=== PATIENT | male | born 1980 | race Caucasian/White ===

== ENCOUNTER 2023-09-03 16:26 | Emergency (ER) | payer OTHER, SELFPAY ==
[2023-09-03] VITALS (12 sets, daily range): BP systolic 154–188; BP diastolic 94–100; PULSE 63–80; RESP 16–24; TEMP 36.7; O2SAT 95–99; BMI 35.7
--- NOTE | 2023-09-03 16:39 | ECG_ITS ---
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
--- NOTE | 2023-09-03 16:40 | ED_ITS ---
HPI - General Adult General Chief complaint: Headache Stated complaint: hypertension Time Seen by Provider: 09/03/23 16:36 Source: patient Mode of arrival: walk-in History of Present Illness HPI narrative: Patient is a 43-year-old male who presents to the emergency department for the evaluation of high blood pressure and headaches. He states he and his significant other recently moved from [place]. He does not have a local PCP to manage his blood pressure medications. He takes metoprolol and losartan but has not been able to get his third blood pressure medication locally in the area. He does not know what this medication is supposed to be. He has no chest pain, shortness of breath, visual loss, peripheral paresthesias. He states approximately every 6 months he has been having issues where he has uncontrolled breakthrough hypertension and headaches and this feels similar. No medications taken prior to arrival. Related Data Home Medications Medication Instructions Recorded Confirmed metoprolol tartrate 50 mg tablet 50 mg PO BID 09/03/23 09/03/23 Previous Rx's Medication Instructions Recorded nifedipine 90 mg tablet,extended 90 mg PO DAILY #14 tabs 09/03/23 release Allergies Allergy/AdvReac Type Severity Reaction Status Date / Time No Known Drug Allergies Allergy Verified 09/03/23 16:34 Review of Systems ROS Constitutional Denies: fever or chills Ears, nose, mouth, and throat Denies: throat pain Cardiovascular Denies: chest pain Respiratory Denies: shortness of breath Gastrointestinal Denies: nausea, vomiting or diarrhea Musculoskeletal Denies: back pain or neck pain Integumentary/Breast Denies: rash Neurological Reports: headache and dizziness; Denies: numbness in extremities, weakness in extremities or lack of coordination Endocrine Denies: excessive urination [facility] Social History Smoking status: Current every day smoker Exam Narrative Exam Narrative: Gen.: Awake, alert, in no distress Head: Normocephalic, atraumatic ENT: Moist mucous membranes Respiratory: No respiratory distress, lungs clear bilaterally Cardio: Regular rate and rhythm Extremities: Moves extremities equally Psych: Normal mood and affect Neuro: No focal neuro deficit Skin: Warm, dry, intact Constitutional Vital Signs, click to edit/add: Last Vital Signs Temp 98.1 F 09/03/23 16:30 Pulse 70 09/03/23 17:20 Resp 19 09/03/23 17:20 BP 154/94 H 09/03/23 17:31 Pulse Ox 96 09/03/23 17:20 O2 Del Method Room Air 09/03/23 17:15 Course Vital Signs Vital signs: Vital Signs Temperature 98.1 F 09/03/23 16:30 Pulse Rate 80 09/03/23 16:30 Respiratory Rate 20 09/03/23 16:30 Blood Pressure 188/100 H 09/03/23 16:30 Pulse Oximetry 99 09/03/23 16:30 Oxygen Delivery Method Room Air 09/03/23 16:30 Temperature 98.1 F 09/03/23 16:30 Pulse Rate 70 09/03/23 17:20 Respiratory Rate 19 09/03/23 17:20 Blood Pressure 154/94 H 09/03/23 17:31 Pulse Oximetry 96 09/03/23 17:20 Oxygen Delivery Method Room Air 09/03/23 17:15 Medical Decision Making MDM Narrative Medical decision making narrative: EKG, basic lab studies are unremarkable and patient was medicated with IV Vasotec with repeat blood pressure 154/94. He has no focal neurodeficits in the ER. He was treated with Reglan and Benadryl for headache. He is able to find on his phone that he was previously prescribed nifedipine 90 mg extended release tablets. He was given a 2-week prescription of this until he can see his new PCP in the area, he was given a referral for a local primary care providers that are taking new patients. Follow-up with primary care and return to the ER if symptoms change or worsen. Medical Records Medical records reviewed: Yes I reviewed the patient's medical records Lab Data Labs: Lab Results 09/03/23 Range/Units 16:53 WBC 10.5 (4.0-11.0) 10^3/uL RBC 4.73 (4.70-6.10) 10^6/uL Hgb 13.9 L (14.0-18.0) g/dL Hct 40.4 L (42.0-54.0) % MCV 85.4 (80.0-94.0) fL MCH 29.4 (25.9-34.0) pg MCHC 34.4 (29.9-35.2) g/dL RDW 13.0 (11.0-15.0) % Plt Count 264 (150-450) 10^3/uL MPV 10.7 (9.5-13.5) fL Neut % (Auto) 65.8 (43.0-75.0) % Lymph % (Auto) 24.2 (20.5-60.0) % [place] % (Auto) 6.9 (1.7-12.0) % Eos % (Auto) 2.1 (0.9-7.0) % Baso % (Auto) 0.7 (0.2-2.0) % Neut # (Auto) 6.9 H (1.4-6.5) 10^3/uL Lymph # (Auto) 2.6 (1.2-3.8) 10^3/uL [place] # (Auto) 0.7 (0.3-0.8) 10^3/uL Eos # (Auto) 0.2 (0.0-0.7) 10^3/uL Baso # (Auto) 0.1 (0.0-0.1) 10^3/uL Abs Immat Gran (auto) 0.03 (0.00-0.03) 10^3/uL Imm/Tot Granulo (auto) 0.3 (0.0-0.5) % Sodium 136 (136-145) mmol/L Potassium 4.0 (3.5-5.1) mmol/L Chloride 104 (98-107) mmol/L Carbon Dioxide 23.8 (21.0-32.0) mmol/L Anion Gap 12.2 BUN 12.0 (7.0-18.0) mg/dL Creatinine 0.71 (0.70-1.30) mg/dL Est GFR ( Amer) >60 (>=60) Est GFR (Non-Af Amer) >60 (>=60) BUN/Creatinine Ratio 16.9 Glucose 178 H (74-106) mg/dL Calcium 8.5 (8.5-10.1) mg/dL Total Bilirubin 0.3 (0.2-1.0) mg/dL AST 16 (15-37) U/L ALT 24 (16-63) U/L Alkaline Phosphatase 72 (46-116) U/L Total Protein 7.3 (6.4-8.2) g/dL Albumin 3.5 (3.4-5.0) g/dL Globulin 3.8 g/dL Albumin/Globulin Ratio 0.9 ECG Data Attestation: I personally reviewed and interpreted this ECG as follows: (Normal sinus rhythm at a rate of 69, no acute ST elevation or ectopy. EKG reviewed by attending physician) Discharge Plan Discharge Chief Complaint: Headache Clinical Impression: Hypertension Patient Disposition: Home, Self-Care Time of Disposition Decision: 17:40 Condition: Good Prescriptions / Home Meds: New nifedipine 90 mg tablet extended release 90 mg PO DAILY Qty: 14 0RF No Action metoprolol tartrate 50 mg tablet 50 mg PO BID Instructions: Hypertension (ED) Stand Alone Forms: Portal Instructions Referrals: Physician,Non-Staff, MD [Primary Care Provider] - 1 week
[2023-09-03] MEDS: DIPHENHYDRAMINE HCL 50 MG/ML (1ML) VIAL 25 MG IV (17:00)
[2023-09-03] MEDS: METOCLOPRAMIDE HCL 10 MG/2 ML VIAL IVP (17:00)
[2023-09-03 17:01] LABS: Basophils Absolute Auto 0.1 10^3/uL (0.0-0.1); Basophils Percent Auto 0.7 % (0.2-2.0); Eosinophils Absolute Auto 0.2 10^3/uL (0.0-0.7); Eosinophils Percent Auto 2.1 % (0.9-7.0); Hematocrit 40.4 % (42.0-54.0); Hemoglobin 13.9 g/dL (14.0-18.0); Immature Granulocytes Abs Auto 0.03 10^3/uL (0.00-0.03); Immature Granulocytes Pct Auto 0.3 % (0.0-0.5); Lymphocytes Absolute Auto 2.6 10^3/uL (1.2-3.8); Lymphocytes Percent Auto 24.2 % (20.5-60.0); Mean Corpuscular HGB Conc 34.4 g/dL (29.9-35.2); Mean Corpuscular Hemoglobin 29.4 pg (25.9-34.0); Mean Corpuscular Volume 85.4 fL (80.0-94.0); Mean Platelet Volume 10.7 fL (9.5-13.5); Monocytes Absolute Auto 0.7 10^3/uL (0.3-0.8); Monocytes Percent Auto 6.9 % (1.7-12.0); Neutrophils Absolute Auto 6.9 10^3/uL (1.4-6.5); Neutrophils Percent Auto 65.8 % (43.0-75.0); Platelet Count 264 10^3/uL (150-450); Red Blood Count 4.73 10^6/uL (4.70-6.10); White Blood Count 10.5 10^3/uL (4.0-11.0)
[2023-09-03] MEDS: ENALAPRILAT DIHYDRATE 1.25 MG/ML VIAL IV (17:01)
[2023-09-03 17:15] LABS: Alanine Aminotransferase 24 U/L (16-63); Albumin Globulin Ratio 0.9; Albumin Level 3.5 g/dL (3.4-5.0); Alkaline Phosphatase 72 U/L (46-116); Anion Gap 12.2; Aspartate Amino Transferase 16 U/L (15-37); BUN Creatinine Ratio 16.9; Bilirubin Total 0.3 mg/dL (0.2-1.0); Calcium 8.5 mg/dL (8.5-10.1); Carbon Dioxide 23.8 mmol/L (21.0-32.0); Chloride 104 mmol/L (98-107); Estimated GFR (African America >60 (>=60); Estimated GFR (Non-African Ame >60 (>=60); Globulin 3.8 g/dL; Glucose 178 mg/dL (74-106); Sodium 136 mmol/L (136-145); Total Protein 7.3 g/dL (6.4-8.2)
== END 2023-09-03 17:51 | disposition home or self-care (01) ==
PROVIDERS: Physician Assistant; Emergency Provider Emergency Medicine
DX: I10 Essential (primary) hypertension (principal); R51.9 Headache, unspecified; Z79.899 Other long term (current) drug therapy; F17.210 Nicotine dependence, cigarettes, uncomplicated
CPT/HCPCS: 36415; 80053; 85025; 93005; 96374; 96375; 99285; J1200; J2765

== ENCOUNTER 2023-09-25 15:11 | Emergency (ER) | payer OTHER, SELFPAY ==
[2023-09-25 15:21] VITALS: BP 217/100; PULSE 85; RESP 20; TEMP 36.5; O2SAT 96; BMI 38.0
--- OUTSIDE RECORDS SUMMARY | 2023-09-25 15:32 | XMS_ITS | CCD ---
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 Comment on above: Performed By: #### B MPX, TROPI, DIME, CDP #### [address] [place], [place] [id number] Back Tufter: Soraya Simpson MD MCV (RBC) [Entitic vol] 87.3 fL Normal 82.6-102.9 [facility] Comment on above: Performed By: #### B MPX, TROPI DIME, CDP #### [address] [place], [place] [id number] Back Tufter: Soraya Simpson MD NRBC Automated 0.0 per 100 WBC Normal 0.0 [facility] Comment on above: Performed By: #### B MPX, TROPI, DIME, CDP #### [address] [place], [facility]83 Back Tufter: Soraya Simpson MD Platelet mean volume (Bld) [Entitic vol] 10.2 fL Normal 8.1-13.5 [facility] Comment on above: Performed By: #### B MPX, TROPI DIME, CDP #### [address] [place], [facility]83 Back Tufter: Soraya Simpson MD Platelets (Bld) [#/Vol] 290 10*3/uL Normal 138-453 [facility] Comment on above: Performed By: #### B MPX, TROPI, DIME, CDP #### [address] [place], [place] [id number] Back Tufter: Soraya Simpson MD RBC (Bld) [#/Vol] 5.28 10*6/uL Normal 4.21-5.77 [facility] Comment on above: Performed By: #### B MPX, TROPI, DIME, CDP #### [address] [place], [place] [id number] Back Tufter: Soraya Simpson MD WBC (Bld) [#/Vol] 14.7 10*3/uL High 3.5-11.3 [facility] Comment on above: Performed By: #### B MPX, TROPI, DIME, CDP #### [facility] [address] [place] [address] Back Tufter: Soraya Simpson MD Auto Diff Performed NOT REPORTED Normal [facility] Comment on above: Performed By: #### B MPX, TROPI, DIME, CDP #### [facility] [address] [place] [address] Back Tufter: Soraya Simpson MD Platelet Comment NOT REPORTED Normal [facility] Comment on above: Performed By: #### B MPX, TROPI, DIME, CDP #### [address] [place] [address] Back Tufter: Soraya Simpson MD RBC morphology finding Nom (Bld) NOT REPORTED Normal [facility] Comment on above: Performed By: #### B MPX, TROPI, DIME, CDP #### [facility] [address] [place] [address] [place] [address] Back Tufter: Soraya Simpson MD WBC Morphology NOT REPORTED Normal [facility] Comment on above: Performed By: #### B MPX, TROPI, DIME, CDP #### [facility] [address] [place] [address] [place] [address] Back Tufter: Soraya Simpson MD COVID-19, RapidOrdered By: Trinidad Kwok on 06-09-2021 SARS-CoV-2 (COVID-19) RNA FERMIN+probe Ql (Unsp spec) Not detected Not Detected [facility] Work Phone: Comment on above: Rapid NAAT: The specimen is NEGATIVE for SARS-CoV-2, the novel coronavirus associated with COVID-19. The ID NOW COVID-19 assay is designed to detect the virus that causes COVID-19 in patients with signs and symptoms of infection who are suspected of COVID-19. An individual without symptoms of COVID-19 and who is not shedding SARS-CoV-2 virus would expect to have a negative (not detected) result in this assay. Negative results should be treated as presumptive and, if inconsistent with clinical signs and symptoms or necessary for patient management, should be tested with an alternative molecular assay. Negative results do not preclude SARS-CoV-2 infection and should not be used as the sole basis for patient management decisions. Fact sheet for Healthcare Providers: https://www.fda.gov/media/039115/download Fact sheet for Patients: https://www.fda.gov/media/130678/download Methodology: Isothermal Nucleic Acid Amplification Specimen Description .NASOPHARYNGEAL SWAB [facility] [employer] Phone: [facility] [employer] Phone: D-Dimer Teston 06-09-2021 D-Dimer Test <0.27 Normal 0.00-0.59 [facility] Comment on above: Result Comment: When combined with a low clinical probability, a D dimer value of <0.50 mg/L FEU is considered negative for DVT and PE (negative predictive value of 98%, sensitivity of 97%). If this test is not being used to help rule out DVT and PE, then the following reference range should be utilized: 0.00 - 0.59 mg/L FEU. The D-Dimer assay is intended for use as an aid in the diagnosis of venous thromboembolism (DVT and PE) and the results should be interpreted in conjunction with the patient's medical history, clinical presentation, and other findings. Elevated levels of D-dimer activity can be seen in any state of coagulation activation and is not recommended in patients with therapeutic dose anticoagulant therapy for >24 hours, fibrinolytic therapy within the previous 7 days, trauma or surgery within the previous 4 weeks, disseminated malignancies, aortic aneurysm, sepsis, severe infections, pneumonia, severe skin infections, liver cirrhosis, advanced age, coronary disease, diabetes, and . A very low percentage of patients with DVT may yield D-dimer results below the cutoff of 0.5 mg/L FEU. This is known to be more prevalent in patients with distal DVT. Performed By: #### B MPRozEMELY DIME, CDP #### [facility] [address] [place] [address] Back Tufter: Soraya Simpson MD D-Dimer, QuantitativeOrdered By: Micheal Kwok on 06-09-2021 D-Dimer, Quant <0.27 [employer] Phone: Comment on above: When combined with a low clinical probability, a D dimer value of <0.50 mg/L FEU is considered negative for DVT and PE (negative predictive value of 98%, sensitivity of 97%). If this test is not being used to help rule out DVT and PE, then the following reference range should be utilized: 0.00 - 0.59 mg/L FEU. The D-Dimer assay is intended for use as an aid in the diagnosis of venous thromboembolism (DVT and PE) and the results should be interpreted in conjunction with the patient's medical history, clinical presentation, and other findings. Elevated levels of D-dimer activity can be seen in any state of coagulation activation and is not recommended in patients with therapeutic dose anticoagulant therapy for >24 hours, fibrinolytic therapy within the previous 7 days, trauma or surgery within the previous 4 weeks, disseminated malignancies, aortic aneurysm, sepsis, severe infections, pneumonia, severe skin infections, liver cirrhosis, advanced age, coronary disease, diabetes, and . A very low percentage of patients with DVT may yield D-dimer results below the cutoff of 0.5 mg/L FEU. This is known to be more prevalent in patients with distal DVT. [employer] Phone: Laboratory - Chemistry and C hemistry - challengeOrdered By: Micheal Kwok on 06-09-2021 GFR/1.73 sq M.predicted MDRD (S/P/Bld) [Vol rate/Area] [employer] Phone: Comment on above: Average GFR for 40-4 9 years old: 99 mL/min/1.73sq m Chronic Kidney Disease: <60 mL/min/1.73sq m Kidney failure: <15 mL/min/1.73sq m eGFR calculated using average adult body mass. Additional eGFR calculator available at: http://www.globalrph.UltiZen/multiple_crcl_2012.htm Stage 1: Some kidney damage normal GFR Stage 2: Mild kidney damage GFR 60-89 Stage 3: Moderate kidney damage GFR 30-59 Stage 4: Severe kidney damage GFR 15-29 Stage 5: Severe kidney damage GFR <15 ESRD - chronic treatment by dialysis or transplant [id number] 06-09-2021 SARS-CoV-2 (COVID-19) RNA FERMIN+probe Ql (Unsp spec) Not detected Normal NOTDET [facility] Comment on above: Result Comment: Rapid NAAT: The specimen is NEGATIVE for SARS-CoV-2, the novel coronavirus associated with COVID-19. The ID NOW COVID-19 assay is designed to detect the virus that causes COVID-19 in patients with signs and symptoms of infection who are suspected of COVID-19. An individual without symptoms of COVID-19 and who is not shedding SARS-CoV-2 virus would expect to have a negative (not detected) result in this assay. Negative results should be treated as presumptive and, if inconsistent with clinical signs and symptoms or necessary for patient management, should be tested with an alternative molecular assay. Negative results do not preclude SARS-CoV-2 infection and should not be used as the sole basis for patient management decisions. Fact sheet for Healthcare Providers: https://www.fda.gov/media/669481/download Fact sheet for Patients: https://www.fda.gov/media/652661/download Methodology: Isothermal Nucleic Acid Amplification Performed By: #### C OVRB #### [facility] [address] [place] [address] Back Tufter: Soraya Simpson MD Troponinon 06-09-2021 Troponin, High Sens 8 ng/L Normal 0-22 [facility] Comment on above: Result Comment: High Sensitivity Troponin values cannot be compared with other Troponin methodologies. Patients with high levels of Biotin oral intake (i.e >5mg/day) may have falsely decreased Troponin levels. Samples collected within 8 hours of biotin intake may require additional information for diagnosis. Performed By: #### B MPX, TROPI, DIME, CDP #### [facility] [address] [place] [id number] Back Tufter: Soraya Simpson MD Troponin Interp. NOT REPORTED Normal [facility] Comment on above: Performed By: #### B MPX, TROPI, DIME, CDP #### [facility] [address] [place], [place] [phone] Back Tufter: Soraya Simpson MD Troponin T NOT REPORTED Normal <0.03 [facility] Comment on above: Performed By: #### B MPX, TROPI, DIME, CDP #### [facility] [address] [place], [place] [phone] Back Tufter: Soraya Simpson MD TroponinOrdered By: Micheal Kwok on 06-09-2021 Troponin Interp NOT REPORTED [employer] Phone: Troponin T NOT REPORTED <0.03 ng/mL [facility] Phone: Troponin, High Sensitivity 8 ng/L 0 - 22 ng/L [facility] [employer] Phone: Comment on above: High Sensitivity Troponin values cannot be compared with other Troponin methodologies. Patients with high levels of Biotin oral intake (i.e >5mg/day) may have falsely decreased Troponin levels. Samples collected within 8 hours of biotin intake may require additional information for diagnosis. [employer] Phone: XR CHEST PORTABLEon 06-09-20 XR CHEST PORTABLE EXAMINATION: ONE XRAY VIEW OF THE CHEST 06/09/2021 5:11 am COMPARISON: Chest portable June 07, 2021. HISTORY: ORDERING SYSTEM PROVIDED HISTORY: Cough TECHNOLOGIST PROVIDED HISTORY: Cough FINDINGS: The heart is normal in size and configuration. The mediastinal contours are within normal limits. The lungs are well aerated. The pleural surfaces are normal and no evidence of a pleural effusion is seen. Bones and soft tissues are unremarkable. IMPRESSION: Unremarkable single portable AP chest. Interpreted by: Sadi Olmedo MD Signed by: Sadi Olmedo MD 06/09/21 Final result Normal [facility] XR CHEST PORTABLEOrdered By: Micheal Kwok on 06-09-2021 Unremarkable single portable AP chest. [employer] Phone: EXAMINATION: ONE XRA Y VIEW OF THE CHEST 06/09/2021 5:11 am COMPARISON: Chest portable June 07, 2021. HISTORY: ORDERING SYSTEM PROVIDED HISTORY: Cough TECHNOLOGIST PROVIDED HISTORY: Cough FINDINGS: The heart is normal in size and configuration. The mediastinal contours are within normal limits. The lungs are well aerated. The pleural surfaces are normal and no evidence of a pleural effusion is seen. Bones and soft tissues are unremarkable. [employer] Phone: Jasen, pn Incoming Radiant Results From [employer] - 06/09/2021 6:01 AM EDT EXAMINATION: ONE XRAY VIEW OF THE CHEST 06/09/2021 5:11 am COMPARISON: Chest portable June 07, 2021. HISTORY: ORDERING SYSTEM PROVIDED HISTORY: Cough TECHNOLOGIST PROVIDED HISTORY: Cough FINDINGS: The heart is normal in size and configuration. The mediastinal contours are within normal limits. The lungs are well aerated. The pleural surfaces are normal and no evidence of a pleural effusion is seen. Bones and soft tissues are unremarkable. IMPRESSION: Unremarkable single portable AP chest. [employer] Phone: [employer] Phone: COVID-19, RapidOrdered By: Geovani Tapia on 06-07-2021 SARS-CoV-2 (COVID-19) RNA FERMIN+probe Ql (Unsp spec) Not detected Not Detected [employer] Phone: Comment on above: Rapid NAAT: The specimen is NEGATIVE for SARS-CoV-2, the novel coronavirus associated with COVID-19. The ID NOW COVID-19 assay is designed to detect the virus that causes COVID-19 in patients with signs and symptoms of infection who are suspected of COVID-19. An individual without symptoms of COVID-19 and who is not shedding SARS-CoV-2 virus would expect to have a negative (not detected) result in this assay. Negative results should be treated as presumptive and, if inconsistent with clinical signs and symptoms or necessary for patient management, should be tested with an alternative molecular assay. Negative results do not preclude SARS-CoV-2 infection and should not be used as the sole basis for patient management decisions. Fact sheet for Healthcare Providers: https://www.fda.gov/media/314865/download Fact sheet for Patients: https://www.fda.gov/media/604296/download Methodology: Isothermal Nucleic Acid Amplification Specimen Description .NASOPHARYNGEAL SWAB [facility] [employer] Phone: [facility] [employer] Phone: [id number] 06-07-2021 SARS-CoV-2 (COVID-19) RNA FERMIN+probe Ql (Unsp spec) Not detected Normal [facility] Comment on above: Result Comment: Rapid NAAT: The specimen is NEGATIVE for SARS-CoV-2, the novel coronavirus associated with COVID-19. The ID NOW COVID-19 assay is designed to detect the virus that causes COVID-19 in patients with signs and symptoms of infection who are suspected of COVID-19. An individual without symptoms of COVID-19 and who is not shedding SARS-CoV-2 virus would expect to have a negative (not detected) result in this assay. Negative results should be treated as presumptive and, if inconsistent with clinical signs and symptoms or necessary for patient management, should be tested with an alternative molecular assay. Negative results do not preclude SARS-CoV-2 infection and should not be used as the sole basis for patient management decisions. Fact sheet for Healthcare Providers: https://www.fda.gov/media/830141/download Fact sheet for Patients: https://www.fda.gov/media/523111/download Methodology: Isothermal Nucleic Acid Amplification Performed By: #### C OVRB #### [facility] [address] [place] [address] Back Tufter: Soraya Simpson MD XR CHEST PORTABLEon 06-07-20 21 XR CHEST PORTABLE EXAMINATION: ONE XRAY VIEW OF THE CHEST 06/07/2021 2:53 pm COMPARISON: 02/17/2018 HISTORY: ORDERING SYSTEM PROVIDED HISTORY: cough, chest pain TECHNOLOGIST PROVIDED HISTORY: cough, chest pain FINDINGS: The lungs are without acute focal process. There is no effusion or pneumothorax. The cardiomediastinal silhouette is without acute process. The osseous structures are without acute process. IMPRESSION: No acute process. Interpreted by: Ger Morin MD Signed by: Ger Morin MD 06/07/21 Final result Normal [facility] XR CHEST PORTABLEOrdered By: Linette Tapia on 06-07-2021 No acute process. [employer] Phone: EXAMINATION: ONE XRA Y VIEW OF THE CHEST 06/07/2021 2:53 pm COMPARISON: 02/17/2018 HISTORY: ORDERING SYSTEM PROVIDED HISTORY: cough, chest pain TECHNOLOGIST PROVIDED HISTORY: cough, chest pain FINDINGS: The lungs are without acute focal process. There is no effusion or pneumothorax. The cardiomediastinal silhouette is without acute process. The osseous structures are without acute process. [employer] Phone: Jasen, [facility] Incoming Radiant Results From [employer] - 06/07/2021 6:16 PM EDT EXAMINATION: ONE XRAY VIEW OF THE CHEST 06/07/2021 2:53 pm COMPARISON: 02/17/2018 HISTORY: ORDERING SYSTEM PROVIDED HISTORY: cough, chest pain TECHNOLOGIST PROVIDED HISTORY: cough, chest pain FINDINGS: The lungs are without acute focal process. There is no effusion or pneumothorax. The cardiomediastinal silhouette is without acute process. The osseous structures are without acute process. IMPRESSION: No acute process. [employer] Phone: [facility] Phone: CBC AUTO DIFFon 02-11-2021 BASO # 0.1 103/ul Normal 0.0-0.1 [facility] Comment on above: Performed By: #### C BC #### [facility] [address] [place], [place] [address] Lora Waleska Basophils/100 WBC (Bld) 0.5 % Normal 0.2-2.0 [facility] Comment on above: Performed By: #### C BC #### [facility] [address] [place], [place] [address] Lora Waleska EO # 0.1 103/ul Normal 0.0-0.7 [facility] Comment on above: Performed By: #### C BC #### [facility] [address] [place] [address] Lora Waleska Eosinophils/100 WBC (Bld) 1.0 % Normal 0.9-7.0 [facility] Comment on above: Performed By: #### C BC #### [facility] [address] [place] [address] Lora Waleska Erythrocyte distribution width (RBC) [Ratio] 13.3 % Normal 11.0-15.0 [facility] Comment on above: Performed By: #### C BC #### [facility] [address] [place] [address] Lora Waleska Hematocrit (Bld) [Volume fraction] 42.5 % Normal 42.0-54.0 [facility] Comment on above: Performed By: #### C BC #### [facility] [address] [place] [address] Lora Waleska Hemoglobin (Bld) [Mass/Vol] 14.5 g/dL Normal 14.0-18.0 [facility] Comment on above: Performed By: #### C BC #### [facility] [address] [place] [address] Lora Waleska IG # 0.05 10e3/ul Critically high 0.00-0.03 [facility] Comment on above: Performed By: #### C BC #### [facility] [address] [place] [address] Lora Waleska IG % 0.3 % Normal 0.0-0.5 [facility] Comment on above: Performed By: #### C BC #### [facility] [address] [place], [place] [address] Lora Waleska LYMPH # 3.4 103/ul Normal 1.2-3.8 [facility] Comment on above: Performed By: #### C BC #### [facility] [address] [place] [address] Lora Waleska Lymphocytes/100 WBC (Bld) 23.1 % Normal 20.5-60.0 [facility] Comment on above: Performed By: #### C BC #### [facility] [address] [place] [address] Lora Waleska MANUAL DIFF REQ NO Normal [facility] Comment on above: Performed By: #### C BC #### [facility] [address] [place] [address] Loralyn Galeano MCH (RBC) [Entitic mass] 29.1 pg Normal 25.9-34.0 [facility] Comment on above: Performed By: #### C BC #### [facility] [address] [place], [place] [address] Loralyn Galeano MCHC (RBC) [Mass/Vol] 34.1 g/dL Normal 29.9-35.2 [facility] Comment on above: Performed By: #### C BC #### [facility] [address] [place], [place] [address] Loralyn Spenceen MCV (RBC) [Entitic vol] 85.3 fL Normal 80.0-94.0 [facility] Comment on above: Performed By: #### C BC #### [facility] [address] [place], [place] [address] Lora Waleska MONO # 0.9 103/ul Critically high 0.3-0.8 [facility] Comment on above: Performed By: #### C BC #### [facility] [address] [place], [place] [address] Lora Waleska Monocytes/100 WBC (Bld) 6.5 % Normal 1.7-12.0 [facility] Comment on above: Performed By: #### C BC #### [facility] [address] [place], [place] [address] Lora Waleska NEUT # 10.0 103/ul Critically high 1.4-6.5 [facility] Comment on above: Performed By: #### C BC #### [facility] [address] [place], [place] [address] Lora Waleska Neutrophils/100 WBC (Bld) 68.6 % Normal 43.0-75.0 [facility] Comment on above: Performed By: #### C BC #### [facility] [address] [place], [place] [address] Lora Galeano Platelet mean volume (Bld) [Entitic vol] 11.2 fL Normal 9.5-13.5 [facility] Comment on above: Performed By: #### C BC #### [facility] [address] [place] [address] Lora Galeano PLT 261 103/ul Normal 150-450 [facility] Comment on above: Performed By: #### C BC #### [facility] [address] [place] [address] Lora Spenceen RBC 4.98 106/ul Normal 4.70-6.10 [facility] Comment on above: Performed By: #### C BC #### [facility] [address] [place] [address] Lora Spenceen WBC 14.5 103/ul Critically high 4.0-11.0 [facility] Comment on above: Performed By: #### C BC #### [facility] [address] [place] [address] LSPINE WO CONon CT LSPINE WO CON EXAMINATION: CT LSPINE WO CON HISTORY: DORSALGIA, UNSPECIFIED COMPARISON: No relevant comparison available. TECHNIQUE: Axial, Coronal, and Sagittal images were created without IV contrast. Dose reduction techniques were achieved by using automated exposure control and/or adjustment of mA and/or kV according to patient size and/or use of iterative reconstruction technique. FINDINGS: VERTEBRAL BODIES: Normal alignment with no acute fracture or spondylolisthesis. Posterior decompression and bilateral transpedicular fusion L4-L5. Mild diffuse degenerative spondylosis and facet osteoarthropathy FACET JOINTS: No disruption or abnormal widening. DISCS: Multilevel disc space narrowing most significant at L3-L4 and L5-S1. Intervertebral spacer L5-S1 CENTRAL CANAL: No spinal stenosis or evidence of hemorrhage. PARASPINAL AREA: No definite visible mass. Nonobstructing left nephrolithiasis. IMPRESSION: No acute abnormality Electronically authenticated by: SORAYA STEWART Date: 2021-02-11 16:04 Normal [facility] PROF CHEM 8 (BAS METB)on Anion gap [Moles/Vol] 14.3 mmol/L Normal [facility] Comment on above: Performed By: #### B MP #### [facility] [address] [place] [address] Lora Waleska Calcium [Mass/Vol] 8.8 mg/dL Normal 8.4-10.2 [facility] Comment on above: Performed By: #### B MP #### [facility] [address] [place] [address] Lora Waleska Chloride [Moles/Vol] 104 mmol/L Normal 98-107 [facility] Comment on above: Performed By: #### B MP #### [facility] [address] [place] [address] Lora Waleska CO2 [Moles/Vol] 24.3 mmol/L Normal 22.0-30.0 [facility] Comment on above: Performed By: #### B MP #### [facility] [address] [place] [address] Lora Waleska Creatinine [Mass/Vol] 0.79 mg/dL Normal 0.66-1.25 [facility] Comment on above: Performed By: #### B MP #### [facility] [address] [place] [address] Lora Waleska EGFR-AF TURKISH >60 Normal >=60 [facility] Comment on above: Performed By: #### B MP #### [facility] [address] [place] [address] Lora Waleska EGFR-NON AF TURKISH >60 Normal >=60 [facility] Comment on above: Performed By: #### B MP #### [facility] [address] [place] [address] Lora Waleska Glucose [Mass/Vol] 107 mg/dL Critically high 74-106 T [facility] Comment on above: Performed By: #### B MP #### [facility] [address] [place] [address] Lora Waleska Potassium [Moles/Vol] 3.6 mmol/L Normal 3.4-5.0 [facility] Comment on above: Performed By: #### B MP #### [facility] [address] [place], [place] [address] Lora Waleska Sodium [Moles/Vol] 139 mmol/L Normal 137-145 [facility] Comment on above: Performed By: #### B MP #### [facility] [address] [place], [place] [address] Lora Waleska Urea nitrogen [Mass/Vol] 9.0 mg/dL Normal 9.0-20.0 [facility] Comment on above: Performed By: #### B MP #### [facility] [address] [place], [place] [address] Lora Waleska Urea nitrogen/Creatinine [Mass ratio] 11.4 mg/mg Normal [facility] Comment on above: Performed By: #### B MP #### [facility] [address] [place], [place] [address] Lora Galeano Amylaseon 06-13-2019 Amylase [Catalytic activity/Vol] 58 U/L Normal 28-100 [facility] Comment on above: Performed By: #### C BC, PT, CMPX, ALEJANDRO, LIP, MG, KAM, TRIG #### [facility] [address] [place], [place] [id number] Back Tufter: Sadi Gambino MD #### IOCAL #### [facility] [address] [place], [place] [id number] Back Tufter: hSa Nicholson MD Amylase [Catalytic activity/Vol] 58 U/L 28 - 100 U/L [place], [place] CBC Auto Differentialon Basophils (Bld) [#/Vol] 0.04 10*3/uL [place] Basophils/100 WBC (Bld) 0 % 0 - 2 % [place] Differential Type NOT REPORTED [place] Eosinophils (Bld) [#/Vol] 10*3/uL [place] Eosinophils/100 WBC (Bld) 0 % Low 1 - 4 % [place] Erythrocyte distribution width (RBC) [Ratio] 12.2 % 11.8 - 14.4 % [place] Hematocrit (Bld) [Volume fraction] 40.6 % Low 40.7 - 50.3 % [place] Hemoglobin (Bld) [Mass/Vol] 14.7 g/dL 13 - 17 g/dL [place] Immature granulocytes (Bld) [#/Vol] 0.10 10*3/uL [place] Immature granulocytes (Bld) [#/Vol] 1 % High 0 [place] Interpretation and review of laboratory results Abnormal [place] Lymphocytes (Bld) [#/Vol] 2.50 10*3/uL [place] Lymphocytes/100 WBC (Bld) 16 % Low 24 - 43 % [place] MCH (RBC) [Entitic mass] 30.9 pg 25.2 - 33.5 pg [place] MCHC (RBC) [Mass/Vol] 36.2 g/dL High 28.4 - 34.8 g/dL [place] MCV (RBC) [Entitic vol] 85.5 fL 82.6 - 102.9 fL [place] Monocytes (Bld) [#/Vol] 1.08 10*3/uL [place] Monocytes/100 WBC (Bld) 7 % 3 - 12 % [place] Platelet mean volume (Bld) [Entitic vol] 10.7 fL 8.1 - 13.5 fL [place] Platelets (Bld) [#/Vol] 299 10*3/uL [place] Platelets (Bld) [#/Vol] NOT REPORTED [place] RBC (Bld) [#/Vol] 4.75 10*6/uL 4.21 - 5.7 7 m/uL [place] RBC morphology finding Nom (Bld) NOT REPORTED [place] Segmented neutrophils/100 WBC (Bld) 77 % High 36 - 65 % [place] Segs Absolute 12.16 High [place] WBC (Bld) [#/Vol] 15.9 10*3/uL High [facility] [place] WBC (Bld) [#/Vol] 0.0 10*3/uL 0.0 per 10 0 WBC [place] WBC Morphology NOT REPORTED [place] CBC with Diffon 06-13-2019 Abs. Basophil 0.04 k/uL Normal 0.00-0.20 [facility] Comment on above: Performed By: #### C BC, PT, CMPX, ALEJANDRO, LIP, MG, KAM, TRIG #### [facility] [place] [address] Back Tufter: Sadi Gambino MD #### IOCAL #### [address] [address] Back Tufter: Sha Nicholson MD Abs.Imm.Granulocyte 0.10 k/uL Normal 0.00-0.30 [facility] Comment on above: Performed By: #### C BC, PT, CMPX, ALEJANDRO, LIP, MG, KAM, TRIG #### [facility] [address] [place] [address] Back Tufter: Sadi Gambino MD #### IOCAL #### [address] [address] Back Tufter: Sha Nicholson MD Abs.Neutrophil (Seg) 12.16 k/uL High 1.50-8.10 [facility] Comment on above: Performed By: #### C BC, PT, CMPX, ALEJANDRO, LIP, MG, KAM, TRIG #### [facility] [address] [place] [address] Back Tufter: Sadi Gambino MD #### IOCAL #### [address] [address] Back Tufter: Sha Nicholson MD Basophils/100 WBC (Bld) 0 % Normal 0-2 M [facility] Comment on above: Performed By: #### C BC, PT, CMPX, ALEJANDRO, LIP, MG, KAM, TRIG #### [facility] [address] [place] [address] Back Tufter: Sadi Gambino MD #### IOCAL #### [address] [address] Back Tufter: Sha Nicholson MD Eosinophils (Bld) [#/Vol] 10*3/uL Normal 0.00-0.44 [facility] Comment on above: Performed By: #### C BC, PT, CMPX, ALEJANDRO, LIP, MG, KAM, TRIG #### [facility] [address] [place] [address] Back Tufter: Sadi Gambino MD #### IOCAL #### [address] [address] Back Tufter: Sha Nicholson MD Eosinophils/100 WBC (Bld) 0 % Low 1-4 [facility] Comment on above: Performed By: #### C BC, PT, CMPX, ALEJANDRO, LIP, MG, KAM, TRIG #### [facility] [address] [place] [address] Back Tufter: Sadi Gambino MD #### IOCAL #### [address] [address] Back Tufter: Sha Nicholson MD Erythrocyte distribution width (RBC) [Ratio] 12.2 % Normal 11.8-14.4 [facility] Comment on above: Performed By: #### C BC, PT, CMPX, ALEJANDRO, LIP, MG, KAM, TRIG #### [facility] [address] [place] [address] Back Tufter: Sadi Gambino MD #### IOCAL #### [address] [address] Back Tufter: Sha Nicholson MD Hematocrit (Bld) [Volume fraction] 40.6 % Low 40.7-50.3 [facility] Comment on above: Performed By: #### C BC, PT, CMPX, ALEJANDRO, LIP, MG, KAM, TRIG #### [facility] [address] [place] [address] Back Tufter: Sadi Gambino MD #### IOCAL #### [place] [address] Back Tufter: Sha Nicholson MD Hemoglobin (Bld) [Mass/Vol] 14.7 g/dL Normal 13.0-17.0 [facility] Comment on above: Performed By: #### C BC, PT, CMPX, ALEJANDRO, LIP, MG, KAM, TRIG #### [facility] [address] [place] [address] Back Tufter: Sadi Gambino MD #### IOCAL #### [place] [address] Back Tufter: Sha Nicholson MD Immature granulocytes (Bld) [#/Vol] 1 % High 0 [facility] Comment on above: Performed By: #### C BC, PT, CMPX, ALEJANDRO, LIP, MG, KAM, TRIG #### [facility] [address] [place] [address] Back Tufter: Sadi Gambino MD #### IOCAL #### [place] [address] Back Tufter: Sha Nicholson MD Lymphocytes (Bld) [#/Vol] 2.50 10*3/uL Normal 1.10-3.70 [facility] Comment on above: Performed By: #### C BC, PT, CMPX, ALEJANDRO, LIP, MG, KAM, TRIG #### [facility] [address] [place] [address] Back Tufter: Sadi Gambino MD #### IOCAL #### [address] [address] Back Tufter: Sha Nicholson MD Lymphocytes/100 WBC (Bld) 16 % Low 24-43 [facility] Comment on above: Performed By: #### C BC, PT, CMPX, ALEJANDRO, LIP, MG, KAM, TRIG #### [facility] [address] [place] [address] Back Tufter: Sadi Gambino MD #### IOCAL #### [address] [address] Back Tufter: Sha Nicholson MD MCH (RBC) [Entitic mass] 30.9 pg Normal 25.2-33.5 [facility] Comment on above: Performed By: #### C BC, PT, CMPX, ALEJANDRO, LIP, MG, KAM, TRIG #### [facility] [address] [place] [address] Back Tufter: Sadi Gambino MD #### IOCAL #### [address] [address] Back Tufter: Sha Nicholson MD MCHC (RBC) [Mass/Vol] 36.2 g/dL High 28.4-34.8 [facility] Comment on above: Performed By: #### C BC, PT, CMPX, ALEJANDRO, LIP, MG, KAM, TRIG #### [facility] [address] [place] [address] Back Tufter: Sadi Gambino MD #### IOCAL #### [address] [address] Back Tufter: Sha Nicholson MD MCV (RBC) [Entitic vol] 85.5 fL Normal 82.6-102.9 M [facility] Comment on above: Performed By: #### C BC, PT, CMPX, ALEJANDRO, LIP, MG, KAM, TRIG #### [facility] [address] [place] [address] Back Tufter: Sadi Gambino MD #### IOCAL #### [address] [address] Back Tufter: Sha Nicholson MD Monocytes (Bld) [#/Vol] 1.08 10*3/uL Normal 0.10-1.20 [facility] Comment on above: Performed By: #### C BC, PT, CMPX, ALEJANDRO, LIP, MG, KAM, TRIG #### [facility] [address] [place] [address] Back Tufter: Sadi Gambino MD #### IOCAL #### [address] [address] Back Tufter: Sha Nicholson MD Monocytes/100 WBC (Bld) 7 % Normal 3-12 M [facility] Comment on above: Performed By: #### C BC, PT, CMPX, ALEJANDRO, LIP, MG, KAM, TRIG #### [facility] [address] [place] [address] Back Tufter: Sadi Gambino MD #### IOCAL #### [address] [address] Back Tufter: Sha Nicholson MD Neutrophil (Seg) 77 % High 36-65 [facility] [place] Comment on above: Performed By: #### C BC, PT, CMPX, ALEJANDRO, LIP, MG, KAM, TRIG #### [facility] [address] [place] [address] Back Tufter: Sadi Gambino MD #### IOCAL #### [address] [address] Back Tufter: Sha Nicholson MD NRBC Automated 0.0 per 100 WBC Normal 0.0 [facility] Comment on above: Performed By: #### C BC, PT, CMPX, ALEJANDRO, LIP, MG, KAM, TRIG #### [facility] [address] [place] [address] Back Tufter: Sadi Gambino MD #### IOCAL #### [address] [address] Back Tufter: Sha Nicholson MD Platelet mean volume (Bld) [Entitic vol] 10.7 fL Normal 8.1-13.5 [facility] Comment on above: Performed By: #### C BC, PT, CMPX, ALEJANDRO, LIP, MG, KAM, TRIG #### [facility] [place] [address] Back Tufter: Sadi Gambino MD #### IOCAL #### [address] [address] Back Tufter: Sha Nicholson MD Platelets (Bld) [#/Vol] 299 10*3/uL Normal 138-453 [facility] Comment on above: Performed By: #### C BC, PT, CMPX, ALEJANDRO, LIP, MG, KAM, TRIG #### [facility] [place] [address] Back Tufter: Sadi Gambino MD #### IOCAL #### [address] [address] Back Tufter: Sha Nicholson MD RBC (Bld) [#/Vol] 4.75 10*6/uL Normal 4.21-5.77 [facility] Comment on above: Performed By: #### C BC, PT, CMPX, ALEJANDRO, LIP, MG, KAM, TRIG #### [facility] [address] [place] [address] Back Tufter: Sadi Gambino MD #### IOCAL #### [address] [address] Back Tufter: Sha Nicholson MD WBC (Bld) [#/Vol] 15.9 10*3/uL High 3.5-11.3 [facility] Comment on above: Performed By: #### C BC, PT, CMPX, ALEJANDRO, LIP, MG, KAM, TRIG #### [facility] [address] [place] [address] Back Tufter: Sadi Gambino MD #### IOCAL #### [address] [address] Back Tufter: Sha Nicholson MD Auto Diff Performed NOT REPORTED Normal [facility] Comment on above: Performed By: #### C BC, PT, CMPX, ALEJANDRO, LIP, MG, KAM, TRIG #### [facility] [address] [place] [address] Back Tufter: Sadi Gambino MD #### IOCAL #### [address] [address] Back Tufter: Sha Nicholson MD Platelets (Bld) [#/Vol] NOT REPORTED Normal [facility] Comment on above: Performed By: #### C BC, PT, CMPX, ALEJANDRO, LIP, MG, KAM, TRIG #### [facility] [address] [place] [address] Back Tufter: Sadi Gambino MD #### IOCAL #### [address] [address] Back Tufter: Sha Nicholson MD RBC morphology finding Nom (Bld) NOT REPORTED Normal [facility] Comment on above: Performed By: #### C BC, PT, CMPX, ALEJANDRO, LIP, MG, KAM, TRIG #### [facility] [address] [place] [address] Back Tufter: Sadi Gambino MD #### IOCAL #### [address] [place] [place] [address] Back Tufter: Sha Nicholson MD WBC Morphology NOT REPORTED Normal [facility] Comment on above: Performed By: #### C BC, PT, CMPX, ALEJANDRO, LIP, MG, KAM, TRIG #### [facility] [address] [place], [place] [phone] Back Tufter: Sadi Gambino MD #### IOCAL #### [address] [address] Back Tufter: Sha Nicholson MD Comp Metab w/Bili Pron 06-13 (cont.) Normal [facility] Comment on above: Result Comment: Aver age GFR for 30-39 years old: 107 mL/min/1.73sq m Chronic Kidney Disease: <60 mL/min/1.73sq m Kidney failure: <15 mL/min/1.73sq m eGFR calculated using average adult body mass. Additional eGFR calculator available at: http://www.[employer].com/multiple_crcl_2012.htm Performed By: #### C BC, PT, CMPX, ALEJANDRO, LIP, MG, KAM, TRIG #### [facility] [address] [place] [address] Back Tufter: Sadi Gambino MD #### IOCAL #### [facility] [address] [place] [address] Back Tufter: Sha Nicholson MD Albumin [Mass/Vol] 4.3 g/dL Normal 3.5-5.2 [facility] Comment on above: Performed By: #### C BC, PT, CMPX, ALEJANDRO, LIP, MG, KAM, TRIG #### [facility] [address] [place] [address] Back Tufter: Sadi Gambino MD #### IOCAL #### [address] [address] Back Tufter: Sha Nicholson MD Alkaline Phos 91 U/L Normal 40-129 [facility] Comment on above: Performed By: #### C BC, PT, CMPX, ALEJANDRO, LIP, MG, KAM, TRIG #### [facility] [address] [place] [address] Back Tufter: Sadi Gambino MD #### IOCAL #### [address] [address] Back Tufter: Sha Nicholson MD ALT [Catalytic activity/Vol] 187 U/L High 5-41 [facility] Comment on above: Performed By: #### C BC, PT, CMPX, ALEJANDRO, LIP, MG, KAM, TRIG #### [facility] [address] [place] [address] Back Tufter: Sadi Gambino MD #### IOCAL #### [address] [address] Back Tufter: Sha Nicholosn MD Anion gap [Moles/Vol] 12 mmol/L Normal 9-17 [facility] Comment on above: Performed By: #### C BC, PT, CMPX, ALEJANDRO, LIP, MG, KAM, TRIG #### [facility] [address] [place] [address] Back Tufter: Sadi Gambino MD #### IOCAL #### [address] [address] Back Tufter: Sha Nicholson MD AST [Catalytic activity/Vol] 91 U/L High <40 [facility] Comment on above: Performed By: #### C BC, PT, CMPX, ALEJANDRO, LIP, MG, KAM, TRIG #### [facility] [address] [place] [address] Back Tufter: Sadi Gambino MD #### IOCAL #### [address] [address] Back Tufter: Sha Nicholson MD Bilirubin Ql (U) 0.74 mg/dL Normal 0.3-1.2 [facility] Comment on above: Performed By: #### C BC, PT, CMPX, ALEJANDRO, LIP, MG, KAM, TRIG #### [facility] [address] [place] [address] Back Tufter: Sadi Gambino MD #### IOCAL #### [address] [address] Back Tufter: Sha Nicholson MD Bilirubin, Indirect 0.46 mg/dL Normal 0.00-1.00 [facility] Comment on above: Performed By: #### C BC, PT, CMPX, ALEJANDRO, LIP, MG, KAM, TRIG #### [facility] [place] [address] Back Tufter: Sadi Gambino MD #### IOCAL #### [address] [address] Back Tufter: Sha Nicholson MD Bilirubin.direct [Mass/Vol] 0.28 mg/dL Normal <0.31 [facility] Comment on above: Performed By: #### C BC, PT, CMPX, ALEJANDRO, LIP, MG, KAM, TRIG #### [facility] [address] [place] [address] Back Tufter: Sadi Gambino MD #### IOCAL #### [address] [address] Back Tufter: Sha Nicholson MD Calcium [Mass/Vol] 9.3 mg/dL Normal 8.6-10.4 [facility] Comment on above: Performed By: #### C BC, PT, CMPX, ALEJANDRO, LIP, MG, KAM, TRIG #### [facility] [address] [place] [address] Back Tufter: Sadi Gambino MD #### IOCAL #### [address] [address] Back Tufter: Sha Nicholson MD Chloride [Moles/Vol] 100 mmol/L Normal 98-107 [facility] Comment on above: Performed By: #### C BC, PT, CMPX, ALEJANDRO, LIP, MG, KAM, TRIG #### [facility] [address] [place] [address] Back Tufter: Sadi Gambino MD #### IOCAL #### [address] [address] Back Tufter: Sha Nicholson MD CO2 [Moles/Vol] 26 mmol/L Normal 20-31 [facility] Comment on above: Performed By: #### C BC, PT, CMPX, ALEJANDRO, LIP, MG, KAM, TRIG #### [facility] [address] [place] [address] Back Tufter: Sadi Gambino MD #### IOCAL #### [address] [address] Back Tufter: Sha Nicholson MD Creatinine [Mass/Vol] 0.56 mg/dL Low 0.70-1.20 [facility] Comment on above: Performed By: #### C BC, PT, CMPX, ALEJANDRO, LIP, MG, KAM, TRIG #### [facility] [address] [place] [address] Back Tufter: Sadi Gambino MD #### IOCAL #### [address] [address] Back Tufter: Sha Nicholson MD GFR, Amer >60 Normal >60 [facility] Comment on above: Performed By: #### C BC, PT, CMPX, ALEJANDRO, LIP, MG, KAM, TRIG #### [facility] [address] [place] [address] Back Tufter: Sadi Gambino MD #### IOCAL #### [address] [address] Back Tufter: Sha Nicholson MD GFR,non Amer >60 Normal >60 [facility] Comment on above: Performed By: #### C BC, PT, CMPX, ALEJANDRO, LIP, MG, KAM, TRIG #### [facility] [address] [place] [address] Back Tufter: Sadi Gambino MD #### IOCAL #### [address] [address] Back Tufter: Sha Nicholson MD Glucose [Mass/Vol] 119 mg/dL High 70-99 [facility] Comment on above: Performed By: #### C BC, PT, CMPX, ALEJANDRO, LIP, MG, KAM, TRIG #### [facility] [address] [place] [address] Back Tufter: Sadi Gambino MD #### IOCAL #### [address] [address] Back Tufter: Sha Nicholson MD Potassium [Moles/Vol] 3.9 mmol/L Normal 3.7-5.3 [facility] Comment on above: Performed By: #### C BC, PT, CMPX, ALEJANDRO, LIP, MG, KAM, TRIG #### [facility] [place] [address] Back Tufter: Sadi Gambino MD #### IOCAL #### [address] [address] Back Tufter: Sha Nicholson MD Protein [Mass/Vol] 7.1 g/dL Normal 6.4-8.3 [facility] Comment on above: Performed By: #### C BC, PT, CMPX, ALEJANDRO, LIP, MG, KAM, TRIG #### [facility] [address] [place] [address] Back Tufter: Sadi Gambino MD #### IOCAL #### [address] [address] Back Tufter: Sha Nicholson MD Sodium [Moles/Vol] 138 mmol/L Normal 135-144 [facility] Comment on above: Performed By: #### C BC, PT, CMPX, ALEJANDRO, LIP, MG, KAM, TRIG #### [facility] [place] [address] Back Tufter: Sadi Gambino MD #### IOCAL #### [address] [address] Back Tufter: Sha Nicholson MD Urea nitrogen [Mass/Vol] 8 mg/dL Normal 6-20 [facility] Comment on above: Performed By: #### C BC, PT, CMPX, ALEJANDRO, LIP, MG, KAM, TRIG #### [facility] [address] [place] [address] Back Tufter: Sadi Gambino MD #### IOCAL #### [address] [address] Back Tufter: Sha Nicholson MD Albumin/Globulin [Mass ratio] NOT REPORTED Normal 1.0-2.5 [facility] Comment on above: Performed By: #### C BC, PT, CMPX, ALEJANDRO, LIP, MG, KAM, TRIG #### [facility] [address] [place] [address] Back Tufter: Sadi Gambino MD #### IOCAL #### [address] [address] Back Tufter: Sha Nicholson MD Staging: NOT REPORTED Normal [facility] Comment on above: Performed By: #### C BC, PT, CMPX, ALEJANDRO, LIP, MG, KAM, TRIG #### [facility] [address] [place] [address] Back Tufter: Sadi Gambino MD #### IOCAL #### [address] [address] Back Tufter: Sha Nicholson MD Comp Metabolic w Bili Profil med 06-13-2019 Albumin [Mass/Vol] 4.3 g/dL 3.5 - 5.2 g/dL [place], [place] Albumin/Globulin [Mass ratio] NOT REPORTED [place] ALP [Catalytic activity/Vol] 91 U/L 40 - 129 U/L [place] ALT [Catalytic activity/Vol] 187 U/L High 5 - 41 U/L [place] Anion gap [Moles/Vol] 12 mmol/L 9 - 17 mmol/L [place] AST [Catalytic activity/Vol] 91 U/L High <40 [place] Bilirubin Ql (U) 0.74 mg/dL 0.3 - 1.2 mg/dL [place] Bilirubin, Indirect 0.46 mg/dL 0 - 1 mg/dL [place] Bilirubin.direct [Mass/Vol] 0.28 mg/dL <0.31 [place] Calcium [Mass/Vol] 9.3 mg/dL 8.6 - 10. 4 mg/dL [place] Chloride [Moles/Vol] 100 mmol/L 98 - 10 7 mmol/L [place] CO2 [Moles/Vol] 26 mmol/L 20 - 31 mmol/L [place] Creatinine [Mass/Vol] 0.56 mg/dL Low 0.7 - 1.2 mg/dL [place] GFR >60 >60 mL/min [place] GFR Non- >60 >60 mL/min [place] GFR/1.73 sq M predicted among non-blacks MDRD (S/P/Bld) [Vol rate/Area] NOT REPORTED [place] GFR/1.73 sq M predicted among non-blacks MDRD (S/P/Bld) [Vol rate/Area] [place] Comment on above: Average GFR for 30-3 9 years old: 107 mL/min/1.73sq m Chronic Kidney Disease: <60 mL/min/1.73sq m Kidney failure: <15 mL/min/1.73sq m eGFR calculated using average adult body mass. Additional eGFR calculator available at: http://www.[employer]/multiple_crcl_2012.htm Glucose [Mass/Vol] 119 mg/dL High 70 - 99 mg/dL [place] Interpretation and review of laboratory results Abnormal [place] Potassium [Moles/Vol] 3.9 mmol/L 3.7 - 5.3 mmol/L [place] Protein [Mass/Vol] 7.1 g/dL 6.4 - 8.3 g/dL [place] Sodium [Moles/Vol] 138 mmol/L 135 - 144 mmol/L [place] Urea nitrogen [Mass/Vol] 8 mg/dL 6 - 20 mg/dL [place] Lipaseon 06-13-2019 Lipase [Catalytic activity/Vol] 59 U/L Normal 13-60 [facility] Comment on above: Performed By: #### C BC, PT, CMPX, ALEJANDRO, LIP, MG, KAM, TRIG #### [facility] [address] [place], [place] [id number] Back Tufter: Sadi Gambino MD #### IOCAL #### [address] [place], [place] [id number] Back Tufter: Sha Nicholson MD Lipase [Catalytic activity/Vol] 59 U/L 13 - 60 U/L [place] Magnesiumon 06-13-2019 Magnesium [Mass/Vol] 1.9 mg/dL Normal 1.6-2.6 [facility] Comment on above: Performed By: #### C BC, PT, CMPX, ALEJANDRO, LIP, MG, KAM, TRIG #### [facility] [address] [place], [place] [phone] Back Tufter: Sadi Gambino MD #### IOCAL #### [address] [phone] Back Tufter: Sha Nicholson MD Magnesium [Mass/Vol] 1.9 mg/dL 1.6 - 2 .6 mg/dL [place], [place] Basic Metabolic Panelon -0 Anion gap [Moles/Vol] 11 mmol/L 9 - 17 mmol/L [place] Bun/Cre Ratio 20 [place] Calcium [Mass/Vol] 9.0 mg/dL 8.6 - 10. 4 mg/dL [place] Chloride [Moles/Vol] 101 mmol/L 98 - 10 7 mmol/L [place] CO2 [Moles/Vol] 24 mmol/L 20 - 31 mmol/L [place] Creatinine [Mass/Vol] 0.44 mg/dL Low 0.7 - 1.2 mg/dL [place] GFR >60 >60 mL/min [place], [place] GFR Non- >60 >60 mL/min [place] GFR/1.73 sq M predicted among non-blacks MDRD (S/P/Bld) [Vol rate/Area] NOT REPORTED [place] GFR/1.73 sq M predicted among non-blacks MDRD (S/P/Bld) [Vol rate/Area] [place], [place] Comment on above: Average GFR for 30-3 9 years old: 107 mL/min/1.73sq m Chronic Kidney Disease: <60 mL/min/1.73sq m Kidney failure: <15 mL/min/1.73sq m eGFR calculated using average adult body mass. Additional eGFR calculator available at: http://www.[employer]/multiple_crcl_2011.htm Glucose [Mass/Vol] 164 mg/dL High 70 - 99 mg/dL [place], [place] Interpretation and review of laboratory results Abnormal [place] Potassium [Moles/Vol] 4.1 mmol/L 3.7 - 5.3 mmol/L [place] Sodium [Moles/Vol] 136 mmol/L 135 - 144 mmol/L [place] Urea nitrogen [Mass/Vol] 9 mg/dL 6 - 20 mg/dL [place] Basic Metabolic Profon 06-12 (cont.) Normal [facility] Comment on above: Result Comment: Aver age GFR for 30-39 years old: 107 mL/min/1.73sq m Chronic Kidney Disease: <60 mL/min/1.73sq m Kidney failure: <15 mL/min/1.73sq m eGFR calculated using average adult body mass. Additional eGFR calculator available at: http://www.[employer]/multiple_crcl_2012.htm Performed By: #### C BC, PT, CMPX, ALEJANDRO, LIP, MG, KAM, TRIG #### [facility] [address] [place] [address] Back Tufter: Sadi Gambino MD #### IOCAL #### [address] [address] Back Tufter: Sha Nicholson MD Anion gap [Moles/Vol] 11 mmol/L Normal 9-17 [facility] Comment on above: Performed By: #### C BC, PT, CMPX, ALEJANDRO, LIP, MG, KAM, TRIG #### [facility] [address] [place] [address] Back Tufter: Sadi Gambino MD #### IOCAL #### [address] [address] Back Tufter: Sha Nicholson MD BUN/CRE Ratio 20 Normal 9-20 [facility] Comment on above: Performed By: #### C BC, PT, CMPX, ALEJANDRO, LIP, MG, KAM, TRIG #### [facility] [place] [address] Back Tufter: Sadi Gambino MD #### IOCAL #### [address] [address] Back Tufter: Sha Nicholson MD Calcium [Mass/Vol] 9.0 mg/dL Normal 8.6-10.4 [facility] Comment on above: Performed By: #### C BC, PT, CMPX, ALEJANDRO, LIP, MG, KAM, TRIG #### [facility] [place] [address] Back Tufter: Sadi Gambino MD #### IOCAL #### [address] [address] Back Tufter: Sha Nicholson MD Chloride [Moles/Vol] 101 mmol/L Normal 98-107 [facility] Comment on above: Performed By: #### C BC, PT, CMPX, ALEJANDRO, LIP, MG, KAM, TRIG #### [facility] [address] [place] [address] Back Tufter: Sadi Gambino MD #### IOCAL #### [address] [address] Back Tufter: Sha Nicholson MD CO2 [Moles/Vol] 24 mmol/L Normal 20-31 [facility] Comment on above: Performed By: #### C BC, PT, CMPX, ALEJANDRO, LIP, MG, KAM, TRIG #### [facility] [address] [place] [address] Back Tufter: Sadi Gambino MD #### IOCAL #### [address] [address] Back Tufter: Sha Nicholson MD Creatinine [Mass/Vol] 0.44 mg/dL Low 0.70-1.20 [facility] Comment on above: Performed By: #### C BC, PT, CMPX, ALEJANDRO, LIP, MG, KAM, TRIG #### [facility] [address] [place] [address] Back Tufter: Sadi Gambino MD #### IOCAL #### [address] [address] Back Tufter: Sha Nicholson MD GFR, Amer >60 Normal >60 [facility] Comment on above: Performed By: #### C BC, PT, CMPX, ALEJANDRO, LIP, MG, KAM, TRIG #### [facility] [address] [place] [address] Back Tufter: Sadi Gambino MD #### IOCAL #### [address] [address] Back Tufter: Sha Nicholson MD GFR,non Amer >60 Normal >60 [facility] Comment on above: Performed By: #### C BC, PT, CMPX, ALEJANDRO, LIP, MG, KAM, TRIG #### [facility] [address] [place] [address] Back Tufter: Sadi Gambino MD #### IOCAL #### [address] [address] Back Tufter: Sha Nicholson MD Glucose [Mass/Vol] 164 mg/dL High 70-99 [facility] Comment on above: Performed By: #### C BC, PT, CMPX, ALEJANDRO, LIP, MG, KAM, TRIG #### [facility] [address] [place] [address] Back Tufter: Sadi Gambino MD #### IOCAL #### [address] [address] Back Tufter: Sha Nicholson MD Potassium [Moles/Vol] 4.1 mmol/L Normal 3.7-5.3 [facility] Comment on above: Performed By: #### C BC, PT, CMPX, ALEJANDRO, LIP, MG, KAM, TRIG #### [facility] [place] [address] Back Tufter: Sadi Gambino MD #### IOCAL #### [address] [address] Back Tufter: Sha Nicholson MD Sodium [Moles/Vol] 136 mmol/L Normal 135-144 [facility] Comment on above: Performed By: #### C BC, PT, CMPX, ALEJANDRO, LIP, MG, KAM, TRIG #### [facility] [address] [place] [address] [phone] Back Tufter: Sadi Gambino MD #### IOCAL #### [address] [phone] Back Tufter: Sha Nicholson MD Urea nitrogen [Mass/Vol] 9 mg/dL Normal 6-20 [facility] Comment on above: Performed By: #### C BC, PT, CMPX, ALEJANDRO, LIP, MG, KAM, TRIG #### [facility] [address] [place], [place] [phone] Back Tufter: Sadi Gambino MD #### IOCAL #### [address] [phone] Back Tufter: Sha Nicholson MD Staging: NOT REPORTED Normal [facility] Comment on above: Performed By: #### C BC, PT, CMPX, ALEJANDRO, LIP, MG, KAM, TRIG #### [facility] [address] [place], [place] [phone] Back Tufter: Sadi Gambino MD #### IOCAL #### [address] [phone] Back Tufter: Sha Nicholson MD CBC Auto Differentialon 11- Basophils (Bld) [#/Vol] 10*3/uL [place] Basophils/100 WBC (Bld) 0 % 0 - 2 % [place] Differential Type NOT REPORTED [place] Eosinophils (Bld) [#/Vol] 10*3/uL [place] Eosinophils/100 WBC (Bld) 0 % Low 1 - 4 % [place] Erythrocyte distribution width (RBC) [Ratio] 11.9 % 11.8 - 14.4 % [place] Hematocrit (Bld) [Volume fraction] 36.8 % Low 40.7 - 50.3 % [place] Hemoglobin (Bld) [Mass/Vol] 13.2 g/dL 13 - 17 g/dL [place] Immature granulocytes (Bld) [#/Vol] 0 % 0 [place] Immature granulocytes (Bld) [#/Vol] 0.04 10*3/uL [place] Interpretation and review of laboratory results Abnormal [place] Lymphocytes (Bld) [#/Vol] 1.44 10*3/uL [place] Lymphocytes/100 WBC (Bld) 14 % Low 24 - 43 % [place] MCH (RBC) [Entitic mass] 30.2 pg 25.2 - 33.5 pg [place] MCHC (RBC) [Mass/Vol] 35.9 g/dL High 28.4 - 34.8 g/dL [place] MCV (RBC) [Entitic vol] 84.2 fL 82.6 - 102.9 fL [place] Monocytes (Bld) [#/Vol] 0.52 10*3/uL [place] Monocytes/100 WBC (Bld) 5 % 3 - 12 % [place] Platelet mean volume (Bld) [Entitic vol] 10.9 fL 8.1 - 13.5 fL [place] Platelets (Bld) [#/Vol] NOT REPORTED [place] Platelets (Bld) [#/Vol] 256 10*3/uL [place] RBC (Bld) [#/Vol] 4.37 10*6/uL 4.21 - 5.7 7 m/uL [place] RBC morphology finding Nom (Bld) NOT REPORTED [place] Segmented neutrophils/100 WBC (Bld) 81 % High 36 - 65 % [place] Segs Absolute 8.50 High [place] WBC (Bld) [#/Vol] 10.5 10*3/uL [place] WBC (Bld) [#/Vol] 0.0 10*3/uL 0.0 per 10 0 WBC [place] WBC Morphology NOT REPORTED [place] CBC with Diffon 06-12-2019 Abs. Basophil <0.03 Normal 0.00-0.20 [facility] Comment on above: Performed By: #### C BC, PT, CMPX, ALEJANDRO, LIP, MG, KAM, TRIG #### [facility] [address] [place] [address] Back Tufter: Sadi Gambino MD #### IOCAL #### [address] [address] Back Tufter: Sha Nicholson MD Abs.Imm.Granulocyte 0.04 k/uL Normal 0.00-0.30 [facility] Comment on above: Performed By: #### C BC, PT, CMPX, ALEJANDRO, LIP, MG, KAM, TRIG #### [facility] [address] [place] [address] Back Tufter: Sadi Gambino MD #### IOCAL #### [address] [address] Back Tufter: Sha Nicholson MD Abs.Neutrophil (Seg) 8.50 k/uL High 1.50-8.10 [facility] Comment on above: Performed By: #### C BC, PT, CMPX, ALEJANDRO, LIP, MG, KAM, TRIG #### [facility] [address] [place] [address] Back Tufter: Sadi Gambino MD #### IOCAL #### [address] [address] Back Tufter: Sha Nicholson MD Basophils/100 WBC (Bld) 0 % Normal 0-2 M [facility] Comment on above: Performed By: #### C BC, PT, CMPX, ALEJANDRO, LIP, MG, KAM, TRIG #### [facility] [address] [place] [address] Back Tufter: Sadi Gambino MD #### IOCAL #### [address] [address] Back Tufter: Sha Nicholson MD Eosinophils (Bld) [#/Vol] 10*3/uL Normal 0.00-0.44 [facility] Comment on above: Performed By: #### C BC, PT, CMPX, ALEJANDRO, LIP, MG, KAM, TRIG #### [facility] [address] [place] [address] Back Tufter: Sadi Gambino MD #### IOCAL #### [address] [address] Back Tufter: Sha Nicholson MD Eosinophils/100 WBC (Bld) 0 % Low 1-4 [facility] Comment on above: Performed By: #### C BC, PT, CMPX, ALEJANDRO, LIP, MG, KAM, TRIG #### [facility] [address] [place] [address] Back Tufter: Sadi Gambino MD #### IOCAL #### [address] [address] Back Tufter: Sha Nicholson MD Erythrocyte distribution width (RBC) [Ratio] 11.9 % Normal 11.8-14.4 [facility] Comment on above: Performed By: #### C BC, PT, CMPX, ALEJANDRO, LIP, MG, KAM, TRIG #### [facility] [address] [place] [address] Back Tufter: Sadi Gambino MD #### IOCAL #### [address] [address] Back Tufter: Sha Nicholson MD Hematocrit (Bld) [Volume fraction] 36.8 % Low 40.7-50.3 [facility] Comment on above: Performed By: #### C BC, PT, CMPX, ALEJANDRO, LIP, MG, KAM, TRIG #### [facility] [address] [place] [address] Back Tufter: Sadi Gambino MD #### IOCAL #### [address] [address] Back Tufter: Sha Nicholson MD Hemoglobin (Bld) [Mass/Vol] 13.2 g/dL Normal 13.0-17.0 [facility] Comment on above: Performed By: #### C BC, PT, CMPX, ALEJANDRO, LIP, MG, KAM, TRIG #### [facility] [address] [place] [address] Back Tufter: Sadi Gambino MD #### IOCAL #### [address] [address] Back Tufter: Sha Nicholson MD Immature granulocytes (Bld) [#/Vol] 0 % Normal 0 [facility] Comment on above: Performed By: #### C BC, PT, CMPX, ALEJANDRO, LIP, MG, KAM, TRIG #### [facility] [address] [place] [address] Back Tufter: Sadi Gambino MD #### IOCAL #### [address] [address] Back Tufter: Sha Nicholson MD Lymphocytes (Bld) [#/Vol] 1.44 10*3/uL Normal 1.10-3.70 [facility] Comment on above: Performed By: #### C BC, PT, CMPX, ALEJANDRO, LIP, MG, KAM, TRIG #### [facility] [address] [place] [address] Back Tufter: Sadi Gambino MD #### IOCAL #### [address] [address] Back Tufter: Sha Nicholson MD Lymphocytes/100 WBC (Bld) 14 % Low 24-43 [facility] Comment on above: Performed By: #### C BC, PT, CMPX, ALEJANDRO, LIP, MG, KAM, TRIG #### [facility] [address] [place] [address] Back Tufter: Sadi Gambino MD #### IOCAL #### [address] [address] Back Tufter: Sha Nicholson MD MCH (RBC) [Entitic mass] 30.2 pg Normal 25.2-33.5 [facility] Comment on above: Performed By: #### C BC, PT, CMPX, ALEJANDRO, LIP, MG, KAM, TRIG #### [facility] [address] [place] [address] Back Tufter: Sadi Gambino MD #### IOCAL #### [address] [address] Back Tufter: Sha Nicholson MD MCHC (RBC) [Mass/Vol] 35.9 g/dL High 28.4-34.8 [facility] Comment on above: Performed By: #### C BC, PT, CMPX, ALEJANDRO, LIP, MG, KAM, TRIG #### [facility] [address] [place] [address] Back Tufter: Sadi Gambino MD #### IOCAL #### [address] [address] Back Tufter: Sha Nicholson MD MCV (RBC) [Entitic vol] 84.2 fL Normal 82.6-102.9 M [facility] Comment on above: Performed By: #### C BC, PT, CMPX, ALEJANDRO, LIP, MG, KAM, TRIG #### [facility] [address] [place] [address] Back Tufter: Sadi Gambino MD #### IOCAL #### [address] [address] Back Tufter: Sha Nicholson MD Monocytes (Bld) [#/Vol] 0.52 10*3/uL Normal 0.10-1.20 [facility] Comment on above: Performed By: #### C BC, PT, CMPX, ALEJANDRO, LIP, MG, KAM, TRIG #### [facility] [address] [place] [address] Back Tufter: Sdai Gambino MD #### IOCAL #### [address] [address] Back Tufter: Sha Nicholson MD Monocytes/100 WBC (Bld) 5 % Normal 3-12 M [facility] Comment on above: Performed By: #### C BC, PT, CMPX, ALEJANDRO, LIP, MG, KAM, TRIG #### [facility] [address] [place] [address] Back Tufter: Sadi Gambino MD #### IOCAL #### [address] [address] Back Tufter: Sha Nicholson MD Neutrophil (Seg) 81 % High 36-65 [facility] Comment on above: Performed By: #### C BC, PT, CMPX, ALEJANDRO, LIP, MG, KAM, TRIG #### [facility] [address] [place] [address] Back Tufter: Sadi Gambino MD #### IOCAL #### [address] [address] Back Tufter: Sha Nicholson MD NRBC Automated 0.0 per 100 WBC Normal 0.0 [facility] Comment on above: Performed By: #### C BC, PT, CMPX, ALEJANDRO, LIP, MG, KAM, TRIG #### [facility] [address] [place] [address] Back Tufter: Sadi Gambino MD #### IOCAL #### [address] [address] Back Tufter: Sha Nicholson MD Platelet mean volume (Bld) [Entitic vol] 10.9 fL Normal 8.1-13.5 [facility] Comment on above: Performed By: #### C BC, PT, CMPX, ALEJANDRO, LIP, MG, KAM, TRIG #### [facility] [address] [place] [address] Back Tufter: Sadi Gambino MD #### IOCAL #### [address] [address] Back Tufter: Sha Nicholson MD Platelets (Bld) [#/Vol] 256 10*3/uL Normal 138-453 [facility] Comment on above: Performed By: #### C BC, PT, CMPX, ALEJANDRO, LIP, MG, KAM, TRIG #### [facility] [address] [place] [address] Back Tufter: Sadi Gambino MD #### IOCAL #### [address] [address] Back Tufter: Sha Nicholson MD RBC (Bld) [#/Vol] 4.37 10*6/uL Normal 4.21-5.77 [facility] Comment on above: Performed By: #### C BC, PT, CMPX, ALEJANDRO, LIP, MG, KAM, TRIG #### [facility] [address] [place] [address] Back Tufter: Sadi Gambino MD #### IOCAL #### [address] [address] Back Tufter: Sha Nicholson MD WBC (Bld) [#/Vol] 10.5 10*3/uL Normal 3.5-11.3 [facility] Comment on above: Performed By: #### C BC, PT, CMPX, ALEJANDRO, LIP, MG, KAM, TRIG #### [facility] [address] [place] [address] Back Tufter: Sadi Gambino MD #### IOCAL #### [address] [address] Back Tufter: Sha Nicholson MD Auto Diff Performed NOT REPORTED Normal [facility] Comment on above: Performed By: #### C BC, PT, CMPX, ALEJANDRO, LIP, MG, KAM, TRIG #### [facility] [address] [place] [address] Back Tufter: Sadi Gambino MD #### IOCAL #### [address] [address] Back Tufter: Sha Nicholson MD Platelets (Bld) [#/Vol] NOT REPORTED Normal [facility] Comment on above: Performed By: #### C BC, PT, CMPX, ALEJANDRO, LIP, MG, KAM, TRIG #### [facility] [address] [place] [address] Back Tufter: Sadi Gambino MD #### IOCAL #### [address] [address] Back Tufter: Sha Nicholson MD RBC morphology finding Nom (Bld) NOT REPORTED Normal [facility] Comment on above: Performed By: #### C BC, PT, CMPX, ALEJANDRO, LIP, MG, KAM, TRIG #### [facility] [address] [place] [address] Back Tufter: Sadi Gambino MD #### IOCAL #### [address] [phone] Back Tufter: Sha Nicholson MD WBC Morphology NOT REPORTED Normal [facility] Comment on above: Performed By: #### C BC, PT, CMPX, ALEJANDRO, LIP, MG, KAM, TRIG #### [facility] [address] [place] [address] Back Tufter: Sadi Gambino MD #### IOCAL #### [address] [phone] Back Tufter: Sha Nicholson MD Magnesiumon 06-12-2019 Magnesium [Mass/Vol] 1.9 mg/dL Normal 1.6-2.6 [facility] Comment on above: Performed By: #### C BC, PT, CMPX, ALEJANDRO, LIP, MG, KAM, TRIG #### [facility] [address] [place] [address] Back Tufter: Sadi Gambino MD #### IOCAL #### [address] [phone] Back Tufter: Sha Nicholson MD Magnesium [Mass/Vol] 1.9 mg/dL 1.6 - 2 .6 mg/dL [place], [place] Surgical Pathologyon 019 Surgical Pathology (NOTE) [id number] [facility] CONSULTING PATHOLOGISTS [facility] [address] [place] [id number] SURGICAL PATHOLOGY CONSULTATION Patient Name: JOAQUIN MATHEWTyrone Emery [facility] Rec: [id number] Path Number: [id number] Collected: 06/12/2019 Received: 06/13/2019 Reported: 06/14/2019 09:23 -- Diagnosis -- GALLBLADDER, CHOLECYSTECTOMY: MILD ACUTE AND CHRONIC CHOLECYSTITIS WITH CHOLELITHAISIS. Soraya Simpson M.D Electronically Signed Out sandy/06/14/2019 Clinical Information Pre-op Diagnosis: GALLSTONES Operative Findings: GALLBLADDER Operation Performed: LAPAROSCOPIC CHOLECYSTECTOMY Source of Specimen 1: GALLBLADDER Gross Description DEVON MATHEW, GALLBLADDER 11.8 x 5.2 x 4.2 cm intact gallbladder with a 1.3 cm long x 0.5 cm in diameter cystic duct. The serosa is purple-rosas, and the liver bed is coarse medeiros-brown. The wall is 0.1 cm in thickness, and the lumen contains approximately 30 cc of tenacious green bile with faceted yellow calculi, 4.0 x 3.0 x 3.0 cm in aggregate. The mucosa is dark green-brown and slightly velvety. Cystic duct margin and sections of gallbladder mucosa 1cs. tm Microscopic Description Microscopic examination performed. Normal [facility] Comment on above: Performed By: #### C BC, PT, CMPX, ALEJANDRO, LIP, MG, KAM, TRIG #### [facility] [address] [place] [address] Back Tufter: Sadi Gambino MD #### IOCAL #### [address] [address] Back Tufter: Sha Nicholson MD Amylaseon 06-11-2019 Amylase [Catalytic activity/Vol] 88 U/L Normal 28-100 [facility] Comment on above: Performed By: #### C BC, PT, CMPX, ALEJANDRO, LIP, MG, KAM, TRIG #### [facility] [address] [place] [address] Back Tufter: Sadi Gambino MD #### IOCAL #### [address] [phone] Back Tufter: Sha Nicholson MD Amylase [Catalytic activity/Vol] 88 U/L 28 - 100 U/L [place] Basic Metabolic Panelon - Anion gap [Moles/Vol] 12 mmol/L 9 - 17 mmol/L [place] Bun/Cre Ratio 11 [place] Calcium [Mass/Vol] 8.8 mg/dL 8.6 - 10. 4 mg/dL [place] Chloride [Moles/Vol] 104 mmol/L 98 - 10 7 mmol/L [place] CO2 [Moles/Vol] 24 mmol/L 20 - 31 mmol/L [place] Creatinine [Mass/Vol] 0.46 mg/dL Low 0.7 - 1.2 mg/dL [place] GFR >60 >60 mL/min [place] GFR Non- >60 >60 mL/min [place] GFR/1.73 sq M predicted among non-blacks MDRD (S/P/Bld) [Vol rate/Area] NOT REPORTED [place] GFR/1.73 sq M predicted among non-blacks MDRD (S/P/Bld) [Vol rate/Area] [place] Comment on above: Average GFR for 30-3 9 years old: 107 mL/min/1.73sq m Chronic Kidney Disease: <60 mL/min/1.73sq m Kidney failure: <15 mL/min/1.73sq m eGFR calculated using average adult body mass. Additional eGFR calculator available at: http://www.[employer]/multiple_crcl_2012.htm Glucose [Mass/Vol] 92 mg/dL 70 - 99 mg/dL [place] Potassium [Moles/Vol] 3.8 mmol/L 3.7 - 5.3 mmol/L [place] Sodium [Moles/Vol] 140 mmol/L 135 - 144 mmol/L [place] Urea nitrogen [Mass/Vol] 5 mg/dL Low 6 - 20 mg/dL [place] Basic Metabolic Profon 06-11 (cont.) Normal [facility] Comment on above: Result Comment: Aver age GFR for 30-39 years old: 107 mL/min/1.73sq m Chronic Kidney Disease: <60 mL/min/1.73sq m Kidney failure: <15 mL/min/1.73sq m eGFR calculated using average adult body mass. Additional eGFR calculator available at: http://www.[employer]/multiple_crcl_2012.htm Performed By: #### C BC, PT, CMPX, ALEJANDRO, LIP, MG, KAM, TRIG #### [facility] [address] [place] [address] Back Tufter: Sadi Gambino MD #### IOCAL #### [address] [address] Back Tufter: Sha Nicholson MD Anion gap [Moles/Vol] 12 mmol/L Normal 9-17 [facility] Comment on above: Performed By: #### C BC, PT, CMPX, ALEJANDRO, LIP, MG, KAM, TRIG #### [facility] [address] [place] [address] Back Tufter: Sadi Gambino MD #### IOCAL #### [address] [address] Back Tufter: Sha Nicholson MD BUN/CRE Ratio 11 Normal 9-20 [facility] Comment on above: Performed By: #### C BC, PT, CMPX, ALEJANDRO, LIP, MG, KAM, TRIG #### [facility] [address] [place] [address] Back Tufter: Sadi Gambino MD #### IOCAL #### [address] [address] Back Tufter: Sha Nicholson MD Calcium [Mass/Vol] 8.8 mg/dL Normal 8.6-10.4 [facility] Comment on above: Performed By: #### C BC, PT, CMPX, ALEJANDRO, LIP, MG, KAM, TRIG #### [facility] [place] [address] Back Tufter: Sadi Gambino MD #### IOCAL #### [address] [address] Back Tufter: Sha Nicholson MD Chloride [Moles/Vol] 104 mmol/L Normal 98-107 [facility] Comment on above: Performed By: #### C BC, PT, CMPX, ALEJANDRO, LIP, MG, KAM, TRIG #### [facility] [address] [place] [address] Back Tufter: Sadi Gambino MD #### IOCAL #### [address] [address] Back Tufter: Sha Nicholson MD CO2 [Moles/Vol] 24 mmol/L Normal 20-31 [facility] Comment on above: Performed By: #### C BC, PT, CMPX, ALEJANDRO, LIP, MG, KAM, TRIG #### [facility] [address] [place] [address] Back Tufter: Sadi Gambino MD #### IOCAL #### [address] [address] Back Tufter: Sha Nicholson MD Creatinine [Mass/Vol] 0.46 mg/dL Low 0.70-1.20 [facility] Comment on above: Performed By: #### C BC, PT, CMPX, ALEJANDRO, LIP, MG, KAM, TRIG #### [facility] [address] [place] [address] Back Tufter: Sadi Gambino MD #### IOCAL #### [address] [address] Back Tufter: Sha Nicholson MD GFR, Amer >60 Normal >60 [facility] Comment on above: Performed By: #### C BC, PT, CMPX, ALEJANDRO, LIP, MG, KAM, TRIG #### [facility] [address] [place] [address] Back Tufter: Sadi Gambino MD #### IOCAL #### [address] [address] Back Tufter: Sha Nicholson MD GFR,non Amer >60 Normal >60 [facility] Comment on above: Performed By: #### C BC, PT, CMPX, ALEJANDRO, LIP, MG, KAM, TRIG #### [facility] [address] [place] [address] Back Tufter: Sadi Gabmino MD #### IOCAL #### [address] [address] Back Tufter: Sha Nicholson MD Glucose [Mass/Vol] 92 mg/dL Normal 70-99 [facility] Comment on above: Performed By: #### C BC, PT, CMPX, ALEJANDRO, LIP, MG, KAM, TRIG #### [facility] [address] [place] [address] Back Tufter: Sadi Gambino MD #### IOCAL #### [address] [address] Back Tufter: Sha Nicholson MD Potassium [Moles/Vol] 3.8 mmol/L Normal 3.7-5.3 [facility] Comment on above: Performed By: #### C BC, PT, CMPX, ALEJANDRO, LIP, MG, KAM, TRIG #### [facility] [address] [place] [address] Back Tufter: Sadi Gambino MD #### IOCAL #### [address] [address] Back Tufter: Sha Nicholson MD Sodium [Moles/Vol] 140 mmol/L Normal 135-144 [facility] Comment on above: Performed By: #### C BC, PT, CMPX, ALEJANDRO, LIP, MG, KAM, TRIG #### [facility] [place] [address] Back Tufter: Sadi Gambino MD #### IOCAL #### [address] [address] Back Tufter: Sha Nicholson MD Urea nitrogen [Mass/Vol] 5 mg/dL Low 6-20 [facility] Comment on above: Performed By: #### C BC, PT, CMPX, ALEJANDRO, LIP, MG, KAM, TRIG #### [facility] [address] [place] [address] Back Tufter: Sadi Gambino MD #### IOCAL #### [address] [address] Back Tufter: Sha Nicholson MD Staging: NOT REPORTED Normal [facility] Comment on above: Performed By: #### C BC, PT, CMPX, ALEJANDRO, LIP, MG, KAM, TRIG #### [facility] [address] [place] [address] Back Tufter: Sadi Gambino MD #### IOCAL #### [address] [address] Back Tufter: Sha Nicholson MD CBC Auto Differentialon Basophils (Bld) [#/Vol] 0.06 10*3/uL [place] Basophils/100 WBC (Bld) 1 % 0 - 2 % [place] Differential Type NOT REPORTED [place] Eosinophils (Bld) [#/Vol] 0.42 10*3/uL [place] Eosinophils/100 WBC (Bld) 4 % 1 - 4 % [place] Erythrocyte distribution width (RBC) [Ratio] 12.1 % 11.8 - 14.4 % [place] Hematocrit (Bld) [Volume fraction] 36.3 % Low 40.7 - 50.3 % [place] Hemoglobin (Bld) [Mass/Vol] 12.8 g/dL Low 13 - 17 g/dL [place] Immature granulocytes (Bld) [#/Vol] 0 % 0 [place] Immature granulocytes (Bld) [#/Vol] 0.03 10*3/uL [place] Interpretation and review of laboratory results Abnormal [place] Lymphocytes (Bld) [#/Vol] 2.30 10*3/uL [place] Lymphocytes/100 WBC (Bld) 24 % 24 - 43 % [place] MCH (RBC) [Entitic mass] 30.5 pg 25.2 - 33.5 pg [place] MCHC (RBC) [Mass/Vol] 35.3 g/dL High 28.4 - 34.8 g/dL [place] MCV (RBC) [Entitic vol] 86.4 fL 82.6 - 102.9 fL [place] Monocytes (Bld) [#/Vol] 0.81 10*3/uL [place] Monocytes/100 WBC (Bld) 8 % 3 - 12 % [place] Platelet mean volume (Bld) [Entitic vol] 10.6 fL 8.1 - 13.5 fL [place] Platelets (Bld) [#/Vol] NOT REPORTED [place] Platelets (Bld) [#/Vol] 215 10*3/uL [place] RBC (Bld) [#/Vol] 4.20 10*6/uL Low 4.21 - 5.7 7 m/uL [place] RBC morphology finding Nom (Bld) NOT REPORTED [place] Segmented neutrophils/100 WBC (Bld) 62 % 36 - 65 % [place] Segs Absolute 5.98 [place] WBC (Bld) [#/Vol] 0.0 10*3/uL 0.0 per 10 0 WBC [place] WBC (Bld) [#/Vol] 9.6 10*3/uL [place] WBC Morphology NOT REPORTED [place] CBC with Diffon 06-11-2019 Abs. Basophil 0.06 k/uL Normal 0.00-0.20 [facility] Comment on above: Performed By: #### C BC, PT, CMPX, ALEJANDRO, LIP, MG, KAM, TRIG #### [facility] [address] [place] [address] Back Tufter: Sadi Gambino MD #### IOCAL #### [address] [address] Back Tufter: Sha Nicholson MD Abs.Imm.Granulocyte 0.03 k/uL Normal 0.00-0.30 [facility] Comment on above: Performed By: #### C BC, PT, CMPX, ALEJANDRO, LIP, MG, KAM, TRIG #### [facility] [address] [place] [address] Back Tufter: Sadi Gambino MD #### IOCAL #### [address] [address] Back Tufter: Sha Nicholson MD Abs.Neutrophil (Seg) 5.98 k/uL Normal 1.50-8.10 [facility] Comment on above: Performed By: #### C BC, PT, CMPX, ALEJANDRO, LIP, MG, KAM, TRIG #### [facility] [address] [place] [address] Back Tufter: Sadi Gambino MD #### IOCAL #### [address] [address] Back Tufter: Sha Nicholson MD Basophils/100 WBC (Bld) 1 % Normal 0-2 M [facility] Comment on above: Performed By: #### C BC, PT, CMPX, ALEJANDRO, LIP, MG, KAM, TRIG #### [facility] [address] [place] [address] Back Tufter: Sadi Gambino MD #### IOCAL #### [address] [id number] Back Tufter: Sha Nicholson MD Eosinophils (Bld) [#/Vol] 0.42 10*3/uL Normal 0.00-0.44 [facility] Comment on above: Performed By: #### C BC, PT, CMPX, ALEJANDRO, LIP, MG, KAM, TRIG #### [facility] [address] [place] [address] Back Tufter: Sadi Gambino MD #### IOCAL #### [address] [address] Back Tufter: Sha Nicholson MD Eosinophils/100 WBC (Bld) 4 % Normal 1-4 [facility] Comment on above: Performed By: #### C BC, PT, CMPX, ALEJANDRO, LIP, MG, KAM, TRIG #### [facility] [address] [place] [address] Back Tufter: Sadi Gambino MD #### IOCAL #### [address] [address] Back Tufter: Sha Nicholson MD Erythrocyte distribution width (RBC) [Ratio] 12.1 % Normal 11.8-14.4 [facility] Comment on above: Performed By: #### C BC, PT, CMPX, ALEJANDRO, LIP, MG, KAM, TRIG #### [facility] [address] [place] [address] Back Tufter: Sadi Gambino MD #### IOCAL #### [address] [address] Back Tufter: Sha Nicholson MD Hematocrit (Bld) [Volume fraction] 36.3 % Low 40.7-50.3 [facility] Comment on above: Performed By: #### C BC, PT, CMPX, ALEJANDRO, LIP, MG, KAM, TRIG #### [facility] [address] [place] [address] Back Tufter: Sadi Gambino MD #### IOCAL #### [address] [id number] Back Tufter: Sha Nicholson MD Hemoglobin (Bld) [Mass/Vol] 12.8 g/dL Low 13.0-17.0 [facility] Comment on above: Performed By: #### C BC, PT, CMPX, ALEJANDRO, LIP, MG, KAM, TRIG #### [facility] [address] [place] [address] Back Tufter: Sadi Gambino MD #### IOCAL #### [address] [address] Back Tufter: Sha Nicholson MD Immature granulocytes (Bld) [#/Vol] 0 % Normal 0 [facility] Comment on above: Performed By: #### C BC, PT, CMPX, ALEJANDRO, LIP, MG, KAM, TRIG #### [facility] [address] [place] [address] Back Tufter: Sadi Gambino MD #### IOCAL #### [address] [address] Back Tufter: Sha Nicholson MD Lymphocytes (Bld) [#/Vol] 2.30 10*3/uL Normal 1.10-3.70 [facility] Comment on above: Performed By: #### C BC, PT, CMPX, ALEJANDRO, LIP, MG, KAM, TRIG #### [facility] [place] [address] Back Tufter: Sadi Gambino MD #### IOCAL #### [address] [address] Back Tufter: Sha Nicholson MD Lymphocytes/100 WBC (Bld) 24 % Normal 24-43 [facility] Comment on above: Performed By: #### C BC, PT, CMPX, ALEJANDRO, LIP, MG, KAM, TRIG #### [facility] [address] [place] [address] Back Tufter: Sadi Gambino MD #### IOCAL #### [place] [address] Back Tufter: Sha Nicholson MD MCH (RBC) [Entitic mass] 30.5 pg Normal 25.2-33.5 [facility] Comment on above: Performed By: #### C BC, PT, CMPX, ALEJANDRO, LIP, MG, KAM, TRIG #### [facility] [address] [place] [address] Back Tufter: Sadi Gambino MD #### IOCAL #### [address] [address] Back Tufter: Sha Nicholson MD MCHC (RBC) [Mass/Vol] 35.3 g/dL High 28.4-34.8 [facility] Comment on above: Performed By: #### C BC, PT, CMPX, ALEJANDRO, LIP, MG, KAM, TRIG #### [facility] [address] [place] [address] Back Tufter: Sadi Gambino MD #### IOCAL #### [address] [address] Back Tufter: Sha Nicholson MD MCV (RBC) [Entitic vol] 86.4 fL Normal 82.6-102.9 M [facility] Comment on above: Performed By: #### C BC, PT, CMPX, ALEJANDRO, LIP, MG, KAM, TRIG #### [facility] [address] [place] [address] Back Tufter: Sadi Gambino MD #### IOCAL #### [address] [address] Back Tufter: Sha Nicholson MD Monocytes (Bld) [#/Vol] 0.81 10*3/uL Normal 0.10-1.20 [facility] Comment on above: Performed By: #### C BC, PT, CMPX, ALEJANDRO, LIP, MG, KAM, TRIG #### [facility] [address] [place] [address] Back Tufter: Sadi Gambino MD #### IOCAL #### [address] [address] Back Tufter: Sha Nicholson MD Monocytes/100 WBC (Bld) 8 % Normal 3-12 M [facility] Comment on above: Performed By: #### C BC, PT, CMPX, ALEJANDRO, LIP, MG, KAM, TRIG #### [facility] [address] [place] [address] Back Tufter: Sadi Gambino MD #### IOCAL #### [address] [address] Back Tufter: Sha Nicholson MD Neutrophil (Seg) 62 % Normal 36-65 [facility] Comment on above: Performed By: #### C BC, PT, CMPX, ALEJANDRO, LIP, MG, KAM, TRIG #### [facility] [place] [address] Back Tufter: Sadi Gambino MD #### IOCAL #### [address] [address] Back Tufter: Sha Nicholson MD NRBC Automated 0.0 per 100 WBC Normal 0.0 [facility] Comment on above: Performed By: #### C BC, PT, CMPX, ALEJANDRO, LIP, MG, KAM, TRIG #### [facility] [address] [place] [address] Back Tufter: Sadi Gambino MD #### IOCAL #### [address] [address] Back Tufter: Sha Nicholson MD Platelet mean volume (Bld) [Entitic vol] 10.6 fL Normal 8.1-13.5 [facility] Comment on above: Performed By: #### C BC, PT, CMPX, ALEJANDRO, LIP, MG, KAM, TRIG #### [facility] [address] [place] [address] Back Tufter: Sadi Gambino MD #### IOCAL #### [address] [address] Back Tufter: Sha Nicholson MD Platelets (Bld) [#/Vol] 215 10*3/uL Normal 138-453 [facility] Comment on above: Performed By: #### C BC, PT, CMPX, ALEJANDRO, LIP, MG, KAM, TRIG #### [facility] [address] [place] [address] Back Tufter: Sadi Gambino MD #### IOCAL #### [address] [address] Back Tufter: Sha Nicholson MD RBC (Bld) [#/Vol] 4.20 10*6/uL Low 4.21-5.77 [facility] Comment on above: Performed By: #### C BC, PT, CMPX, ALEJANDRO, LIP, MG, KAM, TRIG #### [facility] [address] [place] [address] Back Tufter: Sadi Gambino MD #### IOCAL #### [address] [address] Back Tufter: Sha Nicholson MD WBC (Bld) [#/Vol] 9.6 10*3/uL Normal 3.5-11.3 [facility] Comment on above: Performed By: #### C BC, PT, CMPX, ALEJANDRO, LIP, MG, KAM, TRIG #### [facility] [address] [place] [address] Back Tufter: Sadi Gambino MD #### IOCAL #### [address] [address] Back Tufter: Sha Nicholson MD Auto Diff Performed NOT REPORTED Normal [facility] Comment on above: Performed By: #### C BC, PT, CMPX, ALEJANDRO, LIP, MG, KAM, TRIG #### [facility] [address] [place] [address] Back Tufter: Sadi Gambino MD #### IOCAL #### [address] [address] Back Tufter: Sha Nicholson MD Platelets (Bld) [#/Vol] NOT REPORTED Normal [facility] Comment on above: Performed By: #### C BC, PT, CMPX, ALEJANDRO, LIP, MG, KAM, TRIG #### [facility] [address] [place] [address] Back Tufter: Sadi Gambino MD #### IOCAL #### [address] [address] Back Tufter: Sha Nicholson MD RBC morphology finding Nom (Bld) NOT REPORTED Normal [facility] Comment on above: Performed By: #### C BC, PT, CMPX, ALEJANDRO, LIP, MG, KAM, TRIG #### [facility] [address] [place] [address] Back Tufter: Sadi Gambino MD #### IOCAL #### [address] [address] Back Tufter: Sha Nicholson MD WBC Morphology NOT REPORTED Normal [facility] Comment on above: Performed By: #### C BC, PT, CMPX, ALEJANDRO, LIP, MG, KAM, TRIG #### [facility] [address] [place] [address] Back Tufter: Sadi Gambino MD #### IOCAL #### [address] [address] Back Tufter: Sha Nicholson MD [place] ERCP BILIARY AND PANCREAT IC S AND Ion 06-11-2019 [place] ERCP BILIARY AND PANCREATIC S AND I EXAMINATION: 10 SPOT IMAGES FROM AN ERCP COMPARISON: CT 06/06/2019 FLUOROSCOPY DOSE OR TIME/IMAGES: 8.2 seconds; D AP 1096.7 mGy cm2 HISTORY: ORDERING SYSTEM PROVIDED HISTORY: ERCP TECHNOLOGIST PROVIDED HISTORY: ERCP Acuity: Acute Type of Exam: Unknown FINDINGS: Endoscopy and cannulation of the major papilla was performed by the gastroenterology service under the supervision of MACIEL PRAJAPATI. Spot views are presented for interpretation. Contrast is identified in the intrahepatic and extrahepatic bile ducts which are not significantly dilated. On some images there are small rounded filling defects in the extrahepatic biliary tree which may represent air bubbles or stones. Visualized ducts are not significantly dilated. No contrast extravasation is identified. There filling of the cystic duct with multiple small stones visualized in the gallbladder. By report sphincterotomy and balloon sweeps were performed with extraction of sludge. Please correlate with procedure report for additional details. IMPRESSION: Intraoperative fluoroscopy for ERCP Interpreted by: Stan Samson MD Signed by: Stan Samson MD 06/11/[address] [facility] ERCP BILIARY AND PANCREAT IC S&Ion 06-11-2019 Jasen, [facility] Incoming Radiant Results From [facility] - 06/11/2019 5:18 PM EST EXAMINATION: 10 SPOT IMAGES FROM AN ERCP COMPARISON: CT 06/06/2019 FLUOROSCOPY DOSE OR TIME/IMAGES: 8.2 seconds; D AP 1096.7 mGy cm2 HISTORY: ORDERING SYSTEM PROVIDED HISTORY: ERCP TECHNOLOGIST PROVIDED HISTORY: ERCP Acuity: Acute Type of Exam: Unknown FINDINGS: Endoscopy and cannulation of the major papilla was performed by the gastroenterology service under the supervision of MACIEL PRAJAPATI. Spot views are presented for interpretation. Contrast is identified in the intrahepatic and extrahepatic bile ducts which are not significantly dilated. On some images there are small rounded filling defects in the extrahepatic biliary tree which may represent air bubbles or stones. Visualized ducts are not significantly dilated. No contrast extravasation is identified. There filling of the cystic duct with multiple small stones visualized in the gallbladder. By report sphincterotomy and balloon sweeps were performed with extraction of sludge. Please correlate with procedure report for additional details. IMPRESSION: Intraoperative fluoroscopy for ERCP [place] EXAMINATION: 10 SPOT IMAGES FROM AN ERCP COMPARISON: CT 06/06/2019 FLUOROSCOPY DOSE OR TIME/IMAGES: 8.2 seconds; D AP 1096.7 mGy cm2 HISTORY: ORDERING SYSTEM PROVIDED HISTORY: ERCP TECHNOLOGIST PROVIDED HISTORY: ERCP Acuity: Acute Type of Exam: Unknown FINDINGS: Endoscopy and cannulation of the major papilla was performed by the gastroenterology service under the supervision of MACIEL PRAJAPATI. Spot views are presented for interpretation. Contrast is identified in the intrahepatic and extrahepatic bile ducts which are not significantly dilated. On some images there are small rounded filling defects in the extrahepatic biliary tree which may represent air bubbles or stones. Visualized ducts are not significantly dilated. No contrast extravasation is identified. There filling of the cystic duct with multiple small stones visualized in the gallbladder. By report sphincterotomy and balloon sweeps were performed with extraction of sludge. Please correlate with procedure report for additional details. [place] Intraoperative fluoroscopy for ERCP [place] FLUORO FOR SURGICAL PROCEDUR ESon 06-11-2019 FLUORO FOR SURGICAL PROCEDURES Radiology exam is complete. No Radiologist dictation. Please follow up with ordering provider. Final result Normal [facility] Radiology exam is complete. No Radiologist dictation. Please follow up with ordering provider. [place] Lipaseon 06-11-2019 Lipase [Catalytic activity/Vol] 108 U/L High 13-60 [facility] Comment on above: Performed By: #### C BC, PT, CMPX, ALEJANDRO, LIP, MG, KAM, TRIG #### [facility] [address] [place] [address] Back Tufter: Sadi Gambino MD #### IOCAL #### [facility] [address] [place] [address] Back Tufter: Sha Nicholson MD Lipase [Catalytic activity/Vol] 108 U/L High 13 - 60 U/L [place] Lipid Panelon 06-11-2019 Cholesterol [Mass/Vol] 125 mg/dL <200 [place] Comment on above: Cholesterol Guidelines: <200 Desirable 200-240 Borderline >240 Undesirable Cholesterol in HDL [Mass/Vol] 20 mg/dL Low >40 [place] Comment on above: HDL Guidelines: <40 Undesirable 40-59 Borderline >59 Desirable Cholesterol in LDL [Mass/Vol] 82 mg/dL 0 - 130 mg/dL [place] Comment on above: LDL Guidelines: <100 Desirable 100-129 Near to/above Desirable 130-159 Borderline >159 Undesirable Direct (measured) LDL and calculated LDL are not interchangeable tests. Cholesterol in VLDL [Mass/Vol] NOT REPORTED 1 - 30 mg/dL [place] Cholesterol.total/Bailey sterol in HDL [Mass ratio] 6.3 {ratio} High <5 [place] Triglyceride [Mass/Vol] 117 mg/dL <150 [place] Comment on above: Triglyceride Guidelines: <150 Desirable 150-199 Borderline 200-499 High >499 Very high Based on AHA Guidelines for fasting triglyceride, May 2012. Lipid Profileon 06-11-2019 Cholesterol [Mass/Vol] 125 mg/dL Normal <200 [facility] Comment on above: Result Comment: Cholesterol Guidelines: <200 Desirable 200-240 Borderline >240 Undesirable Performed By: #### C BC, PT, CMPX, ALEJANDRO, LIP, MG, KAM, TRIG #### [facility] [address] [place] [address] Back Tufter: Sadi Gambino MD #### IOCAL #### [address] [address] Back Tufter: Sha Nicholson MD Cholesterol in HDL [Mass/Vol] 20 mg/dL Low >40 [facility] Comment on above: Result Comment: HDL Guidelines: <40 Undesirable 40-59 Borderline >59 Desirable Performed By: #### C BC, PT, CMPX, ALEJANDRO, LIP, MG, KAM, TRIG #### [facility] [address] [place] [address] Back Tufter: Sadi Gambino MD #### IOCAL #### [address] [address] Back Tufter: Sha Nicholson MD Cholesterol in LDL [Mass/Vol] 82 mg/dL Normal 0-130 [facility] Comment on above: Result Comment: LDL Guidelines: <100 Desirable 100-129 Near to/above Desirable 130-159 Borderline >159 Undesirable Direct (measured) LDL and calculated LDL are not interchangeable tests. Performed By: #### C BC, PT, CMPX, ALEJANDRO, LIP, MG, KAM, TRIG #### [facility] [place] [address] Back Tufter: Sadi Gambino MD #### IOCAL #### [address] [address] Back Tufter: Sha Nicholson MD Cholesterol.total/Bailey sterol in HDL [Mass ratio] 6.3 {ratio} High <5 [facility] Comment on above: Performed By: #### C BC, PT, CMPX, ALEJANDRO, LIP, MG, KAM, TRIG #### [facility] [address] [place] [address] Back Tufter: Sadi Gambino MD #### IOCAL #### [address] [address] Back Tufter: Sha Nicholson MD Triglyceride [Mass/Vol] 117 mg/dL Normal <150 [facility] Comment on above: Result Comment: Triglyceride Guidelines: <150 Desirable 150-199 Borderline 200-499 High >499 Very high Based on AHA Guidelines for fasting triglyceride, May 2012. Performed By: #### C BC, PT, CMPX, ALEJANDRO, LIP, MG, KAM, TRIG #### [facility] [address] [place] [address] Back Tufter: Sadi Gambino MD #### IOCAL #### [address] [address] Back Tufter: Sha Nicholson MD Cholesterol in VLDL [Mass/Vol] NOT REPORTED Normal 1-30 [facility] Comment on above: Performed By: #### C BC, PT, CMPX, ALEJANDRO, LIP, MG, KAM, TRIG #### [facility] [address] [place] [address] Back Tufter: Sadi Gambino MD #### IOCAL #### [address] [address] Back Tufter: Sha Nicholson MD Magnesiumon 06-11-2019 Magnesium [Mass/Vol] 1.9 mg/dL Normal 1.6-2.6 [facility] Comment on above: Performed By: #### C BC, PT, CMPX, ALEJANDRO, LIP, MG, KAM, TRIG #### [facility] [address] [place], [place] [phone] Back Tufter: Sadi Gambino MD #### IOCAL #### [place] [address] [place], [place] [phone] Back Tufter: Sha Nicholson MD Magnesium [Mass/Vol] 1.9 mg/dL 1.6 - 2 .6 mg/dL [place] Otheron 06-11-2019 Interpretation and review of laboratory results Abnormal [place] Amylaseon 06-10-2019 Amylase [Catalytic activity/Vol] 188 U/L High 28-100 [facility] Comment on above: Performed By: #### C BC, PT, CMPX, ALEJANDRO, LIP, MG, KAM, TRIG #### [facility] [address] [place] [id number] Back Tufter: Sadi Gambino MD #### IOCAL #### [address] [phone] Back Tufter: Sha Nicholson MD Amylase [Catalytic activity/Vol] 188 U/L High 28 - 100 U/L [place] CBC Auto Differentialon Basophils (Bld) [#/Vol] 0.06 10*3/uL [place] Basophils/100 WBC (Bld) 1 % 0 - 2 % [place] Differential Type NOT REPORTED [place] Eosinophils (Bld) [#/Vol] 0.29 10*3/uL [place] Eosinophils/100 WBC (Bld) 3 % 1 - 4 % [place] Erythrocyte distribution width (RBC) [Ratio] 12.1 % 11.8 - 14.4 % [place] Hematocrit (Bld) [Volume fraction] 37.1 % Low 40.7 - 50.3 % [place] Hemoglobin (Bld) [Mass/Vol] 13.0 g/dL 13 - 17 g/dL [place] Immature granulocytes (Bld) [#/Vol] 0.03 10*3/uL [place] Immature granulocytes (Bld) [#/Vol] 0 % 0 [place] Interpretation and review of laboratory results Abnormal [place] Lymphocytes (Bld) [#/Vol] 2.29 10*3/uL [place] Lymphocytes/100 WBC (Bld) 25 % 24 - 43 % [place] MCH (RBC) [Entitic mass] 30.8 pg 25.2 - 33.5 pg [place] MCHC (RBC) [Mass/Vol] 35.0 g/dL High 28.4 - 34.8 g/dL [place] MCV (RBC) [Entitic vol] 87.9 fL 82.6 - 102.9 fL [place] Monocytes (Bld) [#/Vol] 0.76 10*3/uL [place] Monocytes/100 WBC (Bld) 8 % 3 - 12 % [place] Platelet mean volume (Bld) [Entitic vol] 10.8 fL 8.1 - 13.5 fL [place] Platelets (Bld) [#/Vol] NOT REPORTED [place] Platelets (Bld) [#/Vol] 208 10*3/uL [place] RBC (Bld) [#/Vol] 4.22 10*6/uL 4.21 - 5.7 7 m/uL [place] RBC morphology finding Nom (Bld) NOT REPORTED [place] Segmented neutrophils/100 WBC (Bld) 62 % 36 - 65 % [place] Segs Absolute 5.62 [place] WBC (Bld) [#/Vol] 0.0 10*3/uL 0.0 per 10 0 WBC [place] WBC (Bld) [#/Vol] 9.1 10*3/uL [place] WBC Morphology NOT REPORTED [place] CBC with Diffon 06-10-2019 Abs. Basophil 0.06 k/uL Normal 0.00-0.20 [facility] Comment on above: Performed By: #### C BC, PT, CMPX, ALEJANDRO, LIP, MG, KAM, TRIG #### [facility] [address] [place] [address] Back Tufter: Sadi Gambino MD #### IOCAL #### [address] [address] Back Tufter: Sha Nicholson MD Abs.Imm.Granulocyte 0.03 k/uL Normal 0.00-0.30 [facility] Comment on above: Performed By: #### C BC, PT, CMPX, ALEJANDRO, LIP, MG, KAM, TRIG #### [facility] [address] [place] [address] Back Tufter: Sadi Gambino MD #### IOCAL #### [address] [address] Back Tufter: Sha Nicholson MD Abs.Neutrophil (Seg) 5.62 k/uL Normal 1.50-8.10 [facility] Comment on above: Performed By: #### C BC, PT, CMPX, ALEJANDRO, LIP, MG, KAM, TRIG #### [facility] [address] [place] [address] Back Tufter: Sadi Gambino MD #### IOCAL #### [address] [address] Back Tufter: Sha Nicholson MD Basophils/100 WBC (Bld) 1 % Normal 0-2 M [facility] Comment on above: Performed By: #### C BC, PT, CMPX, ALEJANDRO, LIP, MG, KAM, TRIG #### [facility] [address] [place] [address] Back Tufter: Sadi Gambino MD #### IOCAL #### [address] [address] Back Tufter: Sha Nicholson MD Eosinophils (Bld) [#/Vol] 0.29 10*3/uL Normal 0.00-0.44 [facility] Comment on above: Performed By: #### C BC, PT, CMPX, ALEJANDRO, LIP, MG, KAM, TRIG #### [facility] [address] [place] [address] Back Tufter: Sadi Gambino MD #### IOCAL #### [address] [address] Back Tufter: Sha Nicholson MD Eosinophils/100 WBC (Bld) 3 % Normal 1-4 [facility] Comment on above: Performed By: #### C BC, PT, CMPX, ALEJANDRO, LIP, MG, KAM, TRIG #### [facility] [address] [place] [address] Back Tufter: Sadi Gambino MD #### IOCAL #### [address] [address] Back Tufter: Sha Nicholson MD Immature granulocytes (Bld) [#/Vol] 0 % Normal 0 [facility] Comment on above: Performed By: #### C BC, PT, CMPX, ALEJANDRO, LIP, MG, KAM, TRIG #### [facility] [address] [place] [address] Back Tufter: Sadi Gambino MD #### IOCAL #### [address] [address] Back Tufter: Sha Nicholson MD Lymphocytes (Bld) [#/Vol] 2.29 10*3/uL Normal 1.10-3.70 [facility] Comment on above: Performed By: #### C BC, PT, CMPX, ALEJANDRO, LIP, MG, KAM, TRIG #### [facility] [address] [place] [address] Back Tufter: Sadi Gambino MD #### IOCAL #### [address] [address] Back Tufter: Sha Nicholson MD Lymphocytes/100 WBC (Bld) 25 % Normal 24-43 [facility] Comment on above: Performed By: #### C BC, PT, CMPX, ALEJANDRO, LIP, MG, KAM, TRIG #### [facility] [address] [place] [address] Back Tufter: Sadi Gambino MD #### IOCAL #### [address] [address] Back Tufter: Sha Nicholson MD Monocytes (Bld) [#/Vol] 0.76 10*3/uL Normal 0.10-1.20 [facility] Comment on above: Performed By: #### C BC, PT, CMPX, ALEJANDRO, LIP, MG, KAM, TRIG #### [facility] [address] [place] [address] Back Tufter: Sadi Gambino MD #### IOCAL #### [address] [address] Back Tufter: Sha Nicholson MD Monocytes/100 WBC (Bld) 8 % Normal 3-12 M [facility] Comment on above: Performed By: #### C BC, PT, CMPX, ALEJANDRO, LIP, MG, KAM, TRIG #### [facility] [address] [place] [address] Back Tufter: Sadi Gambino MD #### IOCAL #### [address] [address] Back Tufter: Sha Nicholson MD Neutrophil (Seg) 62 % Normal 36-65 [facility] Comment on above: Performed By: #### C BC, PT, CMPX, ALEJANDRO, LIP, MG, KAM, TRIG #### [facility] [place] [address] Back Tufter: Sadi Gambino MD #### IOCAL #### [address] [address] Back Tufter: Sha Nicholson MD Erythrocyte distribution width (RBC) [Ratio] 12.1 % Normal 11.8-14.4 [facility] Comment on above: Performed By: #### C BC, PT, CMPX, ALEJANDRO, LIP, MG, KAM, TRIG #### [facility] [address] [place] [address] Back Tufter: Sadi Gambino MD #### IOCAL #### [address] [address] Back Tufter: Sha Nicholson MD Hematocrit (Bld) [Volume fraction] 37.1 % Low 40.7-50.3 [facility] Comment on above: Performed By: #### C BC, PT, CMPX, ALEJANDRO, LIP, MG, KAM, TRIG #### [facility] [address] [place] [address] Back Tufter: Sadi Gambino MD #### IOCAL #### [address] [address] Back Tufter: Sha Nicholson MD Hemoglobin (Bld) [Mass/Vol] 13.0 g/dL Normal 13.0-17.0 [facility] Comment on above: Performed By: #### C BC, PT, CMPX, ALEJANDRO, LIP, MG, KAM, TRIG #### [facility] [place] [address] Back Tufter: Sadi Gambino MD #### IOCAL #### [address] [address] Back Tufter: Sha Nicholson MD MCH (RBC) [Entitic mass] 30.8 pg Normal 25.2-33.5 [facility] Comment on above: Performed By: #### C BC, PT, CMPX, ALEJANDRO, LIP, MG, KAM, TRIG #### [facility] [address] [place] [address] Back Tufter: Sadi Gambino MD #### IOCAL #### [address] [address] Back Tufter: Sha Nicholson MD MCHC (RBC) [Mass/Vol] 35.0 g/dL High 28.4-34.8 [facility] Comment on above: Performed By: #### C BC, PT, CMPX, ALEJANDRO, LIP, MG, KAM, TRIG #### [facility] [address] [place] [address] Back Tufter: Sadi Gambino MD #### IOCAL #### [address] [address] Back Tufter: Sha Nicholson MD MCV (RBC) [Entitic vol] 87.9 fL Normal 82.6-102.9 M [facility] Comment on above: Performed By: #### C BC, PT, CMPX, ALEJANDRO, LIP, MG, KAM, TRIG #### [facility] [address] [place] [address] Back Tufter: Sadi Gambino MD #### IOCAL #### [address] [address] Back Tufter: Sha Nicholson MD NRBC Automated 0.0 per 100 WBC Normal 0.0 [facility] Comment on above: Performed By: #### C BC, PT, CMPX, ALEJANDRO, LIP, MG, KAM, TRIG #### [facility] [address] [place] [address] Back Tufter: Sadi Gambino MD #### IOCAL #### [address] [address] Back Tufter: Sha Nicholson MD Platelet mean volume (Bld) [Entitic vol] 10.8 fL Normal 8.1-13.5 [facility] Comment on above: Performed By: #### C BC, PT, CMPX, ALEJANDRO, LIP, MG, KAM, TRIG #### [facility] [address] [place] [address] Back Tufter: Sadi Gambino MD #### IOCAL #### [address] [address] Back Tufter: Sha Nicholson MD Platelets (Bld) [#/Vol] 208 10*3/uL Normal 138-453 [facility] Comment on above: Performed By: #### C BC, PT, CMPX, ALEJANDRO, LIP, MG, KAM, TRIG #### [facility] [address] [place] [address] Back Tufter: Sadi Gambino MD #### IOCAL #### [address] [address] Back Tufter: Sha Nicholson MD RBC (Bld) [#/Vol] 4.22 10*6/uL Normal 4.21-5.77 [facility] Comment on above: Performed By: #### C BC, PT, CMPX, ALEJANDRO, LIP, MG, KAM, TRIG #### [facility] [address] [place] [address] Back Tufter: Sadi Gambino MD #### IOCAL #### [address] [address] Back Tufter: Sha Nicholson MD WBC (Bld) [#/Vol] 9.1 10*3/uL Normal 3.5-11.3 [facility] Comment on above: Performed By: #### C BC, PT, CMPX, ALEJANDRO, LIP, MG, KAM, TRIG #### [facility] [address] [place] [address] Back Tufter: Sadi Gambino MD #### IOCAL #### [address] [address] Back Tufter: Sha Nicholson MD Auto Diff Performed NOT REPORTED Normal [facility] Comment on above: Performed By: #### C BC, PT, CMPX, ALEJANDRO, LIP, MG, KAM, TRIG #### [facility] [address] [place] [address] Back Tufter: Sadi Gambino MD #### IOCAL #### [address] [address] Back Tufter: Sha Nicholson MD Platelets (Bld) [#/Vol] NOT REPORTED Normal [facility] Comment on above: Performed By: #### C BC, PT, CMPX, ALEJANDRO, LIP, MG, KAM, TRIG #### [facility] [address] [place] [address] Back Tufter: Sadi Gambino MD #### IOCAL #### [address] [address] Back Tufter: Sha Nicholson MD RBC morphology finding Nom (Bld) NOT REPORTED Normal [facility] Comment on above: Performed By: #### C BC, PT, CMPX, ALEJANDRO, LIP, MG, KAM, TRIG #### [facility] [address] [place], [place] [phone] Back Tufter: Sadi Gambino MD #### IOCAL #### [address] [phone] Back Tufter: Sha Nicholson MD WBC Morphology NOT REPORTED Normal [facility] Comment on above: Performed By: #### C BC, PT, CMPX, ALEJANDRO, LIP, MG, KAM, TRIG #### [facility] [address] [place], [place] [phone] Back Tufter: Sadi Gambino MD #### IOCAL #### [address] [phone] Back Tufter: Sha Nicholson MD Comp Metab w/Bili Pron 06-10 (cont.) Normal [facility] Comment on above: Result Comment: Aver age GFR for 30-39 years old: 107 mL/min/1.73sq m Chronic Kidney Disease: <60 mL/min/1.73sq m Kidney failure: <15 mL/min/1.73sq m eGFR calculated using average adult body mass. Additional eGFR calculator available at: http://www.[employer].com/multiple_crcl_2012.htm Performed By: #### C BC, PT, CMPX, ALEJANDRO, LIP, MG, KAM, TRIG #### [facility] [address] [place], [place] [phone] Back Tufter: Sadi Gambino MD #### IOCAL #### [address] [phone] Back Tufter: Sha Nicholson MD Albumin [Mass/Vol] 3.5 g/dL Normal 3.5-5.2 [facility] Comment on above: Performed By: #### C BC, PT, CMPX, ALEJANDRO, LIP, MG, KAM, TRIG #### [facility] [place] [address] Back Tufter: Sadi Gambino MD #### IOCAL #### [address] [address] Back Tufter: Sha Nicholson MD Alkaline Phos 89 U/L Normal 40-129 [facility] Comment on above: Performed By: #### C BC, PT, CMPX, ALEJANDRO, LIP, MG, KAM, TRIG #### [facility] [address] [place] [address] Back Tufter: Sadi Gambino MD #### IOCAL #### [address] [address] Back Tufter: Sha Nicholson MD ALT [Catalytic activity/Vol] 100 U/L High 5-41 [facility] Comment on above: Performed By: #### C BC, PT, CMPX, ALEJANDRO, LIP, MG, KAM, TRIG #### [facility] [address] [place] [address] Back Tufter: Sadi Gambino MD #### IOCAL #### [address] [address] Back Tufter: Sha Nicholson MD Anion gap [Moles/Vol] 12 mmol/L Normal 9-17 [facility] Comment on above: Performed By: #### C BC, PT, CMPX, ALEJANDRO, LIP, MG, KAM, TRIG #### [facility] [address] [place] [address] Back Tufter: Sadi Gambino MD #### IOCAL #### [address] [address] Back Tufter: Sha Nicholson MD AST [Catalytic activity/Vol] 30 U/L Normal <40 [facility] Comment on above: Performed By: #### C BC, PT, CMPX, ALEJANDRO, LIP, MG, KAM, TRIG #### [facility] [place] [address] Back Tufter: Sadi Gambino MD #### IOCAL #### [address] [address] Back Tufter: Sha Nicholson MD Bilirubin Ql (U) 0.87 mg/dL Normal 0.3-1.2 [facility] Comment on above: Performed By: #### C BC, PT, CMPX, ALEJANDRO, LIP, MG, KAM, TRIG #### [facility] [address] [place] [address] Back Tufter: Sadi Gambino MD #### IOCAL #### [address] [address] Back Tufter: Sha Nicholson MD Bilirubin, Indirect 0.55 mg/dL Normal 0.00-1.00 [facility] Comment on above: Performed By: #### C BC, PT, CMPX, ALEJANDRO, LIP, MG, KAM, TRIG #### [facility] [address] [place] [address] Back Tufter: Sadi Gambino MD #### IOCAL #### [address] [address] Back Tufter: Sha Nicholson MD Bilirubin.direct [Mass/Vol] 0.32 mg/dL High <0.31 [facility] Comment on above: Performed By: #### C BC, PT, CMPX, ALEJANDRO, LIP, MG, KAM, TRIG #### [facility] [address] [place] [address] Back Tufter: Sadi Gambino MD #### IOCAL #### [address] [address] Back Tufter: Sha Nicholson MD Calcium [Mass/Vol] 8.5 mg/dL Low 8.6-10.4 [facility] Comment on above: Performed By: #### C BC, PT, CMPX, ALEJANDRO, LIP, MG, KAM, TRIG #### [facility] [address] [place] [address] Back Tufter: Sadi Gambino MD #### IOCAL #### [address] [address] Back Tufter: Sha Nicholson MD Chloride [Moles/Vol] 104 mmol/L Normal 98-107 [facility] Comment on above: Performed By: #### C BC, PT, CMPX, ALEJANDRO, LIP, MG, KAM, TRIG #### [facility] [address] [place] [address] Back Tufter: Sadi Gambino MD #### IOCAL #### [address] [address] Back Tufter: Sha Nicholson MD CO2 [Moles/Vol] 24 mmol/L Normal 20-31 [facility] Comment on above: Performed By: #### C BC, PT, CMPX, ALEJANDRO, LIP, MG, KAM, TRIG #### [facility] [address] [place] [address] Back Tufter: Sadi Gambino MD #### IOCAL #### [address] [address] Back Tufter: Sha Nicholson MD Creatinine [Mass/Vol] 0.46 mg/dL Low 0.70-1.20 [facility] Comment on above: Performed By: #### C BC, PT, CMPX, ALEJANDRO, LIP, MG, KAM, TRIG #### [facility] [address] [place] [address] Back Tufter: Sadi Gambino MD #### IOCAL #### [address] [address] Back Tufter: Sha Nicholson MD GFR, Amer >60 Normal >60 [facility] Comment on above: Performed By: #### C BC, PT, CMPX, ALEJANDRO, LIP, MG, KAM, TRIG #### [facility] [address] [place] [address] Back Tufter: Sadi Gambino MD #### IOCAL #### [address] [address] Back Tufter: Sha Nicholson MD GFR,non Amer >60 Normal >60 [facility] Comment on above: Performed By: #### C BC, PT, CMPX, ALEJANDRO, LIP, MG, KAM, TRIG #### [facility] [address] [place] [address] Back Tufter: Sadi Gambino MD #### IOCAL #### [address] [address] Back Tufter: Sha Nicholson MD Glucose [Mass/Vol] 88 mg/dL Normal 70-99 [facility] Comment on above: Performed By: #### C BC, PT, CMPX, ALEJANDRO, LIP, MG, KAM, TRIG #### [facility] [address] [place] [address] Back Tufter: Sadi Gambino MD #### IOCAL #### [address] [address] Back Tufter: Sha Nihcolson MD Potassium [Moles/Vol] 3.8 mmol/L Normal 3.7-5.3 [facility] Comment on above: Performed By: #### C BC, PT, CMPX, ALEJANDRO, LIP, MG, KAM, TRIG #### [facility] [address] [place] [address] Back Tufter: Sadi Gambino MD #### IOCAL #### [address] [address] Back Tufter: Sha Nicholson MD Protein [Mass/Vol] 6.0 g/dL Low 6.4-8.3 [facility] Comment on above: Performed By: #### C BC, PT, CMPX, ALEJANDRO, LIP, MG, KAM, TRIG #### [facility] [address] [place] [address] Back Tufter: Sadi Gambino MD #### IOCAL #### [address] [address] Back Tufter: Sha Nicholson MD Sodium [Moles/Vol] 140 mmol/L Normal 135-144 [facility] Comment on above: Performed By: #### C BC, PT, CMPX, ALEJANDRO, LIP, MG, KAM, TRIG #### [facility] [place] [address] Back Tufter: Sadi Gambino MD #### IOCAL #### [address] [address] Back Tufter: Sha Nicholson MD Urea nitrogen [Mass/Vol] 5 mg/dL Low 6-20 [facility] Comment on above: Performed By: #### C BC, PT, CMPX, ALEJANDRO, LIP, MG, KAM, TRIG #### [facility] [place] [address] Back Tufter: Sadi Gambino MD #### IOCAL #### [place] [place], [place] [id number] Back Tufter: Sha Nicholson MD Albumin/Globulin [Mass ratio] NOT REPORTED Normal 1.0-2.5 [facility] Comment on above: Performed By: #### C BC, PT, CMPX, ALEJANDRO, LIP, MG, KAM, TRIG #### [facility] [address] [place], [place] [phone] Back Tufter: Sadi Gambino MD #### IOCAL #### [address] [phone] Back Tufter: Sha Nicholson MD Staging: NOT REPORTED Normal [facility] Comment on above: Performed By: #### C BC, PT, CMPX, ALEJANDRO, LIP, MG, KAM, TRIG #### [facility] [address] [place], [place] 1927223 Back Tufter: Sadi Gambino MD #### IOCAL #### [address] [address] Back Tufter: Sha Nicholson MD Comp Metabolic w Bili Profil med 06-10-2019 Albumin [Mass/Vol] 3.5 g/dL 3.5 - 5.2 g/dL [place], [place] Albumin/Globulin [Mass ratio] NOT REPORTED [place], [place] ALP [Catalytic activity/Vol] 89 U/L 40 - 129 U/L [place] ALT [Catalytic activity/Vol] 100 U/L High 5 - 41 U/L [place] Anion gap [Moles/Vol] 12 mmol/L 9 - 17 mmol/L [place] AST [Catalytic activity/Vol] 30 U/L <40 [place] Bilirubin Ql (U) 0.87 mg/dL 0.3 - 1.2 mg/dL [place] Bilirubin, Indirect 0.55 mg/dL 0 - 1 mg/dL [place], [place] Bilirubin.direct [Mass/Vol] 0.32 mg/dL High <0.31 [place] Calcium [Mass/Vol] 8.5 mg/dL Low 8.6 - 10. 4 mg/dL [place] Chloride [Moles/Vol] 104 mmol/L 98 - 10 7 mmol/L [place] CO2 [Moles/Vol] 24 mmol/L 20 - 31 mmol/L [place] Creatinine [Mass/Vol] 0.46 mg/dL Low 0.7 - 1.2 mg/dL [place] GFR >60 >60 mL/min [place], [place] GFR Non- >60 >60 mL/min [place] GFR/1.73 sq M predicted among non-blacks MDRD (S/P/Bld) [Vol rate/Area] NOT REPORTED [place] GFR/1.73 sq M predicted among non-blacks MDRD (S/P/Bld) [Vol rate/Area] [place], [place] Comment on above: Average GFR for 30-3 9 years old: 107 mL/min/1.73sq m Chronic Kidney Disease: <60 mL/min/1.73sq m Kidney failure: <15 mL/min/1.73sq m eGFR calculated using average adult body mass. Additional eGFR calculator available at: http://www.[employer]/multiple_crcl_2011.htm Glucose [Mass/Vol] 88 mg/dL 70 - 99 mg/dL [place], [place] Potassium [Moles/Vol] 3.8 mmol/L 3.7 - 5.3 mmol/L [place] Protein [Mass/Vol] 6.0 g/dL Low 6.4 - 8.3 g/dL [place] Sodium [Moles/Vol] 140 mmol/L 135 - 144 mmol/L [place] Urea nitrogen [Mass/Vol] 5 mg/dL Low 6 - 20 mg/dL [place] Lipaseon 06-10-2019 Lipase [Catalytic activity/Vol] 198 U/L High 13-60 [facility] Comment on above: Performed By: #### C BC, PT, CMPX, ALEJANDRO, LIP, MG, KAM, TRIG #### [facility] [address] [place] [address] Back Tufter: Sadi Gambino MD #### IOCAL #### [address] [address] Back Tufter: Sha Nicholson MD Lipase [Catalytic activity/Vol] 198 U/L High 13 - 60 U/L [place] Otheron 06-10-2019 Interpretation and review of laboratory results Abnormal [place] Amylaseon 06-09-2019 Amylase [Catalytic activity/Vol] 645 U/L Critically high 28-100 [facility] Comment on above: Performed By: #### C BC, PT, CMPX, ALEJANDRO, LIP, MG, KAM, TRIG #### [facility] [address] [place] [address] Back Tufter: Sadi Gambino MD #### IOCAL #### [address] [address] Back Tufter: Sha Nicholson MD Amylase [Catalytic activity/Vol] 645 U/L Critically high 28 - 100 U/L [place] CBCon 06-09-2019 Erythrocyte distribution width (RBC) [Ratio] 12.2 % Normal 11.8-14.4 [facility] Comment on above: Performed By: #### C BC, PT, CMPX, ALEJANDRO, LIP, MG, KAM, TRIG #### [facility] [address] [place] [address] Back Tufter: Sadi Gambino MD #### IOCAL #### [address] [address] Back Tufter: Sha Nicholson MD Hematocrit (Bld) [Volume fraction] 39.0 % Low 40.7-50.3 [facility] Comment on above: Performed By: #### C BC, PT, CMPX, ALEJANDRO, LIP, MG, KAM, TRIG #### [facility] [address] [place] [address] Back Tufter: Sadi Gambino MD #### IOCAL #### [address] [address] Back Tufter: Sha Nicholson MD Hemoglobin (Bld) [Mass/Vol] 13.8 g/dL Normal 13.0-17.0 [facility] Comment on above: Performed By: #### C BC, PT, CMPX, ALEJANDRO, LIP, MG, KAM, TRIG #### [facility] [address] [place] [address] Back Tufter: Sadi Gambino MD #### IOCAL #### [address] [address] Back Tufter: Sha Nicholson MD MCH (RBC) [Entitic mass] 30.9 pg Normal 25.2-33.5 [facility] Comment on above: Performed By: #### C BC, PT, CMPX, ALEJANDRO, LIP, MG, KAM, TRIG #### [facility] [address] [place] [address] Back Tufter: Sadi Gambino MD #### IOCAL #### [address] [address] Back Tufter: Sha Nicholson MD MCHC (RBC) [Mass/Vol] 35.4 g/dL High 28.4-34.8 [facility] Comment on above: Performed By: #### C BC, PT, CMPX, ALEJANDRO, LIP, MG, KAM, TRIG #### [facility] [address] [place] [address] Back Tufter: Sadi Gambino MD #### IOCAL #### [address] [address] Back Tufter: Sha Nicholson MD MCV (RBC) [Entitic vol] 87.4 fL Normal 82.6-102.9 M [facility] Comment on above: Performed By: #### C BC, PT, CMPX, ALEJANDRO, LIP, MG, KAM, TRIG #### [facility] [address] [place] [address] Back Tufter: Sadi Gambino MD #### IOCAL #### [address] [address] Back Tufter: Sha Nicholson MD NRBC Automated 0.0 per 100 WBC Normal 0.0 [facility] Comment on above: Performed By: #### C BC, PT, CMPX, ALEJANDRO, LIP, MG, KAM, TRIG #### [facility] [place] [address] Back Tufter: Sadi Gambino MD #### IOCAL #### [address] [address] Back Tufter: Sha Nicholson MD Platelet mean volume (Bld) [Entitic vol] 10.7 fL Normal 8.1-13.5 [facility] Comment on above: Performed By: #### C BC, PT, CMPX, ALEJANDRO, LIP, MG, KAM, TRIG #### [facility] [place] [address] Back Tufter: Sadi Gambino MD #### IOCAL #### [address] [address] Back Tufter: Sha Nicholson MD Platelets (Bld) [#/Vol] 186 10*3/uL Normal 138-453 [facility] Comment on above: Performed By: #### C BC, PT, CMPX, ALEJANDRO, LIP, MG, KAM, TRIG #### [facility] [address] [place] [address] Back Tufter: Sadi Gambino MD #### IOCAL #### [address] [address] Back Tufter: Sha Nicholson MD RBC (Bld) [#/Vol] 4.46 10*6/uL Normal 4.21-5.77 [facility] Comment on above: Performed By: #### C BC, PT, CMPX, ALEJANDRO, LIP, MG, KAM, TRIG #### [facility] [address] [place] [address] Back Tufter: Sadi Gambino MD #### IOCAL #### [address] [address] Back Tufter: Sha Nicholson MD WBC (Bld) [#/Vol] 11.5 10*3/uL High 3.5-11.3 [facility] Comment on above: Performed By: #### C BC, PT, CMPX, ALEJANDRO, LIP, MG, KAM, TRIG #### [facility] [address] [place] [address] Back Tufter: Sadi Gambino MD #### IOCAL #### [address] [address] Back Tufter: Sha Nicholson MD Erythrocyte distribution width (RBC) [Ratio] 12.2 % 11.8 - 14.4 % [place] Hematocrit (Bld) [Volume fraction] 39.0 % Low 40.7 - 50.3 % [place] Hemoglobin (Bld) [Mass/Vol] 13.8 g/dL 13 - 17 g/dL [place] Interpretation and review of laboratory results Abnormal [place] MCH (RBC) [Entitic mass] 30.9 pg 25.2 - 33.5 pg [place] MCHC (RBC) [Mass/Vol] 35.4 g/dL High 28.4 - 34.8 g/dL [place] MCV (RBC) [Entitic vol] 87.4 fL 82.6 - 102.9 fL [place] Platelet mean volume (Bld) [Entitic vol] 10.7 fL 8.1 - 13.5 fL [place], [place] Platelets (Bld) [#/Vol] 186 10*3/uL [place] RBC (Bld) [#/Vol] 4.46 10*6/uL 4.21 - 5.7 7 m/uL [place] WBC (Bld) [#/Vol] 0.0 10*3/uL 0.0 per 10 0 WBC [place] WBC (Bld) [#/Vol] 11.5 10*3/uL [place] Calcium, Ionicon 06-09-2019 Calcium [Mass/Vol] 1.23 mmol/L Normal 1.13-1.33 [facility] Comment on above: Performed By: #### C BC, PT, CMPX, ALEJANDRO, LIP, MG, KAM, TRIG #### [facility] [address] [place], [place] [phone] Back Tufter: Sadi Gambino MD #### IOCAL #### [facility] [address] [place], [place] [phone] Back Tufter: Sha Nicholson MD Calcium, Ionizedon 9 Calcium [Mass/Vol] 1.23 mmol/L 1.13 - 1. 33 mmol/L [place], [place] Comp Metabolic Pr/rfx MGon 1 08-09-2018 (cont.) Normal [facility] Comment on above: Result Comment: Aver age GFR for 30-39 years old: 107 mL/min/1.73sq m Chronic Kidney Disease: <60 mL/min/1.73sq m Kidney failure: <15 mL/min/1.73sq m eGFR calculated using average adult body mass. Additional eGFR calculator available at: http://www.[employer].Ulti[employer]en/multiple_crcl_2012.htm Performed By: #### C BC, PT, CMPX, ALEJANDRO, LIP, MG, KAM, TRIG #### [facility] [address] [place] [address] Back Tufter: Sadi Gambino MD #### IOCAL #### [address] [address] Back Tufter: Sha Nicholson MD Albumin [Mass/Vol] 3.6 g/dL Normal 3.5-5.2 [facility] Comment on above: Performed By: #### C BC, PT, CMPX, ALEJANDRO, LIP, MG, KAM, TRIG #### [facility] [address] [place] [address] Back Tufter: Sadi Gambino MD #### IOCAL #### [address] [address] Back Tufter: Sha Nicholson MD Alkaline Phos 109 U/L Normal 40-129 [facility] Comment on above: Performed By: #### C BC, PT, CMPX, ALEJANDRO, LIP, MG, KAM, TRIG #### [facility] [address] [place] [address] Back Tufter: Sadi Gambino MD #### IOCAL #### [address] [address] Back Tufter: Sha Nicholson MD ALT [Catalytic activity/Vol] 119 U/L High 5-41 [facility] Comment on above: Performed By: #### C BC, PT, CMPX, ALEJANDRO, LIP, MG, KAM, TRIG #### [facility] [address] [place] [address] Back Tufter: Sadi Gambino MD #### IOCAL #### [address] [address] Back Tufter: Sha Nicholson MD Anion gap [Moles/Vol] 10 mmol/L Normal 9-17 [facility] Comment on above: Performed By: #### C BC, PT, CMPX, ALEJANDRO, LIP, MG, KAM, TRIG #### [facility] [address] [place] [address] Back Tufter: Sadi Gambino MD #### IOCAL #### [address] [address] Back Tufter: Sha Nicholson MD AST [Catalytic activity/Vol] 31 U/L Normal <40 [facility] Comment on above: Performed By: #### C BC, PT, CMPX, ALEJANDRO, LIP, MG, KAM, TRIG #### [facility] [address] [place] [address] Back Tufter: Sadi Gambino MD #### IOCAL #### [address] [address] Back Tufter: Sha Nicholson MD Bilirubin Ql (U) 1.04 mg/dL Normal 0.3-1.2 [facility] Comment on above: Performed By: #### C BC, PT, CMPX, ALEJANDRO, LIP, MG, KAM, TRIG #### [facility] [place] [address] Back Tufter: Sadi Gambino MD #### IOCAL #### [address] [address] Back Tufter: Sha Nicholson MD BUN/CRE Ratio 15 Normal 9-20 [facility] Comment on above: Performed By: #### C BC, PT, CMPX, ALEJANDRO, LIP, MG, KAM, TRIG #### [facility] [address] [place] [address] Back Tufter: Sadi Gambino MD #### IOCAL #### [address] [address] Back Tufter: Sha Nicholson MD Calcium [Mass/Vol] 8.5 mg/dL Low 8.6-10.4 [facility] Comment on above: Performed By: #### C BC, PT, CMPX, ALEJANDRO, LIP, MG, KAM, TRIG #### [facility] [address] [place] [address] Back Tufter: Sadi Gambino MD #### IOCAL #### [address] [address] Back Tufter: Sha Nicholson MD Chloride [Moles/Vol] 101 mmol/L Normal 98-107 [facility] Comment on above: Performed By: #### C BC, PT, CMPX, ALEJANDRO, LIP, MG, KAM, TRIG #### [facility] [address] [place] [address] Back Tufter: Sadi Gambino MD #### IOCAL #### [address] [address] Back Tufter: Sha Nicholson MD CO2 [Moles/Vol] 25 mmol/L Normal 20-31 [facility] Comment on above: Performed By: #### C BC, PT, CMPX, ALEJANDRO, LIP, MG, KAM, TRIG #### [facility] [address] [place] [address] Back Tufter: Sadi Gambino MD #### IOCAL #### [address] [address] Back Tufter: Sha Nicholson MD Creatinine [Mass/Vol] 0.47 mg/dL Low 0.70-1.20 [facility] Comment on above: Performed By: #### C BC, PT, CMPX, ALEJANDRO, LIP, MG, KAM, TRIG #### [facility] [address] [place] [address] Back Tufter: Sadi Gambino MD #### IOCAL #### [address] [address] Back Tufter: Sha Nicholson MD GFR, Amer >60 Normal >60 [facility] Comment on above: Performed By: #### C BC, PT, CMPX, ALEJANDRO, LIP, MG, KAM, TRIG #### [facility] [address] [place] [address] Back Tufter: Sadi Gambino MD #### IOCAL #### [address] [address] Back Tufter: Sha Nicholson MD GFR,non Amer >60 Normal >60 [facility] Comment on above: Performed By: #### C BC, PT, CMPX, ALEJANDRO, LIP, MG, KAM, TRIG #### [facility] [address] [place] [address] Back Tufter: Sadi Gambino MD #### IOCAL #### [address] [address] Back Tufter: Sha Nicholson MD Glucose [Mass/Vol] 78 mg/dL Normal 70-99 [facility] Comment on above: Performed By: #### C BC, PT, CMPX, ALEJANDRO, LIP, MG, KAM, TRIG #### [facility] [address] [place] [address] Back Tufter: Sadi Gambino MD #### IOCAL #### [address] [address] Back Tufter: Sha Nicholson MD Potassium [Moles/Vol] 3.6 mmol/L Low 3.7-5.3 [facility] Comment on above: Performed By: #### C BC, PT, CMPX, ALEJANDRO, LIP, MG, KAM, TRIG #### [facility] [address] [place] [address] Back Tufter: Sadi Gambino MD #### IOCAL #### [address] [address] Back Tufter: Sha Nicholson MD Protein [Mass/Vol] 6.0 g/dL Low 6.4-8.3 [facility] Comment on above: Performed By: #### C BC, PT, CMPX, ALEJANDRO, LIP, MG, KAM, TRIG #### [facility] [address] [place] [address] Back Tufter: Sadi Gambino MD #### IOCAL #### [address] [address] Back Tufter: Sha Nicholson MD Sodium [Moles/Vol] 136 mmol/L Normal 135-144 [facility] Comment on above: Performed By: #### C BC, PT, CMPX, ALEJANDRO, LIP, MG, KAM, TRIG #### [facility] [address] [place] [address] Back Tufter: Sadi Gambino MD #### IOCAL #### [address] [address] Back Tufter: Sha Nicholson MD Urea nitrogen [Mass/Vol] 7 mg/dL Normal 6-20 [facility] Comment on above: Performed By: #### C BC, PT, CMPX, ALEJANDRO, LIP, MG, KAM, TRIG #### [facility] [address] [place] [address] Back Tufter: Sadi Gambino MD #### IOCAL #### [address] [phone] Back Tufter: Sha Nicholson MD Albumin/Globulin [Mass ratio] NOT REPORTED Normal 1.0-2.5 [facility] Comment on above: Performed By: #### C BC, PT, CMPX, ALEJANDRO, LIP, MG, KAM, TRIG #### [facility] [address] [place] [phone] Back Tufter: Sadi Gambino MD #### IOCAL #### [address] [phone] Back Tufter: Sha Nicholson MD Staging: NOT REPORTED Normal [facility] Comment on above: Performed By: #### C BC, PT, CMPX, ALEJANDRO, LIP, MG, KAM, TRIG #### [facility] [address] [place] [address] [phone] Back Tufter: Sadi Gambino MD #### IOCAL #### [address] [address] Back Tufter: Sha Nicholson MD Comprehensive Metabolic Pane l w/ Reflex to MGon 06-09-2019 Albumin [Mass/Vol] 3.6 g/dL 3.5 - 5.2 g/dL [place], [place] Albumin/Globulin [Mass ratio] NOT REPORTED [place] ALP [Catalytic activity/Vol] 109 U/L 40 - 129 U/L [place] ALT [Catalytic activity/Vol] 119 U/L High 5 - 41 U/L [place] Anion gap [Moles/Vol] 10 mmol/L 9 - 17 mmol/L [place] AST [Catalytic activity/Vol] 31 U/L <40 [place] Bilirubin Ql (U) 1.04 mg/dL 0.3 - 1.2 mg/dL [place] Bun/Cre Ratio 15 [place] Calcium [Mass/Vol] 8.5 mg/dL Low 8.6 - 10. 4 mg/dL [place] Chloride [Moles/Vol] 101 mmol/L 98 - 10 7 mmol/L [place] CO2 [Moles/Vol] 25 mmol/L 20 - 31 mmol/L [place] Creatinine [Mass/Vol] 0.47 mg/dL Low 0.7 - 1.2 mg/dL [place] GFR >60 >60 mL/min [place] GFR Non- >60 >60 mL/min [place] GFR/1.73 sq M predicted among non-blacks MDRD (S/P/Bld) [Vol rate/Area] [place], [place] Comment on above: Average GFR for 30-3 9 years old: 107 mL/min/1.73sq m Chronic Kidney Disease: <60 mL/min/1.73sq m Kidney failure: <15 mL/min/1.73sq m eGFR calculated using average adult body mass. Additional eGFR calculator available at: http://www.[employer]/multiple_crcl_2012.htm GFR/1.73 sq M predicted among non-blacks MDRD (S/P/Bld) [Vol rate/Area] NOT REPORTED [place], [place] Glucose [Mass/Vol] 78 mg/dL 70 - 99 mg/dL [place] Potassium [Moles/Vol] 3.6 mmol/L Low 3.7 - 5.3 mmol/L [place] Protein [Mass/Vol] 6.0 g/dL Low 6.4 - 8.3 g/dL [place] Sodium [Moles/Vol] 136 mmol/L 135 - 144 mmol/L [place], [place] Urea nitrogen [Mass/Vol] 7 mg/dL 6 - 20 mg/dL [place] Lipaseon 06-09-2019 Lipase [Catalytic activity/Vol] 688 U/L High 13-60 [facility] Comment on above: Performed By: #### C BC, PT, CMPX, ALEJANDRO, LIP, MG, KAM, TRIG #### [facility] [address] [place], [place] [phone] Back Tufter: Sadi Gambino MD #### IOCAL #### [facility] [employer] [facility] [place], [place] [phone] Back Tufter: Sha Nicholson MD Lipase [Catalytic activity/Vol] 688 U/L High 13 - 60 U/L [place] Magnesiumon 06-09-2019 Magnesium [Mass/Vol] 1.8 mg/dL Normal 1.6-2.6 [facility] Comment on above: Performed By: #### C BC, PT, CMPX, ALEJANDRO, LIP, MG, KAM, TRIG #### [facility] [address] [place], [place] [phone] Back Tufter: Sadi Gambino MD #### IOCAL #### [address] [phone] Back Tufter: Sha Nicholson MD Magnesium [Mass/Vol] 1.8 mg/dL 1.6 - 2 .6 mg/dL [place] Otheron 06-09-2019 Interpretation and review of laboratory results Abnormal [place] PTon 06-09-2019 INR Coag (PPP) [Relative time] 1.0 {INR} Normal [facility] Comment on above: Result Comment: Therapeutic Range: Moderate Anticoagulant Intensity: INR = 2.0-3.0 High Anticoagulant Intensity: INR = 2.5-3.5 High anticoagulant intensity for patients with a mechanical prosthetic heart valve, thrombosis and antiphospholipid syndrome, or myocardial infarction. Performed By: #### C BC, PT, CMPX, ALEJANDRO, LIP, MG, KAM, TRIG #### [facility] [address] [place] [address] Back Tufter: Sadi Gambino MD #### IOCAL #### [address] [phone] Back Tufter: Sha Nicholson MD PT Coag (PPP) [Time] 10.6 s Normal 9.7-11.6 [facility] Comment on above: Performed By: #### C BC, PT, CMPX, ALEJANDRO, LIP, MG, KAM, TRIG #### [facility] [address] [place] [address] Back Tufter: Sadi Gambino MD #### IOCAL #### [address] [phone] Back Tufter: Sha Nicholson MD Phosphoruson 06-09-2019 Phosphate [Mass/Vol] 2.7 mg/dL 2.5 - 4 .5 mg/dL [place], [place] Phosphorus, Inorg.on 019 Phosphorus, Inorg. 2.7 mg/dL Normal 2.5-4.5 [facility] Comment on above: Performed By: #### C BC, PT, CMPX, ALEJANDRO, LIP, MG, KMA, TRIG #### [facility] [place] [address] Back Tufter: Sadi Gambino MD #### IOCAL #### [address] [address] Back Tufter: Sha Nicholson MD Protime-INRon 06-09-2019 INR Coag (PPP) [Relative time] 1.0 {INR} [place], [place] Comment on above: Therapeutic Range: Moderate Anticoagulant Intensity: INR = 2.0-3.0 High Anticoagulant Intensity: INR = 2.5-3.5 High anticoagulant intensity for patients with a mechanical prosthetic heart valve, thrombosis and antiphospholipid syndrome, or myocardial infarction. PT Coag (PPP) [Time] 10.6 s [place] Triglycerideon 06-09-2019 Triglyceride [Mass/Vol] 122 mg/dL <150 M [place], [place] Comment on above: Triglyceride Guidelines: <150 Desirable 150-199 Borderline 200-499 High >499 Very high Based on AHA Guidelines for fasting triglyceride, May 2012. Triglycerideson 06-09-2019 Triglyceride [Mass/Vol] 122 mg/dL Normal <150 M [facility] Comment on above: Result Comment: Triglyceride Guidelines: <150 Desirable 150-199 Borderline 200-499 High >499 Very high Based on AHA Guidelines for fasting triglyceride, May 2012. Performed By: #### C BC, PT, CMPX, ALEJANDRO, LIP, MG, KAM, TRIG #### [facility] [address] [place], [place] [phone] Back Tufter: Sadi Gambino MD #### IOCAL #### [address] [address] Back Tufter: Sha Nicholson MD Hepatitis Acute [facility] 06-08 Hep A Ab,IgM NONREACTIVE Normal NR [facility] Comment on above: Performed By: #### P HEP #### [address] [address] Back Tufter: Sha Nicholson MD Hep B Core Ab,IgM NONREACTIVE Normal [facility] Comment on above: Performed By: #### P HEP #### [address] [address] Back Tufter: Sha Nicholson MD Hep B Surf Ag NONREACTIVE Normal NR [facility] Comment on above: Performed By: #### P HEP #### [address] [address] Back Tufter: Sha Nicholson MD Hep C Ab NONREACTIVE Normal NR [facility] Comment on above: Result Comment: The hepatitis C procedure used in our laboratory is a Chemiluminescent test specific for three recombinant HCV antigens. A negative anti-HCV result indicates that the antibodies to hepatitis C virus are not present at this time. Individuals with reactive anti-HCV should be considered infected and infectious until proven otherwise. Confirmation of all equivocal or reactive results is recommended by ordering HCV RNA by PCR. Performed By: #### P HEP #### [address] [place] [address] Back Tufter: Sha Nicholson MD HAV IgM IA Qn (S) NONREACTIVE NONREACTIVE [place] Hep B Core Ab, IgM NONREACTIVE NONREACTIVE [place] Hepatitis B Surface Ag NONREACTIVE NONREACTIVE [place] Hepatitis C Ab NONREACTIVE NONREACTIVE [place] Comment on above: The hepatitis C procedure used in our laboratory is a Chemiluminescent test specific for three recombinant HCV antigens. A negative anti-HCV result indicates that the antibodies to hepatitis C virus are not present at this time. Individuals with reactive anti-HCV should be considered infected and infectious until proven otherwise. Confirmation of all equivocal or reactive results is recommended by ordering HCV RNA by PCR. CBCon 06-07-2019 Erythrocyte distribution width (RBC) [Ratio] 12.4 % 11.8 - 14.4 % [place] Hematocrit (Bld) [Volume fraction] 47.2 % 40.7 - 50.3 % [place] Hemoglobin (Bld) [Mass/Vol] 16.0 g/dL 13 - 17 g/dL [place] Interpretation and review of laboratory results Abnormal [place] MCH (RBC) [Entitic mass] 30.4 pg 25.2 - 33.5 pg [place] MCHC (RBC) [Mass/Vol] 33.9 g/dL 28.4 - 34.8 g/dL [place] MCV (RBC) [Entitic vol] 89.7 fL 82.6 - 102.9 fL [place] Platelet mean volume (Bld) [Entitic vol] 10.6 fL 8.1 - 13.5 fL [place] Platelets (Bld) [#/Vol] 258 10*3/uL [place] RBC (Bld) [#/Vol] 5.26 10*6/uL 4.21 - 5.7 7 m/uL [place] WBC (Bld) [#/Vol] 15.4 10*3/uL [place] WBC (Bld) [#/Vol] 0.0 10*3/uL 0.0 per 10 0 WBC [place] Erythrocyte distribution width (RBC) [Ratio] 12.4 % 11.8 - 14.4 % [place] Hematocrit (Bld) [Volume fraction] 44.2 % 40.7 - 50.3 % [place] Hemoglobin (Bld) [Mass/Vol] 15.0 g/dL 13 - 17 g/dL [place] MCH (RBC) [Entitic mass] 30.7 pg 25.2 - 33.5 pg [place] MCHC (RBC) [Mass/Vol] 33.9 g/dL 28.4 - 34.8 g/dL [place] MCV (RBC) [Entitic vol] 90.4 fL 82.6 - 102.9 fL [place] Platelet mean volume (Bld) [Entitic vol] 10.4 fL 8.1 - 13.5 fL [place] Platelets (Bld) [#/Vol] 227 10*3/uL [place] RBC (Bld) [#/Vol] 4.89 10*6/uL 4.21 - 5.7 7 m/uL [place] WBC (Bld) [#/Vol] 10.1 10*3/uL [place] WBC (Bld) [#/Vol] 0.0 10*3/uL 0.0 per 10 0 WBC [place] Comprehensive Metabolic Pane karla 06-07-2019 Albumin [Mass/Vol] 4.4 g/dL 3.5 - 5.2 g/dL [place] Albumin/Globulin [Mass ratio] 1.5 {ratio} [place] ALP [Catalytic activity/Vol] 120 U/L 40 - 129 U/L [place] ALT [Catalytic activity/Vol] 261 U/L High 5 - 41 U/L [place] Anion gap [Moles/Vol] 12 mmol/L 9 - 17 mmol/L [place] AST [Catalytic activity/Vol] 123 U/L High <40 [place] Bilirubin Ql (U) 5.24 mg/dL High 0.3 - 1.2 mg/dL [place] Bun/Cre Ratio 19 [place] Calcium [Mass/Vol] 9.3 mg/dL 8.6 - 10. 4 mg/dL [place] Chloride [Moles/Vol] 98 mmol/L 98 - 10 7 mmol/L [place] CO2 [Moles/Vol] 26 mmol/L 20 - 31 mmol/L [place] Creatinine [Mass/Vol] 0.57 mg/dL Low 0.7 - 1.2 mg/dL [place] GFR >60 >60 mL/min [place] GFR Non- >60 >60 mL/min [place] Glucose [Mass/Vol] 89 mg/dL 70 - 99 mg/dL [place] Interpretation and review of laboratory results Abnormal [place] Potassium [Moles/Vol] 3.5 mmol/L Low 3.7 - 5.3 mmol/L [place] Protein [Mass/Vol] 7.4 g/dL 6.4 - 8.3 g/dL [place] Sodium [Moles/Vol] 136 mmol/L 135 - 144 mmol/L [place], [place] Urea nitrogen [Mass/Vol] 11 mg/dL 6 - 20 mg/dL [place] Comprehensive Metabolic Pane l w/ Reflex to MGon 06-07-2019 Albumin [Mass/Vol] 3.9 g/dL 3.5 - 5.2 g/dL [place] Albumin/Globulin [Mass ratio] 1.4 {ratio} [place] ALP [Catalytic activity/Vol] 90 U/L 40 - 129 U/L [place] ALT [Catalytic activity/Vol] 289 U/L High 5 - 41 U/L [place] Anion gap [Moles/Vol] 13 mmol/L 9 - 17 mmol/L [place] AST [Catalytic activity/Vol] 201 U/L High <40 [place] Bilirubin Ql (U) 3.38 mg/dL High 0.3 - 1.2 mg/dL [place] Bun/Cre Ratio 15 [place] Calcium [Mass/Vol] 9.3 mg/dL 8.6 - 10. 4 mg/dL [place] Chloride [Moles/Vol] 99 mmol/L 98 - 10 7 mmol/L [place] CO2 [Moles/Vol] 22 mmol/L 20 - 31 mmol/L [place] Creatinine [Mass/Vol] 0.61 mg/dL Low 0.7 - 1.2 mg/dL [place] GFR >60 >60 mL/min [place] GFR Non- >60 >60 mL/min [place] Glucose [Mass/Vol] 88 mg/dL 70 - 99 mg/dL [place] Interpretation and review of laboratory results Abnormal [place] Potassium [Moles/Vol] 4.3 mmol/L 3.7 - 5.3 mmol/L [place] Protein [Mass/Vol] 6.7 g/dL 6.4 - 8.3 g/dL [place] Sodium [Moles/Vol] 134 mmol/L Low 135 - 144 mmol/L [place], [place] Urea nitrogen [Mass/Vol] 9 mg/dL 6 - 20 mg/dL [place] EKG 12 Leadon 06-07-2019 Atrial Rate 80 BPM [place], [place] P [place] -6 degrees [place] P-R Interval 146 ms [place] Q-T Interval 380 ms [place] QRS Duration 104 ms [place] QTc Calculation (Bazett) 438 ms [place] R [place] -6 degrees [place], [place] T [place] 25 degrees [place] Ventricular Rate 80 BPM [place] Jasen, Mhpn Incoming Ekg Results From [facility] - 06/07/2019 5:43 AM EDT Normal sinus rhythm Normal ECG When compared with ECG of 17-FEB-2018 18:55, No significant change was found Confirmed by Abran RITCHIE MD ([id number]) on 06/07/2019 5:43:09 AM [place] Normal sinus rhythm Normal ECG When compared with ECG of 17-FEB-2018 18:55, No significant change was found Confirmed by Abran RITCHIE MD ([id number]) on 06/07/2019 5:43:09 AM [place] Lactic Acid, Plasmaon 2018 Lactate [Moles/Vol] 1.1 mmol/L 0.5 - 2. 2 mmol/L [place] Lactic Acid, Whole Blood NOT REPORTED 0.7 - 2.1 mmol/L [place] Lipaseon 06-07-2019 Interpretation and review of laboratory results Abnormal [place] Lipase [Catalytic activity/Vol] U/L Critically high 13 - 60 U/L [place] Metabolic Panelon 06-07-2019 GFR/1.73 sq M predicted among non-blacks MDRD (S/P/Bld) [Vol rate/Area] [place], [place] Comment on above: Average GFR for 30-3 9 years old: 107 mL/min/1.73sq m Chronic Kidney Disease: <60 mL/min/1.73sq m Kidney failure: <15 mL/min/1.73sq m eGFR calculated using average adult body mass. Additional eGFR calculator available at: http://www.[employer]/multiple_crcl_2012.htm Stage 1: Some kidney damage normal GFR Stage 2: Mild kidney damage GFR 60-89 Stage 3: Moderate kidney damage GFR 30-59 Stage 4: Severe kidney damage GFR 15-29 Stage 5: Severe kidney damage GFR <15 ESRD - chronic treatment by dialysis or transplant GFR/1.73 sq M predicted among non-blacks MDRD (S/P/Bld) [Vol rate/Area] [place], [place] Comment on above: Average GFR for 30-3 9 years old: 107 mL/min/1.73sq m Chronic Kidney Disease: <60 mL/min/1.73sq m Kidney failure: <15 mL/min/1.73sq m eGFR calculated using average adult body mass. Additional eGFR calculator available at: http://www.[employer]/multiple_crcl_2012.htm Stage 1: Some kidney damage normal GFR Stage 2: Mild kidney damage GFR 60-89 Stage 3: Moderate kidney damage GFR 30-59 Stage 4: Severe kidney damage GFR 15-29 Stage 5: Severe kidney damage GFR <15 ESRD - chronic treatment by dialysis or transplant US GALLBLADDER RUQon 019 Cholesterol [Mass/Vol] Cholelithiasis. Abnormal findings of the gallbladder, suspicious for acute cholecystitis. [place] Jasen, Mhpn Incoming Radiant Results From [facility] - 06/07/2019 7:57 AM EDT EXAMINATION: RIGHT UPPER QUADRANT ULTRASOUND 06/07/2019 7:01 am COMPARISON: CT abdomen pelvis June 06, 2019 HISTORY: ORDERING SYSTEM PROVIDED HISTORY: concern for cholecystitis TECHNOLOGIST PROVIDED HISTORY: concern for cholecystitis FINDINGS: LIVER: The liver demonstrates normal echogenicity without evidence of intrahepatic biliary ductal dilatation. BILIARY SYSTEM: There are multiple gallstones. There is thickened gallbladder wall with question of pericholecystic fluid. There is positive sonographic Cho's sign. Common bile duct is at the upper limits of normal in size measuring 6 mm. RIGHT KIDNEY: The right kidney is grossly unremarkable without evidence of hydronephrosis. PANCREAS: The pancreas sub-visualized. OTHER: No evidence of right upper quadrant ascites. IMPRESSION: Cholelithiasis. Abnormal findings of the gallbladder, suspicious for acute cholecystitis. [facility] [place] EXAMINATION: RIGHT UPPER QUADRANT ULTRASOUND 06/07/2019 7:01 am COMPARISON: CT abdomen pelvis June 06, 2019 HISTORY: ORDERING SYSTEM PROVIDED HISTORY: concern for cholecystitis TECHNOLOGIST PROVIDED HISTORY: concern for cholecystitis FINDINGS: LIVER: The liver demonstrates normal echogenicity without evidence of intrahepatic biliary ductal dilatation. BILIARY SYSTEM: There are multiple gallstones. There is thickened gallbladder wall with question of pericholecystic fluid. There is positive sonographic Cho's sign. Common bile duct is at the upper limits of normal in size measuring 6 mm. RIGHT KIDNEY: The right kidney is grossly unremarkable without evidence of hydronephrosis. PANCREAS: The pancreas sub-visualized. OTHER: No evidence of right upper quadrant ascites. [facility] [place] [facility] 06-06-2019 aPTT Coag (Bld) [Time] 26.9 s [place] CBC auto differentialon 05-09 Basophils (Bld) [#/Vol] 0.05 10*3/uL [place] Basophils/100 WBC (Bld) 0 % 0 - 2 % [place] Differential Type NOT REPORTED [place] Eosinophils (Bld) [#/Vol] 0.09 10*3/uL [place] Eosinophils/100 WBC (Bld) 1 % 1 - 4 % [place] Erythrocyte distribution width (RBC) [Ratio] 12.0 % 11.8 - 14.4 % [place] Hematocrit (Bld) [Volume fraction] 48.2 % 40.7 - 50.3 % [place] Hemoglobin (Bld) [Mass/Vol] 17.0 g/dL 13 - 17 g/dL [place] Immature granulocytes (Bld) [#/Vol] 0.06 10*3/uL [place] Immature granulocytes (Bld) [#/Vol] 0 % 0 [place] Interpretation and review of laboratory results Abnormal [place] Lymphocytes (Bld) [#/Vol] 1.45 10*3/uL [place] Lymphocytes/100 WBC (Bld) 10 % Low 24 - 43 % [place] MCH (RBC) [Entitic mass] 31.1 pg 25.2 - 33.5 pg [place] MCHC (RBC) [Mass/Vol] 35.3 g/dL High 28.4 - 34.8 g/dL [place] MCV (RBC) [Entitic vol] 88.1 fL 82.6 - 102.9 fL [place] Monocytes (Bld) [#/Vol] 0.82 10*3/uL [place] Monocytes/100 WBC (Bld) 6 % 3 - 12 % [place] Platelet mean volume (Bld) [Entitic vol] 10.5 fL 8.1 - 13.5 fL [place] Platelets (Bld) [#/Vol] 268 10*3/uL [place] Platelets (Bld) [#/Vol] NOT REPORTED [place] RBC (Bld) [#/Vol] 5.47 10*6/uL 4.21 - 5.7 7 m/uL [place] RBC morphology finding Nom (Bld) NOT REPORTED [place] Segmented neutrophils/100 WBC (Bld) 83 % High 36 - 65 % [place] Segs Absolute 11.83 High [place] WBC (Bld) [#/Vol] 0.0 10*3/uL 0.0 per 10 0 WBC [place] WBC (Bld) [#/Vol] 14.3 10*3/uL [place] WBC Morphology NOT REPORTED [place] ABDOMEN PELVIS W IV CONTR Lynn 06-06-2019 INR Coag (Bld) [Relative time] Addendum by Hitesh Becker MD on 06/06/2019 8:35 PM ADDENDUM: Possible mild pericholecystic fluid and punctate gallstone. Possible mild inflammatory changes. Recommend gallbladder ultrasound to exclude cholelithiasis or cholecystitis. [place], [place] EXAMINATION: CT OF THE ABDOMEN AND PELVIS WITH CONTRAST 06/06/2019 7:44 pm TECHNIQUE: CT of the abdomen and pelvis was performed with the administration of intravenous contrast. Multiplanar reformatted images are provided for review. Dose modulation, iterative reconstruction, and/or weight based adjustment of the mA/kV was utilized to reduce the radiation dose to as low as reasonably achievable. COMPARISON: April 25, 2013 CT abdomen and pelvis HISTORY: ORDERING SYSTEM PROVIDED HISTORY: abdominal pain TECHNOLOGIST PROVIDED HISTORY: Give IV and PO contrast abdominal pain Possible pancreatitis FINDINGS: Lower Chest: Clear Organs: Fat containing umbilical hernia. The liver, spleen, pancreas, and adrenals appear normal. Gallbladder normal. Punctate nonobstructing nephrolith on the left. Right kidney normal. The bladder appears normal. GI/Bowel: The stomach,small bowel, and colon appear normal. Appendix is surgically absent. Oral contrast is noted in the proximal small bowel. Pelvis: Normal Peritoneum/Retroperit oneum: The abdominal aorta and iliac arteries are normal in caliber. There is no pathologic adenopathy. Bones/Soft Tissues: Posterior interbody fusion rods and a disc spacer L4-5. [place] Nonobstructing nephrolith on the left otherwise no acute disease [place], [place] Jasen, M[facility]pn Incoming Radiant Results From [facility] - 06/06/2019 8:01 PM EDT EXAMINATION: CT OF THE ABDOMEN AND PELVIS WITH CONTRAST 06/06/2019 7:44 pm TECHNIQUE: CT of the abdomen and pelvis was performed with the administration of intravenous contrast. Multiplanar reformatted images are provided for review. Dose modulation, iterative reconstruction, and/or weight based adjustment of the mA/kV was utilized to reduce the radiation dose to as low as reasonably achievable. COMPARISON: April 25, 2013 CT abdomen and pelvis HISTORY: ORDERING SYSTEM PROVIDED HISTORY: abdominal pain TECHNOLOGIST PROVIDED HISTORY: Give IV and PO contrast abdominal pain Possible pancreatitis FINDINGS: Lower Chest: Clear Organs: Fat containing umbilical hernia. The liver, spleen, pancreas, and adrenals appear normal. Gallbladder normal. Punctate nonobstructing nephrolith on the left. Right kidney normal. The bladder appears normal. GI/Bowel: The stomach,small bowel, and colon appear normal. Appendix is surgically absent. Oral contrast is noted in the proximal small bowel. Pelvis: Normal Peritoneum/Retroperit oneum: The abdominal aorta and iliac arteries are normal in caliber. There is no pathologic adenopathy. Bones/Soft Tissues: Posterior interbody fusion rods and a disc spacer L4-5. IMPRESSION: Nonobstructing nephrolith on the left otherwise no acute disease [place] Comprehensive metabolic pane karla 06-06-2019 Albumin [Mass/Vol] 4.9 g/dL 3.5 - 5.2 g/dL [place] Albumin/Globulin [Mass ratio] 1.4 {ratio} [place] ALP [Catalytic activity/Vol] 88 U/L 40 - 129 U/L [place] ALT [Catalytic activity/Vol] 268 U/L High 5 - 41 U/L [place] Anion gap [Moles/Vol] 11 mmol/L 9 - 17 mmol/L [place] AST [Catalytic activity/Vol] 241 U/L High <40 [place] Bilirubin Ql (U) 2.32 mg/dL High 0.3 - 1.2 mg/dL [place] Bun/Cre Ratio 15 [place] Calcium [Mass/Vol] 10.4 mg/dL 8.6 - 10. 4 mg/dL [place] Chloride [Moles/Vol] 96 mmol/L Low 98 - 10 7 mmol/L [place] CO2 [Moles/Vol] 29 mmol/L 20 - 31 mmol/L [place] Creatinine [Mass/Vol] 0.62 mg/dL Low 0.7 - 1.2 mg/dL [place] GFR >60 >60 mL/min [place] GFR Non- >60 >60 mL/min [place] Glucose [Mass/Vol] 165 mg/dL High 70 - 99 mg/dL [place], [place] Interpretation and review of laboratory results Abnormal [place] Potassium [Moles/Vol] 4.0 mmol/L 3.7 - 5.3 mmol/L [place] Protein [Mass/Vol] 8.3 g/dL 6.4 - 8.3 g/dL [place] Sodium [Moles/Vol] 136 mmol/L 135 - 144 mmol/L [place] Urea nitrogen [Mass/Vol] 9 mg/dL 6 - 20 mg/dL [place] Lactic acid, plasmaon 2018 Lactate [Moles/Vol] 0.6 mmol/L 0.5 - 2. 2 mmol/L [place] Lactic Acid, Whole Blood NOT REPORTED 0.7 - 2.1 mmol/L [place] Lipaseon 06-06-2019 Lipase [Catalytic activity/Vol] 14 U/L 13 - 60 U/L [place] Metabolic Panelon 06-06-2019 GFR/1.73 sq M predicted among non-blacks MDRD (S/P/Bld) [Vol rate/Area] [place], [place] Comment on above: Stage 1: Some kidney damage normal GFR Stage 2: Mild kidney damage GFR 60-89 Stage 3: Moderate kidney damage GFR 30-59 Stage 4: Severe kidney damage GFR 15-29 Stage 5: Severe kidney damage GFR <15 ESRD - chronic treatment by dialysis or transplant Average GFR for 30-3 9 years old: 107 mL/min/1.73sq m Chronic Kidney Disease: <60 mL/min/1.73sq m Kidney failure: <15 mL/min/1.73sq m eGFR calculated using average adult body mass. Additional eGFR calculator available at: http://www.License [employer]quisitions/multiple_crcl_2012.htm Protime-INRon 06-06-2019 INR Coag (PPP) [Relative time] 1.0 {INR} [facility], [place] PT Coag (PPP) [Time] 10.1 [place] Urinalysis with microscopico n 06-06-2019 Amorphous, UA 3+ Abnormal None [place] Bacteria, UA NOT REPORTED None [place] Bilirubin Urine SMALL Abnormal NEGATIVE [place] Casts UA NOT REPORTED /LPF [place] Color, UA YELLOW YELLOW [place] Crystals UA NOT REPORTED None /HPF [place] Epithelial Cells UA 0 TO 2 [place] Glucose, Ur Negative NEGATIVE [place] Interpretation and review of laboratory results Abnormal [place] Ketones Ql (U) Negative NEGATIVE [place] Leukocyte esterase Test strip Ql (U) Negative NEGATIVE [place] Mucus, UA NOT REPORTED None [place] Nitrite, Urine Negative NEGATIVE [place] Other Observations UA NOT REPORTED NOT REQ. [place] pH, UA 8.5 [place] Protein (U) [Mass/Vol] Negative NEGATIVE [place] RBC (U) [#/Vol] None [place] Renal Epithelial, Urine NOT REPORTED 0 /HPF [place] Specific [place], UA 1.015 [place] Trichomonas, UA NOT REPORTED None [facility] Turbidity UA CLEAR CLEAR [place] Urinalysis Comments NOT REPORTED [facility] [place] Urine Hgb Negative NEGATIVE [facility] [place] Urobilinogen, Urine Normal Normal [facility] WBC, UA None [facility] [place] Yeast, UA NOT REPORTED None [facility] - [facility] Vital Signs Date Time Vital Sign Value Performing Clinician Faci lity 06-09-2021 06:18-0400 SaO2% (BldA) [Mass fraction] 97 % Micheal Kwok MD Work Phone: [employer] Work Phone: 06-09-2021 05:45-0400 Diastolic blood pressure 94 mm[Hg] Micheal Kwok MD Work Phone: [employer] Work Phone: 06-09-2021 05:45-0400 Systolic blood pressure 179 mm[Hg] Micheal Kwok MD Work Phone: [employer] Work Phone: 06-09-2021 05:24-0400 Respiratory rate 20 /min Micheal Kwok MD Work Phone: [employer] Work Phone: 06-09-2021 04:52-0400 Body mass index (BMI) [Ratio] 37.31 kg/m2 Micheal Kwok MD Work Phone: [employer] Work Phone: 06-09-2021 04:52-0400 Body temperature 97 [degF] Micheal Kwok MD Work Phone: [employer] Work Phone: 06-09-2021 04:52-0400 Body weight 117.94 kg Micheal Kwok MD Work Phone: [employer] Work Phone: 06-09-2021 04:52-0400 Heart rate 97 /min Micheal Kwok MD Work Phone: [employer] Work Phone: 06-07-2021 17:08-0400 Diastolic blood pressure 116 mm[Hg] Linette Tapia DO Work Phone: [employer] Work Phone: 06-07-2021 17:08-0400 Systolic blood pressure 181 mm[Hg] Linette Tapia DO Work Phone: [employer] Work Phone: 06-07-2021 17:03-0400 Body temperature 98.2 [degF] Linette Tapia DO Work Phone: [employer] Work Phone: 06-07-2021 17:03-0400 Heart rate 118 /min Linette Tapia DO Work Phone: [employer] Work Phone: 06-07-2021 17:03-0400 Respiratory rate 22 /min Linette Tapia [employer] Work Phone: [employer] Work Phone: 06-07-2021 17:03-0400 SaO2% (BldA) [Mass fraction] 97 % Linette Tapia [employer] Work Phone: [employer] Phone: 06-13-2019 12:56-0500 Body Temperature 98.1 [degF] [place] 06-13-2019 12:56-0500 BP Diastolic 82 mm[Hg] Humberto [employer] [place] , [place] 06-13-2019 12:56-0500 BP Systolic 151 mm[Hg] Humberto [employer] [place] , [place] 06-13-2019 12:56-0500 Pulse (Heart Rate) 62 /min Humberto [employer] [place], [place] 06-13-2019 12:56-0500 Pulse Oximetry 97 % Humberto [employer] [place] , [place] 06-13-2019 12:56-0500 Respiratory Rate 16 /min Humberto [employer] [place], [place] 06-13-2019 05:21-0500 BMI (Body Mass Index) 28.15 kg/m2 Humberto [facility], [place] 06-13-2019 05:21-0500 Body weight 89 kg [facility] [place] 06-13-2019 01:30-0500 Height 177.8 cm Humberto Downs [facility] , [place] 06-07-2019 22:16-0400 BP Diastolic 99 mm[Hg] Rodrick [facility] , [place] 06-07-2019 22:16-0400 BP Systolic 172 mm[Hg] Rodrick [facility] , [place] 06-07-2019 22:16-0400 Pulse Oximetry 96 % Rodrick [facility] , [place] 06-07-2019 20:11-0400 Pulse (Heart Rate) 78 /min Rodrick [facility], [place] 06-07-2019 20:05-0400 Respiratory Rate 18 /min Rodrick [facility], [place] 06-07-2019 18:00-0400 Body Temperature 97.59 [degF] Rodrick [facility], [place] 06-07-2019 12:46-0400 Body Temperature 98.8 [degF] Kailash Rogers [facility], [place] 06-07-2019 12:46-0400 BP Diastolic 84 mm[Hg] [facility] [place] 06-07-2019 12:46-0400 BP Systolic 137 mm[Hg] [facility] [place] 06-07-2019 12:46-0400 Pulse (Heart Rate) 64 /min Kailash Montanez [facility], [place] 06-07-2019 12:46-0400 Pulse Oximetry 94 % Kailash Rogers [facility], [place] 06-07-2019 12:46-0400 Respiratory Rate 18 /min [facility] [place] 06-07-2019 08:33-0400 Height 177.8 cm Kailash Rogers [facility], [place] 06-07-2019 02:59-0400 BMI (Body Mass Index) 29.27 kg/m2 [facility] 06-07-2019 02:59-0400 Body weight 92.53 [facility] En[facility] Encounter Date Encounter Type Care Provider Facility Start: 06-09-2021 End: 06-09-2021 Emergency department patient visit MICHEAL REINALDODebbie [facility] Start: 06-09-2021 End: 06-09-2021 Emergency department patient visit Micheal Kwok MD Work Phone: [facility] ED Comment on above: Cough (Primary Dx); Shortness of breath; Essential hypertension Start: 06-07-2021 End: 06-07-2021 Emergency department patient visit LINETTE Abdi TAPIA [facility] Start: 06-07-2021 End: 06-07-2021 [facility] Comment on above: Acute upper respirat ory infection (Primary Dx) Start: 02-11-2021 End: 02-11-[address] TAMIKO CHRISTIANSEN Facility: Start: 06-08-2019 End: 06-13-2019 Evaluation and management of inpatient [facility] Start: 06-07-2019 End: 06-13-2019 [facility] Work Phone[facility] Comment on above: Surgery, elective (P rimary Dx) Start: 06-07-2019 End: 06-07-2019 Emergency department patient visit Rodrick [facility] ED Comment on above: Choledocholithiasis (Primary Dx) Start: 06-06-2019 End: 06-07-2019 Evaluation and management of inpatient [facility]ail[facility] Comment on above: Cholecystitis (Prima ry Dx); Elevated LFTs Procedures Date Procedure Procedure Detail Performing Clinician Start: 06-09-2021 COVID-19, RAPID Micheal Kwok MD Work Phone: Start: 06-09-2021 Radiologic exam ches t single view Micheal Kwok MD Work Phone: Start: 06-09-2021 BASIC METABOLIC PANE L W/ REFLEX TO MG FOR LOW K Micheal Kwok MD Work Phone: Start: 06-09-2021 Fibrin dgradj produc ts d-dimer quantitative Micheal Kwok MD Work Phone: Start: 06-09-2021 Ecg routine ecg w/le ast 12 lds w/i&r Micheal Kwok MD Work Phone: Start: 06-07-2021 Radiologic exam ches t single view Linette Tapia DO Work Phone: Start: 06-07-2021 COVID-19, RAPID Urszuladebbie Tapia DO Work Phone: Start: 06-13-2019 DISCHARGE PATIENT ARMAAN LEVI Start: 06-13-2019 INCENTIVE SPIROMETRY RT ARMAAN LEVI Start: 06-13-2019 INCENTIVE SPIROMETRY RT ARMAAN LEVI Start: 06-13-2019 PULSE OXIMETRY, CONTINUOUS ARMAAN AMITA Start: 06-13-2019 INCENTIVE SPIROMETRY RT ARMAAN AMITA Start: 06-13-2019 INCENTIVE SPIROMETRY RT ARMAAN AMITA Start: 06-13-2019 INITIATE OXYGEN THER APY PROTOCOL ARMAAN AMITA Start: 06-13-2019 PULSE OXIMETRY, CONTINUOUS ARMAAN AMITA Start: 06-13-2019 [facility] Start: 06-13-2019 Assay of amylase ARMAAN AMITA Start: 06-13-2019 Assay of lip[facility] Start: 06-13-2019 Assay of magnesium KATI AMITA Start: 06-13-2019 Blood count complete auto&auto difrntl wbc ARMAAN AMITA Start: 06-13-2019 Comprehensive metabo lic panel ARMAAN AMITA Start: 06-13-2019 INCENTIVE SPIROMETRY RT ARMAAN AMITA Start: 06-13-2019 Assay of amylase Abhishek Vanessa Work Phone: Start: 06-13-2019 Assay of lipase [facility] Work Phone: Start: 06-13-2019 Assay of magnesium Robe [facility] Work Phone: Start: 06-13-2019 Blood count complete auto&auto difrntl wbc Abhishek Vanessa Work Phone: Start: 06-13-2019 Comprehensive metabo lic panel Abhishek Vanessa Work Phone: Start: 06-13-2019 PULSE OXIMETRY, CONTINUOUS ARMAAN AMITA Start: 06-13-2019 DAILY WEIGHTS ARMAAN MARTIN Start: 06-13-2019 INTAKE AND OUTPUT ARMAAN AMITA Start: 06-13-2019 PULSE OXIMETRY, CONTINUOUS ARMAAN AMITA Start: 06-13-2019 INCENTIVE SPIROMETRY RT ARMAAN AMITA Start: 06-12-2019 PULSE OXIMETRY, CONTINUOUS ARMAAN AMITA Start: 06-12-2019 ENCOURAGE DEEP BREAT VERONICA AND COUGHING ARMAAN MULLINSON Start: 06-12-2019 INCENTIVE SPIROMETRY RT ARMAAN AMITA Start: 06-12-2019 INITIATE OXYGEN THER APY PROTOCOL ARMAAN AMITA Start: 06-12-2019 PULSE OXIMETRY SPOT CHECK ARMAAN LEVI Start: 06-12-2019 WOUND CARE ARMAAN LANDAVERDEON Start: 06-12-2019 AMBULATE PATIENT ARMAAN MULLINSON Start: 06-12-2019 INTAKE AND OUTPUT ARMAAN AMITA Start: 06-12-2019 NOTIFY PHYSICIAN (SPECIFY) ARMAAN LEVI Start: 06-12-2019 VITAL SIGNS ARMAAN THOMPSON HESON Start: 06-12-2019 TRANSFER PATIENT ARMAAN LEVI Start: 06-12-2019 Level iv surg pathol ogy gross&microscopic exam ARMAAN MULLINSON Start: 06-12-2019 PULSE OXIMETRY, CONTINUOUS ARMAAN AMITA Start: 06-12-2019 End: 06-12-2019 Laparoscopy surg cholecystectomy Abhishek Vanessa Work Phone: Start: 06-12-2019 PULSE OXIMETRY, CONTINUOUS ARMAAN AMITA Start: 06-12-2019 Level iv surg pathol ogy gross&microscopic exam ARMAAN LEVI Start: 06-12-2019 INITIATE OXYGEN THER APY PROTOCOL ARMAAN MULLINSON Start: 06-12-2019 PULSE OXIMETRY, CONTINUOUS ARMAAN AMITA Start: 06-12-2019 Assay of magnesium KATI LEVI Start: 06-12-2019 Basic metabolic pane l calcium total ARMAAN LEVI Start: 06-12-2019 Blood count complete auto&auto difrntl wbc ARMAAN MULLINSON Start: 06-12-2019 PULSE OXIMETRY, CONTINUOUS ARMAAN AMITA Start: 06-12-2019 Assay of magnesium Kala Pettitibel Work Phone: Start: 06-12-2019 Basic metabolic pane l calcium total Maciel Bleibel Work Phone: Start: 06-12-2019 Blood count complete auto&auto difrntl wbc Maciel Pettitibel Work Phone: Start: 06-12-2019 INTAKE AND OUTPUT ARMAAN MULLINSON Start: 06-12-2019 PULSE OXIMETRY, CONTINUOUS ARMAAN AMITA Start: 06-11-2019 PULSE OXIMETRY, CONTINUOUS ARMAAN MULLINSON Start: 06-11-2019 Cmbn ndsc cathj biliary&pncrtc ductal sys rs&i ARMAAN MULLINSON Start: 06-11-2019 FLUORO FOR SURGICAL PROCEDURES ARMAAN LEVI Start: 06-11-2019 TRANSFER PATIENT ARMAAN LEVI Start: 06-11-2019 PULSE OXIMETRY, CONTINUOUS ARMAAN AMITA Start: 06-11-2019 Cmbn ndsc cathj biliary&pncrtc ductal sys rs&i Richardsapamela Bleibel Work Phone: Start: 06-11-2019 FLUORO FOR SURGICAL PROCEDURES Maciel Bleibel Work Phone: Start: 06-11-2019 End: 06-11-2019 Ercp dx collection specimen brushing/washing Maciel Pettitibel Work Phone: Start: 06-11-2019 PULSE OXIMETRY, CONTINUOUS ARMAAN AMITA Start: 06-11-2019 INITIATE OXYGEN THER APY PROTOCOL ARMAAN LEVI Start: 06-11-2019 PULSE OXIMETRY, CONTINUOUS ARMAAN AMITA Start: 06-11-2019 Assay of amylase ARMAAN LEVI Start: 06-11-2019 Assay of lipase ARMAAN LANGEON Start: 06-11-2019 Assay of magnesium KATI MULLINSON Start: 06-11-2019 Basic metabolic pane l calcium total ARMAAN MULLINSON Start: 06-11-2019 Blood count complete auto&auto difrntl wbc ARMAAN LEVI Start: 06-11-2019 Lipid panel ARMAAN HUTC HESON Start: 06-11-2019 PULSE OXIMETRY, CONTINUOUS ARMAAN AMITA Start: 06-11-2019 Assay of amylase Kameron Ennis Work Phone: Start: 06-11-2019 Assay of lipase Kameron S Retholtz Work Phone: Start: 06-11-2019 Assay of magnesium Kameron S Retholedilma Work Phone: Start: 06-11-2019 Basic metabolic pane l calcium total Kameron S Retholedilma Work Phone: Start: 06-11-2019 Blood count complete auto&auto difrntl wbc Kameron Ennis Work Phone: Start: 06-11-2019 Lipid panel Kameron Mosqueda Ret julienne Work Phone: Start: 06-11-2019 ENDO PROCEDURE ARMAAN TCHESON Start: 06-11-2019 INTAKE AND OUTPUT ARMAAN AMITA Start: 06-11-2019 PULSE OXIMETRY, CONTINUOUS ARMAAN AMITA Start: 06-10-2019 PULSE OXIMETRY, CONTINUOUS ARMAAN AMITA Start: 06-10-2019 PULSE OXIMETRY, CONTINUOUS ARMAAN AMITA Start: 06-10-2019 IP CONSULT TO GENERA L SURGERY ARMAAN AMITA Start: 06-10-2019 PULSE OXIMETRY, CONTINUOUS ARMAAN AMITA Start: 06-10-2019 INITIATE OXYGEN THER APY PROTOCOL ARMAAN AMITA Start: 06-10-2019 PULSE OXIMETRY, CONTINUOUS ARMAAN AMITA Start: 06-10-2019 Assay of amylase ARMAAN AMITA Start: 06-10-2019 Assay of lipase ARMAAN H UTCHESON Start: 06-10-2019 Blood count complete auto&auto difrntl wbc ARMAAN AMITA Start: 06-10-2019 Comprehensive metabo lic panel ARMAAN AMITA Start: 06-10-2019 PULSE OXIMETRY, CONTINUOUS ARMAAN AMITA Start: 06-10-2019 Assay of amylase Heather Hernández Work Phone: Start: 06-10-2019 Assay of lipase Heather gonzales Work Phone: Start: 06-10-2019 Blood count complete auto&auto difrntl wbc Heather Hernández Work Phone: Start: 06-10-2019 Comprehensive metabo lic panel Heather Hernández Work Phone: Start: 06-10-2019 INTAKE AND OUTPUT ARMAAN AMITA Start: 06-10-2019 PULSE OXIMETRY, CONTINUOUS ARMAAN AMITA Start: 06-09-2019 PULSE OXIMETRY, CONTINUOUS ARMAAN AMITA Start: 06-09-2019 PULSE OXIMETRY, CONTINUOUS ARMAAN AMITA Start: 06-09-2019 PULSE OXIMETRY, CONTINUOUS ARMAAN AMITA Start: 06-09-2019 INITIATE OXYGEN THER APY PROTOCOL ARMAAN AMITA Start: 06-09-2019 PULSE OXIMETRY, CONTINUOUS ARMAAN AMITA Start: 06-09-2019 Assay of amylase ARMAAN AMITA Start: 06-09-2019 Assay of lipase ARMAAN H UTCHESON Start: 06-09-2019 Assay of magnesium KATI Y AMITA Start: 06-09-2019 Assay of phosphorus inorganic ARMAAN AMITA Start: 06-09-2019 Assay of triglycerides ARMAAN AMITA Start: 06-09-2019 Blood count complete auto&auto difrntl wbc ARMAAN AMITA Start: 06-09-2019 Blood count complete automated ARMAAN AMITA Start: 06-09-2019 Calcium ionized ARMAAN H UTCHESON Start: 06-09-2019 Prothrombin time ARMAAN AMITA Start: 06-09-2019 PULSE OXIMETRY, CONTINUOUS ARMAAN AMITA Start: 06-09-2019 Assay of amylase Joyce Rubi Work Phone: Start: 06-09-2019 Assay of lipase Joyce Ramosee Work Phone: Start: 06-09-2019 Assay of magnesium Angelo fernando Ramosee Work Phone: Start: 06-09-2019 Assay of phosphorus inorganic Joyce Ramosee Work Phone: Start: 06-09-2019 Assay of triglycerides Joyce Ramosee Work Phone: Start: 06-09-2019 Blood count complete auto&auto difrntl wbc Joyce Rubi Work Phone: Start: 06-09-2019 Blood count complete automated Joyce Rubi Work Phone: Start: 06-09-2019 Calcium ionized Joyce Rubi Work Phone: Start: 06-09-2019 Prothrombin time Joyce Rubi Work Phone: Start: 06-09-2019 INTAKE AND OUTPUT ARMAAN AMITA Start: 06-09-2019 PULSE OXIMETRY, CONTINUOUS ARMAAN AMITA Start: 06-08-2019 PULSE OXIMETRY, CONTINUOUS ARMAAN AMITA Start: 06-08-2019 PULSE OXIMETRY, CONTINUOUS ARMAAN AMITA Start: 06-08-2019 Acute hepatitis panel H WOJCIECH AMITA Start: 06-08-2019 PULSE OXIMETRY, CONTINUOUS ARMAAN AMITA Start: 06-08-2019 Acute hepatitis panel V rayray Potts Work Phone: Start: 06-08-2019 INITIATE OXYGEN THER APY PROTOCOL ARMAAN AMITA Start: 06-08-2019 PULSE OXIMETRY, CONTINUOUS ARMAAN AMITA Start: 06-08-2019 PULSE OXIMETRY, CONTINUOUS ARMAAN AMITA Start: 06-08-2019 CONTACT ISOLATION ARMAAN LEVI Start: 06-08-2019 PLACE INTERMITTENT P NEUMATIC COMPRESSION DEVICE ARMAAN LEVI Start: 06-08-2019 PT EVAL AND TREAT ARMAAN LEVI Start: 06-08-2019 PULSE OXIMETRY SPOT CHECK ARMAAN LEVI Start: 06-08-2019 PULSE OXIMETRY, CONTINUOUS ARMAAN AMITA Start: 06-08-2019 TOBACCO CESSATION EDUCATION ARMAAN LEVI Start: 06-08-2019 VITAL SIGNS ARMAAN LANDAVERDEON Start: 06-08-2019 DAILY WEIGHTS ARMAAN MATRIN Start: 06-08-2019 FULL CODE ARMAAN THOMPSON HESON Start: 06-08-2019 INITIATE OXYGEN THER APY PROTOCOL ARMAAN AMITA Start: 06-08-2019 INTAKE AND OUTPUT ARMAAN AMITA Start: 06-08-2019 IP CONSULT TO GI ARMAAN LEVI Start: 06-08-2019 NOTIFY PHYSICIAN (SPECIFY) ARMAAN LEVI Start: 06-08-2019 OT EVAL AND TREAT ARMAAN LEVI Start: 06-08-2019 PULSE OXIMETRY SPOT CHECK Joyce Rubi Work Phone: Start: 06-07-2019 PATIENT STATUS (DIRECT) ARMAAN LEVI Start: 06-07-2019 Assay of lactate Armaan Levi Work Phone: Start: 06-07-2019 Assay of lipase Armaan dwyer Work Phone: Start: 06-07-2019 Blood count complete automated Armaan Levi Work Phone: Start: 06-07-2019 Comprehensive metabo lic panel Armaan Levi Work Phone: Start: 06-07-2019 Us abdominal real ti me w/image limited Margarito P John Work Phone: Start: 06-07-2019 Blood count complete auto&auto difrntl wbc Margarito P Lionelivinen Work Phone: Start: 06-07-2019 Blood count complete automated Margarito P Lionelivinen Work Phone: Start: 06-06-2019 PULSE OXIMETRY SPOT CHECK Margarito P Lionelivinen Work Phone: Start: 06-06-2019 Assay of lactate Robi Lopez Work Phone: Start: 06-06-2019 End: 06-06-2019 Culture bacterial blood aerobic w/id isolates Robi A John Work Phone: Start: 06-06-2019 Ecg routine ecg w/le ast 12 lds w/i&r Robi A John Work Phone: Start: 06-06-2019 EKG REPORT Hpf Scanni ng Start: 06-06-2019 Ct abdomen & pelvis w/contrast material Kailash Rogers Start: 06-06-2019 Assay of lipase Kailash Rogers Start: 06-06-2019 Blood count complete auto&auto difrntl wbc Kailash Rogers Start: 06-06-2019 Comprehensive metabo lic panel Kailash Rogers Start: 06-06-2019 Prothrombin time Robi A John Work Phone: Start: 06-06-2019 Thromboplastin time partial plasma/whole blood Robi Lopez Work Phone: Start: 06-06-2019 Urnls dip stick/tabl et reagent auto microscopy Kaliash Rogers Plan of Treatment Date Care Activity Detail Author Start: 09-06-2026 DTaP/Tdap/Td vaccine (2 - Td or Tdap) DTaP/Tdap/Td vaccine (2 - Td or Tdap) [facility] [employer] Phone: Start: 09-06-2026 DTaP/Tdap/Td vaccine (2 - Td) DTaP/Tdap/Td vaccine (2 - Td) [place], [place] Start: 06-11-2024 Lipid panel Lipid screen [facility] [employer] Phone: Start: 06-09-2022 Creatinine measurement Creatinine mo [facility] [employer] Phone: Start: 06-09-2022 Potassium monitoring Potassium monit [facility] [employer] Phone: Start: 04-07-2021 Influenza vaccination Flu vaccine (# 1) [facility] [employer] Phone: Start: 06-13-2020 Potassium monitoring Potassium monit [facility] [employer] Phone: Start: 06-12-2020 Creatinine measurement Creatinine mo [facility] [employer] Phone: Start: 06-11-2020 Creatinine monitoring Creatinine [place], [place] Start: 06-11-2020 Potassium monitoring Potassium monit [place], [place] Start: 06-07-2020 Creatinine monitoring Creatinine mon [place], [place] Start: 06-07-2020 Potassium monitoring Potassium monit [place] Start: 06-06-2020 Creatinine monitoring Creatinine [place], [place] Start: 06-06-2020 Potassium monitoring Potassium monit [place] Start: 04-07-2019 Influenza vaccination Flu vaccine (# 1) [place], [place] Start: 1996 [facility] [place] [place] Start: 1996 HIV screening HIV screen Lisseth Montalvo [facility] Work Phone: Start: 1994 Varicella Vaccine (1 of 2 - 13+ 2-dose series) Varicella Vaccine (1 of 2 - 13+ 2-dose series) [place], [place] Start: 1993 COVID-19 Vaccine (1) COVID-19 Vaccin e (1) [facility] Work Phone: Start: 1987 Pneumococcal 0-64 ye ars Vaccine (1 of 1 - PPSV23) Pneumococcal 0-64 years Vaccine (1 of 1 - PPSV23) [place], [place] Start: 1987 Pneumococcal 0-64 ye ars Vaccine (1 of 2 - PPSV23) Pneumococcal 0-64 years Vaccine (1 of 2 - PPSV23) [facility] [employer] Phone: Start: 1982 Varicella vaccine (1 of 2 - 2-dose childhood series) Varicella vaccine (1 of 2 - 2-dose childhood series) [facility] [employer] Phone: Culture Blood #1 [place], [place] EKG 12 Lead EKG 12 Lead ECG STAT 06/09/2021 5:11 AM EDT [facility] [employer] Phone: End: 06-06-2019 Hepatitis Panel, Acute Hepatitis Panel, Acute Lab Add-On One Time for 1 Occurrences starting 06/06/2019 until 06/06/2019 [place], [place] Comment on above: One Time for 1 Occur rences starting 06/06/2019 until 06/06/2019 Hepatitis Panel, Acute Hepatitis Panel, Acute Lab Add-On 06/06/2019 6:50 PM EDT [place] Incentive spirometry Incentive s pirometry Respiratory Care Routine Every 2hr while awake until discontinued starting 06/12/2019 [place] Comment on above: Every 2hr while awak e until discontinued starting 06/12/2019 Initiate Oxygen Ther apy Protocol [place], [place] Comment on above: Daily until disconti nued starting 06/06/2019 Daily until disconti nued starting 06/08/2019 Daily until disconti nued starting 06/12/2019 End: 06-12-2019 Pulse Oximetry Spot Check Pulse Oximetry Spot Check Respiratory Care Routine One Time for 1 Occurrences starting 06/12/2019 until 06/12/2019 [place] Comment on above: One Time for 1 Occur rences starting 06/12/2019 until 06/12/2019 Pulse oximetry, continuous Pulse oximetry, continuous Respiratory Care Routine Every 4hr until discontinued starting 06/08/2019 [place] Comment on above: Every 4hr until disc ontinued starting 06/08/2019 Surgical Pathology Surgical Path ology Lab Routine ONE TIME for 1 Occurrences starting 06/12/2019 [place] Comment on above: ONE TIME for 1 Occur rences starting 06/12/2019 End: 06-13-2019 Surgical Pathology Surgical Pathology Lab Routine Once for 1 Occurrences starting 06/13/2019 until 06/13/2019 [place] Comment on above: Once for 1 Occurrenc es starting 06/13/2019 until 06/13/2019 Immunizations Immunization Date Immunization Notes Care Provider Fa boris 09-06-2016 tetanus toxoid, redu sera diphtheria toxoid, and acellular pertussis vaccine, adsorbed Kailash Rogers [place], [place] Payers Date Payer Category Payer Private Health Insurance [id number] 2018 Unknown [employer] [address] xxxxxxxxxxxx 2018-Present [phone] [address] [place] [address] xxxxxxxxxxxx [id number] 2018 Unknown [id number] 1980 Unknown [id number] 1980 Unknown [id number] 1980 Unknown [id number] 1980 Unknown [id number] Self-pay Social History Date Type Detail Facility Start: 06-06-2019 End: 06-09-2021 Tobacco smoking status NHIS Current every day smoker [place], [place] History of tobacco use Cigarette Smoker [place] Start: 06-06-2019 End: 06-09-2021 Cigarettes smoked current (pack per day) - Reported [place], [place] Start: 06-06-2019 End: 06-13-2019 Alcohol intake Yes [place] Start: 04-25-2013 Alcohol Comment very rarely [place], [place] Start: 1980 Sex Assigned At Not on file [place], [place] Start: 07-01-2019 End: 06-09-2021 Tobacco use and exposure Never used [facility] [employer] Start: 07-01-2019 End: 06-09-2021 Alcohol intake Current drinker of alcohol (finding) [employer] Phone: Exposure to SARS-CoV -2 (event) Not sure [facility] [employer] Medical Equipment Procedure Code Equipment Code Equipment Origin al Text Equipment Identifier Dates Clip Lg 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 But take cough medicine as prescribed return to ER for any worsening shortness of breath or difficulty breathing. Follow-up with your primary care doctor in 2 to 3 days. The following attachments cannot be sent through Care Everywhere.URI (Upper Respiratory Infection) (Swazi)documented in this encounter [employer] Phone: Evaluation note Note Date & Type Note Facility Evaluation note Diagnosis Acute upper respiratory infection- Primary Acute upper respiratory infections of unspecified site documented in this encounter [employer] Phone: Evaluation note Note Date & Type Note Facility Evaluation note Diagnosis Cough- Primary Shortness of breath Essential hypertension Unspecified essential hypertension documented in this encounter [employer] Phone: Hospital Discharge instructions InstructionsAttachments Note Date & Type Note Facility Hospital Discharge instructions Micheal Kwok MD - 06/09/2021 Please continue with your inhalers as advised and prescribed May continue with the Tessalon Perles also as previously prescribed Please have your blood pressure rechecked by your physician at your next office visit The following attachments cannot be sent through Care Everywhere.SOB (Shortness of Breath) (Swazi)Cough (Swazi)Hypertension: General Info (Swazi)documented in this encounter [employer] Phone: Discharge Instructions * Discharge Instr - Activity* Maria Antonia Galvez RN - 06/07/2019 2:37 PM EDT As tolerated * Discharge Instr - Diet* Maria Antonia Galvez RN - 06/07/2019 2:35 PM EDT ? Good nutrition is important when healing from an illness, injury, or surgery. Follow any nutrition recommendations given to you during your hospital stay. ? If you were given an oral nutrition supplement while in the hospital, continue to take this supplement at home. You can take it with meals, in-between meals, and/or before bedtime. These supplements can be purchased at most local grocery stores, pharmacies, and [employer]stores. ? If you have any questions about your diet or nutrition, call the hospital and ask for the dietitian. No Fat, Increase fluid intake * Additional Instructions* Maria Antonia Galvez RN - 06/06/2019 Please take all medications as prescribed. Please follow up with your primary care physician by calling today, or as soon as possible, for thefirst available appointment. If you do not have a primary care physician, please contact a physician or clinic listed below today to establish care. Please return to the emergency department IMMEDIATELY if you develop uncontrolled fevers, uncontrolled vomiting, change in symptoms, worsening of symptoms, or ANY other concerns. Take Motrin for pain as needed * Attachments The following attachments cannot be sent through Care Everywhere. * Dyspepsia (Swazi) * ERCP (Endoscopic Retrograde Cholangiopancreatogram ): Pre-op (Swazi) documented in this encounter* Attachments The following attachments cannot be sent through Care Everywhere. * Cholecystectomy: Post-op (Swazi) * Hypertension (Swazi) * Post-op Infection (Swazi) documented in this encounter History of Present Illness * Maria Antonia Galvez RN - 06/07/2019 3:00 PM EDT [employer] Program Coordinator reviewed discharge instructions with patient and girlfriend. Both verbalized understanding. Denies questions. Copy of discharge instructions given to patient. * Miah Ordoñez MSW, LSW - 06/07/2019 10:44 AM EDT Social Work intial Assessment/Discharge Plan Diagnosis: Cholecystitis, acute with cholelithiasis Met with: Patient, Mother and other family & friends. PCP: Rodrick Galdamez DO Payment Source: Medical [employer] Advance Directives: None Code Status: Full Mental Status: Alert and oriented Living Arrangement: Home with domestic partner Support Systems: Excellent Patient able to perform ADL's: Independant Current Services: None Current DME Equipment: N/A Able to get medication fill & pharmacy: Is able to obtain and pay for his medications locally. Transportation provider: [employer] List of SNF/HH were provided: N/A Any concerns or Barriers to discharge: None Anticipated Needs/Discharge Plan: No needs. Will return home in [place]. * Amina Borjas RD, LD - 06/07/2019 10:23 AM EDT Nutrition Assessment Type and Reason for Visit: Initial(Nutrition Screen) Nutrition Recommendations: 1. NPO as ordered 2. Suggest initiate oral diet as pt is appropriate - fat restricted intake. 3. Diet instruction to be given regarding high triglycerides, and more appropriate fats. Pt should be low fat at this time. 4. Diet instruction for well balanced meals will be given before discharge. Nutrition Assessment: Altered GI function related to acute injury/trauma as evidenced by abdominal pain, poor dietary choices, elevated blood sugars, gallstones. Pt reports feeling nauseous and vomiting yesterday. His states a normal diet for pt is fried foods, pashto fries, cheeseburgers, hotdogs. Pt states he eats a lot of fatty foods, and everything that is not good. Pt eats a few eggs, and states depending on what she adds (canola oil, milk) pt reports a stomach ache. This has been ongoing for a few months. Pt states has prefers lactose-free milk. Pt states he has been trying to decrease fat intake. Pt also reports a weight loss over past two years, not confirmed by EHR. A more recent weight gain of 17# (9%) wt gain noted. Blood sugar was elevated at admission, and has improved. Total cholesterol and triglycerides are both elevated, with low HDL. This correlates to increased carbohydrate intake/ likely excessive saturated fats. Note elevated hepatic enzymes, and pt states he does not drink alcohol. Pt states is currently hungry, however, does not know if he would be able to tolerate po food intake. Pt states he believes is stress related. He states his last bowel movement was yesterday, small/hard. Regularity for pt is once weekly. Pt is currently at moderate nutrition risk and does not meet the criteria for malnutrition per ASPEN/ AND guidelines. Malnutrition Assessment: Malnutrition Status: No malnutrition Context: Acute illness or injury Findings of the 6 clinical characteristics of malnutrition (Minimum of 2 out of 6 clinical characteristics is required to make the diagnosis of moderate or severe Protein Calorie Malnutrition based on AND/ASPEN Guidelines): 1. Energy Intake-Greater than 75% of estimated energy requirement, Unable to assess 2. Weight Loss-No significant weight loss, unable to assess 3. Fat Loss-No significant subcutaneous fat loss, 4. Muscle Loss-No significant muscle mass loss, 5. Fluid Accumulation-No significant fluid accumulation, Extremities 6. Service Or Work Dispatcher Chief Strength-Not measured Recent Labs 06/06/19 1850 06/07/19 0545 NA 136 134* K 4.0 4.3 CL 96* 99 CO2 29 22 BUN 9 9 CREATININE 0.62* 0.61* GLUCOSE 165* 88 ALT 268* 289* ALKPHOS 88 90 GFR Lab Results Component Value Date LABALBU 3.9 06/07/2019 Nutrition Risk Level: Moderate Nutrient Needs: Estimated Daily Total Kcal: 9021-1715 Estimated Daily Protein (g): 90-105 Estimated Daily Total Fluid (ml/day): 3074-1363(25-30) Nutrition Diagnosis: Problem: Altered GI function Etiology: related to Acute injury/trauma ? Signs and symptoms: as evidenced by (abdominal pain, poor dietary choices per pt, blood sugars ) Objective Information: Nutrition-Focused Physical Findings: Active bowel sounds Wound Type: None Current Nutrition Therapies: Oral Diet Orders: NPO Oral Diet intake: Unable to assess Oral Nutrition Supplement (ONS) Orders: None ONS intake: 0% Anthropometric Measures: Ht: 5' 10 (177.8 cm) Current Body Wt: 203 lb 14.8 oz (92.5 kg) Admission Body Wt: 180 lb (81.6 kg) Usual Body Wt: 187 lb 2.7 oz (84.9 kg)(09/21/18) % Weight Change: , 7.8% weight gain x 9 months [place] Body Wt: 166 lb (75.3 kg), % [place] Body 122% BMI Classification: BMI 25.0 - 29.9 Overweight Nutrition Interventions: Continue NPO, Start oral diet Continued Inpatient Monitoring, Education Needed, Education not appropriate at this time, Coordination of Care Nutrition Evaluation: Evaluation: Goals set Goals: PO > 75% with good GI tolerance Monitoring: Nutrition Progression, Meal Intake, Diet Tolerance, Pertinent Labs, Constipation Contact Number: [phone] documented in this encounter* Tosha Venegas RN - 06/13/2019 3:34 PM EST Patient discharged ambulatory to private vehicle with documented belongings. Discharge paperwork given and discussed, questions answered to the best of writers knowledge. * Kameron Ennis DO - 06/13/2019 2:14 PM EST [facility] - Progress Note 06/13/2019 2:14 PM Name: Devon Mathew : 1980 Age: 39 y.o. male Acct: [id number] Room: [address] [place] [address] Day: 6 Hospital: [facility] Admit Date: 06/07/2019 11:54 PM PCP: Rodrick Galdamez DO Subjective: C/C: Upper right quadrant abdominal pain Interval History: Status: Improved. POD #1 laparoscopic cholecystectomy. Status post ERCP 2 days ago. The results are reported below. Sphincterotomy and balloon sweep of sludge was performed. Patient's amylase and lipase are improved. Patient was released from [facility] 06/06/2019 after hospitalization for upper right abdominal discomfort. He was diagnosed with acute cholecystitis/cholelithiasis. Initial plan was for MRCP followed by laparoscopic cholecystectomy however secondary to hardware in his back from previous surgery (2011) he was discharged to have outpatient ERCP performed. Hepresented to the ED with recurrent symptomatology of upper right quadrant pain and was transferred here for GI consultation and ERCP. Laboratory reveals gallstone pancreatitis which appears to be improving. Patient has been cleared by surgery for discharge. He will follow-up in 1 week with surgery.Released to work will be by Dr. Vanessa. History: From my partners note Devon Mathew is a39 y.o. male who presents to the emergency department with complaints of upperabdominal discomfort which is been ongoing but worsening this afternoon when he got home. Patient reports he was discharged from the hospital 2 hours ago and went home and ate toast as he was instructed he could eat. States that it made the pain much worse so he called 911 and came back to the ER. He denies any chest pain or shortness of breath denies any fever or chills. Reports he is scheduled to have an outpatient procedure on Monday if he did not develop any worsening pain over the weekend. He has no other complaints this time denies chest pain or shortness breath. Due to worsening of pain he was admitted in ER over there, was treated with Zosyn and pain control,his work-up showed WBC is 15.4, ALT 261, AST 123, total bilirubin 5.24 and lipase greater than 3000 He was supposed to get MRCP but that could not be done due to metal in the body after back surgery and because of that he has been transferred here to be seen by GI and get ERCP He is a smoker and is requesting for nicotine patch ROS: Constitutional: Negative for chills, diaphoresis, fever, malaise/fatigue and weight loss. HENT: Negative for ear pain, hearing loss, nosebleeds, sore throat and tinnitus. Eyes: Negative for blurred vision, double vision, photophobia and pain. Respiratory: Negative for cough, hemoptysis, sputum production, shortness of breath and wheezing. Cardiovascular: Negative for palpitations, orthopnea, claudication, leg swelling and PND. Gastrointestinal: Negative for blood in stool, constipation, diarrhea, heartburn, melena, nausea and vomiting. Positive for abdominal pain. Genitourinary: Negative for dysuria, flank pain, frequency, hematuria and urgency. Musculoskeletal: Negative for back pain, falls, joint pain, myalgias and neck pain. Skin: Negative for itching and rash. Neurological: Negative for dizziness, tingling, tremors, sensory change, focal weakness, seizures, weakness and headaches. Endo/Heme/Allergies: Does not bruise/bleed easily. Psychiatric/Behavioral: Negative for depression. The patient is not nervous/anxious. Medications: Allergies: No Known Allergies Current Meds: sodium chloride flush 10 mL Intravenous 2 times per day enoxaparin 40 mg Subcutaneous Daily indomethacin 100 mg Rectal Once metoprolol tartrate 50 mg Oral BID amLODIPine 10 mg Oral Daily metoprolol 5 mg Intravenous Q6H famotidine (PEPCID) injection 20 mg Intravenous BID piperacillin-tazobactam 3.375 g Intravenous Q8H influenza virus vaccine 0.5 mL Intramuscular Once nicotine 1 patch Transdermal Daily PRN Meds: sodium chloride flush 10 mL Intravenous PRN morphine 2 mg Intravenous Q2H PRN Or morphine 4 mg Intravenous Q2H PRN oxyCODONE 5 mg Oral Q4H PRN Or oxyCODONE 10 mg Oral Q4H PRN ALPRAZolam 0.25 mg Oral Nightly PRN acetaminophen 650 mg Oral Q4H PRN magnesium sulfate 1 g Intravenous PRN potassium chloride 10 mEq Intravenous PRN ondansetron 4 mg Oral Q6H PRN Or ondansetron 4 mg Intravenous Q6H PRN Data: Code Status: Full Code ERCP 06/11/2019 PROCEDURES PERFORMED: 1. Transoral Endoscopic retrograde cholangiopancreatography (ERCP). 2. Cholangiogram 3. Biliary sphincterotomy 4. Balloon sweeps with extraction of sludge 5. Fluoroscopy POSTPROCEDURE DIAGNOSIS: CBD sludge Gallbladder stones Fl Ercp Biliary And Pancreatic S&i Result Date: 06/11/2019 Intraoperative fluoroscopy for ERCP Us Gallbladder Ruq Result Date: 06/07/2019 Cholelithiasis. Abnormal findings of the gallbladder, suspicious for acute cholecystitis. Ct Abdomen Pelvis W Iv Contrast Addendum Date: 06/06/2019 ADDENDUM: Possible mild pericholecystic fluid and punctate gallstone. Possible mild inflammatory changes. Recommend gallbladder ultrasound to exclude cholelithiasis or cholecystitis. Result Date: 06/06/2019 Nonobstructing nephrolith on the left otherwise no acute disease Labs: Hematology: Recent Labs 06/11/1944006/12/1944606/13/19630 WBC 9.6 10.5 15.9* RBC 4.20* 4.37 4.75 HGB 12.8* 13.2 14.7 HCT 36.3* 36.8* 40.6* MCV 86.4 84.2 85.5 MCH 30.5 30.2 30.9 MCHC 35.3* 35.9* 36.2* RDW 12.1 11.9 12.2 PLT 215 256 299 MPV 10.6 10.9 10.7 SEGS 62 81* 77* LYMPHOPCT 24 14* 16* MONOPCT 8 5 7 EOSRELPCT 4 0* 0* BASOPCT 1 0 0 Chemistry: Recent Labs 06/11/1944006/12/1944606/13/19630 NA 140 136 138 K 3.8 4.1 3.9 CL 104 101 100 CO2 24 24 26 GLUCOSE 92 164* 119* BUN 5* 9 8 CREATININE 0.46* 0.44* 0.56* MG 1.9 1.9 1.9 ANIONGAP 12 11 12 LABGLOM >60 >60 >60 GFRAA >60 >60 >60 CALCIUM 8.8 9.0 9.3 Recent Labs 06/11/1944006/13/19 06 PROT -- 7.1 LABALBU -- 4.3 AST -- 91* ALT -- 187* ALKPHOS -- 91 BILITOT -- 0.74 BILIDIR -- 0.28 AMYLASE 88 58 LIPASE 108* 59 CHOL 125 -- HDL 20* -- LDLCHOLESTEROL 82 -- CHOLHDLRATIO 6.3* -- TRIG 117 -- VLDL NOT REPORTED -- Glucose:No results for input(s): LABA1C, POCGLU, LABINSU in the last 72 hours. Physical Examination: BP (!) 151/82 Pulse 62 Temp 98.1 F (36.7 C) (Oral) Resp 16 Ht 5' 10 (1.778 m) Wt 196 lb 3.2 oz (89 kg) SpO2 97% BMI 28.15 kg/m Intake/Output Summary (Last 24 hours) at 06/13/2019 1414 Last data filed at 06/13/2019 0613 Gross per 24 hour Intake 2179 ml Output 1785 ml Net 394 ml General Appearance: Alert, cooperative, no distress, appears stated age Head: Normocephalic, without obvious abnormality, atraumatic Eyes: PERRL, conjunctiva/corneas clear, EOM's intact Ears: Normal external ear canals, both ears Nose: Nares normal, septum midline, mucosa normal, no drainage or sinus tenderness Throat: Lips, mucosa, and tongue normal; teeth and gums normal Neck: Supple, symmetrical, trachea midline, no adenopathy; thyroid: No enlargement/tenderness/nodules; no carotid bruit or JVD Back: Symmetric, no curvature, ROM normal, no CVA tenderness Lungs: Clear to auscultation bilaterally, respirations unlabored Chest wall: No tenderness or deformity Heart: Regular rate and rhythm, S1 and S2 normal, no murmur, rub or gallop Abdomen: Soft, bowel sounds active all four quadrants, no masses, no organomegaly mild upper right quadrant tenderness Extremities: Extremities normal, atraumatic, no cyanosis or edema Pulses: 2+ and symmetric all extremities Skin: Skin color, texture, turgor normal, no rashes or lesions multiple skin tattoos Lymph nodes: Cervical, supraclavicular, and axillary nodes normal Neurologic: CNII-XII intact. Normal strength, sensation and reflexes throughout Assessment: Hospital Problems Last Modified POA * (Principal) Gallstone pancreatitis 06/11/2019 Yes Smoking 06/08/2019 Yes Essential hypertension 06/08/2019 Yes Choledocholithiasis 06/08/2019 Yes Abdominal pain 06/11/2019 Yes Extensive tattoos 06/08/2019 Yes Past Medical History: Diagnosis Date Cyst same area, recurring Essential hypertension 05/25/2015 H/O cardiovascular stress test 12/22/2017 Largerly normal myocardial perfusion imaging with soft tissue artifact, but without evidence of signifcant myocardial ischemia or infarction. The pt Wright tradmill score is 9 H/O echocardiogram 12/22/2017 No previous studies were available for comparsion. Normal 2D echo with doppler imaging. Hypertension Nicotine abuse Obesity 02/09/2015 Obesity, Class II, BMI 35-39.9, with comorbidity BLANCA (obstructive sleep apnea) 02/09/2015 Pain management Smoking 02/09/2015 Consultations: IP CONSULT TO GI IP CONSULT TO GENERAL SURGERY Plan: 1. POD #1 laparoscopic cholecystectomy 2. Discharged home today 3. Follow-up in 1 week with surgery 4. Resume home medications 5. Return to work per surgery 6. Time spent with patient evaluation, discharge planning and filling out FMLA papers greater than 40 minutes. * Abhishek Vanessa MD - 06/13/2019 4:07 AM EST General Surgery Progress Note PATIENT NAME: Devon Mathew TODAY'S DATE: 06/13/2019, No chief complaint on file. SUBJECTIVE: Pt seen and examined. Tolerating CLD. Mild RUQ pain but tolerable with PO meds. Denies any f/c, n/v, sob or chest pain. +flatus. Pt eager to leave. R.O.S. No fevers or chills No vision or hearing changes No acute neck or back pain No substernal chest pain or palpitations No acute shortness of breath or productive cough + abdominal pain appropriate for s/p surgery, no nausea or vomiting No dysuria or hematuria No calf tenderness or swelling OBJECTIVE: Vitals: BP (!) 158/74 Pulse 62 Temp 97.3 F (36.3 C) (Oral) Resp 18 Ht 5' 10 (1.778 m) Wt196 lb 3.2 oz (89 kg) SpO2 98% BMI 28.15 kg/m INTAKE/OUTPUT: Intake/Output Summary (Last 24 hours) at 06/13/2019 0408 Last data filed at 06/13/2019 0135 Gross per 24 hour Intake 1100 ml Output 1785 ml Net -685 ml General: AOx3, NAD Pupils equally round, no scleral icterus Mucous membranes intact Neck supple, no JVD, no adenopathy Chest nontender, no masses, no deformities or Lungs: Symmetrical chest rise bilaterally, no audible wheezes or rhonchi Heart: S1S2 Abdomen: Soft, ND, TTP appropriate in RUQ given surgery, non peritoneal, no rebound, incisions c/d/i Extremity: moves all extremities x4, No edema Data Review: CBC: Recent Labs 06/10/1943 06/11/1944006/12/19446 WBC 9.1 9.6 10.5 HGB 13.0 12.8* 13.2 PLT 208 215 256 BMP: Recent Labs 06/10/19 0543 06/11/191 06/12/19446 NA 140 140 136 K 3.8 3.8 4.1 CL 104 104 101 CO2 24 24 24 BUN 5* 5* 9 CREATININE 0.46* 0.46* 0.44* GLUCOSE 88 92 164* Hepatic: Recent Labs 06/10/19 0543 AST 30 ALT 100* ALKPHOS 89 BILITOT 0.87 BILIDIR 0.32* Coagulation: Recent Labs 06/10/19 0543 PROT 6.0* ASSESSMENT Patient Active Problem List Diagnosis Acute appendicitis Obesity Smoking Essential hypertension Anxiety state Other chest pain Abdominal pain, epigastric Cholecystitis, acute with cholelithiasis Acute cholecystitis Choledocholithiasis Abdominal pain Extensive tattoos Gallstone pancreatitis 39 y/o male with choledocholithiasis and gallstone pancreatitis - lipase and bilirubin improved S/p ERCP 06/11/19 S/p Lap bailey 06/12/19 PLAN 1. Ok for adv as diet tolerated and transition to PO pain control only, shar for toleration of diet 2. Cont recs and management per consultants, am labs pending 3. Discharge pain scripts in chart, plan to follow up with Dr. Vanessa in one week in clinic Thank you, Attending Physician Statement I have discussed the case, including pertinent history and exam findings with the resident. I agreewith the assessment, plan and orders as documented by the resident. Patient seen and examined. Agree with above. Advance to low fat diet. Home today from surgery standpoint. F/U in 1 week * Anton Hernandez RN - 06/12/2019 7:00 PM EST Pt feels better lying on left side , continues to have pain in the right upper surgical wound * Anton Hernandez RN - 06/12/2019 6:30 PM EST Progressive floor called ., to inform the pts girl friend that he will be in pacu longer for pain control * Sheila Meredith RN - 06/12/2019 4:51 PM EST DERMABOND TO INCISION * Anton Hernandez RN - 06/12/2019 4:30 PM EST C/o sever pain , right upper surgical site, only that site * Kameron Ennis DO - 06/12/2019 11:05 AM EST [facility] - Progress Note 06/12/2019 11:05 AM Name: Devon Mathew : 1980 Age: 39 y.o. male Acct: [id number] Room: [address] [place] [address] Day: 5 Hospital: [facility] Admit Date: 06/07/2019 11:54 PM PCP: Rodrick Galdamez DO Subjective: C/C: Upper right quadrant abdominal pain Interval History: Status: About the same. Surgical note has been reviewed. Status post ERCP yesterday. The results are reported below. Sphincterotomy and balloon sweep of sludge was performed. Patient's amylase and lipase are improved today. He is scheduled for laparoscopic cholecystectomy at 4 PM today. Patient was released from [facility] 06/06/2019 after hospitalization for upper right abdominal discomfort. He was diagnosed with acute cholecystitis/cholelithiasis. Initial plan was for MRCP followed by laparoscopic cholecystectomy however [facility] he was discharged to have outpatient ERCP performed. He presented to the ED with recurrent symptomatology of upper right quadrant pain and was transferred here for GI consultation and ERCP. Laboratory reveals gallstone pancreatitis which appears to be improving. History: From my partners note Devon Mathew is a39 y.o. male who presents to the emergency department with complaints of upperabdominal discomfort which is been ongoing but worsening this afternoon when he got home. Patient reports he was discharged from the hospital 2 hours ago and went home and ate toast as he was instructed he could eat. States that it made the pain much worse so he called 911 and came back to the ER. He denies any chest pain or shortness of breath denies any fever or chills. Reports he is scheduled to have an outpatient procedure on Monday if he did not develop any worsening pain over the weekend. He has no other complaints this time denies chest pain or shortness breath. Due to worsening of pain he was admitted in ER over there, was treated with Zosyn and pain control,his work-up showed WBC is 15.4, ALT 261, AST 123, total bilirubin 5.24 and lipase greater than 3000 He was supposed to get MRCP but that could not be done due to metal in the body after back surgery and because of that he has been transferred here to be seen by GI and get ERCP He is a smoker and is requesting for nicotine patch ROS: Constitutional: Negative for chills, diaphoresis, fever, malaise/fatigue and weight loss. HENT: Negative for ear pain, hearing loss, nosebleeds, sore throat and tinnitus. Eyes: Negative for blurred vision, double vision, photophobia and pain. Respiratory: Negative for cough, hemoptysis, sputum production, shortness of breath and wheezing. Cardiovascular: Negative for palpitations, orthopnea, claudication, leg swelling and PND. Gastrointestinal: Negative for blood in stool, constipation, diarrhea, heartburn, melena, nausea and vomiting. Positive for abdominal pain. Genitourinary: Negative for dysuria, flank pain, frequency, hematuria and urgency. Musculoskeletal: Negative for back pain, falls, joint pain, myalgias and neck pain. Skin: Negative for itching and rash. Neurological: Negative for dizziness, tingling, tremors, sensory change, focal weakness, seizures, weakness and headaches. Endo/Heme/Allergies: Does not bruise/bleed easily. Psychiatric/Behavioral: Negative for depression. The patient is not nervous/anxious. Medications: Allergies: No Known Allergies Current Meds: indomethacin 100 mg Rectal Once metoprolol tartrate 50 mg Oral BID amLODIPine 10 mg Oral Daily metoprolol 5 mg Intravenous Q6H [Held by provider] enoxaparin 40 mg Subcutaneous Daily famotidine (PEPCID) injection 20 mg Intravenous BID sodium chloride flush 10 mL Intravenous 2 times per day piperacillin-tazobactam 3.375 g Intravenous Q8H influenza virus vaccine 0.5 mL Intramuscular Once nicotine 1 patch Transdermal Daily PRN Meds: ALPRAZolam 0.25 mg Oral Nightly PRN acetaminophen 650 mg Oral Q4H PRN HYDROcodone 5 mg - acetaminophen 1 tablet Oral Q4H PRN Or HYDROcodone 5 mg - acetaminophen 2 tablet Oral Q4H PRN HYDROmorphone 0.25 mg Intravenous Q3H PRN Or HYDROmorphone 0.5 mg Intravenous Q3H PRN magnesium sulfate 1 g Intravenous PRN potassium chloride 10 mEq Intravenous PRN sodium chloride flush 10 mL Intravenous PRN ondansetron 4 mg Oral Q6H PRN Or ondansetron 4 mg Intravenous Q6H PRN Data: Code Status: Full Code ERCP 06/11/2019 PROCEDURES PERFORMED: 1. Transoral Endoscopic retrograde cholangiopancreatography (ERCP). 2. Cholangiogram 3. Biliary sphincterotomy 4. Balloon sweeps with extraction of sludge 5. Fluoroscopy POSTPROCEDURE DIAGNOSIS: CBD sludge Gallbladder stones Fl Ercp Biliary And Pancreatic S&i Result Date: 06/11/2019 Intraoperative fluoroscopy for ERCP Us Gallbladder Ruq Result Date: 06/07/2019 Cholelithiasis. Abnormal findings of the gallbladder, suspicious for acute cholecystitis. Ct Abdomen Pelvis W Iv Contrast Addendum Date: 06/06/2019 ADDENDUM: Possible mild pericholecystic fluid and punctate gallstone. Possible mild inflammatory changes. Recommend gallbladder ultrasound to exclude cholelithiasis or cholecystitis. Result Date: 06/06/2019 Nonobstructing nephrolith on the left otherwise no acute disease Labs: Hematology: Recent Labs 06/10/19 0543 06/11/19 0441 11/06/19 0447 WBC 9.1 9.6 10.5 RBC 4.22 4.20* 4.37 HGB 13.0 12.8* 13.2 HCT 37.1* 36.3* 36.8* MCV 87.9 86.4 84.2 MCH 30.8 30.5 30.2 MCHC 35.0* 35.3* 35.9* RDW 12.1 12.1 11.9 PLT 208 215 256 MPV 10.8 10.6 10.9 SEGS 62 62 81* LYMPHOPCT 25 24 14* MONOPCT 8 8 5 EOSRELPCT 3 4 0* BASOPCT 1 1 0 Chemistry: Recent Labs 06/10/19 0543 06/11/1944006/12/19446 NA 140 140 136 K 3.8 3.8 4.1 CL 104 104 101 CO2 24 24 24 GLUCOSE 88 92 164* BUN 5* 5* 9 CREATININE 0.46* 0.46* 0.44* MG -- 1.9 1.9 ANIONGAP 12 12 11 LABGLOM >60 >60 >60 GFRAA >60 >60 >60 CALCIUM 8.5* 8.8 9.0 Recent Labs 06/10/19 0543 06/11/19440 PROT 6.0* -- LABALBU 3.5 -- AST 30 -- ALT 100* -- ALKPHOS 89 -- BILITOT 0.87 -- BILIDIR 0.32* -- AMYLASE 188* 88 LIPASE 198* 108* CHOL -- 125 HDL -- 20* LDLCHOLESTEROL -- 82 CHOLHDLRATIO -- 6.3* TRIG -- 117 VLDL -- NOT REPORTED Glucose:No results for input(s): LABA1C, POCGLU, LABINSU in the last 72 hours. Physical Examination: BP (!) 151/91 Pulse 68 Temp 97.4 F (36.3 C) (Oral) Resp 18 Ht 5' 10 (1.778 m) Comment: 5'10 Wt 198 lb (89.8 kg) SpO2 98% BMI 28.41 kg/m Intake/Output Summary (Last 24 hours) at 06/12/2019 1105 Last data filed at 06/11/2019 1943 Gross per 24 hour Intake 1400 ml Output Net 1400 ml General Appearance: Alert, cooperative, no distress, appears stated age Head: Normocephalic, without obvious abnormality, atraumatic Eyes: PERRL, conjunctiva/corneas clear, EOM's intact Ears: Normal external ear canals, both ears Nose: Nares normal, septum midline, mucosa normal, no drainage or sinus tenderness Throat: Lips, mucosa, and tongue normal; teeth and gums normal Neck: Supple, symmetrical, trachea midline, no adenopathy; thyroid: No enlargement/tenderness/nodules; no carotid bruit or JVD Back: Symmetric, no curvature, ROM normal, no CVA tenderness Lungs: Clear to auscultation bilaterally, respirations unlabored Chest wall: No tenderness or deformity Heart: Regular rate and rhythm, S1 and S2 normal, no murmur, rub or gallop Abdomen: Soft, bowel sounds active all four quadrants, no masses, no organomegaly mild upper right quadrant tenderness Extremities: Extremities normal, atraumatic, no cyanosis or edema Pulses: 2+ and symmetric all extremities Skin: Skin color, texture, turgor normal, no rashes or lesions multiple skin tattoos Lymph nodes: Cervical, supraclavicular, and axillary nodes normal Neurologic: CNII-XII intact. Normal strength, sensation and reflexes throughout Assessment: Hospital Problems Last Modified POA * (Principal) Gallstone pancreatitis 06/11/2019 Yes Smoking 06/08/2019 Yes Essential hypertension 06/08/2019 Yes Choledocholithiasis 06/08/2019 Yes Abdominal pain 06/11/2019 Yes Extensive tattoos 06/08/2019 Yes Past Medical History: Diagnosis Date Cyst same area, recurring Essential hypertension 05/25/2015 H/O cardiovascular stress test 12/22/2017 Largerly normal myocardial perfusion imaging with soft tissue artifact, but without evidence of signifcant myocardial ischemia or infarction. The pt Wright tradmill score is 9 H/O echocardiogram 12/22/2017 No previous studies were available for comparsion. Normal 2D echo with doppler imaging. Hypertension Nicotine abuse Obesity 02/09/2015 Obesity, Class II, BMI 35-39.9, with comorbidity BLANCA (obstructive sleep apnea) 02/09/2015 Pain management Smoking 02/09/2015 Consultations: IP CONSULT TO GI IP CONSULT TO GENERAL SURGERY Plan: 1. ERCP completed yesterday 2. Laparoscopic cholecystectomy 4 PM today 3. Pain control 4. Blood pressure control 5. Resume his prior antihypertensives 6. DVT prophylaxis 7. GI prophylaxis 8. Recheck laboratories in the morning * Abhishek Vanessa MD - 06/12/2019 4:18 AM EST General Surgery Progress Note PATIENT NAME: Devon Mathew TODAY'S DATE: 06/12/2019, No chief complaint on file. SUBJECTIVE: Pt seen and examined. No issues overnight. Denies any f/c, n/v, sob or chest pain. +flatus. S/p ERCP yesterday. No issues this am. Ready for lap bailey. R.O.S. No fevers or chills No vision or hearing changes No acute neck or back pain No substernal chest pain or palpitations No acute shortness of breath or productive cough Decreased abdominal pain, no nausea or vomiting No dysuria or hematuria No calf tenderness or swelling OBJECTIVE: Vitals: BP 125/76 Pulse 63 Temp 97.3 F (36.3 C) (Oral) Resp 12 Ht 5' 10 (1.778 m) Comment:5'10 Wt 204 lb 8.6 oz (92.8 kg) SpO2 98% BMI 29.35 kg/m INTAKE/OUTPUT: Intake/Output Summary (Last 24 hours) at 06/12/2019 0428 Last data filed at 06/11/2019 1943 Gross per 24 hour Intake 2386 ml Output Net 2386 ml General: AOx3, NAD Pupils equally round, no scleral icterus Mucous membranes intact Neck supple, no JVD, no adenopathy Chest nontender, no masses, no deformities or Lungs: Symmetrical chest rise bilaterally, no audible wheezes or rhonchi Heart: S1S2 Abdomen: Soft, ND, minimal epigastric tenderness, non peritoneal, no rebound Extremity: moves all extremities x4, No edema Data Review: CBC: Recent Labs 06/09/1939 06/10/19 0543 06/11/19 0441 WBC 11.5* 9.1 9.6 HGB 13.8 13.0 12.8* PLT 186 208 215 BMP: Recent Labs 06/09/19 0539 06/10/19 0543 06/11/19 0441 NA 136 140 140 K 3.6* 3.8 3.8 CL 101 104 104 CO2 25 24 24 BUN 7 5* 5* CREATININE 0.47* 0.46* 0.46* GLUCOSE 78 88 92 Hepatic: Recent Labs 06/09/19 0539 06/10/19 05 AST 31 30 ALT 119* 100* ALKPHOS 109 89 BILITOT 1.04 0.87 BILIDIR -- 0.32* Coagulation: Recent Labs 06/09/1953806/10/19542 PROT 6.0* 6.0* INR 1.0 -- ASSESSMENT Patient Active Problem List Diagnosis Acute appendicitis Obesity Smoking Essential hypertension Anxiety state Other chest pain Abdominal pain, epigastric Cholecystitis, acute with cholelithiasis Acute cholecystitis Choledocholithiasis Abdominal pain Extensive tattoos Gallstone pancreatitis 39 y/o male with choledocholithiasis and gallstone pancreatitis - lipase and bilirubin improved S/p ERCP 06/11/19 PLAN 1. Plan for lap cholecystectomy, keep NPO, consent obtained and in chart, timing TBD 2. Cont recs and management per consultants 3. Post op orders to follow Thank you, Attending Physician Statement I have discussed the case, including pertinent history and exam findings with the resident. I agreewith the assessment, plan and orders as documented by the resident. Patient seen and examined. Agree with above. N.p.o. for now while we are sorting out the timing of his laparoscopic cholecystectomy. Bree Villagran RN - 06/11/2019 6:25 PM EST Pt returned from surgery, vss, update given to fiance and mother, pt will be NPO after midnight, ptcan have clears around 1999, will continue to monitor Bree Villagran RN - 06/11/2019 3:15 PM EST Pt to surgery per bed for ERCP, mother at side Bree Villagran RN - 06/11/2019 2:[address] Ennis messaged about IV and po md azalia wants us to use IV for when pt is NPO * Kameron Ennis, DO - 06/11/2019 10:13 AM EST [facility] - Progress Note 06/11/2019 10:14 AM Name: Devon Mathew : 1980 Age: 39 y.o. male Acct: [id number] Room: [address] [place] [address] Day: 4 Hospital: [facility] Admit Date: 06/07/2019 11:54 PM PCP: Rodrick Galdamez DO Subjective: C/C: Upper right quadrant abdominal pain Interval History: Status: About the same. Surgical note has been reviewed. The patient will need laparoscopic cholecystectomy. Surgery is discussing with GI timing or need for ERCP. Tentatively is scheduled for 3:30 PM today. Patient was released from [facility] 06/06/2019 after hospitalization for upper right abdominal discomfort. He was diagnosed with acute cholecystitis/cholelithiasis. Initial plan was for MRCP followed by laparoscopic cholecystectomy however secondary to hardware in his back from previous surgery (2011) he was discharged to have outpatient ERCP performed. He presented to the ED with recurrent symptomatology of upper right quadrant pain and was transferred here for GI consultation and ERCP. Laboratory reveals gallstone pancreatitis which appears to be improving. The patient has expressed that he wishes to have his surgery performed here and not back at [facility]. History: From my partners note Devon Mathew is a39 y.o. male who presents to the emergency department with complaints of upperabdominal discomfort which is been ongoing but worsening this afternoon when he got home. Patient reports he was discharged from the hospital 2 hours ago and went home and ate toast as he was instructed he could eat. States that it made the pain much worse so he called 911 and came back to the ER. He denies any chest pain or shortness of breath denies any fever or chills. Reports he is scheduled to have an outpatient procedure on Monday if he did not develop any worsening pain over the weekend. He has no other complaints this time denies chest pain or shortness breath. Due to worsening of pain he was admitted in ER over there, was treated with Zosyn and pain control,his work-up showed WBC is 15.4, ALT 261, AST 123, total bilirubin 5.24 and lipase greater than 3000 He was supposed to get MRCP but that could not be done due to metal in the body after back surgery and because of that he has been transferred here to be seen by GI and get ERCP He is a smoker and is requesting for nicotine patch ROS: Constitutional: Negative for chills, diaphoresis, fever, malaise/fatigue and weight loss. HENT: Negative for ear pain, hearing loss, nosebleeds, sore throat and tinnitus. Eyes: Negative for blurred vision, double vision, photophobia and pain. Respiratory: Negative for cough, hemoptysis, sputum production, shortness of breath and wheezing. Cardiovascular: Negative for palpitations, orthopnea, claudication, leg swelling and PND. Gastrointestinal: Negative for blood in stool, constipation, diarrhea, heartburn, melena, nausea and vomiting. Positive for abdominal pain. Genitourinary: Negative for dysuria, flank pain, frequency, hematuria and urgency. Musculoskeletal: Negative for back pain, falls, joint pain, myalgias and neck pain. Skin: Negative for itching and rash. Neurological: Negative for dizziness, tingling, tremors, sensory change, focal weakness, seizures, weakness and headaches. Endo/Heme/Allergies: Does not bruise/bleed easily. Psychiatric/Behavioral: Negative for depression. The patient is not nervous/anxious. Medications: Allergies: No Known Allergies Current Meds: metoprolol tartrate 50 mg Oral BID amLODIPine 10 mg Oral Daily metoprolol 5 mg Intravenous Q6H [Held by provider] enoxaparin 40 mg Subcutaneous Daily famotidine (PEPCID) injection 20 mg Intravenous BID sodium chloride flush 10 mL Intravenous 2 times per day piperacillin-tazobactam 3.375 g Intravenous Q8H influenza virus vaccine 0.5 mL Intramuscular Once nicotine 1 patch Transdermal Daily PRN Meds: ALPRAZolam 0.25 mg Oral Nightly PRN acetaminophen 650 mg Oral Q4H PRN HYDROcodone 5 mg - acetaminophen 1 tablet Oral Q4H PRN Or HYDROcodone 5 mg - acetaminophen 2 tablet Oral Q4H PRN HYDROmorphone 0.25 mg Intravenous Q3H PRN Or HYDROmorphone 0.5 mg Intravenous Q3H PRN magnesium sulfate 1 g Intravenous PRN potassium chloride 10 mEq Intravenous PRN sodium chloride flush 10 mL Intravenous PRN ondansetron 4 mg Oral Q6H PRN Or ondansetron 4 mg Intravenous Q6H PRN Data: Code Status: Full Code Labs: Hematology: Recent Labs 06/09/1953806/10/1954206/11/19440 WBC 11.5* 9.1 9.6 RBC 4.46 4.22 4.20* HGB 13.8 13.0 12.8* HCT 39.0* 37.1* 36.3* MCV 87.4 87.9 86.4 MCH 30.9 30.8 30.5 MCHC 35.4* 35.0* 35.3* RDW 12.2 12.1 12.1 PLT 186 208 215 MPV 10.7 10.8 10.6 SEGS -- 62 62 LYMPHOPCT -- 25 24 MONOPCT -- 8 8 EOSRELPCT -- 3 4 BASOPCT -- 1 1 PROTIME 10.6 -- -- INR 1.0 -- -- Chemistry: Recent Labs 06/09/1953806/10/1954206/11/19440 NA 136 140 140 K 3.6* 3.8 3.8 CL 101 104 104 CO2 25 24 24 GLUCOSE 78 88 92 BUN 7 5* 5* CREATININE 0.47* 0.46* 0.46* MG 1.8 -- 1.9 ANIONGAP 10 12 12 LABGLOM >60 >60 >60 GFRAA >60 >60 >60 CALCIUM 8.5* 8.5* 8.8 CAION 1.23 -- -- PHOS 2.7 -- -- Recent Labs 06/09/1953806/10/1954206/11/19440 PROT 6.0* 6.0* -- LABALBU 3.6 3.5 -- AST 31 30 -- ALT 119* 100* -- ALKPHOS 109 89 -- BILITOT 1.04 0.87 -- BILIDIR -- 0.32* -- AMYLASE 645* 188* 88 LIPASE 688* 198* 108* CHOL -- -- 125 HDL -- -- 20* LDLCHOLESTEROL -- -- 82 CHOLHDLRATIO -- -- 6.3* TRIG 122 -- 117 VLDL -- -- NOT REPORTED Glucose:No results for input(s): LABA1C, POCGLU, LABINSU in the last 72 hours. Physical Examination: BP (!) 158/92 Pulse 71 Temp 97.9 F (36.6 C) (Oral) Resp 18 Ht 5' 10 (1.778 m) Comment: 5'10 Wt 204 lb 8.6 oz (92.8 kg) SpO2 96% BMI 29.35 kg/m Intake/Output Summary (Last 24 hours) at 06/11/2019 1014 Last data filed at 06/11/2019 0437 Gross per 24 hour Intake 2655 ml Output Net 2655 ml General Appearance: Alert, cooperative, no distress, appears stated age Head: Normocephalic, without obvious abnormality, atraumatic Eyes: PERRL, conjunctiva/corneas clear, EOM's intact Ears: Normal external ear canals, both ears Nose: Nares normal, septum midline, mucosa normal, no drainage or sinus tenderness Throat: Lips, mucosa, and tongue normal; teeth and gums normal Neck: Supple, symmetrical, trachea midline, no adenopathy; thyroid: No enlargement/tenderness/nodules; no carotid bruit or JVD Back: Symmetric, no curvature, ROM normal, no CVA tenderness Lungs: Clear to auscultation bilaterally, respirations unlabored Chest wall: No tenderness or deformity Heart: Regular rate and rhythm, S1 and S2 normal, no murmur, rub or gallop Abdomen: Soft, bowel sounds active all four quadrants, no masses, no organomegaly mild upper right quadrant tenderness Extremities: Extremities normal, atraumatic, no cyanosis or edema Pulses: 2+ and symmetric all extremities Skin: Skin color, texture, turgor normal, no rashes or lesions multiple skin tattoos Lymph nodes: Cervical, supraclavicular, and axillary nodes normal Neurologic: CNII-XII intact. Normal strength, sensation and reflexes throughout Assessment: Hospital Problems Last Modified POA * (Principal) Gallstone pancreatitis 06/11/2019 Yes Smoking 06/08/2019 Yes Essential hypertension 06/08/2019 Yes Choledocholithiasis 06/08/2019 Yes Abdominal pain 06/11/2019 Yes Extensive tattoos 06/08/2019 Yes Past Medical History: Diagnosis Date Cyst same area, recurring Essential hypertension 05/25/2015 H/O cardiovascular stress test 12/22/2017 Largerly normal myocardial perfusion imaging with soft tissue artifact, but without evidence of signifcant myocardial ischemia or infarction. The pt Wright tradmill score is 9 H/O echocardiogram 12/22/2017 No previous studies were available for comparsion. Normal 2D echo with doppler imaging. Hypertension Nicotine abuse Obesity 02/09/2015 Obesity, Class II, BMI 35-39.9, with comorbidity BLANCA (obstructive sleep apnea) 02/09/2015 Pain management Smoking 02/09/2015 Consultations: IP CONSULT TO GI IP CONSULT TO GENERAL SURGERY Plan: 1. ERCP/laparoscopic cholecystectomy 3:30 PM today 2. Pain control 3. Blood pressure control 4. Resume his prior antihypertensives 5. DVT prophylaxis 6. GI prophylaxis 7. Recheck laboratories in the morning * Abhishek Vanessa MD - 06/11/2019 5:03 AM EST General Surgery Progress Note PATIENT NAME: Devon Mathew TODAY'S DATE: 06/11/2019, No chief complaint on file. SUBJECTIVE: Pt seen and examined. No issues overnight. Denies any f/c, n/v, sob or chest pain. +flatus. Finallygot a good night sleep last night per pt. Ready for ERCP today. R.O.S. No fevers or chills No vision or hearing changes No acute neck or back pain No substernal chest pain or palpitations No acute shortness of breath or productive cough Decreased abdominal pain, no nausea or vomiting No dysuria or hematuria No calf tenderness or swelling OBJECTIVE: Vitals: BP 137/83 Pulse 79 Temp 97.5 F (36.4 C) (Oral) Resp 18 Ht 5' 10 (1.778 m) Comment:5'10 Wt 204 lb 8 oz (92.8 kg) SpO2 96% BMI 29.34 kg/m INTAKE/OUTPUT: Intake/Output Summary (Last 24 hours) at 06/11/2019 0535 Last data filed at 06/11/2019 0437 Gross per 24 hour Intake 5630 ml Output Net 5630 ml General: AOx3, NAD Pupils equally round, no scleral icterus Mucous membranes intact Neck supple, no JVD, no adenopathy Chest nontender, no masses, no deformities or Lungs: Symmetrical chest rise bilaterally, no audible wheezes or rhonchi Heart: S1S2 Abdomen: Soft, ND, minimal epigastric tenderness, non peritoneal, no rebound Extremity: moves all extremities x4, No edema Data Review: CBC: Recent Labs 06/09/1953806/10/1954206/11/19440 WBC 11.5* 9.1 9.6 HGB 13.8 13.0 12.8* PLT 186 208 215 BMP: Recent Labs 06/09/1953806/10/1954206/11/19440 NA 136 140 140 K 3.6* 3.8 3.8 CL 101 104 104 CO2 25 24 24 BUN 7 5* 5* CREATININE 0.47* 0.46* 0.46* GLUCOSE 78 88 92 Hepatic: Recent Labs 06/09/1953806/10/19542 AST 31 30 ALT 119* 100* ALKPHOS 109 89 BILITOT 1.04 0.87 BILIDIR -- 0.32* Coagulation: Recent Labs 06/09/1953806/10/19542 PROT 6.0* 6.0* INR 1.0 -- ASSESSMENT Patient Active Problem List Diagnosis Acute appendicitis Obesity Smoking Essential hypertension Anxiety state Other chest pain Abdominal pain, epigastric Cholecystitis, acute with cholelithiasis Acute cholecystitis Choledocholithiasis Abdominal pain Extensive tattoos Gallstone pancreatitis 39 y/o male with choledocholithiasis and gallstone pancreatitis - lipase and bilirubin improving PLAN 1. F/U ERCP results, trend labs 2. Barring results of above will plan for lap cholecystectomy 3. Cont recs and management per consultants Thank you, Attending Physician Statement I have discussed the case, including pertinent history and exam findings with the resident. I agreewith the assessment, plan and orders as documented by the resident. Patient seen and examined. Agree with above. Making plans for laparoscopic cholecystectomy * Jewel Asif RPH - 06/10/2019 3:18 PM EST Transitions of Care Pharmacy Service Medication Review The patient's list of current home medications has been reviewed. Source(s) of information: [employer], patient Based on information provided by the above source(s), I have updated the patient's home med list asdescribed below. Please review the ACTION REQUESTED section of this note below for any discrepancies on current hospital orders. I changed or updated the following medications on the patient's home medication list: Discontinued Ciprofloxacin Famotidine Ondansetron Added Ibuprofen Adjusted Amlodipine 5mg -> 10mg Other Notes PROVIDER ACTION REQUESTED Discrepancies on current hospital orders that need to be addressed by a physician/nurse practitioner: Medication Action Requested Amlodipine Adjust to 10mg daily as appropriate Please feel free to call me with any questions about this encounter. Thank you. Jewel Asif RPH Transitions of Care Pharmacy Service Medications Prior to Admission: ibuprofen (ADVIL;MOTRIN) 200 MG tablet, Take 400 mg by mouth every 6 hours as needed for Pain amLODIPine (NORVASC) 10 MG tablet, Take 10 mg by mouth daily ALPRAZolam (XANAX) 0.25 MG tablet, Take 0.25 mg by mouth nightly as needed for Sleep. metoprolol tartrate (LOPRESSOR) 50 MG tablet, Take 50 mg by mouth 2 times daily * Kameron Ennis DO - 06/10/2019 12:02 PM EST [facility] - Progress Note 06/10/2019 12:02 PM Name: Devon Sanchesulkner : 1980 Age: 39 y.o. male Acct: [id number] Room: [address] [place] [address] Day: 3 Hospital: [facility] Admit Date: 06/07/2019 11:54 PM PCP: Rodrick Galdamez DO Subjective: C/C: Upper right quadrant abdominal pain Interval History: Status: not changed. Patient was released from [facility] 06/06/2019 after hospitalization for upper right abdominal discomfort. He was diagnosed with acute cholecystitis/cholelithiasis. Initial plan was for MRCP followed by laparoscopic cholecystectomy however secondary to hardware in his back from previous surgery (2011) he was discharged to have outpatient ERCP performed. He presented to the ED with recurrent symptomatology of upper right quadrant pain and was transferred here for GI consultation and ERCP which currently is scheduled for tomorrow. Laboratory reveals gallstone pancreatitis which appears to be improving. The patient has expressed that he wishes to have his surgery performed here and not back at [facility]. Surgical consultation has been obtained. Current plan is for ERCP with stone removals followed by laparoscopic cholecystectomy. History: From my partners note Devon Mathew is a39 y.o. male who presents to the emergency department with complaints of upperabdominal discomfort which is been ongoing but worsening this afternoon when he got home. Patient reports he was discharged from the hospital 2 hours ago and went home and ate toast as he was instructed he could eat. States that it made the pain much worse so he called 911 and came back to the ER. He denies any chest pain or shortness of breath denies any fever or chills. Reports he is scheduled to have an outpatient procedure on Monday if he did not develop any worsening pain over the weekend. He has no other complaints this time denies chest pain or shortness breath. Due to worsening of pain he was admitted in ER over there, was treated with Zosyn and pain control,his work-up showed WBC is 15.4, ALT 261, AST 123, total bilirubin 5.24 and lipase greater than 3000 He was supposed to get MRCP but that could not be done due to metal in the body after back surgery and because of that he has been transferred here to be seen by GI and get ERCP He is a smoker and is requesting for nicotine patch ROS: Constitutional: Negative for chills, diaphoresis, fever, malaise/fatigue and weight loss. HENT: Negative for ear pain, hearing loss, nosebleeds, sore throat and tinnitus. Eyes: Negative for blurred vision, double vision, photophobia and pain. Respiratory: Negative for cough, hemoptysis, sputum production, shortness of breath and wheezing. Cardiovascular: Negative for palpitations, orthopnea, claudication, leg swelling and PND. Gastrointestinal: Negative for blood in stool, constipation, diarrhea, heartburn, melena, nausea and vomiting. Positive for abdominal pain. Genitourinary: Negative for dysuria, flank pain, frequency, hematuria and urgency. Musculoskeletal: Negative for back pain, falls, joint pain, myalgias and neck pain. Skin: Negative for itching and rash. Neurological: Negative for dizziness, tingling, tremors, sensory change, focal weakness, seizures, weakness and headaches. Endo/Heme/Allergies: Does not bruise/bleed easily. Psychiatric/Behavioral: Negative for depression. The patient is not nervous/anxious. Medications: Allergies: No Known Allergies Current Meds: metoprolol 5 mg Intravenous Q6H [Held by provider] enoxaparin 40 mg Subcutaneous Daily famotidine (PEPCID) injection 20 mg Intravenous BID sodium chloride flush 10 mL Intravenous 2 times per day piperacillin-tazobactam 3.375 g Intravenous Q8H influenza virus vaccine 0.5 mL Intramuscular Once nicotine 1 patch Transdermal Daily PRN Meds: acetaminophen 650 mg Oral Q4H PRN HYDROcodone 5 mg - acetaminophen 1 tablet Oral Q4H PRN Or HYDROcodone 5 mg - acetaminophen 2 tablet Oral Q4H PRN HYDROmorphone 0.25 mg Intravenous Q3H PRN Or HYDROmorphone 0.5 mg Intravenous Q3H PRN magnesium sulfate 1 g Intravenous PRN potassium chloride 10 mEq Intravenous PRN sodium chloride flush 10 mL Intravenous PRN ondansetron 4 mg Oral Q6H PRN Or ondansetron 4 mg Intravenous Q6H PRN Data: Code Status: Full Code Labs: Hematology: Recent Labs 06/07/19 1750 06/09/19 0539 06/10/19 0543 WBC 15.4* 11.5* 9.1 RBC 5.26 4.46 4.22 HGB 16.0 13.8 13.0 HCT 47.2 39.0* 37.1* MCV 89.7 87.4 87.9 MCH 30.4 30.9 30.8 MCHC 33.9 35.4* 35.0* RDW 12.4 12.2 12.1 PLT 258 186 208 MPV 10.6 10.7 10.8 SEGS -- -- 62 LYMPHOPCT -- -- 25 MONOPCT -- -- 8 EOSRELPCT -- -- 3 BASOPCT -- -- 1 PROTIME -- 10.6 -- INR -- 1.0 -- Chemistry: Recent Labs 06/07/19 1750 06/07/19 1805 06/09/19 0539 06/10/19 0543 NA 136 -- 136 140 K 3.5* -- 3.6* 3.8 CL 98 -- 101 104 CO2 26 -- 25 24 GLUCOSE 89 -- 78 88 BUN 11 -- 7 5* CREATININE 0.57* -- 0.47* 0.46* MG -- -- 1.8 -- ANIONGAP 12 -- 10 12 LABGLOM >60 -- >60 >60 GFRAA >60 -- >60 >60 CALCIUM 9.3 -- 8.5* 8.5* CAION -- -- 1.23 -- PHOS -- -- 2.7 -- LACTA -- 1.1 -- -- Recent Labs 06/07/19 1750 06/09/19 0539 06/10/19 0543 PROT 7.4 6.0* 6.0* LABALBU 4.4 3.6 3.5 AST 123* 31 30 ALT 261* 119* 100* ALKPHOS 120 109 89 BILITOT 5.24* 1.04 0.87 BILIDIR -- -- 0.32* AMYLASE -- 645* 188* LIPASE >3,000* 688* 198* TRIG -- 122 -- Glucose:No results for input(s): LABA1C, POCGLU, LABINSU in the last 72 hours. Physical Examination: BP (!) 158/96 Pulse 94 Temp 97.8 F (36.6 C) Resp 16 Ht 5' 10 (1.778 m) Comment: 5'10 Wt 204 lb 8 oz (92.8 kg) SpO2 94% BMI 29.34 kg/m Intake/Output Summary (Last 24 hours) at 06/10/2019 1202 Last data filed at 06/10/2019 0616 Gross per 24 hour Intake 4673 ml Output 3050 ml Net 1623 ml General Appearance: Alert, cooperative, no distress, appears stated age Head: Normocephalic, without obvious abnormality, atraumatic Eyes: PERRL, conjunctiva/corneas clear, EOM's intact Ears: Normal external ear canals, both ears Nose: Nares normal, septum midline, mucosa normal, no drainage or sinus tenderness Throat: Lips, mucosa, and tongue normal; teeth and gums normal Neck: Supple, symmetrical, trachea midline, no adenopathy; thyroid: No enlargement/tenderness/nodules; no carotid bruit or JVD Back: Symmetric, no curvature, ROM normal, no CVA tenderness Lungs: Clear to auscultation bilaterally, respirations unlabored Chest wall: No tenderness or deformity Heart: Regular rate and rhythm, S1 and S2 normal, no murmur, rub or gallop Abdomen: Soft, bowel sounds active all four quadrants, no masses, no organomegaly mild upper right quadrant tenderness Extremities: Extremities normal, atraumatic, no cyanosis or edema Pulses: 2+ and symmetric all extremities Skin: Skin color, texture, turgor normal, no rashes or lesions multiple skin tattoos Lymph nodes: Cervical, supraclavicular, and axillary nodes normal Neurologic: CNII-XII intact. Normal strength, sensation and reflexes throughout Assessment: Hospital Problems Last Modified POA * (Principal) Abdominal pain 06/08/2019 Yes Smoking 06/08/2019 Yes Essential hypertension 06/08/2019 Yes Choledocholithiasis 06/08/2019 Yes Extensive tattoos 06/08/2019 Yes Gallstone pancreatitis 06/09/2019 Yes Past Medical History: Diagnosis Date Cyst same area, recurring Essential hypertension 05/25/2015 H/O cardiovascular stress test 12/22/2017 Largerly normal myocardial perfusion imaging with soft tissue artifact, but without evidence of signifcant myocardial ischemia or infarction. The pt Wright tradmill score is 9 H/O echocardiogram 12/22/2017 No previous studies were available for comparsion. Normal 2D echo with doppler imaging. Hypertension Nicotine abuse Obesity 02/09/2015 Obesity, Class II, BMI 35-39.9, with comorbidity BLANCA (obstructive sleep apnea) 02/09/2015 Pain management Smoking 02/09/2015 Consultations: IP CONSULT TO GI Plan: 1. ERCP tomorrow 2. Surgical consultation for laparoscopic cholecystectomy 3. Pain control 4. Blood pressure control 5. Resume his prior antihypertensives 6. DVT prophylaxis 7. GI prophylaxis 8. Recheck laboratories in the morning * Paula Potts MD - 06/09/2019 7:36 AM EST [facility] IN-PATIENT SERVICE [facility] Progress Note 06/09/2019 7:37 AM Name: Devon Mathew Acct: [id number] Room: [address] [place] [address] Day: 2 Admit Date: 06/07/2019 11:54 PM PCP: Rodrick Galdamez DO Code Status: Full Code Subjective: C/C: Abdominal pain Interval History Status: Pain is improved with pain medicines and conservative treatment He remains n.p.o. Amylase 645, lipase has improved from greater than 3000 to 688 GI plans to do ERCP possibly tomorrow if pancreatic enzymes improve further Acute hepatitis panel negative Brief History: Devon Mathew is a39 y.o. male who presents to the emergency department with complaints of upper abdominal discomfort which is been ongoing but worsening this afternoon when he got home. Patient reports he was discharged from the hospital 2 hours ago and went home and ate toast as he was instructed he could eat. States that it made the pain much worse so he called 911 and came back to the ER. He denies any chest pain or shortness of breath denies any fever or chills. Reports he is scheduled to have an outpatient procedure on Monday if he did not develop any worsening pain over the weekend.He has no other complaints this time denies chest pain or shortness breath. Due to worsening of pain he was admitted in ER over there, was treated with Zosyn and pain control,his work-up showed WBC is 15.4, ALT 261, AST 123, total bilirubin 5.24 and lipase greater than 3000 He was supposed to get MRCP but that could not be done due to metal in the body after back surgery and because of that he has been transferred here to be seen by GI and get ERCP He is a smoker and is requesting for nicotine patch Review of Systems: Constitutional: negative for chills, fevers, sweats Respiratory: negative for cough, dyspnea on exertion, shortness of breath, wheezing Cardiovascular: negative for chest pain, chest pressure/discomfort, lower extremity edema, palpitations Gastrointestinal: + for upper abdominal pain, denies constipation, diarrhea, nausea, vomiting Neurological: negative for dizziness, headache Medications: Allergies: No Known Allergies Current Meds: Scheduled Meds: enoxaparin 40 mg Subcutaneous Daily famotidine (PEPCID) injection 20 mg Intravenous BID sodium chloride flush 10 mL Intravenous 2 times per day piperacillin-tazobactam 3.375 g Intravenous Q8H influenza virus vaccine 0.5 mL Intramuscular Once nicotine 1 patch Transdermal Daily Continuous Infusions: sodium chloride 250 mL/hr at 06/08/19 2334 PRN Meds: acetaminophen, HYDROcodone 5 mg - acetaminophen OR HYDROcodone 5 mg - acetaminophen, HYDROmorphone OR HYDROmorphone, magnesium sulfate, potassium chloride, sodium chloride flush, ondansetron OR ondansetron Data: Past Medical History: has a past medical history of Cyst, Essential hypertension, H/O cardiovascular stress test, H/O echocardiogram, Hypertension, Nicotine abuse, Obesity, Obesity, Class II, BMI 35-39.9, with comorbidity, BLANCA (obstructive sleep apnea), Pain management, and Smoking. Social History: reports that he has been smoking cigarettes. He has a 17.00 pack-year smoking history. He has never used smokeless tobacco. He reports that he drinks alcohol. He reports that he does not use drugs. Family History: No family history on file. Vitals: BP (!) 158/86 Pulse 107 Temp 97.8 F (36.6 C) (Oral) Resp 17 Ht 5' 10 (1.778 m) Comment: 5'10 Wt 206 lb (93.4 kg) SpO2 97% BMI 29.56 kg/m Temp (24hrs), Av.9 F (36.6 C), Min:97.8 F (36.6 C), Max:98.1 F (36.7 C) No results for input(s): POCGLU in the last 72 hours. I/O (24Hr): Intake/Output Summary (Last 24 hours) at 06/09/2019 0717 Last data filed at 06/09/2019 0251 Gross per 24 hour Intake 2359 ml Output 900 ml Net 1459 ml Labs: Hematology: Recent Labs 06/06/19184906/07/1954406/07/19174906/09/19 0539 WBC 14.3* 10.1 15.4* 11.5* RBC 5.47 4.89 5.26 4.46 HGB 17.0 15.0 16.0 13.8 HCT 48.2 44.2 47.2 39.0* MCV 88.1 90.4 89.7 87.4 MCH 31.1 30.7 30.4 30.9 MCHC 35.3* 33.9 33.9 35.4* RDW 12.0 12.4 12.4 12.2 PLT 268 227 258 186 MPV 10.5 10.4 10.6 10.7 INR 1.0 -- -- 1.0 Chemistry: Recent Labs 06/06/19212406/07/1954406/07/19174906/07/19180406/09/19 0539 NA -- 134* 136 -- 136 K -- 4.3 3.5* -- 3.6* CL -- 99 98 -- 101 CO2 -- 22 26 -- 25 GLUCOSE -- 88 89 -- 78 BUN -- 9 11 -- 7 CREATININE -- 0.61* 0.57* -- 0.47* MG -- -- -- -- 1.8 ANIONGAP -- 13 12 -- 10 LABGLOM -- >60 >60 -- >60 GFRAA -- >60 >60 -- >60 CALCIUM -- 9.3 9.3 -- 8.5* PHOS -- -- -- -- 2.7 LACTACIDWB NOT REPORTED -- -- NOT REPORTED -- Recent Labs 06/06/19184906/07/1945 06/07/19174906/09/19 0539 PROT 8.3 6.7 7.4 6.0* LABALBU 4.9 3.9 4.4 3.6 AST 241* 201* 123* 31 ALT 268* 289* 261* 119* ALKPHOS 88 90 120 109 BILITOT 2.32* 3.38* 5.24* 1.04 AMYLASE -- -- -- 645* LIPASE 14 -- >3,000* 688* TRIG -- -- -- 122 ABG:No results found for: POCPH, PHART, PH, POCPCO2, [id number], PCO2, POCPO2, PO2ART, PO2, POCHCO3, VDR8QZZ, HCO3, NBEA, PBEA, BEART, BE, THGBART, THB, LHN1KWC, XOIL5CGM, R2KWSAXY, O2SAT, FIO2 Lab Results Component Value Date/Time SPECIAL 20ML, R HAND 06/06/2019 09:35 PM Lab Results Component Value Date/Time CULTURE NO GROWTH 2 DAYS 06/06/2019 09:35 PM Radiology: Ct Abdomen Pelvis W Iv Contrast Addendum Date: 06/06/2019 ADDENDUM: Possible mild pericholecystic fluid and punctate gallstone. Possible mild inflammatory changes. Recommend gallbladder ultrasound to exclude cholelithiasis or cholecystitis. Result Date: 06/06/2019 Nonobstructing nephrolith on the left otherwise no acute disease Us Gallbladder Ruq Result Date: 06/07/2019 Cholelithiasis. Abnormal findings of the gallbladder, suspicious for acute cholecystitis. Physical Examination: General appearance: alert, cooperative and no distress Mental Status: oriented to person, place and time and normal affect Lungs: clear to auscultation bilaterally, normal effort Heart: regular rate and rhythm, no murmur Abdomen: soft, mild discomfort in right upper quadrant and epigastrium, nondistended, normal bowel sounds, no masses, hepatomegaly, splenomegaly Extremities: no edema, redness, tenderness in the calves Skin: no gross lesions, rashes, induration, multiple tattoos Assessment: Hospital Problems Last Modified POA * (Principal) Abdominal pain 06/08/2019 Yes Acute biliary pancreatitis without infection or necrosis 06/09/2019 Yes Smoking 06/08/2019 Yes Essential hypertension 06/08/2019 Yes Choledocholithiasis 06/08/2019 Yes Extensive tattoos 06/08/2019 Yes Plan: 1. Keep n.p.o. 2. Continue IV fluids 3. Pain control 4. DVT prophylaxis 5. ERCP possibly tomorrow Paula Potts MD 06/09/2019 7:37 AM * Radha Loaiza OT - 06/08/2019 12:06 PM EDT Occupational Therapy [facility] Occupational Therapy Not Seen Note Patient not available for Occupational Therapy due to: [] Testing: [] Hemodialysis [] Cancelled by RN: []Refusal by Patient: [] Surgery: [] Intubation: [] Pain Medication: [] Sedation: [] Spine Precautions : [] Medical Instability: [x] Other: Pt is independent; D/C OT Radha Loaiza OTR/L documented in this encounter Assessments Diagnosis Choledocholithiasis- Primary Calculus of bile duct without mention of cholecystitis or obstruction Cholecystitis Cholecystitis, unspecified Elevated LFTs Other abnormal blood chemistry Abdominal pain, epigastric Cholecystitis, acute with cholelithiasis Calculus of bile duct with acute cholecystitis without mention of obstruction Acute cholecystitis Diagnosis Choledocholithiasis- Primary Calculus of bile duct without mention of cholecystitis or obstruction Diagnosis Gallstone pancreatitis- Primary Acute pancreatitis Surgery, elective Unspecified elective surgery for purposes other than remedying health states Abdominal pain Abdominal pain, unspecified site Choledocholithiasis Calculus of bile duct without mention of cholecystitis or obstruction Essential hypertension Unspecified essential hypertension Smoking Tobacco use disorder Extensive tattoos Other dyschromia Advance Directives No Advanced Directives Records FoundDocuments on File Type Date Recorded Patient Primary School Principal Expl anation Advance Directives and Living Will Power of Corporate Accounting Manager Latest Code Status on File Code Status Date Activated Date Inactivated Comments Full Code 06/06/2019 11:02 PM Full Code 04/25/2013 9:50 PM 04/26/2013 2:03 PM Full Code 04/25/2013 5:52 PM 04/25/2013 9:50 PM Latest Code Status on File Code Status Date Activated Date Inactivated Comments Full Code 06/06/2019 11:02 PM 06/07/2019 5:24 PM Documents on File Type Date Recorded Patient Primary School Principal Expl anation Advance Directives and Living Will Power of Corporate Accounting Manager Latest Code Status on File Code Status Date Activated Date Inactivated Comments Full Code 06/08/2019 12:09 AM Full Code 06/06/2019 11:02 PM 06/07/2019 5:24 PM Full Code 04/25/2013 9:50 PM 04/26/2013 2:03 PM Full Code 04/25/2013 5:52 PM 04/25/2013 9:50 PM Documents on File Type Date Recorded Patient Primary School Principal Expl anation ACP-Advance Directive ACP-Power of Corporate Accounting Manager Latest Code Status on File Code Status Date Activated Date Inactivated Comments Full Code 06/08/2019 12:09 AM 06/13/2019 5:36 PM Full Code 06/06/2019 11:02 PM 06/07/2019 5:24 PM Summary Purpose Family History No Family History Records FoundNo Family History Records FoundNo Family History Records FoundNo Family History Records Found Hospital Course * Kameron Ennis DO - 06/13/2019 2:41 PM EST [facility] IN-PATIENT SERVICE [facility] Discharge Summary Patient ID: Devon Mathew : 1980 ACCOUNT: [id number] Patient's PCP: Rodrick Galdamez DO Admit Date: 06/07/2019 Discharge Date: 06/13/2019 Length of Stay: 6 Code Status: Full Code Admitting Physician: Kameron Ennis DO Discharge Physician: Kameron Ennis DO Active Discharge Diagnoses: Hospital Problem Lists: Hospital Problems Last Modified POA * (Principal) Gallstone pancreatitis 06/11/2019 Yes Smoking 06/08/2019 Yes Essential hypertension 06/08/2019 Yes Choledocholithiasis 06/08/2019 Yes Abdominal pain 06/11/2019 Yes Extensive tattoos 06/08/2019 Yes Admission Condition: fair Discharged Condition: good Hospital Stay: Hospital Course: C/C: Upper right quadrant abdominal pain Interval History: Status: Improved. POD #1 laparoscopic cholecystectomy. Status post ERCP 2 days ago. The results are reported below. Sphincterotomy and balloon sweep of sludge was performed. Patient's amylase and lipase are improved. Patient was released from [facility] 06/06/2019 after hospitalization for upper right abdominal discomfort. He was diagnosed with acute cholecystitis/cholelithiasis. Initial plan was for MRCP followed by laparoscopic cholecystectomy however secondary to hardware in his back from previous surgery (2011) he was discharged to have outpatient ERCP performed. Hepresented to the ED with recurrent symptomatology of upper right quadrant pain and was transferred here for GI consultation and ERCP. Laboratory reveals gallstone pancreatitis which appears to be improving. Patient has been cleared by surgery for discharge. He will follow-up in 1 week with surgery.Released to work will be by Dr. Vanessa. History: From my partners note Devon Mathew is a39 y.o. male who presents to the emergency department with complaints of upperabdominal discomfort which is been ongoing but worsening this afternoon when he got home. Patient reports he was discharged from the hospital 2 hours ago and went home and ate toast as he was instructed he could eat. States that it made the pain much worse so he called 911 and came back to the ER. He denies any chest pain or shortness of breath denies any fever or chills. Reports he is scheduled to have an outpatient procedure on Monday if he did not develop any worsening pain over the weekend. He has no other complaints this time denies chest pain or shortness breath. Due to worsening of pain he was admitted in ER over there, was treated with Zosyn and pain control,his work-up showed WBC is 15.4, ALT 261, AST 123, total bilirubin 5.24 and lipase greater than 3000 He was supposed to get MRCP but that could not be done due to metal in the body after back surgery and because of that he has been transferred here to be seen by GI and get ERCP He is a smoker and is requesting for nicotine patch Significant therapeutic interventions: ERCP (06/11/2019) Laparoscopic cholecystectomy (06/12/2019) Significant Diagnostic Studies: ERCP 06/11/2019 PROCEDURES PERFORMED: 1. Transoral Endoscopic retrograde cholangiopancreatography (ERCP). 2. Cholangiogram 3. Biliary sphincterotomy 4. Balloon sweeps with extraction of sludge 5. Fluoroscopy POSTPROCEDURE DIAGNOSIS: CBD sludge Gallbladder stones Fl Ercp Biliary And Pancreatic S&i Result Date: 06/11/2019 Intraoperative fluoroscopy for ERCP Us Gallbladder Ruq Result Date: 06/07/2019 Cholelithiasis. Abnormal findings of the gallbladder, suspicious for acute cholecystitis. Ct Abdomen Pelvis W Iv Contrast Addendum Date: 06/06/2019 ADDENDUM: Possible mild pericholecystic fluid and punctate gallstone. Possible mild inflammatory changes. Recommend gallbladder ultrasound to exclude cholelithiasis or cholecystitis. Result Date: 06/06/2019 Nonobstructing nephrolith on the left otherwise no acute disease Labs: Hematology: Recent Labs 06/11/1944006/12/1944606/13/19 0631 WBC 9.6 10.5 15.9* RBC 4.20* 4.37 4.75 HGB 12.8* 13.2 14.7 HCT 36.3* 36.8* 40.6* MCV 86.4 84.2 85.5 MCH 30.5 30.2 30.9 MCHC 35.3* 35.9* 36.2* RDW 12.1 11.9 12.2 PLT 215 256 299 MPV 10.6 10.9 10.7 SEGS 62 81* 77* LYMPHOPCT 24 14* 16* MONOPCT 8 5 7 EOSRELPCT 4 0* 0* BASOPCT 1 0 0 Chemistry: Recent Labs 06/11/1944006/12/1944606/13/19 0631 NA 140 136 138 K 3.8 4.1 3.9 CL 104 101 100 CO2 24 24 26 GLUCOSE 92 164* 119* BUN 5* 9 8 CREATININE 0.46* 0.44* 0.56* MG 1.9 1.9 1.9 ANIONGAP 12 11 12 LABGLOM >60 >60 >60 GFRAA >60 >60 >60 CALCIUM 8.8 9.0 9.3 Recent Labs 06/11/1944006/13/19 0631 PROT -- 7.1 LABALBU -- 4.3 AST -- 91* ALT -- 187* ALKPHOS -- 91 BILITOT -- 0.74 BILIDIR -- 0.28 AMYLASE 88 58 LIPASE 108* 59 CHOL 125 -- HDL 20* -- LDLCHOLESTEROL 82 -- CHOLHDLRATIO 6.3* -- TRIG 117 -- VLDL NOT REPORTED -- Consultations: Consults: Final Specialist Recommendations/Findings: IP CONSULT TO GI IP CONSULT TO GENERAL SURGERY The patient was seen and examined on day of discharge and this discharge summary is in conjunction with any daily progress note from day of discharge. Discharge plan: Disposition: Home Physician Follow Up: Make appointment in 1 to 2 weeks Rodrick Galdamez DO [address] [facility] [id number] Abhishek Vanessa MD [address] [place] [address] In 1 week Requiring Further Evaluation/Follow Up POST HOSPITALIZATION/Incidental Findings: Follow-up with surgery in 1 week Diet: regular diet Activity: As tolerated Instructions to Patient: Take discharge medications as ordered Follow-up with surgery in 1 week Discharge Medications: Medication List START taking these medications cephALEXin 500 MG capsule Commonly known as: KEFLEX Take 1 capsule by mouth 3 times daily for 7 days HYDROcodone-acetaminophen 5-325 MG per tablet Commonly known as: NORCO Take 1 tablet by mouth every 4 hours as needed for Pain for up to 7 days. ondansetron 4 MG tablet Commonly known as: ZOFRAN Take 1 tablet by mouth every 12 hours as needed for Nausea or Vomiting CONTINUE taking these medications ALPRAZolam 0.25 MG tablet Commonly known as: XANAX amLODIPine 10 MG tablet Commonly known as: NORVASC ibuprofen 200 MG tablet Commonly known as: ADVIL;MOTRIN metoprolol tartrate 50 MG tablet Commonly known as: LOPRESSOR STOP taking these medications ciprofloxacin 500 MG tablet Commonly known as: CIPRO famotidine 20 MG tablet Commonly known as: PEPCID ondansetron 4 MG disintegrating tablet Commonly known as: ZOFRAN-ODT Where to Get Your Medications These medications were sent to [facility]/pharmacy #[id number] - [place], [place] - [address] [place] [address] - [phone] - F [phone] [place] [address] cephALEXin 500 MG capsule You can get these medications from any pharmacy Bring a paper prescription for each of these medications HYDROcodone-acetaminophen 5-325 MG per tablet ondansetron 4 MG tablet Time Spent on discharge is 43 mins in patient examination, evaluation, counseling as well as medication reconciliation, prescriptions for required medications, discharge plan and follow up. Electronically signed by Kameron Ennis DO 06/13/2019 2:[address] Rodrick Galdamez DO for the opportunity to be involved in this patient's care. documented in this encounter Additional Source Comments Reason for Visit (unrecogniz ed section and content) Reason Comments Abdominal Pain Epigastric, onset la st PM. Pt describes as pressure Status Reason Specialty Diagnoses / Procedures Referre d By Contact Referred To Contact Diagnoses Acute cholecystitis Margarito Lopez MD [address] [place] [address] [address] [place] [address] [facility] Reason Comments Abdominal Pain upper abd pain. chalrie ent was discharged from hospital around 1500 today. he is scheduled for gallbladder surgery on Monday in [place]. he is having increased pain at this time. Status Reason Specialty Diagnoses / Procedures Referre d By Contact Referred To Contact Diagnoses Abdominal pain abdominal pain Paula Potts MD [address] [place] [address] [facility] Reason Comments Cough cough ongoing for tw o weeks, started to feel sick 06/04 Shortness of Breath Chest Pain Reason Comments Cough x8 days, seen in ER for the same complaint, states it is not getting any better Shortness of Breath states ongoing (unrecognized sect ion and content) No Status Records FoundNo Status Records FoundNo Status Records FoundNo Status Records Found INFORMATION SOURCE (unrecogn ized section and content) DATE CREATED AUTHOR 06/14/2019 [facility] DATE CREATED AUTHOR AUTHOR'S ORGANIZ ATION 02/25/2021 [facility] DATE CREATED AUTHOR AUTHOR'S ORGANIZ ATION 06/10/2021 [facility] DATE CREATED AUTHOR AUTHOR'S ORGANIZ ATION 06/26/2021 Mckenna coats Ordered Prescriptions (unrec ognized section and content) Prescription Sig Dispensed Refills Start Date End Da te benzonatate (TESSALON PERLES) 100 MG capsule Take 1 capsule by mouth 3 times daily as needed for Cough 30 capsule 0 06/07/2021 06/14/2021 Prescription Sig Dispensed Refills Start Date End Da te methylPREDNISolone (MEDROL, ADAIR,) 4 MG tablet Take by mouth. 1 kit 0 06/09/2021 06/15/2021 Scheduled Active and Recently Administ ered Medications (unrecognized section and content) Medication Order 06/05/2021 06/06/2021 06/07/2021 acetaminophen (TYLENOL) tablet 1,000 mg (COMPLETED) 1,000 mg, Oral, ONCE, On Mon06/07/21 at 1800, For 1 dose 1803 (Given - Provid er: Tori Reid RN) benzonatate (TESSALON) capsule 100 mg (COMPLETED) 100 mg, Oral, ONCE, On Mon06/07/21 at 1800, For 1 dose 1803 (Given - Provid er: Tori Reid RN) Scheduled Medication Order 06/07/2021 06/08/2021 06/09/2021 ipratropium-albuterol (DUONEB) nebulizer solution 1 ampule (COMPLETED) 1 ampule, Inhalation, ONCE, On Mon06/09/21 at 0515, For 1 dose 0522 (Given - Provid er: Rosy Cordero RCP) methylPREDNISolone sodium (SOLU-MEDROL) injection 125 mg (COMPLETED) 125 mg, IntraVENous, ONCE, On Mon06/09/21 at 0515, For 1 dose 0518 (Given - Provid er: Stephanie Cordoba RN) FOR RECORDS PERTAINING TO PATIENTS WHO ARE OR HAVE BEEN ENROLLED IN A CHEMICAL DEPENDENCY/SUBSTANCEABUSE PROGRAM, SOME INFORMATION MAY BE OMITTED. This clinical summary was aggregated from multiple sources. Caution should be exercised in using it in the provision of clinical care. This summary normalizes information from multiple sources, and as a consequence, information in this document may materially change the coding, format and clinical context of patient data. In addition, data may be omitted in some cases. CLINICAL DECISIONS SHOULD BE BASED ON THE PRIMARY CLINICAL RECORDS. [facility] [employer] [facility]. provides no warranty or guarantee of the accuracy or completeness of information in this document.
--- NOTE | 2023-09-25 15:40 | XR_ITS ---
The [address] [address] Patient Name: SHIRLEY MATHEW MRN: [id number] date: 1980 Sex: M Assigned Patient Location: ER Current Patient Location: ER Accession/Order Number: [id number] Exam Date: 09/25/2023 16:10 Report Date: 09/25/2023 16:49 At the request of: BRADLEY LUEVANO Procedure: XR lumbar spine 2-3V EXAM: XR lumbar spine 2-3V HISTORY: fall COMPARISON: 02/11/2021. TECHNIQUE: Routine views of the XR lumbar spine 2-3V FINDINGS: 5 [id number] lumbar segments with partial sacralization of L5. L4-L5 posterior spinal fixation and laminectomy. No evidence for hardware complication No acute fracture or dislocation. No suspicious lytic or sclerotic lesion. Mild L3-L4 disc and endplate degeneration. Probable left lower pole nephrolith measuring 4 mm. Right lower quadrant surgical clips. XR/XR lumbar spine 2-3V IMPRESSION: Postoperative and degenerative findings without acute abnormality. Electronically authenticated by: MATT FERMIN Date: 09/25/2023 16:49
--- NOTE | 2023-09-25 15:40 | ED.BACK1 ---
HPI - Back Pain/Injury General Chief Complaint: Back Pain/Injury Stated Complaint: back pain d/t fall 1 week, hx surgery Time Seen by Provider: 09/25/23 15:33 Source: patient Mode of arrival: walk-in Limitations: no limitations History of Present Illness HPI Narrative: 43-year-old male presents for midline lower back pain. He fell a week ago on ice. He went to an urgent care center and they gave him some pain medication. He has not had imaging. No other injury, he did not hit his head. The pain is moderate and worse in certain positions. He had back surgery about 15 years ago and has hardware for disc replacement. Related Data Home Medications Medication Instructions Recorded Confirmed metoprolol tartrate 50 mg tablet 50 mg PO BID 09/03/23 09/25/23 Previous Rx's Medication Instructions Recorded nifedipine 90 mg tablet,extended 90 mg PO DAILY #14 tabs 09/03/23 release cyclobenzaprine 10 mg tablet 10 mg PO TID PRN muscle spasm #20 09/25/23 tabs hydrocodone 5 mg-acetaminophen 325 1 tab PO Q6H PRN pain #20 tabs 09/25/23 mg tablet Allergies Allergy/AdvReac Type Severity Reaction Status Date / Time No Known Drug Allergies Allergy Verified 09/03/23 16:34 Review of Systems ROS Narrative A ten point review of systems is negative except as noted above. PFSH PFS Social History Smoking status: Heavy tobacco smoker Exam Narrative Exam Narrative: Nurses note and vital signs reviewed and patient is not hypoxic. General: The patient appears well and in no apparent distress. Patient is resting comfortably on cart. Skin: Warm, dry, no pallor noted. There is no rash noted. Head: Normocephalic, atraumatic Eye: Normal conjunctiva, no drainage Ears, Nose, Mouth, and Throat: oral mucosa is moist. Nares patent. Cardiovascular: Regular Rate and Rhythm Respiratory: Patient is in no distress, no accessory muscle use, lungs are clear to auscultation, no wheezing, rales or rhonchi Back: Remote midline scar present in the lower back. He has some minimal tenderness in this area. No abrasions. GI: Normal bowel sounds, no tenderness to palpation, no masses appreciated. No rebound, guarding, or rigidity noted. Musculoskeletal: The patient has no evidence of calf tenderness, no pitting edema, symmetrical pulses noted bilaterally Neurological: A&O, normal speech Psychiatric: Cooperative Constitutional Vital Signs, click to edit/add: Last Vital Signs Temp 97.7 F 09/25/23 15:21 Pulse 85 09/25/23 15:21 Resp 20 09/25/23 15:21 BP 217/100 H 09/25/23 15:21 Pulse Ox 96 09/25/23 15:21 O2 Del Method Room Air 09/25/23 15:21 Course Vital Signs Vital signs: Vital Signs Temperature 97.7 F 09/25/23 15:21 Pulse Rate 85 09/25/23 15:21 Respiratory Rate 20 09/25/23 15:21 Blood Pressure 217/100 H 09/25/23 15:21 Pulse Oximetry 96 09/25/23 15:21 Oxygen Delivery Method Room Air 09/25/23 15:21 Temperature 97.7 F 09/25/23 15:21 Pulse Rate 85 09/25/23 15:21 Respiratory Rate 20 09/25/23 15:21 Blood Pressure 217/100 H 09/25/23 15:21 Pulse Oximetry 96 09/25/23 15:21 Oxygen Delivery Method Room Air 09/25/23 15:21 MDM - Back Pain/Injury MDM Narrative Medical decision making narrative: X-ray showed no acute findings and he will be treated symptomatically. Treatment diagnosis and follow-up were discussed with the patient Differential Diagnosis Differential diagnosis: Likely other (Back contusion, fracture, hardware malfunction) Imaging Data Lumbar x-rays: Radiologist's impression: ITS Impressions Lumbar Spine X-Ray 09/25/23 15:40 IMPRESSION: Postoperative and degenerative findings without acute abnormality. Electronically authenticated by: MATT FERMIN Date: 09/25/2023 16:49 Discharge Plan Discharge Chief Complaint: Back Pain/Injury Clinical Impression: Back contusion Patient Disposition: Home, Self-Care Time of Disposition Decision: 17:00 Condition: Good Mode of Transportation: Private Vehicle Prescriptions / Home Meds: New cyclobenzaprine 10 mg tablet 10 mg PO TID PRN (Reason: muscle spasm) Qty: 20 0RF hydrocodone-acetaminophen 5-325 mg tablet 1 tab PO Q6H PRN (Reason: pain) Qty: 20 0RF No Action metoprolol tartrate 50 mg tablet 50 mg PO BID nifedipine 90 mg tablet extended release 90 mg PO DAILY Qty: 14 0RF Instructions: Contusion in Adults (ED) Stand Alone Forms: Portal Instructions Referrals: Physician,Non-Staff, MD [Primary Care Provider] - 1 week
[2023-09-25] MEDS: KETOROLAC TROMETHAMINE 60 MG/2 ML VIAL IM (15:56)
== END 2023-09-25 17:17 | disposition home or self-care (01) ==
PROVIDERS: Emergency Provider Emergency Medicine
DX: S30.0XXA Contusion of lower back and pelvis, initial encounter (principal); W19.XXXA Unspecified fall, initial encounter; Z79.899 Other long term (current) drug therapy; F17.210 Nicotine dependence, cigarettes, uncomplicated
CPT/HCPCS: 72100; 96372; 99284; J1885

== ENCOUNTER 2023-10-09 15:15 | Emergency (ER) | payer OTHER, SELFPAY ==
[2023-10-09] VITALS (19 sets, daily range): BP systolic 169–192; BP diastolic 98–124; PULSE 76–86; RESP 6–22; TEMP 36.7; O2SAT 95–99; BMI 38.6
--- OUTSIDE RECORDS SUMMARY | 2023-10-09 15:35 | XMS_ITS | CCD ---
Author Name Unknown Address [id number] [place] [address] Organization [facility] Care Team Providers Care Fruit Pitter Name Role Phone Rodrick Galdamez Primary Care Provider [phone] ARMAAN LEVI Referring Unavailable RODRICK GALDAMEZ Primary [...] Unavailable Rodrick Galdamez DO Primary Care Provider [phone] LINETTE TAPIA Attending Unavailable RODRICK GALDAMEZ Primary Care Unavailable MICHEAL KWOK Attending Unavailable RODRICK GALDAMEZ Primary Care Unavailable Medications Current Medications Medication Drug Class(es) Dates Sig (Normalized) Sig (Original) acetaminophen 500 mg oral tablet (4 sources) Start: 06-07-2021 acetaminophen (TYLENOL) tablet 1,000 mg Start: 07-01-2019 take 2 tablets by mo [facility] three times daily acetaminophen (TYLENOL) 500 [...] 06-06-2019 take 50 mg by mouth twice cindy y 50 mg, Oral, 2 TIMES DAILY, [...] 05-25-2015 Chronic Other aftercare (1 source) Other alf (current) drug therapy; Translations: [OTH AIX ARCHITECT CURRENT DRUG THERAPY] Onset: 02-15-2021 Episodic Other [...] with dedicated CT if clinically warranted. Normal [facility] XR TIBIA AND FIBULA RIGHTon 06-15-2021 [...] fracture or dislocation. Follow-up as needed. Normal [facility] Basic Metab w/rfx MGon 06-09 (cont.) Normal [facility] Comment on above: Result Comment: Aver age GFR for 40-49 years old: 99 mL/min/1.73sq m Chronic Kidney Disease: <60 mL/min/1.73sq m Kidney failure: <15 mL/min/1.73sq m eGFR calculated using average adult body mass. Additional eGFR calculator available at: http://www.LectureTools.ImThera Medical/multiple_crcl_2012.htm Performed By: #### B EMELY GARDNER DIME, MINDY #### [facility] [address] [place] [address] Service Support Representative: Soraya Simpson MD Anion gap [Moles/Vol] 10 mmol/L Normal 9-17 [facility] Comment on above: Performed By: #### B MPX, TROPI, DIME, CDP #### [facility] [address] [place], [place] [id number] Service Support Representative: Soraya Simpson MD BUN/CRE Ratio 31 High 9-20 [facility] Comment on above: Performed By: #### B MPX, TROPI, DIME, CDP #### [facility] [address] [place], [place] [phone] Service Support Representative: Soraya Simpson MD Calcium [Mass/Vol] 8.8 mg/dL Normal 8.6-10.4 [facility] Comment on above: Performed By: #### B MPX, TROPI, DIME, CDP #### [address] [place], [place] [id number] Service Support Representative: Soraya Simpson MD Chloride [Moles/Vol] 102 mmol/L Normal 98-107 [facility] Comment on above: Performed By: #### B MPX, TROPI, DIME, CDP #### [facility] [address] [place] [address] [place] [place], [place] [phone] Service Support Representative: Soraya Simpson MD CO2 [Moles/Vol] 24 mmol/L Normal 20-31 [facility] Comment on above: Performed By: #### B MPX, TROPI, DIME, CDP #### [facility] [address] [place] [address] [place], [place] [phone] Service Support Representative: Soraya Simpson MD Creatinine [Mass/Vol] 0.52 mg/dL Low 0.70-1.20 [facility] Comment on above: Performed By: #### B MPX, TROPI, DIME, CDP #### [facility] [address] [place] [address] [place], [place] [phone] Service Support Representative: Soraya Simpson MD GFR, Amer >60 Normal >60 [facility] Comment on above: Performed By: #### B MPX, TROPI, DIME, CDP #### [facility] [address] [place], [place] [phone] Service Support Representative: Soraya Simpson MD GFR,non Amer >60 Normal >60 [facility] Comment on above: Performed By: #### B MPX, TROPI, DIME, CDP #### [facility] [address] [place], [place] [phone] Service Support Representative: Soraya Simpson MD Glucose [Mass/Vol] 139 mg/dL High 70-99 [facility] Comment on above: Performed By: #### B MPX, TROPI, DIME, CDP #### [facility] [address] [place], [place] [id number] Service Support Representative: Soraya Simpson MD Potassium [Moles/Vol] 3.9 mmol/L Normal 3.7-5.3 [facility] Comment on above: Performed By: #### B MPX, TROPI, DIME, CDP #### [facility] [address] [place], [place] [phone] Service Support Representative: Soraya Simpson MD Sodium [Moles/Vol] 136 mmol/L Normal 135-144 [facility] Comment on above: Performed By: #### B MPX, TROPI, DIME, CDP #### [facility] [address] [place], [place] [id number] Service Support Representative: Soraya Simpson MD Staging: Normal [facility] Comment on above: Result Comment: Stag e 1: Some kidney damage normal GFR Stage 2: Mild kidney damage GFR 60-89 Stage 3: Moderate kidney damage GFR 30-59 Stage 4: Severe kidney damage GFR 15-29 Stage 5: Severe kidney damage GFR <15 ESRD - chronic treatment by dialysis or transplant Performed By: #### B MPX, TROPI, DIME, CDP #### [facility] [address] [place], [place] [phone] Service Support Representative: Soraya Simpson MD Urea nitrogen [Mass/Vol] 16 mg/dL Normal 6-20 [facility] Comment on above: Performed By: #### B MPRoz, LJ HAN, CDP #### [facility] [address] [place] [address] Service Support Representative: Soraya Simpson MD Basic Metabolic Panel w/ Ref estefania to MGOrdered By: Micheal Kwok on 06-09-2021 Anion gap [Moles/Vol] 10 mmol/L 9 - 17 mmol/L [facility] [employer] Phone: Calcium [Mass/Vol] 8.8 mg/dL 8.6 - 10. 4 mg/dL [facility] Phone: Chloride [Moles/Vol] 102 mmol/L 98 - 10 7 mmol/L [facility] Phone: CO2 [Moles/Vol] 24 mmol/L 20 - 31 mmol/L [facility] Phone: Creatinine [Mass/Vol] 0.52 mg/dL Low 0.70 - 1.20 mg/dL [facility] Phone: GFR >60 >60 mL/min [facility] Phone: GFR Non- >60 >60 mL/min [facility] [employer] Phone: Glucose [Mass/Vol] 139 mg/dL High 70 - 99 mg/dL [facility] [employer] Phone: Interpretation and review of laboratory results Abnormal [facility] [employer] Phone: Potassium [Moles/Vol] 3.9 mmol/L 3.7 - 5.3 mmol/L [facility] Phone: Sodium [Moles/Vol] 136 mmol/L 135 - 144 mmol/L [facility] Phone: Urea nitrogen (BldV) [Mass/Vol] 16 mg/dL 6 - 20 mg/dL [employer] Phone: Urea nitrogen/Creatinine (Bld) [Mass ratio] 31 High [employer] Phone: [employer] Phone: CBC Auto DifferentialOrdered By: Micheal Kwok on 06-09-2021 Absolute Eos # 0.15 [employer] Phone: Absolute Immature Granulocyte 0.00 [employer] Phone: Absolute Lymph # 3.82 High [employer] Phone: Absolute Starr # 0.59 [employer] Phone: Basophils (Bld) [#/Vol] 0.00 10*3/uL [employer] Phone: Basophils/100 WBC (Bld) 0 % 0 - 2 % [facility] Phone: Differential Type NOT REPORTED [employer] Phone: Eosinophils/100 WBC (Bld) 1 % 1 - 4 % [employer] Phone: Hematocrit (Bld) [Volume fraction] 46.1 % 40.7 - 50.3 % [employer] Phone: Hemoglobin.gastrointest inal spec 1 Ql (Stl) 15.5 g/dL 13.0 - 17.0 g/dL [employer] Phone: Immature granulocytes/100 WBC (Bld) 0 % 0 [employer] Phone: Interpretation and review of laboratory results Abnormal [employer] Phone: Lymphocytes/100 WBC (Bld) 26 % 24 - 43 % [employer] Phone: MCH (RBC) [Entitic mass] 29.4 pg 25.2 - 33.5 pg [employer] Phone: MCHC (RBC) [Mass/Vol] 33.6 g/dL 28.4 - 34.8 g/dL [employer] Phone: MCV (RBC) [Entitic vol] 87.3 fL 82.6 - 102.9 fL [employer] Phone: Monocytes/100 WBC (Bld) 4 % 3 - 12 % M [employer] Phone: Morphology Mando (Bld) [Interp] Normal [employer] Phone: NRBC Automated 0.0 0.0 per 100 WBC [employer] Phone: Platelet distribution width (Bld) [Ratio] 12.9 % 11.8 - 14.4 % [employer] Phone: Platelet Estimate NOT REPORTED [employer] Phone: Platelet mean volume (Bld) [Entitic vol] 10.2 fL 8.1 - 13.5 fL [employer] Phone: Platelets (Bld) [#/Vol] 290 10*3/uL [employer] Phone: RBC (Bld) [#/Vol] 5.28 10*6/uL 4.21 - 5.7 7 m/uL [employer] Phone: RBC (Bld) [#/Vol] NOT REPORTED [employer] Phone: Segmented neutrophils/100 WBC (Bld) 69 % High 36 - 65 % [employer] Phone: Segs Absolute 10.14 High [employer] Phone: WBC (Bld) [#/Vol] 14.7 10*3/uL High [employer] Phone: WBC (Bld) [#/Vol] NOT REPORTED [employer] Phone: [facility] Work Phone: CBC with Diffon 06-09-2021 Abs. Basophil 0.00 k/uL Normal 0.0-0.2 [facility] Comment on above: Performed By: #### B MPX, TROPI DIME, CDP #### [facility] [address] [place] [address] [place] [address] Service Support Representative: Soraya Simpson MD Abs.Imm.Granulocyte 0.00 k/uL Normal 0.00-0.30 [facility] Comment on above: Performed By: #### B MPX, KELLY HANE, CDP #### [address] [place] [address] Service Support Representative: Soraya Simpson MD Abs.Neutrophil (Seg) 10.14 k/uL High 1.50-8.10 [facility] Comment on above: Performed By: #### B MPX, TROPI DIME, CDP #### [address] [place] [address] Service Support Representative: Soraya Simpson MD Basophils/100 WBC (Bld) 0 % Normal 0-2 [facility] Comment on above: Performed By: #### B MPEMELY Courtney DIME, CDP #### [address] [place] [address] Service Support Representative: Sroaya Simpson MD Eosinophils (Bld) [#/Vol] 0.15 10*3/uL Normal 0.00-0.44 [facility] Comment on above: Performed By: #### B MPX, TROPIKELLYE, CDP #### [address] [place], [place] [phone] Service Support Representative: Soraya Simpson MD Eosinophils/100 WBC (Bld) 1 % Normal 1-4 [facility] Comment on above: Performed By: #### B MPX TROPI, DIME, CDP #### [facility] [address] [place], [place] [phone] Service Support Representative: Soraya Simpson MD Immature granulocytes/100 WBC (Bld) 0 % Normal 0 [facility] Comment on above: Performed By: #### B MPX, TROPI, DIME, CDP #### [facility] [address] [place], [place] [address] Service Support Representative: Soraya Simpson MD Lymphocytes (Bld) [#/Vol] 3.82 10*3/uL High 1.10-3.70 [facility] Comment on above: Performed By: #### B MPX, TROPI, DIME, CDP #### [facility] [address] [place], [facility] Service Support Representative: Soraya Simpson MD Lymphocytes/100 WBC (Bld) 26 % Normal 24-43 [facility] Comment on above: Performed By: #### B MPX, TROPI, DIME, CDP #### [facility] [address] [place], [place] [address] Service Support Representative: Soraya Simpson MD Monocytes (Bld) [#/Vol] 0.59 10*3/uL Normal 0.10-1.20 [facility] Comment on above: Performed By: #### B MPX, TROPI, DIME, CDP #### [facility] [address] [place], [facility] Service Support Representative: Soraya Simpson MD Monocytes/100 WBC (Bld) 4 % Normal 3-12 M [facility] Comment on above: Performed By: #### B MPX, TROPI, DIME, CDP #### [facility] [address] [place], [place] [phone] Service Support Representative: Soraya Simposn MD Morphology Mando (Bld) [Interp] Normal Normal [facility] Comment on above: Performed By: #### B MPX, TROPI, DIME, CDP #### [facility] [address] [place], [place] [phone] Service Support Representative: Soraya Simpson MD Neutrophil (Seg) 69 % High 36-65 [facility] Comment on above: Performed By: #### B MPX, TROPI, DIME, CDP #### [facility] [address] [place], [place] [phone] Service Support Representative: Sroaya Simpson MD Erythrocyte distribution width (RBC) [Ratio] 12.9 % Normal 11.8-14.4 [facility] Comment on above: Performed By: #### B MPX, TROPI DIME, CDP #### [facility] [address] [place], [place] [phone] Service Support Representative: Soraya Simpson MD Hematocrit (Bld) [Volume fraction] 46.1 % Normal 40.7-50.3 [facility] Comment on above: Performed By: #### B MPX, TROPI DIME, CDP #### [address] [place], [place] [address]83 Service Support Representative: Soraya Simpson MD Hemoglobin (Bld) [Mass/Vol] 15.5 g/dL Normal 13.0-17.0 [facility] Comment on above: Performed By: #### B MPX, TROPI DIME, CDP #### [facility] [address] [place] [address] Service Support Representative: Soraya Simpson MD MCH (RBC) [Entitic mass] 29.4 pg Normal 25.2-33.5 [facility] Comment on above: Performed By: #### B MPX, TROPI, DIME, CDP #### [facility] [address] [place], [place] [phone] Service Support Representative: Soraya Simpson MD MCHC (RBC) [Mass/Vol] 33.6 g/dL Normal 28.4-34.8 [facility] Comment on above: Performed By: #### B MPX, TROPI, DIME, CDP #### [address] [place], [place] [phone] Service Support Representative: Soraya Simpson MD MCV (RBC) [Entitic vol] 87.3 fL Normal 82.6-102.9 M [facility] Comment on above: Performed By: #### B MPX, TROPI DIME, CDP #### [address] [place], [place] [phone] Service Support Representative: Soraya Simpson MD NRBC Automated 0.0 per 100 WBC Normal 0.0 [facility] Comment on above: Performed By: #### B MPX, TROPI, DIME, CDP #### [address] [place], [facility] Service Support Representative: Soraya Simpson MD Platelet mean volume (Bld) [Entitic vol] 10.2 fL Normal 8.1-13.5 [facility] Comment on above: Performed By: #### B MPX, TROPI DIME, CDP #### [address] [place], [facility] Service Support Representative: Soraya Simpson MD Platelets (Bld) [#/Vol] 290 10*3/uL Normal 138-453 [facility] Comment on above: Performed By: #### B MPX, TROPI, DIME, CDP #### [address] [place], [place] [address]83 Service Support Representative: Soraya Simpson MD RBC (Bld) [#/Vol] 5.28 10*6/uL Normal 4.21-5.77 [facility] Comment on above: Performed By: #### B MPX, TROPI, DIME, CDP #### [address] [place], [place] [address]83 Service Support Representative: Soraya Simpson MD WBC (Bld) [#/Vol] 14.7 10*3/uL High 3.5-11.3 [facility] Comment on above: Performed By: #### B MPX, TROPI, DIME, CDP #### [facility] [address] [place] [address] Service Support Representative: Soraya Simpson MD Auto Diff Performed NOT REPORTED Normal [facility] Comment on above: Performed By: #### B MPX, TROPI, DIME, CDP #### [facility] [address] [place] [address] Service Support Representative: Soraya Simpson MD Platelet Comment NOT REPORTED Normal [facility] Comment on above: Performed By: #### B MPX, TROPI, DIME, CDP #### [address] [place] [address] Service Support Representative: Soraya Simpson MD RBC morphology finding Nom (Bld) NOT REPORTED Normal [facility] Comment on above: Performed By: #### B MPX, TROPI, DIME, CDP #### [facility] [address] [place] [address] [place] [address] Service Support Representative: Soraya Simpson MD WBC Morphology NOT REPORTED Normal [facility] Comment on above: Performed By: #### B MPX, TROPI, DIME, CDP #### [facility] [address] [place] [address] [place] [address] Service Support Representative: Soraya Simpson MD COVID-19, RapidOrdered By: Trinidad Kwok on 06-09-2021 SARS-CoV-2 (COVID-19) RNA FERMIN+probe Ql (Unsp spec) Not detected Not Detected [facility] Work Phone: Comment on above: Rapid NAAT: [...] management decisions. Fact sheet for Healthcare Providers: https://www.fda.gov/media/713550/download Fact sheet for Patients: https://www.fda.gov/media/359875/download Methodology: Isothermal Nucleic Acid Amplification Specimen Description .NASOPHARYNGEAL SWAB [facility] [employer] Phone: [facility] [employer] Phone: D-Dimer Teston 06-09-2021 D-Dimer Test <0.27 Normal 0.00-0.59 [facility] Comment on above: Result Comment: When combined [...] By: #### B MPRozEMELY DIME, CDP #### [facility] [address] [place] [address] Service Support Representative: Soraya Simpson MD D-Dimer, QuantitativeOrdered By: Micheal Kwok on 06-09-2021 D-Dimer, Quant <0.27 [employer] Phone: Comment on above: When combined with [...] more prevalent in patients with distal DVT. [employer] Phone: Laboratory - Chemistry and C hemistry - challengeOrdered By: Micheal Kwok on 06-09-2021 GFR/1.73 sq M.predicted MDRD (S/P/Bld) [Vol rate/Area] [employer] Phone: Comment on above: Average GFR for 40-4 9 years old: 99 mL/min/1.73sq m Chronic Kidney Disease: <60 mL/min/1.73sq m Kidney failure: <15 mL/min/1.73sq m eGFR calculated using average adult body mass. Additional eGFR calculator available at: http://www.globalrph.ImThera Medical/multiple_crcl_2012.htm Stage 1: Some kidney damage normal GFR Stage 2: Mild kidney damage GFR 60-89 Stage 3: Moderate kidney damage GFR 30-59 Stage 4: Severe kidney damage GFR 15-29 Stage 5: Severe kidney damage GFR <15 ESRD - chronic treatment by dialysis or transplant [id number] 06-09-2021 SARS-CoV-2 (COVID-19) RNA FERMIN+probe Ql (Unsp spec) Not detected Normal NOTDET [facility] Comment on above: Result Comment: Rapid NAAT: [...] management decisions. Fact sheet for Healthcare Providers: https://www.fda.gov/media/213113/download Fact sheet for Patients: https://www.fda.gov/media/117529/download Methodology: Isothermal Nucleic Acid Amplification Performed By: #### C OVRB #### [facility] [address] [place] [address] Service Support Representative: Soraya Simpson MD Troponinon 06-09-2021 Troponin, High Sens 8 ng/L Normal 0-22 [facility] Comment on above: Result Comment: High Sensitivity Troponin values cannot be compared with other Troponin methodologies. Patients with high levels of Biotin oral intake (i.e >5mg/day) may have falsely decreased Troponin levels. Samples collected within 8 hours of biotin intake may require additional information for diagnosis. Performed By: #### B MPX, TROPI, DIME, CDP #### [facility] [address] [place] [phone] Service Support Representative: Soraya Simpson MD Troponin Interp. NOT REPORTED Normal [facility] Comment on above: Performed By: #### B MPX, TROPI, DIME, CDP #### [facility] [address] [place], [place] [address]83 Service Support Representative: Soraya Simpson MD Troponin T NOT REPORTED Normal <0.03 [facility] Comment on above: Performed By: #### B MPX, TROPI, DIME, CDP #### [facility] [address] [place], [place] [address]83 Service Support Representative: Soraya Simpson MD TroponinOrdered By: Micheal Kwok on 06-09-2021 Troponin Interp NOT REPORTED [employer] Phone: Troponin T NOT REPORTED <0.03 ng/mL [facility] Phone: Troponin, High Sensitivity 8 ng/L 0 - 22 ng/L [facility] [employer] Phone: Comment on above: High Sensitivity Troponin values cannot be compared with other Troponin methodologies. Patients with high levels of Biotin oral intake (i.e >5mg/day) may have falsely decreased Troponin levels. Samples collected within 8 hours of biotin intake may require additional information for diagnosis. [employer] Phone: XR CHEST PORTABLEon 06-09-20 XR CHEST [...] Sadi Olmedo MD 06/09/21 Final result Normal [facility] XR CHEST PORTABLEOrdered By: Micheal Kwok on 06-09-2021 Unremarkable single portable AP chest. [employer] Phone: EXAMINATION: ONE XRA Y VIEW OF [...] seen. Bones and soft tissues are unremarkable. [employer] Phone: Jasen, pn Incoming Radiant Results From [employer] - 06/09/2021 6:01 AM EDT EXAMINATION: ONE [...] unremarkable. IMPRESSION: Unremarkable single portable AP chest. [employer] Phone: [employer] Phone: COVID-19, RapidOrdered By: Geovani Tapia on 06-07-2021 SARS-CoV-2 (COVID-19) RNA FERMIN+probe Ql (Unsp spec) Not detected Not Detected [employer] Phone: Comment on above: Rapid NAAT: The [...] management decisions. Fact sheet for Healthcare Providers: https://www.fda.gov/media/784910/download Fact sheet for Patients: https://www.fda.gov/media/439914/download Methodology: Isothermal Nucleic Acid Amplification Specimen Description .NASOPHARYNGEAL SWAB [facility] [employer] Phone: [facility] [employer] Phone: [id number] 06-07-2021 SARS-CoV-2 (COVID-19) RNA FERMIN+probe Ql (Unsp spec) Not detected Normal [facility] Comment on above: Result Comment: Rapid NAAT: [...] management decisions. Fact sheet for Healthcare Providers: https://www.fda.gov/media/386476/download Fact sheet for Patients: https://www.fda.gov/media/369687/download Methodology: Isothermal Nucleic Acid Amplification Performed By: #### C OVRB #### [facility] [address] [place] [address] Service Support Representative: Soraya Simpson MD XR CHEST PORTABLEon 06-07-20 [...] Ger Morin MD 06/07/21 Final result Normal [facility] XR CHEST PORTABLEOrdered By: Linette Tapia on 06-07-2021 No acute process. [employer] Phone: EXAMINATION: ONE XRA Y VIEW OF THE CHEST 06/07/2021 2:53 pm COMPARISON: 02/17/2018 HISTORY: ORDERING SYSTEM PROVIDED HISTORY: cough, chest pain TECHNOLOGIST PROVIDED HISTORY: cough, chest pain FINDINGS: The lungs are without acute focal process. There is no effusion or pneumothorax. The cardiomediastinal silhouette is without acute process. The osseous structures are without acute process. [employer] Phone: Jasen, [facility] Incoming Radiant Results From [employer] - 06/07/2021 6:16 PM EDT EXAMINATION: ONE XRAY VIEW OF THE CHEST 06/07/2021 2:53 pm COMPARISON: 02/17/2018 HISTORY: ORDERING SYSTEM PROVIDED HISTORY: cough, chest pain TECHNOLOGIST PROVIDED HISTORY: cough, chest pain FINDINGS: The lungs are without acute focal process. There is no effusion or pneumothorax. The cardiomediastinal silhouette is without acute process. The osseous structures are without acute process. IMPRESSION: No acute process. [employer] Phone: [facility] Phone: CBC AUTO DIFFon 02-11-2021 BASO # 0.1 103/ul Normal 0.0-0.1 [facility] Comment on above: Performed By: #### C BC #### [facility] [address] [place], [place] [address] Lora Waleska Basophils/100 WBC (Bld) 0.5 % Normal 0.2-2.0 [facility] Comment on above: Performed By: #### C BC #### [facility] [address] [place], [place] [address] Lora Waleska EO # 0.1 103/ul Normal 0.0-0.7 [facility] Comment on above: Performed By: #### C BC #### [facility] [address] [place] [address] Lora Waleska Eosinophils/100 WBC (Bld) 1.0 % Normal 0.9-7.0 [facility] Comment on above: Performed By: #### C BC #### [facility] [address] [place] [address] Lora Waleska Erythrocyte distribution width (RBC) [Ratio] 13.3 % Normal 11.0-15.0 [facility] Comment on above: Performed By: #### C BC #### [facility] [address] [place] [address] Lora Waleska Hematocrit (Bld) [Volume fraction] 42.5 % Normal 42.0-54.0 [facility] Comment on above: Performed By: #### C BC #### [facility] [address] [place] [address] Lora Waleksa Hemoglobin (Bld) [Mass/Vol] 14.5 g/dL Normal 14.0-18.0 [facility] Comment on above: Performed By: #### C BC #### [facility] [address] [place] [address] Lora Waleska IG # 0.05 10e3/ul Critically high 0.00-0.03 [facility] Comment on above: Performed By: #### C BC #### [facility] [address] [place] [address] Lora Waleska IG % 0.3 % Normal 0.0-0.5 [facility] Comment on above: Performed By: #### C BC #### [facility] [address] [place], [place] [id number] Lora Waleska LYMPH # 3.4 103/ul Normal 1.2-3.8 [facility] Comment on above: Performed By: #### C BC #### [facility] [address] [place] [address] Lora Waleska Lymphocytes/100 WBC (Bld) 23.1 % Normal 20.5-60.0 [facility] Comment on above: Performed By: #### C BC #### [facility] [address] [place] [address] Lora Waleska MANUAL DIFF REQ NO Normal [facility] Comment on above: Performed By: #### C BC #### [facility] [address] [place] [address] Loralyn Galeano MCH (RBC) [Entitic mass] 29.1 pg Normal 25.9-34.0 [facility] Comment on above: Performed By: #### C BC #### [facility] [address] [place], [place] [id number] Loralyn Galeano MCHC (RBC) [Mass/Vol] 34.1 g/dL Normal 29.9-35.2 [facility] Comment on above: Performed By: #### C BC #### [facility] [address] [place], [place] [id number] Loralyn Spenceen MCV (RBC) [Entitic vol] 85.3 fL Normal 80.0-94.0 [facility] Comment on above: Performed By: #### C BC #### [facility] [address] [place], [place] [id number] Lora Waleska MONO # 0.9 103/ul Critically high 0.3-0.8 [facility] Comment on above: Performed By: #### C BC #### [facility] [address] [place], [place] [id number] Lora Waleska Monocytes/100 WBC (Bld) 6.5 % Normal 1.7-12.0 [facility] Comment on above: Performed By: #### C BC #### [facility] [address] [place], [place] [id number] Lora Waleska NEUT # 10.0 103/ul Critically high 1.4-6.5 [facility] Comment on above: Performed By: #### C BC #### [facility] [address] [place], [place] [id number] Lora Waleska Neutrophils/100 WBC (Bld) 68.6 % Normal 43.0-75.0 [facility] Comment on above: Performed By: #### C BC #### [facility] [address] [place], [place] [address] Lora Galeano Platelet mean volume (Bld) [Entitic vol] 11.2 fL Normal 9.5-13.5 [facility] Comment on above: Performed By: #### C BC #### [facility] [address] [place] [address] Lora Galeano PLT 261 103/ul Normal 150-450 [facility] Comment on above: Performed By: #### C BC #### [facility] [address] [place] [address] Lora Spenceen RBC 4.98 106/ul Normal 4.70-6.10 [facility] Comment on above: Performed By: #### C BC #### [facility] [address] [place] [address] Lora Spenceen WBC 14.5 103/ul Critically high 4.0-11.0 [facility] Comment on above: Performed By: #### C BC #### [facility] [address] [place] [address] LSPINE WO CONon CT [...] SORAYA STEWART Date: 2021-02-11 16:04 Normal [facility] PROF CHEM 8 (BAS METB)on Anion gap [Moles/Vol] 14.3 mmol/L Normal Th [facility] Comment on above: Performed By: #### B MP #### [facility] [address] [place] [address] Lora Waleska Calcium [Mass/Vol] 8.8 mg/dL Normal 8.4-10.2 [facility] Comment on above: Performed By: #### B MP #### [facility] [address] [place] [address] Lora Waleska Chloride [Moles/Vol] 104 mmol/L Normal 98-107 [facility] Comment on above: Performed By: #### B MP #### [facility] [address] [place] [address] Lora Waleska CO2 [Moles/Vol] 24.3 mmol/L Normal 22.0-30.0 [facility] Comment on above: Performed By: #### B MP #### [facility] [address] [place] [address] Lora Waleska Creatinine [Mass/Vol] 0.79 mg/dL Normal 0.66-1.25 [facility] Comment on above: Performed By: #### B MP #### [facility] [address] [place] [address] Lora Waleska EGFR-AF COSTA RICAN >60 Normal >=60 [facility] Comment on above: Performed By: #### B MP #### [facility] [address] [place] [address] Lora Waleska EGFR-NON AF [place] R[place] >60 Normal >=60 [facility] Comment on above: Performed By: #### B MP #### [facility] [address] [place] [address] Lora Waleska Glucose [Mass/Vol] 107 mg/dL Critically high 74-106 [facility] Comment on above: Performed By: #### B MP #### [facility] [address] [place] [address] Lora Waleska Potassium [Moles/Vol] 3.6 mmol/L Normal 3.4-5.0 [facility] Comment on above: Performed By: #### B MP #### [facility] [address] [place], [place] [address] Lora Waleska Sodium [Moles/Vol] 139 mmol/L Normal 137-145 [facility] Comment on above: Performed By: #### B MP #### [facility] [address] [place], [place] [address] Lora Waleska Urea nitrogen [Mass/Vol] 9.0 mg/dL Normal 9.0-20.0 [facility] Comment on above: Performed By: #### B MP #### [facility] [address] [place], [place] [address] Lora Waleska Urea nitrogen/Creatinine [Mass ratio] 11.4 mg/mg Normal [facility] Comment on above: Performed By: #### B MP #### [facility] [address] [place], [place] [address] Lora Galeano Amylaseon 06-13-2019 Amylase [Catalytic activity/Vol] 58 U/L Normal 28-100 [facility] Comment on above: Performed By: #### C BC, PT, CMPX, ALEJANDRO, LIP, MG, KAM, TRIG #### [facility] [address] [place], [place] [phone] Service Support Representative: Sadi Gambino MD #### IOCAL #### [facility] [address] [place], [place] [id number] Service Support Representative: Sha Nicholson MD Amylase [Catalytic activity/Vol] 58 U/L 28 - 100 U/L [place], [place] CBC Auto Differentialon Basophils (Bld) [#/Vol] 0.04 10*3/uL [place] Basophils/100 WBC (Bld) 0 % 0 - 2 % [place], [place] Differential Type NOT REPORTED [place] Eosinophils (Bld) [#/Vol] 10*3/uL [place] Eosinophils/100 WBC (Bld) 0 % Low 1 - 4 % [place] Erythrocyte distribution width (RBC) [Ratio] 12.2 % 11.8 - 14.4 % [place] Hematocrit (Bld) [Volume fraction] 40.6 % Low 40.7 - 50.3 % [place] Hemoglobin (Bld) [Mass/Vol] 14.7 g/dL 13 - 17 g/dL [place] Immature granulocytes (Bld) [#/Vol] 0.10 10*3/uL [place] Immature granulocytes (Bld) [#/Vol] 1 % High 0 [place] Interpretation and review of laboratory results Abnormal [place] Lymphocytes (Bld) [#/Vol] 2.50 10*3/uL [place] Lymphocytes/100 WBC (Bld) 16 % Low 24 - 43 % [place] MCH (RBC) [Entitic mass] 30.9 pg 25.2 - 33.5 pg [place] MCHC (RBC) [Mass/Vol] 36.2 g/dL High 28.4 - 34.8 g/dL [place] MCV (RBC) [Entitic vol] 85.5 fL 82.6 - 102.9 fL [place] Monocytes (Bld) [#/Vol] 1.08 10*3/uL [place] Monocytes/100 WBC (Bld) 7 % 3 - 12 % [place], [place] Platelet mean volume (Bld) [Entitic vol] 10.7 fL 8.1 - 13.5 fL [place] Platelets (Bld) [#/Vol] 299 10*3/uL [place] Platelets (Bld) [#/Vol] NOT REPORTED [place] RBC (Bld) [#/Vol] 4.75 10*6/uL 4.21 - 5.7 7 m/uL [place] RBC morphology finding Nom (Bld) NOT REPORTED [place] Segmented neutrophils/100 WBC (Bld) 77 % High 36 - 65 % [place] Segs Absolute 12.16 High [place] WBC (Bld) [#/Vol] 15.9 10*3/uL High [facility] [place] WBC (Bld) [#/Vol] 0.0 10*3/uL 0.0 per 10 0 WBC [place] WBC Morphology NOT REPORTED [place] CBC with Diffon 06-13-2019 Abs. Basophil 0.04 k/uL Normal 0.00-0.20 [facility] Comment on above: Performed By: #### C BC, PT, CMPX, ALEJANDRO, LIP, MG, KAM, TRIG #### [facility] [place] [address] Service Support Representative: Sadi Gambino MD #### IOCAL #### [address] [address] Service Support Representative: Sha Nicholson MD Abs.Imm.Granulocyte 0.10 k/uL Normal 0.00-0.30 [facility] Comment on above: Performed By: #### C BC, PT, CMPX, ALEJANDRO, LIP, MG, KAM, TRIG #### [facility] [address] [place] [address] Service Support Representative: Sadi Gambino MD #### IOCAL #### [address] [address] Service Support Representative: Sha Nicholson MD Abs.Neutrophil (Seg) 12.16 k/uL High 1.50-8.10 [facility] Comment on above: Performed By: #### C BC, PT, CMPX, ALEJANDRO, LIP, MG, KAM, TRIG #### [facility] [address] [place] [address] Service Support Representative: Sadi Gambino MD #### IOCAL #### [address] [address] Service Support Representative: Sha Nicholson MD Basophils/100 WBC (Bld) 0 % Normal 0-2 [facility] Comment on above: Performed By: #### C BC, PT, CMPX, ALEJANDRO, LIP, MG, KAM, TRIG #### [facility] [address] [place] [address] Service Support Representative: Sadi Gambino MD #### IOCAL #### [address] [address] Service Support Representative: Sha Nicholson MD Eosinophils (Bld) [#/Vol] 10*3/uL Normal 0.00-0.44 [facility] Comment on above: Performed By: #### C BC, PT, CMPX, ALEJANDRO, LIP, MG, KAM, TRIG #### [facility] [address] [place] [address] Service Support Representative: Sadi Gambino MD #### IOCAL #### [address] [address] Service Support Representative: Sha Nicholson MD Eosinophils/100 WBC (Bld) 0 % Low 1-4 [facility] Comment on above: Performed By: #### C BC, PT, CMPX, ALEJANDRO, LIP, MG, KAM, TRIG #### [facility] [address] [place] [address] Service Support Representative: Sadi Gambino MD #### IOCAL #### [address] [address] Service Support Representative: Sha Nicholson MD Erythrocyte distribution width (RBC) [Ratio] 12.2 % Normal 11.8-14.4 [facility] Comment on above: Performed By: #### C BC, PT, CMPX, ALEJANDRO, LIP, MG, KAM, TRIG #### [facility] [address] [place] [address] Service Support Representative: Sadi Gambino MD #### IOCAL #### [address] [address] Service Support Representative: Sha Nicholson MD Hematocrit (Bld) [Volume fraction] 40.6 % Low 40.7-50.3 [facility] Comment on above: Performed By: #### C BC, PT, CMPX, ALEJANDRO, LIP, MG, KAM, TRIG #### [facility] [address] [place] [address] Service Support Representative: Sadi Gambino MD #### IOCAL #### [place] [address] Service Support Representative: Sha Nicholson MD Hemoglobin (Bld) [Mass/Vol] 14.7 g/dL Normal 13.0-17.0 [facility] Comment on above: Performed By: #### C BC, PT, CMPX, ALEJANDRO, LIP, MG, KAM, TRIG #### [facility] [address] [place] [address] Service Support Representative: Sadi Gambino MD #### IOCAL #### [place] [address] Service Support Representative: Sha Nicholson MD Immature granulocytes (Bld) [#/Vol] 1 % High 0 [facility] Comment on above: Performed By: #### C BC, PT, CMPX, ALEJANDRO, LIP, MG, KAM, TRIG #### [facility] [address] [place] [address] Service Support Representative: Sadi Gambino MD #### IOCAL #### [place] [address] Service Support Representative: Sha Nicholson MD Lymphocytes (Bld) [#/Vol] 2.50 10*3/uL Normal 1.10-3.70 [facility] Comment on above: Performed By: #### C BC, PT, CMPX, ALEJANDRO, LIP, MG, KAM, TRIG #### [facility] [address] [place] [address] Service Support Representative: Sadi Gambino MD #### IOCAL #### [address] [address] Service Support Representative: Sha Nicholson MD Lymphocytes/100 WBC (Bld) 16 % Low 24-43 [facility] Comment on above: Performed By: #### C BC, PT, CMPX, ALEJANDRO, LIP, MG, KAM, TRIG #### [facility] [address] [place] [address] Service Support Representative: Sadi Gambino MD #### IOCAL #### [address] [address] Service Support Representative: Sha Nicholson MD MCH (RBC) [Entitic mass] 30.9 pg Normal 25.2-33.5 [facility] Comment on above: Performed By: #### C BC, PT, CMPX, ALEJANDRO, LIP, MG, KAM, TRIG #### [facility] [address] [place] [address] Service Support Representative: Sadi Gambino MD #### IOCAL #### [address] [address] Service Support Representative: Sha Nicholson MD MCHC (RBC) [Mass/Vol] 36.2 g/dL High 28.4-34.8 [facility] Comment on above: Performed By: #### C BC, PT, CMPX, ALEJANDRO, LIP, MG, KAM, TRIG #### [facility] [address] [place] [address] Service Support Representative: Sadi Gambino MD #### IOCAL #### [address] [address] Service Support Representative: Sha Nicholson MD MCV (RBC) [Entitic vol] 85.5 fL Normal 82.6-102.9 [facility] Comment on above: Performed By: #### C BC, PT, CMPX, ALEJANDRO, LIP, MG, KAM, TRIG #### [facility] [address] [place] [phone] Service Support Representative: Sadi Gambino MD #### IOCAL #### [address] [address] Service Support Representative: Sha Nicholson MD Monocytes (Bld) [#/Vol] 1.08 10*3/uL Normal 0.10-1.20 [facility] Comment on above: Performed By: #### C BC, PT, CMPX, ALEJANDRO, LIP, MG, KAM, TRIG #### [facility] [address] [place] [address] Service Support Representative: Sadi Gambino MD #### IOCAL #### [address] [address] Service Support Representative: Sha Nicholson MD Monocytes/100 WBC (Bld) 7 % Normal 3-12 [facility] Comment on above: Performed By: #### C BC, PT, CMPX, ALEJANDRO, LIP, MG, KAM, TRIG #### [facility] [address] [place] [address] Service Support Representative: Sadi Gambino MD #### IOCAL #### [address] [address] Service Support Representative: Sha Nicholson MD Neutrophil (Seg) 77 % High 36-65 [facility] Comment on above: Performed By: #### C BC, PT, CMPX, ALEJANDRO, LIP, MG, KAM, TRIG #### [facility] [address] [place] [address] Service Support Representative: Sadi Gambino MD #### IOCAL #### [address] [address] Service Support Representative: Sha Nicholson MD NRBC Automated 0.0 per [address] [facility] Comment on above: Performed By: #### C BC, PT, CMPX, ALEJANDRO, LIP, MG, KAM, TRIG #### [facility] [address] [place] [address] Service Support Representative: Sadi Gambino MD #### IOCAL #### [address] [address] Service Support Representative: Sha Nicholson MD Platelet mean volume (Bld) [Entitic vol] 10.7 fL Normal 8.1-13.5 [facility] Comment on above: Performed By: #### C BC, PT, CMPX, ALEJANDRO, LIP, MG, KAM, TRIG #### [facility] [place] [address] Service Support Representative: Sadi Gambino MD #### IOCAL #### [address] [address] Service Support Representative: Sha Nicholson MD Platelets (Bld) [#/Vol] 299 10*3/uL Normal 138-453 [facility] Comment on above: Performed By: #### C BC, PT, CMPX, ALEJANDRO, LIP, MG, KAM, TRIG #### [facility] [place] [address] Service Support Representative: Sadi Gambino MD #### IOCAL #### [address] [address] Service Support Representative: Sha Nicholson MD RBC (Bld) [#/Vol] 4.75 10*6/uL Normal 4.21-5.77 [facility] Comment on above: Performed By: #### C BC, PT, CMPX, ALEJANDRO, LIP, MG, KAM, TRIG #### [facility] [address] [place] [address] Service Support Representative: Sadi Gambino MD #### IOCAL #### [address] [address] Service Support Representative: Sha Nicholson MD WBC (Bld) [#/Vol] 15.9 10*3/uL High 3.5-11.3 [facility] Comment on above: Performed By: #### C BC, PT, CMPX, ALEJANDRO, LIP, MG, KAM, TRIG #### [facility] [address] [place] [address] Service Support Representative: Sadi Gambino MD #### IOCAL #### [address] [address] Service Support Representative: Sha Nicholson MD Auto Diff Performed NOT REPORTED Normal [facility] Comment on above: Performed By: #### C BC, PT, CMPX, ALEJANDRO, LIP, MG, KAM, TRIG #### [facility] [address] [place] [address] Service Support Representative: Sadi Gambino MD #### IOCAL #### [address] [address] Service Support Representative: Sha Nicholson MD Platelets (Bld) [#/Vol] NOT REPORTED Normal [facility] Comment on above: Performed By: #### C BC, PT, CMPX, ALEJANDRO, LIP, MG, KAM, TRIG #### [facility] [address] [place] [address] Service Support Representative: Sadi Gambino MD #### IOCAL #### [address] [address] Service Support Representative: Sha Nicholson MD RBC morphology finding Nom (Bld) NOT REPORTED Normal [facility] Comment on above: Performed By: #### C BC, PT, CMPX, ALEJANDRO, LIP, MG, KAM, TRIG #### [facility] [address] [place] [address] Service Support Representative: Sadi Gambino MD #### IOCAL #### [id number] [place] [address] Service Support Representative: Sha Nicholson MD WBC Morphology NOT REPORTED Normal [facility] Comment on above: Performed By: #### C BC, PT, CMPX, ALEJANDRO, LIP, MG, KAM, TRIG #### [facility] [address] [place], [place] [phone] Service Support Representative: Sadi Gambino MD #### IOCAL #### [address] [address] Service Support Representative: Sha Nicholson MD Comp Metab w/Bili Pron 06-13 (cont.) Normal [facility] Comment on above: Result Comment: Aver age GFR for 30-39 years old: 107 mL/min/1.73sq m Chronic Kidney Disease: <60 mL/min/1.73sq m Kidney failure: <15 mL/min/1.73sq m eGFR calculated using average adult body mass. Additional eGFR calculator available at: http://www.[employer].com/multiple_crcl_2012.htm Performed By: #### C BC, PT, CMPX, ALEJANDRO, LIP, MG, KAM, TRIG #### [facility] [address] [place] [address] Service Support Representative: Sadi Gambino MD #### IOCAL #### [facility] [address] [place] [address] Service Support Representative: Sha Nicholson MD Albumin [Mass/Vol] 4.3 g/dL Normal 3.5-5.2 [facility] Comment on above: Performed By: #### C BC, PT, CMPX, ALEJANDRO, LIP, MG, KAM, TRIG #### [facility] [address] [place] [address] Service Support Representative: Sadi Gambino MD #### IOCAL #### [address] [address] Service Support Representative: Sha Nicohlson MD Alkaline Phos 91 U/L Normal 40-129 [facility] Comment on above: Performed By: #### C BC, PT, CMPX, ALEJANDRO, LIP, MG, KAM, TRIG #### [facility] [address] [place] [address] Service Support Representative: Sadi Gambino MD #### IOCAL #### [address] [address] Service Support Representative: Sha Nicholson MD ALT [Catalytic activity/Vol] 187 U/L High 5-41 [facility] Comment on above: Performed By: #### C BC, PT, CMPX, ALEJANDRO, LIP, MG, KAM, TRIG #### [facility] [address] [place] [address] Service Support Representative: Sadi Gambino MD #### IOCAL #### [address] [address] Service Support Representative: Sha Nicholson MD Anion gap [Moles/Vol] 12 mmol/L Normal 9-17 [facility] Comment on above: Performed By: #### C BC, PT, CMPX, ALEJANDRO, LIP, MG, KAM, TRIG #### [facility] [address] [place] [address] Service Support Representative: Sadi Gambino MD #### IOCAL #### [address] [address] Service Support Representative: Sha Nicholson MD AST [Catalytic activity/Vol] 91 U/L High <40 [facility] Comment on above: Performed By: #### C BC, PT, CMPX, ALEJANDRO, LIP, MG, KAM, TRIG #### [facility] [address] [place] [address] Service Support Representative: Sadi Gambino MD #### IOCAL #### [address] [address] Service Support Representative: Sha Nicholson MD Bilirubin Ql (U) 0.74 mg/dL Normal 0.3-1.2 [facility] Comment on above: Performed By: #### C BC, PT, CMPX, ALEJANDRO, LIP, MG, KAM, TRIG #### [facility] [address] [place] [address] Service Support Representative: Sadi Gambino MD #### IOCAL #### [address] [address] Service Support Representative: Sha Nicholson MD Bilirubin, Indirect 0.46 mg/dL Normal 0.00-1.00 [facility] Comment on above: Performed By: #### C BC, PT, CMPX, ALEJANDRO, LIP, MG, KAM, TRIG #### [facility] [place] [address] Service Support Representative: Sadi Gambino MD #### IOCAL #### [address] [address] Service Support Representative: Sha Nicholson MD Bilirubin.direct [Mass/Vol] 0.28 mg/dL Normal <0.31 [facility] Comment on above: Performed By: #### C BC, PT, CMPX, ALEJANDRO, LIP, MG, KAM, TRIG #### [facility] [address] [place] [address] Service Support Representative: Sadi Gambino MD #### IOCAL #### [address] [address] Service Support Representative: Sha Nicholson MD Calcium [Mass/Vol] 9.3 mg/dL Normal 8.6-10.4 [facility] Comment on above: Performed By: #### C BC, PT, CMPX, ALEJANDRO, LIP, MG, KAM, TRIG #### [facility] [address] [place] [address] Service Support Representative: Sadi Gambino MD #### IOCAL #### [address] [address] Service Support Representative: Sha Nicholson MD Chloride [Moles/Vol] 100 mmol/L Normal 98-107 [facility] Comment on above: Performed By: #### C BC, PT, CMPX, ALEJANDRO, LIP, MG, KAM, TRIG #### [facility] [address] [place] [address] Service Support Representative: Sadi Gambino MD #### IOCAL #### [address] [address] Service Support Representative: Sha Nicholson MD CO2 [Moles/Vol] 26 mmol/L Normal 20-31 [facility] Comment on above: Performed By: #### C BC, PT, CMPX, ALEJANDRO, LIP, MG, KAM, TRIG #### [facility] [address] [place] [address] Service Support Representative: Sadi Gambino MD #### IOCAL #### [address] [address] Service Support Representative: Sha Nicholson MD Creatinine [Mass/Vol] 0.56 mg/dL Low 0.70-1.20 [facility] Comment on above: Performed By: #### C BC, PT, CMPX, ALEJANDRO, LIP, MG, KAM, TRIG #### [facility] [address] [place] [address] Service Support Representative: Sadi Gambino MD #### IOCAL #### [address] [address] Service Support Representative: Sha Nicholson MD GFR, Amer >60 Normal >60 [facility] Comment on above: Performed By: #### C BC, PT, CMPX, ALEJANDRO, LIP, MG, KAM, TRIG #### [facility] [address] [place] [address] Service Support Representative: Sadi Gambino MD #### IOCAL #### [address] [address] Service Support Representative: Sha Nicholson MD GFR,non Amer >60 Normal >60 [facility] Comment on above: Performed By: #### C BC, PT, CMPX, ALEJANDRO, LIP, MG, KAM, TRIG #### [facility] [address] [place] [address] Service Support Representative: Sadi Gambino MD #### IOCAL #### [address] [address] Service Support Representative: Sha Nicholson MD Glucose [Mass/Vol] 119 mg/dL High 70-99 [facility] Comment on above: Performed By: #### C BC, PT, CMPX, ALEJANDRO, LIP, MG, KAM, TRIG #### [facility] [address] [place] [address] Service Support Representative: Sadi Gambino MD #### IOCAL #### [address] [address] Service Support Representative: Sha Nicholson MD Potassium [Moles/Vol] 3.9 mmol/L Normal 3.7-5.3 [facility] Comment on above: Performed By: #### C BC, PT, CMPX, ALEJANDRO, LIP, MG, KAM, TRIG #### [facility] [place] [address] Service Support Representative: Sadi Gambino MD #### IOCAL #### [address] [address] Service Support Representative: Sha Nicholson MD Protein [Mass/Vol] 7.1 g/dL Normal 6.4-8.3 [facility] Comment on above: Performed By: #### C BC, PT, CMPX, ALEJANDRO, LIP, MG, KAM, TRIG #### [facility] [address] [place] [phone] Service Support Representative: Sadi Gambino MD #### IOCAL #### [address] [address] Service Support Representative: Sha Nicholson MD Sodium [Moles/Vol] 138 mmol/L Normal 135-144 [facility] Comment on above: Performed By: #### C BC, PT, CMPX, ALEJANDRO, LIP, MG, KAM, TRIG #### [facility] [place] [address] Service Support Representative: Sadi Gambino MD #### IOCAL #### [address] [address] Service Support Representative: Sha Nicholson MD Urea nitrogen [Mass/Vol] 8 mg/dL Normal 6-20 [facility] Comment on above: Performed By: #### C BC, PT, CMPX, ALEJANDRO, LIP, MG, KAM, TRIG #### [facility] [address] [place] [address] Service Support Representative: Sadi Gambino MD #### IOCAL #### [address] [address] Service Support Representative: Sha Nicholson MD Albumin/Globulin [Mass ratio] NOT REPORTED Normal 1.0-2.5 [facility] Comment on above: Performed By: #### C BC, PT, CMPX, ALEJANDRO, LIP, MG, KAM, TRIG #### [facility] [address] [place] [address] Service Support Representative: Sadi Gambino MD #### IOCAL #### [address] [address] Service Support Representative: Sha Nicholson MD Staging: NOT REPORTED Normal [facility] Comment on above: Performed By: #### C BC, PT, CMPX, ALEJANDRO, LIP, MG, KAM, TRIG #### [facility] [address] [place] [address] Service Support Representative: Sadi Gambino MD #### IOCAL #### [address] [address] Service Support Representative: Sha Nicholson MD Comp Metabolic w Bili Profil med 06-13-2019 Albumin [Mass/Vol] 4.3 g/dL 3.5 - 5.2 g/dL [place], [place] Albumin/Globulin [Mass ratio] NOT REPORTED [place] ALP [Catalytic activity/Vol] 91 U/L 40 - 129 U/L [place] ALT [Catalytic activity/Vol] 187 U/L High 5 - 41 U/L [place] Anion gap [Moles/Vol] 12 mmol/L 9 - 17 mmol/L [place] AST [Catalytic activity/Vol] 91 U/L High <40 [place] Bilirubin Ql (U) 0.74 mg/dL 0.3 - 1.2 mg/dL [place] Bilirubin, Indirect 0.46 mg/dL 0 - 1 mg/dL [place] Bilirubin.direct [Mass/Vol] 0.28 mg/dL <0.31 [place] Calcium [Mass/Vol] 9.3 mg/dL 8.6 - 10. 4 mg/dL [place] Chloride [Moles/Vol] 100 mmol/L 98 - 10 7 mmol/L [place] CO2 [Moles/Vol] 26 mmol/L 20 - 31 mmol/L [place] Creatinine [Mass/Vol] 0.56 mg/dL Low 0.7 - 1.2 mg/dL [place] GFR >60 >60 mL/min [place] GFR Non- >60 >60 mL/min [place] GFR/1.73 sq M predicted among non-blacks MDRD (S/P/Bld) [Vol rate/Area] NOT REPORTED [place] GFR/1.73 sq M predicted among non-blacks MDRD (S/P/Bld) [Vol rate/Area] [place] Comment on above: Average GFR for 30-3 9 years old: 107 mL/min/1.73sq m Chronic Kidney Disease: <60 mL/min/1.73sq m Kidney failure: <15 mL/min/1.73sq m eGFR calculated using average adult body mass. Additional eGFR calculator available at: http://www.[employer]/multiple_crcl_2012.htm Glucose [Mass/Vol] 119 mg/dL High 70 - 99 mg/dL [place], [place] Interpretation and review of laboratory results Abnormal [place] Potassium [Moles/Vol] 3.9 mmol/L 3.7 - 5.3 mmol/L [place] Protein [Mass/Vol] 7.1 g/dL 6.4 - 8.3 g/dL [place] Sodium [Moles/Vol] 138 mmol/L 135 - 144 mmol/L [place] Urea nitrogen [Mass/Vol] 8 mg/dL 6 - 20 mg/dL [place] Lipaseon 06-13-2019 Lipase [Catalytic activity/Vol] 59 U/L Normal 13-60 [facility] Comment on above: Performed By: #### C BC, PT, CMPX, ALEJANDRO, LIP, MG, KAM, TRIG #### [facility] [address] [place], [place] [phone] Service Support Representative: Sadi Gambino MD #### IOCAL #### [id number] [place], [place] [phone] Service Support Representative: Sha Nicholson MD Lipase [Catalytic activity/Vol] 59 U/L 13 - 60 U/L [place] Magnesiumon 06-13-2019 Magnesium [Mass/Vol] 1.9 mg/dL Normal 1.6-2.6 [facility] Comment on above: Performed By: #### C BC, PT, CMPX, ALEJANDRO, LIP, MG, KAM, TRIG #### [facility] [address] [place], [place] [phone] Service Support Representative: Sadi Gambino MD #### IOCAL #### [address] [phone] Service Support Representative: Sha Nicholson MD Magnesium [Mass/Vol] 1.9 mg/dL 1.6 - 2 .6 mg/dL [place] Basic Metabolic Panelon -0 Anion gap [Moles/Vol] 11 mmol/L 9 - 17 mmol/L [place] Bun/Cre Ratio 20 [place] Calcium [Mass/Vol] 9.0 mg/dL 8.6 - 10. 4 mg/dL [place] Chloride [Moles/Vol] 101 mmol/L 98 - 10 7 mmol/L [place] CO2 [Moles/Vol] 24 mmol/L 20 - 31 mmol/L [place] Creatinine [Mass/Vol] 0.44 mg/dL Low 0.7 - 1.2 mg/dL [place] GFR >60 >60 mL/min [place] GFR Non- >60 >60 mL/min [place] GFR/1.73 sq M predicted among non-blacks MDRD (S/P/Bld) [Vol rate/Area] NOT REPORTED [place] GFR/1.73 sq M predicted among non-blacks MDRD (S/P/Bld) [Vol rate/Area] [place] Comment on above: Average GFR for 30-3 9 years old: 107 mL/min/1.73sq m Chronic Kidney Disease: <60 mL/min/1.73sq m Kidney failure: <15 mL/min/1.73sq m eGFR calculated using average adult body mass. Additional eGFR calculator available at: http://www.[employer]/multiple_crcl_2011.htm Glucose [Mass/Vol] 164 mg/dL High 70 - 99 mg/dL [place] Interpretation and review of laboratory results Abnormal [place] Potassium [Moles/Vol] 4.1 mmol/L 3.7 - 5.3 mmol/L [place] Sodium [Moles/Vol] 136 mmol/L 135 - 144 mmol/L [place] Urea nitrogen [Mass/Vol] 9 mg/dL 6 - 20 mg/dL [place] Basic Metabolic Profon 06-12 (cont.) Normal [facility] Comment on above: Result Comment: Aver age GFR for 30-39 years old: 107 mL/min/1.73sq m Chronic Kidney Disease: <60 mL/min/1.73sq m Kidney failure: <15 mL/min/1.73sq m eGFR calculated using average adult body mass. Additional eGFR calculator available at: http://www.[employer]/multiple_crcl_2012.htm Performed By: #### C BC, PT, CMPX, ALEJANDRO, LIP, MG, KAM, TRIG #### [facility] [address] [place] [address] Service Support Representative: Sadi Gambino MD #### IOCAL #### [address] [address] Service Support Representative: Sha Nicholson MD Anion gap [Moles/Vol] 11 mmol/L Normal 9-17 [facility] Comment on above: Performed By: #### C BC, PT, CMPX, ALEJANDRO, LIP, MG, KAM, TRIG #### [facility] [address] [place] [address] Service Support Representative: Sadi Gambino MD #### IOCAL #### [address] [address] Service Support Representative: Sha Nicholson MD BUN/CRE Ratio 20 Normal 9-20 [facility] Comment on above: Performed By: #### C BC, PT, CMPX, ALEJANDRO, LIP, MG, KAM, TRIG #### [facility] [place] [address] Service Support Representative: Sadi Gambino MD #### IOCAL #### [address] [address] Service Support Representative: Sha Nicholson MD Calcium [Mass/Vol] 9.0 mg/dL Normal 8.6-10.4 [facility] Comment on above: Performed By: #### C BC, PT, CMPX, ALEJANDRO, LIP, MG, KAM, TRIG #### [facility] [place] [address] Service Support Representative: Sadi Gambino MD #### IOCAL #### [address] [address] Service Support Representative: Sha Nicholson MD Chloride [Moles/Vol] 101 mmol/L Normal 98-107 [facility] Comment on above: Performed By: #### C BC, PT, CMPX, ALEJANDRO, LIP, MG, KAM, TRIG #### [facility] [address] [place] [address] Service Support Representative: Sadi Gambino MD #### IOCAL #### [address] [address] Service Support Representative: Sha Nicholson MD CO2 [Moles/Vol] 24 mmol/L Normal 20-31 [facility] Comment on above: Performed By: #### C BC, PT, CMPX, ALEJANDRO, LIP, MG, KAM, TRIG #### [facility] [address] [place] [address] Service Support Representative: Sadi Gambino MD #### IOCAL #### [address] [address] Service Support Representative: Sha Nicholson MD Creatinine [Mass/Vol] 0.44 mg/dL Low 0.70-1.20 [facility] Comment on above: Performed By: #### C BC, PT, CMPX, ALEJANDRO, LIP, MG, KAM, TRIG #### [facility] [address] [place] [address] Service Support Representative: Sadi Gambino MD #### IOCAL #### [address] [address] Service Support Representative: Sha Nicholson MD GFR, Amer >60 Normal >60 [facility] Comment on above: Performed By: #### C BC, PT, CMPX, ALEJANDRO, LIP, MG, KAM, TRIG #### [facility] [address] [place] [address] Service Support Representative: Sadi Gambino MD #### IOCAL #### [address] [address] Service Support Representative: Sha Nicholson MD GFR,non Amer >60 Normal >60 [facility] Comment on above: Performed By: #### C BC, PT, CMPX, ALEJANDRO, LIP, MG, KAM, TRIG #### [facility] [address] [place] [address] Service Support Representative: Sadi Gambino MD #### IOCAL #### [address] [address] Service Support Representative: Sha Nicholson MD Glucose [Mass/Vol] 164 mg/dL High 70-99 [facility] Comment on above: Performed By: #### C BC, PT, CMPX, ALEJANDRO, LIP, MG, KAM, TRIG #### [facility] [address] [place] [address] Service Support Representative: Sadi Gambino MD #### IOCAL #### [address] [address] Service Support Representative: Sha Nicholson MD Potassium [Moles/Vol] 4.1 mmol/L Normal 3.7-5.3 [facility] Comment on above: Performed By: #### C BC, PT, CMPX, ALEJANDRO, LIP, MG, KAM, TRIG #### [facility] [place] [address] Service Support Representative: Sadi Gambino MD #### IOCAL #### [address] [address] Service Support Representative: Sha Nicholson MD Sodium [Moles/Vol] 136 mmol/L Normal 135-144 [facility] Comment on above: Performed By: #### C BC, PT, CMPX, ALEJANDRO, LIP, MG, KAM, TRIG #### [facility] [address] [place] [address] [phone] Service Support Representative: Sadi Gambino MD #### IOCAL #### [address] [phone] Service Support Representative: Sha Nicholson MD Urea nitrogen [Mass/Vol] 9 mg/dL Normal 6-20 [facility] Comment on above: Performed By: #### C BC, PT, CMPX, ALEJANDRO, LIP, MG, KAM, TRIG #### [facility] [address] [place], [place] [phone] Service Support Representative: Sadi Gambino MD #### IOCAL #### [address] [phone] Service Support Representative: Sha Nicholson MD Staging: NOT REPORTED Normal [facility] Comment on above: Performed By: #### C BC, PT, CMPX, ALEJANDRO, LIP, MG, KAM, TRIG #### [facility] [address] [place], [place] [phone] Service Support Representative: Sadi Gambino MD #### IOCAL #### [address] [phone] Service Support Representative: Sha Nicholson MD CBC Auto Differentialon 11- Basophils (Bld) [#/Vol] 10*3/uL [place] Basophils/100 WBC (Bld) 0 % 0 - 2 % [place] Differential Type NOT REPORTED [place] Eosinophils (Bld) [#/Vol] 10*3/uL [place] Eosinophils/100 WBC (Bld) 0 % Low 1 - 4 % [place] Erythrocyte distribution width (RBC) [Ratio] 11.9 % 11.8 - 14.4 % [place] Hematocrit (Bld) [Volume fraction] 36.8 % Low 40.7 - 50.3 % [place] Hemoglobin (Bld) [Mass/Vol] 13.2 g/dL 13 - 17 g/dL [place] Immature granulocytes (Bld) [#/Vol] 0 % 0 [place] Immature granulocytes (Bld) [#/Vol] 0.04 10*3/uL [place] Interpretation and review of laboratory results Abnormal [place] Lymphocytes (Bld) [#/Vol] 1.44 10*3/uL [place] Lymphocytes/100 WBC (Bld) 14 % Low 24 - 43 % [place] MCH (RBC) [Entitic mass] 30.2 pg 25.2 - 33.5 pg [place] MCHC (RBC) [Mass/Vol] 35.9 g/dL High 28.4 - 34.8 g/dL [place] MCV (RBC) [Entitic vol] 84.2 fL 82.6 - 102.9 fL [place] Monocytes (Bld) [#/Vol] 0.52 10*3/uL [place] Monocytes/100 WBC (Bld) 5 % 3 - 12 % M [place], [place] Platelet mean volume (Bld) [Entitic vol] 10.9 fL 8.1 - 13.5 fL [place] Platelets (Bld) [#/Vol] NOT REPORTED [place] Platelets (Bld) [#/Vol] 256 10*3/uL [place] RBC (Bld) [#/Vol] 4.37 10*6/uL 4.21 - 5.7 7 m/uL [place] RBC morphology finding Nom (Bld) NOT REPORTED [place] Segmented neutrophils/100 WBC (Bld) 81 % High 36 - 65 % [place] Segs Absolute 8.50 High [place] WBC (Bld) [#/Vol] 10.5 10*3/uL [place] WBC (Bld) [#/Vol] 0.0 10*3/uL 0.0 per 10 0 WBC [place] WBC Morphology NOT REPORTED [place] CBC with Diffon 06-12-2019 Abs. Basophil <0.03 Normal 0.00-0.20 [facility] Comment on above: Performed By: #### C BC, PT, CMPX, ALEJANDRO, LIP, MG, KAM, TRIG #### [facility] [address] [place] [address] Service Support Representative: Sadi Gambino MD #### IOCAL #### [address] [address] Service Support Representative: Sha Nicholson MD Abs.Imm.Granulocyte 0.04 k/uL Normal 0.00-0.30 [facility] Comment on above: Performed By: #### C BC, PT, CMPX, ALEJANDRO, LIP, MG, KAM, TRIG #### [facility] [address] [place] [address] Service Support Representative: Sadi Gambino MD #### IOCAL #### [address] [address] Service Support Representative: Sha Nicholson MD Abs.Neutrophil (Seg) 8.50 k/uL High 1.50-8.10 [facility] Comment on above: Performed By: #### C BC, PT, CMPX, ALEJANDRO, LIP, MG, KAM, TRIG #### [facility] [address] [place] [address] Service Support Representative: Sadi Gambino MD #### IOCAL #### [address] [address] Service Support Representative: Sha Nicholson MD Basophils/100 WBC (Bld) 0 % Normal 0-2 [facility] Comment on above: Performed By: #### C BC, PT, CMPX, ALEJANDRO, LIP, MG, KAM, TRIG #### [facility] [address] [place] [address] Service Support Representative: Sadi Gambino MD #### IOCAL #### [address] [address] Service Support Representative: Sha Nicholson MD Eosinophils (Bld) [#/Vol] 10*3/uL Normal 0.00-0.44 [facility] Comment on above: Performed By: #### C BC, PT, CMPX, ALEJANDRO, LIP, MG, KAM, TRIG #### [facility] [address] [place] [address] Service Support Representative: Sadi Gambino MD #### IOCAL #### [address] [address] Service Support Representative: Sha Nicholson MD Eosinophils/100 WBC (Bld) 0 % Low 1-4 [facility] Comment on above: Performed By: #### C BC, PT, CMPX, ALEJANDRO, LIP, MG, KAM, TRIG #### [facility] [address] [place] [address] Service Support Representative: Sadi Gambino MD #### IOCAL #### [address] [address] Service Support Representative: Sha Nicholson MD Erythrocyte distribution width (RBC) [Ratio] 11.9 % Normal 11.8-14.4 [facility] Comment on above: Performed By: #### C BC, PT, CMPX, ALEJANDRO, LIP, MG, KAM, TRIG #### [facility] [address] [place] [address] Service Support Representative: Sadi Gambino MD #### IOCAL #### [address] [address] Service Support Representative: Sha Nicholson MD Hematocrit (Bld) [Volume fraction] 36.8 % Low 40.7-50.3 [facility] Comment on above: Performed By: #### C BC, PT, CMPX, ALEJANDRO, LIP, MG, KAM, TRIG #### [facility] [address] [place] [address] Service Support Representative: Sadi Gambino MD #### IOCAL #### [address] [address] Service Support Representative: Sha Nicholson MD Hemoglobin (Bld) [Mass/Vol] 13.2 g/dL Normal 13.0-17.0 [facility] Comment on above: Performed By: #### C BC, PT, CMPX, ALEJANDRO, LIP, MG, KAM, TRIG #### [facility] [address] [place] [address] Service Support Representative: Sadi Gambino MD #### IOCAL #### [address] [address] Service Support Representative: Sha Nicholson MD Immature granulocytes (Bld) [#/Vol] 0 % Normal 0 [facility] Comment on above: Performed By: #### C BC, PT, CMPX, ALEJANDRO, LIP, MG, KAM, TRIG #### [facility] [address] [place] [address] Service Support Representative: Sadi Gambino MD #### IOCAL #### [address] [address] Service Support Representative: Sha Nicholson MD Lymphocytes (Bld) [#/Vol] 1.44 10*3/uL Normal 1.10-3.70 [facility] Comment on above: Performed By: #### C BC, PT, CMPX, ALEJANDRO, LIP, MG, KAM, TRIG #### [facility] [address] [place] [address] Service Support Representative: Sadi Gambino MD #### IOCAL #### [address] [address] Service Support Representative: Sha Nicholson MD Lymphocytes/100 WBC (Bld) 14 % Low 24-43 [facility] Comment on above: Performed By: #### C BC, PT, CMPX, ALEJANDRO, LIP, MG, KAM, TRIG #### [facility] [address] [place] [address] Service Support Representative: Sadi Gambino MD #### IOCAL #### [address] [address] Service Support Representative: Sha Nicholson MD MCH (RBC) [Entitic mass] 30.2 pg Normal 25.2-33.5 [facility] Comment on above: Performed By: #### C BC, PT, CMPX, ALEJANDRO, LIP, MG, KAM, TRIG #### [facility] [address] [place] [address] Service Support Representative: Sadi Gambino MD #### IOCAL #### [address] [address] Service Support Representative: Sha Nicholson MD MCHC (RBC) [Mass/Vol] 35.9 g/dL High 28.4-34.8 [facility] Comment on above: Performed By: #### C BC, PT, CMPX, ALEJANDRO, LIP, MG, KAM, TRIG #### [facility] [address] [place] [address] Service Support Representative: Sadi Gambino MD #### IOCAL #### [address] [address] Service Support Representative: Sha Nicholson MD MCV (RBC) [Entitic vol] 84.2 fL Normal 82.6-102.9 [facility] Comment on above: Performed By: #### C BC, PT, CMPX, ALEJANDRO, LIP, MG, KAM, TRIG #### [facility] [address] [place] [address] Service Support Representative: Sadi Gambino MD #### IOCAL #### [address] [address] Service Support Representative: Sha Nicholson MD Monocytes (Bld) [#/Vol] 0.52 10*3/uL Normal 0.10-1.20 [facility] Comment on above: Performed By: #### C BC, PT, CMPX, ALEJANDRO, LIP, MG, KAM, TRIG #### [facility] [address] [place] [address] Service Support Representative: Sadi Gambino MD #### IOCAL #### [address] [address] Service Support Representative: Sha Nicholson MD Monocytes/100 WBC (Bld) 5 % Normal 3-12 [facility] Comment on above: Performed By: #### C BC, PT, CMPX, ALEJANDRO, LIP, MG, KAM, TRIG #### [facility] [address] [place] [address] Service Support Representative: Sadi Gambino MD #### IOCAL #### [address] [address] Service Support Representative: Sha Nicholson MD Neutrophil (Seg) 81 % High 36-65 [facility] Comment on above: Performed By: #### C BC, PT, CMPX, ALEJANDRO, LIP, MG, KAM, TRIG #### [facility] [address] [place] [address] Service Support Representative: Sadi Gambino MD #### IOCAL #### [address] [address] Service Support Representative: Sha Nicholson MD NRBC Automated 0.0 per [address] [facility] Comment on above: Performed By: #### C BC, PT, CMPX, ALEJANDRO, LIP, MG, KAM, TRIG #### [facility] [address] [place] [address] Service Support Representative: Sadi Gambino MD #### IOCAL #### [address] [address] Service Support Representative: Sha Nicholson MD Platelet mean volume (Bld) [Entitic vol] 10.9 fL Normal 8.1-13.5 [facility] Comment on above: Performed By: #### C BC, PT, CMPX, ALEJANDRO, LIP, MG, KAM, TRIG #### [facility] [address] [place] [address] Service Support Representative: Sadi Gambino MD #### IOCAL #### [address] [address] Service Support Representative: Sha Nicholson MD Platelets (Bld) [#/Vol] 256 10*3/uL Normal 138-453 [facility] Comment on above: Performed By: #### C BC, PT, CMPX, ALEJANDRO, LIP, MG, KAM, TRIG #### [facility] [address] [place] [address] Service Support Representative: Sadi Gambino MD #### IOCAL #### [address] [address] Service Support Representative: Sha Nicholson MD RBC (Bld) [#/Vol] 4.37 10*6/uL Normal 4.21-5.77 [facility] Comment on above: Performed By: #### C BC, PT, CMPX, ALEJANDRO, LIP, MG, KAM, TRIG #### [facility] [address] [place] [address] Service Support Representative: Sadi Gambino MD #### IOCAL #### [address] [address] Service Support Representative: Sha Nicholson MD WBC (Bld) [#/Vol] 10.5 10*3/uL Normal 3.5-11.3 [facility] Comment on above: Performed By: #### C BC, PT, CMPX, ALEJANDRO, LIP, MG, KAM, TRIG #### [facility] [address] [place] [address] Service Support Representative: Sadi Gambino MD #### IOCAL #### [address] [address] Service Support Representative: Sha Nicholson MD Auto Diff Performed NOT REPORTED Normal [facility] Comment on above: Performed By: #### C BC, PT, CMPX, ALEJANDRO, LIP, MG, KAM, TRIG #### [facility] [address] [place] [address] Service Support Representative: Sadi Gambino MD #### IOCAL #### [address] [address] Service Support Representative: Sha Nicholson MD Platelets (Bld) [#/Vol] NOT REPORTED Normal [facility] Comment on above: Performed By: #### C BC, PT, CMPX, ALEJANDRO, LIP, MG, KAM, TRIG #### [facility] [address] [place] [address] Service Support Representative: Sadi Gambino MD #### IOCAL #### [address] [address] Service Support Representative: Sha Nicholson MD RBC morphology finding Nom (Bld) NOT REPORTED Normal [facility] Comment on above: Performed By: #### C BC, PT, CMPX, ALEJANDRO, LIP, MG, KAM, TRIG #### [facility] [address] [place] [address] Service Support Representative: Sadi Gambino MD #### IOCAL #### [address] [phone] Service Support Representative: Sha Nicholson MD WBC Morphology NOT REPORTED Normal [facility] Comment on above: Performed By: #### C BC, PT, CMPX, ALEJANDRO, LIP, MG, KAM, TRIG #### [facility] [address] [place] [address] Service Support Representative: Sadi Gambino MD #### IOCAL #### [address] [phone] Service Support Representative: Sha Nicholson MD Magnesiumon 06-12-2019 Magnesium [Mass/Vol] 1.9 mg/dL Normal 1.6-2.6 [facility] Comment on above: Performed By: #### C BC, PT, CMPX, ALEJANDRO, LIP, MG, KAM, TRIG #### [facility] [address] [place] [address] Service Support Representative: Sadi Gambino MD #### IOCAL #### [address] [phone] Service Support Representative: Sha Nicholson MD Magnesium [Mass/Vol] 1.9 mg/dL 1.6 - 2 .6 mg/dL [place], [place] Surgical Pathologyon 019 Surgical Pathology (NOTE) [id number] [facility] CONSULTING PATHOLOGISTS [facility] ANATOMIC PATHOLOGY [address] [place] [phone] SURGICAL PATHOLOGY CONSULTATION Patient Name: JOAQUIN MATHEWTyrone Emery [facility] Rec: [id number] Path Number: [id number] Collected: 06/12/2019 Received: 06/13/2019 Reported: 06/14/2019 09:23 [...] tm Microscopic Description Microscopic examination performed. Normal [facility] Comment on above: Performed By: #### C BC, PT, CMPX, ALEJANDRO, LIP, MG, KAM, TRIG #### [facility] [address] [place] [address] Service Support Representative: Sadi Gambino MD #### IOCAL #### [address] [address] Service Support Representative: Sha Nicholson MD Amylaseon 06-11-2019 Amylase [Catalytic activity/Vol] 88 U/L Normal 28-100 [facility] Comment on above: Performed By: #### C BC, PT, CMPX, ALEJANDRO, LIP, MG, KAM, TRIG #### [facility] [address] [place] [address] Service Support Representative: Sadi Gambino MD #### IOCAL #### [address] [id number] Service Support Representative: Sha Nicholson MD Amylase [Catalytic activity/Vol] 88 U/L 28 - 100 U/L [place], [place] Basic Metabolic Panelon - Anion gap [Moles/Vol] 12 mmol/L 9 - 17 mmol/L [place] Bun/Cre Ratio 11 [place] Calcium [Mass/Vol] 8.8 mg/dL 8.6 - 10. 4 mg/dL [place] Chloride [Moles/Vol] 104 mmol/L 98 - 10 7 mmol/L [place] CO2 [Moles/Vol] 24 mmol/L 20 - 31 mmol/L [place] Creatinine [Mass/Vol] 0.46 mg/dL Low 0.7 - 1.2 mg/dL [place] GFR >60 >60 mL/min [place], [place] GFR Non- >60 >60 mL/min [place] GFR/1.73 sq M predicted among non-blacks MDRD (S/P/Bld) [Vol rate/Area] NOT REPORTED [place] GFR/1.73 sq M predicted among non-blacks MDRD (S/P/Bld) [Vol rate/Area] [place] Comment on above: Average GFR for 30-3 9 years old: 107 mL/min/1.73sq m Chronic Kidney Disease: <60 mL/min/1.73sq m Kidney failure: <15 mL/min/1.73sq m eGFR calculated using average adult body mass. Additional eGFR calculator available at: http://www.[employer]/multiple_crcl_2012.htm Glucose [Mass/Vol] 92 mg/dL 70 - 99 mg/dL [place], [place] Potassium [Moles/Vol] 3.8 mmol/L 3.7 - 5.3 mmol/L [place] Sodium [Moles/Vol] 140 mmol/L 135 - 144 mmol/L [place] Urea nitrogen [Mass/Vol] 5 mg/dL Low 6 - 20 mg/dL [place] Basic Metabolic Profon 06-11 (cont.) Normal [facility] Comment on above: Result Comment: Aver age GFR for 30-39 years old: 107 mL/min/1.73sq m Chronic Kidney Disease: <60 mL/min/1.73sq m Kidney failure: <15 mL/min/1.73sq m eGFR calculated using average adult body mass. Additional eGFR calculator available at: http://www.[employer]/multiple_crcl_2012.htm Performed By: #### C BC, PT, CMPX, ALEJANDRO, LIP, MG, KAM, TRIG #### [facility] [address] [place] [address] Service Support Representative: Sadi Gambino MD #### IOCAL #### [address] [address] Service Support Representative: Sha Nicholson MD Anion gap [Moles/Vol] 12 mmol/L Normal 9-17 [facility] Comment on above: Performed By: #### C BC, PT, CMPX, ALEJANDRO, LIP, MG, KAM, TRIG #### [facility] [address] [place] [address] Service Support Representative: Sadi Gambino MD #### IOCAL #### [address] [address] Service Support Representative: Sha Nicholson MD BUN/CRE Ratio 11 Normal 9-20 [facility] Comment on above: Performed By: #### C BC, PT, CMPX, ALEJANDRO, LIP, MG, KAM, TRIG #### [facility] [address] [place] [address] Service Support Representative: Sadi Gambino MD #### IOCAL #### [address] [address] Service Support Representative: Sha Nicholson MD Calcium [Mass/Vol] 8.8 mg/dL Normal 8.6-10.4 [facility] Comment on above: Performed By: #### C BC, PT, CMPX, ALEJANDRO, LIP, MG, KAM, TRIG #### [facility] [place] [address] Service Support Representative: Sadi Gambino MD #### IOCAL #### [address] [address] Service Support Representative: Sha Nicholson MD Chloride [Moles/Vol] 104 mmol/L Normal 98-107 [facility] Comment on above: Performed By: #### C BC, PT, CMPX, ALEJANDRO, LIP, MG, KAM, TRIG #### [facility] [address] [place] [address] Service Support Representative: Sadi Gambino MD #### IOCAL #### [address] [address] Service Support Representative: Sha Nicholson MD CO2 [Moles/Vol] 24 mmol/L Normal 20-31 [facility] Comment on above: Performed By: #### C BC, PT, CMPX, ALEJANDRO, LIP, MG, KAM, TRIG #### [facility] [address] [place] [address] Service Support Representative: Sadi Gambino MD #### IOCAL #### [address] [address] Service Support Representative: Sha Nicholson MD Creatinine [Mass/Vol] 0.46 mg/dL Low 0.70-1.20 [facility] Comment on above: Performed By: #### C BC, PT, CMPX, ALEJANDRO, LIP, MG, KAM, TRIG #### [facility] [address] [place] [address] Service Support Representative: Sadi Gambino MD #### IOCAL #### [address] [address] Service Support Representative: Sha Nicholson MD GFR, Amer >60 Normal >60 [facility] Comment on above: Performed By: #### C BC, PT, CMPX, ALEJANDRO, LIP, MG, KAM, TRIG #### [facility] [address] [place] [address] Service Support Representative: Sadi Gambino MD #### IOCAL #### [address] [address] Service Support Representative: Sha Nicholson MD GFR,non Amer >60 Normal >60 [facility] Comment on above: Performed By: #### C BC, PT, CMPX, ALEJANDRO, LIP, MG, KAM, TRIG #### [facility] [address] [place] [address] Service Support Representative: Sadi Gambino MD #### IOCAL #### [address] [address] Service Support Representative: Sha Nicholson MD Glucose [Mass/Vol] 92 mg/dL Normal 70-99 [facility] Comment on above: Performed By: #### C BC, PT, CMPX, ALEJANDRO, LIP, MG, KAM, TRIG #### [facility] [address] [place] [address] Service Support Representative: Sadi Gambino MD #### IOCAL #### [address] [address] Service Support Representative: Sha Nicholson MD Potassium [Moles/Vol] 3.8 mmol/L Normal 3.7-5.3 [facility] Comment on above: Performed By: #### C BC, PT, CMPX, ALEJANDRO, LIP, MG, KAM, TRIG #### [facility] [address] [place] [address] Service Support Representative: Sadi Gambino MD #### IOCAL #### [address] [address] Service Support Representative: Sha Nicholson MD Sodium [Moles/Vol] 140 mmol/L Normal 135-144 [facility] Comment on above: Performed By: #### C BC, PT, CMPX, ALEJANDRO, LIP, MG, KAM, TRIG #### [facility] [place] [address] Service Support Representative: Sadi Gambino MD #### IOCAL #### [address] [address] Service Support Representative: Sha Nicholson MD Urea nitrogen [Mass/Vol] 5 mg/dL Low 6-20 [facility] Comment on above: Performed By: #### C BC, PT, CMPX, ALEJANDRO, LIP, MG, KAM, TRIG #### [facility] [address] [place] [address] Service Support Representative: Sadi Gambino MD #### IOCAL #### [address] [address] Service Support Representative: Sha Nicholson MD Staging: NOT REPORTED Normal [facility] Comment on above: Performed By: #### C BC, PT, CMPX, ALEJANDRO, LIP, MG, KAM, TRIG #### [facility] [address] [place] [address] Service Support Representative: Sadi Gambino MD #### IOCAL #### [address] [address] Service Support Representative: Sha Nicholson MD CBC Auto Differentialon Basophils (Bld) [#/Vol] 0.06 10*3/uL [place] Basophils/100 WBC (Bld) 1 % 0 - 2 % [place] Differential Type NOT REPORTED [place] Eosinophils (Bld) [#/Vol] 0.42 10*3/uL [place] Eosinophils/100 WBC (Bld) 4 % 1 - 4 % [place] Erythrocyte distribution width (RBC) [Ratio] 12.1 % 11.8 - 14.4 % [place] Hematocrit (Bld) [Volume fraction] 36.3 % Low 40.7 - 50.3 % [place] Hemoglobin (Bld) [Mass/Vol] 12.8 g/dL Low 13 - 17 g/dL [place] Immature granulocytes (Bld) [#/Vol] 0 % 0 [place] Immature granulocytes (Bld) [#/Vol] 0.03 10*3/uL [place] Interpretation and review of laboratory results Abnormal [place] Lymphocytes (Bld) [#/Vol] 2.30 10*3/uL [place] Lymphocytes/100 WBC (Bld) 24 % 24 - 43 % [place] MCH (RBC) [Entitic mass] 30.5 pg 25.2 - 33.5 pg [place] MCHC (RBC) [Mass/Vol] 35.3 g/dL High 28.4 - 34.8 g/dL [place] MCV (RBC) [Entitic vol] 86.4 fL 82.6 - 102.9 fL [place] Monocytes (Bld) [#/Vol] 0.81 10*3/uL [place] Monocytes/100 WBC (Bld) 8 % 3 - 12 % [place] Platelet mean volume (Bld) [Entitic vol] 10.6 fL 8.1 - 13.5 fL [place] Platelets (Bld) [#/Vol] NOT REPORTED [place] Platelets (Bld) [#/Vol] 215 10*3/uL [place] RBC (Bld) [#/Vol] 4.20 10*6/uL Low 4.21 - 5.7 7 m/uL [place] RBC morphology finding Nom (Bld) NOT REPORTED [place] Segmented neutrophils/100 WBC (Bld) 62 % 36 - 65 % [place] Segs Absolute 5.98 [place] WBC (Bld) [#/Vol] 0.0 10*3/uL 0.0 per 10 0 WBC [place] WBC (Bld) [#/Vol] 9.6 10*3/uL [place] WBC Morphology NOT REPORTED [place] CBC with Diffon 06-11-2019 Abs. Basophil 0.06 k/uL Normal 0.00-0.20 [facility] Comment on above: Performed By: #### C BC, PT, CMPX, ALEJANDRO, LIP, MG, KAM, TRIG #### [facility] [address] [place] [address] Service Support Representative: Sadi Gambino MD #### IOCAL #### [address] [address] Service Support Representative: Sha Nicholson MD Abs.Imm.Granulocyte 0.03 k/uL Normal 0.00-0.30 [facility] Comment on above: Performed By: #### C BC, PT, CMPX, ALEJANDRO, LIP, MG, KAM, TRIG #### [facility] [address] [place] [address] Service Support Representative: Sadi Gambino MD #### IOCAL #### [address] [address] Service Support Representative: Sha Nicholson MD Abs.Neutrophil (Seg) 5.98 k/uL Normal 1.50-8.10 [facility] Comment on above: Performed By: #### C BC, PT, CMPX, ALEJANDRO, LIP, MG, KAM, TRIG #### [facility] [address] [place] [address] Service Support Representative: Sadi Gambino MD #### IOCAL #### [address] [address] Service Support Representative: Sha Nicholson MD Basophils/100 WBC (Bld) 1 % Normal 0-2 [facility] Comment on above: Performed By: #### C BC, PT, CMPX, ALEJANDRO, LIP, MG, KAM, TRIG #### [facility] [address] [place] [address] Service Support Representative: Sadi Gambino MD #### IOCAL #### [address] [phone] Service Support Representative: Sha Nicholson MD Eosinophils (Bld) [#/Vol] 0.42 10*3/uL Normal 0.00-0.44 [facility] Comment on above: Performed By: #### C BC, PT, CMPX, ALEJANDRO, LIP, MG, KAM, TRIG #### [facility] [address] [place] [address] Service Support Representative: Sadi Gambino MD #### IOCAL #### [address] [address] Service Support Representative: Sha Nicholson MD Eosinophils/100 WBC (Bld) 4 % Normal 1-4 [facility] Comment on above: Performed By: #### C BC, PT, CMPX, ALEJANDRO, LIP, MG, KAM, TRIG #### [facility] [address] [place] [address] Service Support Representative: Sadi Gambino MD #### IOCAL #### [address] [address] Service Support Representative: Sha Nicholson MD Erythrocyte distribution width (RBC) [Ratio] 12.1 % Normal 11.8-14.4 [facility] Comment on above: Performed By: #### C BC, PT, CMPX, ALEJANDRO, LIP, MG, KAM, TRIG #### [facility] [address] [place] [address] Service Support Representative: Sadi Gambino MD #### IOCAL #### [address] [address] Service Support Representative: Sha Nicholson MD Hematocrit (Bld) [Volume fraction] 36.3 % Low 40.7-50.3 [facility] Comment on above: Performed By: #### C BC, PT, CMPX, ALEJANDRO, LIP, MG, KAM, TRIG #### [facility] [address] [place] [address] Service Support Representative: Sadi Gambino MD #### IOCAL #### [address] [phone] Service Support Representative: Sha Nicholson MD Hemoglobin (Bld) [Mass/Vol] 12.8 g/dL Low 13.0-17.0 [facility] Comment on above: Performed By: #### C BC, PT, CMPX, ALEJANDRO, LIP, MG, KAM, TRIG #### [facility] [address] [place] [address] Service Support Representative: Sadi Gambino MD #### IOCAL #### [address] [address] Service Support Representative: Sha Nicholson MD Immature granulocytes (Bld) [#/Vol] 0 % Normal 0 [facility] Comment on above: Performed By: #### C BC, PT, CMPX, ALEJANDRO, LIP, MG, KAM, TRIG #### [facility] [address] [place] [address] Service Support Representative: Sadi Gambino MD #### IOCAL #### [address] [address] Service Support Representative: Sha Nicholson MD Lymphocytes (Bld) [#/Vol] 2.30 10*3/uL Normal 1.10-3.70 [facility] Comment on above: Performed By: #### C BC, PT, CMPX, ALEJANDRO, LIP, MG, KAM, TRIG #### [facility] [place] [address] Service Support Representative: Sadi Gambino MD #### IOCAL #### [address] [address] Service Support Representative: Sha Nicholson MD Lymphocytes/100 WBC (Bld) 24 % Normal 24-43 [facility] Comment on above: Performed By: #### C BC, PT, CMPX, ALEJANDRO, LIP, MG, KAM, TRIG #### [facility] [address] [place] [address] Service Support Representative: Sadi Gambino MD #### IOCAL #### [place] [address] Service Support Representative: Sha Nicholson MD MCH (RBC) [Entitic mass] 30.5 pg Normal 25.2-33.5 [facility] Comment on above: Performed By: #### C BC, PT, CMPX, ALEJANDRO, LIP, MG, KAM, TRIG #### [facility] [address] [place] [address] Service Support Representative: Sadi Gambino MD #### IOCAL #### [address] [address] Service Support Representative: Sha Nicholson MD MCHC (RBC) [Mass/Vol] 35.3 g/dL High 28.4-34.8 [facility] Comment on above: Performed By: #### C BC, PT, CMPX, ALEJANDRO, LIP, MG, KAM, TRIG #### [facility] [address] [place] [address] Service Support Representative: Sadi Gambino MD #### IOCAL #### [address] [address] Service Support Representative: Sha Nicholson MD MCV (RBC) [Entitic vol] 86.4 fL Normal 82.6-102.9 [facility] Comment on above: Performed By: #### C BC, PT, CMPX, ALEJANDRO, LIP, MG, KAM, TRIG #### [facility] [address] [place] [address] Service Support Representative: Sadi Gambino MD #### IOCAL #### [address] [address] Service Support Representative: Sha Nicholson MD Monocytes (Bld) [#/Vol] 0.81 10*3/uL Normal 0.10-1.20 [facility] Comment on above: Performed By: #### C BC, PT, CMPX, ALEJANDRO, LIP, MG, KAM, TRIG #### [facility] [address] [place] [address] Service Support Representative: Sadi Gambino MD #### IOCAL #### [address] [address] Service Support Representative: Sha Nicholson MD Monocytes/100 WBC (Bld) 8 % Normal 3-12 [facility] Comment on above: Performed By: #### C BC, PT, CMPX, ALEJANDRO, LIP, MG, KAM, TRIG #### [facility] [address] [place] [address] Service Support Representative: Sadi Gambino MD #### IOCAL #### [address] [address] Service Support Representative: Sha Nicholson MD Neutrophil (Seg) 62 % Normal 36-65 [facility] Comment on above: Performed By: #### C BC, PT, CMPX, ALEJANDRO, LIP, MG, KAM, TRIG #### [facility] [place] [address] Service Support Representative: Sadi Gambino MD #### IOCAL #### [address] [address] Service Support Representative: Sha Nicholson MD NRBC Automated 0.0 per [address] [facility] Comment on above: Performed By: #### C BC, PT, CMPX, ALEJANDRO, LIP, MG, KAM, TRIG #### [facility] [address] [place] [address] Service Support Representative: Sadi Gambino MD #### IOCAL #### [address] [address] Service Support Representative: Sha Nicholson MD Platelet mean volume (Bld) [Entitic vol] 10.6 fL Normal 8.1-13.5 [facility] Comment on above: Performed By: #### C BC, PT, CMPX, ALEJANDRO, LIP, MG, KAM, TRIG #### [facility] [address] [place] [address] Service Support Representative: Sadi Gambino MD #### IOCAL #### [address] [address] Service Support Representative: Sha Nicholson MD Platelets (Bld) [#/Vol] 215 10*3/uL Normal 138-453 [facility] Comment on above: Performed By: #### C BC, PT, CMPX, ALEJANDRO, LIP, MG, KAM, TRIG #### [facility] [address] [place] [address] Service Support Representative: Sadi Gambino MD #### IOCAL #### [address] [address] Service Support Representative: Sha Nicholson MD RBC (Bld) [#/Vol] 4.20 10*6/uL Low 4.21-5.77 [facility] Comment on above: Performed By: #### C BC, PT, CMPX, ALEJANDRO, LIP, MG, KAM, TRIG #### [facility] [address] [place] [address] Service Support Representative: Sadi Gambino MD #### IOCAL #### [address] [address] Service Support Representative: Sha Nicholson MD WBC (Bld) [#/Vol] 9.6 10*3/uL Normal 3.5-11.3 [facility] Comment on above: Performed By: #### C BC, PT, CMPX, ALEJANDRO, LIP, MG, KAM, TRIG #### [facility] [address] [place] [address] Service Support Representative: Sadi Gambino MD #### IOCAL #### [address] [address] Service Support Representative: Sha Nicholson MD Auto Diff Performed NOT REPORTED Normal [facility] Comment on above: Performed By: #### C BC, PT, CMPX, ALEJANDRO, LIP, MG, KAM, TRIG #### [facility] [address] [place] [address] Service Support Representative: Sadi Gambino MD #### IOCAL #### [address] [address] Service Support Representative: Sha Nicholson MD Platelets (Bld) [#/Vol] NOT REPORTED Normal [facility] Comment on above: Performed By: #### C BC, PT, CMPX, ALEJANDRO, LIP, MG, KAM, TRIG #### [facility] [address] [place] [address] Service Support Representative: Sadi Gambino MD #### IOCAL #### [address] [address] Service Support Representative: Sha Nicholson MD RBC morphology finding Nom (Bld) NOT REPORTED Normal [facility] Comment on above: Performed By: #### C BC, PT, CMPX, ALEJANDRO, LIP, MG, KAM, TRIG #### [facility] [address] [place] [address] Service Support Representative: Sadi Gambino MD #### IOCAL #### [address] [address] Service Support Representative: Sha Nicholson MD WBC Morphology NOT REPORTED Normal [facility] Comment on above: Performed By: #### C BC, PT, CMPX, ALEJANDRO, LIP, MG, KAM, TRIG #### [facility] [address] [place] [address] Service Support Representative: Sadi Gambino MD #### IOCAL #### [address] [address] Service Support Representative: Sha Nicholson MD [place] ERCP BILIARY AND PANCREAT IC S AND [...] Stan Samson MD 06/11/19 Final result Normal [facility] ERCP BILIARY AND PANCREAT IC S&Ion 06-11-2019 Jasen, M[facility]pn Incoming Radiant Results From [facility] - 06/11/2019 5:18 PM EST EXAMINATION: 10 [...] additional details. IMPRESSION: Intraoperative fluoroscopy for ERCP [place] EXAMINATION: 10 SPOT IMAGES FROM AN [...] correlate with procedure report for additional details. [place] Intraoperative fluoroscopy for ERCP [place] FLUORO FOR SURGICAL PROCEDUR ESon 06-11-2019 FLUORO FOR SURGICAL PROCEDURES Radiology exam is complete. No Radiologist dictation. Please follow up with ordering provider. Final result Normal [facility] Radiology exam is complete. No Radiologist dictation. Please follow up with ordering provider. [place] Lipaseon 06-11-2019 Lipase [Catalytic activity/Vol] 108 U/L High 13-60 [facility] Comment on above: Performed By: #### C BC, PT, CMPX, ALEJANDRO, LIP, MG, KAM, TRIG #### [facility] [address] [place] [address] Service Support Representative: Sadi Gambino MD #### IOCAL #### [facility] [address] [place] [address] Service Support Representative: Sha Nicholson MD Lipase [Catalytic activity/Vol] 108 U/L High 13 - 60 U/L [place] Lipid Panelon 06-11-2019 Cholesterol [Mass/Vol] 125 mg/dL <200 [place] Comment on above: Cholesterol Guidelines: <200 Desirable 200-240 Borderline >240 Undesirable Cholesterol in HDL [Mass/Vol] 20 mg/dL Low >40 [place] Comment on above: HDL Guidelines: <40 Undesirable 40-59 Borderline >59 Desirable Cholesterol in LDL [Mass/Vol] 82 mg/dL 0 - 130 mg/dL [place] Comment on above: LDL Guidelines: <100 Desirable 100-129 Near to/above Desirable 130-159 Borderline >159 Undesirable Direct (measured) LDL and calculated LDL are not interchangeable tests. Cholesterol in VLDL [Mass/Vol] NOT REPORTED 1 - 30 mg/dL [place] Cholesterol.total/Bailey sterol in HDL [Mass ratio] 6.3 {ratio} High <5 [place] Triglyceride [Mass/Vol] 117 mg/dL <150 [place], [place] Comment on above: Triglyceride Guidelines: <150 Desirable 150-199 Borderline 200-499 High >499 Very high Based on AHA Guidelines for fasting triglyceride, May 2012. Lipid Profileon 06-11-2019 Cholesterol [Mass/Vol] 125 mg/dL Normal <200 [facility] Comment on above: Result Comment: Cholesterol Guidelines: <200 Desirable 200-240 Borderline >240 Undesirable Performed By: #### C BC, PT, CMPX, ALEJANDRO, LIP, MG, KAM, TRIG #### [facility] [address] [place] [address] Service Support Representative: Sadi Gambino MD #### IOCAL #### [address] [address] Service Support Representative: Sha Nicholson MD Cholesterol in HDL [Mass/Vol] 20 mg/dL Low >40 [facility] Comment on above: Result Comment: HDL Guidelines: <40 Undesirable 40-59 Borderline >59 Desirable Performed By: #### C BC, PT, CMPX, ALEJANDRO, LIP, MG, KAM, TRIG #### [facility] [address] [place] [address] Service Support Representative: Sadi Gambino MD #### IOCAL #### [address] [address] Service Support Representative: Sha Nicholson MD Cholesterol in LDL [Mass/Vol] 82 mg/dL Normal 0-130 [facility] Comment on above: Result Comment: LDL Guidelines: <100 Desirable 100-129 Near to/above Desirable 130-159 Borderline >159 Undesirable Direct (measured) LDL and calculated LDL are not interchangeable tests. Performed By: #### C BC, PT, CMPX, ALEJANDRO, LIP, MG, KAM, TRIG #### [facility] [place] [address] Service Support Representative: Sadi Gambino MD #### IOCAL #### [address] [address] Service Support Representative: Sha Nicholson MD Cholesterol.total/Bailey sterol in HDL [Mass ratio] 6.3 {ratio} High <5 [facility] Comment on above: Performed By: #### C BC, PT, CMPX, ALEJANDRO, LIP, MG, KAM, TRIG #### [facility] [address] [place] [address] Service Support Representative: Sadi Gambino MD #### IOCAL #### [address] [address] Service Support Representative: Sha Nicholson MD Triglyceride [Mass/Vol] 117 mg/dL Normal <150 [facility] Comment on above: Result Comment: Triglyceride Guidelines: <150 Desirable 150-199 Borderline 200-499 High >499 Very high Based on AHA Guidelines for fasting triglyceride, May 2012. Performed By: #### C BC, PT, CMPX, ALEJANDRO, LIP, MG, KAM, TRIG #### [facility] [address] [place] [address] Service Support Representative: Sadi Gambino MD #### IOCAL #### [address] [address] Service Support Representative: Sha Nicholson MD Cholesterol in VLDL [Mass/Vol] NOT REPORTED Normal 1-30 [facility] Comment on above: Performed By: #### C BC, PT, CMPX, ALEJANDRO, LIP, MG, KAM, TRIG #### [facility] [address] [place] [address] Service Support Representative: Sadi Gambino MD #### IOCAL #### [address] [address] Service Support Representative: Sha Nicholson MD Magnesiumon 06-11-2019 Magnesium [Mass/Vol] 1.9 mg/dL Normal 1.6-2.6 [facility] [facility] Comment on above: Performed By: #### C BC, PT, CMPX, ALEJANDRO, LIP, MG, KAM, TRIG #### [facility] [address] [place], [place] [phone] Service Support Representative: Sadi Gambino MD #### IOCAL #### [id number] [place], [place] [phone] Service Support Representative: Sha Nicholson MD Magnesium [Mass/Vol] 1.9 mg/dL 1.6 - 2 .6 mg/dL [place], [place] Otheron 06-11-2019 Interpretation and review of laboratory results Abnormal [place], [place] Amylaseon 06-10-2019 Amylase [Catalytic activity/Vol] 188 U/L High 28-100 [facility] Comment on above: Performed By: #### C BC, PT, CMPX, ALEJANDRO, LIP, MG, KAM, TRIG #### [facility] [address] [place] [address] [phone] Service Support Representative: Sadi Gambino MD #### IOCAL #### [address] [phone] Service Support Representative: Sha Nicholson MD Amylase [Catalytic activity/Vol] 188 U/L High 28 - 100 U/L [place] CBC Auto Differentialon Basophils (Bld) [#/Vol] 0.06 10*3/uL [place] Basophils/100 WBC (Bld) 1 % 0 - 2 % M [place], [place] Differential Type NOT REPORTED [place] Eosinophils (Bld) [#/Vol] 0.29 10*3/uL [place] Eosinophils/100 WBC (Bld) 3 % 1 - 4 % [place] Erythrocyte distribution width (RBC) [Ratio] 12.1 % 11.8 - 14.4 % [place] Hematocrit (Bld) [Volume fraction] 37.1 % Low 40.7 - 50.3 % [place] Hemoglobin (Bld) [Mass/Vol] 13.0 g/dL 13 - 17 g/dL [place] Immature granulocytes (Bld) [#/Vol] 0.03 10*3/uL [place] Immature granulocytes (Bld) [#/Vol] 0 % 0 [place] Interpretation and review of laboratory results Abnormal [place] Lymphocytes (Bld) [#/Vol] 2.29 10*3/uL [place] Lymphocytes/100 WBC (Bld) 25 % 24 - 43 % [place] MCH (RBC) [Entitic mass] 30.8 pg 25.2 - 33.5 pg [place] MCHC (RBC) [Mass/Vol] 35.0 g/dL High 28.4 - 34.8 g/dL [place] MCV (RBC) [Entitic vol] 87.9 fL 82.6 - 102.9 fL [place] Monocytes (Bld) [#/Vol] 0.76 10*3/uL [place] Monocytes/100 WBC (Bld) 8 % 3 - 12 % [place] Platelet mean volume (Bld) [Entitic vol] 10.8 fL 8.1 - 13.5 fL [place] Platelets (Bld) [#/Vol] NOT REPORTED [place] Platelets (Bld) [#/Vol] 208 10*3/uL [place] RBC (Bld) [#/Vol] 4.22 10*6/uL 4.21 - 5.7 7 m/uL [place] RBC morphology finding Nom (Bld) NOT REPORTED [place] Segmented neutrophils/100 WBC (Bld) 62 % 36 - 65 % [place] Segs Absolute 5.62 [place] WBC (Bld) [#/Vol] 0.0 10*3/uL 0.0 per 10 0 WBC [place] WBC (Bld) [#/Vol] 9.1 10*3/uL [place] WBC Morphology NOT REPORTED [place] CBC with Diffon 06-10-2019 Abs. Basophil 0.06 k/uL Normal 0.00-0.20 [facility] Comment on above: Performed By: #### C BC, PT, CMPX, ALEJANDRO, LIP, MG, KAM, TRIG #### [facility] [address] [place] [address] Service Support Representative: Sadi Gambino MD #### IOCAL #### [address] [address] Service Support Representative: Sha Nicholson MD Abs.Imm.Granulocyte 0.03 k/uL Normal 0.00-0.30 [facility] Comment on above: Performed By: #### C BC, PT, CMPX, ALEJANDRO, LIP, MG, KAM, TRIG #### [facility] [address] [place] [address] Service Support Representative: Sadi Gambino MD #### IOCAL #### [address] [address] Service Support Representative: Sha Nicholson MD Abs.Neutrophil (Seg) 5.62 k/uL Normal 1.50-8.10 [facility] Comment on above: Performed By: #### C BC, PT, CMPX, ALEJANDRO, LIP, MG, KAM, TRIG #### [facility] [address] [place] [address] Service Support Representative: Sadi Gambino MD #### IOCAL #### [address] [address] Service Support Representative: Sha Nicholson MD Basophils/100 WBC (Bld) 1 % Normal 0-2 [facility] Comment on above: Performed By: #### C BC, PT, CMPX, ALEJANDRO, LIP, MG, KAM, TRIG #### [facility] [address] [place] [address] Service Support Representative: Sadi Gambino MD #### IOCAL #### [address] [address] Service Support Representative: Sha Nicholson MD Eosinophils (Bld) [#/Vol] 0.29 10*3/uL Normal 0.00-0.44 [facility] Comment on above: Performed By: #### C BC, PT, CMPX, ALEJANDRO, LIP, MG, KAM, TRIG #### [facility] [address] [place] [address] Service Support Representative: Sadi Gambino MD #### IOCAL #### [address] [address] Service Support Representative: Sha Nicholson MD Eosinophils/100 WBC (Bld) 3 % Normal 1-4 [facility] Comment on above: Performed By: #### C BC, PT, CMPX, ALEJANDRO, LIP, MG, KAM, TRIG #### [facility] [address] [place] [address] Service Support Representative: Sadi Gambino MD #### IOCAL #### [address] [address] Service Support Representative: Sha Nicholson MD Immature granulocytes (Bld) [#/Vol] 0 % Normal 0 [facility] Comment on above: Performed By: #### C BC, PT, CMPX, ALEJANDRO, LIP, MG, KAM, TRIG #### [facility] [address] [place] [address] Service Support Representative: Sadi Gambino MD #### IOCAL #### [address] [address] Service Support Representative: Sha Nicholson MD Lymphocytes (Bld) [#/Vol] 2.29 10*3/uL Normal 1.10-3.70 [facility] Comment on above: Performed By: #### C BC, PT, CMPX, ALEJANDRO, LIP, MG, KAM, TRIG #### [facility] [address] [place] [address] Service Support Representative: Sadi Gambino MD #### IOCAL #### [address] [address] Service Support Representative: Sha Nicholson MD Lymphocytes/100 WBC (Bld) 25 % Normal 24-43 [facility] Comment on above: Performed By: #### C BC, PT, CMPX, ALEJANDRO, LIP, MG, KAM, TRIG #### [facility] [address] [place] [address] Service Support Representative: Sadi Gambino MD #### IOCAL #### [address] [address] Service Support Representative: Sha Nicholson MD Monocytes (Bld) [#/Vol] 0.76 10*3/uL Normal 0.10-1.20 [facility] Comment on above: Performed By: #### C BC, PT, CMPX, ALEJANDRO, LIP, MG, KAM, TRIG #### [facility] [address] [place] [address] Service Support Representative: Sadi Gambino MD #### IOCAL #### [address] [address] Service Support Representative: Sha Nicholson MD Monocytes/100 WBC (Bld) 8 % Normal 3-12 [facility] Comment on above: Performed By: #### C BC, PT, CMPX, ALEJANDRO, LIP, MG, KAM, TRIG #### [facility] [address] [place] [address] Service Support Representative: Sadi Gambino MD #### IOCAL #### [address] [address] Service Support Representative: Sha Nicholson MD Neutrophil (Seg) 62 % Normal 36-65 [facility] Comment on above: Performed By: #### C BC, PT, CMPX, ALEJANDRO, LIP, MG, KAM, TRIG #### [facility] [place] [address] Service Support Representative: Sadi Gambino MD #### IOCAL #### [address] [address] Service Support Representative: hSa Nicholson MD Erythrocyte distribution width (RBC) [Ratio] 12.1 % Normal 11.8-14.4 [facility] Comment on above: Performed By: #### C BC, PT, CMPX, ALEJANDRO, LIP, MG, KAM, TRIG #### [facility] [address] [place] [address] Service Support Representative: Sadi Gambino MD #### IOCAL #### [address] [address] Service Support Representative: Sha Nicholson MD Hematocrit (Bld) [Volume fraction] 37.1 % Low 40.7-50.3 [facility] Comment on above: Performed By: #### C BC, PT, CMPX, ALEJANDRO, LIP, MG, KAM, TRIG #### [facility] [address] [place] [address] Service Support Representative: Sadi Gambino MD #### IOCAL #### [address] [address] Service Support Representative: Sha Nicholson MD Hemoglobin (Bld) [Mass/Vol] 13.0 g/dL Normal 13.0-17.0 [facility] Comment on above: Performed By: #### C BC, PT, CMPX, ALEJANDRO, LIP, MG, KAM, TRIG #### [facility] [place] [address] Service Support Representative: Sadi Gambino MD #### IOCAL #### [address] [address] Service Support Representative: Sha Nicholson MD MCH (RBC) [Entitic mass] 30.8 pg Normal 25.2-33.5 [facility] Comment on above: Performed By: #### C BC, PT, CMPX, ALEJANDRO, LIP, MG, KAM, TRIG #### [facility] [address] [place] [address] Service Support Representative: Sadi Gambino MD #### IOCAL #### [address] [address] Service Support Representative: Sha Nicholson MD MCHC (RBC) [Mass/Vol] 35.0 g/dL High 28.4-34.8 [facility] Comment on above: Performed By: #### C BC, PT, CMPX, ALEJANDRO, LIP, MG, KAM, TRIG #### [facility] [address] [place] [address] Service Support Representative: Sadi Gambino MD #### IOCAL #### [address] [address] Service Support Representative: Sha Nicholson MD MCV (RBC) [Entitic vol] 87.9 fL Normal 82.6-102.9 [facility] Comment on above: Performed By: #### C BC, PT, CMPX, ALEJANDRO, LIP, MG, KAM, TRIG #### [facility] [address] [place] [address] Service Support Representative: Sadi Gambino MD #### IOCAL #### [address] [address] Service Support Representative: Sha Nicholson MD NRBC Automated 0.0 per [address] [facility] Comment on above: Performed By: #### C BC, PT, CMPX, ALEJANDRO, LIP, MG, KAM, TRIG #### [facility] [address] [place] [address] Service Support Representative: Sadi Gambino MD #### IOCAL #### [address] [address] Service Support Representative: Sha Nicholson MD Platelet mean volume (Bld) [Entitic vol] 10.8 fL Normal 8.1-13.5 [facility] Comment on above: Performed By: #### C BC, PT, CMPX, ALEJANDRO, LIP, MG, KAM, TRIG #### [facility] [address] [place] [address] Service Support Representative: Sadi Gambino MD #### IOCAL #### [address] [address] Service Support Representative: Sha Nicholson MD Platelets (Bld) [#/Vol] 208 10*3/uL Normal 138-453 [facility] Comment on above: Performed By: #### C BC, PT, CMPX, ALEJANDRO, LIP, MG, KAM, TRIG #### [facility] [address] [place] [address] Service Support Representative: Sadi Gambino MD #### IOCAL #### [address] [address] Service Support Representative: Sha Nicholson MD RBC (Bld) [#/Vol] 4.22 10*6/uL Normal 4.21-5.77 [facility] Comment on above: Performed By: #### C BC, PT, CMPX, ALEJANDRO, LIP, MG, KAM, TRIG #### [facility] [address] [place] [address] Service Support Representative: Sadi Gambino MD #### IOCAL #### [address] [address] Service Support Representative: Sha Nicholson MD WBC (Bld) [#/Vol] 9.1 10*3/uL Normal 3.5-11.3 [facility] Comment on above: Performed By: #### C BC, PT, CMPX, ALEJANDRO, LIP, MG, KAM, TRIG #### [facility] [address] [place] [address] Service Support Representative: Sadi Gambino MD #### IOCAL #### [address] [address] Service Support Representative: Sha Nicholson MD Auto Diff Performed NOT REPORTED Normal [facility] Comment on above: Performed By: #### C BC, PT, CMPX, ALEJANDRO, LIP, MG, KAM, TRIG #### [facility] [address] [place] [address] Service Support Representative: Sadi Gambino MD #### IOCAL #### [address] [address] Service Support Representative: Sha Nicholson MD Platelets (Bld) [#/Vol] NOT REPORTED Normal [facility] Comment on above: Performed By: #### C BC, PT, CMPX, ALEJANDRO, LIP, MG, KAM, TRIG #### [facility] [address] [place] [address] Service Support Representative: Sadi Gambino MD #### IOCAL #### [address] [address] Service Support Representative: Sha Nicholson MD RBC morphology finding Nom (Bld) NOT REPORTED Normal [facility] Comment on above: Performed By: #### C BC, PT, CMPX, ALEJANDRO, LIP, MG, KAM, TRIG #### [facility] [address] [place], [place] [phone] Service Support Representative: Sadi Gambino MD #### IOCAL #### [address] [phone] Service Support Representative: Sha Nicholson MD WBC Morphology NOT REPORTED Normal [facility] Comment on above: Performed By: #### C BC, PT, CMPX, ALEJANDRO, LIP, MG, KAM, TRIG #### [facility] [address] [place], [place] [phone] Service Support Representative: Sadi Gambino MD #### IOCAL #### [address] [phone] Service Support Representative: Sha Nicholson MD Comp Metab w/Bili Pron 06-10 (cont.) Normal [facility] Comment on above: Result Comment: Aver age GFR for 30-39 years old: 107 mL/min/1.73sq m Chronic Kidney Disease: <60 mL/min/1.73sq m Kidney failure: <15 mL/min/1.73sq m eGFR calculated using average adult body mass. Additional eGFR calculator available at: http://www.[employer].com/multiple_crcl_2012.htm Performed By: #### C BC, PT, CMPX, ALEJANDRO, LIP, MG, KAM, TRIG #### [facility] [address] [place], [place] [phone] Service Support Representative: Sadi Gambino MD #### IOCAL #### [address] [phone] Service Support Representative: Sha Nicholson MD Albumin [Mass/Vol] 3.5 g/dL Normal 3.5-5.2 [facility] Comment on above: Performed By: #### C BC, PT, CMPX, ALEJANDRO, LIP, MG, KAM, TRIG #### [facility] [place] [address] Service Support Representative: Sadi Gambino MD #### IOCAL #### [address] [address] Service Support Representative: Sha Nicholson MD Alkaline Phos 89 U/L Normal 40-129 [facility] Comment on above: Performed By: #### C BC, PT, CMPX, ALEJANDRO, LIP, MG, KAM, TRIG #### [facility] [address] [place] [address] Service Support Representative: Sadi Gambino MD #### IOCAL #### [address] [address] Service Support Representative: Sha Nicholson MD ALT [Catalytic activity/Vol] 100 U/L High 5-41 [facility] Comment on above: Performed By: #### C BC, PT, CMPX, ALEJANDRO, LIP, MG, KAM, TRIG #### [facility] [address] [place] [address] Service Support Representative: Sadi Gambino MD #### IOCAL #### [address] [address] Service Support Representative: Sha Nicholson MD Anion gap [Moles/Vol] 12 mmol/L Normal 9-17 [facility] Comment on above: Performed By: #### C BC, PT, CMPX, ALEJANDRO, LIP, MG, KAM, TRIG #### [facility] [address] [place] [address] Service Support Representative: Sadi Gambino MD #### IOCAL #### [address] [address] Service Support Representative: Sha Nicholson MD AST [Catalytic activity/Vol] 30 U/L Normal <40 [facility] Comment on above: Performed By: #### C BC, PT, CMPX, ALEJANDRO, LIP, MG, KAM, TRIG #### [facility] [place] [address] Service Support Representative: Sadi Gambino MD #### IOCAL #### [address] [address] Service Support Representative: Sha Nicholson MD Bilirubin Ql (U) 0.87 mg/dL Normal 0.3-1.2 [facility] Comment on above: Performed By: #### C BC, PT, CMPX, ALEJANDRO, LIP, MG, KAM, TRIG #### [facility] [address] [place] [address] Service Support Representative: Sadi Gambino MD #### IOCAL #### [address] [address] Service Support Representative: Sha Nicholson MD Bilirubin, Indirect 0.55 mg/dL Normal 0.00-1.00 [facility] Comment on above: Performed By: #### C BC, PT, CMPX, ALEJANDRO, LIP, MG, KAM, TRIG #### [facility] [address] [place] [address] Service Support Representative: Sadi Gambino MD #### IOCAL #### [address] [address] Service Support Representative: Sha Nicholson MD Bilirubin.direct [Mass/Vol] 0.32 mg/dL High <0.31 [facility] Comment on above: Performed By: #### C BC, PT, CMPX, ALEJANDRO, LIP, MG, KAM, TRIG #### [facility] [address] [place] [address] Service Support Representative: Sadi Gambino MD #### IOCAL #### [address] [address] Service Support Representative: Sha Nicholson MD Calcium [Mass/Vol] 8.5 mg/dL Low 8.6-10.4 [facility] Comment on above: Performed By: #### C BC, PT, CMPX, ALEJANDRO, LIP, MG, KAM, TRIG #### [facility] [address] [place] [address] Service Support Representative: Sadi Gambino MD #### IOCAL #### [address] [address] Service Support Representative: Sha Nicholson MD Chloride [Moles/Vol] 104 mmol/L Normal 98-107 [facility] Comment on above: Performed By: #### C BC, PT, CMPX, ALEJANDRO, LIP, MG, KAM, TRIG #### [facility] [address] [place] [address] Service Support Representative: Sadi Gambino MD #### IOCAL #### [address] [address] Service Support Representative: Sha Nicholson MD CO2 [Moles/Vol] 24 mmol/L Normal 20-31 [facility] Comment on above: Performed By: #### C BC, PT, CMPX, ALEJANDRO, LIP, MG, KAM, TRIG #### [facility] [address] [place] [address] Service Support Representative: Sadi Gambino MD #### IOCAL #### [address] [address] Service Support Representative: Sha Nicholson MD Creatinine [Mass/Vol] 0.46 mg/dL Low 0.70-1.20 [facility] Comment on above: Performed By: #### C BC, PT, CMPX, ALEJANDRO, LIP, MG, KAM, TRIG #### [facility] [address] [place] [address] Service Support Representative: Sadi Gambino MD #### IOCAL #### [address] [address] Service Support Representative: Sha Nicholson MD GFR, Amer >60 Normal >60 [facility] Comment on above: Performed By: #### C BC, PT, CMPX, ALEJANDRO, LIP, MG, KAM, TRIG #### [facility] [address] [place] [address] Service Support Representative: Sadi Gambino MD #### IOCAL #### [address] [address] Service Support Representative: Sha Nicholson MD GFR,non Amer >60 Normal >60 [facility] Comment on above: Performed By: #### C BC, PT, CMPX, ALEJANDRO, LIP, MG, KAM, TRIG #### [facility] [address] [place] [address] Service Support Representative: Sadi Gambino MD #### IOCAL #### [address] [address] Service Support Representative: Sha Nicholson MD Glucose [Mass/Vol] 88 mg/dL Normal 70-99 [facility] Comment on above: Performed By: #### C BC, PT, CMPX, ALEJANDRO, LIP, MG, KAM, TRIG #### [facility] [address] [place] [address] Service Support Representative: Sadi Gambino MD #### IOCAL #### [address] [address] Service Support Representative: Sha Nicholson MD Potassium [Moles/Vol] 3.8 mmol/L Normal 3.7-5.3 [facility] Comment on above: Performed By: #### C BC, PT, CMPX, ALEJANDRO, LIP, MG, KAM, TRIG #### [facility] [address] [place] [address] Service Support Representative: Sadi Gambino MD #### IOCAL #### [address] [address] Service Support Representative: Sha Nicholson MD Protein [Mass/Vol] 6.0 g/dL Low 6.4-8.3 [facility] Comment on above: Performed By: #### C BC, PT, CMPX, ALEJANDRO, LIP, MG, KAM, TRIG #### [facility] [address] [place] [address] Service Support Representative: Sadi Gambino MD #### IOCAL #### [address] [address] Service Support Representative: Sha Nicholson MD Sodium [Moles/Vol] 140 mmol/L Normal 135-144 [facility] Comment on above: Performed By: #### C BC, PT, CMPX, ALEJANDRO, LIP, MG, KAM, TRIG #### [facility] [place] [address] Service Support Representative: Sadi Gambino MD #### IOCAL #### [address] [address] Service Support Representative: Sha Nicholson MD Urea nitrogen [Mass/Vol] 5 mg/dL Low 6-20 [facility] Comment on above: Performed By: #### C BC, PT, CMPX, ALEJANDRO, LIP, MG, KAM, TRIG #### [facility] [place] [address] Service Support Representative: Sadi Gambino MD #### IOCAL #### [phone] [place], [place] [phone] Service Support Representative: Sha Nicholson MD Albumin/Globulin [Mass ratio] NOT REPORTED Normal 1.0-2.5 [facility] Comment on above: Performed By: #### C BC, PT, CMPX, ALEJANDRO, LIP, MG, KAM, TRIG #### [facility] [address] [place], [place] [phone] Service Support Representative: Sadi Gambino MD #### IOCAL #### [address] [phone] Service Support Representative: Sha Nicholson MD Staging: NOT REPORTED Normal [facility] Comment on above: Performed By: #### C BC, PT, CMPX, ALEJANDRO, LIP, MG, KAM, TRIG #### [facility] [address] [place], [place] [phone] Service Support Representative: Sadi Gambino MD #### IOCAL #### [address] [address] Service Support Representative: Sha Nicholson MD Comp Metabolic w Bili Profil med 06-10-2019 Albumin [Mass/Vol] 3.5 g/dL 3.5 - 5.2 g/dL [place], [place] Albumin/Globulin [Mass ratio] NOT REPORTED [place] ALP [Catalytic activity/Vol] 89 U/L 40 - 129 U/L [place] ALT [Catalytic activity/Vol] 100 U/L High 5 - 41 U/L [place] Anion gap [Moles/Vol] 12 mmol/L 9 - 17 mmol/L [place] AST [Catalytic activity/Vol] 30 U/L <40 [place] Bilirubin Ql (U) 0.87 mg/dL 0.3 - 1.2 mg/dL [place] Bilirubin, Indirect 0.55 mg/dL 0 - 1 mg/dL [place] Bilirubin.direct [Mass/Vol] 0.32 mg/dL High <0.31 [place] Calcium [Mass/Vol] 8.5 mg/dL Low 8.6 - 10. 4 mg/dL [place] Chloride [Moles/Vol] 104 mmol/L 98 - 10 7 mmol/L [place] CO2 [Moles/Vol] 24 mmol/L 20 - 31 mmol/L [place] Creatinine [Mass/Vol] 0.46 mg/dL Low 0.7 - 1.2 mg/dL [place] GFR >60 >60 mL/min [place] GFR Non- >60 >60 mL/min [place] GFR/1.73 sq M predicted among non-blacks MDRD (S/P/Bld) [Vol rate/Area] NOT REPORTED [place] GFR/1.73 sq M predicted among non-blacks MDRD (S/P/Bld) [Vol rate/Area] [place] Comment on above: Average GFR for 30-3 9 years old: 107 mL/min/1.73sq m Chronic Kidney Disease: <60 mL/min/1.73sq m Kidney failure: <15 mL/min/1.73sq m eGFR calculated using average adult body mass. Additional eGFR calculator available at: http://www.[employer]/multiple_crcl_2011.htm Glucose [Mass/Vol] 88 mg/dL 70 - 99 mg/dL [place], [place] Potassium [Moles/Vol] 3.8 mmol/L 3.7 - 5.3 mmol/L [place] Protein [Mass/Vol] 6.0 g/dL Low 6.4 - 8.3 g/dL [place] Sodium [Moles/Vol] 140 mmol/L 135 - 144 mmol/L [place] Urea nitrogen [Mass/Vol] 5 mg/dL Low 6 - 20 mg/dL [place] Lipaseon 06-10-2019 Lipase [Catalytic activity/Vol] 198 U/L High 13-60 [facility] Comment on above: Performed By: #### C BC, PT, CMPX, ALEJANDRO, LIP, MG, KAM, TRIG #### [facility] [address] [place] [address] Service Support Representative: Sadi Gambino MD #### IOCAL #### [address] [address] Service Support Representative: Sha Nicholson MD Lipase [Catalytic activity/Vol] 198 U/L High 13 - 60 U/L [place] Otheron 06-10-2019 Interpretation and review of laboratory results Abnormal [place] Amylaseon 06-09-2019 Amylase [Catalytic activity/Vol] 645 U/L Critically high 28-100 [facility] Comment on above: Performed By: #### C BC, PT, CMPX, ALEJANDRO, LIP, MG, KAM, TRIG #### [facility] [address] [place] [address] Service Support Representative: Sadi Gambino MD #### IOCAL #### [address] [address] Service Support Representative: Sha Nicholson MD Amylase [Catalytic activity/Vol] 645 U/L Critically high 28 - 100 U/L [place] CBCon 06-09-2019 Erythrocyte distribution width (RBC) [Ratio] 12.2 % Normal 11.8-14.4 [facility] Comment on above: Performed By: #### C BC, PT, CMPX, ALEJANDRO, LIP, MG, KAM, TRIG #### [facility] [address] [place] [address] Service Support Representative: Sadi Gambino MD #### IOCAL #### [address] [address] Service Support Representative: Sha Nicholson MD Hematocrit (Bld) [Volume fraction] 39.0 % Low 40.7-50.3 [facility] Comment on above: Performed By: #### C BC, PT, CMPX, ALEJANDRO, LIP, MG, KAM, TRIG #### [facility] [address] [place] [phone] Service Support Representative: Sadi Gambino MD #### IOCAL #### [address] [address] Service Support Representative: Sha Nicholson MD Hemoglobin (Bld) [Mass/Vol] 13.8 g/dL Normal 13.0-17.0 [facility] Comment on above: Performed By: #### C BC, PT, CMPX, ALEJANDRO, LIP, MG, KAM, TRIG #### [facility] [address] [place] [address] 23569 Service Support Representative: Sadi Gambino MD #### IOCAL #### [address] [address] Service Support Representative: Sha Nicholson MD MCH (RBC) [Entitic mass] 30.9 pg Normal 25.2-33.5 [facility] Comment on above: Performed By: #### C BC, PT, CMPX, ALEJANDRO, LIP, MG, KAM, TRIG #### [facility] [address] [place] [address] Service Support Representative: Sadi Gambino MD #### IOCAL #### [address] [address] Service Support Representative: Sha Nicholson MD MCHC (RBC) [Mass/Vol] 35.4 g/dL High 28.4-34.8 [facility] Comment on above: Performed By: #### C BC, PT, CMPX, ALEJANDRO, LIP, MG, KAM, TRIG #### [facility] [address] [place] [address] Service Support Representative: Sadi Gambnio MD #### IOCAL #### [address] [address] Service Support Representative: Sha Nicholson MD MCV (RBC) [Entitic vol] 87.4 fL Normal 82.6-102.9 [facility] Comment on above: Performed By: #### C BC, PT, CMPX, ALEJANDRO, LIP, MG, KAM, TRIG #### [facility] [address] [place] [address] Service Support Representative: Sadi Gambino MD #### IOCAL #### [address] [address] Service Support Representative: Sha Nicholson MD NRBC Automated 0.0 per [address] [facility] Comment on above: Performed By: #### C BC, PT, CMPX, ALEJANDRO, LIP, MG, KAM, TRIG #### [facility] [place] [address] Service Support Representative: Sadi Gambino MD #### IOCAL #### [address] [address] Service Support Representative: Sha Nicholson MD Platelet mean volume (Bld) [Entitic vol] 10.7 fL Normal 8.1-13.5 [facility] Comment on above: Performed By: #### C BC, PT, CMPX, ALEJANDRO, LIP, MG, KAM, TRIG #### [facility] [place] [address] Service Support Representative: Sadi Gambino MD #### IOCAL #### [address] [address] Service Support Representative: Sha Nicholson MD Platelets (Bld) [#/Vol] 186 10*3/uL Normal 138-453 [facility] Comment on above: Performed By: #### C BC, PT, CMPX, ALEJANDRO, LIP, MG, KAM, TRIG #### [facility] [address] [place] [address] 30158 Service Support Representative: Sadi Gambino MD #### IOCAL #### [address] [address] Service Support Representative: Sha Nicholson MD RBC (Bld) [#/Vol] 4.46 10*6/uL Normal 4.21-5.77 [facility] Comment on above: Performed By: #### C BC, PT, CMPX, ALEJANDRO, LIP, MG, KAM, TRIG #### [facility] [address] [place] [address] Service Support Representative: Sadi Gambino MD #### IOCAL #### [address] [address] Service Support Representative: Sha Nicholson MD WBC (Bld) [#/Vol] 11.5 10*3/uL High 3.5-11.3 [facility] Comment on above: Performed By: #### C BC, PT, CMPX, ALEJANDRO, LIP, MG, KAM, TRIG #### [facility] [address] [place] [address] Service Support Representative: Sadi Gambino MD #### IOCAL #### [address] [address] Service Support Representative: Sha Nicholson MD Erythrocyte distribution width (RBC) [Ratio] 12.2 % 11.8 - 14.4 % [place] Hematocrit (Bld) [Volume fraction] 39.0 % Low 40.7 - 50.3 % [place] Hemoglobin (Bld) [Mass/Vol] 13.8 g/dL 13 - 17 g/dL [place] Interpretation and review of laboratory results Abnormal [place] MCH (RBC) [Entitic mass] 30.9 pg 25.2 - 33.5 pg [place] MCHC (RBC) [Mass/Vol] 35.4 g/dL High 28.4 - 34.8 g/dL [place] MCV (RBC) [Entitic vol] 87.4 fL 82.6 - 102.9 fL [place] Platelet mean volume (Bld) [Entitic vol] 10.7 fL 8.1 - 13.5 fL [place] Platelets (Bld) [#/Vol] 186 10*3/uL [place] RBC (Bld) [#/Vol] 4.46 10*6/uL 4.21 - 5.7 7 m/uL [place] WBC (Bld) [#/Vol] 0.0 10*3/uL 0.0 per 10 0 WBC [place] WBC (Bld) [#/Vol] 11.5 10*3/uL High [place] Calcium, Ionicon 06-09-2019 Calcium [Mass/Vol] 1.23 mmol/L Normal 1.13-1.33 [facility] Comment on above: Performed By: #### C BC, PT, CMPX, ALEJANDRO, LIP, MG, KAM, TRIG #### [facility] [address] [place], [place] [phone] Service Support Representative: Sadi Gambino MD #### IOCAL #### [facility] [address] [place], [place] [phone] Service Support Representative: Sha Nicholson MD Calcium, Ionizedon 9 Calcium [Mass/Vol] 1.23 mmol/L 1.13 - 1. 33 mmol/L [place] Comp Metabolic Pr/rfx MGon 1 08-09-2018 (cont.) Normal [facility] Comment on above: Result Comment: Aver age GFR for 30-39 years old: 107 mL/min/1.73sq m Chronic Kidney Disease: <60 mL/min/1.73sq m Kidney failure: <15 mL/min/1.73sq m eGFR calculated using average adult body mass. Additional eGFR calculator available at: http://www.[employer]/multiple_crcl_2012.htm Performed By: #### C BC, PT, CMPX, ALEJANDRO, LIP, MG, KAM, TRIG #### [facility] [address] [place] [address] Service Support Representative: Sadi Gambino MD #### IOCAL #### [address] [address] Service Support Representative: Sha Nicholson MD Albumin [Mass/Vol] 3.6 g/dL Normal 3.5-5.2 [facility] Comment on above: Performed By: #### C BC, PT, CMPX, ALEJANDRO, LIP, MG, KAM, TRIG #### [facility] [address] [place] [address] Service Support Representative: Sadi Gambino MD #### IOCAL #### [address] [address] Service Support Representative: Sha Nicholson MD Alkaline Phos 109 U/L Normal 40-129 [facility] Comment on above: Performed By: #### C BC, PT, CMPX, ALEJANDRO, LIP, MG, KAM, TRIG #### [facility] [address] [place] [phone] Service Support Representative: Sadi Gambino MD #### IOCAL #### [address] [address] Service Support Representative: Sha Nicholson MD ALT [Catalytic activity/Vol] 119 U/L High 5-41 [facility] Comment on above: Performed By: #### C BC, PT, CMPX, ALEJANDRO, LIP, MG, KAM, TRIG #### [facility] [address] [place] [address] Service Support Representative: Sadi Gambino MD #### IOCAL #### [address] [address] Service Support Representative: Sha Nicholson MD Anion gap [Moles/Vol] 10 mmol/L Normal 9-17 [facility] Comment on above: Performed By: #### C BC, PT, CMPX, ALEJANDRO, LIP, MG, KAM, TRIG #### [facility] [address] [place] [address] Service Support Representative: Sadi Gambino MD #### IOCAL #### [address] [address] Service Support Representative: Sha Nicholson MD AST [Catalytic activity/Vol] 31 U/L Normal <40 [facility] Comment on above: Performed By: #### C BC, PT, CMPX, ALEJANDRO, LIP, MG, KAM, TRIG #### [facility] [address] [place] [address] Service Support Representative: Sadi Gambino MD #### IOCAL #### [address] [address] Service Support Representative: Sha Nicholson MD Bilirubin Ql (U) 1.04 mg/dL Normal 0.3-1.2 [facility] Comment on above: Performed By: #### C BC, PT, CMPX, ALEJANDRO, LIP, MG, KAM, TRIG #### [facility] [place] [address] Service Support Representative: Sadi Gambino MD #### IOCAL #### [address] [address] Service Support Representative: Sha Nicholson MD BUN/CRE Ratio 15 Normal 9-20 [facility] Comment on above: Performed By: #### C BC, PT, CMPX, ALEJANDRO, LIP, MG, KAM, TRIG #### [facility] [address] [place] [address] Service Support Representative: Sadi Gambino MD #### IOCAL #### [address] [address] Service Support Representative: Sha Nicholson MD Calcium [Mass/Vol] 8.5 mg/dL Low 8.6-10.4 [facility] Comment on above: Performed By: #### C BC, PT, CMPX, ALEJANDRO, LIP, MG, KAM, TRIG #### [facility] [address] [place] [address] Service Support Representative: Sadi Gambino MD #### IOCAL #### [address] [address] Service Support Representative: Sha Nicholson MD Chloride [Moles/Vol] 101 mmol/L Normal 98-107 [facility] Comment on above: Performed By: #### C BC, PT, CMPX, ALEJANDRO, LIP, MG, KAM, TRIG #### [facility] [address] [place] [address] Service Support Representative: Sadi Gambino MD #### IOCAL #### [address] [address] Service Support Representative: Sha Nicholson MD CO2 [Moles/Vol] 25 mmol/L Normal 20-31 [facility] Comment on above: Performed By: #### C BC, PT, CMPX, ALEJANDRO, LIP, MG, KAM, TRIG #### [facility] [address] [place] [address] Service Support Representative: Sadi Gambino MD #### IOCAL #### [address] [address] Service Support Representative: Sha Nicholson MD Creatinine [Mass/Vol] 0.47 mg/dL Low 0.70-1.20 [facility] Comment on above: Performed By: #### C BC, PT, CMPX, ALEJANDRO, LIP, MG, KAM, TRIG #### [facility] [address] [place] [address] 47981 Service Support Representative: Sadi Gambino MD #### IOCAL #### [address] [address] Service Support Representative: Sha Nicholson MD GFR, Amer >60 Normal >60 [facility] Comment on above: Performed By: #### C BC, PT, CMPX, ALEJANDRO, LIP, MG, KAM, TRIG #### [facility] [address] [place] [address] Service Support Representative: Sadi Gambino MD #### IOCAL #### [address] [address] Service Support Representative: Sha Nicholson MD GFR,non Amer >60 Normal >60 [facility] Comment on above: Performed By: #### C BC, PT, CMPX, ALEJANDRO, LIP, MG, KAM, TRIG #### [facility] [address] [place] [address] Service Support Representative: Sadi Gambino MD #### IOCAL #### [address] [address] Service Support Representative: Sha Nicholson MD Glucose [Mass/Vol] 78 mg/dL Normal 70-99 [facility] Comment on above: Performed By: #### C BC, PT, CMPX, ALEJANDRO, LIP, MG, KAM, TRIG #### [facility] [address] [place] [address] Service Support Representative: Sadi Gambino MD #### IOCAL #### [address] [address] Service Support Representative: Sha Nicholson MD Potassium [Moles/Vol] 3.6 mmol/L Low 3.7-5.3 [facility] Comment on above: Performed By: #### C BC, PT, CMPX, ALEJANDRO, LIP, MG, KAM, TRIG #### [facility] [address] [place] [address] Service Support Representative: Sadi Gambino MD #### IOCAL #### [address] [phone] Service Support Representative: Sha Nicholson MD Protein [Mass/Vol] 6.0 g/dL Low 6.4-8.3 [facility] Comment on above: Performed By: #### C BC, PT, CMPX, ALEJANDRO, LIP, MG, KAM, TRIG #### [facility] [address] [place] [address] Service Support Representative: Sadi Gambino MD #### IOCAL #### [address] [address] Service Support Representative: Sha Nicholson MD Sodium [Moles/Vol] 136 mmol/L Normal 135-144 [facility] Comment on above: Performed By: #### C BC, PT, CMPX, ALEJANDRO, LIP, MG, KAM, TRIG #### [facility] [address] [place] [address] Service Support Representative: Sadi Gambino MD #### IOCAL #### [address] [address] Service Support Representative: Sha Nicholson MD Urea nitrogen [Mass/Vol] 7 mg/dL Normal 6-20 [facility] Comment on above: Performed By: #### C BC, PT, CMPX, ALEJANDRO, LIP, MG, KAM, TRIG #### [facility] [address] [place] [address] Service Support Representative: Sadi Gambino MD #### IOCAL #### [address] [phone] Service Support Representative: Sah Nicholson MD Albumin/Globulin [Mass ratio] NOT REPORTED Normal 1.0-2.5 [facility] Comment on above: Performed By: #### C BC, PT, CMPX, ALEJANDRO, LIP, MG, KAM, TRIG #### [facility] [address] [place] [address] [phone] Service Support Representative: Sadi Gambino MD #### IOCAL #### [address] [phone] Service Support Representative: Sha Nicholson MD Staging: NOT REPORTED Normal [facility] Comment on above: Performed By: #### C BC, PT, CMPX, ALEJANDRO, LIP, MG, KAM, TRIG #### [facility] [address] [place] [address] [phone] Service Support Representative: Sadi Gambino MD #### IOCAL #### [address] [address] Service Support Representative: Sha Nicholson MD Comprehensive Metabolic Pane l w/ Reflex to MGon 06-09-2019 Albumin [Mass/Vol] 3.6 g/dL 3.5 - 5.2 g/dL [place] Albumin/Globulin [Mass ratio] NOT REPORTED [place] ALP [Catalytic activity/Vol] 109 U/L 40 - 129 U/L [place] ALT [Catalytic activity/Vol] 119 U/L High 5 - 41 U/L [place] Anion gap [Moles/Vol] 10 mmol/L 9 - 17 mmol/L [place] AST [Catalytic activity/Vol] 31 U/L <40 [place] Bilirubin Ql (U) 1.04 mg/dL 0.3 - 1.2 mg/dL [place] Bun/Cre Ratio 15 [place] Calcium [Mass/Vol] 8.5 mg/dL Low 8.6 - 10. 4 mg/dL [place] Chloride [Moles/Vol] 101 mmol/L 98 - 10 7 mmol/L [place] CO2 [Moles/Vol] 25 mmol/L 20 - 31 mmol/L [place] Creatinine [Mass/Vol] 0.47 mg/dL Low 0.7 - 1.2 mg/dL [place] GFR >60 >60 mL/min [place] GFR Non- >60 >60 mL/min [place] GFR/1.73 sq M predicted among non-blacks MDRD (S/P/Bld) [Vol rate/Area] [place] Comment on above: Average GFR for 30-3 9 years old: 107 mL/min/1.73sq m Chronic Kidney Disease: <60 mL/min/1.73sq m Kidney failure: <15 mL/min/1.73sq m eGFR calculated using average adult body mass. Additional eGFR calculator available at: http://www.[employer]/multiple_crcl_2012.htm GFR/1.73 sq M predicted among non-blacks MDRD (S/P/Bld) [Vol rate/Area] NOT REPORTED [place] Glucose [Mass/Vol] 78 mg/dL 70 - 99 mg/dL [place], [place] Potassium [Moles/Vol] 3.6 mmol/L Low 3.7 - 5.3 mmol/L [place] Protein [Mass/Vol] 6.0 g/dL Low 6.4 - 8.3 g/dL [place] Sodium [Moles/Vol] 136 mmol/L 135 - 144 mmol/L [place] Urea nitrogen [Mass/Vol] 7 mg/dL 6 - 20 mg/dL [place] Lipaseon 06-09-2019 Lipase [Catalytic activity/Vol] 688 U/L High 13-60 [facility] Comment on above: Performed By: #### C BC, PT, CMPX, ALEJANDRO, LIP, MG, KAM, TRIG #### [facility] [address] [place], [place] [phone] Service Support Representative: Sadi Gambino MD #### IOCAL #### [facility] [place], [place] [phone] Service Support Representative: Sha Nicholson MD Lipase [Catalytic activity/Vol] 688 U/L High 13 - 60 U/L [place] Magnesiumon 06-09-2019 Magnesium [Mass/Vol] 1.8 mg/dL Normal 1.6-2.6 [facility] Comment on above: Performed By: #### C BC, PT, CMPX, ALEJANDRO, LIP, MG, KAM, TRIG #### [facility] [address] [place], [place] [phone] Service Support Representative: Sadi Gambino MD #### IOCAL #### [address] [phone] Service Support Representative: Sha Nicholson MD Magnesium [Mass/Vol] 1.8 mg/dL 1.6 - 2 .6 mg/dL [place] Otheron 06-09-2019 Interpretation and review of laboratory results Abnormal [place] PTon 06-09-2019 INR Coag (PPP) [Relative time] 1.0 {INR} Normal [facility] Comment on above: Result Comment: Therapeutic Range: Moderate Anticoagulant Intensity: INR = 2.0-3.0 High Anticoagulant Intensity: INR = 2.5-3.5 High anticoagulant intensity for patients with a mechanical prosthetic heart valve, thrombosis and antiphospholipid syndrome, or myocardial infarction. Performed By: #### C BC, PT, CMPX, ALEJANDRO, LIP, MG, KAM, TRIG #### [facility] [address] [place] [address] Service Support Representative: Sadi Gambino MD #### IOCAL #### [address] [phone] Service Support Representative: Sha Nicholson MD PT Coag (PPP) [Time] 10.6 s Normal 9.7-11.6 [facility] Comment on above: Performed By: #### C BC, PT, CMPX, ALEJANDRO, LIP, MG, KAM, TRIG #### [facility] [address] [place] [address] Service Support Representative: Sadi Gambino MD #### IOCAL #### [address] [phone] Service Support Representative: Sha Nicholson MD Phosphoruson 06-09-2019 Phosphate [Mass/Vol] 2.7 mg/dL 2.5 - 4 .5 mg/dL [place] Phosphorus, Inorg.on 019 Phosphorus, Inorg. 2.7 mg/dL Normal 2.5-4.5 [facility] Comment on above: Performed By: #### C BC, PT, CMPX, ALEJANDRO, LIP, MG, KAM, TRIG #### [facility] [place] [address] Service Support Representative: Sadi Gambino MD #### IOCAL #### [address] [address] Service Support Representative: Sha Nicholson MD Protime-INRon 06-09-2019 INR Coag (PPP) [Relative time] 1.0 {INR} [place] Comment on above: Therapeutic Range: Moderate Anticoagulant Intensity: INR = 2.0-3.0 High Anticoagulant Intensity: INR = 2.5-3.5 High anticoagulant intensity for patients with a mechanical prosthetic heart valve, thrombosis and antiphospholipid syndrome, or myocardial infarction. PT Coag (PPP) [Time] 10.6 s [place] Triglycerideon 06-09-2019 Triglyceride [Mass/Vol] 122 mg/dL <150 [place] Comment on above: Triglyceride Guidelines: <150 Desirable 150-199 Borderline 200-499 High >499 Very high Based on AHA Guidelines for fasting triglyceride, May 2012. Triglycerideson 06-09-2019 Triglyceride [Mass/Vol] 122 mg/dL Normal <150 [facility] Comment on above: Result Comment: Triglyceride Guidelines: <150 Desirable 150-199 Borderline 200-499 High >499 Very high Based on AHA Guidelines for fasting triglyceride, May 2012. Performed By: #### C BC, PT, CMPX, ALEJANDRO, LIP, MG, KAM, TRIG #### [facility] [address] [place], [place] [phone] Service Support Representative: Sadi Gambino MD #### IOCAL #### [address] [address] Service Support Representative: Sha Nicholson MD Hepatitis Acute [facility] 06-08 Hep A Ab,IgM NONREACTIVE Normal NR [facility] Comment on above: Performed By: #### P HEP #### [address] [address] Service Support Representative: Sha Nicholson MD Hep B Core Ab,IgM NONREACTIVE Normal [facility] Comment on above: Performed By: #### P HEP #### [address] [address] Service Support Representative: Sha Nicholson MD Hep B Surf Ag NONREACTIVE Normal NR [facility] Comment on above: Performed By: #### P HEP #### [address] [address] Service Support Representative: Sha Nicholson MD Hep C Ab NONREACTIVE Normal NR [facility] Comment on above: Result Comment: The [...] PCR. Performed By: #### P HEP #### [id number] [place] [address] Service Support Representative: Sha Nicholson MD HAV IgM IA Qn (S) NONREACTIVE NONREACTIVE [place] Hep B Core Ab, IgM NONREACTIVE NONREACTIVE [place] Hepatitis B Surface Ag NONREACTIVE NONREACTIVE [place] Hepatitis C Ab NONREACTIVE NONREACTIVE [place] Comment on above: The hepatitis C [...] [Ratio] 12.4 % 11.8 - 14.4 % [place] Hematocrit (Bld) [Volume fraction] 47.2 % 40.7 - 50.3 % [place] Hemoglobin (Bld) [Mass/Vol] 16.0 g/dL 13 - 17 g/dL [place] Interpretation and review of laboratory results Abnormal [place] MCH (RBC) [Entitic mass] 30.4 pg 25.2 - 33.5 pg [place] MCHC (RBC) [Mass/Vol] 33.9 g/dL 28.4 - 34.8 g/dL [place] MCV (RBC) [Entitic vol] 89.7 fL 82.6 - 102.9 fL [place] Platelet mean volume (Bld) [Entitic vol] 10.6 fL 8.1 - 13.5 fL [place] Platelets (Bld) [#/Vol] 258 10*3/uL [place] RBC (Bld) [#/Vol] 5.26 10*6/uL 4.21 - 5.7 7 m/uL [place] WBC (Bld) [#/Vol] 15.4 10*3/uL High [place] WBC (Bld) [#/Vol] 0.0 10*3/uL 0.0 per 10 0 WBC [place] Erythrocyte distribution width (RBC) [Ratio] 12.4 % 11.8 - 14.4 % [place] Hematocrit (Bld) [Volume fraction] 44.2 % 40.7 - 50.3 % [place] Hemoglobin (Bld) [Mass/Vol] 15.0 g/dL 13 - 17 g/dL [place] MCH (RBC) [Entitic mass] 30.7 pg 25.2 - 33.5 pg [place] MCHC (RBC) [Mass/Vol] 33.9 g/dL 28.4 - 34.8 g/dL [place] MCV (RBC) [Entitic vol] 90.4 fL 82.6 - 102.9 fL [place] Platelet mean volume (Bld) [Entitic vol] 10.4 fL 8.1 - 13.5 fL [place] Platelets (Bld) [#/Vol] 227 10*3/uL [place] RBC (Bld) [#/Vol] 4.89 10*6/uL 4.21 - 5.7 7 m/uL [place] WBC (Bld) [#/Vol] 10.1 10*3/uL [place] WBC (Bld) [#/Vol] 0.0 10*3/uL 0.0 per 10 0 WBC [place] Comprehensive Metabolic Pane akrla 06-07-2019 Albumin [Mass/Vol] 4.4 g/dL 3.5 - 5.2 g/dL [place] Albumin/Globulin [Mass ratio] 1.5 {ratio} [place] ALP [Catalytic activity/Vol] 120 U/L 40 - 129 U/L [place] ALT [Catalytic activity/Vol] 261 U/L High 5 - 41 U/L [place] Anion gap [Moles/Vol] 12 mmol/L 9 - 17 mmol/L [place] AST [Catalytic activity/Vol] 123 U/L High <40 [place] Bilirubin Ql (U) 5.24 mg/dL High 0.3 - 1.2 mg/dL [place] Bun/Cre Ratio 19 [place] Calcium [Mass/Vol] 9.3 mg/dL 8.6 - 10. 4 mg/dL [place] Chloride [Moles/Vol] 98 mmol/L 98 - 10 7 mmol/L [place] CO2 [Moles/Vol] 26 mmol/L 20 - 31 mmol/L [place] Creatinine [Mass/Vol] 0.57 mg/dL Low 0.7 - 1.2 mg/dL [place] GFR >60 >60 mL/min [place] GFR Non- >60 >60 mL/min [place] Glucose [Mass/Vol] 89 mg/dL 70 - 99 mg/dL [place] Interpretation and review of laboratory results Abnormal [place] Potassium [Moles/Vol] 3.5 mmol/L Low 3.7 - 5.3 mmol/L [place] Protein [Mass/Vol] 7.4 g/dL 6.4 - 8.3 g/dL [place] Sodium [Moles/Vol] 136 mmol/L 135 - 144 mmol/L [place] Urea nitrogen [Mass/Vol] 11 mg/dL 6 - 20 mg/dL [place] Comprehensive Metabolic Pane l w/ Reflex to MGon 06-07-2019 Albumin [Mass/Vol] 3.9 g/dL 3.5 - 5.2 g/dL [place] Albumin/Globulin [Mass ratio] 1.4 {ratio} [place] ALP [Catalytic activity/Vol] 90 U/L 40 - 129 U/L [place] ALT [Catalytic activity/Vol] 289 U/L High 5 - 41 U/L [place] Anion gap [Moles/Vol] 13 mmol/L 9 - 17 mmol/L [place] AST [Catalytic activity/Vol] 201 U/L High <40 [place] Bilirubin Ql (U) 3.38 mg/dL High 0.3 - 1.2 mg/dL [place] Bun/Cre Ratio 15 [place] Calcium [Mass/Vol] 9.3 mg/dL 8.6 - 10. 4 mg/dL [place] Chloride [Moles/Vol] 99 mmol/L 98 - 10 7 mmol/L [place] CO2 [Moles/Vol] 22 mmol/L 20 - 31 mmol/L [place] Creatinine [Mass/Vol] 0.61 mg/dL Low 0.7 - 1.2 mg/dL [place] GFR >60 >60 mL/min [place] GFR Non- >60 >60 mL/min [place] Glucose [Mass/Vol] 88 mg/dL 70 - 99 mg/dL [place] Interpretation and review of laboratory results Abnormal [place] Potassium [Moles/Vol] 4.3 mmol/L 3.7 - 5.3 mmol/L [place] Protein [Mass/Vol] 6.7 g/dL 6.4 - 8.3 g/dL [place] Sodium [Moles/Vol] 134 mmol/L Low 135 - 144 mmol/L [place] Urea nitrogen [Mass/Vol] 9 mg/dL 6 - 20 mg/dL [place] EKG 12 [place] 06-07-2019 Atrial Rate 80 BPM [place] P [place] -6 degrees [place] P-R Interval 146 ms [place] Q-T Interval 380 ms [place] QRS Duration 104 ms [place] QTc Calculation (Bazett) 438 ms [place] R [place] -6 degrees [place] T [place] 25 degrees [place] Ventricular Rate 80 BPM [place] Jasen, Mhpn Incoming Ekg Results From [facility] [place] - 06/07/2019 5:43 AM EDT Normal sinus rhythm Normal ECG When compared with ECG of 17-FEB-2018 18:55, No significant change was found Confirmed by Abran RITCHIE MD ([id number]) on 06/07/2019 5:43:09 AM [place] Normal sinus rhythm Normal ECG When compared with ECG of 17-FEB-2018 18:55, No significant change was found Confirmed by Abran RITCHIE MD ([id number]) on 06/07/2019 5:43:09 AM [place] Lactic Acid, Plasmaon 2018 Lactate [Moles/Vol] 1.1 mmol/L 0.5 - 2. 2 mmol/L [place] Lactic Acid, Whole Blood NOT REPORTED 0.7 - 2.1 mmol/L [place] Lipaseon 06-07-2019 Interpretation and review of laboratory results Abnormal [place] Lipase [Catalytic activity/Vol] U/L Critically high 13 - 60 U/L [place] Metabolic Panelon 06-07-2019 GFR/1.73 sq M predicted among non-blacks MDRD (S/P/Bld) [Vol rate/Area] [place] Comment on above: Average GFR for 30-3 9 years old: 107 mL/min/1.73sq m Chronic Kidney Disease: <60 mL/min/1.73sq m Kidney failure: <15 mL/min/1.73sq m eGFR calculated using average adult body mass. Additional eGFR calculator available at: http://www.[employer]/multiple_crcl_2012.htm Stage 1: Some kidney damage normal GFR Stage 2: Mild kidney damage GFR 60-89 Stage 3: Moderate kidney damage GFR 30-59 Stage 4: Severe kidney damage GFR 15-29 Stage 5: Severe kidney damage GFR <15 ESRD - chronic treatment by dialysis or transplant GFR/1.73 sq M predicted among non-blacks MDRD (S/P/Bld) [Vol rate/Area] [place] Comment on above: Average GFR for 30-3 9 years old: 107 mL/min/1.73sq m Chronic Kidney Disease: <60 mL/min/1.73sq m Kidney failure: <15 mL/min/1.73sq m eGFR calculated using average adult body mass. Additional eGFR calculator available at: http://www.[employer]/multiple_crcl_2012.htm Stage 1: Some kidney damage normal GFR Stage 2: Mild kidney damage GFR 60-89 Stage 3: Moderate kidney damage GFR 30-59 Stage 4: Severe kidney damage GFR 15-29 Stage 5: Severe kidney damage GFR <15 ESRD - chronic treatment by dialysis or transplant US GALLBLADDER RUQon 019 Cholesterol [Mass/Vol] Cholelithiasis. Abnormal findings of the gallbladder, suspicious for acute cholecystitis. [place], [place] Jasen, Mhpn Incoming Radiant Results From [employer] - 06/07/2019 7:57 AM EDT EXAMINATION: RIGHT [...] of the gallbladder, suspicious for acute cholecystitis. [facility] [place] EXAMINATION: RIGHT UPPER QUADRANT ULTRASOUND 06/07/2019 7:01 [...] No evidence of right upper quadrant ascites. [facility] [place] APTTon 06-06-2019 aPTT Coag (Bld) [Time] 26.9 s [place], [place] CBC auto differentialon 05-09 Basophils (Bld) [#/Vol] 0.05 10*3/uL [place] Basophils/100 WBC (Bld) 0 % 0 - 2 % [place] Differential Type NOT REPORTED [place] Eosinophils (Bld) [#/Vol] 0.09 10*3/uL [place] Eosinophils/100 WBC (Bld) 1 % 1 - 4 % [place] Erythrocyte distribution width (RBC) [Ratio] 12.0 % 11.8 - 14.4 % [place] Hematocrit (Bld) [Volume fraction] 48.2 % 40.7 - 50.3 % [place] Hemoglobin (Bld) [Mass/Vol] 17.0 g/dL 13 - 17 g/dL [place] Immature granulocytes (Bld) [#/Vol] 0.06 10*3/uL [place] Immature granulocytes (Bld) [#/Vol] 0 % 0 [place] Interpretation and review of laboratory results Abnormal [place] Lymphocytes (Bld) [#/Vol] 1.45 10*3/uL [place] Lymphocytes/100 WBC (Bld) 10 % Low 24 - 43 % [place] MCH (RBC) [Entitic mass] 31.1 pg 25.2 - 33.5 pg [place] MCHC (RBC) [Mass/Vol] 35.3 g/dL High 28.4 - 34.8 g/dL [place] MCV (RBC) [Entitic vol] 88.1 fL 82.6 - 102.9 fL [place] Monocytes (Bld) [#/Vol] 0.82 10*3/uL [place] Monocytes/100 WBC (Bld) 6 % 3 - 12 % [place] Platelet mean volume (Bld) [Entitic vol] 10.5 fL 8.1 - 13.5 fL [place] Platelets (Bld) [#/Vol] 268 10*3/uL [place] Platelets (Bld) [#/Vol] NOT REPORTED [place] RBC (Bld) [#/Vol] 5.47 10*6/uL 4.21 - 5.7 7 m/uL [place] RBC morphology finding Nom (Bld) NOT REPORTED [place] Segmented neutrophils/100 WBC (Bld) 83 % High 36 - 65 % [place] Segs Absolute 11.83 High [place] WBC (Bld) [#/Vol] 0.0 10*3/uL 0.0 per 10 0 WBC [place] WBC (Bld) [#/Vol] 14.3 10*3/uL [place] WBC Morphology NOT REPORTED [place] ABDOMEN PELVIS W IV CONTR Lynn 06-06-2019 INR Coag (Bld) [Relative time] Addendum by Hitesh Becker MD on 06/06/2019 8:35 PM ADDENDUM: Possible mild pericholecystic fluid and punctate gallstone. Possible mild inflammatory changes. Recommend gallbladder ultrasound to exclude cholelithiasis or cholecystitis. [place] EXAMINATION: CT OF THE ABDOMEN AND [...] fusion rods and a disc spacer L4-5. [place] Nonobstructing nephrolith on the left otherwise no acute disease [place] Jasen, Mhpn Incoming Radiant Results From [employer] - 06/06/2019 8:01 PM EDT EXAMINATION: CT [...] on the left otherwise no acute disease [place] Comprehensive metabolic pane karla 06-06-2019 Albumin [Mass/Vol] 4.9 g/dL 3.5 - 5.2 g/dL [place] Albumin/Globulin [Mass ratio] 1.4 {ratio} [place] ALP [Catalytic activity/Vol] 88 U/L 40 - 129 U/L [place] ALT [Catalytic activity/Vol] 268 U/L High 5 - 41 U/L [place] Anion gap [Moles/Vol] 11 mmol/L 9 - 17 mmol/L [place] AST [Catalytic activity/Vol] 241 U/L High <40 [place] Bilirubin Ql (U) 2.32 mg/dL High 0.3 - 1.2 mg/dL [place] Bun/Cre Ratio 15 [place] Calcium [Mass/Vol] 10.4 mg/dL 8.6 - 10. 4 mg/dL [place] Chloride [Moles/Vol] 96 mmol/L Low 98 - 10 7 mmol/L [place] CO2 [Moles/Vol] 29 mmol/L 20 - 31 mmol/L [place] Creatinine [Mass/Vol] 0.62 mg/dL Low 0.7 - 1.2 mg/dL [place] GFR >60 >60 mL/min [place] GFR Non- >60 >60 mL/min [place] Glucose [Mass/Vol] 165 mg/dL High 70 - 99 mg/dL [place], [place] Interpretation and review of laboratory results Abnormal [place] Potassium [Moles/Vol] 4.0 mmol/L 3.7 - 5.3 mmol/L [place] Protein [Mass/Vol] 8.3 g/dL 6.4 - 8.3 g/dL [place] Sodium [Moles/Vol] 136 mmol/L 135 - 144 mmol/L [place] Urea nitrogen [Mass/Vol] 9 mg/dL 6 - 20 mg/dL [place] Lactic acid, plasmaon 2018 Lactate [Moles/Vol] 0.6 mmol/L 0.5 - 2. 2 mmol/L [place] Lactic Acid, Whole Blood NOT REPORTED 0.7 - 2.1 mmol/L [place] Lipaseon 06-06-2019 Lipase [Catalytic activity/Vol] 14 U/L 13 - 60 U/L [place] Metabolic Panelon 06-06-2019 GFR/1.73 sq M predicted among non-blacks MDRD (S/P/Bld) [Vol rate/Area] [place], [place] Comment on above: Stage 1: Some [...] body mass. Additional eGFR calculator available at: http://www.[employer]ogeto/multiple_crcl_2012.htm [employer]INRon 06-06-2019 INR Coag (PPP) [Relative time] 1.0 {INR} [facility], [place] PT Coag (PPP) [Time] 10.1 s [place] Urinalysis with microscopico n 06-06-2019 Amorphous, UA 3+ Abnormal None [place] Bacteria, UA NOT REPORTED None [place] Bilirubin Urine SMALL Abnormal NEGATIVE [place] Casts UA NOT REPORTED /LPF [place] Color, UA YELLOW YELLOW [place] Crystals UA NOT REPORTED None /HPF [place] Epithelial Cells UA 0 TO 2 [place] Glucose, Ur Negative NEGATIVE [place] Interpretation and review of laboratory results Abnormal [place] Ketones Ql (U) Negative NEGATIVE [place] Leukocyte esterase Test strip Ql (U) Negative NEGATIVE [place] Mucus, UA NOT REPORTED None [place] Nitrite, Urine Negative NEGATIVE [place] Other Observations UA NOT REPORTED NOT REQ. M [place] pH, UA 8.5 [place] Protein (U) [Mass/Vol] Negative NEGATIVE [place] RBC (U) [#/Vol] None [place] Renal Epithelial, Urine NOT REPORTED 0 /HPF [place] Specific [place], UA 1.015 [place], [place] Trichomonas, UA NOT REPORTED None [facility], [place] Turbidity UA CLEAR CLEAR [place] Urinalysis Comments NOT REPORTED [facility] [place] Urine Hgb Negative NEGATIVE [facility] [place] Urobilinogen, Urine Normal Normal [facility] WBC, UA None [facility] [place] Yeast, UA NOT REPORTED None [facility] - [facility] Vital Signs Date Time Vital Sign Value Performing Clinician Faci lity 06-09-2021 06:18-0400 SaO2% (BldA) [Mass fraction] 97 % Micheal Kwok MD Work Phone: [employer] Work Phone: 06-09-2021 05:45-0400 Diastolic blood pressure 94 mm[Hg] Micheal Kwok MD Work Phone: [employer] Work Phone: 06-09-2021 05:45-0400 Systolic blood pressure 179 mm[Hg] Micheal Kwok MD Work Phone: [employer] Work Phone: 06-09-2021 05:24-0400 Respiratory rate 20 /min Micheal Kwok MD Work Phone: [employer] Work Phone: 06-09-2021 04:52-0400 Body mass index (BMI) [Ratio] 37.31 kg/m2 Micheal Kwok MD Work Phone: [employer] Work Phone: 06-09-2021 04:52-0400 Body temperature 97 [degF] Micheal Kwok MD Work Phone: [employer] Work Phone: 06-09-2021 04:52-0400 Body weight 117.94 kg Micheal Kwok MD Work Phone: [employer] Work Phone: 06-09-2021 04:52-0400 Heart rate 97 /min Micheal Kwok MD Work Phone: [employer] Work Phone: 06-07-2021 17:08-0400 Diastolic blood pressure 116 mm[Hg] Linette Tapia DO Work Phone: [employer] Work Phone: 06-07-2021 17:08-0400 Systolic blood pressure 181 mm[Hg] Linette Tapia DO Work Phone: [employer] Work Phone: 06-07-2021 17:03-0400 Body temperature 98.2 [degF] Linette Tapia DO Work Phone: [employer] Work Phone: 06-07-2021 17:03-0400 Heart rate 118 /min Linette Tapia DO Work Phone: [employer] Work Phone: 06-07-2021 17:03-0400 Respiratory rate 22 /min Linette Tapia [employer] Work Phone: [employer] Work Phone: 06-07-2021 17:03-0400 SaO2% (BldA) [Mass fraction] 97 % Linette Tapia [employer] Work Phone: [email or web address] Phone: 06-13-2019 12:56-0500 Body Temperature 98.1 [degF] [place] 06-13-2019 12:56-0500 BP Diastolic 82 mm[Hg] Humberto [employer] , [place] 06-13-2019 12:56-0500 BP Systolic 151 mm[Hg] Humberto [employer] [place] 06-13-2019 12:56-0500 Pulse (Heart Rate) 62 /min [place]to [employer] [place] 06-13-2019 12:56-0500 Pulse Oximetry 97 % [place] [employer] [place] 06-13-2019 12:56-0500 Respiratory Rate 16 /min Humberto [employer] 06-13-2019 05:21-0500 BMI (Body Mass Index) 28.15 kg/m2 Humberto Downs [facility] 06-13-2019 05:21-0500 Body weight 89 kg [facility] [place] 06-13-2019 01:30-0500 Height 177.8 cm Humberto Donws [facility] , [place] 06-07-2019 22:16-0400 BP Diastolic 99 mm[Hg] [facility] , [place] 06-07-2019 22:16-0400 BP Systolic 172 mm[Hg] Rodrick [facility] , [place] 06-07-2019 22:16-0400 Pulse Oximetry 96 % Rodrick [facility] , [place] 06-07-2019 20:11-0400 Pulse (Heart Rate) 78 /min [facility]rick [facility], [place] 06-07-2019 20:05-0400 Respiratory Rate 18 /min Rodrick [facility] 06-07-2019 18:00-0400 Body Temperature 97.59 [degF] Rodrick [facility], [place] 06-07-2019 12:46-0400 Body Temperature 98.8 [degF] Kailash Rogers [facility], [place] 06-07-2019 12:46-0400 BP Diastolic 84 mm[Hg] [facility] [place] 06-07-2019 12:46-0400 BP Systolic 137 mm[Hg] [facility] [place] 06-07-2019 12:46-0400 Pulse (Heart Rate) 64 /min Kailash Montanez [facility], [place] 06-07-2019 12:46-0400 Pulse Oximetry 94 % Kailash Rogers [facility], [place] 06-07-2019 12:46-0400 Respiratory Rate 18 /min [facility] [place] 06-07-2019 08:33-0400 Height 177.8 cm Kailash Rogers [facility], [place] 06-07-2019 02:59-0400 BMI (Body Mass Index) 29.27 kg/m2 [facility] 06-07-2019 02:59-0400 Body weight 92.53 kg [facility] Encounters Encounter Date Encounter Type Care Provider Facility Start: 06-09-2021 End: 06-09-2021 Emergency department patient visit MICHEAL REINALDODebbie [facility] Start: 06-09-2021 End: 06-09-2021 Emergency department patient visit Micheal Kwok MD Work Phone: [facility] ED Comment on above: Cough (Primary Dx); Shortness of breath; Essential hypertension Start: 06-07-2021 End: 06-07-2021 Emergency department patient visit LINETTE Abdi TAPIA [facility] Start: 06-07-2021 End: 06-07-2021 [facility] Comment on above: Acute upper respirat ory infection (Primary Dx) Start: 02-11-2021 End: 02-11-[address] TAMIKO CHRISTIANSEN Facility: Start: 06-08-2019 End: 06-13-2019 Evaluation and management of inpatient [facility] Start: 06-07-2019 End: 06-13-2019 [facility] Comment on above: Surgery, elective (P rimary Dx) Start: 06-07-2019 End: 06-07-2019 Emergency department patient visit Rodrick [facility] ED Comment on above: Choledocholithiasis (Primary Dx) Start: 06-06-2019 End: 06-07-2019 Evaluation and management of inpatient [facility] Comment on above: Cholecystitis [...] ARMAAN AMITA Start: 06-13-2019 DIET [facility] Start: 06-13-2019 Assay of amylase ARMAAN AMITA Start: 06-13-2019 [facility] Start: 06-13-2019 Assay of magnesium KATI AMITA Start: 06-13-2019 Blood count complete auto&auto difrntl wbc ARMAAN AMITA Start: 06-13-2019 Comprehensive metabo lic panel ARMAAN AMITA Start: 06-13-2019 INCENTIVE SPIROMETRY RT ARMAAN AMITA Start: 06-13-2019 Assay of amylase Abhishek Vanessa Work Phone: Start: 06-13-2019 Assay of lipase [facility] Work Phone: Start: 06-13-2019 Assay of magnesium Robe [facility] Work Phone: Start: 06-13-2019 Blood count [...] ARMAAN LANDAVERDEON Start: 06-08-2019 DAILY WEIGHTS ARMAAN MARTIN Start: 06-08-2019 FULL CODE ARMAAN THOMPSON HESON Start: 06-08-2019 INITIATE OXYGEN THER APY PROTOCOL ARMAAN AMITA Start: 06-08-2019 INTAKE AND OUTPUT ARMAAN AMITA Start: 06-08-2019 IP CONSULT TO GI ARMAAN LEVI Start: 06-08-2019 NOTIFY PHYSICIAN (SPECIFY) ARMAAN LEVI Start: 06-08-2019 OT EVAL AND TREAT ARMAAN LEVI Start: 06-08-2019 PULSE OXIMETRY SPOT CHECK Jyoce Rubi Work Phone: Start: 06-07-2019 PATIENT STATUS [...] Urnls dip stick/tabl et reagent auto microscopy Kailash Rogers Plan of Treatment Date Care Activity Detail Author Start: 09-06-2026 DTaP/Tdap/Td vaccine (2 - Td or Tdap) DTaP/Tdap/Td vaccine (2 - Td or Tdap) [facility] [employer] Phone: Start: 09-06-2026 DTaP/Tdap/Td vaccine (2 - Td) DTaP/Tdap/Td vaccine (2 - Td) [place] Start: 06-11-2024 Lipid panel Lipid screen [facility] [employer] Phone: Start: 06-09-2022 Creatinine measurement Creatinine mo [facility] [employer] Phone: Start: 06-09-2022 Potassium monitoring Potassium monit [facility] [employer] Phone: Start: 04-07-2021 Influenza vaccination Flu vaccine (# 1) [facility] [employer] Phone: Start: 06-13-2020 Potassium monitoring Potassium monit [facility] [employer] Phone: Start: 06-12-2020 Creatinine measurement Creatinine mo [facility] [employer] Phone: Start: 06-11-2020 Creatinine monitoring Creatinine [place] Start: 06-11-2020 Potassium monitoring Potassium monit [place] Start: 06-07-2020 Creatinine monitoring Creatinine mon [place] Start: 06-07-2020 Potassium monitoring Potassium monit [place] Start: 06-06-2020 Creatinine monitoring Creatinine [place] Start: 06-06-2020 Potassium monitoring Potassium monit [place] Start: 04-07-2019 Influenza vaccination Flu vaccine (# 1) [place], [place] Start: 1996 HIV screen [facility] screen [facility] [place] Start: 1996 HIV screening HIV screen Lisseth Montalvo [facility] Work Phone: Start: 1994 Varicella Vaccine (1 of 2 - 13+ 2-dose series) Varicella Vaccine (1 of 2 - 13+ 2-dose series) [place], [place] Start: 1993 COVID-19 Vaccine (1) COVID-19 Vaccin e (1) [facility] Work Phone: Start: 1987 Pneumococcal 0-64 ye ars Vaccine (1 of 1 - PPSV23) Pneumococcal 0-64 years Vaccine (1 of 1 - PPSV23) [place] Start: 1987 Pneumococcal 0-64 ye ars Vaccine (1 of 2 - PPSV23) Pneumococcal 0-64 years Vaccine (1 of 2 - PPSV23) [facility] [employer] Phone: Start: 1982 Varicella vaccine (1 of 2 - 2-dose childhood series) Varicella vaccine (1 of 2 - 2-dose childhood series) [facility] [employer] Phone: Culture Blood #1 [place] EKG 12 Lead EKG 12 Lead ECG STAT 06/09/2021 5:11 AM EDT [facility] [employer] Phone: End: 06-06-2019 Hepatitis Panel, Acute Hepatitis Panel, Acute Lab Add-On One Time for 1 Occurrences starting 06/06/2019 until 06/06/2019 [place] Comment on above: One Time for 1 Occur rences starting 06/06/2019 until 06/06/2019 Hepatitis Panel, Acute Hepatitis Panel, Acute Lab Add-On 06/06/2019 6:50 PM EDT [place] Incentive spirometry Incentive s pirometry Respiratory Care Routine Every 2hr while awake until discontinued starting 06/12/2019 [place] Comment on above: Every 2hr while awak e until discontinued starting 06/12/2019 Initiate Oxygen Ther apy Protocol [place] Comment on above: Daily until disconti nued starting 06/06/2019 Daily until disconti nued starting 06/08/2019 Daily until disconti nued starting 06/12/2019 End: 06-12-2019 Pulse Oximetry Spot Check Pulse Oximetry Spot Check Respiratory Care Routine One Time for 1 Occurrences starting 06/12/2019 until 06/12/2019 [place] Comment on above: One Time for 1 Occur rences starting 06/12/2019 until 06/12/2019 Pulse oximetry, continuous Pulse oximetry, continuous Respiratory Care Routine Every 4hr until discontinued starting 06/08/2019 [place] Comment on above: Every 4hr until disc ontinued starting 06/08/2019 Surgical Pathology Surgical Path ology Lab Routine ONE TIME for 1 Occurrences starting 06/12/2019 [place] Comment on above: ONE TIME for 1 Occur rences starting 06/12/2019 End: 06-13-2019 Surgical Pathology Surgical Pathology Lab Routine Once for 1 Occurrences starting 06/13/2019 until 06/13/2019 [place] Comment on above: Once for 1 Occurrenc es starting 06/13/2019 until 06/13/2019 Immunizations Immunization Date Immunization Notes Care Provider Fa boris 09-06-2016 tetanus toxoid, redu sera diphtheria toxoid, and acellular pertussis vaccine, adsorbed Kailash Rogers [place] Payers Date Payer Category Payer Private Health Insurance [id number] 2018 Unknown [employer] [address] xxxxxxxxxxxx 2018-Present [phone] [address] [place] [address] xxxxxxxxxxxx [id number] 2018 Unknown [id number] 1980 Unknown [id number] 1980 Unknown [id number] 1980 Unknown [id number] 1980 Unknown [id number] Self-pay Social History Date Type Detail Facility Start: 06-06-2019 End: 06-09-2021 Tobacco smoking status NHIS Current every day sm[place] History of tobacco use Cigarette Smoker Pamela [place] Start: 06-06-2019 End: 06-09-2021 Cigarettes smoked current (pack per day) - Reported [place] Start: 06-06-2019 End: 06-13-2019 Alcohol intake Yes [place] Start: 04-25-2013 Alcohol Comment very [place] Start: 1980 Sex Assigned At Not on file [place], [place] Start: 07-01-2019 End: 06-09-2021 Tobacco use and exposure Never used [facility] [employer] Start: 07-01-2019 End: 06-09-2021 Alcohol intake Current drinker of alcohol (finding) [email or web address] Phone: Exposure to SARS-CoV -2 (event) Not sure [facility] [employer] Medical Equipment Procedure Code Equipment Code Equipment Origin al Text Equipment Identifier Dates Clip Lg [employer] 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 [employer] End[employer] Ster Pk/6 [id number] Start: [...] sent through Care Everywhere.URI (Upper Respiratory Infection) (Malagasy)documented in this encounter [email or web address] Phone: Evaluation note Note Date & Type Note Facility Evaluation note Diagnosis Acute upper respiratory infection- Primary Acute upper respiratory infections of unspecified site documented in this encounter [email or web address] Phone: Evaluation note Note Date & Type Note Facility Evaluation note Diagnosis Cough- Primary Shortness of breath Essential hypertension Unspecified essential hypertension documented in this encounter [email or web address] Phone: Hospital Discharge instructions InstructionsAttachments Note Date [...] sent through Care Everywhere.SOB (Shortness of Breath) (Malagasy)Cough (Malagasy)Hypertension: General Info (Malagasy)documented in this encounter [email or web address] Phone: Discharge Instructions * Discharge Instr - [...] at most local grocery stores, pharmacies, and [employer]-stores. ? If you have any questions about [...] be sent through Care Everywhere. * Dyspepsia (Malagasy) * ERCP (Endoscopic Retrograde Cholangiopancreatogram ): Pre-op (Malagasy) documented in this encounter* Attachments The following attachments cannot be sent through Care Everywhere. * Cholecystectomy: Post-op (Malagasy) * Hypertension (Malagasy) * Post-op Infection (Malagasy) documented in this encounter History of Present Illness * Maria Antonia Galvez RN - 06/07/2019 3:00 PM EDT Occup Ther reviewed discharge instructions with patient and girlfriend. Both verbalized understanding. Denies questions. Copy of discharge instructions given to patient. * Miah Ordoñez MSW, LSW - 06/07/2019 10:44 AM EDT Social Work intial Assessment/Discharge Plan Diagnosis: Cholecystitis, acute with cholelithiasis Met with: Patient, Mother and other family & friends. PCP: Rodrick Galdamez DO Payment Source: [employer] Advance Directives: None Code Status: Full Mental [...] Plan: No needs. Will return home in [place]. * Amina Borjas RD, LD - 06/07/2019 [...] normal diet for pt is fried foods, panamanian fries, cheeseburgers, hotdogs. Pt states he eats [...] Fluid Accumulation-No significant fluid accumulation, Extremities 6. [place] Splitter Strength-Not measured Recent Labs 06/06/19 1850 06/07/19 0545 NA 136 134* K 4.0 4.3 CL 96* 99 CO2 29 22 BUN 9 9 CREATININE 0.62* 0.61* GLUCOSE 165* 88 ALT 268* 289* ALKPHOS 88 90 GFR Lab Results Component Value Date LABALBU 3.9 06/07/2019 Nutrition Risk Level: Moderate Nutrient Needs: Estimated Daily Total Kcal: 7533-5113 Estimated Daily Protein (g): 90-105 Estimated Daily Total Fluid (ml/day): 5413-1357(25-30) Nutrition Diagnosis: Problem: Altered GI function Etiology: [...] , 7.8% weight gain x 9 months [place] [facility] Wt: 166 lb (75.3 kg), % [place] [facility] 122% BMI Classification: BMI 25.0 - [...] : 1980 Age: 39 y.o. male Acct: [id number] Room: [address] [place] [address] Day: 6 Hospital: [facility] Admit Date: 06/07/2019 11:54 PM PCP: Rodrick Galdamez DO Subjective: C/C: Upper right quadrant abdominal pain Interval History: Status: Improved. POD #1 laparoscopic cholecystectomy. Status post ERCP 2 days ago. The results are reported below. Sphincterotomy and balloon sweep of sludge was performed. Patient's amylase and lipase are improved. Patient was released from [facility] 06/06/2019 after hospitalization for upper right [...] Ennis DO - 06/12/2019 11:05 AM EST [facility] - Progress Note 06/12/2019 11:05 AM Name: Devon Mathew : 1980 Age: 39 y.o. male Acct: [id number] Room: [address] [place] [address]-[facility] Day: 5 Hospital: [facility] Admit Date: 06/07/2019 11:54 PM PCP: [...] 4 PM today. Patient was released from [facility] 06/06/2019 after hospitalization for upper right abdominal discomfort. He was diagnosed with acute cholecystitis/cholelithiasis. Initial plan was for MRCP followed by laparoscopic cholecystectomy however [facility] he was discharged to have outpatient [...] for when pt is NPO * Kameron nEnis, DO - 06/11/2019 10:13 AM EST [facility] - Progress Note 06/11/2019 10:14 AM Name: Devon Mathew : 1980 Age: 39 y.o. male Acct: [id number] Room: [address] [place] [address] Day: 4 Hospital: [facility] Admit Date: 06/07/2019 11:54 PM PCP: Rodrick Galdamez DO Subjective: C/C: Upper right quadrant abdominal pain Interval History: Status: About the same. Surgical note has been reviewed. The patient will need laparoscopic cholecystectomy. Surgery is discussing with GI timing or need for ERCP. Tentatively is scheduled for 3:30 PM today. Patient was released from [facility] 06/06/2019 after hospitalization for upper right [...] surgery performed here and not back at [facility]. History: From my partners note Devon [...] : 1980 Age: 39 y.o. male Acct: [id number] Room: [address] [place] [address] Day: 3 Hospital: [facility] Admit Date: 06/07/2019 11:54 PM PCP: Rodrick Galdamez DO Subjective: C/C: Upper right quadrant abdominal pain Interval History: Status: not changed. Patient was released from [facility] 06/06/2019 after hospitalization for upper right [...] surgery performed here and not back at [facility]. Surgical consultation has been obtained. Current [...] Potts MD - 06/09/2019 7:36 AM EST [facility] IN-PATIENT SERVICE [facility] Progress Note 06/09/2019 7:37 AM Name: Devon Mathew Acct: [id number] Room: [address] [place] [address] Day: 2 Admit Date: 06/07/2019 11:54 PM [...] Intake/Output Summary (Last 24 hours) at 06/09/2019 0713 Last data filed at 06/09/2019 0251 Gross [...] results found for: POCPH, PHART, PH, POCPCO2, YBW7AMQ, PCO2, POCPO2, PO2ART, PO2, POCHCO3, RNZ5IVV, HCO3, NBEA, PBEA, BEART, BE, THGBART, THB, ONS5RVX, FXSI7AOG, O5KWRAVW, O2SAT, FIO2 Lab Results Component Value Date/Time [...] - 06/08/2019 12:06 PM EDT Occupational Therapy [facility] Occupational Therapy Not Seen Note Patient not [...] FoundDocuments on File Type Date Recorded Patient Pricing Analyst Expl anation Advance Directives and Living Will Power of Quartz Mounter Latest Code Status on File Code Status Date Activated Date Inactivated Comments Full Code 06/06/2019 11:02 PM Full Code 04/25/2013 9:50 PM 04/26/2013 2:03 PM Full Code 04/25/2013 5:52 PM 04/25/2013 9:50 PM Latest Code Status on File Code Status Date Activated Date Inactivated Comments Full Code 06/06/2019 11:02 PM 06/07/2019 5:24 PM Documents on File Type Date Recorded Patient Pricing Analyst Expl anation Advance Directives and Living Will Power of Quartz Mounter Latest Code Status on File Code Status Date Activated Date Inactivated Comments Full Code 06/08/2019 12:09 AM Full Code 06/06/2019 11:02 PM 06/07/2019 5:24 PM Full Code 04/25/2013 9:50 PM 04/26/2013 2:03 PM Full Code 04/25/2013 5:52 PM 04/25/2013 9:50 PM Documents on File Type Date Recorded Patient Pricing Analyst Expl anation ACP-Advance Directive ACP-Power of Quartz Mounter Latest Code Status on File Code Status Date Activated Date Inactivated Comments Full Code 06/08/2019 12:09 AM 06/13/2019 5:36 PM Full Code 06/06/2019 11:02 PM 06/07/2019 5:24 PM Summary Purpose Family History No Family History Records FoundNo Family History Records FoundNo Family History Records FoundNo Family History Records Found Hospital Course * Kameron Ennis DO - 06/13/2019 2:41 PM EST [facility] IN-PATIENT SERVICE [facility] Discharge Summary Patient ID: Devon Mathew : 1980 ACCOUNT: [id number] Patient's PCP: Rodrick Galdamez DO Admit Date: [...] lipase are improved. Patient was released from [facility] 06/06/2019 after hospitalization for upper right [...] to 2 weeks Rodrick Galdamez DO [address] [facility] [address] Abhishek Vanessa MD [address] [place] [address] In 1 week Requiring Further Evaluation/Follow [...] Your Medications These medications were sent to [facility]/pharmacy #[id number] - [place], [place] - [address] [place] [address] - [phone] - F [phone] [place] [address] cephALEXin 500 MG capsule You can get [...] Contact Diagnoses Acute cholecystitis Margarito Lopez MD [address] [place] [address] [address] [place] [address] [facility] Reason Comments Abdominal Pain upper abd pain. charlie ent was discharged from hospital around 1500 today. he is scheduled for gallbladder surgery on Monday in [place]. he is having increased pain at this time. Status Reason Specialty Diagnoses / Procedures Referre d By Contact Referred To Contact Diagnoses Abdominal pain abdominal pain Paula Potts MD [address] [place] [address] [facility] Reason Comments Cough cough ongoing for tw [...] section and content) DATE CREATED AUTHOR 06/14/2019 [facility] DATE CREATED AUTHOR AUTHOR'S ORGANIZ ATION 02/25/2021 [facility] DATE CREATED AUTHOR AUTHOR'S ORGANIZ ATION 06/10/2021 [facility] DATE CREATED AUTHOR AUTHOR'S [...] BE BASED ON THE PRIMARY CLINICAL RECORDS. [facility] [facility]. provides no warranty or guarantee of the accuracy or completeness of information in this document.
--- NOTE | 2023-10-09 15:47 | ECG_ITS ---
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
--- NOTE | 2023-10-09 15:48 | ED.URI1 ---
HPI - URI/Sore Throat General Chief Complaint: Upper Respiratory Infection Stated Complaint: Upper Respiratory Infection Time Seen by Provider: 10/09/23 15:31 Source: patient History of Present Illness HPI Narrative: Patient is a 43-year-old male who presents to the emergency department for increasing shortness of breath, feeling clammy and having cold chills. Patient states he has had a cough intermittently for years, he is a 1 pack/day cigarette smoker. He recently moved to the area with his from [place] and does not have a local PCP. They had leftover nebulizers at home from years ago when they had COVID, patient used a nebulizer breathing treatment last night without improvement. He does not know if they were . He states for the last 2 days he has had cold chills, increased work of breathing, wheezing, sputum production. He states the sputum is blood-tinged but he has not had any elizabeth mopped assist or passage of blood clots. He has had no objective fevers, vomiting. Related Data Home Medications Medication Instructions Recorded Confirmed metoprolol tartrate 50 mg tablet 50 mg PO BID 09/03/23 09/25/23 Previous Rx's Medication Instructions Recorded nifedipine 90 mg tablet,extended 90 mg PO DAILY #14 tabs 09/03/23 release cyclobenzaprine 10 mg tablet 10 mg PO TID PRN muscle spasm #20 09/25/23 tabs hydrocodone 5 mg-acetaminophen 325 1 tab PO Q6H PRN pain #20 tabs 09/25/23 mg tablet albuterol sulfate 2.5 mg/3 mL 2.5 mg (3 mL) inhalation Q6H PRN 10/09/23 (0.083 %) solution for nebulization shortness of breath or wheezing #90 mL azithromycin 250 mg tablet See Rx Instructions PO .COMPLEX #6 10/09/23 (Zithromax Z-Glen) tabs furosemide 20 mg tablet (Lasix) 20 mg PO BID 3 days #6 tabs 10/09/23 prednisone 20 mg tablet 60 mg (3 x 20 mg) PO DAILY 3 days 10/09/23 #9 tabs Allergies Allergy/AdvReac Type Severity Reaction Status Date / Time No Known Drug Allergies Allergy Verified 09/03/23 16:34 Review of Systems ROS Constitutional Reports: chills; Denies: fever Ears, nose, mouth, and throat Reports: nasal congestion; Denies: throat pain Cardiovascular Reports: chest pain Respiratory Reports: shortness of breath, cough, wheezing, change in phlegm color, coughing up blood and chest congestion Gastrointestinal Denies: nausea or vomiting Musculoskeletal Denies: back pain or neck pain Integumentary/Breast Denies: rash Neurological Denies: headache Hematologic/Lymphatic Denies: easy bruising or easy bleeding [facility] Social History Smoking status: Heavy tobacco smoker Exam Narrative Exam Narrative: Gen.: Awake, alert, in no distress Head: Normocephalic, atraumatic ENT: Moist mucous membranes Respiratory: No respiratory distress, Inspiratory and expiratory wheezing Cardio: Regular rate and rhythm Extremities: Moves extremities equally Psych: Normal mood and affect Neuro: No focal neuro deficit Skin: Warm, dry, intact Constitutional Vital Signs, click to edit/add: Last Vital Signs Temp 98.1 F 10/09/23 15:28 Pulse 79 10/09/23 16:05 Resp 22 10/09/23 15:28 BP 177/101 H 10/09/23 17:08 Pulse Ox 98 10/09/23 15:37 O2 Del Method Room Air 10/09/23 15:37 Course Vital Signs Vital signs: Vital Signs Temperature 98.1 F 10/09/23 15:28 Pulse Rate 84 10/09/23 15:28 Respiratory Rate 22 10/09/23 15:28 Blood Pressure 178/98 H 10/09/23 15:28 Pulse Oximetry 98 10/09/23 15:28 Oxygen Delivery Method Room Air 10/09/23 15:28 Temperature 98.1 F 10/09/23 15:28 Pulse Rate 79 10/09/23 16:05 Respiratory Rate 22 10/09/23 15:28 Blood Pressure 177/101 H 10/09/23 17:08 Pulse Oximetry 98 10/09/23 15:37 Oxygen Delivery Method Room Air 10/09/23 15:37 MDM - URI/Sore Throat MDM Narrative Medical decision making narrative: Patient was noted to have elevated blood pressure, he states this is an issue he has been having, he is on multiple blood pressure medications at home. He was given labetalol and Vasotec in addition to IV fluids, Solu-Medrol and breathing treatments in the ER. Lab studies including D-dimer are within normal limits although the patient did have elevated BNP. His chest x-ray shows borderline cardiomegaly with no pulmonary edema, I made him aware of these results and we will treat with Lasix for 3 days for potential fluid overload which may improve his blood pressure. He was strongly encouraged to follow-up with PCP for echocardiography as needed in addition to pulmonary referral for evaluation of probable COPD. He was given albuterol nebulizers, prednisone, Zithromax, Lasix for home. Follow-up with PCP, pulmonology, return to the ER if symptoms change or worsen Medical Records Attestation: I reviewed the patient's medical records. Lab Data Attestation: I reviewed the patient's lab results. Labs: Lab Results 10/09/23 10/09/23 10/09/23 Range/Units 15:59 16:20 16:24 WBC 7.7 (4.0-11.0) 10^3/uL RBC 4.93 (4.70-6.10) 10^6/uL Hgb 14.5 (14.0-18.0) g/dL Hct 42.0 (42.0-54.0) % MCV 85.2 (80.0-94.0) fL MCH 29.4 (25.9-34.0) pg MCHC 34.5 (29.9-35.2) g/dL RDW 13.2 (11.0-15.0) % Plt Count 210 (150-450) 10^3/uL MPV 12.7 (9.5-13.5) fL Neut % (Auto) 68.8 (43.0-75.0) % Lymph % (Auto) 16.6 L (20.5-60.0) % [place] % (Auto) 11.8 (1.7-12.0) % Eos % (Auto) 1.6 (0.9-7.0) % Baso % (Auto) 0.9 (0.2-2.0) % Neut # (Auto) 5.3 (1.4-6.5) 10^3/uL Lymph # (Auto) 1.3 (1.2-3.8) 10^3/uL [place] # (Auto) 0.9 H (0.3-0.8) 10^3/uL Eos # (Auto) 0.1 (0.0-0.7) 10^3/uL Baso # (Auto) 0.1 (0.0-0.1) 10^3/uL Abs Immat Gran (auto) 0.02 (0.00-0.03) 10^3/uL Imm/Tot Granulo (auto) 0.3 (0.0-0.5) % PT 10.4 (9.0-11.6) sec INR 0.98 D-Dimer 0.39 (<=0.59) mg/L FEU Sodium 137 (136-145) mmol/L Potassium 4.3 (3.5-5.1) mmol/L Chloride 101 (98-107) mmol/L Carbon Dioxide 28.5 (21.0-32.0) mmol/L Anion Gap 11.8 BUN 7.0 (7.0-18.0) mg/dL Creatinine 0.72 (0.70-1.30) mg/dL Est GFR ( Amer) >60 (>=60) Est GFR (Non-Af Amer) >60 (>=60) BUN/Creatinine Ratio 9.7 Glucose 227 H (74-106) mg/dL Calcium 8.3 L (8.5-10.1) mg/dL Total Bilirubin 0.4 (0.2-1.0) mg/dL AST 14 L (15-37) U/L ALT 25 (16-63) U/L Alkaline Phosphatase 72 (46-116) U/L Troponin I High Sens 23.6 (4.0-76.1) pg/mL NT-Pro-B Natriuret Pep 850.0 H* (<=450.0) pg/mL Total Protein 6.8 (6.4-8.2) g/dL Albumin 3.2 L (3.4-5.0) g/dL Globulin 3.6 g/dL Albumin/Globulin Ratio 0.9 Influenza Type A Ag Negative Influenza Type B Ag Negative RSV Antigen Not detected (NOT DETECTE) SARS-CoV-2 Ag (CV2AG) Negative (NEGATIVE) Imaging Data Chest x-ray: Attestation: I have reviewed the pertinent imaging results. Radiologist's impression: ITS Impressions Chest X-Ray 10/09/23 16:47 IMPRESSION: The heart appears borderline enlarged without overt cardiac decompensation. A discrete infiltrate is not identified. Direct comparison with a previous study may be helpful in determining the chronicity of these findings. Electronically authenticated by: LINDA BANKS Date: 10/09/2023 17:09 ECG Data Attestation: I personally reviewed and interpreted this ECG as follows: (Normal sinus rhythm at a rate of 77, no acute ST elevation or ectopy. EKG reviewed by attending physician) Discharge Plan Discharge Chief Complaint: Upper Respiratory Infection Clinical Impression: Upper respiratory infection, Shortness of breath Patient Disposition: Home, Self-Care Time of Disposition Decision: 17:43 Condition: Good Prescriptions / Home Meds: New albuterol sulfate 2.5 mg /3 mL (0.083 %) solution for nebulization 2.5 mg inhalation Q6H PRN (Reason: shortness of breath or wheezing) Qty: 90 0RF azithromycin [Zithromax Z-Glen] 250 mg tablet See Rx Instructions .ROUTE .COMPLEX Qty: 6 0RF Rx Instructions: For 250 mg dose pack: take 500 mg today (day 1), then 250 mg for 4 days (days 2-5) prednisone 20 mg tablet 60 mg PO DAILY 3 Days Qty: 9 0RF furosemide [Lasix] 20 mg tablet 20 mg PO BID 3 Days Qty: 6 0RF No Action metoprolol tartrate 50 mg tablet 50 mg PO BID nifedipine 90 mg tablet extended release 90 mg PO DAILY Qty: 14 0RF cyclobenzaprine 10 mg tablet 10 mg PO TID PRN (Reason: muscle spasm) Qty: 20 0RF hydrocodone-acetaminophen 5-325 mg tablet 1 tab PO Q6H PRN (Reason: pain) Qty: 20 0RF Instructions: Upper Respiratory Infection (ED), Shortness of Breath (ED) Additional Instructions: Please use breathing treatments every 4-6 hours for wheezing/shortness of breath; call [facility] to establish a primary care appointment Referrals: HATTIE SHANE APRN [Physician] - 1 week Saud Raygoza DO [Physician] - 1 week Physician,Non-Staff, MD [Primary Care Provider] - 1 week Stand Alone Forms: Portal Instructions
[2023-10-09] MEDS: IPRATROPIUM/ALBUTEROL SULFATE 3 ML AMPUL.NEB IH (16:04)
[2023-10-09 16:12] LABS: Basophils Absolute Auto 0.1 10^3/uL (0.0-0.1); Basophils Percent Auto 0.9 % (0.2-2.0); Eosinophils Absolute Auto 0.1 10^3/uL (0.0-0.7); Eosinophils Percent Auto 1.6 % (0.9-7.0); Hemoglobin 14.5 g/dL (14.0-18.0); Immature Granulocytes Abs Auto 0.02 10^3/uL (0.00-0.03); Immature Granulocytes Pct Auto 0.3 % (0.0-0.5); Lymphocytes Absolute Auto 1.3 10^3/uL (1.2-3.8); Lymphocytes Percent Auto 16.6 % (20.5-60.0); Mean Corpuscular HGB Conc 34.5 g/dL (29.9-35.2); Mean Corpuscular Hemoglobin 29.4 pg (25.9-34.0); Mean Corpuscular Volume 85.2 fL (80.0-94.0); Mean Platelet Volume 12.7 fL (9.5-13.5); Monocytes Absolute Auto 0.9 10^3/uL (0.3-0.8); Monocytes Percent Auto 11.8 % (1.7-12.0); Neutrophils Absolute Auto 5.3 10^3/uL (1.4-6.5); Neutrophils Percent Auto 68.8 % (43.0-75.0); Platelet Count 210 10^3/uL (150-450); Red Blood Count 4.93 10^6/uL (4.70-6.10); Red Cell Distribution Width 13.2 % (11.0-15.0); White Blood Count 7.7 10^3/uL (4.0-11.0)
[2023-10-09] MEDS: HYDROCODONE BIT/HOMATROP 5 MG/1.5 MG TABLET 1 TAB PO (16:20)
[2023-10-09] MEDS: 0.9 % SODIUM CHLORIDE 1,000 ML 999 ML IV (16:20)
[2023-10-09] MEDS: METHYLPREDNISOLONE SOD SUCC PF 125 MG/2 ML VIAL IVP (16:20)
[2023-10-09 16:23] LABS: D Dimer 0.39 mg/L FEU (<=0.59); INR 0.98; Prothrombin Time 10.4 sec (9.0-11.6)
--- NOTE | 2023-10-09 16:47 | XR_ITS ---
The [address] [address] Patient Name: SHIRLEY MATHEW MRN: [id number] date: 1980 Sex: M Assigned Patient Location: ER Current Patient Location: ER Accession/Order Number: [id number] Exam Date: 10/09/2023 16:54 Report Date: 10/09/2023 17:09 At the request of: ART MOROCHO Procedure: XR chest 1V EXAM: XR chest 1V at 1649 hours HISTORY: Cough and shortness of breath for one day. COMPARISON: None. TECHNIQUE: AP upright portable chest x-ray FINDINGS: The heart appears borderline enlarged, which may be related to projection. The vasculature is not distended. No acute infiltrate, effusion or pneumothorax is identified. The osseous structures are grossly intact. XR/XR chest 1V IMPRESSION: The heart appears borderline enlarged without overt cardiac decompensation. A discrete infiltrate is not identified. Direct comparison with a previous study may be helpful in determining the chronicity of these findings. Electronically authenticated by: LINAD BANKS Date: 10/09/2023 17:09
[2023-10-09 17:00] LABS: Influenza Virus A Antigen Negative; Influenza Virus B Antigen Negative; Internal Control Within Normal Limits; Respiratory Syncytial Virus Not Detected (NOT DETECTE)
[2023-10-09 17:01] LABS: SARS-CoV-2 Ag NEGATIVE (NEGATIVE)
[2023-10-09 17:01] LABS: Alanine Aminotransferase 25 U/L (16-63); Albumin Globulin Ratio 0.9; Albumin Level 3.2 g/dL (3.4-5.0); Alkaline Phosphatase 72 U/L (46-116); Anion Gap 11.8; Aspartate Amino Transferase 14 U/L (15-37); BUN Creatinine Ratio 9.7; Bilirubin Total 0.4 mg/dL (0.2-1.0); Calcium 8.3 mg/dL (8.5-10.1); Carbon Dioxide 28.5 mmol/L (21.0-32.0); Chloride 101 mmol/L (98-107); Estimated GFR (African America >60 (>=60); Estimated GFR (Non-African Ame >60 (>=60); Globulin 3.6 g/dL; Glucose 227 mg/dL (74-106); Potassium 4.3 mmol/L (3.5-5.1); Sodium 137 mmol/L (136-145); Total Protein 6.8 g/dL (6.4-8.2); Troponin I High Sensitivity 23.6 pg/mL (4.0-76.1)
[2023-10-09] MEDS: ENALAPRILAT DIHYDRATE 1.25 MG/ML VIAL IV (17:08)
[2023-10-09] MEDS: LABETALOL HCL 20 MG/4 ML SYRINGE 10 MG IVP (17:09)
[2023-10-09 18:37] LABS: Lactate/Lactic Acid 1.7 mmol/L (0.4-2.0)
== END 2023-10-09 18:00 | disposition home or self-care (01) ==
PROVIDERS: Physician Assistant; Emergency Provider Emergency Medicine Emergency Medical Services
DX: J06.9 Acute upper respiratory infection, unspecified (principal); R06.02 Shortness of breath; Z20.822 Contact with and (suspected) exposure to COVID-19; F17.210 Nicotine dependence, cigarettes, uncomplicated; Z86.16 Personal history of COVID-19; Z79.899 Other long term (current) drug therapy
CPT/HCPCS: 36415; 71045; 80053; 83605; 83735; 83880; 84484; 85025; 85378; 85610; 87420; 87804; 87811; 93005; 94640; 96374; 96375; 99285; 99406; J2930

== ENCOUNTER 2024-04-17 19:39 | Emergency (ER) | payer SELFPAY ==
[2024-04-17 19:43] VITALS: BP 140/88; PULSE 97; TEMP 36.7; O2SAT 97; BMI 38.7
--- OUTSIDE RECORDS SUMMARY | 2024-04-17 19:50 | XMS_ITS | CCD ---
Author Organization [facility] Care Team Providers Care Business Services Tech Name Role Phone Rodrick Galdamez Primary Care Provider [phone] ARMAAN LEVI Referring Unavailable RODRICK GALDAMEZ Primary Care Unavailable MACIEL PRAJAPATI Consulting Unavailable KAMERON ENNIS Attending Unavailable KAMERON ENNIS Admitting Unavailable BOB YEUNG Consulting Unavailable ABHISHEK VANESSA Consulting Unavailable KULDIP, DR MORRISON Attending Unavailable BENJAMIN, DR STEVE LISTED Primary Care Unavaila peng STEWART, DR SORAYA Benz Consulting Unavailable KULDIP, DR MORRISON Admitting Unavailable EVI MOROCHO Consulting Unavailable Rodrick Galdamez DO Primary Care Provider [phone] LINETTE TAPIA Attending Unavailable RODRICK GLADAMEZ Primary Care Unavailable MICHEAL KWOK Attending Unavailable RODRICK GALDAMEZ Primary Care Unavailable HATTIE SHANE Primary Care Physician TAIWO MATHEWS Attending Unavailable TAIWO MATHEWS Referring Unavailable DAVID, ANNA Primary Care Unavailable TAIWO MATHEWS Attending Unavailable TAIWO MATHEWS Referring [facility]available [facility] Unavailable TAIWO MATHEWS Attending Unavailable DAVID, AMOL Referring Unavailable DAVID, ANNA Primary Care Unavailable [facility], ANNA Primary Care Physician NONE, XXXX Primary Care Physician Unavailab Vickie Carrasco Admitting Unavailable GHAZALMO HATTIE Primary Care Unavailable [place] PAN Consulting Unavailable Daron SIFUENTES Attending Unavailable [place] PAN Consulting Unavailable [place] PAN Consulting Unavailable Tan Dempsey Attending Unavailable [facility], ANNA Primary Care Unavailable John Saldana Attending Unavailable DAVIDAMOL Primary Care Unavailable Tan Dempsey Attending Unavailable Allergies Allergy Classification Reported Allergen(s) Allergy Type Date of Onset Reaction(s) Facility (2 sources) traMADol; Translations: [TRAMADOL] Drug Allergy [facility] Repository (1 source) No Known Medication Allergies; Translations: [No Known Medication Allergies] Propensity to adverse reactions (disorder) [facility] Repository Medications Current Medications Medication Drug Class(es) Dates Sig (Normalized) Sig (Original) acetaminophen 500 mg oral tablet (4 sources) Start: 06-07-2021 acetaminophen (TYLENOL) tablet 1,000 mg Start: 07-01-2019 take 2 tablets by mo uth three times daily acetaminophen (TYLENOL) 500 MG [...] days. 28 tablet 0 06/13/2019 06/20/2019 Active acetaminophen 325 mg / oxyCODONE hydrochloride 5 mg oral tablet (1 source) Opioid Agonist Start: 04-09-2024 End: 04-11-2024 Percocet 5 mg-325 mg oral tablet 1 tab(s), Oral, q6hr Pain 8-10 for 2 day(s), 8 tab(s), Refill(s) 0, [facility]/pharmacy #[id number], 177.1, cm, 04/09/24 12:59:00 EDT, Height/Length Dosing, 124.7, kg, 04/09/24 12:59:00 EDT, Weight Dosing Start Date: 04/09/24 Stop Date: 04/11/24 Status: Ordered ALPRAZolam 0.25 mg oral tablet (7 sources) [...] 0 Active amLODIPine 10 mg oral tablet (11 sources) Dihydropyridine Calcium Channel Navarro Start: 10-21-2023 take 1 tablet by mouth once daily amLODIPine 10 mg Tab 10 mg = 1 tab(s), Oral, Daily, Refills(s) 0 Start Date: 10/21/23 Status: Ordered Start: 06-11-2019 amLODIPine (NO RVASC) tablet 10 mg Start: 06-10-2019 End: 06-10-2019 take 5 mg by mouth once daily 5 mg, Oral, DAILY, First dose on Mon06/10/19 at 1300 Start: 06-07-2019 take 5 mg by mouth once daily 5 mg, Oral, DAILY, First dose on Mon06/07/19 at 0900 aspirin 81 mg delayed release oral tablet (3 sources) Platelet Aggregation Inhibitor, Nonsteroidal Anti-inflammatory Drug Start: 10-23-2023 take 1 tablet by mouth once daily aspirin 81 mg Oral EC Tab 81 mg = 1 tab(s), Oral, Daily, Refills(s) 0 Start Date: 10/23/23 Status: Ordered atorvastatin 40 mg oral tablet (3 sources) HMG-CoA Reductase Inhibitor Start: 10-23-2023 take 1 tablet by mouth at bedtime Lipitor 40 mg Tab 40 mg = 1 tab(s), Oral, Bedtime, # 30 tab(s), Refills(s) 1, Pharmacy: [facility]/pharmacy #[id number], 178, cm, 10/21/23 18:51:00 EDT, Height/Length Dosing, 120, kg, 10/21/23 18:51:00 EDT, Weight Dosing Start Date: 10/23/23 Status: Ordered benzonatate 100 mg oral capsule (3 sources) [...] days 21 capsule 0 06/13/2019 06/20/2019 Active doxycycline hyclate 100 mg oral capsule (3 sources) Tetracycline-class Drug Start: 10-23-2023 take 1 capsule by mouth twice daily doxycycline hyclate 100 mg Cap 100 mg = 1 cap(s), Oral, BID, # 14 cap(s), Refills(s) 0, Pharmacy: [facility]/pharmacy #[id number], 178, cm, 10/21/23 18:51:00 EDT, Height/Length Dosing, 120, kg, 10/21/23 18:51:00 EDT, Weight Dosing Start Date: 10/23/23 Status: Ordered 0.4 ml enoxaparin sodium 100 mg/ml prefilled [...] daily 60 tablet 0 06/06/2019 06/10/2019 Discontinued hydroCHLOROthiazide 12.5 mg / losartan potassium 100 mg oral tablet (3 sources) Thiazide Diuretic, Angiotensin 2 Receptor Navarro Start: 10-23-2023 hydrochlorothiazide-losartan 12.5 mg-100 mg oral tablet 1 tab(s), Oral, Daily, 90 tab(s), Refill(s) 0, [facility]/pharmacy #[id number], 178, cm, 10/21/23 18:51:00 EDT, Height/Length Dosing, 120, kg, 10/21/23 18:51:00 EDT, Weight Dosing Start Date: 10/23/23 Status: Ordered HYDROmorphone (DILAUDID) injection 0.25 mg (1 source) Start: 06-06-2019 HYDROmorphone (DILAUDID) injection 0.25 mg ibuprofen 200 mg oral tablet (3 sources) Nonsteroidal Anti-inflammator y Drug take 2 tablets by mouth every six hours as needed for pain ibuprofen (ADVIL;MOTRIN) 200 MG tablet Take 400 mg by mouth every 6 hours as needed for Pain 0 Active 100 ml magnesium sulfate 10 mg/ml injection (2 sources) Start: 06-06-2019 magnesium sulfate 1 g in dextrose 5% 100 mL IVPB metFORMIN hydrochloride 500 mg oral tablet (3 sources) Biguanide Start: 10-23-2023 take 1 tablet by mouth twice daily metformin 500 mg Tab 500 mg = 1 tab(s), Oral, BID, # 60 tab(s), Refills(s) 0, Pharmacy: [facility]/pharmacy #[id number], 178, cm, 10/21/23 18:51:00 EDT, Height/Length Dosing, 120, kg, 10/21/23 18:51:00 EDT, Weight Dosing Start Date: 10/23/23 Status: Ordered methocarbamol 750 mg oral tablet (1 source) Muscle Relaxant Start: 04-04-2024 End: 04-07-2024 take 1 tablet by mouth three times daily Robaxin-750 oral tablet 1,500 mg = 2 tab(s), Oral, TID, X 3 day(s), # 18 tab(s), Refills(s) 0, Pharmacy: [facility]/pharmacy #[id number], 177.1, cm, 04/04/24 12:32:00 EDT, Height/Length Dosing, 124.7, kg, 04/04/24 12:32:00 EDT, Weight Dosing Start Date: 04/04/24 Stop Date: 04/07/24 Status: Ordered methylPREDNISolone 4 mg oral tablet (2 sources) Corticosteroid Start: 06-09-2021 End: 06-15-2021 methylPREDNISolone (MEDROL, ADAIR,) 4 MG tablet Take by mouth. 1 kit 0 06/09/2021 06/15/2021 Active Start: 06-09-2021 End: 06-09-2021 methylPREDNISolone sodium (S AZAM-MEDROL) injection 125 mg metoprolol tartrate 50 mg oral tablet (13 sources) beta-Adrenergic Navarro Start: 10-21-2023 End: 10-23-2023 take 1 tablet by mouth twice daily Metoprolol tartrate 50 mg Tab 50 mg = 1 tab(s), Oral, BID, Refills(s) 0 Start Date: 10/21/23 Status: Ordered Start: 06-09-2019 metoprolol (LO PRESSOR) injection 5 mg Start: 06-06-2019 take 50 mg by mouth twice cindy y 50 mg, Oral, 2 TIMES DAILY, First dose on Mon06/10/19 at 1300 morphine (PF) injection 2 mg (1 source) Start: 06-12-2019 morphine (PF) injection 2 mg naproxen 500 mg oral tablet (4 sources) Nonsteroidal Anti-inflammatory Drug Start: 04-04-2024 take 1 tablet by mouth twice daily as needed for pain Naprosyn 500 mg Tab 500 mg = 1 tab(s), Oral, BID, PRN for pain, # 20 tab(s), Refills(s) 0, Pharmacy: [facility]/pharmacy #[id number], 177.1, cm, 04/04/24 12:32:00 EDT, Height/Length Dosing, 124.7, kg, 04/04/24 12:32:00 EDT, Weight Dosing Start Date: 04/04/24 Status: Ordered Start: 07-01-2019 take 1 tablet by [place] th twice daily at mealtime naproxen (NAPROSYN) 500 MG tablet Take 1 tablet by mouth 2 times daily (with meals) 60 tablet 0 07/01/2019 Active 24 hr nicotine 0.875 mg/hr transdermal system (1 source) Cholinergic Nicotinic Agonist Start: 06-08-2019 nicotine (NICODERM CQ) 21 MG/24HR 1 patch 24 hr NIFEdipine 90 mg extended release oral tablet (3 sources) Dihydropyridine Calcium Channel Navarro Start: 10-21-2023 take 1 tablet by mouth once daily NIFEdipine 90 mg ER Tab 90 mg = 1 tab(s), Oral, Daily, Refills(s) 0 Start Date: 10/21/23 Status: Ordered ondansetron 4 mg oral tablet (9 sources) [...] ride 10 mEq/100 mL IVPB (Peripheral Line) predniSONE 10 mg oral tablet (1 source) Start: 04-09-2024 predniSONE 10 mg Tab 0 = 1 -, Oral, As Directed, Take 5 tabs by mouth daily x3 days, 4 daily x3 days, 3 daily x3 days, 2 daily x3 days, then 1 tab daily x3 days., # 45 tab(s), Refills(s) 0, Pharmacy: [facility]/pharmacy #[id number], 177.1, cm, 04/09/24 12:59:00 EDT, Height/Length Dosing, 124.7, kg, 04/09/24 12:59:00 EDT, Weight Dosing Start Date: 04/09/24 Status: Ordered 3 ml sodium chloride 9 mg/ml injection (10 sources) Start: 06-12-2019 10 mL, Intrave nous, EVERY 12 HOURS SCHEDULED (2 times per day), First dose on Mon06/12/19 at 2100, Post-op Start: 06-12-2019 take 10 mL intravenous route o nce 10 mL, Intravenous, PRN, Line Care, Starting Mon06/12/19 at 1940 After every IV line use Post-op Start: 06-08-2019 End: 06-12-2019 sodium chloride flush 0.9 % injection 10 mL Start: 06-07-2019 End: 06-08-2019 0.9 % sodium chloride bolus Start: 06-06-2019 0.9 % sodium c hloride infusion Start: 06-06-2019 10 mL, Intrave nous, EVERY 12 HOURS SCHEDULED (2 times per day), First dose on Mon06/06/19 at 2330 Start: 06-06-2019 take 10 mL intraveno us route once as needed 10 mL, Intravenous, PRN, Line Care, After every IV line use, Starting Mon06/06/19 at 2302 Completed/Discontinued Medications Medication Drug Class(es) [...] Active Problems Problem Classification Problem Date Documented Date Episodic/Chronic Anxiety disorders (5 sources) Anxiety state; Translations: [Generalized anxiety disorder] Onset: 12-22-2017 12-22-2017 Chronic Chronic obstructive pulmonary disease and bronchiectasis (3 sources) Centrilobular emphysema; Translations: [Chronic obstructive lung disease] Onset: 12-21-2023 04-04-2024 Chronic Diabetes mellitus without complication (3 sources) Type 2 diabetes mellitus without complication; Translations: [Type 2 diabetes mellitus without complications] Onset: 10-22-2023 Chronic Diabetes mellitus without complication (1 source) Hyperglycemia; Translations: [Hyperglycemia, unspecified] Onset: 10-21-2023 Episodic Diseases of white blood cells (1 source) Leukocytosis; Translations: [Elevated white blood cell count, unspecified] Onset: 10-22-2023 Chronic Essential hypertension (14 sources) Essential hypertension; Translations: [Essential (primary) hypertension] Onset: 05-25-2015 05-25-2015 Chronic Fluid and electrolyte disorders (1 source) Hypo-osmolality and or hyponatremia; Translations: [Hypo-osmolality and hyponatremia] Onset: 10-22-2023 Episodic Other aftercare (1 source) Other penitentiary (current) drug therapy; Translations: [OTH ROUTE RELIEF DRIVER CURRENT DRUG THERAPY] Onset: 02-15-2021 Episodic Other aftercare (1 source) Long-term current use of drug therapy; Translations: [Other termite helper (current) drug therapy] Onset: 10-21-2023 Episodic Other circulatory disease (1 source) Elevated blood-pressure reading without diagnosis of hypertension; Translations: [Elevated blood-pressure reading, without diagnosis of hypertension] Onset: 10-21-2023 Episodic Other connective tissue disease (1 source) Ganglion of wrist; Translations: [Ganglion, unspecified wrist] Onset: 04-04-2024 Episodic Other lower respiratory disease (2 sources) Cough; Translations: [Cough] Onset: 10-21-2023 Episodic Other lower respiratory disease (2 sources) Dyspnea; Translations: [Shortness of breath] Onset: 12-21-2023 Episodic Other lower respiratory disease (2 sources) Shortness of breath; Translations: [Shortness of breath] Onset: 10-30-2023 Episodic Other lower respiratory disease (1 source) Chronic cough; Translations: [Chronic cough] Onset: 12-21-2023 Episodic Other lower respiratory disease (1 source) Solitary pulmonary nodule; Translations: [Solitary pulmonary nodule] Onset: 12-21-2023 Episodic Other nutritional; endocrine; and metabolic disorders (6 sources) Obesity; Translations: [Obesity, unspecified] Onset: 02-09-2015 02-09-2015 Chronic Other upper respiratory infections (1 source) Acute upper respiratory infection; Translations: [Acute upper respiratory infection, unspecified] Episodic Pancreatic disorders (not diabetes) (4 sources) Gallstone pancreatitis; Translations: [Biliary acute pancreatitis without necrosis or infection] 06-11-2019 Episodic Pneumonia (except that caused by tuberculosis or sexually transmitted disease) (1 source) Pneumonia; Translations: [Pneumonia, unspecified organism] Onset: 10-21-2023 Episodic Residual codes; unclassified (1 source) Obstructive sleep apnea (adult) (pediatric); Translations: [Obstructive sleep apnea (adult) (pediatric)] Onset: 12-21-2023 Chronic Residual codes; unclassified (1 source) Tobacco user; Translations: [Tobacco use] Onset: 10-21-2023 Episodic Screening and history of mental health and substance abuse codes (3 sources) Tobacco use and exposure - finding 10-21-2023 Chronic Septicemia (except in labor) (1 source) Sepsis; Translations: [Sepsis, unspecified organism] Onset: 10-21-2023 Episodic Skin and subcutaneous tissue infections (1 source) Abscess of skin and/or subcutaneous tissue; Translations: [Cutaneous abscess, unspecified] Onset: 10-21-2023 Episodic Spondylosis; intervertebral disc disorders; other back problems (5 sources) Low back pain; Translations: [Cervical radiculopathy] Onset: 02-11-2021 Episodic Substance-related disorders (10 sources) Smoker; Translations: [Nicotine dependence, cigarettes, uncomplicated] Onset: 02-09-2015 02-09-2015 Chronic Comment on above: Added secondary to d ocumentation in Social History. Unclassified (1 source) Patient encounter status; Translations: [Surgery, elective] Unclassified (1 source) Cough, unspecified; Translations: [Cough, unspecified] Onset: 10-30-2023 Unclassified (1 source) New Patient Onset: 12-21-2023 Past or Other Problems Problem Classification Problem [...] chest pain] Onset: 12-22-2017 12-22-2017 Episodic Other screening for suspected conditions (not mental disorders or infectious disease) (3 sources) Liver function tests abnormal; Translations: [Blood chemistry abnormal] Onset: 10-21-2023 Episodic Other skin disorders (4 sources) Decorative tattoo; Translations: [Other specified disorders of pigmentation] Onset: 06-08-2019 06-08-2019 Episodic Results Test Name Value Interpretation Reference Range Facility ED Note-Physicianon 04-12-20 ED Note-Physician ED Note-Physician Basic Information Time Seen: Jamey RUSHING, Nadine Howard 04/09/2024 12:56 Chief Complaint Pt having L arm pain for awhile now. Was here about 4 days ago and states pain is getting worse. States now radiating into chest. History of Present Illness Patient is a 43-year-old male with a history of hypertension, smoking, COPD, and diabetes who presents to the ED with worsening left arm pain and paresthesia that began 1 week ago. Patient states he was seen in the ED 4 days ago in which he was told it was suspected his symptoms were associated with his ganglion cyst. Patient notes his ganglion cyst has been present for 10 years and has not grown in size, stating he does not believe this is the source of the symptoms. Patient states the pain and paresthesia began in his left second and third fingers but have since radiated up his arm into his shoulder and chest. Patient denies worsening shortness of breath. He states it feels like he has a broken bone but denies any recent trauma or injury. Patient notes the pain is worst with active range of motion and improved with immobilization. He states he has been taking naproxen and Robaxin with no relief in symptoms. Patient denies a personal history of cardiovascular disease. Review of Systems A 10 point review of systems is negative except as noted above. Medical and Surgical History: Reviewed and noted Social history: Lives at home Family History: Reviewed. Tobacco: Use Physical Exam Vitals & Measurements T: 36.7 ?C(Oral) HR: 78(Peripheral) RR: 16 BP: 200/130 SpO2: 99% HT: 177.1 cm WT: 124.7 kg BMI: 39.76 General: The patient appears well and in no apparent distress. Patient is resting comfortably on cart. Skin: Warm, dry, no pallor noted. 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 No rebound or rigidity. No guarding. No tenderness. Neurological: A&O moves all extremities equal strength and symmetry Psychiatric: Cooperative and appropriate Procedure Heart Score for Major Cardiac Event History: Example factors for history - pattern of chest pain, onset, duration, relation with exercise, stress or cold, localization, concomitant symptoms. reaction to sublingual nitrates, [] Highly suspicious +2 [] Moderately suspicious +1 [x] Slightly suspicious 0 EKG: [] Significant ST-Depression +2 [x] Non specific repolarization disturbance +1 [] Normal 0 Age: [] >= 65 +2 [] 45-65 + 1 [x] <45 0 Risk Factors: (HLD, HTN, DM, Cigarette Smoking, Pos Family Hx, Obesity) [x] >3 risk factors or hx of atherosclerotic disease + 2 [] 1-2 risk factors + 1 [] No risk factors known 0 Troponin: [] >= 3X normal + 2 [] 1-3X normal + 1 [x] <= Normal 0 [x] 0-3 Points 0.9 - 1.7% risk of major adverse cardiac event in 6 weeks [] 4-6 Points 12-16.6% risk of major adverse cardiac event in 6 weeks [] 7-10 Points 50-65% risk of major adverse cardiac event in 6 weeks [x] 0-3 Points with 2 sets of negative cardiac markers <1% risk of major adverse cardiac event in 30 days. Medical Decision Making Patient is a 43-year-old male with a history of hypertension, smoking, COPD, and diabetes who presents to the ED with worsening left arm pain and paresthesia that began 1 week ago. Patient is afebrile. He is given fluids, Zofran, and morphine while in the ED. Heart score is 3. EKG shows sinus rhythm with a rate of 78 bpm. Lab work is reviewed and noted. Patient had 2 negative troponins. Chest x-ray shows no acute cardiopulmonary abnormalities. CT cervical spine shows straightening of the normal cervical lordosis is likely related to patient positioning and/or muscle spasm, but is otherwise negative. Patient was updated on the results. He is being given a prescription for prednisone for the radiculopathy. He notes he has used naproxen and Tylenol with no relief in symptoms, thus he is being given prescribed 7 tablets of Percocet. Patient was given information to become established with a primary care provider for further management of care. He was advised to return to the ED with any worsening symptoms. Patient and are agreeable with the plan and all questions were answered. Assessment/Plan Radiculopathy of cervical region (M54.12: Radiculopathy, cervical region) (more content not included)... Normal [facility] Comment on above: Result Comment: Elec tronically Signed By: Jamey RUSHING, Nadine Howard\.br\Date and Time Signed: 04/09/24 15:57 EDT\.br\Electronically Co-Signed By: Tan Dempsey DO\.br\Date and Time Co-Signed: 04/12/24 07:32 EDT BMPon 04-09-2024 Anion gap [Moles/Vol] 11 mmol/L Normal 6-16 [facility] Comment on above: Performed By: #### 2 [id number] #### [facility] [address] [place] [address] Calcium [Mass/Vol] 9.2 mg/dL Normal 8.9-11.1 [facility] Comment on above: Performed By: #### 2 [id number] #### [facility] [address] [place] [address] Chloride [Moles/Vol] 100 mmol/L Low 101-111 [facility] Comment on above: Performed By: #### 2 [id number] #### [facility] [address] [place] [address] CO2 [Moles/Vol] 26 mmol/L Normal 21-31 [facility] Comment on above: Performed By: #### 2 [id number] #### [facility] [address] [place] [address] Creatinine [Mass/Vol] 0.7 mg/dL Normal 0.5-1.3 [facility] Comment on above: Performed By: #### 2 [id number] #### [facility] [address] [place] [address] Glucose [Mass/Vol] 147 mg/dL Normal 55-199 [facility] Comment on above: Performed By: #### 2 [id number] #### [facility] [address] [place] [address] Potassium [Moles/Vol] 3.9 mmol/L Normal 3.5-5.3 [facility] Comment on above: Performed By: #### 2 [id number] #### [facility] [address] [place] [address] Sodium [Moles/Vol] 133 mmol/L Low 135-145 [facility] Comment on above: Performed By: #### 2 [id number] #### [facility] [address] [place] [address] Urea nitrogen [Mass/Vol] 10 mg/dL Normal 5-21 [facility] Comment on above: Performed By: #### 2 [id number] #### [facility] [address] [place] [address] Urea nitrogen/Creatinine [Mass ratio] 14 No Units Normal 10-20 [facility] Comment on above: Performed By: #### 2 [id number] #### [facility] [address] [place] [id number] CBC w/ Auto Diffon 4 Basophils/100 WBC (Bld) 1.1 % Normal 0.0-2.0 [facility] Comment on above: Performed By: #### 2 [id number] #### [facility] [address] [place] [address] Basophils/Leukocytes Auto (Bld) [Pure # fraction] 0.1 E9/L Normal 0.0-0.2 [facility] Comment on above: Performed By: #### 2 [id number] #### [facility] [address] [place] [address] Eosinophils (Bld) [#/Vol] 0.2 E9/L Normal 0.0-0.5 [facility] Comment on above: Performed By: #### 2 [id number] #### [facility] [address] [place] [address] Eosinophils/100 WBC (Bld) 1.8 % Normal 0.0-8.0 [facility] Comment on above: Performed By: #### 2 [id number] #### [facility] [address] [place] [address] Erythrocyte distribution width (RBC) [Ratio] 14.1 % Normal 10.9-14.2 [facility] Comment on above: Performed By: #### 2 [id number] #### [facility] [address] [place] [address] Hematocrit (Bld) [Volume fraction] 43.9 % Normal 37.7-49.0 [facility] Comment on above: Performed By: #### 2 [id number] #### [facility] [address] [place] [address] Hemoglobin (Bld) [Mass/Vol] 15.2 g/dL Normal 13.5-17.5 [facility] Comment on above: Performed By: #### 2 [id number] #### [facility] [address] [place] [address] Lymphocytes (Bld) [#/Vol] 2.9 E9/L Normal 1.0-4.0 [facility] Comment on above: Performed By: #### 2 [id number] #### [facility] [address] [place] [address] Lymphocytes/100 WBC (Bld) 23.3 % Normal 14.0-50.0 [facility] Comment on above: Performed By: #### 2 [id number] #### [facility] [address] [place] [address] MCH (RBC) [Entitic mass] 29.0 pg Normal 27.0-34.0 [facility] Comment on above: Performed By: #### 2 [id number] #### [facility] [address] [place] [address] MCHC (RBC) [Mass/Vol] 34.6 g/dL Normal 31.4-36.0 [facility] Comment on above: Performed By: #### 2 [id number] #### [facility] [address] [place] [address] MCV (RBC) [Entitic vol] 83.8 fL Normal 80.0-100.[address] [facility] Comment on above: Performed By: #### 2 [id number] #### [facility] [address] [place] [address] Monocytes (Bld) [#/Vol] 0.7 E9/L Normal 0.2-1.0 [facility] Comment on above: Performed By: #### 2 [id number] #### [facility] [address] [place] [address] Neutrophils (Bld) [#/Vol] 8.4 E9/L High 2.0-7.5 [facility] Comment on above: Performed By: #### 2 [id number] #### [facility] [address] [place] [address] Neutrophils/100 WBC (Bld) 68.2 % Normal 36.0-75.0 [facility] Comment on above: Performed By: #### 2 [id number] #### [facility] [address] [place] [address] Platelet 283.0 E9/L Normal 150.0-500.0 [facility] Comment on above: Performed By: #### 2 [id number] #### [facility] [address] [place] [address] Platelet mean volume (Bld) [Entitic vol] 9.4 fL Normal 6.4-10.8 [facility] Comment on above: Performed By: #### 2 [id number] #### [facility] [address] [place] [address] RBC (Bld) [#/Vol] 5.2 E12/L Normal 4.3-5.9 [facility] Comment on above: Performed By: #### 2 [id number] #### [facility] [address] [place] [address] WBC corrected for nucl RBC Auto (Bld) [#/Vol] 12.3 E9/L High 4.0-11.0 [facility] Comment on above: Performed By: #### 2 [id number] #### [facility] [address] [place] [address] CHEMISTRYOrdered By: SYSTEM SYSTEM on 04-09-2024 Troponin HS 7.00 pg/mL Low 15.90 - 38.40 pg/mL [facility] Comment on above: Interpretive Data: T he 95% CI (Confidence Interval) PPV (Positive Predictive Value) for myocardial infarction in females is 38 pg/mL, in males 51 pg/mL. The results should be used in conjunction with clinical conditions of myocardial infarction. (Access High Sensitivity Troponin I Instructions For Use, [employer], March 2018) Anion gap [Moles/Vol] 11 mmol/L Normal 6 - 16 mEq/L R emisol Chem Calcium [Mass/Vol] 9.2 mg/dL Normal 8.9 - 11. 1 mg/dL Remisol Chem Chloride [Moles/Vol] 100 mmol/L Low 101 - 1 11 mmol/L Remisol Chem CO2 [Moles/Vol] 26 mmol/L Normal 21 - 31 mmol/L Remisol Chem Creatinine [Mass/Vol] 0.7 mg/dL Normal 0.5 - 1.3 mg/dL Remisol Chem CRP [Mass/Vol] 0.8 mg/dL Normal <=1.9mg/dL Remisol Ch em eGFR 118 mL/min/1.73 m2 Normal >=59mL/mi n/1. 73 m2 Remisol Chem Glucose [Mass/Vol] 147 mg/dL Normal 55 - 199 mg/dL Remisol Chem Magnesium [Mass/Vol] 1.8 mg/dL Normal 1.3 - 2 .4 mg/dL Remisol Chem Potassium [Moles/Vol] 3.9 mmol/L Normal 3.5 - 5.3 mmol/L Remisol Chem Sodium [Moles/Vol] 133 mmol/L Low 135 - 145 mmol/L Remisol Chem Troponin HS 7.00 pg/mL Low 15.90 - 38.40 pg/mL [facility] Comment on above: Interpretive Data: T he 95% CI (Confidence Interval) PPV (Positive Predictive Value) for myocardial infarction in females is 38 pg/mL, in males 51 pg/mL. The results should be used in conjunction with clinical conditions of myocardial infarction. (Access High Sensitivity Troponin I Instructions For Use, [employer], March 2018) Urea nitrogen [Mass/Vol] 10 mg/dL Normal 5 - 21 mg/dL Remisol Chem Urea nitrogen/Creatinine [Mass ratio] 14 mg/mg Normal 10 - 20 Remisol Chem COAGULATIONOrdered By: Yash Jarrett on 04-09-2024 aPTT Coag (PPP) [Time] 33.9 s Normal 25.1 - 36.5 second(s) [facility] Comment on above: Interpretive Data: P arameter 15 days - 4 weeks 1 - 5 months 6 - 11 months 1 - 5 years 6 - 10 years 11 - 17 years PTT Mean: 35.4 (27.6-45.6) Mean: 33.5 (24.8-40.7) Mean: 32.4 (25.1-40.7) Mean: 31.6 (24.0-39.2) Mean: 31.6 (26.9-38.7) Mean: 31.0 (24.6-38.4) Pediatric Reference ranges were obtained from a study by Gustavo Rey et al. prepared from 1437 samples obtained at 7 different centers using the same coagulation reagent and instrumentation as [facility]. Currently there are no coagulation studies available worldwide for children to 14 days, and no normal ranges. Heparin therapeutic range (represented by Anti-Factor Xa activity of 0.2 - 0.4 U/mL) corresponds to PTT of 56.6 - 109.0 sec. INR Coag (PPP) [Relative time] 1.02 {INR} Invalid Interpretation Code [facility] Comment on above: Interpretive Data: I NR results are specifically intended to assess patients stabilized on long-term Anticoagulation therapy suggested INR s Less Intensive Anticoagulation 2.0 3.0 Conventional Range 3.0 4.5 PT Coag (PPP) [Time] 11.4 s Normal 9.4 - 1 2.5 second(s) [facility] Comment on above: Interpretive Data: 1 5 days - 4 weeks 1 - 5 months 6 -11 months 1 5 years 6 10 years 11 -17 years Mean: 11.2 (9.5 12.6) Mean: 11.0 (9.7 12.8) Mean: 11.0 (9.8 13.0) Mean: 11.3 (9.9 13.4) Mean: 11.7 (10.0 14.6) Mean: 11.8 (10.0 - 14.1) Pediatric Reference ranges were obtained from a study by marina Cabello alFabiola prepared from 1437 samples obtained at 7 different centers using the same coagulation reagent and instrumentation as [facility]. Currently there are no coagulation studies available worldwide for children to 14 days, and no normal ranges. CRPon 04-09-2024 CRP [Mass/Vol] 0.8 mg/dL Normal <=1.9 [facility] Comment on above: Performed By: #### 2 [id number] #### [facility] [address] [place] [address] Spine Cervical w/o Contra stosantana 04-09-2024 CT Spine Cervical w/o Contrast Exam Date/Time: 04/09/2024 13:38 EDT Reason for Exam: Radiculopathy Report IMPRESSION: ESSENTIALLY NEGATIVE CERVICAL SPINE CT. EXAM: CT Spine Cervical w/o Contrast DATE: 04/09/2024 1:21 PM CLINICAL HISTORY: Radiculopathy. COMPARISON: None available. TECHNIQUE: Spiral unenhanced images were obtained of the cervical spine, with routine reconstructions performed. All CT scans at this facility use dose modulation, iterative reconstruction, and/or weight based dosing when appropriate to reduce radiation dose to as low as reasonably achievable. FINDINGS: The spine is visualized from the craniovertebral junction through the T1-T2 level. There is no fracture, dislocation, significant degenerative changes, central spinal stenosis, neural foraminal narrowing, sizable disc herniation, acute or significant paraspinal soft tissue abnormalities identified. Straightening of the normal cervical lordosis is likely related to patient positioning and/or muscle spasm Ordering Provider: Nadine Concepcion FINAL REPORT Dictated: 04/09/2024 1:52 pm Nathen Louie MD Signed (Electronic Signature): 04/09/2024 1:52 pm Signed by: Nathen Louie MD Transcribed by: ALEJANDRA Technologist: ANA [facility] ED Clinical Summaryon 2023 ED Clinical Summary ED Clinical Summary [address] [address] ED Clinical Summary Person Information Name: DEVON MATHEW/[place] Age: 43 Years : 1980 Sex: Male Language: Sri Lankan PCP: NONE, XXXX Marital Status: Single Visit Id: Visit Reason: Chest pain; Arm pain-swelling; LEFT ARM PAIN Speciality: Acuity: 3 Enc Type: Emergency Med Service: Emergency Arrival: 04/09/2024 12:49:26 Discharge: 04/09/2024 16:16:58 LOS: 000 03:27 Checkin: 04/09/2024 12:49:26 Checkout: 04/09/2024 16:16:58 Dispo Type: Home (Routine DC) EVENTS: Event Name Event Status Request Date/Time Start Date/Time Complete Date/Time Arrive Complete 04/09/2024 12:49:26 04/09/2024 12:49:26 04/09/2024 12:49:26 Document Home Meds Request 04/09/2024 12:49:26 Triage Complete 04/09/2024 12:49:26 04/09/2024 12:59:21 04/09/2024 12:59:21 Bed Assign Complete 04/09/2024 12:52:23 04/09/2024 12:52:23 04/09/2024 12:52:23 Dr Exam Complete 04/09/2024 12:52:23 04/09/2024 12:56:46 04/09/2024 12:56:46 RN Exam Complete 04/09/2024 12:52:23 04/09/2024 15:08:09 04/09/2024 15:08:09 Registration Complete 04/09/2024 12:56:46 04/09/2024 12:59:49 04/09/2024 13:29:11 EKG Complete 04/09/2024 12:56:56 04/09/2024 13:03:10 Dr Exam Complete 04/09/2024 12:58:23 04/09/2024 12:58:23 04/09/2024 12:58:23 Isolation Screening Request 04/09/2024 12:59:22 Meds Admin Complete 04/09/2024 13:12:39 04/09/2024 13:30:56 Pending Labs Complete 04/09/2024 13:12:39 04/09/2024 15:49:05 Lab Complete 04/09/2024 13:12:39 04/09/2024 14:13:06 Patient Care Request 04/09/2024 13:12:39 X-Ray Complete 04/09/2024 13:12:39 04/09/2024 13:29:33 04/09/2024 13:45:24 CT Complete 04/09/2024 13:12:39 04/09/2024 13:21:28 04/09/2024 13:38:41 Reg Complete Request 04/09/2024 13:29:11 Reg Bed Request Complete 04/09/2024 13:29:11 04/09/2024 13:29:11 04/09/2024 13:29:11 Pending Labs Complete 04/09/2024 13:31:09 04/09/2024 13:31:09 04/09/2024 14:13:06 Lab Complete 04/09/2024 13:31:09 04/09/2024 13:31:09 04/09/2024 14:13:06 Wet Read Complete 04/09/2024 13:45:24 04/09/2024 13:49:03 04/09/2024 13:49:03 Meds Admin Complete 04/09/2024 14:24:10 04/09/2024 15:04:21 Discharge Complete 04/09/2024 15:53:29 04/09/2024 16:17:04 04/09/2024 16:17:04 Transfer Complete 04/09/2024 16:17:04 04/09/2024 16:17:04 04/09/2024 16:17:04 ADDRESS: [address] [place] [id number] PHYS DOC NOTES: MEDICAL INFORMATION: Prescriptions Given: New Medications [id number], [address] [place], [place] [id number], [phone] acetaminophen-oxycodo ne (Percocet 5 mg-325 mg oral tablet) 1 Tablets By Mouth every 6 hours as needed Pain 8-10 for 2 Days. Refills: 0. predniSONE (predniSONE 10 mg Tab) 1 Dose Separtor By Mouth As Directed. Take 5 tabs by mouth daily x3 days, 4 daily x3 days, 3 daily x3 days, 2 daily x3 days, then 1 tab daily x3 days.. Refills: 0. Medications to Continue with No Changes Other Medications amlodipine (amLODIPine 10 mg Tab) 1 Tablets By Mouth every day. aspirin (aspirin 81 mg Oral EC Tab) 1 Tablets By Mouth every day. atorvastatin (Lipitor 40 mg Tab) 1 Tablets By Mouth at bedtime. Refills: 1. doxycycline (doxycycline hyclate 100 mg Cap) 1 Capsules By Mouth 2 times a day. Refills: 0. hydrochlorothiazide-l osartan (hydrochlorothiazide- losartan 12.5 mg-100 mg oral tablet) 1 Tablets By Mouth every day. Refills: 0. metformin (metformin 500 mg Tab) 1 Tablets By Mouth 2 times a day. Refills: 0. metoprolol (Metoprolol tartrate 50 mg Tab) 1 Tablets By Mouth 2 times a day. naproxen (Naprosyn 500 mg Tab) 1 Tablets By Mouth 2 times a day as needed for pain. Refills: 0. NIFEdipine (NIFEdipine 90 mg ER Tab) 1 Tablets By Mouth every day. PATIENT EDUCATION INFORMATION: Instructions: Cervical Radiculopathy, Btfp-of-Uopw Follow up: With: Address: When: Anuradha Yolette [address] [place] [address], [address] [address] Business () In 3 days 04/12/2024 Comments: Call to schedule a follow-up appointment with the family physician for further management of care. Use the Percocet as needed for pain management. Take the prednisone as prescribed. Return to the ED with any worsening symptoms. DIAGNOSIS: Radiculopathy of cervical region Normal [facility] ED Patient Summaryon 024 ED Patient Summary ED Patient Summary [address] [address] Patient Discharge Instructions Person Information Name: DEVON MATHEW Age: 43 Years Arrival Date: 04/09/2024 12:49:26 Discharge Diagnosis: Radiculopathy of cervical region Primary Care Physician: NONE, XXXX Provider Information Primary Provider: Tan Dempsey DO Advanced Manager Of Compliance:Nadine Concepcion PA-C The exam and treatment you received in the Emergency Department were for an urgent problem and are not intended as complete care. It is important that you follow up with a doctor, nurse practitioner, or physician?s recruiting assistant for ongoing care. If your symptoms become worse or you do not improve as expected and you are unable to reach your usual health care provider, you should return to the Emergency Department. We are available 24 hours a day. DEVON MATHEW has been given the following list of patient education materials, prescriptions and follow-up instructions: Follow-up Instructions: With: Address: When: [address] [place] [address] Business (1) In 3 days 04/12/2024 Comments: Call to schedule a follow-up appointment with the family physician for further management of care. Use the Percocet as needed for pain management. Take the prednisone as prescribed. Return to the ED with any worsening symptoms. In the event that this physician does not participate in your insurance network, please consult with your insurance company to find a nearby participating provider. Patient Education Materials: Cervical Radiculopathy, Jyez-iw-Oums A MESSAGE TO ALL PATIENTS REGARDING OPIOIDS PRESCRIPTION OPIOIDS: WHAT YOU NEED TO KNOW Prescription opioids can be used to help relieve ghqplimq-yj-scwwri pain and are often prescribed following a surgery or injury, or for certain health conditions. These medications can be an important part of the treatment but also come with serious risks. It is important to work with your healthcare provider to make sure you are getting the safest, most effective care. WHAT ARE THE RISKS AND SIDE EFFECTS OF OPIOID USE? Prescription opioids carry serious risks of addiction and overdose, especially with prolonged use. An opioid overdose, often marked by slowed breathing, can cause sudden . The use of prescription opioids can have a number of side effects as well, even when taken as directed: ? Tolerance?meaning you might need to take more of the medication for the same pain relief ? Physical dependence?meaning you have symptoms of withdrawal when a medication is stopped ? Increased sensitivity to pain ? Constipation ? Nausea, vomiting, and dry mouth ? Sleepiness and dizziness ? Confusion ? Depression ? Low levels of testosterone that can result in lower sex drive, energy, and strength ? Itching and sweating RISKS ARE GREATER WITH: ? History of drug misuse, substance use disorder, or overdose ? Mental health conditions (such as depression or anxiety) ? Sleep apnea ? Older age (65 years and older) ? Avoid alcohol while taking prescription opioids. Also, unless specifically advised by your health care provider, medications to avoid include: ? Benzodiazepines (such as Xanax or Valium) ? Muscle relaxants (such as Soma or Flexeril) ? Hypnotics (such as Ambien or Lunesta) ? Other prescription opioids KNOW YOUR OPTIONS Talk to your health care provider about ways to manage your pain that don?t involve prescription opioids. Some of these options may actually work better and have fewer risks and side effects. Options may include: ? Pain relievers such as acetaminophen, ibuprofen, and naproxen ? Some medication that are also used for depression or seizures ? Physical therapy and exercise ? Cognitive behavioral therapy, a psychological, goal-directed approach, in which patients learn how to modify physical, behavioral, and emotional triggers of pain and stress. IF YOU ARE PRESCRIBED OPIOIDS FOR PAIN: ? Never take opioids in greater amounts or more often than prescribed. ? Follow up with your primary health care provider. o Work together to create a plan on how to manage your pain. o Talk about ways to help manage your pain that don?t involve prescription opioids. o Talk about any and all concerns and side effects. ? Help prevent misuse and abuse o Never sell or share prescription opioids. o Never use another person?s prescription opioids. ? Store prescription opioids in a secure place and out of reach of others (this may include visitors, children, friends, and family). ? Safely dispose of unused prescription opioids: Find your community drug take-back program or your pharmacy mail-back program, or flush them down the toilet, following guidance from the Food and Drug Administration (www.fda.gov/Drugs/Re sourcesFor (more content not included)... Normal [facility] HEMATOLOGYOrdered By: SYSTEM SYSTEM on 04-09-2024 Basophils/100 WBC (Bld) 1.1 % Normal 0.0 - 2.0 % Remisol Heme Basophils/Leukocytes Auto (Bld) [Pure # fraction] 0.1 E9/L Normal 0.0 - 0.2 E9/L Remisol Heme Eosinophils (Bld) [#/Vol] 0.2 E9/L Normal 0.0 - 0.5 E9/L Remisol Heme Eosinophils/100 WBC (Bld) 1.8 % Normal 0.0 - 8.0 % Remisol Heme Erythrocyte distribution width (RBC) [Ratio] 14.1 % Normal 10.9 - 14.2 % Remisol Heme Hematocrit (Bld) [Volume fraction] 43.9 % Normal 37.7 - 49.0 % Remisol Heme Hemoglobin (Bld) [Mass/Vol] 15.2 g/dL Normal 13.5 - 17.5 gm/dL Remisol Heme Lymphocytes (Bld) [#/Vol] 2.9 E9/L Normal 1.0 - 4.0 E9/L Remisol Heme Lymphocytes/100 WBC (Bld) 23.3 % Normal 14.0 - 50.0 % Remisol Heme MCH (RBC) [Entitic mass] 29.0 pg Normal 27.0 - 34.0 pg Remisol Heme MCHC (RBC) [Mass/Vol] 34.6 g/dL Normal 31.4 - 36.0 gm/dL Remisol Heme MCV (RBC) [Entitic vol] 83.8 fL Normal 80.0 - 100.0 fL Remisol Heme Monocytes (Bld) [#/Vol] 0.7 E9/L Normal 0.2 - 1.0 E9/L Remisol Heme Monocytes/100 WBC (Bld) 5.6 % Normal 4.0 - 14.0 % Remisol Heme Neutrophils (Bld) [#/Vol] 8.4 E9/L High 2.0 - 7.5 E9/L Remisol Heme Neutrophils/100 WBC (Bld) 68.2 % Normal 36.0 - 75.0 % Remisol Heme Platelet 283.0 E9/L Normal 150.0 - 500.0 E9/L Remisol Heme Platelet mean volume (Bld) [Entitic vol] 9.4 fL Normal 6.4 - 10.8 fL Remisol Heme RBC (Bld) [#/Vol] 5.2 E12/L Normal 4.3 - 5.9 E12/L Remisol Heme WBC corrected for nucl RBC Auto (Bld) [#/Vol] 12.3 E9/L High 4.0 - 11.0 E9/L Remisol Heme HEMATOLOGYOrdered By: Moe Jarrett on 04-09-2024 ESR (Bld) [Velocity] 9 mm/h Normal 0 - 19 mm/hr FT HemeAutoSS Magnesiumon 04-09-2024 Magnesium [Mass/Vol] 1.8 mg/dL Normal 1.3-2.4 [facility] Comment on above: Performed By: #### 2 [id number] #### [facility] [address] [place] [address] PT & PTTon 04-09-2024 aPTT Coag (PPP) [Time] 33.9 second(s) Normal 25.1-36.5 [facility] Comment on above: Result Comment: Para meter 15 days - 4 weeks 1 - 5 months 6 - 11 months 1 - 5 years 6 - 10 years 11 - 17 years PTT Mean: 35.4 (27.6-45.6) Mean: 33.5 (24.8-40.7) Mean: 32.4 (25.1-40.7) Mean: 31.6 (24.0-39.2) Mean: 31.6 (26.9-38.7) Mean: 31.0 (24.6-38.4) Pediatric Reference ranges were obtained from a study by Gustavo Rey et al. prepared from 1437 samples obtained at 7 different centers using the same coagulation reagent and instrumentation as [facility]. Currently there are no coagulation studies available worldwide for children to 14 days, and no normal ranges. Heparin therapeutic range (represented by Anti-Factor Xa activity of 0.2 - 0.4 U/mL) corresponds to PTT of 56.6 - 109.0 sec. Performed By: #### 1 [id number] #### [facility] [address] [place] [address] INR Coag (PPP) [Relative time] 1.02 {INR} Invalid Interpretation Code [facility] Comment on above: Result Comment: INR results are specifically intended to assess patients stabilized on long-term Anticoagulation therapy suggested INR?s ?Less Intensive Anticoagulation? 2.0 ? 3.0 Conventional Range 3.0 ? 4.5 Performed By: #### 1 [id number] #### [facility] [address] [place] [address] PT Coag (PPP) [Time] 11.4 second(s) Normal 9.4-12.5 [facility] Comment on above: Result Comment: 15 d ays - 4 weeks 1 - 5 months 6 -11 months 1 ? 5 years 6 ? 10 years 11 -17 years Mean: 11.2 (9.5 ? 12.6) Mean: 11.0 (9.7 ? 12.8) Mean: 11.0 (9.8 ? 13.0) Mean: 11.3 (9.9 ? 13.4) Mean: 11.7 (10.0 ? 14.6) Mean: 11.8 (10.0 - 14.1) Pediatric Reference ranges were obtained from a study by Gustavo Rey et al. prepared from 1437 samples obtained at 7 different centers using the same coagulation reagent and instrumentation as [facility]. Currently there are no coagulation studies available worldwide for children to 14 days, and no normal ranges. Performed By: #### 1 [id number] #### [facility] [address] [place] [address] Sed Rate Automatedon 024 ESR (Bld) [Velocity] 9 mm/h Normal 0-[address] [facility] Comment on above: Performed By: #### 1 [id number] #### [facility] [address] [place] [address] Troponin 0 Hr.on 04-09-2024 Troponin HS 7.00 pg/mL Low 15.90-38.40 [facility] Comment on above: Result Comment: The 95% CI (Confidence Interval) PPV (Positive Predictive Value) for myocardial infarction in females is 38 pg/mL, in males 51 pg/mL. The results should be used in conjunction with clinical conditions of myocardial infarction. (Access High Sensitivity Troponin I Instructions For Use, [employer], March 2018) Performed By: #### 1 [id number] #### [facility] [address] [place] [address] Troponin 1 Hr.on 04-09-2024 Troponin HS 7.00 pg/mL Low 15.90-38.40 [facility] Comment on above: Order Comment: Due a t 1431 Result Comment: The 95% CI (Confidence Interval) PPV (Positive Predictive Value) for myocardial infarction in females is 38 pg/mL, in males 51 pg/mL. The results should be used in conjunction with clinical conditions of myocardial infarction. (Access High Sensitivity Troponin I Instructions For Use, [employer], March 2018) Performed By: #### 1 [id number] #### [facility] [address] [place] [address] XR Chest Single Viewon 04-09 XR Chest Single View Exam Date/Time: 04/09/2024 13:45 EDT Reason for Exam: Chest pain Report IMPRESSION: No acute findings by portable radiography. EXAMINATION: XR Chest Single View Clinical History: Chest pain Comparison: 10/21/2023. RESULT: No consolidation. No pleural effusion. No pneumothorax. Normal cardiomediastinal silhouette. No acute osseous findings. Ordering Provider: Nadine Concepcion FINAL REPORT Dictated: 04/09/2024 3:04 pm Houston Sequeira MD Signed (Electronic Signature): 04/09/2024 3:04 pm Signed by: Houston Sequeira MD Transcribed by: ALEJANDRA Technologist: DIANE Technical Comments Radiation Dose: Ka,r in mGy = na DAP = na Normal [facility] eGFRon 04-09-2024 eGFR 118 mL/min/1.73 m2 Normal >=59 [facility] Comment on above: Order Comment: Order added by Discern Expert. Performed By: #### 1 [id number] #### [facility] [address] [place] [address] ED Clinical Summaryon 2023 ED Clinical Summary ED Clinical Summary [address] [address] ED Clinical Summary Person Information Name: DEVON MATHEW/[facility] Age: 43 Years : 1980 Sex: Male Language: Sri [place]ankan PCP: AMOL HERNANDEZ Marital Status: Single Visit Id: Visit Reason: Arm pain-swelling; Finger pain-swelling; LEFT ARM PAIN Speciality: Acuity: 4 Enc Type: Emergency Med Service: Emergency Arrival: 04/04/2024 12:18:09 Discharge: 04/04/2024 14:42:55 LOS: 000 02:24 Checkin: 04/04/2024 12:18:09 Checkout: 04/04/2024 14:42:55 Dispo Type: Home (Routine DC) EVENTS: Event Name Event Status Request Date/Time Start Date/Time Complete Date/Time Arrive Complete 04/04/2024 12:18:09 04/04/2024 12:18:09 04/04/2024 12:18:09 Document Home Meds Request 04/04/2024 12:18:09 Triage Complete 04/04/2024 12:18:09 04/04/2024 12:32:07 04/04/2024 12:32:07 Bed Assign Complete 04/04/2024 12:26:12 04/04/2024 12:26:12 04/04/2024 12:26:12 Dr Exam Complete 04/04/2024 12:26:12 04/04/2024 12:28:57 04/04/2024 12:28:57 RN Exam Complete 04/04/2024 12:26:12 04/04/2024 13:09:16 04/04/2024 13:09:16 Registration Complete 04/04/2024 12:28:57 04/04/2024 12:46:28 04/04/2024 12:46:28 Isolation Screening Request 04/04/2024 12:32:07 Dr Exam Complete 04/04/2024 12:33:58 04/04/2024 12:33:58 04/04/2024 12:33:58 Reg Complete Request 04/04/2024 12:46:28 Reg Bed Request Complete 04/04/2024 12:46:28 04/04/2024 12:46:28 04/04/2024 12:46:28 Discharge Complete 04/04/2024 14:29:01 04/04/2024 14:43:00 04/04/2024 14:43:00 Transfer Complete 04/04/2024 14:43:00 04/04/2024 14:43:00 04/04/2024 14:43:00 ADDRESS: [address] [place] [phone] PHYS DOC NOTES: MEDICAL INFORMATION: Prescriptions Given: New Medications [id number], [address] [place], [place] [id number], [phone] methocarbamol (Robaxin-750 oral tablet) 2 Tablets By Mouth 3 times a day for 3 Days. Refills: 0. naproxen (Naprosyn 500 mg Tab) 1 Tablets By Mouth 2 times a day as needed for pain. Refills: 0. Medications to Continue with No Changes Other Medications amlodipine (amLODIPine 10 mg Tab) 1 Tablets By Mouth every day. aspirin (aspirin 81 mg Oral EC Tab) 1 Tablets By Mouth every day. atorvastatin (Lipitor 40 mg Tab) 1 Tablets By Mouth at bedtime. Refills: 1. doxycycline (doxycycline hyclate 100 mg Cap) 1 Capsules By Mouth 2 times a day. Refills: 0. hydrochlorothiazide-l osartan (hydrochlorothiazide- losartan 12.5 mg-100 mg oral tablet) 1 Tablets By Mouth every day. Refills: 0. metformin (metformin 500 mg Tab) 1 Tablets By Mouth 2 times a day. Refills: 0. metoprolol (Metoprolol tartrate 50 mg Tab) 1 Tablets By Mouth 2 times a day. NIFEdipine (NIFEdipine 90 mg ER Tab) 1 Tablets By Mouth every day. PATIENT EDUCATION INFORMATION: Instructions: Radial Nerve Palsy; Ganglion Cyst Follow up: With: Address: When: Peter Gastelum [address] [place] [address] [employer] ([employer] In 3 days 04/07/2024 DIAGNOSIS: Ganglion cyst of wrist Normal [facility] ED Note-Physicianon 04-04-20 ED Note-Physician ED Note-Physician Basic Information Time Seen: Reza Arrington PA-C 04/04/2024 12:28 Chief Complaint Pt has had pain in fingertips on L hand (pointer and middle finger) that started 3 days ago. Pt. states the pain has been spreading up his arm and getting worse. History of Present Illness 43-year-old male comes to the ED for evaluation of paresthesias. He states over the last few days he has noted paresthesias to his right hand. He does have swelling over the dorsal aspect of the hand but states that were ongoing for months. He has had no trauma to the area. No fever, chills, nausea or vomiting. No prior treatments. Review of Systems A 10 point review of systems is negative except as noted above. Medical and Surgical History: Reviewed and noted Social history: Lives at home Tobacco: Denies Physical Exam Vitals & Measurements T: 36.5 ?C(Oral) HR: 92(Peripheral) RR: 16 BP: 177/98 SpO2: 96% HT: 177.1 cm WT: 124.7 kg BMI: 39.76 Nurses notes and vital signs reviewed and patient is not hypoxic. General: The patient appears well, resting comfortably. Skin: Warm, dry. Head: Atraumatic. Neck: No JVD. Eye: Normal conjunctiva. Ears, Nose, Mouth, and Throat: Moist mucous membranes. Cardiovascular: Strong distal pulses. Chest wall: Respiratory: Respirations are nonlabored. Back: Normal range of motion. Musculoskeletal: Approximate 2 cm raised area of tenderness over the dorsal aspect of the left wrist. Paresthesia appreciated to the distal aspect of the left second and third digits extending along the palmar aspect in a radial nerve distribution. No soft tissue swelling ecchymosis or erythema. Gastrointestinal: Urological: Neurological: Awake and alert. No focal deficits. Follows commands. Psychiatric: Cooperative. Medical Decision Making Patient has ganglion cyst on examination and with radial nerve paresthesias. No trauma for imaging. He has no overlying ecchymosis erythema or infectious process. He is treated with Naprosyn, Robaxin and wrist splint. He is given orthopedic follow-up. Patient was encouraged to return to the ED if symptoms worsen or change. Assessment/Plan Ganglion cyst of wrist (M67.439: Ganglion, unspecified wrist) Orders: methocarbamol, 1,500 mg = 2 tab(s), Oral, TID, X 3 day(s), # 18 tab(s), Refills(s) 0, Pharmacy: [facility] #[id number], 177.1, cm, 04/04/24 12:32:00 EDT, Height/Length Dosing, 124.7, kg, 04/04/24 12:32:00 EDT, Weight Dosing naproxen, 500 mg = 1 tab(s), Oral, BID, PRN for pain, # 20 tab(s), Refills(s) 0, Pharmacy: [facility]/pharmacy #[id number], 177.1, cm, 04/04/24 12:32:00 EDT, Height/Length Dosing, 124.7, kg, 04/04/24 12:32:00 EDT, Weight Dosing Splint Application Wrist Disposition Plan Patient Discharge Condition Disposition: Discharged home Condition: Improved and stable Counseled: Patient and/or family were counseled to workup, results, treatment plan and follow-up recommendations Discharge Prescription List Prescriptions Naprosyn 500 mg Tab, 500 mg= 1 tab(s), Oral, BID, PRN Robaxin-750 oral tablet, 1500 mg= 2 tab(s), Oral, TID Follow-up With When Contact Information Peter Gastelum In 3 days 04/07/2024 EDT [address] [place] [address]- Business (1) Additional Instructions: Patient Education Radial Nerve Palsy Ganglion Cyst Attestation I performed a substantive part of the MDM during the patient?s E/M visit. I personally made or approved the documented management plan and acknowledge its risk of complications. (Independent Interpretation) My (EKG/X-Ray/US/CT) interpretation as above. (Discussion) Management/test interpretation discussed with APC. This report was transcribed using voice recognition software. Every effort was made to ensure accuracy, however, inadvertently computerized ed special education teacher mistakes may be present. Appropriate healthcare PPE was used in evaluating this patient. Problem List/Past Medical History Ongoing HTN (hypertension) Smoker Tobacco use Historical COPD - Chronic obstructive pulmonary disease Diabetes mellitus type 1 Hypertension Procedure/Surgical History Appendectomy with drainage, Spinal fusion. Medications Inpatient No active inpatient medications Home amLODIPine 10 mg Tab, 10 mg= 1 tab(s), Oral, Daily aspirin 81 mg Oral EC Tab, 81 mg= 1 tab(s), Oral, Daily doxycycline hyclate 100 mg Cap, 100 mg= 1 cap(s), Oral, BID hydrochlorothiazide-l osartan 12.5 mg-100 mg oral tablet, 1 tab(s), Oral, Daily Lipitor 40 mg Tab, 40 mg= 1 tab(s), Oral, Bedtime, 1 refills metformin 500 mg Tab, 500 mg= 1 tab(s), Oral, BID Metoprolol tartrate 50 mg Tab, 50 mg= 1 tab(s), Oral, BID NIFEdipine 90 mg ER Tab, 90 mg= 1 tab(s), Oral, Daily Allergies No Known Medication Allergies Social History Alcohol - Denies Alcohol Use, 04/04/2024 Substance Abuse - Denies Substance Abuse, 10/21/2023 Tobacco - High Risk, 10/21/2023 10 or more cigarettes (1/2 pack or more)/day in last 30 days Tobacco Use:. (more content not included)... Normal [facility] Comment on above: Result Comment: Elec tronically Signed By: Reza Arrington PA-C\.br\Date and Time Signed: 04/04/24 14:38 EDT\.br\Electronically Co-Signed By: John Saldana M.D.\.br\Date and Time Co-Signed: 04/04/24 15:04 EDT ED Patient Summaryon 024 ED Patient Summary ED Patient Summary [address] [address] Patient Discharge Instructions Person Information Name: DEVON MATHEW Age: 43 Years Arrival Date: 04/04/2024 12:18:09 Discharge Diagnosis: Ganglion cyst of wrist Primary Care Physician: AMOL HERNANDEZ Provider Information Primary Provider: John Saldana M.D. Advanced Manager Of Compliance:Reza Arrington PA-C The exam and treatment you received in the Emergency Department were for an urgent problem and are not intended as complete care. It is important that you follow up with a doctor, nurse practitioner, or physician?s recruiting assistant for ongoing care. If your symptoms become worse or you do not improve as expected and you are unable to reach your usual health care provider, you should return to the Emergency Department. We are available 24 hours a day. DEVON MATHEW has been given the following list of patient education materials, prescriptions and follow-up instructions: Follow-up Instructions: With: Address: When: Peter Gastelum [address] [place] [address] [facility] (1) In 3 days 04/07/2024 In the event that this physician does not participate in your insurance network, please consult with your insurance company to find a nearby participating provider. Patient Education Materials: Radial Nerve Palsy; Ganglion Cyst A MESSAGE TO ALL PATIENTS REGARDING OPIOIDS PRESCRIPTION OPIOIDS: WHAT YOU NEED TO KNOW Prescription opioids can be used to help relieve anzqqiau-ro-wbpytx pain and are often prescribed following a surgery or injury, or for certain health conditions. These medications can be an important part of the treatment but also come with serious risks. It is important to work with your healthcare provider to make sure you are getting the safest, most effective care. WHAT ARE THE RISKS AND SIDE EFFECTS OF OPIOID USE? Prescription opioids carry serious risks of addiction and overdose, especially with prolonged use. An opioid overdose, often marked by slowed breathing, can cause sudden . The use of prescription opioids can have a number of side effects as well, even when taken as directed: ? Tolerance?meaning you might need to take more of the medication for the same pain relief ? Physical dependence?meaning you have symptoms of withdrawal when a medication is stopped ? Increased sensitivity to pain ? Constipation ? Nausea, vomiting, and dry mouth ? Sleepiness and dizziness ? Confusion ? Depression ? Low levels of testosterone that can result in lower sex drive, energy, and strength ? Itching and sweating RISKS ARE GREATER WITH: ? History of drug misuse, substance use disorder, or overdose ? Mental health conditions (such as depression or anxiety) ? Sleep apnea ? Older age (65 years and older) ? Avoid alcohol while taking prescription opioids. Also, unless specifically advised by your health care provider, medications to avoid include: ? Benzodiazepines (such as Xanax or Valium) ? Muscle relaxants (such as Soma or Flexeril) ? Hypnotics (such as Ambien or Lunesta) ? Other prescription opioids KNOW YOUR OPTIONS Talk to your health care provider about ways to manage your pain that don?t involve prescription opioids. Some of these options may actually work better and have fewer risks and side effects. Options may include: ? Pain relievers such as acetaminophen, ibuprofen, and naproxen ? Some medication that are also used for depression or seizures ? Physical therapy and exercise ? Cognitive behavioral therapy, a psychological, goal-directed approach, in which patients learn how to modify physical, behavioral, and emotional triggers of pain and stress. IF YOU ARE PRESCRIBED OPIOIDS FOR PAIN: ? Never take opioids in greater amounts or more often than prescribed. ? Follow up with your primary health care provider. o Work together to create a plan on how to manage your pain. o Talk about ways to help manage your pain that don?t involve prescription opioids. o Talk about any and all concerns and side effects. ? Help prevent misuse and abuse o Never sell or share prescription opioids. o Never use another person?s prescription opioids. ? Store prescription opioids in a secure place and out of reach of others (this may include visitors, children, friends, and family). ? Safely dispose of unused prescription opioids: Find your community drug take-back program or your pharmacy mail-back program, or flush them down the toilet, following guidance from the Food and Drug Administration (www.fda.gov/Drugs/Re sourcesForYou). ? Visit www.cdc.gov/drugoverd ose to learn about the risks of opioids abuse and overdose. ? If you believe you may be struggling with addiction, tell your health animal care taker and ask for guidance or call [facility]?S National Helpline at 2-539-641-BLD (more content not included)... Normal [facility] Insurance Correspondence Off iceon 11-16-2023 Insurance Correspondence Office [id number]# 1.00TIFF Normal [facility] XR CHEST 2 VWSon 10-30-2023 XR CHEST 2 VWS XR CHEST 2 VWS PA and lateral chest: HISTORY: Shortness of breath and cough. 2 views of the chest are obtained. Cardiac and mediastinal contours are within normal limits. Clear. There is no vascular congestion or effusion. Osseous structures appear intact. IMPRESSION: No acute findings. Finalized by Sagar Mario MD on 10/30/2023 11:17 AM [facility] Coding Queryon 10-29-2023 Coding Query - From: Chaparrita Irvin RN To: Daron SIFUENTES MD; Sent: 10/24/2023 14:37:34 EDT ! Subject: Coding Query Due Date/Time: 10/25/2023 14:37:00 EDT Caller Name: DEVON MATHEW; Caller Number: H Documentation per a service delivery consultant in the medical record indicates this patient has been diagnosed as having: Hypertensive urgency The following is also documented in the medical record: 10/21 Cardiology: 1. Elevated troponin Patient has mildly elevated troponin superimposed on hypertensive urgency. He has no chest pain or anginal symptoms. I recommended discontinuation of his amlodipine and continuing nifedipine 90 mg p.o. daily. He will continue his metoprolol 50 mg p.o. twice daily. We will add hydrochlorothiazide 12.5 mg a day and Cozaar 50 mg p.o. daily. Would recommend discontinuation of his amlodipine as he is already on a calcium channel navarro Based on your medical judgment of the documented diagnoses by the service delivery consultant, do you agree with the diagnosis? [___]Yes, I agree with the diagnosis documented by the service delivery consultant. [___]No, I do not agree with the diagnosis documented by the service delivery consultant. Reason: [___]Other: In responding to this request, please exercise your independent professional judgement. The fact that a question is asked does not imply that any particular answer is desired or expected. Thank you!chaparrita [phone] From: Daron SIFUENTES MD To: Brandee JACOBS, Chaparrita Coleman; Sent: 10/29/2023 12:42:17 EDT Subject: RE: Coding Query Caller Name: DEVON MATHEW; Caller Number: H yes i gree Normal [facility] Echocardiographyon 4 Echocardiography [id number]# 1.00TIFF [facility] Stress EKG Tracingson 2023 Stress EKG Tracings [id number]# 1.00TIFF [facility] MRSA Screenon 10-24-2023 MRSA DNA FERMIN+probe Ql (Unsp spec) Microbiology PROCEDURE: MRSA Screen [R1] SOURCE: Nasal BODY SITE: COLLECTED DATE/TIME: 10/22/2023 00:48 EDT RECEIVED DATE/TIME: 10/22/2023 03:08 EDT START DATE/TIME: 10/22/2023 03:09 EDT FREE TEXT SOURCE: Vickie MEANS DO, DO, Ronobir R FINAL REPORTS Final Report [] Verified Date/Time: 10/24/2023 11:01 EDT MRSA Negative. Performing Locations R1: [facility], [address] [place] [address], [id number] , , Normal [facility] Comment on above: Performed By: #### 2 [id number] #### [facility] [address] [place] [address] CHEMISTRYOrdered By: Lab ROP User on 10-23-2023 Glucose [Mass/Vol] 271 mg/dL High 55 - 99 mg/dL FTM C POC Subsection Comment on above: Result Comment: Dena PETERSEN POC Device SN [id number] 1 Invalid Interpretation Code [facility] POC Subsection POC User ID [id number] 1 Invalid Interpretation Code [facility] POC Subsection POC Username BERONICA PATINO Invalid Interpretation Code [facility] POC Subsection Glucose [Mass/Vol] 279 mg/dL High 55 - 99 mg/dL FTM C POC Subsection Comment on above: Result Comment: Dena PETERSEN POC Device SN [id number] 1 Invalid Interpretation Code [facility] POC Subsection POC User ID [id number] 1 Invalid Interpretation Code [facility] POC Subsection POC Username BERONICA PATINO Invalid Interpretation Code [facility] POC Subsection CHEMISTRYOrdered By: SYSTEM SYSTEM on 10-23-2023 Cholesterol [Mass/Vol] 172 mg/dL Normal 120 - 200 mg/dL Remisol Chem Cholesterol in HDL [Mass/Vol] 26 mg/dL Invalid Interpretation Code Remisol Chem Comment on above: Result Comment: '>= 60 LOW RISK' '<= 40 HIGH RISK' Cholesterol in LDL [Mass/Vol] 120 mg/dL Normal <=129mg/dL Remisol Chem Cholesterol in VLDL [Mass/Vol] 34 mg/dL Normal 7 - 40 mg/dL Remisol Chem Triglyceride [Mass/Vol] 170 mg/dL High <=149mg/dL R emisol Chem Capillary Glucose POCon 10-05 Glucose [Mass/Vol] 271 mg/dL High 55-99 [facility] Comment on above: Result Comment: Dena PETERSEN Performed By: #### 1 [id number] #### [facility] [address] [place] [address] Glucose [Mass/Vol] 279 mg/dL High 55-99 [facility] Comment on above: Result Comment: Dena PETERSEN Performed By: #### 2 [id number] #### [facility] [address] [facility] [place] [address] Discharge Instructionson Discharge Instructions [id number]# 1.00TIFF [facility] Discharge Note-Nursingon Discharge Note-Nursing DEVON MATHEW :1980 Visit Date:10/21/2023 Inpatient Discharge Instructions Your Care Team Admitting Physician - Vickie MEANS DO Reason for Your Visit pt. went hiking for 6 hours on 10/20 and came home. Pt. noticed that he felt weak and tired and decided to take his blood sugar which was 532. He has also been having boils grow on his back, legs, etc. recently and during the hike. Your Diagnosis Elevated troponin Cough Abscess Leukocytosis Hyperglycemia Hyponatremia Diabetes mellitus, type 2 HTN (hypertension) Obese Tobacco use On deep vein thrombosis (DVT) prophylaxis Abscess - axilla Elevated blood pressure reading Fever Increased blood sugar Pneumonia Sepsis Tests Performed Culture Sputum -- Results Pending -- CXR Echo Transthoracic w/ Contrast -- Results Pending -- XR Chest Single View Please visit your patient portal for your results or contact your primary care physician. This Is Your Medications List NIFEdipine (NIFEdipine 90 mg ER Tab) amlodipine (amLODIPine 10 mg Tab) aspirin (aspirin 81 mg Oral EC Tab) atorvastatin (Lipitor 40 mg Tab) doxycycline (doxycycline hyclate 100 mg Cap) hydrochlorothiazide-l osartan (hydrochlorothiazide- losartan 12.5 mg-100 mg oral tablet) metformin (metformin 500 mg Tab) metoprolol (Metoprolol tartrate 50 mg Tab) Procedure History Appendectomy with drainage, Spinal fusion. Discharge Vitals Temperature (Axillary) 36.7 ?C Heart Rate (Apical) 115 Respiratory Rate 18 Blood Pressure 135/84 Weight 113.8 kg What to do next Instructions From Your Doctor Event Name Event Result Discharge Activity Ambulate as tolerated Discharge Restrictions No restrictions Discharge Diet(s) Low Sodium- 2000 mg Pending Diagnostic Test Results None Pharmacy Information [facility] New Follow Up Appointments after Discharge Follow Up with HATTIE SHANE When: Where: [address] [place] [address] Follow Up with MENDY COOK When: Where: [address] [place] [address]- Business (1) Medications What How Much When Instructions Next Dose New aspirin (aspirin 81 mg Oral EC Tab) 1 Tablets By Mouth Every day 10/24/23 New atorvastatin (Lipitor 40 mg Tab) 1 Tablets By Mouth At bedtime Refills: 1 Pickup at [facility]/pharmacy #[id number] 10/23/23 @9pm New doxycycline (doxycycline hyclate 100 mg Cap) 1 Capsules By Mouth 2 times a day Pickup at [facility]/pharmacy #[id number] 10/23/23 @9pm New hydrochlorothiazide-l osartan (hydrochlorothiazide- losartan 12.5 mg-100 mg oral tablet) 1 Tablets By Mouth Every day Pickup at [facility]/pharmacy #[id number] 10/24/23 New metformin (metformin 500 mg Tab) 1 Tablets By Mouth 2 times a day Pickup at [facility]/pharmacy #[id number] 10/23/23 @9pm Unchanged amlodipine (amLODIPine 10 mg Tab) 1 Tablets By Mouth Every day 10/24/23 Unchanged metoprolol (Metoprolol tartrate 50 mg Tab) 1 Tablets By Mouth 2 times a day 10/23/23 @9pm Unchanged NIFEdipine (NIFEdipine 90 mg ER Tab) 1 Tablets By Mouth Every day 10/24/23 Pharmacy Information [facility]/pharmacy #[id number]: [address] [place], [place] [id number] [phone] Test Results CBC BMP WBC: 15.1 E9/L High (10/23/23 05:56:00) Glucose Lvl: 364 mg/dL High (10/22/23 05:02:00) RBC: 4.3 E12/L (10/22/23 05:02:00) BUN: 13 mg/dL (10/22/23 05:02:00) HGB: 12.4 gm/dL Low (10/22/23 05:02:00) Creatinine: 0.6 mg/dL (10/22/23 05:02:00) Hct: 36.3 % Low (10/22/23 05:02:00) BUN/Creat Ratio: 22 High (10/22/23 05:02:00) MCV: 84.6 fL (10/22/23 05:02:00) Sodium Lvl: 131 mmol/L Low (10/22/23 05:02:00) MCH: 28.9 pg (10/22/23 05:02:00) Potassium Lvl: 4 mmol/L (10/22/23 05:02:00) MCHC: 34.2 gm/dL (10/22/23 05:02:00) Chloride: 104 mmol/L (10/22/23 05:02:00) RDW: 13.8 % (10/22/23 05:02:00) CO2: 22 mmol/L (10/22/23 05:02:00) Platelet: 211 E9/L (10/22/23 05:02:00) AGAP: 9 mEq/L (10/22/23 05:02:00) MPV: 9.9 fL (10/22/23 05:02:00) Calcium Lvl: 8.2 mg/dL Low (10/22/23 05:02:00) Allergies No Known Medication Allergies Problems Ongoing - Any problem that you are currently receiving treatment for. HTN (hypertension) Smoker Tobacco use Education Materials Obesity, Adult Obesity is the condition of having too much total body fat. Being overweight or obese means that your weight is greater than what is considered healthy for your body size. Obesity is determined by a measurement called BMI (body mass index). BMI is an estimate of body fat and is calculated from height and weight. For adults, a BMI of 30 or higher is considered obese. Obesity can lead to other health concerns and major illnesses, including: ? Stroke. ? Coronary artery disease (CAD). ? Type 2 diabetes. ? Some types of cancer, including cancers of the colon, breast, uterus, and gallbladder. ? High blood pressure (hypertension). ? High cholesterol. ? Gallbladder stones. Obesity can also c (more content not included)... Normal [facility] HEMATOLOGYOrdered By: SYSTEM SYSTEM on 10-23-2023 WBC corrected for nucl RBC Auto (Bld) [#/Vol] 15.1 E9/L High 4.0 - 11.0 E9/L Remisol Heme Inpatient Clinical Summaryon 10-23-2023 Inpatient Clinical Summary [address] [address] Clinical Summary Person Information: Name: DEVON MATHEW Age: 43 Years : 1980 Sex: Male PCP: HATTIE SHANE CNP Marital Status: Single Race: White Ethnicity: Non- or Language: Sri [place]ankan Visit Id: Visit Reason: Increased blood sugar; Fever; Abscess - axilla; BOILS ALL OVER, FEVERS, BLURRY VISION Speciality: Acuity: Enc Type: Inpatient Med Service: Medical Arrival: 10/21/2023 18:35:40 Discharge: Dispo Type: Admitted as IP to this Hosp Address: [address] [place] [id number] Provider Notes: Diagnosis: 1:Elevated troponin; 2:Cough; 3:Abscess; 4:Leukocytosis; 5:Hyperglycemia; 6:Hyponatremia; 7:Diabetes mellitus, type 2; 8:HTN (hypertension); 9:Obese; 10:Tobacco use; 11:On deep vein thrombosis (DVT) prophylaxis; Elevated blood pressure reading; Pneumonia; Sepsis Problems Active Smoker Tobacco use HTN (hypertension) Smoking Status: Current Every Day Smoker Functional Status: Sensory Deficits: History of Falls: Mobility Assistance Prior to Admission: Independent ADLs: Independent Current Level of Assistance for Self-Care/Mobility: Cognitive Status: Oriented x 3 Allergies No Known Medication Allergies Measurements: Height: 177.1 cm Weight: 113.8 kg Blood Pressure: 135 mmHg / 84 mmHg BMI: 36.63 kg/m2 Procedures Spinal fusion Appendectomy with drainage Immunizations No Immunizations Documented This Visit Final Med List: amlodipine (amLODIPine 10 mg Tab) 1 Tablets By Mouth every day. aspirin (aspirin 81 mg Oral EC Tab) 1 Tablets By Mouth every day. atorvastatin (Lipitor 40 mg Tab) 1 Tablets By Mouth at bedtime. Refills: 1. doxycycline (doxycycline hyclate 100 mg Cap) 1 Capsules By Mouth 2 times a day. Refills: 0. hydrochlorothiazide-l osartan (hydrochlorothiazide- losartan 12.5 mg-100 mg oral tablet) 1 Tablets By Mouth every day. Refills: 0. metformin (metformin 500 mg Tab) 1 Tablets By Mouth 2 times a day. Refills: 0. metoprolol (Metoprolol tartrate 50 mg Tab) 1 Tablets By Mouth 2 times a day. NIFEdipine (NIFEdipine 90 mg ER Tab) 1 Tablets By Mouth every day. Care Team Members: Attending Physician: Vickie MEANS DO Consulting Physician: Referring Physician: Follow up: With: Address: When: [address], [address] [place] [address] Business (1) With: Address: When: HATTIE SHANE [address] [place], [place] [phone] Business (1) Patient Education Information: Obesity, Adult; Managing Your Hypertension Normal [facility] Inpatient Patient Summaryon 10-23-2023 Inpatient Patient Summary [address] [address] Patient Discharge Instructions PERSON INFORMATION Name: DEVON MATHEW Date of : 1980 Current Date: 10/23/2023 12:51:11 PHYSICIANS Admitting Physician: Vickie MEANS DO Primary Care Physician: HATTIE SHANE CNP PCP Phone Number: [phone] Comment: Discharge Diagnosis: 1:Elevated troponin; 2:Cough; 3:Abscess; 4:Leukocytosis; 5:Hyperglycemia; 6:Hyponatremia; 7:Diabetes mellitus, type 2; 8:HTN (hypertension); 9:Obese; 10:Tobacco use; 11:On deep vein thrombosis (DVT) prophylaxis; Elevated blood pressure reading; Pneumonia; Sepsis Condition at Discharge: Stable DEVON MATHEW has been given the following list of follow-up instructions, prescriptions, and patient education materials: PATIENT FOLLOW-UP INFORMATION Diet: Low Sodium- 2000 mg Discharge Activity: Ambulate as tolerated Discharge Restrictions: No restrictions Wound Care Instructions: Remove Your Dressing In Days Call Your Doctor For: IF UNABLE TO CONTACT YOUR PHYSICIAN AND YOU FEEL IT IS AN EMERGENCY, GO TO THE NEAREST EMERGENCY ROOM OR CALL 911 Home Treatment: Devices/Equipment: None Special Services: Additional Instructions: Primary Care Physician to provide the following pending test results: None Follow up: With: Address: When: MENDY Hill, [address] [place] [address] Business (1) With: Address: When: HATTIE SHANE [address] [place], [place] [phone] Business (1) In the event that this physician does not participate in your insurance network, please consult with your insurance company to find a nearby participating provider. Comment: PRIYANKA Stone CORY, have received the attached patient education materials/instruction s and have verbalized understanding: Patient Signature Date Clinican/Nurse Signature Date HERE ARE THE MEDICATION CHANGES THAT OCCURRED DURING YOUR HOSPITAL STAY New Medications [id number], [address] [place], [place] [phone], [phone] atorvastatin (Lipitor 40 mg Tab) 1 Tablets By Mouth at bedtime. Refills: 1. Last Dose: ____Next Dose: ____ doxycycline (doxycycline hyclate 100 mg Cap) 1 Capsules By Mouth 2 times a day. Refills: 0. Last Dose: ____Next Dose: ____ hydrochlorothiazide-l osartan (hydrochlorothiazide- losartan 12.5 mg-100 mg oral tablet) 1 Tablets By Mouth every day. Refills: 0. Last Dose: ____Next Dose: ____ metformin (metformin 500 mg Tab) 1 Tablets By Mouth 2 times a day. Refills: 0. Last Dose: ____Next Dose: ____ Other Medications aspirin (aspirin 81 mg Oral EC Tab) 1 Tablets By Mouth every day. Last Dose: ____Next Dose: ____ Medications to Continue with No Changes Other Medications amlodipine (amLODIPine 10 mg Tab) 1 Tablets By Mouth every day. Last Dose: ____Next Dose: ____ metoprolol (Metoprolol tartrate 50 mg Tab) 1 Tablets By Mouth 2 times a day. Last Dose: ____Next Dose: ____ NIFEdipine (NIFEdipine 90 mg ER Tab) 1 Tablets By Mouth every day. Last Dose: ____Next Dose: ____ Comment: MEDICATION LIST PROVIDED FOR YOU IS A LIST OF YOUR CURRENT MEDICATIONS. PLEASE CARRY THIS WITH YOU AT ALL TIMES. amlodipine (amLODIPine 10 mg Tab) 1 Tablets By Mouth every day. aspirin (aspirin 81 mg Oral EC Tab) 1 Tablets By Mouth every day. atorvastatin (Lipitor 40 mg Tab) 1 Tablets By Mouth at bedtime. Refills: 1. doxycycline (doxycycline hyclate 100 mg Cap) 1 Capsules By Mouth 2 times a day. Refills: 0. hydrochlorothiazide-l osartan (hydrochlorothiazide- losartan 12.5 mg-100 mg oral tablet) 1 Tablets By Mouth every day. Refills: 0. metformin (metformin 500 mg Tab) 1 Tablets By Mouth 2 times a day. Refills: 0. metoprolol (Metoprolol tartrate 50 mg Tab) 1 Tablets By Mouth 2 times a day. NIFEdipine (NIFEdipine 90 mg ER Tab) 1 Tablets By Mouth every day. [facility] Comment: PATIENT EDUCATION INFORMATION Instructions: Obesity, Adult Obesity is the condition of having too much total body fat. Being overweight or obese means that your weight is greater than what is considered healthy for your body size. Obesity is determined by a measurement called BMI (body mass index). BMI is an estimate of body fat and is calculated from height and weight. For adults, a BMI of 30 or higher is considered obese. Obesity can lead to other health concerns and major illnesses, including: ? Stroke. ? Coronary artery disease (CAD). ? Type 2 diabetes. ? Some types of cancer, including cancers of the colon, (more content not included)... Normal [facility] Insurance Correspondence Off iceon 10-23-2023 Insurance Correspondence Office [id number] #1.00TIFF [facility] Interdisciplinary Note - Toro e Manageron 10-23-2023 Interdisciplinary Note - Mattress Weaver P tis awake and alert in bed, previously rounded with Dr. Seymour. at bedside, and will transport at DC. Pt had echo and stress test and aware of plan to DC home today, declines any concerns or DC needs. . PCP verified and insurance information reviewed and DME discussed. Contact information provided and white board updated. [facility] Comment on above: Result Comment: Elec tronically Signed By: Cande JACOBS, Stephanie\.leonor\Date and Time Signed: 10/23/23 12:10 EDT Lipid Panelon 10-23-2023 Cholesterol [Mass/Vol] 172 mg/dL Normal 120-200 [facility] Comment on above: Performed By: #### 2 [id number] ####[facility] [address] [place] [address] Cholesterol in HDL [Mass/Vol] 26 mg/dL Invalid Interpretation Code [facility] Comment on above: Result Comment: '>= 60 LOW RISK' '<= 40 HIGH RISK' Performed By: #### 2 [id number] ####[facility] [address] [place] [address] Cholesterol in LDL [Mass/Vol] 120 mg/dL Normal <=129 [facility] Comment on above: Performed By: #### 2 [id number] ####[facility] [address] [place] [address] Cholesterol in VLDL [Mass/Vol] 34 mg/dL Normal 7-40 [facility] Comment on above: Performed By: #### 2 [id number], [id number] ####[facility] [address] [place] [address] Triglyceride [Mass/Vol] 170 mg/dL High <=[address] [facility] Comment on above: Performed By: #### 2 [id number], [id number] ####[facility] [address] [place] [address] Monitor Recordon 10-23-2023 Monitor Record [id number]# 1.00TIFF Normal [facility] Monitor Record [id number]# 1.00TIFF Normal [facility] Monitor Record [id number]# 1.00TIFF Normal [facility] Progress Note-Physicianon Progress Note-Physician Subjective Patient feeling much better today, doing very well. Telemetry showed normal sinus rhythm. No chest pain or anginal symptoms. Review of Systems Constitutional: no fever, no chills, no weakness, no fatigue Respiratory: no shortness of breath, no cough, no orthopnea, no wheezing Cardiovascular: no chest pain, no palpitations, no edema Neuro: no dizziness no light headed no syncope Additional ROS info: Except as noted in the above Review of Systems and in the History of Present Illness all other systems have been reviewed and are negative or noncontributory. Objective Vitals & Measurements T: 36.5 ?C(Oral) TMIN: 36.4 ?C(Axillary) TMAX: 36.6 ?C(Axillary) HR: 75(Apical) RR: 18 BP: 135/86 SpO2: 96% WT: 113.8 kg Intake & Output This visit (24 hour periods starting at 07:00 EDT) 10/23/23 * 10/22/23 10/21/23 Total Summary Intake mL -- 50 2,450.5 Output mL -- -- -- Fluid Balance -- 50 2,450.5 Intake (5) Generic Diluent, vancomycin mL -- -- 400 Oral Intake mL -- 50 -- Sodium Chloride 0.9% mL -- -- 2,000 Sodium Chloride 0.9%, piperacillin-tazobact am mL -- -- 50 hydrALAZINE mL -- -- 0.5 Total -- 50 2,450.5 Output (0) Counts (0) * This column has not completed the indicated time period. Physical Exam General: alert, no acute distress Neck: Supple, noJVD nocarotid bruit Cardiovascular: regular rate and rhythm, no murmur normal peripheral perfusion Respiratory: Lungs CTA, respirations non labored Extremities: no edema Neurological: oriented x 4, LOC appropriate for age, sensation equal & normal bilaterally, speech normal Skin: Warm, dry, intact- no rash or concerning lesions Lab Results WBC: 15.1 E9/L High (10/23/23 05:56:00) Chol: 172 mg/dL (10/23/23 05:56:00) Tri mg/dL High (10/23/23 05:56:00) HDL: 26 mg/dL (10/23/23 05:56:00) LDL Direct: 120 mg/dL (10/23/23 05:56:00) VLDL: 34 mg/dL (10/23/23 05:56:00) Glucose Cap: 279 mg/dL High (10/23/23 07:40:00) POC Device SN: [id number] (10/23/23 07:40:00) POC User ID: [id number] (10/23/23 07:40:00) POC Username: BERONICA PATINO (10/23/23 07:40:00) Assessment/Plan 1. Elevated troponin (R79.89: Other specified abnormal findings of blood chemistry) Patient minimally elevated troponin superimposed on significant elevation of blood sugar, no chest pain or anginal symptoms or EKG changes. Patient will undergo a 2D echo with Doppler today, as well as a stress echocardiogram. If these are normal, the patient may be discharged home and follow-up with cardiology as an outpatient. Would recommend aggressive LDL reduction given his history of diabetes. Recommend starting Lipitor 40 mg p.o. nightly and repeat lipid profile in 6 weeks time. His LDL should be less than 100 and preferably less than 70. 2. Cough (R05.9: Cough, unspecified) 3. Abscess (L02.91: Cutaneous abscess, unspecified) 4. Leukocytosis (D72.829: Elevated white blood cell count, unspecified) 5. Hyperglycemia (R73.9: Hyperglycemia, unspecified) 6. Hyponatremia (E87.1: Hypo-osmolality and hyponatremia) 7. Diabetes mellitus, type 2 (E11.9: Type 2 diabetes mellitus without complications) 8. HTN (hypertension) (I10: Essential (primary) hypertension) 9. Obese (E66.9: Obesity, unspecified) 10. Tobacco use (Z72.0: Tobacco use) 11. On deep vein thrombosis (DVT) prophylaxis (Z79.899: Other penitentiary (current) drug therapy) Elevated blood pressure reading (R03.0: Elevated blood-pressure reading, without diagnosis of hypertension) Pneumonia (J18.9: Pneumonia, unspecified organism) Sepsis (A41.9: Sepsis, unspecified organism) Orders: hydrochlorothiazide, 12.5 mg = 1 tab(s), Tab, Oral, Daily, Routine, Start date 10/22/23 9:00:00 EDT, First dose now, 10/22/23 8:49:00 EDT losartan, 50 mg = 1 tab(s), Tab, Oral, Daily, Routine, Start date 10/22/23 9:00:00 EDT, First dose now, 10/22/23 8:49:00 EDT EC Stress Echo Complete w/ Contrast Echo Transthoracic Complete Lipid Panel Problem List/Past Medical History Ongoing HTN (hypertension) Smoker Tobacco use Historical No qualifying data Medications Inpatient acetaminophen 325 mg Tab, 650 mg= 2 tab(s), Oral, q6hr, PRN aspirin 81 mg Oral EC Tab, 81 mg= 1 tab(s), Oral, Daily Bactroban 2% nasal ointment, 1 terrence, Topical, BID Benadryl 25 mg Cap, 25 mg= 1 cap(s), Oral, q6hr, PRN Cozaar 50 mg Tab, 50 mg= 1 tab(s), Oral, Daily Dextrose 50% Soln-IV, 50 mL, IV Push, Once, PRN doxycycline, 100 mg= 1 cap(s), Oral, BID DuoNeb 2.5 mg-0.5 mg/3 mL Soln-Inh, 3 mL, Inhalation, QID, PRN enoxaparin 40 mg/0.4 mL SC Fatimah, 40 mg= 0.4 mL, SubCutaneous, Daily hydrALAZINE 20 mg/mL Inj, 10 mg= 0.5 mL, IV Push, q6hr, PRN hydrochlorothiazide 12.5 mg Tab, 12.5 mg= 1 tab(s), Oral, Daily ibuprofen 800 mg Tab, 800 mg= 1 tab(s), Oral, TID, PRN Insulin Lispro Sliding Scale, 0-10 Unit(s), SubCutaneous, QIDACHS Metoprolol tartrate 50 mg Tab, 50 mg= 1 tab(s), Oral, BID nicotine (more content not included)... Normal [facility] Comment on above: Result Comment: Elec tronically Signed By: MAXIM POWELL, Houston Osullivan\.br\Date and Time Signed: 10/23/23 07:58 EDT WBCon 10-23-2023 WBC corrected for nucl RBC Auto (Bld) [#/Vol] 15.1 E9/L High 4.0-11.0 [facility] Comment on above: Performed By: #### 2 [id number], [id number] ####[facility] [address] [place] [address] BMPon 10-22-2023 Anion gap [Moles/Vol] 9 mmol/L Normal 6-16 [facility] Comment on above: Performed By: #### 2 [id number] #### [facility] [address] [place] [address] Calcium [Mass/Vol] 8.2 mg/dL Low 8.9-11.1 [facility] Comment on above: Performed By: #### 2 [id number] #### [facility] [address] [place] [address] Chloride [Moles/Vol] 104 mmol/L Normal 101-111 [facility] Comment on above: Performed By: #### 2 [id number] #### [facility] [address] [place] [address] CO2 [Moles/Vol] 22 mmol/L Normal 21-31 [facility] Comment on above: Performed By: #### 2 [id number] #### [facility] [address] [place] [address] Creatinine [Mass/Vol] 0.6 mg/dL Normal 0.5-1.3 [facility] Comment on above: Performed By: #### 2 [id number] #### [facility] [address] [place] [address] Glucose [Mass/Vol] 364 mg/dL High 55-199 [facility] Comment on above: Performed By: #### 2 [id number] #### [facility] [address] [place] [address] Potassium [Moles/Vol] 4.0 mmol/L Normal 3.5-5.3 [facility] Comment on above: Performed By: #### 2 197837 #### [facility] [address] [place] [address] Sodium [Moles/Vol] 131 mmol/L Low 135-145 [facility] Comment on above: Performed By: #### 2 [id number] #### [facility] [address] [place] [address] Urea nitrogen [Mass/Vol] 13 mg/dL Normal 5-21 [facility] Comment on above: Performed By: #### 2 [id number] #### [facility] [address] [place] [address] Urea nitrogen/Creatinine [Mass ratio] 22 No Units High 10-20 [facility] Comment on above: Performed By: #### 2 [id number] #### [facility] [address] [place] [address] CBC w/Indiceson 10-22-2023 Erythrocyte distribution width (RBC) [Ratio] 13.8 % Normal 10.9-14.2 [facility] Comment on above: Performed By: #### 2 [id number] #### [facility] [address] [place] [address] Hematocrit (Bld) [Volume fraction] 36.3 % Low 37.7-49.0 [facility] Comment on above: Performed By: #### 2 [id number] #### [facility] [address] [place] [address] Hemoglobin (Bld) [Mass/Vol] 12.4 g/dL Low 13.5-17.5 [facility] Comment on above: Performed By: #### 2 [id number] #### [facility] [address] [place] [address] MCH (RBC) [Entitic mass] 28.9 pg Normal 27.0-34.0 [facility] Comment on above: Performed By: #### 2 [id number] #### [facility] [address] [place] [address] MCHC (RBC) [Mass/Vol] 34.2 g/dL Normal 31.4-36.0 [facility] Comment on above: Performed By: #### 2 [id number] #### [facility] [address] [place] [address] MCV (RBC) [Entitic vol] 84.6 fL Normal 80.0-100.[address] [facility] Comment on above: Performed By: #### 2 [id number] #### [facility] [address] [place] [address] Platelet mean volume (Bld) [Entitic vol] 9.9 fL Normal 6.4-10.8 [facility] Comment on above: Performed By: #### 2 [id number] #### [facility] [address] [place] [address] Platelets (Bld) [#/Vol] 211.0 E9/L Normal 150.0-500.0 [facility] Comment on above: Performed By: #### 2 [id number] #### [facility] [address] [place] [address] RBC (Bld) [#/Vol] 4.3 E12/L Normal 4.3-5.9 [facility] Comment on above: Performed By: #### 2 [id number] #### [facility] [address] [place] [address] RBC size Nom (Bld) NORMAL Invalid Interpretation Code [facility] Comment on above: Performed By: #### 2 [id number] #### [facility] [address] [place] [address] WBC corrected for nucl RBC Auto (Bld) [#/Vol] 13.4 E9/L High 4.0-11.0 [facility] Comment on above: Performed By: #### 2 [id number] #### [facility] [address] [place] [address] CHEMISTRYOrdered By: Lab ROP User on 10-22-2023 Glucose [Mass/Vol] 217 mg/dL High 55 - 99 mg/dL FT C POC Subsection Comment on above: Result Comment: Dena cee RN/ POC Device SN [id number] Invalid Interpretation Code [facility] POC Subsection POC User ID [id number] Invalid Interpretation Code [facility] POC Subsection POC Username ROMA MEDINA Invalid Interpretation Code [facility] POC Subsection CHEMISTRYOrdered By: SYSTEM SYSTEM on 10-22-2023 Cholesterol [Mass/Vol] 171 mg/dL Normal 120 - 200 mg/dL [facility] Cholesterol in HDL [Mass/Vol] 23 mg/dL Invalid Interpretation Code [facility] Comment on above: Result Comment: '>= 60 LOW RISK' '<= 40 HIGH RISK' Cholesterol in LDL [Mass/Vol] 117 mg/dL Normal <=129mg/dL [facility] Cholesterol in VLDL [Mass/Vol] 36 mg/dL Normal 7 - 40 mg/dL [facility] Triglyceride [Mass/Vol] 182 mg/dL High <=149mg/dL R [facility] Anion gap [Moles/Vol] 9 mmol/L Normal 6 - 16 mEq/L R [facility] Calcium [Mass/Vol] 8.2 mg/dL Low 8.9 - 11. 1 mg/dL [facility] Chloride [Moles/Vol] 104 mmol/L Normal 101 - 1 11 mmol/L [facility] CO2 [Moles/Vol] 22 mmol/L Normal 21 - 31 mmol/L [facility] Creatinine [Mass/Vol] 0.6 mg/dL Normal 0.5 - 1.3 mg/dL [facility] eGFR 123 mL/min/1.73 m2 Normal >=59mL/mi n/1. 73 m2 [facility] Glucose [Mass/Vol] 364 mg/dL High 55 - 199 mg/dL [facility] Magnesium [Mass/Vol] 1.7 mg/dL Normal 1.3 - 2 .4 mg/dL [facility] Potassium [Moles/Vol] 4.0 mmol/L Normal 3.5 - 5.3 mmol/L [facility] Sodium [Moles/Vol] 131 mmol/L Low 135 - 145 mmol/L [facility] Troponin 62.40 pg/mL Invalid Interpretation Code 15.90 - 38.40 pg/mL [facility] Comment on above: Result Comment: Crit ical Result Verified by Repeat Analysis Critical Result I_TnIHS:62.4 Called to and read back by: LUAN BENTLEY at: 10/22/2023 06:41:12 by:KAYKAY Interpretive Data: T he 95% CI (Confidence Interval) PPV (Positive Predictive Value) for myocardial infarction in females is 38 pg/mL, in males 51 pg/mL. The results should be used in conjunction with clinical conditions of myocardial infarction. (Access High Sensitivity Troponin I Instructions For Use, Jesus Josafat, March 2018) TSH Qn 1.37 m[IU]/L Normal 0.34 - 5.60 mcIU/mL [facility] Urea nitrogen [Mass/Vol] 13 mg/dL Normal 5 - 21 mg/dL [facility] Urea nitrogen/Creatinine [Mass ratio] 22 mg/mg High 10 - 20 [facility] CHEMISTRYOrdered By: Keisha mejia on 10-22-2023 HbA1c (Bld) [Mass fraction] 9.6 % High <=5.9% [facility] ChemAutoSS Capillary Glucose POCon 10-05 Glucose [Mass/Vol] 217 mg/dL High 55-99 [facility] Comment on above: Result Comment: Dena cee RN/ Performed By: #### 2 [id number] #### [facility] [address] [place] [address] Glucose [Mass/Vol] 309 mg/dL High 55-99 [facility] Comment on above: Result Comment: Dena cee RN/ Performed By: #### 2 [id number] #### [facility] [address] [place] [address] Consultation Noteon 10-22-19 Consultation Note Chief Complaint pt. went hiking for 6 hours on 10/20 and came home. Pt. noticed that he felt weak and tired and decided to take his blood sugar which was 532. He has also been having boils grow on his back, legs, etc. recently and during the hike. Reason for Consultation Abnormal troponin, hypertensive urgency History of Present Illness Patient is a very pleasant 43-year-old morbidly obese recently diagnosed diabetic gentleman with a history of hypertension on amlodipine and metoprolol as well as nifedipine at home, no previous known coronary artery disease, unknown cholesterol, ongoing smoker of 30 pack years, reportedly compliant with medications. Patient noted that he had an infected cyst on his back and has gone to [facility] a couple times in the past couple of weeks for treatment. The patient was given prednisone and Lasix, and when this did not improve he came to [facility] emergency room for further evaluation. He was found to have markedly elevated systemic hypertension with blood pressure of 200/110, markedly elevated blood sugars and a mildly elevated troponin. His EKG showed normal sinus rhythm, normal axis, no previous myocardial infarction and no acute changes. His initial troponin was 46 and increased to 66 and now is trending downwards. The patient denied any chest pain or anginal symptoms but did complain of fevers and chills with respect to his infected lesions on his back. Denied any exertional anginal symptoms prior to these lesions becoming infected. He reports he is compliant with his medications. Patient is currently resting comfortably. Review of Systems Constitutional: moderate fever, moderate sweats, no weakness Skin: no rash, no lesions, nobruising/petechiae ENMT: no sore throat, no congestion, no hoarseness Respiratory: no shortness of breath, no cough, no orthopnea, no wheezing Cardiovascular: no chest pain, no palpitations, no edema Gastrointestinal: no nausea, no vomiting, no diarrhea, no GI bleeding Genitourinary: no anuria/oliguria no hematuria Musculoskeletal: no back pain, no trauma Neurologic: no headache, no dizziness, no numbness, no weakness Psychiatric: no sleeping problems, no irritability, no anxiety/depression. Heme/Lymph: no bleeding tendency, no bruising tendency Allergy/Immunologic: no recurrent infections, no impaired immunity Additional ROS info: Except as noted in the above Review of Systems and in the History of Present Illness all other systems have been reviewed and are negative or noncontributory. Physical Exam Vitals & Measurements T: 36.4 ?C(Axillary) TMIN: 36.4 ?C(Axillary) TMAX: 37.0 ?C(Oral) HR: 81(Monitored) RR: 18 BP: 135/100 SpO2: 97% HT: 177.1 cm HT: 177.1 cm WT: 114.9 kg WT: 114.9 kg General: alert, no acute distress Skin: warm, dry intact Head: atraumatic, normocephalic Neck: Trachea midline, no JVD, no bruit Eye: normal conjunctiva, sclera clear ENMT: oral mucosa moist Cardiovascular: regular rate and rhythm, nomurmur normal peripheral perfusion Respiratory: Lungs CTA, respirations non labored Chest wall: no deformity. Gastrointestinal: soft, non distended, no tenderness, no guarding. Back: No tenderness, Normal ROM, Normal alignment. Extremities: no edema, no deformity, no trauma Neurological: oriented x 4, LOC appropriate for agesensation equal & normal bilaterally, speech normal Psychiatric: cooperative, affect appropriate for age, normal judgement, normal psychiatric thoughts. Assessment/Plan 1. Elevated troponin (R79.89: Other specified abnormal findings of blood chemistry) Patient has mildly elevated troponin superimposed on hypertensive urgency. He has no chest pain or anginal symptoms. I recommended discontinuation of his amlodipine and continuing nifedipine 90 mg p.o. daily. He will continue his metoprolol 50 mg p.o. twice daily. We will add hydrochlorothiazide 12.5 mg a day and Cozaar 50 mg p.o. daily. Would recommend discontinuation of his amlodipine as he is already on a calcium channel navarro. Would recommend obtaining a fast lipid profile as well as a 2D echo with Doppler. He will continue baby aspirin. Will hold on Plavix at this time. If his echocardiogram is normal and his blood pressure is well-controlled and optimized, would recommend a treadmill/MPI to evaluate him for possible concomitant coronary ischemia. If his stress test is grossly abnormal, he may require diagnostic coronary angiogram. Would recommend aggressive LDL reduction with starting him on Lipitor 40 mg p.o. nightly and repeat lipid profile in 6 weeks time. Would recommend aggressive management of his infected skin, so as to avoid cellulitis or erysipelas. Patient may require IV antibiotics. Would recommend aggressive control of his sugars to optimize his hemoglobin A1c. Thank you very much for the opportunity to participate in the cardiac care of your patient. Consultation time took place between 830 and 9 AM. 2. Cough (R05.9: Cough, unspecified) 3. Leukocyt (more content not included)... Normal [facility] Comment on above: Result Comment: Elec tronically Signed By: MAXIM POWELL, Houston Osullivan\.br\Date and Time Signed: 10/22/23 08:53 EDT HEMATOLOGYOrdered By: SYSTEM SYSTEM on 10-22-2023 Erythrocyte distribution width (RBC) [Ratio] 13.8 % Normal 10.9 - 14.2 % Remisol Heme Hematocrit (Bld) [Volume fraction] 36.3 % Low 37.7 - 49.0 % Remisol Heme Hemoglobin (Bld) [Mass/Vol] 12.4 g/dL Low 13.5 - 17.5 gm/dL Remisol Heme MCH (RBC) [Entitic mass] 28.9 pg Normal 27.0 - 34.0 pg Remisol Heme MCHC (RBC) [Mass/Vol] 34.2 g/dL Normal 31.4 - 36.0 gm/dL Remisol Heme MCV (RBC) [Entitic vol] 84.6 fL Normal 80.0 - 100.0 fL Remisol Heme Platelet mean volume (Bld) [Entitic vol] 9.9 fL Normal 6.4 - 10.8 fL Remisol Heme Platelets (Bld) [#/Vol] 211.0 E9/L Normal 150. 0 - 500.0 E9/L Remisol Heme RBC (Bld) [#/Vol] 4.3 E12/L Normal 4.3 - 5.9 E12/L Remisol Heme RBC size Nom (Bld) NORMAL *NA* (10/22/23 5:02 AM) Invalid Interpretation Code Remisol Heme WBC corrected for nucl RBC Auto (Bld) [#/Vol] 13.4 E9/L High 4.0 - 11.0 E9/L Remisol Heme [id number] 10-22-2023 HbA1c (Bld) [Mass fraction] 9.6 % High <=5.9 [facility] Comment on above: Performed By: #### 2 [id number] #### [facility] [address] [place] [address] Laboratory - Microbiology an d Antimicrobial susceptibilityOrdered By: Marcela Schilling on 10-22-2023 MRSA DNA FERMIN+probe Ql (Unsp spec) MRSA Negative. [facility] Lipid Panelon 10-22-2023 Cholesterol [Mass/Vol] 171 mg/dL Normal 120-200 [facility] Comment on above: Performed By: #### 2 [id number] #### [facility] [address] [place] [address] Cholesterol in HDL [Mass/Vol] 23 mg/dL Invalid Interpretation Code [facility] Comment on above: Result Comment: '>= 60 LOW RISK' '<= 40 HIGH RISK' Performed By: #### 2 907520 #### [facility] [address] [place] [address] Cholesterol in LDL [Mass/Vol] 117 mg/dL Normal <=129 [facility] Comment on above: Performed By: #### 2 059866 #### [facility] [address] [place] [address] Cholesterol in VLDL [Mass/Vol] 36 mg/dL Normal 7-40 [facility] Comment on above: Performed By: #### 2 593019 #### [facility] [address] [place] [address] Triglyceride [Mass/Vol] 182 mg/dL High <=[address] [facility] Comment on above: Performed By: #### 2 918233 #### [facility] [address] [place] [address] Magnesiumon 10-22-2023 Magnesium [Mass/Vol] 1.7 mg/dL Normal 1.3-2.4 [facility] Comment on above: Performed By: #### 2 757797 #### [facility] [address] [place] [address] Monitor Recordon 10-22-2023 Monitor Record [id number]# 1.00TIFF Normal [facility] Monitor Record [id number]# 1.00TIFF Normal [facility] Monitor Record [id number]# 1.00TIFF Normal [facility] Monitor Record [id number]# 1.00TIFF Normal [facility] Progress Note-Physicianon Progress Note-Physician Assessment/Plan 43-year-old male with history of hypertension, with recent shortness of breath and was treated with oral prednisone and Lasix presented with complaints of generalized weakness, bowels, elevated blood sugar and was admitted with elevated troponin, left axilla and scapular nondraining abscess, leukocytosis, hyponatremia secondary to hyperglycemia secondary to new onset diabetes mellitus and uncontrolled hypertension. 1. Elevated troponin (R79.89: Other specified abnormal findings of blood chemistry) Elevated troponin?secondary to type II non-ST segment elevation myocardial infarction from demand ischemia. Cardiology consult reviewed by me. I appreciate and agree with recommendations. Patient will undergo echocardiogram and depending on echocardiogram may undergo stress test left heart catheterization. Meanwhile patient was started on aspirin. Check fasting lipid profile and start Lipitor appropriately. Ordered: [facility] Care/Day Moderate 35 Minutes 49990 2. Cough (R05.9: Cough, unspecified) Supportive care. Continue on Tessalon Perles as needed and nebulizer treatments. Ordered: [facility] Care/Day Moderate 35 Minutes 62399 3. Abscess (L02.91: Cutaneous abscess, unspecified) Left axilla and left scapula nondraining abscess. Start patient on doxycycline. Ordered: [facility] Care/Day Moderate 35 Minutes 62003 White Blood Count 4. Leukocytosis (D72.829: Elevated white blood cell count, unspecified) Secondary to above abscess. WBC trending down. Ordered: [facility] Care/Day Moderate 35 Minutes 72775 White Blood Count 5. Hyperglycemia (R73.9: Hyperglycemia, unspecified) Secondary to new onset diabetes mellitus. Started patient on sliding scale insulin. Hemoglobin A1c pending. Ordered: [facility] Care/Day Moderate 35 Minutes 01030 6. Hyponatremia (E87.1: Hypo-osmolality and hyponatremia) Secondary to hyperglycemia. Improving. Sodium level 131 7. Diabetes mellitus, type 2 (E11.9: Type 2 diabetes mellitus without complications) New onset diabetes mellitus. Fasting glucose 364. Started patient on sliding scale insulin. Patient already has prescriptions for metformin as outpatient. Hemoglobin A1c pending. 8. HTN (hypertension) (I10: Essential (primary) hypertension) Blood pressure uncontrolled. Continue on metoprolol, nifedipine. Seen by nursing home manager and hydrochlorothiazide and losartan were added. 9. Obese (E66.9: Obesity, unspecified) Recommend therapeutic lifestyle modification changes. 10. Tobacco use (Z72.0: Tobacco use) Recommend cessation. Continue nicotine patch. 11. 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 Disposition: Hopefully home in a.m. pending echocardiogram result?May require stress test or cardiac cath. I discussed the diagnosis and plan of care with the patient at the bedside. Moderate level of MDM based on addressing above issues. This documentation was transcribed using voice recognition software. Several attempts were made to ensure accuracy. However inadvertent computerized ed special education teacher errors may be present. Delia Ortiz. Hospitalist. Orders: doxycycline, 100 mg = 1 cap(s), Cap, Oral, BID, Start date 10/22/23 9:00:00 EDT glucose, 50 mL, Soln-IV, IV Push, Once PRN Blood glucose, Routine, Start date 10/22/23 8:58:00 EDT insulin lispro, 0-10 Unit(s), Injection-Insulin, SubCutaneous, QIDACHS, Routine, Start date 10/22/23 11:30:00 EDT Hypoglycemia Protocol Responsive Patient Hypoglycemia Protocol Unresponsive Patient Routine Capillary Glucose POC Subjective Seen and examined. Denies any chest pain or shortness of breath this morning. Complains of pain involving the left buttock boil and axilla boil. No fever overnight. No chills. Objective Vitals & Measurements T: 36.4 ?C(Axillary) TMIN: 36.4 ?C(Axillary) TMAX: 37.0 ?C(Oral) HR: 81(Monitored) RR: 18 BP: 135/100 SpO2: 97% HT: 177.1 cm HT: 177.1 cm WT: 114.9 kg WT: 114.9 kg Intake & Output This visit (24 hour periods starting at 07:00 EDT) 10/22/23 * 10/21/23 10/20/23 Total Summary Intake mL -- 2,450.5 -- Output mL -- -- -- Fluid Balance -- 2,450.5 -- Intake (4) Generic Diluent, vancomycin mL -- 400 -- Sodium Chloride 0.9% mL -- 2,000 -- Sodium Chloride 0.9%, piperacillin-tazobact am mL -- 50 -- hydrALAZINE mL -- 0.5 -- Total -- 2,450.5 -- Output (0) Counts (0) * This column has not completed the indicated time period. Physical Exam General: alert, no acute distress Skin: warm, dry, left axilla 2 cm x 1.5 cm soft boil. Mildly tender. Left scapular area 4 cm x 4 cm subcutaneous induration, tender. No streaking. No fluctuance. Head: no trauma, normocephalic Neck: Trachea midline, no adenopathy, no tenderness Eye: normal conjunctiva, sclera clear ENMT: TM's clear, oral mucosa moist, no pharynge (more content not included)... Normal [facility] Comment on above: Result Comment: Elec tronically Signed By: ALEA POWELL, Delia\.br\Date and Time Signed: 10/22/23 09:08 EDT TSH With T4fr Reflexon 10-21 TSH Qn 1.37 m[IU]/L Normal 0.34-5.60 [facility] Comment on above: Performed By: #### 2 [id number] #### [facility] [address] [place] [address] Troponinon 10-22-2023 Troponin 62.40 pg/mL Abnormal 15.90-38.40 [facility] Comment on above: Result Comment: Crit ical Result Verified by Repeat Analysis Critical Result I_TnIHS:62.4 Called to and read back by: LUAN BENTLEY at: 10/22/2023 06:41:12 by:KAYKAY The 95% CI (Confidence Interval) PPV (Positive Predictive Value) for myocardial infarction in females is 38 pg/mL, in males 51 pg/mL. The results should be used in conjunction with clinical conditions of myocardial infarction. (Access High Sensitivity Troponin I Instructions For Use, [employer], March 2018) Performed By: #### 2 [id number] #### [facility] [address] [place] [address] Troponin 65.80 pg/mL Abnormal 15.90-38.40 [facility] Comment on above: Result Comment: Crit ical Result Verified by Repeat Analysis Critical Result I_TnIHS:65.8 Called to and read back by: JEANNETTE MOYA/Amaya at: 10/22/2023 00:32:26 by:LE LYNCH The 95% CI (Confidence Interval) PPV (Positive Predictive Value) for myocardial infarction in females is 38 pg/mL, in males 51 pg/mL. The results should be used in conjunction with clinical conditions of myocardial infarction. (Access High Sensitivity Troponin I Instructions For Use, [employer], March 2018) Performed By: #### 2 [id number] #### [facility] [address] [place] [address] XR Chest 2 Viewson XR Chest 2 Views Exam Date/Time: 10/21/2023 21:59 EDT Reason for Exam: Cough Report [facility] [phone] IMPRESSION: There are no acute cardiopulmonary changes. CLINICAL HISTORY: Cough EXAMINATION: XR Chest 2 Views COMPARISON: FINDINGS: The cardiomediastinal silhouette is unremarkable. The lungs are free of infiltrates effusions or consolidations. There are no acute osseous changes. Ordering Provider: Vickie MEANS FINAL REPORT Dictated: 10/22/2023 9:49 am Arron Avelar MD, V. Signed (Electronic Signature): 10/22/2023 9:49 am Signed by: Arron Avelar MD, V. Transcribed by: ALEJANDRA Technologist: ISIDRO Technical Comments Radiation Dose: Ka,r in mGy = na DAP = na Normal [facility] XR Chest Single Viewon 10-21 XR Chest Single View Exam Date/Time: 10/21/2023 19:43 EDT Reason for Exam: Cough Report [facility] [phone] IMPRESSION: There are no acute cardiopulmonary changes. CLINICAL HISTORY: Cough EXAMINATION: XR Chest Single View COMPARISON: FINDINGS: The cardiomediastinal silhouette is unremarkable. The lungs are free of infiltrates effusions or consolidations. There are no acute osseous changes. Ordering Provider: Sean Thomas FINAL REPORT Dictated: 10/22/2023 8:05 am Arron Avelar MD, V. Signed (Electronic Signature): 10/22/2023 8:05 am Signed by: Arron Avelar MD, V. Transcribed by: ALEJANDRA Technologist: GUICHO Technical Comments Radiation Dose: Ka,r in mGy = na DAP = na Normal [facility] eGFRon 10-22-2023 eGFR 123 mL/min/1.73 m2 Normal >=59 [facility] Comment on above: Order Comment: Order added by Discern Expert. Performed By: #### 2 [id number] #### [facility] [address] [place] [address] BNPon 10-21-2023 Natriuretic peptide B (Bld) [Mass/Vol] 8 pg/mL Normal 5-80 [facility] Comment on above: Performed By: #### 2 795106, 44769022, 2552440, 2387837, 73706889, 6593022192, 0616216, 13185195, 384826725 ####[facility] [address] [place] [address] BOHBon 10-21-2023 Beta HB Qnt 0.10 mmol/L Normal 0.02-0.27 [facility] Comment on above: Performed By: #### 2 227939, 78906616, 6638578, 3973531, 86374901, 0934344292, 8121760, 99512109, 607170123 ####[facility] [address] [place] [address] Bld Gas Venon 10-21-2023 Allens Test Not Applicable Normal [facility] Comment on above: Performed By: #### 1 [id number] #### [facility] [address] [place] [address] Drawn by lab Invalid Interpretation Code [facility] Comment on above: Performed By: #### 1 [id number] #### [facility] [address] [place] [address] FIO2 BG 21 Invalid Interpretation Code [facility] Comment on above: Performed By: #### 1 [id number] #### [facility] [address] [place] [address] pCO2 Maikel 40.7 mmHg Normal 38.0-50.0 [facility] Comment on above: Performed By: #### 1 [id number] #### [facility] [address] [place] [address] pH Maikel 7.401 Normal 7.320-7.430 [facility] Comment on above: Performed By: #### 1 [id number] #### [facility] [address] [place] [address] Sample Site OTHER Normal [facility] Comment on above: Performed By: #### 1 1266981 #### [facility] [address] [place] [address] Sample Type Venous Draw Normal [facility] Comment on above: Performed By: #### 1 [id number] #### [facility] [address] [place] [address] CBC w/ Auto Diffon 4 Basophils/100 WBC (Bld) 0.2 % Normal 0.0-2.[address] [facility] Comment on above: Performed By: #### 2 142571, 70826117, 8233914, 7480132, 65480234, 9075745762, 1787219, 26657114, 747054295 #### [facility] [address] [place] [address] Basophils/Leukocytes Auto (Bld) [Pure # fraction] 0.0 E9/L Normal 0.0-0.2 [facility] Comment on above: Performed By: #### 2 217738, 92488521, 3786708, 0361026, 26327633, 9478369112, 4827895, 85298619, 812629651 #### [facility] [address] [place] [address] Eosinophils (Bld) [#/Vol] 0.1 E9/L Normal 0.0-0.5 [facility] Comment on above: Performed By: #### 2 263964, 07680169, 8178683, 9106086, 41943988, 6073799521, 4162910, 25057406, 872854814 #### [facility] [address] [place] [address] Eosinophils/100 WBC (Bld) 0.7 % Normal 0.0-8.0 [facility] Comment on above: Performed By: #### 2 747914, 70439655, 1212179, 1544290, 01146733, 5950341544, 1050687, 94475527, 460184745 #### [facility] [address] [place] [address] Erythrocyte distribution width (RBC) [Ratio] 13.7 % Normal 10.9-14.2 [facility] Comment on above: Performed By: #### 2 563136, 16315263, 8904015, 9450061, 33112575, 1794403095, 4731306, 89881230, 916097362 #### [facility] [address] [place] [address] Hematocrit (Bld) [Volume fraction] 41.6 % Normal 37.7-49.0 [facility] Comment on above: Performed By: #### 2 819311, 85480632, 7709494, 3898105, 71233146, 1914598579, 7215637, 86479828, 303475876 #### [facility] [address] [place] [address] Hemoglobin (Bld) [Mass/Vol] 14.3 g/dL Normal 13.5-17.5 [facility] Comment on above: Performed By: #### 2 797470, 05018013, 9286454, 2279689, 99972347, 2102320169, 1770936, 88798186, 930271714 #### [facility] [address] [place] [address] Lymphocytes (Bld) [#/Vol] 4.0 E9/L Normal 1.0-4.0 [facility] Comment on above: Performed By: #### 2 481515, 76147011, 8477547, 9107606, 14751401, 4642708729, 7509242, 76558093, 443189656 #### [facility] [address] [place] [address] Lymphocytes/100 WBC (Bld) 25.2 % Normal 14.0-50.0 [facility] Comment on above: Performed By: #### 2 449078, 65396717, 1136643, 4660127, 15468943, 9498127488, 3778359, 82424238, 502630408 #### [facility] [address] [place] [address] MCH (RBC) [Entitic mass] 29.0 pg Normal 27.0-34.0 [facility] Comment on above: Performed By: #### 2 760474, 89464450, 1280788, 9498183, 28175948, 7480877572, 0971381, 24740082, 093663550 #### [facility] [address] [place] [address] MCHC (RBC) [Mass/Vol] 34.3 g/dL Normal 31.4-36.0 [facility] Comment on above: Performed By: #### 2 482499, 44411657, 0156070, 6463032, 72619200, 7893064659, 4345457, 28194415, 135157285 #### [facility] [address] [place] [address] MCV (RBC) [Entitic vol] 84.7 fL Normal 80.0-100.[address] [facility] Comment on above: Performed By: #### 2 738720, 71316297, 3443189, 6905141, 10525166, 4283451095, 4804069, 53935106, 935204680 #### [facility] [address] [place] [address] Monocytes (Bld) [#/Vol] 0.8 E9/L Normal 0.2-1.[address] [facility] Comment on above: Performed By: #### 2 553048, 54753971, 1605236, 2093055, 71670407, 9604063042, 3717034, 41337876, 853104202 #### [facility] [address] [place] [address] Neutrophils (Bld) [#/Vol] 10.9 E9/L High 2.0-7.5 [facility] Comment on above: Performed By: #### 2 127076, 06206697, 3567739, 5811471, 07032800, 8031605200, 7147020, 26817959, 614219225 #### [facility] [address] [place] [address] Neutrophils/100 WBC (Bld) 68.7 % Normal 36.0-75.0 [facility] Comment on above: Performed By: #### 2 533788, 17077023, 5628905, 3177630, 58487182, 1854707495, 2239055, 07225150, 710481361 #### [facility] [address] [place] [address] Platelet mean volume (Bld) [Entitic vol] 9.5 fL Normal 6.4-10.8 [facility] Comment on above: Performed By: #### 2 583082, 20943909, 2735237, 0128292, 99819907, 5872657314, 0404854, 35679164, 591880097 #### [facility] [address] [place] [address] Platelets (Bld) [#/Vol] 251.0 E9/L Normal 150.0-500.0 [facility] Comment on above: Performed By: #### 2 956233, 29670613, 8824486, 3329129, 83152123, 5644430097, 5482383, 28058471, 752502485 #### [facility] [address] [place] [address] RBC (Bld) [#/Vol] 4.9 E12/L Normal 4.3-5.9 [facility] Comment on above: Performed By: #### 2 141369, 10322830, 9213475, 2367698, 36838980, 7301420863, 0425833, 92589296, 496756539 #### [facility] [address] [place] [address] WBC corrected for nucl RBC Auto (Bld) [#/Vol] 15.8 E9/L High 4.0-11.0 [facility] Comment on above: Performed By: #### 2 357336, 62199625, 3110782, 1382436, 75743820, 4554773172, 4245321, 04998160, 922815980 #### [facility] [address] [place] [address] CHEMISTRYOrdered By: SYSTEM SYSTEM on 10-21-2023 Troponin 65.80 pg/mL Invalid Interpretation Code 15.90 - 38.40 pg/mL [facility] Comment on above: Result Comment: Crit ical Result Verified by Repeat Analysis Critical Result I_TnIHS:65.8 Called to and read back by: JEANNETTE MOYA/3S at: 10/22/2023 00:32:26 by:LE LYNCH Interpretive Data: T he 95% CI (Confidence Interval) PPV (Positive Predictive Value) for myocardial infarction in females is 38 pg/mL, in males 51 pg/mL. The results should be used in conjunction with clinical conditions of myocardial infarction. (Access High Sensitivity Troponin I Instructions For Use, [employer], March 2018) Albumin [Mass/Vol] 4.0 g/dL Normal 3.3 - 5.0 gm/dL Remisol Chem Albumin/Globulin [Mass ratio] 1.5 {ratio} Normal 1.1 - 2.2 Remisol Chem ALP [Catalytic activity/Vol] 75 [iU]/d Normal 21 - 98 Int._Unit/L Remisol Chem ALT No additional P-5'-P [Catalytic activity/Vol] 25 [iU]/d Normal 6 - 46 Int._Unit/L Remisol Chem Anion gap [Moles/Vol] 13 mmol/L Normal 6 - 16 mEq/L R emisol Chem AST [Catalytic activity/Vol] 15 [iU]/d Normal 5 - 43 Int._Unit/L [facility] Chem Beta HB Qnt 0.10 mmol/L Normal 0.02 - 0.27 mmol/L [facility] Bilirubin [Mass/Vol] 0.5 mg/dL Normal 0.0 - 1 .1 mg/dL [facility] Calcium [Mass/Vol] 9.0 mg/dL Normal 8.9 - 11. 1 mg/dL [facility] Chloride [Moles/Vol] 97 mmol/L Low 101 - 1 11 mmol/L [facility] Chem CO2 [Moles/Vol] 22 mmol/L Normal 21 - 31 mmol/L [facility] Creatinine [Mass/Vol] 0.9 mg/dL Normal 0.5 - 1.3 mg/dL [facility] eGFR 109 mL/min/1.73 m2 Normal >=59mL/mi n/1. 73 m2 [facility] Globulin (S) [Mass/Vol] 2.6 g/dL Normal 1.4 - 4.0 gm/dL [facility] Glucose [Mass/Vol] 417 mg/dL High 55 - 199 mg/dL [facility] Chem Lactic Acid Lvl 1.4 mmol/L Normal 0.5 - 2.2 mmol/L [facility] Potassium [Moles/Vol] 3.8 mmol/L Normal 3.5 - 5.3 mmol/L [facility] Procalcitonin 0.06 ng/mL Normal 0.00 - 0.50 ng/mL [facility] Comment on above: Interpretive Data: < 0.5 ng/mL Low risk of severe sepsis and/or shock >2.0 ng/mL High risk of severe sepsis and/or shock Concentrations under 0.5 ng/mL do not exclude local infections or systemic infections in their initial stages (e.g.. under six hours from onset of illness). PCT concentrations between 0.5 and 2.0 ng/mL should be interpreted with consideration of the patient's history. In this range, it is recommended to retest PCT within 6 to 24 hours. Protein [Mass/Vol] 6.6 g/dL Normal 6.0 - 7.8 gm/dL [facility] Sodium [Moles/Vol] 128 mmol/L Low 135 - 145 mmol/L [facility] Troponin 46.80 pg/mL High 15.90 - 38.40 pg/mL [facility] Comment on above: Interpretive Data: T he 95% CI (Confidence Interval) PPV (Positive Predictive Value) for myocardial infarction in females is 38 pg/mL, in males 51 pg/mL. The results should be used in conjunction with clinical conditions of myocardial infarction. (Access High Sensitivity Troponin I Instructions For Use, [employer], March 2018) Urea nitrogen [Mass/Vol] 17 mg/dL Normal 5 - 21 mg/dL Rem[facility] Urea nitrogen/Creatinine [Mass ratio] 19 mg/mg Normal 10 - 20 Rem[facility] Chem CHEMISTRYOrdered By: Sunitha Lynch on 10-21-2023 Natriuretic peptide B (Bld) [Mass/Vol] 8 pg/mL Normal 5 - 80 pg/mL [facility] Albumin [Mass/Vol] 4.0 g/dL Normal 3.3-5.0 [facility] Comment on above: Performed By: #### 2 882872, 94340031, 5330339, 5380859, 57697423, 2163578830, 2263519, 22763056, 258475381 #### [facility] [address] [place] [address] Albumin/Globulin (S) [Mass conc ratio] 1.5 Normal 1.1-2.2 [facility] Comment on above: Performed By: #### 2 694662, 29174732, 0888872, 1620466, 81774176, 7663891874, 9093673, 83557926, 474304533 #### [facility] [address] [place] [address] ALP [Catalytic activity/Vol] 75 Int._Unit/L Normal 21-98 [facility] Comment on above: Performed By: #### 2 638315, 59642521, 5810163, 2840048, 90966245, 8513931911, 7517742, [id number], [id number] #### [facility] [address] [place] [address] ALT No additional P-5'-P [Catalytic activity/Vol] 25 Int._Unit/L Normal 6-46 [facility] Comment on above: Performed By: #### 2 541133, [id number], 3897020, 5966153, 76579839, [id number], 3173854, 05953946, [id number] #### [facility] [address] [place] [address] Anion gap [Moles/Vol] 13 mmol/L Normal 6-16 [facility] Comment on above: Performed By: #### 2 912297, 43382504, 5714657, 1847025, 96030372, [id number], 3074240, 37446160, [id number] #### [facility] [address] [place] [address] AST [Catalytic activity/Vol] 15 Int._Unit/L Normal 5-43 [facility] Comment on above: Performed By: #### 2 389687, 59685161, 8394922, 3552300, 48306718, [id number], 7635151, 42484960, 589920620 #### [facility] [address] [place] [address] Bilirubin [Mass/Vol] 0.5 mg/dL Normal 0.0-1.1 [facility] Comment on above: Performed By: #### 2 033982, 36138082, 2648859, 5660533, 99404801, 2412281739, 9123827, 67721596, 510917772 #### [facility] [address] [place] [address] Calcium [Mass/Vol] 9.0 mg/dL Normal 8.9-11.1 [facility] Comment on above: Performed By: #### 2 994277, 34646242, 9453813, 3665972, 29179782, 1577923642, 9885880, 59603300, 596512031 #### [facility] [address] [place] [address] Chloride [Moles/Vol] 97 mmol/L Low 101-[address] [facility] Comment on above: Performed By: #### 2 815214, 95634740, 1907132, 6472310, 97438818, 9665609109, 1167337, 71778903, 401379465 #### [facility] [address] [place] [address] CO2 [Moles/Vol] 22 mmol/L Normal 21-31 [facility] Comment on above: Performed By: #### 2 183974, 37013687, 1952052, 2199912, 83622615, 1921616004, 9412402, 10752369, 386056970 #### [facility] [address] [place] [address] Creatinine [Mass/Vol] 0.9 mg/dL Normal 0.5-1.3 [facility] Comment on above: Performed By: #### 2 373421, 52452791, 4107576, 6553623, 42781751, 2023470078, 5552639, 92637650, 872184982 #### [facility] [address] [place] [address] Globulin (S) [Mass/Vol] 2.6 g/dL Normal 1.4-4.[address] [facility] Comment on above: Performed By: #### 2 376800, 56770035, 8511411, 6654326, 51404083, 6512002853, 6007747, 05743939, 830502658 #### [facility] [address] [place] [address] Glucose [Mass/Vol] 417 mg/dL High 55-199 [facility] Comment on above: Performed By: #### 2 667312, 65931998, 4550229, 2554366, 07952176, 1410207220, 9038293, 74595299, 909418907 #### [facility] [address] [place] [address] Potassium [Moles/Vol] 3.8 mmol/L Normal 3.5-5.3 [facility] Comment on above: Performed By: #### 2 435097, 26583891, 4016978, 0745948, 00648350, 8952655843, 7209671, 06959472, 231846095 #### [facility] [address] [place] [address] Protein [Mass/Vol] 6.6 g/dL Normal 6.0-7.8 [facility] Comment on above: Performed By: #### 2 712041, 24385400, 1131128, 8473972, 82059970, 5392779201, 2902910, 20840925, 696756567 #### [facility] [address] [place] [address] Sodium [Moles/Vol] 128 mmol/L Low 135-145 [facility] Comment on above: Performed By: #### 2 053611, 15268674, 4268386, 6271159, 12417483, 8851546164, 4282865, 23736880, 010294129 #### [facility] [address] [place] [address] Urea nitrogen [Mass/Vol] 17 mg/dL Normal 5-21 [facility] Comment on above: Performed By: #### 2 232023, 95369650, 9472951, 4591192, 08257543, 9475148089, 5072091, 03195057, 086985717 #### [facility] [address] [place] [address] Urea nitrogen/Creatinine [Mass ratio] 19 No Units Normal 10-20 [facility] Comment on above: Performed By: #### 2 023417, 03780828, 5552276, 9596800, 40930707, 1752595687, 3956848, 85937039, 526375225 #### [facility] [address] [place] [address] COAGULATIONOrdered By: Kingsley Zheng on 10-21-2023 aPTT Coag (PPP) [Time] 29.4 s Normal 25.1 - 36.5 second(s) [facility] Comment on above: Interpretive Data: P arameter 15 days - 4 weeks 1 - 5 months 6 - 11 months 1 - 5 years 6 - 10 years 11 - 17 years PTT Mean: 35.4 (27.6-45.6) Mean: 33.5 (24.8-40.7) Mean: 32.4 (25.1-40.7) Mean: 31.6 (24.0-39.2) Mean: 31.6 (26.9-38.7) Mean: 31.0 (24.6-38.4) Pediatric Reference ranges were obtained from a study by Gustavo Rey et al. prepared from 1437 samples obtained at 7 different centers using the same coagulation reagent and instrumentation as [facility]. Currently there are no coagulation studies available worldwide for children to 14 days, and no normal ranges. Heparin therapeutic range (represented by Anti-Factor Xa activity of 0.2 - 0.4 U/mL) corresponds to PTT of 56.6 - 109.0 sec. INR Coag (PPP) [Relative time] 1.02 {INR} Invalid Interpretation Code [facility] Comment on above: Interpretive Data: I NR results are specifically intended to assess patients stabilized on long-term Anticoagulation therapy suggested INR s Less Intensive Anticoagulation 2.0 3.0 Conventional Range 3.0 4.5 PT Coag (PPP) [Time] 11.4 s Normal 9.4 - 1 2.5 second(s) [facility] Comment on above: Interpretive Data: 1 5 days - 4 weeks 1 - 5 months 6 -11 months 1 5 years 6 10 years 11 -17 years Mean: 11.2 (9.5 12.6) Mean: 11.0 (9.7 12.8) Mean: 11.0 (9.8 13.0) Mean: 11.3 (9.9 13.4) Mean: 11.7 (10.0 14.6) Mean: 11.8 (10.0 - 14.1) Pediatric Reference ranges were obtained from a study by marina Cabello al. prepared from 1437 samples obtained at 7 different centers using the same coagulation reagent and instrumentation as [facility]. Currently there are no coagulation studies available worldwide for children to 14 days, and no normal ranges. Capillary Glucose POCon 10-05 Glucose [Mass/Vol] 254 mg/dL High 55-99 [facility] Comment on above: Result Comment: Dena PETERSEN Performed By: #### 2 [id number] #### [facility] [address] [place] [address] Glucose [Mass/Vol] 440 mg/dL High 55-99 [facility] Comment on above: Result Comment: Dena PETERSEN Performed By: #### 2 [id number] #### [facility] [address] [place] [address] Consent for Treatmenton 10-05 Consent for Treatment [id number] Normal [facility] ED Clinical Summaryon 2023 ED Clinical Summary [address] [address] ED Clinical Summary Person Information Name: DEVON MATHEW/[facility] Age: 43 Years : 1980 Sex: Male Language: Sri Lankan PCP: HATTIE SHANE CNP Marital Status: Single Phone: Visit Id: Visit Reason: Increased blood sugar; Fever; Abscess - axilla; BOILS ALL OVER, FEVERS, BLURRY VISION Speciality: Acuity: 3 Enc Type: Inpatient Med Service: Emergency Arrival: 10/21/2023 18:35:40 Discharge: LOS: 000 03:14 Checkin: 10/21/2023 18:35:40 Checkout: 10/21/2023 21:49:42 Dispo Type: Admitted as IP to this [facility] EVENTS: Event Name Event Status Request Date/Time Start Date/Time Complete Date/Time Arrive Complete 10/21/2023 18:35:40 10/21/2023 18:35:40 10/21/2023 18:35:40 Document Home Meds Request 10/21/2023 18:35:40 Triage Complete 10/21/2023 18:35:40 10/21/2023 18:51:06 10/21/2023 18:51:06 Bed Assign Complete 10/21/2023 18:41:31 10/21/2023 18:41:31 10/21/2023 18:41:31 Dr Exam Complete 10/21/2023 18:41:31 10/21/2023 18:55:27 10/21/2023 18:55:27 RN Exam Complete 10/21/2023 18:41:31 10/21/2023 19:28:57 10/21/2023 19:28:57 Isolation Screening Request 10/21/2023 18:51:07 EKG Complete 10/21/2023 18:52:43 10/21/2023 19:00:51 Meds Admin Complete 10/21/2023 18:52:43 10/21/2023 19:23:26 Pending Labs Collected 10/21/2023 18:52:43 Lab Collected 10/21/2023 18:52:43 Patient Care Request 10/21/2023 18:52:43 RT Request 10/21/2023 18:52:43 RT Tx/ABG Complete 10/21/2023 18:52:43 10/21/2023 19:59:03 10/21/2023 19:59:03 Registration Complete 10/21/2023 18:55:27 10/21/2023 19:03:39 10/21/2023 19:03:39 Pending Labs Complete 10/21/2023 19:02:41 10/21/2023 19:02:41 10/21/2023 19:02:42 Reg Complete Request 10/21/2023 19:03:39 Reg Bed Request Complete 10/21/2023 19:03:39 10/21/2023 19:03:39 10/21/2023 19:03:39 Pending Labs Complete 10/21/2023 19:07:07 10/21/2023 20:20:11 Lab Complete 10/21/2023 19:07:07 10/21/2023 20:20:11 Swab Complete 10/21/2023 19:07:07 10/21/2023 20:20:11 X-Ray Complete 10/21/2023 19:07:07 10/21/2023 19:18:02 10/21/2023 19:43:47 Pending Labs Complete 10/21/2023 19:13:43 10/21/2023 19:13:43 10/21/2023 19:41:41 Lab Complete 10/21/2023 19:13:44 10/21/2023 19:13:44 10/21/2023 19:41:41 Pending Labs Complete 10/21/2023 19:36:49 10/21/2023 19:36:49 10/21/2023 19:39:24 Pending Labs Complete 10/21/2023 19:38:30 10/21/2023 19:38:30 10/21/2023 20:07:53 Pending Labs Complete 10/21/2023 19:39:45 10/21/2023 19:39:45 10/21/2023 20:01:07 Lab Complete 10/21/2023 19:39:45 10/21/2023 19:39:45 10/21/2023 20:01:07 Wet Read Request 10/21/2023 19:43:47 Meds Admin Complete 10/21/2023 19:50:59 10/21/2023 21:31:02 Meds Admin Complete 10/21/2023 20:01:40 10/21/2023 20:39:30 Pending Labs Complete 10/21/2023 20:55:08 10/21/2023 20:55:08 10/21/2023 20:58:28 Bed Request Request 10/21/2023 20:55:45 Reg Bed Request Complete 10/21/2023 20:55:45 10/21/2023 21:02:24 10/21/2023 21:02:24 Admit Request 10/21/2023 20:55:45 X-Ray Request 10/21/2023 20:56:29 Pending Labs Complete 10/21/2023 20:58:24 10/21/2023 20:58:24 10/21/2023 21:28:13 Patient Care Request 10/21/2023 21:02:24 Patient Care Request 10/21/2023 21:02:24 Patient Care Request 10/21/2023 21:02:24 Patient Care Request 10/21/2023 21:02:25 Patient Care Request 10/21/2023 21:02:25 Patient Care Request 10/21/2023 21:02:25 ADDRESS: [address] [place] [id number] PHYS DOC NOTES: MEDICAL INFORMATION: Prescriptions Given: PATIENT EDUCATION INFORMATION: Instructions: Follow up: DIAGNOSIS: Abscess; Elevated blood pressure reading; Elevated troponin; Hyperglycemia; Pneumonia; Sepsis Normal [facility] ED Note-Physicianon 10-21-19 ED Note-Physician Basic Information Time Seen: Sean Thomas DO 10/21/2023 18:55 Chief Complaint Pt states has been feeling unwell over the past couple of weeks. Fevers, chills. States noticed abscess on L axilla and upper back. Noticed blood sugar has been in the 600s, not a diabetic. Was recently on steriods. States feels as though infection is in History of Present Illness HPI: Patient is a 43-year-old male who presents the ED for cough, fever, chills, and elevated blood glucose as well as boils. Patient states that for the past few weeks his blood sugar has been spiking and going down and he is unsure why. He states that he saw physician in [place] couple of months ago and they told him he was not diabetic at that time. He states that he has had a persistent cough for several weeks now and has been seen at different hospitals and they are unsure what is causing it. He states that he knows his blood sugar is spiking because he becomes very thirsty and he gets blurred vision and just overall does not feel well. Today he has developed an area of redness and swelling on his left scapula as well as in his left axilla. He states that he does not know what is going on and is frustrated he has not gotten any answers. ROS: Pertinent review of systems conducted and is negative except as noted above. Physical exam: General: nontoxic appearing and in no distress HEENT: Mucous membranes moist Neuro: awake and alert Neck: supple, trachea midline Card: Tachycardic, regular, no murmur or gallop Resp: Lungs clear to auscultation no wheeze or rhonchi Abd: Soft and nondistended. No tenderness to palpation with no rebound or guarding. Ext: No gross deformity or edema Skin: Area of erythema and slight swelling and tenderness approximately 1.5 cm in diameter over the left scapula. Area of erythema with slight induration proximately 1 cm in diameter on the inner aspect of his proximal left humerus. Physical Exam Vitals & Measurements T: 37.0 ?C(Oral) HR: 118(Peripheral) RR: 20 BP: 200/118 SpO2: 96% HT: 178 cm WT: 120 kg BMI: 37.87 Procedure Critical Care Time: 43 minutes billable from other separate procedures Medical Decision Making MEDICAL DECISION MAKING Number and Complexity of Problems Differential Diagnosis: [] [facility] Data External documents reviewed: N/A My EKG interpretation: Noted in chart if applicable My CT interpretation: N/A My X-ray interpretation: Noted in chart if applicable My Ultrasound interpretation: N/A Decision rules/scores evaluated: N/A Discussed with: N/A Treatment and Disposition ED Course: On arrival to ED the patient is tachycardic but not febrile. He is nontoxic-appearing. Fingerstick blood sugar is over 400. Will give him IV fluids and obtain a septic workup. He does have 2 small early skin abscesses on his left axilla and left scapula. These have induration and erythema but no clear fluctuant pockets for drainage at this time. 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 Chest x-ray is obtained and does show some haziness in the left lower lung concerning for pneumonia given his persistent cough and other symptoms. Will start him on Zosyn and vancomycin to give coverage for both the skin infection and pneumonia with the patient having a history of the MRSA. Blood work is also significant for leukocytosis, hyperglycemia, and elevated troponin. His pH is normal and his bicarb is within normal limits and he does not have an elevated anion gap so he is not in DKA at this time. With the patient's hyperglycemia with no known diabetes and with his morning meeting sepsis criteria and elevated troponin I do believe he would benefit from admission for further treatment. Case was discussed with the hospitalist on-call who agreed admit the patient for further medical management. Shared decision making: As above Code status: N/A Assessment/Plan Abscess (L02.91: Cutaneous abscess, unspecified) Elevated blood pressure reading (R03.0: Elevated blood-pressure reading, without diagnosis of hypertension) Elevated troponin (R79.89: Other specified abnormal findings of blood chemistry) Hyperglycemia (R73.9: Hyperglycemia, unspecified) Pneumonia (J18.9: Pneumonia, unspecified organism) Sepsis (A41.9: Sepsis, unspecified organism) Orders: piperacillin-tazobact am + Sodium Chloride 0.9% intravenous solution 50 mL, 3.375 gm = 1 EA, Injection, IV Piggyback, Once, Stop date 10/21/23 19:50:00 EDT, STAT, Start date 10/21/23 19:50:00 EDT, 100 mL/hr, Infuse over 30 minute(s) Sodium Chloride 0.9% intravenous solution, 1,000 mL, Soln-IV, IV, Once, Stop date 10/21/23 20:01:00 EDT, STAT, Start date 10/21/23 20:01:00 EDT, Infuse over 61, minute(s) Sodium Chloride 0.9% intravenous solution, 1,000 mL, Soln-IV, IV, Once, Stop date 10/21/23 18:52:00 EDT, STAT, Start date 10/21/23 18:52:00 EDT, Infuse over 61, minute(s) vancomycin + Generic Diluent 400 mL, Reason for Vancomycin: MRSA colonization or infection, 2,000 mg = 400 mL, Soln-IV, IV (more content not included)... Normal [facility] Comment on above: Result Comment: Elec tronically Signed By: Sean Thomas DO\.br\Date and Time Signed: 10/21/23 20:56 EDT ED Patient Education Noteon 10-21-2023 ED Patient Education Note Normal [facility] ED Patient Summaryon 024 ED Patient Summary [address] [address] Patient Discharge Instructions Person Information Name: DEVON MATHEW Age: 43 Years Arrival Date: 10/21/2023 18:35:40 Discharge Diagnosis: Abscess; Elevated blood pressure reading; Elevated troponin; Hyperglycemia; Pneumonia; Sepsis Primary Care Physician: HATTIE SHANE CNP Provider Information Primary Provider: Sean Thomas DO Advanced Manager Of Compliance:None The exam and treatment you received in the Emergency Department were for an urgent problem and are not intended as complete care. It is important that you follow up with a doctor, nurse practitioner, or physician?s recruiting assistant for ongoing care. If your symptoms become worse or you do not improve as expected and you are unable to reach your usual health care provider, you should return to the Emergency Department. We are available 24 hours a day. DEVON MATHEW has been given the following list of patient education materials, prescriptions and follow-up instructions: Follow-up Instructions: In the event that this physician does not participate in your insurance network, please consult with your insurance company to find a nearby participating provider. Patient Education Materials: A MESSAGE TO ALL PATIENTS REGARDING OPIOIDS PRESCRIPTION OPIOIDS: WHAT YOU NEED TO KNOW Prescription opioids can be used to help relieve yugiphkq-fd-kdjpso pain and are often prescribed following a surgery or injury, or for certain health conditions. These medications can be an important part of the treatment but also come with serious risks. It is important to work with your healthcare provider to make sure you are getting the safest, most effective care. WHAT ARE THE RISKS AND SIDE EFFECTS OF OPIOID USE? Prescription opioids carry serious risks of addiction and overdose, especially with prolonged use. An opioid overdose, often marked by slowed breathing, can cause sudden . The use of prescription opioids can have a number of side effects as well, even when taken as directed: ? Tolerance?meaning you might need to take more of the medication for the same pain relief ? Physical dependence?meaning you have symptoms of withdrawal when a medication is stopped ? Increased sensitivity to pain ? Constipation ? Nausea, vomiting, and dry mouth ? Sleepiness and dizziness ? Confusion ? Depression ? Low levels of testosterone that can result in lower sex drive, energy, and strength ? Itching and sweating RISKS ARE GREATER WITH: ? History of drug misuse, substance use disorder, or overdose ? Mental health conditions (such as depression or anxiety) ? Sleep apnea ? Older age (65 years and older) ? Avoid alcohol while taking prescription opioids. Also, unless specifically advised by your health care provider, medications to avoid include: ? Benzodiazepines (such as Xanax or Valium) ? Muscle relaxants (such as Soma or Flexeril) ? Hypnotics (such as Ambien or Lunesta) ? Other prescription opioids KNOW YOUR OPTIONS Talk to your health care provider about ways to manage your pain that don?t involve prescription opioids. Some of these options may actually work better and have fewer risks and side effects. Options may include: ? Pain relievers such as acetaminophen, ibuprofen, and naproxen ? Some medication that are also used for depression or seizures ? Physical therapy and exercise ? Cognitive behavioral therapy, a psychological, goal-directed approach, in which patients learn how to modify physical, behavioral, and emotional triggers of pain and stress. IF YOU ARE PRESCRIBED OPIOIDS FOR PAIN: ? Never take opioids in greater amounts or more often than prescribed. ? Follow up with your primary health care provider. o Work together to create a plan on how to manage your pain. o Talk about ways to help manage your pain that don?t involve prescription opioids. o Talk about any and all concerns and side effects. ? Help prevent misuse and abuse o Never sell or share prescription opioids. o Never use another person?s prescription opioids. ? Store prescription opioids in a secure place and out of reach of others (this may include visitors, children, friends, and family). ? Safely dispose of unused prescription opioids: Find your community drug take-back program or your pharmacy mail-back program, or flush them down the toilet, following guidance from the Food and Drug Administration (www.fda.gov/Drugs/Re sourcesForYou). ? Visit www.cdc.gov/drugoverd ose to learn about the risks of opioids abuse and overdose. ? If you believe you may be struggling with addiction, tell your health animal care taker and ask for guidance or call SAMHSA?S National Helpline at 5-065-356-TYHN. v Source: US Department of Health and Human Services/Center for Disease Control & Prevention [facility] (more content not included)... Normal [facility] Blood GasesOrdered By: Michelle Strauss on 10-21-2023 Allens Test Not Applicable (3/16/24 7:38 PM) Normal [facility] Resp Auto SS Drawn by lab Invalid Interpretation Code [facility] Resp Auto SS FIO2 BG 21 1 Invalid Interpretation Code [facility] Resp Auto SS pCO2 Maikel 40.7 mm[Hg] Normal 38.0 - 50.0 mmHg [facility] Resp Auto SS pH (Bld) 7.401 [pH] Normal 7.320 - 7.430 [facility] Resp Auto SS Sample Site OTHER (10/21/23 7:38 PM) Normal [facility] Resp Auto SS Sample Type Venous Draw (10/21/23 7:38 PM) Normal [facility] Resp Auto SS HEMATOLOGYOrdered By: SYSTEM SYSTEM on 10-21-2023 Basophils/100 WBC (Bld) 0.2 % Normal 0.0 - 2.0 % Rem[facility] Heme Basophils/Leukocytes Auto (Bld) [Pure # fraction] 0.0 E9/L Normal 0.0 - 0.2 E9/L [facility] Eosinophils (Bld) [#/Vol] 0.1 E9/L Normal 0.0 - 0.5 E9/L [facility] Eosinophils/100 WBC (Bld) 0.7 % Normal 0.0 - 8.0 % [facility] Erythrocyte distribution width (RBC) [Ratio] 13.7 % Normal 10.9 - 14.2 % [facility] Hematocrit (Bld) [Volume fraction] 41.6 % Normal 37.7 - 49.0 % [facility] Hemoglobin (Bld) [Mass/Vol] 14.3 g/dL Normal 13.5 - 17.5 gm/dL [facility] Lymphocytes (Bld) [#/Vol] 4.0 E9/L Normal 1.0 - 4.0 E9/L [facility] Lymphocytes/100 WBC (Bld) 25.2 % Normal 14.0 - 50.0 % [facility] MCH (RBC) [Entitic mass] 29.0 pg Normal 27.0 - 34.0 pg [facility] MCHC (RBC) [Mass/Vol] 34.3 g/dL Normal 31.4 - 36.0 gm/dL [facility] MCV (RBC) [Entitic vol] 84.7 fL Normal 80.0 - 100.0 fL [facility] Monocytes (Bld) [#/Vol] 0.8 E9/L Normal 0.2 - 1.0 E9/L [facility] Monocytes/100 WBC (Bld) 5.2 % Normal 4.0 - 14.0 % [facility] Neutrophils (Bld) [#/Vol] 10.9 E9/L High 2.0 - 7.5 E9/L [facility] Neutrophils/100 WBC (Bld) 68.7 % Normal 36.0 - 75.0 % [facility] Platelet mean volume (Bld) [Entitic vol] 9.5 fL Normal 6.4 - 10.8 fL [facility] Platelets (Bld) [#/Vol] 251.0 E9/L Normal 150. 0 - 500.0 E9/L [facility] RBC (Bld) [#/Vol] 4.9 E12/L Normal 4.3 - 5.9 E12/L [facility] WBC corrected for nucl RBC Auto (Bld) [#/Vol] 15.8 E9/L High 4.0 - 11.0 E9/L [facility] Influenza A&B Agon Influenzae A Ag Negative Normal Negative [facility] Comment on above: Performed By: #### 2 [id number] #### [facility] [address] [place] [address] Influenzae B Ag Negative Normal Negative [facility] Comment on above: Result Comment: Test sensitivity and specificity vary for age group, specimen type, antigen types, and prevalence of disease. Test results must be evaluated in conjunction with other clinical data available to the physician. Individuals who received nasally administered Influenza A vaccine may have positive test results up to 3 days after vaccination. Performed By: #### 2 [id number] #### [facility] [address] [place] [address] Lactic Acidon 10-21-2023 Lactic Acid Lvl 1.4 mmol/L Normal 0.5-2.2 [facility] Comment on above: Performed By: #### 2 [id number], [id number], 9974474, 5379499, [id number], [id number], 4594615, [id number], [id number] ####[facility] [id number] [place] [address] MICRO OTHER TESTSOrdered By: Kingsley Zheng on 10-21-2023 Influenzae A Ag Negative (10/21/23 7:25 PM) Normal Negative [facility] Man Sero Influenzae B Ag Negative 1 (10/21/23 7:25 PM) Normal Negative [facility] Comment on above: Interpretive Data: T est sensitivity and specificity vary for age group, specimen type, antigen types, and prevalence of disease. Test results must be evaluated in conjunction with other clinical data available to the physician. Individuals who received nasally administered Influenza A vaccine may have positive test results up to 3 days after vaccination. Rapid COV Int NEG Ctl Pass (10/21/23 7:25 PM) Normal [facility] Sero Rapid COV Int POS Ctl Pass (10/21/23 7:25 PM) Normal [facility] Sero SARS-CoV+SARS-CoV-2 (COVID-19) Ag IA.rapid Ql (Resp) Not Detected 16 (10/21/23 7:25 PM) Normal Not Detected [facility] Comment on above: Interpretive Data: T he RESAAS Veritor System for Rapid Detection of SARS-CoV-2 is a chromatographic digital immunoassay intended for the direct and qualitative detection of SARS-CoV-2 nucleocapsid antigens in nasal swabs from individuals who are suspected of COVID-19 by their healthcare provider within the first five days of the onset of symptoms. Negative results should be treated as presumptive, do not rule out SARS-CoV-2 infection and should not be used as the sole basis for treatment or patient management decisions, including infection control decisions. Negative results should be considered in the context of a patient s recent exposures, history and the presence of clinical signs and symptoms consistent with COVID-19, and confirmed with a molecular assay, if necessary, for patient management. For in vitro diagnostic use. In the [place], only for use under an Emergency Use Authorization. In the [place], this test has not been FDA cleared or approved; this test has been authorized by FDA under an EUA for use by authorized laboratories; use by laboratories certified under the CLIA, 42 U.S.C. 263a, that meet requirements to perform moderate, high, or waived complexity tests and at the Point of Care (POC), i.e., in patient care settings operating under a CLIA Certificate of Waiver, Certificate of Compliance, or Certificate of Accreditation. This test has been authorized only for the detection of proteins from SARS-CoV-2, not for any other viruses or pathogens; and, in the [place], this test is only authorized for the duration of the declaration that circumstances exist justifying the authorization of emergency use of in vitro diagnostics for detection and/or diagnosis of the virus that causes COVID-19 under Section 564(b)(1) of the Act, 21 U.S.C. 360bbb-3(b)(1), unless the authorization is terminated or revoked sooner. Monitor Recordon 10-21-2023 Monitor Record [id number]# 1.00TIFF Normal [facility] No Panel InformationOrdered By: ANGPROCESSSERVER MICROBIOLOGY on 10-21-2023 Blood Culture Charcoal No growth at 1 da y. Final to follow at 7 days. [facility] Blood Culture Charcoal No growth at 1 da y. Final to follow at 7 days. [facility] PT & PTTon 10-21-2023 aPTT Coag (PPP) [Time] 29.4 second(s) Normal 25.1-36.5 [facility] Comment on above: Result Comment: Para meter 15 days - 4 weeks 1 - 5 months 6 - 11 months 1 - 5 years 6 - 10 years 11 - 17 years PTT Mean: 35.4 (27.6-45.6) Mean: 33.5 (24.8-40.7) Mean: 32.4 (25.1-40.7) Mean: 31.6 (24.0-39.2) Mean: 31.6 (26.9-38.7) Mean: 31.0 (24.6-38.4) Pediatric Reference ranges were obtained from a study by Gustavo Rey et al. prepared from 1437 samples obtained at 7 different centers using the same coagulation reagent and instrumentation as [facility]. Currently there are no coagulation studies available worldwide for children to 14 days, and no normal ranges. Heparin therapeutic range (represented by Anti-Factor Xa activity of 0.2 - 0.4 U/mL) corresponds to PTT of 56.6 - 109.0 sec. Performed By: #### 2 [id number], [id number], 0970440, 4796265, [id number], [id number], [id number], [id number], [id number] #### [facility] [address] [place] [address] INR Coag (PPP) [Relative time] 1.02 {INR} Invalid Interpretation Code [facility] Comment on above: Result Comment: INR results are specifically intended to assess patients stabilized on long-term Anticoagulation therapy suggested INR?s ?Less Intensive Anticoagulation? 2.0 ? 3.0 Conventional Range 3.0 ? 4.5 Performed By: #### 2 [id number], [id number], 1046190, 7341289, 72143327, [id number], 8855938, [id number], [id number] #### [facility] [address] [place] [address] PT Coag (PPP) [Time] 11.4 second(s) Normal 9.4-12.5 [facility] Comment on above: Result Comment: 15 d ays - 4 weeks 1 - 5 months 6 -11 months 1 ? 5 years 6 ? 10 years 11 -17 years Mean: 11.2 (9.5 ? 12.6) Mean: 11.0 (9.7 ? 12.8) Mean: 11.0 (9.8 ? 13.0) Mean: 11.3 (9.9 ? 13.4) Mean: 11.7 (10.0 ? 14.6) Mean: 11.8 (10.0 - 14.1) Pediatric Reference ranges were obtained from a study by Gustavo Rey et al. prepared from 1437 samples obtained at 7 different centers using the same coagulation reagent and instrumentation as [facility]. Currently there are no coagulation studies available worldwide for children to 14 days, and no normal ranges. Performed By: #### 2 [id number], [id number], 1945900, 6577496, [id number], [id number], 2688911, 02602228, [id number] #### [facility] [address] [place] [address] Procalcitoninon 10-21-2023 Procalcitonin .06 ng/mL Normal .00-.50 [facility] Comment on above: Result Comment: <0.5 ng/mL Low risk of severe sepsis and/or shock >2.0 ng/mL High risk of severe sepsis and/or shock Concentrations under 0.5 ng/mL do not exclude local infections or systemic infections in their initial stages (e.g.. under six hours from onset of illness). PCT concentrations between 0.5 and 2.0 ng/mL should be interpreted with consideration of the patient's history. In this range, it is recommended to retest PCT within 6 to 24 hours. Performed By: #### 2 567694, 42905018, 0320444, 9140298, 28070108, [id number], 9532039, 12246964, [id number] ####[facility] [address] [place] [address] Rapid COVID Antigen ([facility])on 10-21-2023 Rapid COV Int NEG Ctl Pass Normal [facility] Comment on above: Performed By: #### 2 [id number] #### [facility] [address] [place] [address] Rapid COV Int POS Ctl Pass Normal [facility] Comment on above: Performed By: #### 2 [id number] #### [facility] [address] [place] [address] SARS-CoV+SARS-CoV-2 (COVID-19) Ag IA.rapid Ql (Resp) Not detected Normal Not Detected [facility] Comment on above: Result Comment: The itsDapperitor? System for Rapid Detection of SARS-CoV-2 is a chromatographic digital immunoassay intended for the direct and qualitative detection of SARS-CoV-2 nucleocapsid antigens in nasal swabs from individuals who are suspected of COVID-19 by their healthcare provider within the first five days of the onset of symptoms. Negative results should be treated as presumptive, do not rule out SARS-CoV-2 infection and should not be used as the sole basis for treatment or patient management decisions, including infection control decisions. Negative results should be considered in the context of a patient?s recent exposures, history and the presence of clinical signs and symptoms consistent with COVID-19, and confirmed with a molecular assay, if necessary, for patient management. For in vitro diagnostic use. In the [place], only for use under an Emergency Use Authorization. In the [facility], this test has not been FDA cleared or approved; this test has been authorized by FDA under an EUA for use by authorized laboratories; use by laboratories certified under the CLIA, 42 U.S.C. ?263a, that meet requirements to perform moderate, high, or waived complexity tests and at the Point of Care (POC), i.e., in patient care settings operating under a CLIA Certificate of Waiver, Certificate of Compliance, or Certificate of Accreditation. This test has been authorized only for the detection of proteins from SARS-CoV-2, not for any other viruses or pathogens; and, in the [place], this test is only authorized for the duration of the declaration that circumstances exist justifying the authorization of emergency use of in vitro diagnostics for detection and/or diagnosis of the virus that causes COVID-19 under Section 564(b)(1) of the Act, 21 U.S.C. ? 360bbb-3(b)(1), unless the authorization is terminated or revoked sooner. Performed By: #### 2 [id number] #### [facility] [address] [place] [address] Troponinon 10-21-2023 Troponin 46.80 pg/mL High 15.90-38.40 [facility] Comment on above: Result Comment: The 95% CI (Confidence Interval) PPV (Positive Predictive Value) for myocardial infarction in females is 38 pg/mL, in males 51 pg/mL. The results should be used in conjunction with clinical conditions of myocardial infarction. (Access High Sensitivity Troponin I Instructions For Use, Jesus Beebe, March 2018) Performed By: #### 2 668234, [id number], 4318420, 0085077, 68214907, [id number], 8871023, 18466710, [id number] ####[facility] [address] [place] [address] eGFRon 10-21-2023 eGFR 109 mL/min/1.73 m2 Normal >=59 [facility] Comment on above: Order Comment: Order added by Discern Expert. Performed By: #### 2 [id number], [id number], 2446968, 3461934, 83563507, [id number], 3029540, 71031261, [id number] #### [facility] [address] [place] [address] CT HEAD WITHOUT CONTRASTon 1 08-15-2020 CT [...] with dedicated CT if clinically warranted. Normal [facility] XR TIBIA AND FIBULA RIGHTon 06-15-2021 [...] fracture or dislocation. Follow-up as needed. Normal [facility] Basic Metab w/rfx MGon 06-09 (cont.) Normal [facility] Comment on above: Result Comment: Aver age GFR for 40-49 years old: 99 mL/min/1.73sq m Chronic Kidney Disease: <60 mL/min/1.73sq m Kidney failure: <15 mL/min/1.73sq m eGFR calculated using average adult body mass. Additional eGFR calculator available at: http://www.globalrph.nPario/multiple_crcl_2012.htm Performed By: #### B MPX, TROPIKELLYE, CDP #### [facility] [address] [place], [place] [address] Livestock Breeder: Soraya Simpson MD Anion gap [Moles/Vol] 10 mmol/L Normal 9-17 [facility] Comment on above: Performed By: #### B MPX, LOYDAI DIME, CDP #### [facility] [address] [place], [place] [address] Livestock Breeder: Soraya Simpson MD BUN/CRE Ratio 31 High 9-20 [facility] Comment on above: Performed By: #### B MPX TROPI DIME, CDP #### [facility] [address] [place] [address] [address] [place], [place] [id number] Livestock Breeder: Soraya Simpson MD Calcium [Mass/Vol] 8.8 mg/dL Normal 8.6-10.4 [facility] Comment on above: Performed By: #### B MPEMELY Courtney DIME, CDP #### [facility] [address] [place] [address] [address] [place], [place] [id number] Livestock Breeder: Soraya Simpson MD Chloride [Moles/Vol] 102 mmol/L Normal 98-107 [facility] Comment on above: Performed By: #### B MPXLOYDAI DIME, CDP #### [facility] [address] [place] [address] [address] [place], [place] [id number] Livestock Breeder: Soraya Simpson MD CO2 [Moles/Vol] 24 mmol/L Normal 20-31 [facility] Comment on above: Performed By: #### B MPX TROPI DIME, CDP #### [facility] [address] [place], [place] [address] Livestock Breeder: Soraya Simpson MD Creatinine [Mass/Vol] 0.52 mg/dL Low 0.70-1.20 [facility] Comment on above: Performed By: #### B MPX, TROPI, DIME, CDP #### [facility] [address] [place], [place] [address] Livestock Breeder: Soraya Simpson MD GFR, Amer >60 Normal >60 [facility] Comment on above: Performed By: #### B MPX, TROPI, DIME, CDP #### [facility] [address] [place] [address] Livestock Breeder: Soraya Simpson MD GFR,non Amer >60 Normal >60 [facility] Comment on above: Performed By: #### B MPX, TROPI, DIME, CDP #### [facility] [address] [place], [place] [address] Livestock Breeder: Soraya Simpson MD Glucose [Mass/Vol] 139 mg/dL High 70-99 [facility] Comment on above: Performed By: #### B MPX, TROPI, DIME, CDP #### [facility] [address] [place] [address] [address] [place], [place] [address]3083 Livestock Breeder: Soraya Simpson MD Potassium [Moles/Vol] 3.9 mmol/L Normal 3.7-5.3 [facility] Comment on above: Performed By: #### B MPX, TROPI DIME, CDP #### [facility] [address] [place] [address] [place] [address] Livestock Breeder: Soraya Simpson MD Sodium [Moles/Vol] 136 mmol/L Normal 135-144 [facility] Comment on above: Performed By: #### B MPX, TROPI, DIME, CDP #### [facility] [address] [place], [place] [address]83 Livestock Breeder: Soraya Simpson MD Staging: Normal [facility] Comment on above: Result Comment: Stag e 1: Some kidney damage normal GFR Stage 2: Mild kidney damage GFR 60-89 Stage 3: Moderate kidney damage GFR 30-59 Stage 4: Severe kidney damage GFR 15-29 Stage 5: Severe kidney damage GFR <15 ESRD - chronic treatment by dialysis or transplant Performed By: #### B EMELY GARDNER DIME, MINDY #### [facility] [address] [place] [address] Livestock Breeder: Soraya Simpson MD Urea nitrogen [Mass/Vol] 16 mg/dL Normal 6-20 [facility] Comment on above: Performed By: #### B EMELY GARDNER DIME, CDP #### [facility] [address] [place] [address] Livestock Breeder: Soraya Simpson MD Basic Metabolic Panel w/ Ref estefania to MGOrdered By: Micheal Kwok on 06-09-2021 Anion gap [Moles/Vol] 10 mmol/L 9 - 17 mmol/L [employer] Phone: Calcium [Mass/Vol] 8.8 mg/dL 8.6 - 10. 4 mg/dL [employer] Phone: Chloride [Moles/Vol] 102 mmol/L 98 - 10 7 mmol/L [employer] Phone: CO2 [Moles/Vol] 24 mmol/L 20 - 31 mmol/L [employer] Phone: Creatinine [Mass/Vol] 0.52 mg/dL Low 0.70 - 1.20 mg/dL [employer] Phone: GFR >60 >60 mL/min [employer] Phone: GFR Non- >60 >60 mL/min [facility] Phone: Glucose [Mass/Vol] 139 mg/dL High 70 - 99 mg/dL [facility] [employer] Phone: Interpretation and review of laboratory results Abnormal [facility] Phone: Potassium [Moles/Vol] 3.9 mmol/L 3.7 - 5.3 mmol/L [facility] Work Phone: Sodium [Moles/Vol] 136 mmol/L 135 - 144 mmol/L [facility] [employer] Work Phone: Urea nitrogen (BldV) [Mass/Vol] 16 mg/dL 6 - 20 mg/dL [facility] [employer] Phone: Urea nitrogen/Creatinine (Bld) [Mass ratio] 31 High [facility] Work Phone: [facility] [employer] Work Phone: CBC Auto DifferentialOrdered By: Micheal Kwok on 06-09-2021 Absolute Eos # 0.15 [facility] Work Phone: Absolute Immature Granulocyte 0.00 [facility] [employer] Work Phone: Absolute Lymph # 3.82 High [facility] Work Phone: Absolute Rogers # 0.59 [facility] Work Phone: Basophils (Bld) [#/Vol] 0.00 10*3/uL [facility] Work Phone: Basophils/100 WBC (Bld) 0 % 0 - 2 % M [facility] [employer] Phone: Differential Type NOT REPORTED [facility] Phone: Eosinophils/100 WBC (Bld) 1 % 1 - 4 % [facility] [employer] Phone: Hematocrit (Bld) [Volume fraction] 46.1 % 40.7 - 50.3 % [facility] [employer] Phone: Hemoglobin.gastrointest inal spec 1 Ql (Stl) 15.5 g/dL 13.0 - 17.0 g/dL [facility] Phone: Immature granulocytes/100 WBC (Bld) 0 % 0 [facility] Work Phone: Interpretation and review of laboratory results Abnormal [facility] Phone: Lymphocytes/100 WBC (Bld) 26 % 24 - 43 % [employer] Phone: MCH (RBC) [Entitic mass] 29.4 pg 25.2 - 33.5 pg [employer] Phone: MCHC (RBC) [Mass/Vol] 33.6 g/dL 28.4 - 34.8 g/dL [employer] Phone: MCV (RBC) [Entitic vol] 87.3 fL 82.6 - 102.9 fL [employer] Phone: Monocytes/100 WBC (Bld) 4 % 3 - 12 % M [employer] Phone: Morphology Mando (Bld) [Interp] Normal [employer] Phone: NRBC Automated 0.0 0.0 per 100 WBC [employer] Phone: Platelet distribution width (Bld) [Ratio] 12.9 % 11.8 - 14.4 % [employer] Phone: Platelet Estimate NOT REPORTED [employer] Phone: Platelet mean volume (Bld) [Entitic vol] 10.2 fL 8.1 - 13.5 fL [employer] Phone: Platelets (Bld) [#/Vol] 290 10*3/uL [employer] Phone: RBC (Bld) [#/Vol] 5.28 10*6/uL 4.21 - 5.7 7 m/uL [employer] Phone: RBC (Bld) [#/Vol] NOT REPORTED [employer] Phone: Segmented neutrophils/100 WBC (Bld) 69 % High 36 - 65 % [employer] Work Phone: Segs Absolute [address] Work Phone: WBC (Bld) [#/Vol] 14.7 10*3/uL High [facility] Work Phone: WBC (Bld) [#/Vol] NOT REPORTED [facility] Work Phone: [facility] [employer] Phone: CBC with Diffon 06-09-2021 Abs. Basophil 0.00 k/uL Normal 0.0-0.2 [facility] Comment on above: Performed By: #### B MPX, TROPI, DIME, CDP #### [facility] [address] [place], [place] [phone] Livestock Breeder: Soraya Simpson MD Abs.Imm.Granulocyte 0.00 k/uL Normal 0.00-0.30 [facility] Comment on above: Performed By: #### B MPX, TROPI, DIME, CDP #### [address] [place] [address] Livestock Breeder: Soraya Simpson MD Abs.Neutrophil (Seg) 10.14 k/uL High 1.50-8.10 [facility] Comment on above: Performed By: #### B MPX, TROPI, DIME, CDP #### [address] [place] [address] Livestock Breeder: Soraya Simpson MD Basophils/100 WBC (Bld) 0 % Normal 0-2 M [facility] Comment on above: Performed By: #### B MPX, TROPI, DIME, CDP #### [address] [place], [place] [address]4783 Livestock Breeder: Soraya Simpson MD Eosinophils (Bld) [#/Vol] 0.15 10*3/uL Normal 0.00-0.44 [facility] Comment on above: Performed By: #### B MPX, TROPI, DIME, CDP #### [address] [place], [place] [address] Livestock Breeder: Soraya Simpson MD Eosinophils/100 WBC (Bld) 1 % Normal 1-4 [facility] Comment on above: Performed By: #### B MPX, TROPI, DIME, CDP #### [facility] [address] [place], [place] [address]83 Livestock Breeder: Soraya Simpson MD Immature granulocytes/100 WBC (Bld) 0 % Normal 0 [facility] Comment on above: Performed By: #### B MPX, TROPI, DIME, CDP #### [facility] [address] [place], [place] [address] Livestock Breeder: Soraya Simpson MD Lymphocytes (Bld) [#/Vol] 3.82 10*3/uL High 1.10-3.70 [facility] Comment on above: Performed By: #### B MPX, TROPI, DIME, CDP #### [facility] [address] [place], [place] [address]83 Livestock Breeder: Soraya Simpson MD Lymphocytes/100 WBC (Bld) 26 % Normal 24-43 [facility] Comment on above: Performed By: #### B MPX, TROPI, DIME, CDP #### [address] [place], [place] 9704383 Livestock Breeder: Soraya Simpson MD Monocytes (Bld) [#/Vol] 0.59 10*3/uL Normal 0.10-1.20 [facility] Comment on above: Performed By: #### B MPX, TROPI, DIME, CDP #### [facility] [address] [place], [place] [address]3 Livestock Breeder: Soraya Simpson MD Monocytes/100 WBC (Bld) 4 % Normal 3-12 M [facility] Comment on above: Performed By: #### B MPX, TROPI, DIME, CDP #### [facility] [address] [place] [address] Livestock Breeder: Soraya Simpson MD Morphology Mando (Bld) [Interp] Normal Normal [facility] Comment on above: Performed By: #### B MPX, TROPI, DIME, CDP #### [facility] [address] [place], [place] [address]83 Livestock Breeder: Soraya Simpson MD Neutrophil (Seg) 69 % High 36-65 [facility] Comment on above: Performed By: #### B MPX, TROPI, DIME, CDP #### [facility] [address] [place], [place] 250[address] Livestock Breeder: Soraya Simpson MD Erythrocyte distribution width (RBC) [Ratio] 12.9 % Normal 11.8-14.4 [facility] Comment on above: Performed By: #### B MPX, TROPI, DIME, CDP #### [address] [place], [place] [address]83 Livestock Breeder: Soraya Simpson MD Hematocrit (Bld) [Volume fraction] 46.1 % Normal 40.7-50.3 [facility] Comment on above: Performed By: #### B MPX, TROPI, DIME, CDP #### [address] [place], [place] [address]17[address]83 Livestock Breeder: Soraya Simpson MD Hemoglobin (Bld) [Mass/Vol] 15.5 g/dL Normal 13.0-17.0 [facility] Comment on above: Performed By: #### B MPX, TROPI, DIME, CDP #### [facility] [address] [place], [place] 6327183 Livestock Breeder: Soraya Simpson MD MCH (RBC) [Entitic mass] 29.4 pg Normal 25.2-33.5 [facility] Comment on above: Performed By: #### B MPX, TROPI, DIME, CDP #### [address] [place], [place] [address]83 Livestock Breeder: Soraya Simpson MD MCHC (RBC) [Mass/Vol] 33.6 g/dL Normal 28.4-34.8 [facility] Comment on above: Performed By: #### B MPX, TROPI DIME, CDP #### [address] [place], [facility] Livestock Breeder: Soraya Simpson MD MCV (RBC) [Entitic vol] 87.3 fL Normal 82.6-102.9 M [facility] Comment on above: Performed By: #### B MPX, TROPI DIME, CDP #### [address] [place], [facility]83 Livestock Breeder: Soraya Simpson MD NRBC Automated 0.0 per 100 WBC Normal 0.0 [facility] Comment on above: Performed By: #### B MPX, TROPI DIME, CDP #### [address] [place], [facility] ( Livestock Breeder: Soraya Simpson MD Platelet mean volume (Bld) [Entitic vol] 10.2 fL Normal 8.1-13.5 [facility] Comment on above: Performed By: #### B MPXLOYDAI DIME, CDP #### [address] [place], [place] [address] Livestock Breeder: Soraya Simpson MD Platelets (Bld) [#/Vol] 290 10*3/uL Normal 138-453 [facility] Comment on above: Performed By: #### B MPX, TROPI DIME, CDP #### [address] [place] [address] Livestock Breeder: Soraya Simpson MD RBC (Bld) [#/Vol] 5.28 10*6/uL Normal 4.21-5.77 [facility] Comment on above: Performed By: #### B MPX, TROPI, DIME, CDP #### [facility] [address] [place] [address] Livestock Breeder: Soraya Simpson MD WBC (Bld) [#/Vol] 14.7 10*3/uL High 3.5-11.3 [facility] Comment on above: Performed By: #### B MPX, TROPI, DIME, CDP #### [facility] [address] [place] [address] Livestock Breeder: Soraya Simpson MD Auto Diff Performed NOT REPORTED Normal [facility] Comment on above: Performed By: #### B MPX, TROPI, DIME, CDP #### [address] [place] [address] Livestock Breeder: Soraya Simpson MD Platelet Comment NOT REPORTED Normal [facility] Comment on above: Performed By: #### B MPX, TROPI, DIME, CDP #### [facility] [address] [place] [address] [place] [address] Livestock Breeder: Soraya Simpson MD RBC morphology finding Nom (Bld) NOT REPORTED Normal [facility] Comment on above: Performed By: #### B MPX, TROPI, DIME, CDP #### [address] [place] [address] Livestock Breeder: Soraya Simpson MD WBC Morphology NOT REPORTED Normal [facility] Comment on above: Performed By: #### B MPX, TROPI, DIME, CDP #### [facility] [address] [place] [address] Livestock Breeder: Soraya Simpson MD COVID-19, RapidOrdered By: Trinidad Kwok on 06-09-2021 SARS-CoV-2 (COVID-19) RNA FERMIN+probe Ql (Unsp spec) Not detected Not Detected [facility] Work Phone: Comment on above: Rapid NAAT: [...] management decisions. Fact sheet for Healthcare Providers: https://www.fda.gov/media/443875/download Fact sheet for Patients: https://www.fda.gov/media/964011/download Methodology: Isothermal Nucleic Acid Amplification Specimen Description .NASOPHARYNGEAL SWAB [facility] Phone: [facility] Phone: D-Dimer Teston 06-09-2021 D-Dimer Test <0.27 Normal 0.00-0.59 [facility] Comment on above: Result Comment: When [...] with distal DVT. Performed By: #### B KENDRA, LJ HAN, MINDY #### [facility] [address] [place] [address] Livestock Breeder: Soraya Simpson MD D-Dimer, QuantitativeOrdered By: Micheal Kwok on 06-09-2021 D-Dimer, Quant <0.27 [facility] Work Phone: Comment on above: When combined with [...] more prevalent in patients with distal DVT. [employer] Work Phone: Laboratory - Chemistry and C hemistry - challengeOrdered By: Micheal Kwok on 06-09-2021 GFR/1.73 sq M.predicted MDRD (S/P/Bld) [Vol rate/Area] [facility] Work Phone: Comment on above: Average GFR for 40-4 9 years old: 99 mL/min/1.73sq m Chronic Kidney Disease: <60 mL/min/1.73sq m Kidney failure: <15 mL/min/1.73sq m eGFR calculated using average adult body mass. Additional eGFR calculator available at: http://www.Slantrange/multiple_crcl_2012.htm Stage 1: Some kidney damage normal GFR Stage 2: Mild kidney damage GFR 60-89 Stage 3: Moderate kidney damage GFR 30-59 Stage 4: Severe kidney damage GFR 15-29 Stage 5: Severe kidney damage GFR <15 ESRD - chronic treatment by dialysis or transplant [id number] 06-09-2021 SARS-CoV-2 (COVID-19) RNA FERMIN+probe Ql (Unsp spec) Not detected Normal NOTDET [facility] Comment on above: Result Comment: Rapid [...] management decisions. Fact sheet for Healthcare Providers: https://www.fda.gov/media/931132/download Fact sheet for Patients: https://www.fda.gov/media/704476/download Methodology: Isothermal Nucleic Acid Amplification Performed By: #### C OVRB #### [facility] [address] [place] [address] Livestock Breeder: Soraya Simpson MD Troponinon 06-09-2021 Troponin, High Sens 8 ng/L Normal 0-22 [facility] Comment on above: Result Comment: High Sensitivity Troponin values cannot be compared with other Troponin methodologies. Patients with high levels of Biotin oral intake (i.e >5mg/day) may have falsely decreased Troponin levels. Samples collected within 8 hours of biotin intake may require additional information for diagnosis. Performed By: #### B MPX, TROPI, DIME, CDP #### [facility] [address] [place] [address] Livestock Breeder: Soraya Simpson MD Troponin Interp. NOT REPORTED Normal [facility] Comment on above: Performed By: #### B MPX, TROPI, DIME, CDP #### [facility] [address] [place] [address] Livestock Breeder: Soraya Simpson MD Troponin T NOT REPORTED Normal <0.03 [facility] Comment on above: Performed By: #### B MPX, TROPI, DIME, CDP #### [facility] [address] [place] [address] Livestock Breeder: Soraya Simpson MD TroponinOrdered By: Micheal Kwok on 06-09-2021 Troponin Interp NOT REPORTED [facility] Work Phone: Troponin T NOT REPORTED <0.03 ng/mL [facility] Work Phone: Troponin, High Sensitivity 8 ng/L 0 - 22 ng/L [facility] Work Phone: Comment on above: High Sensitivity Troponin values cannot be compared with other Troponin methodologies. Patients with high levels of Biotin oral intake (i.e >5mg/day) may have falsely decreased Troponin levels. Samples collected within 8 hours of biotin intake may require additional information for diagnosis. [facility] Work Phone: XR CHEST PORTABLEon 06-09-20 21 XR CHEST PORTABLE EXAMINATION: ONE XRAY [...] Sadi Olmedo MD 06/09/21 Final result Normal [facility] XR CHEST PORTABLEOrdered By: Micheal Kwok on 06-09-2021 Unremarkable single portable AP chest. [employer] Phone: EXAMINATION: ONE XRA Y VIEW OF [...] seen. Bones and soft tissues are unremarkable. [facility] Phone: Jasen, [facility] Incoming Radiant Results From [email or web address] - 06/09/2021 6:01 AM EDT EXAMINATION: ONE [...] unremarkable. IMPRESSION: Unremarkable single portable AP chest. [employer] Phone: [facility] Phone: COVID-19, RapidOrdered By: Geovani Tapia on 06-07-2021 SARS-CoV-2 (COVID-19) RNA FERMIN+probe Ql (Unsp spec) Not detected Not Detected [employer] Phone: Comment on above: Rapid NAAT: The [...] management decisions. Fact sheet for Healthcare Providers: https://www.fda.gov/media/288509/download Fact sheet for Patients: https://www.fda.gov/media/300625/download Methodology: Isothermal Nucleic Acid Amplification Specimen Description .NASOPHARYNGEAL SWAB [facility] [employer] Phone: [facility] Phone: [id number] 06-07-2021 SARS-CoV-2 (COVID-19) RNA FERMIN+probe Ql (Unsp spec) Not detected Normal [facility] Comment on above: Result Comment: Rapid [...] management decisions. Fact sheet for Healthcare Providers: https://www.fda.gov/media/613141/download Fact sheet for Patients: https://www.fda.gov/media/385305/download Methodology: Isothermal Nucleic Acid Amplification Performed By: #### C OVRB #### [facility] [address] [place] [address] Livestock Breeder: Soraya Simpson MD XR CHEST PORTABLEon 06-07-20 XR CHEST PORTABLE EXAMINATION: ONE XRAY VIEW [...] Ger Morin MD 06/07/21 Final result Normal [facility] XR CHEST PORTABLEOrdered By: Linette Tapia on 06-07-2021 No acute process. [facility] Work Phone: EXAMINATION: ONE XRA Y VIEW OF THE CHEST 06/07/2021 2:53 pm COMPARISON: 02/17/2018 HISTORY: ORDERING SYSTEM PROVIDED HISTORY: cough, chest pain TECHNOLOGIST PROVIDED HISTORY: cough, chest pain FINDINGS: The lungs are without acute focal process. There is no effusion or pneumothorax. The cardiomediastinal silhouette is without acute process. The osseous structures are without acute process. [facility] Work Phone: Jasen, [facility] Incoming Radiant Results From [email or web address] - 06/07/2021 6:16 PM EDT EXAMINATION: ONE XRAY VIEW OF THE CHEST 06/07/2021 2:53 pm COMPARISON: 02/17/2018 HISTORY: ORDERING SYSTEM PROVIDED HISTORY: cough, chest pain TECHNOLOGIST PROVIDED HISTORY: cough, chest pain FINDINGS: The lungs are without acute focal process. There is no effusion or pneumothorax. The cardiomediastinal silhouette is without acute process. The osseous structures are without acute process. IMPRESSION: No acute process. [facility] Work Phone: [facility] [employer] Phone: CBC AUTO DIFFon 02-11-2021 BASO # 0.1 103/ul Normal 0.0-0.1 [facility] Comment on above: Performed By: #### C BC #### [facility] [address] [place], [place] [address] Lora Spenceen Basophils/100 WBC (Bld) 0.5 % Normal 0.2-2.0 [facility] Comment on above: Performed By: #### C BC #### [facility] [address] [place], [place] [id number] Lora Waleska EO # 0.1 103/ul Normal 0.0-0.7 [facility] Comment on above: Performed By: #### C BC #### [facility] [address] [place], [place] [id number] Lora Waleska Eosinophils/100 WBC (Bld) 1.0 % Normal 0.9-7.0 [facility] Comment on above: Performed By: #### C BC #### [facility] [address] [place] [address] Lora Waleska Erythrocyte distribution width (RBC) [Ratio] 13.3 % Normal 11.0-15.0 [facility] Comment on above: Performed By: #### C BC #### [facility] [address] [place] [address] Lora Waleska Hematocrit (Bld) [Volume fraction] 42.5 % Normal 42.0-54.0 [facility] Comment on above: Performed By: #### C BC #### [facility] [address] [place], [place] [id number] Lora Waleska Hemoglobin (Bld) [Mass/Vol] 14.5 g/dL Normal 14.0-18.0 [facility] Comment on above: Performed By: #### C BC #### [facility] [address] [place], [place] [id number] Lora Waleska IG # 0.05 10e3/ul Critically high 0.00-0.03 [facility] Comment on above: Performed By: #### C BC #### [facility] [address] [place] [address] Lora Waleska IG % 0.3 % Normal 0.0-0.5 [facility] Comment on above: Performed By: #### C BC #### [facility] [address] [place], [place] [id number] Lora Waleska LYMPH # 3.4 103/ul Normal 1.2-3.8 [facility] Comment on above: Performed By: #### C BC #### [facility] [address] [place] [id number] Lora Waleska Lymphocytes/100 WBC (Bld) 23.1 % Normal 20.5-60.0 [facility] Comment on above: Performed By: #### C BC #### [facility] [address] [place], [place] [id number] Lora Waleska MANUAL DIFF REQ NO Normal [facility] Comment on above: Performed By: #### C BC #### [facility] [address] [place], [place] [id number] Lora Waleska MCH (RBC) [Entitic mass] 29.1 pg Normal 25.9-34.0 [facility] Comment on above: Performed By: #### C BC #### [facility] [address] [place], [place] [id number] Loralyn Galeano MCHC (RBC) [Mass/Vol] 34.1 g/dL Normal 29.9-35.2 [facility] Comment on above: Performed By: #### C BC #### [facility] [address] [place], [place] [id number] Lora Waleska MCV (RBC) [Entitic vol] 85.3 fL Normal 80.0-94.0 [facility] Comment on above: Performed By: #### C BC #### [facility] [address] [place], [place] [id number] Lora Walseka MONO # 0.9 103/ul Critically high 0.3-0.8 [facility] Comment on above: Performed By: #### C BC #### [facility] [address] [place], [place] [id number] Lora Waleska Monocytes/100 WBC (Bld) 6.5 % Normal 1.7-12.0 [facility] Comment on above: Performed By: #### C BC #### [facility] [address] [place], [place] [id number] Lora Waleska NEUT # 10.0 103/ul Critically high 1.4-6.5 [facility] Comment on above: Performed By: #### C BC #### [facility] [address] [place], [place] [id number] Lora Waleska Neutrophils/100 WBC (Bld) 68.6 % Normal 43.0-75.0 [facility] Comment on above: Performed By: #### C BC #### [facility] [address] [place], [place] [id number] Lora Galeano Platelet mean volume (Bld) [Entitic vol] 11.2 fL Normal 9.5-13.5 [facility] Comment on above: Performed By: #### C BC #### [facility] [address] [place] [address] Lora Galeano PLT 261 103/ul Normal 150-450 [facility] Comment on above: Performed By: #### C BC #### [facility] [address] [place] [address] Lora Galeano RBC 4.98 106/ul Normal 4.70-6.10 [facility] Comment on above: Performed By: #### C BC #### [facility] [address] [place], [place] [id number] Lora Galeano WBC 14.5 103/ul Critically high 4.0-11.0 [facility] Comment on above: Performed By: #### C BC #### [facility] [address] [place], [place] [id number] Lora Galeano CT LSPINE WO CONon CT [...] SORAYA STEWART Date: 2021-02-11 16:04 Normal [facility] PROF CHEM 8 (BAS METB)on Anion gap [Moles/Vol] 14.3 mmol/L Normal [facility] Comment on above: Performed By: #### B MP #### [facility] [address] [place], [place] [id number] Lora Waleska Calcium [Mass/Vol] 8.8 mg/dL Normal 8.4-10.2 [facility] Comment on above: Performed By: #### B MP #### [facility] [address] [place] [address] Lora Waleska Chloride [Moles/Vol] 104 mmol/L Normal 98-107 [facility] Comment on above: Performed By: #### B MP #### [facility] [address] [place] [address] Lora Waleska CO2 [Moles/Vol] 24.3 mmol/L Normal 22.0-30.0 [facility] Comment on above: Performed By: #### B MP #### [facility] [address] [place], [place] [id number] Lora Waleska Creatinine [Mass/Vol] 0.79 mg/dL Normal 0.66-1.25 [facility] Comment on above: Performed By: #### B MP #### [facility] [address] [place], [place] [id number] Lora Waleska EGFR-AF BRAZILIAN >60 Normal >=60 [facility] Comment on above: Performed By: #### B MP #### [facility] [address] [place], [place] [id number] Lora Waleska EGFR-NON AF BRAZILIAN >60 Normal >=60 [facility] Comment on above: Performed By: #### B MP #### [facility] [address] [place], [place] [id number] Lora Waleska Glucose [Mass/Vol] 107 mg/dL Critically high 74-106 T [facility] Comment on above: Performed By: #### B MP #### [facility] [address] [place], [place] [id number] Lora Waleska Potassium [Moles/Vol] 3.6 mmol/L Normal 3.4-5.0 [facility] Comment on above: Performed By: #### B MP #### [facility] [address] [place], [place] [address] Lora Waleska Sodium [Moles/Vol] 139 mmol/L Normal 137-145 [facility] Comment on above: Performed By: #### B MP #### [facility] [address] [place], [place] [address] Lora Waleska Urea nitrogen [Mass/Vol] 9.0 mg/dL Normal 9.0-20.0 [facility] Comment on above: Performed By: #### B MP #### [facility] [address] [place], [place] [address] Lora Waleska Urea nitrogen/Creatinine [Mass ratio] 11.4 mg/mg Normal [facility] Comment on above: Performed By: #### B MP #### [facility] [address] [place], [place] [address] Loralyn Spenceen Amylaseon 06-13-2019 Amylase [Catalytic activity/Vol] 58 U/L Normal 28-100 [facility] Comment on above: Performed By: #### C BC, PT, CMPX, ALEJANDRO, LIP, MG, KAM, TRIG #### [facility] [address] [place], [place] [id number] Livestock Breeder: Sadi Gambino MD #### IOCAL #### [facility] [address] [place], [place] [id number] Livestock Breeder: Sha Nicholson MD Amylase [Catalytic activity/Vol] 58 U/L 28 - 100 U/L [place] CBC Auto Differentialon -0 Basophils (Bld) [#/Vol] 0.04 10*3/uL [place] Basophils/100 WBC (Bld) 0 % 0 - 2 % [place] Differential Type NOT REPORTED [place] Eosinophils (Bld) [#/Vol] 10*3/uL [place] Eosinophils/100 WBC (Bld) 0 % Low 1 - 4 % [place] Erythrocyte distribution width (RBC) [Ratio] 12.2 % 11.8 - 14.4 % [place] Hematocrit (Bld) [Volume fraction] 40.6 % Low 40.7 - 50.3 % [place] Hemoglobin (Bld) [Mass/Vol] 14.7 g/dL 13 - 17 g/dL [place] Immature granulocytes (Bld) [#/Vol] 0.10 10*3/uL [place] Immature granulocytes (Bld) [#/Vol] 1 % High 0 [place] Interpretation and review of laboratory results Abnormal [place] Lymphocytes (Bld) [#/Vol] 2.50 10*3/uL [place] Lymphocytes/100 WBC (Bld) 16 % Low 24 - 43 % [place] MCH (RBC) [Entitic mass] 30.9 pg 25.2 - 33.5 pg [place] MCHC (RBC) [Mass/Vol] 36.2 g/dL High 28.4 - 34.8 g/dL [place] MCV (RBC) [Entitic vol] 85.5 fL 82.6 - 102.9 fL [place] Monocytes (Bld) [#/Vol] 1.08 10*3/uL [place] Monocytes/100 WBC (Bld) 7 % 3 - 12 % [place] Platelet mean volume (Bld) [Entitic vol] 10.7 fL 8.1 - 13.5 fL [place] Platelets (Bld) [#/Vol] 299 10*3/uL [place] Platelets (Bld) [#/Vol] NOT REPORTED [place] RBC (Bld) [#/Vol] 4.75 10*6/uL 4.21 - 5.7 7 m/uL [place] RBC morphology finding Nom (Bld) NOT REPORTED [place] Segmented neutrophils/100 WBC (Bld) 77 % High 36 - 65 % [place] Segs Absolute 12.16 High [place] WBC (Bld) [#/Vol] 15.9 10*3/uL High [place] WBC (Bld) [#/Vol] 0.0 10*3/uL 0.0 per 10 0 WBC [place] WBC Morphology NOT REPORTED [place] CBC with Diffon 06-13-2019 Abs. Basophil 0.04 k/uL Normal 0.00-0.20 [facility] Comment on above: Performed By: #### C BC, PT, CMPX, ALEJANDRO, LIP, MG, KAM, TRIG #### [facility] [address] [place] [address] Livestock Breeder: Sadi Gambino MD #### IOCAL #### [place] [address] Livestock Breeder: Sha Nicholson MD Abs.Imm.Granulocyte 0.10 k/uL Normal 0.00-0.30 [facility] Comment on above: Performed By: #### C BC, PT, CMPX, ALEJANDRO, LIP, MG, KAM, TRIG #### [facility] [address] [place] [address] Livestock Breeder: Sadi Gambino MD #### IOCAL #### [address] [address] Livestock Breeder: Sha Nicholson MD Abs.Neutrophil (Seg) 12.16 k/uL High 1.50-8.10 [facility] Comment on above: Performed By: #### C BC, PT, CMPX, ALEJANDRO, LIP, MG, KAM, TRIG #### [facility] [address] [place] [address] Livestock Breeder: Sadi Gambino MD #### IOCAL #### [address] [address] Livestock Breeder: Sha Nicholson MD Basophils/100 WBC (Bld) 0 % Normal 0-2 M [facility] Comment on above: Performed By: #### C BC, PT, CMPX, ALEJANDRO, LIP, MG, KAM, TRIG #### [facility] [address] [place] [address] Livestock Breeder: Sadi Gambino MD #### IOCAL #### [address] [address] Livestock Breeder: Sha Nicholson MD Eosinophils (Bld) [#/Vol] 10*3/uL Normal 0.00-0.44 [facility] Comment on above: Performed By: #### C BC, PT, CMPX, ALEJANDRO, LIP, MG, KAM, TRIG #### [facility] [address] [place] [address] Livestock Breeder: Sadi Gambino MD #### IOCAL #### [address] [address] Livestock Breeder: Sha Nicholson MD Eosinophils/100 WBC (Bld) 0 % Low 1-4 [facility] Comment on above: Performed By: #### C BC, PT, CMPX, ALEJANDRO, LIP, MG, KAM, TRIG #### [facility] [address] [place] [address] Livestock Breeder: Sadi Gambino MD #### IOCAL #### [address] [address] Livestock Breeder: Sha Nicholson MD Erythrocyte distribution width (RBC) [Ratio] 12.2 % Normal 11.8-14.4 [facility] Comment on above: Performed By: #### C BC, PT, CMPX, ALEJANDRO, LIP, MG, KAM, TRIG #### [facility] [address] [place] [address] Livestock Breeder: Sadi Gambino MD #### IOCAL #### [address] [address] Livestock Breeder: Sha Nicholson MD Hematocrit (Bld) [Volume fraction] 40.6 % Low 40.7-50.3 [facility] Comment on above: Performed By: #### C BC, PT, CMPX, ALEJANDRO, LIP, MG, KAM, TRIG #### [facility] [address] [place] [address] Livestock Breeder: Sadi Gambino MD #### IOCAL #### [address] [address] Livestock Breeder: Sha Nicholson MD Hemoglobin (Bld) [Mass/Vol] 14.7 g/dL Normal 13.0-17.0 [facility] Comment on above: Performed By: #### C BC, PT, CMPX, ALEJANDRO, LIP, MG, KAM, TRIG #### [facility] [address] [place] [address] Livestock Breeder: Sadi Gambino MD #### IOCAL #### [address] [address] Livestock Breeder: Sha Nicholson MD Immature granulocytes (Bld) [#/Vol] 1 % High 0 [facility] Comment on above: Performed By: #### C BC, PT, CMPX, ALEJANDRO, LIP, MG, KAM, TRIG #### [facility] [address] [place] [address] Livestock Breeder: Sadi Gambino MD #### IOCAL #### [address] [address] Livestock Breeder: Sha Nicholson MD Lymphocytes (Bld) [#/Vol] 2.50 10*3/uL Normal 1.10-3.70 [facility] Comment on above: Performed By: #### C BC, PT, CMPX, ALEJANDRO, LIP, MG, KAM, TRIG #### [facility] [address] [place] [address] Livestock Breeder: Sadi Gambino MD #### IOCAL #### [address] [address] Livestock Breeder: Sha Nicholson MD Lymphocytes/100 WBC (Bld) 16 % Low 24-43 [facility] Comment on above: Performed By: #### C BC, PT, CMPX, ALEJANDRO, LIP, MG, KAM, TRIG #### [facility] [address] [place] [address] Livestock Breeder: Sadi Gambino MD #### IOCAL #### [address] [address] Livestock Breeder: Sha Nicholson MD MCH (RBC) [Entitic mass] 30.9 pg Normal 25.2-33.5 [facility] Comment on above: Performed By: #### C BC, PT, CMPX, ALEJANDRO, LIP, MG, KAM, TRIG #### [facility] [address] [place] [address] Livestock Breeder: Sadi Gambino MD #### IOCAL #### [address] [address] Livestock Breeder: Sha Nicholson MD MCHC (RBC) [Mass/Vol] 36.2 g/dL High 28.4-34.8 [facility] Comment on above: Performed By: #### C BC, PT, CMPX, ALEJANDRO, LIP, MG, KAM, TRIG #### [facility] [address] [place] [address] Livestock Breeder: Sadi Gambino MD #### IOCAL #### [address] [address] Livestock Breeder: Sha Nicholson MD MCV (RBC) [Entitic vol] 85.5 fL Normal 82.6-102.9 M [facility] Comment on above: Performed By: #### C BC, PT, CMPX, ALEJANDRO, LIP, MG, KAM, TRIG #### [facility] [place] [address] Livestock Breeder: Sadi Gambino MD #### IOCAL #### [address] [address] Livestock Breeder: Sha Nicholson MD Monocytes (Bld) [#/Vol] 1.08 10*3/uL Normal 0.10-1.20 [facility] Comment on above: Performed By: #### C BC, PT, CMPX, ALEJANDRO, LIP, MG, KAM, TRIG #### [facility] [address] [place] [address] Livestock Breeder: Sadi Gambino MD #### IOCAL #### [address] [address] Livestock Breeder: Sha Nicholson MD Monocytes/100 WBC (Bld) 7 % Normal 3-12 [facility] Comment on above: Performed By: #### C BC, PT, CMPX, ALEJANDRO, LIP, MG, KAM, TRIG #### [facility] [address] [place] [address] Livestock Breeder: Sadi Gambino MD #### IOCAL #### [address] [address] Livestock Breeder: Sha Nicholson MD Neutrophil (Seg) 77 % High 36-65 [facility] Comment on above: Performed By: #### C BC, PT, CMPX, ALEJANDRO, LIP, MG, KAM, TRIG #### [facility] [place] [address] Livestock Breeder: Sadi Gambino MD #### IOCAL #### [address] [address] Livestock Breeder: Sha Nicholson MD NRBC Automated 0.0 per 100 WBC Normal 0.0 [facility] Comment on above: Performed By: #### C BC, PT, CMPX, ALEJANDRO, LIP, MG, KAM, TRIG #### [facility] [address] [place] [address] Livestock Breeder: Sadi Gambino MD #### IOCAL #### [address] [address] Livestock Breeder: Sha Nicholson MD Platelet mean volume (Bld) [Entitic vol] 10.7 fL Normal 8.1-13.5 [facility] Comment on above: Performed By: #### C BC, PT, CMPX, ALEJANDRO, LIP, MG, KAM, TRIG #### [facility] [address] [place] [address] Livestock Breeder: Sadi Gambino MD #### IOCAL #### [address] [address] Livestock Breeder: Sha Nicholson MD Platelets (Bld) [#/Vol] 299 10*3/uL Normal 138-453 [facility] Comment on above: Performed By: #### C BC, PT, CMPX, ALEJANDRO, LIP, MG, KAM, TRIG #### [facility] [address] [place] [address] Livestock Breeder: Sadi Gambino MD #### IOCAL #### [address] [address] Livestock Breeder: Sha Nicholson MD RBC (Bld) [#/Vol] 4.75 10*6/uL Normal 4.21-5.77 [facility] Comment on above: Performed By: #### C BC, PT, CMPX, ALEJANDRO, LIP, MG, KAM, TRIG #### [facility] [address] [place] [address] Livestock Breeder: Sadi Gambino MD #### IOCAL #### [address] [address] Livestock Breeder: Sha Nicholson MD WBC (Bld) [#/Vol] 15.9 10*3/uL High 3.5-11.3 [facility] Comment on above: Performed By: #### C BC, PT, CMPX, ALEJANDRO, LIP, MG, KAM, TRIG #### [facility] [address] [place] [address] Livestock Breeder: Sadi Gambino MD #### IOCAL #### [address] [address] Livestock Breeder: Sha Nicholson MD Auto Diff Performed NOT REPORTED Normal [facility] Comment on above: Performed By: #### C BC, PT, CMPX, ALEJANDRO, LIP, MG, KAM, TRIG #### [facility] [address] [place] [address] Livestock Breeder: Sadi Gambino MD #### IOCAL #### [address] [address] Livestock Breeder: Sha Nicholson MD Platelets (Bld) [#/Vol] NOT REPORTED Normal [facility] Comment on above: Performed By: #### C BC, PT, CMPX, ALEJANDRO, LIP, MG, KAM, TRIG #### [facility] [address] [place] [address] [place] [address] Livestock Breeder: Sadi Gambino MD #### IOCAL #### [address] [address] Livestock Breeder: Sha Nicholson MD RBC morphology finding Nom (Bld) NOT REPORTED Normal [facility] Comment on above: Performed By: #### C BC, PT, CMPX, ALEJANDRO, LIP, MG, KAM, TRIG #### [facility] [place] [address] Livestock Breeder: Sadi Gambino MD #### IOCAL #### [address] [phone] Livestock Breeder: Sha Nicholson MD WBC Morphology NOT REPORTED Normal [facility] Comment on above: Performed By: #### C BC, PT, CMPX, ALEJANDRO, LIP, MG, KAM, TRIG #### [facility] [address] [place] [address] [phone] Livestock Breeder: Sadi Gambino MD #### IOCAL #### [address] [phone] Livestock Breeder: Sha Nicholson MD Comp Metab w/Bili Pron 06-13 (cont.) Normal [facility] Comment on above: Result Comment: Aver age GFR for 30-39 years old: 107 mL/min/1.73sq m Chronic Kidney Disease: <60 mL/min/1.73sq m Kidney failure: <15 mL/min/1.73sq m eGFR calculated using average adult body mass. Additional eGFR calculator available at: http://www.[employer].com/multiple_crcl_2012.htm Performed By: #### C BC, PT, CMPX, ALEJANDRO, LIP, MG, KAM, TRIG #### [facility] [address] [place] [address] Livestock Breeder: Sadi Gambino MD #### IOCAL #### [address] [address] Livestock Breeder: Sha Nicholson MD Albumin [Mass/Vol] 4.3 g/dL Normal 3.5-5.2 [facility] Comment on above: Performed By: #### C BC, PT, CMPX, ALEJANDRO, LIP, MG, KAM, TRIG #### [facility] [address] [place] [address] Livestock Breeder: Sadi Gambino MD #### IOCAL #### [address] [address] Livestock Breeder: Sha Nicholson MD Alkaline Phos 91 U/L Normal 40-129 [facility] Comment on above: Performed By: #### C BC, PT, CMPX, ALEJANDRO, LIP, MG, KAM, TRIG #### [facility] [address] [place] [address] Livestock Breeder: Sadi Gambino MD #### IOCAL #### [address] [address] Livestock Breeder: Sha Nicholson MD ALT [Catalytic activity/Vol] 187 U/L High 5-41 [facility] Comment on above: Performed By: #### C BC, PT, CMPX, ALEJANDRO, LIP, MG, KAM, TRIG #### [facility] [address] [place] [address] Livestock Breeder: Sadi Gambino MD #### IOCAL #### [address] [address] Livestock Breeder: Sha Nicholson MD Anion gap [Moles/Vol] 12 mmol/L Normal 9-17 [facility] Comment on above: Performed By: #### C BC, PT, CMPX, ALEJANDRO, LIP, MG, KAM, TRIG #### [facility] [address] [place] [address] Livestock Breeder: Sadi Gambino MD #### IOCAL #### [address] [address] Livestock Breeder: Sha Nicholson MD AST [Catalytic activity/Vol] 91 U/L High <40 [facility] Comment on above: Performed By: #### C BC, PT, CMPX, ALEJANDRO, LIP, MG, KAM, TRIG #### [facility] [address] [place] [address] Livestock Breeder: Sadi Gambino MD #### IOCAL #### [address] [address] Livestock Breeder: Sha Nicholson MD Bilirubin Ql (U) 0.74 mg/dL Normal 0.3-1.2 [facility] Comment on above: Performed By: #### C BC, PT, CMPX, ALEJANDRO, LIP, MG, KAM, TRIG #### [facility] [address] [place] [address] Livestock Breeder: Sadi Gambino MD #### IOCAL #### [address] [address] Livestock Breeder: Sha Nicholson MD Bilirubin, Indirect 0.46 mg/dL Normal 0.00-1.00 [facility] Comment on above: Performed By: #### C BC, PT, CMPX, ALEJANDRO, LIP, MG, KAM, TRIG #### [facility] [address] [place] [address] Livestock Breeder: Sadi Gambino MD #### IOCAL #### [address] [address] Livestock Breeder: Sha Nicholson MD Bilirubin.direct [Mass/Vol] 0.28 mg/dL Normal <0.31 [facility] Comment on above: Performed By: #### C BC, PT, CMPX, ALEJANDRO, LIP, MG, KAM, TRIG #### [facility] [address] [place] [address] Livestock Breeder: Sadi Gambino MD #### IOCAL #### [address] [address] Livestock Breeder: Sha Nicholson MD Calcium [Mass/Vol] 9.3 mg/dL Normal 8.6-10.4 [facility] Comment on above: Performed By: #### C BC, PT, CMPX, ALEJANDRO, LIP, MG, KAM, TRIG #### [facility] [address] [place] [address] Livestock Breeder: Sadi Gambino MD #### IOCAL #### [address] [address] Livestock Breeder: Sha Nicholson MD Chloride [Moles/Vol] 100 mmol/L Normal 98-107 [facility] Comment on above: Performed By: #### C BC, PT, CMPX, ALEJANDRO, LIP, MG, KAM, TRIG #### [facility] [address] [place] [address] Livestock Breeder: Sadi Gambino MD #### IOCAL #### [address] [address] Livestock Breeder: Sha Nicholson MD CO2 [Moles/Vol] 26 mmol/L Normal 20-31 [facility] Comment on above: Performed By: #### C BC, PT, CMPX, ALEJANDRO, LIP, MG, KAM, TRIG #### [facility] [address] [place] [address] Livestock Breeder: Sadi Gambino MD #### IOCAL #### [address] [phone] Livestock Breeder: Sha Nicholson MD Creatinine [Mass/Vol] 0.56 mg/dL Low 0.70-1.20 [facility] Comment on above: Performed By: #### C BC, PT, CMPX, ALEJANDRO, LIP, MG, KAM, TRIG #### [facility] [address] [place] [address] Livestock Breeder: Sadi Gambino MD #### IOCAL #### [address] [address] Livestock Breeder: Sha Nicholson MD GFR, Amer >60 Normal >60 [facility] Comment on above: Performed By: #### C BC, PT, CMPX, ALEJANDRO, LIP, MG, KAM, TRIG #### [facility] [address] [place] [address] Livestock Breeder: Sadi Gambino MD #### IOCAL #### [address] [address] Livestock Breeder: Sha Nicholson MD GFR,non Amer >60 Normal >60 [facility] Comment on above: Performed By: #### C BC, PT, CMPX, ALEJANDRO, LIP, MG, KAM, TRIG #### [facility] [address] [place] [address] Livestock Breeder: Sadi Gambino MD #### IOCAL #### [address] [address] Livestock Breeder: Sha Nicholson MD Glucose [Mass/Vol] 119 mg/dL High 70-99 [facility] Comment on above: Performed By: #### C BC, PT, CMPX, ALEJANDRO, LIP, MG, KAM, TRIG #### [facility] [address] [place] [address] Livestock Breeder: Sadi Gambino MD #### IOCAL #### [address] [address] Livestock Breeder: Sha Nicholson MD Potassium [Moles/Vol] 3.9 mmol/L Normal 3.7-5.3 [facility] Comment on above: Performed By: #### C BC, PT, CMPX, ALEJANDRO, LIP, MG, KAM, TRIG #### [facility] [address] [place] [address] Livestock Breeder: Sadi Gambino MD #### IOCAL #### [address] [address] Livestock Breeder: Sha Nicholson MD Protein [Mass/Vol] 7.1 g/dL Normal 6.4-8.3 [facility] Comment on above: Performed By: #### C BC, PT, CMPX, ALEJANDRO, LIP, MG, KAM, TRIG #### [facility] [address] [place] [address] Livestock Breeder: Sadi Gambino MD #### IOCAL #### [address] [address] Livestock Breeder: Sha Nicholson MD Sodium [Moles/Vol] 138 mmol/L Normal 135-144 [facility] Comment on above: Performed By: #### C BC, PT, CMPX, ALEJANDRO, LIP, MG, KAM, TRIG #### [facility] [address] [place] [address] Livestock Breeder: Sadi Gambino MD #### IOCAL #### [address] [address] Livestock Breeder: Sha Nicholson MD Urea nitrogen [Mass/Vol] 8 mg/dL Normal 6-20 [facility] Comment on above: Performed By: #### C BC, PT, CMPX, ALEJANDRO, LIP, MG, KAM, TRIG #### [facility] [address] [place] [address] Livestock Breeder: Sadi Gambino MD #### IOCAL #### [address] [address] Livestock Breeder: Sha Nicholson MD Albumin/Globulin [Mass ratio] NOT REPORTED Normal 1.0-2.5 [facility] Comment on above: Performed By: #### C BC, PT, CMPX, ALEJANDRO, LIP, MG, KAM, TRIG #### [facility] [address] [place] [address] Livestock Breeder: Sadi Gambino MD #### IOCAL #### [address] [address] Livestock Breeder: Sha Nicholson MD Staging: NOT REPORTED Normal [facility] Comment on above: Performed By: #### C BC, PT, CMPX, ALEJANDRO, LIP, MG, KAM, TRIG #### [facility] [place] [address] Livestock Breeder: Sadi Gambino MD #### IOCAL #### [address] [address] Livestock Breeder: Sha Nicholson MD Comp Metabolic w Bili Profil med 06-13-2019 Albumin [Mass/Vol] 4.3 g/dL 3.5 - 5.2 g/dL [place] Albumin/Globulin [Mass ratio] NOT REPORTED [place] ALP [Catalytic activity/Vol] 91 U/L 40 - 129 U/L [place] ALT [Catalytic activity/Vol] 187 U/L High 5 - 41 U/L [place] Anion gap [Moles/Vol] 12 mmol/L 9 - 17 mmol/L [place] AST [Catalytic activity/Vol] 91 U/L High <40 [place] Bilirubin Ql (U) 0.74 mg/dL 0.3 - 1.2 mg/dL [place] Bilirubin, Indirect 0.46 mg/dL 0 - 1 mg/dL [place] Bilirubin.direct [Mass/Vol] 0.28 mg/dL <0.31 [place] Calcium [Mass/Vol] 9.3 mg/dL 8.6 - 10. 4 mg/dL [place] Chloride [Moles/Vol] 100 mmol/L 98 - 10 7 mmol/L [place] CO2 [Moles/Vol] 26 mmol/L 20 - 31 mmol/L [place] Creatinine [Mass/Vol] 0.56 mg/dL Low 0.7 - 1.2 mg/dL [place] GFR >60 >60 mL/min [place] GFR Non- >60 >60 mL/min [place] GFR/1.73 sq M predicted among non-blacks MDRD (S/P/Bld) [Vol rate/Area] NOT REPORTED [place] GFR/1.73 sq M predicted among non-blacks MDRD (S/P/Bld) [Vol rate/Area] [place] Comment on above: Average GFR for 30-3 9 years old: 107 mL/min/1.73sq m Chronic Kidney Disease: <60 mL/min/1.73sq m Kidney failure: <15 mL/min/1.73sq m eGFR calculated using average adult body mass. Additional eGFR calculator available at: http://www.[employer].nPario/multiple_crcl_2011.htm Glucose [Mass/Vol] 119 mg/dL High 70 - 99 mg/dL [place] Interpretation and review of laboratory results Abnormal [place] Potassium [Moles/Vol] 3.9 mmol/L 3.7 - 5.3 mmol/L [place] Protein [Mass/Vol] 7.1 g/dL 6.4 - 8.3 g/dL [place] Sodium [Moles/Vol] 138 mmol/L 135 - 144 mmol/L [place] Urea nitrogen [Mass/Vol] 8 mg/dL 6 - 20 mg/dL [place] Lipaseon 06-13-2019 Lipase [Catalytic activity/Vol] 59 U/L Normal 13-60 [facility] Comment on above: Performed By: #### C BC, PT, CMPX, ALEJANDRO, LIP, MG, KAM, TRIG #### [facility] [address] [place], [place] [phone] Livestock Breeder: Sadi Gambino MD #### IOCAL #### [address] [phone] Livestock Breeder: Sha Nicholson MD Lipase [Catalytic activity/Vol] 59 U/L 13 - 60 U/L [place] Magnesiumon 06-13-2019 Magnesium [Mass/Vol] 1.9 mg/dL Normal 1.6-2.6 [facility] Comment on above: Performed By: #### C BC, PT, CMPX, ALEJANDRO, LIP, MG, KAM, TRIG #### [facility] [address] [place], [place] [phone] Livestock Breeder: Sadi Gambino MD #### IOCAL #### [facility] [address] [place] [address] [phone] Livestock Breeder: Sha Nicholson MD Magnesium [Mass/Vol] 1.9 mg/dL 1.6 - 2 .6 mg/dL [place] Basic Metabolic Panelon 11 Anion gap [Moles/Vol] 11 mmol/L 9 - 17 mmol/L [place] Bun/Cre Ratio 20 [place] Calcium [Mass/Vol] 9.0 mg/dL 8.6 - 10. 4 mg/dL [place] Chloride [Moles/Vol] 101 mmol/L 98 - 10 7 mmol/L [place] CO2 [Moles/Vol] 24 mmol/L 20 - 31 mmol/L [place] Creatinine [Mass/Vol] 0.44 mg/dL Low 0.7 - 1.2 mg/dL [place] GFR >60 >60 mL/min [place] GFR Non- >60 >60 mL/min [place] GFR/1.73 sq M predicted among non-blacks MDRD (S/P/Bld) [Vol rate/Area] NOT REPORTED [place] GFR/1.73 sq M predicted among non-blacks MDRD (S/P/Bld) [Vol rate/Area] [place] Comment on above: Average GFR for 30-3 9 years old: 107 mL/min/1.73sq m Chronic Kidney Disease: <60 mL/min/1.73sq m Kidney failure: <15 mL/min/1.73sq m eGFR calculated using average adult body mass. Additional eGFR calculator available at: http://www.[employer]/multiple_crcl_2012.htm Glucose [Mass/Vol] 164 mg/dL High 70 - 99 mg/dL [place] Interpretation and review of laboratory results Abnormal [place] Potassium [Moles/Vol] 4.1 mmol/L 3.7 - 5.3 mmol/L [place] Sodium [Moles/Vol] 136 mmol/L 135 - 144 mmol/L [place] Urea nitrogen [Mass/Vol] 9 mg/dL 6 - 20 mg/dL [place] Basic Metabolic Profon 06-12 (cont.) Normal [facility] Comment on above: Result Comment: Aver age GFR for 30-39 years old: 107 mL/min/1.73sq m Chronic Kidney Disease: <60 mL/min/1.73sq m Kidney failure: <15 mL/min/1.73sq m eGFR calculated using average adult body mass. Additional eGFR calculator available at: http://www.[employer]/multiple_crcl_2012.htm Performed By: #### C BC, PT, CMPX, ALEJANDRO, LIP, MG, KAM, TRIG #### [facility] [address] [place] [address] Livestock Breeder: Sadi Gambino MD #### IOCAL #### [address] [address] Livestock Breeder: Sha Nicholson MD Anion gap [Moles/Vol] 11 mmol/L Normal 9-17 [facility] Comment on above: Performed By: #### C BC, PT, CMPX, ALEJANDRO, LIP, MG, KAM, TRIG #### [facility] [address] [place] [address] Livestock Breeder: Sadi Gambino MD #### IOCAL #### [address] [address] Livestock Breeder: Sha Nicholson MD BUN/CRE Ratio 20 Normal 9-20 [facility] Comment on above: Performed By: #### C BC, PT, CMPX, ALEJANDRO, LIP, MG, KAM, TRIG #### [facility] [address] [place] [address] Livestock Breeder: Sadi Gambino MD #### IOCAL #### [address] [address] Livestock Breeder: Sha Nicholson MD Calcium [Mass/Vol] 9.0 mg/dL Normal 8.6-10.4 [facility] Comment on above: Performed By: #### C BC, PT, CMPX, ALEJANDRO, LIP, MG, KAM, TRIG #### [facility] [address] [place] [address] Livestock Breeder: Sadi Gambino MD #### IOCAL #### [address] [address] Livestock Breeder: Sha Nicholson MD Chloride [Moles/Vol] 101 mmol/L Normal 98-107 [facility] Comment on above: Performed By: #### C BC, PT, CMPX, ALEJANDRO, LIP, MG, KAM, TRIG #### [facility] [place] [address] Livestock Breeder: Sadi Gambino MD #### IOCAL #### [address] [address] Livestock Breeder: Sha Nicholson MD CO2 [Moles/Vol] 24 mmol/L Normal 20-31 [facility] Comment on above: Performed By: #### C BC, PT, CMPX, ALEJANDRO, LIP, MG, KAM, TRIG #### [facility] [address] [place] [address] Livestock Breeder: Sadi Gambino MD #### IOCAL #### [address] [address] Livestock Breeder: Sha Nicholson MD Creatinine [Mass/Vol] 0.44 mg/dL Low 0.70-1.20 [facility] Comment on above: Performed By: #### C BC, PT, CMPX, ALEJANDRO, LIP, MG, KAM, TRIG #### [facility] [address] [place] [address] Livestock Breeder: Sadi Gambino MD #### IOCAL #### [address] [address] Livestock Breeder: Sha Nicholson MD GFR, Amer >60 Normal >60 [facility] Comment on above: Performed By: #### C BC, PT, CMPX, ALEJANDRO, LIP, MG, KAM, TRIG #### [facility] [address] [place] [address] Livestock Breeder: Sadi Gambino MD #### IOCAL #### [address] [address] Livestock Breeder: Sha Nicholson MD GFR,non Amer >60 Normal >60 [facility] Comment on above: Performed By: #### C BC, PT, CMPX, ALEJANDRO, LIP, MG, KAM, TRIG #### [facility] [address] [place] [address] Livestock Breeder: Sadi Gambino MD #### IOCAL #### [address] [address] Livestock Breeder: Sha Nicholson MD Glucose [Mass/Vol] 164 mg/dL High 70-99 [facility] Comment on above: Performed By: #### C BC, PT, CMPX, ALEJANDRO, LIP, MG, KAM, TRIG #### [facility] [address] [place] [address] Livestock Breeder: Sadi Gambino MD #### IOCAL #### [address] [address] Livestock Breeder: Sha Nicholson MD Potassium [Moles/Vol] 4.1 mmol/L Normal 3.7-5.3 [facility] Comment on above: Performed By: #### C BC, PT, CMPX, ALEJANDRO, LIP, MG, KAM, TRIG #### [facility] [address] [place] [address] Livestock Breeder: Sadi Gambino MD #### IOCAL #### [address] [address] Livestock Breeder: Sha Nicholson MD Sodium [Moles/Vol] 136 mmol/L Normal 135-144 [facility] Comment on above: Performed By: #### C BC, PT, CMPX, ALEJANDRO, LIP, MG, KAM, TRIG #### [facility] [address] [place] [address] Livestock Breeder: Sadi Gambino MD #### IOCAL #### [address] [phone] Livestock Breeder: Sha Nicholson MD Urea nitrogen [Mass/Vol] 9 mg/dL Normal 6-20 [facility] Comment on above: Performed By: #### C BC, PT, CMPX, ALEJANDRO, LIP, MG, KAM, TRIG #### [facility] [place], [place] [phone] Livestock Breeder: Sadi Gambino MD #### IOCAL #### [address] [phone] Livestock Breeder: Sha Nicholson MD Staging: NOT REPORTED Normal [facility] Comment on above: Performed By: #### C BC, PT, CMPX, ALEJANDRO, LIP, MG, KAM, TRIG #### [facility] [address] [place] [address] [phone] Livestock Breeder: Sadi Gambino MD #### IOCAL #### [address] [phone] Livestock Breeder: Sha Nicholson MD CBC Auto Differentialon 11-0 Basophils (Bld) [#/Vol] 10*3/uL [place] Basophils/100 WBC (Bld) 0 % 0 - 2 % [place] Differential Type NOT REPORTED [place] Eosinophils (Bld) [#/Vol] 10*3/uL [place] Eosinophils/100 WBC (Bld) 0 % Low 1 - 4 % [place] Erythrocyte distribution width (RBC) [Ratio] 11.9 % 11.8 - 14.4 % [place] Hematocrit (Bld) [Volume fraction] 36.8 % Low 40.7 - 50.3 % [place] Hemoglobin (Bld) [Mass/Vol] 13.2 g/dL 13 - 17 g/dL [place] Immature granulocytes (Bld) [#/Vol] 0 % 0 [place] Immature granulocytes (Bld) [#/Vol] 0.04 10*3/uL [place] Interpretation and review of laboratory results Abnormal [place] Lymphocytes (Bld) [#/Vol] 1.44 10*3/uL [place] Lymphocytes/100 WBC (Bld) 14 % Low 24 - 43 % [place] MCH (RBC) [Entitic mass] 30.2 pg 25.2 - 33.5 pg [place] MCHC (RBC) [Mass/Vol] 35.9 g/dL High 28.4 - 34.8 g/dL [place] MCV (RBC) [Entitic vol] 84.2 fL 82.6 - 102.9 fL [place] Monocytes (Bld) [#/Vol] 0.52 10*3/uL [place] Monocytes/100 WBC (Bld) 5 % 3 - 12 % [place] Platelet mean volume (Bld) [Entitic vol] 10.9 fL 8.1 - 13.5 fL [place] Platelets (Bld) [#/Vol] NOT REPORTED [place] Platelets (Bld) [#/Vol] 256 10*3/uL [place] RBC (Bld) [#/Vol] 4.37 10*6/uL 4.21 - 5.7 7 m/uL [place] RBC morphology finding Nom (Bld) NOT REPORTED [place] Segmented neutrophils/100 WBC (Bld) 81 % High 36 - 65 % [place] Segs Absolute 8.50 High [place] WBC (Bld) [#/Vol] 10.5 10*3/uL [place] WBC (Bld) [#/Vol] 0.0 10*3/uL 0.0 per 10 0 WBC [place] WBC Morphology NOT REPORTED [place] CBC with Diffon 06-12-2019 Abs. Basophil <0.03 Normal 0.00-0.20 [facility] Comment on above: Performed By: #### C BC, PT, CMPX, ALEJANDRO, LIP, MG, KAM, TRIG #### [facility] [address] [place] [address] Livestock Breeder: Sadi Gambino MD #### IOCAL #### [address] [phone] Livestock Breeder: Sha Nicholson MD Abs.Imm.Granulocyte 0.04 k/uL Normal 0.00-0.30 [facility] Comment on above: Performed By: #### C BC, PT, CMPX, ALEJANDRO, LIP, MG, KAM, TRIG #### [facility] [address] [place] [address] Livestock Breeder: Sadi Gambino MD #### IOCAL #### [address] [address] Livestock Breeder: Sha Nicholson MD Abs.Neutrophil (Seg) 8.50 k/uL High 1.50-8.10 [facility] Comment on above: Performed By: #### C BC, PT, CMPX, ALEJANDRO, LIP, MG, KAM, TRIG #### [facility] [address] [place] [address] Livestock Breeder: Sadi Gambino MD #### IOCAL #### [address] [phone] Livestock Breeder: Sha Nicholson MD Basophils/100 WBC (Bld) 0 % Normal 0-2 M [facility] Comment on above: Performed By: #### C BC, PT, CMPX, ALEJANDRO, LIP, MG, KAM, TRIG #### [facility] [address] [place] [address] Livestock Breeder: Sadi Gambino MD #### IOCAL #### [address] [address] Livestock Breeder: Sha Nicholson MD Eosinophils (Bld) [#/Vol] 10*3/uL Normal 0.00-0.44 [facility] Comment on above: Performed By: #### C BC, PT, CMPX, ALEJANDRO, LIP, MG, KAM, TRIG #### [facility] [address] [place] [address] Livestock Breeder: Sadi Gambino MD #### IOCAL #### [address] [address] Livestock Breeder: Sha Nicholson MD Eosinophils/100 WBC (Bld) 0 % Low 1-4 [facility] Comment on above: Performed By: #### C BC, PT, CMPX, ALEJANDRO, LIP, MG, KAM, TRIG #### [facility] [address] [place] [address] Livestock Breeder: Sadi Gambino MD #### IOCAL #### [address] [address] Livestock Breeder: Sha Nicholson MD Erythrocyte distribution width (RBC) [Ratio] 11.9 % Normal 11.8-14.4 [facility] Comment on above: Performed By: #### C BC, PT, CMPX, ALEJANDRO, LIP, MG, KAM, TRIG #### [facility] [address] [place] [address] Livestock Breeder: Sadi Gambino MD #### IOCAL #### [address] [address] Livestock Breeder: Sha Nicholson MD Hematocrit (Bld) [Volume fraction] 36.8 % Low 40.7-50.3 [facility] Comment on above: Performed By: #### C BC, PT, CMPX, ALEJANDRO, LIP, MG, KAM, TRIG #### [facility] [address] [place] [address] Livestock Breeder: Sadi Gambino MD #### IOCAL #### [address] [address] Livestock Breeder: Sha Nicholson MD Hemoglobin (Bld) [Mass/Vol] 13.2 g/dL Normal 13.0-17.0 [facility] Comment on above: Performed By: #### C BC, PT, CMPX, ALEJANDRO, LIP, MG, KAM, TRIG #### [facility] [address] [place] [address] Livestock Breeder: Sadi Gambino MD #### IOCAL #### [place] [address] Livestock Breeder: Sha Nicholson MD Immature granulocytes (Bld) [#/Vol] 0 % Normal 0 [facility] Comment on above: Performed By: #### C BC, PT, CMPX, ALEJANDRO, LIP, MG, KAM, TRIG #### [facility] [address] [place] [address] Livestock Breeder: Sadi Gambino MD #### IOCAL #### [address] [address] Livestock Breeder: Sha Nicholson MD Lymphocytes (Bld) [#/Vol] 1.44 10*3/uL Normal 1.10-3.70 [facility] Comment on above: Performed By: #### C BC, PT, CMPX, ALEJANDRO, LIP, MG, KAM, TRIG #### [facility] [address] [place] [address] Livestock Breeder: Sadi Gambino MD #### IOCAL #### [address] [address] Livestock Breeder: Sha Nicholson MD Lymphocytes/100 WBC (Bld) 14 % Low 24-43 [facility] Comment on above: Performed By: #### C BC, PT, CMPX, ALEJANDRO, LIP, MG, KAM, TRIG #### [facility] [address] [place] [address] Livestock Breeder: Sadi Gambino MD #### IOCAL #### [address] [address] Livestock Breeder: Sha Nicholson MD MCH (RBC) [Entitic mass] 30.2 pg Normal 25.2-33.5 [facility] Comment on above: Performed By: #### C BC, PT, CMPX, ALEJANDRO, LIP, MG, KAM, TRIG #### [facility] [address] [place] [address] Livestock Breeder: Sadi Gambino MD #### IOCAL #### [address] [address] Livestock Breeder: Sha Nicholson MD MCHC (RBC) [Mass/Vol] 35.9 g/dL High 28.4-34.8 [facility] Comment on above: Performed By: #### C BC, PT, CMPX, ALEJANDRO, LIP, MG, KAM, TRIG #### [facility] [address] [place] [address] Livestock Breeder: Sadi Gambino MD #### IOCAL #### [address] [address] Livestock Breeder: Sha Nicholson MD MCV (RBC) [Entitic vol] 84.2 fL Normal 82.6-102.9 M [facility] Comment on above: Performed By: #### C BC, PT, CMPX, ALEJANDRO, LIP, MG, KAM, TRIG #### [facility] [address] [place] [address] Livestock Breeder: Sadi Gambino MD #### IOCAL #### [address] [address] Livestock Breeder: Sha Nicholson MD Monocytes (Bld) [#/Vol] 0.52 10*3/uL Normal 0.10-1.20 [facility] Comment on above: Performed By: #### C BC, PT, CMPX, ALEJANDRO, LIP, MG, KAM, TRIG #### [facility] [address] [place] [address] Livestock Breeder: Sadi Gambino MD #### IOCAL #### [address] [address] Livestock Breeder: Sha Nicholson MD Monocytes/100 WBC (Bld) 5 % Normal 3-12 M [facility] Comment on above: Performed By: #### C BC, PT, CMPX, ALEJANDRO, LIP, MG, KAM, TRIG #### [facility] [address] [place] [address] Livestock Breeder: Sadi Gambino MD #### IOCAL #### [address] [address] Livestock Breeder: Sha Nicholson MD Neutrophil (Seg) 81 % High 36-65 [facility] Comment on above: Performed By: #### C BC, PT, CMPX, ALEJANDRO, LIP, MG, KAM, TRIG #### [facility] [address] [place] [address] Livestock Breeder: Sadi Gambino MD #### IOCAL #### [address] [address] Livestock Breeder: Sha Nicholson MD NRBC Automated 0.0 per 100 WBC Normal 0.0 [facility] Comment on above: Performed By: #### C BC, PT, CMPX, ALEJANDRO, LIP, MG, KAM, TRIG #### [facility] [address] [place] [address] Livestock Breeder: Sadi Gambino MD #### IOCAL #### [address] [address] Livestock Breeder: Sha Nicholson MD Platelet mean volume (Bld) [Entitic vol] 10.9 fL Normal 8.1-13.5 [facility] Comment on above: Performed By: #### C BC, PT, CMPX, ALEJANDRO, LIP, MG, KAM, TRIG #### [facility] [address] [place] [address] Livestock Breeder: Sadi Gambino MD #### IOCAL #### [address] [address] Livestock Breeder: Sha Nicholson MD Platelets (Bld) [#/Vol] 256 10*3/uL Normal 138-453 [facility] Comment on above: Performed By: #### C BC, PT, CMPX, ALEJANDRO, LIP, MG, KAM, TRIG #### [facility] [place] [address] Livestock Breeder: Sadi Gambino MD #### IOCAL #### [address] [address] Livestock Breeder: Sha Nicholson MD RBC (Bld) [#/Vol] 4.37 10*6/uL Normal 4.21-5.77 [facility] Comment on above: Performed By: #### C BC, PT, CMPX, ALEJANDRO, LIP, MG, KAM, TRIG #### [facility] [address] [place] [address] Livestock Breeder: aSdi Gambino MD #### IOCAL #### [address] [address] Livestock Breeder: Sha Nicholson MD WBC (Bld) [#/Vol] 10.5 10*3/uL Normal 3.5-11.3 [facility] Comment on above: Performed By: #### C BC, PT, CMPX, ALEJANDRO, LIP, MG, KAM, TRIG #### [facility] [address] [place] [address] Livestock Breeder: Sadi Gambino MD #### IOCAL #### [address] [address] Livestock Breeder: Sha Nicholson MD Auto Diff Performed NOT REPORTED Normal [facility] Comment on above: Performed By: #### C BC, PT, CMPX, ALEJANDRO, LIP, MG, KAM, TRIG #### [facility] [address] [place] [address] Livestock Breeder: Sadi Gambino MD #### IOCAL #### [address] [address] Livestock Breeder: Sha Nicholson MD Platelets (Bld) [#/Vol] NOT REPORTED Normal [facility] Comment on above: Performed By: #### C BC, PT, CMPX, ALEJANDRO, LIP, MG, KAM, TRIG #### [facility] [address] [place] [address] Livestock Breeder: Sadi Gambino MD #### IOCAL #### [address] [phone] Livestock Breeder: Sha Nicholson MD RBC morphology finding Nom (Bld) NOT REPORTED Normal [facility] Comment on above: Performed By: #### C BC, PT, CMPX, ALEJANDRO, LIP, MG, KAM, TRIG #### [facility] [address] [place], [place] [phone] Livestock Breeder: Sadi Gambino MD #### IOCAL #### [address] [phone] Livestock Breeder: Sha Nicholson MD WBC Morphology NOT REPORTED Normal [facility] Comment on above: Performed By: #### C BC, PT, CMPX, ALEJANDRO, LIP, MG, KAM, TRIG #### [facility] [address] [place], [place] [phone] Livestock Breeder: Sadi Gambino MD #### IOCAL #### [address] [phone] Livestock Breeder: Sha Nicholson MD Magnesiumon 06-12-2019 Magnesium [Mass/Vol] 1.9 mg/dL Normal 1.6-2.6 [facility] Comment on above: Performed By: #### C BC, PT, CMPX, ALEJANDRO, LIP, MG, KAM, TRIG #### [facility] [address] [place] [address] Livestock Breeder: Sadi Gambino MD #### IOCAL #### [address] [phone] Livestock Breeder: Sha Nihcolson MD Magnesium [Mass/Vol] 1.9 mg/dL 1.6 - 2 .6 mg/dL [place], [place] Surgical Pathologyon 019 Surgical Pathology (NOTE) [id number] [facility] CONSULTING PATHOLOGISTS [facility] [address] [place] [id number] SURGICAL PATHOLOGY CONSULTATION Patient Name: DEVON MAT[facility]W [facility] Rec: [id number] Path Number: [id number] Collected: 06/12/2019 Received: 06/13/2019 Reported: 06/14/2019 09:23 [...] tm Microscopic Description Microscopic examination performed. Normal [facility] Comment on above: Performed By: #### C BC, PT, CMPX, ALEJANDRO, LIP, MG, KAM, TRIG #### [facility] [address] [place] [address] Livestock Breeder: Sadi Gambino MD #### IOCAL #### [facility] [address] [place] [address] [id number] Livestock Breeder: Sha Nicholson MD Amylaseon 06-11-2019 Amylase [Catalytic activity/Vol] 88 U/L Normal 28-100 [facility] Comment on above: Performed By: #### C BC, PT, CMPX, ALEJANDRO, LIP, MG, KAM, TRIG #### [facility] [address] [place] [address] Livestock Breeder: Sadi Gambino MD #### IOCAL #### [facility] [address] [place] [address] Livestock Breeder: Sha Nicholson MD Amylase [Catalytic activity/Vol] 88 U/L 28 - 100 U/L [place] Basic Metabolic Panelon 11-0 Anion gap [Moles/Vol] 12 mmol/L 9 - 17 mmol/L [place] Bun/Cre Ratio 11 [place] Calcium [Mass/Vol] 8.8 mg/dL 8.6 - 10. 4 mg/dL [place] Chloride [Moles/Vol] 104 mmol/L 98 - 10 7 mmol/L [place] CO2 [Moles/Vol] 24 mmol/L 20 - 31 mmol/L [place] Creatinine [Mass/Vol] 0.46 mg/dL Low 0.7 - 1.2 mg/dL [place] GFR >60 >60 mL/min [place] GFR Non- >60 >60 mL/min [place] GFR/1.73 sq M predicted among non-blacks MDRD (S/P/Bld) [Vol rate/Area] NOT REPORTED [place] GFR/1.73 sq M predicted among non-blacks MDRD (S/P/Bld) [Vol rate/Area] [place] Comment on above: Average GFR for 30-3 9 years old: 107 mL/min/1.73sq m Chronic Kidney Disease: <60 mL/min/1.73sq m Kidney failure: <15 mL/min/1.73sq m eGFR calculated using average adult body mass. Additional eGFR calculator available at: http://www.[employer].nPario/multiple_crcl_2012.htm Glucose [Mass/Vol] 92 mg/dL 70 - 99 mg/dL [place] Potassium [Moles/Vol] 3.8 mmol/L 3.7 - 5.3 mmol/L [place] Sodium [Moles/Vol] 140 mmol/L 135 - 144 mmol/L [place] Urea nitrogen [Mass/Vol] 5 mg/dL Low 6 - 20 mg/dL [place] Basic Metabolic Profon 06-11 (cont.) Normal [facility] Comment on above: Result Comment: Aver age GFR for 30-39 years old: 107 mL/min/1.73sq m Chronic Kidney Disease: <60 mL/min/1.73sq m Kidney failure: <15 mL/min/1.73sq m eGFR calculated using average adult body mass. Additional eGFR calculator available at: http://www.[employer].nPario/multiple_crcl_2012.htm Performed By: #### C BC, PT, CMPX, ALEJANDRO, LIP, MG, KAM, TRIG #### [facility] [address] [place] [address] Livestock Breeder: Sadi Gambino MD #### IOCAL #### [address] [phone] Livestock Breeder: Sha Nicholson MD Anion gap [Moles/Vol] 12 mmol/L Normal 9-17 [facility] Comment on above: Performed By: #### C BC, PT, CMPX, ALEJANDRO, LIP, MG, KAM, TRIG #### [facility] [address] [place] [address] Livestock Breeder: Sadi Gambino MD #### IOCAL #### [address] [phone] Livestock Breeder: Sha Nicholson MD BUN/CRE Ratio 11 Normal -20 [facility] Comment on above: Performed By: #### C BC, PT, CMPX, ALEJANDRO, LIP, MG, KAM, TRIG #### [facility] [address] [place] [address] Livestock Breeder: Sadi Gambino MD #### IOCAL #### [address] [phone] Livestock Breeder: Sha Nicholson MD Calcium [Mass/Vol] 8.8 mg/dL Normal 8.6-10.4 [facility] Comment on above: Performed By: #### C BC, PT, CMPX, ALEJANDRO, LIP, MG, KAM, TRIG #### [facility] [place] [address] Livestock Breeder: Sadi Gambino MD #### IOCAL #### [address] [address] Livestock Breeder: Sha Nicholson MD Chloride [Moles/Vol] 104 mmol/L Normal 98-107 [facility] Comment on above: Performed By: #### C BC, PT, CMPX, ALEJANDRO, LIP, MG, KAM, TRIG #### [facility] [address] [place] [address] Livestock Breeder: Sadi Gambino MD #### IOCAL #### [address] [address] Livestock Breeder: Sha Nicholson MD CO2 [Moles/Vol] 24 mmol/L Normal 20-31 [facility] Comment on above: Performed By: #### C BC, PT, CMPX, ALEJANDRO, LIP, MG, KAM, TRIG #### [facility] [address] [place] [address] Livestock Breeder: Sadi Gambino MD #### IOCAL #### [address] [address] Livestock Breeder: Sha Nicholson MD Creatinine [Mass/Vol] 0.46 mg/dL Low 0.70-1.20 [facility] Comment on above: Performed By: #### C BC, PT, CMPX, ALEJANDRO, LIP, MG, KAM, TRIG #### [facility] [address] [place] [address] Livestock Breeder: Sadi Gambino MD #### IOCAL #### [address] [address] Livestock Breeder: Sha Nicholson MD GFR, Amer >60 Normal >60 [facility] Comment on above: Performed By: #### C BC, PT, CMPX, ALEJANDRO, LIP, MG, KAM, TRIG #### [facility] [address] [place] [address] Livestock Breeder: Sadi Gambino MD #### IOCAL #### [address] [address] Livestock Breeder: Sha Nicholson MD GFR,non Amer >60 Normal >60 [facility] Comment on above: Performed By: #### C BC, PT, CMPX, ALEJANDRO, LIP, MG, KAM, TRIG #### [facility] [address] [place] [address] Livestock Breeder: Sadi Gambino MD #### IOCAL #### [address] [address] Livestock Breeder: Sha Nicholson MD Glucose [Mass/Vol] 92 mg/dL Normal 70-99 [facility] Comment on above: Performed By: #### C BC, PT, CMPX, ALEJANDRO, LIP, MG, KAM, TRIG #### [facility] [address] [place] [address] Livestock Breeder: Sadi Gambino MD #### IOCAL #### [address] [address] Livestock Breeder: Sha Nicholson MD Potassium [Moles/Vol] 3.8 mmol/L Normal 3.7-5.3 [facility] Comment on above: Performed By: #### C BC, PT, CMPX, ALEJANDRO, LIP, MG, KAM, TRIG #### [facility] [address] [place] [address] Livestock Breeder: Sadi Gambino MD #### IOCAL #### [address] [address] Livestock Breeder: Sha Nicholson MD Sodium [Moles/Vol] 140 mmol/L Normal 135-144 [facility] Comment on above: Performed By: #### C BC, PT, CMPX, ALEJANDRO, LIP, MG, KAM, TRIG #### [facility] [address] [place] [address] Livestock Breeder: Sadi Gambino MD #### IOCAL #### [address] [address] Livestock Breeder: Sha Nicholson MD Urea nitrogen [Mass/Vol] 5 mg/dL Low 6-20 [facility] Comment on above: Performed By: #### C BC, PT, CMPX, ALEJANDRO, LIP, MG, KAM, TRIG #### [facility] [address] [place] [address] Livestock Breeder: Sadi Gambino MD #### IOCAL #### [address] [address] Livestock Breeder: Sha Nicholson MD Staging: NOT REPORTED Normal [facility] Comment on above: Performed By: #### C BC, PT, CMPX, ALEJANDRO, LIP, MG, KAM, TRIG #### [facility] [address] [place] [address] Livestock Breeder: Sadi Gambino MD #### IOCAL #### [address] [address] Livestock Breeder: Sha Nicholson MD CBC Auto Differentialon 11-0 Basophils (Bld) [#/Vol] 0.06 10*3/uL [place] Basophils/100 WBC (Bld) 1 % 0 - 2 % M [place] Differential Type NOT REPORTED [place] Eosinophils (Bld) [#/Vol] 0.42 10*3/uL [place] Eosinophils/100 WBC (Bld) 4 % 1 - 4 % [place] Erythrocyte distribution width (RBC) [Ratio] 12.1 % 11.8 - 14.4 % [place] Hematocrit (Bld) [Volume fraction] 36.3 % Low 40.7 - 50.3 % [place] Hemoglobin (Bld) [Mass/Vol] 12.8 g/dL Low 13 - 17 g/dL [place] Immature granulocytes (Bld) [#/Vol] 0 % 0 [place] Immature granulocytes (Bld) [#/Vol] 0.03 10*3/uL [place] Interpretation and review of laboratory results Abnormal [place] Lymphocytes (Bld) [#/Vol] 2.30 10*3/uL [place] Lymphocytes/100 WBC (Bld) 24 % 24 - 43 % [place] MCH (RBC) [Entitic mass] 30.5 pg 25.2 - 33.5 pg [place] MCHC (RBC) [Mass/Vol] 35.3 g/dL High 28.4 - 34.8 g/dL [place] MCV (RBC) [Entitic vol] 86.4 fL 82.6 - 102.9 fL [place] Monocytes (Bld) [#/Vol] 0.81 10*3/uL [place] Monocytes/100 WBC (Bld) 8 % 3 - 12 % M [place] Platelet mean volume (Bld) [Entitic vol] 10.6 fL 8.1 - 13.5 fL [place] Platelets (Bld) [#/Vol] NOT REPORTED [place] Platelets (Bld) [#/Vol] 215 10*3/uL [place] RBC (Bld) [#/Vol] 4.20 10*6/uL Low 4.21 - 5.7 7 m/uL [place] RBC morphology finding Nom (Bld) NOT REPORTED [place] Segmented neutrophils/100 WBC (Bld) 62 % 36 - 65 % [place] Segs Absolute 5.98 [place] WBC (Bld) [#/Vol] 0.0 10*3/uL 0.0 per 10 0 WBC [place] WBC (Bld) [#/Vol] 9.6 10*3/uL [place] WBC Morphology NOT REPORTED [place] CBC with Diffon 06-11-2019 Abs. Basophil 0.06 k/uL Normal 0.00-0.20 [facility] Comment on above: Performed By: #### C BC, PT, CMPX, ALEJANDRO, LIP, MG, KAM, TRIG #### [facility] [address] [place] [address] Livestock Breeder: Sadi Gambino MD #### IOCAL #### [place] [address] Livestock Breeder: Sha Nicholson MD Abs.Imm.Granulocyte 0.03 k/uL Normal 0.00-0.30 [facility] Comment on above: Performed By: #### C BC, PT, CMPX, ALEJANDRO, LIP, MG, KAM, TRIG #### [facility] [address] [place] [address] Livestock Breeder: Sadi Gambino MD #### IOCAL #### [place] [address] Livestock Breeder: Sha Nicholson MD Abs.Neutrophil (Seg) 5.98 k/uL Normal 1.50-8.10 [facility] Comment on above: Performed By: #### C BC, PT, CMPX, ALEJANDRO, LIP, MG, KAM, TRIG #### [facility] [address] [place] [address] Livestock Breeder: Sadi Gambino MD #### IOCAL #### [address] [address] Livestock Breeder: Sha Nicholson MD Basophils/100 WBC (Bld) 1 % Normal 0-2 M [facility] Comment on above: Performed By: #### C BC, PT, CMPX, ALEJANDRO, LIP, MG, KAM, TRIG #### [facility] [place] [address] Livestock Breeder: Sadi Gambino MD #### IOCAL #### [address] [address] Livestock Breeder: Sha Nicholson MD Eosinophils (Bld) [#/Vol] 0.42 10*3/uL Normal 0.00-0.44 [facility] Comment on above: Performed By: #### C BC, PT, CMPX, ALEJANDRO, LIP, MG, KAM, TRIG #### [facility] [address] [place] [address] Livestock Breeder: Sadi Gambino MD #### IOCAL #### [address] [address] Livestock Breeder: Sha Nicholson MD Eosinophils/100 WBC (Bld) 4 % Normal 1-4 [facility] Comment on above: Performed By: #### C BC, PT, CMPX, ALEJANDRO, LIP, MG, KAM, TRIG #### [facility] [address] [place] [address] Livestock Breeder: Sadi Gambino MD #### IOCAL #### [address] [address] Livestock Breeder: Sha Nicholson MD Erythrocyte distribution width (RBC) [Ratio] 12.1 % Normal 11.8-14.4 [facility] Comment on above: Performed By: #### C BC, PT, CMPX, ALEJANDRO, LIP, MG, KAM, TRIG #### [facility] [address] [place] [address] Livestock Breeder: Sadi Gambino MD #### IOCAL #### [address] [address] Livestock Breeder: Sha Nicholson MD Hematocrit (Bld) [Volume fraction] 36.3 % Low 40.7-50.3 [facility] Comment on above: Performed By: #### C BC, PT, CMPX, ALEJANDRO, LIP, MG, KAM, TRIG #### [facility] [address] [place] [address] Livestock Breeder: Sadi Gambino MD #### IOCAL #### [address] [address] Livestock Breeder: Sha Nicohlson MD Hemoglobin (Bld) [Mass/Vol] 12.8 g/dL Low 13.0-17.0 [facility] Comment on above: Performed By: #### C BC, PT, CMPX, ALEJANDRO, LIP, MG, KAM, TRIG #### [facility] [address] [place] [address] Livestock Breeder: Sadi Gambino MD #### IOCAL #### [address] [address] Livestock Breeder: Sha Nicholson MD Immature granulocytes (Bld) [#/Vol] 0 % Normal 0 [facility] Comment on above: Performed By: #### C BC, PT, CMPX, ALEJANDRO, LIP, MG, KAM, TRIG #### [facility] [address] [place] [address] Livestock Breeder: Said Gambino MD #### IOCAL #### [address] [address] Livestock Breeder: Sha Nicholson MD Lymphocytes (Bld) [#/Vol] 2.30 10*3/uL Normal 1.10-3.70 [facility] Comment on above: Performed By: #### C BC, PT, CMPX, ALEJANDRO, LIP, MG, KAM, TRIG #### [facility] [address] [place] [address] Livestock Breeder: Sadi Gambino MD #### IOCAL #### [address] [address] Livestock Breeder: Sha Nicholson MD Lymphocytes/100 WBC (Bld) 24 % Normal 24-43 [facility] Comment on above: Performed By: #### C BC, PT, CMPX, ALEJANDRO, LIP, MG, KAM, TRIG #### [facility] [address] [place] [address] Livestock Breeder: Sadi Gambion MD #### IOCAL #### [address] [address] Livestock Breeder: Sha Nicholson MD MCH (RBC) [Entitic mass] 30.5 pg Normal 25.2-33.5 [facility] Comment on above: Performed By: #### C BC, PT, CMPX, ALEJANDRO, LIP, MG, KAM, TRIG #### [facility] [address] [place] [address] Livestock Breeder: Sadi Gambino MD #### IOCAL #### [address] [address] Livestock Breeder: Sha Nicholson MD MCHC (RBC) [Mass/Vol] 35.3 g/dL High 28.4-34.8 [facility] Comment on above: Performed By: #### C BC, PT, CMPX, ALEJANDRO, LIP, MG, KAM, TRIG #### [facility] [address] [place] [address] Livestock Breeder: Sadi Gambino MD #### IOCAL #### [address] [phone] Livestock Breeder: Sha Nicholson MD MCV (RBC) [Entitic vol] 86.4 fL Normal 82.6-102.9 M [facility] Comment on above: Performed By: #### C BC, PT, CMPX, ALEJANDRO, LIP, MG, KAM, TRIG #### [facility] [address] [place] [address] Livestock Breeder: Sadi Gambino MD #### IOCAL #### [place] [address] Livestock Breeder: Sha Nicholson MD Monocytes (Bld) [#/Vol] 0.81 10*3/uL Normal 0.10-1.20 [facility] Comment on above: Performed By: #### C BC, PT, CMPX, ALEJANDRO, LIP, MG, KAM, TRIG #### [facility] [address] [place] [address] Livestock Breeder: Sadi Gambino MD #### IOCAL #### [address] [address] Livestock Breeder: Sha Nicholson MD Monocytes/100 WBC (Bld) 8 % Normal 3-12 [facility] Comment on above: Performed By: #### C BC, PT, CMPX, ALEJANDRO, LIP, MG, KAM, TRIG #### [facility] [address] [place] [address] Livestock Breeder: Sadi Gambino MD #### IOCAL #### [address] [address] Livestock Breeder: Sha Nicholson MD Neutrophil (Seg) 62 % Normal 36-65 [facility] Comment on above: Performed By: #### C BC, PT, CMPX, ALEJANDRO, LIP, MG, KAM, TRIG #### [facility] [address] [place] [address] Livestock Breeder: Sadi Gambino MD #### IOCAL #### [address] [address] Livestock Breeder: Sha Nicholson MD NRBC Automated 0.0 per 100 WBC Normal 0.0 [facility] Comment on above: Performed By: #### C BC, PT, CMPX, ALEJANDRO, LIP, MG, KAM, TRIG #### [facility] [address] [place] [address] Livestock Breeder: Sadi Gambino MD #### IOCAL #### [address] [address] Livestock Breeder: Sha Nicholson MD Platelet mean volume (Bld) [Entitic vol] 10.6 fL Normal 8.1-13.5 [facility] Comment on above: Performed By: #### C BC, PT, CMPX, ALEJANDRO, LIP, MG, KAM, TRIG #### [facility] [address] [place] [address] Livestock Breeder: Sadi Gambino MD #### IOCAL #### [address] [address] Livestock Breeder: Sha Nicholson MD Platelets (Bld) [#/Vol] 215 10*3/uL Normal 138-453 [facility] Comment on above: Performed By: #### C BC, PT, CMPX, ALEJANDRO, LIP, MG, KAM, TRIG #### [facility] [address] [place] [address] Livestock Breeder: Sadi Gambino MD #### IOCAL #### [address] [address] Livestock Breeder: Sha Nicholson MD RBC (Bld) [#/Vol] 4.20 10*6/uL Low 4.21-5.77 [facility] Comment on above: Performed By: #### C BC, PT, CMPX, ALEJANDRO, LIP, MG, KAM, TRIG #### [facility] [address] [place] [address] Livestock Breeder: Sadi Gambino MD #### IOCAL #### [address] [address] Livestock Breeder: Sha Nicholson MD WBC (Bld) [#/Vol] 9.6 10*3/uL Normal 3.5-11.3 [facility] Comment on above: Performed By: #### C BC, PT, CMPX, ALEJANDRO, LIP, MG, KAM, TRIG #### [facility] [address] [place] [address] Livestock Breeder: Sadi Gambino MD #### IOCAL #### [address] [address] Livestock Breeder: Sha Nicholson MD Auto Diff Performed NOT REPORTED Normal [facility] Comment on above: Performed By: #### C BC, PT, CMPX, ALEJANDRO, LIP, MG, KAM, TRIG #### [facility] [address] [place] [address] Livestock Breeder: Sadi Gambino MD #### IOCAL #### [address] [address] Livestock Breeder: Sha Nicholson MD Platelets (Bld) [#/Vol] NOT REPORTED Normal [facility] [facility] Comment on above: Performed By: #### C BC, PT, CMPX, ALEJANDRO, LIP, MG, KAM, TRIG #### [facility] [address] [place] [address] Livestock Breeder: Sadi Gambino MD #### IOCAL #### [address] [address] Livestock Breeder: Sha Nicholson MD RBC morphology finding Nom (Bld) NOT REPORTED Normal [facility] Comment on above: Performed By: #### C BC, PT, CMPX, ALEJANDRO, LIP, MG, KAM, TRIG #### [facility] [address] [place] [address] Livestock Breeder: Sadi Gambino MD #### IOCAL #### [address] [address] Livestock Breeder: Sha Nicholson MD WBC Morphology NOT REPORTED Normal [facility] Comment on above: Performed By: #### C BC, PT, CMPX, ALEJANDRO, LIP, MG, KAM, TRIG #### [facility] [address] [place] [address] Livestock Breeder: Sadi Gambino MD #### IOCAL #### [address] [address] Livestock Breeder: Sha Nicholson MD [place] ERCP BILIARY AND PANCREAT IC S AND [...] Stan Samson MD 06/11/19 Final result Normal [facility] ERCP BILIARY AND PANCREAT IC S&Ion 06-11-2019 Jasen, Mhpn Incoming Radiant Results From [employer] - 06/11/2019 5:18 PM EST EXAMINATION: 10 [...] additional details. IMPRESSION: Intraoperative fluoroscopy for ERCP [facility] [place], [place] EXAMINATION: 10 SPOT IMAGES FROM AN ERCP [...] correlate with procedure report for additional details. [place] Intraoperative fluoroscopy for ERCP [place] FLUORO FOR SURGICAL PROCEDUR ESon 06-11-2019 FLUORO FOR SURGICAL PROCEDURES Radiology exam is complete. No Radiologist dictation. Please follow up with ordering provider. Final result Normal [facility] Radiology exam is complete. No Radiologist dictation. Please follow up with ordering provider. [place] Lipaseon 06-11-2019 Lipase [Catalytic activity/Vol] 108 U/L High 13-60 [facility] Comment on above: Performed By: #### C BC, PT, CMPX, ALEJANDRO, LIP, MG, KAM, TRIG #### [facility] [address] [place], [place] [id number] Livestock Breeder: Sadi Gambino MD #### IOCAL #### [facility] [address] [place], [place] [id number] Livestock Breeder: Sha Nicholson MD Lipase [Catalytic activity/Vol] 108 U/L High 13 - 60 U/L [place] Lipid Panelon 06-11-2019 Cholesterol [Mass/Vol] 125 mg/dL <200 [place] Comment on above: Cholesterol Guidelines: <200 Desirable 200-240 Borderline >240 Undesirable Cholesterol in HDL [Mass/Vol] 20 mg/dL Low >40 [place] Comment on above: HDL Guidelines: <40 Undesirable 40-59 Borderline >59 Desirable Cholesterol in LDL [Mass/Vol] 82 mg/dL 0 - 130 mg/dL [place] Comment on above: LDL Guidelines: <100 Desirable 100-129 Near to/above Desirable 130-159 Borderline >159 Undesirable Direct (measured) LDL and calculated LDL are not interchangeable tests. Cholesterol in VLDL [Mass/Vol] NOT REPORTED 1 - 30 mg/dL [place] Cholesterol.total/Bailey sterol in HDL [Mass ratio] 6.3 {ratio} High <5 [place] Triglyceride [Mass/Vol] 117 mg/dL <150 M [place] Comment on above: Triglyceride Guidelines: <150 Desirable 150-199 Borderline 200-499 High >499 Very high Based on AHA Guidelines for fasting triglyceride, May 2012. Lipid Profileon 06-11-2019 Cholesterol [Mass/Vol] 125 mg/dL Normal <200 [facility] Comment on above: Result Comment: Cholesterol Guidelines: <200 Desirable 200-240 Borderline >240 Undesirable Performed By: #### C BC, PT, CMPX, ALEJANDRO, LIP, MG, KAM, TRIG #### [facility] [place] [address] Livestock Breeder: Sadi Gambino MD #### IOCAL #### [address] [phone] Livestock Breeder: Sha Nicholson MD Cholesterol in HDL [Mass/Vol] 20 mg/dL Low >40 [facility] Comment on above: Result Comment: HDL Guidelines: <40 Undesirable 40-59 Borderline >59 Desirable Performed By: #### C BC, PT, CMPX, ALEJANDRO, LIP, MG, KAM, TRIG #### [facility] [address] [place] [address] Livestock Breeder: Sadi Gambino MD #### IOCAL #### [address] [address] Livestock Breeder: Sha Nicholson MD Cholesterol in LDL [Mass/Vol] 82 mg/dL Normal 0-130 [facility] Comment on above: Result Comment: LDL Guidelines: <100 Desirable 100-129 Near to/above Desirable 130-159 Borderline >159 Undesirable Direct (measured) LDL and calculated LDL are not interchangeable tests. Performed By: #### C BC, PT, CMPX, ALEJANDRO, LIP, MG, KAM, TRIG #### [facility] [address] [place] [address] Livestock Breeder: Sadi Gambino MD #### IOCAL #### [facility] [address] [place] [address] Livestock Breeder: Sha Nicholson MD Cholesterol.total/Bailey sterol in HDL [Mass ratio] 6.3 {ratio} High <5 [facility] Comment on above: Performed By: #### C BC, PT, CMPX, ALEJANDRO, LIP, MG, KAM, TRIG #### [facility] [address] [place] [address] Livestock Breeder: Sadi Gambino MD #### IOCAL #### [address] [address] Livestock Breeder: Sha Nicholson MD Triglyceride [Mass/Vol] 117 mg/dL Normal <150 M [facility] Comment on above: Result Comment: Triglyceride Guidelines: <150 Desirable 150-199 Borderline 200-499 High >499 Very high Based on AHA Guidelines for fasting triglyceride, May 2012. Performed By: #### C BC, PT, CMPX, ALEJANDRO, LIP, MG, KAM, TRIG #### [facility] [address] [place] [address] Livestock Breeder: Sadi Gambino MD #### IOCAL #### [address] [address] Livestock Breeder: Sha Nicholson MD Cholesterol in VLDL [Mass/Vol] NOT REPORTED Normal -30 [facility] Comment on above: Performed By: #### C BC, PT, CMPX, ALEJANDRO, LIP, MG, KAM, TRIG #### [facility] [address] [place] [address] Livestock Breeder: Sadi Gambino MD #### IOCAL #### [address] [address] Livestock Breeder: Sha Nicholson MD Magnesiumon 06-11-2019 Magnesium [Mass/Vol] 1.9 mg/dL Normal 1.6-2.6 [facility] Comment on above: Performed By: #### C BC, PT, CMPX, ALEJANDRO, LIP, MG, KAM, TRIG #### [facility] [address] [place] [address] Livestock Breeder: Sadi Gambino MD #### IOCAL #### [facility] [place] [address] Livestock Breeder: Sha Nicholson MD Magnesium [Mass/Vol] 1.9 mg/dL 1.6 - 2 .6 mg/dL [place] Otheron 06-11-2019 Interpretation and review of laboratory results Abnormal [place] Amylaseon 06-10-2019 Amylase [Catalytic activity/Vol] 188 U/L High 28-100 [facility] Comment on above: Performed By: #### C BC, PT, CMPX, ALEJANDRO, LIP, MG, KAM, TRIG #### [facility] [address] [place] [address] Livestock Breeder: Sadi Gambino MD #### IOCAL #### [address] [address] Livestock Breeder: Sha Nicholson MD Amylase [Catalytic activity/Vol] 188 U/L High 28 - 100 U/L [place] CBC Auto Differentialon Basophils (Bld) [#/Vol] 0.06 10*3/uL [place] Basophils/100 WBC (Bld) 1 % 0 - 2 % [place] Differential Type NOT REPORTED [place] Eosinophils (Bld) [#/Vol] 0.29 10*3/uL [place] Eosinophils/100 WBC (Bld) 3 % 1 - 4 % [place] Erythrocyte distribution width (RBC) [Ratio] 12.1 % 11.8 - 14.4 % [place] Hematocrit (Bld) [Volume fraction] 37.1 % Low 40.7 - 50.3 % [place] Hemoglobin (Bld) [Mass/Vol] 13.0 g/dL 13 - 17 g/dL [place] Immature granulocytes (Bld) [#/Vol] 0.03 10*3/uL [place] Immature granulocytes (Bld) [#/Vol] 0 % 0 [place] Interpretation and review of laboratory results Abnormal [place] Lymphocytes (Bld) [#/Vol] 2.29 10*3/uL [place] Lymphocytes/100 WBC (Bld) 25 % 24 - 43 % [place] MCH (RBC) [Entitic mass] 30.8 pg 25.2 - 33.5 pg [place] MCHC (RBC) [Mass/Vol] 35.0 g/dL High 28.4 - 34.8 g/dL [place] MCV (RBC) [Entitic vol] 87.9 fL 82.6 - 102.9 fL [place] Monocytes (Bld) [#/Vol] 0.76 10*3/uL [place] Monocytes/100 WBC (Bld) 8 % 3 - 12 % [place] Platelet mean volume (Bld) [Entitic vol] 10.8 fL 8.1 - 13.5 fL [place] Platelets (Bld) [#/Vol] NOT REPORTED [place] Platelets (Bld) [#/Vol] 208 10*3/uL [place] RBC (Bld) [#/Vol] 4.22 10*6/uL 4.21 - 5.7 7 m/uL [place] RBC morphology finding Nom (Bld) NOT REPORTED [place] Segmented neutrophils/100 WBC (Bld) 62 % 36 - 65 % [place] Segs Absolute 5.62 [place] WBC (Bld) [#/Vol] 0.0 10*3/uL 0.0 per 10 0 WBC [place] WBC (Bld) [#/Vol] 9.1 10*3/uL [place] WBC Morphology NOT REPORTED [place] CBC with Diffon 06-10-2019 Abs. Basophil 0.06 k/uL Normal 0.00-0.20 [facility] Comment on above: Performed By: #### C BC, PT, CMPX, ALEJANDRO, LIP, MG, KAM, TRIG #### [facility] [address] [place] [address] Livestock Breeder: Sadi Gambino MD #### IOCAL #### [address] [address] Livestock Breeder: Sha Nicholson MD Abs.Imm.Granulocyte 0.03 k/uL Normal 0.00-0.30 [facility] Comment on above: Performed By: #### C BC, PT, CMPX, ALEJANDRO, LIP, MG, KAM, TRIG #### [facility] [address] [place] [address] Livestock Breeder: Sadi Gambino MD #### IOCAL #### [address] [address] Livestock Breeder: Sha Nicholson MD Abs.Neutrophil (Seg) 5.62 k/uL Normal 1.50-8.10 [facility] Comment on above: Performed By: #### C BC, PT, CMPX, ALEJANDRO, LIP, MG, KAM, TRIG #### [facility] [address] [place] [address] Livestock Breeder: Sadi Gambino MD #### IOCAL #### [address] [address] Livestock Breeder: Sha Nicholson MD Basophils/100 WBC (Bld) 1 % Normal 0-2 M [facility] Comment on above: Performed By: #### C BC, PT, CMPX, ALEJANDRO, LIP, MG, KAM, TRIG #### [facility] [place] [address] Livestock Breeder: Sadi Gambino MD #### IOCAL #### [address] [address] Livestock Breeder: Sha Nicholson MD Eosinophils (Bld) [#/Vol] 0.29 10*3/uL Normal 0.00-0.44 [facility] Comment on above: Performed By: #### C BC, PT, CMPX, ALEJANDRO, LIP, MG, KAM, TRIG #### [facility] [address] [place] [address] Livestock Breeder: Sadi Gambino MD #### IOCAL #### [address] [address] Livestock Breeder: Sha Nicholson MD Eosinophils/100 WBC (Bld) 3 % Normal 1-4 [facility] Comment on above: Performed By: #### C BC, PT, CMPX, ALEJANDRO, LIP, MG, KAM, TRIG #### [facility] [address] [place] [address] Livestock Breeder: Sadi Gambino MD #### IOCAL #### [address] [address] Livestock Breeder: Sha Nicholson MD Immature granulocytes (Bld) [#/Vol] 0 % Normal 0 [facility] Comment on above: Performed By: #### C BC, PT, CMPX, ALEJANDRO, LIP, MG, KAM, TRIG #### [facility] [address] [place] [address] Livestock Breeder: Sadi Gambino MD #### IOCAL #### [address] [address] Livestock Breeder: Sha Nicholson MD Lymphocytes (Bld) [#/Vol] 2.29 10*3/uL Normal 1.10-3.70 [facility] Comment on above: Performed By: #### C BC, PT, CMPX, ALEJANDRO, LIP, MG, KAM, TRIG #### [facility] [address] [place] [address] Livestock Breeder: Sadi Gambino MD #### IOCAL #### [address] [address] Livestock Breeder: Sha Nicholson MD Lymphocytes/100 WBC (Bld) 25 % Normal 24-43 [facility] Comment on above: Performed By: #### C BC, PT, CMPX, ALEJANDRO, LIP, MG, KAM, TRIG #### [facility] [address] [place] [address] Livestock Breeder: Sadi Gambino MD #### IOCAL #### [address] [address] Livestock Breeder: Sha Nicholson MD Monocytes (Bld) [#/Vol] 0.76 10*3/uL Normal 0.10-1.20 [facility] Comment on above: Performed By: #### C BC, PT, CMPX, ALEJANDRO, LIP, MG, KAM, TRIG #### [facility] [address] [place] [address] Livestock Breeder: Sadi Gambino MD #### IOCAL #### [address] [address] Livestock Breeder: Sha Nicholson MD Monocytes/100 WBC (Bld) 8 % Normal 3-12 M [facility] Comment on above: Performed By: #### C BC, PT, CMPX, ALEJANDRO, LIP, MG, KAM, TRIG #### [facility] [address] [place] [address] Livestock Breeder: Sadi Gambino MD #### IOCAL #### [address] [address] Livestock Breeder: Sha Nicholson MD Neutrophil (Seg) 62 % Normal 36-65 [facility] Comment on above: Performed By: #### C BC, PT, CMPX, ALEJANDRO, LIP, MG, KAM, TRIG #### [facility] [address] [place] [address] Livestock Breeder: Sadi Gambino MD #### IOCAL #### [address] [address] Livestock Breeder: Sha Nicholson MD Erythrocyte distribution width (RBC) [Ratio] 12.1 % Normal 11.8-14.4 [facility] Comment on above: Performed By: #### C BC, PT, CMPX, ALEJANDRO, LIP, MG, KAM, TRIG #### [facility] [address] [place] [address] Livestock Breeder: Sadi Gambino MD #### IOCAL #### [address] [address] Livestock Breeder: Sha Nicholson MD Hematocrit (Bld) [Volume fraction] 37.1 % Low 40.7-50.3 [facility] Comment on above: Performed By: #### C BC, PT, CMPX, ALEJANDRO, LIP, MG, KAM, TRIG #### [facility] [address] [place] [address] Livestock Breeder: Sadi Gambino MD #### IOCAL #### [address] [address] Livestock Breeder: Sha Nicholson MD Hemoglobin (Bld) [Mass/Vol] 13.0 g/dL Normal 13.0-17.0 [facility] Comment on above: Performed By: #### C BC, PT, CMPX, ALEJANDRO, LIP, MG, KAM, TRIG #### [facility] [address] [place] [address] Livestock Breeder: Sadi Gambino MD #### IOCAL #### [address] [address] Livestock Breeder: Sha Nicholson MD MCH (RBC) [Entitic mass] 30.8 pg Normal 25.2-33.5 [facility] Comment on above: Performed By: #### C BC, PT, CMPX, ALEJANDRO, LIP, MG, KAM, TRIG #### [facility] [address] [place] [address] Livestock Breeder: Sadi Gambino MD #### IOCAL #### [address] [address] Livestock Breeder: Sha Nicholson MD MCHC (RBC) [Mass/Vol] 35.0 g/dL High 28.4-34.8 [facility] Comment on above: Performed By: #### C BC, PT, CMPX, ALEJANDRO, LIP, MG, KAM, TRIG #### [facility] [address] [place] [address] Livestock Breeder: Sadi Gambino MD #### IOCAL #### [address] [address] Livestock Breeder: Sha Nicholson MD MCV (RBC) [Entitic vol] 87.9 fL Normal 82.6-102.9 M [facility] Comment on above: Performed By: #### C BC, PT, CMPX, ALEJANDRO, LIP, MG, KAM, TRIG #### [facility] [address] [place] [address] Livestock Breeder: Sadi Gambino MD #### IOCAL #### [address] [address] Livestock Breeder: Sha Nicholson MD NRBC Automated 0.0 per 100 WBC Normal 0.0 [facility] Comment on above: Performed By: #### C BC, PT, CMPX, ALEJANDRO, LIP, MG, KAM, TRIG #### [facility] [address] [place] [address] Livestock Breeder: Sadi Gambino MD #### IOCAL #### [address] [address] Livestock Breeder: Sha Nicholson MD Platelet mean volume (Bld) [Entitic vol] 10.8 fL Normal 8.1-13.5 [facility] Comment on above: Performed By: #### C BC, PT, CMPX, ALEJANDRO, LIP, MG, KAM, TRIG #### [facility] [address] [place] [address] Livestock Breeder: Sadi Gambino MD #### IOCAL #### [address] [address] Livestock Breeder: Sha Nicholson MD Platelets (Bld) [#/Vol] 208 10*3/uL Normal 138-453 [facility] Comment on above: Performed By: #### C BC, PT, CMPX, ALEJADNRO, LIP, MG, KAM, TRIG #### [facility] [address] [place] [address] Livestock Breeder: Sadi Gambino MD #### IOCAL #### [address] [address] Livestock Breeder: Sha Nicholson MD RBC (Bld) [#/Vol] 4.22 10*6/uL Normal 4.21-5.77 [facility] Comment on above: Performed By: #### C BC, PT, CMPX, ALEJANDRO, LIP, MG, KAM, TRIG #### [facility] [address] [place] [address] Livestock Breeder: Sadi Gambino MD #### IOCAL #### [address] [phone] Livestock Breeder: Sha Nicholson MD WBC (Bld) [#/Vol] 9.1 10*3/uL Normal 3.5-11.3 [facility] Comment on above: Performed By: #### C BC, PT, CMPX, ALEJANDRO, LIP, MG, KAM, TRIG #### [facility] [address] [place] [address] Livestock Breeder: Sadi Gambino MD #### IOCAL #### [address] [address] Livestock Breeder: Sha Nicholson MD Auto Diff Performed NOT REPORTED Normal [facility] Comment on above: Performed By: #### C BC, PT, CMPX, ALEJANDRO, LIP, MG, KAM, TRIG #### [facility] [address] [place] [address] Livestock Breeder: Sdai Gambino MD #### IOCAL #### [address] [address] Livestock Breeder: Sha Nicholson MD Platelets (Bld) [#/Vol] NOT REPORTED Normal [facility] Comment on above: Performed By: #### C BC, PT, CMPX, ALEJANDRO, LIP, MG, KAM, TRIG #### [facility] [address] [place] [address] Livestock Breeder: Sadi Gambino MD #### IOCAL #### [address] [address] Livestock Breeder: Sha Nicholson MD RBC morphology finding Nom (Bld) NOT REPORTED Normal [facility] Comment on above: Performed By: #### C BC, PT, CMPX, ALEJANDRO, LIP, MG, KAM, TRIG #### [facility] [address] [place] [address] Livestock Breeder: Sadi Gambino MD #### IOCAL #### [facility] [address] [place] [address] Livestock Breeder: Sha Nicholson MD WBC Morphology NOT REPORTED Normal [facility] Comment on above: Performed By: #### C BC, PT, CMPX, ALEJANDRO, LIP, MG, KAM, TRIG #### [facility] [address] [place], [place] [id number] Livestock Breeder: Sadi Gambino MD #### IOCAL #### [facility] [address] [place] [address] Livestock Breeder: Sha Nicholson MD Comp Metab w/Bili Pron 06-10 (cont.) Normal [facility] Comment on above: Result Comment: Aver age GFR for 30-39 years old: 107 mL/min/1.73sq m Chronic Kidney Disease: <60 mL/min/1.73sq m Kidney failure: <15 mL/min/1.73sq m eGFR calculated using average adult body mass. Additional eGFR calculator available at: http://www.[employer].com/multiple_crcl_2012.htm Performed By: #### C BC, PT, CMPX, ALEJANDRO, LIP, MG, KAM, TRIG #### [facility] [address] [place] [address] Livestock Breeder: Sadi Gambino MD #### IOCAL #### [facility] [address] [place] [address] Livestock Breeder: Sha Nicholson MD Albumin [Mass/Vol] 3.5 g/dL Normal 3.5-5.2 [facility] Comment on above: Performed By: #### C BC, PT, CMPX, ALEJANDRO, LIP, MG, KAM, TRIG #### [facility] [address] [place] [address] Livestock Breeder: Sadi Gambino MD #### IOCAL #### [address] [address] Livestock Breeder: Sha Nicholson MD Alkaline Phos 89 U/L Normal 40-129 [facility] Comment on above: Performed By: #### C BC, PT, CMPX, ALEJANDRO, LIP, MG, KAM, TRIG #### [facility] [address] [place] [address] Livestock Breeder: Sadi Gambino MD #### IOCAL #### [address] [address] Livestock Breeder: Sha Nicholson MD ALT [Catalytic activity/Vol] 100 U/L High 5-41 [facility] Comment on above: Performed By: #### C BC, PT, CMPX, ALEJANDRO, LIP, MG, KAM, TRIG #### [facility] [address] [place] [address] Livestock Breeder: Sadi Gambino MD #### IOCAL #### [address] [address] Livestock Breeder: Sha Nicholson MD Anion gap [Moles/Vol] 12 mmol/L Normal 9-17 [facility] Comment on above: Performed By: #### C BC, PT, CMPX, ALEJANDRO, LIP, MG, KAM, TRIG #### [facility] [address] [place] [address] Livestock Breeder: Sadi Gambino MD #### IOCAL #### [address] [address] Livestock Breeder: Sha Nicholson MD AST [Catalytic activity/Vol] 30 U/L Normal <40 [facility] Comment on above: Performed By: #### C BC, PT, CMPX, ALEJANDRO, LIP, MG, KAM, TRIG #### [facility] [place] [address] Livestock Breeder: Sadi Gambino MD #### IOCAL #### [address] [address] Livestock Breeder: Sha Nicholson MD Bilirubin Ql (U) 0.87 mg/dL Normal 0.3-1.2 [facility] Comment on above: Performed By: #### C BC, PT, CMPX, ALEJANDRO, LIP, MG, KAM, TRIG #### [facility] [address] [place] [address] Livestock Breeder: Sadi Gambino MD #### IOCAL #### [address] [address] Livestock Breeder: Sha Nicholson MD Bilirubin, Indirect 0.55 mg/dL Normal 0.00-1.00 [facility] Comment on above: Performed By: #### C BC, PT, CMPX, ALEJANDRO, LIP, MG, KAM, TRIG #### [facility] [place] [address] Livestock Breeder: Sadi Gambino MD #### IOCAL #### [address] [address] Livestock Breeder: Sha Nicholson MD Bilirubin.direct [Mass/Vol] 0.32 mg/dL High <0.31 [facility] Comment on above: Performed By: #### C BC, PT, CMPX, ALEJANDRO, LIP, MG, KAM, TRIG #### [facility] [address] [place] [address] Livestock Breeder: Sadi Gambino MD #### IOCAL #### [address] [address] Livestock Breeder: Sha Nicholson MD Calcium [Mass/Vol] 8.5 mg/dL Low 8.6-10.4 [facility] Comment on above: Performed By: #### C BC, PT, CMPX, ALEJANDRO, LIP, MG, KAM, TRIG #### [facility] [address] [place] [address] Livestock Breeder: Sadi Gambino MD #### IOCAL #### [address] [address] Livestock Breeder: Sha Nicholson MD Chloride [Moles/Vol] 104 mmol/L Normal 98-107 [facility] Comment on above: Performed By: #### C BC, PT, CMPX, ALEJANDRO, LIP, MG, KAM, TRIG #### [facility] [address] [place] [address] Livestock Breeder: Sadi Gambino MD #### IOCAL #### [address] [address] Livestock Breeder: Sha Nicholson MD CO2 [Moles/Vol] 24 mmol/L Normal 20-31 [facility] Comment on above: Performed By: #### C BC, PT, CMPX, ALEJANDRO, LIP, MG, KAM, TRIG #### [facility] [address] [place] [address] Livestock Breeder: Sadi Gambino MD #### IOCAL #### [address] [address] Livestock Breeder: Sha Nicholson MD Creatinine [Mass/Vol] 0.46 mg/dL Low 0.70-1.20 [facility] Comment on above: Performed By: #### C BC, PT, CMPX, ALEJANDRO, LIP, MG, KAM, TRIG #### [facility] [address] [place] [address] Livestock Breeder: Sadi Gambino MD #### IOCAL #### [address] [address] Livestock Breeder: Sha Nicholson MD GFR, Amer >60 Normal >60 [facility] Comment on above: Performed By: #### C BC, PT, CMPX, ALEJANDRO, LIP, MG, KAM, TRIG #### [facility] [address] [place] [address] Livestock Breeder: Sadi Gambino MD #### IOCAL #### [address] [address] Livestock Breeder: Sha Nicholson MD GFR,non Amer >60 Normal >60 [facility] Comment on above: Performed By: #### C BC, PT, CMPX, ALEJANDRO, LIP, MG, KAM, TRIG #### [facility] [address] [place] [address] Livestock Breeder: Sadi Gambino MD #### IOCAL #### [address] [address] Livestock Breeder: Sha Nicholson MD Glucose [Mass/Vol] 88 mg/dL Normal 70-99 [facility] Comment on above: Performed By: #### C BC, PT, CMPX, ALEJANDRO, LIP, MG, KAM, TRIG #### [facility] [address] [place] [address] Livestock Breeder: Sadi Gambino MD #### IOCAL #### [address] [address] Livestock Breeder: Sha Nicholson MD Potassium [Moles/Vol] 3.8 mmol/L Normal 3.7-5.3 [facility] Comment on above: Performed By: #### C BC, PT, CMPX, ALEJANDRO, LIP, MG, KAM, TRIG #### [facility] [address] [place] [address] Livestock Breeder: Sadi Gambino MD #### IOCAL #### [address] [address] Livestock Breeder: Sha Nicholson MD Protein [Mass/Vol] 6.0 g/dL Low 6.4-8.3 [facility] Comment on above: Performed By: #### C BC, PT, CMPX, ALEJANDRO, LIP, MG, KAM, TRIG #### [facility] [address] [place] [address] Livestock Breeder: Sadi Gambino MD #### IOCAL #### [address] [address] Livestock Breeder: Sha Nicholson MD Sodium [Moles/Vol] 140 mmol/L Normal 135-144 [facility] Comment on above: Performed By: #### C BC, PT, CMPX, ALEJANDRO, LIP, MG, KAM, TRIG #### [facility] [address] [place] [address] Livestock Breeder: Sadi Gambino MD #### IOCAL #### [address] [address] Livestock Breeder: Sha Nicholson MD Urea nitrogen [Mass/Vol] 5 mg/dL Low 6-20 [facility] Comment on above: Performed By: #### C BC, PT, CMPX, ALEJANDRO, LIP, MG, KAM, TRIG #### [facility] [address] [place] [address] Livestock Breeder: Sadi Gambino MD #### IOCAL #### [address] [address] Livestock Breeder: Sha Nicholson MD Albumin/Globulin [Mass ratio] NOT REPORTED Normal 1.0-2.5 [facility] Comment on above: Performed By: #### C BC, PT, CMPX, ALEJANDRO, LIP, MG, KAM, TRIG #### [facility] [address] [place] [address] Livestock Breeder: Sadi Gambino MD #### IOCAL #### [address] [address] Livestock Breeder: Sha Nicholson MD Staging: NOT REPORTED Normal [facility] Comment on above: Performed By: #### C BC, PT, CMPX, ALEJANDRO, LIP, MG, KAM, TRIG #### [facility] [address] [place] [address] Livestock Breeder: Sadi Gambino MD #### IOCAL #### [address] [address] Livestock Breeder: Sha Nicholson MD Comp Metabolic w Bili Profil med 06-10-2019 Albumin [Mass/Vol] 3.5 g/dL 3.5 - 5.2 g/dL [place] Albumin/Globulin [Mass ratio] NOT REPORTED [place] ALP [Catalytic activity/Vol] 89 U/L 40 - 129 U/L [place] ALT [Catalytic activity/Vol] 100 U/L High 5 - 41 U/L [place] Anion gap [Moles/Vol] 12 mmol/L 9 - 17 mmol/L [place] AST [Catalytic activity/Vol] 30 U/L <40 [place] Bilirubin Ql (U) 0.87 mg/dL 0.3 - 1.2 mg/dL [place] Bilirubin, Indirect 0.55 mg/dL 0 - 1 mg/dL [place] Bilirubin.direct [Mass/Vol] 0.32 mg/dL High <0.31 [place] Calcium [Mass/Vol] 8.5 mg/dL Low 8.6 - 10. 4 mg/dL [place] Chloride [Moles/Vol] 104 mmol/L 98 - 10 7 mmol/L [place] CO2 [Moles/Vol] 24 mmol/L 20 - 31 mmol/L [place] Creatinine [Mass/Vol] 0.46 mg/dL Low 0.7 - 1.2 mg/dL [place] GFR >60 >60 mL/min [place] GFR Non- >60 >60 mL/min [place] GFR/1.73 sq M predicted among non-blacks MDRD (S/P/Bld) [Vol rate/Area] NOT REPORTED [place] GFR/1.73 sq M predicted among non-blacks MDRD (S/P/Bld) [Vol rate/Area] [place] Comment on above: Average GFR for 30-3 9 years old: 107 mL/min/1.73sq m Chronic Kidney Disease: <60 mL/min/1.73sq m Kidney failure: <15 mL/min/1.73sq m eGFR calculated using average adult body mass. Additional eGFR calculator available at: http://www.[employer].nPario/multiple_crcl_2012.htm Glucose [Mass/Vol] 88 mg/dL 70 - 99 mg/dL [place] Potassium [Moles/Vol] 3.8 mmol/L 3.7 - 5.3 mmol/L [place] Protein [Mass/Vol] 6.0 g/dL Low 6.4 - 8.3 g/dL [place] Sodium [Moles/Vol] 140 mmol/L 135 - 144 mmol/L [place] Urea nitrogen [Mass/Vol] 5 mg/dL Low 6 - 20 mg/dL [place] Lipaseon 06-10-2019 Lipase [Catalytic activity/Vol] 198 U/L High 13-60 [facility] Comment on above: Performed By: #### C BC, PT, CMPX, ALEJANDRO, LIP, MG, KAM, TRIG #### [facility] [address] [place] [address] Livestock Breeder: Sadi Gambino MD #### IOCAL #### [address] [address] Livestock Breeder: Sha Nicholson MD Lipase [Catalytic activity/Vol] 198 U/L High 13 - 60 U/L [place] Otheron 06-10-2019 Interpretation and review of laboratory results Abnormal [place] Amylaseon 06-09-2019 Amylase [Catalytic activity/Vol] 645 U/L Critically high 28-100 [facility] Comment on above: Performed By: #### C BC, PT, CMPX, ALEJANDRO, LIP, MG, KAM, TRIG #### [facility] [address] [place] [address] Livestock Breeder: Sadi Gambino MD #### IOCAL #### [address] [address] Livestock Breeder: Sha Nicholson MD Amylase [Catalytic activity/Vol] 645 U/L Critically high 28 - 100 U/L [place] CBCon 06-09-2019 Erythrocyte distribution width (RBC) [Ratio] 12.2 % Normal 11.8-14.4 [facility] Comment on above: Performed By: #### C BC, PT, CMPX, ALEJANDRO, LIP, MG, KAM, TRIG #### [facility] [address] [place] [address] Livestock Breeder: Sadi Gambino MD #### IOCAL #### [address] [address] Livestock Breeder: Sha Nicholson MD Hematocrit (Bld) [Volume fraction] 39.0 % Low 40.7-50.3 [facility] Comment on above: Performed By: #### C BC, PT, CMPX, ALEJANDRO, LIP, MG, KAM, TRIG #### [facility] [address] [place] [address] Livestock Breeder: Sadi Gambino MD #### IOCAL #### [address] [address] Livestock Breeder: Sha Nicholson MD Hemoglobin (Bld) [Mass/Vol] 13.8 g/dL Normal 13.0-17.0 [facility] Comment on above: Performed By: #### C BC, PT, CMPX, ALEJANDRO, LIP, MG, KAM, TRIG #### [facility] [address] [place] [address] Livestock Breeder: Sadi Gambino MD #### IOCAL #### [address] [address] Livestock Breeder: Sha Nicholson MD MCH (RBC) [Entitic mass] 30.9 pg Normal 25.2-33.5 [facility] Comment on above: Performed By: #### C BC, PT, CMPX, ALEJANDRO, LIP, MG, KAM, TRIG #### [facility] [address] [place] [address] Livestock Breeder: Sadi Gambino MD #### IOCAL #### [address] [address] Livestock Breeder: Sha Nicholson MD MCHC (RBC) [Mass/Vol] 35.4 g/dL High 28.4-34.8 [facility] Comment on above: Performed By: #### C BC, PT, CMPX, ALEJANDRO, LIP, MG, KAM, TRIG #### [facility] [place] [address] Livestock Breeder: Sadi Gambino MD #### IOCAL #### [address] [address] Livestock Breeder: Sha Nicholson MD MCV (RBC) [Entitic vol] 87.4 fL Normal 82.6-102.9 [facility] Comment on above: Performed By: #### C BC, PT, CMPX, ALEJANDRO, LIP, MG, KAM, TRIG #### [facility] [address] [place] [address] Livestock Breeder: Sadi Gambino MD #### IOCAL #### [address] [address] Livestock Breeder: Sha Nicholson MD NRBC Automated 0.0 per 100 WBC Normal 0.0 [facility] Comment on above: Performed By: #### C BC, PT, CMPX, ALEJANDRO, LIP, MG, KAM, TRIG #### [facility] [address] [place] [address] Livestock Breeder: Sadi Gambino MD #### IOCAL #### [address] [address] Livestock Breeder: Sha Nicholson MD Platelet mean volume (Bld) [Entitic vol] 10.7 fL Normal 8.1-13.5 [facility] Comment on above: Performed By: #### C BC, PT, CMPX, ALEJANDRO, LIP, MG, KAM, TRIG #### [facility] [address] [place] [address] Livestock Breeder: Sadi Gambino MD #### IOCAL #### [address] [address] Livestock Breeder: Sha Nicholson MD Platelets (Bld) [#/Vol] 186 10*3/uL Normal 138-453 [facility] Comment on above: Performed By: #### C BC, PT, CMPX, ALEJANDRO, LIP, MG, KAM, TRIG #### [facility] [address] [place] [address] Livestock Breeder: Sadi Gambino MD #### IOCAL #### [address] [address] Livestock Breeder: Sha Nicholson MD RBC (Bld) [#/Vol] 4.46 10*6/uL Normal 4.21-5.77 [facility] Comment on above: Performed By: #### C BC, PT, CMPX, ALEJANDRO, LIP, MG, KAM, TRIG #### [facility] [address] [place] [address] Livestock Breeder: Sadi Gambino MD #### IOCAL #### [address] [address] Livestock Breeder: Sha Nicholson MD WBC (Bld) [#/Vol] 11.5 10*3/uL High 3.5-11.3 [facility] Comment on above: Performed By: #### C BC, PT, CMPX, ALEJANDRO, LIP, MG, KAM, TRIG #### [facility] [address] [place] [address] Livestock Breeder: Sadi Gambino MD #### IOCAL #### [address] [address] Livestock Breeder: Sha Nicholson MD Erythrocyte distribution width (RBC) [Ratio] 12.2 % 11.8 - 14.4 % [facility] [place] [place] Hematocrit (Bld) [Volume fraction] 39.0 % Low 40.7 - 50.3 % [place] Hemoglobin (Bld) [Mass/Vol] 13.8 g/dL 13 - 17 g/dL [place] Interpretation and review of laboratory results Abnormal [place] MCH (RBC) [Entitic mass] 30.9 pg 25.2 - 33.5 pg [place] MCHC (RBC) [Mass/Vol] 35.4 g/dL High 28.4 - 34.8 g/dL [place] MCV (RBC) [Entitic vol] 87.4 fL 82.6 - 102.9 fL [place] Platelet mean volume (Bld) [Entitic vol] 10.7 fL 8.1 - 13.5 fL [place] Platelets (Bld) [#/Vol] 186 10*3/uL [place] RBC (Bld) [#/Vol] 4.46 10*6/uL 4.21 - 5.7 7 m/uL [place] WBC (Bld) [#/Vol] 0.0 10*3/uL 0.0 per 10 0 WBC [place] WBC (Bld) [#/Vol] 11.5 10*3/uL High [place] Calcium, Ionicon 06-09-2019 Calcium [Mass/Vol] 1.23 mmol/L Normal 1.13-1.33 [facility] Comment on above: Performed By: #### C BC, PT, CMPX, ALEJANDRO, LIP, MG, KAM, TRIG #### [facility] [address] [place] [address] Livestock Breeder: Sadi Gambino MD #### IOCAL #### [facility] [address] [place], [place] [id number] Livestock Breeder: Sha Nicholson MD Calcium, Ionizedon 9 Calcium [Mass/Vol] 1.23 mmol/L 1.13 - 1. 33 mmol/L [place] Comp Metabolic Pr/rfx MGon 1 08-09-2018 (cont.) Normal [facility] Comment on above: Result Comment: Aver age GFR for 30-39 years old: 107 mL/min/1.73sq m Chronic Kidney Disease: <60 mL/min/1.73sq m Kidney failure: <15 mL/min/1.73sq m eGFR calculated using average adult body mass. Additional eGFR calculator available at: http://www.[employer].nPario/multiple_crcl_2012.htm Performed By: #### C BC, PT, CMPX, ALEJANDRO, LIP, MG, KAM, TRIG #### [facility] [address] [place] [address] Livestock Breeder: Sadi Gambino MD #### IOCAL #### [address] [address] Livestock Breeder: Sha Nicholson MD Albumin [Mass/Vol] 3.6 g/dL Normal 3.5-5.2 [facility] Comment on above: Performed By: #### C BC, PT, CMPX, ALEJANDRO, LIP, MG, KAM, TRIG #### [facility] [address] [place] [address] Livestock Breeder: Sadi Gambino MD #### IOCAL #### [address] [address] Livestock Breeder: Sha Nicholson MD Alkaline Phos 109 U/L Normal 40-129 [facility] Comment on above: Performed By: #### C BC, PT, CMPX, ALEJANDRO, LIP, MG, KAM, TRIG #### [facility] [address] [place] [address] Livestock Breeder: Sadi Gambino MD #### IOCAL #### [address] [address] Livestock Breeder: Sha Nicholson MD ALT [Catalytic activity/Vol] 119 U/L High 5-41 [facility] Comment on above: Performed By: #### C BC, PT, CMPX, ALEJANDRO, LIP, MG, KAM, TRIG #### [facility] [address] [place] [address] Livestock Breeder: Sadi Gambino MD #### IOCAL #### [address] [address] Livestock Breeder: Sha Nicholson MD Anion gap [Moles/Vol] 10 mmol/L Normal 9-17 [facility] Comment on above: Performed By: #### C BC, PT, CMPX, ALEJANDRO, LIP, MG, KAM, TRIG #### [facility] [address] [place] [address] Livestock Breeder: Sadi Gambino MD #### IOCAL #### [address] [address] Livestock Breeder: Sha Nicholson MD AST [Catalytic activity/Vol] 31 U/L Normal <40 [facility] Comment on above: Performed By: #### C BC, PT, CMPX, ALEJANDRO, LIP, MG, KAM, TRIG #### [facility] [address] [place] [address] Livestock Breeder: Sadi Gambino MD #### IOCAL #### [address] [address] Livestock Breeder: Sha Nicholson MD Bilirubin Ql (U) 1.04 mg/dL Normal 0.3-1.2 [facility] Comment on above: Performed By: #### C BC, PT, CMPX, ALEJANDRO, LIP, MG, KAM, TRIG #### [facility] [address] [place] [address] Livestock Breeder: Sadi Gambino MD #### IOCAL #### [address] [address] Livestock Breeder: Sha Nicholson MD BUN/CRE Ratio 15 Normal 9-20 [facility] Comment on above: Performed By: #### C BC, PT, CMPX, ALEJANDRO, LIP, MG, KAM, TRIG #### [facility] [address] [place] [address] Livestock Breeder: Sadi Gambino MD #### IOCAL #### [address] [address] Livestock Breeder: Sha Nicholson MD Calcium [Mass/Vol] 8.5 mg/dL Low 8.6-10.4 [facility] Comment on above: Performed By: #### C BC, PT, CMPX, ALEJANDRO, LIP, MG, KAM, TRIG #### [facility] [address] [place] [address] Livestock Breeder: Sadi Gambino MD #### IOCAL #### [address] [address] Livestock Breeder: Sha Nicholson MD Chloride [Moles/Vol] 101 mmol/L Normal 98-107 [facility] Comment on above: Performed By: #### C BC, PT, CMPX, ALEJANDRO, LIP, MG, KAM, TRIG #### [facility] [address] [place] [address] Livestock Breeder: Sadi Gambino MD #### IOCAL #### [address] [address] Livestock Breeder: Sha Nicholson MD CO2 [Moles/Vol] 25 mmol/L Normal 20-31 [facility] Comment on above: Performed By: #### C BC, PT, CMPX, ALEJANDRO, LIP, MG, KAM, TRIG #### [facility] [address] [place] [address] Livestock Breeder: Sadi Gambino MD #### IOCAL #### [address] [address] Livestock Breeder: Sha Nicholson MD Creatinine [Mass/Vol] 0.47 mg/dL Low 0.70-1.20 [facility] Comment on above: Performed By: #### C BC, PT, CMPX, ALEJANDRO, LIP, MG, KAM, TRIG #### [facility] [address] [place] [address] Livestock Breeder: Sadi Gambino MD #### IOCAL #### [address] [address] Livestock Breeder: Sha Nicholson MD GFR, Amer >60 Normal >60 [facility] Comment on above: Performed By: #### C BC, PT, CMPX, ALEJANDRO, LIP, MG, KAM, TRIG #### [facility] [address] [place] [address] Livestock Breeder: Sadi Gambino MD #### IOCAL #### [address] [address] Livestock Breeder: Sha Nicholson MD GFR,non Amer >60 Normal >60 [facility] Comment on above: Performed By: #### C BC, PT, CMPX, ALEJANDRO, LIP, MG, KAM, TRIG #### [facility] [address] [place] [address] Livestock Breeder: Sadi Gambino MD #### IOCAL #### [address] [address] Livestock Breeder: Sha Nicholson MD Glucose [Mass/Vol] 78 mg/dL Normal 70-99 [facility] Comment on above: Performed By: #### C BC, PT, CMPX, ALEJANDRO, LIP, MG, KAM, TRIG #### [facility] [address] [place] [address] Livestock Breeder: Sadi Gambino MD #### IOCAL #### [address] [address] Livestock Breeder: Sha Nicholson MD Potassium [Moles/Vol] 3.6 mmol/L Low 3.7-5.3 [facility] Comment on above: Performed By: #### C BC, PT, CMPX, ALEJANDRO, LIP, MG, KAM, TRIG #### [facility] [address] [place] [address] Livestock Breeder: Sadi Gambino MD #### IOCAL #### [address] [address] Livestock Breeder: Sha Nicholson MD Protein [Mass/Vol] 6.0 g/dL Low 6.4-8.3 [facility] Comment on above: Performed By: #### C BC, PT, CMPX, ALEJANDRO, LIP, MG, KAM, TRIG #### [facility] [address] [place] [address] Livestock Breeder: Sadi Gambino MD #### IOCAL #### [address] [address] Livestock Breeder: Sha Nicholson MD Sodium [Moles/Vol] 136 mmol/L Normal 135-144 [facility] Comment on above: Performed By: #### C BC, PT, CMPX, ALEJANDRO, LIP, MG, KAM, TRIG #### [facility] [address] [place] [address] Livestock Breeder: Sadi Gambino MD #### IOCAL #### [address] [address] Livestock Breeder: Sha Nicholson MD Urea nitrogen [Mass/Vol] 7 mg/dL Normal 6-20 [facility] Comment on above: Performed By: #### C BC, PT, CMPX, ALEJANDRO, LIP, MG, KAM, TRIG #### [facility] [address] [place] [address] Livestock Breeder: Sadi Gambino MD #### IOCAL #### [address] [address] Livestock Breeder: Sha Nicholson MD Albumin/Globulin [Mass ratio] NOT REPORTED Normal 1.0-2.5 [facility] Comment on above: Performed By: #### C BC, PT, CMPX, ALEJANDRO, LIP, MG, KAM, TRIG #### [facility] [address] [place], [place] [id number] Livestock Breeder: Sadi Gambino MD #### IOCAL #### [address] [phone] Livestock Breeder: Sha Nicholson MD Staging: NOT REPORTED Normal [facility] Comment on above: Performed By: #### C BC, PT, CMPX, ALEJANDRO, LIP, MG, KAM, TRIG #### [facility] [address] [place] [address] Livestock Breeder: Sadi Gambino MD #### IOCAL #### [address] [address] Livestock Breeder: Sha Nicholson MD Comprehensive Metabolic Pane l w/ Reflex to MGon 06-09-2019 Albumin [Mass/Vol] 3.6 g/dL 3.5 - 5.2 g/dL [place] Albumin/Globulin [Mass ratio] NOT REPORTED [place] ALP [Catalytic activity/Vol] 109 U/L 40 - 129 U/L [place] ALT [Catalytic activity/Vol] 119 U/L High 5 - 41 U/L [place] Anion gap [Moles/Vol] 10 mmol/L 9 - 17 mmol/L [place] AST [Catalytic activity/Vol] 31 U/L <40 [place] Bilirubin Ql (U) 1.04 mg/dL 0.3 - 1.2 mg/dL [place] Bun/Cre Ratio 15 [place] Calcium [Mass/Vol] 8.5 mg/dL Low 8.6 - 10. 4 mg/dL [place] Chloride [Moles/Vol] 101 mmol/L 98 - 10 7 mmol/L [place] CO2 [Moles/Vol] 25 mmol/L 20 - 31 mmol/L [place] Creatinine [Mass/Vol] 0.47 mg/dL Low 0.7 - 1.2 mg/dL [place] GFR >60 >60 mL/min [place] GFR Non- >60 >60 mL/min [place] GFR/1.73 sq M predicted among non-blacks MDRD (S/P/Bld) [Vol rate/Area] [place] Comment on above: Average GFR for 30-3 9 years old: 107 mL/min/1.73sq m Chronic Kidney Disease: <60 mL/min/1.73sq m Kidney failure: <15 mL/min/1.73sq m eGFR calculated using average adult body mass. Additional eGFR calculator available at: http://www.[employer].nPario/multiple_crcl_2012.htm GFR/1.73 sq M predicted among non-blacks MDRD (S/P/Bld) [Vol rate/Area] NOT REPORTED [place] Glucose [Mass/Vol] 78 mg/dL 70 - 99 mg/dL [place] Potassium [Moles/Vol] 3.6 mmol/L Low 3.7 - 5.3 mmol/L [place] Protein [Mass/Vol] 6.0 g/dL Low 6.4 - 8.3 g/dL [place] Sodium [Moles/Vol] 136 mmol/L 135 - 144 mmol/L [place] Urea nitrogen [Mass/Vol] 7 mg/dL 6 - 20 mg/dL [place] Lipaseon 06-09-2019 Lipase [Catalytic activity/Vol] 688 U/L High 13-60 [facility] Comment on above: Performed By: #### C BC, PT, CMPX, ALEJANDRO, LIP, MG, KAM, TRIG #### [facility] [address] [place] [address] Livestock Breeder: Sadi Gambino MD #### IOCAL #### [address] [phone] Livestock Breeder: Sha Nicholson MD Lipase [Catalytic activity/Vol] 688 U/L High 13 - 60 U/L [place] Magnesiumon 06-09-2019 Magnesium [Mass/Vol] 1.8 mg/dL Normal 1.6-2.6 [facility] Comment on above: Performed By: #### C BC, PT, CMPX, ALEJANDRO, LIP, MG, KAM, TRIG #### [facility] [address] [place] [address] Livestock Breeder: Sadi Gambino MD #### IOCAL #### [address] [phone] Livestock Breeder: Sha Nicholson MD Magnesium [Mass/Vol] 1.8 mg/dL 1.6 - 2 .6 mg/dL [place] Otheron 06-09-2019 Interpretation and review of laboratory results Abnormal [place] PTon 06-09-2019 INR Coag (PPP) [Relative time] 1.0 {INR} Normal [facility] Comment on above: Result Comment: Therapeutic Range: Moderate Anticoagulant Intensity: INR = 2.0-3.0 High Anticoagulant Intensity: INR = 2.5-3.5 High anticoagulant intensity for patients with a mechanical prosthetic heart valve, thrombosis and antiphospholipid syndrome, or myocardial infarction. Performed By: #### C BC, PT, CMPX, ALEJANDRO, LIP, MG, KAM, TRIG #### [facility] [address] [place] [address] Livestock Breeder: Sadi Gambino MD #### IOCAL #### [address] [address] Livestock Breeder: Sha Nicholson MD PT Coag (PPP) [Time] 10.6 s Normal 9.7-11.6 [facility] Comment on above: Performed By: #### C BC, PT, CMPX, ALEJANDRO, LIP, MG, KAM, TRIG #### [facility] [address] [place] [address] Livestock Breeder: Sadi Gambino MD #### IOCAL #### [address] [address] Livestock Breeder: Sha Nicholson MD Phosphoruson 06-09-2019 Phosphate [Mass/Vol] 2.7 mg/dL 2.5 - 4 .5 mg/dL [place] Phosphorus, Inorg.on 019 Phosphorus, Inorg. 2.7 mg/dL Normal 2.5-4.5 [facility] Comment on above: Performed By: #### C BC, PT, CMPX, ALEJANDRO, LIP, MG, KAM, TRIG #### [facility] [address] [place] [address] Livestock Breeder: Sadi Gambino MD #### IOCAL #### [address] [address] Livestock Breeder: Sha Nicholson MD Protime-INRon 06-09-2019 INR Coag (PPP) [Relative time] 1.0 {INR} [place] Comment on above: Therapeutic Range: Moderate Anticoagulant Intensity: INR = 2.0-3.0 High Anticoagulant Intensity: INR = 2.5-3.5 High anticoagulant intensity for patients with a mechanical prosthetic heart valve, thrombosis and antiphospholipid syndrome, or myocardial infarction. PT Coag (PPP) [Time] 10.6 s [place] Triglycerideon 06-09-2019 Triglyceride [Mass/Vol] 122 mg/dL <150 M [place] Comment on above: Triglyceride Guidelines: <150 Desirable 150-199 Borderline 200-499 High >499 Very high Based on AHA Guidelines for fasting triglyceride, May 2012. Triglycerideson 06-09-2019 Triglyceride [Mass/Vol] 122 mg/dL Normal <150 M [facility] Comment on above: Result Comment: Triglyceride Guidelines: <150 Desirable 150-199 Borderline 200-499 High >499 Very high Based on AHA Guidelines for fasting triglyceride, May 2012. Performed By: #### C BC, PT, CMPX, ALEJANDRO, LIP, MG, KAM, TRIG #### [facility] [address] [place], [place] [id number] Livestock Breeder: Sadi Gambino MD #### IOCAL #### [address] [address] Livestock Breeder: Sha Nicholson MD Hepatitis Acute [facility] 06-08 Hep A Ab,IgM NONREACTIVE Normal [facility] Comment on above: Performed By: #### P HEP #### [address] [address] Livestock Breeder: Sha Nicholson MD Hep B Core Ab,IgM NONREACTIVE Normal [facility] Comment on above: Performed By: #### P HEP #### [address] [address] Livestock Breeder: Sha Nicholson MD Hep B Surf Ag NONREACTIVE Normal [facility] Comment on above: Performed By: #### P HEP #### [address] [address] Livestock Breeder: Sha Nicholson MD Hep C Ab NONREACTIVE Normal [facility] Comment on above: Result Comment: The [...] PCR. Performed By: #### P HEP #### [address] [id number] [place] [address] Livestock Breeder: Sha Nicholson MD HAV IgM IA Qn (S) NONREACTIVE NONREACTIVE [place] Hep B Core Ab, IgM NONREACTIVE NONREACTIVE [place] Hepatitis B Surface Ag NONREACTIVE NONREACTIVE [place] Hepatitis C Ab NONREACTIVE NONREACTIVE [place] Comment on above: The hepatitis C [...] [Ratio] 12.4 % 11.8 - 14.4 % [place] Hematocrit (Bld) [Volume fraction] 47.2 % 40.7 - 50.3 % [place] Hemoglobin (Bld) [Mass/Vol] 16.0 g/dL 13 - 17 g/dL [place] Interpretation and review of laboratory results Abnormal [place] MCH (RBC) [Entitic mass] 30.4 pg 25.2 - 33.5 pg [place] MCHC (RBC) [Mass/Vol] 33.9 g/dL 28.4 - 34.8 g/dL [place] MCV (RBC) [Entitic vol] 89.7 fL 82.6 - 102.9 fL [place] Platelet mean volume (Bld) [Entitic vol] 10.6 fL 8.1 - 13.5 fL [place] Platelets (Bld) [#/Vol] 258 10*3/uL [place] RBC (Bld) [#/Vol] 5.26 10*6/uL 4.21 - 5.7 7 m/uL [place] WBC (Bld) [#/Vol] 15.4 10*3/uL High [place] WBC (Bld) [#/Vol] 0.0 10*3/uL 0.0 per 10 0 WBC [place] Erythrocyte distribution width (RBC) [Ratio] 12.4 % 11.8 - 14.4 % [place] Hematocrit (Bld) [Volume fraction] 44.2 % 40.7 - 50.3 % [place] Hemoglobin (Bld) [Mass/Vol] 15.0 g/dL 13 - 17 g/dL [place] MCH (RBC) [Entitic mass] 30.7 pg 25.2 - 33.5 pg [place] MCHC (RBC) [Mass/Vol] 33.9 g/dL 28.4 - 34.8 g/dL [place] MCV (RBC) [Entitic vol] 90.4 fL 82.6 - 102.9 fL [place] Platelet mean volume (Bld) [Entitic vol] 10.4 fL 8.1 - 13.5 fL [place] Platelets (Bld) [#/Vol] 227 10*3/uL [place] RBC (Bld) [#/Vol] 4.89 10*6/uL 4.21 - 5.7 7 m/[place]L [place] WBC (Bld) [#/Vol] 10.1 10*3/uL [place] WBC (Bld[place] [#/Vol] 0.0 10*3/uL 0.0 per 10 0 WBC [place] Comprehensive Metabolic Pane karla 06-07-2019 Albumin [Mass/Vol] 4.4 g/dL 3.5 - 5.2 g/dL [place] Albumin/Globulin [Mass ratio] 1.5 {ratio} [place] ALP [Catalytic activity/Vol] 120 U/L 40 - 129 U/L [place] ALT [Catalytic activity/Vol] 261 U/L High 5 - 41 U/L [place] Anion gap [Moles/Vol] 12 mmol/L 9 - 17 mmol/L [place] AST [Catalytic activity/Vol] 123 U/L High <40 [place] Bilirubin Ql (U) 5.24 mg/dL High 0.3 - 1.2 mg/dL [place] Bun/Cre Ratio 19 [place] Calcium [Mass/Vol] 9.3 mg/dL 8.6 - 10. 4 mg/dL [place] Chloride [Moles/Vol] 98 mmol/L 98 - 10 7 mmol/L [place] CO2 [Moles/Vol] 26 mmol/L 20 - 31 mmol/L [place] Creatinine [Mass/Vol] 0.57 mg/dL Low 0.7 - 1.2 mg/dL [place] GFR >60 >60 mL/min [place] GFR Non- >60 >60 mL/min [place] Glucose [Mass/Vol] 89 mg/dL 70 - 99 mg/dL [place] Interpretation and review of laboratory results Abnormal [place] Potassium [Moles/Vol] 3.5 mmol/L Low 3.7 - 5.3 mmol/L [place] Protein [Mass/Vol] 7.4 g/dL 6.4 - 8.3 g/dL [place] Sodium [Moles/Vol] 136 mmol/L 135 - 144 mmol/L [place] Urea nitrogen [Mass/Vol] 11 mg/dL 6 - 20 mg/dL [place] Comprehensive Metabolic Pane l w/ Reflex to MGon 06-07-2019 Albumin [Mass/Vol] 3.9 g/dL 3.5 - 5.2 g/dL [place] Albumin/Globulin [Mass ratio] 1.4 {ratio} [place] ALP [Catalytic activity/Vol] 90 U/L 40 - 129 U/L [place] ALT [Catalytic activity/Vol] 289 U/L High 5 - 41 U/L [place] Anion gap [Moles/Vol] 13 mmol/L 9 - 17 mmol/L [place] AST [Catalytic activity/Vol] 201 U/L High <40 [place] Bilirubin Ql (U) 3.38 mg/dL High 0.3 - 1.2 mg/dL [place] Bun/Cre Ratio 15 [place] Calcium [Mass/Vol] 9.3 mg/dL 8.6 - 10. 4 mg/dL [place] Chloride [Moles/Vol] 99 mmol/L 98 - 10 7 mmol/L [place] CO2 [Moles/Vol] 22 mmol/L 20 - 31 mmol/L [place] Creatinine [Mass/Vol] 0.61 mg/dL Low 0.7 - 1.2 mg/dL [place] GFR >60 >60 mL/min [place] GFR Non- >60 >60 mL/min [place] Glucose [Mass/Vol] 88 mg/dL 70 - 99 mg/dL [place] Interpretation and review of laboratory results Abnormal [place] Potassium [Moles/Vol] 4.3 mmol/L 3.7 - 5.3 mmol/L [place] Protein [Mass/Vol] 6.7 g/dL 6.4 - 8.3 g/dL [place] Sodium [Moles/Vol] 134 mmol/L Low 135 - 144 mmol/L [place] Urea nitrogen [Mass/Vol] 9 mg/dL 6 - 20 mg/dL [place] EKG 12 Leadon 06-07-2019 Atrial Rate 80 BPM [place] P Cade -6 degrees [place] P-R Interval 146 ms [place] Q-T Interval 380 ms [place] QRS Duration 104 ms [place] QTc Calculation (Bazett) 438 ms [place] R Cade -6 degrees [place] T Cade 25 degrees [place] Ventricular Rate 80 BPM [place] Jasen, Mhpn Incoming Ekg Results From [place] - 06/07/2019 5:43 AM EDT Normal sinus rhythm Normal ECG When compared with ECG of 17-FEB-2018 18:55, No significant change was found Confirmed by Abran RITCHIE MD ([id number]) on 06/07/2019 5:43:09 AM [place] Normal sinus rhythm Normal ECG When compared with ECG of 17-FEB-2018 18:55, No significant change was found Confirmed by Abran RITCHIE MD ([id number]) on 06/07/2019 5:43:09 AM [place] Lactic Acid, Plasmaon 2018 Lactate [Moles/Vol] 1.1 mmol/L 0.5 - 2. 2 mmol/L [place] Lactic Acid, Whole Blood NOT REPORTED 0.7 - 2.1 mmol/L [place] Lipaseon 06-07-2019 Interpretation and review of laboratory results Abnormal [place] Lipase [Catalytic activity/Vol] U/L Critically high 13 - 60 U/L [place] Metabolic Panelon 06-07-2019 GFR/1.73 sq M predicted among non-blacks MDRD (S/P/Bld) [Vol rate/Area] [place] Comment on above: Average GFR for 30-3 9 years old: 107 mL/min/1.73sq m Chronic Kidney Disease: <60 mL/min/1.73sq m Kidney failure: <15 mL/min/1.73sq m eGFR calculated using average adult body mass. Additional eGFR calculator available at: http://www.[employer].com/multiple_crcl_2012.htm Stage 1: Some kidney damage normal GFR Stage 2: Mild kidney damage GFR 60-89 Stage 3: Moderate kidney damage GFR 30-59 Stage 4: Severe kidney damage GFR 15-29 Stage 5: Severe kidney damage GFR <15 ESRD - chronic treatment by dialysis or transplant GFR/1.73 sq M predicted among non-blacks MDRD (S/P/Bld) [Vol rate/Area] [place] Comment on above: Average GFR for 30-3 9 years old: 107 mL/min/1.73sq m Chronic Kidney Disease: <60 mL/min/1.73sq m Kidney failure: <15 mL/min/1.73sq m eGFR calculated using average adult body mass. Additional eGFR calculator available at: http://www.[employer]/multiple_crcl_2012.htm Stage 1: Some kidney damage normal GFR Stage 2: Mild kidney damage GFR 60-89 Stage 3: Moderate kidney damage GFR 30-59 Stage 4: Severe kidney damage GFR 15-29 Stage 5: Severe kidney damage GFR <15 ESRD - chronic treatment by dialysis or transplant US GALLBLADDER RUQon 019 Cholesterol [Mass/Vol] Cholelithiasis. Abnormal findings of the gallbladder, suspicious for acute cholecystitis. [place] Jasen, Feliz Incoming Radiant Results From [email or web address] - 06/07/2019 7:57 AM EDT EXAMINATION: RIGHT [...] of the gallbladder, suspicious for acute cholecystitis. [facility] [place] EXAMINATION: RIGHT UPPER QUADRANT ULTRASOUND 06/07/2019 7:01 [...] No evidence of right upper quadrant ascites. [place] APTTon 06-06-2019 aPTT Coag (Bld) [Time] 26.9 s [place] CBC auto differentialon 05-09 Basophils (Bld) [#/Vol] 0.05 10*3/uL [place] Basophils/100 WBC (Bld) 0 % 0 - 2 % M [place] Differential Type NOT REPORTED [place] Eosinophils (Bld) [#/Vol] 0.09 10*3/uL [place] Eosinophils/100 WBC (Bld) 1 % 1 - 4 % [place] Erythrocyte distribution width (RBC) [Ratio] 12.0 % 11.8 - 14.4 % [place] Hematocrit (Bld) [Volume fraction] 48.2 % 40.7 - 50.3 % [place] Hemoglobin (Bld) [Mass/Vol] 17.0 g/dL 13 - 17 g/dL [place] Immature granulocytes (Bld) [#/Vol] 0.06 10*3/uL [place] Immature granulocytes (Bld) [#/Vol] 0 % 0 [place] Interpretation and review of laboratory results Abnormal [place] Lymphocytes (Bld) [#/Vol] 1.45 10*3/uL [place] Lymphocytes/100 WBC (Bld) 10 % Low 24 - 43 % [place] MCH (RBC) [Entitic mass] 31.1 pg 25.2 - 33.5 pg [place] MCHC (RBC) [Mass/Vol] 35.3 g/dL High 28.4 - 34.8 g/dL [place] MCV (RBC) [Entitic vol] 88.1 fL 82.6 - 102.9 fL [place] Monocytes (Bld) [#/Vol] 0.82 10*3/uL [place] Monocytes/100 WBC (Bld) 6 % 3 - 12 % [place] Platelet mean volume (Bld) [Entitic vol] 10.5 fL 8.1 - 13.5 fL [place] Platelets (Bld) [#/Vol] 268 10*3/uL [place] Platelets (Bld) [#/Vol] NOT REPORTED [place] RBC (Bld) [#/Vol] 5.47 10*6/uL 4.21 - 5.7 7 m/uL [place] RBC morphology finding Nom (Bld) NOT REPORTED [place] Segmented neutrophils/100 WBC (Bld) 83 % High 36 - 65 % [place] Segs Absolute 11.83 High [place] WBC (Bld) [#/Vol] 0.0 10*3/uL 0.0 per 10 0 WBC [place] WBC (Bld) [#/Vol] 14.3 10*3/uL [place] WBC Morphology NOT REPORTED [place] ABDOMEN PELVIS W IV CONTR Lynn 06-06-2019 INR Coag (Bld) [Relative time] Addendum by Hitesh Becker MD on 06/06/2019 8:35 PM ADDENDUM: Possible mild pericholecystic fluid and punctate gallstone. Possible mild inflammatory changes. Recommend gallbladder ultrasound to exclude cholelithiasis or cholecystitis. [place] EXAMINATION: CT OF THE ABDOMEN AND [...] fusion rods and a disc spacer L4-5. [place] Nonobstructing nephrolith on the left otherwise no acute disease [place] Jasen, Mhpn Incoming Radiant Results From [employer] - 06/06/2019 8:01 PM EDT EXAMINATION: CT [...] on the left otherwise no acute disease [place] Comprehensive metabolic pane karla 06-06-2019 Albumin [Mass/Vol] 4.9 g/dL 3.5 - 5.2 g/dL [place] Albumin/Globulin [Mass ratio] 1.4 {ratio} [place] ALP [Catalytic activity/Vol] 88 U/L 40 - 129 U/L [place] ALT [Catalytic activity/Vol] 268 U/L High 5 - 41 U/L [place] Anion gap [Moles/Vol] 11 mmol/L 9 - 17 mmol/L [place] AST [Catalytic activity/Vol] 241 U/L High <40 [place] Bilirubin Ql (U) 2.32 mg/dL High 0.3 - 1.2 mg/dL [place] Bun/Cre Ratio 15 [place] Calcium [Mass/Vol] 10.4 mg/dL 8.6 - 10. 4 mg/dL [place] Chloride [Moles/Vol] 96 mmol/L Low 98 - 10 7 mmol/L [place] CO2 [Moles/Vol] 29 mmol/L 20 - 31 mmol/L [place] Creatinine [Mass/Vol] 0.62 mg/dL Low 0.7 - 1.2 mg/dL [place] GFR >60 >60 mL/min [place] GFR Non- >60 >60 mL/min [place] Glucose [Mass/Vol] 165 mg/dL High 70 - 99 mg/dL [place] Interpretation and review of laboratory results Abnormal [place] Potassium [Moles/Vol] 4.0 mmol/L 3.7 - 5.3 mmol/L [place] Protein [Mass/Vol] 8.3 g/dL 6.4 - 8.3 g/dL [place] Sodium [Moles/Vol] 136 mmol/L 135 - 144 mmol/L [place] Urea nitrogen [Mass/Vol] 9 mg/dL 6 - 20 mg/dL [place] Lactic acid, plasmaon 2018 Lactate [Moles/Vol] 0.6 mmol/L 0.5 - 2. 2 mmol/L [place] Lactic Acid, Whole Blood NOT REPORTED 0.7 - 2.1 mmol/L [place] Lipaseon 06-06-2019 Lipase [Catalytic activity/Vol] 14 U/L 13 - 60 U/L [place] Metabolic Panelon 06-06-2019 GFR/1.73 sq M predicted among non-blacks MDRD (S/P/Bld) [Vol rate/Area] [place] Comment on above: Stage 1: Some [...] body mass. Additional eGFR calculator available at: http://www.[employer]/multiple_crcl_2012.htm Protime-INRon 06-06-2019 INR Coag (PPP) [Relative time] 1.0 {INR} [place] PT Coag (PPP) [Time] 10.1 s [place] Urinalysis with microscopico n 06-06-2019 Amorphous, UA 3+ Abnormal None [place] Bacteria, UA NOT REPORTED None [place] Bilirubin Urine SMALL Abnormal NEGATIVE [place] Casts UA NOT REPORTED /LPF [place] Color, UA YELLOW YELLOW [place] Crystals UA NOT REPORTED None /HPF [place] Epithelial Cells UA 0 TO 2 [place] Glucose, Ur Negative NEGATIVE [place] Interpretation and review of laboratory results Abnormal [place] Ketones Ql (U) Negative NEGATIVE [place] Leukocyte esterase Test strip Ql (U) Negative NEGATIVE [place] Mucus, UA NOT REPORTED None [place] Nitrite, Urine Negative NEGATIVE [place] Other Observations UA NOT REPORTED NOT REQ. [place] pH, UA 8.5 [place] Protein (U) [Mass/Vol] Negative NEGATIVE [place] RBC (U) [#/Vol] None [place] Renal Epithelial, Urine NOT REPORTED 0 /HPF [place] Specific [place], UA 1.015 [place] Trichomonas, UA NOT REPORTED None [facility] [place] Turbidity UA CLEAR CLEAR [facility] Urinalysis Comments NOT REPORTED [facility] Urine Hgb Negative NEGATIVE [facility] Urobilinogen, Urine Normal Normal [facility] WBC, UA None [facility] Yeast, UA NOT REPORTED None [facility] [place] - [facility] [place] Vital Signs Date Time Vital Sign Value Performing Clinician Faci lity 04-09-2024 16:00-0400 Mean blood pressure 117 mm[Hg] Tan Daileye [facility] 04-09-2024 16:00-0400 Respiratory rate 18 /min Tan Daileye [facility] 04-09-2024 16:00-0400 SaO2% (BldA) [Mass fraction] 95 % Tan Daileye [facility] 04-09-2024 16:00-0400 Systolic blood pressure 152 mm[Hg] Tan Daileye [facility] 04-09-2024 15:00-0400 Diastolic blood pressure 86 mm[Hg] Tan Daileye [facility] 04-09-2024 15:00-0400 Heart rate 73 /min Tan Daileye [facility] 04-09-2024 15:00-0400 SaO2% (BldA) [Mass fraction] 96 % Tan Daileye [facility] 04-09-2024 15:00-0400 Systolic blood pressure 142 mm[Hg] Tan Daileye [facility] 04-09-2024 13:49-0400 Diastolic blood pressure 100 mm[Hg] Tan Daileye [facility] 04-09-2024 13:49-0400 Heart rate 75 /min Tan Daileye [facility] 04-09-2024 13:49-0400 Mean blood pressure 118 mm[Hg] Tan Dempsey [facility] 04-09-2024 13:49-0400 Respiratory rate 12 /min Tan Dempesy [facility] 04-09-2024 13:49-0400 SaO2% (BldA) [Mass fraction] 97 % Tan Dempsey [facility] 04-09-2024 13:49-0400 Systolic blood pressure 153 mm[Hg] Tan Dempsey [facility] 04-09-2024 13:27-0400 Hourly Rounding Tan Dempsey [facility] 04-09-2024 13:27-0400 Promise to Return Tan Dempsey [facility] 04-09-2024 12:52-0400 Body temperature 98.06 [degF] Tan Dempsey [facility] 04-09-2024 12:52-0400 Heart rate 78 /min Tan Dempsey [facility] 04-09-2024 12:52-0400 Respiratory rate 16 /min Tan Dempsey [facility] 04-04-2024 12:26-0400 Body temperature 97.7 [degF] [facility] 04-04-2024 12:26-0400 Diastolic blood pressure 98 mm[Hg] [facility] 04-04-2024 12:26-0400 Heart rate 92 /min [facility] 04-04-2024 12:26-0400 Respiratory rate 16 /min [facility] 04-04-2024 12:26-0400 SaO2% (BldA) [Mass fraction] 96 % [facility] 04-04-2024 12:26-0400 Systolic blood pressure 177 mm[Hg] Ast[facility] 10-23-2023 12:27-0400 Diastolic blood pressure 84 mm[Hg] Ronobir CLARY [facility] 10-23-2023 12:27-0400 Heart rate 115 /min Ronobir CLARY [facility] 10-23-2023 12:27-0400 Systolic blood pressure 135 mm[Hg] Ronobir CLARY [facility] 10-23-2023 12:06-0400 Hourly Rounding Ronobir CLARY [facility] 10-23-2023 12:06-0400 Promise to Return Ronobir CLARY [facility] 10-23-2023 11:55-0400 Heart rate 117 /min Ronobir CLARY [facility] 10-23-2023 11:55-0400 SaO2% (BldA) [Mass fraction] 96 % Ronobir CLARY [facility] 10-23-2023 11:54-0400 Diastolic blood pressure 84 mm[Hg] Ronobir CLARY [facility] 10-23-2023 11:54-0400 Mean blood pressure 101 mm[Hg] Ronobir CLARY [facility] 10-23-2023 11:54-0400 Systolic blood pressure 135 mm[Hg] Ronobir CLARY [facility] 10-23-2023 11:53-0400 Body temperature 98.06 [degF] Ronobir CLARY [facility] 10-23-2023 11:11-0400 Hourly Rounding Ronobir CLARY [facility] 10-23-2023 11:11-0400 Promise to Return Ronobir CLARY [facility] 10-23-2023 11:00-0400 Hourly Rounding Ronobir CLARY [facility] 10-23-2023 09:14-0400 Promise to Return Ronobir CLARY [facility] 10-23-2023 02:10-0400 Body temperature 97.7 [degF] Ronobir CLARY [facility] 10-23-2023 02:10-0400 Diastolic blood pressure 86 mm[Hg] Ronobir CLARY [facility] 10-23-2023 02:10-0400 Heart rate 75 /min Ronobir CLARY [facility] 10-23-2023 02:10-0400 Mean blood pressure 102 mm[Hg] Ronobir CLARY [facility] 10-23-2023 02:10-0400 Respiratory rate 18 /min Ronobir CLARY [facility] 10-23-2023 02:10-0400 SaO2% (BldA) [Mass fraction] 96 % Ronobir CLARY [facility] 10-23-2023 02:10-0400 Systolic blood pressure 135 mm[Hg] Ronobir CLARY [facility] 10-22-2023 20:46-0400 Heart rate 112 /min Ronobir CLARY [facility] 10-22-2023 19:00-0400 Heart rate 65 /min Ronobir CLARY [facility] 10-22-2023 19:00-0400 SaO2% (BldA) [Mass fraction] 95 % Ronobir CLARY [facility] 10-22-2023 16:42-0400 Heart rate 83 /min Ronobir CLARY [facility] 10-22-2023 16:39-0400 Body temperature 97.88 [degF] Ronobir CLARY [facility] 10-22-2023 16:39-0400 Mean blood pressure 117 mm[Hg] Ronobir CLARY [facility] 10-22-2023 11:53-0400 Heart rate 75 /min Ronobir CLARY [facility] 10-22-2023 11:52-0400 Mean blood pressure 118 mm[Hg] Ronobir CLARY [facility] 10-22-2023 11:51-0400 Body temperature 97.52 [degF] Ronobir CLARY [facility] 10-22-2023 03:00-0400 Body temperature 98.06 [degF] Ronobir CLARY [facility] 10-22-2023 03:00-0400 Heart rate 84 /min Ronobir CLARY [facility] 10-22-2023 03:00-0400 Respiratory rate 18 /min Ronobir CLARY [facility] 10-22-2023 01:40-0400 Mean blood pressure 120 mm[Hg] Ronobir CLARY [facility] 10-21-2023 22:15-0400 Blood Pressure Location Ronobir CLARY [facility] 10-21-2023 22:15-0400 Heart rate 101 /min Ronobir CLARY [facility] 10-21-2023 22:15-0400 Respiratory rate 18 /min Ronobir CLARY [facility] 10-21-2023 21:00-0400 Mean blood pressure 135 mm[Hg] Ronobir CLARY [facility] 10-21-2023 21:00-0400 Respiratory rate 21 /min Ronobir CLARY [facility] 10-21-2023 20:00-0400 Respiratory rate 8 /min Ronobir CLARY [facility] 10-21-2023 19:45-0400 Respiratory rate 12 /min Ronobir CLARY [facility] 06-09-2021 06:18-0400 SaO2% (BldA) [Mass fraction] 97 % Micheal Kwok MD Work Phone: [place] Work Phone: 06-09-2021 05:45-0400 Diastolic blood pressure 94 mm[Hg] Micheal Kwok MD Work Phone: [place] Work Phone: 06-09-2021 05:45-0400 Systolic blood pressure 179 mm[Hg] Micheal Kwok MD Work Phone: [place] Work Phone: 06-09-2021 05:24-0400 Respiratory rate 20 /min Micheal Kwok MD Work Phone: [place] Work Phone: 06-09-2021 04:52-0400 Body mass index (BMI) [Ratio] 37.31 kg/m2 Micheal Kwok MD Work Phone: [place] Work Phone: 06-09-2021 04:52-0400 Body temperature 97 [degF] Micheal Kwok MD Work Phone: [place] Work Phone: 06-09-2021 04:52-0400 Body weight 117.94 kg Micheal Kwok MD Work Phone: [place] Work Phone: 06-09-2021 04:52-0400 Heart rate 97 /min Micheal Kwok MD Work Phone: [place] Work Phone: 06-07-2021 17:08-0400 Diastolic blood pressure 116 mm[Hg] Linette Tapia DO Work Phone: [facility] Work Phone: 06-07-2021 17:08-0400 Systolic blood pressure 181 mm[Hg] Linette Tapia DO Work Phone: [place] Work Phone: 06-07-2021 17:03-0400 Body temperature 98.2 [degF] Linette Tapia DO Work Phone: [place] Work Phone: 06-07-2021 17:03-0400 Heart rate 118 /min Linette Tapia DO Work Phone: [place] Work Phone: 06-07-2021 17:03-0400 Respiratory rate 22 /min Linette Tapia DO Work Phone: [place] Work Phone: 06-07-2021 17:03-0400 SaO2% (BldA) [Mass fraction] 97 % Linette Tapia DO Work Phone: [place] Work Phone: 06-13-2019 12:56-0500 Body Temperature 98.1 [degF] [facility] [place] 06-13-2019 12:56-0500 BP Diastolic 82 mm[Hg] [facility] [place] 06-13-2019 12:56-0500 BP Systolic 151 mm[Hg] [facility] [place] 06-13-2019 12:56-0500 Pulse (Heart Rate) 62 /min [facility] [place] 06-13-2019 12:56-0500 Pulse Oximetry 97 % [facility] [place] 06-13-2019 12:56-0500 Respiratory Rate 16 /min [facility] [place] 06-13-2019 05:21-0500 BMI (Body Mass Index) 28.15 kg/m2 [facility] [place] 06-13-2019 05:21-0500 Body weight 89 kg [facility] [place] 06-13-2019 01:30-0500 Height 177.8 cm [facility] [place] 06-07-2019 22:16-0400 BP Diastolic 99 mm[Hg] [facility] [place] 06-07-2019 22:16-0400 BP Systolic 172 mm[Hg] Rodrick [facility] , [place] 06-07-2019 22:16-0400 Pulse Oximetry 96 % [facility] [place] 06-07-2019 20:11-0400 Pulse (Heart Rate) 78 /min [facility] [place] 06-07-2019 20:05-0400 Respiratory Rate 18 /min [facility] [place] 06-07-2019 18:00-0400 Body Temperature 97.59 [degF] [facility] [place] 06-07-2019 12:46-0400 Body Temperature 98.8 [degF] Kailash Rogesr [facility], [place] 06-07-2019 12:46-0400 BP Diastolic 84 mm[Hg] Kailash Rogers [facility], [place] 06-07-2019 12:46-0400 BP Systolic 137 mm[Hg] Kailash Montanez [facility], [place] 06-07-2019 12:46-0400 Pulse (Heart Rate) 64 /min Kailash Montalvo [facility], [place] 06-07-2019 12:46-0400 Pulse Oximetry 94 % Kailash Montanez [facility], [place] 06-07-2019 12:46-0400 Respiratory Rate 18 /min Kailash Montanez [facility], [place] 06-07-2019 08:33-0400 Height 177.8 cm Kailash Montanez [facility], [place] 06-07-2019 02:59-0400 BMI (Body Mass Index) 29.27 kg/m2 Kailash Montanez [facility], [place] 06-07-2019 02:59-0400 Body weight 92.53 kg Kailash Montanez [facility], [place] Encounters Encounter Date Encounter Type Care Provider Facility Start: 04-09-2024 End: 04-09-2024 Emergency department patient visit Tan Dempsey [facility] Start: 04-04-2024 End: 04-04-2024 Emergency department patient visit John Saldana [facility] Start: 12-21-2023 End: 12-21-2023 ambulatory [facility] Ambulatory [facility] Start: 10-30-2023 End: 10-31-[address] [facility] Start: 10-21-2023 End: 10-23-2023 Evaluation and management of inpatient Ronobir R CLARY Facility:[facility] Start: 10-21-2023 End: 10-23-2023 Evaluation and management of inpatient Ronobir R CLARY [facility] Start: 06-09-2021 End: 06-09-2021 Emergency department patient visit MICHEAL KWOK [facility] Start: 06-09-2021 End: 06-09-2021 Emergency department patient visit Micheal Kwok MD Work Phone: [facility] ED Comment on above: Cough (Primary Dx); Shortness of breath; Essential hypertension Start: 06-07-2021 End: 06-07-2021 Emergency department patient visit LINETTE TAPIA [facility] Start: 06-07-2021 End: 06-07-2021 Emergency department patient visit Linette Tapia Work Phone: [facility] ED Comment on above: Acute upper respirat ory infection (Primary Dx) Start: 02-11-2021 End: 02-11-[address] TAMIKO CHRISTIANSEN Facility:[id number] Start: 06-08-2019 End: 06-13-2019 Evaluation and management of inpatient [facility] Start: 06-07-2019 End: 06-13-2019 Evaluation and management of inpatient Humberto Rojo Work Phone: [facility] Comment on above: Surgery, elective (P rimary Dx) Start: 06-07-2019 End: 06-07-2019 Emergency department patient visit Rodrick Galdamez [facility] ED Comment on above: Choledocholithiasis (Primary Dx) Start: 06-06-2019 End: 06-07-2019 Evaluation and management of inpatient Kailash Friedman Sue MTHZ [facility] Comment on above: Cholecystitis (Prima [...] DO Work Phone: Start: 06-07-2021 COVID-19, RAPID Urszula michelle Tapia DO Work Phone: Start: 06-13-2019 DISCHARGE PATIENT ARMAAN LEVI Start: 06-13-2019 INCENTIVE SPIROMETRY RT ARMAAN LEVI Start: 06-13-2019 INCENTIVE SPIROMETRY RT ARMAAN LEVI Start: 06-13-2019 PULSE OXIMETRY, CONTINUOUS ARMAAN BARTHON Start: 06-13-2019 INCENTIVE SPIROMETRY RT ARMAAN LEVI Start: 06-13-2019 INCENTIVE SPIROMETRY RT ARMAAN LEVI Start: 06-13-2019 INITIATE OXYGEN THER APY PROTOCOL ARMAAN LEVI Start: 06-13-2019 PULSE OXIMETRY, CONTINUOUS ARMAAN LEVI Start: 06-13-2019 DIET GENERAL ARMAAN KAPOOR Start: 06-13-2019 Assay of amylase ARMAAN LEVI Start: 06-13-2019 Assay of lipase ARMAAN DWYER Start: 06-13-2019 Assay of magnesium KATI LEVI Start: 06-13-2019 Blood count complete auto&auto difrntl wbc ARMAAN LEVI Start: 06-13-2019 Comprehensive metabo lic panel ARMAAN LEVI Start: 06-13-2019 INCENTIVE SPIROMETRY RT ARMAAN LEVI Start: 06-13-2019 Assay of amylase Abhishek Vanessa Work Phone: Start: 06-13-2019 Assay of lipase Abhishek Vanessa Work Phone: Start: 06-13-2019 Assay of magnesium Robe rt Vanessa Work Phone: Start: 06-13-2019 Blood count complete auto&auto difrntl wbc [facility] Work Phone: Start: 06-13-2019 Comprehensive metabo lic panel Abhishek Vanessa Work Phone: Start: 06-13-2019 PULSE OXIMETRY, CONTINUOUS ARMAAN LEVI Start: 06-13-2019 DAILY WEIGHTS ARMAAN MARTIN Start: 06-13-2019 INTAKE AND OUTPUT ARMAAN LEVI Start: 06-13-2019 PULSE OXIMETRY, CONTINUOUS ARMAAN LEVI Start: 06-13-2019 INCENTIVE SPIROMETRY RT ARMAAN LEVI Start: 06-12-2019 PULSE OXIMETRY, CONTINUOUS ARMAAN LEVI Start: 06-12-2019 ENCOURAGE DEEP BREAT VERONICA AND COUGHING ARMAAN LEVI Start: 06-12-2019 INCENTIVE SPIROMETRY RT ARMAAN LEVI Start: 06-12-2019 INITIATE OXYGEN THER APY PROTOCOL ARMAAN LEVI Start: 06-12-2019 PULSE OXIMETRY SPOT CHECK ARMAAN LEVI Start: 06-12-2019 WOUND CARE ARMAAN LANDAVERDEON Start: 06-12-2019 AMBULATE PATIENT ARMAAN LEVI Start: 06-12-2019 INTAKE AND OUTPUT ARMAAN LEVI Start: 06-12-2019 NOTIFY PHYSICIAN (SPECIFY) ARMAAN LEVI Start: 06-12-2019 VITAL SIGNS ARMAAN LANDAVERDEON Start: 06-12-2019 TRANSFER PATIENT ARMAAN LEVI Start: 06-12-2019 Level iv surg pathol ogy gross&microscopic exam ARMAAN LEVI Start: 06-12-2019 PULSE OXIMETRY, CONTINUOUS ARMAAN LEVI Start: 06-12-2019 End: 06-12-2019 Laparoscopy surg cholecystectomy Abhishek Vanessa Work Phone: Start: 06-12-2019 PULSE OXIMETRY, CONTINUOUS ARMAAN LEVI Start: 06-12-2019 Level iv surg pathol ogy gross&microscopic exam ARMAAN LEVI Start: 06-12-2019 INITIATE OXYGEN THER APY PROTOCOL ARMAAN LEVI Start: 06-12-2019 PULSE OXIMETRY, CONTINUOUS ARMAAN LEVI Start: 06-12-2019 Assay of magnesium KATI LEVI Start: 06-12-2019 Basic metabolic pane l calcium total ARMAAN LEVI Start: 06-12-2019 Blood count complete auto&auto difrntl wbc RAMAAN LEVI Start: 06-12-2019 PULSE OXIMETRY, CONTINUOUS ARMAAN LEVI Start: 06-12-2019 Assay of magnesium Wiss am Bleibel Work Phone: Start: 06-12-2019 Basic metabolic pane l calcium total Wissam Bleibel Work Phone: Start: 06-12-2019 Blood count complete auto&auto difrntl wbc Maciel Prajapati Work Phone: Start: 06-12-2019 INTAKE AND OUTPUT ARMAAN LEVI Start: 06-12-2019 PULSE OXIMETRY, CONTINUOUS ARMAAN AMITA Start: 06-11-2019 PULSE OXIMETRY, CONTINUOUS ARMAAN AMITA Start: 06-11-2019 Cmbn ndsc cathj biliary&pncrtc ductal sys rs&i ARMAAN BARTHON Start: 06-11-2019 FLUORO FOR SURGICAL PROCEDURES ARMAAN LEVI Start: 06-11-2019 TRANSFER PATIENT ARMAAN LEVI Start: 06-11-2019 PULSE OXIMETRY, CONTINUOUS ARMAAN BARTHON Start: 06-11-2019 Cmbn ndsc cathj biliary&pncrtc ductal sys rs&i Maciel Pettitibel Work Phone: Start: 06-11-2019 FLUORO FOR SURGICAL PROCEDURES Maciel Prajapati Work Phone: Start: 06-11-2019 End: 06-11-2019 Ercp dx collection specimen brushing/washing Maciel Prajapati Work Phone: Start: 06-11-2019 PULSE OXIMETRY, CONTINUOUS ARMAAN BARTHON Start: 06-11-2019 INITIATE OXYGEN THER APY PROTOCOL ARMAAN LEVI Start: 06-11-2019 PULSE OXIMETRY, CONTINUOUS ARMAAN BARTHON Start: 06-11-2019 Assay of amylase ARMAAN LEVI Start: 06-11-2019 Assay of lipase ARMAAN DWYER Start: 06-11-2019 Assay of magnesium KATI LEVI Start: 06-11-2019 Basic metabolic pane l calcium total ARMAAN LEVI Start: 06-11-2019 Blood count complete auto&auto difrntl wbc ARMAAN LEVI Start: 06-11-2019 Lipid panel ARMAAN LANDAVERDEON Start: 06-11-2019 PULSE OXIMETRY, CONTINUOUS ARMAAN SCHULERCHESON Start: 06-11-2019 Assay of amylase Kameron S Retholtz Work Phone: Start: 06-11-2019 Assay of lipase Kameron S Retholtz Work Phone: Start: 06-11-2019 Assay of magnesium Kameron S Retholtz Work Phone: Start: 06-11-2019 Basic metabolic pane l calcium total Kameron Ennis Work Phone: Start: 06-11-2019 Blood count complete auto&auto difrntl wbc Kameron Ennis Work Phone: Start: 06-11-2019 Lipid panel Kameron robins Work Phone: Start: 06-11-2019 ENDO PROCEDURE ARMAAN [...] 06-09-2019 INITIATE OXYGEN THER APY PROTOCOL ARMAAN LEVI Start: 06-09-2019 PULSE OXIMETRY, CONTINUOUS ARMAAN AMITA Start: 06-09-2019 Assay of amylase ARMAAN LEVI Start: 06-09-2019 Assay of lipase ARMAAN H SNEHAL Start: 06-09-2019 Assay of magnesium KATI LEVI Start: 06-09-2019 Assay of phosphorus inorganic ARMAAN LEVI Start: 06-09-2019 Assay of triglycerides ARMAAN LEVI Start: 06-09-2019 Blood count complete auto&auto difrntl wbc ARMAAN LEVI Start: 06-09-2019 Blood count complete automated ARMAAN LEVI Start: 06-09-2019 Calcium ionized ARMAAN DWYER Start: 06-09-2019 Prothrombin time ARMAAN LEVI Start: 06-09-2019 PULSE OXIMETRY, CONTINUOUS ARMAAN AMITA Start: 06-09-2019 Assay of amylase Joyce Reilly Calfee Work Phone: Start: 06-09-2019 Assay of lipase Joyce Jallohe Calfee Work Phone: Start: 06-09-2019 Assay of magnesium Angelo Reilly Calfee Work Phone: Start: 06-09-2019 Assay of phosphorus inorganic Joyce Melba Calfee Work Phone: Start: 06-09-2019 Assay of triglycerides Joyce Melba Calfee Work Phone: Start: 06-09-2019 Blood count complete auto&auto difrntl wbc Joyce Melba Calfee Work Phone: Start: 06-09-2019 Blood count complete automated Ojyce Melba Calfee Work Phone: Start: 06-09-2019 Calcium ionized Joyce Melba Calfee Work Phone: Start: 06-09-2019 Prothrombin time Joyce Melba Calfee Work Phone: Start: 06-09-2019 INTAKE AND OUTPUT [...] ARMAAN AMITA Start: 06-08-2019 CONTACT ISOLATION ARMAAN AMITA Start: 06-08-2019 PLACE INTERMITTENT PNEUMATIC COMPRESSION DEVICE ARMAAN BARTHON Start: 06-08-2019 PT EVAL AND TREAT ARMAAN AMITA Start: 06-08-2019 PULSE OXIMETRY SPOT CHECK ARMAAN AMITA Start: 06-08-2019 PULSE OXIMETRY, CONTINUOUS ARMAAN AMITA Start: 06-08-2019 TOBACCO CESSATION EDUCATION ARMAAN AMITA Start: 06-08-2019 VITAL SIGNS ARMAAN LANDAVERDEON Start: 06-08-2019 DAILY WEIGHTS ARMAAN MARTIN Start: 06-08-2019 FULL CODE ARMAAN LANDAVERDEON Start: 06-08-2019 INITIATE OXYGEN THER APY PROTOCOL ARMAAN AMITA Start: 06-08-2019 INTAKE AND OUTPUT ARMAAN AMITA Start: 06-08-2019 IP CONSULT TO GI ARMAAN AMITA Start: 06-08-2019 NOTIFY PHYSICIAN (SPECIFY) ARMAAN AMITA Start: 06-08-2019 OT EVAL AND TREAT ARMAAN AMITA Start: 06-08-2019 PULSE OXIMETRY SPOT CHECK Joyce Reilly Greyson Work Phone: Start: 06-07-2019 PATIENT STATUS (DIRECT) ARMAAN AMITA Start: 06-07-2019 Assay of lactate Armaan Barthon Work Phone: Start: 06-07-2019 Assay of lipase Armaan dwyer Work Phone: Start: 06-07-2019 Blood count complete automated Armaan Levi Work Phone: Start: 06-07-2019 Comprehensive metabo lic panel Armaan Levi Work Phone: Start: 06-07-2019 Us abdominal real ti me w/image limited Margarito Wuinesantana Work Phone: Start: 06-07-2019 Blood count complete auto&auto difrntl wbc Margarito P Jazmininen Work Phone: Start: 06-07-2019 Blood count complete automated Margarito P Jazmininen Work Phone: Start: 06-06-2019 PULSE OXIMETRY SPOT CHECK Margarito Wuinesantana Work Phone: Start: 06-06-2019 Assay of lactate Triductor Work Phone: Start: 06-06-2019 End: 06-06-2019 Culture bacterial blood aerobic w/id isolates Triductor Work Phone: Start: 06-06-2019 Ecg routine ecg w/le ast 12 lds w/i&r Robi A Retora Black Work Phone: Start: 06-06-2019 EKG REPORT Hpf Scanni ng Start: 06-06-2019 Ct abdomen & pelvis w/contrast material Kailash Rogers Start: 06-06-2019 Assay of lipase Kailash Rogers Start: 06-06-2019 Blood count complete auto&auto difrntl wbc Kailash Rogers Start: 06-06-2019 Comprehensive metabo lic panel Kailash Rogers Start: 06-06-2019 Prothrombin time Robi A Retora Black Work Phone: Start: 06-06-2019 Thromboplastin time partial plasma/whole blood Robi A Retora Black Work Phone: Start: 06-06-2019 Urnls dip stick/tabl et reagent auto microscopy Kailash Rogers Appendectomy with drainage R onobir CLARY Spinal arthrodesis Vickie CRUZ Comment on above: L4 to L5 Plan of Treatment Date Care Activity Detail Author Start: 09-06-2026 DTaP/Tdap/Td vaccine (2 - Td or Tdap) DTaP/Tdap/Td vaccine (2 - Td or Tdap) [facility] [employer] Phone: Start: 09-06-2026 DTaP/Tdap/Td vaccine (2 - Td) DTaP/Tdap/Td vaccine (2 - Td) [place] Start: 06-11-2024 Lipid panel Lipid screen [facility] Work Phone: Start: 06-09-2022 Creatinine measurement Creatinine mo [facility] [employer] Phone: Start: 06-09-2022 Potassium monitoring Potassium monit [facility] [employer] Phone: Start: 04-07-2021 Influenza vaccination Flu vaccine (# 1) [facility] [employer] Phone: Start: 06-13-2020 Potassium monitoring Potassium monit [facility] [employer] Phone: Start: 06-12-2020 Creatinine measurement Creatinine mo [facility] [employer] Phone: Start: 06-11-2020 Creatinine monitoring Creatinine mon [place], [place] Start: 06-11-2020 Potassium monitoring Potassium monit [place], [place] Start: 06-07-2020 Creatinine monitoring Creatinine mon [place] Start: 06-07-2020 Potassium monitoring Potassium monit [place] Start: 06-06-2020 Creatinine monitoring Creatinine [place], [place] Start: 06-06-2020 Potassium monitoring Potassium monit [place] Start: 04-07-2019 Influenza vaccination Flu vaccine (# 1) [place], [place] Start: 1996 HIV screen HIV screen [place], [place] Start: 1996 HIV screening HIV screen [facility] Work Phone: Start: 1994 Varicella Vaccine (1 of 2 - 13+ 2-dose series) Varicella Vaccine (1 of 2 - 13+ 2-dose series) [place], [place] Start: 1993 COVID-19 Vaccine (1) COVID-19 Vaccin e (1) [employer] Phone: Start: 1987 Pneumococcal 0-64 ye ars Vaccine (1 of 1 - PPSV23) Pneumococcal 0-64 years Vaccine (1 of 1 - PPSV23) [place] Start: 1987 Pneumococcal 0-64 ye ars Vaccine (1 of 2 - PPSV23) Pneumococcal 0-64 years Vaccine (1 of 2 - PPSV23) [facility] [employer] Phone: Start: 1982 Varicella vaccine (1 of 2 - 2-dose childhood series) Varicella vaccine (1 of 2 - 2-dose childhood series) [facility] [place] [place] EKG 12 Lead EKG 12 Lead ECG STAT 06/09/2021 5:11 AM EDT [facility] [employer] Phone: End: 06-06-2019 Hepatitis Panel, Acute Hepatitis Panel, Acute Lab Add-On One Time for 1 Occurrences starting 06/06/2019 until 06/06/2019 [place] Comment on above: One Time for 1 Occur rences starting 06/06/2019 until 06/06/2019 Hepatitis Panel, Acute Hepatitis Panel, Acute Lab Add-On 06/06/2019 6:50 PM EDT [place] Incentive spirometry Incentive s pirometry Respiratory Care Routine Every 2hr while awake until discontinued starting 06/12/2019 [place] Comment on above: Every 2hr while awak e until discontinued starting 06/12/2019 Initiate Oxygen Ther apy Protocol [place] Comment on above: Daily until disconti nued starting 06/06/2019 Daily until disconti nued starting 06/08/2019 Daily until disconti nued starting 06/12/2019 End: 06-12-2019 Pulse Oximetry Spot Check Pulse Oximetry Spot Check Respiratory Care Routine One Time for 1 Occurrences starting 06/12/2019 until 06/12/2019 [place] Comment on above: One Time for 1 Occur rences starting 06/12/2019 until 06/12/2019 Pulse oximetry, continuous Pulse oximetry, continuous Respiratory Care Routine Every 4hr until discontinued starting 06/08/2019 [place] Comment on above: Every 4hr until disc ontinued starting 06/08/2019 Surgical Pathology Surgical Path ology Lab Routine ONE TIME for 1 Occurrences starting 06/12/2019 [place] Comment on above: ONE TIME for 1 Occur rences starting 06/12/2019 End: 06-13-2019 Surgical Pathology Surgical Pathology Lab Routine Once for 1 Occurrences starting 06/13/2019 until 06/13/2019 [place] Comment on above: Once for 1 Occurrenc es starting 06/13/2019 until 06/13/2019 Immunizations Immunization Date Immunization Notes Care Provider Fa boris 09-06-2016 tetanus toxoid, redu sera diphtheria toxoid, and acellular pertussis vaccine, adsorbed Kailash Rogers [place], [place] Payers Date Payer Category Payer Self-pay 2023 Private Health Insurance [id number] 2021 Private Health Insurance [id number] 2018 Unknown [employer] [address] xxxxxxxxxxxx 2018-Present [phone] [address] [place] [address] xxxxxxxxxxxx [id number] 2018 Unknown [id number] 1981 Unknown [id number] 1981 Unknown [id number] 1981 Unknown [id number] 1981 Unknown [id number] 1981 Unknown [id number] 1981 Unknown [id number] 1981 Unknown [id number] 1981 Unknown [id number] 1981 Unknown [id number] 1981 Unknown [id number] 1981 Unknown [id number] Social History Date Type Detail Facility Start: 06-06-2019 End: 06-09-2021 Tobacco smoking status NHIS Current every day smoker [place], [place] History of tobacco use Cigarette Smoker [place] Start: 06-06-2019 End: 06-09-2021 Cigarettes smoked current (pack per day) - Reported [place] Start: 06-06-2019 End: 06-13-2019 Alcohol intake Yes [facility] Start: 04-25-2013 Alcohol Comment very rarely [place] Start: 1980 Sex Assigned At Not on file [place], [place] Start: 07-01-2019 End: 06-09-2021 Tobacco use and exposure Never used [facility] Start: 07-01-2019 End: 06-09-2021 Alcohol intake Current drinker of alcohol (finding) [facility] [employer] 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 Ster Pk/[id number] Start: 06-12-2019 Functional Status Date Assessment Result Facility 04-09-2024 Functional Status N/A [facility] 04-04-2024 Functional Status N/A [facility] 10-21-2023 Functional Status No [facility] 10-21-2023 Functional Status [facility] Clinical Notes 06-07-2021 to 04-09-2024 Note Date & Type Note Facility 04-09-2024 Hospital Discharg e instructions Patient Education 04/09/2024 15:53:35 Cervical Radiculopathy, [id number] Cervical Radiculopathy Cervical radiculopathy means that a nerve in the neck (a cervical nerve) is pinched or bruised. This can happen because of an injury to the cervical spine (vertebrae) in the neck, or as a normal part of getting older. This condition can cause pain or loss of feeling (numbness) that runs from your neck all the way down to your arm and fingers. Often, this condition gets better with rest. Treatment may be needed if the condition does not get better. What are the causes? A neck injury. A bulging disk in your spine. Sudden muscle tightening (muscle spasms). Tight muscles in your neck due to overuse. Arthritis. Breakdown in the bones and joints of the spine (spondylosis) due to getting older. Bone spurs that form near the nerves in the neck. What are the signs or symptoms? Pain. The pain may: ?Run from the neck to the arm and hand. ?Be very bad or irritating. ?Get worse when you move your neck. Loss of feeling or tingling in your arm or hand. Weakness in your arm or hand, in very bad cases. How is this treated? In many cases, treatment is not needed for this condition. With rest, the condition often gets better over time. If treatment is needed, options may include: Wearing a soft neck collar (cervical collar) for short periods of time. Doing exercises (physical therapy) to strengthen your neck muscles. Taking medicines. Having shots (injections) in your spine, in very bad cases. Having surgery. This may be needed if other treatments do not help. The type of surgery that is used will depend on the cause of your condition. Follow these instructions at home: If you have a soft neck collar: Wear it as told by your doctor. Take it off only as told by your doctor. Ask your doctor if you can take the collar off for cleaning and bathing. If you are allowed to take the collar off for cleaning or bathing: ?Follow instructions from your doctor about how to take off the collar safely. ?Clean the collar by wiping it with mild soap and water and drying it completely. ?Take out any removable pads in the collar every 1 2 days. Wash them by hand with soap and water. Let them air-dry completely before you put them back in the collar. ?Check your skin under the collar for redness or sores. If you see any, tell your doctor. Managing pain Take [id number] and prescription medicines only as told by your doctor. If told, put ice on the painful area. To do this: ?If you have a soft neck collar, take if off as told by your doctor. ?Put ice in a plastic bag. ?Place a towel between your skin and the bag. ?Leave the ice on for 20 minutes, 2 3 times a day. ?Take off the ice if your skin turns bright red. This is very important. If you cannot feel pain, heat, or cold, you have a greater risk of damage to the area. If using ice does not help, you can try using heat. Use the heat source that your doctor recommends, such as a moist heat pack or a heating pad. ?Place a towel between your skin and the heat source. ?Leave the heat on for 20 30 minutes. ?Take off the heat if your skin turns bright red. This is very important. If you cannot feel pain, heat, or cold, you have a greater risk of getting burned. You may try a gentle neck and shoulder rub (massage). Activity Rest as needed. Return to your normal activities when your doctor says that it is safe. Do exercises as told by your doctor or physical therapist. You may have to avoid lifting. Ask your doctor how much you can safely lift. General instructions Use a flat pillow when you sleep. Do not drive while wearing a soft neck collar. If you do not have a soft neck collar, ask your doctor if it is safe to drive while your neck heals. Ask your doctor if you should avoid driving or using machines while you are taking your medicine. Do not smoke or use any products that contain nicotine or tobacco. If you need help quitting, ask your doctor. Keep all follow-up visits. Contact a doctor if: Your condition does not get better with treatment. Get help right away if: Your pain gets worse and medicine does not help. You lose feeling or feel weak in your hand, arm, face, or leg. You have a high fever. Your neck is stiff. You cannot control when you poop or pee (have incontinence). You have trouble with walking, balance, or talking. Summary Cervical radiculopathy means that a nerve in the neck is pinched or bruised. A nerve can get pinched from a bulging disk, arthritis, an injury to the neck, or other causes. Symptoms include pain, tingling, or loss of feeling that goes from the neck to the arm or hand. Weakness in your arm or hand can happen in very bad cases. Treatment may include resting, wearing a soft neck collar, and doing exercises. You might need to take medicines for pain. In very bad cases, shots or surgery may be needed. This information is not intended to replace advice given to you by your health care provider. Make sure you discuss any questions you have with your health care provider. Document Revised: 01/27/2022 Document Reviewed: 01/27/2022 [employer] Patient Education 2023 [employer]. Follow Up Care 04/09/2024 12:51:33 With:Anuradha De La Vega Address: [address], [address] [address]- Business (1) When:04/12/2024 15:53:06 Comments:Call to schedule a follow-up appointment with the family physician for further management of care. Use the Percocet as needed for pain management. Take the prednisone as prescribed. Return to the ED with any worsening symptoms. [facility] 04-09-2024 Note ED Patient Education Note Orthopedics Cervical Radiculopathy Cervical radiculopathy means that a nerve in the neck (a cervical nerve) is pinched or bruised. This can happen because of an injury to the cervical spine (vertebrae) in the neck, or as a normal part of getting older. This condition can cause pain or loss of feeling (numbness) that runs from your neck all the way down to your arm and fingers. Often, this condition gets better with rest. Treatment may be needed if the condition does not get better. What are the causes? ? A neck injury. ? A bulging disk in your spine. ? Sudden muscle tightening (muscle spasms). ? Tight muscles in your neck due to overuse. ? Arthritis. ? Breakdown in the bones and joints of the spine (spondylosis) due to getting older. ? Bone spurs that form near the nerves in the neck. What are the signs or symptoms? ? Pain. The pain may: ? Run from the neck to the arm and hand. ? Be very bad or irritating. ? Get worse when you move your neck. ? Loss of feeling or tingling in your arm or hand. ? Weakness in your arm or hand, in very bad cases. How is this treated? In many cases, treatment is not needed for this condition. With rest, the condition often gets better over time. If treatment is needed, options may include: ? Wearing a soft neck collar (cervical collar) for short periods of time. ? Doing exercises (physical therapy) to strengthen your neck muscles. ? Taking medicines. ? Having shots (injections) in your spine, in very bad cases. ? Having surgery. This may be needed if other treatments do not help. The type of surgery that is used will depend on the cause of your condition. Follow these instructions at home: If you have a soft neck collar: ? Wear it as told by your doctor. Take it off only as told by your doctor. ? Ask your doctor if you can take the collar off for cleaning and bathing. If you are allowed to take the collar off for cleaning or bathing: ? Follow instructions from your doctor about how to take off the collar safely. ? Clean the collar by wiping it with mild soap and water and drying it completely. ? Take out any removable pads in the collar every 1?2 days. Wash them by hand with soap and water. Let them air-dry completely before you put them back in the collar. ? Check your skin under the collar for redness or sores. If you see any, tell your doctor. Managing pain ? Take [id number] and prescription medicines only as told by your doctor. ? If told, put ice on the painful area. To do this: ? If you have a soft neck collar, take if off as told by your doctor. ? Put ice in a plastic bag. ? Place a towel between your skin and the bag. ? Leave the ice on for 20 minutes, 2?3 times a day. ? Take off the ice if your skin turns bright red. This is very important. If you cannot feel pain, heat, or cold, you have a greater risk of damage to the area. ? If using ice does not help, you can try using heat. Use the heat source that your doctor recommends, such as a moist heat pack or a heating pad. ? Place a towel between your skin and the heat source. ? Leave the heat on for 20?30 minutes. ? Take off the heat if your skin turns bright red. This is very important. If you cannot feel pain, heat, or cold, you have a greater risk of getting burned. ? You may try a gentle neck and shoulder rub (massage). Activity ? Rest as needed. ? Return to your normal activities when your doctor says that it is safe. ? Do exercises as told by your doctor or physical therapist. ? You may have to avoid lifting. Ask your doctor how much you can safely lift. General instructions ? Use a flat pillow when you sleep. ? Do not drive while wearing a soft neck collar. If you do not have a soft neck collar, ask your doctor if it is safe to drive while your neck heals. ? Ask your doctor if you should avoid driving or using machines while you are taking your medicine. ? Do not smoke or use any products that contain nicotine or tobacco. If you need help quitting, ask your doctor. ? Keep all follow-up visits. Contact a doctor if: ? Your condition does not get better with treatment. Get help right away if: ? Your pain gets worse and medicine does not help. ? You lose feeling or feel weak in your hand, arm, face, or leg. ? You have a high fever. ? Your neck is stiff. ? You cannot control when you poop or pee (have incontinence). ? You have trouble with walking, balance, or talking. Summary ? Cervical radiculopathy means that a nerve in the neck is pinched or bruised. ? A nerve can get pinched from a bulging disk, arthritis, an injury to the neck, or other causes. ? Symptoms include pain, tingling, or loss of feeling that goes from the neck to the arm or hand. ? Weakness in your arm or hand can happen in very bad cases. ? Treatment may include resti (more content not included)... [facility] 04-04-2024 Hospital Discharg e instructions Patient Education 04/04/2024 14:43:01 Radial Nerve Palsy Radial Nerve Palsy Radial nerve palsy is the loss of function of the radial nerve in your arm or hand. The radial nerve goes from your shoulder, around the back of your upper arm, and down the outside of your lower arm. An injury to this nerve causes certain muscles and tendons in your arm and wrist not to work properly, which leads to a condition known as wrist drop. This means that you cannot extend your wrist. If you are standing with your arm stretched straight out in front of you, your wrist will bend and your hand will drop down toward the floor. An injury to the radial nerve may also result in a loss of feeling in parts of your arm. It may take several months for this injury to heal. What are the causes? Common causes of this condition include: A break (fracture) of your upper or lower arm bone. Problems from surgery. Improper use of crutches. Crutches that are too long can put pressure on the radial nerve where it passes through the armpit (crutch palsy). Keeping your arm in a position that places pressure on the radial nerve for a long time, such as by sleeping with arms over the back of a chair (Monday night palsy). Doing activities that involve repeated rotation of your lower arm or movement of your wrist (repetitive use injury). What increases the risk? You are more likely to develop this condition if you: Play contact sports. Have a condition in which your body's immune system attacks your joints (rheumatoid arthritis). Have diabetes. Have an underactive thyroid (hypothyroidism). What are the signs or symptoms? Symptoms of this condition include: Not being able to extend your wrist. Trouble straightening your elbow and wrist. Numbness or tingling in the back of your arm, forearm, or hand. Not being able to pinch. Muscles in the injured arm looking smaller. How is this diagnosed? This condition is diagnosed based on a physical exam and the history of your injury. You may also have tests, including: Ultrasound. This test shows if the nerve has an injury. Nerve conduction studies. These tests show if the radial nerve is sending electrical signals well. X-rays. These may be done if your health care provider thinks that you may have an injury to the bones in your arm. MRI. This may be used to determine the cause of your radial nerve palsy or to rule out other causes of your symptoms. How is this treated? Treatment for this condition depends on the cause. It may involve: Medicines. ?NSAIDs, such as ibuprofen, may be used to control pain. ?A steroid injection may be used to decrease swelling around the nerve. Physical and occupational therapy. This may include: ?Doing exercises to improve movement and strength in your hand, wrist, and elbow. ?Therapy to help you do everyday activities. Splinting. Your provider may give you one or more splints to wear during the day or at night to help with movement and positioning of your wrist. Removing pressure on the radial nerve. This is done if the condition is caused by pressure on the nerve. Using this treatment may allow the nerve to go back to normal within a few weeks or a few months. Surgery. Depending on the cause of your radial nerve palsy, surgery may be needed to: ?Remove pressure on the nerve (entrapment). ?Repair broken bones. ?Move (transfer) tendons in your lower arm to help you regain strength and movement of your wrist. ?Transfer a nerve to the injury site to restore nerve function. Follow these instructions at home: If you have a splint or brace: Wear the splint or brace as told by your provider. Remove it only as told by your provider. Check the skin around the splint or brace every day. Tell your provider about any concerns. Loosen the splint or brace if your fingers tingle, become numb, or turn cold and blue. Keep the splint or brace clean. If the splint or brace is not waterproof: ?Do not let it get wet. ?Cover it with a watertight covering when you take a bath or shower. Managing pain, stiffness, and swelling If told, put ice on the injured area. ?If you have a removable splint or brace, remove it as told by your provider. ?Put ice in a plastic bag. ?Place a towel between your skin and the bag. ?Leave the ice on for 20 minutes, 2 3 times a day. ?If your skin turns bright red, remove the ice right away to prevent skin damage. The risk of damage is higher if you cannot feel pain, heat, or cold. Move your fingers often to reduce stiffness and swelling. Raise (elevate) the injured area above the level of your heart while you are sitting or lying down. General instructions Take bdny-olw-wzcfeyp and prescription medicines only as told by your provider. Follow instructions about how to protect your hand and wrist. Protect your hand from extreme temperature injuries, such as morel and frostbite. Exercise your hand, wrist, and arm on a regular basis, as told. Contact a health care provider if: You have a sudden increase in pain. You have new numbness or new loss of sensation in your hand. You have a sudden change in your ability to move your arm, wrist, or hand. Get help right away if: Your fingers turn blue or cold. This information is not intended to replace advice given to you by your health care provider. Make sure you discuss any questions you have with your health care provider. Document Revised: 03/29/2023 Document Reviewed: 03/29/2023 [employer] Patient Education 2023 [employer]. 04/04/2024 14:43:01 Ganglion Cyst Ganglion Cyst A ganglion cyst is a non-cancerous, fluid-filled lump of tissue that occurs near a joint, tendon, or ligament. The cyst grows out of a joint or the lining of a tendon or ligament. Ganglion cysts most often develop in the hand or wrist, but they can also develop in the shoulder, elbow, hip, knee, ankle, or foot. Ganglion cysts are ball-shaped or egg-shaped. Their size can range from the size of a pea to larger than a grape. Increased activity may cause the cyst to get bigger because more fluid starts to build up. What are the causes? The exact cause of this condition is not known, but it may be related to: Inflammation or irritation around the joint. An injury or tear in the layers of tissue around the joint (joint capsule). Repetitive movements or overuse. History of acute or repeated injury. What increases the risk? You are more likely to develop this condition if: You are a female. You are 20 40 years old. What are the signs or symptoms? The main symptom of this condition is a lump. It most often appears on the hand or wrist. In many cases, there are no other symptoms, but a cyst can sometimes cause: Tingling. Pain or tenderness. Numbness. Weakness or loss of strength in the affected joint. Decreased range of motion in the affected area of the body. How is this diagnosed? Ganglion cysts are usually diagnosed based on a physical exam. Your health care provider will feel the lump and may shine a light next to it. If it is a ganglion cyst, the light will likely shine through it. Your health care provider may order an X-ray, ultrasound, MRI, or CT scan to rule out other conditions. How is this treated? Ganglion cysts often go away on their own without treatment. If you have pain or other symptoms, treatment may be needed. Treatment is also needed if the ganglion cyst limits your movement or if it gets infected. Treatment may include: Wearing a brace or splint on your wrist or finger. Taking anti-inflammatory medicine. Having fluid drained from the lump with a needle (aspiration). Getting an injection of medicine into the joint to decrease inflammation. This may be corticosteroids, ethanol, or hyaluronidase. Having surgery to remove the ganglion cyst. Placing a pad in your shoe or wearing shoes that will not rub against the cyst if it is on your foot. Follow these instructions at home: Do not press on the ganglion cyst, poke it with a needle, or hit it. Take gzrp-pqp-kgtabdo and prescription medicines only as told by your health care provider. If you have a brace or splint: ?Wear it as told by your health care provider. ?Remove it as told by your health care provider. Ask if you need to remove it when you take a shower or a bath. Watch your ganglion cyst for any changes. Keep all follow-up visits as told by your health care provider. This is important. Contact a health care provider if: Your ganglion cyst becomes larger or more painful. You have pus coming from the lump. You have weakness or numbness in the affected area. You have a fever or chills. Get help right away if: You have a fever and have any of these in the cyst area: ?Increased redness. ?Red streaks. ?Swelling. Summary A ganglion cyst is a non-cancerous, fluid-filled lump that occurs near a joint, tendon, or ligament. Ganglion cysts most often develop in the hand or wrist, but they can also develop in the shoulder, elbow, hip, knee, ankle, or foot. Ganglion cysts often go away on their own without treatment. This information is not intended to replace advice given to you by your health care provider. Make sure you discuss any questions you have with your health care provider. Document Revised: 10/14/2020 Document Reviewed: 10/14/2020 [employer] Patient Education 2023 [employer]. Follow Up Care 04/04/2024 12:19:08 With:Peter Gastelum Address: [address] [place] [address] [place] [address]- Business (1) When:04/07/2024 14:28:50 [facility] 04-04-2024 Note ED Patient Education Note Radial Nerve Palsy Radial nerve palsy is the loss of function of the radial nerve in your arm or hand. The radial nerve goes from your shoulder, around the back of your upper arm, and down the outside of your lower arm. An injury to this nerve causes certain muscles and tendons in your arm and wrist not to work properly, which leads to a condition known as wrist drop. This means that you cannot extend your wrist. If you are standing with your arm stretched straight out in front of you, your wrist will bend and your hand will drop down toward the floor. An injury to the radial nerve may also result in a loss of feeling in parts of your arm. It may take several months for this injury to heal. What are the causes? Common causes of this condition include: ? A break (fracture) of your upper or lower arm bone. ? Problems from surgery. ? Improper use of crutches. Crutches that are too long can put pressure on the radial nerve where it passes through the armpit (crutch palsy). ? Keeping your arm in a position that places pressure on the radial nerve for a long time, such as by sleeping with arms over the back of a chair (Monday night palsy). ? Doing activities that involve repeated rotation of your lower arm or movement of your wrist (repetitive use injury). What increases the risk? You are more likely to develop this condition if you: ? Play contact sports. ? Have a condition in which your body's immune system attacks your joints (rheumatoid arthritis). ? Have diabetes. ? Have an underactive thyroid (hypothyroidism). What are the signs or symptoms? Symptoms of this condition include: ? Not being able to extend your wrist. ? Trouble straightening your elbow and wrist. ? Numbness or tingling in the back of your arm, forearm, or hand. ? Not being able to pinch. ? Muscles in the injured arm looking smaller. How is this diagnosed? This condition is diagnosed based on a physical exam and the history of your injury. You may also have tests, including: ? Ultrasound. This test shows if the nerve has an injury. ? Nerve conduction studies. These tests show if the radial nerve is sending electrical signals well. ? X-rays. These may be done if your health care provider thinks that you may have an injury to the bones in your arm. ? MRI. This may be used to determine the cause of your radial nerve palsy or to rule out other causes of your symptoms. How is this treated? Treatment for this condition depends on the cause. It may involve: ? Medicines. ? NSAIDs, such as ibuprofen, may be used to control pain. ? A steroid injection may be used to decrease swelling around the nerve. ? Physical and occupational therapy. This may include: ? Doing exercises to improve movement and strength in your hand, wrist, and elbow. ? Therapy to help you do everyday activities. ? Splinting. Your provider may give you one or more splints to wear during the day or at night to help with movement and positioning of your wrist. ? Removing pressure on the radial nerve. This is done if the condition is caused by pressure on the nerve. Using this treatment may allow the nerve to go back to normal within a few weeks or a few months. ? Surgery. Depending on the cause of your radial nerve palsy, surgery may be needed to: ? Remove pressure on the nerve (entrapment). ? Repair broken bones. ? Move (transfer) tendons in your lower arm to help you regain strength and movement of your wrist. ? Transfer a nerve to the injury site to restore nerve function. Follow these instructions at home: If you have a splint or brace: ? Wear the splint or brace as told by your provider. Remove it only as told by your provider. ? Check the skin around the splint or brace every day. Tell your provider about any concerns. ? Loosen the splint or brace if your fingers tingle, become numb, or turn cold and blue. ? Keep the splint or brace clean. ? If the splint or brace is not waterproof: ? Do not let it get wet. ? Cover it with a watertight covering when you take a bath or shower. Managing pain, stiffness, and swelling ? If told, put ice on the injured area. ? If you have a removable splint or brace, remove it as told by your provider. ? Put ice in a plastic bag. ? Place a towel between your skin and the bag. ? Leave the ice on for 20 minutes, 2?3 times a day. ? If your skin turns bright red, remove the ice right away to prevent skin damage. The risk of damage is higher if you cannot feel pain, heat, or cold. ? Move your fingers often to reduce stiffness and swelling. ? Raise (elevate) the injured area above the level of your heart while you are sitting or lying down. General instructions ? Take zeje-irb-suheado and prescription medicines only as told by your provider. ? Follow instructions about how to protect your hand and wrist. ? Protect your hand fro (more content not included)... [facility] 04-04-2024 Evaluation + Plan note Extrac caitlyn from: Title:ED Note Author:Nury RUSHING, Reza Simental te:04/04/24 Ganglion cyst of wrist (M67. 439: Ganglion, unspecified wrist) Orders: methocarbamol, 1,500 mg = 2 tab(s), Oral, TID, X 3 day(s), # 18 tab(s), Refills(s) 0, Pharmacy: [facility]/pharmacy #[id number], 177.1, cm, 04/04/24 12:32:00 EDT, Height/Length Dosing, 124.7, kg, 04/04/24 12:32:00 EDT, Weight Dosing naproxen, 500 mg = 1 tab(s), Oral, BID, PRN for pain, # 20 tab(s), Refills(s) 0, Pharmacy: [facility]/pharmacy #[id number], 177.1, cm, 04/04/24 12:32:00 EDT, Height/Length Dosing, 124.7, kg, 04/04/24 12:32:00 EDT, Weight Dosing Splint Application Wrist [facility] 03-24-2024 NoteMicrobiology PROCEDURE: Blood Culture Charcoal [R1] SOURCE: Blood BODY SITE: Arm L COLLECTED DATE/TIME: 10/21/2023 19:32 EDT RECEIVED DATE/TIME: 10/21/2023 22:32 EDT START DATE/TIME: 10/21/2023 22:32 EDT FREE TEXT SOURCE: Peripheral vein site #2 Martha DO, Sean S. Martha DO, Sean S. FINAL REPORTS Final Report [] Verified Date/Time: 10/29/2023 07:01 EDT No growth at 7 days. Performing Locations R1: This test was performed at: [facility], [address] [place] [address], [address] [place] [address], VosadvKing[facility] [place]Comment on above:Performed By: #### [id number] ####[facility] [address] [place], [place] [phone] NoteMicrobiology PROCEDURE: Blood Culture Charcoal [R1] SOURCE: Blood BODY SITE: Hand L COLLECTED DATE/TIME: 10/21/2023 20:37 EDT RECEIVED DATE/TIME: 10/21/2023 22:31 EDT START DATE/TIME: 10/21/2023 22:31 EDT FREE TEXT SOURCE: Peripheral vein site #1 Martha DO, Sean S. Martha DO, Sean S. FINAL REPORTS Final Report [] Verified Date/Time: 10/29/2023 07:00 EDT No growth at 7 days. Performing Locations R1: [facility] performed at: [facility], [address] [place] [address], [id number] [place] [address], KqhbzgKing'S Daughters Medical Center OhioComment on above:Performed By: #### [id number] #### [facility] [address], [place] [phone] NoteEchocardiology Procedure Exam Date/Time Accession # Ordering Echo Transthoracic w/ 10/23/2023 09:26 EDT [id number] Houston PAN MD Contrast CPT code 35106 [id number] Reason for Exam (Echo Transthoracic w/ Contrast) Hypertension Report [facility] [address] [place] [address] Adult Echocardiogram Report Name: DEVON MATHEW Study Date: 10/23/2023 07:07 AM BP: 135/84 mmHg Patient Location: ^[facility]^[address] [place] [address] HR: 86 : 1980 Gender: Male Height: 70 in Age: 43 yrs Ethnicity: [facility] Weight: 248 lb Reason For Study: Hypertension BSA: 2.3 m2 History: HTN, DM, Smoker Ordering Physician: Houston PAN Referring Physician: Jesus Carias Performed By: Avis Kuo [facility] Interpretation Summary No comparison study is available. The left ventricle is mild to moderate dilated. Ejection Fraction = 45-50%. There is mild to moderate global hypokinesis of the left ventricle. Grade I diastolic dysfunction, (abnormal relaxation pattern). The left atrium is mildly dilated. There is Trace mitral regurgitation. There was insufficient TR detected to calculate RV systolic pressure. Procedure A complete two-dimensional transthoracic echocardiogram was performed (2D, M- mode, spectral and color flow Doppler). Study quality is fair. A contrast injection with Definity was performed to improve assessment of LV function. Left Ventricle The left ventricle is mild to moderate dilated. Ejection Fraction = 45-50%. There is mild to moderate global hypokinesis of the left ventricle. Grade I diastolic dysfunction, (abnormal relaxation pattern). Left Atrium The left atrium is mildly dilated. Right Atrium Echocardiology Report Right atrial size is normal. Right Ventricle The right ventricular systolic function is normal. Aortic Valve The aortic valve is trileaflet. Mitral Valve Mitral valve structure is normal. There is Trace mitral regurgitation. Tricuspid Valve Structurally normal tricuspid valve. There was insufficient TR detected to calculate RV systolic pressure. Pulmonic Valve The pulmonic valve is normal. Arteries The aortic root is normal in size. Venous The inferior vena cava is normal in size, and collapses normally with respiration. Effusion There is no pericardial effusion. MMode/2D Measurements & Calculations IVSd: 1.2 cm LVIDd: 5.8 cm FS: 27.2 % Ao root diam: 3.1 cm LVIDs: 4.3 cm EDV(Teich): 169.2 ml Ao root area: 7.5 cm2 LVPWd: 1.3 cm ESV(Teich): 80.8 ml LA dimension: 4.4 cm EF(Teich): 52.2 % asc Aorta Diam: 3.3 cm LVOT diam: 2.6 cm EDV(MOD-sp4): 177.0 ml EDV(MOD-sp2): 207.0 ml LVOT area: 5.3 cm2 ESV(MOD-sp4): 118.0 ml ESV(MOD-sp2): 98.4 ml EF(MOD-sp4): 33.3 % EF(MOD-sp2): 52.5 % SV(MOD-sp4): 59.0 ml LAV(MOD-sp2): 45.4 ml IVC Diam: 1.6 cm LAV(MOD-sp4): 56.1 ml Doppler Measurements & Calculations MV E max carlos: 66.4 cm/sec Ao V2 max: 69.5 cm/sec LV V1 max P.0 mmHg TR max P.0 mmHg MV A max carlos: 94.7 cm/sec CHAYO(V,D): 6.3 cm2 LV V1 max: 82.6 cm/sec RVSP(TR): 17.0 mmHg MV E/A: 0.70 Med Peak E' Carlos: 6.7 cm/sec E/E' Med: 9.9 RAP systole: 3.0 mmHg Pediatric Measurements & Calculations Ao sinus diam: 3.4 cm Echocardiology Report FINAL REPORT Dictated: 10/23/2023 7:07 am Houston PAN MD Signed (Electronic Signature): 10/23/2023 3:54 pm Signed by: Houston PAN MD Transcribed by: DOMENICO Technologist: [facility]03-18-2024 Evaluation + Plan noteExtracted from: Title:Discharge Note Author:BEAR POWELL, Daron Jude e:10/23/23 stable Discharge To, Anticipated II - Home with responsible caregiver Discharged to - Home independently Home Discharge Diet(s): Low Sodium- 2000 mg (10/23/23 10:52:00) Prescriptions doxycycline hyclate 100 mg Cap, 100 mg= 1 cap(s), Oral, BID hydrochlorothiazide-losartan 12.5 mg-100 mg oral tablet, 1 tab(s), Oral, Daily Lipitor 40 mg Tab, 40 mg= 1 tab(s), Oral, Bedtime, 1 refills metformin 500 mg Tab, 500 mg= 1 tab(s), Oral, BID Home amLODIPine 10 mg Tab, 10 mg= 1 tab(s), Oral, Daily aspirin 81 mg Oral EC Tab, 81 mg= 1 tab(s), Oral, Daily Metoprolol tartrate 50 mg Tab, 50 mg= 1 tab(s), Oral, BID NIFEdipine 90 mg ER Tab, 90 mg= 1 tab(s), Oral, Daily With When Contact Information MENDY COOK [address], [address] [place] [address]- Business (1) Additional Instructions: HATTIE HARMANTATE In 0 days [address] [place] [address] [phone] Business (1) Additional Instructions: Obesity, Adult Managing Your Hypertension Discharge time >30 min Extracted from: Title:Progress/SOAP Note Author:MAXIM POWELL, Tam Osullivan Date:10/23/23 1. Elevated troponin (R79.89 : Other specified abnormal findings of blood chemistry) Patient minimally elevated troponin superimposed on significant elevation of blood sugar, no chest pain or anginal symptoms or EKG changes. Patient will undergo a 2D echo with Doppler today, as well as a stress echocardiogram. If these are normal, the patient may be discharged home and follow-up with cardiology as an outpatient. Would recommend aggressive LDL reduction given his history of diabetes. Recommend starting Lipitor 40 mg p.o. nightly and repeat lipid profile in 6 weeks time. His LDL should be less than 100 and preferably less than 70. 2. Cough (R05.9: Cough, unspecified) 3. Abscess (L02.91: Cutaneous abscess, unspecified) 4. Leukocytosis (D72.829: Elevated white blood cell count, unspecified) 5. Hyperglycemia (R73.9: Hyperglycemia, unspecified) 6. Hyponatremia (E87.1: Hypo-osmolality and hyponatremia) 7. Diabetes mellitus, type 2 (E11.9: Type 2 diabetes mellitus without complications) 8. HTN (hypertension) (I10: Essential (primary) hypertension) 9. Obese (E66.9: Obesity, unspecified) 10. Tobacco use (Z72.0: Tobacco use) 11. On deep vein thrombosis (DVT) prophylaxis (Z79.899: Other penitentiary (current) drug therapy) Elevated blood pressure reading (R03.0: Elevated blood-pressure reading, without diagnosis of hypertension) Pneumonia (J18.9: Pneumonia, unspecified organism) Sepsis (A41.9: Sepsis, unspecified organism) Orders: hydrochlorothiazide, 12.5 mg = 1 tab(s), Tab, Oral, Daily, Routine, Start date 10/22/23 9:00:00 EDT, First dose now, 10/22/23 8:49:00 EDT losartan, 50 mg = 1 tab(s), Tab, Oral, Daily, Routine, Start date 10/22/23 9:00:00 EDT, First dose now, 10/22/23 8:49:00 EDT EC Stress Echo Complete w/ Contrast Echo Transthoracic Complete Lipid Panel Extracted from: Title:APSO Note Author:ALEA POWELL, Mbanefo Date: 43-year-old male with histor y of hypertension, with recent shortness of breath and was treated with oral prednisone and Lasix presented with complaints of generalized weakness, bowels, elevated blood sugar and was admitted with elevated troponin, left axilla and scapular nondraining abscess, leukocytosis, hyponatremia secondary to hyperglycemia secondary to new onset diabetes mellitus and uncontrolled hypertension. 1. Elevated troponin (R79.89: Other specified abnormal findings of blood chemistry) Elevated troponin secondary to type II non-ST segment elevation myocardial infarction from demand ischemia. Cardiology consult reviewed by me. I appreciate and agree with recommendations. Patient will undergo echocardiogram and depending on echocardiogram may undergo stress test left heart catheterization. Meanwhile patient was started on aspirin. Check fasting lipid profile and start Lipitor appropriately. Ordered: [facility] Care/Day Moderate 35 Minutes 38965 2. Cough (R05.9: Cough, unspecified) Supportive care. Continue on Tessalon Perles as needed and nebulizer treatments. Ordered: [facility] Care/Day Moderate 35 Minutes 72142 3. Abscess (L02.91: Cutaneous abscess, unspecified) Left axilla and left scapula nondraining abscess. Start patient on doxycycline. Ordered: [facility] Care/Day Moderate 35 Minutes 17929 White Blood Count 4. Leukocytosis (D72.829: Elevated white blood cell count, unspecified) Secondary to above abscess. WBC trending down. Ordered: [facility] Care/Day Moderate 35 Minutes 78180 White Blood Count 5. Hyperglycemia (R73.9: Hyperglycemia, unspecified) Secondary to new onset diabetes mellitus. Started patient on sliding scale insulin. Hemoglobin A1c pending. Ordered: [facility] Care/Day Moderate 35 Minutes [id number] 6. Hyponatremia (E87.1: Hypo-osmolality and hyponatremia) Secondary to hyperglycemia. Improving. Sodium level 131 7. Diabetes mellitus, type 2 (E11.9: Type 2 diabetes mellitus without complications) New onset diabetes mellitus. Fasting glucose 364. Started patient on sliding scale insulin. Patient already has prescriptions for metformin as outpatient. Hemoglobin A1c pending. 8. HTN (hypertension) (I10: Essential (primary) hypertension) Blood pressure uncontrolled. Continue on metoprolol, nifedipine. Seen by nursing home manager and hydrochlorothiazide and losartan were added. 9. Obese (E66.9: Obesity, unspecified) Recommend therapeutic lifestyle modification changes. 10. Tobacco use (Z72.0: Tobacco use) Recommend cessation. Continue nicotine patch. 11. 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 Disposition: Hopefully home in a.m. pending echocardiogram result May require stress test or cardiac cath. I discussed the diagnosis and plan of care with the patient at the bedside. Moderate level of MDM based on addressing above issues. This documentation was transcribed using voice recognition software. Several attempts were made to ensure accuracy. However inadvertent computerized ed special education teacher errors may be present. Delia Ortiz. Hospitalist. Orders: doxycycline, 100 mg = 1 cap(s), Cap, Oral, BID, Start date 10/22/23 9:00:00 EDT glucose, 50 mL, Soln-IV, IV Push, Once PRN Blood glucose, Routine, Start date 10/22/23 8:58:00 EDT insulin lispro, 0-10 Unit(s), Injection-Insulin, SubCutaneous, QIDACHS, Routine, Start date 10/22/23 11:30:00 EDT Hypoglycemia Protocol Responsive Patient Hypoglycemia Protocol Unresponsive Patient Routine Capillary Glucose POC Extracted from: Title:Consult Note Author:MAXIM POWELL, [place] Simental te:10/22/23 1. Elevated troponin (R79.89 : Other specified abnormal findings of blood chemistry) Patient has mildly elevated troponin superimposed on hypertensive urgency. He has no chest pain or anginal symptoms. I recommended discontinuation of his amlodipine and continuing nifedipine 90 mg p.o. daily. He will continue his metoprolol 50 mg p.o. twice daily. We will add hydrochlorothiazide 12.5 mg a day and Cozaar 50 mg p.o. daily. Would recommend discontinuation of his amlodipine as he is already on a calcium channel navarro. Would recommend obtaining a fast lipid profile as well as a 2D echo with Doppler. He will continue baby aspirin. Will hold on Plavix at this time. If his echocardiogram is normal and his blood pressure is well-controlled and optimized, would recommend a treadmill/MPI to evaluate him for possible concomitant coronary ischemia. If his stress test is grossly abnormal, he may require diagnostic coronary angiogram. Would recommend aggressive LDL reduction with starting him on Lipitor 40 mg p.o. nightly and repeat lipid profile in 6 weeks time. Would recommend aggressive management of his infected skin, so as to avoid cellulitis or erysipelas. Patient may require IV antibiotics. Would recommend aggressive control of his sugars to optimize his hemoglobin A1c. Thank you very much for the opportunity to participate in the cardiac care of your patient. Consultation time took place between 830 and 9 AM. 2. Cough (R05.9: Cough, unspecified) 3. Leukocytosis (D72.829: Elevated white blood cell count, unspecified) 4. Hyperglycemia (R73.9: Hyperglycemia, unspecified) 5. Abscess (L02.91: Cutaneous abscess, unspecified) 6. HTN (hypertension) (I10: Essential (primary) hypertension) 7. Tobacco use (Z72.0: Tobacco use) 8. On deep vein thrombosis (DVT) prophylaxis (Z79.899: Other termite helper (current) drug therapy) 9. Hyponatremia (E87.1: Hypo-osmolality and hyponatremia) Elevated blood pressure reading (R03.0: Elevated blood-pressure reading, without diagnosis of hypertension) Pneumonia (J18.9: Pneumonia, unspecified organism) Sepsis (A41.9: Sepsis, unspecified organism) Extracted from: Title:Admission H & P Author:Vickie MEANS DO Date:10/21/23 1. Elevated troponin (R79.89 : Other specified abnormal findings of blood chemistry) Will cycle cardiac enzymes. Will check hemoglobin A1c and fasting lipid panel. Will ask cardiology to see patient for further evaluation. Will empirically start patient on aspirin 81 mg p.o. daily. 2. Cough (R05.9: Cough, unspecified) Patient was given IV Zosyn and vancomycin in the emergency department. Procalcitonin was normal. Chest x-ray interpreted by myself without the benefit of radiology shows no acute cardiopulmonary process. Therefore I have not continued patient on antibiotics at this time. I have ordered DuoNeb as needed. Differential diagnosis includes possible COPD/asthma related cough versus CHF related cough versus GERD. Will await cardiology recommendations and proceed accordingly. 3. Hyperglycemia (R73.9: Hyperglycemia, unspecified) Patient has been checking his blood sugar recently at home but has also been on steroids. I will order a hemoglobin A1c with morning labs. 4. Abscess (L02.91: Cutaneous abscess, unspecified) Will screen patient for MRSA. At this time I do not think the abscesses are large enough for incision and drainage. Will treat them with Bactroban ointment twice daily. 5. HTN (hypertension) (I10: Essential (primary) hypertension) Resume home medications once reconciled. Hydralazine iv prn. see orders. 6. Tobacco use (Z72.0: Tobacco use) Nicotine patch as needed. Counseled patient on cessation. 7. On deep vein thrombosis (DVT) prophylaxis (Z79.899: Other termite helper (current) drug therapy) SCD, enoxaparin Orders: acetaminophen, 650 mg = 2 tab(s), Tab, Oral, q6hr PRN Pain, Routine, Start date 10/21/23 22:35:00 EDT, 10/21/23 22:35:00 EDT albuterol-ipratropium, 3 mL, Soln-Inh, Inhalation, QID PRN Dyspnea for 30 day(s), Stop date 11/20/23 22:33:00 EDT, Routine, Start date 10/21/23 22:34:00 EDT aspirin, 81 mg = 1 tab(s), Tab-EC, Oral, Daily, Routine, Start date 10/22/23 9:00:00 EDT, 10/21/23 22:35:00 EDT benzonatate, 100 mg = 1 cap(s), Cap, Oral, TID PRN Cough, Routine, Start date 10/21/23 22:34:00 EDT, 10/21/23 22:34:00 EDT diphenhydrAMINE, 25 mg = 1 cap(s), Cap, Oral, q6hr PRN Itching, Routine, Start date 10/21/23 22:35:00 EDT, 10/21/23 22:35:00 EDT enoxaparin, 40 mg = 0.4 mL, Injection, SubCutaneous, Daily for 30 day(s), Stop date 11/21/23 8:59:00 EDT, Routine, Start date 10/22/23 9:00:00 EDT, 10/21/23 22:35:00 EDT hydrALAZINE, 10 mg = 0.5 mL, Injection, IV Push, q6hr PRN Other (see comment), Routine, Start date 10/21/23 22:35:00 EDT, 10/21/23 22:35:00 EDT ibuprofen, 800 mg = 1 tab(s), Tab, Oral, TID PRN Pain, Routine, Start date 10/21/23 22:35:00 EDT, 10/21/23 22:35:00 EDT mupirocin topical, 1 terrence, Ointment, Topical, BID, NOW, Start date 10/21/23 22:36:00 EDT nicotine, 21 mg, 1 patch(es), Patch-ER, TransDermal, Daily PRN Other (see comment) for 30 day(s), Stop date 11/20/23 22:33:00 EDT, Routine, Start date 10/21/23 22:34:00 EDT ondansetron, 4 mg = 2 mL, Injection, IV Push, q6hr PRN Nausea, Routine, Start date 10/21/23 22:35:00 EDT, 10/21/23 22:35:00 EDT Ambulate with Assistance Basic Metabolic Panel Below the Knee Intermittent Pneumatic Compression Device Cardiac Diet Cardiac Monitoring CBC w/ Indices Consult to Cardiology HgbA1c Intake and Output Lipid Panel Magnesium Level MRSA Screen Notify Provider Vital Signs Notify Provider Vital Signs Place in Status Precautions Resuscitation Status - Full Sputum Culture Troponin Troponin TSH With T4fr Reflex Vital Signs Weight XR Chest 2 Views Anticipated stay greater than 2 midnights due to above Extracted from: Title:ED Note Author:Martha Sean Aaliyah Date :10/21/23 Abscess (L02.91: Cutaneous a bscess, unspecified) Elevated blood pressure reading (R03.0: Elevated blood-pressure reading, without diagnosis of hypertension) Elevated troponin (R79.89: Other specified abnormal findings of blood chemistry) Hyperglycemia (R73.9: Hyperglycemia, unspecified) Pneumonia (J18.9: Pneumonia, unspecified organism) Sepsis (A41.9: Sepsis, unspecified organism) Orders: piperacillin-tazobactam + Sodium Chloride 0.9% intravenous solution 50 mL, 3.375 gm = 1 EA, Injection, IV Piggyback, Once, Stop date 10/21/23 19:50:00 EDT, STAT, Start date 10/21/23 19:50:00 EDT, 100 mL/hr, Infuse over 30 minute(s) Sodium Chloride 0.9% intravenous solution, 1,000 mL, Soln-IV, IV, Once, Stop date 10/21/23 20:01:00 EDT, STAT, Start date 10/21/23 20:01:00 EDT, Infuse over 61, minute(s) Sodium Chloride 0.9% intravenous solution, 1,000 mL, Soln-IV, IV, Once, Stop date 10/21/23 18:52:00 EDT, STAT, Start date 10/21/23 18:52:00 EDT, Infuse over 61, minute(s) vancomycin + Generic Diluent 400 mL, Reason for Vancomycin: MRSA colonization or infection, 2,000 mg = 400 mL, Soln-IV, IV Piggyback, Once, Stop date 10/21/23 20:00:00 EDT, Routine, Start date 10/21/23 20:00:00 EDT, Infuse over 2 hour(s) Add on Test Add on Test B-Type Natriuretic Peptide Beta-hydroxybutyrate Blood Culture Charcoal Blood Culture Charcoal Blood Gas Maikel CBC w/ Auto Diff Comprehensive Metabolic Panel Continuous Pulse Oximetry ECG 12 Lead Adult ED Cardiac Monitoring eGFR Influenza A&B Ag Lactic Acid Oxygen Therapy PT & PTT Rapid COVID Antigen ([facility] [place]) Saline Lock Insert Troponin XR Chest Single View [facility]03-18-2024 NoteAdmission and Discharge Information Admit Date/Time:10/21/2023 20:55 Admitting Physician - Vickie MEANS DO Admitting Diagnoses: Discharge Order Date Discharge Patient - Ordered -- 10/23/23 12:49:00 EDT Discharge Diagnoses 1. Elevated troponin, 10/21/2023 2. Cough, 10/21/2023 3. Abscess, 10/21/2023 4. Leukocytosis, 10/22/2023 5. Hyperglycemia, 10/21/2023 6. Hyponatremia, 10/22/2023 7. Diabetes mellitus, type 2, 10/22/2023 8. HTN (hypertension), 10/21/2023 9. Obese, 10/22/2023 10. Tobacco use, 10/21/2023 11. On deep vein thrombosis (DVT) prophylaxis, 10/21/2023 Abscess - axilla, 10/21/2023 Elevated blood pressure reading, 10/21/2023 Fever, 10/21/2023 Increased blood sugar, 10/21/2023 Pneumonia, 10/21/2023 Sepsis, 10/21/2023 Procedure History Appendectomy with drainage, Spinal fusion. Hospital Course 43-year-old male with history of hypertension, with recent shortness of breath and was treated withoral prednisone and Lasix presented with complaints of generalized weakness, bowels, elevated bloodsugar and was admitted with elevated troponin, left axilla and scapular nondraining abscess, leukocytosis, hyponatremia secondary to hyperglycemia secondary to new onset diabetes mellitus and uncontrolled hypertension. A/P 1. Elevated troponin (R79.89: Other specified abnormal findings of blood chemistry) Elevated troponin?secondary to type II non-ST segment elevation myocardial infarction from demand ischemia. Patient will undergo echocardiogram and depending on echocardiogram may undergo stress test left heart catheterization. Meanwhile patient was started on aspirin. Echocardiogram was normal Stress echocardiogram was normal Cardiology was consulted 2. Cough (R05.9: Cough, unspecified) Supportive care. 3. Abscess (L02.91: Cutaneous abscess, unspecified) Left axilla and left scapula nondraining abscess. Start patient on doxycycline. Discharged on doxycycline p.o. for 7 days 4. Leukocytosis (D72.829: Elevated white blood cell count, unspecified) Secondary to above abscess. RESOLVED 5. Hyperglycemia (R73.9: Hyperglycemia, unspecified) Secondary to new onset diabetes mellitus. Started patient on sliding scale insulin. Hemoglobin A1c pending. Started on metformin 500 twice daily Follow-up with endocrinology in the next couple weeks 6. Hyponatremia (E87.1: Hypo-osmolality and hyponatremia) Secondary to hyperglycemia. Improving. Sodium level 131 7. Diabetes mellitus, type 2 (E11.9: Type 2 diabetes mellitus without complications) New onset diabetes mellitus. Fasting glucose 364. Started patient on sliding scale insulin. Patient already has prescriptions for metformin as outpatient. Hemoglobin A1c pending. 8. HTN (hypertension) (I10: Essential (primary) hypertension) Blood pressure uncontrolled. Continue on metoprolol, nifedipine. Seen by nursing home manager and hydrochlorothiazide and losartan were added. Will discharge on losartan 100 mg and hydrochlorothiazide 12.5 daily/continue nifedipine 9. Obese (E66.9: Obesity, unspecified) Recommend therapeutic lifestyle modification changes. 10. Tobacco use (Z72.0: Tobacco use) Recommend cessation. Continue nicotine patch. 11. 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 Services Consulted Consult to Cardiology (Cardiology Consult) - Ordered -- 10/21/23 22:33:00 EDT, +trop, Consult and Co-manage, [facility] Physical Exam Vitals & Measurements T: 36.7 ?C(Axillary) TMIN: 36.5 ?C(Oral) TMAX: 36.7 ?C(Axillary) HR: 115(Apical) RR: 18 BP: 135/84 SpO2: 96% WT: 113.8 kg General: alert, no acute distress Skin: warm, dry Head: no trauma, normocephalic Neck: Trachea midline, no adenopathy, no tenderness Eye: normal conjunctiva, sclera clear ENMT: TM's clear, oral mucosa moist, no pharyngeal erythema or exudate Cardiovascular: regular rate and rhythm, normal peripheral perfusion Respiratory: Lungs CTA, respirations non labored Chest wall: no deformity. Gastrointestinal: soft, non distended, no tenderness, no guarding. Back: No tenderness, Normal ROM, Normal alignment. Extremities: no deformity, no trauma Neurological: oriented x 4, LOC appropriate for age, CN II-XII intact, motor strength equal & normal bilaterally, sensation equal & normal bilaterally, speech normal Psychiatric: cooperative, affect appropriate for age, normal judgement, normal psychiatric thoughts. Tests Performed Culture Sputum -- Results Pending -- CXR Echo Transthoracic w/ Contrast -- Results Pending -- XR Chest Single View Please visit your patient portal for your results or contact your primary care physician. Discharge Plan Patient Discharge Condition stable Discharge Disposition Discharge To, Anticipated II - Home with responsible caregiver Discharged to - Home independently Home Discharge Diet Discharge Diet(s): Low Sodi (more content not included)...[facility] [place]Comment on above:Result Comment: Electronically Signed By: BEAR POWELL, Daron\.br\Date and Time Signed: 10/23/23 12:[id number] Hospital Discharge instructions Patient Education 10/23/2023 10:52:08 Obesity, Adult Obesity, Adult Obesity is the condition of having too much total body fat. Being overweight or obese means that your weight is greater than what is considered healthy for your body size. Obesity is determined by a measurement called BMI (body mass index). BMI is an estimate of body fat and is calculated from height and weight. For adults, a BMI of 30 or higher is considered obese. Obesity can lead to other health concerns and major illnesses, including: Stroke. Coronary artery disease (CAD). Type 2 diabetes. Some types of cancer, including cancers of the colon, breast, uterus, and gallbladder. High blood pressure (hypertension). High cholesterol. Gallbladder stones. Obesity can also contribute to: Osteoarthritis. Sleep apnea. Infertility problems. What are the causes? Common causes of this condition include: Eating daily meals that are high in calories, sugar, and fat. Drinking high amounts of sugar-sweetened beverages, such as soft drinks. Being born with genes that may make you more likely to become obese. Having a medical condition that causes obesity, including: ?Hypothyroidism. ?Polycystic ovarian syndrome (PCOS). ?Binge-eating disorder. ?[place] syndrome. Taking certain medicines, such as steroids, antidepressants, and seizure medicines. Not being physically active (sedentary lifestyle). Not getting enough sleep. What increases the risk? The following factors may make you more likely to develop this condition: Having a family history of obesity. Living in an area with limited access to: ?[place], recreation centers, or sidewalks. ?Healthy food choices, such as grocery stores and [place]. What are the signs or symptoms? The main sign of this condition is having too much body fat. How is this diagnosed? This condition is diagnosed based on: Your BMI. If you are an adult with a BMI of 30 or higher, you are considered obese. Your waist circumference. This measures the distance around your waistline. Your skinfold thickness. Your health care provider may gently pinch a fold of your skin and measureit. You may have other tests to check for underlying conditions. How is this treated? Treatment for this condition often includes changing your lifestyle. Treatment may include some or all of the following: Dietary changes. This may include developing a healthy meal plan. Regular physical activity. This may include activity that causes your heart to beat faster (aerobicexercise) and strength training. Work with your health care provider to design an exercise program that works for you. Medicine to help you lose weight if you are unable to lose one pound a week after six weeks of healthy eating and more physical activity. Treating conditions that cause the obesity (underlying conditions). Surgery. Surgical options may include gastric banding and gastric bypass. Surgery may be done if: ?Other treatments have not helped to improve your condition. ?You have a BMI of 40 or higher. ?You have life-threatening health problems related to obesity. Follow these instructions at home: Eating and drinking Follow recommendations from your health care provider about what you eat and drink. Your health care provider may advise you to: ?Limit fast food, sweets, and processed snack foods. ?Choose low-fat options, such as low-fat milk instead of whole milk. ?Eat five or more servings of fruits or vegetables every day. ?Choose healthy foods when you eat out. ?Keep low-fat snacks available. ?Limit sugary drinks, such as soda, fruit juice, sweetened iced tea, and flavored milk. Drink enough water to keep your urine pale yellow. Do not follow a fad diet. Fad diets can be unhealthy and even dangerous. Other healthful choices include: ?Eat at home more often. This gives you more control over what you eat. ?Learn to read food labels. This will help you understand how much food is considered one serving. ?Learn what a healthy serving size is. Physical activity Exercise regularly, as told by your health care provider. ?Most adults should get up to 150 minutes of moderate-intensity exercise every week. ?Ask your health care provider what types of exercise are safe for you and how often you should exercise. Warm up and stretch before being active. Cool down and stretch after being active. Rest between periods of activity. Lifestyle Work with your health care provider and a dietitian to set a weight-loss goal that is healthy and reasonable for you. Limit your screen time. Find ways to reward yourself that do not involve food. Do not drink alcohol if: ?Your health care provider tells you not to drink. ?You are , may be , or are planning to become . If you drink alcohol: ?Limit how much you have to: ?0 1 drink a day for women. ?0 2 drinks a day for men. ?Know how much alcohol is in your drink. In the [place] one drink equals one 12 oz bottle of beer (355 mL), one 5 oz glass of wine (148 mL), or one 1 oz glass of hard liquor (44 mL). General instructions Keep a weight-loss journal to keep track of the food you eat and how much exercise you get. Take [id number] and prescription medicines only as told by your health care provider. Take vitamins and supplements only as told by your health care provider. Consider joining a support group. Your health care provider may be able to recommend a support group. Pay attention to your mental health as obesity can lead to depression or self esteem issues. Keep all follow-up visits. This is important. Contact a health care provider if: You are unable to meet your weight-loss goal after six weeks of dietary and lifestyle changes. You have trouble breathing. Summary Obesity is the condition of having too much total body fat. Being overweight or obese means that your weight is greater than what is considered healthy for your body size. Work with your health care provider and a dietitian to set a weight-loss goal that is healthy and reasonable for you. Exercise regularly, as told by your health care provider. Ask your health care provider what types of exercise are safe for you and how often you should exercise. This information is not intended to replace advice given to you by your health care provider. Make sure you discuss any questions you have with your health care provider. Document Revised: 03/01/2022 Document Reviewed: 03/01/2022 [employer] Patient Education 2022 [employer]. 10/23/2023 10:52:05 Managing Your Hypertension Managing Your Hypertension Hypertension, also called high blood pressure, is when the force of the blood pressing against the pierre of the arteries is too strong. Arteries are blood vessels that carry blood from your heart throughout your body. Hypertension forces the heart to work harder to pump blood and may cause the arteries to become narrow or stiff. Understanding blood pressure readings A blood pressure reading includes a higher number over a lower number: The first, or top, number is called the systolic pressure. It is a measure of the pressure in your arteries as your heart beats. The second, or bottom number, is called the diastolic pressure. It is a measure of the pressure in your arteries as the heart relaxes. For most people, a normal blood pressure is below 120/80. Your personal target blood pressure may vary depending on your medical conditions, your age, and other factors. Blood pressure is classified into four stages. Based on your blood pressure reading, your health care provider may use the following stages to determine what type of treatment you need, if any. Systolic pressure and diastolic pressure are measured in a unit called millimeters of mercury (mmHg). Normal Systolic pressure: below 120. Diastolic pressure: below 80. Elevated Systolic pressure: 120 129. Diastolic pressure: below 80. Hypertension stage 1 Systolic pressure: 130 139. Diastolic pressure: 80 89. Hypertension stage 2 Systolic pressure: 140 or above. Diastolic pressure: 90 or above. How can this condition affect me? Managing your hypertension is very important. Over time, hypertension can damage the arteries and decrease blood flow to parts of the body, including the brain, heart, and kidneys. Having untreated or uncontrolled hypertension can lead to: A heart attack. A stroke. A weakened blood vessel (aneurysm). Heart failure. Kidney damage. Eye damage. Memory and concentration problems. Vascular dementia. What actions can I take to manage this condition? Hypertension can be managed by making lifestyle changes and possibly by taking medicines. Your health care provider will help you make a plan to bring your blood pressure within a normal range. You may be referred for counseling on a healthy diet and physical activity. Nutrition Eat a diet that is high in fiber and potassium, and low in salt (sodium), added sugar, and fat. An example eating plan is called the DASH diet. DASH stands for Dietary Approaches to Stop Hypertension. To eat this way: ?Eat plenty of fresh fruits and vegetables. Try to fill one-half of your plate at each meal with fruits and vegetables. ?Eat whole grains, such as whole-wheat pasta, brown rice, or whole-grain bread. Fill about one-fourth of your plate with whole grains. ?Eat low-fat dairy products. ?Avoid fatty cuts of meat, processed or cured meats, and poultry with skin. Fill about one-fourth of your plate with lean proteins such as fish, chicken without skin, beans, eggs, and tofu. ?Avoid pre-made and processed foods. These tend to be higher in sodium, added sugar, and fat. Reduce your daily sodium intake. Many people with hypertension should eat less than 1,500 mg of sodium a day. Lifestyle Work with your health care provider to maintain a healthy body weight or to lose weight. Ask what an ideal weight is for you. Get at least 30 minutes of exercise that causes your heart to beat faster (aerobic exercise) most days of the week. Activities may include walking, swimming, or biking. Include exercise to strengthen your muscles (resistance exercise), such as weight lifting, as part of your weekly exercise routine. Try to do these types of exercises for 30 minutes at least 3 days aweek. Do not use any products that contain nicotine or tobacco. These products include cigarettes, chewing tobacco, and vaping devices, such as e-cigarettes. If you need help quitting, ask your health careprovider. Control any long-term (chronic) conditions you have, such as high cholesterol or diabetes. Identify your sources of stress and find ways to manage stress. This may include meditation, deep breathing, or making time for fun activities. Alcohol use Do not drink alcohol if: ?Your health care provider tells you not to drink. ?You are , may be , or are planning to become . If you drink alcohol: ?Limit how much you have to: ?0 1 drink a day for women. ?0 2 drinks a day for men. ?Know how much alcohol is in your drink. In the [place] one drink equals one 12 oz bottle of beer (355 mL), one 5 oz glass of wine (148 mL), or one 1 oz glass of hard liquor (44 mL). Medicines Your health care provider may prescribe medicine if lifestyle changes are not enough to get your blood pressure under control and if: Your systolic blood pressure is 130 or higher. Your diastolic blood pressure is 80 or higher. Take medicines only as told by your health care provider. Follow the directions carefully. Blood pressure medicines must be taken as told by your health care provider. The medicine does not work as well when you skip doses. Skipping doses also puts you at risk for problems. Monitoring Before you monitor your blood pressure: Do not smoke, drink caffeinated beverages, or exercise within 30 minutes before taking a measurement. Use the bathroom and empty your bladder (urinate). Sit quietly for at least 5 minutes before taking measurements. Monitor your blood pressure at home as told by your health care provider. To do this: Sit with your back straight and supported. Place your feet flat on the floor. Do not cross your legs. Support your arm on a flat surface, such as a table. Make sure your upper arm is at heart level. Each time you measure, take two or three readings one minute apart and record the results. You may also need to have your blood pressure checked regularly by your health care provider. General information Talk with your health care provider about your diet, exercise habits, and other lifestyle factors that may be contributing to hypertension. Review all the medicines you take with your health care provider because there may be side effects or interactions. Keep all follow-up visits. Your health care provider can help you create and adjust your plan for managing your high blood pressure. Where to find more information National Heart, Lung, and Blood [place]: www.nhlbi.nih.gov [place] [employer]: www.heart.org Contact a health care provider if: You think you are having a reaction to medicines you have taken. You have repeated (recurrent) headaches. You feel dizzy. You have swelling in your ankles. You have trouble with your vision. Get help right away if: You develop a severe headache or confusion. You have unusual weakness or numbness, or you feel faint. You have severe pain in your chest or abdomen. You vomit repeatedly. You have trouble breathing. These symptoms may be an emergency. Get help right away. Call 911. Do not wait to see if the symptoms will go away. Do not drive yourself to the hospital. Summary Hypertension is when the force of blood pumping through your arteries is too strong. If this condition is not controlled, it may put you at risk for serious complications. Your personal target blood pressure may vary depending on your medical conditions, your age, and other factors. For most people, a normal blood pressure is less than 120/80. Hypertension is managed by lifestyle changes, medicines, or both. Lifestyle changes to help manage hypertension include losing weight, eating a healthy, low-sodium diet, exercising more, stopping smoking, and limiting alcohol. This information is not intended to replace advice given to you by your health care provider. Make sure you discuss any questions you have with your health care provider. Document Revised: 04/07/2022 Document Reviewed: 04/07/2022 [employer] Patient Education 2022 [employer]. Follow Up Care 10/21/2023 18:37:57 With:HATTIE SHANE Address: [address] [place] [address] When: Unknown With:MENDY RAINEYBAGH Address: [address], [address] [place] [address] Business (1) When: Unknown [facility]03-16-2024 NoteBasic Information Admit Date/Time:10/21/2023 20:55 Chief Complaint Pt states has been feeling unwell over the past couple of weeks. Fevers, chills. States noticed abscess on L axilla and upper back. Noticed blood sugar has been in the 600s, not a diabetic. Was recently on steriods. States feels as though infection is in History of Present Illness Patient is a 43-year-old male with past medical history as noted below comes in with above-stated chief complaint. Patient states that over the past 2 weeks he has had a persistent cough, elevated blood sugar, and dizziness. Patient states that he initially went to [facility] emergency department about 2 weeks ago and was treated with a Z-Adair and prednisone. Patient did not have significant improvement in his symptoms so he went back to the ED about 5 days later and was prescribed Lasix and prednisone. Patient was noted to have elevated blood sugars at the time and was referred to an urgent care and started on metformin. Patient unsure if he has had a hemoglobin A1c or not. Patient st ates that he did not take the metformin because he did not think he had diabetes. Patient's symptoms have persisted therefore he came to the ED on 10/21/2023 for further evaluation. When I see patienthe does also complain of abscess to his left back and left axilla. Patient does complain of headache, dizziness, vision changes when his blood sugar is high. At time of my exam patient states that the dizziness has resolved and he does not have a significant cough at this time. Patient denies any recent fevers or chills. Denies any nausea, vomiting, diarrhea, constipation, headache. Review of Systems 14 Systems reviewed and negative except as noted in HPI. Scoring Locke Fall Risk Score: 20 (10/21/23) Physical Exam Vitals & Measurements T: 36.6 ?C(Oral) TMIN: 36.6 ?C(Oral) TMAX: 37.0 ?C(Oral) HR: 101(Peripheral) RR: 18 BP: 207/109 SpO2: 96% HT: 177.1 cm WT: 114.9 kg General: alert, no acute distress Skin: 2 cm circular abscess noted lower edge of left scapula no significant erythema surrounding the abscess, left axilla with 2 cm circular abscess no significant erythema surrounding. These are both painful to touch. Not able to express any fluid with palpation. Head: no trauma, normocephalic Neck: Trachea midline, no adenopathy, no tenderness Eye: normal conjunctiva, sclera clear ENMT: oral mucosa moist, no pharyngeal erythema or exudate. hearing grossly intact Cardiovascular: regular rate and rhythm, no murmur/gallop/rub Respiratory: Lungs CTA, respirations non labored , no w/r/r Gastrointestinal: Positive bowel sound, soft, non distended, no tenderness, no guarding. Extremities: no deformity, no trauma Osteopathic: Deferred due to being noncontributory to current case. Neurological: oriented x 4, LOC appropriate for age, CN II-XII intact, motor strength equal & normal bilaterally, sensation equal & normal bilaterally, speech normal Psychiatric: cooperative, affect appropriate for age, normal judgement, normal psychiatric thoughts. Lab Results WBC: 15.8 E9/L High (10/21/23 19:32:00) RBC: 4.9 E12/L (10/21/23 19:32:00) HGB: 14.3 gm/dL (10/21/23 19:32:00) Hct: 41.6 % (10/21/23 19:32:00) MCV: 84.7 fL (10/21/23 19:32:00) MCH: 29 pg (10/21/23 19:32:00) MCHC: 34.3 gm/dL (10/21/23 19:32:00) RDW: 13.7 % (10/21/23:32:00) Platelet: 251 E9/L (10/21/23:32:00) MPV: 9.5 fL (10/21/23:32:00) Neutro Auto: 68.7 % (10/21/23:32:00) Lymph Auto: 25.2 % (10/21/23:32:00) Rogers Auto: 5.2 % (10/21/23:32:00) Eos Auto: 0.7 % (10/21/23:32:00) Basophil Auto: 0.2 % (10/21/23:32:00) Neutro Absolute: 10.9 E9/L High (10/21/23:32:00) Lymph Absolute: 4 E9/L (10/21/23:32:00) Rogers Absolute: 0.8 E9/L (10/21/23:32:00) Eos Absolute: 0.1 E9/L (10/21/23:32:00) Basophil Absolute: 0 E9/L (10/21/23:32:00) PT: 11.4 second(s) (10/21/23 19:10:00) INR: 1.02 (10/21/23:10:00) PTT: 29.4 second(s) (10/21/23 19:10:00) Glucose Lvl: 417 mg/dL High (10/21/23:32:00) BUN: 17 mg/dL (10/21/23:32:00) Creatinine: 0.9 mg/dL (10/21/23:32:00) eGFR: 109 mL/min/1.73 m2 (10/21/23:32:00) BUN/Creat Ratio: 19 (10/21/23:32:00) Sodium Lvl: 128 mmol/L Low (10/21/23:32:00) Potassium Lvl: 3.8 mmol/L (10/21/23:32:00) Chloride: 97 mmol/L Low (10/21/23:32:00) CO2: 22 mmol/L (10/21/23 19:32:00) AGAP: 13 mEq/L (10/21/23 19:32:00) Calcium Lvl: 9 mg/dL (10/21/23 19:32:00) Alk Phos: 75 Int._Unit/L (10/21/23 19:32:00) ALT: 25 Int._Unit/L (10/21/23 19:32:00) AST: 15 Int._Unit/L (10/21/23 19:32:00) Total Protein: 6.6 gm/dL (10/21/23 19:32:00) Albumin Lvl: 4 gm/dL (10/21/23 19:32:00) Globulin: 2.6 gm/dL (10/21/23:32:00) A/G Ratio: 1.5 (10/21/23 19:32:00) Bili Total: 0.5 mg/dL (10/21/23 19:32:00) Lactic Acid Lvl: 1.4 mmol/L (10/21/23 19:32:00) Troponin: 46.8 pg/mL High (10/21/23 19:32:00) BNP: 8 pg/mL (10/21/23 19:10:00) Procalcitonin: 0.06 ng/mL (10/21/23 19:32:00) (more content not included)... [facility]:Result Comment: Electronically Signed By: Vickie MEANS DO\.br\Date and Time Signed: 10/21/23 22:57 EDT 06-07-2021 Hospital Discharge instructions* Instructions* Linette Tapia DO - 06/07/2021 Is still a chance that you might have coronavirus. But take cough medicine as prescribed return to ER for any worsening shortness of breath or difficulty breathing. Follow-up with your primary care doctor in 2 to 3 days. * Attachments The following attachments cannot be sent through Care Everywhere. * URI (Upper Respiratory Infection) ([place] Lankan) [facility] Phone: [facility] note* Diagnosis Acute upper respiratory infection- Primary Acute upper respiratory infections of unspecified site [facility]* Diagnosis Cough- Primary Shortness of breath Essential hypertension Unspecified essential hypertension [facility] Phone: Hospital course Narrative No data available for this section [facility]* Instructions* Micheal Kwok MD - 06/09/2021 Please continue with your inhalers as advised and prescribed May continue with the Tessalon Perles also as previously prescribed Please have your blood pressure rechecked by your physician at your next office visit * Attachments The following attachments cannot be sent through Care Everywhere. * SOB (Shortness of Breath) ([place]ankan) * Cough ([place]ankan) * Hypertension: General Info ([place]ri Lankan) [facility] Phone: progress note No data available for this section [facility] Discharge Instructions * Discharge Instr - Activity* [...] at most local grocery stores, pharmacies, and chain [employer]-stores. ? If you have any questions about [...] be sent through Care Everywhere. * Dyspepsia (Sri Lankan) * ERCP (Endoscopic Retrograde Cholangiopancreatogram ): Pre-op ([place]ankan) documented in this encounter* Attachments The following attachments cannot be sent through Care Everywhere. * Cholecystectomy: Post-op ([place]ankan) * Hypertension ([place] Lankan) * Post-op Infection ([place]ankan) documented in this encounter History of Present Illness * Maria Antonia Galvez RN - 06/07/2019 3:00 PM EDT [employer] reviewed discharge instructions with patient and girlfriend. Both verbalized understanding. Denies questions. Copy of discharge instructions given to patient. * Miah Ordoñez MSW, KORINA - 06/07/2019 10:44 AM EDT Social Work intial Assessment/Discharge Plan Diagnosis: Cholecystitis, acute with cholelithiasis Met with: Patient, Mother and other family & friends. PCP: Rodrick Galdamez DO Payment Source: [employer] Advance Directives: None Code Status: Full Mental [...] Plan: No needs. Will return home in [place]. * Amina Borjas RD, SAURAV - 06/07/2019 10:23 AM EDT Nutrition Assessment [...] normal diet for pt is fried foods, japanese fries, cheeseburgers, hotdogs. Pt states he eats [...] Fluid Accumulation-No significant fluid accumulation, Extremities 6. [employer] Strength-Not measured Recent Labs 06/06/19 1850 06/07/19 0545 NA 136 134* K 4.0 4.3 CL 96* 99 CO2 29 22 BUN 9 9 CREATININE 0.62* 0.61* GLUCOSE 165* 88 ALT 268* 289* ALKPHOS 88 90 GFR Lab Results Component Value Date LABALBU 3.9 06/07/2019 Nutrition Risk Level: Moderate Nutrient Needs: Estimated Daily Total Kcal: 5758-1535 Estimated Daily Protein (g): 90-105 Estimated Daily Total Fluid (ml/day): 0041-1581(25-30) Nutrition Diagnosis: Problem: Altered GI function Etiology: [...] , 7.8% weight gain x 9 months Piercy Body Wt: 166 lb (75.3 kg), % Piercy Body 122% BMI Classification: BMI 25.0 - [...] Ennis DO - 06/13/2019 2:14 PM EST [facility] - Progress Note 06/13/2019 2:14 PM Name: Devon Mathew : 1980 Age: 39 y.o. male Acct: [id number] Room: 1014/1014-02 Day: 6 Hospital: [facility] Admit Date: 06/07/2019 11:54 PM PCP: Rodrick Galdamez DO Subjective: C/C: Upper right quadrant abdominal pain Interval History: Status: Improved. POD #1 laparoscopic cholecystectomy. Status post ERCP 2 days ago. The results are reported below. Sphincterotomy and balloon sweep of sludge was performed. Patient's amylase and lipase are improved. Patient was released from [facility] 06/06/2019 after hospitalization for upper right [...] No edema Data Review: CBC: Recent Labs 06/10/1954206/11/1944006/12/19446 WBC 9.1 9.6 10.5 HGB 13.0 12.8* 13.2 PLT 208 215 256 BMP: Recent Labs 06/10/1943 06/11/1944006/12/19446 NA 140 140 136 K 3.8 [...] DO - 06/12/2019 11:05 AM EST [facility] - Progress Note 06/12/2019 11:05 AM Name: Devon Mathew : 1980 Age: 39 y.o. male Acct: [id number] [facility] Day: 5 Hospital: [facility] Admit Date: 06/07/2019 11:54 PM PCP: Rodrick [...] 4 PM today. Patient was released from [facility] 06/06/2019 after hospitalization for upper right abdominal discomfort. He was diagnosed with acute cholecystitis/cholelithiasis. Initial plan was for MRCP followed by laparoscopic cholecystectomy however [facility] he was discharged to have [...] no acute disease Labs: Hematology: Recent Labs 06/10/1954206/11/1944006/12/19446 WBC 9.1 9.6 10.5 RBC 4.22 4.20* 4.37 HGB 13.0 12.8* 13.2 HCT 37.1* 36.3* 36.8* MCV 87.9 86.4 84.2 MCH 30.8 30.5 30.2 MCHC 35.0* 35.3* 35.9* RDW 12.1 12.1 11.9 PLT 208 215 256 MPV 10.8 10.6 10.9 SEGS 62 62 81* LYMPHOPCT 25 24 14* MONOPCT 8 8 5 EOSRELPCT 3 4 0* BASOPCT 1 1 0 Chemistry: Recent Labs 06/10/1954206/11/1944006/12/19446 NA 140 140 136 K 3.8 3.8 4.1 CL 104 104 101 CO2 24 24 24 GLUCOSE 88 92 164* BUN 5* 5* 9 CREATININE 0.46* 0.46* 0.44* MG -- 1.9 1.9 ANIONGAP 12 12 11 LABGLOM >60 >60 >60 GFRAA >60 >60 >60 CALCIUM 8.5* 8.8 9.0 Recent Labs 06/10/1954206/11/19440 PROT 6.0* -- LABALBU 3.5 -- AST [...] No edema Data Review: CBC: Recent Labs 06/09/19 0539 06/10/19 0543 06/11/19 0441 WBC 11.5* 9.1 9.6 HGB 13.8 13.0 12.8* PLT 186 208 215 BMP: Recent Labs 06/09/1939 06/10/1943 06/11/19 0441 NA 136 140 140 K 3.6* 3.8 3.8 CL 101 104 104 CO2 25 24 24 BUN 7 5* 5* CREATININE 0.47* 0.46* 0.46* GLUCOSE 78 88 92 Hepatic: Recent Labs 06/09/19 0539 06/10/19 0543 AST 31 30 ALT 119* 100* ALKPHOS 109 89 BILITOT 1.04 0.87 BILIDIR -- 0.32* Coagulation: Recent Labs 06/09/1939 06/10/19542 PROT 6.0* 6.0* INR 1.0 -- ASSESSMENT [...] the timing of his laparoscopic cholecystectomy. Bree Pires RN - 06/11/2019 6:25 PM EST Pt returned from surgery, vss, update given to fiance and mother, pt will be NPO after midnight, ptcan have clears around 1999, will continue to monitor Bree Pires RN - 06/11/2019 3:15 PM EST Pt to surgery per bed for ERCP, mother at side Bree Pires RN - 06/11/2019 2:[address] Ennis messaged about IV and po md azalia wants us to use IV for when pt is NPO * Kameron Ennis DO - 06/11/2019 10:13 AM EST [facility] - Progress Note 06/11/2019 10:14 AM Name: Devon Mathew : 1980 Age: 39 y.o. male Acct: [id number] Room: [address] [place] [address] Day: 4 Hospital: [facility] Admit Date: 06/07/2019 11:54 PM PCP: Rodrick Galdamez DO Subjective: C/C: Upper right quadrant abdominal pain Interval History: Status: About the same. Surgical note has been reviewed. The patient will need laparoscopic cholecystectomy. Surgery is discussing with GI timing or need for ERCP. Tentatively is scheduled for 3:30 PM today. Patient was released from [facility] 06/06/2019 after hospitalization for upper right [...] surgery performed here and not back at [facility]. History: From my partners note Devon [...] scheduled to have an outpatient procedure on Raya if he did not develop any worsening [...] 18 Ht 5' 10 (1.778 m) Comment: 5 Wt 204 lb 8.6 oz (92.8 kg) [...] No edema Data Review: CBC: Recent Labs 06/09/1953806/10/19 0543 06/11/19440 WBC 11.5* 9.1 9.6 HGB 13.8 13.0 12.8* PLT 186 208 215 BMP: Recent Labs 06/09/1953806/10/1943 06/11/19440 NA 136 140 140 K 3.6* 3.8 3.8 CL 101 104 104 CO2 25 24 24 BUN 7 5* 5* CREATININE 0.47* 0.46* 0.46* GLUCOSE 78 88 92 Hepatic: Recent Labs 06/09/19 0539 06/10/19 0543 AST 31 30 ALT 119* 100* ALKPHOS 109 89 BILITOT 1.04 0.87 BILIDIR -- 0.32* Coagulation: Recent Labs 06/09/1953806/10/19 0543 PROT 6.0* 6.0* INR 1.0 -- ASSESSMENT [...] Progress Note 06/10/2019 12:02 PM Name: Devon Mathew : 1980 Age: 39 y.o. male Acct: [id number] Room: [address] [place] [address] Day: 3 Hospital: [facility] Admit Date: 06/07/2019 11:54 PM PCP: Rodrick Galdamez DO Subjective: C/C: Upper right quadrant abdominal pain Interval History: Status: not changed. Patient was released from [facility] 06/06/2019 after hospitalization for upper right [...] surgery performed here and not back at [facility]. Surgical consultation has been obtained. Current [...] Potts MD - 06/09/2019 7:[address] [facility] IN-PATIENT SERVICE [facility] Progress Note 06/09/2019 7:37 AM Name: Devon Mathew Acct: [id number] Room: [address] [place] [address] Day: 2 Admit Date: 06/07/2019 11:54 PM [...] Intake/Output Summary (Last 24 hours) at 06/09/2019 0737 Last data filed at 06/09/2019 0251 Gross [...] -- -- NOT REPORTED -- Recent Labs 06/06/19184906/07/1954406/07/19174906/09/19 0539 PROT 8.3 6.7 7.4 6.0* LABALBU 4.9 3.9 4.4 3.6 AST 241* 201* 123* 31 ALT 268* 289* 261* 119* ALKPHOS 88 90 120 109 BILITOT 2.32* 3.38* 5.24* 1.04 AMYLASE -- -- -- 645* LIPASE 14 -- >3,000* 688* TRIG -- -- -- 122 ABG:No results found for: POCPH, PHART, PH, POCPCO2, NKO5EMW, PCO2, POCPO2, PO2ART, PO2, POCHCO3, LIF0XHF, HCO3, NBEA, PBEA, BEART, BE, THGBART, THB, [id number], [id number], [id number], O2SAT, FIO2 Lab Results Component Value Date/Time [...] - 06/08/2019 12:06 PM EDT Occupational Therapy [facility] Occupational Therapy Not Seen Note Patient [...] FoundDocuments on File Type Date Recorded 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 Advance Directives and Living Will Power of Phlebotomy Services Technician Latest Code Status on File Code Status Date Activated Date Inactivated Comments Full Code 06/06/2019 11:02 PM Full Code 04/25/2013 9:50 PM 04/26/2013 2:03 PM Full Code 04/25/2013 5:52 PM 04/25/2013 9:50 PM Latest Code Status on File Code Status Date Activated Date Inactivated Comments Full Code 06/06/2019 11:02 PM 06/07/2019 5:24 PM Documents on File Type Date Recorded 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 Advance Directives and Living Will Power of Phlebotomy Services Technician Latest Code Status on File Code Status Date Activated Date Inactivated Comments Full Code 06/08/2019 12:09 AM Full Code 06/06/2019 11:02 PM 06/07/2019 5:24 PM Full Code 04/25/2013 9:50 PM 04/26/2013 2:03 PM Full Code 04/25/2013 5:52 PM 04/25/2013 9:50 PM Documents on File Type Date Recorded 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 ACP-Advance Directive ACP-Power of Phlebotomy Services Technician Latest Code Status on File Code Status Date Activated Date Inactivated Comments Full Code 06/08/2019 12:09 AM 06/13/2019 5:36 PM Full Code 06/06/2019 11:02 PM 06/07/2019 5:24 PM Summary Purpose Family History No Family History Records FoundNo Family History Records FoundNo Family History Records FoundNo Family History Records Found No data available for this section No Family History Records FoundNo Family History Records Found No data available for this section No data available for this section No Family History Records FoundNo Family History Records FoundNo Family History Records FoundNo Family History Records FoundNo Family History Records FoundNo Family History Records FoundNo Family History Records FoundNo Family History Records FoundNo Family History Records FoundNo Family History Records Found Hospital Course * Kameron Ennis DO - 06/13/2019 2:[address] [facility] IN-PATIENT SERVICE [facility] Discharge Summary Patient ID: Devon Mathew : 1980 ACCOUNT: [id number] Patient's PCP: Rodrick Galdamez DO Admit Date: [...] lipase are improved. Patient was released from [facility] 06/06/2019 after hospitalization for upper right [...] 1 to 2 weeks Rodrick Galdamez DO [address] [facility] [address] Abhishek Vanessa MD [address] [place] [address] In 1 week Requiring Further Evaluation/Follow [...] Your Medications These medications were sent to [facility]/pharmacy #[id number] - [place] [id number] [facility] - P [phone] - F [phone] [place] [address] [id number] cephALEXin 500 MG capsule You can get [...] Contact Diagnoses Acute cholecystitis Margarito Lopez MD [address] [facility] [address] [place] [address] [facility] Reason Comments Abdominal Pain upper abd pain. charlie ent was discharged from hospital around 1500 today. he is scheduled for gallbladder surgery on Monday in [place]. he is having increased pain at this time. Status Reason Specialty Diagnoses / Procedures Referre d By Contact Referred To Contact Diagnoses Abdominal pain abdominal pain Paula Potts MD [address] [facility] [address] [place] [address] [facility] Reason Comments Cough cough ongoing for tw [...] section and content) DATE CREATED AUTHOR [facility] DATE CREATED AUTHOR AUTHOR'S ORGANIZ ATION 02/25/2021 [facility] DATE CREATED AUTHOR AUTHOR'S ORGANIZ ATION 06/10/2021 [facility] DATE CREATED AUTHOR AUTHOR'S ORGANIZ ATION 06/26/2021 [facility] DATE CREATED AUTHOR AUTHOR'S ORGANIZ ATION 11/01/2023 [facility] DATE CREATED AUTHOR AUTHOR'S ORGANIZ ATION 12/24/2023 [facility] DATE CREATED AUTHOR AUTHOR'S ORGANIZ ATION 04/10/2024 [facility] DATE CREATED AUTHOR AUTHOR'S ORGANIZ ATION 04/13/2024 [facility] Ordered Prescriptions (unrec ognized section and content) [...] (Given - Provid er: Stephanie Cordoba RN) Patient Care team informatio n (unrecognized section and content) Personnel Name: HATTIE SHANE CNP Address: Address: [address] [place] [id number] Personnel Name: AMOL HERNANDEZ Address: Address: [address] [place] [phone] Personnel Name: NONE, XXXX Address: Address: [facility] TO PATIENTS WHO ARE [...] BE BASED ON THE PRIMARY CLINICAL RECORDS. [facility] [employer] [facility]. provides no warranty or guarantee of the accuracy or completeness of information in this document.
[2024-04-17] MEDS: SULFAMETHOXAZOLE/TRIMETHOPRIM 800-160 MG TABLET 1 TAB PO (20:16)
[2024-04-17] MEDS: HYDROMORPHONE HCL 1 MG/ML CARTRIDGE IM (20:16)
[2024-04-17] MEDS: IBUPROFEN 600 MG TABLET PO (20:16)
--- NOTE | 2024-04-17 20:31 | ED.SKABFB1 ---
HPI - Skin/Abscess/Foreign Bdy General Chief complaint: Skin/Abscess/Foreign Body Stated complaint: Abscess/Boil Left armpit Time Seen by Provider: 04/17/24 19:50 Source: patient and family () Mode of arrival: walk-in Limitations: no limitations History of Present Illness HPI narrative: 43-year-old male presents to the emergency department with his with complaint of pain and swelling under his left arm. Onset yesterday. Has had history of MRSA infections in the past. Symptoms of been progressively worsening into today. There is associated redness, tenderness. Patient complains of some general malaise. Denies any fever, chills Quality:?Pressure Severity:?Moderate Timing:?As above, constant, worsening Context: Normal setting and activity? Modifying factors:?Pain worse with palpation Associated symptoms: As above Related Data Home Medications ?Medication ?Instructions ?Recorded ?Confirmed metoprolol tartrate 50 mg tablet 50 mg PO BID 09/03/23 09/25/23 Previous Rx's ?Medication ?Instructions ?Recorded nifedipine 90 mg tablet,extended 90 mg PO DAILY #14 tabs 09/03/23 release cyclobenzaprine 10 mg tablet 10 mg PO TID PRN muscle spasm #20 09/25/23 tabs hydrocodone 5 mg-acetaminophen 325 1 tab PO Q6H PRN pain #20 tabs 09/25/23 mg tablet albuterol sulfate 2.5 mg/3 mL 2.5 mg (3 mL) inhalation Q6H PRN 10/09/23 (0.083 %) solution for nebulization shortness of breath or wheezing #90 mL azithromycin 250 mg tablet See Rx Instructions PO .COMPLEX #6 10/09/23 (Zithromax Z-Glen) tabs furosemide 20 mg tablet (Lasix) 20 mg PO BID 3 days #6 tabs 10/09/23 prednisone 20 mg tablet 60 mg (3 x 20 mg) PO DAILY 3 days 10/09/23 #9 tabs sulfamethoxazole 800 1 tab PO Q12H 10 days #20 tabs 04/17/24 mg-trimethoprim 160 mg tablet (Bactrim DS) Allergies Allergy/AdvReac Type Severity Reaction Status Date / Time No Known Drug Allergies Allergy Verified 04/17/24 19:43 Review of Systems ROS Narrative CONST: Denies any fever, chills ENDOCRINE: Denies history of diabetes MS: Denies arthralgias, myalgias SKIN: + color change, swelling.? Denies any itching NEURO: Denies any numbness, tingling PFSH PFSH Social History Smoking status: Heavy tobacco smoker Little interest or pleasure in doing things: not at all Feeling down, depressed, or hopeless: not at all Exam Narrative Exam Narrative: Vital signs reviewed Nurses notes noted CONST: Nontoxic, well appearing, well nourished, in no distress.? No diaphoresis.?? HENT: normocephalic, atraumatic, moist mucous membrane, no abnormalities of the nose noted, hearing normal CV: 2+ palp rad pulses MS/NEURO: ROM of arm full, sensory intact, no weakness SKIN: + erythema, swelling, fluctuance with surrounding induration, warm to touch. Not pointing.? Not currently draining. Minimal surrounding erythema Constitutional Vital Signs, click to edit/add: Last Vital Signs Temp 98.0 F 04/17/24 19:43 Pulse 97 H 04/17/24 19:43 Resp 18 04/17/24 19:43 BP 140/88 04/17/24 19:43 Pulse Ox 97 04/17/24 19:43 O2 Del Method Room Air 04/17/24 19:43 Course Vital Signs Vital signs: Vital Signs Temperature 98.0 F 04/17/24 19:43 Pulse Rate 97 H 04/17/24 19:43 Respiratory Rate 18 04/17/24 19:43 Blood Pressure 140/88 04/17/24 19:43 Pulse Oximetry 97 04/17/24 19:43 Oxygen Delivery Method Room Air 04/17/24 19:43 Temperature 98.0 F 04/17/24 19:43 Pulse Rate 97 H 04/17/24 19:43 Respiratory Rate 18 04/17/24 19:43 Blood Pressure 140/88 04/17/24 19:43 Pulse Oximetry 97 04/17/24 19:43 Oxygen Delivery Method Room Air 04/17/24 19:43 MDM - Skin/Abscess/Foreign Bdy MDM Narrative Medical decision making narrative: This is a pleasant 43-year-old male presents with with complaint of pain and swelling under his left arm. Onset yesterday. Has had history of skin infections in the past. On arrival, afebrile, vital signs are stable. On exam, nontoxic, well-appearing patient in no distress. He has a 3 cm area of swelling that is centrally fluctuant with surrounding induration, cellulitis under his left arm. There is associated tenderness. No pointing present. Favor abscess Contact dermatitis less likely based on history and physical exam Consider hidradenitis Patient was medicated with IM Dilaudid, 1 mg which improved his pain overall. I&D was performed, see procedure note above. Other than having pain, no other complications reported. Wound culture obtained and sent to the lab. Patient given dose of Bactrim. Nursing applied bulky dressings. Patient had improvement after procedure. History and record reviewed Discussion with independent historian: Spouse No additional records available Reevaluation: Patient noted improvement after treatment of his abscess. Disposition ? The patient was discharged. Plan: Patient will be discharged to home. Condition at time of disposition: stable Prescription for Bactrim sent to pharmacy. Advised to follow up with primary provider. Advised to return for any worsening and/or development of new, concerning signs or symptoms PLEASE NOTE: Portions of the medical record may have been produced using electronic certified orthotic fitter and may contain errors with respect to translation of words which may not have been identified prior to finalization of the chart. Discharge Plan Discharge Chief Complaint: Skin/Abscess/Foreign Body Clinical Impression: Abscess of axilla, left, Arm pain, left Patient Disposition: Home, Self-Care Time of Disposition Decision: 21:07 Condition: Good Mode of Transportation: Private Vehicle Prescriptions / Home Meds: New sulfamethoxazole-trimethoprim [Bactrim DS] 800-160 mg tablet 1 tab PO Q12H 10 Days Qty: 20 0RF No Action metoprolol tartrate 50 mg tablet 50 mg PO BID nifedipine 90 mg tablet extended release 90 mg PO DAILY Qty: 14 0RF cyclobenzaprine 10 mg tablet 10 mg PO TID PRN (Reason: muscle spasm) Qty: 20 0RF hydrocodone-acetaminophen 5-325 mg tablet 1 tab PO Q6H PRN (Reason: pain) Qty: 20 0RF albuterol sulfate 2.5 mg /3 mL (0.083 %) solution for nebulization 2.5 mg inhalation Q6H PRN (Reason: shortness of breath or wheezing) Qty: 90 0RF azithromycin [Zithromax Z-Glen] 250 mg tablet See Rx Instructions .ROUTE .COMPLEX Qty: 6 0RF Rx Instructions: For 250 mg dose pack: take 500 mg today (day 1), then 250 mg for 4 days (days 2-5) prednisone 20 mg tablet 60 mg PO DAILY 3 Days Qty: 9 0RF furosemide [Lasix] 20 mg tablet 20 mg PO BID 3 Days Qty: 6 0RF Print Language: Turkish Instructions: Abscess Follow-up (ED), Incision and Drainage (ED) Additional Instructions: REMOVED YOUR PACKING IN 2 DAYS!!!! Referrals: Fidel Fritz MD [Physician] - As soon as possible Physician,Non-Staff, [Primary Care Provider] - 1 week Discharge Date/Time: 04/17/24 21:17 Procedures ED ID Incision & Drainage I&D Type: abcess Abscess Simple/Multiple: simple/single Site: upper extremity (left axilla) Side (if applicable): left Sedation/analgesia: none Anesthetic used: lidocaine 1% Technique: incised with #11 blade Amount of fluid (mL): 5 Irrigation: Yes Packing used: iodoform Complications: pain
[2024-04-17] MEDS: LIDOCAINE HCL 1% 100 MG/10 ML MDV INJ (20:48)
== END 2024-04-17 21:17 | disposition home or self-care (01) ==
PROVIDERS: Emergency Provider Internal Medicine
DX: L02.412 Cutaneous abscess of left axilla (principal); Z86.14 Personal history of Methicillin resistant Staphylococcus aureus infection; F17.200 Nicotine dependence, unspecified, uncomplicated; M79.602 Pain in left arm
CPT/HCPCS: 10060; 87070; 87075; 96372; 99284; J1170

== ENCOUNTER 2024-12-24 14:04 | Emergency (ER) | payer OTHER, SELFPAY ==
--- OUTSIDE RECORDS SUMMARY | 2023-10-11 12:47 | XMS_ITS ---
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
--- OUTSIDE RECORDS SUMMARY | 2023-12-19 10:30 | XMS_ITS ---
Author Organization [facility] vices Address [address] [place], [place] [address] Care Team Providers Care Grievance Coordinator Name Role Phone Deepika Girgsby Primary Care Provider [phone] REASON FOR VISIT Fu anxiety Social History Sex Assigned At : Social History Observation Description Sex Assigned At Male Encounters Encounter Location Date Provider Diagnosis [place] [address] [place] [address] 12/19/2023 Deepika Grigsby Plan Of Treatment No Information Progress Notes * MATHEWGuerline RUBIOB:1980 (44 yo M)Acc No.[id number]:12/19/2023 Medical Note Patient: Devon LANE Provider: Kate Grigsby :1980 A ge:43 Y S ex:Male Date:12/19/2023 Address:[address] [place], [place] [id number] Subjective: * Chief Complaints: * 1 . Fu anxiety. * Medical History: Objective: * Vitals: Assessment: Plan: * Treatment: * Billing Information: * Visit Code: * Procedure Codes: * Electronic signature of GERMAINE Esposito on 12/24/2024 at 02:12 PM EDT Sign off status: Pending * Provider: Kate Grigsby Date: 12/19/2023 Generated for Ishmael bowers/Elvia/eTransmitting on: 12/24/2024 02:12 PM EDT
--- OUTSIDE RECORDS SUMMARY | 2024-01-04 11:45 | XMS_ITS ---
Author Organization [facility] vices Address [address] [place], [place] [address] Care Team Providers Care Fisher Hand Line Name Role Phone Deepika Grigsby Primary Care Provider REASON FOR VISIT B/P SOB Social History Sex Assigned At : Social History Observation Description Sex Assigned At Male Encounters Encounter Location Date Provider Diagnosis [place] [address] [place] [address] 01/04/2024 Deepika Grigsby Plan Of Treatment No Information Progress Notes * PRIYANKAGuerlineOB:1980 (44 yo M)Acc No.[id number]:01/04/2024 Medical Note Patient: Leandro LANEy Provider: Kate Grigsby :1980 A ge:43 Y S ex:Male Date:01/04/2024 Address:[address] [place], [place] [id number] Subjective: * Chief Complaints: * 1 . B/P SOB. * Medical History: Objective: * Vitals: Assessment: Plan: * Treatment: * Billing Information: * Visit Code: * Procedure Codes: * Electronic signature of GERMAINE Esposito on 12/24/2024 at 02:12 PM EDT Sign off status: Pending * Provider: Kate Grigsby Date: 01/04/2024 Generated for Ishmael bowers/Elvia/eTransmitting on: 12/24/2024 02:12 PM EDT
--- OUTSIDE RECORDS SUMMARY | 2024-12-24 14:12 | XMS_ITS | Patient Health Record ---
Author Organization [facility] [place] Address [address] [place] [address] Care Team Providers Care Wine Steward/Stewardess Name Role Phone Boris Justin NP Primary Care Provider Unavailab le Reason For Referral No Information Medications Medication SIG (Take, Route, Fr equency, Duration) Notes Start Date End Date Status Norvasc Active Keflex 500 MG 1 capsule Orally TID for 7 days 03/2019 Active Xanax Active Metoprolol Tartrate Active Social History Tobacco Use: Social History Observation Description Date Details (start date - stop date) Current Smoker NA - NA Tobacco Use/Smoking Question Answer Notes Patient is a current smoker How often do you smoke cigarettes? every day Section Notes: , denies illicit drug use, employed Problems Problem Type SNOMED Code ICD Code Onset Dates Problem Status W/U Status Risk Notes Problem 071228477 Cholelithiasis w ith acute on chronic cholecystitis (K80.12) Active confirmed Plan Of Treatment No Information Insurance Providers Payer Name Payer Address Payer Phone Subscriber Number Group Number Insured Name Patient Relationship to Insured Coverage Start Date Coverage End Date MMO [employer] [address] [place] [phone] [id number] Devon Oro Self - patient is the insured 9 Medical (General) History Surgical History Surgery Date(Month/Year) Lap cholecystectomy 06/12/2019
[2024-12-24 14:16] VITALS: BP 158/105; PULSE 95; TEMP 36.6; O2SAT 98; BMI 38.0
--- NOTE | 2024-12-24 14:19 | ED.GENADUL1 ---
HPI HPI - General Adult General Chief complaint: Shortness of Breath/Dyspnea Stated complaint: SOB PT HAS COPD Time Seen by Provider: 12/24/24 14:07 Source: patient Mode of arrival: walk-in Limitations: no limitations History of Present Illness HPI narrative: This 44-year-old male states he has a history of COPD and has had a cough with burning chest pain for last 1 week along with wheezing. He used his albuterol inhaler once today. He denies body aches, chills or fever or hemoptysis. He is also hypertensive and diabetic but does not have any history to suggest ischemic heart disease. He quit smoking 3 months ago. Related Data Home Medications ?Medication ?Instructions ?Recorded ?Confirmed metoprolol tartrate 50 mg tablet 50 mg PO BID 09/03/23 12/24/24 amlodipine 10 mg tablet 10 mg PO DAILY 12/24/24 12/24/24 insulin glargine 100 unit/mL (3 25 unit subcut QAM 12/24/24 12/24/24 mL) subcutaneous pen (Lantus Solostar U-100 Insulin) insulin lispro 100 unit/mL subcut 12/24/24 subcutaneous pen (Humalog KwikPen (U-100) Insulin) losartan 50 mg-hydrochlorothiazide 1 tab PO DAILY 12/24/24 12/24/24 12.5 mg tablet metformin 500 mg tablet 1,000 mg PO BID 12/24/24 12/24/24 nicotine 14 mg/24 hr daily 1 patch topical DAILY 12/24/24 12/24/24 transdermal patch Previous Rx's ?Medication ?Instructions ?Recorded albuterol sulfate 2.5 mg/3 mL 2.5 mg (3 mL) inhalation Q6H PRN 10/09/23 (0.083 %) solution for nebulization shortness of breath or wheezing #90 mL albuterol sulfate 90 mcg/actuation 2 inh inhalation Q6H PRN shortness 12/24/24 aerosol inhaler of breath or wheezing #8.5 grams budesonide-formoterol HFA 160 2 inh inhalation BID #10.2 grams 12/24/24 mcg-4.5 mcg/actuation aerosol inhaler (Symbicort) Allergies Allergy/AdvReac Type Severity Reaction Status Date / Time prednisone AdvReac Mild Vomiting Verified 12/24/24 14:16 Opioid HPI Opioid Management Most Recent Opioid Data: Last Pain Scale 10 04/17/24, 20:16 Review of Systems ROS Status of ROS 10 or more systems reviewed and unremarkable except as noted in history and below PFSH PFSH Social History Smoking status: Heavy tobacco smoker Little interest or pleasure in doing things: not at all Feeling down, depressed, or hopeless: not at all Exam Narrative Exam Narrative: Patient's vital signs are stable and he does not have conversational dyspnea. HEENT exam is normal to inspection. Neck is supple. Auscultation of the lungs reveals slightly diminished air entry but I do not hear any rales or rhonchi. Heart has regular rate and rhythm. Abdomen is soft nontender. There is no organomegaly. He does not have calf tenderness or pedal edema. Speech and mentation are clear and intact. There is no facial asymmetry. He moves all extremities actively. Constitutional Vital Signs, click to edit/add: Last Vital Signs Temp 97.8 F 12/24/24 14:16 Pulse 86 12/24/24 15:29 Resp 20 12/24/24 14:16 BP 137/84 12/24/24 16:00 Pulse Ox 93 L 12/24/24 15:29 O2 Del Method Room Air 12/24/24 15:29 Course Vital Signs Vital signs: Vital Signs Temperature 97.8 F 12/24/24 14:16 Pulse Rate 95 H 12/24/24 14:16 Respiratory Rate 20 12/24/24 14:16 Blood Pressure 158/105 H 12/24/24 14:16 Pulse Oximetry 98 12/24/24 14:16 Oxygen Delivery Method Room Air 12/24/24 14:16 Temperature 97.8 F 12/24/24 14:16 Pulse Rate 86 12/24/24 15:29 Respiratory Rate 20 12/24/24 14:16 Blood Pressure 137/84 12/24/24 16:00 Pulse Oximetry 93 L 12/24/24 15:29 Oxygen Delivery Method Room Air 12/24/24 15:29 Medical Decision Making MDM Narrative Medical decision making narrative: The twelve-lead EKG is interpreted by me and shows sinus rhythm with a rate of 86 beats a minute. There is left axis deviation and late transition of the R wave. No acute ST elevation is noted. Cardiac workup is negative. Chest x-ray does not show infiltrate. Patient was treated with Solu-Medrol 40 mg IV and a DuoNeb aerosol treatment and feels improved. He was discharged with a prescription for Symbicort and albuterol and is advised early PCP follow-up with instructions to return for worsening symptoms. Lab Data Labs: Lab Results 12/24/24 Range/Units 14:34 WBC 14.3 H (4.0-11.0) 10^3/uL RBC 5.87 (4.70-6.10) 10^6/uL Hgb 17.0 (14.0-18.0) g/dL Hct 48.5 (42.0-54.0) % MCV 82.6 (80.0-94.0) fL MCH 29.0 (25.9-34.0) pg MCHC 35.1 (29.9-35.2) g/dL RDW 12.3 (11.0-15.0) % Plt Count 379 (150-450) 10^3/uL MPV 10.7 (9.5-13.5) fL Neut % (Auto) 68.8 (43.0-75.0) % Lymph % (Auto) 23.6 (20.5-60.0) % Navarro % (Auto) 5.6 (1.7-12.0) % Eos % (Auto) 1.2 (0.9-7.0) % Baso % (Auto) 0.6 (0.2-2.0) % Neut # (Auto) 9.8 H (1.4-6.5) 10^3/uL Lymph # (Auto) 3.4 (1.2-3.8) 10^3/uL Navarro # (Auto) 0.8 (0.3-0.8) 10^3/uL Eos # (Auto) 0.2 (0.0-0.7) 10^3/uL Baso # (Auto) 0.1 (0.0-0.1) 10^3/uL Abs Immat Gran (auto) 0.03 (0.00-0.03) 10^3/uL Imm/Tot Granulo (auto) 0.2 (0.0-0.5) % Sodium 132 L (136-145) mmol/L Potassium 3.8 (3.5-5.1) mmol/L Chloride 93 L (98-107) mmol/L Carbon Dioxide 28.5 (21.0-32.0) mmol/L Anion Gap 14.3 BUN 16.0 (7.0-18.0) mg/dL Creatinine 1.26 (0.70-1.30) mg/dL Est GFR ( Amer) >60 (>=60 mL/min/1.73m^2) Est GFR (Non-Af Amer) >60 (>=60 mL/min/1.73m^2) BUN/Creatinine Ratio 12.7 Glucose 371 H (74-106) mg/dL Calcium 10.7 H (8.5-10.1) mg/dL Total Bilirubin 0.6 (0.2-1.0) mg/dL AST 18 (15-37) U/L ALT 45 (16-63) U/L Alkaline Phosphatase 111 (46-116) U/L Troponin I High Sens 9.4 (4.0-76.1) pg/mL NT-Pro-B Natriuret Pep 50.0 (<=450.0) pg/mL Total Protein 8.2 (6.4-8.2) g/dL Albumin 4.1 (3.4-5.0) g/dL Globulin 4.1 g/dL Albumin/Globulin Ratio 1.0 Discharge Plan Discharge Chief Complaint: Shortness of Breath/Dyspnea Clinical Impression: Acute exacerbation of chronic obstructive pulmonary disease Patient Disposition: Home, Self-Care Time of Disposition Decision: 16:46 Condition: Good Mode of Transportation: Private Vehicle Prescriptions / Home Meds: New budesonide-formoterol [Symbicort] 160-4.5 mcg/actuation HFA aerosol inhaler 2 inh inhalation BID Qty: 10.2 0RF albuterol sulfate 90 mcg/actuation HFA aerosol inhaler 2 inh inhalation Q6H PRN (Reason: shortness of breath or wheezing) Qty: 8.5 2RF No Action metoprolol tartrate 50 mg tablet 50 mg PO BID albuterol sulfate 2.5 mg /3 mL (0.083 %) solution for nebulization 2.5 mg inhalation Q6H PRN (Reason: shortness of breath or wheezing) Qty: 90 0RF amlodipine 10 mg tablet 10 mg PO DAILY insulin glargine [Lantus Solostar U-100 Insulin] 100 unit/mL (3 mL) insulin pen 25 unit SUBCUT QAM insulin lispro [Humalog KwikPen Insulin] 100 unit/mL insulin pen SUBCUT Rx Instructions: 10 UNITS BEFORE BREAKFAST 12 UNITS BEFORE LUNCH 14 UNITS BEFORE DINNER losartan-hydrochlorothiazide 50-12.5 mg tablet 1 tab PO DAILY metformin 500 mg tablet 1,000 mg PO BID nicotine 14 mg/24 hr patch 24 hour 1 patch topical DAILY Print Language: Solomon Islander Instructions: COPD (Chronic Obstructive Pulmonary Disease) (ED) Additional Instructions: Medications as prescribed. Monitor your blood glucose levels closely. Return for worsening symptoms. Referrals: Physician,Non-Staff, MD [Primary Care Provider] - 1 week Discharge Date/Time: 12/24/24 17:01
--- NOTE | 2024-12-24 14:20 | ECG_ITS ---
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 Measurements Intervals Marion Rate: 86 P: 53 ID: 160 QRS: -76 QRSD: 110 T: 66 QT: 358 QTc: 402 Interpretive Statements 1100 Sinus rhythm 7200 Abnormal left axis deviation 8003 Consistent with pulmonary disease 9150 abnormal ECG Compared to ECG 10/09/2023 16:03:58 Left-axis deviation now present Left anterior fascicular block no longer present Electronically Signed On 12-24-2024 18:35:14 EDT by UMU LUTZ M.D.
[2024-12-24 14:34] VITALS: BP 140/107
[2024-12-24 14:42] LABS: Basophils Absolute Auto 0.1 10^3/uL (0.0-0.1); Basophils Percent Auto 0.6 % (0.2-2.0); Eosinophils Absolute Auto 0.2 10^3/uL (0.0-0.7); Eosinophils Percent Auto 1.2 % (0.9-7.0); Hematocrit 48.5 % (42.0-54.0); Immature Granulocytes Abs Auto 0.03 10^3/uL (0.00-0.03); Immature Granulocytes Pct Auto 0.2 % (0.0-0.5); Lymphocytes Absolute Auto 3.4 10^3/uL (1.2-3.8); Lymphocytes Percent Auto 23.6 % (20.5-60.0); Mean Corpuscular HGB Conc 35.1 g/dL (29.9-35.2); Mean Corpuscular Volume 82.6 fL (80.0-94.0); Mean Platelet Volume 10.7 fL (9.5-13.5); Monocytes Absolute Auto 0.8 10^3/uL (0.3-0.8); Monocytes Percent Auto 5.6 % (1.7-12.0); Neutrophils Absolute Auto 9.8 10^3/uL (1.4-6.5); Neutrophils Percent Auto 68.8 % (43.0-75.0); Platelet Count 379 10^3/uL (150-450); Red Blood Count 5.87 10^6/uL (4.70-6.10); Red Cell Distribution Width 12.3 % (11.0-15.0); White Blood Count 14.3 10^3/uL (4.0-11.0)
--- NOTE | 2024-12-24 14:45 | XR_ITS ---
[address] [address] Patient Name: SHIRLEY MATHEW MRN: [id number] date: 1980 Sex: M Assigned Patient Location: ER Current Patient Location: ER Accession/Order Number: [id number] Exam Date: 12/24/2024 14:58 Report Date: 12/24/2024 14:59 At the request of: PHIL KABA MD Procedure: XR chest 1V XR chest 1V 12/24/2024 2:50 PM SIGNS AND SYMPTOMS: ^sob PROTOCOL: Frontal radiograph of the chest COMPARISON: 10/09/2023 FINDINGS: The trachea is midline. The heart and mediastinal structures are within normal limits. The lung parenchyma is clear. The bony thorax is intact. XR/XR chest 1V IMPRESSION: No acute cardiopulmonary pathology. Impression dictated by: Eloy Mireles M.D. 12/24/2024 2:59 PM Dictation Location: [place] [address] Electronically authenticated by: [id number] Y Date: 12/24/2024 14:59
[2024-12-24 15:00] VITALS: BP 122/98
[2024-12-24 15:11] LABS: Troponin I High Sensitivity 9.4 pg/mL (4.0-76.1)
[2024-12-24] MEDS: METHYLPREDNISOLONE SOD SUCC PF 40 MG/ML VIAL IVP (15:16)
[2024-12-24 15:21] LABS: Alanine Aminotransferase 45 U/L (16-63); Albumin Level 4.1 g/dL (3.4-5.0); Alkaline Phosphatase 111 U/L (46-116); Anion Gap 14.3; Aspartate Amino Transferase 18 U/L (15-37); BUN Creatinine Ratio 12.7; Bilirubin Total 0.6 mg/dL (0.2-1.0); Calcium 10.7 mg/dL (8.5-10.1); Carbon Dioxide 28.5 mmol/L (21.0-32.0); Chloride 93 mmol/L (98-107); Estimated GFR (African America >60 (>=60 mL/min/1.73m^2); Estimated GFR (Non-African Ame >60 (>=60 mL/min/1.73m^2); Globulin 4.1 g/dL; Glucose 371 mg/dL (74-106); Potassium 3.8 mmol/L (3.5-5.1); Sodium 132 mmol/L (136-145); Total Protein 8.2 g/dL (6.4-8.2)
[2024-12-24] MEDS: IPRATROPIUM/ALBUTEROL SULFATE 3 ML AMPUL.NEB IH (15:28)
[2024-12-24 15:29] VITALS: PULSE 86; O2SAT 93
[2024-12-24 15:30] VITALS: BP 137/95
[2024-12-24 16:00] VITALS: BP 137/84
== END 2024-12-24 17:01 | disposition home or self-care (01) ==
PROVIDERS: Emergency Provider Emergency Medicine
DX: J44.1 Chronic obstructive pulmonary disease with (acute) exacerbation (principal); R06.02 Shortness of breath; I10 Essential (primary) hypertension; E11.9 Type 2 diabetes mellitus without complications; Z87.891 Personal history of nicotine dependence; Z79.4 Long term (current) use of insulin; Z79.84 Long term (current) use of oral hypoglycemic drugs
CPT/HCPCS: 36415; 71045; 80053; 83880; 84484; 85025; 93005; 94640; 96374; 99285; J2919

== ENCOUNTER 2025-01-07 22:54 | Emergency (ER) | payer OTHER, SELFPAY ==
--- OUTSIDE RECORDS SUMMARY | 2025-01-07 22:58 | XMS_ITS | Encounter Summary ---
Author Organization [facility] Address [address] [place] [address] Care Team Providers Care Polymerization Helper Name Role Phone Unavailable Primary Care Provider Unavailabl e Reason for Visit * Reason Comments Med Refill Encounter Details Date Type Department Care Team (Late st Contact Info) Description 12/24/2024 Refill [facility] [address] [place] [address] Mee Egan MD [address] [place] [address] Type 2 diabetes mellitus with hyperglycemia, unspecified whether shelter insulin use (CMS/HCC) Social History Tobacco Use Types Packs/Day Years Used Date Smoking Tobacco: Every Day Cigarettes Alcohol Use Standard Drinks/Week Comments Not Currently 0 (1 standard drink = 0.6 oz pur e alcohol) Sex and Gender Information Value Date Recorded Sex Assigned at Not on file Legal Sex Male 8:12 PM EDT Gender Identity Not on file Sexual Orientation Not on file documented as of this encounter Miscellaneous Notes * Telephone Encounter - Giana Dick LPN - 12/25/2024 8:35 AM EDT MEDICATION SENT TO PHARMACY. documented in this encounter Plan of Treatment Not on file documented as of this encounter Visit Diagnoses Diagnosis Type 2 diabetes mellitus with hyperglycemia, unspecified whether shelter insulin use (CMS/HCC) documented in this encounter
--- OUTSIDE RECORDS SUMMARY | 2025-01-07 22:58 | XMS_ITS | Clinical Summary ---
Author Organization [facility] Address [address] [place] [address] Care Team Providers Care Paper Wood Cutter Name Role Phone Mukund Galdamez DO Primary Care Provider Unavaila ble Allergies No known active allergies Medications metoprolol tartrate (LOPRESSOR) 50 MG tablet Take 50 mg by mouth 2 times daily Active amLODIPine (NORVASC) 10 MG tablet Take 10 mg by mouth daily Active ALPRAZolam (XANAX) 0.25 MG tablet Take 0.25 mg by mouth nightly as needed for Sleep. Active ibuprofen (ADVIL;MOTRIN) 200 MG tablet Take 400 mg by mouth every 6 hours as needed for Pain Active ondansetron (ZOFRAN) 4 MG tablet Take 1 tablet by mouth every 12 hours as needed for Nausea or Vomiting 10 tablet 06/13/2019 Active naproxen (NAPROSYN) 500 MG tablet Take 1 tablet by mouth 2 times daily (with meals) 60 tablet 07/01/2019 Active acetaminophen (TYLENOL) 500 MG tablet Take 2 tablets by mouth 3 times daily 60 tablet 07/01/2019 Active Active Problems Problem Noted Date Diagnosed Date Extensive tattoos 06/08/2019 Choledocholithiasis 06/07/2019 Abdominal pain 06/07/2019 Abdominal pain, epigastric 06/06/2019 Cholecystitis, acute with cholelithiasis 019 Acute cholecystitis 06/06/2019 Anxiety state 12/22/2017 Other chest pain 12/22/2017 Essential hypertension 05/25/2015 Obesity 02/09/2015 Smoking 02/09/2015 Acute appendicitis 04/25/2013 Gallstone pancreatitis Immunizations Immunization Administration Dates Next Due TDaP, ADACEL (age 10y-64y), BOOSTRIX (age 10y+), IM, 0.5mL 09/06/2016 Social History Tobacco Use Types Packs/Day Years Used Date Smoking Tobacco: Every Day Cigarettes 1 17 Smokeless Tobacco: Never Tobacco Cessation:Ready to Q uit: Yes; Counseling Given: No Alcohol Use Standard Drinks/Week Comments Yes 0 (1 standard drink = 0.6 oz pur e alcohol) very rarely Sex and Gender Information Value Date Recorded Sex Assigned at Not on file Legal Sex Male 5:07 PM EST Gender Identity Not on file Sexual Orientation Not on file Last Filed Vital Signs Vital Sign Reading Time Taken Comments Blood Pressure 179/94 06/09/2021 5:45 AM EDT Pulse 97 06/09/2021 4:52 AM EDT Temperature 36.1 C (97 F) 06/09/2021 4:52 AM EDT Respiratory Rate 20 06/09/2021 5:24 AM EDT Oxygen Saturation 97% 06/09/2021 6:18 AM EDT Inhaled Oxygen Concentration - - Weight 117.9 kg (260 lb) 06/09/2021 4:52 AM EDT Height 177.8 cm (5' 10 ) 07/01/2019 5:52 PM EST Body Mass Index 37.31 07/01/2019 5:52 PM EST Plan of Treatment Not on file Medical Devices Implanted Type Area Steam Hand Device Identifier Shelf Expiration Date Model / Serial / Lot Clip Lg Window Decorator Hem-[employer]Norm[employer] Polymer Endo Ster Pk/6 Implanted:Qty: 1 on 06/12/2019 by Phuc Vanessa MD at [facility] [employer] 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 05/17/2012 Insurance [facility] * Guarantor: Devon Oro Account Type Relation to Patient Date of Phone Billing Address Workers Comp Self 1980 [address] [place] [address] Advance Directives * Full Code (Latest Code Status on File) Date Activated Date Inactivated Comments 06/08/2019 12:09 AM 06/13/2019 5:36 PM * Full Code Date Activated Date Inactivated Comments 06/06/2019 11:02 PM 06/07/2019 5:24 PM * Full Code Date Activated Date Inactivated Comments 04/25/2013 9:50 PM 04/26/2013 2:03 PM * Full Code Date Activated Date Inactivated Comments 04/25/2013 5:52 PM 04/25/2013 9:50 PM Care Teams Paper Wood Cutter Relationship Specialty Start Date End Date Mukund Galdamez DO PCP - General 04/25/13
--- OUTSIDE RECORDS SUMMARY | 2025-01-07 22:58 | XMS_ITS | Clinical Summary ---
Author Organization [facility] Healthcare Address [address] [place] [address] Care Team Providers Care Disability Attorney Name Role Phone Unavailable Primary Care Provider Unavailabl e Allergies Active Allergy Reactions Criticality Noted Date Comments Tramadol GI intolerance 02/08/2018 Medications metFORMIN (Glucophage) 500 MG tabletIndications :Type 2 diabetes mellitus with hyperglycemia (CMS/HCC) TAKE 2 TABLETS BY MOUTH 2 TIMES PER DAY WITH MEALS 360 tablet 1 08/20/19 25 Active amLODIPine (Norvasc) 10 MG tablet Take 10 mg by mouth Daily Active aspirin 81 MG EC tablet Take 81 mg by mouth in the morning. 10/23/19 24 Active atorvastatin (Lipitor) 40 MG tablet Take 40 mg by mouth in the morning. 10/23/19 24 Active Continuous Glucose Storage Battery Charger (FreeStyle Adriane 3 [place]) device USE DIRECTED. 07/22/20 24 Active hydrOXYzine pamoate (Vistaril) 25 MG capsule Take 1 capsule by mouth in the morning and 1 capsule in the evening and 1 capsule before bedtime. DURING THE DAY, AND 2 AT BEDTIME ONCE A DAY. 07/02/20 24 Active Lantus SoloStar 100 UNIT/ML pen Inject 25 Units under the skin Active B-D UF III MINI PEN NEEDLES 31G X 5 MM misc Inject 1 each under the skin in the morning and 1 each at noon and 1 each in the evening and 1 each before bedtime. 12/05/19 24 Active losartan-hydroCHL OROthiazide (Hyzaar) 50-12.5 MG tablet Take 1 tablet by mouth Daily Active metoprolol tartrate (Lopressor) 50 MG tablet Take 50 mg by mouth in the morning and 50 mg before bedtime. 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 (CMS/HCC) CHANGE SENSOR EVERY 14 DAYS 2 each 1 08/14/19 25 025 Discontinued Encounters Date Type Department Care Team Description 12/24/2024 Refill [facility] [address] [place] [id number] Mee Egan MD Type 2 diabetes mellitus with hyperglycemia, 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 (CMS/HCC) from Last 3 Months Immunizations Immunization Administration Dates Next Due Tdap 09/06/2016 Family History Medical History Relation Name Comments Diabetes Mother Heart disease Mother Hypertension Mother Relation Name Status Comments Father Unknown Mother Alive Social History Tobacco Use Types Packs/Day Years Used Date Smoking Tobacco: Every Day Cigarettes Tobacco Cessation:Ready to Q uit: Not Asked; Counseling Given: Not Answered Alcohol Use Standard Drinks/Week Comments Not Currently 0 (1 standard drink = 0.6 oz pur e alcohol) Sex and Gender Information Value Date Recorded Sex Assigned at Not on file Legal Sex Male 8:12 PM EDT Gender Identity Not on file Sexual Orientation Not on file Last Filed Vital Signs Vital Sign Reading Time Taken Comments Blood Pressure 122/64 11/29/2023 1:15 PM EDT Pulse 80 11/29/2023 1:15 PM EDT Temperature - - Respiratory Rate 18 11/29/2023 1:15 PM EDT Oxygen Saturation 92% 11/29/2023 1:15 PM EDT Inhaled Oxygen Concentration - - Weight 110 kg (243 lb) 11/29/2023 1:15 PM EDT Height 177.8 cm (5' 10 ) 11/29/2023 1:15 PM EDT Body Mass Index 34.87 11/29/2023 1:15 PM EDT Plan of Treatment Not on file Insurance [facility]
--- OUTSIDE RECORDS SUMMARY | 2025-01-07 22:58 | XMS_ITS | Clinical Summary ---
Author Organization [employer] tem Address [id number] [address] [place] [address] Care Team Providers Care Car Bracer Name Role Phone Deepika Grigsby COMBATANT SWIMMER-BARREL DEDENTING MACHINE OPERATOR Primary Care Provider +1- [phone] Allergies Active Allergy Reactions Criticality Noted Date Comments Tramadol GI Disturbance 02/08/2018 Medications amLODIPine (NORVASC) 10 mg tablet Take 1 tablet (10 mg total) by mouth. Active ibuprofen (ADVIL,MOTRIN) 600 mg tablet Take 1 tablet (600 mg total) by mouth. 3 Active metoprolol tartrate (LOPRESSOR) 50 mg tablet Take 1 tablet (50 mg total) by mouth. Active aspirin 81 mg Take 1 tablet (81 mg total) by mouth in the morning. 4 Active atorvastatin (LIPITOR) 40 mg tablet Take 1 tablet (40 mg total) by mouth in the morning. 4 Active losartan-hydroC HLOROthiazide (HYZAAR) 50-12.5 mg per tablet Take 1 tablet by mouth in the morning. Active nicotine (NICODERM CQ) 21 mg/[address] 1 patch on the skin daily. 4 Active NIFEdipine CC (ADALAT CC) 90 MG 24 hr tablet Take 1 tablet (90 mg total) by mouth in the morning. 4 Active metFORMIN (GLUCOPHAGE) 500 mg tablet Take 2 tablets (1,000 mg total) by mouth in the morning and 2 tablets (1,000 mg total) in the evening. Take with meals. 4 Active albuterol (PROVENTIL,VENT SYDNIE) 2.5 mg /3 mL (0.083 %) nebulizer solution Inhale 3 mL (2.5 mg total) by nebulization every 6 (six) hours as needed for shortness of breath or wheezing. 4 Active FREESTYLE DAMIEN 3 SENSOR device CHANGE SENSOR EVERY 14 DAYS 4 Active HumaLOG KwikPen Insulin 100 unit/mL insulin pen Inject under the skin. Active LANTUS SOLOSTAR U-100 INSULIN 100 unit/mL (3 mL) insulin pen Inject under the skin daily. Active fluticasone-ume clidin-vilanter (TRELEGY ELLIPTA) 200-62.5-25 mcg blister with deviceIndicatio ns:Centrilobula r emphysema (CMS-HCC) Inhale 1 puff in the morning. 60 each 11 4 Active Active Problems Problem Noted Date Diagnosed Date Primary hypertension 12/21/2023 Type 2 diabetes mellitus, wi thout long-term current use of insulin 12/21/2023 Social History Tobacco Use Types Packs/Day Years Used Date Smoking Tobacco: Every Day Cigarettes 1.9 31.4 Started: 1993 Smokeless Tobacco: Never Tobacco Cessation:Ready to Q uit: Not Asked; Counseling Given: Not Answered Alcohol Use Standard Drinks/Week Comments Never 0 (1 standard drink = 0.6 oz pur e alcohol) Childcare Answer Date Recorded Childcare Unknown 01/14/2019 Employment Answer Date Recorded Employment Unknown 01/14/2019 Purpose - Life Answer Date Recorded Purpose and direction in life Unknown Sex and Gender Information Value Date Recorded Sex Assigned at Not on file Legal Sex Male 3:14 PM EDT Gender Identity Not on file Sexual Orientation Not on file Last Filed Vital Signs Vital Sign Reading Time Taken Comments Blood Pressure 147/90 12/21/2023 1:55 PM EDT Pulse 76 12/21/2023 1:55 PM EDT Temperature 36.9 C (98.4 F) 02/08/2018 8:09 PM EDT Respiratory Rate 16 02/08/2018 8:09 PM EDT Oxygen Saturation 95% 12/21/2023 1:55 PM EDT Inhaled Oxygen Concentration - - Weight 113.3 kg (249 lb 12.8 oz) 12/21/2023 1:55 PM EDT Height 177.8 cm (5' 10 ) 12/21/2023 1:55 PM EDT Body Mass Index 35.84 12/21/2023 1:55 PM EDT Plan of Treatment Health Maintenance Due Date Last Done Comments Diabetic Ophthalmology Exam 1981 Statin Use: Diabetic 1981 Tobacco Counseling 1981 Depression Screening 1993 Adult BMI Follow Up Plan 1999 Diabetic Foot Exam 1999 Adult BMI Screening 12/20/2024 12/21/2023 Tobacco Screening 12/20/2024 12/21/2023 Influenza Vaccine 04/07/2025 04/21/2017, , 2015 DTaP,Tdap and Td Vaccines (2 - Td or Tdap) 09/06/2026 09/06/2016 Medical Devices Not on file Insurance [facility] [employer] Care Teams Car Bracer Relationship Specialty Start Date End Date Deepika Grigsby APRN-BARREL DEDENTING MACHINE OPERATOR [address] [place] [address] PCP - General Family Medicine 10/27/23
--- OUTSIDE RECORDS SUMMARY | 2025-01-07 22:58 | XMS_ITS | Encounter Summary ---
Author Organization [employer] tem Address [id number] [address] [place] [address] Care Team Providers Care Handle Turner Name Role Phone Deepika Grigsby DESK MAKER-ELECTRICAL UNIT REBUILDER Primary Care Provider [phone]- [phone] Encounter Details Date Type Department Care Team (Late st Contact Info) Description 10/26/2023 Orders Only [facility] [address] [phone] Carolynn Feldman, ARLENE SOB (shortness of breath) (Primary Dx); Cough, unspecified type Social History Tobacco Use Types Packs/Day Years Used Date Smoking Tobacco: Never Assessed Childcare Answer Date Recorded Childcare Unknown 01/14/2019 Employment Answer Date Recorded Employment Unknown 01/14/2019 Purpose - Life Answer Date Recorded Purpose and direction in life Unknown Sex and Gender Information Value Date Recorded Sex Assigned at Not on file Legal Sex Male 3:14 PM EDT Gender Identity Not on file Sexual Orientation Not on file documented as of this encounter Plan of Treatment Not on file documented as of this encounter Results * X-ray chest 2 views (10/30/2023 11:11 AM EDT) Anatomical Region Laterality Modality Chest N/A Computed Radiogr aphy 10/30/2023 11:1 7 AM EDT Narrative 10/30/2023 11:17 AM EDT PA and lateral chest: HISTORY: Shortness of breath and cough. 2 views of the chest are obtained. Cardiac and mediastinal contours are within normal limits. Clear. There is no vascular congestion or effusion. Osseous structures appear intact. IMPRESSION: No acute findings. Finalized by Sagar Mario MD on 10/30/2023 11:17 AM Procedure Note Sagar Mario MD - 10/30/2023 PA and lateral chest: HISTORY: Shortness of breath and cough. 2 views of the chest are obtained. Cardiac and mediastinal contours arewithin normal limits. Clear. There is no vascular congestion or effusion.Osseous structures appear intact. IMPRESSION: No acute findings. Finalized by Sagar Mario MD on 10/30/2023 11:17 AM Eli Bonilla DO IMG DIAGNOSTIC IMAGING ORDERA BLES Final Result * SPIROMETRY PRE/POST BRONCHODILATOR AND DLCO AND PLETHYSMOGRAPHY (10/30/2023 11:02 AM EDT) Narrative MANUALLY TRANSCRIBED RESULTS - 11/14/2023 5:58 PM EDT Patient gave good effort and data is reproducible FEV1/FVC is 76 with FEV1 80% of predicted or 3.08 L and forced vital capacity 83% predicted or 4.18 L. there is 10% improvement in FEV1 post bronchodilator Vital capacity is 80% of predicted or 4.08 L with residual volume 57% of predicted or 1.18 L. Diffusion capacity is moderately reduced at 59 Impression: Mild obstructive airflow defect is demonstrated. Post bronchodilator response is not statistically significant. There is moderate reduction in gas transfer. This can be seen in underlying emphysema, early interstitial lung disease, anemia, pulmonary vascular disease or pulmonary hypertension. Please correlate with clinical and radiographic data us Eli Bonilla DO PFT ORDERABLES Final Result MANUALLY TRANSCRIBED RESULTS documented in this encounter Visit Diagnoses Diagnosis SOB (shortness of breath)- Primary Shortness of breath Cough, unspecified type SOB (shortness of breath) Shortness of breath Cough, unspecified type SOB (shortness of breath) Shortness of breath Cough, unspecified type documented in this encounter Care Teams Handle Turner Relationship Specialty Start Date End Date Deepika Grigsby APRN-FNP [address] [place] [id number] PCP - General Family Medicine 10/27/23 documented as of this encounter
--- OUTSIDE RECORDS SUMMARY | 2025-01-07 22:58 | XMS_ITS | Encounter Summary ---
Author Organization [employer] tem Address [id number] [address] [place] [address] Care Team Providers Care Roller Die Cutting Machine Operator Name Role Phone Deepika Grigsby FINANCIAL QUANTITATIVE ANALYST-SPECIAL LOAN OFFICER Primary Care Provider [phone]- [phone] Encounter Details Date Type Department Care Team (Late st Contact Info) Description 10/26/2023 Telephone [facility] [address] [address] Katt Barnett Social History Tobacco Use Types Packs/Day Years [...] encounter Miscellaneous Notes * Telephone Encounter - Katt Barnett - 10/26/2023 11:00 AM EDT New PT apt for 12/21/2023 with SE at [facility] for SOB (shortness of breath) Chronic cough Please place order for PFT & cx Thank You for all you do * Telephone Encounter - Carolynn Feldman RN - 10/26/2023 11:00 AM EDT Orders placed. Placed CXR & PFT order placed in outgoing mail to patient. Thanks documented in this encounter Plan of Treatment Not on file documented as of this encounter Visit Diagnoses Not on filedocumented in this encounter Care Teams Roller Die Cutting Machine Operator Relationship Specialty Start Date End Date Deepika Grigsby APRN-GERMAINE [address] [place] [address] PCP - General Family Medicine 10/27/23 documented as of this encounter
--- OUTSIDE RECORDS SUMMARY | 2025-01-07 22:59 | XMS_ITS | CCD ---
Author Organization [facility] Care Team Providers Care Retail Support Specialist Name Role Phone Rodrick Galdamez Primary Care Provider [phone] ARMAAN LEVI Referring Unavailable RODRICK GALDAMEZ Primary Care Unavailable MACIEL PRAJAPATI Consulting Unavailable KAMERON ENNIS Attending Unavailable KAMERON ENNIS Admitting Unavailable BOB YEUNG Consulting Unavailable ABHISHEK VANESSA Consulting Unavailable KULDIP, DR MORRISON Attending Unavailable BENJAMIN, DR STEVE LISTED Primary Care Unavaila peng STEWART, DR SORAYA Benz Consulting Unavailable KULDIP, DR MORRISON Admitting Unavailable EVI MOROCHO Consulting Unavailable Rodrick Galdamez DO Primary Care Provider [phone] LINETTE TAPIA Attending Unavailable RODRICK GALDAMEZ Primary Care Unavailable MICHEAL KWOK Attending Unavailable RODRICK GALDAMEZ Primary Care Unavailable HATTIE SHANE Primary Care Physician ELI BONILLA Attending Unavailable ELI BONILLA Referring Unavailable DAVID, [place] Primary Care Unavailable ELI BONILLA Attending Unavailable ELI BONILLA Referring Unavailable DAVID, [place] Primary Care Unavailable ELI BONILLA Attending Unavailable DAVID, AMOL Referring Unavailable DAVID, [place] Primary Care Unavailable [facility], [place] Primary Care Physician NONE, XXXX Primary Care Physician Unavailab Vickie Carrasco Admitting Unavailable GHAZALMO HATTIE Primary Care Unavailable [place] PAN Consulting Unavailable Daron SIFUENTES Attending Unavailable [place] PAN Consulting Unavailable [place] PAN Consulting Unavailable Tan Dempsey Attending Unavailable [facility], [place] Primary Care Unavailable John Saldana Attending Unavailable [facility], [place] Primary Care Unavailable Jamarcus Lerma Attending Unavailable Tan Dempsey Attending Unavailable Tan Shannon Referring Unavailable Tan Shannon Attending Unavailable Tan Shannon Admitting Unavailable Tan Shannon Attending Unavailable Tan Shannon Referring Unavailable Tan Shannon Admitting Unavailable Tan Shannon Attending Unavailable Jamarcus Lerma Attending Unavailable David 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[employer]AT CAPTAIN, Kuna Primary Care Provider Allergies Allergy Classification Reported Allergen(s) Allergy Type Date of Onset Reaction(s) Facility (4 sources) traMADol; Translations: [TRAMADOL] Drug Allergy 8 GI Disturbance [facility] Repository (3 sources) No Known Medication Allergies; Translations: [No Known Medication Allergies] Propensity to adverse reactions (disorder) [facility] Repository Medications Current Medications Medication Drug Class(es) [...] / HYDROcodone bitartrate 5 mg oral tablet (2 sources) Opioid Agonist Start: 07-30-2024 End: 08-01-2024 Farwell 325 mg-5 mg oral tablet 1 tab(s), Oral, q6hr as needed for pain, 10 tab(s), Refill(s) 0, [facility]/pharmacy #[id number], 149, cm, 07/30/24 7:45:00 EST, Height/Length Dosing, 119.5, kg, 07/30/24 7:45:00 EST, Weight Dosing Start Date: 07/30/24 Stop Date: 08/01/24 Status: Ordered Start: 06-13-2019 End: 06-20-2019 take 1 tablet [...] for 2 day(s), 8 tab(s), Refill(s) 0, [facility]/pharmacy #[id number], 177.1, cm, 04/09/24 12:59:00 EDT, Height/Length Dosing, 124.7, kg, 04/09/24 12:59:00 EDT, Weight Dosing Start Date: 04/09/24 Stop Date: 04/11/24 Status: Ordered ALPRAZolam 0.25 mg oral tablet (8 sources) Benzodiazepine Start: 06-10-2019 take 0.25 mg by mouth once daily as needed for sleep 0.25 mg, Oral, NIGHTLY PRN, Sleep, Starting Mon06/10/19 at 2100 Start: 06-07-2019 take 0.25 mg by mout h once daily as needed for sleep 0.25 mg, Oral, NIGHTLY PRN, Sleep, Starting Mon06/07/19 at 2100 Start: 12-11-2017 End: 12-21-2023 ALPRAZolam (XANAX) 0.5 mg ta blet 12/11/2017 12/21/2023 Discontinued take 1 tablet by [place] th once daily as needed for sleep ALPRAZolam (XANAX) 0.25 MG tablet Take 0.25 mg by mouth nightly as needed for Sleep. 0 Active amLODIPine 10 mg oral tablet (15 sources) Dihydropyridine Calcium Channel Navarro Start: 06-11-2019 take 1 tablet by mouth once daily amLODIPine 10 mg Tab 10 mg = 1 tab(s), Oral, Daily, Refills(s) 0 Start Date: 10/21/23 Status: Ordered Start: 06-10-2019 End: 06-10-2019 take 5 mg by mouth once daily 5 mg, Oral, DAILY, First dose on Mon06/10/19 at 1300 Start: 06-07-2019 take 5 mg by mouth once daily 5 mg, Oral, DAILY, First dose on Mon06/07/19 at 0900 aspirin 81 mg delayed release oral tablet (7 sources) Platelet Aggregation Inhibitor, Nonsteroidal Anti-inflammatory Drug Start: 10-23-2023 take 1 tablet by mouth in the morning aspirin 81 mg Take 1 tablet (81 mg total) by mouth in the morning. 10/23/2023 Active atorvastatin 40 mg oral tablet (7 sources) HMG-CoA Reductase Inhibitor Start: 10-23-2023 take 1 tablet by mouth in the morning atorvastatin (LIPITOR) 40 mg tablet Take 1 tablet (40 mg total) by mouth in the morning. 10/23/2023 Active benzonatate 100 mg oral capsule (3 sources) [...] BID, # 14 cap(s), Refills(s) 0, Pharmacy: [facility]/pharmacy #[id number], 178, cm, 10/21/23 18:51:00 EDT, Height/Length [...] daily 60 tablet 0 06/06/2019 06/10/2019 Discontinued poaqatobgsd-mejxhrdqi-fzofti er (TRELEGY ELLIPTA) 200-62.5-25 mcg blister with device (2 sources) Start: 12-21-2023 take 1 puff(s) by inhalation in the morning nxodbundwjr-jltwytttr-llhnhxtw (TRELEGY ELLIPTA) 200-62.5-25 mcg blister with device Indications: Centrilobular emphysema (CMS-HCC) Inhale 1 puff in the morning. 60 each 11 12/21/2023 Active FREESTYLE DAMIEN 3 SENSOR dev ice (2 sources) Start: 11-30-2023 FREESTYLE DAMIEN 3 SENSOR dev ice CHANGE SENSOR EVERY 14 DAYS 11/30/2023 Active hydroCHLOROthiazide 12.5 mg / losartan potassium 100 mg oral tablet (7 sources) T h i a z i d e D i u r e t i c , A n g i o t e n s i n 2 R e c e p t o r B l o c k e r Start: 10-23-2023 hydrochlorothiazide-losartan 12.5 mg-100 mg oral tablet 1 tab(s), Oral, Daily, 90 tab(s), Refill(s) 0, [facility]/pharmacy #[id number], 178, cm, 10/21/23 18:51:00 EDT, Height/Length Dosing, 120, kg, 10/21/23 18:51:00 EDT, Weight Dosing Start Date: 10/23/23 Status: Ordered take 1 tablet by once in the morning losartan-hydroCHLOROthiazide (HYZAAR) 50 -12.5 mg per tablet Take 1 tablet by mouth in the morning. Active HYDROmorphone (DILAUDID) injection 0.25 mg (1 source) Start: 06-06-2019 HYDROmorphone (DILAUDID) injection 0.25 mg ibuprofen 600 mg oral tablet (5 sources) Nonsteroidal Anti-inflammatory Drug Start: 07-19-2013 ibuprofen (ADVIL,MOTRIN) 600 mg tablet Take 1 tablet (600 mg total) by mouth. 07/19/2013 Active take 2 tablets by mo [facility] every six hours as needed for pain ibuprofen (ADVIL;MOTRIN) 200 MG tablet T rocío 400 mg by mouth every 6 hours as needed for Pain 0 Active 3 ml insulin glargine 100 unt/ml pen injector (4 sources) Insulin Analog Start: 07-26-2024 Lantus Solosta r Pen 100 units/mL subcutaneous solution 25 unit(s), SubCutaneous, Daily, Blood glucose Start Date: 07/26/24 Status: Ordered Start: 07-26-2024 inject 10 [IU] by chapman bcutaneous injection at bedtime Lantus Solostar Pen 100 units/mL subcutaneous solution 10 unit(s), SubCutaneous, Bedtime, Blood glucose Start Date: 07/26/24 Status: Ordered LANTUS SOLOSTAR U-100 INSULIN 100 unit/mL (3 mL) insulin pen Inject under the skin daily. Active 3 ml insulin lispro 100 unt/ml pen injector (4 sources) Insulin Analog Start: 07-26-2024 inject 7 [IU] by subcutaneous injection twice daily HumaLOG KwikPen 100 units/mL injectable solution See Instructions, 7 unit(s) SubCutaneous BID, Blood glucose Start Date: 07/26/24 Status: Ordered Start: 07-26-2024 inject 7 [IU] by sub cutaneous injection twice daily HumaLOG KwikPen 100 units/mL injectable solution 7 unit(s), SubCutaneous, BID, Blood glucose Start Date: 07/26/24 Status: Ordered HumaLOG KwikPen Insulin 100 unit/mL insulin pen Inject under the skin. Active 100 ml magnesium sulfate 10 mg/ml injection (2 sources) Start: 06-06-2019 magnesium sulf ate 1 g in dextrose 5% 100 mL IVPB metFORMIN hydrochloride 500 mg oral tablet (7 sources) Biguanide Start: 10-23-2023 take 2 tablets by mouth in the morning, then take 2 tablets by mouth at mealtime metFORMIN (GLUCOPHAGE) 500 mg tablet Take 2 tablets (1,000 mg total) by mouth in the morning and 2 tablets (1,000 mg total) in the evening. Take with meals. 10/23/2023 Active Start: 10-23-2023 take 1 tablet by [place] twice daily metformin 500 mg Tab 500 mg = 1 tab(s), Oral, BID, # 60 tab(s), Refills(s) 0, [id number] 178, cm, 10/21/23 18:51:00 EDT, Height/Length Dosing, 120, kg, 10/21/23 18:51:00 EDT, Weight Dosing Start Date: 10/23/23 Status: Ordered methocarbamol 750 mg oral tablet (1 source) Muscle Relaxant Start: 04-04-2024 End: 04-07-2024 take 1 tablet by mouth three times daily Robaxin-750 oral tablet 1,500 mg = 2 tab(s), Oral, TID, X 3 day(s), # 18 tab(s), Refills(s) 0, [id number], 177.1, cm, 04/04/24 12:32:00 EDT, Height/Length [...] mg metoprolol tartrate 50 mg oral tablet (17 sources) beta-Adrenergic Navarro Start: 06-09-2019 metopr olol (LOPRESSOR) injection 5 mg Start: 06-06-2019 End: 10-23-2023 take 1 tablet by mouth twice daily Metoprolol tartrate 50 mg Tab 50 mg = 1 tab(s), Oral, BID, Refills(s) 0 Start Date: 10/21/23 Status: Ordered morphine (PF) injection 2 mg (1 source) Start: 06-12-2019 morphine (PF) injection 2 mg naproxen 500 mg oral tablet (4 sources) Nonsteroidal Anti-inflammatory Drug Start: 04-04-2024 take 1 tablet by mouth twice daily as needed for pain Naprosyn 500 mg Tab 500 mg = 1 tab(s), Oral, BID, PRN for pain, # 20 tab(s), Refills(s) 0, Pharmacy: [id number], 177.1, cm, 04/04/24 12:32:00 EDT, Height/Length Dosing, 124.7, kg, 04/04/24 12:32:00 EDT, Weight Dosing Start Date: 04/04/24 Status: Ordered Start: 07-01-2019 take 1 tablet by [place] th twice daily at mealtime naproxen (NAPROSYN) 500 MG tablet Take 1 tablet by mouth 2 times daily (with meals) 60 tablet 0 07/01/2019 Active 24 hr nicotine 0.875 mg/hr transdermal system (4 sources) Cholinergic Nicotinic Agonist Start: 07-30-2024 nicotine 21 mg/24 hr Transderm ER Film 1 patch(es), TransDermal, Daily Start Date: 07/30/24 Status: Ordered Start: 10-24-2023 apply 1 dose transde rmal route once daily nicotine (NICODERM CQ) 21 mg/[address] 1 patch on the skin daily. 10/24/2023 Active Start: 06-08-2019 nicotine (JARRETT DERM CQ) 21 MG/24HR 1 patch 24 hr NIFEdipine 90 mg extended release oral tablet (7 sources) Dihydropyridine Calcium Channel Navarro Start: 10-24-2023 take 1 tablet by mouth every twenty-four hours in the morning NIFEdipine CC (ADALAT CC) 90 MG 24 hr tablet Take 1 tablet (90 mg total) by mouth in the morning. 10/24/2023 Active Start: 10-21-2023 take 1 tablet by [place] th once daily NIFEdipine 90 mg ER Tab [...] days., # 45 tab(s), Refills(s) 0, Pharmacy: [facility]/pharmacy #[id number], 177.1, cm, 04/09/24 12:59:00 EDT, Height/Length [...] Class(es) Dates Sig (Normalized) Sig (Original) albuterol 0.83 mg/ml inhalation solution (4 sources) beta2-Adrenergic Agonist Start: 07-23-2024 albuterol 0.083% Inh Fatimah 3 mL Refill(s) 0, 75 mL, 0 Refill(s), INHALE 3 ML EVERY 6 HOURS NEEDED FOR SHORTNESS OF BREATH OR WHEEZING Start Date: 07/23/24 Status: Ordered Start: 10-09-2023 take 2.5 mg by inhal ation every six hours as needed for dyspnea and wheezing albuterol (PROVENTIL,VENTOLIN) 2.5 mg /3 mL (0.083 %) nebulizer solution Inhale 3 mL (2.5 mg total) by nebulization every 6 (six) hours as needed for shortness of breath or wheezing. 10/09/2023 Active albuterol 0.833 mg/ml / ipratropium bromide 0.167 mg/ml inhalation solution (1 source) Anticholinergic, beta2-Adrenergic Agonist Start: 06-09-2021 End: 06-09-2021 ipratropium-albuterol (DUONEB) nebulizer solution 1 ampule aluminum & magnesium hydroxide-simeth icone (MAALOX) 30 mL, lidocaine viscous hcl (XYLOCAINE) 5 mL (GI COCKTAIL) (1 source) Start: 06-06-2019 End: 06-06-2019 aluminum & magnesium hydroxide-simethicone (MAALOX) 30 mL, lidocaine viscous hcl (XYLOCAINE) [...] End: 06-06-2019 morphine injection 4 mg piperacillin-tazobactam (ZOSYN) 3.375 g in dextrose 5 % 50 mL IVPB (mini-bag) (1 source) Start: 06-07-2019 End: 06-07-2019 piperacillin-tazobactam (ZOSYN) 3.375 g in dextrose 5 % 50 mL IVPB (mini-bag) spironolactone 25 mg oral tablet (1 source) Aldosterone Antagonist Start: 01-29-2015 End: 12-21-2023 spironolactone (ALDACTONE) 25 mg tablet Take 25 mg by mouth. 01/29/2015 12/21/2023 Discontinued Problems Active Problems Problem Classification Problem Date Documented Date Episodic/Chronic Abdominal hernia (3 sources) Incisional hernia; Translations: [Incisional hernia without obstruction or gangrene] Onset: 07-26-2024 Episodic Anxiety disorders (5 sources) Anxiety state; Translations: [Generalized anxiety disorder] Onset: 12-22-2017 12-22-2017 Chronic Chronic obstructive pulmonary disease and bronchiectasis (10 sources) Centrilobular emphysema; Translations: [Chronic obstructive lung disease] Onset: 12-21-2023 04-04-2024 Chronic Diabetes mellitus with complications (3 sources) Hyperglycemia due to type 2 diabetes mellitus; Translations: [Type 2 diabetes mellitus with hyperglycemia] Onset: 07-26-2024 Chronic Diabetes mellitus without complication (7 sources) Type 2 diabetes mellitus without complication; Translations: [Type 2 diabetes mellitus without complications] Onset: 10-22-2023 Chronic Diabetes mellitus without complication (1 source) Hyperglycemia; Translations: [Hyperglycemia, unspecified] Onset: 10-21-2023 Episodic Diseases of white blood cells (1 source) Leukocytosis; Translations: [Elevated white blood cell count, unspecified] Onset: 10-22-2023 Chronic Essential hypertension (20 sources) Essential hypertension; Translations: [Essential (primary) hypertension] Onset: 05-25-2015 05-25-2015 Chronic Fluid and electrolyte disorders (1 source) Hypo-osmolality and or hyponatremia; Translations: [Hypo-osmolality and hyponatremia] Onset: 10-22-2023 Episodic Other aftercare (1 source) Other halfway (current) drug therapy; Translations: [OTH HELICOPTER REPAIRER CURRENT DRUG THERAPY] Onset: 02-15-2021 Episodic Other aftercare (1 source) Long-term current use of drug therapy; Translations: [Other intermediate accountant (current) drug therapy] Onset: 10-21-2023 Episodic Other circulatory disease (1 source) Elevated blood-pressure reading without diagnosis of hypertension; Translations: [Elevated blood-pressure reading, without diagnosis of hypertension] Onset: 10-21-2023 Episodic Other connective tissue disease (1 source) Ganglion of wrist; Translations: [Ganglion, unspecified wrist] Onset: 04-04-2024 Episodic Other lower respiratory disease (2 sources) Cough; Translations: [Cough] Onset: 10-21-2023 Episodic Other lower respiratory disease (3 sources) Dyspnea; Translations: [Shortness of breath] Onset: 12-21-2023 Episodic Other lower respiratory disease (2 sources) Shortness of breath; Translations: [Shortness of breath] Onset: 10-30-2023 Episodic Other lower respiratory disease (2 sources) Chronic cough; Translations: [Chronic cough] Onset: 12-21-2023 12-21-2023 Episodic Other lower respiratory disease (1 source) Solitary pulmonary nodule; Translations: [Solitary pulmonary nodule] Onset: 12-21-2023 Episodic Other nutritional; endocrine; and metabolic disorders (7 sources) Obesity; Translations: [Obesity, unspecified] Onset: 02-09-2015 02-09-2015 Chronic Other nutritional; endocrine; and metabolic disorders (1 source) Obese class II; Translations: [Body mass index (BMI) 38.0-38.9, adult] Onset: 07-26-2024 Chronic Other nutritional; endocrine; and metabolic disorders (2 sources) Body mass index 30+ - obesity 07-26-2024 Chronic Other nutritional; endocrine; and metabolic disorders (2 sources) Obesity caused by energy imbalance 07-26-2024 Chronic Other upper respiratory infections (1 source) [...] 12-21-2023 Chronic Residual codes; unclassified (1 source) Obstructive sleep apnea syndrome; Translations: [Obstructive sleep apnea (adult) (pediatric)] 12-21-2023 Chronic Residual codes; unclassified (1 source) Tobacco user; Translations: [Tobacco use] Onset: 10-21-2023 Episodic Screening and history of mental health and substance abuse codes (5 sources) Tobacco use and exposure - finding 10-21-2023 Chronic Septicemia (except in labor) (1 source) Sepsis; Translations: [Sepsis, unspecified organism] Onset: 10-21-2023 Episodic Skin and subcutaneous tissue infections (1 source) Abscess of skin and/or subcutaneous tissue; Translations: [Cutaneous abscess, unspecified] Onset: 10-21-2023 Episodic Spondylosis; intervertebral disc disorders; other back problems (5 sources) Low back pain; Translations: [Cervical radiculopathy] Onset: 02-11-2021 Episodic Substance-related disorders (13 sources) Smoker; Translations: [Nicotine dependence, cigarettes, uncomplicated] [...] chest pain] Onset: 12-22-2017 12-22-2017 Episodic Other lower respiratory disease (1 source) Nodule of lung; Translations: [Solitary pulmonary nodule] 12-21-2023 Episodic Other screening for suspected conditions (not mental disorders or infectious disease) (3 sources) Liver function tests abnormal; Translations: [Blood chemistry abnormal] Onset: 10-21-2023 Episodic Other skin disorders (4 sources) Decorative tattoo; Translations: [Other specified disorders of pigmentation] Onset: 06-08-2019 06-08-2019 Episodic Results Test Name Value Interpretation Reference Range Facility ED Note-Physicianon 08-08-19 ED Note-Physician ED Note-Physician Basic Information Time Seen: Salvador RUSHING, Kirit Jackson 07/17/2024 13:58 Chief Complaint upper right abd pain for one week, worsenings when he coughs. states that he sees a bulge. denies n/v/diarrhea/constipa tion. History of Present Illness Patient is a 44-year-old male that presents today for evaluation of his right upper/supraumbilical abdominal pain that is been going on for the last week. He states that he had a lingering cough that has managed to subside mostly but he has noticed a bulge since having this cough in his abdomen. He states that the bulge worsens specifically when he coughs. He does have a history of a cholecystectomy many years ago and he notes that the bulge feels around the area of one of his incisions. He denies any nausea, vomiting, abdominal pain. He denies any fevers, bodies, chills. His last bowel movement was this morning. Review of Systems No other aggravating or relieving factors no other associated symptoms no other prior treatments or complaints. Family: Reviewed and noncontributory Social: lives at home Review of systems negative unless otherwise specified in the HPI. Physical Exam Vitals & Measurements T: 36.5 ???C(Oral) HR: 78(Monitored) RR: 17 BP: 162/103 SpO2: 97% HT: 177 cm WT: 124 kg BMI: 39.58 General: The patient appears well and in no apparent distress. Patient is resting comfortably on cart. Skin: Warm, dry, no pallor noted. Head: Normocephalic, atraumatic Neck: No JVD Eye: PERRLA, EOMI ENT: Moist mucus membranes Cardiovascular: Regular rate and rhythm. Normal peripheral perfusion Respiratory: CTA bilaterally. No respiratory distress no accessory muscle use no obvious audible wheezing Chest Wall: no deformity Musculoskeletal: normal ROM, no deformity, no swelling GI: Soft no obvious distention. No rebound or rigidity. No guarding. Mild to moderate tender lump noted supra umbilical that worsens when the patient bears down. Neurological: A&O moves all extremities equal strength and symmetry Psychiatric: Cooperative and appropriate Medical Decision Making Patient is a 44-year-old male that presents today for evaluation of his right upper/supraumbilical abdominal pain has been going on for the last week. He had a lingering cough and noticed that his abdomen had a bulge on it with some associated pain when he would cough. Notes that its around one of his incisions from his previous cholecystectomy. Denies any other systemic signs or symptoms. On exam patient is afebrile nontoxic-appearing. He does have a mild to moderate tender lump noted supraumbilical that worsens when the patient bears down. Remainder of the abdomen is soft and nontender with no evidence of guarding or distention. Labs demonstrate mild nonspecific leukocytosis at 12.1. Elevated glucose at 301. CT of the abdomen and pelvis demonstrates supraumbilical and periumbilical fat-containing ventral wall hernias with no evidence of incarceration or obstruction. Hepatic steatosis. Previous cholecystectomy. Nonobstructing left renal calculus. Postsurgical changes L4-L5. Given no evidence of obstruction on imaging or clinical obstruction patient will be discharged home with follow-up with Dr. Shannon general surgeon for further evaluation and management of this. And will provide him with Farwell as needed for pain. Discussed with the patient if he has new or worsening symptoms he should promptly return to the ED for reevaluation. He will be discharged home with close follow-up with his PCP and Dr. Shannon. Return to ED precautions were reviewed with the patient at length. Assessment/Plan Abdominal pain (R10.9: Unspecified abdominal pain) Supraumbilical hernia without obstruction (K43.9: Ventral hernia without obstruction or gangrene) Orders: acetaminophen-hydroco done, 1 tab(s), Oral, q6hr for pain for 3 day(s), 12 tab(s), Refill(s) 0, [id number], 177, cm, 07/17/24 13:59:00 EST, Height/Length Dosing, 124, kg, 07/17/24 13:59:00 EST, Weight Dosing Basic Metabolic Panel CBC w/ Auto Diff CT Abdomen/Pelvis w/ Contrast eGFR Extra Blue Tube Extra SST Tube Hepatic Function Panel Lipase Level Disposition Plan Patient Discharge Condition Stable Discharge Disposition Home Discharge Prescription List Prescriptions Farwell 325 mg-5 mg oral tablet, 1 tab(s), Oral, q6hr, PRN Follow-up With When Contact Information Tan Shannon In 3 days 07/20/2024 EST Additional Instructions: Patient Education Hernia, Adult Attestation Patient seen and evaluated by the physician education administrative assistant. Attending physician was present in the emergency department and supervised care. This visit was performed by both the physician and an APC. I performed all aspects of the MDM as documented. This report was transcribed using voice recognition software. Every effort was made to ensure accuracy, however, inadvertently computerized photography intern mistakes may be present. Appropriate healthcare PPE was used in evaluating this (more content not included)... [facility] Comment on above: Result Comment: Elec tronically Signed By: Kirit Franco PA-C\.br\Date and Time Signed: 07/17/24 20:24 EST\.br\Electronically Co-Signed By: Jamarcus Lerma MD\.br\Date and Time Co-Signed: 08/08/24 10:25 EST Surgical Pathology Reporton 08-05-2024 Surgical Pathology Report [facility] [address] [place] [address]- Surgical Pathology Report Collected Date/Time: 07/30/2024 10:52 EST Pathologist: Kostas POWELL PhD, Tariq Friedman Received Date/Time: 08/01/2024 07:28 EST Mirtha POWELL, Tan Shannon MD, Tan Costa Surgical Pathology Report - 08/05/2024 12:41 EST - Auth (Verified) Final Diagnosis UMBILICAL AND INCISIONAL HERNIA SAC, HERNIORRHAPHY: - BENIGN MEMBRANOUS FIBROADIPOSE TISSUE, CONSISTENT WITH HERNIA SACS AND CONTENTS. (Electronic Signature) Tariq Kenyon MD PhD 08/05/2024 12:41 Clinical Information Umbilical hernia Pre-Op Diagnosis: Umbilical hernia Procedure: Robot assisted umbilical and incisional hernia repair Post-Op Diagnosis: 1. 3 cm incarcerated fat containing incisional hernia 2. 5 mm umbilical hernia Specimen(s) Received Umbilical and incisional hernia sacs Gross Description Received in formalin labeled with patient name, number, and umbilical and incisional hernia sacs are multiple light yellow medeiros fatty tissue fragments measuring in aggregate 5.4 x 3.8 x 1.5 cm. The outer surface is lobulated and has a dull shine. Cross-sectioning through the tissue contains light yellow fatty lobulated tissue and a small area of medeiros granular tissue. Health Insurance Adjuster portion is submitted in three cassettes. (DC) DC:[facility] HOSPITAL Microscopic Description Microscopic examination performed unless gross only specified. Normal [facility] Comment on above: Performed By: #### [id number] #### [facility] [address] [place] [address] Main OR Intraoperative Recor don 08-01-2024 Main OR Intraoperative Record Main OR Intraoperative Record Normal [facility] CHEMISTRYOrdered By: Lab ROP User on 07-30-2024 Glucose [Mass/Vol] 216 mg/dL High 55 - 99 mg/dL [facility] POC Subsection Comment on above: Result Comment: Dena cee RN/ POC Device SN [id number] 1 Invalid Interpretation Code [facility] POC Subsection POC User ID [id number] 1 Invalid Interpretation Code [facility] POC Subsection POC Username EDUARD SHEPPARD Invalid Interpretation Code [facility] POC Subsection Capillary Glucose POCon 07-08 Glucose [Mass/Vol] 216 mg/dL High 55-99 [facility] Comment on above: Result Comment: Dena cee RN/ Performed By: #### [id number] ####[facility] [address] [place] [address] Discharge Instructionson Discharge Instructions Discharge Instructions DEVON MATHEW :1980 Visit Date:07/30/2024 Inpatient Discharge Instructions Your Care Team Admitting Physician - Tan Shannon MD Referring Physician - Tan Shannon MD Reason for Your Visit UMBILICA HERNIA Your Diagnosis Hernia, umbilical Incisional hernia Tests Performed Pathology Tissue Exam -- Results Pending -- Please visit your patient portal for your results or contact your primary care physician. Procedure History Cholecystectomy (08/07/2018), Appendectomy with drainage, Blood glucose monitoring equipment, Laparoscopic cholecystostomy, Spinal fusion. What to do next Instructions From Your Doctor Event Name Event Result Discharge Instructions Freetext Okay to remove outer dressings and shower tomorrow. Do not remove Steri-Strips or submerge incision underwater is in pool or tub for 2 weeks after surgery. No lifting, pushing, or pulling greater than 35 pounds for 6 weeks after surgery. Discharge Activity Resume normal activities in 24 hours, Expect mild pain, Expect minimal amount of drainage and/or bleeding Discharge Restrictions No driving for 24 hrs, Do not make important decisions for 24 hours, Do not drink alcoholic beverages for 24 hours Discharge Diet(s) Regular Call Your Doctor For Persistent or heavy bleeding, Temperature above 101.5 degrees, Redness, swelling, or pus at operative site, Severe pain at the operative site, Persistent vomiting Discharge Instructions Discharge Instructions New Follow Up Appointments after Discharge Follow Up with Tan Shannon When: Comments: Appointment has already been scheduled Where: [facility] [address] [phone] Business (1) Medications What How Much When Why Instructions Next Dose New acetaminophen-hydroco done (Farwell 325 mg-5 mg oral tablet) 1 Tablets By Mouth Every 6 hours as needed for as needed for pain Incisional hernia Hernia, umbilical Pickup at [facility]/pharmacy #[id number] Changed insulin glargine (Lantus Solostar Pen 100 units/ mL subcutaneous solution) 25 Units Subcutaneous Every day Changed insulin lispro (HumaLOG KwikPen 100 units/ mL injectable solution) See instructions Unchanged albuterol (albuterol 0.083% Inh Fatimah 3 mL) Unchanged amlodipine (amLODIPine 10 mg Tab) 1 Tablets By Mouth Every day Unchanged aspirin (aspirin 81 mg Oral EC Tab) 1 Tablets By Mouth Every day Unchanged atorvastatin (Lipitor 40 mg Tab) 1 Tablets By Mouth At bedtime Unchanged hydrochlorothiazide-l osartan (hydrochlorothiazide- losartan 12.5 mg-100 mg oral tablet) 1 Tablets By Mouth Every day Unchanged metformin (metformin 500 mg Tab) 1 Tablets By Mouth 2 times a day Unchanged metoprolol (Metoprolol tartrate 50 mg Tab) 1 Tablets By Mouth 2 times a day Unchanged nicotine (nicotine 21 mg/ 24 hr Transderm ER Film) 1 Patches Transdermal Every day Unchanged NIFEdipine (NIFEdipine 90 mg ER Tab) 1 Tablets By Mouth Every day Pharmacy Information [facility]/pharmacy #[id number]: [address], [place] [id number] [phone] Allergies No Known Medication Allergies Education Materials Laparoscopic Ventral Hernia Repair, Care After The following information offers guidance on how to care for yourself after your procedure. Your health care provider may also give you more specific instructions. If you have problems or questions, contact your health care provider. What can I expect after the procedure? After the procedure, it is common to have pain, discomfort, or soreness. Follow these instructions at home: Medicines ??? Take qynv-utu-wlhbtks and prescription medicines only as told by your health care provider. ??? Ask your health care provider if the medicine prescribed to you: ? Requires you to avoid driving or using machinery. ? Can cause constipation. You may need to take these actions to prevent or treat constipation: ? Drink enough fluid to keep your urine pale yellow. ? Take nwyi-jrv-rvoglqd or prescription medicines. ? Eat foods that are high in fiber, such as beans, whole grains, and fresh fruits and vegetables. ? Limit foods that are high in fat and processed sugars, such as fried or sweet foods. Incision care ??? Follow instructions from your health care provider about how to take care of your incisions. Make sure you: ? Wash your hands with soap and water for at least 20 seconds before and after you change your bandage (dressing) or before you touch your abdomen. If soap and water are not available, use hand hang gliding instructor. ? Change your dressing as told by your health care provider. ? Leave stitches (sutures), skin glue, or adhesive strips in place. These skin closures may need to stay in place for 2 weeks or longer. If adhesive strip edges start to loosen and curl up, you may trim the loose edges. Do not remove adhesive strips completely unless your health care provider tells you to (more content not included)... Normal [facility] Comment on above: Result Comment: Elec tronically Signed By: Maryjane Garcia\.leonor\Date and Time Signed: 07/30/24 12:11 EST Inpatient Patient Summaryon 07-30-2024 Inpatient Patient Summary Inpatient Patient Summary [address] [address] [facility] Clinical Discharge Instructions PERSON INFORMATION Name: DEVON MATHEW [facility]#:[id number] PHYSICIANS Admitting Physician: Tan Shannon MD Attending Physician: Tan Shannon MD PCP: NONE, XXXX Discharge Diagnosis: Comment: PATIENT EDUCATION INFORMATION Instructions: Laparoscopic Ventral Hernia Repair, Care After; Post Op Patient Instructions - FT (CUSTOM) Medication Leaflets: Follow up: With: Address: When: Tan Shannon [address], [facility] [address], [place] [id number] [phone] Business (1) Comments: Appointment has already been scheduled MEDICATION LIST New Medications [id number], [address], [place] [phone], [phone] acetaminophen-hydroco done (Farwell 325 mg-5 mg oral tablet) 1 Tablets By Mouth every 6 hours as needed as needed for pain. Refills: 0. Medications to Continue Taking That Have Changed Other Medications START: insulin glargine (Lantus Solostar Pen 100 units/mL subcutaneous solution) 25 Units Subcutaneous every day. START: insulin lispro (HumaLOG KwikPen 100 units/mL injectable solution) 7 unit(s) SubCutaneous BID., 8 units in the morning before breakfast, 10 units before lunch, 12 units before dinner Medications to Continue with No Changes Other Medications albuterol (albuterol 0.083% Inh Fatimah 3 mL) 75 mL, 0 Refill(s), INHALE 3 ML EVERY 6 HOURS NEEDED FOR SHORTNESS OF BREATH OR WHEEZING., Responsible Provider: ART MOROCHO amlodipine (amLODIPine 10 mg Tab) 1 Tablets By Mouth every day. aspirin (aspirin 81 mg Oral EC Tab) 1 Tablets By Mouth every day. atorvastatin (Lipitor 40 mg Tab) 1 Tablets By Mouth at bedtime. Refills: 1. hydrochlorothiazide-l osartan (hydrochlorothiazide- losartan 12.5 mg-100 mg oral tablet) 1 Tablets By Mouth every day. Refills: 0. metformin (metformin 500 mg Tab) 1 Tablets By Mouth 2 times a day. Refills: 0. metoprolol (Metoprolol tartrate 50 mg Tab) 1 Tablets By Mouth 2 times a day. nicotine (nicotine 21 mg/24 hr Transderm ER Film) 1 Patches Transdermal every day. NIFEdipine (NIFEdipine 90 mg ER Tab) 1 Tablets By Mouth every day. Comment: [facility] Main OR PACU I Recordon - Main OR PACU I Record Main OR PACU I Rec ord PACU Phase I Document Type FT Summary Primary Physician: Tan Shannon MD Finalized Date/Time: 07/30/24 13:01:09 Pt. Name: DEVON MATHEW /Sex: 1980 Male Med Rec #: [id number] Physician: Tan Shannon MD Financial #: [id number] Pt. Type: A Room/Bed: AS12/05 Admit/Disch: 07/30/24 07:18:04 - Institution: Case Times PACU I FT Pre-Care Text: Identifies barriers to communication and implements measures to provide psychological support Develops individualized plan of care, and ensures continuity of care Maintains patient's dignity and privacy, and maintains patient confidentiality Identifies and reports philosophical, cultural, and spiritual beliefs and values Identifies individual values and wishes concerning care Implements aseptic technique, and administers prescribed antibiotic therapy and immunizing agents as ordered Evaluates postoperative tissue perfusion Implements thermoregulation measures, and monitors body temperature Evaluates postoperative respiratory status Evaluates postoperative cardiac status Evaluates postoperative neurological status Assesses pain control, collaborated in initiating patient-controlled analgesia and implements alternative methods of pain control Verifies allergies, administers prescribed medications and solutions, evaluates response to medications Entry 1 In PACU I 07/30/24 12:04:00 Discharge from PACU 07/30/24 12:46:00 I Outcomes Met? Yes Last Modified By: Grayson RN, Yun Yeh 07/30/24 13:00:58 Post-Care Text: The patient demonstrates knowledge of the expected response to the operative or invasive procedure The patient's care is consistent with the individualized perioperative plan of care The patient's right to privacy is maintained The patient's value system, lifestyle, ethnicity, and culture are considered, respected, and incorporated into the perioperative plan of care The patient participates in decisions affecting his or her perioperative plan of care The patient is free from signs and symptoms of infection The patient has wound/tissue perfusion consistent with or improved from baseline levels established preoperatively The patient is at or returning to normothermia at the conclusion of the immediate postoperative period The patient's respiratory function is consistent with or improved from baseline levels established preoperatively The patient's cardiovascular status is consistent with or improved from baseline levels established preoperatively The patient's cardiovascular status is consistent with or improved from baseline levels established preoperatively The patient demonstrates and/or reports adequate pain control throughout the perioperative period The patient received appropriate medication(s), safely administered during the perioperative period Acuity Level PACU I FT Entry 1 Start Time 07/30/24 12:04:00 Stop Time 07/30/24 12:46:00 Acuity Level Acuity Level I Last Modified By: Yun Galicia RN 07/30/24 13:01:06 Finalized By: Yun Galicia RN Document Signatures Signed By: Yun Galicia RN 07/30/24 13:01 Yun Galicia RN 07/30/24 13:01 [facility] Main OR PACU II Recordon Main OR PACU II Record Main OR PACU II Record PACU Phase II Document Type FT Summary Primary Physician: Tan Shannon MD Finalized Date/Time: 07/30/24 13:58:38 Pt. Name: MATHEWDEVON/Sex: 1980 Male Med Rec #: [id number] Physician: Tan Shannon MD Financial #: [id number] Pt. Type: A Room/Bed: [facility] Admit/Disch: 07/30/24 07:18:04 - Institution: Case Times PACU II FT Pre-Care Text: Identifies barriers to communication and implements measures to provide psychological support and determines knowledge level Develops individualized plan of care, and ensures continuity of care Maintains patient's dignity and privacy, and maintains patient confidentiality Identifies and reports philosophical, cultural, and spiritual beliefs and values Identifies individual values and wishes concerning care administers prescribed antibiotic therapy and immunizing agents as ordered, Evaluates postoperative tissue perfusion Implements thermoregulation measures, and monitors body temperature Evaluates postoperative respiratory status Evaluates postoperative cardiac status Evaluates postoperative neurological status Assesses pain control, collaborated in initiating patient-controlled analgesia and implements alternative methods of pain control Verifies allergies, administers prescribed medications and solutions, evaluates response to medications Entry 1 In PACU II 07/30/24 12:50:00 Discharge from PACU 07/30/24 13:55:00 II Outcomes Met? Yes Last Modified By: Maryjane Garcia 07/30/24 13:58:36 Post-Care Text: The patient demonstrates knowledge of the expected response to the operative or invasive procedure The patient's care is consistent with the individualized perioperative plan of care The patient's right to privacy is maintained The patient's value system, lifestyle, ethnicity, and culture are considered, respected, and incorporated into the perioperative plan of care The patient participates in decisions affecting his or her perioperative plan of care. The patient is free from signs and symptoms of infection The patient has wound/tissue perfusion consistent with or improved from baseline levels established preoperatively The patient is at or returning to normothermia at the conclusion of the immediate postoperative period The patient's respiratory function is consistent with or improved from baseline levels established preoperatively The patient's cardiovascular status is consistent with or improved from baseline levels established preoperatively The patient's neurological status is consistent with or improved from baseline levels established preoperatively The patient demonstrates and/or reports adequate pain control throughout the perioperative period The patient received appropriate medication(s), safely administered during the perioperative period Finalized By: Maryjane Garcia Document Signatures Signed By: Maryjane Garcia 07/30/24 13:58 [facility] Main OR Preoperative Recordo n 07-30-2024 Main OR Preoperative Record Main OR Preoperative Record PreOp Document Type FT Summary Primary Physician: Tan Shannon MD Finalized Date/Time: 07/30/24 11:03:14 Pt. Name: DEVON MATHEW/Sex: 1980 Male Med Rec #: [id number] Physician: Tan Shannon MD Financial #: [id number] Pt. Type: A Room/Bed: Admit/Disch: 07/30/24 07:18:04 - Institution: Case Times PreOp FT Pre-Care Text: Verifies consent for planned procedure, identifies individual values and wishes concerning care, includes family members in perioperative teaching Entry 1 Patient Times. In Pre Surgery 07/30/24 07:30:00 Out Pre Surgery 07/30/24 09:53:00 Outcomes Met? Yes Last Modified By: Rosy Kong RN 07/30/24 11:03:13 Post-Care Text: The patient participates in decisions affecting his or her perioperative plan of care Finalized By: Rosy Kong RN Document Signatures Signed By: Rosy Kong RN 07/30/24 11:03 [facility] Operative Reporton 4 Operative Report Operative Report Indication for Surgery 44-year-old male with symptomatic incisional hernia found on CT scan as well as incidentally identified umbilical hernia. Seen and examined the office consented for robotic incisional and robotic umbilical hernia repair. Incisional hernia he states was from an epigastric port from a prior laparoscopic cholecystectomy Preoperative Diagnosis Incisional hernia Umbilical hernia Postoperative Diagnosis 1. 3cm incarcerated fat containing incisional hernia 2. 5mm umbilical hernia Operation HERNIA REPAIR, ROBOT ASSISTED, ROBOT ASSISTED UMBILICAL AND INCISIONAL HERNIA REPAIR, . Surgeon(s) Tan Shannon MD (Surgeon - Primary) Plastic Sewer Renetta Locke Anesthesia General Mike Conley CRNA (Other) Estimated Blood Loss 10 cc Urine Output void prior to OR Findings 1. 3cm incarcerated fat containing incisional hernia 2. 5mm umbilical hernia Specimen(s) Pathology Tissue Exam (Umbilical and incisional hernia sacs,AP Specimen) Complications none Technique After obtaining informed consent the patient was taken to the operating room and positioned supine the operating room table. General anesthesia was achieved. The patient received perioperative antibiotics. The patient's abdomen was prepped draped in sterile fashion. An incision was made at Vanessa's point and the Veress needle was introduced into the peritoneal cavity. The peritoneal cavity was insufflated and using a 5 mm Optiview trocar the peritoneal cavity was entered. On inspection at our entry site there was no evidence of injury. Under direct visualization three 8 mm robotic trocars were inserted in the right upper right hypogastric and right lower quadrant. This was done after first anesthetizing the skin and muscle with an Exparel with quarter percent bupivacaine mixture. The robot was docked. Under direct visualization a 30 degree robotic camera, a ProGrasp device, and a monopolar scissors were introduced into the peritoneal cavity. On inspection the superior incisional hernia was identified as well as the umbilical hernia. Decision was made to proceed with intraperitoneal onlay mesh repair. The fascial edges of the 2 hernias were cleared off and the incarcerated fat within them was reduced into the abdominal cavity. The umbilical hernia defect measured 5 mm, the incisional hernia from the epigastric port from patient's previous laparoscopic cholecystectomy measured 3 cm. Using a nonabsorbable 0-V-Loc suture the umbilical hernia was closed primarily in a running fashion. Using a 0-V-Loc suture the incisional hernia was closed in a running fashion. A 12 cm Symbotex mesh was used in the peritoneal cavity and was centered upon the incisional hernia defect in the epigastric region. The mesh was sutured in place in a running fashion using absorbable V-Loc sutures in an intraperitoneal onlay mesh repair fashion (IPOM). All needles were removed from the peritoneal cavity under direct visualization. The hernia sac both the umbilical hernia as well as the incisional hernia were placed in a 5 mm Endo Catch bag and passed off for specimen. The peritoneal cavity was then desufflated. The skin was closed using a 4-0 Monocryl in a subcuticular fashion. Mastisol Steri-Strips and sterile dressings were applied to incisions. All of our counts are correct x 2. The patient was awoken returned to cart room in stable condition. [facility] Comment on above: Result Comment: Elec tronically Signed By: Tan Shannon MD\.br\Date and Time Signed: 07/30/24 12:10 EST Outpatient Surgery Discharge Instructionon 07-30-2024 Outpatient Surgery Discharge Instruction Outpatient Surgery Discharge Instruction [place] [id number] Patient Discharge Instructions PERSON INFORMATION Name: DEVON MATHEW Date of : 1980 Current Date: 07/30/2024 12:01:00 PHYSICIANS Admitting Physician: Tan Shannon MD Discharge Diagnosis: DEVON MATHEW has been given the following list of follow-up instructions, prescriptions, and patient education materials: PATIENT FOLLOW-UP INFORMATION Diet: Regular Discharge Activity: Resume normal activities in 24 hours, Expect mild pain, Expect minimal amount of drainage and/or bleeding Discharge Restrictions: No driving for 24 hrs, Do not make important decisions for 24 hours, Do not drink alcoholic beverages for 24 hours Call Your Doctor For: Persistent or heavy bleeding, Temperature above 101.5 degrees, Redness, swelling, or pus at operative site, Severe pain at the operative site, Persistent vomiting Additional Instructions: Okay to remove outer dressings and shower tomorrow. Do not remove Steri-Strips or submerge incision underwater is in pool or tub for 2 weeks after surgery. No lifting, pushing, or pulling greater than 35 pounds for 6 weeks after surgery. IF UNABLE TO CONTACT YOUR PHYSICIAN AND YOU FEEL IT IS AN EMERGENCY, GO TO THE NEAREST EMERGENCY ROOM OR CALL 911 IPRIYANKA CORY, have received the attached patient education materials/instruction s and have verbalized understanding: May we do a follow up call? Yes No I was present when discharge instructions were given Patient Signature Date Clinican/Nurse Signature Date Follow up: With: Address: When: Tan Shannon [address] [place] [address], [address] [phone] Business (1) Comments: Appointment has already been scheduled Pharmacy Information: You may receive a survey from [facility] asking you to rate your care experience. Your feedback is important and will help us understand what we do well and how we can improve the quality of care we provide to you, your loved ones and our community. It???s an honor to serve you. Thank you for choosing [facility] HERE ARE THE MEDICATION CHANGES THAT OCCURRED DURING YOUR HOSPITAL STAY New Medications [id number], [address], [place] [phone], [phone] acetaminophen-hydroco done (Farwell 325 mg-5 mg oral tablet) 1 Tablets By Mouth every 6 hours as needed as needed for pain. Refills: 0. Medications to Continue Taking That Have Changed Other Medications START: insulin glargine (Lantus Solostar Pen 100 units/mL subcutaneous solution) 25 Units Subcutaneous every day. START: insulin lispro (HumaLOG KwikPen 100 units/mL injectable solution) 7 unit(s) SubCutaneous BID., 8 units in the morning before breakfast, 10 units before lunch, 12 units before dinner Medications to Continue with No Changes Other Medications albuterol (albuterol 0.083% Inh Fatimah 3 mL) 75 mL, 0 Refill(s), INHALE 3 ML EVERY 6 HOURS NEEDED FOR SHORTNESS OF BREATH OR WHEEZING., Responsible Provider: ART MOROCHO amlodipine (amLODIPine 10 mg Tab) 1 Tablets By Mouth every day. aspirin (aspirin 81 mg Oral EC Tab) 1 Tablets By Mouth every day. atorvastatin (Lipitor 40 mg Tab) 1 Tablets By Mouth at bedtime. Refills: 1. hydrochlorothiazide-l osartan (hydrochlorothiazide- losartan 12.5 mg-100 mg oral tablet) 1 Tablets By Mouth every day. Refills: 0. metformin (metformin 500 mg Tab) 1 Tablets By Mouth 2 times a day. Refills: 0. metoprolol (Metoprolol tartrate 50 mg Tab) 1 Tablets By Mouth 2 times a day. nicotine (nicotine 21 mg/24 hr Transderm ER Film) 1 Patches Transdermal every day. NIFEdipine (NIFEdipine 90 mg ER Tab) 1 Tablets By Mouth every day. PATIENT EDUCATION INFORMATION Instructions: Laparoscopic Ventral Hernia Repair, Care After The following information offers guidance on how to care for yourself after your procedure. Your health care provider may also give you more specific instructions. If you have problems or questions, contact your health care provider. What can I expect after the procedure? After the procedure, it is common to have pain, discomfort, or soreness. Follow these instructions at home: Medicines ??? Take qiqh-omr-qlleqaw and prescription medicines only as told by your health care provider. ??? Ask your health care provider if the medicine prescribed to you: ? Requires you to avoid driving or using machinery. ? Can cause constipation. You may need to take these actions to prevent or treat constipation: ? Drink enough fluid to keep your urine pale yellow. ? Take njvl-rte-myu (more content not included)... 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 male here for ER follow up Patient presented to [facility] on 07/17/[address] Ab/Pel w/ Con done 07/17/24 - supraumbilical and periumbilical hernia Today patient states the area is painful s/p cholecystectomy 4-5 years prior at [facility] in [place] s/p append[facility] [facility] in [place] more than 15 years ago History of Present Illness 44-year-old male with history of laparoscopic cholecystectomy and appendectomy presenting with an incisional hernia at the epigastric port site as well as at the umbilical port site. The umbilical port site hernia is roughly 1 cm the epigastric port site hernia measures 3 cm and contains fat. The patient states that it is very painful. Review of Systems PHQ Score Initial Depression Screen Score: 3 SCORE Physical Exam Vitals & Measurements HR: 75(Peripheral) BP: 142/93 HT: 70 in HT: 177 cm WT: 121 kg WT: 266.759 lb BMI: 38.62 Abdomen soft tender around the epigastric hernia site no signs of peritonitis the epigastric incisional hernia in the umbilical incisional hernia are both reducible. Assessment/Plan 1. Incisional hernia (K43.2: Incisional hernia without obstruction or gangrene) Epigastric incisional hernia reduced in office will proceed with a robotic assisted laparoscopic repair of epigastric and umbilical incisional hernias. Given medical comorbidities of poorly controlled diabetes tobacco use and obesity patient is at increased risk of hernia recurrence however given the acute and severe pain from his symptoms expeditious repair is indicated counseling is been provided regarding risk of recurrence and how to mitigate risk factors in the future to prevent recurrence including weight loss bloating sensation and dietary/medical changes to control diabetes. Ordered: E&M of New Patient Moderate 45-59 Min 85189 Hospital-based Procedure Pre-Surgery Testing per Anesthesia 2. BMI 38.0-38.9,adult (Z68.38: Body mass index [BMI] 38.0-38.9, adult) Education provided Ordered: E&M of New Patient Moderate 45-59 Min 85499 Hospital-based Procedure Pre-Surgery Testing per Anesthesia 3. Obesity due to excess calories (E66.09: Other obesity due to excess calories) As above Ordered: E&M of New Patient Moderate 45-59 Min 28226 Hospital-based Procedure Pre-Surgery Testing per Anesthesia 4. Smoker (F17.200: Nicotine dependence, unspecified, uncomplicated) Strongly recommend patient to quit tobacco use. Cigarette smoking harms nearly every organ of the body, causes many diseases, and reduces the health of smokers in general. Quitting smoking lowers risk for smoking-related diseases and increases life expectancy. Encouraged patient to visit helpful online resources and/or free telephone support such as [employer]. Prescription medication to help smoking cessation available on request from PCP. Ordered: E&M of New Patient Moderate 45-59 Min 48379 Hospital-based Procedure Pre-Surgery Testing per Anesthesia 5. Type II diabetes mellitus uncontrolled (E11.65: Type 2 diabetes mellitus with hyperglycemia) Hold metformin morning of procedure Ordered: E&M of New Patient Moderate 45-59 Min 32878 Hospital-based Procedure Pre-Surgery Testing per Anesthesia Portions of this record may have been created with voice recognition artificial intelligence software, specifically [employer], Szl and or Sepior. Substitutions may have occurred due to the inherent limitations of voice recognition and artificial intelligence software. Follow-up No qualifying data available Problem List/Past Medical History Ongoing Acute exacerbation of chronic obstructive airways disease (COPD) BMI 38.0-38.9,adult HTN (hypertension) Incisional hernia Obesity due to excess calories Pulmonary emphysema Smoker Tobacco use Type II diabetes mellitus uncontrolled Historical COPD - Chronic obstructive pulmonary disease Diabetes mellitus type 1 Hypertension Procedure/Surgical History Cholecystectomy (08/07/2018), Appendectomy with drainage, Blood glucose monitoring equipment, Laparoscopic cholecystostomy, Spinal fusion. Medications albuterol 0.083% Inh Fatimah 3 mL amLODIPine 10 mg Tab, 10 mg= 1 tab(s), Oral, Daily aspirin 81 mg Oral EC Tab, 81 mg= 1 tab(s), Oral, Daily hydrochlorothiazide-l osartan 12.5 mg-100 mg oral tablet, [...] History Alcohol - Denies Alcohol Use, 04/04/2024 Never., 07/25/2024 Substance Abuse - Denies Substance Abuse, 10/21/2023 Never., 07/25/2024 Tobacco - High Risk, 10/21/2023 4 or less cigarettes(less than (more content not included)... Normal [facility] Comment on above: Result Comment: Elec tronically Signed By: Mirtha POWELL, Tan Lechuga\Date and Time Signed: 07/26/24 09:07 EST BMPon 07-17-2024 Anion gap [Moles/Vol] 12 mmol/L Normal 6-16 [facility] Comment on above: Performed By: #### 2 [id number] #### [facility] [address] [place] [address] Calcium [Mass/Vol] 9.2 mg/dL Normal 8.9-11.1 [facility] Comment on above: Performed By: #### 2 [id number] #### [facility] [address] [place] [address] Chloride [Moles/Vol] 97 mmol/L Low 101-[address] [facility] Comment on above: Performed By: #### 2 [id number] #### [facility] [address] [place] [address] CO2 [Moles/Vol] 27 mmol/L Normal 21-31 [facility] Comment on above: Performed By: #### 2 340342 #### [facility] [address] [place] [address] Creatinine [Mass/Vol] 0.6 mg/dL Normal 0.5-1.3 [facility] Comment on above: Performed By: #### 2 [id number] #### [facility] [address] [place] [address] Glucose [Mass/Vol] 301 mg/dL High 55-199 [facility] Comment on above: Performed By: #### 2 [id number] #### [facility] [address] [place] [address] Potassium [Moles/Vol] 3.8 mmol/L Normal 3.5-5.3 [facility] Comment on above: Performed By: #### 2 [id number] #### [facility] [address] [place] [address] Sodium [Moles/Vol] 132 mmol/L Low 135-145 [facility] Comment on above: Performed By: #### 2 [id number] #### [facility] [address] [place] [address] Urea nitrogen [Mass/Vol] 10 mg/dL Normal 5-21 [facility] Comment on above: Performed By: #### 2 [id number] #### [facility] [address] [place] [address] Urea nitrogen/Creatinine [Mass ratio] 17 No Units Normal 10-20 [facility] Comment on above: Performed By: #### 2 [id number] #### [facility] [address] [place] [address] CBC w/ Auto Diffon 4 Basophils/100 WBC (Bld) 0.8 % Normal 0.0-2.0 [facility] Comment on above: Performed By: #### 2 [id number] #### [facility] [address] [place] [address] Basophils/Leukocytes Auto (Bld) [Pure # fraction] 0.1 E9/L Normal 0.0-0.2 [facility] Comment on above: Performed By: #### 2 [id number] #### [facility] [address] [place] [address] Eosinophils (Bld) [#/Vol] 0.2 E9/L Normal 0.0-0.5 [facility] Comment on above: Performed By: #### 2 215992 #### [facility] [address] [place] [address] Eosinophils/100 WBC (Bld) 1.8 % Normal 0.0-8.0 [facility] Comment on above: Performed By: #### 2 757973 #### [facility] [address] [place] [address] Erythrocyte distribution width (RBC) [Ratio] 13.2 % Normal 10.9-14.2 [facility] Comment on above: Performed By: #### 2 885112 #### [facility] [address] [place] [address] Hematocrit (Bld) [Volume fraction] 43.8 % Normal 37.7-49.0 [facility] Comment on above: Performed By: #### 2 097013 #### [facility] [address] [place] [address] Hemoglobin (Bld) [Mass/Vol] 15.4 g/dL Normal 13.5-17.5 [facility] Comment on above: Performed By: #### 2 947563 #### [facility] [address] [place] [address] Lymphocytes (Bld) [#/Vol] 2.9 E9/L Normal 1.0-4.0 [facility] Comment on above: Performed By: #### 2 444227 #### [facility] [address] [place] [address] Lymphocytes/100 WBC (Bld) 24.3 % Normal 14.0-50.0 [facility] Comment on above: Performed By: #### 2 401512 #### [facility] [address] [place] [address] MCH (RBC) [Entitic mass] 29.4 pg Normal 27.0-34.0 [facility] Comment on above: Performed By: #### 2 464148 #### [facility] [address] [place] [address] MCHC (RBC) [Mass/Vol] 35.2 g/dL Normal 31.4-36.0 [facility] Comment on above: Performed By: #### 2 871910 #### [facility] [address] [place] [address] MCV (RBC) [Entitic vol] 83.6 fL Normal 80.0-100.0 [facility] Comment on above: Performed By: #### 2 341578 #### [facility] [address] [place] [address] Monocytes (Bld) [#/Vol] 0.6 E9/L Normal 0.2-1.0 [facility] Comment on above: Performed By: #### 2 050744 #### [facility] [address] [place] [address] Neutrophils (Bld) [#/Vol] 8.2 E9/L High 2.0-7.5 [facility] Comment on above: Performed By: #### 2 415785 #### [facility] [address] [place] [address] Neutrophils/100 WBC (Bld) 67.9 % Normal 36.0-75.0 [facility] Comment on above: Performed By: #### 2 095294 #### [facility] [address] [place] [address] Platelet mean volume (Bld) [Entitic vol] 9.5 fL Normal 6.4-10.8 [facility] Comment on above: Performed By: #### 2 103354 #### [facility] [address] [place] [address] Platelets (Bld) [#/Vol] 259.0 E9/L Normal 150.0-500.0 [facility] Comment on above: Performed By: #### 2 343242 #### [facility] [address] [place] [address] RBC (Bld) [#/Vol] 5.2 E12/L Normal 4.3-5.9 [facility] Comment on above: Performed By: #### 2 096117 #### [facility] [address] [place] [address] WBC corrected for nucl RBC Auto (Bld) [#/Vol] 12.1 E9/L High 4.0-11.0 [facility] Comment on above: Performed By: #### 2 744540 #### [facility] [address] [place] [address] CT Abdomen/Pelvis w/ Contras ton 07-17-2024 CT Abdomen/Pelvis w/ Contrast Exam Date/Time: 07/17/2024 15:52 EST Reason for Exam: ABDOMINAL PAIN, ACUTE, NONLOCALIZED;Other (please specify) Report IMPRESSION: SUPRAUMBILICAL AND PERIUMBILICAL FAT-CONTAINING VENTRAL WALL HERNIAS, WITH NO CT EVIDENCE OF INCARCERATION OR OBSTRUCTION. HEPATIC STEATOSIS. CHOLECYSTECTOMY. NONOBSTRUCTING LEFT RENAL CALCULUS. POSTSURGICAL CHANGE INVOLVING INTERNAL FIXATION L4-L5 DISCUSSED. CT OF THE ABDOMEN AND PELVIS WITH INTRAVENOUS CONTRAST MEDIUM. HISTORY: ABDOMINAL PAIN, ACUTE, NONLOCALIZED. RIGHT UPPER QUADRANT ABDOMINAL PAIN. ABDOMINAL BULGE. TECHNICAL FACTORS: CT imaging of the abdomen and pelvis were obtained and formatted as 5 mm contiguous axial images from the domes of the diaphragm to the symphysis pubis. Sagittal and coronal reconstructions were also obtained. Oral contrast medium: None. Intravenous contrast medium: Isovue-300, 100 mL. Comparison: None FINDINGS: Lower chest: Cardiac size normal. No pericardial effusion. No coronary artery calcified patient. Lung bases clear. Liver: Normal in size, shape, and decreased in attenuation. Bile Ducts: Normal in caliber. Gallbladder: Surgically absent. Pancreas: Normal without masses, cysts, ductal dilatation or calcification. Spleen: Normal in size without masses or calcifications. No splenules. Kidneys: Normal in size and enhancement. No hydronephrosis or masses. 4 mm calculus lower pole left kidney.. Adrenals: Normal. Small bowel: Normal in caliber. Report Appendix: Normal. Colon: Normal in caliber. Peritoneum: No ascites, free air, or fluid collections. Vessels: Aorta normal in course and caliber. Portal vein, splenic vein, superior mesenteric vein are patent. Lymph nodes: Retroperitoneal: No enlarged retroperitoneal lymph nodes. Mesenteric: No enlarged mesenteric lymph nodes. Pelvic: No enlarged pelvic lymph nodes. Ureters: Normal in course and caliber. No calcifications. Bladder: No wall thickening. Reproductive organs: No pelvic masses. Abdominal Wall: 1.6 cm fat-containing periumbilical midline abdominal wall defect. 2.1 cm supraumbilical abdominal wall defect cc series series 9, image 46). No associated bowel dilatation or fat stranding. No diastasis of rectus musculature. No edema or masses. Bones: No bone lesions. No degenerative changes. Laminectomy with bilaterally posteriorly placed pedicle screws, L4 and L5, secured to bilateral vertically oriented rods. Intervertebral disc space device L4-L5. All CT scans at this facility use dose modulation, iterative reconstruction, and/or weight based dosing when appropriate to reduce radiation dose to as low as reasonably achievable. Ordering Provider: Kirit Franco FINAL REPORT Dictated: 07/17/2024 4:07 pm Reynold Gay MD Signed (Electronic Signature): 07/17/2024 4:07 pm Signed by: Reynold Gay MD Transcribed by: ALEJANDRA Technologist: MAGDALENA Technical Comments GFR (mL/min/1/73m2) age Contrast: Isovue 300 Contrast amount in ml's: 100 Normal [facility] ED Clinical Summaryon 2023 ED Clinical Summary ED Clinical Summary [place] [id number] ED Clinical Summary Person Information Name: DEVON MATHEW/[facility] Age: 44 Years : 1980 Sex: Male Language: Macedonian PCP: NONE, XXXX Marital Status: Single Visit Id: Visit Reason: Abdominal pain; POSS HERNIA - SOMETHING BULDGING OUT OF STOMACH Speciality: Acuity: 3 Enc Type: Emergency Med Service: Emergency Arrival: 07/17/2024 13:46:45 Discharge: 07/17/2024 16:45:30 LOS: 000 02:59 Checkin: 07/17/2024 13:46:45 Checkout: 07/17/2024 16:45:30 Dispo Type: Home (Routine DC) EVENTS: Event Name Event Status Request Date/Time Start Date/Time Complete Date/Time Arrive Complete 07/17/2024 13:46:45 07/17/2024 13:46:45 07/17/2024 13:46:45 Document Home Meds Request 07/17/2024 13:46:45 Triage Complete 07/17/2024 13:46:45 07/17/2024 13:59:02 07/17/2024 13:59:02 Bed Assign Complete 07/17/2024 13:52:31 07/17/2024 13:52:31 07/17/2024 13:52:31 Dr Exam Complete 07/17/2024 13:52:31 07/17/2024 13:58:42 07/17/2024 13:58:42 RN Exam Complete 07/17/2024 13:52:31 07/17/2024 14:32:15 07/17/2024 14:32:15 Registration Complete 07/17/2024 13:52:33 07/17/2024 13:52:33 07/17/2024 13:52:33 Reg Complete Request 07/17/2024 13:52:33 Reg Bed Request Complete 07/17/2024 13:52:33 07/17/2024 13:52:33 07/17/2024 13:52:33 Registration Complete 07/17/2024 13:58:42 07/17/2024 14:19:33 07/17/2024 14:19:33 Isolation Screening Request 07/17/2024 13:59:03 CT Complete 07/17/2024 15:01:16 07/17/2024 15:17:09 07/17/2024 15:52:30 Pending Labs Request 07/17/2024 15:01:16 Lab Complete 07/17/2024 15:01:16 07/17/2024 15:53:33 Pending Labs Complete 07/17/2024 15:27:54 07/17/2024 15:27:54 07/17/2024 15:53:33 Lab Complete 07/17/2024 15:27:54 07/17/2024 15:27:54 07/17/2024 15:53:33 Pending Labs Complete 07/17/2024 15:29:20 07/17/2024 15:29:20 07/17/2024 15:29:21 Discharge Complete 07/17/2024 16:25:04 07/17/2024 16:45:40 07/17/2024 16:45:40 Transfer Complete 07/17/2024 16:45:40 07/17/2024 16:45:40 07/17/2024 16:45:40 ADDRESS: [address] [place] [id number] PHYS DOC NOTES: MEDICAL INFORMATION: Prescriptions Given: New Medications [id number], [address], [place] [id number], [phone] acetaminophen-hydroco done ([place] 325 mg-5 mg oral tablet) 1 Tablets By Mouth every 6 hours as needed for pain for 3 Days. Refills: 0. Medications to Continue with No [...] Tab) 1 Tablets By Mouth every day. predniSONE (predniSONE 10 mg Tab) 1 Dose Separtor By Mouth As Directed. Take 5 tabs by mouth daily x3 days, 4 daily x3 days, 3 daily x3 days, 2 daily x3 days, then 1 tab daily x3 days.. Refills: 0. PATIENT EDUCATION INFORMATION: Instructions: Hernia, Adult Follow up: With: Address: When: Tan Shannon In 3 days 07/20/2024 DIAGNOSIS: Abdominal pain; Supraumbilical hernia without obstruction Normal [facility] ED Patient Summaryon 024 ED Patient Summary ED Patient Summary [address] [address] Patient Discharge Instructions Person Information Name: DEVON MATHEW Age: 44 Years Arrival Date: 07/17/2024 13:46:45 Discharge Diagnosis: Abdominal pain; Supraumbilical hernia without obstruction Primary Care Physician: NONE, XXXX Provider Information Primary Provider: [employer] Specialist:Kirit Franco PA-C The exam and treatment you received in the Emergency Department were for an urgent problem and are not intended as complete care. It is important that you follow up with a doctor, nurse practitioner, or physician???s education administrative assistant for ongoing care. If your symptoms become worse or you do not improve as expected and you are unable to reach your usual health care provider, you should return to the Emergency Department. We are available 24 hours a day. DEVON MATHEW has been given the following list of patient education materials, prescriptions and follow-up instructions: Follow-up Instructions: With: Address: When: Tan Shannon In 3 days 07/20/2024 In the event that this physician does not participate in your insurance network, please consult with your insurance company to find a nearby participating provider. Patient Education Materials: Hernia, Adult A MESSAGE TO ALL PATIENTS REGARDING OPIOIDS PRESCRIPTION OPIOIDS: WHAT YOU NEED TO KNOW Prescription opioids can be used to help relieve umvgostr-ts-yrtwjv pain and are often prescribed following a [...] as well, even when taken as directed: ??? Tolerance???meaning you might need to take more of the medication for the same pain relief ??? Physical dependence???meaning you have symptoms of withdrawal when a medication is stopped ??? Increased sensitivity to pain ??? Constipation ??? Nausea, vomiting, and dry mouth ??? Sleepiness and dizziness ??? Confusion ??? Depression ??? Low levels of testosterone that can result in lower sex drive, energy, and strength ??? Itching and sweating RISKS ARE GREATER WITH: ??? History of drug misuse, substance use disorder, or overdose ??? Mental health conditions (such as depression or anxiety) ??? Sleep apnea ??? Older age (65 years and older) ??? Avoid alcohol while taking prescription opioids. Also, unless specifically advised by your health care provider, medications to avoid include: ??? Benzodiazepines (such as Xanax or Valium) ??? Muscle relaxants (such as Soma or Flexeril) ??? Hypnotics (such as Ambien or Lunesta) ??? Other prescription opioids KNOW YOUR OPTIONS Talk to your health care provider about ways to manage your pain that don???t involve prescription opioids. Some of these options may actually work better and have fewer risks and side effects. Options may include: ??? Pain relievers such as acetaminophen, ibuprofen, and naproxen ??? Some medication that are also used for depression or seizures ??? Physical therapy and exercise ??? Cognitive behavioral therapy, a psychological, goal-directed approach, in which patients learn how to modify physical, behavioral, and emotional triggers of pain and stress. IF YOU ARE PRESCRIBED OPIOIDS FOR PAIN: ??? Never take opioids in greater amounts or more often than prescribed. ??? Follow up with your primary health care provider. o Work together to create a plan on how to manage your pain. o Talk about ways to help manage your pain that don???t involve prescription opioids. o Talk about any and all concerns and side effects. ??? Help prevent misuse and abuse o Never sell or share prescription opioids. o Never use another person???s prescription opioids. ??? Store prescription opioids in a secure place and out of reach of others (this may include visitors, children, friends, and family). ??? Safely dispose of unused prescription opioids: Find your community drug take-back program or your pharmacy mail-back program, or flush them down the toilet, following guidance from the Food and Drug Administration (www.fda.gov/Drugs/Re sourcesForYou). ??? Visit www.cdc.gov/drugoverd ose to learn about the risks of opioids abuse and overdose. ??? If you believe you may be struggling with addiction, tell your health physician assistant primary care and ask for guidance or call [facility]???S National Helpline at 3-282-795-WKP (more content not included)... Normal [facility] Extra Blueon 07-17-2024 Tube Collected Plasma Yes Invalid Interpretation Code [facility] Comment on above: Performed By: #### 1 [id number] #### [facility] [address] [place] [address] Hep Func Panelon 07-17-2024 Albumin [Mass/Vol] 4.1 g/dL Normal 3.3-5.0 [facility] Comment on above: Performed By: #### 2 [id number] #### [facility] [address] [place] [address] Albumin/Globulin (S) [Mass conc ratio] 1.3 Normal 1.1-2.2 [facility] Comment on above: Performed By: #### 2 [id number] #### [facility] [address] [place] [address] ALP [Catalytic activity/Vol] 88 Int._Unit/L Normal 21-98 [facility] Comment on above: Performed By: #### 2 [id number] #### [facility] [address] [place] [address] ALT No additional P-5'-P [Catalytic activity/Vol] 23 Int._Unit/L Normal 6-46 [facility] Comment on above: Performed By: #### 2 [id number] #### [facility] [address] [place] [address] AST [Catalytic activity/Vol] 13 Int._Unit/L Normal 5-43 [facility] Comment on above: Performed By: #### 2 [id number] #### [facility] [address] [place] [address] Bilirubin [Mass/Vol] 0.5 mg/dL Normal 0.0-1.1 [facility] Comment on above: Performed By: #### 2 188569 #### [facility] [address] [place] [address] Bilirubin.direct [Mass/Vol] 0.1 mg/dL Normal 0.0-0.4 [facility] Comment on above: Performed By: #### 2 099201 #### [facility] [address] [place] [address] Bilirubin.indirect [Mass or moles/Vol] 0.4 mg/dL Normal 0.1-0.9 [facility] Comment on above: Performed By: #### 2 858600 #### [facility] [address] [place] [address] Globulin (S) [Mass/Vol] 3.1 g/dL Normal 1.4-4.0 [facility] Comment on above: Performed By: #### 2 [id number] #### [facility] [address] [place] [address] Protein [Mass/Vol] 7.2 g/dL Normal 6.0-7.8 [facility] Comment on above: Performed By: #### 2 101902 #### [facility] [address] [place] [address] Lipase Levelon 07-17-2024 Lipase [Catalytic activity/Vol] 6 U/L Low 13-58 [facility] Comment on above: Performed By: #### 2 412805 #### [facility] [address] [place] [address] eGFRon 07-17-2024 eGFR 123 mL/min/1.73 m2 Normal >=59 [facility] Comment on above: Performed By: #### 1 [id number] #### [facility] [address] [place] [address] ED Note-Physicianon 04-12-20 24 ED Note-Physician ED Note-Physician Basic Information Time Seen: Nadine Concepcion PA-C 04/09/2024 12:56 Chief Complaint Pt having L [...] neurovascularly intact, radial pulse palpable, 3/5 left boilermaker strength secondary to pain GI: Soft no [...] cervical region) (more content not included)... Normal [facility] Comment on above: Result Comment: Elec tronically Signed By: Nadine Concepcion PA-C\.br\Date and Time Signed: 04/09/24 15:57 EDT\.br\Electronically Co-Signed By: Tan Dempsey DO\.br\Date and Time Co-Signed: 04/12/24 07:32 EDT BMPon 04-09-2024 Anion gap [Moles/Vol] 11 mmol/L Normal 6-16 [facility] Comment on above: Performed By: #### 2 214133 #### [facility] [address] [place] [address] Calcium [Mass/Vol] 9.2 mg/dL Normal 8.9-11.1 [facility] Comment on above: Performed By: #### 2 [id number] #### [facility] [address] [place] [address] Chloride [Moles/Vol] 100 mmol/L Low 101-111 [facility] Comment on above: Performed By: #### 2 [id number] #### [facility] [address] [place] [address] CO2 [Moles/Vol] 26 mmol/L Normal 21-31 [facility] Comment on above: Performed By: #### 2 360677 #### [facility] [address] [place] [address] Creatinine [Mass/Vol] 0.7 mg/dL Normal 0.5-1.3 [facility] Comment on above: Performed By: #### 2 [id number] #### [facility] [address] [place] [address] Glucose [Mass/Vol] 147 mg/dL Normal 55-199 [facility] Comment on above: Performed By: #### 2 444781 #### [facility] [address] [place] [address] Potassium [Moles/Vol] 3.9 mmol/L Normal 3.5-5.3 [facility] Comment on above: Performed By: #### 2 [id number] #### [facility] [address] [place] [address] Sodium [Moles/Vol] 133 mmol/L Low 135-145 [facility] Comment on above: Performed By: #### 2 [id number] #### [facility] [address] [place] [address] Urea nitrogen [Mass/Vol] 10 mg/dL Normal 5-21 [facility] Comment on above: Performed By: #### 2 [id number] #### [facility] [address] [place] [address] Urea nitrogen/Creatinine [Mass ratio] 14 No Units Normal 10-20 [facility] Comment on above: Performed By: #### 2 [id number] #### [facility] [address] [place] [address] CBC w/ Auto Diffon 4 Basophils/100 WBC (Bld) 1.1 % Normal 0.0-2.0 [facility] Comment on above: Performed By: #### 2 [id number] #### [facility] [address] [place] [address] Basophils/Leukocytes Auto (Bld) [Pure # fraction] 0.1 E9/L Normal 0.0-0.2 [facility] Comment on above: Performed By: #### 2 [id number] #### [facility] [address] [place] [address] Eosinophils (Bld) [#/Vol] 0.2 E9/L Normal 0.0-0.5 [facility] Comment on above: Performed By: #### 2 [id number] #### [facility] [address] [place] [address] Eosinophils/100 WBC (Bld) 1.8 % Normal 0.0-8.0 [facility] Comment on above: Performed By: #### 2 117189 #### [facility] [address] [place] [address] Erythrocyte distribution width (RBC) [Ratio] 14.1 % Normal 10.9-14.2 [facility] Comment on above: Performed By: #### 2 [id number] #### [facility] [address] [place] [address] Hematocrit (Bld) [Volume fraction] 43.9 % Normal 37.7-49.0 [facility] Comment on above: Performed By: #### 2 [id number] #### [facility] [address] [place] [address] Hemoglobin (Bld) [Mass/Vol] 15.2 g/dL Normal 13.5-17.5 [facility] Comment on above: Performed By: #### 2 171646 #### [facility] [address] [place] [address] Lymphocytes (Bld) [#/Vol] 2.9 E9/L Normal 1.0-4.0 [facility] Comment on above: Performed By: #### 2 541736 #### [facility] [address] [place] [address] Lymphocytes/100 WBC (Bld) 23.3 % Normal 14.0-50.0 [facility] Comment on above: Performed By: #### 2 778768 #### [facility] [address] [place] [address] MCH (RBC) [Entitic mass] 29.0 pg Normal 27.0-34.0 [facility] Comment on above: Performed By: #### 2 999141 #### [facility] [address] [place] [address] MCHC (RBC) [Mass/Vol] 34.6 g/dL Normal 31.4-36.0 [facility] Comment on above: Performed By: #### 2 354041 #### [facility] [address] [place] [address] MCV (RBC) [Entitic vol] 83.8 fL Normal 80.0-100.0 F [facility] Comment on above: Performed By: #### 2 234169 #### [facility] [address] [place] [address] Monocytes (Bld) [#/Vol] 0.7 E9/L Normal 0.2-1.0 F [facility] Comment on above: Performed By: #### 2 [id number] #### [facility] [address] [place] [address] Neutrophils (Bld) [#/Vol] 8.4 E9/L High 2.0-7.5 [facility] Comment on above: Performed By: #### 2 739117 #### [facility] [address] [place] [address] Neutrophils/100 WBC (Bld) 68.2 % Normal 36.0-75.0 [facility] Comment on above: Performed By: #### 2 872903 #### [facility] [address] [place] [address] Platelet 283.0 E9/L Normal 150.0-500.0 [facility] Comment on above: Performed By: #### 2 733711 #### [facility] [address] [place] [address] Platelet mean volume (Bld) [Entitic vol] 9.4 fL Normal 6.4-10.8 [facility] Comment on above: Performed By: #### 2 873450 #### [facility] [address] [place] [address] RBC (Bld) [#/Vol] 5.2 E12/L Normal 4.3-5.9 [facility] Comment on above: Performed By: #### 2 [id number] #### [facility] [address] [place] [address] WBC corrected for nucl RBC Auto (Bld) [#/Vol] 12.3 E9/L High 4.0-11.0 [facility] Comment on above: Performed By: #### 2 178474 #### [facility] [address] [place] [address] CHEMISTRYOrdered By: SYSTEM SYSTEM on 04-09-2024 Troponin [...] High Sensitivity Troponin I Instructions For Use, Ejsus Josafat, March 2018) Anion gap [Moles/Vol] 11 mmol/L [...] Instructions For Use, Jesus Josafat, March 2018) Urea nitrogen [Mass/Vol] 10 mg/dL Normal 5 - 21 mg/dL Remisol Chem Urea nitrogen/Creatinine [Mass ratio] 14 mg/mg Normal 10 - 20 [facility] COAGULATIONOrdered By: Yash Jarrett on 04-09-2024 aPTT Coag (PPP) [Time] 33.9 s Normal 25.1 - 36.5 second(s) [facility] Comment on above: Interpretive Data: [...] the same coagulation reagent and instrumentation as [facility]. Currently there are no coagulation studies available worldwide for children to 14 days, and no normal ranges. Heparin therapeutic range (represented by Anti-Factor Xa activity of 0.2 - 0.4 U/mL) corresponds to PTT of 56.6 - 109.0 sec. INR Coag (PPP) [Relative time] 1.02 {INR} Invalid Interpretation Code [facility] Comment on above: Interpretive Data: I NR results are specifically intended to assess patients stabilized on long-term Anticoagulation therapy suggested INR s Less Intensive Anticoagulation 2.0 3.0 Conventional Range 3.0 4.5 PT Coag (PPP) [Time] 11.4 s Normal 9.4 - 1 2.5 second(s) [facility] Comment on above: Interpretive Data: [...] the same coagulation reagent and instrumentation as [facility]. Currently there are no coagulation studies available worldwide for children to 14 days, and no normal ranges. CRPon 04-09-2024 CRP [Mass/Vol] 0.8 mg/dL Normal <=1.9 [facility] Comment on above: Performed By: #### 2 [id number] #### [facility] [address] [place] [address] CT Spine Cervical w/o Contra ston 04-09-2024 CT Spine Cervical w/o Contrast Exam [...] MD Transcribed by: ALEJANDRA Technologist: ANA [facility] ED Clinical Summaryon 2023 ED Clinical Summary ED Clinical Summary [address] [address] ED Clinical Summary Person Information Name: DEVON MATHEW/[facility] Age: 43 Years : 1980 Sex: Male Language: Macedonian PCP: NONE, XXXX Marital Status: Single Visit [...] 04/09/2024 16:17:04 04/09/2024 16:17:04 04/09/2024 16:17:04 ADDRESS: [address] [place] [phone] PHYS DOC NOTES: MEDICAL INFORMATION: Prescriptions Given: New Medications [id number], [address] [place], [place] [id number], [phone] acetaminophen-oxycodo ne (Percocet 5 mg-325 mg oral [...] day. PATIENT EDUCATION INFORMATION: Instructions: Cervical Radiculopathy, Envr-ze-Afno Follow up: With: Address: When: Swapnil Morgan C, [address] [place] [address] Business (1) In 3 days 04/12/2024 Comments: Call to schedule a follow-up appointment with the family physician for further management of care. Use the Percocet as needed for pain management. Take the prednisone as prescribed. Return to the ED with any worsening symptoms. DIAGNOSIS: Radiculopathy of cervical region Normal [facility] ED Patient Summaryon 024 ED Patient Summary ED Patient Summary [address] [address] Patient Discharge Instructions Person Information Name: DEVON MATHEW Age: 43 Years Arrival Date: 04/09/2024 12:49:26 Discharge Diagnosis: Radiculopathy of cervical region Primary Care Physician: NONE, XXXX Provider Information Primary Provider: Tan Dempsey DO Advanced Equipment Sales Specialist:Nadine Concepcion PA-C The exam and treatment you received in the Emergency Department were for an urgent problem and are not intended as complete care. It is important that you follow up with a doctor, nurse practitioner, or physician?s education administrative assistant for ongoing care. If your symptoms become worse or you do not improve as expected and you are unable to reach your usual health care provider, you should return to the Emergency Department. We are available 24 hours a day. DEVON MATHEW has been given the following list of patient education materials, prescriptions and follow-up instructions: Follow-up Instructions: With: Address: When: Anuradha De La Vega [address] [place] [address] Yuki, Swapnil C, [facility] [address] [place] [address] Business (1) In 3 days 04/12/2024 Comments: [...] participating provider. Patient Education Materials: Cervical Radiculopathy, Xrpl-om-Ekxn A MESSAGE TO ALL PATIENTS REGARDING OPIOIDS PRESCRIPTION OPIOIDS: WHAT YOU NEED TO KNOW Prescription opioids can be used to help relieve onwvizvt-fz-hrsplc pain and are often prescribed following a [...] (www.fda.gov/Drugs/Re sourcesFor (more content not included)... Normal [facility] HEMATOLOGYOrdered By: SYSTEM SYSTEM on 04-09-2024 Basophils/100 [...] 9 mm/h Normal 0 - 19 mm/hr [facility] HemeAutoSS Magnesiumon 04-09-2024 Magnesium [Mass/Vol] 1.8 mg/dL Normal 1.3-2.4 [facility] Comment on above: Performed By: #### 2 [id number] #### [facility] [address] [place] [address] PT & PTTon 04-09-2024 aPTT Coag (PPP) [Time] 33.9 second(s) Normal 25.1-36.5 [facility] Comment on above: Result Comment: Para meter [...] the same coagulation reagent and instrumentation as [facility]. Currently there are no coagulation studies available worldwide for children to 14 days, and no normal ranges. Heparin therapeutic range (represented by Anti-Factor Xa activity of 0.2 - 0.4 U/mL) corresponds to PTT of 56.6 - 109.0 sec. Performed By: #### 1 [id number] #### [facility] [address] [place] [address] INR Coag (PPP) [Relative time] 1.02 {INR} Invalid Interpretation Code [facility] Comment on above: Result Comment: INR results are specifically intended to assess patients stabilized on long-term Anticoagulation therapy suggested INR?s ?Less Intensive Anticoagulation? 2.0 ? 3.0 Conventional Range 3.0 ? 4.5 Performed By: #### 1 [id number] #### [facility] [address] [place] [address] PT Coag (PPP) [Time] 11.4 second(s) Normal 9.4-12.5 [facility] Comment on above: Result Comment: 15 d [...] the same coagulation reagent and instrumentation as [facility]. Currently there are no coagulation studies available worldwide for children to 14 days, and no normal ranges. Performed By: #### 1 [id number] #### [facility] [address] [place] [address] Sed Rate Automatedon 024 ESR (Bld) [Velocity] 9 mm/h Normal 0-19 [facility] Comment on above: Performed By: #### 1 [id number] #### [facility] [address] [place] [address] Troponin 0 Hr.on 04-09-2024 Troponin HS 7.00 pg/mL Low 15.90-38.40 [facility] Comment on above: Result Comment: The 95% CI (Confidence Interval) PPV (Positive Predictive Value) for myocardial infarction in females is 38 pg/mL, in males 51 pg/mL. The results should be used in conjunction with clinical conditions of myocardial infarction. (Access High Sensitivity Troponin I Instructions For Use, [employer], March 2018) Performed By: #### 1 [id number] #### [facility] [address] [place] [address] Troponin 1 Hr.on 04-09-2024 Troponin HS 7.00 pg/mL Low 15.90-38.40 [facility] Comment on above: Order Comment: Due a t 1431 Result Comment: The 95% CI (Confidence Interval) PPV (Positive Predictive Value) for myocardial infarction in females is 38 pg/mL, in males 51 pg/mL. The results should be used in conjunction with clinical conditions of myocardial infarction. (Access High Sensitivity Troponin I Instructions For Use, [employer], March 2018) Performed By: #### 1 [id number] #### [facility] [address] [place] [address] XR Chest Single Viewon 04-09 XR Chest [...] mGy = na DAP = na Normal [facility] eGFRon 04-09-2024 eGFR 118 mL/min/1.73 m2 Normal >=59 [facility] Comment on above: Order Comment: Order added by Discern Expert. Performed By: #### 1 [id number] #### [facility] [address] [place] [address] ED Clinical Summaryon 2023 ED Clinical Summary ED Clinical Summary [address] [address] ED Clinical Summary Person Information Name: DEVON MATHEW/[place] Age: 43 Years : 1980 Sex: Male Language: Macedonian PCP: AMOL HERNANDEZ Marital Status: Single Visit [...] 04/04/2024 14:43:00 04/04/2024 14:43:00 04/04/2024 14:43:00 ADDRESS: [address] [place] [phone] PHYS DOC NOTES: MEDICAL INFORMATION: Prescriptions Given: New Medications [id number], [address] [place], [place] [id number], [phone] methocarbamol (Robaxin-750 oral tablet) 2 Tablets By [...] up: With: Address: When: Peter Gastelum [address] [place] [address] Business (1) In 3 days 04/07/2024 DIAGNOSIS: Ganglion cyst of wrist Normal [facility] ED Note-Physicianon 04-04-20 ED Note-Physician ED Note-Physician Basic Information Time Seen: Nury RUSHINGReza 04/04/2024 12:28 Chief Complaint Pt has had [...] day(s), # 18 tab(s), Refills(s) 0, Pharmacy: [facility]/pharmacy [facility][id number], 177.1, cm, 04/04/24 12:32:00 EDT, Height/Length Dosing, 124.7, kg, 04/04/24 12:32:00 EDT, Weight Dosing naproxen, 500 mg = 1 tab(s), Oral, BID, PRN for pain, # 20 tab(s), Refills(s) 0, Pharmacy: [facility]/pharmacy #[id number], 177.1, cm, 04/04/24 12:32:00 EDT, Height/Length [...] Gastelum In 3 days 04/07/2024 EDT [address] [place] [address]- Business (1) Additional Instructions: Patient Education Radial [...] made to ensure accuracy, however, inadvertently computerized photography intern mistakes may be present. Appropriate healthcare PPE [...] Tobacco Use:. (more content not included)... [facility] Comment on above: Result Comment: Elec tronically Signed By: Reza Arrington PA-C\.br\Date and Time Signed: 04/04/24 14:38 EDT\.br\Electronically Co-Signed By: John Saldana M.D.\.br\Date and Time Co-Signed: 04/04/24 15:04 EDT ED Patient Summaryon 024 ED Patient Summary ED Patient Summary [place] [id number] Patient Discharge Instructions Person Information Name: DEVON MATHEW Age: 43 Years Arrival Date: 04/04/2024 12:18:09 Discharge Diagnosis: Ganglion cyst of wrist Primary Care Physician: AMOL HERNANDEZ Provider Information Primary Provider: John Saldana M.D. Advanced Equipment Sales Specialist:Reza Arrington PA-C The exam and treatment you received in the Emergency Department were for an urgent problem and are not intended as complete care. It is important that you follow up with a doctor, nurse practitioner, or physician?s education administrative assistant for ongoing care. If your symptoms become worse or you do not improve as expected and you are unable to reach your usual health care provider, you should return to the Emergency Department. We are available 24 hours a day. MATHEW, CORY has been given the following list of patient education materials, prescriptions and follow-up instructions: Follow-up Instructions: With: Address: When: Peter Gastelum [address] [place] [address] [employer] In 3 days 04/07/2024 In the event that this physician does not participate in your insurance network, please consult with your insurance company to find a nearby participating provider. Patient Education Materials: Radial Nerve Palsy; Ganglion Cyst A MESSAGE TO ALL PATIENTS REGARDING OPIOIDS PRESCRIPTION OPIOIDS: WHAT YOU NEED TO KNOW Prescription opioids can be used to help relieve nqushcrl-px-zxarcx pain and are often prescribed following a [...] be struggling with addiction, tell your health physician assistant primary care and ask for guidance or call [facility] National Helpline at [phone] (more content not included)... [facility] Insurance Correspondence Off 11-16-2023 Insurance Correspondence Office [id number]# 1.00TIFF Normal [facility] XR CHEST 2 VWSon 10-30-2023 XR CHEST 2 VWS XR CHEST 2 VWS PA and lateral chest: HISTORY: Shortness of breath and cough. 2 views of the chest are obtained. Cardiac and mediastinal contours are within normal limits. Clear. There is no vascular congestion or effusion. Osseous structures appear intact. IMPRESSION: No acute findings. Finalized by Sagar Mario MD on 10/30/2023 11:17 AM Normal [facility] Coding Queryon 10-29-2023 Coding Query - From: Chaparrita Irvin RN To: Daron SIFUENTES MD; Sent: 10/24/2023 14:37:34 EDT ! Subject: Coding Query Due Date/Time: 10/25/2023 14:37:00 EDT Caller Name: DEVON MATHEW; Caller Number: H Documentation per a microsoft dynamics ax consultant in the medical record indicates this [...] judgment of the documented diagnoses by the microsoft dynamics ax consultant, do you agree with the diagnosis? [___]Yes, I agree with the diagnosis documented by the microsoft dynamics ax consultant. [___]No, I do not agree with the diagnosis documented by the microsoft dynamics ax consultant. Reason: [___]Other: In responding to this request, please exercise your independent professional judgement. The fact that a question is asked does not imply that any particular answer is desired or expected. Thank you!chaparrita [phone] From: Daron SIFUENTES MD To: Chaparrita Irvin RN; Sent: 10/29/2023 12:42:17 EDT Subject: RE: Coding Query Caller Name: DEVON MATHEW; Caller Number: H yes i gree Normal [facility] Echocardiographyon Echocardiography [id number]# 1.00TIFF Normal [facility] Stress EKG Tracingson 2023 Stress EKG Tracings [id number]# 1.00TIFF [facility] MRSA Screenon 10-24-2023 MRSA DNA FERMIN+probe Ql (Unsp spec) Microbiology PROCEDURE: MRSA Screen [R1] SOURCE: Nasal BODY SITE: COLLECTED DATE/TIME: 10/22/2023 00:48 EDT RECEIVED DATE/TIME: 10/22/2023 03:08 EDT START DATE/TIME: 10/22/2023 03:09 EDT FREE TEXT SOURCE: Vickie MEANS DO, DO, Ronobir R FINAL REPORTS Final Report [] Verified Date/Time: 10/24/2023 11:01 EDT MRSA Negative. Performing Locations R1: This test was performed at: [facility], [address] [place] [address], [address] [place] [address], [facility] Comment on above: Performed By: #### 2 [id number] #### [facility] [address] [place] [address] CHEMISTRYOrdered By: Lab ROP User on 10-23-2023 Glucose [Mass/Vol] 271 mg/dL High 55 - 99 mg/dL FTM C POC Subsection Comment on above: Result Comment: Dena PETERSEN POC Device SN [id number] 1 Invalid Interpretation Code [facility] POC Subsection POC User ID [id number] 1 Invalid Interpretation Code [facility] POC Subsection POC Username PATINO, BERONICA Invalid Interpretation Code FT POC Subsection Glucose [Mass/Vol] 279 mg/dL High 55 - 99 mg/dL FTM C POC Subsection Comment on above: Result Comment: Dena cee RN/ POC Device SN [id number] 1 Invalid Interpretation Code [facility] POC Subsection POC User ID [id number] 1 Invalid Interpretation Code [facility] POC Subsection POC Username PATINO, BERONICA Invalid Interpretation Code [facility] POC Subsection CHEMISTRYOrdered [...] 10-05 Glucose [Mass/Vol] 271 mg/dL High 55-99 [facility] Comment on above: Result Comment: Dena cee RN/ Performed By: #### 1 [id number] #### [facility] [address] [place] [address] Glucose [Mass/Vol] 279 mg/dL High 55-99 [facility] Comment on above: Result Comment: Dena cee RN/ Performed By: #### 2 [id number] #### [facility] [address] [place] [address] Discharge Instructionson Discharge Instructions [id number]# 1.00TIFF Normal [facility] Discharge Note-Nursingon Discharge Note-Nursing DEVON MATHEW :1980 [...] Pending Diagnostic Test Results None Pharmacy Information [facility] New Follow Up Appointments after Discharge Follow Up with HATTIE SHANE When: Where: [address] [place] [address] Follow Up with MENDY COOK When: Where: [address] [place] [address]- Business (1) Medications What How Much When Instructions Next Dose New aspirin (aspirin 81 mg Oral EC Tab) 1 Tablets By Mouth Every day 10/24/23 New atorvastatin (Lipitor 40 mg Tab) 1 Tablets By Mouth At bedtime Refills: 1 Pickup at [facility]/pharmacy #[id number] 10/23/23 @9pm New doxycycline (doxycycline hyclate 100 mg Cap) 1 Capsules By Mouth 2 times a day Pickup at [facility]/pharmacy #6177 10/23/23 @9pm New hydrochlorothiazide-l osartan (hydrochlorothiazide- losartan 12.5 mg-100 mg oral tablet) 1 Tablets By Mouth Every day Pickup at [facility]/pharmacy #6177 10/24/23 New metformin (metformin 500 mg Tab) 1 Tablets By Mouth 2 times a day Pickup at [facility]/pharmacy #6177 10/23/23 @9pm Unchanged amlodipine (amLODIPine 10 mg Tab) 1 Tablets By Mouth Every day 10/24/23 Unchanged metoprolol (Metoprolol tartrate 50 mg Tab) 1 Tablets By Mouth 2 times a day 10/23/23 @9pm Unchanged NIFEdipine (NIFEdipine 90 mg ER Tab) 1 Tablets By Mouth Every day 10/24/23 Pharmacy Information [facility]/pharmacy #[id number]: [address] [place], [place] [phone] Test Results CBC BMP WBC: 15.1 E9/L [...] also c (more content not included)... Normal [facility] HEMATOLOGYOrdered By: SYSTEM SYSTEM on 10-23-2023 WBC corrected for nucl RBC Auto (Bld) [#/Vol] 15.1 E9/L High 4.0 - 11.0 E9/L Remisol Heme Inpatient Clinical Summaryon 10-23-2023 Inpatient Clinical Summary [place] [id number] Clinical Summary Person Information: Name: DEVON MATHEW Age: 43 Years : 1980 Sex: Male PCP: HATTIE SHANE CNP Marital Status: Single Race: White Ethnicity: Non- or Language: Macedonian Visit Id: Visit Reason: Increased blood sugar; Fever; Abscess - axilla; BOILS ALL OVER, FEVERS, BLURRY VISION Speciality: Acuity: Enc Type: Inpatient Med Service: Medical Arrival: 10/21/2023 18:35:40 Discharge: Dispo Type: Admitted as IP to this Hosp Address: [address] [place] [phone] Provider Notes: Diagnosis: 1:Elevated troponin; 2:Cough; 3:Abscess; [...] Physician: Follow up: With: Address: When: MENDY COOK [address] [facility] [place] [address] Business (1) With: Address: When: HATTIE SHANE [address] [place], [place] [phone] Business (1) Patient Education Information: Obesity, Adult; Managing Your Hypertension Normal [facility] Inpatient Patient Summaryon 10-23-2023 Inpatient Patient Summary [place] [id number] Patient Discharge Instructions PERSON INFORMATION Name: DEVON MATHEW Date of : 1980 Current Date: 10/23/2023 12:51:11 PHYSICIANS Admitting Physician: Vickie MEANS DO Primary Care Physician: HATTIE SHANE CNP PCP Phone Number: [phone] Comment: Discharge Diagnosis: 1:Elevated troponin; 2:Cough; 3:Abscess; [...] None Follow up: With: Address: When: MENDY COOK [address] [facility] [place], [place] [phone] Business (1) With: Address: When: HATTIE ACOSTA [address] [place], [place] [phone] Business (1) In the event that this physician does not participate in your insurance network, please consult with your insurance company to find a nearby participating provider. Comment: PRIYANKA Stone CORY, have received the attached patient education materials/instruction s and have verbalized understanding: Patient Signature Date Clinican/Nurse Signature Date HERE ARE THE MEDICATION CHANGES THAT OCCURRED DURING YOUR HOSPITAL STAY New Medications [facility], [address] [place], [place] [id number], [phone] atorvastatin (Lipitor 40 mg Tab) 1 Tablets [...] Tablets By Mouth every day. Pharmacy Information: [facility] [place] Comment: PATIENT EDUCATION INFORMATION Instructions: Obesity, Adult [...] of the colon, (more content not included)... [facility] Insurance Correspondence Off ice10-23-2023 Insurance Correspondence Office [id number] #1.00TIFF [facility] Interdisciplinary Note - Toro e Manageron 10-23-2023 Interdisciplinary Note - Industrial Electrician Journeyman P tis awake and alert in bed, previously rounded with Dr. Seymour. at bedside, [facility]. Pt had echo and stress test and aware of plan to DC home today, declines any concerns or DC needs. . PCP verified and insurance information reviewed and DME discussed. Contact information provided and white board updated. Normal [facility] Comment on above: Result Comment: Elec tronically Signed By: Cande JACOBS, Stephanie\.leonor\Date and Time Signed: 10/23/23 12:10 EDT Lipid Panelon 10-23-2023 Cholesterol [Mass/Vol] 172 mg/dL Normal 120-200 Fi [facility] Comment on above: Performed By: #### 2 361318, 3824501 ####[facility] [address] [place] [address] Cholesterol in HDL [Mass/Vol] 26 mg/dL Invalid Interpretation Code [facility] Comment on above: Result Comment: '>= 60 LOW RISK' '<= 40 HIGH RISK' Performed By: #### 2 954889, 2388701 ####[facility] [address] [place] [address] Cholesterol in LDL [Mass/Vol] 120 mg/dL Normal <=129 [facility] Comment on above: Performed By: #### 2 840828, 0221254 ####[facility] [address] [place] [address] Cholesterol in VLDL [Mass/Vol] 34 mg/dL Normal 7-40 [facility] Comment on above: Performed By: #### 2 754891, 2541701 ####[facility] [address] [place] [address] Triglyceride [Mass/Vol] 170 mg/dL High <=149 F [facility] Comment on above: Performed By: #### 2 080963, 1543067 ####[facility] [address] [place] [address] Monitor Recordon 10-23-2023 Monitor Record [id number]# 1.00TIFF Normal [facility] Monitor Record [id number]# 1.00TIFF Normal [facility] Monitor Record [id number]# 1.00TIFF Normal [facility] Progress Note-Physicianon Progress Note-Physician Subjective Patient feeling [...] mg/dL High (10/23/23 07:40:00) POC Device SN: [id number] (10/23/23 07:40:00) POC User ID: [id number] (10/23/23 07:40:00) POC Username: BERONICA PATINO (10/23/23 [...] deep vein thrombosis (DVT) prophylaxis (Z79.899: Other halfway (current) drug therapy) Elevated blood pressure reading [...] BID nicotine (more content not included)... Normal [facility] Comment on above: Result Comment: Elec tronically Signed By: MAXIM POWELL, Houston Jaquez.br\Date and Time Signed: 10/23/23 07:58 EDT WBCon 10-23-2023 WBC corrected for nucl RBC Auto (Bld) [#/Vol] 15.1 E9/L High 4.0-11.0 [facility] Comment on above: Performed By: #### 2 323739, [id number] ####[facility] [address] [place] [address] BMPon 10-22-2023 Anion gap [Moles/Vol] 9 mmol/L Normal 6-16 [facility] Comment on above: Performed By: #### 2 312705 #### [facility] [address] [place] [address] Calcium [Mass/Vol] 8.2 mg/dL Low 8.9-11.1 [facility] Comment on above: Performed By: #### 2 963567 #### [facility] [address] [place] [address] Chloride [Moles/Vol] 104 mmol/L Normal 101-111 [facility] Comment on above: Performed By: #### 2 396255 #### [facility] [address] [place] [address] CO2 [Moles/Vol] 22 mmol/L Normal 21-31 [facility] Comment on above: Performed By: #### 2 763734 #### [facility] [address] [place] [address] Creatinine [Mass/Vol] 0.6 mg/dL Normal 0.5-1.3 [facility] Comment on above: Performed By: #### 2 914358 #### [facility] [address] [place] [address] Glucose [Mass/Vol] 364 mg/dL High 55-199 [facility] Comment on above: Performed By: #### 2 849317 #### [facility] [address] [place] [address] Potassium [Moles/Vol] 4.0 mmol/L Normal 3.5-5.3 [facility] Comment on above: Performed By: #### 2 324321 #### [facility] [address] [place] [address] Sodium [Moles/Vol] 131 mmol/L Low 135-145 [facility] Comment on above: Performed By: #### 2 072162 #### [facility] [address] [place] [address] Urea nitrogen [Mass/Vol] 13 mg/dL Normal 5-21 [facility] Comment on above: Performed By: #### 2 333706 #### [facility] [address] [place] [address] Urea nitrogen/Creatinine [Mass ratio] 22 No Units High 10-20 [facility] Comment on above: Performed By: #### 2 778810 #### [facility] [address] [place] [address] CBC w/Indiceson 10-22-2023 Erythrocyte distribution width (RBC) [Ratio] 13.8 % Normal 10.9-14.2 [facility] Comment on above: Performed By: #### 2 932572 #### [facility] [address] [place] [address] Hematocrit (Bld) [Volume fraction] 36.3 % Low 37.7-49.0 [facility] Comment on above: Performed By: #### 2 352561 #### [facility] [address] [place] [address] Hemoglobin (Bld) [Mass/Vol] 12.4 g/dL Low 13.5-17.5 [facility] Comment on above: Performed By: #### 2 508000 #### [facility] [address] [place] [address] MCH (RBC) [Entitic mass] 28.9 pg Normal 27.0-34.0 [facility] Comment on above: Performed By: #### 2 732745 #### [facility] [address] [place] [address] MCHC (RBC) [Mass/Vol] 34.2 g/dL Normal 31.4-36.0 [facility] Comment on above: Performed By: #### 2 463357 #### [facility] [address] [place] [address] MCV (RBC) [Entitic vol] 84.6 fL Normal 80.0-100.0 [facility] Comment on above: Performed By: #### 2 321724 #### [facility] [address] [place] [address] Platelet mean volume (Bld) [Entitic vol] 9.9 fL Normal 6.4-10.8 [facility] Comment on above: Performed By: #### 2 098572 #### [facility] [address] [place] [address] Platelets (Bld) [#/Vol] 211.0 E9/L Normal 150.0-500.0 [facility] Comment on above: Performed By: #### 2 392210 #### [facility] [address] [place] [address] RBC (Bld) [#/Vol] 4.3 E12/L Normal 4.3-5.9 [facility] Comment on above: Performed By: #### 2 138457 #### [facility] [address] [place] [address] RBC size Nom (Bld) NORMAL Invalid Interpretation Code [facility] Comment on above: Performed By: #### 2 892656 #### [facility] [address] [place] [address] WBC corrected for nucl RBC Auto (Bld) [#/Vol] 13.4 E9/L High 4.0-11.0 [facility] Comment on above: Performed By: #### 2 350367 #### [facility] [address] [place] [address] CHEMISTRYOrdered By: Lab ROP User on 10-22-2023 Glucose [Mass/Vol] 217 mg/dL High 55 - 99 mg/dL [facility] C POC Subsection Comment on above: Result Comment: Dena cee RN/ POC Device SN [id number] 1 Invalid Interpretation Code [facility] POC Subsection POC User ID [id number] 1 Invalid Interpretation Code [facility] POC Subsection POC Username ROMA MEDINA Invalid Interpretation Code [facility] POC Subsection CHEMISTRYOrdered By: SYSTEM SYSTEM on [...] I_TnIHS:62.4 Called to and read back by: LUNA BENTLEY at: 10/22/2023 06:41:12 by:KAYKAY Interpretive Data: T he 95% CI (Confidence Interval) PPV (Positive Predictive Value) for myocardial infarction in females is 38 pg/mL, in males 51 pg/mL. The results should be used in conjunction with clinical conditions of myocardial infarction. (Access High Sensitivity Troponin I Instructions For Use, Jeuss Josafat, March 2018) TSH Qn 1.37 m[IU]/L Normal 0.34 - 5.60 mcIU/mL Remisol Chem Urea nitrogen [Mass/Vol] 13 mg/dL Normal 5 - 21 mg/dL Remisol Chem Urea nitrogen/Creatinine [Mass ratio] 22 mg/mg High 10 - 20 Remisol Chem CHEMISTRYOrdered By: Keisha mejia on 10-22-2023 HbA1c (Bld) [Mass fraction] 9.6 % High <=5.9% [facility] ChemAutoSS Capillary Glucose POCon 10-05 Glucose [Mass/Vol] 217 mg/dL High 55-99 [facility] Comment on above: Result Comment: Dena cee RN/ Performed By: #### 2 [id number] #### [facility] [address] [place] [address] Glucose [Mass/Vol] 309 mg/dL High 55-99 [facility] Comment on above: Result Comment: Dena PETERSEN Performed By: #### 2 883947 #### [facility] [address] [place] [address] Consultation Noteon 10-22-19 24 Consultation Note Chief Complaint pt. went hiking [...] on his back and has gone to [facility] a couple times in the past couple of weeks for treatment. The patient was given prednisone and Lasix, and when this did not improve he came to [facility] emergency room for further evaluation. He [...] 3. Leukocyt (more content not included)... Normal [facility] Comment on above: Result Comment: Elec tronically Signed By: MAXIM POWELL, Houston Osullivan\.leonor\Date and Time Signed: 10/22/23 08:53 EDT HEMATOLOGYOrdered [...] High 4.0 - 11.0 E9/L Remisol Heme [id number] 10-22-2023 HbA1c (Bld) [Mass fraction] 9.6 % High <=5.9 [facility] Comment on above: Performed By: #### 2 349050 #### [facility] [address] [place] [address] Laboratory - Microbiology an d Antimicrobial susceptibilityOrdered By: Marcela Schilling on 10-22-2023 MRSA DNA FERMIN+probe Ql (Unsp spec) MRSA Negative. [facility] Lipid Panelon 10-22-2023 Cholesterol [Mass/Vol] 171 mg/dL Normal 120-200 [facility] Comment on above: Performed By: #### 2 318316 #### [facility] [address] [place] [address] Cholesterol in HDL [Mass/Vol] 23 mg/dL Invalid Interpretation Code [facility] Comment on above: Result Comment: '>= 60 LOW RISK' '<= 40 HIGH RISK' Performed By: #### 2 463535 #### [facility] [address] [place] [address] Cholesterol in LDL [Mass/Vol] 117 mg/dL Normal <=129 [facility] Comment on above: Performed By: #### 2 799640 #### [facility] [address] [place] [address] Cholesterol in VLDL [Mass/Vol] 36 mg/dL Normal 7-40 [facility] Comment on above: Performed By: #### 2 626316 #### [facility] [address] [place] [address] Triglyceride [Mass/Vol] 182 mg/dL High <=149 F [facility] Comment on above: Performed By: #### 2 841479 #### [facility] [address] [place] [address] Magnesiumon 10-22-2023 Magnesium [Mass/Vol] 1.7 mg/dL Normal 1.3-2.4 [facility] Comment on above: Performed By: #### 2 647688 #### [facility] [address] [place] [address] Monitor Recordon 10-22-2023 Monitor Record [id number]# 1.00TIFF Normal [facility] Monitor Record [id number]# 1.00TIFF Normal [facility] Monitor Record [id number]# 1.00TIFF Normal [facility] Monitor Record [id number]# 1.00TIFF Normal [facility] Progress Note-Physicianon Progress Note-Physician Assessment/Plan 43-year-old male [...] lipid profile and start Lipitor appropriately. Ordered: [facility] Care/Day Moderate 35 Minutes 18609 2. Cough (R05.9: Cough, unspecified) Supportive care. Continue on Tessalon Perles as needed and nebulizer treatments. Ordered: [facility] Care/Day Moderate 35 Minutes 32710 3. Abscess (L02.91: Cutaneous abscess, unspecified) Left axilla and left scapula nondraining abscess. Start patient on doxycycline. Ordered: [facility] Care/Day Moderate 35 Minutes 77867 White Blood Count 4. Leukocytosis (D72.829: Elevated white blood cell count, unspecified) Secondary to above abscess. WBC trending down. Ordered: [facility] Care/Day Moderate 35 Minutes 73501 White Blood Count 5. Hyperglycemia (R73.9: Hyperglycemia, unspecified) Secondary to new onset diabetes mellitus. Started patient on sliding scale insulin. Hemoglobin A1c pending. [facility] Moderate 35 Minutes 30141 6. Hyponatremia (E87.1: Hypo-osmolality and hyponatremia) Secondary [...] uncontrolled. Continue on metoprolol, nifedipine. Seen by chairman & co founder and hydrochlorothiazide and losartan were added. 9. Obese (E66.9: Obesity, unspecified) Recommend therapeutic lifestyle modification changes. 10. Tobacco use (Z72.0: Tobacco use) Recommend cessation. Continue nicotine patch. 11. On deep vein thrombosis (DVT) prophylaxis (Z79.899: Other halfway (current) drug therapy) Lovenox. Disposition: Hopefully home in a.m. pending echocardiogram result?May require stress test or cardiac cath. I discussed the diagnosis and plan of care with the patient at the bedside. Moderate level of MDM based on addressing above issues. This documentation was transcribed using voice recognition software. Several attempts were made to ensure accuracy. However inadvertent computerized photography intern errors may be present. Delia Ortiz. Hospitalist. [...] no pharynge (more content not included)... Normal [facility] Comment on above: Result Comment: Elec tronically Signed By: ALEA POWELL, Delia\.br\Date and Time Signed: 10/22/23 09:08 EDT TSH With T4fr Reflexon 10-21 TSH Qn 1.37 m[IU]/L Normal 0.34-5.60 [facility] Comment on above: Performed By: #### 2 072668 #### [facility] [address] [place] [address] Troponinon 10-22-2023 Troponin 62.40 pg/mL Abnormal 15.90-38.40 [facility] Comment on above: Result Comment: Crit ical [...] High Sensitivity Troponin I Instructions For Use, [employer], March 2018) Performed By: #### 2 522238 #### [facility] [address] [place] [address] Troponin 65.80 pg/mL Abnormal 15.90-38.40 [facility] Comment on above: Result Comment: Crit ical Result Verified by Repeat Analysis Critical Result I_TnIHS:65.8 Called to and read back by: GABRIELA SARAH/Amaya at: 10/22/2023 00:32:26 by:LE LYNCH The 95% CI (Confidence Interval) PPV (Positive Predictive Value) for myocardial infarction in females is 38 pg/mL, in males 51 pg/mL. The results should be used in conjunction with clinical conditions of myocardial infarction. (Access High Sensitivity Troponin I Instructions For Use, [employer], March 2018) Performed By: #### 2 [id number] #### [facility] [address] [place] [address] XR Chest 2 Viewson XR Chest 2 Views Exam Date/Time: 10/21/2023 21:59 EDT Reason for Exam: Cough Report [facility] [phone] IMPRESSION: There are no acute cardiopulmonary changes. [...] mGy = na DAP = na Normal [facility] XR Chest Single Viewon 10-21 XR Chest Single View Exam Date/Time: 10/21/2023 19:43 EDT Reason for Exam: Cough Report [facility] [phone] IMPRESSION: There are no acute cardiopulmonary changes. [...] mGy = na DAP = na Normal [facility] eGFRon 10-22-2023 eGFR 123 mL/min/1.73 m2 Normal >=59 [facility] Comment on above: Order Comment: Order added by Discern Expert. Performed By: #### 2 265571 #### [facility] [address] [place] [address] BNPon 10-21-2023 Natriuretic peptide B (Bld) [Mass/Vol] 8 pg/mL Normal 5-80 [facility] Comment on above: Performed By: #### 2 006381, 88851120, 1707918, 1728900, 55186782, 1703359900, 8454220, 09122265, 308847735 ####[facility] [address] [place] [address] BOHBon 10-21-2023 Beta HB Qnt 0.10 mmol/L Normal 0.02-0.27 [facility] Comment on above: Performed By: #### 2 084856, 97930802, 5524822, 9872988, 44348686, 4259122530, 5322940, 44117536, 711745759 ####[facility] [address] [place] [address] Bld Gas Venon 10-21-2023 Allens Test Not Applicable Normal [facility] Comment on above: Performed By: #### 1 9534216 #### [facility] [address] [place] [address] Drawn by lab Invalid Interpretation Code [facility] Comment on above: Performed By: #### 1 4098313 #### [facility] [address] [place] [address] FIO2 BG 21 Invalid Interpretation Code [facility] Comment on above: Performed By: #### 1 8542102 #### [facility] [address] [place] [address] pCO2 Maikel 40.7 mmHg Normal 38.0-50.0 [facility] Comment on above: Performed By: #### 1 3324773 #### [facility] [address] [place] [address] pH Maiekl 7.401 Normal 7.320-7.430 [facility] Comment on above: Performed By: #### 1 0376894 #### [facility] [address] [place] [address] Sample Site OTHER Normal [facility] Comment on above: Performed By: #### 1 8960162 #### [facility] [address] [place] [address] Sample Type Venous Draw Normal [facility] Comment on above: Performed By: #### 1 3526262 #### [facility] [address] [place], [place] [address] CBC w/ Auto Diffon 4 Basophils/100 WBC (Bld) 0.2 % Normal 0.0-2.0 F [facility] Comment on above: Performed By: #### 2 540783, 35032598, 1654167, 7559489, 41262635, 6223161126, 4593804, 29730055, 314396253 #### [facility] [address] [place] [address] Basophils/Leukocytes Auto (Bld) [Pure # fraction] 0.0 E9/L Normal 0.0-0.2 [facility] Comment on above: Performed By: #### 2 181400, 27666120, 6591600, 9640343, 49573213, 8416314720, 5117154, 60478798, 746719052 #### [facility] [address] [place] [address] Eosinophils (Bld) [#/Vol] 0.1 E9/L Normal 0.0-0.5 [facility] Comment on above: Performed By: #### 2 649795, 10133357, 4266266, 0926007, 91383216, 1379461179, 5145137, 80980174, 307436124 #### [facility] [address] [place], [place] [address] Eosinophils/100 WBC (Bld) 0.7 % Normal 0.0-8.0 [facility] Comment on above: Performed By: #### 2 811745, 74775504, 3388643, 6900609, 01177294, 9978680620, 6970820, 84807273, 841599055 #### [facility] [address] [place] [address] Erythrocyte distribution width (RBC) [Ratio] 13.7 % Normal 10.9-14.2 [facility] Comment on above: Performed By: #### 2 740455, 02304015, 9509020, 1532789, 83128956, 1585665475, 2944719, 70372651, 853242092 #### [facility] [address] [place] [address] Hematocrit (Bld) [Volume fraction] 41.6 % Normal 37.7-49.0 [facility] Comment on above: Performed By: #### 2 979122, 19646495, 1003966, 8936198, 72765059, 4517023236, 6267196, 98954622, 258050799 #### [facility] [address] [place] [address] Hemoglobin (Bld) [Mass/Vol] 14.3 g/dL Normal 13.5-17.5 [facility] Comment on above: Performed By: #### 2 692113, 69031798, 6979318, 8470559, 58612279, 8077740691, 7365184, 38581638, 928665422 #### [facility] [address] [place] [address] Lymphocytes (Bld) [#/Vol] 4.0 E9/L Normal 1.0-4.0 [facility] Comment on above: Performed By: #### 2 745788, 83284087, 3879251, 7432150, 69830057, 6143320226, 4679236, 42897991, 327264423 #### [facility] [address] [place] [address] Lymphocytes/100 WBC (Bld) 25.2 % Normal 14.0-50.0 [facility] Comment on above: Performed By: #### 2 082432, 15794277, 7749107, 7026097, 62623536, 1766301317, 0647044, 30688449, 341799946 #### [facility] [address] [place] [address] MCH (RBC) [Entitic mass] 29.0 pg Normal 27.0-34.0 [facility] Comment on above: Performed By: #### 2 684791, 56032274, 3749580, 9367822, 10862634, 6901055315, 7273768, 50096196, 551219777 #### [facility] [address] [place] [address] MCHC (RBC) [Mass/Vol] 34.3 g/dL Normal 31.4-36.0 [facility] Comment on above: Performed By: #### 2 386870, 61613135, 2052734, 4750994, 23279209, 5251369079, 6198824, 09454517, 832448942 #### [facility] [address] [place], [place] [address] MCV (RBC) [Entitic vol] 84.7 fL Normal 80.0-100.0 F [facility] Comment on above: Performed By: #### 2 925717, 78187821, 9633804, 8989437, 00338931, 3737168134, 9036747, 60773261, 847786782 #### [facility] [address] [place] [address] Monocytes (Bld) [#/Vol] 0.8 E9/L Normal 0.2-1.0 F [facility] Comment on above: Performed By: #### 2 002337, 77113437, 6886723, 9078132, 14585023, 8804124259, 8135863, 19607261, 575757596 #### [facility] [address] [place] [address] Neutrophils (Bld) [#/Vol] 10.9 E9/L High 2.0-7.5 [facility] Comment on above: Performed By: #### 2 017039, 85068095, 6099535, 6685499, 20102570, 9330544467, 1385430, 15377353, 050569921 #### [facility] [address] [place] [address] Neutrophils/100 WBC (Bld) 68.7 % Normal 36.0-75.0 [facility] Comment on above: Performed By: #### 2 474341, 68145245, 8093163, 6356980, 96184522, 1935044703, 9602030, 98888823, 534850397 #### [facility] [address] [place] [address] Platelet mean volume (Bld) [Entitic vol] 9.5 fL Normal 6.4-10.8 [facility] Comment on above: Performed By: #### 2 726623, 42974855, 7152373, 7379926, 64849838, 7839961315, 7484325, 55007969, 054268864 #### [facility] [address] [place] [address] Platelets (Bld) [#/Vol] 251.0 E9/L Normal 150.0-500.0 [facility] Comment on above: Performed By: #### 2 327014, 86601731, 5349351, 2438717, 55460411, 7867584958, 2383363, 28223403, 143915205 #### [facility] [address] [place] [address] RBC (Bld) [#/Vol] 4.9 E12/L Normal 4.3-5.9 [facility] Comment on above: Performed By: #### 2 494711, 22837878, 8193769, 6834766, 55948870, 0291447803, 0968637, 65467832, 461825370 #### [facility] [address] [place] [address] WBC corrected for nucl RBC Auto (Bld) [#/Vol] 15.8 E9/L High 4.0-11.0 [facility] Comment on above: Performed By: #### 2 607961, 90898525, 6518879, 8980739, 19586474, 0986774869, 8439559, 89674356, 351391969 #### [facility] [address] [place] [address] CHEMISTRYOrdered By: SYSTEM SYSTEM on 10-21-2023 Troponin 65.80 pg/mL Invalid Interpretation Code 15.90 - 38.40 pg/mL Remisol Chem Comment on above: Result Comment: Crit ical Result Verified by Repeat Analysis Critical Result I_TnIHS:65.8 Called to and read back by: GABRIELA SARAH/3S at: 10/22/2023 00:32:26 by:LE LYNCH Interpretive Data: T he 95% CI (Confidence Interval) PPV (Positive Predictive Value) for myocardial infarction in females is 38 pg/mL, in males 51 pg/mL. The results should be used in conjunction with clinical conditions of myocardial infarction. (Access High Sensitivity Troponin I Instructions For Use, Jesus Josafat, March 2018) Albumin [Mass/Vol] 4.0 g/dL Normal [...] Instructions For Use, Jesus Josafat, March 2018) Urea nitrogen [Mass/Vol] 17 mg/dL Normal 5 - 21 mg/dL Remisol Chem Urea nitrogen/Creatinine [Mass ratio] 19 mg/mg Normal 10 - 20 Remisol Chem CHEMISTRYOrdered By: Sunitha Lynch on 10-21-2023 Natriuretic peptide B (Bld) [Mass/Vol] 8 pg/mL Normal 5 - 80 pg/mL [facility] Michelle CMPon 10-21-2023 Albumin [Mass/Vol] 4.0 g/dL Normal 3.3-5.0 [facility] Comment on above: Performed By: #### 2 497568, 00665200, 7065744, 9725912, 91094940, 2989291789, 5091119, 76465295, 849495546 #### [facility] [address] [place] [address] Albumin/Globulin (S) [Mass conc ratio] 1.5 Normal 1.1-2.2 [facility] Comment on above: Performed By: #### 2 497964, 17798415, 9052905, 7628473, 44641357, 6233338137, 9129266, 69533535, 719388839 #### [facility] [address] [place] [address] ALP [Catalytic activity/Vol] 75 Int._Unit/L Normal 21-98 [facility] Comment on above: Performed By: #### 2 780987, 31364278, 2772309, 2106580, 02235052, 2282912385, 4225640, 43426403, 383138109 #### [facility] [address] [place] [address] ALT No additional P-5'-P [Catalytic activity/Vol] 25 Int._Unit/L Normal 6-46 [facility] Comment on above: Performed By: #### 2 980827, 32098946, 1534998, 5094020, 98568804, [id number], 8019429, 79282619, [id number] #### [facility] [address] [place] [address] Anion gap [Moles/Vol] 13 mmol/L Normal 6-16 [facility] Comment on above: Performed By: #### 2 226383, 80103786, 6798560, 6312668, 04458791, 9443435146, 8336829, 65466884, 261145217 #### [facility] [address] [place] [address] AST [Catalytic activity/Vol] 15 Int._Unit/L Normal 5-43 [facility] Comment on above: Performed By: #### 2 344635, 71844525, 0513974, 8385798, 09847307, 6675624019, 6907844, 20951434, 651395686 #### [facility] [address] [place] [address] Bilirubin [Mass/Vol] 0.5 mg/dL Normal 0.0-1.1 [facility] Comment on above: Performed By: #### 2 378400, 06309032, 1636344, 1342720, 46511374, 7771842540, 8217727, 10336693, 900897904 #### [facility] [address] [place] [address] Calcium [Mass/Vol] 9.0 mg/dL Normal 8.9-11.1 [facility] Comment on above: Performed By: #### 2 478525, 08056175, 4068960, 0257491, 86176331, 0926950066, 6877800, 74332616, 386252983 #### [facility] [address] [place] [address] Chloride [Moles/Vol] 97 mmol/L Low 101-111 [facility] Comment on above: Performed By: #### 2 030240, 82742759, 1158939, 7835923, 06354087, 8777169216, 6897997, 69925808, 978790246 #### [facility] [address] [place] [address] CO2 [Moles/Vol] 22 mmol/L Normal 21-31 [facility] Comment on above: Performed By: #### 2 827850, 32346888, 3440013, 8779281, 65555976, 2524963682, 2048090, 14935445, 961394283 #### [facility] [address] [place] [address] Creatinine [Mass/Vol] 0.9 mg/dL Normal 0.5-1.3 [facility] Comment on above: Performed By: #### 2 744754, 00417450, 9916532, 2976183, 75305200, 7752161054, 8910390, 73643501, 176297787 #### [facility] [address] [place] [address] Globulin (S) [Mass/Vol] 2.6 g/dL Normal 1.4-4.0 [facility] Comment on above: Performed By: #### 2 185931, 83449976, 5543618, 8943542, 56556751, 8489912909, 8798248, 15576126, 144723815 #### [facility] [address] [place] [address] Glucose [Mass/Vol] 417 mg/dL High 55-199 [facility] Comment on above: Performed By: #### 2 999497, 68294951, 9396024, 4310594, 47873486, 1388085331, 5920421, 35816328, 049467133 #### [facility] [address] [place] [address] Potassium [Moles/Vol] 3.8 mmol/L Normal 3.5-5.3 [facility] Comment on above: Performed By: #### 2 335276, 21458007, 1602203, 8309435, 62584822, 0212788519, 1764204, 80289633, 864691170 #### [facility] [address] [place] [address] Protein [Mass/Vol] 6.6 g/dL Normal 6.0-7.8 [facility] Comment on above: Performed By: #### 2 922982, 60721365, 9434607, 0752777, 95085406, 6027612547, 8969033, 04270095, 364462712 #### [facility] [address] [place] [address] Sodium [Moles/Vol] 128 mmol/L Low 135-145 [facility] Comment on above: Performed By: #### 2 943234, 04071022, 9889354, 4678971, 32270857, 5383109711, 5364276, 09105193, 494767635 #### [facility] [address] [place] [address] Urea nitrogen [Mass/Vol] 17 mg/dL Normal 5-21 [facility] Comment on above: Performed By: #### 2 278206, 97563752, 1080821, 1351032, 78087779, 0970890334, 0148490, 20028282, 475546966 #### [facility] [address] [place] [address] Urea nitrogen/Creatinine [Mass ratio] 19 No Units Normal 10-20 [facility] Comment on above: Performed By: #### 2 114716, 24369768, 5582325, 8035267, 35890746, 7016386293, 4961693, 05241007, 066091152 #### [facility] [address] [place] [address] COAGULATIONOrdered By: Kingsley Zheng on 10-21-2023 aPTT Coag (PPP) [Time] 29.4 s Normal 25.1 - 36.5 second(s) [facility] Auto Coag Comment on above: Interpretive Data: [...] the same coagulation reagent and instrumentation as [facility]. Currently there are no coagulation studies available worldwide for children to 14 days, and no normal ranges. Heparin therapeutic range (represented by Anti-Factor Xa activity of 0.2 - 0.4 U/mL) corresponds to PTT of 56.6 - 109.0 sec. INR Coag (PPP) [Relative time] 1.02 {INR} Invalid Interpretation Code [facility] Comment on above: Interpretive Data: I NR results are specifically intended to assess patients stabilized on long-term Anticoagulation therapy suggested INR s Less Intensive Anticoagulation 2.0 3.0 Conventional Range 3.0 4.5 PT Coag (PPP) [Time] 11.4 s Normal 9.4 - 1 2.5 second(s) [facility] Comment on above: Interpretive Data: [...] the same coagulation reagent and instrumentation as [facility]. Currently there are no coagulation studies available worldwide for children to 14 days, and no normal ranges. Capillary Glucose POCon 10-05 Glucose [Mass/Vol] 254 mg/dL High 55-99 [facility] Comment on above: Result Comment: Dena PETERSEN Performed By: #### 2 [id number] #### [facility] [address] [place] [address] Glucose [Mass/Vol] 440 mg/dL High 55-99 [facility] Comment on above: Result Comment: Dena PETERSEN Performed By: #### 2 [id number] #### [facility] [address] [place] [address] Consent for Treatmenton 10-05 Consent for Treatment [id number] .00TIFF Normal [facility] ED Clinical Summaryon 2023 ED Clinical Summary [address] [address] ED Clinical Summary Person Information Name: DEVON MATHEW/[facility] Age: 43 Years : 1980 Sex: Male Language: Macedonian PCP: HATTIE SHANE CNP Marital Status: Single Phone: Visit Id: Visit Reason: Increased blood sugar; Fever; Abscess - axilla; BOILS ALL OVER, FEVERS, BLURRY VISION Speciality: Acuity: 3 Enc Type: Inpatient Med Service: Emergency Arrival: 10/21/2023 18:35:40 Discharge: LOS: 000 03:14 Checkin: 10/21/2023 18:35:40 Checkout: 10/21/2023 21:49:42 Dispo Type: Admitted as IP to this [facility] EVENTS: Event Name Event Status Request Date/Time [...] 21:02:25 Patient Care Request 10/21/2023 21:02:25 ADDRESS: [address] [place] [phone] PHYS DOC NOTES: MEDICAL INFORMATION: Prescriptions Given: PATIENT EDUCATION INFORMATION: Instructions: Follow up: DIAGNOSIS: Abscess; Elevated blood pressure reading; Elevated troponin; Hyperglycemia; Pneumonia; Sepsis Normal [facility] ED Note-Physicianon 10-21-19 ED Note-Physician Basic Information [...] He states that he saw physician in [place] couple of months ago and they told [...] and Complexity of Problems Differential Diagnosis: [] [facility] Data External documents reviewed: N/A My EKG [...] Soln-IV, IV (more content not included)... Normal [facility] Comment on above: Result Comment: Elec tronically Signed By: Sean Thomas DO\.br\Date and Time Signed: 10/21/23 20:56 EDT ED Patient Education Noteon 10-21-2023 ED Patient Education Note Normal [facility] ED Patient Summaryon ED Patient Summary [place] [id number] Patient Discharge Instructions Person Information Name: DEVON MATHEW Age: 43 Years Arrival Date: 10/21/2023 18:35:40 Discharge Diagnosis: Abscess; Elevated blood pressure reading; Elevated troponin; Hyperglycemia; Pneumonia; Sepsis Primary Care Physician: HATTIE SHANE CNP Provider Information Primary Provider: Sean Thomas DO Advanced Equipment Sales Specialist:None The exam and treatment you received in the Emergency Department were for an urgent problem and are not intended as complete care. It is important that you follow up with a doctor, nurse practitioner, or physician?s education administrative assistant for ongoing care. If your symptoms [...] opioids can be used to help relieve pbruicfi-de-byaixe pain and are often prescribed following a [...] be struggling with addiction, tell your health physician assistant primary care and ask for guidance or call [facility]S [employer] Helpline at [phone]. w Source: [place] Department of Health and Human Services/Center for Disease Control & Prevention [facility] (more content not included)... Normal [facility] Blood GasesOrdered By: Suzanna Strauss on 10-21-2023 Allens Test Not Applicable (10/21/23 7:38 PM) Normal [facility] Resp Auto SS Drawn by lab Invalid Interpretation Code [facility] Resp Auto SS FIO2 BG 21 1 Invalid Interpretation Code [facility] Resp Auto SS pCO2 Maikel 40.7 mm[Hg] Normal 38.0 - 50.0 mmHg [facility] Resp Auto SS pH (Bld) 7.401 [pH] Normal 7.320 - 7.430 [facility] Resp Auto SS Sample Site OTHER (10/21/23 7:38 PM) Normal [facility] Resp Auto SS Sample Type Venous Draw (10/21/23 7:38 PM) Normal [facility] Resp Auto SS HEMATOLOGYOrdered By: SYSTEM SYSTEM [...] 11.0 E9/L Remisol Heme Influenza A&B Agon 4 Influenzae A Ag Negative Normal Negative [facility] Comment on above: Performed By: #### 2 [id number] #### [facility] [address] [place] [address] Influenzae B Ag Negative Normal Negative [facility] Comment on above: Result Comment: Test sensitivity and specificity vary for age group, specimen type, antigen types, and prevalence of disease. Test results must be evaluated in conjunction with other clinical data available to the physician. Individuals who received nasally administered Influenza A vaccine may have positive test results up to 3 days after vaccination. Performed By: #### 2 420829 #### [facility] [address] [place] [address] Lactic Acidon 10-21-2023 Lactic Acid Lvl 1.4 mmol/L Normal 0.5-2.2 [facility] Comment on above: Performed By: #### 2 345554, 34395238, 0162618, 2209612, 22969161, 5238427692, 3108779, 49029619, 808124728 ####[facility] [address] [place] [address] MICRO OTHER TESTSOrdered By: Kingsley Zheng on 10-21-2023 Influenzae A Ag Negative (10/21/23 7:25 PM) Normal Negative [facility] Influenzae B Ag Negative 1 (10/21/23 7:25 PM) Normal Negative [facility] Comment on above: Interpretive Data: [...] NEG Ctl Pass (10/21/23 7:25 PM) Normal [facility] Rapid COV Int POS Ctl Pass (10/21/23 7:25 PM) Normal [facility] Man [facility]ero SARS-CoV+SARS-CoV-2 (COVID-19) Ag IA.rapid Ql (Resp) Not Detected 16 (10/21/23 7:25 PM) Normal Not Detected [facility] Comment on above: Interpretive Data: T he MusicIP Veritor System for Rapid Detection of SARS-CoV-2 [...] revoked sooner. Monitor Recordon 10-21-2023 Monitor Record [id number]# 1.00TIFF Normal [facility] No Panel InformationOrdered By: ANGPROCESSSERVER MICROBIOLOGY on 10-21-2023 Blood Culture Charcoal No growth at 1 da y. Final to follow at 7 days. [facility] Blood Culture Charcoal No growth at 1 da y. Final to follow at 7 days. [facility] PT & PTTon 10-21-2023 aPTT Coag (PPP) [Time] 29.4 second(s) Normal 25.1-36.5 [facility] Comment on above: Result Comment: Para meter [...] the same coagulation reagent and instrumentation as [facility]. Currently there are no coagulation studies available worldwide for children to 14 days, and no normal ranges. Heparin therapeutic range (represented by Anti-Factor Xa activity of 0.2 - 0.4 U/mL) corresponds to PTT of 56.6 - 109.0 sec. Performed By: #### 2 252790, 65699134, 1848258, 6130731, 54546854, 2980395153, 9813488, 88274172, 008941542 #### [facility] [address] [place] [address] INR Coag (PPP) [Relative time] 1.02 {INR} Invalid Interpretation Code [facility] Comment on above: Result Comment: INR results are specifically intended to assess patients stabilized on long-term Anticoagulation therapy suggested INR?s ?Less Intensive Anticoagulation? 2.0 ? 3.0 Conventional Range 3.0 ? 4.5 Performed By: #### 2 162367, 84186892, 7450342, 0241644, 50951360, 6371134515, 6749413, 70592962, 126037265 #### [facility] [address] [place] [address] PT Coag (PPP) [Time] 11.4 second(s) Normal 9.4-12.5 [facility] Comment on above: Result Comment: 15 d [...] the same coagulation reagent and instrumentation as [facility]. Currently there are no coagulation studies available worldwide for children to 14 days, and no normal ranges. Performed By: #### 2 458509, 16592286, 2030706, 4122874, 00188738, 4264963421, 4202969, 53156636, 769837725 #### [facility] [address] [place] [address] Procalcitoninon 10-21-2023 Procalcitonin .06 ng/mL Normal .00-.50 [facility] Comment on above: Result Comment: <0.5 [...] to 24 hours. Performed By: #### 2 610248, 07640836, 2135476, 2272433, 39672704, 1606210623, 3234274, 55792450, 296031317 ####[facility] [address] [place] [address] Rapid COVID Antigen ([facility])on 10-21-2023 Rapid COV Int NEG Ctl Pass Normal [facility] Comment on above: Performed By: #### 2 084518 #### [facility] [address] [place] [address] Rapid COV Int POS Ctl Pass Normal [facility] Comment on above: Performed By: #### 2 899580 #### [facility] [address] [place] [address] SARS-CoV+SARS-CoV-2 (COVID-19) Ag IA.rapid Ql (Resp) Not detected Normal Not Detected [facility] Comment on above: Result Comment: The MusicIP Veritor? System for Rapid Detection of SARS-CoV-2 is [...] or revoked sooner. Performed By: #### 2 052246 #### [facility] [address] [place] [address] Troponinon 10-21-2023 Troponin 46.80 pg/mL High 15.90-38.40 [facility] Comment on above: Result Comment: The 95% CI (Confidence Interval) PPV (Positive Predictive Value) for myocardial infarction in females is 38 pg/mL, in males 51 pg/mL. The results should be used in conjunction with clinical conditions of myocardial infarction. (Access High Sensitivity Troponin I Instructions For Use, Jesus [place], March 2018) Performed By: #### 2 457480, 76892906, 4421612, 1538879, 14441358, 4349693704, 5993798, 65263399, 805735347 ####[facility] [address] [place] [address] eGFRon 10-21-2023 eGFR 109 mL/min/1.73 m2 Normal >=59 [facility] Comment on above: Order Comment: Order added by Discern Expert. Performed By: #### 2 089734, 76209360, 4682570, 8423891, 44067418, 4690290012, 3592049, 64143545, 614359032 #### [facility] [address] [place] [address] CT HEAD WITHOUT CONTRASTon 08-15-2020 CT HEAD WITHOUT CONTRAST EXAMINATION: CT [...] with dedicated CT if clinically warranted. Normal [facility] XR TIBIA AND FIBULA RIGHTon 06-15-2021 XR [...] fracture or dislocation. Follow-up as needed. Normal [facility] Basic Metab w/rfx MGon 06-09 (cont.) Normal [facility] Comment on above: Result Comment: Aver age GFR for 40-49 years old: 99 mL/min/1.73sq m Chronic Kidney Disease: <60 mL/min/1.73sq m Kidney failure: <15 mL/min/1.73sq m eGFR calculated using average adult body mass. Additional eGFR calculator available at: http://www.BackerKit/multiple_crcl_2012.htm Performed By: #### B EMELY GARDNER DIME, CDP #### [facility] [address] [place] [address] Securities Compliance Examiner: Soraya Simpson MD Anion gap [Moles/Vol] 10 mmol/L Normal 9-17 [facility] Comment on above: Performed By: #### B EMELY GARDNER DIME, CDP #### [facility] [address] [place] [address] Securities Compliance Examiner: Soraya Simpson MD BUN/CRE Ratio 31 High 9-20 [facility] Comment on above: Performed By: #### B EMELY GARDNER DIME, CDP #### [facility] [address] [place] [address] Securities Compliance Examiner: Soraya Simpson MD Calcium [Mass/Vol] 8.8 mg/dL Normal 8.6-10.4 [facility] Comment on above: Performed By: #### B MPX, TROPI, DIME, CDP #### [facility] [address] [place], [place] [id number] Securities Compliance Examiner: Soraya Simpson MD Chloride [Moles/Vol] 102 mmol/L Normal 98-107 [facility] Comment on above: Performed By: #### B MPX, TROPI, DIME, CDP #### [facility] [address] [place] [address] Securities Compliance Examiner: Soraya Simpson MD CO2 [Moles/Vol] 24 mmol/L Normal 20-31 [facility] Comment on above: Performed By: #### B MPX, TROPI, DIME, CDP #### [facility] [address] [place], [place] [id number] Securities Compliance Examiner: Soraya Simpson MD Creatinine [Mass/Vol] 0.52 mg/dL Low 0.70-1.20 [facility] Comment on above: Performed By: #### B MPX, TROPI, DIME, CDP #### [facility] [address] [place], [place] [id number] Securities Compliance Examiner: Soraya Simpson MD GFR, Amer >60 Normal >60 [facility] Comment on above: Performed By: #### B MPX, TROPI, DIME, CDP #### [facility] [address] [place], [place] [address] Securities Compliance Examiner: Soraya Simpson MD GFR,non Amer >60 Normal >60 [facility] Comment on above: Performed By: #### B MPX, TROPI, DIME, CDP #### [facility] [address] [place], [place] [id number] Securities Compliance Examiner: Soraya Simpson MD Glucose [Mass/Vol] 139 mg/dL High 70-99 [facility] Comment on above: Performed By: #### B MPX, TROPI, DIME, CDP #### [facility] [address] [place] [address] Securities Compliance Examiner: Soraya Simpson MD Potassium [Moles/Vol] 3.9 mmol/L Normal 3.7-5.3 [facility] Comment on above: Performed By: #### B MPX, KELLY HANE, CDP #### [address] [place] [address] Securities Compliance Examiner: Soraya Simpson MD Sodium [Moles/Vol] 136 mmol/L Normal 135-144 [facility] Comment on above: Performed By: #### B MPEMELY Courtney DIME, CDP #### [address] [place] [address] Securities Compliance Examiner: Soraya Simpson MD Staging: Normal [facility] Comment on above: Result Comment: Stag e 1: Some kidney damage normal GFR Stage 2: Mild kidney damage GFR 60-89 Stage 3: Moderate kidney damage GFR 30-59 Stage 4: Severe kidney damage GFR 15-29 Stage 5: Severe kidney damage GFR <15 ESRD - chronic treatment by dialysis or transplant Performed By: #### B MPX, KELLY HANE, CDP #### [address] [place] [address] Securities Compliance Examiner: Soraya Simpson MD Urea nitrogen [Mass/Vol] 16 mg/dL Normal 6-20 [facility] Comment on above: Performed By: #### B MPX, TROPI DIME, CDP #### [facility] [address] [place] [address] [place] [address] Securities Compliance Examiner: Soraya Simpson MD Basic Metabolic Panel w/ Ref estefania to MGOrdered By: Micheal Kwok on 06-09-2021 Anion gap [Moles/Vol] 10 mmol/L 9 - 17 mmol/L [facility] [employer] Phone: Calcium [Mass/Vol] 8.8 mg/dL 8.6 - 10. 4 mg/dL [facility] Work Phone: Chloride [Moles/Vol] 102 mmol/L 98 - 10 7 mmol/L [facility] [employer] Secretary Phone: CO2 [Moles/Vol] 24 mmol/L 20 - 31 mmol/L [facility] [employer] Secretary Phone: Creatinine [Mass/Vol] 0.52 mg/dL Low 0.70 - 1.20 mg/dL [facility] Work Phone: GFR >60 >60 mL/min [facility] [employer] Work Phone: GFR Non- >60 >60 mL/min [facility] Dining Secretary Phone: Glucose [Mass/Vol] 139 mg/dL High 70 - 99 mg/dL [facility] [employer] Work Phone: Interpretation and review of laboratory results Abnormal [facility] Dining Secretary Phone: Potassium [Moles/Vol] 3.9 mmol/L 3.7 - 5.3 mmol/L [facility] [employer] Secretary Phone: Sodium [Moles/Vol] 136 mmol/L 135 - 144 mmol/L [facility] [employer] Secretary Phone: Urea nitrogen (BldV) [Mass/Vol] 16 mg/dL 6 - 20 mg/dL [facility] [employer] Secretary Phone: Urea nitrogen/Creatinine (Bld) [Mass ratio] 31 High [facility] Work Phone: [facility] Work Phone: CBC Auto DifferentialOrdered By: Micheal Kwok on 06-09-2021 Absolute Eos # 0.15 [facility] Work Phone: Absolute Immature Granulocyte 0.00 [facility] Work Phone: Absolute Lymph # 3.82 High [facility] Work Phone: Absolute [place] # 0.59 [facility] Work Phone: Basophils (Bld) [#/Vol] 0.00 10*3/uL [employer] Phone: Basophils/100 WBC (Bld) 0 % 0 - 2 % [employer] Phone: Differential Type NOT REPORTED [employer] Phone: Eosinophils/100 WBC (Bld) 1 % 1 - 4 % [employer] Phone: Hematocrit (Bld) [Volume fraction] 46.1 % 40.7 - 50.3 % [employer] Phone: Hemoglobin.gastrointest inal spec 1 Ql (Stl) 15.5 g/dL 13.0 - 17.0 g/dL [employer] Phone: Immature granulocytes/100 WBC (Bld) 0 % 0 [employer] Phone: Interpretation and review of laboratory results Abnormal [employer] Phone: Lymphocytes/100 WBC (Bld) 26 % 24 - 43 % [employer] Phone: MCH (RBC) [Entitic mass] 29.4 pg 25.2 - 33.5 pg [employer] Phone: MCHC (RBC) [Mass/Vol] 33.6 g/dL 28.4 - 34.8 g/dL [employer] Phone: MCV (RBC) [Entitic vol] 87.3 fL 82.6 - 102.9 fL [employer] Phone: Monocytes/100 WBC (Bld) 4 % 3 - 12 % [employer] Phone: Morphology Mando (Bld) [Interp] Normal [employer] Phone: NRBC Automated 0.0 0.0 per 100 WBC [employer] Phone: Platelet distribution width (Bld) [Ratio] 12.9 % 11.8 - 14.4 % [employer] Phone: Platelet Estimate NOT REPORTED [employer] Phone: Platelet mean volume (Bld) [Entitic vol] 10.2 fL 8.1 - 13.5 fL [employer] Phone: Platelets (Bld) [#/Vol] 290 10*3/uL [employer] Phone: RBC (Bld) [#/Vol] 5.28 10*6/uL 4.21 - 5.7 7 m/uL [employer] Phone: RBC (Bld) [#/Vol] NOT REPORTED [employer] Phone: Segmented neutrophils/100 WBC (Bld) 69 % High 36 - 65 % [employer] Work Phone: Segs Absolute 10.14 High [employer] Work Phone: WBC (Bld) [#/Vol] 14.7 10*3/uL High [employer] Work Phone: WBC (Bld) [#/Vol] NOT REPORTED [employer] Phone: [employer] Phone: CBC with Diffon 06-09-2021 Abs. Basophil 0.00 k/uL Normal 0.0-0.2 [facility] Comment on above: Performed By: #### B MPX, TROPIKELLYE, CDP #### [facility] [address] [place] [address] Securities Compliance Examiner: Soraya Simpson MD Abs.Imm.Granulocyte 0.00 k/uL Normal 0.00-0.30 [facility] Comment on above: Performed By: #### B MPX, TROPI DIME, CDP #### [facility] [address] [place] [address] Securities Compliance Examiner: Soraya Simpson MD Abs.Neutrophil (Seg) 10.14 k/uL High 1.50-8.10 [facility] Comment on above: Performed By: #### B MPX, TROPI DIME, CDP #### [address] [place], [place] [id number] Securities Compliance Examiner: Soraya Simpson MD Basophils/100 WBC (Bld) 0 % Normal 0-2 [facility] Comment on above: Performed By: #### B MPX, TROPI, DIME, CDP #### [address] [place] [address] Securities Compliance Examiner: Soraya Simpson MD Eosinophils (Bld) [#/Vol] 0.15 10*3/uL Normal 0.00-0.44 [facility] Comment on above: Performed By: #### B MPRoz, TROPI, DIME, CDP #### [address] [place] [address] Securities Compliance Examiner: Soraya Simpson MD Eosinophils/100 WBC (Bld) 1 % Normal 1-4 [facility] Comment on above: Performed By: #### B MPX, TROPI, DIME, CDP #### [address] [place] [address] Securities Compliance Examiner: Soraya Simpson MD Immature granulocytes/100 WBC (Bld) 0 % Normal 0 [facility] Comment on above: Performed By: #### B MPX, TROPI, DIME, CDP #### [address] [place] [address] Securities Compliance Examiner: Soraya Simpson MD Lymphocytes (Bld) [#/Vol] 3.82 10*3/uL High 1.10-3.70 [facility] Comment on above: Performed By: #### B MPX, TROPI, DIME, CDP #### [address] [place], [place] [id number] Securities Compliance Examiner: Soraya Simpson MD Lymphocytes/100 WBC (Bld) 26 % Normal 24-43 [facility] Comment on above: Performed By: #### B MPX, TROPI, DIME, CDP #### [facility] [address] [place], [place] [id number] Securities Compliance Examiner: Soraya Simpson MD Monocytes (Bld) [#/Vol] 0.59 10*3/uL Normal 0.10-1.20 [facility] Comment on above: Performed By: #### B MPX, TROPI, DIME, CDP #### [facility] [address] [place], [place] [id number] Securities Compliance Examiner: Soraya Simpson MD Monocytes/100 WBC (Bld) 4 % Normal 3-12 M [facility] Comment on above: Performed By: #### B MPX, TROPI, DIME, CDP #### [facility] [address] [place] [address] Securities Compliance Examiner: Soraya Simpson MD Morphology Mando (Bld) [Interp] Normal Normal [facility] Comment on above: Performed By: #### B MPX, TROPI, DIME, CDP #### [facility] [address] [place], [place] [id number] Securities Compliance Examiner: Soraya Simpson MD Neutrophil (Seg) 69 % High 36-65 [facility] Comment on above: Performed By: #### B MPX, TROPI, DIME, CDP #### [facility] [address] [place], [place] [phone] Securities Compliance Examiner: Soraya Simpson MD Erythrocyte distribution width (RBC) [Ratio] 12.9 % Normal 11.8-14.4 [facility] Comment on above: Performed By: #### B MPX, TROPI, DIME, CDP #### [facility] [address] [place], [place] [id number] Securities Compliance Examiner: Soraya Simpson MD Hematocrit (Bld) [Volume fraction] 46.1 % Normal 40.7-50.3 [facility] Comment on above: Performed By: #### B MPX, TROPI DIME, CDP #### [facility] [address] [place] [address] Securities Compliance Examiner: Soraya Simpson MD Hemoglobin (Bld) [Mass/Vol] 15.5 g/dL Normal 13.0-17.0 [facility] Comment on above: Performed By: #### B MPX, TROPI, DIME, CDP #### [facility] [address] [place], [place] [id number] Securities Compliance Examiner: Soraya Simpson MD MCH (RBC) [Entitic mass] 29.4 pg Normal 25.2-33.5 [facility] Comment on above: Performed By: #### B MPX, TROPI, DIME, CDP #### [address] [place], [place] [id number] Securities Compliance Examiner: Soraya Simpson MD MCHC (RBC) [Mass/Vol] 33.6 g/dL Normal 28.4-34.8 [facility] Comment on above: Performed By: #### B MPX, TROPI, DIME, CDP #### [address] [place], [place] [id number] Securities Compliance Examiner: Soraya Simpson MD MCV (RBC) [Entitic vol] 87.3 fL Normal 82.6-102.9 M [facility] Comment on above: Performed By: #### B MPX, TROPI, DIME, CDP #### [address] [place] [address] Securities Compliance Examiner: Soraya Simpson MD NRBC Automated 0.0 per 100 WBC Normal 0.0 [facility] Comment on above: Performed By: #### B MPX, TROPI, DIME, CDP #### [address] [place] [address] Securities Compliance Examiner: Soraya Simpson MD Platelet mean volume (Bld) [Entitic vol] 10.2 fL Normal 8.1-13.5 [facility] Comment on above: Performed By: #### B MPX, TROPI, DIME, CDP #### [address] [place], [id number] Securities Compliance Examiner: Soraya Simpson MD Platelets (Bld) [#/Vol] 290 10*3/uL Normal 138-453 [facility] Comment on above: Performed By: #### B MPX, TROPI, DIME, CDP #### [address] [place], [id number] Securities Compliance Examiner: Soraya Simpson MD RBC (Bld) [#/Vol] 5.28 10*6/uL Normal 4.21-5.77 [facility] Comment on above: Performed By: #### B MPX, TROPI, DIME, CDP #### [address] [place], [place] [id number] Securities Compliance Examiner: Soraya Simpson MD WBC (Bld) [#/Vol] 14.7 10*3/uL High 3.5-11.3 [facility] Comment on above: Performed By: #### B MPX, TROPI, DIME, CDP #### [address] [place], [id number] Securities Compliance Examiner: Soraya Simpson MD Auto Diff Performed NOT REPORTED Normal [facility] Comment on above: Performed By: #### B MPX, TROPI, DIME, CDP #### [address] [place], [id number] Securities Compliance Examiner: Soraya Simpson MD Platelet Comment NOT REPORTED Normal [facility] Comment on above: Performed By: #### B MPX, TROPI, DIME, CDP #### [facility] [address] [place] [address] [place] [address] Securities Compliance Examiner: Soraya Simpson MD RBC morphology finding Nom (Bld) NOT REPORTED Normal [facility] Comment on above: Performed By: #### B MPX, TROPI, DIME, CDP #### [facility] [address] [place] [address] Securities Compliance Examiner: Soraya Simpson MD WBC Morphology NOT REPORTED Normal [facility] Comment on above: Performed By: #### B MPX, TROPI, DIME, CDP #### [facility] [address] [place] [address] Securities Compliance Examiner: Soraya Simpson MD COVID-19, RapidOrdered By: Trinidad Kwok on 06-09-2021 SARS-CoV-2 (COVID-19) RNA FERMIN+probe Ql (Unsp spec) Not detected Not Detected [facility] Dining Secretary Phone: Comment on above: Rapid NAAT: The [...] management decisions. Fact sheet for Healthcare Providers: https://www.fda.gov/media/449451/download Fact sheet for Patients: https://www.fda.gov/media/924266/download Methodology: Isothermal Nucleic Acid Amplification Specimen Description .NASOPHARYNGEAL SWAB [facility] [employer] Phone: [facility] [employer] Phone: D-Dimer Teston 06-09-2021 D-Dimer Test <0.27 Normal 0.00-0.59 [facility] Comment on above: Result Comment: When [...] Performed By: #### B KENDRA, LJ HAN, CDP #### [facility] [address] [place] [address] [place] [address] Securities Compliance Examiner: Soraya Simpson MD D-Dimer, QuantitativeOrdered By: Micheal Kwok on 06-09-2021 D-Dimer, Quant <0.27 [facility] Work Phone: Comment on above: When combined [...] more prevalent in patients with distal DVT. [employer] Phone: Laboratory - Chemistry and C hemistry - challengeOrdered By: Micheal Kwok on 06-09-2021 GFR/1.73 sq M.predicted MDRD (S/P/Bld) [Vol rate/Area] [employer] Phone: Comment on above: Average GFR for 40-4 9 years old: 99 mL/min/1.73sq m Chronic Kidney Disease: <60 mL/min/1.73sq m Kidney failure: <15 mL/min/1.73sq m eGFR calculated using average adult body mass. Additional eGFR calculator available at: http://www.BackerKit/multiple_crcl_2012.htm Stage 1: Some kidney damage normal GFR Stage 2: Mild kidney damage GFR 60-89 Stage 3: Moderate kidney damage GFR 30-59 Stage 4: Severe kidney damage GFR 15-29 Stage 5: Severe kidney damage GFR <15 ESRD - chronic treatment by dialysis or transplant [id number] 06-09-2021 SARS-CoV-2 (COVID-19) RNA FERMIN+probe Ql (Unsp spec) Not detected Normal [facility] Comment on above: Result Comment: Rapid [...] management decisions. Fact sheet for Healthcare Providers: https://www.fda.gov/media/238833/download Fact sheet for Patients: https://www.fda.gov/media/733547/download Methodology: Isothermal Nucleic Acid Amplification Performed By: #### C OVRB #### [facility] [address] [place] [address] Securities Compliance Examiner: Soraya Simpson MD Troponinon 06-09-2021 Troponin, High Sens 8 ng/L Normal 0-22 [facility] Comment on above: Result Comment: High Sensitivity Troponin values cannot be compared with other Troponin methodologies. Patients with high levels of Biotin oral intake (i.e >5mg/day) may have falsely decreased Troponin levels. Samples collected within 8 hours of biotin intake may require additional information for diagnosis. Performed By: #### B MPX, TROPI, DIME, CDP #### [facility] [address] [place] [address] [place] [address] Securities Compliance Examiner: Soraya Simpson MD Troponin Interp. NOT REPORTED Normal [facility] Comment on above: Performed By: #### B MPX, TROPI, DIME, CDP #### [address] [place] [address] Securities Compliance Examiner: Soraya Simpson MD Troponin T NOT REPORTED Normal <0.03 [facility] Comment on above: Performed By: #### B MPX, TROPI, DIME, CDP #### [facility] [address] [place] [address] Securities Compliance Examiner: Soraya Simpson MD TroponinOrdered By: Micheal Kwok on 06-09-2021 Troponin Interp NOT REPORTED [facility] Work Phone: Troponin T NOT REPORTED <0.03 ng/mL [facility] Work Phone: Troponin, High Sensitivity 8 ng/L 0 - 22 ng/L [facility] [employer] Phone: Comment on above: High Sensitivity Troponin values cannot be compared with other Troponin methodologies. Patients with high levels of Biotin oral intake (i.e >5mg/day) may have falsely decreased Troponin levels. Samples collected within 8 hours of biotin intake may require additional information for diagnosis. [employer] Phone: XR CHEST PORTABLEon 06-09-20 XR CHEST [...] Sadi Olmedo MD 06/09/21 Final result Normal [facility] XR CHEST PORTABLEOrdered By: Micheal Kwok on 06-09-2021 Unremarkable single portable AP chest. [employer] Phone: EXAMINATION: ONE XRA Y VIEW OF [...] seen. Bones and soft tissues are unremarkable. [employer] Phone: Jasen, Mhpn Incoming Radiant Results From [employer] - 06/09/2021 6:01 AM EDT EXAMINATION: ONE [...] unremarkable. IMPRESSION: Unremarkable single portable AP chest. [employer] Phone: [employer] Phone: COVID-19, RapidOrdered By: Geovani Tapia on 06-07-2021 SARS-CoV-2 (COVID-19) RNA FERMIN+probe Ql (Unsp spec) Not detected Not Detected [employer] Phone: Comment on above: Rapid NAAT: The [...] management decisions. Fact sheet for Healthcare Providers: https://www.fda.gov/media/843207/download Fact sheet for Patients: https://www.fda.gov/media/161374/download Methodology: Isothermal Nucleic Acid Amplification Specimen Description .NASOPHARYNGEAL SWAB [facility] Phone: [facility] [employer] Phone: [id number] 06-07-2021 SARS-CoV-2 (COVID-19) RNA FERMIN+probe Ql (Unsp spec) Not detected Normal NOTDET [facility] Comment on above: Result Comment: Rapid [...] management decisions. Fact sheet for Healthcare Providers: https://www.fda.gov/media/442992/download Fact sheet for Patients: https://www.fda.gov/media/491309/download Methodology: Isothermal Nucleic Acid Amplification Performed By: #### C OVRB #### [facility] [address] [place] [address] Securities Compliance Examiner: Soraya Simpson MD XR CHEST PORTABLEon 06-07-20 [...] Ger Morin MD 06/07/21 Final result Normal [facility] XR CHEST PORTABLEOrdered By: Linette Tapia on 06-07-2021 No acute process. [facility] Work Phone: EXAMINATION: ONE XRA Y VIEW OF THE CHEST 06/07/2021 2:53 pm COMPARISON: 02/17/2018 HISTORY: ORDERING SYSTEM PROVIDED HISTORY: cough, chest pain TECHNOLOGIST PROVIDED HISTORY: cough, chest pain FINDINGS: The lungs are without acute focal process. There is no effusion or pneumothorax. The cardiomediastinal silhouette is without acute process. The osseous structures are without acute process. [facility] Work Phone: Jasen, Mhpn Incoming Radiant Results From [email or web address] - 06/07/2021 6:16 PM EDT EXAMINATION: ONE XRAY VIEW OF THE CHEST 06/07/2021 2:53 pm COMPARISON: 02/17/2018 HISTORY: ORDERING SYSTEM PROVIDED HISTORY: cough, chest pain TECHNOLOGIST PROVIDED HISTORY: cough, chest pain FINDINGS: The lungs are without acute focal process. There is no effusion or pneumothorax. The cardiomediastinal silhouette is without acute process. The osseous structures are without acute process. IMPRESSION: No acute process. [employer] Work Phone: [facility] [employer] Phone: CBC AUTO DIFFon 02-11-2021 BASO # 0.1 103/ul Normal 0.0-0.1 [facility] Comment on above: Performed By: #### C BC #### [facility] [address] [place], [place] [id number] Lora Waleska Basophils/100 WBC (Bld) 0.5 % Normal 0.2-2.0 [facility] Comment on above: Performed By: #### C BC #### [facility] [address] [place] [address] Lora Waleska EO # 0.1 103/ul Normal 0.0-0.7 [facility] Comment on above: Performed By: #### C BC #### [facility] [address] [place], [place] [id number] Lora Waleska Eosinophils/100 WBC (Bld) 1.0 % Normal 0.9-7.0 [facility] Comment on above: Performed By: #### C BC #### [facility] [address] [place], [place] [id number] Lora Waleska Erythrocyte distribution width (RBC) [Ratio] 13.3 % Normal 11.0-15.0 [facility] Comment on above: Performed By: #### C BC #### [facility] [address] [place], [place] [id number] Lora Waleska Hematocrit (Bld) [Volume fraction] 42.5 % Normal 42.0-54.0 [facility] Comment on above: Performed By: #### C BC #### [facility] [address] [phone] Lora Waleska Hemoglobin (Bld) [Mass/Vol] 14.5 g/dL Normal 14.0-18.0 [facility] Comment on above: Performed By: #### C BC #### [facility] [address] [id number] Lora Waleska IG # 0.05 10e3/ul Critically high 0.00-0.03 [facility] Comment on above: Performed By: #### C BC #### [facility] [address] [place] [address] Lora Waleska IG % 0.3 % Normal 0.0-0.5 [facility] Comment on above: Performed By: #### C BC #### [facility] [address] [place] [address] Lora Waleska LYMPH # 3.4 103/ul Normal 1.2-3.8 [facility] Comment on above: Performed By: #### C BC #### [facility] [address] [place] [address] Lora Waleska Lymphocytes/100 WBC (Bld) 23.1 % Normal 20.5-60.0 [facility] Comment on above: Performed By: #### C BC #### [facility] [address] [place] [address] Lora Waleska MANUAL DIFF REQ NO Normal [facility] Comment on above: Performed By: #### C BC #### [facility] [address] [place], [place] [id number] Lora Waleska MCH (RBC) [Entitic mass] 29.1 pg Normal 25.9-34.0 [facility] Comment on above: Performed By: #### C BC #### [facility] [address] [place] [address] Lora Waleska MCHC (RBC) [Mass/Vol] 34.1 g/dL Normal 29.9-35.2 [facility] Comment on above: Performed By: #### C BC #### [facility] [address] [place] [address] Lora Waleska MCV (RBC) [Entitic vol] 85.3 fL Normal 80.0-94.0 [facility] Comment on above: Performed By: #### C BC #### [facility] [address] [id number] Lora Galeano MONO # 0.9 103/ul Critically high 0.3-0.8 [facility] Comment on above: Performed By: #### C BC #### [facility] [address] [address] Lora Galeano Monocytes/100 WBC (Bld) 6.5 % Normal 1.7-12.0 [facility] Comment on above: Performed By: #### C BC #### [facility] [address] [address] Lora Galeano NEUT # 10.0 103/ul Critically high 1.4-6.5 [facility] Comment on above: Performed By: #### C BC #### [facility] [address] [place] [address] Lora Galeano Neutrophils/100 WBC (Bld) 68.6 % Normal 43.0-75.0 [facility] Comment on above: Performed By: #### C BC #### [facility] [address] [phone] Lora Galeano Platelet mean volume (Bld) [Entitic vol] 11.2 fL Normal 9.5-13.5 [facility] Comment on above: Performed By: #### C BC #### [facility] [address] [place] [address] Lora Galeano PLT 261 103/ul Normal 150-450 [facility] Comment on above: Performed By: #### C BC #### [facility] [address] [place], [place] [id number] Lora Waleska RBC 4.98 106/ul Normal 4.70-6.10 [facility] Comment on above: Performed By: #### C BC #### [facility] [address] [place], [place] [id number] Lora Waleska WBC 14.5 103/ul Critically high 4.0-11.[address] [facility] Comment on above: Performed By: #### C BC #### [facility] [address] [place], [place] [address] LSPINE WO CONon 1 CT LSPINE WO CON EXAMINATION: CT LSPINE [...] SORAYA STEWART Date: 2021-02-11 16:04 Normal [facility] PROF CHEM 8 (BAS METB)on Anion gap [Moles/Vol] 14.3 mmol/L Normal [facility] Comment on above: Performed By: #### B MP #### [facility] [address] [address] Lora Waleska Calcium [Mass/Vol] 8.8 mg/dL Normal 8.4-10.2 [facility] Comment on above: Performed By: #### B MP #### [facility] [address] [address] Lora Waleska Chloride [Moles/Vol] 104 mmol/L Normal 98-107 [facility] Comment on above: Performed By: #### B MP #### [facility] [address] [phone] Lora Waleska CO2 [Moles/Vol] 24.3 mmol/L Normal 22.0-30.[address] [facility] Comment on above: Performed By: #### B MP #### [facility] [address] [phone] Lora Waleska Creatinine [Mass/Vol] 0.79 mg/dL Normal 0.66-1.25 [facility] Comment on above: Performed By: #### B MP #### [facility] [address] [phone] Lora Waleska EGFR-AF BAHAMIAN >60 Normal >=60 [facility] Comment on above: Performed By: #### B MP #### [facility] [address] [phone] Lora Waleska EGFR-NON AF BAHAMIAN >60 Normal >=60 [facility] Comment on above: Performed By: #### B MP #### [facility] [address] [place] [address] Lora Waleska Glucose [Mass/Vol] 107 mg/dL Critically high 74-106 T [facility] Comment on above: Performed By: #### B MP #### [facility] [address] [place] [address] Lora Waleska Potassium [Moles/Vol] 3.6 mmol/L Normal 3.4-5.0 [facility] Comment on above: Performed By: #### B MP #### [facility] [address] [place] [address] Lora Waleska Sodium [Moles/Vol] 139 mmol/L Normal 137-145 [facility] Comment on above: Performed By: #### B MP #### [facility] [address] [place], [place] [id number] Lora Waleska Urea nitrogen [Mass/Vol] 9.0 mg/dL Normal 9.0-20.0 [facility] Comment on above: Performed By: #### B MP #### [facility] [address] [place], [place] [id number] Lora Waleska Urea nitrogen/Creatinine [Mass ratio] 11.4 mg/mg Normal [facility] Comment on above: Performed By: #### B MP #### [facility] [address] [place], [place] [id number] Lora Waleska Amylaseon 06-13-2019 Amylase [Catalytic activity/Vol] 58 U/L Normal 28-[address] [facility] Comment on above: Performed By: #### C BC, PT, CMPX, ALEJANDRO, LIP, MG, KAM, TRIG #### [facility] [address] [place], [place] [id number] Securities Compliance Examiner: Sadi Gambino MD #### IOCAL #### [facility] [address] [place], [place] [phone] Securities Compliance Examiner: Sha Nicholson MD Amylase [Catalytic activity/Vol] 58 U/L 28 - 100 U/L [place] CBC Auto Differentialon 11-0 Basophils (Bld) [#/Vol] 0.04 10*3/uL [place] Basophils/100 WBC (Bld) 0 % 0 - 2 % [place] Differential Type NOT REPORTED [place] Eosinophils (Bld) [#/Vol] 10*3/uL [place] Eosinophils/100 WBC (Bld) 0 % Low 1 - 4 % [place] Erythrocyte distribution width (RBC) [Ratio] 12.2 % 11.8 - 14.4 % [place] Hematocrit (Bld) [Volume fraction] 40.6 % Low 40.7 - 50.3 % [place] Hemoglobin (Bld) [Mass/Vol] 14.7 g/dL 13 - 17 g/dL [place] Immature granulocytes (Bld) [#/Vol] 0.10 10*3/uL [place] Immature granulocytes (Bld) [#/Vol] 1 % High 0 [place] Interpretation and review of laboratory results Abnormal [place] Lymphocytes (Bld) [#/Vol] 2.50 10*3/uL [place] Lymphocytes/100 WBC (Bld) 16 % Low 24 - 43 % [place] MCH (RBC) [Entitic mass] 30.9 pg 25.2 - 33.5 pg [place] MCHC (RBC) [Mass/Vol] 36.2 g/dL High 28.4 - 34.8 g/dL [place] MCV (RBC) [Entitic vol] 85.5 fL 82.6 - 102.9 fL [place] Monocytes (Bld) [#/Vol] 1.08 10*3/uL [place] Monocytes/100 WBC (Bld) 7 % 3 - 12 % [place] Platelet mean volume (Bld) [Entitic vol] 10.7 fL 8.1 - 13.5 fL [place] Platelets (Bld) [#/Vol] 299 10*3/uL [place] Platelets (Bld) [#/Vol] NOT REPORTED [place] RBC (Bld) [#/Vol] 4.75 10*6/uL 4.21 - 5.7 7 m/uL [place] RBC morphology finding Nom (Bld) NOT REPORTED [place] Segmented neutrophils/100 WBC (Bld) 77 % High 36 - 65 % [place] Segs Absolute 12.16 High [place] WBC (Bld) [#/Vol] 15.9 10*3/uL [place] WBC (Bld) [#/Vol] 0.0 10*3/uL 0.0 per 10 0 WBC [place] WBC Morphology NOT REPORTED [place] CBC with Diffon 06-13-2019 Abs. Basophil 0.04 k/uL Normal 0.00-0.[address] [facility] Comment on above: Performed By: #### C BC, PT, CMPX, ALEJANDRO, LIP, MG, KAM, TRIG #### [facility] [address] [place] [address] Securities Compliance Examiner: Sadi Gambino MD #### IOCAL #### [facility] [address] [place] [address] Securities Compliance Examiner: Sha Nicholson MD Abs.Imm.Granulocyte 0.10 k/uL Normal 0.00-0.[address] [facility] Comment on above: Performed By: #### C BC, PT, CMPX, ALEJANDRO, LIP, MG, KAM, TRIG #### [facility] [address] [place] [address] Securities Compliance Examiner: Sadi Gambino MD #### IOCAL #### [address] [address] Securities Compliance Examiner: Sha Nicholson MD Abs.Neutrophil (Seg) 12.16 k/uL High 1.50-8.10 [facility] Comment on above: Performed By: #### C BC, PT, CMPX, ALEJANDRO, LIP, MG, KAM, TRIG #### [facility] [address] [place] [address] Securities Compliance Examiner: Sadi Gambino MD #### IOCAL #### [address] [address] Securities Compliance Examiner: Sha Nicholson MD Basophils/100 WBC (Bld) 0 % Normal 0-2 [facility] Comment on above: Performed By: #### C BC, PT, CMPX, ALEJANDRO, LIP, MG, KAM, TRIG #### [facility] [address] [place] [address] Securities Compliance Examiner: Sadi Gambino MD #### IOCAL #### [address] [address] Securities Compliance Examiner: Sha Nicholson MD Eosinophils (Bld) [#/Vol] 10*3/uL Normal 0.00-0.[address] [facility] Comment on above: Performed By: #### C BC, PT, CMPX, ALEJANDRO, LIP, MG, KAM, TRIG #### [facility] [address] [place] [address] Securities Compliance Examiner: Sadi Gambino MD #### IOCAL #### [address] [address] Securities Compliance Examiner: Sha Nicholson MD Eosinophils/100 WBC (Bld) 0 % Low 1-[address] [facility] Comment on above: Performed By: #### C BC, PT, CMPX, ALEJANDRO, LIP, MG, KAM, TRIG #### [facility] [place] [address] Securities Compliance Examiner: Sadi Gambino MD #### IOCAL #### [address] [address] Securities Compliance Examiner: Sha Nicholson MD Erythrocyte distribution width (RBC) [Ratio] 12.2 % Normal 11.8-14.[address] [facility] Comment on above: Performed By: #### C BC, PT, CMPX, ALEJANDRO, LIP, MG, KAM, TRIG #### [facility] [address] [place] [address] Securities Compliance Examiner: Sadi Gambino MD #### IOCAL #### [address] [address] Securities Compliance Examiner: Sha Nicholson MD Hematocrit (Bld) [Volume fraction] 40.6 % Low 40.7-50.[address] [facility] Comment on above: Performed By: #### C BC, PT, CMPX, ALEJANDRO, LIP, MG, KAM, TRIG #### [facility] [address] [place] [address] Securities Compliance Examiner: Sadi Gambino MD #### IOCAL #### [address] [address] Securities Compliance Examiner: Sha Nicholson MD Hemoglobin (Bld) [Mass/Vol] 14.7 g/dL Normal 13.0-17.[address] [facility] Comment on above: Performed By: #### C BC, PT, CMPX, ALEJANDRO, LIP, MG, KAM, TRIG #### [facility] [place] [address] Securities Compliance Examiner: Sadi Gambino MD #### IOCAL #### [address] [address] Securities Compliance Examiner: Sha Nicohlson MD Immature granulocytes (Bld) [#/Vol] 1 % High [address] [facility] Comment on above: Performed By: #### C BC, PT, CMPX, ALEJANDRO, LIP, MG, KAM, TRIG #### [facility] [address] [place] [address] Securities Compliance Examiner: Sadi Gambino MD #### IOCAL #### [address] [address] Securities Compliance Examiner: Sha Nicholson MD Lymphocytes (Bld) [#/Vol] 2.50 10*3/uL Normal 1.10-3.[address] [facility] Comment on above: Performed By: #### C BC, PT, CMPX, ALEJANDRO, LIP, MG, KAM, TRIG #### [facility] [address] [place] [address] Securities Compliance Examiner: Sadi Gambino MD #### IOCAL #### [address] [address] Securities Compliance Examiner: Sha Nicholson MD Lymphocytes/100 WBC (Bld) 16 % Low 24-[address] [facility] Comment on above: Performed By: #### C BC, PT, CMPX, ALEJANDRO, LIP, MG, KAM, TRIG #### [facility] [address] [place] [address] Securities Compliance Examiner: Sadi Gambino MD #### IOCAL #### [address] [address] Securities Compliance Examiner: Sha Nicholson MD MCH (RBC) [Entitic mass] 30.9 pg Normal 25.2-33.[address] [facility] Comment on above: Performed By: #### C BC, PT, CMPX, ALEJANDRO, LIP, MG, KAM, TRIG #### [facility] [address] [place] [address] Securities Compliance Examiner: Sadi Gambino MD #### IOCAL #### [address] [address] Securities Compliance Examiner: Sha Nicholson MD MCHC (RBC) [Mass/Vol] 36.2 g/dL High 28.4-34.8 [facility] Comment on above: Performed By: #### C BC, PT, CMPX, ALEJANDRO, LIP, MG, KAM, TRIG #### [facility] [address] [place] [address] Securities Compliance Examiner: Sadi Gabmino MD #### IOCAL #### [place] [address] Securities Compliance Examiner: Sha Nicholson MD MCV (RBC) [Entitic vol] 85.5 fL Normal 82.6-102.9 [facility] Comment on above: Performed By: #### C BC, PT, CMPX, ALEJANDRO, LIP, MG, KAM, TRIG #### [facility] [address] [place] [address] Securities Compliance Examiner: Sadi Gambino MD #### IOCAL #### [place] [address] Securities Compliance Examiner: Sha Nicholson MD Monocytes (Bld) [#/Vol] 1.08 10*3/uL Normal 0.10-1.[address] [facility] Comment on above: Performed By: #### C BC, PT, CMPX, ALEJANDRO, LIP, MG, KAM, TRIG #### [facility] [address] [place] [address] Securities Compliance Examiner: Sadi Gambino MD #### IOCAL #### [address] [address] Securities Compliance Examiner: Sha Nicholson MD Monocytes/100 WBC (Bld) 7 % Normal 3-12 [facility] Comment on above: Performed By: #### C BC, PT, CMPX, ALEJANDRO, LIP, MG, KAM, TRIG #### [facility] [address] [place] [address] Securities Compliance Examiner: Sadi Gambino MD #### IOCAL #### [address] [address] Securities Compliance Examiner: Sha Nicholson MD Neutrophil (Seg) 77 % High 36-[address] [facility] Comment on above: Performed By: #### C BC, PT, CMPX, ALEJANDRO, LIP, MG, KAM, TRIG #### [facility] [address] [place] [address]63 Securities Compliance Examiner: Sadi Gambino MD #### IOCAL #### [address] [address] Securities Compliance Examiner: Sha Nicholson MD NRBC Automated 0.0 per [address] WBC Normal 0.[address] [facility] Comment on above: Performed By: #### C BC, PT, CMPX, ALEJANDRO, LIP, MG, KAM, TRIG #### [facility] [place] [address] Securities Compliance Examiner: Sadi Gambino MD #### IOCAL #### [address] [address] Securities Compliance Examiner: Sha Nicholson MD Platelet mean volume (Bld) [Entitic vol] 10.7 fL Normal 8.1-13.[address] [facility] Comment on above: Performed By: #### C BC, PT, CMPX, ALEJANDRO, LIP, MG, KAM, TRIG #### [facility] [address] [place] [address] Securities Compliance Examiner: Sadi Gambino MD #### IOCAL #### [address] [address] Securities Compliance Examiner: Sha Nicholson MD Platelets (Bld) [#/Vol] 299 10*3/uL Normal 138-[address] [facility] Comment on above: Performed By: #### C BC, PT, CMPX, ALEJANDRO, LIP, MG, KAM, TRIG #### [facility] [address] [place] [address] Securities Compliance Examiner: Sadi Gambino MD #### IOCAL #### [address] [address] Securities Compliance Examiner: Sha Nicholson MD RBC (Bld) [#/Vol] 4.75 10*6/uL Normal 4.21-5.[address] [facility] Comment on above: Performed By: #### C BC, PT, CMPX, ALEJANDRO, LIP, MG, KAM, TRIG #### [facility] [address] [place] [address] Securities Compliance Examiner: Sadi Gambino MD #### IOCAL #### [address] [address] Securities Compliance Examiner: Sha Nicholson MD WBC (Bld) [#/Vol] 15.9 10*3/uL High 3.5-11.[address] [facility] Comment on above: Performed By: #### C BC, PT, CMPX, ALEJANDRO, LIP, MG, KAM, TRIG #### [facility] [address] [place] [address] Securities Compliance Examiner: Sadi Gambino MD #### IOCAL #### [address] [address] Securities Compliance Examiner: Sha Nicholson MD Auto Diff Performed NOT REPORTED Normal [facility] Comment on above: Performed By: #### C BC, PT, CMPX, ALEJANDRO, LIP, MG, KAM, TRIG #### [facility] [address] [place] [address] Securities Compliance Examiner: Sadi Gambino MD #### IOCAL #### [address] [address] Securities Compliance Examiner: Sha Nicholson MD Platelets (Bld) [#/Vol] NOT REPORTED Normal [facility] Comment on above: Performed By: #### C BC, PT, CMPX, ALEJANDRO, LIP, MG, KAM, TRIG #### [facility] [address] [place] [address] Securities Compliance Examiner: Sadi Gambino MD #### IOCAL #### [address] [address] Securities Compliance Examiner: Sha Nicholson MD RBC morphology finding Nom (Bld) NOT REPORTED Normal [facility] Comment on above: Performed By: #### C BC, PT, CMPX, ALEJANDRO, LIP, MG, KAM, TRIG #### [facility] [address] [place] [address] Securities Compliance Examiner: Sadi Gambino MD #### IOCAL #### [address] [address] Securities Compliance Examiner: Sha Nicholson MD WBC Morphology NOT REPORTED Normal [facility] Comment on above: Performed By: #### C BC, PT, CMPX, ALEJANDRO, LIP, MG, KAM, TRIG #### [facility] [address] [place] [address] Securities Compliance Examiner: Sadi Gambino MD #### IOCAL #### [address] [address] Securities Compliance Examiner: Sha Nicholson MD Comp Metab w/Bili Pron 06-13 (cont.) Normal [facility] Comment on above: Result Comment: Aver age GFR for 30-39 years old: 107 mL/min/1.73sq m Chronic Kidney Disease: <60 mL/min/1.73sq m Kidney failure: <15 mL/min/1.73sq m eGFR calculated using average adult body mass. Additional eGFR calculator available at: http://www.BackerKit/multiple_crcl_2011.htm Performed By: #### C BC, PT, CMPX, ALEJANDRO, LIP, MG, KAM, TRIG #### [facility] [address] [place] [address] Securities Compliance Examiner: Sadi Gambino MD #### IOCAL #### [address] [address] Securities Compliance Examiner: Sha Nicholson MD Albumin [Mass/Vol] 4.3 g/dL Normal 3.5-5.[address] [facility] Comment on above: Performed By: #### C BC, PT, CMPX, ALEJANRDO, LIP, MG, KAM, TRIG #### [facility] [address] [place] [address] Securities Compliance Examiner: Sadi Gambino MD #### IOCAL #### [address] [address] Securities Compliance Examiner: Sha Nicholson MD Alkaline Phos 91 U/L Normal 40-[address] [facility] Comment on above: Performed By: #### C BC, PT, CMPX, ALEJANDRO, LIP, MG, KAM, TRIG #### [facility] [place] [address] Securities Compliance Examiner: Sadi Gambino MD #### IOCAL #### [address] [address] Securities Compliance Examiner: Sha Nicholson MD ALT [Catalytic activity/Vol] 187 U/L High 5-[address] [facility] Comment on above: Performed By: #### C BC, PT, CMPX, ALEJANDRO, LIP, MG, KAM, TRIG #### [facility] [address] [place] [address] Securities Compliance Examiner: Sadi Gambino MD #### IOCAL #### [address] [address] Securities Compliance Examiner: Sha Nicholson MD Anion gap [Moles/Vol] 12 mmol/L Normal 9-17 [facility] Comment on above: Performed By: #### C BC, PT, CMPX, ALEJANDRO, LIP, MG, KAM, TRIG #### [facility] [address] [place] [address] Securities Compliance Examiner: Sadi Gambino MD #### IOCAL #### [address] [address] Securities Compliance Examiner: Sha Nicholson MD AST [Catalytic activity/Vol] 91 U/L High <[address] [facility] Comment on above: Performed By: #### C BC, PT, CMPX, ALEJANDRO, LIP, MG, KAM, TRIG #### [facility] [address] [place] [address] Securities Compliance Examiner: Sadi Gambino MD #### IOCAL #### [address] [address] Securities Compliance Examiner: Sha Nicholson MD Bilirubin Ql (U) 0.74 mg/dL Normal 0.3-1.[address] [facility] Comment on above: Performed By: #### C BC, PT, CMPX, ALEJANDRO, LIP, MG, KAM, TRIG #### [facility] [address] [place] [address] Securities Compliance Examiner: Sadi Gambino MD #### IOCAL #### [address] [address] Securities Compliance Examiner: Sah Nicholson MD Bilirubin, Indirect 0.46 mg/dL Normal 0.00-1.[address] [facility] Comment on above: Performed By: #### C BC, PT, CMPX, ALEJANDRO, LIP, MG, KAM, TRIG #### [facility] [address] [place] [address] Securities Compliance Examiner: Sadi Gambino MD #### IOCAL #### [address] [address] Securities Compliance Examiner: Sha Nicholson MD Bilirubin.direct [Mass/Vol] 0.28 mg/dL Normal <0.[address] [facility] Comment on above: Performed By: #### C BC, PT, CMPX, ALEJANDRO, LIP, MG, KAM, TRIG #### [facility] [address] [place] [address] Securities Compliance Examiner: Sadi Gambino MD #### IOCAL #### [address] [address] Securities Compliance Examiner: Sha Nicholson MD Calcium [Mass/Vol] 9.3 mg/dL Normal 8.6-10.[address] [facility] Comment on above: Performed By: #### C BC, PT, CMPX, ALEJANDRO, LIP, MG, KAM, TRIG #### [facility] [address] [place] [address] Securities Compliance Examiner: Sadi Gambino MD #### IOCAL #### [address] [address] Securities Compliance Examiner: Sha Nicholson MD Chloride [Moles/Vol] 100 mmol/L Normal 98-107 [facility] Comment on above: Performed By: #### C BC, PT, CMPX, ALEJANDRO, LIP, MG, KAM, TRIG #### [facility] [place] [address] Securities Compliance Examiner: Sadi Gambino MD #### IOCAL #### [address] [address] Securities Compliance Examiner: Sha Nicholson MD CO2 [Moles/Vol] 26 mmol/L Normal 20-[address] [facility] Comment on above: Performed By: #### C BC, PT, CMPX, ALEJANDRO, LIP, MG, KAM, TRIG #### [facility] [address] [place] [address] Securities Compliance Examiner: Sadi Gambino MD #### IOCAL #### [address] [address] Securities Compliance Examiner: Sha Nicholson MD Creatinine [Mass/Vol] 0.56 mg/dL Low 0.70-1.20 [facility] Comment on above: Performed By: #### C BC, PT, CMPX, ALEJANDRO, LIP, MG, KAM, TRIG #### [facility] [address] [place] [address] Securities Compliance Examiner: Sadi Gambino MD #### IOCAL #### [address] [address] Securities Compliance Examiner: Sha Nicholson MD GFR, Amer >60 Normal >[address] [facility] Comment on above: Performed By: #### C BC, PT, CMPX, ALEJANDRO, LIP, MG, KAM, TRIG #### [facility] [address] [place] [address] Securities Compliance Examiner: Sadi Gambino MD #### IOCAL #### [address] [address] Securities Compliance Examiner: Sha Nicholson MD GFR,non Amer >60 Normal >60 [facility] Comment on above: Performed By: #### C BC, PT, CMPX, ALEJANDRO, LIP, MG, KAM, TRIG #### [facility] [address] [place] [address] Securities Compliance Examiner: Sadi Gambino MD #### IOCAL #### [address] [address] Securities Compliance Examiner: Sha Nicholson MD Glucose [Mass/Vol] 119 mg/dL High 70-[address] [facility] Comment on above: Performed By: #### C BC, PT, CMPX, ALEJANDRO, LIP, MG, KAM, TRIG #### [facility] [address] [place] [address] Securities Compliance Examiner: Sadi Gambino MD #### IOCAL #### [address] [address] Securities Compliance Examiner: Sha Nicholson MD Potassium [Moles/Vol] 3.9 mmol/L Normal 3.7-5.3 [facility] Comment on above: Performed By: #### C BC, PT, CMPX, ALEJANDRO, LIP, MG, KAM, TRIG #### [facility] [address] [place] [address] Securities Compliance Examiner: Sadi Gambino MD #### IOCAL #### [address] [address] Securities Compliance Examiner: Sha Nicholson MD Protein [Mass/Vol] 7.1 g/dL Normal 6.4-8.[address] [facility] Comment on above: Performed By: #### C BC, PT, CMPX, ALEJANDRO, LIP, MG, KAM, TRIG #### [facility] [address] [place] [address] Securities Compliance Examiner: Sadi Gambino MD #### IOCAL #### [address] [address] Securities Compliance Examiner: Sha Nicholson MD Sodium [Moles/Vol] 138 mmol/L Normal 135-[address] [facility] Comment on above: Performed By: #### C BC, PT, CMPX, ALEJANDRO, LIP, MG, KAM, TRIG #### [facility] [address] [place] [address] Securities Compliance Examiner: Sadi Gambino MD #### IOCAL #### [address] [address] Securities Compliance Examiner: Sha Nicholson MD Urea nitrogen [Mass/Vol] 8 mg/dL Normal 6-[address] [facility] Comment on above: Performed By: #### C BC, PT, CMPX, ALEJANDRO, LIP, MG, KAM, TRIG #### [facility] [address] [place] [address] Securities Compliance Examiner: Sadi Gambino MD #### IOCAL #### [address] [address] Securities Compliance Examiner: Sha Nicholson MD Albumin/Globulin [Mass ratio] NOT REPORTED Normal 1.0-2.[address] [facility] Comment on above: Performed By: #### C BC, PT, CMPX, ALEJANDRO, LIP, MG, KAM, TRIG #### [facility] [address] [place] [address] Securities Compliance Examiner: Sadi Gambino MD #### IOCAL #### [address] [phone] Securities Compliance Examiner: Sha Nicholson MD Staging: NOT REPORTED Normal [facility] Comment on above: Performed By: #### C BC, PT, CMPX, ALEJANDRO, LIP, MG, KAM, TRIG #### [facility] [address] [place], [place] [phone] Securities Compliance Examiner: Sadi Gambino MD #### IOCAL #### [facility] [address] [place], [place] [phone] Securities Compliance Examiner: Sha Nicholson MD Comp Metabolic w Bili Profil med 06-13-2019 Albumin [Mass/Vol] 4.3 g/dL 3.5 - 5.2 g/dL [place] Albumin/Globulin [Mass ratio] NOT REPORTED [place] ALP [Catalytic activity/Vol] 91 U/L 40 - 129 U/L [place] ALT [Catalytic activity/Vol] 187 U/L High 5 - 41 U/L [place] Anion gap [Moles/Vol] 12 mmol/L 9 - 17 mmol/L [place] AST [Catalytic activity/Vol] 91 U/L High <40 [place] Bilirubin Ql (U) 0.74 mg/dL 0.3 - 1.2 mg/dL [place] Bilirubin, Indirect 0.46 mg/dL 0 - 1 mg/dL [place] Bilirubin.direct [Mass/Vol] 0.28 mg/dL <0.31 [place] Calcium [Mass/Vol] 9.3 mg/dL 8.6 - 10. 4 mg/dL [place] Chloride [Moles/Vol] 100 mmol/L 98 - 10 7 mmol/L [place] CO2 [Moles/Vol] 26 mmol/L 20 - 31 mmol/L [place] Creatinine [Mass/Vol] 0.56 mg/dL Low 0.7 - 1.2 mg/dL [place] GFR >60 >60 mL/min [place] GFR Non- >60 >60 mL/min [place] GFR/1.73 sq M predicted among non-blacks MDRD (S/P/Bld) [Vol rate/Area] NOT REPORTED [place] GFR/1.73 sq M predicted among non-blacks MDRD (S/P/Bld) [Vol rate/Area] [place] Comment on above: Average GFR for 30-3 9 years old: 107 mL/min/1.73sq m Chronic Kidney Disease: <60 mL/min/1.73sq m Kidney failure: <15 mL/min/1.73sq m eGFR calculated using average adult body mass. Additional eGFR calculator available at: http://www.BackerKit/AboutUs.org_crcl_2011.htm Glucose [Mass/Vol] 119 mg/dL High 70 - 99 mg/dL [place] Interpretation and review of laboratory results Abnormal [place] Potassium [Moles/Vol] 3.9 mmol/L 3.7 - 5.3 mmol/L [place] Protein [Mass/Vol] 7.1 g/dL 6.4 - 8.3 g/dL [place] Sodium [Moles/Vol] 138 mmol/L 135 - 144 mmol/L [place] Urea nitrogen [Mass/Vol] 8 mg/dL 6 - 20 mg/dL [place] Lipaseon 06-13-2019 Lipase [Catalytic activity/Vol] 59 U/L Normal 13-[address] [facility] Comment on above: Performed By: #### C BC, PT, CMPX, ALEJANDRO, LIP, MG, KAM, TRIG #### [facility] [address] [place] [address] Securities Compliance Examiner: Sadi Gambion MD #### IOCAL #### [facility] [address] [place], [place] [phone] Securities Compliance Examiner: Sha Nicholson MD Lipase [Catalytic activity/Vol] 59 U/L 13 - 60 U/L [place] Magnesiumon 06-13-2019 Magnesium [Mass/Vol] 1.9 mg/dL Normal 1.6-2.6 [facility] Comment on above: Performed By: #### C BC, PT, CMPX, ALEJANDRO, LIP, MG, KAM, TRIG #### [facility] [address] [place], [place] [phone] Securities Compliance Examiner: Sadi Gambino MD #### IOCAL #### [facility] [address] [place], [place] [phone] Securities Compliance Examiner: Sha Nicholson MD Magnesium [Mass/Vol] 1.9 mg/dL 1.6 - 2 .6 mg/dL [place] Basic Metabolic Panelon 11-0 Anion gap [Moles/Vol] 11 mmol/L 9 - 17 mmol/L [place] Bun/Cre Ratio 20 [place] Calcium [Mass/Vol] 9.0 mg/dL 8.6 - 10. 4 mg/dL [place] Chloride [Moles/Vol] 101 mmol/L 98 - 10 7 mmol/L [place] CO2 [Moles/Vol] 24 mmol/L 20 - 31 mmol/L [place] Creatinine [Mass/Vol] 0.44 mg/dL Low 0.7 - 1.2 mg/dL [place] GFR >60 >60 mL/min [place] GFR Non- >60 >60 mL/min [place] GFR/1.73 sq M predicted among non-blacks MDRD (S/P/Bld) [Vol rate/Area] NOT REPORTED [place] GFR/1.73 sq M predicted among non-blacks MDRD (S/P/Bld) [Vol rate/Area] [place] Comment on above: Average GFR for 30-3 9 years old: 107 mL/min/1.73sq m Chronic Kidney Disease: <60 mL/min/1.73sq m Kidney failure: <15 mL/min/1.73sq m eGFR calculated using average adult body mass. Additional eGFR calculator available at: http://www.globalrp.com/multiple_crcl_2012.htm Glucose [Mass/Vol] 164 mg/dL High 70 - 99 mg/dL [place] Interpretation and review of laboratory results Abnormal [place] Potassium [Moles/Vol] 4.1 mmol/L 3.7 - 5.3 mmol/L [place] Sodium [Moles/Vol] 136 mmol/L 135 - 144 mmol/L [place] Urea nitrogen [Mass/Vol] 9 mg/dL 6 - 20 mg/dL [place] Basic Metabolic Profon 06-12 (cont.) Normal [facility] Comment on above: Result Comment: Aver age GFR for 30-39 years old: 107 mL/min/1.73sq m Chronic Kidney Disease: <60 mL/min/1.73sq m Kidney failure: <15 mL/min/1.73sq m eGFR calculated using average adult body mass. Additional eGFR calculator available at: http://www.BackerKit/multiple_crcl_2012.htm Performed By: #### C BC, PT, CMPX, ALEJANDRO, LIP, MG, KAM, TRIG #### [facility] [address] [place], [place] [phone] Securities Compliance Examiner: Sadi Gambino MD #### IOCAL #### [facility] [address] [place], [place] [phone] Securities Compliance Examiner: Sha Nicholson MD Anion gap [Moles/Vol] 11 mmol/L Normal 9-17 [facility] Comment on above: Performed By: #### C BC, PT, CMPX, ALEJANDRO, LIP, MG, KAM, TRIG #### [facility] [address] [place], [place] [phone] Securities Compliance Examiner: Sadi Gambino MD #### IOCAL #### [facility] [address] [place], [place] [phone] Securities Compliance Examiner: Sha Nicholson MD BUN/CRE Ratio 20 Normal 9-[address] [facility] Comment on above: Performed By: #### C BC, PT, CMPX, ALEJANDRO, LIP, MG, KAM, TRIG #### [facility] [address] [place] [address] Securities Compliance Examiner: Sadi Gambino MD #### IOCAL #### [address] [address] Securities Compliance Examiner: Sha Nicholson MD Calcium [Mass/Vol] 9.0 mg/dL Normal 8.6-10.[address] [facility] Comment on above: Performed By: #### C BC, PT, CMPX, ALEJANDRO, LIP, MG, KAM, TRIG #### [facility] [address] [place] [address] Securities Compliance Examiner: Sadi Gambino MD #### IOCAL #### [address] [address] Securities Compliance Examiner: Sha Nicholson MD Chloride [Moles/Vol] 101 mmol/L Normal 98-107 [facility] Comment on above: Performed By: #### C BC, PT, CMPX, ALEJANDRO, LIP, MG, KAM, TRIG #### [facility] [address] [place] [address] Securities Compliance Examiner: Sadi Gambino MD #### IOCAL #### [address] [address] Securities Compliance Examiner: Sha Nicholson MD CO2 [Moles/Vol] 24 mmol/L Normal 20-[address] [facility] Comment on above: Performed By: #### C BC, PT, CMPX, ALEJANDRO, LIP, MG, KAM, TRIG #### [facility] [address] [place] [address] Securities Compliance Examiner: Sadi Gambino MD #### IOCAL #### [address] [address] Securities Compliance Examiner: Sha Nicholson MD Creatinine [Mass/Vol] 0.44 mg/dL Low 0.70-1.20 [facility] Comment on above: Performed By: #### C BC, PT, CMPX, ALEJANDRO, LIP, MG, KAM, TRIG #### [facility] [address] [place] [address] Securities Compliance Examiner: Sadi Gambino MD #### IOCAL #### [address] [address] Securities Compliance Examiner: Sha Nicholson MD GFR, Amer >60 Normal >[address] [facility] Comment on above: Performed By: #### C BC, PT, CMPX, ALEJANDRO, LIP, MG, KAM, TRIG #### [facility] [address] [place] [address] Securities Compliance Examiner: Sadi Gambino MD #### IOCAL #### [address] [address] Securities Compliance Examiner: Sha Nicholson MD GFR,non Amer >60 Normal >60 [facility] Comment on above: Performed By: #### C BC, PT, CMPX, ALEJANDRO, LIP, MG, KAM, TRIG #### [facility] [address] [place] [address] Securities Compliance Examiner: Sadi Gambino MD #### IOCAL #### [address] [address] Securities Compliance Examiner: Sha Nicholson MD Glucose [Mass/Vol] 164 mg/dL High 70-[address] [facility] Comment on above: Performed By: #### C BC, PT, CMPX, ALEJANDRO, LIP, MG, KAM, TRIG #### [facility] [address] [place] [address], [place] [address] Securities Compliance Examiner: Sadi Gambino MD #### IOCAL #### [address] [address] Securities Compliance Examiner: Sha Nicholson MD Potassium [Moles/Vol] 4.1 mmol/L Normal 3.7-5.3 [facility] Comment on above: Performed By: #### C BC, PT, CMPX, ALEJANDRO, LIP, MG, KAM, TRIG #### [facility] [address] [place] [address] Securities Compliance Examiner: Sadi Gambino MD #### IOCAL #### [address] [address] Securities Compliance Examiner: Sha Nicholson MD Sodium [Moles/Vol] 136 mmol/L Normal 135-[address] [facility] Comment on above: Performed By: #### C BC, PT, CMPX, ALEJANDRO, LIP, MG, KAM, TRIG #### [facility] [address] [place] [address] Securities Compliance Examiner: Sadi Gambino MD #### IOCAL #### [address] [address] Securities Compliance Examiner: Sha Nicholson MD Urea nitrogen [Mass/Vol] 9 mg/dL Normal 6-[address] [facility] Comment on above: Performed By: #### C BC, PT, CMPX, ALEJANDRO, LIP, MG, KAM, TRIG #### [facility] [address] [place] [address] Securities Compliance Examiner: Sadi Gambino MD #### IOCAL #### [address] [address] Securities Compliance Examiner: Sha Nicholson MD Staging: NOT REPORTED Normal [facility] Comment on above: Performed By: #### C BC, PT, CMPX, ALEJANDRO, LIP, MG, KAM, TRIG #### [facility] [address] [place] [address] Securities Compliance Examiner: Sadi Gambino MD #### IOCAL #### [facility] [address] [place], [place] [id number] Securities Compliance Examiner: Sha Nicholson MD CBC Auto Differentialon 11-0 Basophils (Bld) [#/Vol] 10*3/uL [place] Basophils/100 WBC (Bld) 0 % 0 - 2 % [place] Differential Type NOT REPORTED [place] Eosinophils (Bld) [#/Vol] 10*3/uL [place] Eosinophils/100 WBC (Bld) 0 % Low 1 - 4 % [place] Erythrocyte distribution width (RBC) [Ratio] 11.9 % 11.8 - 14.4 % [place] Hematocrit (Bld) [Volume fraction] 36.8 % Low 40.7 - 50.3 % [place] Hemoglobin (Bld) [Mass/Vol] 13.2 g/dL 13 - 17 g/dL [place] Immature granulocytes (Bld) [#/Vol] 0 % 0 [place] Immature granulocytes (Bld) [#/Vol] 0.04 10*3/uL [place] Interpretation and review of laboratory results Abnormal [place] Lymphocytes (Bld) [#/Vol] 1.44 10*3/uL [place] Lymphocytes/100 WBC (Bld) 14 % Low 24 - 43 % [place] MCH (RBC) [Entitic mass] 30.2 pg 25.2 - 33.5 pg [place] MCHC (RBC) [Mass/Vol] 35.9 g/dL High 28.4 - 34.8 g/dL [place] MCV (RBC) [Entitic vol] 84.2 fL 82.6 - 102.9 fL [place] Monocytes (Bld) [#/Vol] 0.52 10*3/uL [place] Monocytes/100 WBC (Bld) 5 % 3 - 12 % [place] Platelet mean volume (Bld) [Entitic vol] 10.9 fL 8.1 - 13.5 fL [place] Platelets (Bld) [#/Vol] NOT REPORTED [place] Platelets (Bld) [#/Vol] 256 10*3/uL [place] RBC (Bld) [#/Vol] 4.37 10*6/uL 4.21 - 5.7 7 m/uL [place] RBC morphology finding Nom (Bld) NOT REPORTED [place] Segmented neutrophils/100 WBC (Bld) 81 % High 36 - 65 % [place] Segs Absolute 8.50 High [place] WBC (Bld) [#/Vol] 10.5 10*3/uL [place] WBC (Bld) [#/Vol] 0.0 10*3/uL 0.0 per 10 0 WBC [place] WBC Morphology NOT REPORTED [place] CBC with Diffon 06-12-2019 Abs. Basophil <0.03 Normal 0.00-0.[address] [facility] Comment on above: Performed By: #### C BC, PT, CMPX, ALEJANDRO, LIP, MG, KAM, TRIG #### [facility] [address] [place] [address] Securities Compliance Examiner: Sadi Gambino MD #### IOCAL #### [facility] [address] [place] [address] Securities Compliance Examiner: Sha Nicholson MD Abs.Imm.Granulocyte 0.04 k/uL Normal 0.00-0.[address] [facility] Comment on above: Performed By: #### C BC, PT, CMPX, ALEJANDRO, LIP, MG, KAM, TRIG #### [facility] [address] [place] [address] Securities Compliance Examiner: Sadi Gambino MD #### IOCAL #### [address] [address] Securities Compliance Examiner: Sha Nicholson MD Abs.Neutrophil (Seg) 8.50 k/uL High 1.50-8.10 [facility] Comment on above: Performed By: #### C BC, PT, CMPX, ALEJANDRO, LIP, MG, KAM, TRIG #### [facility] [address] [place] [address] Securities Compliance Examiner: Sadi Gambino MD #### IOCAL #### [place] [address] Securities Compliance Examiner: Sha Nicholson MD Basophils/100 WBC (Bld) 0 % Normal 0-[address] [facility] Comment on above: Performed By: #### C BC, PT, CMPX, ALEJANDRO, LIP, MG, KAM, TRIG #### [facility] [address] [place] [address] Securities Compliance Examiner: Sadi Gambino MD #### IOCAL #### [place] [address] Securities Compliance Examiner: Sha Nicholson MD Eosinophils (Bld) [#/Vol] 10*3/uL Normal 0.00-0.[address] [facility] Comment on above: Performed By: #### C BC, PT, CMPX, ALEJANDRO, LIP, MG, KAM, TRIG #### [facility] [address] [place] [address] Securities Compliance Examiner: Sadi Gambino MD #### IOCAL #### [address] [address] Securities Compliance Examiner: Sha Nicholson MD Eosinophils/100 WBC (Bld) 0 % Low 1-[address] [facility] Comment on above: Performed By: #### C BC, PT, CMPX, ALEJANDRO, LIP, MG, KAM, TRIG #### [facility] [address] [place] [address] Securities Compliance Examiner: Sadi Gambino MD #### IOCAL #### [address] [address] Securities Compliance Examiner: Sha Nicholson MD Erythrocyte distribution width (RBC) [Ratio] 11.9 % Normal 11.8-14.[address] [facility] Comment on above: Performed By: #### C BC, PT, CMPX, ALEJANDRO, LIP, MG, KAM, TRIG #### [facility] [address] [place] [address] Securities Compliance Examiner: Sadi Gambino MD #### IOCAL #### [address] [address] Securities Compliance Examiner: Sha Nicholson MD Hematocrit (Bld) [Volume fraction] 36.8 % Low 40.7-50.[address] [facility] Comment on above: Performed By: #### C BC, PT, CMPX, ALEJANDRO, LIP, MG, KAM, TRIG #### [facility] [address] [place] [address] Securities Compliance Examiner: Sadi Gambino MD #### IOCAL #### [address] [address] Securities Compliance Examiner: Sha Nicholson MD Hemoglobin (Bld) [Mass/Vol] 13.2 g/dL Normal 13.0-17.[address] [facility] Comment on above: Performed By: #### C BC, PT, CMPX, ALEJANDRO, LIP, MG, KAM, TRIG #### [facility] [address] [place] [address] Securities Compliance Examiner: Sadi Gambino MD #### IOCAL #### [address] [address] Securities Compliance Examiner: Sha Nicholson MD Immature granulocytes (Bld) [#/Vol] 0 % Normal [address] [facility] Comment on above: Performed By: #### C BC, PT, CMPX, ALEJANDRO, LIP, MG, KAM, TRIG #### [facility] [address] [place] [address] Securities Compliance Examiner: Sadi Gambino MD #### IOCAL #### [address] [address] Securities Compliance Examiner: Sha Nicholson MD Lymphocytes (Bld) [#/Vol] 1.44 10*3/uL Normal 1.10-3.[address] [facility] Comment on above: Performed By: #### C BC, PT, CMPX, ALEJANDRO, LIP, MG, KAM, TRIG #### [facility] [address] [place] [address] Securities Compliance Examiner: Sadi Gambino MD #### IOCAL #### [place] [address] Securities Compliance Examiner: Sha Nicholson MD Lymphocytes/100 WBC (Bld) 14 % Low 24-[address] [facility] Comment on above: Performed By: #### C BC, PT, CMPX, ALEJANDRO, LIP, MG, KAM, TRIG #### [facility] [address] [place] [address] Securities Compliance Examiner: Sadi Gambino MD #### IOCAL #### [place] [address] Securities Compliance Examiner: Sha Nicholson MD MCH (RBC) [Entitic mass] 30.2 pg Normal 25.2-33.[address] [facility] Comment on above: Performed By: #### C BC, PT, CMPX, ALEJANDRO, LIP, MG, KAM, TRIG #### [facility] [place] [address] Securities Compliance Examiner: Sadi Gambino MD #### IOCAL #### [address] [address] Securities Compliance Examiner: Sha Nicholson MD MCHC (RBC) [Mass/Vol] 35.9 g/dL High 28.4-34.8 [facility] Comment on above: Performed By: #### C BC, PT, CMPX, ALEJANDRO, LIP, MG, KAM, TRIG #### [facility] [address] [place] [address] Securities Compliance Examiner: Sadi Gambino MD #### IOCAL #### [address] [address] Securities Compliance Examiner: Sha Nicholson MD MCV (RBC) [Entitic vol] 84.2 fL Normal 82.6-102.9 [facility] Comment on above: Performed By: #### C BC, PT, CMPX, ALEJANDRO, LIP, MG, KAM, TRIG #### [facility] [address] [place] [address] Securities Compliance Examiner: Sadi Gambino MD #### IOCAL #### [address] [address] Securities Compliance Examiner: Sha Nicholson MD Monocytes (Bld) [#/Vol] 0.52 10*3/uL Normal 0.10-1.[address] [facility] Comment on above: Performed By: #### C BC, PT, CMPX, ALEJANDRO, LIP, MG, KAM, TRIG #### [facility] [address] [place] [address] Securities Compliance Examiner: Sadi Gambino MD #### IOCAL #### [address] [address] Securities Compliance Examiner: Sha Nicholson MD Monocytes/100 WBC (Bld) 5 % Normal 3-12 [facility] Comment on above: Performed By: #### C BC, PT, CMPX, ALEJANDRO, LIP, MG, KAM, TRIG #### [facility] [address] [place] [address] Securities Compliance Examiner: Sadi Gambino MD #### IOCAL #### [address] [address] Securities Compliance Examiner: Sha Nicholson MD Neutrophil (Seg) 81 % High 36-[address] [facility] Comment on above: Performed By: #### C BC, PT, CMPX, ALEJANDRO, LIP, MG, KAM, TRIG #### [facility] [address] [place] [address] Securities Compliance Examiner: Sadi Gabmino MD #### IOCAL #### [address] [address] Securities Compliance Examiner: Sha Nicholson MD NRBC Automated 0.0 per 100 WBC Normal 0.[address] [facility] Comment on above: Performed By: #### C BC, PT, CMPX, ALEJANDRO, LIP, MG, KAM, TRIG #### [facility] [address] [place] [address] Securities Compliance Examiner: Sadi Gambino MD #### IOCAL #### [address] [address] Securities Compliance Examiner: Sha Nicholson MD Platelet mean volume (Bld) [Entitic vol] 10.9 fL Normal 8.1-13.[address] [facility] Comment on above: Performed By: #### C BC, PT, CMPX, ALEJANDRO, LIP, MG, KAM, TRIG #### [facility] [address] [place] [address] [place] [address] Securities Compliance Examiner: Sadi Gambino MD #### IOCAL #### [address] [address] Securities Compliance Examiner: Sha Nicholson MD Platelets (Bld) [#/Vol] 256 10*3/uL Normal 138-[address] [facility] Comment on above: Performed By: #### C BC, PT, CMPX, ALEJANDRO, LIP, MG, KAM, TRIG #### [facility] [address] [place] [address] Securities Compliance Examiner: Sadi Gambino MD #### IOCAL #### [address] [address] Securities Compliance Examiner: Sha Nicholson MD RBC (Bld) [#/Vol] 4.37 10*6/uL Normal 4.21-5.[address] [facility] Comment on above: Performed By: #### C BC, PT, CMPX, ALEJANDRO, LIP, MG, KAM, TRIG #### [facility] [address] [place] [address] Securities Compliance Examiner: Sadi Gambino MD #### IOCAL #### [address] [address] Securities Compliance Examiner: Sha Nicholson MD WBC (Bld) [#/Vol] 10.5 10*3/uL Normal 3.5-11.[address] [facility] Comment on above: Performed By: #### C BC, PT, CMPX, ALEJANDRO, LIP, MG, KAM, TRIG #### [facility] [address] [place] [address] Securities Compliance Examiner: Sadi Gambino MD #### IOCAL #### [address] [address] Securities Compliance Examiner: Sha Nicholson MD Auto Diff Performed NOT REPORTED Normal [facility] Comment on above: Performed By: #### C BC, PT, CMPX, ALEJANDRO, LIP, MG, KAM, TRIG #### [facility] [address] [place] [address] Securities Compliance Examiner: Sadi Gambino MD #### IOCAL #### [address] [address] Securities Compliance Examiner: Sha Nicholson MD Platelets (Bld) [#/Vol] NOT REPORTED Normal [facility] Comment on above: Performed By: #### C BC, PT, CMPX, ALEJANDRO, LIP, MG, KAM, TRIG #### [facility] [address] [place] [address] Securities Compliance Examiner: Sadi Gambino MD #### IOCAL #### [address] [address] Securities Compliance Examiner: Sha Nicholson MD RBC morphology finding Nom (Bld) NOT REPORTED Normal [facility] Comment on above: Performed By: #### C BC, PT, CMPX, ALEJANDRO, LIP, MG, KAM, TRIG #### [facility] [address] [place] [address] Securities Compliance Examiner: Sadi Gambino MD #### IOCAL #### [address] [address] Securities Compliance Examiner: Sha Nicholson MD WBC Morphology NOT REPORTED Normal [facility] Comment on above: Performed By: #### C BC, PT, CMPX, ALEJANDRO, LIP, MG, KAM, TRIG #### [facility] [address] [place] [address] Securities Compliance Examiner: Sadi Gambino MD #### IOCAL #### [address] [address] Securities Compliance Examiner: Sha Nicholson MD Magnesiumon 06-12-2019 Magnesium [Mass/Vol] 1.9 mg/dL Normal 1.6-2.6 [facility] Comment on above: Performed By: #### C BC, PT, CMPX, ALEJANDRO, LIP, MG, KAM, TRIG #### [facility] [address] [place], [place] [address] Securities Compliance Examiner: Sadi Gambino MD #### IOCAL #### [employer] [address] [place], [place] [phone] Securities Compliance Examiner: Sha Nicholson MD Magnesium [Mass/Vol] 1.9 mg/dL 1.6 - 2 .6 mg/dL [place] Surgical Pathologyon 019 Surgical Pathology (NOTE) [id number] [facility] CONSULTING PATHOLOGISTS [facility] ANATOMIC PATHOLOGY [address] [place] [id number] SURGICAL PATHOLOGY CONSULTATION Patient Name: [facility] Rec: [id number] Path Number: [id number] Collected: 06/12/2019 Received: 06/13/2019 Reported: 06/14/2019 09:23 [...] tm Microscopic Description Microscopic examination performed. Normal [facility] Comment on above: Performed By: #### C BC, PT, CMPX, ALEJANDRO, LIP, MG, KAM, TRIG #### [facility] [address] [place] [address] Securities Compliance Examiner: Sadi Gambino MD #### IOCAL #### [facility] [address] [place] [address] Securities Compliance Examiner: Sha Nicholson MD Amylaseon 06-11-2019 Amylase [Catalytic activity/Vol] 88 U/L Normal 28-[address] [facility] Comment on above: Performed By: #### C BC, PT, CMPX, ALEJANDRO, LIP, MG, KAM, TRIG #### [facility] [address] [place] [address] Securities Compliance Examiner: Sadi Gambino MD #### IOCAL #### [facility] [address] [place] [address] Securities Compliance Examiner: Sha Nicholson MD Amylase [Catalytic activity/Vol] 88 U/L 28 - 100 U/L [place] Basic Metabolic Panelon 11-0 Anion gap [Moles/Vol] 12 mmol/L 9 - 17 mmol/L [place] Bun/Cre Ratio 11 [place] Calcium [Mass/Vol] 8.8 mg/dL 8.6 - 10. 4 mg/dL [place] Chloride [Moles/Vol] 104 mmol/L 98 - 10 7 mmol/L [place] CO2 [Moles/Vol] 24 mmol/L 20 - 31 mmol/L [place] Creatinine [Mass/Vol] 0.46 mg/dL Low 0.7 - 1.2 mg/dL [place] GFR >60 >60 mL/min [place] GFR Non- >60 >60 mL/min [place] GFR/1.73 sq M predicted among non-blacks MDRD (S/P/Bld) [Vol rate/Area] NOT REPORTED [place] GFR/1.73 sq M predicted among non-blacks MDRD (S/P/Bld) [Vol rate/Area] [place] Comment on above: Average GFR for 30-3 9 years old: 107 mL/min/1.73sq m Chronic Kidney Disease: <60 mL/min/1.73sq m Kidney failure: <15 mL/min/1.73sq m eGFR calculated using average adult body mass. Additional eGFR calculator available at: http://www.[employer]/multiple_crcl_2011.htm Glucose [Mass/Vol] 92 mg/dL 70 - 99 mg/dL [place] Potassium [Moles/Vol] 3.8 mmol/L 3.7 - 5.3 mmol/L [place] Sodium [Moles/Vol] 140 mmol/L 135 - 144 mmol/L [place] Urea nitrogen [Mass/Vol] 5 mg/dL Low 6 - 20 mg/dL [place] Basic Metabolic Profon 06-11 (cont.) Normal [facility] Comment on above: Result Comment: Aver age GFR for 30-39 years old: 107 mL/min/1.73sq m Chronic Kidney Disease: <60 mL/min/1.73sq m Kidney failure: <15 mL/min/1.73sq m eGFR calculated using average adult body mass. Additional eGFR calculator available at: http://www.[employer]/multiple_crcl_2011.htm Performed By: #### C BC, PT, CMPX, ALEJANDRO, LIP, MG, KAM, TRIG #### [facility] [address] [place] [address] Securities Compliance Examiner: Sadi Gambino MD #### IOCAL #### [facility] [address] [place] [address] Securities Compliance Examiner: Sha Nicholson MD Anion gap [Moles/Vol] 12 mmol/L Normal 9-17 [facility] Comment on above: Performed By: #### C BC, PT, CMPX, ALEJANDRO, LIP, MG, KAM, TRIG #### [facility] [place] [address] Securities Compliance Examiner: Sadi Gambino MD #### IOCAL #### [address] [address] Securities Compliance Examiner: Sha Nicholson MD BUN/CRE Ratio 11 Normal 9-[address] [facility] Comment on above: Performed By: #### C BC, PT, CMPX, ALEJANDRO, LIP, MG, KAM, TRIG #### [facility] [address] [place] [address] Securities Compliance Examiner: Sadi Gambino MD #### IOCAL #### [address] [address] Securities Compliance Examiner: Sha Nicholson MD Calcium [Mass/Vol] 8.8 mg/dL Normal 8.6-10.[address] [facility] Comment on above: Performed By: #### C BC, PT, CMPX, ALEJANDRO, LIP, MG, KAM, TRIG #### [facility] [address] [place] [address] Securities Compliance Examiner: Sadi Gambino MD #### IOCAL #### [address] [address] Securities Compliance Examiner: Sha Nicholson MD Chloride [Moles/Vol] 104 mmol/L Normal 98-107 [facility] Comment on above: Performed By: #### C BC, PT, CMPX, ALEJANDRO, LIP, MG, KAM, TRIG #### [facility] [address] [place] [address] Securities Compliance Examiner: Sadi Gambino MD #### IOCAL #### [address] [address] Securities Compliance Examiner: Sha Nicholson MD CO2 [Moles/Vol] 24 mmol/L Normal 20-[address] [facility] Comment on above: Performed By: #### C BC, PT, CMPX, ALEJANDRO, LIP, MG, KAM, TRIG #### [facility] [address] [place] [address] Securities Compliance Examiner: Sadi Gambino MD #### IOCAL #### [address] [address] Securities Compliance Examiner: Sha Nicholson MD Creatinine [Mass/Vol] 0.46 mg/dL Low 0.70-1.20 [facility] Comment on above: Performed By: #### C BC, PT, CMPX, ALEJANDRO, LIP, MG, KAM, TRIG #### [facility] [address] [place] [address] Securities Compliance Examiner: Sadi Gambino MD #### IOCAL #### [address] [address] Securities Compliance Examiner: Sha Nicholson MD GFR, Amer >60 Normal >[address] [facility] Comment on above: Performed By: #### C BC, PT, CMPX, ALEJANDRO, LIP, MG, KAM, TRIG #### [facility] [address] [place] [address] Securities Compliance Examiner: Sadi Gambino MD #### IOCAL #### [address] [address] Securities Compliance Examiner: Sha Nicholson MD GFR,non Amer >60 Normal >60 [facility] Comment on above: Performed By: #### C BC, PT, CMPX, ALEJANDRO, LIP, MG, KAM, TRIG #### [facility] [address] [place] [address] Securities Compliance Examiner: Sadi Gambino MD #### IOCAL #### [address] [address] Securities Compliance Examiner: Sha Nicholson MD Glucose [Mass/Vol] 92 mg/dL Normal 70-[address] [facility] Comment on above: Performed By: #### C BC, PT, CMPX, ALEJANDRO, LIP, MG, KAM, TRIG #### [facility] [address] [place] [address] Securities Compliance Examiner: Sadi Gambino MD #### IOCAL #### [address] [address] Securities Compliance Examiner: Sha Nicholson MD Potassium [Moles/Vol] 3.8 mmol/L Normal 3.7-5.3 [facility] Comment on above: Performed By: #### C BC, PT, CMPX, ALEJANDRO, LIP, MG, KAM, TRIG #### [facility] [address] [place] [address] Securities Compliance Examiner: Sadi Gambino MD #### IOCAL #### [address] [address] Securities Compliance Examiner: Sha Nicholson MD Sodium [Moles/Vol] 140 mmol/L Normal 135-[address] [facility] Comment on above: Performed By: #### C BC, PT, CMPX, ALEJANDRO, LIP, MG, KAM, TRIG #### [facility] [address] [place] [address] Securities Compliance Examiner: Sadi Gambino MD #### IOCAL #### [address] [address] Securities Compliance Examiner: Sha Nicholson MD Urea nitrogen [Mass/Vol] 5 mg/dL Low 6-[address] [facility] Comment on above: Performed By: #### C BC, PT, CMPX, ALEJANDRO, LIP, MG, KAM, TRIG #### [facility] [address] [place], [place] [phone] Securities Compliance Examiner: Sadi Gambino MD #### IOCAL #### [facility] [address] [place], [place] [phone] Securities Compliance Examiner: Sha Nicholson MD Staging: NOT REPORTED Normal [facility] Comment on above: Performed By: #### C BC, PT, CMPX, ALEJANDRO, LIP, MG, KAM, TRIG #### [facility] [address] [place], [place] [phone] Securities Compliance Examiner: Sadi Gambino MD #### IOCAL #### [facility] [address] [place], [place] [phone] Securities Compliance Examiner: Sha Nicholson MD CBC Auto Differentialon 11-0 Basophils (Bld) [#/Vol] 0.06 10*3/uL [place] Basophils/100 WBC (Bld) 1 % 0 - 2 % [place] Differential Type NOT REPORTED [place] Eosinophils (Bld) [#/Vol] 0.42 10*3/uL [place] Eosinophils/100 WBC (Bld) 4 % 1 - 4 % [place] Erythrocyte distribution width (RBC) [Ratio] 12.1 % 11.8 - 14.4 % [place] Hematocrit (Bld) [Volume fraction] 36.3 % Low 40.7 - 50.3 % [place] Hemoglobin (Bld) [Mass/Vol] 12.8 g/dL Low 13 - 17 g/dL [place] Immature granulocytes (Bld) [#/Vol] 0 % 0 [place] Immature granulocytes (Bld) [#/Vol] 0.03 10*3/uL [place] Interpretation and review of laboratory results Abnormal [place] Lymphocytes (Bld) [#/Vol] 2.30 10*3/uL [place] Lymphocytes/100 WBC (Bld) 24 % 24 - 43 % [place] MCH (RBC) [Entitic mass] 30.5 pg 25.2 - 33.5 pg [place] MCHC (RBC) [Mass/Vol] 35.3 g/dL High 28.4 - 34.8 g/dL [place] MCV (RBC) [Entitic vol] 86.4 fL 82.6 - 102.9 fL [place] Monocytes (Bld) [#/Vol] 0.81 10*3/uL [place] Monocytes/100 WBC (Bld) 8 % 3 - 12 % [place] Platelet mean volume (Bld) [Entitic vol] 10.6 fL 8.1 - 13.5 fL [place] Platelets (Bld) [#/Vol] NOT REPORTED [place] Platelets (Bld) [#/Vol] 215 10*3/uL [place] RBC (Bld) [#/Vol] 4.20 10*6/uL Low 4.21 - 5.7 7 m/uL [place] RBC morphology finding Nom (Bld) NOT REPORTED [place] Segmented neutrophils/100 WBC (Bld) 62 % 36 - 65 % [place] Segs Absolute 5.98 [place] WBC (Bld) [#/Vol] 0.0 10*3/uL 0.0 per 10 0 WBC [place] WBC (Bld) [#/Vol] 9.6 10*3/uL [place] WBC Morphology NOT REPORTED [place] CBC with Diffon 06-11-2019 Abs. Basophil 0.06 k/uL Normal 0.00-0.[address] [facility] Comment on above: Performed By: #### C BC, PT, CMPX, ALEJANDRO, LIP, MG, KAM, TRIG #### [facility] [address] [place] [address] Securities Compliance Examiner: Sadi Gambino MD #### IOCAL #### [place] [address] Securities Compliance Examiner: Sha Nicholson MD Abs.Imm.Granulocyte 0.03 k/uL Normal 0.00-0.[address] [facility] Comment on above: Performed By: #### C BC, PT, CMPX, ALEJANDRO, LIP, MG, KAM, TRIG #### [facility] [address] [place] [address] Securities Compliance Examiner: Sadi Gambino MD #### IOCAL #### [place] [address] Securities Compliance Examiner: Sha Nicholson MD Abs.Neutrophil (Seg) 5.98 k/uL Normal 1.50-8.10 [facility] Comment on above: Performed By: #### C BC, PT, CMPX, ALEJANDRO, LIP, MG, KAM, TRIG #### [facility] [facility] [address] [place] [address] Securities Compliance Examiner: Sadi Gambino MD #### IOCAL #### [place] [address] Securities Compliance Examiner: Sha Nicholson MD Basophils/100 WBC (Bld) 1 % Normal 0-2 [facility] Comment on above: Performed By: #### C BC, PT, CMPX, ALEJANDRO, LIP, MG, KAM, TRIG #### [facility] [address] [place] [address] Securities Compliance Examiner: Sadi Gambino MD #### IOCAL #### [place] [address] Securities Compliance Examiner: Sha Nicholson MD Eosinophils (Bld) [#/Vol] 0.42 10*3/uL Normal 0.00-0.[address] [facility] Comment on above: Performed By: #### C BC, PT, CMPX, ALEJANDRO, LIP, MG, KAM, TRIG #### [facility] [place] [address] Securities Compliance Examiner: Sadi Gambino MD #### IOCAL #### [address] [address] Securities Compliance Examiner: Sha Nicholson MD Eosinophils/100 WBC (Bld) 4 % Normal 1-[address] [facility] Comment on above: Performed By: #### C BC, PT, CMPX, ALEJANDRO, LIP, MG, KAM, TRIG #### [facility] [address] [place] [address] Securities Compliance Examiner: Sadi Gambino MD #### IOCAL #### [address] [address] Securities Compliance Examiner: Sha Nicholson MD Erythrocyte distribution width (RBC) [Ratio] 12.1 % Normal 11.8-14.[address] [facility] Comment on above: Performed By: #### C BC, PT, CMPX, ALEJANDRO, LIP, MG, KAM, TRIG #### [facility] [address] [place] [address] Securities Compliance Examiner: Sadi Gambino MD #### IOCAL #### [address] [address] Securities Compliance Examiner: Sha Nicholson MD Hematocrit (Bld) [Volume fraction] 36.3 % Low 40.7-50.[address] [facility] Comment on above: Performed By: #### C BC, PT, CMPX, ALEJANDRO, LIP, MG, KAM, TRIG #### [facility] [address] [place] [address] Securities Compliance Examiner: Sadi Gambino MD #### IOCAL #### [address] [address] Securities Compliance Examiner: Sha Nicholson MD Hemoglobin (Bld) [Mass/Vol] 12.8 g/dL Low 13.0-17.[address] [facility] Comment on above: Performed By: #### C BC, PT, CMPX, ALEJANDRO, LIP, MG, KAM, TRIG #### [facility] [address] [place] [address] Securities Compliance Examiner: Sadi Gambino MD #### IOCAL #### [place] [address] Securities Compliance Examiner: hSa Nicholson MD Immature granulocytes (Bld) [#/Vol] 0 % Normal [address] [facility] Comment on above: Performed By: #### C BC, PT, CMPX, ALEJANDRO, LIP, MG, KAM, TRIG #### [facility] [address] [place] [address] Securities Compliance Examiner: Sadi Gambino MD #### IOCAL #### [place] [address] Securities Compliance Examiner: Sha Nicholson MD Lymphocytes (Bld) [#/Vol] 2.30 10*3/uL Normal 1.10-3.[address] [facility] Comment on above: Performed By: #### C BC, PT, CMPX, ALEJANDRO, LIP, MG, KAM, TRIG #### [facility] [address] [place] [address] Securities Compliance Examiner: Sadi Gambino MD #### IOCAL #### [place] [address] Securities Compliance Examiner: Sha Nicholson MD Lymphocytes/100 WBC (Bld) 24 % Normal 24-[address] [facility] Comment on above: Performed By: #### C BC, PT, CMPX, ALEJANDRO, LIP, MG, KAM, TRIG #### [facility] [address] [place] [address] Securities Compliance Examiner: Sadi Gambino MD #### IOCAL #### [address] [address] Securities Compliance Examiner: Sha Nicholson MD MCH (RBC) [Entitic mass] 30.5 pg Normal 25.2-33.[address] [facility] Comment on above: Performed By: #### C BC, PT, CMPX, ALEJANDRO, LIP, MG, KAM, TRIG #### [facility] [address] [place] [address] Securities Compliance Examiner: Said Gambino MD #### IOCAL #### [address] [address] Securities Compliance Examiner: Sha Nicholson MD MCHC (RBC) [Mass/Vol] 35.3 g/dL High 28.4-34.8 [facility] Comment on above: Performed By: #### C BC, PT, CMPX, ALEJANDRO, LIP, MG, KAM, TRIG #### [facility] [address] [place] [address] Securities Compliance Examiner: Sadi Gambino MD #### IOCAL #### [address] [address] Securities Compliance Examiner: Sha Nicholson MD MCV (RBC) [Entitic vol] 86.4 fL Normal 82.6-102.9 [facility] Comment on above: Performed By: #### C BC, PT, CMPX, ALEJANDRO, LIP, MG, KAM, TRIG #### [facility] [address] [place] [address] Securities Compliance Examiner: Sadi Gambino MD #### IOCAL #### [address] [address] Securities Compliance Examiner: Sha Nicholson MD Monocytes (Bld) [#/Vol] 0.81 10*3/uL Normal 0.10-1.[address] [facility] Comment on above: Performed By: #### C BC, PT, CMPX, ALEJANDRO, LIP, MG, KAM, TRIG #### [facility] [place] [address] Securities Compliance Examiner: Sadi Gambino MD #### IOCAL #### [address] [address] Securities Compliance Examiner: Sha Nicholson MD Monocytes/100 WBC (Bld) 8 % Normal 3-12 [facility] Comment on above: Performed By: #### C BC, PT, CMPX, ALEJANDRO, LIP, MG, KAM, TRIG #### [facility] [address] [place] [address] Securities Compliance Examiner: Sadi Gambino MD #### IOCAL #### [address] [address] Securities Compliance Examiner: Sha Nicholson MD Neutrophil (Seg) 62 % Normal 36-[address] [facility] Comment on above: Performed By: #### C BC, PT, CMPX, ALEJANDRO, LIP, MG, KAM, TRIG #### [facility] [address] [place] [address] Securities Compliance Examiner: Sadi Gambino MD #### IOCAL #### [address] [address] Securities Compliance Examiner: Sha Nicholson MD NRBC Automated 0.0 per 100 WBC Normal 0.[address] [facility] Comment on above: Performed By: #### C BC, PT, CMPX, ALEJANDRO, LIP, MG, KAM, TRIG #### [facility] [address] [place] [address] Securities Compliance Examiner: Sadi Gambino MD #### IOCAL #### [address] [address] Securities Compliance Examiner: Sha Nicholson MD Platelet mean volume (Bld) [Entitic vol] 10.6 fL Normal 8.1-13.[address] [facility] Comment on above: Performed By: #### C BC, PT, CMPX, ALEJANDRO, LIP, MG, KAM, TRIG #### [facility] [address] [place] [address] Securities Compliance Examiner: Sadi Gambino MD #### IOCAL #### [address] [address] Securities Compliance Examiner: Sha Nicholson MD Platelets (Bld) [#/Vol] 215 10*3/uL Normal 138-[address] [facility] Comment on above: Performed By: #### C BC, PT, CMPX, ALEJANDRO, LIP, MG, KAM, TRIG #### [facility] [address] [place] [address] Securities Compliance Examiner: Sadi Gambino MD #### IOCAL #### [address] [address] Securities Compliance Examiner: Sha Nicholosn MD RBC (Bld) [#/Vol] 4.20 10*6/uL Low 4.21-5.[address] [facility] Comment on above: Performed By: #### C BC, PT, CMPX, ALEJANDRO, LIP, MG, KAM, TRIG #### [facility] [place] [address] Securities Compliance Examiner: Sadi Gambino MD #### IOCAL #### [address] [address] Securities Compliance Examiner: Sha Nicholson MD WBC (Bld) [#/Vol] 9.6 10*3/uL Normal 3.5-11.[address] [facility] Comment on above: Performed By: #### C BC, PT, CMPX, ALEJANDRO, LIP, MG, KAM, TRIG #### [facility] [address] [place] [address] Securities Compliance Examiner: Sadi Gambino MD #### IOCAL #### [address] [address] Securities Compliance Examiner: Sha Nicholson MD Auto Diff Performed NOT REPORTED Normal [facility] Comment on above: Performed By: #### C BC, PT, CMPX, ALEJANDRO, LIP, MG, KAM, TRIG #### [facility] [address] [place] [address] Securities Compliance Examiner: Sadi Gambino MD #### IOCAL #### [address] [address] Securities Compliance Examiner: Sha Nicholson MD Platelets (Bld) [#/Vol] NOT REPORTED Normal [facility] Comment on above: Performed By: #### C BC, PT, CMPX, ALEJANDRO, LIP, MG, KAM, TRIG #### [facility] [address] [place] [address] Securities Compliance Examiner: Sadi Gambino MD #### IOCAL #### [address] [address] Securities Compliance Examiner: Sha Nicholson MD RBC morphology finding Nom (Bld) NOT REPORTED Normal [facility] Comment on above: Performed By: #### C BC, PT, CMPX, ALEJANDRO, LIP, MG, KAM, TRIG #### [facility] [address] [place] [address] Securities Compliance Examiner: Sadi Gambino MD #### IOCAL #### [address] [phone] Securities Compliance Examiner: Sha Nicholson MD WBC Morphology NOT REPORTED Normal [facility] Comment on above: Performed By: #### C BC, PT, CMPX, ALEJANDRO, LIP, MG, KAM, TRIG #### [facility] [address] [place] [address] Securities Compliance Examiner: Sadi Gambino MD #### IOCAL #### [facility] [address] [place], [place] [phone] Securities Compliance Examiner: Sha Nicholson MD [place] ERCP BILIARY AND [...] Stan Samson MD 06/11/[address] [facility] [place] ERCP BILIARY AND PANCREAT IC S&Ion 06-11-2019 Jasen, Mhpn Incoming Radiant Results From [facility] - 06/11/2019 5:18 PM EST EXAMINATION: 10 [...] additional details. IMPRESSION: Intraoperative fluoroscopy for ERCP [place] EXAMINATION: 10 SPOT IMAGES FROM AN [...] correlate with procedure report for additional details. [place] Intraoperative fluoroscopy for [place]CP [place] FLUORO FOR SURGICAL PROCEDUR ESon 06-11-2019 FLUORO FOR SURGICAL PROCEDURES Radiology exam is complete. No Radiologist dictation. Please follow up with ordering provider. Final result Normal [facility] Radiology exam is complete. No Radiologist dictation. Please follow up with ordering provider. [place] Lipaseon 06-11-2019 Lipase [Catalytic activity/Vol] 108 U/L High 13-[address] [facility] Comment on above: Performed By: #### C BC, PT, CMPX, ALEJANDRO, LIP, MG, KAM, TRIG #### [facility] [address] [place] [address] Securities Compliance Examiner: Sadi Gambino MD #### IOCAL #### [facility] [address] [place], [place] [phone] Securities Compliance Examiner: Sha Nicholson MD Lipase [Catalytic activity/Vol] 108 U/L High 13 - 60 U/L [place] Lipid Panelon 06-11-2019 Cholesterol [Mass/Vol] 125 mg/dL <200 [place] Comment on above: Cholesterol Guidelines: <200 Desirable 200-240 Borderline >240 Undesirable Cholesterol in HDL [Mass/Vol] 20 mg/dL Low >40 [place] Comment on above: HDL Guidelines: <40 Undesirable 40-59 Borderline >59 Desirable Cholesterol in LDL [Mass/Vol] 82 mg/dL 0 - 130 mg/dL [place] Comment on above: LDL Guidelines: <100 Desirable 100-129 Near to/above Desirable 130-159 Borderline >159 Undesirable Direct (measured) LDL and calculated LDL are not interchangeable tests. Cholesterol in VLDL [Mass/Vol] NOT REPORTED 1 - 30 mg/dL [place] Cholesterol.total/Bailey sterol in HDL [Mass ratio] 6.3 {ratio} High <5 [place] Triglyceride [Mass/Vol] 117 mg/dL <150 [place] Comment on above: Triglyceride Guidelines: <150 Desirable 150-199 Borderline 200-499 High >499 Very high Based on AHA Guidelines for fasting triglyceride, May 2012. Lipid Profileon 06-11-2019 Cholesterol [Mass/Vol] 125 mg/dL Normal <200 [facility] Comment on above: Result Comment: Cholesterol Guidelines: <200 Desirable 200-240 Borderline >240 Undesirable Performed By: #### C BC, PT, CMPX, ALEJANDRO, LIP, MG, KAM, TRIG #### [facility] [address] [place], [place] [phone] Securities Compliance Examiner: Sadi Gambino MD #### IOCAL #### [facility] [address] [place], [place] [phone] Securities Compliance Examiner: Sha Nicholson MD Cholesterol in HDL [Mass/Vol] 20 mg/dL Low >[address] [facility] Comment on above: Result Comment: HDL Guidelines: <40 Undesirable 40-59 Borderline >59 Desirable Performed By: #### C BC, PT, CMPX, ALEJANDRO, LIP, MG, KAM, TRIG #### [facility] [address] [place] [address] Securities Compliance Examiner: Sadi Gambino MD #### IOCAL #### [address] [phone] Securities Compliance Examiner: Sha Nicholson MD Cholesterol in LDL [Mass/Vol] 82 mg/dL Normal 0-[address] [facility] Comment on above: Result Comment: LDL Guidelines: <100 Desirable 100-129 Near to/above Desirable 130-159 Borderline >159 Undesirable Direct (measured) LDL and calculated LDL are not interchangeable tests. Performed By: #### C BC, PT, CMPX, ALEJANDRO, LIP, MG, KAM, TRIG #### [facility] [address] [place] [address] Securities Compliance Examiner: Sadi Gambino MD #### IOCAL #### [address] [address] Securities Compliance Examiner: Sha Nicholson MD Cholesterol.total/Bailey sterol in HDL [Mass ratio] 6.3 {ratio} High <[address] [facility] Comment on above: Performed By: #### C BC, PT, CMPX, ALEJANDRO, LIP, MG, KAM, TRIG #### [facility] [address] [place] [address] Securities Compliance Examiner: Sadi Gambino MD #### IOCAL #### [address] [address] Securities Compliance Examiner: Sha Nicholson MD Triglyceride [Mass/Vol] 117 mg/dL Normal <150 [facility] Comment on above: Result Comment: Triglyceride Guidelines: <150 Desirable 150-199 Borderline 200-499 High >499 Very high Based on AHA Guidelines for fasting triglyceride, May 2012. Performed By: #### C BC, PT, CMPX, ALEJANDRO, LIP, MG, KAM, TRIG #### [facility] [address] [place] [address] Securities Compliance Examiner: Sadi Gambino MD #### IOCAL #### [address] [address] Securities Compliance Examiner: Sha Nicholson MD Cholesterol in VLDL [Mass/Vol] NOT REPORTED Normal 09-[address] [facility] Comment on above: Performed By: #### C BC, PT, CMPX, ALEJANDRO, LIP, MG, KAM, TRIG #### [facility] [address] [place] [address] Securities Compliance Examiner: Sadi Gambino MD #### IOCAL #### [address] [address] Securities Compliance Examiner: Sha Nicholson MD Magnesiumon 06-11-2019 Magnesium [Mass/Vol] 1.9 mg/dL Normal 1.6-2.6 [facility] Comment on above: Performed By: #### C BC, PT, CMPX, ALEJANDRO, LIP, MG, KAM, TRIG #### [facility] [address] [place] [address] Securities Compliance Examiner: Sadi Gambino MD #### IOCAL #### [address] [address] Securities Compliance Examiner: Sha Nicholson MD Magnesium [Mass/Vol] 1.9 mg/dL 1.6 - 2 .6 mg/dL [place] Otheron 06-11-2019 Interpretation and review of laboratory results Abnormal [place] Amylaseon 06-10-2019 Amylase [Catalytic activity/Vol] 188 U/L High 28-[address] [facility] Comment on above: Performed By: #### C BC, PT, CMPX, ALEJANDRO, LIP, MG, KAM, TRIG #### [facility] [address] [place] [address] Securities Compliance Examiner: Sadi Gambino MD #### IOCAL #### [facility] [address] [place], [place] [phone] Securities Compliance Examiner: Sha Nicholson MD Amylase [Catalytic activity/Vol] 188 U/L High 28 - 100 U/L [place] CBC Auto Differentialon 11-0 Basophils (Bld) [#/Vol] 0.06 10*3/uL [place] Basophils/100 WBC (Bld) 1 % 0 - 2 % [place] Differential Type NOT REPORTED [place] Eosinophils (Bld) [#/Vol] 0.29 10*3/uL [place] Eosinophils/100 WBC (Bld) 3 % 1 - 4 % [place] Erythrocyte distribution width (RBC) [Ratio] 12.1 % 11.8 - 14.4 % [place] Hematocrit (Bld) [Volume fraction] 37.1 % Low 40.7 - 50.3 % [place] Hemoglobin (Bld) [Mass/Vol] 13.0 g/dL 13 - 17 g/dL [place] Immature granulocytes (Bld) [#/Vol] 0.03 10*3/uL [place] Immature granulocytes (Bld) [#/Vol] 0 % 0 [place] Interpretation and review of laboratory results Abnormal [place] Lymphocytes (Bld) [#/Vol] 2.29 10*3/uL [place] Lymphocytes/100 WBC (Bld) 25 % 24 - 43 % [place] MCH (RBC) [Entitic mass] 30.8 pg 25.2 - 33.5 pg [place] MCHC (RBC) [Mass/Vol] 35.0 g/dL High 28.4 - 34.8 g/dL [place] MCV (RBC) [Entitic vol] 87.9 fL 82.6 - 102.9 fL [place] Monocytes (Bld) [#/Vol] 0.76 10*3/uL [place] Monocytes/100 WBC (Bld) 8 % 3 - 12 % [place] Platelet mean volume (Bld) [Entitic vol] 10.8 fL 8.1 - 13.5 fL [place] Platelets (Bld) [#/Vol] NOT REPORTED [place] Platelets (Bld) [#/Vol] 208 10*3/uL [place] RBC (Bld) [#/Vol] 4.22 10*6/uL 4.21 - 5.7 7 m/uL [place] RBC morphology finding Nom (Bld) NOT REPORTED [place] Segmented neutrophils/100 WBC (Bld) 62 % 36 - 65 % [place] Segs Absolute 5.62 [place] WBC (Bld) [#/Vol] 0.0 10*3/uL 0.0 per 10 0 WBC [place] WBC (Bld) [#/Vol] 9.1 10*3/uL [place] WBC Morphology NOT REPORTED [place] CBC with Diffon 06-10-2019 Abs. Basophil 0.06 k/uL Normal 0.00-0.[address] [facility] Comment on above: Performed By: #### C BC, PT, CMPX, ALEJANDRO, LIP, MG, KAM, TRIG #### [facility] [address] [place] [address] Securities Compliance Examiner: Sadi Gambino MD #### IOCAL #### [facility] [address] [place] [address] Securities Compliance Examiner: Sha Nicholson MD Abs.Imm.Granulocyte 0.03 k/uL Normal 0.00-0.[address] [facility] Comment on above: Performed By: #### C BC, PT, CMPX, ALEJANDRO, LIP, MG, KAM, TRIG #### [facility] [address] [place] [address] Securities Compliance Examiner: Sadi Gambino MD #### IOCAL #### [address] [address] Securities Compliance Examiner: Sha Nicholson MD Abs.Neutrophil (Seg) 5.62 k/uL Normal 1.50-8.10 [facility] Comment on above: Performed By: #### C BC, PT, CMPX, ALEJANDRO, LIP, MG, KAM, TRIG #### [facility] [address] [place] [address] Securities Compliance Examiner: Sadi Gambino MD #### IOCAL #### [address] [address] Securities Compliance Examiner: Sha Nicholson MD Basophils/100 WBC (Bld) 1 % Normal 0-[address] [facility] Comment on above: Performed By: #### C BC, PT, CMPX, ALEJANDRO, LIP, MG, KAM, TRIG #### [facility] [address] [place] [address] Securities Compliance Examiner: Sadi Gambino MD #### IOCAL #### [address] [address] Securities Compliance Examiner: Sha Nicholson MD Eosinophils (Bld) [#/Vol] 0.29 10*3/uL Normal 0.00-0.[address] [facility] Comment on above: Performed By: #### C BC, PT, CMPX, ALEJANDRO, LIP, MG, KAM, TRIG #### [facility] [address] [place] [address] Securities Compliance Examiner: Sadi Gambino MD #### IOCAL #### [address] [address] Securities Compliance Examiner: Sha Nicholson MD Eosinophils/100 WBC (Bld) 3 % Normal 1-[address] [facility] Comment on above: Performed By: #### C BC, PT, CMPX, ALEJANDRO, LIP, MG, KAM, TRIG #### [facility] [address] [place] [address] Securities Compliance Examiner: Sadi Gambino MD #### IOCAL #### [address] [address] Securities Compliance Examiner: Sha Nicholson MD Immature granulocytes (Bld) [#/Vol] 0 % Normal [address] [facility] Comment on above: Performed By: #### C BC, PT, CMPX, ALEJANDRO, LIP, MG, KAM, TRIG #### [facility] [address] [place] [address] Securities Compliance Examiner: Sadi Gambino MD #### IOCAL #### [address] [address] Securities Compliance Examiner: Sha Nicholson MD Lymphocytes (Bld) [#/Vol] 2.29 10*3/uL Normal 1.10-3.[address] [facility] Comment on above: Performed By: #### C BC, PT, CMPX, ALEJANDRO, LIP, MG, KAM, TRIG #### [facility] [address] [place] [address] Securities Compliance Examiner: Sadi Gambino MD #### IOCAL #### [address] [address] Securities Compliance Examiner: Sha Nicholson MD Lymphocytes/100 WBC (Bld) 25 % Normal 24-[address] [facility] Comment on above: Performed By: #### C BC, PT, CMPX, ALEJANDRO, LIP, MG, KAM, TRIG #### [facility] [address] [place] [address] Securities Compliance Examiner: Sadi Gambino MD #### IOCAL #### [address] [address] Securities Compliance Examiner: Sha Nicholson MD Monocytes (Bld) [#/Vol] 0.76 10*3/uL Normal 0.10-1.[address] [facility] Comment on above: Performed By: #### C BC, PT, CMPX, ALEJANDRO, LIP, MG, KAM, TRIG #### [facility] [address] [place] [address] Securities Compliance Examiner: Sadi Gambino MD #### IOCAL #### [address] [address] Securities Compliance Examiner: Sha Nicholson MD Monocytes/100 WBC (Bld) 8 % Normal 3-12 [facility] Comment on above: Performed By: #### C BC, PT, CMPX, ALEJANDRO, LIP, MG, KAM, TRIG #### [facility] [address] [place] [address] Securities Compliance Examiner: Sadi Gambino MD #### IOCAL #### [address] [address] Securities Compliance Examiner: Sha Nicholson MD Neutrophil (Seg) 62 % Normal 36-[address] [facility] Comment on above: Performed By: #### C BC, PT, CMPX, ALEJANDRO, LIP, MG, KAM, TRIG #### [facility] [address] [place] [address] Securities Compliance Examiner: Sadi Gambino MD #### IOCAL #### [address] [address] Securities Compliance Examiner: Sha Nicholson MD Erythrocyte distribution width (RBC) [Ratio] 12.1 % Normal 11.8-14.[address] [facility] Comment on above: Performed By: #### C BC, PT, CMPX, ALEJANDRO, LIP, MG, KAM, TRIG #### [facility] [address] [place] [address] Securities Compliance Examiner: Sadi Gambino MD #### IOCAL #### [address] [address] Securities Compliance Examiner: Sha Nicholson MD Hematocrit (Bld) [Volume fraction] 37.1 % Low 40.7-50.[address] [facility] Comment on above: Performed By: #### C BC, PT, CMPX, ALEJANDRO, LIP, MG, KAM, TRIG #### [facility] [address] [place] [address] Securities Compliance Examiner: Sadi Gambino MD #### IOCAL #### [address] [address] Securities Compliance Examiner: Sha Nicholson MD Hemoglobin (Bld) [Mass/Vol] 13.0 g/dL Normal 13.0-17.[address] [facility] Comment on above: Performed By: #### C BC, PT, CMPX, ALEJANDRO, LIP, MG, KAM, TRIG #### [facility] [address] [place] [address] Securities Compliance Examiner: Sadi Gambino MD #### IOCAL #### [address] [address] Securities Compliance Examiner: Sha Nicholson MD MCH (RBC) [Entitic mass] 30.8 pg Normal 25.2-33.[address] [facility] Comment on above: Performed By: #### C BC, PT, CMPX, ALEJANDRO, LIP, MG, KAM, TRIG #### [facility] [address] [place] [address] Securities Compliance Examiner: Sadi Gambino MD #### IOCAL #### [address] [address] Securities Compliance Examiner: Sha Nicholson MD MCHC (RBC) [Mass/Vol] 35.0 g/dL High 28.4-34.8 [facility] Comment on above: Performed By: #### C BC, PT, CMPX, ALEJANDRO, LIP, MG, KAM, TRIG #### [facility] [address] [place] [address] [phone] Securities Compliance Examiner: Sadi Gambino MD #### IOCAL #### [address] [phone] Securities Compliance Examiner: Sha Nicholson MD MCV (RBC) [Entitic vol] 87.9 fL Normal 82.6-102.9 [facility] Comment on above: Performed By: #### C BC, PT, CMPX, ALEJANDRO, LIP, MG, KAM, TRIG #### [facility] [address] [place] [address] [phone] Securities Compliance Examiner: Sadi Gambino MD #### IOCAL #### [address] [phone] Securities Compliance Examiner: Sha Nicholson MD NRBC Automated 0.0 per 100 WBC Normal 0.[address] [facility] Comment on above: Performed By: #### C BC, PT, CMPX, ALEJANDRO, LIP, MG, KAM, TRIG #### [facility] [address] [place] [address] [phone] Securities Compliance Examiner: Sadi Gambino MD #### IOCAL #### [address] [address] [id number] Securities Compliance Examiner: Sha Nicholson MD Platelet mean volume (Bld) [Entitic vol] 10.8 fL Normal 8.1-13.[address] [facility] Comment on above: Performed By: #### C BC, PT, CMPX, ALEJANDRO, LIP, MG, KAM, TRIG #### [facility] [address] [place] [address] Securities Compliance Examiner: Sadi Gambino MD #### IOCAL #### [address] [address] Securities Compliance Examiner: Sha Nicholson MD Platelets (Bld) [#/Vol] 208 10*3/uL Normal 138-[address] [facility] Comment on above: Performed By: #### C BC, PT, CMPX, ALEJANDRO, LIP, MG, KAM, TRIG #### [facility] [address] [place] [address] Securities Compliance Examiner: Sadi Gambino MD #### IOCAL #### [address] [address] Securities Compliance Examiner: Sha Nicholson MD RBC (Bld) [#/Vol] 4.22 10*6/uL Normal 4.21-5.[address] [facility] Comment on above: Performed By: #### C BC, PT, CMPX, ALEJANDRO, LIP, MG, KAM, TRIG #### [facility] [address] [place] [address] Securities Compliance Examiner: Sadi Gambino MD #### IOCAL #### [address] [address] Securities Compliance Examiner: Sha Nicholson MD WBC (Bld) [#/Vol] 9.1 10*3/uL Normal 3.5-11.[address] [facility] Comment on above: Performed By: #### C BC, PT, CMPX, ALEJANDRO, LIP, MG, KAM, TRIG #### [facility] [address] [place] [address]44 Securities Compliance Examiner: Sadi Gambino MD #### IOCAL #### [address] [address] Securities Compliance Examiner: Sha Nicholson MD Auto Diff Performed NOT REPORTED Normal [facility] Comment on above: Performed By: #### C BC, PT, CMPX, ALEJANDRO, LIP, MG, KAM, TRIG #### [facility] [address] [place] [address] Securities Compliance Examiner: Sadi Gambino MD #### IOCAL #### [address] [address] Securities Compliance Examiner: Sha Nicholson MD Platelets (Bld) [#/Vol] NOT REPORTED Normal [facility] Comment on above: Performed By: #### C BC, PT, CMPX, ALEJANDRO, LIP, MG, KAM, TRIG #### [facility] [address] [place] [address] 12490 Securities Compliance Examiner: Sadi Gambino MD #### IOCAL #### [address] [address] Securities Compliance Examiner: Sha Nicholson MD RBC morphology finding Nom (Bld) NOT REPORTED Normal [facility] Comment on above: Performed By: #### C BC, PT, CMPX, ALEJANDRO, LIP, MG, KAM, TRIG #### [facility] [address] [place] [address]87 Securities Compliance Examiner: Sadi Gambino MD #### IOCAL #### [address] [address] Securities Compliance Examiner: Sha Nicholson MD WBC Morphology NOT REPORTED Normal [facility] Comment on above: Performed By: #### C BC, PT, CMPX, ALEJANDRO, LIP, MG, KAM, TRIG #### [facility] [address] [place] [address]184 Securities Compliance Examiner: Sadi Gambino MD #### IOCAL #### [address] [address] Securities Compliance Examiner: Sha Nicholson MD Comp Metab w/Bili Pron 06-10 (cont.) Normal [facility] Comment on above: Result Comment: Aver age GFR for 30-39 years old: 107 mL/min/1.73sq m Chronic Kidney Disease: <60 mL/min/1.73sq m Kidney failure: <15 mL/min/1.73sq m eGFR calculated using average adult body mass. Additional eGFR calculator available at: http://www.[employer]erKit/multiple_crcl_2012.htm Performed By: #### C BC, PT, CMPX, ALEJANDRO, LIP, MG, KAM, TRIG #### [facility] [address] [place] [address] Securities Compliance Examiner: Sadi Gambino MD #### IOCAL #### [address] [address] Securities Compliance Examiner: Sha Nicholson MD Albumin [Mass/Vol] 3.5 g/dL Normal 3.5-5.[address] [facility] Comment on above: Performed By: #### C BC, PT, CMPX, ALEJANDRO, LIP, MG, KAM, TRIG #### [facility] [place] [address] Securities Compliance Examiner: Sadi Gambino MD #### IOCAL #### [address] [address] Securities Compliance Examiner: Sha Nicholson MD Alkaline Phos 89 U/L Normal 40-[address] [facility] Comment on above: Performed By: #### C BC, PT, CMPX, ALEJANDRO, LIP, MG, KAM, TRIG #### [facility] [address] [place] [address]64 Securities Compliance Examiner: Sadi Gambino MD #### IOCAL #### [address] [address] Securities Compliance Examiner: Sha Nicholson MD ALT [Catalytic activity/Vol] 100 U/L High 5-[address] [facility] Comment on above: Performed By: #### C BC, PT, CMPX, ALEJANDRO, LIP, MG, KAM, TRIG #### [facility] [place] [address] Securities Compliance Examiner: Sadi Gambino MD #### IOCAL #### [address] [address] Securities Compliance Examiner: Sha Nicholson MD Anion gap [Moles/Vol] 12 mmol/L Normal 9-17 [facility] Comment on above: Performed By: #### C BC, PT, CMPX, ALEJANDRO, LIP, MG, KAM, TRIG #### [facility] [address] [place] [address] 19876 Securities Compliance Examiner: Sadi Gambino MD #### IOCAL #### [address] [address] Securities Compliance Examiner: Sha Nicholson MD AST [Catalytic activity/Vol] 30 U/L Normal <[address] [facility] Comment on above: Performed By: #### C BC, PT, CMPX, ALEJANDRO, LIP, MG, KAM, TRIG #### [facility] [address] [place] [address] Securities Compliance Examiner: Sadi Gambino MD #### IOCAL #### [address] [address] Securities Compliance Examiner: Sha Nicholson MD Bilirubin Ql (U) 0.87 mg/dL Normal 0.3-1.[address] [facility] Comment on above: Performed By: #### C BC, PT, CMPX, ALEJANDRO, LIP, MG, KAM, TRIG #### [facility] [address] [place] [address] Securities Compliance Examiner: Sadi Gambino MD #### IOCAL #### [address] [address] Securities Compliance Examiner: Sha Nicholson MD Bilirubin, Indirect 0.55 mg/dL Normal 0.00-1.[address] [facility] Comment on above: Performed By: #### C BC, PT, CMPX, ALEJANDRO, LIP, MG, KAM, TRIG #### [facility] [address] [place] [address] Securities Compliance Examiner: Sadi Gambino MD #### IOCAL #### [address] [address] Securities Compliance Examiner: Sha Nicholson MD Bilirubin.direct [Mass/Vol] 0.32 mg/dL High <0.[address] [facility] Comment on above: Performed By: #### C BC, PT, CMPX, ALEJANDRO, LIP, MG, KAM, TRIG #### [facility] [address] [place] [address] Securities Compliance Examiner: Sadi Gambino MD #### IOCAL #### [address] [address] Securities Compliance Examiner: Sha Nicholson MD Calcium [Mass/Vol] 8.5 mg/dL Low 8.6-10.[address] [facility] Comment on above: Performed By: #### C BC, PT, CMPX, ALEJANDRO, LIP, MG, KAM, TRIG #### [facility] [address] [place] [address] Securities Compliance Examiner: Sadi Gambino MD #### IOCAL #### [address] [address] Securities Compliance Examiner: Sha Nicholson MD Chloride [Moles/Vol] 104 mmol/L Normal 98-107 [facility] Comment on above: Performed By: #### C BC, PT, CMPX, ALEJANDRO, LIP, MG, KAM, TRIG #### [facility] [address] [place] [address] Securities Compliance Examiner: Sadi Gambino MD #### IOCAL #### [address] [address] Securities Compliance Examiner: Sha Nicholson MD CO2 [Moles/Vol] 24 mmol/L Normal 20-[address] [facility] Comment on above: Performed By: #### C BC, PT, CMPX, ALEJANDRO, LIP, MG, KAM, TRIG #### [facility] [address] [place] [address] Securities Compliance Examiner: Sadi Gambino MD #### IOCAL #### [address] [address] Securities Compliance Examiner: Sha Nicholson MD Creatinine [Mass/Vol] 0.46 mg/dL Low 0.70-1.20 [facility] Comment on above: Performed By: #### C BC, PT, CMPX, ALEJANDRO, LIP, MG, KAM, TRIG #### [facility] [address] [place] [address] Securities Compliance Examiner: Sadi Gambino MD #### IOCAL #### [address] [address] Securities Compliance Examiner: Sha Nicholson MD GFR, Amer >60 Normal >[address] [facility] Comment on above: Performed By: #### C BC, PT, CMPX, ALEJANDRO, LIP, MG, KAM, TRIG #### [facility] [address] [place] [address] Securities Compliance Examiner: Sadi Gambino MD #### IOCAL #### [address] [address] Securities Compliance Examiner: Sha Nicholson MD GFR,non Amer >60 Normal >60 [facility] Comment on above: Performed By: #### C BC, PT, CMPX, ALEJANDRO, LIP, MG, KAM, TRIG #### [facility] [address] [place] [address] Securities Compliance Examiner: Sadi Gambino MD #### IOCAL #### [address] [address] Securities Compliance Examiner: Sha Nicholson MD Glucose [Mass/Vol] 88 mg/dL Normal 70-[address] [facility] Comment on above: Performed By: #### C BC, PT, CMPX, ALEJANDRO, LIP, MG, KAM, TRIG #### [facility] [address] [place] [address] Securities Compliance Examiner: Sadi Gambino MD #### IOCAL #### [address] [address] Securities Compliance Examiner: Sha Nicholson MD Potassium [Moles/Vol] 3.8 mmol/L Normal 3.7-5.3 [facility] Comment on above: Performed By: #### C BC, PT, CMPX, ALEJANDRO, LIP, MG, KAM, TRIG #### [facility] [address] [place] [address] Securities Compliance Examiner: Sadi Gambino MD #### IOCAL #### [address] [address] Securities Compliance Examiner: Sha Nicholson MD Protein [Mass/Vol] 6.0 g/dL Low 6.4-8.[address] [facility] Comment on above: Performed By: #### C BC, PT, CMPX, ALEJANDRO, LIP, MG, KAM, TRIG #### [facility] [address] [place] [address] [place] [address] Securities Compliance Examiner: Sadi Gambino MD #### IOCAL #### [address] [address] Securities Compliance Examiner: Sha Nicholson MD Sodium [Moles/Vol] 140 mmol/L Normal 135-[address] [facility] Comment on above: Performed By: #### C BC, PT, CMPX, ALEJANDRO, LIP, MG, KAM, TRIG #### [facility] [address] [place] [address] Securities Compliance Examiner: Sadi Gambino MD #### IOCAL #### [address] [address] Securities Compliance Examiner: Sha Nicholson MD Urea nitrogen [Mass/Vol] 5 mg/dL Low 6-[address] [facility] Comment on above: Performed By: #### C BC, PT, CMPX, ALEJANDRO, LIP, MG, KAM, TRIG #### [facility] [address] [place] [address] Securities Compliance Examiner: Sadi Gambino MD #### IOCAL #### [address] [address] Securities Compliance Examiner: Sha Nicholson MD Albumin/Globulin [Mass ratio] NOT REPORTED Normal 1.0-2.[address] [facility] Comment on above: Performed By: #### C BC, PT, CMPX, ALEJANDRO, LIP, MG, KAM, TRIG #### [facility] [address] [place] [address] Securities Compliance Examiner: Sadi Gambino MD #### IOCAL #### [address] [address] Securities Compliance Examiner: Sha Nicholson MD Staging: NOT REPORTED Normal [facility] Comment on above: Performed By: #### C BC, PT, CMPX, ALEJANDRO, LIP, MG, KAM, TRIG #### [facility] [address] [place], [place] [phone] Securities Compliance Examiner: Sadi Gambino MD #### IOCAL #### [facility] [address] [place], [place] [phone] Securities Compliance Examiner: Sha Nicholson MD Comp Metabolic w Bili Profil med 06-10-2019 Albumin [Mass/Vol] 3.5 g/dL 3.5 - 5.2 g/dL [place] Albumin/Globulin [Mass ratio] NOT REPORTED [place] ALP [Catalytic activity/Vol] 89 U/L 40 - 129 U/L [place] ALT [Catalytic activity/Vol] 100 U/L High 5 - 41 U/L [place] Anion gap [Moles/Vol] 12 mmol/L 9 - 17 mmol/L [place] AST [Catalytic activity/Vol] 30 U/L <40 [place] Bilirubin Ql (U) 0.87 mg/dL 0.3 - 1.2 mg/dL [place] Bilirubin, Indirect 0.55 mg/dL 0 - 1 mg/dL [place] Bilirubin.direct [Mass/Vol] 0.32 mg/dL High <0.31 [place] Calcium [Mass/Vol] 8.5 mg/dL Low 8.6 - 10. 4 mg/dL [place] Chloride [Moles/Vol] 104 mmol/L 98 - 10 7 mmol/L [place] CO2 [Moles/Vol] 24 mmol/L 20 - 31 mmol/L [place] Creatinine [Mass/Vol] 0.46 mg/dL Low 0.7 - 1.2 mg/dL [place] GFR >60 >60 mL/min [place] GFR Non- >60 >60 mL/min [place] GFR/1.73 sq M predicted among non-blacks MDRD (S/P/Bld) [Vol rate/Area] NOT REPORTED [place] GFR/1.73 sq M predicted among non-blacks MDRD (S/P/Bld) [Vol rate/Area] [place] Comment on above: Average GFR for 30-3 9 years old: 107 mL/min/1.73sq m Chronic Kidney Disease: <60 mL/min/1.73sq m Kidney failure: <15 mL/min/1.73sq m eGFR calculated using average adult body mass. Additional eGFR calculator available at: http://www.BackerKit/multiple_crcl_2012.htm Glucose [Mass/Vol] 88 mg/dL 70 - 99 mg/dL [place] Potassium [Moles/Vol] 3.8 mmol/L 3.7 - 5.3 mmol/L [place] Protein [Mass/Vol] 6.0 g/dL Low 6.4 - 8.3 g/dL [place] Sodium [Moles/Vol] 140 mmol/L 135 - 144 mmol/L [place] Urea nitrogen [Mass/Vol] 5 mg/dL Low 6 - 20 mg/dL [place] Lipaseon 06-10-2019 Lipase [Catalytic activity/Vol] 198 U/L High 13-[address] [facility] Comment on above: Performed By: #### C BC, PT, CMPX, ALEJANDRO, LIP, MG, KAM, TRIG #### [facility] [address] [place], [place] [phone] Securities Compliance Examiner: Sadi Gambino MD #### IOCAL #### [facility] [address] [place] [address] Securities Compliance Examiner: Sha Nicholson MD Lipase [Catalytic activity/Vol] 198 U/L High 13 - 60 U/L [place] Otheron 06-10-2019 Interpretation and review of laboratory results Abnormal [place] Amylaseon 06-09-2019 Amylase [Catalytic activity/Vol] 645 U/L Critically high 28-[address] [facility] Comment on above: Performed By: #### C BC, PT, CMPX, ALEJANDRO, LIP, MG, KAM, TRIG #### [facility] [address] [place] [address] Securities Compliance Examiner: Sadi Gambino MD #### IOCAL #### [address] [id number] Securities Compliance Examiner: hSa Nicholson MD Amylase [Catalytic activity/Vol] 645 U/L Critically high 28 - 100 U/L [place] CBCon 06-09-2019 Erythrocyte distribution width (RBC) [Ratio] 12.2 % Normal 11.8-14.[address] [facility] Comment on above: Performed By: #### C BC, PT, CMPX, ALEJANDRO, LIP, MG, KAM, TRIG #### [facility] [address] [place] [address] Securities Compliance Examiner: Sadi Gambino MD #### IOCAL #### [address] [address] Securities Compliance Examiner: Sha Nicholson MD Hematocrit (Bld) [Volume fraction] 39.0 % Low 40.7-50.[address] [facility] Comment on above: Performed By: #### C BC, PT, CMPX, ALEJANDRO, LIP, MG, KAM, TRIG #### [facility] [address] [place] [address] Securities Compliance Examiner: Sadi Gambino MD #### IOCAL #### [address] [address] Securities Compliance Examiner: Sha Nicholson MD Hemoglobin (Bld) [Mass/Vol] 13.8 g/dL Normal 13.0-17.[address] [facility] Comment on above: Performed By: #### C BC, PT, CMPX, ALEJANDRO, LIP, MG, KAM, TRIG #### [facility] [address] [place] [address] Securities Compliance Examiner: Sadi Gambino MD #### IOCAL #### [address] [address] Securities Compliance Examiner: Sha Nicholson MD MCH (RBC) [Entitic mass] 30.9 pg Normal 25.2-33.[address] [facility] Comment on above: Performed By: #### C BC, PT, CMPX, ALEJANDRO, LIP, MG, KAM, TRIG #### [facility] [address] [place] [address] Securities Compliance Examiner: Sadi Gambino MD #### IOCAL #### [address] [address] Securities Compliance Examiner: Sha Nicholson MD MCHC (RBC) [Mass/Vol] 35.4 g/dL High 28.4-34.8 [facility] Comment on above: Performed By: #### C BC, PT, CMPX, ALEJANDRO, LIP, MG, KAM, TRIG #### [facility] [address] [place] [address] Securities Compliance Examiner: Sadi Gambino MD #### IOCAL #### [address] [address] Securities Compliance Examiner: Sha Nicholson MD MCV (RBC) [Entitic vol] 87.4 fL Normal 82.6-102.9 [facility] Comment on above: Performed By: #### C BC, PT, CMPX, ALEJANDRO, LIP, MG, KAM, TRIG #### [facility] [place] [address] Securities Compliance Examiner: Sadi Gambino MD #### IOCAL #### [address] [address] Securities Compliance Examiner: Sha Nicholson MD NRBC Automated 0.0 per 100 WBC Normal 0.[address] [facility] Comment on above: Performed By: #### C BC, PT, CMPX, ALEJANDRO, LIP, MG, KAM, TRIG #### [facility] [address] [place] [address] Securities Compliance Examiner: Sadi Gambino MD #### IOCAL #### [address] [address] Securities Compliance Examiner: Sha Nicholson MD Platelet mean volume (Bld) [Entitic vol] 10.7 fL Normal 8.1-13.[address] [facility] Comment on above: Performed By: #### C BC, PT, CMPX, ALEJANDRO, LIP, MG, KAM, TRIG #### [facility] [address] [place] [address] Securities Compliance Examiner: Sadi Gambino MD #### IOCAL #### [address] [address] Securities Compliance Examiner: Sha Nicholson MD Platelets (Bld) [#/Vol] 186 10*3/uL Normal 138-[address] [facility] Comment on above: Performed By: #### C BC, PT, CMPX, ALEJANDRO, LIP, MG, KAM, TRIG #### [facility] [address] [place] [address]697 Securities Compliance Examiner: Sadi Gambino MD #### IOCAL #### [address] [address] Securities Compliance Examiner: Sha Nicholson MD RBC (Bld) [#/Vol] 4.46 10*6/uL Normal 4.21-5.[address] [facility] Comment on above: Performed By: #### C BC, PT, CMPX, ALEJANDRO, LIP, MG, KAM, TRIG #### [facility] [address] [place] [address] Securities Compliance Examiner: Sadi Gambino MD #### IOCAL #### [facility] [address] [place], [place] [phone] Securities Compliance Examiner: Sha Nicholson MD WBC (Bld) [#/Vol] 11.5 10*3/uL High 3.5-11.[address] [facility] Comment on above: Performed By: #### C BC, PT, CMPX, ALEJANDRO, LIP, MG, KAM, TRIG #### [facility] [address] [place], [place] [phone] Securities Compliance Examiner: Sadi Gambino MD #### IOCAL #### [facility] [address] [place], [place] [phone] Securities Compliance Examiner: Sha Nicholson MD Erythrocyte distribution width (RBC) [Ratio] 12.2 % 11.8 - 14.4 % [place] Hematocrit (Bld) [Volume fraction] 39.0 % Low 40.7 - 50.3 % [place] Hemoglobin (Bld) [Mass/Vol] 13.8 g/dL 13 - 17 g/dL [place] Interpretation and review of laboratory results Abnormal [place] MCH (RBC) [Entitic mass] 30.9 pg 25.2 - 33.5 pg [place] MCHC (RBC) [Mass/Vol] 35.4 g/dL High 28.4 - 34.8 g/dL [place] MCV (RBC) [Entitic vol] 87.4 fL 82.6 - 102.9 fL [place] Platelet mean volume (Bld) [Entitic vol] 10.7 fL 8.1 - 13.5 fL [place] Platelets (Bld) [#/Vol] 186 10*3/uL [place] RBC (Bld) [#/Vol] 4.46 10*6/uL 4.21 - 5.7 7 m/uL [place] WBC (Bld) [#/Vol] 0.0 10*3/uL 0.0 per 10 0 WBC [place] WBC (Bld) [#/Vol] 11.5 10*3/uL High [place] Calcium, Ionicon 06-09-2019 Calcium [Mass/Vol] 1.23 mmol/L Normal 1.13-1.[address] [facility] Comment on above: Performed By: #### C BC, PT, CMPX, ALEJANDRO, LIP, MG, KAM, TRIG #### [facility] [address] [place], [place] [phone] Securities Compliance Examiner: Sadi Gambino MD #### IOCAL #### [address] [phone] Securities Compliance Examiner: Sha Nicholson MD Calcium, Ionizedon 9 Calcium [Mass/Vol] 1.23 mmol/L 1.13 - 1. 33 mmol/L [place] Comp Metabolic Pr/rfx MGon 1 08-09-2018 (cont.) Normal [facility] Comment on above: Result Comment: Aver age GFR for 30-39 years old: 107 mL/min/1.73sq m Chronic Kidney Disease: <60 mL/min/1.73sq m Kidney failure: <15 mL/min/1.73sq m eGFR calculated using average adult body mass. Additional eGFR calculator available at: http://www.[employer].Getbazza/multiple_crcl_2012.htm Performed By: #### C BC, PT, CMPX, ALEJANDRO, LIP, MG, KAM, TRIG #### [facility] [address] [place], [place] [phone] Securities Compliance Examiner: Sadi Gambino MD #### IOCAL #### [facility] [address] [place], [place] [phone] Securities Compliance Examiner: Sha Nicholson MD Albumin [Mass/Vol] 3.6 g/dL Normal 3.5-5.[address] [facility] Comment on above: Performed By: #### C BC, PT, CMPX, ALEJANDRO, LIP, MG, KAM, TRIG #### [facility] [address] [place] [address] Securities Compliance Examiner: Sadi Gambino MD #### IOCAL #### [address] [address] Securities Compliance Examiner: Sha Nicholson MD Alkaline Phos 109 U/L Normal 40-[address] [facility] Comment on above: Performed By: #### C BC, PT, CMPX, ALEJANDRO, LIP, MG, KAM, TRIG #### [facility] [place] [address] Securities Compliance Examiner: Sadi Gambino MD #### IOCAL #### [address] [address] Securities Compliance Examiner: Sha Nicholson MD ALT [Catalytic activity/Vol] 119 U/L High 5-[address] [facility] Comment on above: Performed By: #### C BC, PT, CMPX, ALEJANDRO, LIP, MG, KAM, TRIG #### [facility] [address] [place] [address] Securities Compliance Examiner: Sadi Gambino MD #### IOCAL #### [address] [address] Securities Compliance Examiner: Sha Nicholson MD Anion gap [Moles/Vol] 10 mmol/L Normal 9-17 [facility] Comment on above: Performed By: #### C BC, PT, CMPX, ALEJANDRO, LIP, MG, KAM, TRIG #### [facility] [address] [place] [address] Securities Compliance Examiner: Sadi Gambino MD #### IOCAL #### [address] [address] Securities Compliance Examiner: Sha Nicholson MD AST [Catalytic activity/Vol] 31 U/L Normal <[address] [facility] Comment on above: Performed By: #### C BC, PT, CMPX, ALEJANDRO, LIP, MG, KAM, TRIG #### [facility] [address] [place] [address] Securities Compliance Examiner: Sadi Gambino MD #### IOCAL #### [address] [address] Securities Compliance Examiner: Sha Nicholson MD Bilirubin Ql (U) 1.04 mg/dL Normal 0.3-1.[address] [facility] Comment on above: Performed By: #### C BC, PT, CMPX, ALEJANDRO, LIP, MG, KAM, TRIG #### [facility] [address] [place] [address] Securities Compliance Examiner: Sadi Gambino MD #### IOCAL #### [address] [address] Securities Compliance Examiner: Sha Nicholson MD BUN/CRE Ratio 15 Normal 9-[address] [facility] Comment on above: Performed By: #### C BC, PT, CMPX, ALEJANDRO, LIP, MG, KAM, TRIG #### [facility] [address] [place] [address] Securities Compliance Examiner: Sadi Gambino MD #### IOCAL #### [address] [address] Securities Compliance Examiner: Sha Nicholson MD Calcium [Mass/Vol] 8.5 mg/dL Low 8.6-10.[address] [facility] Comment on above: Performed By: #### C BC, PT, CMPX, ALEJANDRO, LIP, MG, KAM, TRIG #### [facility] [address] [place] [address] Securities Compliance Examiner: Sadi Gambino MD #### IOCAL #### [address] [address] Securities Compliance Examiner: Sha Nicholson MD Chloride [Moles/Vol] 101 mmol/L Normal 98-107 [facility] Comment on above: Performed By: #### C BC, PT, CMPX, ALEJANDRO, LIP, MG, KAM, TRIG #### [facility] [address] [place] [address] Securities Compliance Examiner: Sadi Gambino MD #### IOCAL #### [address] [address] Securities Compliance Examiner: Sha Nicholson MD CO2 [Moles/Vol] 25 mmol/L Normal 20-[address] [facility] Comment on above: Performed By: #### C BC, PT, CMPX, ALEJANDRO, LIP, MG, KAM, TRIG #### [facility] [address] [place] [address] Securities Compliance Examiner: Sadi Gambino MD #### IOCAL #### [address] [address] Securities Compliance Examiner: Sha Nicholson MD Creatinine [Mass/Vol] 0.47 mg/dL Low 0.70-1.20 [facility] Comment on above: Performed By: #### C BC, PT, CMPX, ALEJANDRO, LIP, MG, KAM, TRIG #### [facility] [address] [place] [address] Securities Compliance Examiner: Sadi Gambino MD #### IOCAL #### [address] [address] Securities Compliance Examiner: Sha Nicholson MD GFR, Amer >60 Normal >[address] [facility] Comment on above: Performed By: #### C BC, PT, CMPX, ALEJANDRO, LIP, MG, KAM, TRIG #### [facility] [address] [place] [address] Securities Compliance Examiner: Sadi Gambino MD #### IOCAL #### [address] [address] Securities Compliance Examiner: Sha Nicholson MD GFR,non Amer >60 Normal >60 [facility] Comment on above: Performed By: #### C BC, PT, CMPX, ALEJANDRO, LIP, MG, KAM, TRIG #### [facility] [place] [address] Securities Compliance Examiner: Sadi Gambino MD #### IOCAL #### [address] [address] Securities Compliance Examiner: Sha Nicholson MD Glucose [Mass/Vol] 78 mg/dL Normal 70-[address] [facility] Comment on above: Performed By: #### C BC, PT, CMPX, ALEJANDRO, LIP, MG, KAM, TRIG #### [facility] [address] [place] [address] Securities Compliance Examiner: Sadi Gambino MD #### IOCAL #### [address] [address] Securities Compliance Examiner: Sha Nicholson MD Potassium [Moles/Vol] 3.6 mmol/L Low 3.7-5.3 [facility] Comment on above: Performed By: #### C BC, PT, CMPX, ALEJANDRO, LIP, MG, KAM, TRIG #### [facility] [address] [place] [address] Securities Compliance Examiner: Sadi Gambino MD #### IOCAL #### [address] [address] Securities Compliance Examiner: Sha Nicholson MD Protein [Mass/Vol] 6.0 g/dL Low 6.4-8.[address] [facility] Comment on above: Performed By: #### C BC, PT, CMPX, ALEJANDRO, LIP, MG, KMA, TRIG #### [facility] [address] [place] [address] Securities Compliance Examiner: Sadi Gambino MD #### IOCAL #### [address] [address] Securities Compliance Examiner: Sha Nicholson MD Sodium [Moles/Vol] 136 mmol/L Normal 135-[address] [facility] Comment on above: Performed By: #### C BC, PT, CMPX, ALEJANDRO, LIP, MG, KAM, TRIG #### [facility] [address] [place] [address] Securities Compliance Examiner: Sadi Gambino MD #### IOCAL #### [address] [address] Securities Compliance Examiner: Sha Nicholson MD Urea nitrogen [Mass/Vol] 7 mg/dL Normal 6-[address] [facility] Comment on above: Performed By: #### C BC, PT, CMPX, ALEJANDRO, LIP, MG, KAM, TRIG #### [facility] [address] [place] [address] Securities Compliance Examiner: Sadi Gambino MD #### IOCAL #### [address] [address] Securities Compliance Examiner: Sha Nicholson MD Albumin/Globulin [Mass ratio] NOT REPORTED Normal 1.0-2.[address] [facility] Comment on above: Performed By: #### C BC, PT, CMPX, ALEJANDRO, LIP, MG, KAM, TRIG #### [facility] [address] [place] [address] Securities Compliance Examiner: Sadi Gambino MD #### IOCAL #### [address] [place] [address] Securities Compliance Examiner: Sha Nicholson MD Staging: NOT REPORTED Normal [facility] Comment on above: Performed By: #### C BC, PT, CMPX, ALEJANDRO, LIP, MG, KAM, TRIG #### [facility] [address] [place], [place] [id number] Securities Compliance Examiner: Sadi Gambino MD #### IOCAL #### [facility] [address] [place], [place] [phone] Securities Compliance Examiner: Sha Nicholson MD Comprehensive Metabolic Pane l w/ Reflex to MGon 06-09-2019 Albumin [Mass/Vol] 3.6 g/dL 3.5 - 5.2 g/dL [place] Albumin/Globulin [Mass ratio] NOT REPORTED [place] ALP [Catalytic activity/Vol] 109 U/L 40 - 129 U/L [place] ALT [Catalytic activity/Vol] 119 U/L High 5 - 41 U/L [place] Anion gap [Moles/Vol] 10 mmol/L 9 - 17 mmol/L [place] AST [Catalytic activity/Vol] 31 U/L <40 [place] Bilirubin Ql (U) 1.04 mg/dL 0.3 - 1.2 mg/dL [place] Bun/Cre Ratio 15 [place] Calcium [Mass/Vol] 8.5 mg/dL Low 8.6 - 10. 4 mg/dL [place] Chloride [Moles/Vol] 101 mmol/L 98 - 10 7 mmol/L [place] CO2 [Moles/Vol] 25 mmol/L 20 - 31 mmol/L [place] Creatinine [Mass/Vol] 0.47 mg/dL Low 0.7 - 1.2 mg/dL [place] GFR >60 >60 mL/min [place] GFR Non- >60 >60 mL/min [place] GFR/1.73 sq M predicted among non-blacks MDRD (S/P/Bld) [Vol rate/Area] [place] Comment on above: Average GFR for 30-3 9 years old: 107 mL/min/1.73sq m Chronic Kidney Disease: <60 mL/min/1.73sq m Kidney failure: <15 mL/min/1.73sq m eGFR calculated using average adult body mass. Additional eGFR calculator available at: http://www.BackerKit/multiple_crcl_2012.htm GFR/1.73 sq M predicted among non-blacks MDRD (S/P/Bld) [Vol rate/Area] NOT REPORTED [place] Glucose [Mass/Vol] 78 mg/dL 70 - 99 mg/dL [place] Potassium [Moles/Vol] 3.6 mmol/L Low 3.7 - 5.3 mmol/L [place] Protein [Mass/Vol] 6.0 g/dL Low 6.4 - 8.3 g/dL [place] Sodium [Moles/Vol] 136 mmol/L 135 - 144 mmol/L [place] Urea nitrogen [Mass/Vol] 7 mg/dL 6 - 20 mg/dL [place] Lipaseon 06-09-2019 Lipase [Catalytic activity/Vol] 688 U/L High 13-[address] [facility] Comment on above: Performed By: #### C BC, PT, CMPX, ALEJANDRO, LIP, MG, KAM, TRIG #### [facility] [address] [place] [address] Securities Compliance Examiner: Sadi Gambino MD #### IOCAL #### [facility] [address] [place], [place] [phone] Securities Compliance Examiner: Sha Nicholson MD Lipase [Catalytic activity/Vol] 688 U/L High 13 - 60 U/L [place] Magnesiumon 06-09-2019 Magnesium [Mass/Vol] 1.8 mg/dL Normal 1.6-2.6 [facility] Comment on above: Performed By: #### C BC, PT, CMPX, ALEJANDRO, LIP, MG, KAM, TRIG #### [facility] [address] [place] [address] Securities Compliance Examiner: Sadi Gambino MD #### IOCAL #### [address] [address] Securities Compliance Examiner: Sha Nicholson MD Magnesium [Mass/Vol] 1.8 mg/dL 1.6 - 2 .6 mg/dL [place] Otheron 06-09-2019 Interpretation and review of laboratory results Abnormal [place] PTon 06-09-2019 INR Coag (PPP) [Relative time] 1.0 {INR} Normal [facility] Comment on above: Result Comment: Therapeutic Range: Moderate Anticoagulant Intensity: INR = 2.0-3.0 High Anticoagulant Intensity: INR = 2.5-3.5 High anticoagulant intensity for patients with a mechanical prosthetic heart valve, thrombosis and antiphospholipid syndrome, or myocardial infarction. Performed By: #### C BC, PT, CMPX, ALEJANDRO, LIP, MG, KAM, TRIG #### [facility] [address] [place] [address] Securities Compliance Examiner: Sadi Gambino MD #### IOCAL #### [address] [address] Securities Compliance Examiner: Sha Nicholson MD PT Coag (PPP) [Time] 10.6 s Normal 9.7-11.6 [facility] Comment on above: Performed By: #### C BC, PT, CMPX, ALEJANDRO, LIP, MG, KAM, TRIG #### [facility] [place] [address] Securities Compliance Examiner: Sadi Gambino MD #### IOCAL #### [address] [phone] Securities Compliance Examiner: Sha Nicholson MD Phosphoruson 06-09-2019 Phosphate [Mass/Vol] 2.7 mg/dL 2.5 - 4 .5 mg/dL [place] Phosphorus, Inorg.on 019 Phosphorus, Inorg. 2.7 mg/dL Normal 2.5-4.[address] [facility] Comment on above: Performed By: #### C BC, PT, CMPX, ALEJANDRO, LIP, MG, KAM, TRIG #### [facility] [address] [place], [place] [phone] Securities Compliance Examiner: Sadi Gambino MD #### IOCAL #### [facility] [place], [place] [id number] Securities Compliance Examiner: Sha Nicholson MD Protime-INRon 06-09-2019 INR Coag (PPP) [Relative time] 1.0 {INR} [place] Comment on above: Therapeutic Range: Moderate Anticoagulant Intensity: INR = 2.0-3.0 High Anticoagulant Intensity: INR = 2.5-3.5 High anticoagulant intensity for patients with a mechanical prosthetic heart valve, thrombosis and antiphospholipid syndrome, or myocardial infarction. PT Coag (PPP) [Time] 10.6 s [place] Triglycerideon 06-09-2019 Triglyceride [Mass/Vol] 122 mg/dL <150 [place] Comment on above: Triglyceride Guidelines: <150 Desirable 150-199 Borderline 200-499 High >499 Very high Based on AHA Guidelines for fasting triglyceride, May 2012. Triglycerideson 06-09-2019 Triglyceride [Mass/Vol] 122 mg/dL Normal <150 [facility] Comment on above: Result Comment: Triglyceride Guidelines: <150 Desirable 150-199 Borderline 200-499 High >499 Very high Based on AHA Guidelines for fasting triglyceride, May 2012. Performed By: #### C BC, PT, CMPX, ALEJANDRO, LIP, MG, KAM, TRIG #### [facility] [address] [place], [place] [phone] Securities Compliance Examiner: Sadi Gambino MD #### IOCAL #### [facility] [address] [place] [address] Securities Compliance Examiner: Sah Nicholson MD Hepatitis Acute [facility] 06-08 Hep A Ab,IgM NONREACTIVE Normal NR [facility] Comment on above: Performed By: #### P HEP #### [facility] [address] [place] [address] Securities Compliance Examiner: Sha Nicholson MD Hep B Core Ab,IgM NONREACTIVE Normal NR [facility] Comment on above: Performed By: #### P HEP #### [address] [address] Securities Compliance Examiner: Sha Nicholson MD Hep B Surf Ag NONREACTIVE Normal [facility] Comment on above: Performed By: #### P HEP #### [address] [address] Securities Compliance Examiner: Sha Nicholson MD Hep C Ab NONREACTIVE Normal [facility] Comment on above: Result Comment: The hepatitis [...] PCR. Performed By: #### P HEP #### [address] [address] Securities Compliance Examiner: Sha Nicholson MD HAV IgM IA Qn (S) NONREACTIVE NONREACTIVE [place] Hep B Core Ab, IgM NONREACTIVE NONREACTIVE [place] Hepatitis B Surface Ag NONREACTIVE NONREACTIVE [place] Hepatitis C Ab NONREACTIVE NONREACTIVE [place] Comment on above: The hepatitis C [...] [Ratio] 12.4 % 11.8 - 14.4 % [place] Hematocrit (Bld) [Volume fraction] 47.2 % 40.7 - 50.3 % [place] Hemoglobin (Bld) [Mass/Vol] 16.0 g/dL 13 - 17 g/dL [place] Interpretation and review of laboratory results Abnormal [place] MCH (RBC) [Entitic mass] 30.4 pg 25.2 - 33.5 pg [place] MCHC (RBC) [Mass/Vol] 33.9 g/dL 28.4 - 34.8 g/dL [place] MCV (RBC) [Entitic vol] 89.7 fL 82.6 - 102.9 fL [place] Platelet mean volume (Bld) [Entitic vol] 10.6 fL 8.1 - 13.5 fL [place] Platelets (Bld) [#/Vol] 258 10*3/uL [place] RBC (Bld) [#/Vol] 5.26 10*6/uL 4.21 - 5.7 7 m/uL [place] WBC (Bld) [#/Vol] 15.4 10*3/uL [place] WBC (Bld) [#/Vol] 0.0 10*3/uL 0.0 per 10 0 WBC [place] Erythrocyte distribution width (RBC) [Ratio] 12.4 % 11.8 - 14.4 % [place] Hematocrit (Bld) [Volume fraction] 44.2 % 40.7 - 50.3 % [place] Hemoglobin (Bld) [Mass/Vol] 15.0 g/dL 13 - 17 g/dL [place] MCH (RBC) [Entitic mass] 30.7 pg 25.2 - 33.5 pg [place] MCHC (RBC) [Mass/Vol] 33.9 g/dL 28.4 - 34.8 g/dL [place] MCV (RBC) [Entitic vol] 90.4 fL 82.6 - 102.9 fL [place] Platelet mean volume (Bld) [Entitic vol] 10.4 fL 8.1 - 13.5 fL [place] Platelets (Bld) [#/Vol] 227 10*3/uL [place] RBC (Bld) [#/Vol] 4.89 10*6/uL 4.21 - 5.7 7 m/uL [place] WBC (Bld) [#/Vol] 10.1 10*3/uL [place] WBC (Bld) [#/Vol] 0.0 10*3/uL 0.0 per 10 0 WBC [place] Comprehensive Metabolic Pane karla 06-07-2019 Albumin [Mass/Vol] 4.4 g/dL 3.5 - 5.2 g/dL [place] Albumin/Globulin [Mass ratio] 1.5 {ratio} [place] ALP [Catalytic activity/Vol] 120 U/L 40 - 129 U/L [place] ALT [Catalytic activity/Vol] 261 U/L High 5 - 41 U/L [place] Anion gap [Moles/Vol] 12 mmol/L 9 - 17 mmol/L [place] AST [Catalytic activity/Vol] 123 U/L High <40 [place] Bilirubin Ql (U) 5.24 mg/dL High 0.3 - 1.2 mg/dL [place] Bun/Cre Ratio 19 [place] Calcium [Mass/Vol] 9.3 mg/dL 8.6 - 10. 4 mg/dL [place] Chloride [Moles/Vol] 98 mmol/L 98 - 10 7 mmol/L [place] CO2 [Moles/Vol] 26 mmol/L 20 - 31 mmol/L [place] Creatinine [Mass/Vol] 0.57 mg/dL Low 0.7 - 1.2 mg/dL [place] GFR >60 >60 mL/min [place] GFR Non- >60 >60 mL/min [place] Glucose [Mass/Vol] 89 mg/dL 70 - 99 mg/dL [place] Interpretation and review of laboratory results Abnormal [place] Potassium [Moles/Vol] 3.5 mmol/L Low 3.7 - 5.3 mmol/L [place] Protein [Mass/Vol] 7.4 g/dL 6.4 - 8.3 g/dL [place] Sodium [Moles/Vol] 136 mmol/L 135 - 144 mmol/L [place] Urea nitrogen [Mass/Vol] 11 mg/dL 6 - 20 mg/dL [place] Comprehensive Metabolic Pane l w/ Reflex to MGon 06-07-2019 Albumin [Mass/Vol] 3.9 g/dL 3.5 - 5.2 g/dL [place] Albumin/Globulin [Mass ratio] 1.4 {ratio} [place] ALP [Catalytic activity/Vol] 90 U/L 40 - 129 U/L [place] ALT [Catalytic activity/Vol] 289 U/L High 5 - 41 U/L [place] Anion gap [Moles/Vol] 13 mmol/L 9 - 17 mmol/L [place] AST [Catalytic activity/Vol] 201 U/L High <40 [place] Bilirubin Ql (U) 3.38 mg/dL High 0.3 - 1.2 mg/dL [place] Bun/Cre Ratio 15 [place] Calcium [Mass/Vol] 9.3 mg/dL 8.6 - 10. 4 mg/dL [place] Chloride [Moles/Vol] 99 mmol/L 98 - 10 7 mmol/L [place] CO2 [Moles/Vol] 22 mmol/L 20 - 31 mmol/L [place] Creatinine [Mass/Vol] 0.61 mg/dL Low 0.7 - 1.2 mg/dL [place] GFR >60 >60 mL/min [place] GFR Non- >60 >60 mL/min [place] Glucose [Mass/Vol] 88 mg/dL 70 - 99 mg/dL [place] Interpretation and review of laboratory results Abnormal [place] Potassium [Moles/Vol] 4.3 mmol/L 3.7 - 5.3 mmol/L [place] Protein [Mass/Vol] 6.7 g/dL 6.4 - 8.3 g/dL [place] Sodium [Moles/Vol] 134 mmol/L Low 135 - 144 mmol/L [place] Urea nitrogen [Mass/Vol] 9 mg/dL 6 - 20 mg/dL [place] EKG 12 Leadon 06-07-2019 Atrial Rate 80 BPM [place] P Dumas -6 degrees [place] P-R Interval 146 ms [place] Q-T Interval 380 ms [place] QRS Duration 104 ms [place] QTc Calculation (Bazett) 438 ms [place] R Dumas -6 degrees [facility], [place] T Dumas 25 degrees [place] Ventricular Rate 80 BPM [place] Jasen, Mhpn Incoming Ekg Results From [facility] - 06/07/2019 5:43 AM EDT Normal sinus rhythm Normal ECG When compared with ECG of 17-FEB-2018 18:55, No significant change was found Confirmed by Abran RITCHIE MD ([id number]) on 06/07/2019 5:43:09 AM [place] Normal sinus rhythm Normal ECG When compared with ECG of 17-FEB-2018 18:55, No significant change was found Confirmed by Abran RITCHIE MD ([id number]) on 06/07/2019 5:43:09 AM [place] Lactic Acid, Plasmaon 2018 Lactate [Moles/Vol] 1.1 mmol/L 0.5 - 2. 2 mmol/L [place] Lactic Acid, Whole Blood NOT REPORTED 0.7 - 2.1 mmol/L [place] Lipaseon 06-07-2019 Interpretation and review of laboratory results Abnormal [place] Lipase [Catalytic activity/Vol] U/L Critically high 13 - 60 U/L [place] Metabolic Panelon 06-07-2019 GFR/1.73 sq M predicted among non-blacks MDRD (S/P/Bld) [Vol rate/Area] [place] Comment on above: Average GFR for 30-3 9 years old: 107 mL/min/1.73sq m Chronic Kidney Disease: <60 mL/min/1.73sq m Kidney failure: <15 mL/min/1.73sq m eGFR calculated using average adult body mass. Additional eGFR calculator available at: http://www.BackerKit/multiple_crcl_2012.htm Stage 1: Some kidney damage normal GFR Stage 2: Mild kidney damage GFR 60-89 Stage 3: Moderate kidney damage GFR 30-59 Stage 4: Severe kidney damage GFR 15-29 Stage 5: Severe kidney damage GFR <15 ESRD - chronic treatment by dialysis or transplant GFR/1.73 sq M predicted among non-blacks MDRD (S/P/Bld) [Vol rate/Area] [place] Comment on above: Average GFR for 30-3 9 years old: 107 mL/min/1.73sq m Chronic Kidney Disease: <60 mL/min/1.73sq m Kidney failure: <15 mL/min/1.73sq m eGFR calculated using average adult body mass. Additional eGFR calculator available at: http://www.BackerKit/multiple_crcl_2012.htm Stage 1: Some kidney damage normal GFR Stage 2: Mild kidney damage GFR 60-89 Stage 3: Moderate kidney damage GFR 30-59 Stage 4: Severe kidney damage GFR 15-29 Stage 5: Severe kidney damage GFR <15 ESRD - chronic treatment by dialysis or transplant US GALLBLADDER RUQon 019 Cholesterol [Mass/Vol] Cholelithiasis. Abnormal findings of the gallbladder, suspicious for acute cholecystitis. [place] Jasen, Mhpn Incoming Radiant Results From [facility] - 06/07/2019 7:57 AM EDT EXAMINATION: RIGHT [...] of the gallbladder, suspicious for acute cholecystitis. [place] EXAMINATION: RIGHT UPPER QUADRANT ULTRASOUND 06/07/2019 7:01 [...] No evidence of right upper quadrant ascites. [place] APTTon 06-06-2019 aPTT Coag (Bld) [Time] 26.9 s [place] CBC auto differentialon 05-09 Basophils (Bld) [#/Vol] 0.05 10*3/uL [place] Basophils/100 WBC (Bld) 0 % 0 - 2 % [place] Differential Type NOT REPORTED [place] Eosinophils (Bld) [#/Vol] 0.09 10*3/uL [place] Eosinophils/100 WBC (Bld) 1 % 1 - 4 % [place] Erythrocyte distribution width (RBC) [Ratio] 12.0 % 11.8 - 14.4 % [place] Hematocrit (Bld) [Volume fraction] 48.2 % 40.7 - 50.3 % [place] Hemoglobin (Bld) [Mass/Vol] 17.0 g/dL 13 - 17 g/dL [place] Immature granulocytes (Bld) [#/Vol] 0.06 10*3/uL [place] Immature granulocytes (Bld) [#/Vol] 0 % 0 [place] Interpretation and review of laboratory results Abnormal [place] Lymphocytes (Bld) [#/Vol] 1.45 10*3/uL [place] Lymphocytes/100 WBC (Bld) 10 % Low 24 - 43 % [place] MCH (RBC) [Entitic mass] 31.1 pg 25.2 - 33.5 pg [place] MCHC (RBC) [Mass/Vol] 35.3 g/dL High 28.4 - 34.8 g/dL [place] MCV (RBC) [Entitic vol] 88.1 fL 82.6 - 102.9 fL [place] Monocytes (Bld) [#/Vol] 0.82 10*3/uL [place] Monocytes/100 WBC (Bld) 6 % 3 - 12 % [place] Platelet mean volume (Bld) [Entitic vol] 10.5 fL 8.1 - 13.5 fL [place] Platelets (Bld) [#/Vol] 268 10*3/uL [place] Platelets (Bld) [#/Vol] NOT REPORTED [place] RBC (Bld) [#/Vol] 5.47 10*6/uL 4.21 - 5.7 7 m/uL [place] RBC morphology finding Nom (Bld) NOT REPORTED [place] Segmented neutrophils/100 WBC (Bld) 83 % High 36 - 65 % [place] Segs Absolute 11.83 High [place] WBC (Bld) [#/Vol] 0.0 10*3/uL 0.0 per 10 0 WBC [place] WBC (Bld) [#/Vol] 14.3 10*3/uL [place] WBC Morphology NOT REPORTED [place] ABDOMEN PELVIS W IV CONTR Lynn 06-06-2019 INR Coag (Bld) [Relative time] Addendum by Hitesh Becker MD on 06/06/2019 8:35 PM ADDENDUM: Possible mild pericholecystic fluid and punctate gallstone. Possible mild inflammatory changes. Recommend gallbladder ultrasound to exclude cholelithiasis or cholecystitis. [place] EXAMINATION: CT OF THE ABDOMEN AND [...] fusion rods and a disc spacer L4-5. [place] Nonobstructing nephrolith on the left otherwise no acute disease [place] Jasen, Mhpn Incoming Radiant Results From [facility] - 06/06/2019 8:01 PM EDT EXAMINATION: CT [...] on the left otherwise no acute disease [place] Comprehensive metabolic pane karla 06-06-2019 Albumin [Mass/Vol] 4.9 g/dL 3.5 - 5.2 g/dL [place] Albumin/Globulin [Mass ratio] 1.4 {ratio} [place] ALP [Catalytic activity/Vol] 88 U/L 40 - 129 U/L [place] ALT [Catalytic activity/Vol] 268 U/L High 5 - 41 U/L [place] Anion gap [Moles/Vol] 11 mmol/L 9 - 17 mmol/L [place] AST [Catalytic activity/Vol] 241 U/L High <40 [place] Bilirubin Ql (U) 2.32 mg/dL High 0.3 - 1.2 mg/dL [place] Bun/Cre Ratio 15 [place] Calcium [Mass/Vol] 10.4 mg/dL 8.6 - 10. 4 mg/dL [place] Chloride [Moles/Vol] 96 mmol/L Low 98 - 10 7 mmol/L [place] CO2 [Moles/Vol] 29 mmol/L 20 - 31 mmol/L [place] Creatinine [Mass/Vol] 0.62 mg/dL Low 0.7 - 1.2 mg/dL [place] GFR >60 >60 mL/min [place] GFR Non- >60 >60 mL/min [place] Glucose [Mass/Vol] 165 mg/dL High 70 - 99 mg/dL [place] Interpretation and review of laboratory results Abnormal [place] Potassium [Moles/Vol] 4.0 mmol/L 3.7 - 5.3 mmol/L [place] Protein [Mass/Vol] 8.3 g/dL 6.4 - 8.3 g/dL [place] Sodium [Moles/Vol] 136 mmol/L 135 - 144 mmol/L [place] Urea nitrogen [Mass/Vol] 9 mg/dL 6 - 20 mg/dL [place] Lactic acid, plasmaon 2018 Lactate [Moles/Vol] 0.6 mmol/L 0.5 - 2. 2 mmol/L [place] Lactic Acid, Whole Blood NOT REPORTED 0.7 - 2.1 mmol/L [place] Lipaseon 06-06-2019 Lipase [Catalytic activity/Vol] 14 U/L 13 - 60 U/L [place] Metabolic Panelon 06-06-2019 GFR/1.73 sq M predicted among non-blacks MDRD (S/P/Bld) [Vol rate/Area] [place] Comment on above: Stage 1: Some [...] body mass. Additional eGFR calculator available at: http://www.Tenant Magic.Getbazza/multiple_crcl_2012.htm Protime-INRon 06-06-2019 INR Coag (PPP) [Relative time] 1.0 {INR} [place] PT Coag (PPP) [Time] 10.1 s [place] Urinalysis with microscopico n 06-06-2019 Amorphous, UA 3+ Abnormal None [place] Bacteria, UA NOT REPORTED None [place] Bilirubin Urine SMALL Abnormal NEGATIVE [place] Casts UA NOT REPORTED /LPF [place] Color, UA YELLOW YELLOW [place] Crystals UA NOT REPORTED None /HPF [place] Epithelial Cells UA 0 TO 2 [place] Glucose, Ur Negative NEGATIVE [place] Interpretation and review of laboratory results Abnormal [place] Ketones Ql (U) Negative NEGATIVE [place] Leukocyte esterase Test strip Ql (U) Negative NEGATIVE [place] Mucus, UA NOT REPORTED None [place] Nitrite, Urine Negative NEGATIVE [place] Other Observations UA NOT REPORTED NOT REQ. [place] pH, UA 8.5 [place] Protein (U) [Mass/Vol] Negative NEGATIVE [place] RBC (U) [#/Vol] None [place] Renal Epithelial, Urine NOT REPORTED 0 /HPF [place] Specific [place], UA 1.015 [place] Trichomonas, UA NOT REPORTED None [place] Turbidity UA CLEAR CLEAR [place] Urinalysis Comments NOT REPORTED [place] Urine Hgb Negative NEGATIVE [place] Urobilinogen, Urine Normal Normal [place] WBC, UA None [place] Yeast, UA NOT REPORTED None [place] Vital Signs Date Time Vital Sign Value Performing Clinician Sherice gottlieb 07-30-2024 13:55-0500 Blood Pressure Location Tan Mirtha [facility] 07-30-2024 13:55-0500 Body temperature 98.42 [degF] Tan Shannon [facility] 07-30-2024 13:55-0500 Diastolic blood pressure 87 mm[Hg] Tan Shannon [facility] 07-30-2024 13:55-0500 Heart rate 90 /min Tan Shannon [facility] 07-30-2024 13:55-0500 Mean blood pressure 103 mm[Hg] Tan Mourany [facility] 07-30-2024 13:55-0500 Respiratory rate 18 /min Tan Mourany [facility] 07-30-2024 13:55-0500 SaO2% (BldA) [Mass fraction] 93 % Tan Mourany [facility] 07-30-2024 13:55-0500 Systolic blood pressure 135 mm[Hg] Tan Mourany [facility] 07-30-2024 13:47-0500 SaO2% (BldA) [Mass fraction] 93 % Tan Mourany [facility] 07-30-2024 13:32-0500 SaO2% (BldA) [Mass fraction] 92 % Tan Mourany [facility] 07-30-2024 12:51-0500 Blood Pressure Location Tan Mourany [facility] 07-30-2024 12:51-0500 Body temperature 98.24 [degF] Tan Mourany [facility] 07-30-2024 12:51-0500 Diastolic blood pressure 79 mm[Hg] Tan Mourany [facility] 07-30-2024 12:51-0500 Heart rate 88 /min Tan Mourany [facility] 07-30-2024 12:51-0500 Respiratory rate 18 /min Tan Mourany [facility] 07-30-2024 12:51-0500 Systolic blood pressure 126 mm[Hg] Tan Mourany [facility] 07-30-2024 12:40-0500 Body temperature 98.42 [degF] Tan Mourany [facility] 07-30-2024 12:40-0500 Diastolic blood pressure 74 mm[Hg] Tan Mourany [facility] 07-30-2024 12:40-0500 Heart rate 89 /min Tan Mourany [facility] 07-30-2024 12:40-0500 Mean blood pressure 91 mm[Hg] Tan Mourany [facility] 07-30-2024 12:40-0500 Respiratory rate 14 /min Tan Mourany [facility] 07-30-2024 12:40-0500 Systolic blood pressure 126 mm[Hg] Tan Mourany [facility] 07-30-2024 12:30-0500 Heart rate 89 /min Tan Mourany [facility] 07-30-2024 12:30-0500 Mean blood pressure 97 mm[Hg] Tan Mourany [facility] 07-30-2024 12:30-0500 Respiratory rate 10 /min Tan Mourany [facility] 07-30-2024 12:25-0500 Heart rate 87 /min Tan Mourany [facility] 07-30-2024 12:25-0500 Respiratory rate 9 /min Tan Mourany [facility] 07-30-2024 07:33-0500 Mean blood pressure 104 mm[Hg] Tan Mourany [facility] 07-30-2024 07:32-0500 Respiratory rate 16 /min Tan Mourany [facility] 07-30-2024 07:32-0500 Body temperature 97.52 [degF] Tan Mourany [facility] 07-30-2024 07:32-0500 Mean blood pressure 114 mm[Hg] Tan Mourany [facility] 07-26-2024 08:44-0500 Diastolic blood pressure 93 mm[Hg] Tan Mourany [facility] 07-26-2024 08:44-0500 Heart rate 75 /min Tan Mourany [facility] 07-26-2024 08:44-0500 Systolic blood pressure 142 mm[Hg] Tan Mourany [facility] 04-09-2024 16:00-0400 Mean blood pressure 117 mm[Hg] Tan Ke [facility] 04-09-2024 16:00-0400 Respiratory rate 18 /min Tan Ke [facility] 04-09-2024 16:00-0400 SaO2% (BldA) [Mass fraction] 95 % Tan Ke [facility] 04-09-2024 16:00-0400 Systolic blood pressure 152 mm[Hg] Tan Ke [facility] 04-09-2024 15:00-0400 Diastolic blood pressure 86 mm[Hg] Tan Ke [facility] 04-09-2024 15:00-0400 Heart rate 73 /min Tan Ke [facility] 04-09-2024 15:00-0400 SaO2% (BldA) [Mass fraction] 96 % Tan Ke [facility] 04-09-2024 15:00-0400 Systolic blood pressure 142 mm[Hg] Tan Ke [facility] 04-09-2024 13:49-0400 Diastolic blood pressure 100 mm[Hg] Tan Ke [facility] 04-09-2024 13:49-0400 Heart rate 75 /min Tan Ke [facility] 04-09-2024 13:49-0400 Mean blood pressure 118 mm[Hg] Tan Ke [facility] 04-09-2024 13:49-0400 Respiratory rate 12 /min Tan Ke [facility] 04-09-2024 13:49-0400 SaO2% (BldA) [Mass fraction] 97 % Tan Ke [facility] 04-09-2024 13:49-0400 Systolic blood pressure 153 mm[Hg] Tan Ke [facility] 04-09-2024 13:27-0400 Hourly Rounding Tan Daileye [facility] 04-09-2024 13:27-0400 Promise to Return Tan Ke [facility] 04-09-2024 12:52-0400 Body temperature 98.06 [degF] Tan Ek [facility] 04-09-2024 12:52-0400 Heart rate 78 /min Tan Ke [facility] 04-09-2024 12:52-0400 Respiratory rate 16 /min Tan Ke [facility] 04-04-2024 12:26-0400 Body temperature 97.7 [degF] [facility] 04-04-2024 12:26-0400 Diastolic blood pressure 98 mm[Hg] [facility] 04-04-2024 12:26-0400 Heart rate 92 /min [facility] 04-04-2024 12:26-0400 Respiratory rate 16 /min [facility] 04-04-2024 12:26-0400 SaO2% (BldA) [Mass fraction] 96 % [facility] 04-04-2024 12:26-0400 Systolic blood pressure 177 mm[Hg] [facility] 12-21-2023 13:55-0400 Body height 177.8 cm Eli Bonilla DO Work Phone: [facility] 12-21-2023 13:55-0400 Body mass index (BMI) [Ratio] 35.84 kg/m2 Eli Bonilla DO Work Phone: [facility] 12-21-2023 13:55-0400 Body weight 113.31 kg Eli Dotyton DO Work Phone: [facility] 12-21-2023 13:55-0400 Diastolic blood pressure 90 mm[Hg] Eli Dotyton DO Work Phone: [facility] 12-21-2023 13:55-0400 Heart rate 76 /min Eli Dotyton DO Work Phone: [facility] 12-21-2023 13:55-0400 SaO2% (BldA) [Mass fraction] 95 % Eli Dotyton DO Work Phone: [facility] 12-21-2023 13:55-0400 Systolic blood pressure 147 mm[Hg] Eli Dotyton DO Work Phone: [facility] 10-23-2023 12:27-0400 Diastolic blood pressure 84 mm[Hg] Vickie PATRICIAICK [facility] 10-23-2023 12:27-0400 Heart rate 115 /min Ronobir CLARY [facility] 10-23-2023 12:27-0400 Systolic blood pressure 135 mm[Hg] Ronobir CLARY [facility] 10-23-2023 12:06-0400 Hourly Rounding Ronobir CLARY [facility] 10-23-2023 12:06-0400 Promise to Return Ronobir CLARY [facility] 10-23-2023 11:55-0400 Heart rate 117 /min Ronobir CLARY [facility] 10-23-2023 11:55-0400 SaO2% (BldA) [Mass fraction] 96 % Ronobir CLARY [facility] 10-23-2023 11:54-0400 Diastolic blood pressure 84 mm[Hg] Ronobir CLARY [facility] 10-23-2023 11:54-0400 Mean blood pressure 101 mm[Hg] Ronobir CLARY [facility] 10-23-2023 11:54-0400 Systolic blood pressure 135 mm[Hg] Ronobir CLARY [facility] 10-23-2023 11:53-0400 Body temperature 98.06 [degF] Ronobir CLARY [facility] 10-23-2023 11:11-0400 Hourly Rounding Ronobir CLARY [facility] 10-23-2023 11:11-0400 Promise to Return Ronobir CLARY [facility] 10-23-2023 11:00-0400 Hourly Rounding Ronobir CLARY [facility] 10-23-2023 09:14-0400 Promise to Return Ronobir CLARY [facility] 10-23-2023 02:10-0400 Body temperature 97.7 [degF] Ronobir CLARY [facility] 10-23-2023 02:10-0400 Diastolic blood pressure 86 mm[Hg] Ronobir CLARY [facility] 10-23-2023 02:10-0400 Heart rate 75 /min Ronobir CLARY [facility] 10-23-2023 02:10-0400 Mean blood pressure 102 mm[Hg] Ronobir CLARY [facility] 10-23-2023 02:10-0400 Respiratory rate 18 /min Ronobir CLARY [facility] 10-23-2023 02:10-0400 SaO2% (BldA) [Mass fraction] 96 % Ronobir CLARY [facility] 10-23-2023 02:10-0400 Systolic blood pressure 135 mm[Hg] Ronobir CLARY [facility] 10-22-2023 20:46-0400 Heart rate 112 /min Ronobir CLARY [facility] 10-22-2023 19:00-0400 Heart rate 65 /min Ronobir CLARY [facility] 10-22-2023 19:00-0400 SaO2% (BldA) [Mass fraction] 95 % Ronobir CLARY [facility] 10-22-2023 16:42-0400 Heart rate 83 /min Ronobir CLARY [facility] 10-22-2023 16:39-0400 Body temperature 97.88 [degF] Ronobir CLARY [facility] 10-22-2023 16:39-0400 Mean blood pressure 117 mm[Hg] Ronobir CLARY [facility] 10-22-2023 11:53-0400 Heart rate 75 /min Ronobir CLARY [facility] 10-22-2023 11:52-0400 Mean blood pressure 118 mm[Hg] Ronobir CLARY [facility] 10-22-2023 11:51-0400 Body temperature 97.52 [degF] Ronobir CLARY [facility] 10-22-2023 03:00-0400 Body temperature 98.06 [degF] Ronobir CLARY [facility] 10-22-2023 03:00-0400 Heart rate 84 /min Ronobir CLARY [facility] 10-22-2023 03:00-0400 Respiratory rate 18 /min Ronobir CLARY [facility] 10-22-2023 01:40-0400 Mean blood pressure 120 mm[Hg] Ronobir CLARY [facility] 10-21-2023 22:15-0400 Blood Pressure Location Ronobir CLARY [facility] 10-21-2023 22:15-0400 Heart rate 101 /min Ronobir CLARY [facility] 10-21-2023 22:15-0400 Respiratory rate 18 /min Ronobir CLARY [facility] 10-21-2023 21:00-0400 Mean blood pressure 135 mm[Hg] Ronobir CLARY [facility] 10-21-2023 21:00-0400 Respiratory rate 21 /min Ronobir CLARY [facility] 10-21-2023 20:00-0400 Respiratory rate 8 /min Ronobir CLARY [facility] 10-21-2023 19:45-0400 Respiratory rate 12 /min Ronobir CLARY [facility] 06-09-2021 06:18-0400 SaO2% (BldA) [Mass fraction] 97 % Micheal Kwok MD Work Phone: [facility] Work Phone: 06-09-2021 05:45-0400 Diastolic blood pressure 94 mm[Hg] Micheal Kwok MD Work Phone: [facility] Work Phone: 06-09-2021 05:45-0400 Systolic blood pressure 179 mm[Hg] Micheal Kwok MD Work Phone: [facility] Work Phone: 06-09-2021 05:24-0400 Respiratory rate 20 /min Micheal Kwok MD Work Phone: [facility] Work Phone: 06-09-2021 04:52-0400 Body mass index (BMI) [Ratio] 37.31 kg/m2 Micheal Kwok MD Work Phone: [facility] Work Phone: 06-09-2021 04:52-0400 Body temperature 97 [degF] Micheal Kwok MD Work Phone: [facility] Work Phone: 06-09-2021 04:52-0400 Body weight 117.94 kg Micheal Kwok MD Work Phone: [facility] Work Phone: 06-09-2021 04:52-0400 Heart rate 97 /min Micheal Kwok MD Work Phone: [facility] Work Phone: 06-07-2021 17:08-0400 Diastolic blood pressure 116 mm[Hg] Linette Tapia DO Work Phone: [facility] Work Phone: 06-07-2021 17:08-0400 Systolic blood pressure 181 mm[Hg] Linette Tapia DO Work Phone: [facility] Work Phone: 06-07-2021 17:03-0400 Body temperature 98.2 [degF] Linette Tapia DO Work Phone: [facility] Work Phone: 06-07-2021 17:03-0400 Heart rate 118 /min Linette Tapia DO Work Phone: [facility] Work Phone: 06-07-2021 17:03-0400 Respiratory rate 22 /min Linette Tapia DO Work Phone: [facility] Work Phone: 06-07-2021 17:03-0400 SaO2% (BldA) [Mass fraction] 97 % Linette Tapia DO Work Phone: [facility] Work Phone: 06-13-2019 12:56-0500 Body Temperature 98.1 [degF] [facility] 06-13-2019 12:56-0500 BP Diastolic 82 mm[Hg] [facility]ix [facility] [place] 06-13-2019 12:56-0500 BP Systolic 151 mm[Hg] Humberto Verix [facility] [place] 06-13-2019 12:56-0500 Pulse (Heart Rate) 62 /min [facility] [place] 06-13-2019 12:56-0500 Pulse Oximetry 97 % [facility] [place] 06-13-2019 12:56-0500 Respiratory Rate 16 /min [facility] [place] 06-13-2019 05:21-0500 BMI (Body Mass Index) 28.15 kg/m2 [facility] 06-13-2019 05:21-0500 Body weight 89 kg [facility] [place] 06-13-2019 01:30-0500 Height 177.8 cm [facility] [place] 06-07-2019 22:16-0400 BP Diastolic 99 mm[Hg] Rodrick [facility] , [place] 06-07-2019 22:16-0400 BP Systolic 172 mm[Hg] Rodrick [facility] , [place] 06-07-2019 22:16-0400 Pulse Oximetry 96 % Rodrick [facility] , [place] 06-07-2019 20:11-0400 Pulse (Heart Rate) 78 /min Rodrick [facility] 06-07-2019 20:05-0400 Respiratory Rate 18 /min Rodrick [facility], [place] 06-07-2019 18:00-0400 Body Temperature 97.59 [degF] Rodrick [facility] 06-07-2019 12:46-0400 Body Temperature 98.8 [degF] Kailash Hartmannzjane Montanez [facility], [place] 06-07-2019 12:46-0400 BP Diastolic 84 mm[Hg] Kailash Hartmannzpatrick [facility], [place] 06-07-2019 12:46-0400 BP Systolic 137 mm[Hg] Kailash Rogers [facility], [place] 06-07-2019 12:46-0400 Pulse (Heart Rate) 64 /min Kailash Rogers Lisseth Jhaverilaura [facility], [place] 06-07-2019 12:46-0400 Pulse Oximetry 94 % Kailash Rogers [facility], [place] 06-07-2019 12:46-0400 Respiratory Rate 18 /min Kailash Montanez [facility], [place] 06-07-2019 08:33-0400 Height 177.8 cm Kailash Montanez [facility], [place] 06-07-2019 02:59-0400 BMI (Body Mass Index) 29.27 kg/m2 [facility], [place] 06-07-2019 02:59-0400 Body weight 92.53 kg Kailash Montanez [facility], [place] Encounters Encounter Date Encounter Type Care Provider Facility Start: 07-30-2024 End: 07-30-2024 Admission to same day surgery center Tan Shannon [facility] Start: 07-30-2024 End: 07-30-2024 ambulatory Tan Shannon Facility:[facility] Start: 07-26-2024 End: 07-26-2024 ambulatory Tan Shannon Facility:[facility] Start: 07-26-2024 End: 07-26-2024 Patient encounter procedure Tan Shannon [facility] [place] Start: 07-19-2024 ambulatory Tan Shannon Facility:[facility] Start: 07-17-2024 End: 07-17-2024 Emergency department patient visit Jamarcus Florentin Facility:[facility] Start: 04-09-2024 End: 04-09-2024 Emergency department patient visit Tan Dempsey [facility] Start: 04-04-2024 End: 04-04-2024 Emergency department patient visit John Saldana [facility] Start: 12-22-2023 End: 12-22-2023 Telephone encounter Eli Bonilla DO Work Phone: [facility] - Sleep Disorders Comment on above: Sleep Lab (COMP) Start: 12-21-2023 End: 12-21-2023 ambulatory [facility] Start: 12-21-2023 End: 12-21-2023 Office outpatient new 45 minutes Eli Wise Elston DO Work Phone: [facility] Comment on above: BLANCA (obstructive sle ep apnea) (Primary Dx); SOB (shortness of breath); Chronic cough; Centrilobular emphysema ([facility]); Pulmonary nodule Start: 10-30-2023 End: 10-31-2023 ambulatory [facility] Start: 10-21-2023 End: 10-23-2023 Evaluation and management of inpatient Vickie MEANS Facility:[facility] Start: 10-21-2023 End: 10-23-2023 Evaluation and management of inpatient Vickie MEANS [facility] Start: 06-09-2021 End: 06-09-2021 Emergency department patient visit MICHEAL NAJERABertha [facility] Start: 06-09-2021 End: 06-09-2021 Emergency department patient visit Micheal Kwok MD Work Phone: [facility] ED Comment on above: Cough (Primary Dx); Shortness of breath; Essential hypertension Start: 06-07-2021 End: 06-07-2021 Emergency department patient visit LINETTE TAPIA [facility] Start: 06-07-2021 End: 06-07-2021 Emergency department patient visit Linette Taipa DO Work Phone: [facility] ED Comment on above: Acute upper respirat ory infection (Primary Dx) Start: 02-11-2021 End: 02-11-[address] TAMIKO CHRISTIANSEN Facility: Start: 06-08-2019 End: 06-13-2019 Evaluation and management of inpatient [facility] Start: 06-07-2019 End: 06-13-2019 Evaluation and management of inpatient Humberto Downs Work Phone: [facility] Comment on above: Surgery, elective (P rimary Dx) Start: 06-07-2019 End: 06-07-2019 Emergency department patient visit [facility] ED Comment on above: Choledocholithiasis (Primary Dx) Start: 06-06-2019 End: 06-07-2019 Evaluation and management of inpatient Kailash Rogers [facility] Comment on above: Cholecystitis (Prima ry Dx); Elevated LFTs Procedures Date Procedure Procedure Detail Performing Clinician Start: 07-30-2024 Repair of umbilical hernia Tan Shannon Start: 06-09-2021 PANCHO-Kuldeep RAPID Micheal Kwok MD Work Phone: Start: [...] Work Phone: Start: 06-07-2021 COVID-19, RAPID Urszula Tapia DO Work Phone: Start: 06-13-2019 DISCHARGE PATIENT ARMAAN LEVI Start: 06-13-2019 INCENTIVE SPIROMETRY RT ARMAAN LEVI Start: 06-13-2019 INCENTIVE SPIROMETRY RT ARMAAN LEVI Start: 06-13-2019 PULSE OXIMETRY, CONTINUOUS ARMAAN AMITA Start: 06-13-2019 INCENTIVE SPIROMETRY RT ARMAAN LEVI [...] ARMAAN LEVI Start: 06-13-2019 Assay of amylase [employer] Phone: Start: 06-13-2019 Assay of lipase [employer] Phone: Start: 06-13-2019 Assay of magnesium Robe [facility] [employer] Phone: Start: 06-13-2019 Blood count complete auto&auto difrntl wbc [employer] Phone: Start: 06-13-2019 Comprehensive metabo lic panel [employer] Phone: Start: 06-13-2019 PULSE OXIMETRY, CONTINUOUS ARMAAN [...] ARMAAN LEVI Start: 06-12-2019 WOUND CARE ARMAAN KAPOOR Start: 06-12-2019 AMBULATE PATIENT ARMAAN LEVI Start: 06-12-2019 INTAKE AND OUTPUT ARMAAN LEVI Start: 06-12-2019 NOTIFY PHYSICIAN (SPECIFY) ARMAAN LEVI Start: 06-12-2019 VITAL SIGNS ARMAAN KAPOOR Start: 06-12-2019 TRANSFER PATIENT ARMAAN LEVI Start: [...] complete auto&auto difrntl wbc ARMAAN LEVI Start: 06-12-2019 PULSE OXIMETRY, CONTINUOUS ARMAAN LEVI Start: 06-12-2019 Assay of magnesium Wiss am Bleibel Work Phone: Start: 06-12-2019 Basic metabolic pane l calcium total Wissam Bleibel Work Phone: Start: 06-12-2019 Blood count complete auto&auto difrntl wbc Wissam Bleibel Work Phone: Start: 06-12-2019 INTAKE AND OUTPUT ARMAAN LEVI Start: 06-12-2019 PULSE OXIMETRY, CONTINUOUS ARMAAN LEVI Start: 06-11-2019 PULSE OXIMETRY, CONTINUOUS ARMAAN LEVI Start: 06-11-2019 Cmbn ndsc cathj biliary&pncrtc ductal sys rs&i ARMAAN MULLINSON Start: 06-11-2019 FLUORO FOR SURGICAL PROCEDURES ARMAAN LEVI Start: 06-11-2019 TRANSFER PATIENT ARMAAN LEVI Start: 06-11-2019 PULSE OXIMETRY, CONTINUOUS ARMAAN MULLINSON Start: 06-11-2019 Cmbn ndsc cathj biliary&pncrtc ductal sys rs&i Wissam Bleibel Work Phone: Start: 06-11-2019 FLUORO FOR SURGICAL PROCEDURES Maciel Prajapati Work Phone: Start: 06-11-2019 End: 06-11-2019 Ercp dx collection specimen brushing/washing Maciel Prajapati Work Phone: Start: 06-11-2019 PULSE OXIMETRY, CONTINUOUS ARMAAN AMITA Start: 06-11-2019 INITIATE OXYGEN THER APY PROTOCOL ARMAAN AMITA Start: 06-11-2019 PULSE OXIMETRY, CONTINUOUS ARMAAN AMITA Start: 06-11-2019 Assay of amylase ARMAAN AMITA Start: 06-11-2019 Assay of lipase ARMAAN H UTCHESON Start: 06-11-2019 Assay of magnesium KATI Y AMITA Start: 06-11-2019 Basic metabolic pane l calcium total ARMAAN AMITA Start: 06-11-2019 Blood count complete auto&auto difrntl wbc ARMAAN AMITA Start: 06-11-2019 Lipid panel ARMAAN GANGAC HESON Start: 06-11-2019 PULSE OXIMETRY, CONTINUOUS ARMAAN AMITA Start: 06-11-2019 Assay of amylase Kameron S Retholtz Work Phone: Start: 06-11-2019 Assay of lipase Kameron S Retholtz Work Phone: Start: 06-11-2019 Assay of magnesium Kameron S Retholtz Work Phone: Start: 06-11-2019 Basic metabolic pane l calcium total Kameron S Retholtz Work Phone: Start: 06-11-2019 Blood count complete auto&auto difrntl wbc Kameron S Retholtz Work Phone: Start: 06-11-2019 Lipid panel Kameron S Ret julienne Work Phone: Start: 06-11-2019 ENDO PROCEDURE ARMAAN KASPER TCHESON Start: 06-11-2019 INTAKE AND OUTPUT ARMAAN [...] AMITA Start: 06-10-2019 Assay of amylase Heather Crumpsarah Work Phone: Start: 06-10-2019 Assay of lipase Heather gonzales Work Phone: Start: 06-10-2019 Blood count complete auto&auto difrntl wbc Heather Hernández Work Phone: Start: 06-10-2019 Comprehensive metabo lic panel Heather Betty Work Phone: Start: 06-10-2019 INTAKE AND OUTPUT ARMAAN AMITA Start: 06-10-2019 PULSE OXIMETRY, CONTINUOUS ARMAAN AMITA Start: 06-09-2019 PULSE OXIMETRY, CONTINUOUS ARMAAN AIMTA Start: 06-09-2019 PULSE OXIMETRY, CONTINUOUS ARMAAN AMITA [...] Phone: Start: 06-09-2019 Assay of lipase Joyce Rubi Work Phone: Start: 06-09-2019 Assay of magnesium Angelo fernando Ramosee Work Phone: Start: 06-09-2019 Assay of phosphorus inorganic Joyce Ramosee Work Phone: Start: 06-09-2019 Assay of triglycerides Joyce Rubi Work Phone: Start: 06-09-2019 Blood [...] Start: 06-08-2019 Acute hepatitis panel V rayray Napolesi Work Phone: Start: 06-08-2019 INITIATE OXYGEN THER APY PROTOCOL ARMAAN AMITA Start: 06-08-2019 PULSE OXIMETRY, CONTINUOUS ARMAAN AMITA Start: 06-08-2019 PULSE OXIMETRY, CONTINUOUS ARMAAN AMITA Start: 06-08-2019 CONTACT ISOLATION ARMAAN LEVI Start: 06-08-2019 PLACE INTERMITTENT PNEUMATIC COMPRESSION DEVICE ARMAAN LEVI Start: 06-08-2019 PT EVAL AND TREAT ARMAAN LEVI Start: 06-08-2019 PULSE OXIMETRY SPOT CHECK ARMAAN LEVI Start: 06-08-2019 PULSE OXIMETRY, CONTINUOUS ARMAAN LEVI Start: 06-08-2019 TOBACCO CESSATION EDUCATION ARMAAN LEVI Start: 06-08-2019 VITAL SIGNS ARMAAN KAPOOR Start: 06-08-2019 DAILY WEIGHTS ARMAAN MARTIN Start: 06-08-2019 FULL CODE ARMAAN KAPOOR Start: 06-08-2019 INITIATE OXYGEN THER APY PROTOCOL ARMAAN LEVI Start: 06-08-2019 INTAKE AND OUTPUT ARMAAN LEVI Start: 06-08-2019 IP CONSULT TO GI ARMAAN [...] Us abdominal real ti me w/image limited Margaritoarnulfo Lopez Work Phone: Start: 06-07-2019 Blood count complete auto&auto difrntl wbc Margarito P John Work Phone: Start: 06-07-2019 Blood count complete automated Margarito P Lionelivaubree Work Phone: Start: 06-06-2019 PULSE OXIMETRY SPOT CHECK Margarito P John Work Phone: Start: 06-06-2019 Assay of lactate Robi Lopez Work Phone: Start: 06-06-2019 End: 06-06-2019 Culture bacterial blood aerobic w/id isolates Robi Lopez Work Phone: Start: 06-06-2019 Ecg routine ecg w/le ast 12 lds w/i&r Robi Lopez Work Phone: Start: 06-06-2019 EKG REPORT Hpf Scanni ng Start: 06-06-2019 Ct abdomen & pelvis w/contrast material Kailash Rogers Start: 06-06-2019 Assay of lipase Kailash Rogers Start: 06-06-2019 Blood count complete auto&auto difrntl wbc Kailash Rogers Start: 06-06-2019 Comprehensive metabo lic panel Kailash Rogers Start: 06-06-2019 Prothrombin time Robi Lopez Work Phone: Start: 06-06-2019 Thromboplastin time partial plasma/whole blood Robi Lopez Work Phone: Start: 06-06-2019 Urnls dip stick/tabl et reagent auto microscopy Kailash Rogers Start: 08-07-2018 Cholecystectomy Tan betancourt Comment on above: Newman Appendectomy with drainage R onobir CLARY Blood glucose monito ring equipment (physical object) Tan Shannon Comment on above: Right arm Laparoscopic cholecystostomy Tan Shannon Spinal arthrodesis Vickie CRUZ Comment on above: L4 to L5 Plan of Treatment Date Care Activity Detail Author Start: 09-06-2026 DTaP,Tdap and Td Vac cines (2 - Td or Tdap) DTaP,Tdap and Td Vaccines (2 - Td or Tdap) [facility] Start: 09-06-2026 DTaP/Tdap/Td vaccine (2 - Td or Tdap) DTaP/Tdap/Td vaccine (2 - Td or Tdap) [facility] [employer] Phone: Start: 09-06-2026 DTaP/Tdap/Td vaccine (2 - Td) DTaP/Tdap/Td vaccine (2 - Td) [place] Start: 12-20-2024 Adult BMI Screening Adult BMI Screen ing [facility] Start: 12-20-2024 Tobacco Screening Tobacco Screening [facility] Start: 06-11-2024 Lipid panel Lipid screen [facility] Work Phone: Start: 04-25-2024 End: 04-25-2024 Patient encounter procedure 04/25/2024 2:30 PM EDT Office Visit [facility] [address] [place] [id number] Eli Bonilla, [address] [address] [facility] Start: 04-07-2024 Influenza vaccination Influenza Vacc ine [facility] Start: 12-21-2023 End: 12-20-2024 CT Chest WO contrast CT chest without contrast Imaging Routine Chronic cough Pulmonary nodule Expected: 12/21/2023, Expires: 12/20/2024 [facility] Comment on above: Expected: 12/21/2023 , Expires: 12/20/2024 Start: 06-09-2022 Creatinine measurement Creatinine mo [facility] [employer] Phone: Start: 06-09-2022 Potassium monitoring Potassium monit [facility] [employer] Phone: Start: 04-07-2021 Influenza vaccination Flu vaccine (# 1) [facility] [employer] Phone: Start: 06-13-2020 Potassium monitoring Potassium monit [facility] [employer] Phone: Start: 06-12-2020 Creatinine measurement Creatinine mo [facility] [employer] Phone: Start: 06-11-2020 Creatinine monitoring Creatinine mon [facility] [place] [place] Start: 06-11-2020 Potassium monitoring Potassium monit [place], [place] Start: 06-07-2020 Creatinine monitoring Creatinine mon [place], [place] Start: 06-07-2020 Potassium monitoring Potassium monit [place], [place] Start: 06-06-2020 Creatinine monitoring Creatinine crow [place], [place] Start: 06-06-2020 Potassium monitoring Potassium monit [place], [place] Start: 04-07-2019 Influenza vaccination Flu vaccine (# 1) [place], [place] Start: 1999 Adult BMI Follow Up Plan Adult BMI F ollow Up Plan [facility] Start: 1999 Diabetic foot examination Diabetic F oot Exam [facility] Start: 1996 HIV screen HIV screen [place], [place] Start: 1996 HIV screening HIV screen [facility] Work Phone: Start: 1994 Varicella Vaccine (1 of 2 - 13+ 2-dose series) Varicella Vaccine (1 of 2 - 13+ 2-dose series) [place], [place] Start: 1993 COVID-19 Vaccine (1) COVID-19 Vaccin e (1) [facility] Work Phone: Start: 1993 Depression Screening Depression Scre [facility] Start: 1987 Pneumococcal 0-64 ye ars Vaccine (1 of 1 - PPSV23) Pneumococcal 0-64 years Vaccine (1 of 1 - PPSV23) [place], [place] Start: 1987 Pneumococcal 0-64 ye ars Vaccine (1 of 2 - PPSV23) Pneumococcal 0-64 years Vaccine (1 of 2 - PPSV23) [facility] [employer] Phone: Start: 1982 Varicella vaccine (1 of 2 - 2-dose childhood series) Varicella vaccine (1 of 2 - 2-dose childhood series) [facility] Dining Secretary Phone: Start: 1980 Glaucoma screening Diabetic [facility] Start: 1980 Tobacco Counseling Tobacco Counselin g [facility] End: 12-20-2024 Alpha 1 antitrypsin targeting genotyping Alpha 1 antitrypsin targeting genotyping Lab Routine Chronic cough Centrilobular emphysema (CMS-HCC) 1 Occurrences starting 12/21/2023 until 12/20/2024 [facility] Comment on above: 1 Occurrences starti ng 12/21/2023 until 12/20/2024 End: 12-20-2024 [id number]-3-[id number] Xhnam-5-nydheeyahad Lab Routine Chronic cough Centrilobular emphysema (CMS-HCC) 1 Occurrences starting 12/21/2023 until 12/20/2024 [facility] Comment on above: 1 Occurrences starti ng 12/21/2023 until 12/20/2024 Culture Blood #[facility] [place] [place] E[facility] 12 Lead EKG 12 Lead ECG STAT 06/09/2021 5:11 AM EDT [facility] [employer] Work Phone: End: 12-20-2024 Eosinophil count Eosinophil count Lab Routine Chronic cough Centrilobular emphysema ([facility]-H[facility]) 1 Occurrences starting 12/21/2023 until 12/20/2024 [facility] Comment on above: 1 Occurrences starti ng 12/21/2023 until 12/20/2024 End: 06-06-2019 Hepatitis Panel, Acute Hepatitis Panel, Acute Lab Add-On One Time for 1 Occurrences starting 06/06/2019 until 06/06/2019 [place], [place] Comment on above: One Time for 1 Occur rences starting 06/06/2019 until 06/06/2019 Hepatitis Panel, Acute Hepatitis Panel, Acute Lab Add-On 06/06/2019 6:50 PM EDT [place], [place] End: 12-20-2024 Immunoglobulins Immunoglobulins Lab Routine Chronic cough Centrilobular emphysema ([facility]-HCC) 1 Occurrences starting 12/21/2023 until 12/20/2024 [facility] Comment on above: 1 Occurrences starti ng 12/21/2023 until 12/20/2024 Incentive spirometry Incentive s pirometry Respiratory Care Routine Every 2hr while awake until discontinued starting 06/12/2019 [place], [place] Comment on above: Every 2hr while awak e until discontinued starting 06/12/2019 Initiate Oxygen Ther [facility]: Daily until disconti nued starting 06/06/2019 Daily until disconti nued starting 06/08/2019 Daily until disconti nued starting 06/12/2019 End: 12-20-2024 Polysomnography 4 or more parameters with PAP titration Polysomnography 4 or more parameters with PAP titration Sleep Center Routine BLANCA (obstructive sleep apnea) 1 Occurrences starting 12/21/2023 until 12/20/2024 [facility] Comment on above: 1 Occurrences starti ng 12/21/2023 until 12/20/2024 End: 12-20-2024 PSG Diagnostic PSG Diagnostic [facility] Routine BLANCA (obstructive sleep apnea) 1 Occurrences starting 12/21/2023 until 12/20/2024 [employer] Phone: Comment on above: 1 Occurrences starti ng 12/21/2023 until 12/20/2024 End: 06-12-2019 Pulse Oximetry Spot Check Pulse Oximetry Spot Check Respiratory Care Routine One Time for 1 Occurrences starting 06/12/2019 until 06/12/2019 [facility]: One Time for 1 Occur rences starting 06/12/2019 until 06/12/2019 Pulse oximetry, continuous Pulse oximetry, continuous Respiratory Care Routine Every 4hr until discontinued starting 06/08/2019 [facility] above: Every 4hr until disc ontinued starting 06/08/2019 End: 12-20-2024 Respiratory allergy panel Respiratory allergy panel Lab Routine Chronic cough Centrilobular emphysema (CMS-HCC) 1 Occurrences starting 12/21/2023 until 12/20/2024 [facility] Comment on above: 1 Occurrences starti ng 12/21/2023 until 12/20/2024 Surgical Pathology Surgical Path ology Lab Routine ONE TIME for 1 Occurrences starting 06/12/2019 [facility] Comment on above: ONE TIME for 1 Occur rences starting 06/12/2019 End: 06-13-2019 Surgical Pathology Surgical Pathology Lab Routine Once for 1 Occurrences starting 06/13/2019 until 06/13/2019 [facility] Comment on above: Once for 1 Occurrenc es starting 06/13/2019 until 06/13/2019 Immunizations Immunization Date Immunization Notes Care Provider Verónica escalante 04-21-2017 influenza virus vaccine, unspecified formulation Eli Bonilla DO Work Phone: [facility] 09-06-2016 tetanus toxoid, reduced diphtheria toxoid, and acellular pertussis vaccine, adsorbed Kailash Rogers [place], [place] Payers Date Payer Category Payer Medicaid [id number] 2024 Self-pay 2023 Private Health Insurance [id number] 2023 Private Health Insurance [facility] PLUS [id number] 2023-Present [phone] [address] [address] [place] [address] [id number] 2021 Private Health Insurance [id number] 2018 Unknown [employer] [address] xxxxxxxxxxxx 2018-Present [phone] [address] [place] [address] xxxxxxxxxxxx [id number] 2018 Unknown [id number] 1981 Unknown [id number] 2.16.840.1.472855.3.579.2 .177 1981 Unknown [id number] 2.16.840.1.499726.3.579.2 .593 1981 Unknown [id number] 2.16.840.1.269817.3.579.2 .173 1981 Unknown [id number] 2.16.840.1.295296.3.579.2 .173 1981 Unknown [id number] 2.16.840.1.198469.3.579.2 .1286 1981 Unknown [id number] 2.16.840.1.513837.3.579.2 .1286 1981 Unknown [id number] 2.16.840.1.762248.3.579.2 .1286 1981 Unknown [id number] 2.16.840.1.739428.3.579.2 .727 1981 Unknown [id number] 2.16.840.1.212715.3.579.2 .727 1981 Unknown [id number] 2.16.840.1.063867.3.579.2 .727 1981 Unknown [id number] 2.16.840.1.219669.3.579.2 .727 1981 Unknown [id number] 2.16.840.1.801749.3.579.2 .727 1981 Unknown [id number] 2.16.840.1.448467.3.579.2 .727 1981 Unknown [id number] 2.16.840.1.564231.3.579.2 .727 1981 Unknown [id number] 2.16.840.1.543544.3.579.2 .727 1981 Unknown [id number] 2.16.840.1.241080.3.579.2 .727 1981 Unknown [id number] 2.16.840.1.607524.3.579.2 .727 Social History Date Type Detail Facility Start: 08-07-1993 End: 12-21-2023 Tobacco smoking status TXIS Current every day smoker [facility] Start: 08-07-1993 History of tobacco use Cigarette Smo ker [place], [place] Start: 06-06-2019 End: 09-16-2020 Cigarettes smoked current (pack per day) - Reported [place], [place] Start: 06-06-2019 End: 09-16-2020 Alcohol intake Yes Carlos Trevino [facility] Start: 04-25-2013 Alcohol Comment very rarely [facility] C[facility] Start: 1980 Sex Assigned At Not on file M [facility] Start: 07-01-2019 End: 12-21-2023 Tobacco use and exposure Never used [employer] Start: 07-01-2019 End: 06-09-2021 Alcohol intake Current drinker of alcohol (finding) [employer] Work Phone: Exposure to SARS-CoV -2 (event) Not sure [employer] Start: 10-21-2023 Tobacco smoking status Heavy t obacco smoker (finding) [facility] Start: 07-26-2024 Tobacco smoking status Light t obacco smoker (finding) [facility] [place] Start: 12-21-2023 Alcoholic beverage intake Lifetime non-drinker (finding) [facility] Unknown [employer] [facility] Medical Equipment Procedure Code Equipment Code Equipment Origin al Text Equipment Identifier Dates Clip Lg Laundry Aide [employer] Endo Ster Pk/6 [id number] Start: 06-12-2019 HERNIA REPAIR, R OBOT ASSISTED Tan Shannon MD 07/30/24 Non Biological Abdomen {[id number] {20}02 FDA Start: 07-30-2024 Functional Status Date Assessment Result Facility 07-26-2024 Functional Status No [facility] 04-09-2024 Functional Status N/A [facility] 04-04-2024 Functional Status N/A [facility] 10-21-2023 Functional Status No [facility] 10-21-2023 Functional Status [facility] Clinical Notes 06-07-2021 to 08-01-2024 Note Date & Type Note Facility 08-01-2024 Note Progress Note-Suzy souza Patient: DEVON MATHEW Age: 44 years Sex: Male : 1980 Associated Diagnoses: None Author: Rodrick Guaman Jr, DO Preoperative Information Anesthesia Preop Info: Time patient last ate or drank 07/30/2024 00:00:00. Anesthesia history: Patient history: None. Family history+: None. Informed consent: Signed by patient. Re-evaluation prior to induction: Initial evaluation reviewed: No significant change. Review of Systems Eye: Negative except as documented in history of present illness. Ear/Nose/Mouth/Throat: Negative except as documented in history of present illness. Respiratory: Negative except as documented in history of present illness. Cardiovascular: Negative except as documented in history of present illness. Musculoskeletal: Negative except as documented in history of present illness. Neurologic: Negative except as documented in history of present illness. Health Status Allergies: Allergic Reactions (Selected) No Known Medication Allergies Problem list: All Problems Type II diabetes mellitus uncontrolled / SNOMED CT 0579403966 / Confirmed Smoker / SNOMED CT 886577569 / Confirmed Added secondary to documentation in Social History. Pulmonary emphysema / SNOMED CT 705930664 / Confirmed Obesity due to excess calories / SNOMED CT 9151281612 / Confirmed Incisional hernia / SNOMED CT 226178257 / Confirmed HTN (hypertension) / SNOMED CT 5459520506 / Confirmed Tobacco use / SNOMED CT 9344643168 / Confirmed BMI 38.0-38.9,adult / SNOMED CT 073371557 / Confirmed Acute exacerbation of chronic obstructive airways disease (COPD) / SNOMED CT 2349270052 / Confirmed Resolved: Hypertension / SNOMED CT 19619335 Resolved: Diabetes mellitus type 1 / SNOMED CT 851150880 Resolved: COPD - Chronic obstructive pulmonary disease / SNOMED CT 135378101 Histories Procedure history: Cholecystectomy ([id number]) on 08/07/2018 at 38 Years. Comments: 07/26/2024 8:40 Radha Paniagua MA [facility] Spinal fusion ([id number]). Comments: 10/21/2023 23:16 GARETT Sarah RN, Gabriela Coleman L4 to L5 Appendectomy with drainage ([id number]). Laparoscopic cholecystostomy (Gall Bladder removal) (8917728201). Blood glucose monitoring equipment (031177008). Comments: 07/26/2024 8:43 Radha Paniagua MA Right arm Social History Social & Psychosocial Habits Alcohol 07/26/2024 Risk Assessment: Denies Alcohol Use Substance Abuse 07/26/2024 Risk Assessment: Denies Substance Abuse Tobacco 07/26/2024 Risk Assessment: High Risk 07/26/2024 Tobacco Use: 4 or less cigarettes(less . Physical Examination Airway: Mallampati classification: II (soft palate, fauces, uvula visible). Distance: Teeth are in poor condition with many needing cheondoism. Patient educated on risk of further damage and does wish to proceed given those risk.. Respiratory: adequate air exchange. Cardiovascular: Regular rhythm. Plan [place] [employer] Anesthesiologists (ASA) physical status classification: Class III. Anesthetic Preoperative Plan: Anesthesia General. [facility] Comment on above: Result Comment: Elec tronically Signed By: Rodrick Guaman Jr, DO\.br\Date and Time Signed: 08/01/24 12:39 EST 08-01-2024 Note Progress Note-Physic libby Patient: DEVON MATHEW Age: 44 years Sex: Male : 1980 Associated Diagnoses: None Author: Rodrick Guaman Jr, DO Postoperative Information Postoperative disposition: Postoperative disposition: To PACU. Optimetrix number: Optimetrix number [id number]. Anesthetic utilized: General. Health Status Allergies: Allergic Reactions (Selected) No Known Medication Allergies Physical Examination Vital Signs 07/30/2024 12:51 EST Temperature Temporal Artery 36.8 DegC Peripheral Pulse Rate 88 bpm Respiratory Rate 18 br/min Systolic Blood Pressure 126 mmHg Diastolic Blood Pressure 79 mmHg Blood Pressure Location Right arm SpO2 92 % 07/30/2024 12:40 EST Temperature Temporal Artery 36.9 DegC Heart Rate Monitored 89 bpm Respiratory Rate Monitored 14 br/min Systolic Blood Pressure 126 mmHg Diastolic Blood Pressure 74 mmHg Mean Arterial Pressure, Cuff 91 mmHg SpO2 94 % Pain Assessment: Controlled. General: Awake, Alert, Appropriate. Respiratory: Adequate air exchange. Cardiovascular: Stable, Normal peripheral perfusion. Neurological: Normal sensory function, Normal motor function. Assessment Anesthetic outcome No anesthetic complications noted. Adequate pain relief. able to void without difficulty, able to ambulate with assist, tolerating PO intake, no N/V. Review / Management Condition: Stable. Plan Transfer/Discharge: Transfer/Discharge Discharge when meets criteria ( To home ). [facility] Comment on above: Result Comment: Elec tronically Signed By: Rodrick Guaman Jr, DObr\Date and Time Signed: 08/01/24 12:39 EST 07-30-2024 Hospital Discharge instructions Patient Education 07/30/2024 12:00:59 Laparoscopic Ventral Hernia Repair, Care After Laparoscopic Ventral Hernia Repair, Care After The following information offers guidance on how to care for yourself after your procedure. Your health care provider may also give you more specific instructions. If you have problems or questions, contact your health care provider. What can I expect after the procedure? After the procedure, it is common to have pain, discomfort, or soreness. Follow these instructions at home: Medicines Take dqip-soq-cgwtudh and prescription medicines only as told by your health care provider. Ask your health care provider if the medicine prescribed to you: ?Requires you to avoid driving or using machinery. ?Can cause constipation. You may need to take these actions to prevent or treat constipation: ?Drink enough fluid to keep your urine pale yellow. ?Take xflb-kqm-lvitbrw or prescription medicines. ?Eat foods that are high in fiber, such as beans, whole grains, and fresh fruits and vegetables. ?Limit foods that are high in fat and processed sugars, such as fried or sweet foods. Incision care Follow instructions from your health care provider about how to take care of your incisions. Make sure you: ?Wash your hands with soap and water for at least 20 seconds before and after you change your bandage (dressing) or before you touch your abdomen. If soap and water are not available, use hand hang gliding instructor. ?Change your dressing as told by your health care provider. ?Leave stitches (sutures), skin glue, or adhesive strips in place. These skin closures may need to stay in place for 2 weeks or longer. If adhesive strip edges start to loosen and curl up, you may trim the loose edges. Do not remove adhesive strips completely unless your health care provider tells you to do that. Check your incision areas every day for signs of infection. Check for: ?More redness, swelling, or pain. ?Fluid or blood. ?Warmth. ?Pus or a bad smell. Bathing Do not take baths, swim, or use a hot tub until your health care provider approves. Ask your health care provider if you may take showers. You may only be allowed to take sponge baths. Keep your dressing dry until your health care provider says it can be removed. Activity Rest as told by your health care provider. Avoid sitting for a long time without moving. Get up to take short walks every 1 2 hours. This is important to improve blood flow and breathing. Ask for help if you feel weak or unsteady. Do not lift anything that is heavier than 10 lb (4.5 kg), or the limit that you are told, until your health care provider says that it is safe. If you were given a sedative during the procedure, it can affect you for several hours. Do not drive or operate machinery until your health care provider says that it is safe. Return to your normal activities as told by your health care provider. Ask your health care provider what activities are safe for you. General instructions Hold a pillow over your abdomen when you cough or sneeze. This helps with pain. Do not use any products that contain nicotine or tobacco. These products include cigarettes, chewing tobacco, and vaping devices, such as e-cigarettes. These can delay healing after surgery. If you need help quitting, ask your health care provider. You may be asked to continue to do deep breathing exercises at home. This will help to prevent a lung infection. Keep all follow-up visits. This is important. Contact a health care provider if: You have any of these signs of infection: ?More redness, swelling, or pain around an incision. ?Fluid or blood coming from an incision. ?Warmth coming from an incision. ?Pus or a bad smell coming from an incision. ?A fever or chills. You have pain that gets worse or does not get better with medicine. You have nausea or vomiting. You have a cough. You have shortness of breath. You have not had a bowel movement in 3 days. You are not able to urinate. Get help right away if you have: Severe pain in your abdomen. Persistent nausea and vomiting. Redness, warmth, or pain in your leg. Chest pain. Trouble breathing. These symptoms may represent a serious problem that is an emergency. Do not wait to see if the symptoms will go away. Get medical help right away. Call your local emergency services (911 in the [place] Do not drive yourself to the hospital. Summary After this procedure, it is common to have pain, discomfort, or soreness. Follow instructions from your health care provider about how to take care of your incision. Check your incision area every day for signs of infection. Report any signs of infection to your health care provider. Keep all follow-up visits. This is important. This information is not intended to replace advice given to you by your health care provider. Make sure you discuss any questions you have with your health care provider. Document Revised: 03/12/2021 Document Reviewed: 03/12/2021 [employer] Patient Education 2023 [email or web address] 07/30/2024 11:43:31 Post Op Patient Instructions - FT (CUSTOM) Follow Up Care 07/26/2024 09:07:07 With:Tan Shannon Address: [address], [address] [phone]- [phone] Business (1) When: Unknown Comments:Appointment has already been scheduled [facility] 07-30-2024 Note H&P Update History and Physical Update H&P Reviewed. Patient seen and examined, appropriate for planned surgery, robotic incisional and robotic umbilical hernia repair Problem List/Past Medical History Ongoing Acute exacerbation of chronic obstructive airways disease (COPD) BMI 38.0-38.9,adult HTN (hypertension) Incisional hernia Obesity due to excess calories Pulmonary emphysema Smoker Tobacco use Type II diabetes mellitus uncontrolled Historical COPD - Chronic obstructive pulmonary disease Diabetes mellitus type 1 Hypertension Procedure/Surgical History Cholecystectomy (08/07/2018), Appendectomy with drainage, Blood glucose monitoring equipment, Laparoscopic cholecystostomy, Spinal fusion. Medications albuterol 0.083% Inh Fatimah 3 mL amLODIPine 10 mg Tab, 10 mg= 1 tab(s), Oral, Daily aspirin 81 mg Oral EC Tab, 81 mg= 1 tab(s), Oral, Daily HumaLOG KwikPen 100 units/mL injectable solution, See Instructions hydrochlorothiazide-losartan 12.5 mg-100 mg oral tablet, 1 tab(s), Oral, Daily HYDROmorphone 1 mg/mL injectable solution, 0.4 mg= 0.4 mL, IV Push, q4min, PRN Lactated Ringers IV Fatimah 1000 mL 1,000 mL, 1000 mL, IV Lantus Solostar Pen 100 units/mL subcutaneous solution, 25 unit(s), SubCutaneous, Daily Lipitor 40 mg Tab, 40 mg= 1 tab(s), Oral, Bedtime, 1 refills metformin 500 mg Tab, 500 mg= 1 tab(s), Oral, BID Metoprolol tartrate 50 mg Tab, 50 mg= 1 tab(s), Oral, BID nicotine 21 mg/24 hr Transderm ER Film, 1 patch(es), TransDermal, Daily NIFEdipine 90 mg ER Tab, 90 mg= 1 tab(s), Oral, Daily Farwell 325 mg-5 mg oral tablet, 1 tab(s), Oral, q6hr, PRN promethazine additive 12.5 mg + Sodium Chloride 0.9% IV Fatimah 50 mL (INT) 50 mL Sodium Chloride 0.9% IV Fatimah 1000 mL 1,000 mL, 1000 mL, IV Allergies No Known Medication Allergies Social History Alcohol - Denies Alcohol Use, 04/04/2024 Never., 07/25/2024 Substance Abuse - Denies Substance Abuse, 10/21/2023 Never., 07/25/2024 Tobacco - High Risk, 10/21/2023 4 or less cigarettes(less than 1/4 pack)/day in last 30 days Tobacco Use:., 07/26/2024 [facility] 07-30-2024 Note Patient Education - Text Gastroenterology Laparoscopic Ventral Hernia Repair, Care After The following information offers guidance on how to care for yourself after your procedure. Your health care provider may also give you more specific instructions. If you have problems or questions, contact your health care provider. What can I expect after the procedure? After the procedure, it is common to have pain, discomfort, or soreness. Follow these instructions at home: Medicines ??? Take znhl-uix-zvwfiih and prescription medicines only as told by your health care provider. ??? Ask your health care provider if the medicine prescribed to you: ? Requires you to avoid driving or using machinery. ? Can cause constipation. You may need to take these actions to prevent or treat constipation: ? Drink enough fluid to keep your urine pale yellow. ? Take kiri-yuv-bjvaksp or prescription medicines. ? Eat foods that are high in fiber, such as beans, whole grains, and fresh fruits and vegetables. ? Limit foods that are high in fat and processed sugars, such as fried or sweet foods. Incision care ??? Follow instructions from your health care provider about how to take care of your incisions. Make sure you: ? Wash your hands with soap and water for at least 20 seconds before and after you change your bandage (dressing) or before you touch your abdomen. If soap and water are not available, use hand hang gliding instructor. ? Change your dressing as told by your health care provider. ? Leave stitches (sutures), skin glue, or adhesive strips in place. These skin closures may need to stay in place for 2 weeks or longer. If adhesive strip edges start to loosen and curl up, you may trim the loose edges. Do not remove adhesive strips completely unless your health care provider tells you to do that. ??? Check your incision areas every day for signs of infection. Check for: ? More redness, swelling, or pain. ? Fluid or blood. ? Warmth. ? Pus or a bad smell. Bathing ??? Do not take baths, swim, or use a hot tub until your health care provider approves. Ask your health care provider if you may take showers. You may only be allowed to take sponge baths. ??? Keep your dressing dry until your health care provider says it can be removed. Activity ??? Rest as told by your health care provider. ??? Avoid sitting for a long time without moving. Get up to take short walks every 1?2 hours. This is important to improve blood flow and breathing. Ask for help if you feel weak or unsteady. ??? Do not lift anything that is heavier than 10 lb (4.5 kg), or the limit that you are told, until your health care provider says that it is safe. ??? If you were given a sedative during the procedure, it can affect you for several hours. Do not drive or operate machinery until your health care provider says that it is safe. ??? Return to your normal activities as told by your health care provider. Ask your health care provider what activities are safe for you. General instructions ??? Hold a pillow over your abdomen when you cough or sneeze. This helps with pain. ??? Do not use any products that contain nicotine or tobacco. These products include cigarettes, chewing tobacco, and vaping devices, such as e-cigarettes. These can delay healing after surgery. If you need help quitting, ask your health care provider. ??? You may be asked to continue to do deep breathing exercises at home. This will help to prevent a lung infection. ??? Keep all follow-up visits. This is important. Contact a health care provider if: ??? You have any of these signs of infection: ? More redness, swelling, or pain around an incision. ? Fluid or blood coming from an incision. ? Warmth coming from an incision. ? Pus or a bad smell coming from an incision. ? A fever or chills. ??? You have pain that gets worse or does not get better with medicine. ??? You have nausea or vomiting. ??? You have a cough. ??? You have shortness of breath. ??? You have not had a bowel movement in 3 days. ??? You are not able to urinate. Get help right away if you have: ??? Severe pain in your abdomen. ??? Persistent nausea and vomiting. ??? Redness, warmth, or pain in your leg. ??? Chest pain. ??? Trouble breathing. These symptoms may represent a serious problem that is an emergency. Do not wait to see if the symptoms will go away. Get medical help right away. Call your local emergency services (911 in the [place] Do not drive yourself to the hospital. Summary ??? After this procedure, it is common to have pain, discomfort, or soreness. ??? Follow instructions from your health care provider about how to take care of your incision. ??? Check your incision area every day for signs of (more content not included)... [facility] 07-17-2024 Note ED Patient Education Note Gastroenterology Hernia, Adult A hernia is the bulging of an organ or tissue through a weak spot in the muscles of the abdomen. Hernias develop most often near the belly button (navel) or the area where the leg meets the lower abdomen (groin). Common types of hernias include: ??? Incisional hernia. This type bulges through a scar from an abdominal surgery. ??? Umbilical hernia. This type develops near the navel. ??? Inguinal hernia. This type develops in the groin or scrotum. ??? Femoral hernia. This type develops below the groin, in the upper thigh area. ??? Hiatal hernia. This type occurs when part of the stomach slides above the muscle that separates the abdomen from the chest (diaphragm). What are the causes? This condition may be caused by: ??? Heavy lifting. ??? Coughing over a long period of time. ??? Straining to have a bowel movement. Constipation can lead to straining. ??? An incision made during abdominal surgery. ??? A physical problem that is present at (congenital defect). ??? Being overweight or obese. ??? Smoking. ??? Excess fluid in the abdomen. ??? Undescended testicles in males. What are the signs or symptoms? The main symptom is a skin-colored, rounded bulge in the area of the hernia. However, a bulge may not always be present. It may grow bigger or be more visible when you cough or strain (such as when lifting something heavy). A hernia that can be pushed back into the abdomen (is reducible) rarely causes pain. A hernia that cannot be pushed back into the abdomen (is incarcerated) may lose its blood supply (become strangulated). A hernia that is incarcerated may cause: ??? Pain. ??? Fever. ??? Nausea and vomiting. ??? Swelling. ??? Constipation. How is this diagnosed? A hernia may be diagnosed based on: ??? Your symptoms and medical history. ??? A physical exam. Your health care provider may ask you to cough or move in certain ways to see if the hernia becomes visible. ??? Imaging tests, such as: ? X-rays. ? Ultrasound. ? CT scan. How is this treated? A hernia that is small and painless may not need to be treated. A hernia that is large or painful may be treated with surgery. Inguinal hernias may be treated with surgery to prevent incarceration or strangulation. Strangulated hernias are always treated with surgery because the strangulation causes a lack of blood supply to the trapped organ or tissue. Surgery to treat a hernia involves pushing the bulge back into place and repairing the weak area of the muscle or abdominal wall. Follow these instructions at home: Activity ??? Avoid straining. ??? Do not lift anything that is heavier than 10 lb (4.5 kg), or the limit that you are told, until your health care provider says that it is safe. ??? When lifting heavy objects, lift with your leg muscles, not your back muscles. Preventing constipation Take actions to prevent constipation. Constipation leads to straining with bowel movements, which can make a hernia worse or cause a hernia repair to break down. Your health care provider may recommend that you take these actions to prevent or treat constipation: ??? Drink enough fluid to keep your urine pale yellow. ??? Take dxhy-tov-kkaxgxw or prescription medicines. ??? Eat foods that are high in fiber, such as beans, whole grains, and fresh fruits and vegetables. ??? Limit foods that are high in fat and processed sugars, such as fried or sweet foods. General instructions ??? When coughing, try to cough gently. ??? You may try to push the hernia back in place by very gently pressing on it while lying down. Do not try to force the bulge back in if it will not push in easily. ??? If you are overweight, work with your health care provider to lose weight safely. ??? Do not use any products that contain nicotine or tobacco. These products include cigarettes, chewing tobacco, and vaping devices, such as e-cigarettes. If you need help quitting, ask your health care provider. ??? If you are scheduled for hernia repair, watch your hernia for any changes in shape, size, or color. Tell your health care provider about any changes or new symptoms. ??? Take kqey-uxe-fzsqqkn and prescription medicines only as told by your health care provider. ??? Keep all follow-up visits. This is important. Contact a health care provider if: ??? You develop new pain, swelling, or redness around your hernia. ??? You have signs of constipation, such as: ? Fewer bowel movements in a week than normal. ? Difficulty having a bowel movement. ? Stools that are dry, hard, or larger than normal. Get help right away if: ??? You have a fever or chills. ??? You have abdominal pain that gets worse. ??? You feel nauseous or you vomit. ??? You cannot push the hernia back in place by very gently pressing on it while lying down. Do not try to force the (more content not included)... [facility] 04-09-2024 Hospital Discharge instructions Patient Education 04/09/2024 15:53:35 Cervical Radiculopathy, Gyom-lr-Msqt Cervical Radiculopathy Cervical radiculopathy means that a [...] any, tell your doctor. Managing pain Take amtl-gce-iyebgku and prescription medicines only as told by [...] provider. Document Revised: 01/27/2022 Document Reviewed: 01/27/2022 [employer] Patient Education 2023 [employer]. Follow Up Care 04/09/2024 12:51:33 With:Anuradha De La Vega Address: [address] [place], [place] [address]Swapnil Schneider , [address] [address] Business (1) When:04/12/2024 15:53:06 Comments:Call to schedule a follow-up appointment with the family physician for further management of care. Use the Percocet as needed for pain management. Take the prednisone as prescribed. Return to the ED with any worsening symptoms. [facility] 04-09-2024 Note ED Patient Education Note Orthopedics [...] tell your doctor. Managing pain ? Take wwrc-sad-hsvnidy and prescription medicines only as told by [...] may include resti (more content not included)... [facility] 04-04-2024 Hospital Discharge instructions Patient Education 04/04/2024 14:43:01 Radial Nerve [...] sitting or lying down. General instructions Take zdci-gqm-pnlytkc and prescription medicines only as told by [...] provider. Document Revised: 03/29/2023 Document Reviewed: 03/29/2023 [employer] Patient Education 2023 [employer] 04/04/2024 14:43:01 Ganglion Cyst Ganglion Cyst A [...] with a needle, or hit it. Take rjff-lkv-kskwxrc and prescription medicines only as told by [...] provider. Document Revised: 10/14/2020 Document Reviewed: 10/14/2020 [employer] Patient Education 2023 [employer]. Follow Up Care 04/04/2024 12:19:08 With:Peter Gastelum Address: [facility] [place] [place] [address] Business (1) When:04/07/2024 14:28:50 [facility] 04-04-2024 Note ED Patient Education Note Radial [...] or lying down. General instructions ? Take txmp-srp-zwuvryx and prescription medicines only as told by your provider. ? Follow instructions about how to protect your hand and wrist. ? Protect your hand fro (more content not included)... [facility] 04-04-2024 Evaluation + Plan note Extrac caitlyn from: Title:ED Note Author:Nury RUSHING, Reza Simental te:04/04/24 Ganglion cyst of wrist (M67. 439: Ganglion, unspecified wrist) Orders: methocarbamol, 1,500 mg = 2 tab(s), Oral, TID, X 3 day(s), # 18 tab(s), Refills(s) 0, Pharmacy: [facility]/pharmacy #[id number], 177.1, cm, 04/04/24 12:32:00 EDT, Height/Length Dosing, 124.7, kg, 04/04/24 12:32:00 EDT, Weight Dosing naproxen, 500 mg = 1 tab(s), Oral, BID, PRN for pain, # 20 tab(s), Refills(s) 0, Pharmacy: [facility]/pharmacy #[id number], 177.1, cm, 04/04/24 12:32:00 EDT, Height/Length Dosing, 124.7, kg, 04/04/24 12:32:00 EDT, Weight Dosing Splint Application Wrist [facility] 05-17-2024 Miscellaneous Notes* Telephone Encounter - Amrita Montgomery - 12/22/2023 10:37 AM EDT 12/20 received COMP order 12/21 Called PT LM to schedule sleep study. COMP order and 12/20 Chad notes in [facility] Telephone encounter Note* Telephone Encounter - Amrita Montgomery - 12/22/2023 10:37 AM EDT 12/20 received COMP order 12/21 Called PT LM to schedule sleep study. COMP order and 12/20 Chad notes in [facility] History of Present illness Narrative* Eli Bonilla, DO - 12/21/2023 2:00 PM EDT Images from the original note were not included. [facility] Pulmonary And Sleep Consult Patient - Devon Mathew Age - 43 y.o. - 1980 Referring physician: Amol Hernandez CNP Reason for Consultation: Shortness of breath HPI: Devon Mathew is a 43 y.o. male with newly diagnosed hypertension as well as diabetes who presents for evaluation of shortness of breath. Patient was recently hospitalized and had these new diagnoses made. He has been having issues with shortness of breath for the past several years. It hasbeen getting worse. 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 Has a difficulttime any time he gets overheated or is in a hot or humid environment with causing worsening shortness of breath. He gets chest heaviness and feels as though he can not catch his breath. He does coughall night long every night. He does have intermittent wheezing. He does have albuterol aerosols which he uses which provide some relief of his symptoms for a short while but then symptoms resume. He has had some pneumonias several times that he has been diagnosed with. He denies any childhood asthma. No known environmental allergies. He denies any symptoms of seasonal allergies. He is an active smoker and has smoked since the age of 14. Throughout most of his smoking he has been at 2 packs per day. He has been actively working on quitting since his recent hospitalization in his down to 3-4 cigarettes per day. He has had previous CT angiogram during what appears to be an ER visit with [employer] in 2018. Image reports is available and system but I am not able to personally review this data. It does comment on diagnosis of bilateral emphysema as well as presence of a right upper lobe 6.4mm pulmonary nodule. There was no other CT scans afterwards for follow-up. Most recent chest x-ray does not reveal any lung masses. He does have positive family history of pulmonary disease with his m other having multiple respiratory issues and being inhalers. He does not know her exact diagnosis. She also has a diagnosis of sleep apnea. He is concerned that he has sleep apnea. During previous hospitalization 15 years ago with back surgery he was told during the inpatient stay that he stopped breathing and dropped his oxygen levels. His has also noticed ongoing abnormal breathing with sleep where he stops breathing and once hestops breathing again it has with a large gasps. He snores very loudly. He has great difficulty initiating sleep and has done so for years. Was previously treated with Xanax in the evening to help initiate sleep but he denies any anxiety issues. He has no longer taking this and has been off of it for several years. ASSESSMENT Mild COPD with radiographic emphysema RUL 6.4mm nodule seen in 2018, no repeat imaging Tobacco use >40 pack years. Trying to quit Snoring with disrupted sleep and observed apnea concerning for BLANCA Nocturnal cough Recurrent bronchitis HTN DM2, newly dx PLAN I have personally reviewed the patient's most recent chest imaging and interpreted it independently. These findings were discussed with the patient. Discussed previously seen pulmonary nodule. That, with previous findings of emphysema and respiratory symptoms warrants CT chest for follow up evaluation. Order placed. Recent pertinent labs and PFT data reviewed. Will check alpha 1, respirator allergen panel, eosinophil count and immunoglobulins Start maintenance inhaler therapy with Trelegy 200 for now. Samples given. He will call office if cost prohibitive for alternative. Education was provided regarding the patient's inhaler regimen and proper use reviewed. Understanding was demonstrated. Discussed concerns for BLANCA. Patient warrants in lab sleep study. He is agreeable to testing All questions answered. Will see back in clinic in 4 months or earlier if needed. The patient was encouraged to call me with any concerns prior. Thank you for allowing me to participate in your patient's care. History reviewed. No pertinent past medical history. Past Surgical History: Procedure Laterality Date APPENDECTOMY LUMBAR FUSION 2006 Tramadol Prior to Admission medications Medication Sig Start Date End Date Taking? Authorizing Provider ALPRAZolam (XANAX) 0.5 mg tablet 12/11/17 Not In System Ref Prov amLODIPine (NORVASC) 10 mg tablet Take 10 mg by mouth. Not In System Ref Prov ibuprofen (ADVIL,MOTRIN) 600 mg tablet Take 600 mg by mouth. 07/19/13 Not In System Ref Prov metoprolol tartrate (LOPRESSOR) 50 mg tablet Take 50 mg by mouth. Not In System Ref Prov spironolactone (ALDACTONE) 25 mg tablet Take 25 mg by mouth. 01/29/15 Not In System Ref Prov reports that he has been smoking cigarettes. He started smoking about 30 years ago. He has a 60.2 pack-year smoking history. He has never used smokeless tobacco. He reports that he does not drink alcohol and does not use drugs. History reviewed. No pertinent family history. Review of Systems: All 11 systems have been reviewed and are negative except as mentioned in History of Present Illness. Exam: General: Alert, oriented, no acute distress, nontoxic, mallampati III HEENT: Moist mucosal membranes, no oral lesions or oral thrush, trachea midline Chest: Clear to auscultation bilaterally without any crackles, wheezes, rhonchi. Normal AP diameter. CV: Regular rate regular rhythm Abdomen: Soft, nontender, no guard Extremities: No edema, erythema, distal cyanosis, clubbing Integumentary: Warm and dry. No rash or lesion Neuro: Cranial nerves 2-11 grossly intact. No lateralizing deficits. VITALS BP 147/90 Pulse 76 Ht 177.8 cm (5' 10 ) Wt 113.3 kg (249 lb 12.8 oz) SpO2 95% BMI 35.84 kg/m PFT Results: Radiology CXR 10/30/23 Narrative & Impression PA and lateral chest: HISTORY: Shortness of breath and cough. 2 views of the chest are obtained. Cardiac and mediastinal contours are within normal limits. Clear. There is no vascular congestion or effusion. Osseous structures appear intact. IMPRESSION: No acute findings. Dr. Eli Bonilla DO. [facility] Pulmonary & Critical Care Office: [phone] documented in this encounterMercy Hospital03-24-2024 NoteMicrobiology PROCEDURE: Blood Culture Charcoal [R1] SOURCE: [...] Locations R1: This [facility] performed at: [facility], [address] [place] [address], [address] [place] [address], GhvnopMansfield HospitalComment on above:Performed By: #### [id number] ####[facility] [address] [place], [place] [id number] NoteMicrobiology PROCEDURE: Blood Culture Charcoal [R1] SOURCE: [...] Locations R1: This test was performed at: [facility], [address] [place] [address], [address] [place] [address], BfafxoM[facility]field HospitalComment on above:Performed By: #### [id number] #### [facility] [address] [place], [place] [id number] NoteEchocardiology Procedure Exam Date/Time Accession # Ordering Echo Transthoracic w/ 10/23/2023 09:26 EDT [id number] Houston PAN MD Contrast CPT code 62274 [id number] Reason for Exam (Echo Transthoracic w/ Contrast) Hypertension Report [facility] [address] [place] [address] Adult Echocardiogram Report Name: DEVON MATHEW Study Date: 10/23/2023 07:07 AM BP: 135/84 mmHg Patient Location: ^S335^01^[facility] HR: 86 : 1980 Gender: Male Height: 70 in Age: 43 yrs Ethnicity: T Weight: 248 lb Reason For Study: Hypertension BSA: 2.3 m2 History: HTN, DM, Smoker Ordering Physician: Houston PAN Referring Physician: Jesus Carias Performed By: Avis Kuo RDCS Interpretation Summary No comparison study is available. [...] Houston PAN MD Transcribed by: DOMENICO Technologist: [facility]03-18-2024 Evaluation + Plan noteExtracted from: [...] Oral, Daily With When Contact Information MENDY MORENOGH [address], [address] [place] [address]- Business (1) Additional Instructions: HATTIE SHANE In 0 days [address] [place] [id number] Business (1) Additional Instructions: Obesity, Adult Managing Your Hypertension Discharge time >30 min Extracted from: Title:Progress/SOAP Note Author:Tam PAN MD Date:10/23/23 1. Elevated troponin (R79.89 : Other [...] deep vein thrombosis (DVT) prophylaxis (Z79.899: Other halfway (current) drug therapy) Elevated blood pressure reading [...] lipid profile and start Lipitor appropriately. Ordered: [facility] Care/Day Moderate 35 Minutes 44321 2. Cough (R05.9: Cough, unspecified) Supportive care. Continue on Tessalon Perles as needed and nebulizer treatments. Ordered: [facility] Care/Day Moderate 35 Minutes 84121 3. Abscess (L02.91: Cutaneous abscess, unspecified) Left axilla and left scapula nondraining abscess. Start patient on doxycycline. Ordered: [facility] Care/Day Moderate 35 Minutes 14533 White Blood Count 4. Leukocytosis (D72.829: Elevated white blood cell count, unspecified) Secondary to above abscess. WBC trending down. Ordered: [facility] Care/Day Moderate 35 Minutes 76999 White Blood Count 5. Hyperglycemia (R73.9: Hyperglycemia, unspecified) Secondary to new onset diabetes mellitus. Started patient on sliding scale insulin. Hemoglobin A1c pending. Ordered: [facility] Care/Day Moderate 35 Minutes [id number] 6. Hyponatremia (E87.1: Hypo-osmolality and hyponatremia) Secondary [...] uncontrolled. Continue on metoprolol, nifedipine. Seen by chairman & co founder and hydrochlorothiazide and losartan were added. 9. Obese (E66.9: Obesity, unspecified) Recommend therapeutic lifestyle modification changes. 10. Tobacco use (Z72.0: Tobacco use) Recommend cessation. Continue nicotine patch. 11. On deep vein thrombosis (DVT) prophylaxis (Z79.899: Other halfway (current) drug therapy) Lovenox. Disposition: Hopefully home in a.m. pending echocardiogram result May require stress test or cardiac cath. I discussed the diagnosis and plan of care with the patient at the bedside. Moderate level of MDM based on addressing above issues. This documentation was transcribed using voice recognition software. Several attempts were made to ensure accuracy. However inadvertent computerized photography intern errors may be present. Delia Ortiz. Hospitalist. [...] deep vein thrombosis (DVT) prophylaxis (Z79.899: Other halfway (current) drug therapy) 9. Hyponatremia (E87.1: Hypo-osmolality [...] deep vein thrombosis (DVT) prophylaxis (Z79.899: Other halfway (current) drug therapy) SCD, enoxaparin Orders: acetaminophen, [...] due to above Extracted from: Title:ED Note Author:Sean Thomas DO Date :10/21/23 Abscess (L02.91: Cutaneous a bscess, [...] Therapy PT & PTT Rapid COVID Antigen ([facility]) Saline Lock Insert Troponin XR Chest Single View [facility]03-18-2024 NoteAdmission and Discharge Information Admit Date/Time:10/21/2023 20:55 [...] uncontrolled. Continue on metoprolol, nifedipine. Seen by chairman & co founder and hydrochlorothiazide and losartan were added. Will discharge on losartan 100 mg and hydrochlorothiazide 12.5 daily/continue nifedipine 9. Obese (E66.9: Obesity, unspecified) Recommend therapeutic lifestyle modification changes. 10. Tobacco use (Z72.0: Tobacco use) Recommend cessation. Continue nicotine patch. 11. On deep vein thrombosis (DVT) prophylaxis (Z79.899: Other intermediate accountant (current) drug therapy) Lovenox. Services Consulted Consult [...] Discharge Diet(s): Low Sodi (more content not included)...[facility] HospitalComment on above:Result Comment: Electronically Signed By: BEAR POWELL, Daron\.br\Date and Time Signed: 10/23/23 12:[id number] Hospital Discharge instructions Patient Education 10/23/2023 10:52:08 [...] ?Hypothyroidism. ?Polycystic ovarian syndrome (PCOS). ?Binge-eating disorder. ?[place] syndrome. Taking certain medicines, such as steroids, [...] food choices, such as grocery stores and [employer]. What are the signs or symptoms? The [...] and how much exercise you get. Take smcd-kxq-pjboirw and prescription medicines only as told by [...] provider. Document Revised: 03/01/2022 Document Reviewed: 03/01/2022 [employer] Patient Education 2022 [employer] 10/23/2023 10:52:05 Managing Your Hypertension Managing Your [...] more information National Heart, Lung, and Blood [place]: www.nhlbi.nih.gov [place] [employer]: www.heart.org Contact a health care [...] provider. Document Revised: 04/07/2022 Document Reviewed: 04/07/2022 [employer] Patient Education 2022 [employer]. Follow Up Care 10/21/2023 18:37:57 With:HATTIE SHANE Address: [address] [place] [address] When: Unknown With:MENDY MORENOGH Address: [address], [address] [place] [address]- Business (1) When: Unknown [facility]03-16-2024 NoteBasic Information Admit Date/Time:10/21/2023 20:55 Chief Complaint [...] Patient states that he initially went to [facility] emergency department about 2 weeks ago [...] 34.3 gm/dL (10/21/23 19:32:00) RDW: 13.7 % (10/21/23 19:32:00) Platelet: 251 E9/L (10/21/23 19:32:00) MPV: 9.5 fL (10/21/23 19:32:00) Neutro Auto: 68.7 % (10/21/23 19:32:00) Lymph Auto: 25.2 % (10/21/23 19:32:00) [place] Auto: 5.2 % (10/21/23 19:32:00) Eos Auto: 0.7 % (10/21/23:32:00) Basophil Auto: 0.2 % (10/21/23 19:32:00) Neutro Absolute: 10.9 E9/L High (10/21/23:32:00) Lymph Absolute: 4 E9/L (10/21/23:32:00) [place] Absolute: 0.8 E9/L (10/21/23:32:00) Eos Absolute: 0.1 E9/L (10/21/23:32:00) Basophil Absolute: 0 E9/L (10/21/23:32:00) PT: 11.4 second(s) (10/21/23 19:10:00) INR: 1.02 (10/21/23 19:10:00) PTT: 29.4 second(s) (10/21/23 19:10:00) Glucose Lvl: 417 mg/dL High (10/21/23 19:32:00) BUN: 17 mg/dL (10/21/23 19:32:00) Creatinine: 0.9 mg/dL (10/21/23:32:00) eGFR: 109 mL/min/1.73 m2 (10/21/23:32:00) BUN/Creat Ratio: 19 (10/21/23 19:32:00) Sodium Lvl: 128 mmol/L Low (10/21/23 19:32:00) Potassium Lvl: 3.8 mmol/L (10/21/23 19:32:00) Chloride: 97 mmol/L Low (10/21/23:32:00) CO2: 22 mmol/L (10/21/23:32:00) AGAP: 13 mEq/L (10/21/23:32:00) Calcium Lvl: 9 mg/dL (10/21/23 19:32:00) Alk Phos: 75 Int._Unit/L (10/21/23 19:32:00) ALT: 25 Int._Unit/L (10/21/23 19:32:00) AST: 15 Int._Unit/L (10/21/23 19:32:00) Total Protein: 6.6 gm/dL (10/21/23 19:32:00) Albumin Lvl: 4 gm/dL (10/21/23 19:32:00) Globulin: 2.6 gm/dL (10/21/23 19:32:00) A/G Ratio: 1.5 (10/21/23 19:32:00) Bili Total: 0.5 mg/dL (10/21/23 19:32:00) Lactic Acid Lvl: 1.4 mmol/L (10/21/23 19:32:00) Troponin: 46.8 pg/mL High (10/21/23 19:32:00) BNP: 8 pg/mL (10/21/23 19:10:00) Procalcitonin: 0.06 ng/mL (10/21/23 19:32:00) (more content not included)... [facility]:Result Comment: Electronically Signed By: Vickie [...] Care Everywhere. * URI (Upper Respiratory Infection) (Macedonian) documented in this [facility] Work Phone: evaluation + Plan note Future Appointments Appointment Date:07/30/2024 12:00:00 PM Scheduled Provider: Location:[facility] Appointment Type:Surgery FT [facility] General Surgery [facility] Evaluation note* Diagnosis Acute upper respiratory infection- Primary Acute upper respiratory infections of unspecified site [facility] [employer] Phone: evaluation note* Diagnosis Cough- Primary Shortness of breath Essential hypertension Unspecified essential hypertension documented [facility] [employer] [employer] Phone: evaluwlwtd note* Diagnosis BLANCA (obstructive sleep apnea)- Primary Obstructive sleep apnea (adult) (pediatric) SOB (shortness of breath) Shortness of breath Chronic cough Cough Centrilobular emphysema (CMS-HCC) Pulmonary nodule Other diseases of lung, not elsewhere classified [facility] No data available for this section [facility]* Instructions* Micheal Kwok MD - 06/09/2021 Please continue with your inhalers as advised and prescribed May continue with the Tessalon Perles also as previously prescribed Please have your blood pressure rechecked by your physician at your next office visit * Attachments The following attachments cannot be sent through Care Everywhere. * SOB (Shortness of Breath) (Macedonian) * Cough (Macedonian) * Hypertension: General Info (Macedonian) [facility]: Hospital Discharge instructions No data available for this section [facility] General Surgery [facility] InstructionsNot on filedocumented in this encounter [facility] SystemInstructionsNot on filedocumented in this encounter [facility] System[facility] note No data available for this section [facility] Discharge Instructions * Discharge Instr - Activity* [...] most local grocery stores, pharmacies, and chain [employer]-stores. ? If you have any questions about [...] be sent through Care Everywhere. * Dyspepsia (Macedonian) * ERCP (Endoscopic Retrograde Cholangiopancreatogram ): Pre-op (Macedonian) documented in this encounter* Attachments The following attachments cannot be sent through Care Everywhere. * Cholecystectomy: Post-op (Macedonian) * Hypertension (Macedonian) * Post-op Infection (Macedonian) documented in this encounter History of Present Illness * Maria Antonia Galvez RN - 06/07/2019 3:00 PM EDT Senior Ui Web Developer reviewed discharge instructions with patient and girlfriend. Both verbalized understanding. Denies questions. Copy of discharge instructions given to patient. * Miah Ordoñez MSW, KORINA - 06/07/2019 10:44 AM EDT Social Work intial Assessment/Discharge Plan Diagnosis: Cholecystitis, acute with cholelithiasis Met with: Patient, Mother and other family & friends. PCP: Rodrick Galdamez DO Payment Source: [facility] [place] Advance Directives: None Code Status: Full Mental [...] Plan: No needs. Will return home in [place]. * Amina Borjas, MILDRED, LD - 06/07/2019 10:23 AM EDT Nutrition [...] Fluid Accumulation-No significant fluid accumulation, Extremities 6. Criminalist Technician Strength-Not measured Recent Labs 06/06/19 1850 06/07/19 0545 NA 136 134* K 4.0 4.3 CL 96* 99 CO2 29 22 BUN 9 9 CREATININE 0.62* 0.61* GLUCOSE 165* 88 ALT 268* 289* ALKPHOS 88 90 GFR Lab Results Component Value Date LABALBU 3.9 06/07/2019 Nutrition Risk Level: Moderate Nutrient Needs: Estimated Daily Total Kcal: 0335-3293 Estimated Daily Protein (g): 90-105 Estimated Daily Total Fluid (ml/day): 7033-6796(25-30) Nutrition Diagnosis: Problem: Altered GI function Etiology: [...] , 7.8% weight gain x 9 months [place] Body Wt: 166 lb (75.3 kg), % [place] Body 122% BMI Classification: BMI 25.0 - [...] Ennis DO - 06/13/2019 2:14 PM EST [facility] 06/13/2019 2:14 PM Name: Devon Mathew : 1980 Age: 39 y.o. male Acct: [id number] Room: [address] [place] [address] Day: 6 Hospital: [facility] Admit Date: 06/07/2019 11:54 PM [...] BASOPCT 1 0 0 Chemistry: Recent Labs 06/11/1944006/12/197 06/13/19 0631 NA 140 136 138 K 3.8 [...] INTAKE/OUTPUT: Intake/Output Summary (Last 24 hours) at 06/13/20198 Last data filed at 06/13/2019 0135 Gross [...] GLUCOSE 88 92 164* Hepatic: Recent Labs 06/10/19542 AST 30 ALT 100* ALKPHOS 89 BILITOT 0.87 BILIDIR 0.32* Coagulation: Recent Labs 06/10/19542 PROT 6.0* ASSESSMENT Patient Active Problem List [...] Ennis DO - 06/12/2019 11:05 AM EST [facility] 06/12/2019 11:05 AM Name: Devon Wise Priyanka : 1980 Age: 39 y.o. male Acct: [id number] Room: [facility] [place]/1014-02 IP Day: 5 Hospital: [facility] Admit Date: 06/07/2019 11:54 PM [...] [facility] to [...] 8. Recheck laboratories in the morning * Abhsihek Vanessa MD - 06/12/2019 4:18 AM EST [...] Intake/Output Summary (Last 24 hours) at 06/12/2019 8027 Last data filed at 06/11/2019 1943 Gross [...] GLUCOSE 78 88 92 Hepatic: Recent Labs 06/09/1953806/10/19 0543 AST 31 30 ALT 119* 100* [...] out the timing of his laparoscopic cholecystectomy. * Bree Reid RN - 06/11/2019 6:25 PM EST Pt returned from surgery, vss, update given to fiance and mother, pt will be NPO after midnight, ptcan have clears around 1999, will continue to monitor * Bree Reid RN - 06/11/2019 3:15 PM EST Pt to surgery per bed for ERCP, mother at side * Bree Reid RN - 06/11/2019 2:[address] Ennis messaged about IV and po md azalia wants us to use IV for when pt is NPO * Kameron Ennis DO - 06/11/2019 10:13 AM EST [facility] - Progress Note 06/11/2019 10:14 AM Name: Devon Mathew : 1980 Age: 39 y.o. male Acct: [id number] Room: 1014/1014-02 IP Day: 4 Hospital: [facility] Admit Date: 06/07/2019 11:54 PM [...] INR 1.0 -- -- Chemistry: Recent Labs 06/09/1953806/10/1954206/11/191 NA 136 140 140 K 3.6* 3.8 3.8 CL 101 104 104 CO2 25 24 24 GLUCOSE 78 88 92 BUN 7 5* 5* CREATININE 0.47* 0.46* 0.46* MG 1.8 -- 1.9 ANIONGAP 10 12 12 LABGLOM >60 >60 >60 GFRAA >60 >60 >60 CALCIUM 8.5* 8.5* 8.8 CAION 1.23 -- -- PHOS 2.7 -- -- Recent Labs 06/09/19 0539 06/10/19 0543 06/11/19 0441 PROT 6.0* 6.0* -- LABALBU 3.6 3.5 [...] Resp 18 Ht 5' 10 (1.778 m) Comment:510 Wt 204 lb 8 oz (92.8 kg) SpO2 96% BMI 29.34 kg/m INTAKE/OUTPUT: Intake/Output Summary (Last 24 hours) at 06/11/2019534 Last data filed at 06/11/2019 043 Gross per 24 hour Intake 5630 ml [...] GLUCOSE 78 88 92 Hepatic: Recent Labs 06/09/1939 06/10/19 05 AST 31 30 ALT 119* [...] plans for laparoscopic cholecystectomy * Jewel Asif [facility] - 06/10/2019 3:18 PM EST Transitions of [...] about this encounter. Thank you. Jewel Asif Whit Transitions of Care Pharmacy Service Medications Prior [...] by mouth 2 times daily * Kameron Ennis, - 06/10/2019 12:02 PM EST [facility] - Progress Note 06/10/2019 12:02 PM Name: Devon Mathew : 1980 Age: 39 y.o. male Acct: [id number] Room: [address] [place] [address] Day: 3 Hospital: [facility] Admit Date: 06/07/2019 11:54 PM [...] Status: Full Code Labs: Hematology: Recent Labs 06/07/19174906/09/1953806/10/19542 WBC 15.4* 11.5* 9.1 RBC 5.26 4.46 [...] INR -- 1.0 -- Chemistry: Recent Labs 06/07/19174906/07/19180406/09/1953806/10/19 05 NA 136 -- 136 140 K 3.5* [...] LACTA -- 1.1 -- -- Recent Labs 06/07/19174906/09/1953806/10/19 05 PROT 7.4 6.0* 6.0* LABALBU 4.4 3.6 [...] Potts MD - 06/09/2019 7:36 AM EST [facility] IN-PATIENT SERVICE [facility] Progress Note 06/09/2019 7:37 AM Name: Devon Mathew Acct: [id number] Room: 1014/1014-02 IP Day: 2 Admit Date: 06/07/2019 11:54 PM [...] Net 1459 ml Labs: Hematology: Recent Labs 06/06/19 18506/07/1945 06/07/19 17506/09/19 0539 WBC 14.3* 10.1 15.4* 11.5* RBC 5.47 4.89 5.26 4.46 HGB 17.0 15.0 16.0 13.8 HCT 48.2 44.2 47.2 39.0* MCV 88.1 90.4 89.7 87.4 MCH 31.1 30.7 30.4 30.9 MCHC 35.3* 33.9 33.9 35.4* RDW 12.0 12.4 12.4 12.2 PLT 268 227 258 186 MPV 10.5 10.4 10.6 10.7 INR 1.0 -- -- 1.0 Chemistry: Recent Labs 06/06/19 21206/07/19 0545 06/07/19 17506/07/19 18006/09/19 0539 NA -- 134* 136 -- 136 [...] -- -- NOT REPORTED -- Recent Labs 06/06/19 1850 06/07/19 0545 06/07/19 1750 06/09/19 0539 PROT 8.3 6.7 7.4 6.0* LABALBU 4.9 3.9 4.4 3.6 AST 241* 201* 123* 31 ALT 268* 289* 261* 119* ALKPHOS 88 90 120 109 BILITOT 2.32* 3.38* 5.24* 1.04 AMYLASE -- -- -- 645* LIPASE 14 -- >3,000* 688* TRIG -- -- -- 122 ABG:No results found for: POCPH, PHART, PH, POCPCO2, LKA0HLE, PCO2, POCPO2, PO2ART, PO2, POCHCO3, VXM6VDZ, HCO3, NBEA, PBEA, BEART, BE, THGBART, THB, NZQ0BJW, BFWS4JSJ, M3MGKLRW, O2SAT, FIO2 Lab Results Component Value Date/Time [...] tomorrow Paula Potts MD 06/09/2019 7:37 AM Radha Springer OT - 06/08/2019 12:06 PM EDT Occupational Therapy [facility] Occupational Therapy Not Seen Note Patient not [...] disorder Extensive tattoos Other dyschromia Advance Directives Documents on File Type Date Recorded Patient Health Insurance Adjuster Expl anation Advance Directives and Living Will Power of Cook Helper Juice Latest Code Status on File Code Status Date Activated Date Inactivated Comments Full Code 06/06/2019 11:02 PM Full Code 04/25/2013 9:50 PM 04/26/2013 2:03 PM Full Code 04/25/2013 5:52 PM 04/25/2013 9:50 PM Latest Code Status on File Code Status Date Activated Date Inactivated Comments Full Code 06/06/2019 11:02 PM 06/07/2019 5:24 PM Documents on File Type Date Recorded Patient Health Insurance Adjuster Expl anation Advance Directives and Living Will Power of Cook Helper Juice Latest Code Status on File Code Status Date Activated Date Inactivated Comments Full Code 06/08/2019 12:09 AM Full Code 06/06/2019 11:02 PM 06/07/2019 5:24 PM Full Code 04/25/2013 9:50 PM 04/26/2013 2:03 PM Full Code 04/25/2013 5:52 PM 04/25/2013 9:50 PM Documents on File Type Date Recorded Patient Health Insurance Adjuster Expl anation ACP-Advance Directive ACP-Power of Cook Helper Juice Latest Code Status on File Code Status [...] Ennis DO - 06/13/2019 2:41 PM EST [facility] IN-PATIENT SERVICE [facility] Discharge Summary Patient ID: Devon Mathew : 1980 ACCOUNT: [id number] Patient's PCP: Rodrick Galdamez DO Admit Date: [...] >60 CALCIUM 8.8 9.0 9.3 Recent Labs 06/11/19 0441 06/13/19 0631 PROT -- 7.1 LABALBU -- 4.3 [...] 1 to 2 weeks Rodrick Galdamez DO [address] [place] [phone] Abhishek Vanessa MD [address] [place] [address] [facility] [phone] In 1 week Requiring Further Evaluation/Follow [...] Your Medications These medications were sent to [facility]/pharmacy #[id number] - [place], [place] - [address] - P [phone] - F [phone] [address] [facility] [place] [address] cephALEXin 500 MG capsule You can get [...] this patient's care. documented in this encounter Reason for Referral Specialty Diagnoses / Procedures Referred By Louann t Referred To Contact Radiology Diagnoses Chronic cough Pulmonary nodule Procedures CT chest without contrast Eli Bonilla DO [address] [address] Referral ID Status Reason Start Date Expiration Date V isits Requested Visits Authorized [id number] Pending Review 12/21/2023 12/20/2024 1 1 Specialty Diagnoses / Procedures Referred By Contac t Referred To Contact Diagnoses BLANCA (obstructive sleep apnea) Procedures Polysomnography 4 or more parameters with PAP titration Eli Bonilla DO [address] [address] Referral ID Status Reason Start Date Expiration Date V isits Requested Visits Authorized [id number] Pending Review 12/21/2023 12/20/2024 1 1 Specialty Diagnoses / Procedures Referred By Contac t Referred To Contact Diagnoses BLANCA (obstructive sleep apnea) Procedures PSG Diagnostic Eli Bonilla DO [address] [address] Referral ID Status Reason Start Date Expiration Date V isits Requested Visits Authorized [id number] Pending Review 12/21/2023 12/20/2024 1 1 Additional Source Comments Reason for Visit (unrecogniz ed section and content) Reason Comments Abdominal Pain Epigastric, onset la st PM. Pt describes as pressure Status Reason Specialty Diagnoses / Procedures Referre d By Contact Referred To Contact Diagnoses Acute cholecystitis Margarito Lopez MD [address] [place] [address] [facility] Reason Comments Abdominal Pain upper abd pain. charlie ent was discharged from hospital around 1500 today. he is scheduled for gallbladder surgery on Monday in [place]. he is having increased pain at this time. Status Reason Specialty Diagnoses / Procedures Referre d By Contact Referred To Contact Diagnoses Abdominal pain abdominal pain Paula Potts MD [address] [facility] [address] [phone] [facility] Reason Comments Cough cough ongoing for tw o weeks, started to feel sick 06/04 Shortness of Breath Chest Pain Reason Comments Cough x8 days, seen in ER for the same complaint, states it is not getting any better Shortness of Breath states ongoing Reason Comments New Patient CMR: 10/30/2023FT: 10/30/2023 Shortness of Breath Specialty Diagnoses / Procedures Referred By Louann licea Referred To Contact Pulmonary Medicine Diagnoses SOB (shortness of breath) Chronic cough Amol Hernandez, 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GE BOAT CAPTAIN [address] [place] [address] Felisha Conley MD [facility] [place] [address] Referral ID Status Reason Start Date Expiration Date Visits Requested Visits Authorized [id number] Pending Review Specialty Services Required 10/25/2023 10/24/2024 1 1 Reason Onset Date Comments Sleep Lab 12/22/2023 COMP (unrecognized sect ion and content) No Status [...] section and content) DATE CREATED AUTHOR 06/14/2019 [facility] DATE CREATED AUTHOR AUTHOR'S ORGANIZ ATION 02/25/2021 [facility] DATE CREATED AUTHOR AUTHOR'S ORGANIZ ATION 06/10/2021 [facility] DATE CREATED AUTHOR AUTHOR'S ORGANIZ ATION 06/26/2021 [facility] DATE CREATED AUTHOR AUTHOR'S ORGANIZ ATION 11/01/2023 [facility] DATE CREATED AUTHOR AUTHOR'S ORGANIZ ATION 12/24/2023 [facility] DATE CREATED AUTHOR AUTHOR'S ORGANIZ ATION 04/10/2024 [facility] DATE CREATED AUTHOR AUTHOR'S ORGANIZ ATION 07/20/2024 [facility] DATE CREATED AUTHOR AUTHOR'S ORGANIZ ATION 08/02/2024 [facility] DATE CREATED AUTHOR AUTHOR'S ORGANIZ ATION 08/06/2024 [facility] DATE CREATED AUTHOR AUTHOR'S ORGANIZ ATION 08/07/2024 [facility] DATE CREATED AUTHOR AUTHOR'S ORGANIZ ATION 08/10/2024 [facility] Ordered Prescriptions (unrec ognized section and [...] team informatio n (unrecognized section and content) Retail Support Specialist Relationship Specialty Start Date End Date Amol Hernandez APRN-FNP [address] [place] [address] PCP - General Family Medicine 10/27/23 Retail Support Specialist Relationship Specialty Start Date End Date Amol Hernandez APRN-FNP [address] [place] [id number] PCP - General Family Medicine 10/27/23 FOR RECORDS PERTAINING TO PATIENTS WHO ARE [...] BE BASED ON THE PRIMARY CLINICAL RECORDS. [employer] [facility]. provides no warranty or guarantee of the accuracy or completeness of information in this document.
[2025-01-07 23:03] VITALS: BP 156/105; PULSE 122; TEMP 36.9; O2SAT 96; BMI 34.4
--- NOTE | 2025-01-07 23:22 | ED.SKABFB1 ---
HPI - Skin/Abscess/Foreign Bdy General Chief complaint: Skin/Abscess/Foreign Body Stated complaint: Lump Time Seen by Provider: 01/07/25 23:04 Source: patient Mode of arrival: walk-in Limitations: no limitations History of Present Illness HPI narrative: This 44-year-old male with a history of diabetes who also has had multiple abscesses in his axilla and inguinal areas but has never been diagnosed with hidradenitis suppurativa presents for evaluation of a painful lump in his right scrotum. The patient states he noticed the area this morning and figured he had an abscess developing in this area. It has increased in size during the day and after taking a shower tonight he showed his who became concerned. He has not had any fevers or chills. He does have an indurated area in the right posterior upper thigh where he may be developing an abscess. He denies that he has tried to open this up with anything. He has no nausea or vomiting. He has no difficulty urinating. He has an approximately 1.5 x 1.5 cm extremely tender nodule in the right scrotum but does not appear to be involving the right testicle. He states he has been septic in the past from skin infections. Related Data Home Medications ?Medication ?Instructions ?Recorded ?Confirmed amlodipine 10 mg tablet 10 mg PO DAILY 12/24/24 01/07/25 insulin glargine 100 unit/mL (3 25 unit subcut QAM 12/24/24 01/07/25 mL) subcutaneous pen (Lantus Solostar U-100 Insulin) insulin lispro 100 unit/mL 1 sliding scale dose subcut AC 12/24/24 01/07/25 subcutaneous pen (Humalog KwikPen (U-100) Insulin) losartan 50 mg-hydrochlorothiazide 1 tab PO DAILY 12/24/24 01/07/25 12.5 mg tablet tizanidine 4 mg tablet 4 mg PO BEDTIME PRN muscle 01/07/25 01/07/25 spasticity Previous Rx's ?Medication ?Instructions ?Recorded albuterol sulfate 2.5 mg/3 mL 2.5 mg (3 mL) inhalation Q6H PRN 10/09/23 (0.083 %) solution for nebulization shortness of breath or wheezing #90 mL albuterol sulfate 90 mcg/actuation 2 inh inhalation Q6H PRN shortness 12/24/24 aerosol inhaler of breath or wheezing #8.5 grams budesonide-formoterol HFA 160 2 inh inhalation BID #10.2 grams 12/24/24 mcg-4.5 mcg/actuation aerosol inhaler (Symbicort) Allergies Allergy/AdvReac Type Severity Reaction Status Date / Time prednisone AdvReac Mild Vomiting Verified 01/07/25 23:01 Review of Systems ROS Status of ROS 10 or more systems reviewed and unremarkable except as noted in history and below PFSH [facility] Social History Smoking status: Heavy tobacco smoker Little interest or pleasure in doing things: not at all Feeling down, depressed, or hopeless: not at all Exam Narrative Exam Narrative: Vital signs and Nursing Notes reviewed: Patient is afebrile, tachycardic with a pulse of 122 and blood pressure is elevated 156/105, he is not hypoxic with pulse ox of 96% on room air General: Awake, alert, oriented, anxious and uncomfortable adult male, no respiratory distress HEENT: Normocephalic atraumatic, mucous membranes are moist and pink, eyes are clear, normal conjunctiva, vision is grossly intact Neck: Supple, no meningeal signs, no anterior or posterior cervical lymphadenopathy Chest: Lungs are clear to auscultation with good air entry, there is no wheezing rhonchi or rales appreciated no accessory muscle use, patient is speaking in complete sentences-no chest wall tenderness to palpation CVS: Regular rate and rhythm S1-S2, tachycardic at 122 at triage, no murmurs rubs or gallops, pulses are brisk and equal bilaterally ABD: Soft, nondistended, nontender, no rebound guarding or rigidity, bowel sounds are normal, no pulsatile masses appreciated : There is a normal testicular lie with normal cremasteric reflex, there is an approximately 1.5 x 1.5 cm firm, markedly tender nodule in the right scrotum-there is no drainage or skin color change in this area, there is no induration or fluctuance noted, there is no sign of necrotizing fasciitis. There is a nodule in the posterior aspect of the right upper thigh that is not draining. There are multiple dark-colored scars from prior abscesses in the posterior thigh areas. Extremities: Moving all extremities, no lower extremity tenderness or swelling noted, negative Homans' sign, pulses are brisk and equal bilaterally Skin: Normal in appearance without rash,pallor, petechiae or purpura Neuro: No focal deficits Constitutional Vital Signs, click to edit/add: Last Vital Signs Temp 98.4 F 01/07/25 23:03 Pulse 103 H 01/08/25 01:14 Resp 16 01/07/25 23:03 BP 156/105 H 01/07/25 23:03 Pulse Ox 93 L 01/08/25 01:14 O2 Del Method Room Air 01/07/25 23:03 Course Vital Signs Vital signs: Vital Signs Temperature 98.4 F 01/07/25 23:03 Pulse Rate 122 H 01/07/25 23:03 Respiratory Rate 16 01/07/25 23:03 Blood Pressure 156/105 H 01/07/25 23:03 Pulse Oximetry 96 01/07/25 23:03 Oxygen Delivery Method Room Air 01/07/25 23:03 Temperature 98.4 F 01/07/25 23:03 Pulse Rate 103 H 01/08/25 01:14 Respiratory Rate 16 01/07/25 23:03 Blood Pressure 156/105 H 01/07/25 23:03 Pulse Oximetry 93 L 01/08/25 01:14 Oxygen Delivery Method Room Air 01/07/25 23:03 MDM - Skin/Abscess/Foreign Bdy MDM Narrative Medical decision making narrative: This 44-year-old male who has a history of diabetes and has had multiple skin abscesses usually in his axilla and backs of his legs most likely consistent with hidradenitis suppurativa but has never been formally diagnosed with this presents for evaluation of a painful lump in his right scrotum. He states he noticed the lump this morning and throughout the day it increased in size. He has not had any fever. It is exquisitely tender but does not appear to involve the testicle itself. I do not appreciate any findings concerning for necrotizing fasciitis but the patient does have some indurated areas in the upper posterior thighs that may be developing abscesses. He has not had a fever. He denies any chest pain or shortness of breath. He appears to be extremely uncomfortable upon arrival, he was afebrile but his pulse was 122. Physical exam is consistent with a developing abscess in the scrotum. Ultrasound is not available so I ordered a CT scan with IV contrast. An IV is placed and he was medicated with IV fluids, Zofran and morphine. He does not appear to be toxic or septic but in light of his tachycardia and this abnormal finding in his scrotum septic workup was ordered. He was given IV Zosyn and IV vancomycin. His white count is elevated at 13.7. He has a stable hemoglobin. Glucose is elevated at 372. BUN and Creatinine are normal. Lactic acid is elevated at 2.3. 30cc/kg of NS calculated out to 3240. After his CT scan he requested something else for pain and was given a milligram of morphine. He has been reevaluated multiple times and states his pain is under control and does not feel that the lump in his right scrotum has increased in size. CT scan with IV contrast was reviewed by radiology. It shows fatty infiltration of the liver, cholecystectomy, surgical clips in the right lower quadrant fixation of the lower lumbar spine, no free fluid or free air, no abscess or hematoma, no bowel or renal obstruction, no retroperitoneal adenopathy. He does note that he has a normal size prostate gland and normal seminal vesicles. The results of the CT scan were discussed with the patient and his and he was given a copy for his records. Clinically I suspect that he has a developing abscess in this area. Ultrasound is not available at this time. There is no concern on my behalf for a testicular torsion as he has a normal testicular lie and normal cremasteric reflex despite the tender mass in his right testicle. He will be given a requisition for an ultrasound of the scrotum that I suggested he get done in the next 2 to 3 days. He will be discharged home with a prescription for Percocet and Zofran for pain and nausea and Augmentin. He was given 2 Percocet at the time of discharge to use as needed for ongoing pain and a note for work. He was encouraged return to the emergency department for worsening symptoms, any signs of necrotizing fasciitis which I described to the patient and his , fevers, worsening pain or any concerns. He will also be given referral information for outpatient urology and family medicine to establish care with a PCP. Lab Data Labs: Lab Results 01/07/25 Range/Units 23:25 WBC 13.7 H (4.0-11.0) 10^3/uL RBC 5.05 (4.70-6.10) 10^6/uL Hgb 15.0 (14.0-18.0) g/dL Hct 42.3 (42.0-54.0) % MCV 83.8 (80.0-94.0) fL MCH 29.7 (25.9-34.0) pg MCHC 35.5 H (29.9-35.2) g/dL RDW 12.7 (11.0-15.0) % Plt Count 302 (150-450) 10^3/uL MPV 10.8 (9.5-13.5) fL Neut % (Auto) 63.5 (43.0-75.0) % Lymph % (Auto) 28.5 (20.5-60.0) % Villalba % (Auto) 5.6 (1.7-12.0) % Eos % (Auto) 1.5 (0.9-7.0) % Baso % (Auto) 0.6 (0.2-2.0) % Neut # (Auto) 8.7 H (1.4-6.5) 10^3/uL Lymph # (Auto) 3.9 H (1.2-3.8) 10^3/uL Villalba # (Auto) 0.8 (0.3-0.8) 10^3/uL Eos # (Auto) 0.2 (0.0-0.7) 10^3/uL Baso # (Auto) 0.1 (0.0-0.1) 10^3/uL Abs Immat Gran (auto) 0.04 H (0.00-0.03) 10^3/uL Imm/Tot Granulo (auto) 0.3 (0.0-0.5) % Sodium 135 L (136-145) mmol/L Potassium 3.6 (3.5-5.1) mmol/L Chloride 96 L (98-107) mmol/L Carbon Dioxide 27.1 (21.0-32.0) mmol/L Anion Gap 15.5 BUN 9.0 (7.0-18.0) mg/dL Creatinine 0.79 (0.70-1.30) mg/dL Est GFR ( Amer) >60 (>=60 mL/min/1.73m^2) Est GFR (Non-Af Amer) >60 (>=60 mL/min/1.73m^2) BUN/Creatinine Ratio 11.4 Glucose 372 H (74-106) mg/dL Lactate 2.3 H* (0.4-2.0) mmol/L Calcium 9.6 (8.5-10.1) mg/dL Total Bilirubin 0.2 (0.2-1.0) mg/dL AST 20 (15-37) U/L ALT 45 (16-63) U/L Alkaline Phosphatase 99 (46-116) U/L Total Protein 7.4 (6.4-8.2) g/dL Albumin 3.6 (3.4-5.0) g/dL Globulin 3.8 g/dL Albumin/Globulin Ratio 0.9 Discharge Plan Discharge Chief Complaint: Skin/Abscess/Foreign Body Clinical Impression: Scrotal mass, Abscess of scrotal wall Patient Disposition: Home, Self-Care Time of Disposition Decision: 02:48 Condition: Good Prescriptions / Home Meds: No Action tizanidine 4 mg tablet 4 mg PO BEDTIME PRN (Reason: muscle spasticity) albuterol sulfate 2.5 mg /3 mL (0.083 %) solution for nebulization 2.5 mg inhalation Q6H PRN (Reason: shortness of breath or wheezing) Qty: 90 0RF amlodipine 10 mg tablet 10 mg PO DAILY insulin glargine [Lantus Solostar U-100 Insulin] 100 unit/mL (3 mL) insulin pen 25 unit SUBCUT QAM insulin lispro [Humalog KwikPen Insulin] 100 unit/mL insulin pen 1 sliding scale dose SUBCUT AC Rx Instructions: 10 UNITS BEFORE BREAKFAST 12 UNITS BEFORE LUNCH 14 UNITS BEFORE DINNER losartan-hydrochlorothiazide 50-12.5 mg tablet 1 tab PO DAILY budesonide-formoterol [Symbicort] 160-4.5 mcg/actuation HFA aerosol inhaler 2 inh inhalation BID Qty: 10.2 0RF albuterol sulfate 90 mcg/actuation HFA aerosol inhaler 2 inh inhalation Q6H PRN (Reason: shortness of breath or wheezing) Qty: 8.5 2RF Print Language: Bengali Instructions: Abscess (ED), Scrotal Pain (ED) Additional Instructions: Call tomorrow to schedule an outpatient ultrasound in the next 2 to 3 days. Return to the emergency department for fever, worsening swelling, nausea vomiting, drainage from the scrotal area or any concerns. Finish the antibiotics. Use the pain medication as needed. You are welcome to return to the emergency department at anytime for worsening symptoms or any concerns. Referrals: Dustin Montero MD [Physician] - 1 week Physician,Non-StaffMD [Primary Care Provider] - 1 week
[2025-01-07 23:31] LABS: Basophils Absolute Auto 0.1 10^3/uL (0.0-0.1); Basophils Percent Auto 0.6 % (0.2-2.0); Eosinophils Absolute Auto 0.2 10^3/uL (0.0-0.7); Eosinophils Percent Auto 1.5 % (0.9-7.0); Hematocrit 42.3 % (42.0-54.0); Immature Granulocytes Abs Auto 0.04 10^3/uL (0.00-0.03); Immature Granulocytes Pct Auto 0.3 % (0.0-0.5); Lymphocytes Absolute Auto 3.9 10^3/uL (1.2-3.8); Lymphocytes Percent Auto 28.5 % (20.5-60.0); Mean Corpuscular HGB Conc 35.5 g/dL (29.9-35.2); Mean Corpuscular Hemoglobin 29.7 pg (25.9-34.0); Mean Corpuscular Volume 83.8 fL (80.0-94.0); Mean Platelet Volume 10.8 fL (9.5-13.5); Monocytes Absolute Auto 0.8 10^3/uL (0.3-0.8); Monocytes Percent Auto 5.6 % (1.7-12.0); Neutrophils Absolute Auto 8.7 10^3/uL (1.4-6.5); Neutrophils Percent Auto 63.5 % (43.0-75.0); Platelet Count 302 10^3/uL (150-450); Red Blood Count 5.05 10^6/uL (4.70-6.10); Red Cell Distribution Width 12.7 % (11.0-15.0); White Blood Count 13.7 10^3/uL (4.0-11.0)
[2025-01-07] MEDS: MORPHINE SULFATE 4 MG/ML VIAL IV (23:40)
[2025-01-07] MEDS: ONDANSETRON PF 4 MG/2 ML VIAL IV (23:40)
[2025-01-07 23:52] LABS: Alanine Aminotransferase 45 U/L (16-63); Albumin Globulin Ratio 0.9; Albumin Level 3.6 g/dL (3.4-5.0); Alkaline Phosphatase 99 U/L (46-116); Anion Gap 15.5; Aspartate Amino Transferase 20 U/L (15-37); BUN Creatinine Ratio 11.4; Bilirubin Total 0.2 mg/dL (0.2-1.0); Calcium 9.6 mg/dL (8.5-10.1); Carbon Dioxide 27.1 mmol/L (21.0-32.0); Chloride 96 mmol/L (98-107); Estimated GFR (African America >60 (>=60 mL/min/1.73m^2); Estimated GFR (Non-African Ame >60 (>=60 mL/min/1.73m^2); Globulin 3.8 g/dL; Glucose 372 mg/dL (74-106); Potassium 3.6 mmol/L (3.5-5.1); Sodium 135 mmol/L (136-145); Total Protein 7.4 g/dL (6.4-8.2)
[2025-01-08 00:03] LABS: Lactate/Lactic Acid 2.3 mmol/L (0.4-2.0)
[2025-01-08] MEDS: VANCOMYCIN HCL 1,750 MG in 0.9 % SODIUM CHLORIDE 500 ML 250 MG IV (00:08)
[2025-01-08] MEDS: 0.9 % SODIUM CHLORIDE 1,000 ML 1000 ML IV ×2 (00:09→01:56)
[2025-01-08] MEDS: HYDROMORPHONE HCL 1 MG/ML CARTRIDGE IV (01:11)
[2025-01-08 01:14] VITALS: PULSE 103; O2SAT 93
[2025-01-08] MEDS: PIPERACILLIN SODIUM/TAZOBACTAM 3.375 GM in 0.9 % SODIUM CHLORIDE 50 ML IV (02:14)
[2025-01-08] MEDS: OXYCODONE HCL/ACETAMINOPHEN 5MG/325MG 2 TAB PO (02:59)
[2025-01-08 03:05] VITALS: BP 156/94; PULSE 89; O2SAT 95
== END 2025-01-08 03:08 | disposition home or self-care (01) ==
PROVIDERS: Emergency Provider Emergency Medicine
DX: N49.2 Inflammatory disorders of scrotum (principal); N50.9 Disorder of male genital organs, unspecified; E11.9 Type 2 diabetes mellitus without complications; Z79.4 Long term (current) use of insulin; F17.200 Nicotine dependence, unspecified, uncomplicated; Z90.49 Acquired absence of other specified parts of digestive tract
CPT/HCPCS: 36415; 74177; 80053; 83605; 85025; 87040; 96365; 96366; 96368; 96375; 99285; J1171; J2270; J2405; J2543; J3370; Q9967

== ENCOUNTER 2025-02-16 15:04 | Emergency (ER) | payer OTHER, SELFPAY ==
--- OUTSIDE RECORDS SUMMARY | 2023-10-11 12:47 | XMS_ITS ---
Author Organization [facility] [place] Address [address] [place] [address] Care Team Providers Care Ophthalmic Nurse Name Role Phone Boris Justin NP Primary Care Provider Unavailab Saud Cam Unavailable [phone] REASON FOR VISIT SERVICE DISMANTLER referral appt/[facility] ER F/U Encounters Encounter Location Date Provider Diagnosis Pulmonary Medicine [place] [address] [place] [address] 10/11/2023 aSud Raygoza Plan Of Treatment No Information Progress Notes * Devon ORO MDOB:[birth year] (43 yo M)Acc No.[id number]:10/11/2023 Patient: Kate cameronrennyDevon mock :1980 A ge:43 Y S ex:Male Address:[address] [place] [address], [phone] * true * Date: Generated for Printi ng/Fakatianag/eTransmitting on: 0 02/16/2025 03:20 PM EDT
--- OUTSIDE RECORDS SUMMARY | 2024-01-04 11:45 | XMS_ITS ---
Author Organization [facility] vices Address [address] [place], [place] [address] Care Team Providers Care Contract Agent Name Role Phone Deepika Grigsby Primary Care Provider REASON FOR VISIT B/P SOB Social History Sex Assigned At : Social History Observation Description Sex Assigned At Male Encounters Encounter Location Date Provider Diagnosis [place] [address] [place] [address] 01/04/2024 Deepika Grigsby Plan Of Treatment No Information Progress Notes * PREETHIGuerlineOB:1980 (44 yo M)Acc No.[id number]:01/04/2024 Medical Note Patient: Leandro LANEy Provider: Kate Grigsby :1980 A ge:43 Y S ex:Male Date:01/04/2024 Address:[address] [place], [place] [id number] Subjective: * Chief Complaints: * 1 . B/P SOB. * Medical History: Objective: * Vitals: Assessment: Plan: * Treatment: * Billing Information: * Visit Code: * Procedure Codes: * Electronic signature of GERMAINE Esposito on 02/16/2025 at 03:20 PM EDT Sign off status: Pending * Provider: Kate Grigsby Date: 01/04/2024 Generated for Ishmael bowers/Elvia/eTransmitting on: 02/16/2025 03:20 PM EDT
[2025-02-16 15:11] VITALS: BP 140/83; PULSE 89; TEMP 36.7; O2SAT 98; BMI 34.4
--- OUTSIDE RECORDS SUMMARY | 2025-02-16 15:20 | XMS_ITS | Clinical Summary ---
Author Organization [facility] Address [address] [place] [address] Care Team Providers Care Operations Vocational Instructor Name Role Phone Mukund Galdamez DO Primary Care Provider [phone] Medications amLODIPine 10 MG tablet 04/23/2021 Active ALPRAZolam 1 MG tablet 05/27/2021 Active Social History Tobacco Use Types Packs/Day Years Used Date Smoking Tobacco: Every Day Smokeless Tobacco: Never Alcohol Use Standard Drinks/Week Comments Not Currently 0 (1 standard drink = 0.6 oz pur e alcohol) Sex and Gender Information Value Date Recorded Sex Assigned at Not on file Legal Sex Male 7:40 AM EST Gender Identity Not on file Sexual Orientation Not on file Last Filed Vital Signs Vital Sign Reading Time Taken Comments Blood Pressure 192/118 06/15/2021 7:52 AM EST Pulse 91 06/15/2021 7:52 AM EST Temperature 36.9 C (98.4 F) 06/15/2021 7:52 AM EST Respiratory Rate 18 06/15/2021 7:52 AM EST Oxygen Saturation 97% 06/15/2021 7:52 AM EST Inhaled Oxygen Concentration - - Weight - - Height - - Body Mass Index - - Plan of Treatment Health Maintenance Due Date Last Done Comments HEPATITIS C VIRUS SCREENING 1981 HIV SCREENING DISCUSSION 1996 HEP B VACCINE (1 of 3 - 19+ 3-dose series) 2000 LIPID SCREENING 2021 COVID-19 VACCINE (2023-2 5 season) 2024 INFLUENZA VACCINE (Season Ended) 2025 TETANUS 09/06/2026 09/06/2016 TDAP (ADULT) Completed 09/06/2016 HPV VACCINE Aged Out No longer eligi ble based on patient's age to complete this topic PNEUMOCOCCAL VACCINE SERIES Aged Out No longer eligible based on patient's age to complete this topic Insurance [facility] Care Teams Operations Vocational Instructor Relationship Specialty Start Date End Date Mukund Galdamez DO [address] [place], [place] [id number] PCP - General Family Medicine 06/15/21
--- OUTSIDE RECORDS SUMMARY | 2025-02-16 15:20 | XMS_ITS | Clinical Summary ---
Author Organization [facility] Address [id number] [address] [place] [address] Care Team Providers Care Starch Crab Name Role Phone Deepika Grigsby TREE CLIMBER-DEGREE CLERK Primary Care Provider [phone] Allergies Active Allergy Reactions Criticality Noted Date [...] Date Smoking Tobacco: Every Day Cigarettes 1.9 31.5 Started: 1993 Smokeless Tobacco: Never Tobacco Cessation:Ready [...] Ophthalmology Exam 1981 Statin Use: Diabetic 1981 Depression Screening 1993 Diabetic Foot Exam 1999 Adult BMI Screening 12/20/2024 12/21/2023 Tobacco Screening 12/20/2024 12/21/2023 Influenza Vaccine 04/07/2025 04/21/2017, , 2015 DTaP,Tdap and Td Vaccines (2 - Td or Tdap) 09/06/2026 09/06/2016 Medical Devices Not on file Insurance [facility] [employer] Care Teams Starch Crab Relationship Specialty Start Date End Date Deepika Grigsby APRN-FNP [address] [place] [id number] PCP - General Family Medicine 10/27/23
--- OUTSIDE RECORDS SUMMARY | 2025-02-16 15:20 | XMS_ITS | Encounter Summary ---
Author Organization [employer] Address [id number] [address] [place] [address] Care Team Providers Care Airframe Design Engineer Name Role Phone Deepika Grigsby ENVELOPE PATTERNMAKER-ELECTRICAL MAINTENANCE SUPERVISOR Primary Care Provider [phone] Encounter Details Date Type Department Care Team (Late st Contact Info) Description 10/26/2023 Telephone [facility] Pulmonary/Sleep Medicine [address] [address] Katt Barnett Social History Tobacco [...] PT apt for 12/21/2023 with SE at [facility] for SOB (shortness of breath) Chronic cough [...] on filedocumented in this encounter Care Teams Airframe Design Engineer Relationship Specialty Start Date End Date Deepika Grigsby APRN-GERMAINE [address] [place] [address] PCP - General Family Medicine 10/27/23 documented as of this encounter
--- OUTSIDE RECORDS SUMMARY | 2025-02-16 15:20 | XMS_ITS | Encounter Summary ---
Author Organization [employer] [facility] Address [id number] [address] [place] [address] Care Team Providers Care Litigation Counsel Name Role Phone Deepika Grigsby UTILITIES OPERATOR-CLIP AND HANGER ATTACHER Primary Care Provider [phone] Encounter Details Date Type Department Care Team (Late st Contact Info) Description 10/26/2023 Orders Only [facility] Pulmonary/Sleep Medicine [address] [address] Carolynn Feldman, ARLENE SOB (shortness [...] type documented in this encounter Care Teams Litigation Counsel Relationship Specialty Start Date End Date Deepika Grigsby APRN-FNP [address] [place] [id number] PCP - General Family Medicine 10/27/23 documented as of this encounter
--- OUTSIDE RECORDS SUMMARY | 2025-02-16 15:20 | XMS_ITS | CCD ---
Author Organization [facility] Care Team Providers [employer]ated [employer] Driver Name Role Phone Rodrick Galdamez Primary Care Provider [phone] ARMAAN LEVI Referring Unavailable DENICE RODRICK Love Primary Care Unavailable RACHAEL PRAJAPATI Consulting Unavailable KAMERON ENNIS Attending Unavailable KAMERON ENNIS Admitting Unavailable BOB YEUGN Consulting Unavailable ABHISHEK VANESSA Consulting Unavailable KULDIP, DR MORRISON Attending Unavailable BENJAMIN, DR STEVE LISTED Primary Care Unavaila peng STEWART, DR SORAYA Benz Consulting Unavailable KULDIP, DR MORRISON Admitting Unavailable EVI MOROCHO Consulting Unavailable Denice DO Rodrick Love Primary Care Provider LINETTE TAPIA Attending Unavailable DENICE RODRICK Love Primary Care Unavailable MICHEAL KWOK Attending Unavailable DENICE RODRICK Love Primary Care Unavailable HATTIE SHANE Primary Care Physician ELI BONILLA Attending Unavailable ELI BONILLA Referring Unavailable DAVID, WATERVLIET Primary Care Unavailable ELI BONILLA Attending Unavailable ELI BONILLA Referring Unavailable DAVID, WATERVLIET Primary Care Unavailable ELI BONILLA Attending Unavailable DAVID, AMOL Referring Unavailable DAVID, WATERVLIET Primary Care Unavailable DAVID, WATERVLIET Primary Care Physician NONE, XXXX Primary Care Physician Unavailab Vickie Carrasco Admitting Unavailable SHAMMO HATTIE Primary Care Unavailable [place] PAN Consulting Unavailable Daron SIFUENTES Attending Unavailable [place] PAN Consulting Unavailable [place] PAN Consulting Unavailable Tan Dempsey Attending Unavailable [facility], WATERVLIET Primary Care Unavailable John Saldana Attending Unavailable DAVID, WATERVLIET Primary Care Unavailable Jamarcus Lerma Attending Unavailable Tan Dempsey Attending Unavailable Tan Shannon Referring Unavailable Tan Shannon Attending Unavailable Tan Shannon Admitting Unavailable Tan Shannon Attending Unavailable Tan Shannon Referring Unavailable Tan Shannon Admitting Unavailable Tan Shannon Attending Unavailable Jamarcus Lerma Attending Unavailable David FUEL CONVERSION [facility]IC[facility] [place] Primary Care Provider Hitesh Schwartz Attending Unavailable Allergies Allergy Classification Reported Allergen(s) Allergy Type Date of Onset Reaction(s) Facility (4 sources) traMADol; Translations: [TRAMADOL] Drug Allergy 8 GI Disturbance [facility] Repository (4 sources) No Known Medication Allergies; Translations: [No Known Medication Allergies] Propensity to adverse reactions (disorder) [facility] Repository (1 source) predniSONE; Translations: [prednisone] Drug Allergy Blood pressure alteration (finding) [facility] Medications Current Medications Medication Drug Class(es) Dates [...] sources) Opioid Agonist Start: 07-30-2024 End: 08-01-2024 [place] 325 mg-5 mg oral tablet 1 tab(s), Oral, q6hr as needed for pain, 10 tab(s), Refill(s) 0, [facility]/pharmacy #[id number], 149, cm, 07/30/24 7:45:00 EST, Height/Length [...] for 2 day(s), 8 tab(s), Refill(s) 0, [facility]/pharmacy #[id number], 177.1, cm, 04/09/24 12:59:00 EDT, [...] 0 Active amLODIPine 10 mg oral tablet (16 sources) Dihydropyridine Calcium Channel Navarro Start: 06-11-2019 take 1 tablet by mouth once daily amLODIPine 10 mg Tab 10 mg = 1 tab(s), Oral, Daily, Refills(s) 0 Start Date: 10/21/23 Status: Ordered Repeat number: 1 Start: 06-10-2019 End: 06-10-2019 take 5 mg by mouth once daily 5 mg, Oral, DAILY, First dose on Mon06/10/19 at 1300 Start: 06-07-2019 take 5 mg by mouth once daily 5 mg, Oral, DAILY, First dose on Mon06/07/19 at 0900 aspirin 81 mg delayed release oral tablet (8 sources) Platelet Aggregation Inhibitor, Nonsteroidal Anti-inflammatory Drug Start: 10-23-2023 take 1 tablet by mouth once daily aspirin 81 mg Oral EC Tab 81 mg = 1 tab(s), Oral, Daily, Refills(s) 0 Start Date: 10/23/23 Status: Ordered Repeat number: 1 atorvastatin 40 mg oral tablet (8 sources) HMG-CoA Reductase Inhibitor Start: 10-23-2023 take 1 tablet by mouth at bedtime Lipitor 40 mg Tab 40 mg = 1 tab(s), Oral, Bedtime, # 30 tab(s), Refills(s) 1, Pharmacy: [facility]/pharmacy #[id number], 178, cm, 10/21/23 18:51:00 EDT, Height/Length Dosing, 120, kg, 10/21/23 18:51:00 EDT, Weight Dosing Start Date: 10/23/23 Status: Ordered Quantity: 30.0 Unit: tab(s) Repeat number: 2 benzonatate 100 mg oral capsule (3 sources) Non-narcotic Antitussive Start: 06-07-2021 End: 06-14-2021 take 1 capsule by mouth three times daily as needed for cough benzonatate (TESSALON PERLES) 100 MG capsule Take 1 capsule by mouth 3 times daily as needed for Cough 30 capsule 0 06/07/2021 06/14/2021 Active cephalexin 500 mg oral capsule (2 sources) Cephalosporin Antibacterial Start: 01-16-2025 End: 01-23-2025 take 1 capsule by mouth four times daily Keflex 500 mg Cap 500 mg = 1 cap(s), Oral, QID, X 7 day(s), # 28 cap(s), Refills(s) 0, Pharmacy: [facility]/pharmacy #[id number], 177.8, cm, 01/16/25 20:48:00 EDT, Height/Length Dosing, 113.8, kg, 01/16/25 20:48:00 EDT, Weight Dosing Start Date: 01/16/25 Stop Date: 01/23/25 Status: Ordered Quantity: 28.0 Unit: cap(s) Repeat number: 1 Start: 06-13-2019 End: 06-20-2019 take 1 capsule by mouth three times daily cephALEXin (KEFLEX) 500 MG capsule Take 1 capsule by mouth 3 times daily for 7 days 21 capsule 0 06/13/2019 06/20/2019 Active doxycycline hyclate 100 mg oral tablet (4 sources) Tetracycline-class Drug Start: 01-16-2025 End: 01-23-2025 take 1 tablet by mouth every twelve hours doxycycline hyclate 100 mg Tab 100 mg = 1 tab(s), Oral, q12hr, X 7 day(s), # 14 tab(s), Refills(s) 0, Pharmacy: [facility]/pharmacy #[id number], 177.8, cm, 01/16/25 20:48:00 EDT, Height/Length Dosing, 113.8, kg, 01/16/25 20:48:00 EDT, Weight Dosing Start Date: 01/16/25 Stop Date: 01/23/25 Status: Ordered Quantity: 14.0 Unit: tab(s) Repeat number: 1 Start: 10-23-2023 take 1 capsule by [facility] twice daily doxycycline hyclate 100 mg Cap 100 mg = 1 cap(s), Oral, BID, # 14 cap(s), Refills(s) 0, Pharmacy: [facility]/pharmacy #[id number], 178, cm, 10/21/23 18:51:00 EDT, Height/Length Dosing, 120, kg, 10/21/23 18:51:00 EDT, Weight Dosing Start Date: 10/23/23 Status: Ordered 0.4 ml enoxaparin sodium 100 mg/ml prefilled syringe (2 sources) Low Molecular Weight Heparin Start: 06-08-2019 End: 06-12-2019 inject 40 mg by subcutaneous injection once daily 40 mg, Subcutaneous, DAILY, First dose on [facility] 06/13/19 at 0900 Time adjusted due to surgery today. Post-op 2 ml famotidine 10 mg/ml injection (4 sources) Histamine-2 Receptor Antagonist Start: 06-08-2019 famotidine (PEPCID) injection 20 mg Start: 06-06-2019 End: 06-10-2019 take 1 tablet by mouth twice daily famotidine (PEPCID) 20 MG tablet Take 1 tablet by mouth 2 times daily 60 tablet 0 06/06/2019 06/10/2019 Discontinued agboboyqntn-wsoeiauhw-kmdkpn er (TRELEGY ELLIPTA) 200-62.5-25 mcg blister with device (2 sources) Start: 12-21-2023 take 1 puff(s) by inhalation in the morning tqwvukvojbb-ybwkcdgsk-szxiwmpp (TRELEGY ELLIPTA) 200-62.5-25 mcg blister with device Indications: Centrilobular emphysema (CMS-HCC) Inhale 1 puff in the morning. 60 each 11 12/21/2023 Active FREESTYLE DAMIEN 3 SENSOR dev ice (2 sources) Start: 11-30-2023 FREESTYLE DAMIEN 3 SENSOR dev ice CHANGE SENSOR EVERY 14 DAYS 11/30/2023 Active hydroCHLOROthiazide 12.5 mg / losartan potassium 100 mg oral tablet (8 sources) T h i a z i d e D i u r e t i c , A n g i o t e n s i n 2 R e c e p t o r B l o c k e r Start: 10-23-2023 hydrochlorothiazide-losartan 12.5 mg-100 mg oral tablet 1 tab(s), Oral, Daily, 90 tab(s), Refill(s) 0, [facility]/pharmacy #[id number], 178, cm, 10/21/23 18:51:00 EDT, Height/Length Dosing, 120, kg, 10/21/23 18:51:00 EDT, Weight Dosing Start Date: 10/23/23 Status: Ordered Quantity: 90.0 Unit: tab(s) Repeat number: 1 take 1 tablet by [place] th once in the morning losartan-hydroCHLOROthiazide (HYZAAR) 50 [...] 07/19/2013 Active take 2 tablets by mo uth every six hours as needed for pain ibuprofen (ADVIL;MOTRIN) 200 MG tablet T rocío 400 mg by mouth every 6 hours as needed for Pain 0 Active 3 ml insulin glargine 100 unt/ml pen injector (5 sources) Insulin Analog Start: 07-26-2024 Lantus Solosta r Pen 100 units/mL subcutaneous solution 25 unit(s), SubCutaneous, Daily, Blood glucose Start Date: 07/26/24 Status: Ordered Repeat number: 1 Start: 07-26-2024 inject 10 [IU] by chapman bcutaneous injection at bedtime Lantus Solostar Pen 100 units/mL subcutaneous solution 10 unit(s), SubCutaneous, Bedtime, Blood glucose Start Date: 07/26/24 Status: Ordered LANTUS SOLOSTAR U-100 INSULIN 100 unit/mL (3 mL) insulin pen Inject under the skin daily. Active 3 ml insulin lispro 100 unt/ml pen injector (5 sources) Insulin Analog Start: 07-26-2024 inject 7 [IU] by subcutaneous injection twice daily HumaLOG KwikPen 100 units/mL injectable solution See Instructions, 7 unit(s) SubCutaneous BID, Blood glucose Start Date: 07/26/24 Status: Ordered Repeat number: 1 Start: 07-26-2024 inject 7 [IU] by sub [...] IVPB metFORMIN hydrochloride 500 mg oral tablet (8 sources) Biguanide Start: 10-23-2023 take 2 tablets by mouth in the morning, then take 2 tablets by mouth at mealtime metFORMIN (GLUCOPHAGE) 500 mg tablet Take 2 tablets (1,000 mg total) by mouth in the morning and 2 tablets (1,000 mg total) in the evening. Take with meals. 10/23/2023 Active Start: 10-23-2023 take 1 tablet by [place] th twice daily metformin 500 mg Tab 500 mg = 1 tab(s), Oral, BID, # 60 tab(s), Refills(s) 0, Pharmacy: [facility]/pharmacy #[id number], 178, cm, 10/21/23 18:51:00 EDT, Height/Length Dosing, 120, kg, 10/21/23 18:51:00 EDT, Weight Dosing Start Date: 10/23/23 Status: Ordered Quantity: 60.0 Unit: tab(s) Repeat number: 1 methocarbamol 750 mg oral tablet (1 source) Muscle Relaxant Start: 04-04-2024 End: 04-07-2024 take 1 tablet by mouth three times daily Robaxin-750 oral tablet 1,500 mg = 2 tab(s), Oral, TID, X 3 day(s), # 18 tab(s), Refills(s) 0, Pharmacy: [facility]/pharmacy #[id number], 177.1, cm, 04/04/24 12:32:00 EDT, [...] mg metoprolol tartrate 50 mg oral tablet (18 sources) beta-Adrenergic Navarro Start: 06-09-2019 metopr olol (LOPRESSOR) injection 5 mg Start: 06-06-2019 End: 10-23-2023 take 1 tablet by mouth twice daily Metoprolol tartrate 50 mg Tab 50 mg = 1 tab(s), Oral, BID, Refills(s) 0 Start Date: 10/21/23 Status: Ordered Repeat number: 1 morphine (PF) injection 2 mg (1 source) Start: 06-12-2019 morphine (PF) injection 2 mg naproxen 500 mg oral tablet (4 sources) Nonsteroidal Anti-inflammatory Drug Start: 04-04-2024 take 1 tablet by mouth twice daily as needed for pain Naprosyn 500 mg Tab 500 mg = 1 tab(s), Oral, BID, PRN for pain, # 20 tab(s), Refills(s) 0, Pharmacy: [facility]/pharmacy #[id number], 177.1, cm, 04/04/24 12:32:00 EDT, Height/Length Dosing, 124.7, kg, 04/04/24 12:32:00 EDT, Weight Dosing Start Date: 04/04/24 Status: Ordered Start: 07-01-2019 take 1 tablet by [place] th twice daily at mealtime naproxen (NAPROSYN) 500 MG tablet Take 1 tablet by mouth 2 times daily (with meals) 60 tablet 0 07/01/2019 Active 24 hr nicotine 0.875 mg/hr transdermal system (5 sources) Cholinergic Nicotinic Agonist Start: 07-30-2024 nicotine 21 mg/24 hr Transderm ER Film 1 patch(es), TransDermal, Daily Start Date: 07/30/24 Status: Ordered Repeat number: 1 Start: 10-24-2023 apply 1 dose transde rmal route once daily nicotine (NICODERM CQ) 21 mg/[address] 1 patch on the skin daily. 10/24/2023 Active Start: 06-08-2019 nicotine (JARRETT DERM CQ) 21 MG/24HR 1 patch 24 hr NIFEdipine 90 mg extended release oral tablet (8 sources) Dihydropyridine Calcium Channel Navarro Start: 10-24-2023 [...] Refills(s) 0 Start Date: 10/21/23 Status: Ordered Repeat number: 1 ondansetron 4 mg oral tablet (9 sources) [...] EVERY 6 H OURS PRN, Nausea, Starting [facility] 06/06/19 at 2302 Start: 06-06-2019 End: 06-10-2019 [...] days., # 45 tab(s), Refills(s) 0, Pharmacy: [facility]/pharmacy #[id number], 177.1, cm, 04/09/24 12:59:00 EDT, [...] Care, After every IV line use, Starting [facility] 06/06/19 at 2302 Completed/Discontinued Medications Medication Drug Class(es) Dates Sig (Normalized) Sig (Original) albuterol 0.83 mg/ml inhalation solution (5 sources) beta2-Adrenergic Agonist Start: 07-23-2024 albuterol 0.083% Inh Fatimah 3 mL Refill(s) 0, 75 mL, 0 Refill(s), INHALE 3 ML EVERY 6 HOURS NEEDED FOR SHORTNESS OF BREATH OR WHEEZING Start Date: 07/23/24 Status: Ordered Repeat number: 1 Start: 10-09-2023 take 2.5 mg by inhal [...] Problem Date Documented Date Episodic/Chronic Abdominal hernia (4 sources) Incisional hernia; Translations: [Incisional hernia without obstruction or gangrene] Onset: 07-26-2024 Episodic Anxiety disorders (5 sources) Anxiety state; Translations: [Generalized anxiety disorder] Onset: 12-22-2017 12-22-2017 Chronic Chronic obstructive pulmonary disease and bronchiectasis (13 sources) Centrilobular emphysema; Translations: [Chronic obstructive lung disease] Onset: 12-21-2023 04-04-2024 Chronic Diabetes mellitus with complications (4 sources) Hyperglycemia due to type 2 diabetes mellitus; Translations: [Type 2 diabetes mellitus with hyperglycemia] Onset: 07-26-2024 Chronic Diabetes mellitus without complication (8 sources) Type 2 diabetes mellitus without complication; [...] 10-22-2023 Episodic Other aftercare (1 source) Other buttermaker (current) drug therapy; Translations: [OTH [facility] CURRENT DRUG THERAPY] Onset: 02-15-2021 Episodic Other aftercare (1 source) Long-term current use of drug therapy; Translations: [Other [facility] (current) drug therapy] Onset: 10-21-2023 Episodic Other [...] Chronic Other nutritional; endocrine; and metabolic disorders (3 sources) Body mass index 30+ - obesity 07-26-2024 Chronic Other nutritional; endocrine; and metabolic disorders (3 sources) Obesity caused by energy imbalance 07-26-2024 [...] of mental health and substance abuse codes (6 sources) Tobacco use and exposure - finding 10-21-2023 Chronic Septicemia (except in labor) (1 source) Sepsis; Translations: [Sepsis, unspecified organism] Onset: 10-21-2023 Episodic Skin and subcutaneous tissue infections (2 sources) Abscess of skin and/or subcutaneous tissue; Translations: [Cutaneous abscess, unspecified] Onset: 10-21-2023 Episodic Spondylosis; intervertebral disc disorders; other back problems (5 sources) Low back pain; Translations: [Cervical radiculopathy] Onset: 02-11-2021 Episodic Substance-related disorders (14 sources) Smoker; Translations: [Nicotine dependence, cigarettes, uncomplicated] [...] Name Value Interpretation Reference Range Facility ED Clinical Summaryon 2024 ED Clinical Summary ED Clinical Summary [address] [address] ED Clinical Summary Person Information Name: DEVON MATHEW/[facility] Age: 44 Years : 1980 Sex: Male Language: Cook Islander PCP: NONE, XXXX Marital Status: Single Visit Id: Visit Reason: Skin problem - simple; SKIN ISSUE, HARD BUMP IN GROIN AREA, PAIN, REDNESS, SWELLING Speciality: Acuity: 4 Enc Type: Emergency Med Service: Emergency Arrival: 01/16/2025 20:36:38 Discharge: 01/16/2025 21:39:43 LOS: 000 01:03 Checkin: 01/16/2025 20:36:38 Checkout: 01/16/2025 21:39:43 Dispo Type: Home (Routine DC) EVENTS: Event Name Event Status Request Date/Time Start Date/Time Complete Date/Time Arrive Complete 01/16/2025 20:36:38 01/16/2025 20:36:38 01/16/2025 20:36:38 Document Home Meds Request 01/16/2025 20:36:38 Triage Complete 01/16/2025 20:36:38 01/16/2025 20:48:36 01/16/2025 20:48:36 Registration Complete 01/16/2025 20:43:37 01/16/2025 20:43:37 01/16/2025 20:43:37 Reg Complete Request 01/16/2025 20:43:37 Reg Bed Request Complete 01/16/2025 20:43:37 01/16/2025 20:43:37 01/16/2025 20:43:37 Isolation Screening Request 01/16/2025 20:48:36 Bed Assign Complete 01/16/2025 20:48:46 01/16/2025 20:48:46 01/16/2025 20:48:46 Dr Exam Complete 01/16/2025 20:48:46 01/16/2025 20:49:58 01/16/2025 20:49:58 RN Exam Complete 01/16/2025 20:48:46 01/16/2025 21:08:09 01/16/2025 21:08:09 Registration Request 01/16/2025 20:49:58 Meds Admin Complete 01/16/2025 21:19:27 01/16/2025 21:37:08 Discharge Complete 01/16/2025 21:19:32 01/16/2025 21:39:49 01/16/2025 21:39:49 Transfer Complete 01/16/2025 21:39:49 01/16/2025 21:39:49 01/16/2025 21:39:49 ADDRESS: [address] [place] [id number] PHYS DOC NOTES: MEDICAL INFORMATION: Prescriptions Given: New Medications [id number], [address], [place] [id number], [phone] cephalexin (Keflex 500 mg Cap) 1 Capsules By Mouth 4 times a day for 7 Days. Refills: 0. doxycycline (doxycycline hyclate 100 mg Tab) 1 Tablets By Mouth every 12 hours for 7 Days. Refills: 0. Medications to Continue with No Changes Other Medications albuterol (albuterol 0.083% Inh Fatimah 3 mL) 75 mL, 0 Refill(s), INHALE 3 ML EVERY 6 HOURS NEEDED FOR SHORTNESS OF BREATH OR WHEEZING. amlodipine (amLODIPine 10 mg Tab) 1 Tablets By Mouth every day. aspirin (aspirin 81 mg Oral EC Tab) 1 Tablets By Mouth every day. atorvastatin (Lipitor 40 mg Tab) 1 Tablets By Mouth at bedtime. Refills: 1. hydrochlorothiazide-l osartan (hydrochlorothiazide- losartan 12.5 mg-100 mg oral tablet) 1 Tablets By Mouth every day. Refills: 0. insulin glargine (Lantus Solostar Pen 100 units/mL subcutaneous solution) 25 Units Subcutaneous every day. insulin lispro (HumaLOG KwikPen 100 units/mL injectable solution) 7 unit(s) SubCutaneous BID. metformin (metformin 500 mg Tab) 1 Tablets By Mouth 2 times a day. Refills: 0. metoprolol (Metoprolol tartrate 50 mg Tab) 1 Tablets By Mouth 2 times a day. nicotine (nicotine 21 mg/24 hr Transderm ER Film) 1 Patches Transdermal every day. NIFEdipine (NIFEdipine 90 mg ER Tab) 1 Tablets By Mouth every day. PATIENT EDUCATION INFORMATION: Instructions: Skin Abscess Follow up: With: Address: When: Tan Shannon In 3 days 01/19/2025 Comments: Follow-up with wound care physician for repeat evaluation and excision if it truly is a cyst. DIAGNOSIS: Abscess Normal [facility] ED Note-Physicianon 01-17-20 ED Note-Physician ED Note-Physician Basic Information Time Seen: Hitesh Schwartz DO 01/16/2025 20:49 Chief Complaint pt c/o bump on right side of groin near testicle. increased pain, redness, swelling since being seen at [facility] 01/07/25. was placed on antibiotic but did not help - finished antibiotic this morning (amoxicillin) History of Present Illness 44-year-old male to the emergency department chief complaint of abscess. Patient reports in the crease between his scrotum and his leg he has a painful bump. Popped up on 01 07. He was on amoxicillin course has not resolved. He denies any fever, sweats, chills. He reports he has had increasing pain but it has not really changed in size. Review of Systems A 10 point review of systems is negative except as noted above. Medical and Surgical History: Reviewed and noted Social history: Lives at home Tobacco: Denies Physical Exam Vitals & Measurements T: 36.9 ???C(Oral) HR: 104(Peripheral) RR: 18 BP: 172/125 SpO2: 95% HT: 177.80 cm WT: 113.8 kg BMI: 36 VITALS: I have reviewed the triage vital signs. GENERAL: Well developed, well appearing adult in no acute distress. NEURO: Alert and oriented. Moves all extremities. Face is symmetric and expressive. EYES: PERRL. No scleral icterus or conjunctival injection. No discharge. HENT: Normocephalic, atraumatic. Hearing is grossly intact. Nares grossly patent and without discharge. Mucous membranes moist. NECK: No JVD. Patient moves neck without restriction. GI/: Abdomen is soft and non-tender. Normoactive bowel sounds. Just lateral to the scrotum in the inguinal fold there is a quarter sized area of induration that is tender to the touch, small amount of surrounding erythema without warmth. EXTREMITIES: Symmetric muscle bulk. No joint swelling. No clubbing, cyanosis, or deformity. SKIN: Warm and dry. Normal turgor. No rash or lesions appreciated. PSYCH: Mood, affect, and interaction is appropriate to the setting. Procedure Procedure: I&D Indication: Abscess Contraindications: None Risk benefits discussion was had. Verbal consent was obtained for the patient. Area was cleansed and prepped with chlorhexidine. 3 cc of 1% lidocaine with epinephrine were instilled for local anesthesia. An 18-gauge needle was placed on a 10 cc syringe and was inserted into the fluid collection under ultrasound guidance. Approximately 5 cc of purulent fluid were aspirated. There was no further fluid collection on ultrasound imaging. Patient tolerated the procedure well and there are no immediate complications. Dry sterile dressing was placed. Hitesh Schwartz DO, FAAEM Medical Decision Making 44-year-old male to the emergency department chief complaint of cyst in his groin. Vital stable, the patient is afebrile. He is a small area of induration consistent with a matured abscess. There is no further involvement of the groin, does not appear to be a necrotizing soft tissue infection, just a localized abscess/cyst. It seems matured, was visualized under ultrasound and there was a small amount of central fluid. Given the small amount of fluid I believe he is best candidate for aspiration under ultrasound guidance. Successfully aspirated under ultrasound guidance. No further fluid visualized on ultrasound. Patient felt much improved. Will continue Keflex and doxycycline. Wound care referrals given for repeat evaluation. Discussed signs of worsening infection and return precautions. All questions were answered. The patient was discharged home. Assessment/Plan Abscess (L02.91: Cutaneous abscess, unspecified) Orders: cephalexin, 500 mg = 1 cap(s), Cap, Oral, Once, Stop date 01/16/25 21:19:00 EDT, STAT, Start date 01/16/25 21:19:00 EDT, 01/16/25 21:19:00 EDT cephalexin, 500 mg = 1 cap(s), Oral, QID, X 7 day(s), # 28 cap(s), Refills(s) 0, Pharmacy: [facility]/pharmacy #[id number], 177.8, cm, 01/16/25 20:48:00 EDT, Height/Length Dosing, 113.8, kg, 01/16/25 20:48:00 EDT, Weight Dosing doxycycline, 100 mg = 1 cap(s), Cap, Oral, Once, Stop date 01/16/25 21:19:00 EDT, STAT, Start date 01/16/25 21:19:00 EDT doxycycline, 100 mg = 1 tab(s), Oral, q12hr, X 7 day(s), # 14 tab(s), Refills(s) 0, Pharmacy: [facility]/pharmacy #[id number], 177.8, cm, 01/16/25 20:48:00 EDT, Height/Length Dosing, 113.8, kg, 01/16/25 20:48:00 EDT, Weight Dosing Disposition Plan Patient Discharge Condition Stable Discharge Disposition Home Discharge Prescription List Prescriptions doxycycline hyclate 100 mg Tab, 100 mg= 1 tab(s), Oral, q12hr Keflex 500 mg Cap, 500 mg= 1 cap(s), Oral, QID Follow-up With When Contact Information Tan Shannon In 3 days 01/19/2025 EDT Additional Instructions: Follow-up with wound care physician for repeat evaluation and excision if it truly is a cyst. Patient Education Skin Abscess Problem List/Past Medical History Ongoing Acute exacerbation of chronic obstructive airways disease (COPD) BMI 38.0-38.9,adult HTN (hypertension) Incisional hernia Obesity due to excess calorie (more content not included)... Normal [facility] Comment on above: Result Comment: Elec tronically Signed By: Hitesh Schwartz DO\.br\Date and Time Signed: 01/16/25 21:41 EDT ED Patient Summaryon 025 ED Patient Summary ED Patient Summary [address] [address] Patient Discharge Instructions Person Information Name: DEVON MATHEW Age: 44 Years Arrival Date: 01/16/2025 20:36:38 Discharge Diagnosis: Abscess Primary Care Physician: NONE, XXXX Provider Information Primary Provider: Hitesh Schwartz DO Advanced Corporate Account Executive:None The exam and treatment you received in the Emergency Department were for an urgent problem and are not intended as complete care. It is important that you follow up with a doctor, nurse practitioner, or physician???s insurance sales assistant for ongoing care. If your symptoms [...] Address: When: Tan Shannon In 3 days 01/19/2025 Comments: Follow-up with wound care physician for repeat evaluation and excision if it truly is a cyst. In the event that this physician does not participate in your insurance network, please consult with your insurance company to find a nearby participating provider. Patient Education Materials: Skin Abscess A MESSAGE TO ALL PATIENTS REGARDING OPIOIDS PRESCRIPTION OPIOIDS: WHAT YOU NEED TO KNOW Prescription opioids can be used to help relieve ovmqzkem-oj-ihlvxb pain and are often prescribed following a [...] be struggling with addiction, tell your health home care scheduler and ask for guid (more content not included)... Normal [facility] ED Note-Physicianon 08-08-19 ED Note-Physician ED Note-Physician [...] of this. And will provide him with [place] as needed for pain. Discussed with the [...] Discharge Disposition Home Discharge Prescription List Prescriptions [place] 325 mg-5 mg oral tablet, 1 tab(s), Oral, q6hr, PRN Follow-up With When Contact Information Tan Shannon In 3 days 07/20/2024 EST Additional Instructions: Patient Education Hernia, Adult Attestation Patient seen and evaluated by the physician insurance sales assistant. Attending physician was present in the emergency department and supervised care. This visit was performed by both the physician and an APC. I performed all aspects of the MDM as documented. This report was transcribed using voice recognition software. Every effort was made to ensure accuracy, however, inadvertently computerized special delivery messenger mistakes may be present. Appropriate healthcare PPE was used in evaluating this (more content not included)... Normal [facility] Comment on above: Result Comment: Elec tronically Signed By: Kirit Franco PA-C\.br\Date and Time Signed: 07/17/24 20:24 EST\.br\Electronically Co-Signed By: Jamarcus Lerma MD\.br\Date and Time Co-Signed: 08/08/24 10:25 EST Surgical Pathology Reporton 08-05-2024 Surgical Pathology Report [facility] [address] [facility] [place] [address]- Surgical Pathology Report Collected Date/Time: 07/30/2024 10:52 EST Pathologist: Kostas POWELL PhD, Tariq Friedman Received Date/Time: 08/01/2024 07:28 EST Mirtah POWELL, Tan Shannon MD, Tan Costa Surgical [...] a small area of medeiros granular tissue. Medical Lab Technician portion is submitted in three cassettes. (DC) DC:[facility] Microscopic Description Microscopic examination performed unless gross only specified. Normal [facility] Comment on above: Performed By: #### 4 [id number] #### [facility] [address] [place] [address] [place] [address] Main OR Intraoperative Recor don 08-01-2024 Main OR Intraoperative Record Main OR Intraoperative Record Normal [facility] CHEMISTRYOrdered By: Lab ROP User on 07-30-2024 Glucose [Mass/Vol] 216 mg/dL High 55 - 99 mg/dL FT C POC Subsection Comment on above: Result Comment: Dena cee RN/ POC Device SN [id number] Invalid Interpretation Code FT POC Subsection POC User ID [id number] 1 Invalid Interpretation Code [facility] POC Subsection POC Username EDUARD SHEPPARD Invalid Interpretation Code [facility] POC Subsection Capillary Glucose POCon 07-08 Glucose [Mass/Vol] 216 mg/dL High 55-99 [facility] Comment on above: Result Comment: Dena cee RN/ Performed By: #### 2 [id number] ####[facility] [id number] [place] [address] Discharge Instructionson Discharge Instructions Discharge Instructions DEVON [...] Appointment has already been scheduled Where: [facility], [address] [address] [phone] Business (1) Medications What How Much When Why Instructions Next Dose New acetaminophen-hydroco done ([place] 325 mg-5 mg oral tablet) 1 Tablets By Mouth Every 6 hours as needed for as needed for pain Incisional hernia Hernia, umbilical Pickup at [facility]/pharmacy #[id number] Changed insulin glargine (Lantus Solostar Pen 100 [...] Tablets By Mouth Every day Pharmacy Information [facility]/pharmacy #[id number]: [address], [place] [phone] Allergies No Known Medication Allergies Education Materials [...] these instructions at home: Medicines ??? Take vzwe-cqq-edybqnr and prescription medicines only as told by your health care provider. ??? Ask your health care provider if the medicine prescribed to you: ? Requires you to avoid driving or using machinery. ? Can cause constipation. You may need to take these actions to prevent or treat constipation: ? Drink enough fluid to keep your urine pale yellow. ? Take plev-ieh-isaoapi or prescription medicines. ? Eat foods that [...] and water are not available, use hand labor/excavator. ? Change your dressing as told by [...] you to (more content not included)... Normal [facility] Comment on above: Result Comment: Elec tronically Signed By: Maryjane Garcia\.br\Date and Time Signed: 07/30/24 12:11 EST Inpatient Patient Summaryon 07-30-2024 Inpatient Patient Summary Inpatient Patient Summary [place] [id number] [facility] Clinical Discharge Instructions PERSON INFORMATION Name: DEVON MATHEW PHYSICIANS Admitting Physician: Tan Shannon MD Attending Physician: Tan Shannon MD PCP: NONE, XXXX Discharge Diagnosis: Comment: PATIENT EDUCATION INFORMATION Instructions: Laparoscopic Ventral Hernia Repair, Care After; Post Op Patient Instructions - FT (CUSTOM) Medication Leaflets: Follow up: With: Address: When: Tan Shannon [address] [place] [address], [place] [address], [place] [phone] Business (1) Comments: Appointment has already been scheduled MEDICATION LIST New Medications [id number], [address], [place] [id number], [phone] acetaminophen-hydroco done ([place] 325 mg-5 mg oral tablet) 1 Tablets [...] 1 Tablets By Mouth every day. Comment: Normal [facility] Main OR PACU I Recordon 07-08 Main OR PACU I Record Main OR PACU I Rec ord PACU Phase I Document Type FT Summary Primary Physician: Tan Shannon MD Finalized Date/Time: 07/30/24 13:01:09 Pt. Name: DEVON MATHEW/Sex: 1980 Male Med Rec #: [id number] Physician: Tan Shannon MD Financial #: [id number] Pt. Type: A Room/Bed: [facility] Admit/Disch: 07/30/24 07:18:04 - Institution: Case [...] I Outcomes Met? Yes Last Modified By: Yun Galicia RN 07/30/24 13:00:58 Post-Care Text: The patient demonstrates [...] 07/30/24 13:01 Yun Galicia RN 07/30/24 13:01 [facility] Main OR PACU II Recordon Main OR PACU II Record Main OR PACU II Record PACU Phase II Document Type FT Summary Primary Physician: Tan Shannon MD Finalized Date/Time: 07/30/24 13:58:38 Pt. Name: DEVON MATHEW /Sex: 1980 Male Med Rec #: [id number] Physician: Tan Shannon MD Financial #: [id number] Pt. Type: A Room/Bed: Admit/Disch: 07/30/24 07:18:04 [...] Signed By: Maryjane Garcia 07/30/24 13:58 Normal [facility] Main OR Preoperative Recordo n 07-30-2024 Main OR Preoperative Record Main OR Preoperative Record PreOp Document Type FT Summary Primary Physician: Tan Shannon MD Finalized Date/Time: 07/30/24 11:03:14 Pt. Name: DEVON MATHEW/Sex: 1980 Male Med Rec #: [id number] Physician: Tan Shannon MD Financial #: [id number] Pt. Type: A Room/Bed: [facility] Admit/Disch: 07/30/24 07:18:04 - Institution: Case [...] Signed By: Rosy Kong RN 07/30/24 11:03 Normal [facility] Operative Reporton Operative Report Operative Report Indication for Surgery [...] Surgeon(s) Tan Shannon MD (Surgeon - Primary) Can Tester Renetta Locke Anesthesia General Mike Conley CRNA [...] to cart room in stable condition. Normal [facility] Comment on above: Result Comment: Elec tronically Signed By: Mirtha POWELL, Tan Ramirez\.br\Date and Time Signed: 07/30/24 12:10 EST Outpatient Surgery Discharge Instructionon 07-30-2024 Outpatient Surgery Discharge Instruction Outpatient Surgery Discharge Instruction [place] [id number] Patient Discharge Instructions PERSON INFORMATION Name: DEVON [...] Follow up: With: Address: When: Tan Shannon [address] [place] [address] [place], [place] [address], [address] [phone] Business (1) Comments: Appointment has already been scheduled Pharmacy Information: You may receive a survey from [employer] asking you to rate your care experience. Your feedback is important and will help us understand what we do well and how we can improve the quality of care we provide to you, your loved ones and our community. It???s an honor to serve you. Thank you for choosing [facility] HERE ARE THE MEDICATION CHANGES THAT OCCURRED DURING YOUR HOSPITAL STAY New Medications [id number], [address] [facility] [place], [place] [id number], [phone] acetaminophen-hydroco done ([place] 325 mg-5 mg oral tablet) 1 Tablets [...] these instructions at home: Medicines ??? Take pnnt-gzj-mvhsvcn and prescription medicines only as told by your health care provider. ??? Ask your health care provider if the medicine prescribed to you: ? Requires you to avoid driving or using machinery. ? Can cause constipation. You may need to take these actions to prevent or treat constipation: ? Drink enough fluid to keep your urine pale yellow. ? Take aiay-xah-kcc (more content not included)... Normal 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 male here for ER follow up Patient presented to [facility] ER on 07/17/[address] Ab/Pel w/ Con done 07/17/24 - supraumbilical and periumbilical hernia Today patient states the area is painful s/p cholecystectomy 4-5 years prior at [facility] in [place] s/p appendectomy done at [facility] in [place] more than 15 years ago History of [...] E&M of New Patient Moderate 45-59 Min 59850 Hospital-based Procedure Pre-Surgery Testing per Anesthesia 2. BMI 38.0-38.9,adult (Z68.38: Body mass index [BMI] 38.0-38.9, adult) Education provided Ordered: E&M of New Patient Moderate 45-59 Min 23412 Hospital-based Procedure Pre-Surgery Testing per Anesthesia 3. Obesity due to excess calories (E66.09: Other obesity due to excess calories) As above Ordered: E&M of New Patient Moderate 45-59 Min 14123 Hospital-based Procedure Pre-Surgery Testing per Anesthesia 4. [...] resources and/or free telephone support such as iversity. Prescription medication to help smoking cessation available on request from PCP. Ordered: E&M of New Patient Moderate 45-59 Min 44804 Hospital-based Procedure Pre-Surgery Testing per Anesthesia 5. Type II diabetes mellitus uncontrolled (E11.65: Type 2 diabetes mellitus with hyperglycemia) Hold metformin morning of procedure Ordered: E&M of New Patient Moderate 45-59 Min 76022 Hospital-based Procedure Pre-Surgery Testing per Anesthesia Portions of this record may have been created with voice recognition artificial intelligence software, specifically 3[employer], [employer] and or MashMango. Substitutions may have occurred due to the [...] cigarettes(less than (more content not included)... Normal [facility] Comment on above: Result Comment: Elec tronically Signed By: Mirtha POWELL, Tan Lechuga\Date and Time Signed: 07/26/24 09:07 EST BMPon 07-17-2024 Anion gap [Moles/Vol] 12 mmol/L Normal 6-16 [facility] Comment on above: Performed By: #### 2 [id number] #### [facility] [address] [place] [address] Calcium [Mass/Vol] 9.2 mg/dL Normal 8.9-11.1 [facility] Comment on above: Performed By: #### 2 252763 #### [facility] [address] [place] [address] Chloride [Moles/Vol] 97 mmol/L Low 101-111 [facility] Comment on above: Performed By: #### 2 [id number] #### [facility] [address] [place] [address] CO2 [Moles/Vol] 27 mmol/L Normal 21-31 [facility] Comment on above: Performed By: #### 2 335295 #### [facility] [address] [place] [address] Creatinine [Mass/Vol] 0.6 mg/dL Normal 0.5-1.3 [facility] Comment on above: Performed By: #### 2 679633 #### [facility] [address] [place] [address] Glucose [Mass/Vol] 301 mg/dL High 55-199 [facility] Comment on above: Performed By: #### 2 233434 #### [facility] [address] [place] [address] Potassium [Moles/Vol] 3.8 mmol/L Normal 3.5-5.3 [facility] Comment on above: Performed By: #### 2 273914 #### [facility] [address] [place] [address] Sodium [Moles/Vol] 132 mmol/L Low 135-145 [facility] Comment on above: Performed By: #### 2 084401 #### [facility] [address] [place] [address] Urea nitrogen [Mass/Vol] 10 mg/dL Normal 5-21 [facility] Comment on above: Performed By: #### 2 682257 #### [facility] [address] [place] [address] Urea nitrogen/Creatinine [Mass ratio] 17 No Units Normal 10-20 [facility] Comment on above: Performed By: #### 2 224043 #### [facility] [address] [place] [address] CBC w/ Auto Diffon 4 Basophils/100 WBC (Bld) 0.8 % Normal 0.0-2.0 [facility] Comment on above: Performed By: #### 2 828556 #### [facility] [address] [place] [address] Basophils/Leukocytes Auto (Bld) [Pure # fraction] 0.1 E9/L Normal 0.0-0.2 [facility] Comment on above: Performed By: #### 2 334460 #### [facility] [address] [place] [address] Eosinophils (Bld) [#/Vol] 0.2 E9/L Normal 0.0-0.5 [facility] Comment on above: Performed By: #### 2 032075 #### [facility] [address] [place] [address] Eosinophils/100 WBC (Bld) 1.8 % Normal 0.0-8.0 [facility] Comment on above: Performed By: #### 2 915873 #### [facility] [address] [place] [address] Erythrocyte distribution width (RBC) [Ratio] 13.2 % Normal 10.9-14.2 [facility] Comment on above: Performed By: #### 2 341644 #### [facility] [address] [place] [address] Hematocrit (Bld) [Volume fraction] 43.8 % Normal 37.7-49.0 [facility] Comment on above: Performed By: #### 2 852295 #### [facility] [address] [place] [address] Hemoglobin (Bld) [Mass/Vol] 15.4 g/dL Normal 13.5-17.5 [facility] Comment on above: Performed By: #### 2 699630 #### [facility] [address] [place] [address] Lymphocytes (Bld) [#/Vol] 2.9 E9/L Normal 1.0-4.0 [facility] Comment on above: Performed By: #### 2 670782 #### [facility] [address] [place] [address] Lymphocytes/100 WBC (Bld) 24.3 % Normal 14.0-50.0 [facility] Comment on above: Performed By: #### 2 694158 #### [facility] [address] [place] [address] MCH (RBC) [Entitic mass] 29.4 pg Normal 27.0-34.0 [facility] Comment on above: Performed By: #### 2 820144 #### [facility] [address] [place] [address] MCHC (RBC) [Mass/Vol] 35.2 g/dL Normal 31.4-36.0 [facility] Comment on above: Performed By: #### 2 628194 #### [facility] [address] [place] [address] MCV (RBC) [Entitic vol] 83.6 fL Normal 80.0-100.0 [facility] Comment on above: Performed By: #### 2 722279 #### [facility] [address] [place] [address] Monocytes (Bld) [#/Vol] 0.6 E9/L Normal 0.2-1.0 [facility] Comment on above: Performed By: #### 2 908935 #### [facility] [address] [place] [address] Neutrophils (Bld) [#/Vol] 8.2 E9/L High 2.0-7.5 [facility] Comment on above: Performed By: #### 2 864382 #### [facility] [address] [place] [address] Neutrophils/100 WBC (Bld) 67.9 % Normal 36.0-75.0 [facility] Comment on above: Performed By: #### 2 128786 #### [facility] [address] [place] [address] Platelet mean volume (Bld) [Entitic vol] 9.5 fL Normal 6.4-10.8 [facility] Comment on above: Performed By: #### 2 067330 #### [facility] [address] [place] [address] Platelets (Bld) [#/Vol] 259.0 E9/L Normal 150.0-500.0 [facility] Comment on above: Performed By: #### 2 521270 #### [facility] [address] [place] [address] RBC (Bld) [#/Vol] 5.2 E12/L Normal 4.3-5.9 [facility] Comment on above: Performed By: #### 2 157615 #### [facility] [address] [place] [address] WBC corrected for nucl RBC Auto (Bld) [#/Vol] 12.1 E9/L High 4.0-11.0 [facility] Comment on above: Performed By: #### 2 301801 #### [facility] [address] [place] [address] CT Abdomen/Pelvis w/ Contras ton 07-17-2024 CT [...] 300 Contrast amount in ml's: 100 Normal [facility] ED Clinical Summaryon 2023 ED Clinical Summary ED Clinical Summary [place] [id number] ED Clinical Summary Person Information Name: DEVON MATHEW/[facility] Age: 44 Years : 1980 Sex: Male Language: Cook Islander PCP: NONE, XXXX Marital Status: Single Visit [...] 07/17/2024 16:45:40 07/17/2024 16:45:40 07/17/2024 16:45:40 ADDRESS: [address] [place] [phone] PHYS DOC NOTES: MEDICAL INFORMATION: Prescriptions Given: New Medications [facility], [address], [place] [id number], [phone] acetaminophen-hydroco done ([place] 325 mg-5 mg oral tablet) 1 Tablets [...] Abdominal pain; Supraumbilical hernia without obstruction Normal [facility] ED Patient Summaryon ED Patient Summary ED Patient Summary [address] [address] Patient Discharge Instructions Person Information Name: DEVON MATHEW Age: 44 Years Arrival Date: 07/17/2024 13:46:45 Discharge Diagnosis: Abdominal pain; Supraumbilical hernia without obstruction Primary Care Physician: NONE, XXXX Provider Information Primary Provider: Advanced Corporate Account Executive:Salvador RUSHING, Kirit Jackson The exam and treatment you received in the Emergency Department were for an urgent problem and are not intended as complete care. It is important that you follow up with a doctor, nurse practitioner, or physician???s insurance sales assistant for ongoing care. If your symptoms [...] opioids can be used to help relieve vfvdxrid-bo-jaukzk pain and are often prescribed following a [...] be struggling with addiction, tell your health home care scheduler and ask for guidance or call [facility]???S National Helpline at 9-505-702-ROS (more content not included)... Normal [facility] Extra Blueon 07-17-2024 Tube Collected Plasma Yes Invalid Interpretation Code [facility] Comment on above: Performed By: #### 1 [id number] #### [facility] [address] [place] [address] Hep Func Panelon 07-17-2024 Albumin [Mass/Vol] 4.1 g/dL Normal 3.3-5.0 [facility] Comment on above: Performed By: #### 2 216858 #### [facility] [address] [place] [address] Albumin/Globulin (S) [Mass conc ratio] 1.3 Normal 1.1-2.2 [facility] Comment on above: Performed By: #### 2 382317 #### [facility] [address] [place] [address] ALP [Catalytic activity/Vol] 88 Int._Unit/L Normal 21-98 [facility] Comment on above: Performed By: #### 2 230872 #### [facility] [address] [place] [address] ALT No additional P-5'-P [Catalytic activity/Vol] 23 Int._Unit/L Normal 6-46 [facility] Comment on above: Performed By: #### 2 382337 #### [facility] [address] [place] [address] AST [Catalytic activity/Vol] 13 Int._Unit/L Normal 5-43 [facility] Comment on above: Performed By: #### 2 188823 #### [facility] [address] [place] [address] Bilirubin [Mass/Vol] 0.5 mg/dL Normal 0.0-1.1 [facility] Comment on above: Performed By: #### 2 844682 #### [facility] [address] [place] [address] Bilirubin.direct [Mass/Vol] 0.1 mg/dL Normal 0.0-0.4 [facility] Comment on above: Performed By: #### 2 120362 #### [facility] [address] [place] [address] Bilirubin.indirect [Mass or moles/Vol] 0.4 mg/dL Normal 0.1-0.9 [facility] Comment on above: Performed By: #### 2 295264 #### [facility] [address] [place] [address] Globulin (S) [Mass/Vol] 3.1 g/dL Normal 1.4-4.0 [facility] Comment on above: Performed By: #### 2 784510 #### [facility] [address] [place] [address] Protein [Mass/Vol] 7.2 g/dL Normal 6.0-7.8 [facility] Comment on above: Performed By: #### 2 878948 #### [facility] [address] [place] [address] Lipase Levelon 07-17-2024 Lipase [Catalytic activity/Vol] 6 U/L Low 13-58 [facility] Comment on above: Performed By: #### 2 957660 #### [facility] [address] [place] [address] eGFRon 07-17-2024 eGFR 123 mL/min/1.73 m2 Normal >=59 [facility] Comment on above: Performed By: #### 1 [id number] #### [facility] [address] [place] [address] ED Note-Physicianon 04-12-20 24 ED Note-Physician ED [...] neurovascularly intact, radial pulse palpable, 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 Normal [facility] Comment on above: Result Comment: Elec tronically Signed By: Nadine Concepcion PA-C\.br\Date and Time Signed: 04/09/24 15:57 EDT\.br\Electronically Co-Signed By: Tan Dempsey DO\.br\Date and Time Co-Signed: 04/12/24 07:32 EDT BMPon 04-09-2024 Anion gap [Moles/Vol] 11 mmol/L Normal 6-16 [facility] Comment on above: Performed By: #### 2 345774 #### [facility] [address] [place] [address] Calcium [Mass/Vol] 9.2 mg/dL Normal 8.9-11.1 [facility] Comment on above: Performed By: #### 2 631208 #### [facility] [address] [place] [address] Chloride [Moles/Vol] 100 mmol/L Low 101-111 [facility] Comment on above: Performed By: #### 2 116155 #### [facility] [address] [place] [address] CO2 [Moles/Vol] 26 mmol/L Normal 21-31 [facility] Comment on above: Performed By: #### 2 788480 #### [facility] [address] [place] [address] Creatinine [Mass/Vol] 0.7 mg/dL Normal 0.5-1.3 [facility] Comment on above: Performed By: #### 2 217453 #### [facility] [address] [place] [address] Glucose [Mass/Vol] 147 mg/dL Normal 55-199 [facility] Comment on above: Performed By: #### 2 604147 #### [facility] [address] [place] [address] Potassium [Moles/Vol] 3.9 mmol/L Normal 3.5-5.3 [facility] Comment on above: Performed By: #### 2 181546 #### [facility] [address] [place] [address] Sodium [Moles/Vol] 133 mmol/L Low 135-145 [facility] Comment on above: Performed By: #### 2 655919 #### [facility] [address] [place] [address] Urea nitrogen [Mass/Vol] 10 mg/dL Normal 5-21 [facility] Comment on above: Performed By: #### 2 028117 #### [facility] [address] [place] [address] Urea nitrogen/Creatinine [Mass ratio] 14 No Units Normal 10-20 [facility] Comment on above: Performed By: #### 2 344994 #### [facility] [address] [place] [address] CBC w/ Auto Diffon 4 Basophils/100 WBC (Bld) 1.1 % Normal 0.0-2.0 [facility] Comment on above: Performed By: #### 2 509581 #### [facility] [address] [place] [address] Basophils/Leukocytes Auto (Bld) [Pure # fraction] 0.1 E9/L Normal 0.0-0.2 [facility] Comment on above: Performed By: #### 2 [id number] #### [facility] [address] [place] [address] Eosinophils (Bld) [#/Vol] 0.2 E9/L Normal 0.0-0.5 [facility] Comment on above: Performed By: #### 2 [id number] #### [facility] [address] [place] [address] Eosinophils/100 WBC (Bld) 1.8 % Normal 0.0-8.0 [facility] Comment on above: Performed By: #### 2 [id number] #### [facility] [address] [place] [address] Erythrocyte distribution width (RBC) [Ratio] 14.1 % Normal 10.9-14.2 [facility] Comment on above: Performed By: #### 2 [id number] #### [facility] [address] [place] [address] Hematocrit (Bld) [Volume fraction] 43.9 % Normal 37.7-49.0 [facility] Comment on above: Performed By: #### 2 [id number] #### [facility] [address] [place] [address] Hemoglobin (Bld) [Mass/Vol] 15.2 g/dL Normal 13.5-17.5 [facility] Comment on above: Performed By: #### 2 [id number] #### [facility] [address] [place] [address] Lymphocytes (Bld) [#/Vol] 2.9 E9/L Normal 1.0-4.0 [facility] Comment on above: Performed By: #### 2 [id number] #### [facility] [address] [place] [address] Lymphocytes/100 WBC (Bld) 23.3 % Normal 14.0-50.0 [facility] Comment on above: Performed By: #### 2 130256 #### [facility] [address] [place] [address] MCH (RBC) [Entitic mass] 29.0 pg Normal 27.0-34.0 [facility] Comment on above: Performed By: #### 2 [id number] #### [facility] [address] [place] [address] MCHC (RBC) [Mass/Vol] 34.6 g/dL Normal 31.4-36.0 [facility] Comment on above: Performed By: #### 2 [id number] #### [facility] [address] [place] [address] MCV (RBC) [Entitic vol] 83.8 fL Normal 80.0-100.0 [facility] Comment on above: Performed By: #### 2 [id number] #### [facility] [address] [place] [address] Monocytes (Bld) [#/Vol] 0.7 E9/L Normal 0.2-1.0 [facility] Comment on above: Performed By: #### 2 [id number] #### [facility] [address] [place] [address] Neutrophils (Bld) [#/Vol] 8.4 E9/L High 2.0-7.5 [facility] Comment on above: Performed By: #### 2 743361 #### [facility] [address] [place] [address] Neutrophils/100 WBC (Bld) 68.2 % Normal 36.0-75.0 [facility] Comment on above: Performed By: #### 2 281113 #### [facility] [address] [place] [address] Platelet 283.0 E9/L Normal 150.0-500.0 [facility] Comment on above: Performed By: #### 2 241254 #### [facility] [address] [place] [address] Platelet mean volume (Bld) [Entitic vol] 9.4 fL Normal 6.4-10.8 [facility] Comment on above: Performed By: #### 2 845479 #### [facility] [address] [place] [address] RBC (Bld) [#/Vol] 5.2 E12/L Normal 4.3-5.9 [facility] Comment on above: Performed By: #### 2 663666 #### [facility] [address] [place] [address] WBC corrected for nucl RBC Auto (Bld) [#/Vol] 12.3 E9/L High 4.0-11.0 [facility] Comment on above: Performed By: #### 2 [id number] #### [facility] [address] [place] [address] CHEMISTRYOrdered By: SYSTEM SYSTEM on 04-09-2024 Troponin [...] Sensitivity Troponin I Instructions For Use, [facility] [place], March 2018) Anion gap [Moles/Vol] 11 mmol/L [...] Sensitivity Troponin I Instructions For Use, [facility] [place], March 2018) Urea nitrogen [Mass/Vol] 10 mg/dL Normal 5 - 21 mg/dL Remisol Chem Urea nitrogen/Creatinine [Mass ratio] 14 mg/mg Normal 10 - 20 Remisol Chem COAGULATIONOrdered By: Yash davy Jarrett on 04-09-2024 aPTT Coag (PPP) [Time] 33.9 s Normal 25.1 - 36.5 second(s) [facility] Comment on above: Interpretive Data: [...] the same coagulation reagent and instrumentation as [facility]. Currently there are no coagulation studies available worldwide for children to 14 days, and no normal ranges. Heparin therapeutic range (represented by Anti-Factor Xa activity of 0.2 - 0.4 U/mL) corresponds to PTT of 56.6 - 109.0 sec. INR Coag (PPP) [Relative time] 1.02 {INR} Invalid Interpretation Code [facility] Comment on above: Interpretive Data: I NR results are specifically intended to assess patients stabilized on long-term Anticoagulation therapy suggested INR s Less Intensive Anticoagulation 2.0 3.0 Conventional Range 3.0 4.5 PT Coag (PPP) [Time] 11.4 s Normal 9.4 - 1 2.5 second(s) [facility] Comment on above: Interpretive Data: [...] the same coagulation reagent and instrumentation as [facility]. Currently there are no coagulation studies available worldwide for children to 14 days, and no normal ranges. CRPon 04-09-2024 CRP [Mass/Vol] 0.8 mg/dL Normal <=1.9 [facility] Comment on above: Performed By: #### 2 [id number] #### [facility] [address] [place] [address] CT Spine Cervical w/o Contra ston 04-09-2024 [...] MD Transcribed by: ALEJANDRA Technologist: ANA [facility] ED Clinical Summaryon 2023 ED Clinical Summary ED Clinical Summary [address] [address] ED Clinical Summary Person Information Name: DEVON MATHEW/NewNohemi Age: 43 Years : 1980 Sex: Male Language: Cook Islander PCP: NONE, XXXX Marital Status: Single Visit [...] 04/09/2024 16:17:04 04/09/2024 16:17:04 04/09/2024 16:17:04 ADDRESS: [address] [place] [id number] PHYS DOC NOTES: MEDICAL INFORMATION: Prescriptions Given: New Medications [id number], [address], [place] [id number], [phone] acetaminophen-oxycodo ne (Percocet 5 mg-325 mg oral [...] day. PATIENT EDUCATION INFORMATION: Instructions: Cervical Radiculopathy, Mjvp-vy-Jkoa Follow up: With: Address: When: Anuradha Castrejonker [address] [place], [place] [id number] [facility] (1) In 3 days 04/12/2024 Comments: Call to schedule a follow-up appointment with the family physician for further management of care. Use the Percocet as needed for pain management. Take the prednisone as prescribed. Return to the ED with any worsening symptoms. DIAGNOSIS: Radiculopathy of cervical region Normal [facility] ED Patient Summaryon 024 ED Patient Summary ED Patient Summary [place] [id number] Patient Discharge Instructions Person Information Name: DEVON MATHEW Age: 43 Years [facility]: [id number] Arrival Date: 04/09/2024 12:49:26 Discharge Diagnosis: Radiculopathy of cervical region Primary Care Physician: NONE, XXXX Provider Information Primary Provider: Tan Dempsey DO Advanced Corporate Account Executive:Nadine Concepcion PA-C The exam and treatment you received in the Emergency Department were for an urgent problem and are not intended as complete care. It is important that you follow up with a doctor, nurse practitioner, or physician?s insurance sales assistant for ongoing care. If your symptoms become worse or you do not improve as expected and you are unable to reach your usual health care provider, you should return to the Emergency Department. We are available 24 hours a day. DEVON MATHEW has been given the following list of patient education materials, prescriptions and follow-up instructions: Follow-up Instructions: With: Address: When: Anuradha Yolette [address], [facility] C, [facility] [address] [place], [place] [id number] [facility] () In 3 days 04/12/2024 Comments: Call [...] participating provider. Patient Education Materials: Cervical Radiculopathy, Tiyw-qt-Aptq A MESSAGE TO ALL PATIENTS REGARDING OPIOIDS PRESCRIPTION OPIOIDS: WHAT YOU NEED TO KNOW Prescription opioids can be used to help relieve optvzkhs-sv-gtgztv pain and are often prescribed following a [...] (www.fda.gov/Drugs/Re sourcesFor (more content not included)... Normal [facility] HEMATOLOGYOrdered By: SYSTEM SYSTEM on 04-09-2024 Basophils/100 [...] 11.0 E9/L Remisol Heme HEMATOLOGYOrdered By: Moe santana Jarrett on 04-09-2024 ESR (Bld) [Velocity] 9 mm/h Normal 0 - 19 mm/hr [facility] HemeAutoSS Magnesiumon 04-09-2024 Magnesium [Mass/Vol] 1.8 mg/dL Normal 1.3-2.4 [facility] Comment on above: Performed By: #### 2 [id number] #### [facility] [address] [place] [address] PT & PTTon 04-09-2024 aPTT Coag (PPP) [Time] 33.9 second(s) Normal 25.1-36.5 [facility] Comment on above: Result Comment: Para meter [...] the same coagulation reagent and instrumentation as [facility]. Currently there are no coagulation studies available worldwide for children to 14 days, and no normal ranges. Heparin therapeutic range (represented by Anti-Factor Xa activity of 0.2 - 0.4 U/mL) corresponds to PTT of 56.6 - 109.0 sec. Performed By: #### 1 [id number] #### [facility] [address] [place] [address] INR Coag (PPP) [Relative time] 1.02 {INR} Invalid Interpretation Code [facility] Comment on above: Result Comment: INR results are specifically intended to assess patients stabilized on long-term Anticoagulation therapy suggested INR?s ?Less Intensive Anticoagulation? 2.0 ? 3.0 Conventional Range 3.0 ? 4.5 Performed By: #### 1 [id number] #### [facility] [address] [place] [address] PT Coag (PPP) [Time] 11.4 second(s) Normal 9.4-12.5 [facility] Comment on above: Result Comment: 15 d [...] the same coagulation reagent and instrumentation as [facility]. Currently there are no coagulation studies available worldwide for children to 14 days, and no normal ranges. Performed By: #### 1 [id number] #### [facility] [address] [place] [address] Sed Rate Automatedon 024 ESR (Bld) [Velocity] 9 mm/h Normal 0-19 [facility] Comment on above: Performed By: #### 1 [id number] #### [facility] [address] [place] [address] Troponin 0 Hr.on 04-09-2024 Troponin HS 7.00 pg/mL Low 15.90-38.40 [facility] Comment on above: Result Comment: The 95% CI (Confidence Interval) PPV (Positive Predictive Value) for myocardial infarction in females is 38 pg/mL, in males 51 pg/mL. The results should be used in conjunction with clinical conditions of myocardial infarction. (Access High Sensitivity Troponin I Instructions For Use, [facility] [place], March 2018) Performed By: #### 1 [id number] #### [facility] [address] [place] [address] Troponin 1 Hr.on 04-09-2024 Troponin HS 7.00 pg/mL Low 15.90-38.40 [facility] Comment on above: Order Comment: Due a t 1431 Result Comment: The 95% CI (Confidence Interval) PPV (Positive Predictive Value) for myocardial infarction in females is 38 pg/mL, in males 51 pg/mL. The results should be used in conjunction with clinical conditions of myocardial infarction. (Access High Sensitivity Troponin I Instructions For Use, Jesus [place]af[place], March 2018) Performed By: #### 1 [id number] #### [facility] [address] [place] [address] XR Chest Single Viewon 04-09 XR Chest [...] mGy = na DAP = na Normal [facility] eGFRon 04-09-2024 eGFR 118 mL/min/1.73 m2 Normal >=59 [facility] Comment on above: Order Comment: Order added by Discern Expert. Performed By: #### 1 [id number] #### [facility] [address] [place] [address] ED Clinical Summaryon 2023 ED Clinical Summary ED Clinical Summary [address] [address] ED Clinical Summary Person Information Name: DEVON MATHEW/[facility] Age: 43 Years : 1980 Sex: Male Language: Cook Islander PCP: AMOL HERNANDEZ Marital Status: Single Visit [...] 04/04/2024 14:43:00 04/04/2024 14:43:00 04/04/2024 14:43:00 ADDRESS: [address] [facility] [id number] PHYS DOC NOTES: MEDICAL INFORMATION: Prescriptions Given: New Medications [id number], [address] [place], [place] [id number], [phone] methocarbamol (Robaxin-750 oral tablet) 2 Tablets By [...] Follow up: With: Address: When: Peter Gastelum [address] [place] [id number] Yorder (1) In 3 days 04/07/2024 DIAGNOSIS: Ganglion cyst of wrist Normal [facility] ED Note-Physicianon 04-04-20 ED Note-Physician ED Note-Physician [...] day(s), # 18 tab(s), Refills(s) 0, Pharmacy: [facility]/pharmacy #[id number], 177.1, cm, 04/04/24 12:32:00 EDT, Height/Length Dosing, 124.7, kg, 04/04/24 12:32:00 EDT, Weight Dosing naproxen, 500 mg = 1 tab(s), Oral, BID, PRN for pain, # 20 tab(s), Refills(s) 0, Pharmacy: [facility]/pharmacy #[id number], 177.1, cm, 04/04/24 12:32:00 EDT, [...] TID Follow-up With When Contact Information Peter Nirav In 3 days 04/07/2024 EDT [address] [place] [id number] Biologist Yorder (1) Additional Instructions: Patient Education Radial Nerve [...] made to ensure accuracy, however, inadvertently computerized special delivery messenger mistakes may be present. Appropriate healthcare PPE [...] Tobacco Use:. (more content not included)... Normal [facility] Comment on above: Result Comment: Elec tronically Signed By: Reza Arrington PA-C\.br\Date and Time Signed: 04/04/24 14:38 EDT\.br\Electronically Co-Signed By: John Saldana M.D.\.br\Date and Time Co-Signed: 04/04/24 15:04 EDT ED Patient Summaryon 024 ED Patient Summary ED Patient Summary [address] [address] Patient Discharge Instructions Person Information Name: DEVON MATHEW Age: 43 Years Arrival Date: 04/04/2024 12:18:09 Discharge Diagnosis: Ganglion cyst of wrist Primary Care Physician: AMOL HERNANDEZ Provider Information Primary Provider: John Saldana M.D. Advanced Corporate Account Executive:Reza Arrington PA-C The exam and treatment you received in the Emergency Department were for an urgent problem and are not intended as complete care. It is important that you follow up with a doctor, nurse practitioner, or physician?s insurance sales assistant for ongoing care. If your symptoms [...] Follow-up Instructions: With: Address: When: Peter Gastelum [address] [place] [address] Business (1) In 3 days 04/07/2024 In the event that this physician does not participate in your insurance network, please consult with your insurance company to find a nearby participating provider. Patient Education Materials: Radial Nerve Palsy; Ganglion Cyst A MESSAGE TO ALL PATIENTS REGARDING OPIOIDS PRESCRIPTION OPIOIDS: WHAT YOU NEED TO KNOW Prescription opioids can be used to help relieve cgjofzod-vt-agbwrp pain and are often prescribed following a [...] be struggling with addiction, tell your health home care scheduler and ask for guidance or call [facility]?S National Helpline at [phone] (more content not included)... Normal [facility] Insurance Correspondence Off ice11-16-2023 Insurance Correspondence Office [id number] [id number]# 1.00TIFF [facility] XR CHEST 2 VWSon 10-30-2023 XR CHEST 2 VWS XR CHEST 2 VWS PA and lateral chest: HISTORY: Shortness of breath and cough. 2 views of the chest are obtained. Cardiac and mediastinal contours are within normal limits. Clear. There is no vascular congestion or effusion. Osseous structures appear intact. IMPRESSION: No acute findings. Finalized by Saagr Mario MD on 10/30/2023 11:17 [facility] Coding Queryon 10-29-2023 Coding Query - From: Chaparrita Irvin RN To: Daron SIFUENTES MD; Sent: 10/24/2023 14:37:34 EDT ! Subject: Coding Query Due Date/Time: 10/25/2023 14:37:00 EDT Caller Name: DEVON MATHEW; Caller Number: H Documentation per a new home sales consultant in the medical record indicates this [...] judgment of the documented diagnoses by the new home sales consultant, do you agree with the diagnosis? [___]Yes, I agree with the diagnosis documented by the new home sales consultant. [___]No, I do not agree with the diagnosis documented by the new home sales consultant. Reason: [___]Other: In responding to this request, please exercise your independent professional judgement. The fact that a question is asked does not imply that any particular answer is desired or expected. Thank you!chaparrita [phone] From: Daron SIFUENTES MD To: Brandee JACOBS, Chaparrita Coleman; Sent: 10/29/2023 12:42:17 EDT Subject: RE: Coding Query Caller Name: DEVON MATHEW; Caller Number: H yes i gree Normal [facility] Echocardiographyon Echocardiography [id number]# 1.00TIFF Normal [facility] Stress EKG Tracingson 2023 Stress EKG Tracings [id number]# 1.00TIFF Normal [facility] MRSA Screenon 10-24-2023 MRSA DNA FERMIN+probe Ql (Unsp spec) Microbiology PROCEDURE: MRSA Screen [R1] SOURCE: Nasal BODY SITE: COLLECTED DATE/TIME: 10/22/2023 00:48 EDT RECEIVED DATE/TIME: 10/22/2023 03:08 EDT START DATE/TIME: 10/22/2023 03:09 EDT FREE TEXT SOURCE: Vickie MEANS DO, DO, Ronobir R FINAL REPORTS Final Report [] Verified Date/Time: 10/24/2023 11:01 EDT MRSA Negative. Performing Locations R1: This test was performed at: [facility], [address] [place] [address], [address] , [place], Normal [facility] Comment on above: Performed By: #### 2 [id number] #### [facility] [address] [place] [address] CHEMISTRYOrdered By: Lab ROP User on 10-23-2023 Glucose [Mass/Vol] 271 mg/dL High 55 - 99 mg/dL FTM C POC Subsection Comment on above: Result Comment: Dena cee RN/ POC Device SN [id number] 1 Invalid Interpretation Code [facility] POC Subsection POC User ID [id number] 1 Invalid Interpretation Code [facility] POC Subsection POC Username BERONICA PATINO Invalid Interpretation Code [facility] POC Subsection Glucose [Mass/Vol] 279 mg/dL High 55 - 99 mg/dL F[facility] C POC Subsection Comment on above: Result Comment: Dena cee RN/ POC Device SN [id number] 1 Invalid Interpretation Code [facility] POC Subsection POC User ID [id number] 1 Invalid Interpretation Code [facility] POC Subsection POC Username PATINOJUDYIA Invalid Interpretation Code [facility] POC Subsection CHEMISTRYOrdered [...] 10-05 Glucose [Mass/Vol] 271 mg/dL High 55-99 [facility] Comment on above: Result Comment: Dena cee RN/ Performed By: #### 1 [id number] #### [facility] [address] [place] [address] Glucose [Mass/Vol] 279 mg/dL High 55-99 [facility] Comment on above: Result Comment: Dena cee RN/ Performed By: #### 2 [id number] #### [facility] [address] [place] [address] Discharge Instructionson Discharge Instructions [id number]# 1.00TIFF Normal [facility] Discharge Note-Nursingon Discharge Note-Nursing DEVON MATHEW :1980 [...] Pending Diagnostic Test Results None Pharmacy Information [facility] New Follow Up Appointments after Discharge Follow Up with HATTIE SHANE When: Where: [address] [place] [address] Follow Up with MENDY COOK When: Where: [address] [place] [address]- Business (1) Medications What How Much When Instructions Next Dose New aspirin (aspirin 81 mg Oral EC Tab) 1 Tablets By Mouth Every day 10/24/23 New atorvastatin (Lipitor 40 mg Tab) 1 Tablets By Mouth At bedtime Refills: 1 Pickup at [facility]/pharmacy #[id number] 10/23/23 @9pm New doxycycline (doxycycline hyclate 100 mg Cap) 1 Capsules By Mouth 2 times a day Pickup at [facility]/pharmacy #6177 10/23/23 @9pm New hydrochlorothiazide-l osartan (hydrochlorothiazide- losartan 12.5 mg-100 mg oral tablet) 1 Tablets By Mouth Every day Pickup at [facility]/pharmacy #6177 10/24/23 New metformin (metformin 500 mg Tab) 1 Tablets By Mouth 2 times a day Pickup at [facility]/pharmacy #6177 10/23/23 @9pm Unchanged amlodipine (amLODIPine 10 mg Tab) 1 Tablets By Mouth Every day 10/24/23 Unchanged metoprolol (Metoprolol tartrate 50 mg Tab) 1 Tablets By Mouth 2 times a day 10/23/23 @9pm Unchanged NIFEdipine (NIFEdipine 90 mg ER Tab) 1 Tablets By Mouth Every day 10/24/23 Pharmacy Information [facility]/pharmacy #[id number]: [address], [place] [phone] Test Results CBC BMP WBC: 15.1 E9/L [...] also c (more content not included)... Normal [facility] HEMATOLOGYOrdered By: SYSTEM SYSTEM on 10-23-2023 WBC corrected for nucl RBC Auto (Bld) [#/Vol] 15.1 E9/L High 4.0 - 11.0 E9/L Remisol Heme Inpatient Clinical Summaryon 10-23-2023 Inpatient Clinical Summary [address] [address] Clinical Summary Person Information: Name: DEVON MATHEW Age: 43 Years : 1980 Sex: Male PCP: HATTIE SHANE CNP Marital Status: Single Race: White Ethnicity: Non- or Language: [place] Islander Visit Id: Visit Reason: Increased blood sugar; Fever; Abscess - axilla; BOILS ALL OVER, FEVERS, BLURRY VISION Speciality: Acuity: Enc Type: Inpatient Med Service: Medical Arrival: 10/21/2023 18:35:40 Discharge: Dispo Type: Admitted as IP to this Hosp Address: [address] [place] [phone] Provider Notes: Diagnosis: 1:Elevated troponin; 2:Cough; 3:Abscess; [...] up: With: Address: When: MENDY COOK [address], [facility] [address] [place] [address] Business (1) With: Address: When: [facility] SHANE [address] [facility] [place] [phone] Business (1) Patient Education Information: Obesity, Adult; Managing Your Hypertension Normal [facility] Inpatient Patient Summaryon 10-23-2023 Inpatient Patient Summary [place] [id number] Patient Discharge Instructions PERSON INFORMATION Name: DEVON MATHEW Date of : 1980 Current Date: 10/23/2023 12:51:11 PHYSICIANS Admitting Physician: Vickie MEANS DO Primary Care Physician: HATTIE SHANE CNP PCP Phone Number: [phone] Comment: Discharge Diagnosis: 1:Elevated troponin; 2:Cough; 3:Abscess; [...] up: With: Address: When: MENDY COOK [address] [place] [address] Business (1) With: Address: When: HATTIE SHANE [address] [facility] [phone] Business (1) In the event that this physician does not participate in your insurance network, please consult with your insurance company to find a nearby participating provider. Comment: PRIYANKA Stone CORY, have received the attached patient education materials/instruction s and have verbalized understanding: Patient Signature Date Clinican/Nurse Signature Date HERE ARE THE MEDICATION CHANGES THAT OCCURRED DURING YOUR HOSPITAL STAY New Medications [id number], [address], [place] [id number], [phone] atorvastatin (Lipitor 40 mg Tab) 1 Tablets [...] Tablets By Mouth every day. Pharmacy Information: [facility] Lisa Comment: PATIENT EDUCATION INFORMATION Instructions: Obesity, Adult [...] of the colon, (more content not included)... [facility] Insurance Correspondence Off iceon 10-23-2023 Insurance Correspondence Office [phone] [id number] #1.00TIFF [facility] Interdisciplinary Note - Toro e Manageron 10-23-2023 Interdisciplinary Note - Conference Center Manager P tis awake and alert in bed, previously rounded with Dr. Seymour. at bedside, and will transport at [place]. Pt had echo and stress test and aware of plan to DC home today, declines any concerns or DC needs. . PCP verified and insurance information reviewed and DME discussed. Contact information provided and white board updated. [facility] Comment on above: Result Comment: Elec tronically Signed By: Cande JACOBS, Stephanie\.leonor\Date and Time Signed: 10/23/23 12:10 EDT Lipid Panelon 10-23-2023 Cholesterol [Mass/Vol] 172 mg/dL Normal 120-200 [facility] Comment on above: Performed By: #### 2 [id number], [id number] ####[facility] [address] [place] [address] Cholesterol in HDL [Mass/Vol] 26 mg/dL Invalid Interpretation Code [facility] Comment on above: Result Comment: '>= 60 LOW RISK' '<= 40 HIGH RISK' Performed By: #### 2 007638, [id number] ####[facility] [address] [place] [address] Cholesterol in LDL [Mass/Vol] 120 mg/dL Normal <=129 [facility] Comment on above: Performed By: #### 2 455130, 2662164 ####[facility] [address] [place] [address] Cholesterol in VLDL [Mass/Vol] 34 mg/dL Normal 7-40 [facility] Comment on above: Performed By: #### 2 948584, 9910273 ####[facility] [address] [place] [address] Triglyceride [Mass/Vol] 170 mg/dL High <=149 [facility] Comment on above: Performed By: #### 2 410455, 3171686 ####[facility] [address] [place] [address] Monitor Recordon 10-23-2023 Monitor Record [id number]# 1.00TIFF Normal [facility] Monitor Record [id number]# 1.00TIFF Normal [facility] Monitor Record [id number]# 1.00TIFF Normal [facility] Progress Note-Physicianon Progress Note-Physician Subjective Patient feeling [...] mg/dL High (10/23/23 07:40:00) POC Device SN: [id number] (10/23/23 07:40:00) POC User ID: [id number] (10/23/23 07:40:00) POC Username: BERONICA PATINO (10/23/23 [...] deep vein thrombosis (DVT) prophylaxis (Z79.899: Other buttermaker (current) drug therapy) Elevated blood pressure reading [...] BID nicotine (more content not included)... Normal [facility] Comment on above: Result Comment: Elec tronically Signed By: MAXIM POWELL, Houston Osullivan\.br\Date and Time Signed: 10/23/23 07:58 EDT WBCon 10-23-2023 WBC corrected for nucl RBC Auto (Bld) [#/Vol] 15.1 E9/L High 4.0-11.0 [facility] Comment on above: Performed By: #### 2 521431, 6947145 ####[facility] [address] [place] [address] BMPon 10-22-2023 Anion gap [Moles/Vol] 9 mmol/L Normal 6-16 [facility] Comment on above: Performed By: #### 2 229917 #### [facility] [address] [place] [address] Calcium [Mass/Vol] 8.2 mg/dL Low 8.9-11.1 [facility] Comment on above: Performed By: #### 2 277665 #### [facility] [address] [place] [address] Chloride [Moles/Vol] 104 mmol/L Normal 101-111 [facility] Comment on above: Performed By: #### 2 582835 #### [facility] [address] [place] [address] CO2 [Moles/Vol] 22 mmol/L Normal 21-31 [facility] Comment on above: Performed By: #### 2 233719 #### [facility] [address] [place] [address] Creatinine [Mass/Vol] 0.6 mg/dL Normal 0.5-1.3 [facility] Comment on above: Performed By: #### 2 691320 #### [facility] [address] [place] [address] Glucose [Mass/Vol] 364 mg/dL High 55-199 [facility] Comment on above: Performed By: #### 2 562747 #### [facility] [address] [place] [address] Potassium [Moles/Vol] 4.0 mmol/L Normal 3.5-5.3 [facility] Comment on above: Performed By: #### 2 631952 #### [facility] [address] [place] [address] Sodium [Moles/Vol] 131 mmol/L Low 135-145 [facility] Comment on above: Performed By: #### 2 274768 #### [facility] [address] [place] [address] Urea nitrogen [Mass/Vol] 13 mg/dL Normal 5-21 [facility] Comment on above: Performed By: #### 2 654702 #### [facility] [address] [place] [address] Urea nitrogen/Creatinine [Mass ratio] 22 No Units High 10-20 [facility] Comment on above: Performed By: #### 2 907768 #### [facility] [address] [place] [address] CBC w/Indiceson 10-22-2023 Erythrocyte distribution width (RBC) [Ratio] 13.8 % Normal 10.9-14.2 [facility] Comment on above: Performed By: #### 2 156231 #### [facility] [address] [place] [address] Hematocrit (Bld) [Volume fraction] 36.3 % Low 37.7-49.0 [facility] Comment on above: Performed By: #### 2 100510 #### [facility] [address] [place] [address] Hemoglobin (Bld) [Mass/Vol] 12.4 g/dL Low 13.5-17.5 [facility] Comment on above: Performed By: #### 2 901395 #### [facility] [address] [place] [address] MCH (RBC) [Entitic mass] 28.9 pg Normal 27.0-34.0 [facility] Comment on above: Performed By: #### 2 254830 #### [facility] [address] [place] [address] MCHC (RBC) [Mass/Vol] 34.2 g/dL Normal 31.4-36.0 [facility] Comment on above: Performed By: #### 2 804608 #### [facility] [address] [place] [address] MCV (RBC) [Entitic vol] 84.6 fL Normal 80.0-100.0 [facility] Comment on above: Performed By: #### 2 551911 #### [facility] [address] [place] [address] Platelet mean volume (Bld) [Entitic vol] 9.9 fL Normal 6.4-10.8 [facility] Comment on above: Performed By: #### 2 421482 #### [facility] [address] [place] [address] Platelets (Bld) [#/Vol] 211.0 E9/L Normal 150.0-500.0 [facility] Comment on above: Performed By: #### 2 574906 #### [facility] [address] [place] [address] RBC (Bld) [#/Vol] 4.3 E12/L Normal 4.3-5.9 [facility] Comment on above: Performed By: #### 2 976939 #### [facility] [address] [place] [address] RBC size Nom (Bld) NORMAL Invalid Interpretation Code [facility] Comment on above: Performed By: #### 2 993544 #### [facility] [address] [place] [address] WBC corrected for nucl RBC Auto (Bld) [#/Vol] 13.4 E9/L High 4.0-11.0 [facility] Comment on above: Performed By: #### 2 852406 #### [facility] [address] [place] [address] CHEMISTRYOrdered By: Lab ROP User on 10-22-2023 Glucose [Mass/Vol] 217 mg/dL High 55 - 99 mg/dL FT C POC Subsection Comment on above: Result Comment: Dena cee RN/ POC Device SN [id number] 1 Invalid Interpretation Code [facility] POC Subsection POC User ID [id number] 1 Invalid Interpretation Code [facility] POC Subsection POC Username ROMA MEDINA Invalid Interpretation Code [facility] POC Subsection CHEMISTRYOrdered By: SYSTEM SYSTEM on [...] Sensitivity Troponin I Instructions For Use, [facility] [place], March 2018) TSH Qn 1.37 m[IU]/L Normal 0.34 - 5.60 mcIU/mL Remisol Chem Urea nitrogen [Mass/Vol] 13 mg/dL Normal 5 - 21 mg/dL Remisol Chem Urea nitrogen/Creatinine [Mass ratio] 22 mg/mg High 10 - 20 Remisol Chem CHEMISTRYOrdered By: Keisha mejia on 10-22-2023 HbA1c (Bld) [Mass fraction] 9.6 % High <=5.9% [facility] ChemAutoSS Capillary Glucose POCon 10-05 Glucose [Mass/Vol] 217 mg/dL High 55-99 [facility] Comment on above: Result Comment: Dena cee RN/ Performed By: #### 2 [id number] #### [facility] [address] [place] [address] Glucose [Mass/Vol] 309 mg/dL High 55-99 [facility] Comment on above: Result Comment: Dena cee RN/ Performed By: #### 2 857819 #### [facility] [address] [place] [address] Consultation Noteon 10-22-19 Consultation Note Chief Complaint [...] on his back and has gone to [facility] a couple times in the past couple of weeks for treatment. The patient was given prednisone and Lasix, and when this did not improve he came to [facility] emergency room for further evaluation. He was [...] 3. Leukocyt (more content not included)... Normal [facility] Comment on above: Result Comment: Elec tronically [...] High 4.0 - 11.0 E9/L Remisol Heme TpwT5dob 10-22-2023 HbA1c (Bld) [Mass fraction] 9.6 % High <=5.9 [facility] Comment on above: Performed By: #### 2 238612 #### [facility] [address] [place] [address] Laboratory - Microbiology an d Antimicrobial susceptibilityOrdered By: Marcela Schilling on 10-22-2023 MRSA DNA FERMIN+probe Ql (Unsp spec) MRSA Negative. [facility] Lipid Panelon 10-22-2023 Cholesterol [Mass/Vol] 171 mg/dL Normal 120-200 [facility] Comment on above: Performed By: #### 2 079445 #### [facility] [address] [place] [address] Cholesterol in HDL [Mass/Vol] 23 mg/dL Invalid Interpretation Code [facility] Comment on above: Result Comment: '>= 60 LOW RISK' '<= 40 HIGH RISK' Performed By: #### 2 453351 #### [facility] [address] [place] [address] Cholesterol in LDL [Mass/Vol] 117 mg/dL Normal <=129 [facility] Comment on above: Performed By: #### 2 955850 #### [facility] [address] [place] [address] Cholesterol in VLDL [Mass/Vol] 36 mg/dL Normal 7-40 [facility] Comment on above: Performed By: #### 2 827247 #### [facility] [address] [place] [address] Triglyceride [Mass/Vol] 182 mg/dL High <=149 [facility] Comment on above: Performed By: #### 2 405207 #### [facility] [address] [place] [address] Magnesiumon 10-22-2023 Magnesium [Mass/Vol] 1.7 mg/dL Normal 1.3-2.4 [facility] Comment on above: Performed By: #### 2 922717 #### [facility] [address] [place] [address] Monitor Recordon 10-22-2023 Monitor Record [id number]# 1.00TIFF Normal [facility] Monitor Record [id number]# 1.00TIFF Normal [facility] Monitor Record [id number] 3 [id number]# 1.00TIFF Normal [facility] Monitor Record [id number] 3 [id number]# 1.00TIFF Normal [facility] Progress Note-Physicianon Progress Note-Physician Assessment/Plan 43-year-old male [...] lipid profile and start Lipitor appropriately. Ordered: [facility] Care/Day Moderate 35 Minutes 41083 2. Cough (R05.9: Cough, unspecified) Supportive care. Continue on Tessalon Perles as needed and nebulizer treatments. Ordered: [facility] Care/Day Moderate 35 Minutes 99681 3. Abscess (L02.91: Cutaneous abscess, unspecified) Left axilla and left scapula nondraining abscess. Start patient on doxycycline. Ordered: [facility] Care/Day Moderate 35 Minutes 01747 White Blood Count 4. Leukocytosis (D72.829: Elevated white blood cell count, unspecified) Secondary to above abscess. WBC trending down. Ordered: [facility] Care/Day Moderate 35 Minutes [address]3928 White Blood Count 5. Hyperglycemia (R73.9: Hyperglycemia, unspecified) Secondary to new onset diabetes mellitus. Started patient on sliding scale insulin. Hemoglobin A1c pending. Ordered: [facility] Care/Day Moderate 35 Minutes 12398 6. Hyponatremia (E87.1: Hypo-osmolality and hyponatremia) Secondary [...] uncontrolled. Continue on metoprolol, nifedipine. Seen by nurse staff community health and hydrochlorothiazide and losartan were added. 9. Obese (E66.9: Obesity, unspecified) Recommend therapeutic lifestyle modification changes. 10. Tobacco use (Z72.0: Tobacco use) Recommend cessation. Continue nicotine patch. 11. On deep vein thrombosis (DVT) prophylaxis (Z79.899: Other buttermaker (current) drug therapy) Lovenox. Disposition: Hopefully home in a.m. pending echocardiogram result?May require stress test or cardiac cath. I discussed the diagnosis and plan of care with the patient at the bedside. Moderate level of MDM based on addressing above issues. This documentation was transcribed using voice recognition software. Several attempts were made to ensure accuracy. However inadvertent computerized special delivery messenger errors may be present. Delia Ortiz. Hospitalist. [...] no pharynge (more content not included)... Normal [facility] Comment on above: Result Comment: Elec tronically Signed By: ALEA POWELL, Bandarfo\.br\Date and Time Signed: 10/22/23 09:08 EDT TSH With T4fr Reflexon 10-21 TSH Qn 1.37 m[IU]/L Normal 0.34-5.60 [facility] Comment on above: Performed By: #### 2 892494 #### [facility] [address] [place] [address] Troponinon 10-22-2023 Troponin 62.40 pg/mL Abnormal 15.90-38.40 [facility] Comment on above: Result Comment: Crit ical [...] High Sensitivity Troponin I Instructions For Use, [employer], March 2018) Performed By: #### 2 804709 #### [facility] [address] [place] [address] Troponin 65.80 pg/mL Abnormal 15.90-38.40 [facility] Comment on above: Result Comment: Crit ical Result Verified by Repeat Analysis Critical Result I_TnIHS:65.8 Called to and read back by: GABRIELA NORIEGA at: 10/22/2023 00:32:26 by:LE LYNCH The 95% CI (Confidence Interval) PPV (Positive Predictive Value) for myocardial infarction in females is 38 pg/mL, in males 51 pg/mL. The results should be used in conjunction with clinical conditions of myocardial infarction. (Access High Sensitivity Troponin I Instructions For Use, [employer], March 2018) Performed By: #### 2 [id number] #### [facility] [address] [place] [address] XR Chest 2 Viewson 4 XR Chest 2 Views Exam Date/Time: 10/21/2023 21:59 EDT Reason for Exam: Cough Report [facility] [phone] IMPRESSION: There are no acute cardiopulmonary changes. [...] mGy = na DAP = na Normal [facility] XR Chest Single Viewon 10-21 XR Chest Single View Exam Date/Time: 10/21/2023 19:43 EDT Reason for Exam: Cough Report [facility] [phone] IMPRESSION: There are no acute cardiopulmonary changes. [...] mGy = na DAP = na Normal [facility] eGFRon 10-22-2023 eGFR 123 mL/min/1.73 m2 Normal >=59 [facility] Comment on above: Order Comment: Order added by Discern Expert. Performed By: #### 2 476478 #### [facility] [address] [place] [address] BNPon 10-21-2023 Natriuretic peptide B (Bld) [Mass/Vol] 8 pg/mL Normal 5-80 [facility] Comment on above: Performed By: #### 2 107041, 00860593, 6389595, 2497821, 02348601, 3498680154, 8065780, 28957576, 241199210 ####[facility] [address] [place] [address] BOHBon 10-21-2023 Beta HB Qnt 0.10 mmol/L Normal 0.02-0.27 [facility] Comment on above: Performed By: #### 2 563730, 96809725, 1734664, 2096182, 70213192, 6222048588, 6127339, 36299678, 926233063 ####[facility] [address] [place] [address] Bld Gas Venon 10-21-2023 Allens Test Not Applicable Normal [facility] Comment on above: Performed By: #### 1 7730710 #### [facility] [address] [place] [address] Drawn by lab Invalid Interpretation Code [facility] Comment on above: Performed By: #### 1 8749977 #### [facility] [address] [place] [address] FIO2 BG 21 Invalid Interpretation Code [facility] Comment on above: Performed By: #### 1 9479347 #### [facility] [address] [place] [address] pCO2 Maikel 40.7 mmHg Normal 38.0-50.0 [facility] Comment on above: Performed By: #### 1 8058336 #### [facility] [address] [place] [address] pH Maikel 7.401 Normal 7.320-7.430 [facility] Comment on above: Performed By: #### 1 8045512 #### [facility] [address] [place] [address] Sample Site OTHER Normal [facility] Comment on above: Performed By: #### 1 2493048 #### [facility] [address] [place] [address] Sample Type Venous Draw Normal [facility] Comment on above: Performed By: #### 1 7229760 #### [facility] [address] [place] [address] CBC w/ Auto Diffon 03-16-202 4 Basophils/100 WBC (Bld) 0.2 % Normal 0.0-2.0 [facility] Comment on above: Performed By: #### 2 312513, 23717601, 9835149, 2956473, 57362829, 6592151429, 1766255, 79371446, 201481525 #### [facility] [address] [place] [address] Basophils/Leukocytes Auto (Bld) [Pure # fraction] 0.0 E9/L Normal 0.0-0.2 [facility] Comment on above: Performed By: #### 2 517838, 59481115, 1112465, 7827328, 52513904, 3613320941, 8879896, 12021455, 351190037 #### [facility] [address] [place] [address] Eosinophils (Bld) [#/Vol] 0.1 E9/L Normal 0.0-0.5 [facility] Comment on above: Performed By: #### 2 909192, 82212165, 4409774, 8619478, 51872895, 3576365619, 5949847, 26315053, 105427195 #### [facility] [address] [place] [address] Eosinophils/100 WBC (Bld) 0.7 % Normal 0.0-8.0 [facility] Comment on above: Performed By: #### 2 257646, 33813355, 7933583, 3416254, 69866381, 3530301157, 9140489, 19695933, 001737641 #### [facility] [address] [place] [address] Erythrocyte distribution width (RBC) [Ratio] 13.7 % Normal 10.9-14.2 [facility] Comment on above: Performed By: #### 2 150990, 49591987, 7194511, 5109585, 31777295, 3303936828, 4451337, 13730859, 486014640 #### [facility] [address] [place] [address] [place] [address] Hematocrit (Bld) [Volume fraction] 41.6 % Normal 37.7-49.0 [facility] Comment on above: Performed By: #### 2 960506, 33205399, 8505582, 3744930, 10521706, 3925754315, 3562159, 79129361, 213580939 #### [facility] [address] [place] [address] Hemoglobin (Bld) [Mass/Vol] 14.3 g/dL Normal 13.5-17.5 [facility] Comment on above: Performed By: #### 2 343580, 13145754, 9849145, 6167471, 81541422, 0451076028, 0929861, 36342943, 517414661 #### [facility] [address] [place] [address] Lymphocytes (Bld) [#/Vol] 4.0 E9/L Normal 1.0-4.0 [facility] Comment on above: Performed By: #### 2 144563, 23809150, 7523247, 4289325, 30565507, 5278437299, 2103667, 40268571, 346003958 #### [facility] [address] [place] [address] Lymphocytes/100 WBC (Bld) 25.2 % Normal 14.0-50.0 [facility] Comment on above: Performed By: #### 2 469246, 93359845, 9635203, 7823273, 02305018, 0614493534, 2004787, 90431310, 678803004 #### [facility] [address] [place] [address] MCH (RBC) [Entitic mass] 29.0 pg Normal 27.0-34.0 [facility] Comment on above: Performed By: #### 2 947420, 93640162, 5609326, 0452472, 66221354, 0479496463, 5998805, 64274937, 160008493 #### [facility] [address] [place] [address] MCHC (RBC) [Mass/Vol] 34.3 g/dL Normal 31.4-36.0 [facility] Comment on above: Performed By: #### 2 140200, 60340754, 5250310, 4458700, 55198391, 2101715853, 3117453, 91487939, 435664993 #### [facility] [address] [place] [address] MCV (RBC) [Entitic vol] 84.7 fL Normal 80.0-100.0 [facility] Comment on above: Performed By: #### 2 956706, 11446375, 2205445, 5967722, 47103781, 0804821374, 1680311, 45225471, 204348146 #### [facility] [address] [place] [address] Monocytes (Bld) [#/Vol] 0.8 E9/L Normal 0.2-1.0 [facility] Comment on above: Performed By: #### 2 457444, 23243421, 3162916, 1819751, 87408263, 0821673298, 2661909, 83644149, 743468410 #### [facility] [address] [place] [address] Neutrophils (Bld) [#/Vol] 10.9 E9/L High 2.0-7.5 [facility] Comment on above: Performed By: #### 2 069981, 36832651, 9445680, 0618477, 35792837, 8701267439, 7115527, 06433736, 862739532 #### [facility] [address] [place] [address] Neutrophils/100 WBC (Bld) 68.7 % Normal 36.0-75.0 [facility] Comment on above: Performed By: #### 2 339721, 16910310, 3838828, 0291437, 63935371, 9000097785, 1309845, 03310774, 333621250 #### [facility] [address] [place] [address] Platelet mean volume (Bld) [Entitic vol] 9.5 fL Normal 6.4-10.8 [facility] Comment on above: Performed By: #### 2 556022, 08367655, 5188079, 4605595, 62709274, 3991294037, 0453953, 17033518, 527561466 #### [facility] [address] [place] [address] Platelets (Bld) [#/Vol] 251.0 E9/L Normal 150.0-500.0 [facility] Comment on above: Performed By: #### 2 787004, 71890887, 9128546, 2004412, 90497666, 5995891332, 4959307, 97079461, 221796215 #### [facility] [address] [place] [address] RBC (Bld) [#/Vol] 4.9 E12/L Normal 4.3-5.9 [facility] Comment on above: Performed By: #### 2 671490, 50533866, 8285309, 3620836, 05112337, 3156185864, 6256487, 99155140, 662796594 #### [facility] [address] [place] [address] WBC corrected for nucl RBC Auto (Bld) [#/Vol] 15.8 E9/L High 4.0-11.0 [facility] Comment on above: Performed By: #### 2 298868, 42167840, 2667420, 0479187, 85854843, 9098893966, 1889500, 82748835, 037757084 #### [facility] [address] [place] [address] CHEMISTRYOrdered By: SYSTEM SYSTEM on 10-21-2023 Troponin [...] Sensitivity Troponin I Instructions For Use, [facility] [place], March 2018) Urea nitrogen [Mass/Vol] 17 mg/dL Normal 5 - 21 mg/dL Remisol Chem Urea nitrogen/Creatinine [Mass ratio] 19 mg/mg Normal 10 - 20 Remisol Chem CHEMISTRYOrdered By: Sunitha Lynch on 10-21-2023 Natriuretic peptide B (Bld) [Mass/Vol] 8 pg/mL Normal 5 - 80 pg[facility] Albumin [Mass/Vol] 4.0 g/dL Normal 3.3-5.0 [facility] Comment on above: Performed By: #### 2 511961, 01310162, 2738834, 4818156, 34788081, 7626919338, 1305165, 39581444, 575219291 #### [facility] [address] [place] [address] Albumin/Globulin (S) [Mass conc ratio] 1.5 Normal 1.1-2.2 [facility] Comment on above: Performed By: #### 2 056522, 43130747, 4776742, 7904931, 21970513, 7946567822, 3235157, 65710050, 952175140 #### [facility] [address] [place] [address] ALP [Catalytic activity/Vol] 75 Int._Unit/L Normal 21-98 [facility] Comment on above: Performed By: #### 2 896243, 93533523, 5615338, 7393520, 12976777, 5524542659, 0972885, 71471860, 937268480 #### [facility] [address] [place] [address] ALT No additional P-5'-P [Catalytic activity/Vol] 25 Int._Unit/L Normal 6-46 [facility] Comment on above: Performed By: #### 2 163929, 05721883, 6727353, 1890596, 68572469, 7248728586, 0789777, 75988103, 475350276 #### [facility] [address] [place] [address] Anion gap [Moles/Vol] 13 mmol/L Normal 6-16 [facility] Comment on above: Performed By: #### 2 654588, 65134731, 7563954, 9296264, 41513230, 2236130022, 6476754, 85003891, 512383175 #### [facility] [address] [place] [address] AST [Catalytic activity/Vol] 15 Int._Unit/L Normal 5-43 [facility] Comment on above: Performed By: #### 2 687996, 84080714, 2459749, 1436666, 48641912, 9890473788, 9734435, 58997327, 140355285 #### [facility] [address] [place] [address] Bilirubin [Mass/Vol] 0.5 mg/dL Normal 0.0-1.1 [facility] Comment on above: Performed By: #### 2 216761, 55259568, 2442905, 3898927, 80923621, 5143695103, 5258041, 05958577, 929938767 #### [facility] [address] [place] [address] Calcium [Mass/Vol] 9.0 mg/dL Normal 8.9-11.1 [facility] Comment on above: Performed By: #### 2 752974, 53504251, 5908512, 7618104, 82595666, 5128058742, 7084429, 29235353, 424922967 #### [facility] [address] [place] [address] Chloride [Moles/Vol] 97 mmol/L Low 101-111 [facility] [facility] Comment on above: Performed By: #### 2 442535, [id number], 8677362, 3227493, 24004228, [id number], 2099874, 28075245, [id number] #### [facility] [address] [place] [address] CO2 [Moles/Vol] 22 mmol/L Normal 21-31 [facility] Comment on above: Performed By: #### 2 478001, 11802365, 6681180, 8931954, 89484397, [id number], 0702148, 68140805, 205950585 #### [facility] [address] [place] [address] Creatinine [Mass/Vol] 0.9 mg/dL Normal 0.5-1.3 [facility] Comment on above: Performed By: #### 2 112572, 12900860, 4590878, 2759695, 77937494, 1953784538, 5039107, 30755228, 127449615 #### [facility] [address] [place] [address] Globulin (S) [Mass/Vol] 2.6 g/dL Normal 1.4-4.0 [facility] Comment on above: Performed By: #### 2 783595, 13667138, 2728676, 7350929, 19019237, 0660382867, 7341148, 26752718, 904496965 #### [facility] [address] [place] [address] Glucose [Mass/Vol] 417 mg/dL High 55-199 [facility] Comment on above: Performed By: #### 2 234021, 17283161, 6578851, 2272500, 84457051, 4378158633, 1659948, 56915110, 722110382 #### [facility] [address] [place] [address] Potassium [Moles/Vol] 3.8 mmol/L Normal 3.5-5.3 [facility] Comment on above: Performed By: #### 2 059156, 05095234, 6572727, 3619114, 90881095, 8862081382, 6616454, 63356601, 134691639 #### [facility] [address] [place] [address] Protein [Mass/Vol] 6.6 g/dL Normal 6.0-7.8 [facility] Comment on above: Performed By: #### 2 252081, 14067676, 2078329, 1433216, 92422413, 7428616451, 0932233, 62736099, 889697328 #### [facility] [address] [place] [address] Sodium [Moles/Vol] 128 mmol/L Low 135-145 [facility] Comment on above: Performed By: #### 2 328157, 27774886, 1141438, 6371903, 60332298, 1439734711, 6967294, 96100521, 133817521 #### [facility] [address] [place] [address] Urea nitrogen [Mass/Vol] 17 mg/dL Normal 5-21 [facility] Comment on above: Performed By: #### 2 870519, 19641091, 5662099, 1665237, 84857715, 1538150288, 0273771, 33459303, 924388546 #### [facility] [address] [place] [address] Urea nitrogen/Creatinine [Mass ratio] 19 No Units Normal 10-20 [facility] Comment on above: Performed By: #### 2 156472, 54063320, 4821037, 0046624, 18103982, 5016386560, 9614134, 36588605, 836163971 #### [facility] [address] [place] [address] COAGULATIONOrdered By: Kingsley Zheng on 10-21-2023 aPTT Coag (PPP) [Time] 29.4 s Normal 25.1 - 36.5 second(s) [facility] Auto Coag Comment on above: Interpretive Data: P maribeth 15 days - 4 weeks 1 - [...] the same coagulation reagent and instrumentation as [facility]. Currently there are no coagulation studies available worldwide for children to 14 days, and no normal ranges. Heparin therapeutic range (represented by Anti-Factor Xa activity of 0.2 - 0.4 U/mL) corresponds to PTT of 56.6 - 109.0 sec. INR Coag (PPP) [Relative time] 1.02 {INR} Invalid Interpretation Code [facility] Comment on above: Interpretive Data: I NR results are specifically intended to assess patients stabilized on long-term Anticoagulation therapy suggested INR s Less Intensive Anticoagulation 2.0 3.0 Conventional Range 3.0 4.5 PT Coag (PPP) [Time] 11.4 s Normal 9.4 - 1 2.5 second(s) [facility] Comment on above: Interpretive Data: [...] the same coagulation reagent and instrumentation as [facility]. Currently there are no coagulation studies available worldwide for children to 14 days, and no normal ranges. Capillary Glucose POCon 10-05 Glucose [Mass/Vol] 254 mg/dL High 55-99 [facility] Comment on above: Result Comment: Dena PETERSEN Performed By: #### 2 [id number] #### [facility] [address] [place] [address] Glucose [Mass/Vol] 440 mg/dL High 55-99 [facility] Comment on above: Result Comment: Dena PETERSEN Performed By: #### 2 [id number] #### [facility] [address] [place] [address] Consent for Treatmenton 10-05 Consent for Treatment [id number]#1 .00TIFF Normal [facility] ED Clinical Summaryon 2023 ED Clinical Summary [address] [address] ED Clinical Summary Person Information Name: DEVON MATHEW/[facility] Age: 43 Years : 1980 Sex: Male Language: Cook Islander PCP: HATTIE SHANE CNP Marital Status: Single Phone: Visit Id: Visit Reason: Increased blood sugar; Fever; Abscess - axilla; BOILS ALL OVER, FEVERS, BLURRY VISION Speciality: Acuity: 3 Enc Type: Inpatient Med Service: Emergency Arrival: 10/21/2023 18:35:40 Discharge: LOS: 000 03:14 Checkin: 10/21/2023 18:35:40 Checkout: 10/21/2023 21:49:42 Dispo Type: Admitted as IP to this [facility] EVENTS: Event Name Event Status Request [...] 21:02:25 Patient Care Request 10/21/2023 21:02:25 ADDRESS: [address] [place] [phone] PHYS DOC NOTES: MEDICAL INFORMATION: Prescriptions Given: PATIENT EDUCATION INFORMATION: Instructions: Follow up: DIAGNOSIS: Abscess; Elevated blood pressure reading; Elevated troponin; Hyperglycemia; Pneumonia; Sepsis Normal [facility] ED Note-Physicianon 10-21-19 ED Note-Physician Basic Information [...] and Complexity of Problems Differential Diagnosis: [] [facility] Data External documents reviewed: N/A My EKG [...] Soln-IV, IV (more content not included)... Normal [facility] Comment on above: Result Comment: Elec tronically Signed By: Sean Thomas DO\.br\Date and Time Signed: 10/21/23 20:56 EDT ED Patient Education Noteon 10-21-2023 ED Patient Education Note Normal [facility] ED Patient Summaryon 024 ED Patient Summary [address] [address] Patient Discharge Instructions Person Information Name: DEVON MATHEW Age: 43 Years Arrival Date: 10/21/2023 18:35:40 Discharge Diagnosis: Abscess; Elevated blood pressure reading; Elevated troponin; Hyperglycemia; Pneumonia; Sepsis Primary Care Physician: HATTIE SHANE CNP Provider Information Primary Provider: Sean Thomas DO Advanced Corporate Account Executive:None The exam and treatment you received in the Emergency Department were for an urgent problem and are not intended as complete care. It is important that you follow up with a doctor, nurse practitioner, or physician?s insurance sales assistant for ongoing care. If your symptoms [...] opioids can be used to help relieve biewzqhz-yw-splnnp pain and are often prescribed following a [...] be struggling with addiction, tell your health home care scheduler and ask for guidance or call [facility]S National Helpline at 5-198-587-JJRM. b Source: [place] Department of Health and Human Services/Center for Disease Control & Prevention [facility] (more content not included)... Normal [facility] Blood GasesOrdered By: Suzanna Strauss on 10-21-2023 Allens Test Not Applicable (10/21/23 7:38 PM) Normal [facility] Resp Auto SS Drawn by lab Invalid Interpretation Code [facility] Resp Auto SS FIO2 BG 21 1 Invalid Interpretation Code [facility] Resp Auto SS pCO2 Maikel 40.7 mm[Hg] Normal 38.0 - 50.0 mmHg [facility] Resp Auto SS pH (Bld) 7.401 [pH] Normal 7.320 - 7.430 [facility] Resp Auto SS Sample Site OTHER (10/21/23 7:38 PM) Normal [facility] Resp Auto SS Sample Type Venous Draw (10/21/23 7:38 PM) Normal [facility] Resp Auto SS HEMATOLOGYOrdered By: SYSTEM SYSTEM [...] 4 Influenzae A Ag Negative Normal Negative [facility] Comment on above: Performed By: #### 2 [id number] #### [facility] [address] [place] [address] Influenzae B Ag Negative Normal Negative [facility] Comment on above: Result Comment: Test sensitivity and specificity vary for age group, specimen type, antigen types, and prevalence of disease. Test results must be evaluated in conjunction with other clinical data available to the physician. Individuals who received nasally administered Influenza A vaccine may have positive test results up to 3 days after vaccination. Performed By: #### 2 063575 #### [facility] [address] [place] [address] Lactic Acidon 10-21-2023 Lactic Acid Lvl 1.4 mmol/L Normal 0.5-2.2 [facility] Comment on above: Performed By: #### 2 005218, 47002470, 6808880, 7821488, 18476516, 6744436537, 3093568, 86787308, 747150096 ####[facility] [address] [place] [address] MICRO OTHER TESTSOrdered By: Kingsley Zheng on 10-21-2023 Influenzae A Ag Negative (10/21/23 7:25 PM) Normal Negative [facility] Influenzae B Ag Negative 1 (10/21/23 7:25 PM) Normal Negative [facility] Comment on above: Interpretive Data: [...] POS Ctl Pass (10/21/23 7:25 PM) Normal [facility] SARS-CoV+SARS-CoV-2 (COVID-19) Ag IA.rapid Ql (Resp) Not Detected 16 (10/21/23 7:25 PM) Normal Not Detected [facility] Comment on above: Interpretive Data: T he Moki[employer]tv Veritor System for Rapid Detection of SARS-CoV-2 [...] revoked sooner. Monitor Recordon 10-21-2023 Monitor Record [id number]# 1.00TIFF Normal [facility] No Panel InformationOrdered By: [facility] on 10-21-2023 Blood Culture Charcoal No growth at 1 da y. Final to follow at 7 days. [facility] Blood Culture Charcoal No growth at 1 da y. Final to follow at 7 days. [facility] PT & PTTon 10-21-2023 aPTT Coag (PPP) [Time] 29.4 second(s) Normal 25.1-36.5 [facility] Comment on above: Result Comment: Para meter [...] the same coagulation reagent and instrumentation as [facility]. Currently there are no coagulation studies available worldwide for children to 14 days, and no normal ranges. Heparin therapeutic range (represented by Anti-Factor Xa activity of 0.2 - 0.4 U/mL) corresponds to PTT of 56.6 - 109.0 sec. Performed By: #### 2 770190, 98616967, 8385236, 3334058, 16822894, 4123703288, 5254769, 59330221, 144547797 #### [facility] [address] [place] [address] INR Coag (PPP) [Relative time] 1.02 {INR} Invalid Interpretation Code [facility] Comment on above: Result Comment: INR results are specifically intended to assess patients stabilized on long-term Anticoagulation therapy suggested INR?s ?Less Intensive Anticoagulation? 2.0 ? 3.0 Conventional Range 3.0 ? 4.5 Performed By: #### 2 646975, 75757488, 4328263, 9010671, 43481199, 6354704774, 8886591, 78683957, 176017104 #### [facility] [address] [place] [address] PT Coag (PPP) [Time] 11.4 second(s) Normal 9.4-12.5 [facility] Comment on above: Result Comment: 15 d [...] the same coagulation reagent and instrumentation as [facility]. Currently there are no coagulation studies available worldwide for children to 14 days, and no normal ranges. Performed By: #### 2 780960, 69105701, 4841939, 6773841, 78607690, 2598964234, 4020213, 28465957, 648089979 #### [facility] [address] [place] [address] Procalcitoninon 10-21-2023 Procalcitonin .06 ng/mL Normal .00-.50 [facility] Comment on above: Result Comment: <0.5 [...] to 24 hours. Performed By: #### 2 005647, 24483945, 5539905, 2834493, 01032018, 1924135830, 8330370, 29961712, 442866309 ####[facility] [address] [place] [address] Rapid COVID Antigen (MC)on 10-21-2023 Rapid COV Int NEG Ctl Pass Normal [facility] Comment on above: Performed By: #### 2 771555 #### [facility] [address] [place] [address] Rapid COV Int POS Ctl Pass Normal [facility] Comment on above: Performed By: #### 2 755928 #### [facility] [address] [place] [address] SARS-CoV+SARS-CoV-2 (COVID-19) Ag IA.rapid Ql (Resp) Not detected Normal Not Detected [facility] Comment on above: Result Comment: The Lumificitor? System for Rapid Detection of SARS-CoV-2 is [...] or revoked sooner. Performed By: #### 2 097327 #### [facility] [address] [place] [address] Troponinon 10-21-2023 Troponin 46.80 pg/mL High 15.90-38.40 [facility] Comment on above: Result Comment: The 95% CI (Confidence Interval) PPV (Positive Predictive Value) for myocardial infarction in females is 38 pg/mL, in males 51 pg/mL. The results should be used in conjunction with clinical conditions of myocardial infarction. (Access High Sensitivity Troponin I Instructions For Use, Jesus [place], March 2018) Performed By: #### 2 053831, 38220660, 8234918, 1150540, 77123625, 5810565596, 7429061, 80724146, 949815523 ####[facility] [address] [place] [address] eGFRon 10-21-2023 eGFR 109 mL/min/1.73 m2 Normal >=59 [facility] Comment on above: Order Comment: Order added by Discern Expert. Performed By: #### 2 022546, 22574782, 8656419, 1536624, 47147885, 0493829984, 3278150, 42823342, 973524699 #### [facility] [address] [place] [address] CT HEAD WITHOUT CONTRASTon 1 08-15-2020 CT [...] with dedicated CT if clinically warranted. Normal [facility] XR TIBIA AND FIBULA RIGHTon 06-15-2021 XR [...] fracture or dislocation. Follow-up as needed. Normal [facility] Basic Metab w/rfx MGon 06-09 (cont.) Normal [facility] Comment on above: Result Comment: Aver age GFR for 40-49 years old: 99 mL/min/1.73sq m Chronic Kidney Disease: <60 mL/min/1.73sq m Kidney failure: <15 mL/min/1.73sq m eGFR calculated using average adult body mass. Additional eGFR calculator available at: http://www.KeepRecipes/multiple_crcl_2012.htm Performed By: #### B MPX, LJ HAN, CDP #### [facility] [address] [place] [address] [place] [address] Glass Checker: Soraya Simpson MD Anion gap [Moles/Vol] 10 mmol/L Normal 9-17 [facility] Comment on above: Performed By: #### B MPX TROPKELLY StoneE, CDP #### [facility] [address] [place] [address] Glass Checker: Soraya Simpson MD BUN/CRE Ratio 31 High 9-20 [facility] Comment on above: Performed By: #### B MPX TROPKELLY StoneE, CDP #### [address] [place] [address] Glass Checker: Soraya Simpson MD Calcium [Mass/Vol] 8.8 mg/dL Normal 8.6-10.4 [facility] Comment on above: Performed By: #### B MPX TROPIKELLYE, CDP #### [facility] [address] [place] [address] Glass Checker: Soraya Simpson MD Chloride [Moles/Vol] 102 mmol/L Normal 98-107 [facility] Comment on above: Performed By: #### B MPX TROPIKELLYE, CDP #### [facility] [address] [place] [address] [address] [place] 6[address]83 Glass Checker: Soraya Simpson MD CO2 [Moles/Vol] 24 mmol/L Normal 20-31 [facility] Comment on above: Performed By: #### B MPX, TROPI, DIME, CDP #### [facility] [address] [place], [place] [address] Glass Checker: Soraya Simpson MD Creatinine [Mass/Vol] 0.52 mg/dL Low 0.70-1.20 [facility] Comment on above: Performed By: #### B MPX, TROPI, DIME, CDP #### [facility] [address] [place], [place] [address] Glass Checker: Soraya Simpson MD GFR, Amer >60 Normal >60 [facility] Comment on above: Performed By: #### B MPX, TROPI, DIME, CDP #### [facility] [address] [place], [place] 1760483 Glass Checker: Soraya Simpson MD GFR,non Amer >60 Normal >60 [facility] Comment on above: Performed By: #### B MPX, TROPI, DIME, CDP #### [facility] [address] [place], [place] 5654[address] Glass Checker: Soraya Simpson MD Glucose [Mass/Vol] 139 mg/dL High 70-99 [facility] Comment on above: Performed By: #### B MPX, TROPI, DIME, CDP #### [facility] [address] [place], [place] [address] Glass Checker: Soraya Simpson MD Potassium [Moles/Vol] 3.9 mmol/L Normal 3.7-5.3 [facility] Comment on above: Performed By: #### B MPX, TROPI, DIME, CDP #### [facility] [address] [place], [place] [address]46[address] Glass Checker: Soraya Simpson MD Sodium [Moles/Vol] 136 mmol/L Normal 135-144 [facility] Comment on above: Performed By: #### B MPX, LJ HAN, CDP #### [facility] [address] [place] [address] Glass Checker: Soraya Simpson MD Staging: Normal [facility] Comment on above: Result Comment: Stag e 1: Some kidney damage normal GFR Stage 2: Mild kidney damage GFR 60-89 Stage 3: Moderate kidney damage GFR 30-59 Stage 4: Severe kidney damage GFR 15-29 Stage 5: Severe kidney damage GFR <15 ESRD - chronic treatment by dialysis or transplant Performed By: #### B MPXEMELY DIME, CDP #### [facility] [address] [place] [address] Glass Checker: Soraya Simpson MD Urea nitrogen [Mass/Vol] 16 mg/dL Normal 6-20 [facility] Comment on above: Performed By: #### B MPX, LJ HAN, CDP #### [facility] [address] [place] [address] Glass Checker: Soraya Simpson MD Basic Metabolic Panel w/ Ref estefania to MGOrdered By: Micheal Kwok on 06-09-2021 Anion gap [Moles/Vol] 10 mmol/L 9 - 17 mmol/L [facility] Phone: Calcium [Mass/Vol] 8.8 mg/dL 8.6 - 10. 4 mg/dL [employer] Phone: Chloride [Moles/Vol] 102 mmol/L 98 - 10 7 mmol/L [employer] Phone: CO2 [Moles/Vol] 24 mmol/L 20 - 31 mmol/L [employer] Phone: Creatinine [Mass/Vol] 0.52 mg/dL Low 0.70 - 1.20 mg/dL [employer] Phone: GFR >60 >60 mL/min [facility] [employer] Work Phone: GFR Non- >60 >60 mL/min [facility] Work Phone: Glucose [Mass/Vol] 139 mg/dL High 70 - 99 mg/dL [facility] Work Phone: Interpretation and review of laboratory results Abnormal [facility] Work Phone: Potassium [Moles/Vol] 3.9 mmol/L 3.7 - 5.3 mmol/L [facility] Work Phone: Sodium [Moles/Vol] 136 mmol/L 135 - 144 mmol/L [facility] Work Phone: Urea nitrogen (BldV) [Mass/Vol] 16 mg/dL 6 - 20 mg/dL [facility] Work Phone: Urea nitrogen/Creatinine (Bld) [Mass ratio] [address] [facility] Work Phone: [facility] Work Phone: CBC Auto DifferentialOrdered By: Micheal Kwok on 06-09-2021 Absolute Eos # 0.15 [facility] Work Phone: Absolute Immature Granulocyte 0.[address] [facility] Work Phone: Absolute Lymph # 3.82 High [facility] Work Phone: Absolute [place] # 0.59 [facility] Work Phone: Basophils (Bld) [#/Vol] 0.00 10*3/uL [facility] Work Phone: Basophils/100 WBC (Bld) 0 % 0 - 2 % M [facility] Work Phone: Differential Type NOT REPORTED [facility] Work Phone: Eosinophils/100 WBC (Bld) 1 % 1 - 4 % [facility] Work Phone: Hematocrit (Bld) [Volume fraction] 46.1 % 40.7 - 50.3 % [employer] Phone: Hemoglobin.gastrointest inal spec 1 Ql (Stl) 15.5 g/dL 13.0 - 17.0 g/dL [employer] Phone: Immature granulocytes/100 WBC (Bld) 0 % 0 [facility] Phone: Interpretation and review of laboratory results Abnormal [employer] Phone: Lymphocytes/100 WBC (Bld) 26 % 24 - 43 % [employer] Phone: MCH (RBC) [Entitic mass] 29.4 pg 25.2 - 33.5 pg [employer] Phone: MCHC (RBC) [Mass/Vol] 33.6 g/dL 28.4 - 34.8 g/dL [employer] Phone: MCV (RBC) [Entitic vol] 87.3 fL 82.6 - 102.9 fL [employer] Phone: Monocytes/100 WBC (Bld) 4 % 3 - 12 % [facility] Phone: Morphology Mando (Bld) [Interp] Normal [facility] Phone: NRBC Automated 0.0 0.0 per 100 WBC [employer] Phone: Platelet distribution width (Bld) [Ratio] 12.9 % 11.8 - 14.4 % [employer] Phone: Platelet Estimate NOT REPORTED [employer] Phone: Platelet mean volume (Bld) [Entitic vol] 10.2 fL 8.1 - 13.5 fL [employer] Phone: Platelets (Bld) [#/Vol] 290 10*3/uL [employer] Phone: RBC (Bld) [#/Vol] 5.28 10*6/uL 4.21 - 5.7 7 m/uL [facility] Work Phone: RBC (Bld) [#/Vol] NOT REPORTED [employer] Work Phone: Segmented neutrophils/100 WBC (Bld) 69 % High 36 - 65 % [employer] Work Phone: Segs Absolute 10.14 High [facility] Work Phone: WBC (Bld) [#/Vol] 14.7 10*3/uL High [employer] Work Phone: WBC (Bld) [#/Vol] NOT REPORTED [employer] Work Phone: [employer] Work Phone: CBC with Diffon 06-09-2021 Abs. Basophil 0.00 k/uL Normal 0.0-0.2 [facility] Comment on above: Performed By: #### B MPX TROPKELLY StoneE, CDP #### [facility] [address] [place] [address] [place] [address] Glass Checker: Soraya Simpson MD Abs.Imm.Granulocyte 0.00 k/uL Normal 0.00-0.30 [facility] Comment on above: Performed By: #### B MPEMELY Courtney DIME, CDP #### [facility] [address] [place] [address] [place] [place], [place] [id number] Glass Checker: Soraya Simpson MD Abs.Neutrophil (Seg) 10.14 k/uL High 1.50-8.10 [facility] Comment on above: Performed By: #### B MPXEMELY DIME, CDP #### [address] [place] [address] Glass Checker: Soraya Simpson MD Basophils/100 WBC (Bld) 0 % Normal 0-2 [facility] Comment on above: Performed By: #### B MPX TROPI, DIME, CDP #### [facility] [address] [place], [place] [address]83 Glass Checker: Soraya Simpson MD Eosinophils (Bld) [#/Vol] 0.15 10*3/uL Normal 0.00-0.44 [facility] Comment on above: Performed By: #### B MPX, TROPI, DIME, CDP #### [facility] [address] [place] [address] Glass Checker: Soraya Simpson MD Eosinophils/100 WBC (Bld) 1 % Normal 1-4 [facility] Comment on above: Performed By: #### B MPX, TROPI, DIME, CDP #### [facility] [address] [place] [address] Glass Checker: Soraya Simpson MD Immature granulocytes/100 WBC (Bld) 0 % Normal 0 [facility] Comment on above: Performed By: #### B MPX, TROPI, DIME, CDP #### [facility] [address] [place], [place] [id number] Glass Checker: Soraya Simpson MD Lymphocytes (Bld) [#/Vol] 3.82 10*3/uL High 1.10-3.70 [facility] Comment on above: Performed By: #### B MPX, TROPI, DIME, CDP #### [facility] [address] [place] [address] Glass Checker: Soraya Simpson MD Lymphocytes/100 WBC (Bld) 26 % Normal 24-43 [facility] Comment on above: Performed By: #### B MPX, TROPI, DIME, CDP #### [facility] [address] [place], [place] [address]83 Glass Checker: Soraya Simpson MD Monocytes (Bld) [#/Vol] 0.59 10*3/uL Normal 0.10-1.20 [facility] Comment on above: Performed By: #### B MPX, TROPI, DIME, CDP #### [facility] [address] [place], [place] [id number] Glass Checker: Soraya Simpson MD Monocytes/100 WBC (Bld) 4 % Normal 3-12 [facility] Comment on above: Performed By: #### B MPX, TROPI, DIME, CDP #### [facility] [address] [place], [place] 8[address]4083 Glass Checker: Soraya Simpson MD Morphology Mando (Bld) [Interp] Normal Normal [facility] Comment on above: Performed By: #### B MPX, TROPI, DIME, CDP #### [facility] [address] [place], [place] 8[address]83 Glass Checker: Soraya Simpson MD Neutrophil (Seg) 69 % High 36-65 [facility] Comment on above: Performed By: #### B MPX, TROPI DIME, CDP #### [facility] [address] [place], [place] [id number] Glass Checker: Soraya Simpson MD Erythrocyte distribution width (RBC) [Ratio] 12.9 % Normal 11.8-14.4 [facility] Comment on above: Performed By: #### B MPRoz, TROPI DIME, CDP #### [facility] [address] [place], [place] [id number] Glass Checker: Soraya Simpson MD Hematocrit (Bld) [Volume fraction] 46.1 % Normal 40.7-50.3 [facility] Comment on above: Performed By: #### B MPX, TROPI DIME, CDP #### [facility] [address] [place], [place] [id number] Glass Checker: Soraya Simpson MD Hemoglobin (Bld) [Mass/Vol] 15.5 g/dL Normal 13.0-17.0 [facility] Comment on above: Performed By: #### B MPX, TROPI, DIME, CDP #### [facility] [address] [place] [address] Dr. [place], [facility] Glass Checker: Soraya Simpson MD MCH (RBC) [Entitic mass] 29.4 pg Normal 25.2-33.5 [facility] Comment on above: Performed By: #### B MPX, TROPI, DIME, CDP #### [address] [place], [facility] Glass Checker: Soraya Simpson MD MCHC (RBC) [Mass/Vol] 33.6 g/dL Normal 28.4-34.8 [facility] Comment on above: Performed By: #### B MPX, TROPI, DIME, CDP #### [address] [place], [facility] Glass Checker: Soraya Simpson MD MCV (RBC) [Entitic vol] 87.3 fL Normal 82.6-102.9 [facility] Comment on above: Performed By: #### B MPEMELY Courtney DIME, CDP #### [address] [place], [facility] Glass Checker: Soraya Simpson MD NRBC Automated 0.0 per 100 WBC Normal 0.0 [facility] Comment on above: Performed By: #### B MPX, TROPI DIME, CDP #### [address] [place], [facility] Glass Checker: Soraya Simpson MD Platelet mean volume (Bld) [Entitic vol] 10.2 fL Normal 8.1-13.5 [facility] Comment on above: Performed By: #### B MPX, TROPI, DIME, CDP #### [address] [place], [facility] Glass Checker: Soraya Simpson MD Platelets (Bld) [#/Vol] 290 10*3/uL Normal 138-453 [facility] Comment on above: Performed By: #### B MPX, TROPI, DIME, CDP #### [facility] [address] [place] [address] Glass Checker: Soraya Simpson MD RBC (Bld) [#/Vol] 5.28 10*6/uL Normal 4.21-5.77 [facility] Comment on above: Performed By: #### B MPX, TROPI, DIME, CDP #### [facility] [address] [place] [address] Glass Checker: Soraya Simpson MD WBC (Bld) [#/Vol] 14.7 10*3/uL High 3.5-11.3 [facility] Comment on above: Performed By: #### B MPX, TROPI, DIME, CDP #### [facility] [address] [place] [address] Glass Checker: Soraya Simpson MD Auto Diff Performed NOT REPORTED Normal [facility] Comment on above: Performed By: #### B MPX, TROPI, DIME, CDP #### [facility] [address] [place] [address] Glass Checker: Soraya Simpson MD Platelet Comment NOT REPORTED Normal [facility] Comment on above: Performed By: #### B MPX, TROPI, DIME, CDP #### [facility] [address] [place] [address] Glass Checker: Soraya Simpson MD RBC morphology finding Nom (Bld) NOT REPORTED Normal [facility] Comment on above: Performed By: #### B MPX, TROPI, DIME, CDP #### [facility] [address] [place] [address] Glass Checker: Soraya Simpson MD WBC Morphology NOT REPORTED Normal [facility] Comment on above: Performed By: #### B MPX, TROPI, DIME, CDP #### [facility] [address] [place] [address] Glass Checker: Soraya Simpson MD COVID-19, RapidOrdered By: Trinidad Kwok on 06-09-2021 SARS-CoV-2 (COVID-19) RNA FERMIN+probe Ql (Unsp spec) Not detected Not Detected [facility] Phone: Comment on above: Rapid NAAT: The [...] management decisions. Fact sheet for Healthcare Providers: https://www.fda.gov/media/059903/download Fact sheet for Patients: https://www.fda.gov/media/452955/download Methodology: Isothermal Nucleic Acid Amplification Specimen Description .NASOPHARYNGEAL SWAB [facility] Phone: [facility] Phone: D-Dimer Teston 06-09-2021 D-Dimer Test <0.27 Normal 0.00-0.59 [facility] Comment on above: Result Comment: When [...] with distal DVT. Performed By: #### B MPX, LJ HAN, CDP #### [facility] [address] [place] [address] Glass Checker: Soraya Simpson MD D-Dimer, QuantitativeOrdered By: Micheal Kwok on 06-09-2021 D-Dimer, Quant <0.27 [facility] Work Phone: Comment on above: When combined [...] more prevalent in patients with distal DVT. [facility] Phone: Laboratory - Chemistry and C hemistry - challengeOrdered By: Micheal Kwok on 06-09-2021 GFR/1.73 sq M.predicted MDRD (S/P/Bld) [Vol rate/Area] [facility] Phone: Comment on above: Average GFR for 40-4 9 years old: 99 mL/min/1.73sq m Chronic Kidney Disease: <60 mL/min/1.73sq m Kidney failure: <15 mL/min/1.73sq m eGFR calculated using average adult body mass. Additional eGFR calculator available at: http://www.KeepRecipes/multiple_crcl_2012.htm Stage 1: Some kidney damage normal GFR Stage 2: Mild kidney damage GFR 60-89 Stage 3: Moderate kidney damage GFR 30-59 Stage 4: Severe kidney damage GFR 15-29 Stage 5: Severe kidney damage GFR <15 ESRD - chronic treatment by dialysis or transplant [id number] 06-09-2021 SARS-CoV-2 (COVID-19) RNA FERMIN+probe Ql (Unsp spec) Not detected Normal [facility] Comment on above: Result Comment: Rapid [...] management decisions. Fact sheet for Healthcare Providers: https://www.fda.gov/media/759574/download Fact sheet for Patients: https://www.fda.gov/media/534564/download Methodology: Isothermal Nucleic Acid Amplification Performed By: #### C OVRB #### [facility] [address] [place], [place] [id number] Glass Checker: Soraya Simpson MD Troponinon 06-09-2021 Troponin, High Sens 8 ng/L Normal 0-22 [facility] Comment on above: Result Comment: High Sensitivity Troponin values cannot be compared with other Troponin methodologies. Patients with high levels of Biotin oral intake (i.e >5mg/day) may have falsely decreased Troponin levels. Samples collected within 8 hours of biotin intake may require additional information for diagnosis. Performed By: #### B MPX, TROPI, DIME, CDP #### [facility] [address] [place], [place] [id number] Glass Checker: Soraya Simpson MD Troponin Interp. NOT REPORTED Normal [facility] Comment on above: Performed By: #### B MPX, TROPI, DIME, CDP #### [facility] [address] [place] [address] Dr. [place], [place] [id number] Glass Checker: Soraya Simpson MD Troponin T NOT REPORTED Normal <0.03 [facility] Comment on above: Performed By: #### B MPX, TROPI, DIME, CDP #### [address] [place], [place] [id number] Glass Checker: Soraya Simpson MD TroponinOrdered By: Micheal Kwok on 06-09-2021 Troponin Interp NOT REPORTED [facility] [employer] Work Phone: Troponin T NOT REPORTED <0.03 ng/mL [facility] Work Phone: Troponin, High Sensitivity 8 ng/L 0 - 22 ng/L [facility] [employer] Phone: Comment on above: High Sensitivity Troponin values cannot be compared with other Troponin methodologies. Patients with high levels of Biotin oral intake (i.e >5mg/day) may have falsely decreased Troponin levels. Samples collected within 8 hours of biotin intake may require additional information for diagnosis. [employer] Phone: XR CHEST PORTABLEon 06-09-20 XR CHEST [...] Sadi Olmedo MD 06/09/21 Final result Normal [facility] XR CHEST PORTABLEOrdered By: Micheal Kwok on 06-09-2021 Unremarkable single portable AP chest. [facility] Phone: EXAMINATION: ONE XRA Y VIEW OF [...] seen. Bones and soft tissues are unremarkable. [facility] Phone: Jasen, Mhpn Incoming Radiant Results From [place] - 06/09/2021 6:01 AM EDT EXAMINATION: ONE [...] unremarkable. IMPRESSION: Unremarkable single portable AP chest. [facility] Phone: [facility] Phone: COVID-19, RapidOrdered By: Geovani Tapia on 06-07-2021 SARS-CoV-2 (COVID-19) RNA FERMIN+probe Ql (Unsp spec) Not detected Not Detected [facility] Phone: Comment on above: Rapid NAAT: The [...] management decisions. Fact sheet for Healthcare Providers: https://www.fda.gov/media/619974/download Fact sheet for Patients: https://www.fda.gov/media/351127/download Methodology: Isothermal Nucleic Acid Amplification Specimen Description .NASOPHARYNGEAL SWAB [facility] Phone: [facility] Phone: [id number] 06-07-2021 SARS-CoV-2 (COVID-19) RNA FERMIN+probe Ql (Unsp spec) Not detected Normal [facility] Comment on above: Result Comment: Rapid [...] management decisions. Fact sheet for Healthcare Providers: https://www.fda.gov/media/349143/download Fact sheet for Patients: https://www.fda.gov/media/845248/download Methodology: Isothermal Nucleic Acid Amplification Performed By: #### C OVRB #### [facility] [address] [place] [address] Glass Checker: Soraya Simpson MD XR CHEST PORTABLEon 06-07-20 [...] Ger Morin MD 06/07/21 Final result Normal [facility] XR CHEST PORTABLEOrdered By: Linette Tapia on 06-07-2021 No acute process. [facility] [employer] Work Phone: EXAMINATION: ONE XRA Y VIEW OF THE CHEST 06/07/2021 2:53 pm COMPARISON: 02/17/2018 HISTORY: ORDERING SYSTEM PROVIDED HISTORY: cough, chest pain TECHNOLOGIST PROVIDED HISTORY: cough, chest pain FINDINGS: The lungs are without acute focal process. There is no effusion or pneumothorax. The cardiomediastinal silhouette is without acute process. The osseous structures are without acute process. [employer] Work Phone: Jasen, Mhpn Incoming Radiant Results From [facility] - 06/07/2021 6:16 PM EDT EXAMINATION: ONE XRAY VIEW OF THE CHEST 06/07/2021 2:53 pm COMPARISON: 02/17/2018 HISTORY: ORDERING SYSTEM PROVIDED HISTORY: cough, chest pain TECHNOLOGIST PROVIDED HISTORY: cough, chest pain FINDINGS: The lungs are without acute focal process. There is no effusion or pneumothorax. The cardiomediastinal silhouette is without acute process. The osseous structures are without acute process. IMPRESSION: No acute process. [facility] Phone: [facility] [employer] Work Phone: CBC AUTO DIFFon 02-11-2021 BASO # 0.1 103/ul Normal 0.0-0.[address] [facility] Comment on above: Performed By: #### C BC #### [facility] [address] [id number] Lora Waleska Basophils/100 WBC (Bld) 0.5 % Normal 0.2-2.0 [facility] Comment on above: Performed By: #### C BC #### [facility] [address] [id number] Lora Waleska EO # 0.1 103/ul Normal 0.0-0.[address] [facility] Comment on above: Performed By: #### C BC #### [facility] [address] [place] [address] Lora Waleska Eosinophils/100 WBC (Bld) 1.0 % Normal 0.9-7.[address] [facility] Comment on above: Performed By: #### C BC #### [facility] [address] [place] [address] Lora Waleska Erythrocyte distribution width (RBC) [Ratio] 13.3 % Normal 11.0-15.[address] [facility] Comment on above: Performed By: #### C BC #### [facility] [address] [place], [place] [address] Lora Waleska Hematocrit (Bld) [Volume fraction] 42.5 % Normal 42.0-54.[address] [facility] Comment on above: Performed By: #### C BC #### [facility] [address] [place], [place] [address] Lora Waleska Hemoglobin (Bld) [Mass/Vol] 14.5 g/dL Normal 14.0-18.[address] [facility] Comment on above: Performed By: #### C BC #### [facility] [address] [place], [place] [address] Lora Waleska IG # 0.05 10e3/ul Critically high 0.00-0.03 [facility] Comment on above: Performed By: #### C BC #### [facility] [address] [id number] Lora Waleska IG % 0.3 % Normal 0.0-0.[address] [facility] Comment on above: Performed By: #### C BC #### [facility] [address] [place], [place] [address] Lora Waleska LYMPH # 3.4 103/ul Normal 1.2-3.[address] [facility] Comment on above: Performed By: #### C BC #### [facility] [address] [place], [place] [address] Lora Galeano Lymphocytes/100 WBC (Bld) 23.1 % Normal 20.5-60.[address] [facility] Comment on above: Performed By: #### C BC #### [facility] [address] [place], [place] [address] Lora Galeano MANUAL DIFF REQ NO Normal [facility] Comment on above: Performed By: #### C BC #### [facility] [address] [place], [place] [address] Loralyn Galeano MCH (RBC) [Entitic mass] 29.1 pg Normal 25.9-34.[address] [facility] Comment on above: Performed By: #### C BC #### [facility] [address] [place] [address] Lora Galeano MCHC (RBC) [Mass/Vol] 34.1 g/dL Normal 29.9-35.[address] [facility] Comment on above: Performed By: #### C BC #### [facility] [address] [place], [place] [address] Loralyn Galeano MCV (RBC) [Entitic vol] 85.3 fL Normal 80.0-94.0 [facility] Comment on above: Performed By: #### C BC #### [facility] [address] [place], [place] [address] Lora Waleska MONO # 0.9 103/ul Critically high 0.3-0.8 [facility] Comment on above: Performed By: #### C BC #### [facility] [address] [place], [place] [address] Lora Spenceen Monocytes/100 WBC (Bld) 6.5 % Normal 1.7-12.0 [facility] Comment on above: Performed By: #### C BC #### [facility] [address] [place], [place] [address] Lora Spenceen NEUT # 10.0 103/ul Critically high 1.4-6.5 [facility] Comment on above: Performed By: #### C BC #### [facility] [address] [place], [place] [address] Lora Waleska Neutrophils/100 WBC (Bld) 68.6 % Normal 43.0-75.[address] [facility] Comment on above: Performed By: #### C BC #### [facility] [address] [place], [place] [address] Lora Galeano Platelet mean volume (Bld) [Entitic vol] 11.2 fL Normal 9.5-13.[address] [facility] Comment on above: Performed By: #### C BC #### [facility] [address] [place], [place] [address] Lora Waleska PLT 261 103/ul Normal 150-450 [facility] Comment on above: Performed By: #### C BC #### [facility] [address] [place], [place] [address] Lora Waleska RBC 4.98 106/ul Normal 4.70-6.[address] [facility] Comment on above: Performed By: #### C BC #### [facility] [address] [place], [place] [address] Lora Waleska WBC 14.5 103/ul Critically high 4.0-11.0 [facility] Comment on above: Performed By: #### C BC #### [facility] [address] [place], [place] [address] Lora Waleska CT LSPINE WO CONon 1 [...] SORAYA STEWART Date: 2021-02-11 16:04 Normal [facility] PROF CHEM 8 (BAS METB)on Anion gap [Moles/Vol] 14.3 mmol/L Normal [facility] Comment on above: Performed By: #### B MP #### [facility] [address] [place] [address] Lora Waleska Calcium [Mass/Vol] 8.8 mg/dL Normal 8.4-10.2 [facility] Comment on above: Performed By: #### B MP #### [facility] [address] [place] [address] Lora Waleska Chloride [Moles/Vol] 104 mmol/L Normal 98-107 [facility] Comment on above: Performed By: #### B MP #### [facility] [address] [place] [address] Lora Waleska CO2 [Moles/Vol] 24.3 mmol/L Normal 22.0-30.0 [facility] Comment on above: Performed By: #### B MP #### [facility] [address] [address] Lora Waleska Creatinine [Mass/Vol] 0.79 mg/dL Normal 0.66-1.[address] [facility] Comment on above: Performed By: #### B MP #### [facility] [address] [place], [place] [address] Lora Waleska EGFR-AF VENEZUELAN >60 Normal >=60 [facility] Comment on above: Performed By: #### B MP #### [facility] [address] [place], [place] [address] Lora Waleska EGFR-NON AF VENEZUELAN >60 Normal >=[address] [facility] Comment on above: Performed By: #### B MP #### [facility] [address] [place], [place] [address] Lora Waleska Glucose [Mass/Vol] 107 mg/dL Critically high 74-106 [facility] Comment on above: Performed By: #### B MP #### [facility] [address] [place], [place] [address] Lora Waleska Potassium [Moles/Vol] 3.6 mmol/L Normal 3.4-5.[address] [facility] Comment on above: Performed By: #### B MP #### [facility] [address] [phone] Lora Waleska Sodium [Moles/Vol] 139 mmol/L Normal 137-145 [facility] Comment on above: Performed By: #### B MP #### [facility] [address] [phone] Lora Waleska Urea nitrogen [Mass/Vol] 9.0 mg/dL Normal 9.0-20.[address] [facility] Comment on above: Performed By: #### B MP #### [facility] [address] [phone] Lora Waleska Urea nitrogen/Creatinine [Mass ratio] 11.4 mg/mg Normal [facility] Comment on above: Performed By: #### B MP #### [facility] [address] [place], [place] [address] Lora Waleska Amylaseon 06-13-2019 Amylase [Catalytic activity/Vol] 58 U/L Normal 28-100 [facility] Comment on above: Performed By: #### C BC, PT, CMPX, ALEJANDRO, LIP, MG, KAM, TRIG #### [facility] [address] [place] [address] Glass Checker: Sadi Gambino MD #### IOCAL #### [facility] [address] [place] [address] Glass Checker: Sha Nicholson MD Amylase [Catalytic activity/Vol] 58 U/L 28 - 100 U/L [place], [place] CBC Auto Differentialon 11-0 Basophils (Bld) [#/Vol] 0.04 10*3/uL [place] Basophils/100 WBC (Bld) 0 % 0 - 2 % M [place], [place] Differential Type NOT REPORTED [place] Eosinophils (Bld) [#/Vol] 10*3/uL [place] Eosinophils/100 WBC (Bld) 0 % Low 1 - 4 % [place] Erythrocyte distribution width (RBC) [Ratio] 12.2 % 11.8 - 14.4 % [place] Hematocrit (Bld) [Volume fraction] 40.6 % Low 40.7 - 50.3 % [place] Hemoglobin (Bld) [Mass/Vol] 14.7 g/dL 13 - 17 g/dL [place] Immature granulocytes (Bld) [#/Vol] 0.10 10*3/uL [place] Immature granulocytes (Bld) [#/Vol] 1 % High 0 [place] Interpretation and review of laboratory results Abnormal [place] Lymphocytes (Bld) [#/Vol] 2.50 10*3/uL [place] Lymphocytes/100 WBC (Bld) 16 % Low 24 - 43 % [place] MCH (RBC) [Entitic mass] 30.9 pg 25.2 - 33.5 pg [place] MCHC (RBC) [Mass/Vol] 36.2 g/dL High 28.4 - 34.8 g/dL [place] MCV (RBC) [Entitic vol] 85.5 fL 82.6 - 102.9 fL [place] Monocytes (Bld) [#/Vol] 1.08 10*3/uL [place] Monocytes/100 WBC (Bld) 7 % 3 - 12 % [place] Platelet mean volume (Bld) [Entitic vol] 10.7 fL 8.1 - 13.5 fL [place] Platelets (Bld) [#/Vol] 299 10*3/uL [place] Platelets (Bld) [#/Vol] NOT REPORTED [place] RBC (Bld) [#/Vol] 4.75 10*6/uL 4.21 - 5.7 7 m/uL [place] RBC morphology finding Nom (Bld) NOT REPORTED [place] Segmented neutrophils/100 WBC (Bld) 77 % High 36 - 65 % [place] Segs Absolute 12.16 High [place] WBC (Bld) [#/Vol] 15.9 10*3/uL [place] WBC (Bld) [#/Vol] 0.0 10*3/uL 0.0 per 10 0 WBC [place] WBC Morphology NOT REPORTED [place] CBC with Diffon 06-13-2019 Abs. Basophil 0.04 k/uL Normal 0.00-0.20 [facility] Comment on above: Performed By: #### C BC, PT, CMPX, ALEJANDRO, LIP, MG, KAM, TRIG #### [facility] [address] [place] [address] Glass Checker: Sadi Gambino MD #### IOCAL #### [place] [address] Glass Checker: Sha Nicholson MD Abs.Imm.Granulocyte 0.10 k/uL Normal 0.00-0.30 [facility] Comment on above: Performed By: #### C BC, PT, CMPX, ALEJANDRO, LIP, MG, KAM, TRIG #### [facility] [place] [address] Glass Checker: Sadi Gambino MD #### IOCAL #### [address] [id number] Glass Checker: Sha Nicholson MD Abs.Neutrophil (Seg) 12.16 k/uL High 1.50-8.10 [facility] Comment on above: Performed By: #### C BC, PT, CMPX, ALEJANDRO, LIP, MG, KAM, TRIG #### [facility] [address] [place] [address] Glass Checker: Sadi Gambino MD #### IOCAL #### [address] [address] Glass Checker: Sha Nicholson MD Basophils/100 WBC (Bld) 0 % Normal 0-2 [facility] Comment on above: Performed By: #### C BC, PT, CMPX, ALEJANDRO, LIP, MG, KAM, TRIG #### [facility] [address] [place] [address] Glass Checker: Sadi Gambino MD #### IOCAL #### [address] [address] Glass Checker: Sha Nicholson MD Eosinophils (Bld) [#/Vol] 10*3/uL Normal 0.00-0.44 [facility] Comment on above: Performed By: #### C BC, PT, CMPX, ALEJANDRO, LIP, MG, KAM, TRIG #### [facility] [address] [place] [address] Glass Checker: Sadi Gambino MD #### IOCAL #### [address] [address] Glass Checker: Sha Nicholson MD Eosinophils/100 WBC (Bld) 0 % Low 1-4 [facility] Comment on above: Performed By: #### C BC, PT, CMPX, ALEJANDRO, LIP, MG, KAM, TRIG #### [facility] [address] [place] [address] Glass Checker: Sadi Gambino MD #### IOCAL #### [address] [address] Glass Checker: Sha Nicholson MD Erythrocyte distribution width (RBC) [Ratio] 12.2 % Normal 11.8-14.4 [facility] Comment on above: Performed By: #### C BC, PT, CMPX, ALEJANDRO, LIP, MG, KAM, TRIG #### [facility] [address] [place] [address] Glass Checker: Sadi Gambino MD #### IOCAL #### [address] [address] Glass Checker: Sha Nicholson MD Hematocrit (Bld) [Volume fraction] 40.6 % Low 40.7-50.3 [facility] Comment on above: Performed By: #### C BC, PT, CMPX, ALEJANDRO, LIP, MG, KAM, TRIG #### [facility] [address] [place] [address] Glass Checker: Sadi Gambino MD #### IOCAL #### [address] [address] Glass Checker: Sha Nicholson MD Hemoglobin (Bld) [Mass/Vol] 14.7 g/dL Normal 13.0-17.0 [facility] Comment on above: Performed By: #### C BC, PT, CMPX, ALEJANDRO, LIP, MG, KAM, TRIG #### [facility] [address] [place] [address] Glass Checker: Sadi Gambino MD #### IOCAL #### [address] [address] Glass Checker: Sha Nicholson MD Immature granulocytes (Bld) [#/Vol] 1 % High 0 [facility] Comment on above: Performed By: #### C BC, PT, CMPX, ALEJANDRO, LIP, MG, KAM, TRIG #### [facility] [address] [place] [id number] Glass Checker: Sadi Gambino MD #### IOCAL #### [address] [address] Glass Checker: Sha Nicholson MD Lymphocytes (Bld) [#/Vol] 2.50 10*3/uL Normal 1.10-3.70 [facility] Comment on above: Performed By: #### C BC, PT, CMPX, ALEJANDRO, LIP, MG, KAM, TRIG #### [facility] [address] [place] [address] Glass Checker: Sadi Gambino MD #### IOCAL #### [place] [address] Glass Checker: Sha Nicholson MD Lymphocytes/100 WBC (Bld) 16 % Low 24-43 [facility] Comment on above: Performed By: #### C BC, PT, CMPX, ALEJANDRO, LIP, MG, KAM, TRIG #### [facility] [address] [place] [id number] Glass Checker: Sadi Gambino MD #### IOCAL #### [address] [address] Glass Checker: Sha Nicholson MD MCH (RBC) [Entitic mass] 30.9 pg Normal 25.2-33.5 [facility] Comment on above: Performed By: #### C BC, PT, CMPX, ALEJANDRO, LIP, MG, KAM, TRIG #### [facility] [address] [place] [phone] Glass Checker: Sadi Gambino MD #### IOCAL #### [address] [address] Glass Checker: Sha Nicholson MD MCHC (RBC) [Mass/Vol] 36.2 g/dL High 28.4-34.8 [facility] Comment on above: Performed By: #### C BC, PT, CMPX, ALEJANDRO, LIP, MG, KAM, TRIG #### [facility] [address] [place] [address] Glass Checker: Sadi Gambino MD #### IOCAL #### [address] [address] Glass Checker: Sha Nicholson MD MCV (RBC) [Entitic vol] 85.5 fL Normal 82.6-102.9 M [facility] Comment on above: Performed By: #### C BC, PT, CMPX, ALEJANDRO, LIP, MG, KAM, TRIG #### [facility] [address] [place] [address] Glass Checker: Sadi Gambino MD #### IOCAL #### [place] [address] Glass Checker: Sha Nicholson MD Monocytes (Bld) [#/Vol] 1.08 10*3/uL Normal 0.10-1.20 [facility] Comment on above: Performed By: #### C BC, PT, CMPX, ALEJANDRO, LIP, MG, KAM, TRIG #### [facility] [address] [place] [address] Glass Checker: Sadi Gambino MD #### IOCAL #### [address] [address] Glass Checker: Sha Nicholson MD Monocytes/100 WBC (Bld) 7 % Normal 3-12 M [facility] Comment on above: Performed By: #### C BC, PT, CMPX, ALEJANDRO, LIP, MG, KAM, TRIG #### [facility] [place] [address] Glass Checker: Sadi Gambino MD #### IOCAL #### [address] [address] Glass Checker: Sha Nicholson MD Neutrophil (Seg) 77 % High 36-65 [facility] Comment on above: Performed By: #### C BC, PT, CMPX, ALEJANDRO, LIP, MG, KAM, TRIG #### [facility] [address] [place] [address] Glass Checker: Sadi Gambino MD #### IOCAL #### [address] [address] Glass Checker: Sha Nicholson MD NRBC Automated 0.0 per [address] [facility] Comment on above: Performed By: #### C BC, PT, CMPX, ALEJANDRO, LIP, MG, KAM, TRIG #### [facility] [address] [place] [address] Glass Checker: Sadi Gambino MD #### IOCAL #### [address] [address] Glass Checker: Sah Nicholson MD Platelet mean volume (Bld) [Entitic vol] 10.7 fL Normal 8.1-13.5 [facility] Comment on above: Performed By: #### C BC, PT, CMPX, ALEJANDRO, LIP, MG, KAM, TRIG #### [facility] [address] [place] [address] Glass Checker: Sadi Gambino MD #### IOCAL #### [address] [address] Glass Checker: Sha Nicholson MD Platelets (Bld) [#/Vol] 299 10*3/uL Normal 138-453 [facility] Comment on above: Performed By: #### C BC, PT, CMPX, ALEJANDRO, LIP, MG, KAM, TRIG #### [facility] [address] [place] [address] Glass Checker: Sadi Gambino MD #### IOCAL #### [address] [address] Glass Checker: Sha Nicholson MD RBC (Bld) [#/Vol] 4.75 10*6/uL Normal 4.21-5.77 [facility] Comment on above: Performed By: #### C BC, PT, CMPX, ALEJANDRO, LIP, MG, KAM, TRIG #### [facility] [address] [place] [address] Glass Checker: Sadi Gambino MD #### IOCAL #### [address] [address] Glass Checker: Sha Nicholson MD WBC (Bld) [#/Vol] 15.9 10*3/uL High 3.5-11.3 [facility] Comment on above: Performed By: #### C BC, PT, CMPX, ALEJANDRO, LIP, MG, KAM, TRIG #### [facility] [address] [place] [address] Glass Checker: Sadi Gambino MD #### IOCAL #### [address] [address] Glass Checker: Sha Nicholson MD Auto Diff Performed NOT REPORTED Normal [facility] Comment on above: Performed By: #### C BC, PT, CMPX, ALEJANDRO, LIP, MG, KAM, TRIG #### [facility] [address] [place] [address] Glass Checker: Sadi Gambino MD #### IOCAL #### [address] [address] Glass Checker: Sha Nicholson MD Platelets (Bld) [#/Vol] NOT REPORTED Normal [facility] Comment on above: Performed By: #### C BC, PT, CMPX, ALEJANDRO, LIP, MG, KAM, TRIG #### [facility] [address] [place] [address] Glass Checker: Sadi Gambino MD #### IOCAL #### [address] [address] Glass Checker: Sha Nicholson MD RBC morphology finding Nom (Bld) NOT REPORTED Normal [facility] Comment on above: Performed By: #### C BC, PT, CMPX, ALEJANDRO, LIP, MG, KAM, TRIG #### [facility] [address] [place] [address] Glass Checker: Sadi Gambino MD #### IOCAL #### [address] [address] Glass Checker: Sha Nicholson MD WBC Morphology NOT REPORTED Normal [facility] Comment on above: Performed By: #### C BC, PT, CMPX, ALEJANDRO, LIP, MG, KAM, TRIG #### [facility] [address] [place] [address] Glass Checker: Sadi Gambino MD #### IOCAL #### [address] [address] Glass Checker: Sha Nicholson MD Comp Metab w/Bili Pron 06-13 (cont.) Normal [facility] Comment on above: Result Comment: Aver age GFR for 30-39 years old: 107 mL/min/1.73sq m Chronic Kidney Disease: <60 mL/min/1.73sq m Kidney failure: <15 mL/min/1.73sq m eGFR calculated using average adult body mass. Additional eGFR calculator available at: http://www.[employer]/multiple_crcl_2012.htm Performed By: #### C BC, PT, CMPX, ALEJANDRO, LIP, MG, KAM, TRIG #### [facility] [place] [address] Glass Checker: Sadi Gambino MD #### IOCAL #### [address] [address] Glass Checker: Sha Nicholson MD Albumin [Mass/Vol] 4.3 g/dL Normal 3.5-5.2 [facility] Comment on above: Performed By: #### C BC, PT, CMPX, ALEJANDRO, LIP, MG, KAM, TRIG #### [facility] [address] [place] [address] Glass Checker: Sadi Gambino MD #### IOCAL #### [address] [address] Glass Checker: Sha Nicholson MD Alkaline Phos 91 U/L Normal 40-129 [facility] Comment on above: Performed By: #### C BC, PT, CMPX, ALEJANDRO, LIP, MG, KAM, TRIG #### [facility] [address] [place] [address] Glass Checker: Sadi Gambino MD #### IOCAL #### [address] [address] Glass Checker: Sha Nicholson MD ALT [Catalytic activity/Vol] 187 U/L High 5-41 [facility] Comment on above: Performed By: #### C BC, PT, CMPX, ALEJANDRO, LIP, MG, KAM, TRIG #### [facility] [address] [place] [address] Glass Checker: Sadi Gambino MD #### IOCAL #### [address] [address] Glass Checker: Sha Nicholson MD Anion gap [Moles/Vol] 12 mmol/L Normal 9-17 [facility] Comment on above: Performed By: #### C BC, PT, CMPX, ALEJANDRO, LIP, MG, KAM, TRIG #### [facility] [address] [place] [address] Glass Checker: Sadi Gambino MD #### IOCAL #### [address] [address] Glass Checker: Sha Nicholson MD AST [Catalytic activity/Vol] 91 U/L High <40 [facility] Comment on above: Performed By: #### C BC, PT, CMPX, ALEJANDRO, LIP, MG, KAM, TRIG #### [facility] [address] [place] [address] Glass Checker: Sadi Gambino MD #### IOCAL #### [address] [address] Glass Checker: Sha Nicholson MD Bilirubin Ql (U) 0.74 mg/dL Normal 0.3-1.2 [facility] Comment on above: Performed By: #### C BC, PT, CMPX, ALEJANDRO, LIP, MG, KAM, TRIG #### [facility] [address] [place] [address] Glass Checker: Sadi Gambino MD #### IOCAL #### [address] [address] Glass Checker: Sha Nicholson MD Bilirubin, Indirect 0.46 mg/dL Normal 0.00-1.00 [facility] Comment on above: Performed By: #### C BC, PT, CMPX, ALEJANDRO, LIP, MG, KAM, TRIG #### [facility] [address] [place] [address] Glass Checker: Sadi Gambino MD #### IOCAL #### [address] [address] Glass Checker: Sha Nicholson MD Bilirubin.direct [Mass/Vol] 0.28 mg/dL Normal <0.31 [facility] Comment on above: Performed By: #### C BC, PT, CMPX, ALEJANDRO, LIP, MG, KAM, TRIG #### [facility] [address] [place] [address] Glass Checker: Sadi Gambino MD #### IOCAL #### [address] [address] Glass Checker: Sha Nicholson MD Calcium [Mass/Vol] 9.3 mg/dL Normal 8.6-10.4 [facility] Comment on above: Performed By: #### C BC, PT, CMPX, ALEJANDRO, LIP, MG, KAM, TRIG #### [facility] [address] [place] [address] Glass Checker: Sadi Gambino MD #### IOCAL #### [address] [address] Glass Checker: Sha Nicholson MD Chloride [Moles/Vol] 100 mmol/L Normal 98-107 [facility] Comment on above: Performed By: #### C BC, PT, CMPX, ALEJANDRO, LIP, MG, KAM, TRIG #### [facility] [address] [place] [address] Glass Checker: Sadi Gambino MD #### IOCAL #### [address] [address] Glass Checker: Sha Nicholson MD CO2 [Moles/Vol] 26 mmol/L Normal 20-31 [facility] Comment on above: Performed By: #### C BC, PT, CMPX, ALEJANDRO, LIP, MG, KAM, TRIG #### [facility] [address] [place] [address] Glass Checker: Sadi Gambino MD #### IOCAL #### [address] [address] Glass Checker: Sha Nicholson MD Creatinine [Mass/Vol] 0.56 mg/dL Low 0.70-1.20 [facility] Comment on above: Performed By: #### C BC, PT, CMPX, ALEJANDRO, LIP, MG, KAM, TRIG #### [facility] [address] [place] [phone] Glass Checker: Sadi Gambino MD #### IOCAL #### [address] [address] Glass Checker: Sha Nicholson MD GFR, Amer >60 Normal >60 [facility] Comment on above: Performed By: #### C BC, PT, CMPX, ALEJANDRO, LIP, MG, KAM, TRIG #### [facility] [address] [place] [address] Glass Checker: Sadi Gambino MD #### IOCAL #### [address] [address] Glass Checker: Sha Nicholson MD GFR,non Amer >60 Normal >60 [facility] Comment on above: Performed By: #### C BC, PT, CMPX, ALEJANDRO, LIP, MG, KAM, TRIG #### [facility] [address] [place] [address] Glass Checker: Sadi Gambino MD #### IOCAL #### [address] [address] Glass Checker: Sha Nicholson MD Glucose [Mass/Vol] 119 mg/dL High 70-99 [facility] Comment on above: Performed By: #### C BC, PT, CMPX, ALEJANDRO, LIP, MG, KAM, TRIG #### [facility] [address] [place] [address] Glass Checker: Sadi Gambino MD #### IOCAL #### [address] [address] Glass Checker: Sha Nicholson MD Potassium [Moles/Vol] 3.9 mmol/L Normal 3.7-5.3 [facility] Comment on above: Performed By: #### C BC, PT, CMPX, ALEJANDRO, LIP, MG, KAM, TRIG #### [facility] [address] [place] [address] Glass Checker: Sadi Gambino MD #### IOCAL #### [address] [address] Glass Checker: Sha Nicholson MD Protein [Mass/Vol] 7.1 g/dL Normal 6.4-8.3 [facility] Comment on above: Performed By: #### C BC, PT, CMPX, ALEJANDRO, LIP, MG, KAM, TRIG #### [facility] [address] [place] [address] Glass Checker: Sadi Gambino MD #### IOCAL #### [address] [address] Glass Checker: Sha Nicholson MD Sodium [Moles/Vol] 138 mmol/L Normal 135-144 [facility] Comment on above: Performed By: #### C BC, PT, CMPX, ALEJANDRO, LIP, MG, KAM, TRIG #### [facility] [address] [place] [address] Glass Checker: Sadi Gambino MD #### IOCAL #### [address] [address] Glass Checker: Sha Nicholson MD Urea nitrogen [Mass/Vol] 8 mg/dL Normal 6-20 [facility] Comment on above: Performed By: #### C BC, PT, CMPX, ALEJANDRO, LIP, MG, KAM, TRIG #### [facility] [address] [place] [address] Glass Checker: Sadi Gambino MD #### IOCAL #### [address] [address] Glass Checker: Sha Nicholson MD Albumin/Globulin [Mass ratio] NOT REPORTED Normal 1.0-2.5 [facility] Comment on above: Performed By: #### C BC, PT, CMPX, ALEJANDRO, LIP, MG, KAM, TRIG #### [facility] [address] [place] [address] Glass Checker: Sadi Gambino MD #### IOCAL #### [address] [address] Glass Checker: Sha Nicholson MD Staging: NOT REPORTED Normal [facility] Comment on above: Performed By: #### C BC, PT, CMPX, ALEJANDRO, LIP, MG, KAM, TRIG #### [facility] [address] [place] [address] Glass Checker: Sadi Gambino MD #### IOCAL #### [address] [address] Glass Checker: Sha Nicholson MD Comp Metabolic w Bili Profil med 06-13-2019 Albumin [Mass/Vol] 4.3 g/dL 3.5 - 5.2 g/dL [place] Albumin/Globulin [Mass ratio] NOT REPORTED [place] ALP [Catalytic activity/Vol] 91 U/L 40 - 129 U/L [place] ALT [Catalytic activity/Vol] 187 U/L High 5 - 41 U/L [place] Anion gap [Moles/Vol] 12 mmol/L 9 - 17 mmol/L [place] AST [Catalytic activity/Vol] 91 U/L High <40 [place] Bilirubin Ql (U) 0.74 mg/dL 0.3 - 1.2 mg/dL [place] Bilirubin, Indirect 0.46 mg/dL 0 - 1 mg/dL [place] Bilirubin.direct [Mass/Vol] 0.28 mg/dL <0.31 [place] Calcium [Mass/Vol] 9.3 mg/dL 8.6 - 10. 4 mg/dL [place] Chloride [Moles/Vol] 100 mmol/L 98 - 10 7 mmol/L [place] CO2 [Moles/Vol] 26 mmol/L 20 - 31 mmol/L [place] Creatinine [Mass/Vol] 0.56 mg/dL Low 0.7 - 1.2 mg/dL [place] GFR >60 >60 mL/min [place] GFR Non- >60 >60 mL/min [place] GFR/1.73 sq M predicted among non-blacks MDRD (S/P/Bld) [Vol rate/Area] NOT REPORTED [place] GFR/1.73 sq M predicted among non-blacks MDRD (S/P/Bld) [Vol rate/Area] [place] Comment on above: Average GFR for 30-3 9 years old: 107 mL/min/1.73sq m Chronic Kidney Disease: <60 mL/min/1.73sq m Kidney failure: <15 mL/min/1.73sq m eGFR calculated using average adult body mass. Additional eGFR calculator available at: http://www.[employer]/multiple_crcl_2012.htm Glucose [Mass/Vol] 119 mg/dL High 70 - 99 mg/dL [place], [place] Interpretation and review of laboratory results Abnormal [place] Potassium [Moles/Vol] 3.9 mmol/L 3.7 - 5.3 mmol/L [place] Protein [Mass/Vol] 7.1 g/dL 6.4 - 8.3 g/dL [place] Sodium [Moles/Vol] 138 mmol/L 135 - 144 mmol/L [place] Urea nitrogen [Mass/Vol] 8 mg/dL 6 - 20 mg/dL [place] Lipaseon 06-13-2019 Lipase [Catalytic activity/Vol] 59 U/L Normal 13-60 [facility] Comment on above: Performed By: #### C BC, PT, CMPX, ALEJANDRO, LIP, MG, KAM, TRIG #### [facility] [address] [place] [address] Glass Checker: Sadi Gambino MD #### IOCAL #### [address] [address] Glass Checker: Sha Nicholson MD Lipase [Catalytic activity/Vol] 59 U/L 13 - 60 U/L [place] Magnesiumon 06-13-2019 Magnesium [Mass/Vol] 1.9 mg/dL Normal 1.6-2.6 [facility] Comment on above: Performed By: #### C BC, PT, CMPX, ALEJANDRO, LIP, MG, KAM, TRIG #### [facility] [address] [place] [address] Glass Checker: Sadi Gambino MD #### IOCAL #### [address] [address] Glass Checker: Sha Nicholson MD Magnesium [Mass/Vol] 1.9 mg/dL 1.6 - 2 .6 mg/dL [place] Basic Metabolic Panelon 11-0 Anion gap [Moles/Vol] 11 mmol/L 9 - 17 mmol/L [place] Bun/Cre Ratio 20 [place] Calcium [Mass/Vol] 9.0 mg/dL 8.6 - 10. 4 mg/dL [place] Chloride [Moles/Vol] 101 mmol/L 98 - 10 7 mmol/L [place] CO2 [Moles/Vol] 24 mmol/L 20 - 31 mmol/L [place] Creatinine [Mass/Vol] 0.44 mg/dL Low 0.7 - 1.2 mg/dL [place] GFR >60 >60 mL/min [place] GFR Non- >60 >60 mL/min [place] GFR/1.73 sq M predicted among non-blacks MDRD (S/P/Bld) [Vol rate/Area] NOT REPORTED [place] GFR/1.73 sq M predicted among non-blacks MDRD (S/P/Bld) [Vol rate/Area] [place] Comment on above: Average GFR for 30-3 9 years old: 107 mL/min/1.73sq m Chronic Kidney Disease: <60 mL/min/1.73sq m Kidney failure: <15 mL/min/1.73sq m eGFR calculated using average adult body mass. Additional eGFR calculator available at: http://www.[employer]/multiple_crcl_2012.htm Glucose [Mass/Vol] 164 mg/dL High 70 - 99 mg/dL [place], [place] Interpretation and review of laboratory results Abnormal [place] Potassium [Moles/Vol] 4.1 mmol/L 3.7 - 5.3 mmol/L [place] Sodium [Moles/Vol] 136 mmol/L 135 - 144 mmol/L [place] Urea nitrogen [Mass/Vol] 9 mg/dL 6 - 20 mg/dL [place] Basic Metabolic Profon 06-12 (cont.) Normal [facility] Comment on above: Result Comment: Aver age GFR for 30-39 years old: 107 mL/min/1.73sq m Chronic Kidney Disease: <60 mL/min/1.73sq m Kidney failure: <15 mL/min/1.73sq m eGFR calculated using average adult body mass. Additional eGFR calculator available at: http://www.[employer]/multiple_crcl_2012.htm Performed By: #### C BC, PT, CMPX, ALEJANDRO, LIP, MG, KAM, TRIG #### [facility] [address] [place] [address] Glass Checker: Sadi Gambino MD #### IOCAL #### [address] [address] Glass Checker: Sha Nicholson MD Anion gap [Moles/Vol] 11 mmol/L Normal 9-17 [facility] Comment on above: Performed By: #### C BC, PT, CMPX, ALEJANDRO, LIP, MG, KAM, TRIG #### [facility] [address] [place] [address] Glass Checker: Sadi Gambino MD #### IOCAL #### [address] [phone] Glass Checker: Sha Nicholson MD BUN/CRE Ratio 20 Normal 9-20 [facility] Comment on above: Performed By: #### C BC, PT, CMPX, ALEJANDRO, LIP, MG, KAM, TRIG #### [facility] [address] [place] [address] Glass Checker: Sadi Gambino MD #### IOCAL #### [address] [phone] Glass Checker: Sha Nicholson MD Calcium [Mass/Vol] 9.0 mg/dL Normal 8.6-10.4 [facility] Comment on above: Performed By: #### C BC, PT, CMPX, ALEJANDRO, LIP, MG, KAM, TRIG #### [facility] [address] [place] [address] Glass Checker: Sadi Gambino MD #### IOCAL #### [address] [address] Glass Checker: Sha Nicholson MD Chloride [Moles/Vol] 101 mmol/L Normal 98-107 [facility] Comment on above: Performed By: #### C BC, PT, CMPX, ALEJANDRO, LIP, MG, KAM, TRIG #### [facility] [address] [place] [address] Glass Checker: Sadi Gambino MD #### IOCAL #### [address] [address] Glass Checker: Sha Nicholson MD CO2 [Moles/Vol] 24 mmol/L Normal 20-31 [facility] Comment on above: Performed By: #### C BC, PT, CMPX, ALEJANDRO, LIP, MG, KAM, TRIG #### [facility] [address] [place] [address] Glass Checker: Sadi Gambino MD #### IOCAL #### [address] [address] Glass Checker: Sha Nicholson MD Creatinine [Mass/Vol] 0.44 mg/dL Low 0.70-1.20 [facility] Comment on above: Performed By: #### C BC, PT, CMPX, ALEJANDRO, LIP, MG, KAM, TRIG #### [facility] [address] [place] [address] [phone] Glass Checker: Sadi Gambino MD #### IOCAL #### [address] [address] Glass Checker: Sha Nicholson MD GFR, Amer >60 Normal >60 [facility] Comment on above: Performed By: #### C BC, PT, CMPX, ALEJANDRO, LIP, MG, KAM, TRIG #### [facility] [place] [address] Glass Checker: Sadi Gambino MD #### IOCAL #### [address] [id number] Glass Checker: Sha Nicholson MD GFR,non Amer >60 Normal >60 [facility] Comment on above: Performed By: #### C BC, PT, CMPX, ALEJANDRO, LIP, MG, KAM, TRIG #### [facility] [address] [place] [address] Glass Checker: Sadi Gambino MD #### IOCAL #### [address] [address] Glass Checker: Sha Nicholson MD Glucose [Mass/Vol] 164 mg/dL High 70-99 [facility] Comment on above: Performed By: #### C BC, PT, CMPX, ALEJANDRO, LIP, MG, KAM, TRIG #### [facility] [address] [place] [address] Glass Checker: Sadi Gambino MD #### IOCAL #### [address] [phone] Glass Checker: Sha Nicholson MD Potassium [Moles/Vol] 4.1 mmol/L Normal 3.7-5.3 [facility] Comment on above: Performed By: #### C BC, PT, CMPX, ALEJANDRO, LIP, MG, KAM, TRIG #### [facility] [address] [place] [address] Glass Checker: Sadi Gambino MD #### IOCAL #### [address] [address] Glass Checker: Sha Nicholson MD Sodium [Moles/Vol] 136 mmol/L Normal 135-144 [facility] Comment on above: Performed By: #### C BC, PT, CMPX, ALEJANDRO, LIP, MG, KAM, TRIG #### [facility] [address] [place] [address] Glass Checker: Sadi Gambino MD #### IOCAL #### [address] [address] Glass Checker: Sha Nicholson MD Urea nitrogen [Mass/Vol] 9 mg/dL Normal 6-20 [facility] Comment on above: Performed By: #### C BC, PT, CMPX, ALEJANDRO, LIP, MG, KAM, TRIG #### [facility] [address] [place] [address] Glass Checker: Sadi Gambino MD #### IOCAL #### [address] [address] Glass Checker: Sha Nicholson MD Staging: NOT REPORTED Normal [facility] Comment on above: Performed By: #### C BC, PT, CMPX, ALEJANDRO, LIP, MG, KAM, TRIG #### [facility] [address] [place] [address] Glass Checker: Sadi Gambino MD #### IOCAL #### [address] [address] Glass Checker: Sha Nicholson MD CBC Auto Differentialon 11-0 Basophils (Bld) [#/Vol] 10*3/uL M [place] Basophils/100 WBC (Bld) 0 % 0 - 2 % M [place] Differential Type NOT REPORTED [place] Eosinophils (Bld) [#/Vol] 10*3/uL [place] Eosinophils/100 WBC (Bld) 0 % Low 1 - 4 % [place] Erythrocyte distribution width (RBC) [Ratio] 11.9 % 11.8 - 14.4 % [place] Hematocrit (Bld) [Volume fraction] 36.8 % Low 40.7 - 50.3 % [place] Hemoglobin (Bld) [Mass/Vol] 13.2 g/dL 13 - 17 g/dL [place] Immature granulocytes (Bld) [#/Vol] 0 % 0 [place] Immature granulocytes (Bld) [#/Vol] 0.04 10*3/uL [place] Interpretation and review of laboratory results Abnormal [place] Lymphocytes (Bld) [#/Vol] 1.44 10*3/uL [place] Lymphocytes/100 WBC (Bld) 14 % Low 24 - 43 % [place] MCH (RBC) [Entitic mass] 30.2 pg 25.2 - 33.5 pg [place] MCHC (RBC) [Mass/Vol] 35.9 g/dL High 28.4 - 34.8 g/dL [place] MCV (RBC) [Entitic vol] 84.2 fL 82.6 - 102.9 fL [place] Monocytes (Bld) [#/Vol] 0.52 10*3/uL [place] Monocytes/100 WBC (Bld) 5 % 3 - 12 % M [place] Platelet mean volume (Bld) [Entitic vol] 10.9 fL 8.1 - 13.5 fL [place] Platelets (Bld) [#/Vol] NOT REPORTED [place] Platelets (Bld) [#/Vol] 256 10*3/uL [place] RBC (Bld) [#/Vol] 4.37 10*6/uL 4.21 - 5.7 7 m/uL [place] RBC morphology finding Nom (Bld) NOT REPORTED [place] Segmented neutrophils/100 WBC (Bld) 81 % High 36 - 65 % [place] Segs Absolute 8.50 High [place] WBC (Bld) [#/Vol] 10.5 10*3/uL [place] WBC (Bld) [#/Vol] 0.0 10*3/uL 0.0 per 10 0 WBC [place] WBC Morphology NOT REPORTED [place] CBC with Diffon 06-12-2019 Abs. Basophil <0.03 Normal 0.00-0.20 [facility] Comment on above: Performed By: #### C BC, PT, CMPX, ALEJANDRO, LIP, MG, KAM, TRIG #### [facility] [address] [place] [address] Glass Checker: Sadi Gambino MD #### IOCAL #### [place] [address] Glass Checker: Sha Nicholson MD Abs.Imm.Granulocyte 0.04 k/uL Normal 0.00-0.30 [facility] Comment on above: Performed By: #### C BC, PT, CMPX, ALEJANDRO, LIP, MG, KAM, TRIG #### [facility] [address] [place] [address] Glass Checker: Sadi Gambino MD #### IOCAL #### [place] [address] Glass Checker: Sha Nicholson MD Abs.Neutrophil (Seg) 8.50 k/uL High 1.50-8.10 [facility] Comment on above: Performed By: #### C BC, PT, CMPX, ALEJANDRO, LIP, MG, KAM, TRIG #### [facility] [address] [place] [address] Glass Checker: Sadi Gambino MD #### IOCAL #### [address] [address] Glass Checker: Sha Nicholson MD Basophils/100 WBC (Bld) 0 % Normal 0-2 M [facility] Comment on above: Performed By: #### C BC, PT, CMPX, ALEJANDRO, LIP, MG, KAM, TRIG #### [facility] [place] [address] Glass Checker: Sadi Gambino MD #### IOCAL #### [address] [address] Glass Checker: Sha Nicholson MD Eosinophils (Bld) [#/Vol] 10*3/uL Normal 0.00-0.44 [facility] Comment on above: Performed By: #### C BC, PT, CMPX, ALEJANDRO, LIP, MG, KAM, TRIG #### [facility] [address] [place] [id number] Glass Checker: Sadi Gambino MD #### IOCAL #### [address] [address] Glass Checker: Sha Nicholson MD Eosinophils/100 WBC (Bld) 0 % Low 1-4 [facility] Comment on above: Performed By: #### C BC, PT, CMPX, ALEJANDRO, LIP, MG, KAM, TRIG #### [facility] [address] [place] [phone] Glass Checker: Sadi Gambino MD #### IOCAL #### [address] [address] Glass Checker: Sha Nicholson MD Erythrocyte distribution width (RBC) [Ratio] 11.9 % Normal 11.8-14.4 [facility] Comment on above: Performed By: #### C BC, PT, CMPX, ALEJANDRO, LIP, MG, KAM, TRIG #### [facility] [address] [place] [phone] Glass Checker: Sadi Gambino MD #### IOCAL #### [address] [address] Glass Checker: Sha Nicholson MD Hematocrit (Bld) [Volume fraction] 36.8 % Low 40.7-50.3 [facility] Comment on above: Performed By: #### C BC, PT, CMPX, ALEJANDRO, LIP, MG, KAM, TRIG #### [facility] [address] [place] [phone] Glass Checker: Sadi Gambino MD #### IOCAL #### [address] [address] Glass Checker: Sha Nicholson MD Hemoglobin (Bld) [Mass/Vol] 13.2 g/dL Normal 13.0-17.0 [facility] Comment on above: Performed By: #### C BC, PT, CMPX, ALEJANDRO, LIP, MG, KAM, TRIG #### [facility] [address] [place] [address] Glass Checker: Sadi Gambino MD #### IOCAL #### [address] [address] Glass Checker: Sha Nicholson MD Immature granulocytes (Bld) [#/Vol] 0 % Normal 0 [facility] Comment on above: Performed By: #### C BC, PT, CMPX, ALEJANDRO, LIP, MG, KAM, TRIG #### [facility] [address] [place] [address] Glass Checker: Sadi Gambino MD #### IOCAL #### [address] [address] Glass Checker: Sha Nicholson MD Lymphocytes (Bld) [#/Vol] 1.44 10*3/uL Normal 1.10-3.70 [facility] Comment on above: Performed By: #### C BC, PT, CMPX, ALEJANDRO, LIP, MG, KAM, TRIG #### [facility] [address] [place] [address] Glass Checker: Sadi Gambino MD #### IOCAL #### [address] [phone] Glass Checker: Sha Nicholson MD Lymphocytes/100 WBC (Bld) 14 % Low 24-43 [facility] Comment on above: Performed By: #### C BC, PT, CMPX, ALEJANDRO, LIP, MG, KAM, TRIG #### [facility] [address] [place] [phone] Glass Checker: Sadi Gambino MD #### IOCAL #### [address] [address] Glass Checker: Sha Nicholson MD MCH (RBC) [Entitic mass] 30.2 pg Normal 25.2-33.5 [facility] Comment on above: Performed By: #### C BC, PT, CMPX, ALEJANDRO, LIP, MG, KAM, TRIG #### [facility] [address] [place] [address] Glass Checker: Sadi Gambino MD #### IOCAL #### [address] [address] Glass Checker: Sha Nicholson MD MCHC (RBC) [Mass/Vol] 35.9 g/dL High 28.4-34.8 [facility] Comment on above: Performed By: #### C BC, PT, CMPX, ALEJANDRO, LIP, MG, KAM, TRIG #### [facility] [address] [place] [address] Glass Checker: Sadi Gambino MD #### IOCAL #### [address] [phone] Glass Checker: Sha Nicholson MD MCV (RBC) [Entitic vol] 84.2 fL Normal 82.6-102.9 M [facility] Comment on above: Performed By: #### C BC, PT, CMPX, ALEJANDRO, LIP, MG, KAM, TRIG #### [facility] [address] [place] [address] Glass Checker: Sadi Gambino MD #### IOCAL #### [place] [address] Glass Checker: Sha Nicholson MD Monocytes (Bld) [#/Vol] 0.52 10*3/uL Normal 0.10-1.20 [facility] Comment on above: Performed By: #### C BC, PT, CMPX, ALEJANDRO, LIP, MG, KAM, TRIG #### [facility] [address] [place] [address] Glass Checker: Sadi Gambino MD #### IOCAL #### [address] [address] Glass Checker: Sha Nicholson MD Monocytes/100 WBC (Bld) 5 % Normal 3-12 M [facility] Comment on above: Performed By: #### C BC, PT, CMPX, ALEJANDRO, LIP, MG, KAM, TRIG #### [facility] [address] [place] [address] [phone] Glass Checker: Sadi Gambino MD #### IOCAL #### [address] [address] Glass Checker: Sha Nicholson MD Neutrophil (Seg) 81 % High 36-65 [facility] Comment on above: Performed By: #### C BC, PT, CMPX, ALEJANDRO, LIP, MG, KAM, TRIG #### [facility] [address] [place] [address] Glass Checker: Sadi Gambino MD #### IOCAL #### [address] [address] Glass Checker: Sha Nicholson MD NRBC Automated 0.0 per [address] [facility] Comment on above: Performed By: #### C BC, PT, CMPX, ALEJANDRO, LIP, MG, KAM, TRIG #### [facility] [address] [place] [address] Glass Checker: Sadi Gambino MD #### IOCAL #### [address] [address] Glass Checker: Sha Nicholson MD Platelet mean volume (Bld) [Entitic vol] 10.9 fL Normal 8.1-13.5 [facility] Comment on above: Performed By: #### C BC, PT, CMPX, ALEJANDRO, LIP, MG, KAM, TRIG #### [facility] [address] [place] [phone] Glass Checker: Sadi Gambino MD #### IOCAL #### [address] [address] Glass Checker: Sha Nicholson MD Platelets (Bld) [#/Vol] 256 10*3/uL Normal 138-453 [facility] Comment on above: Performed By: #### C BC, PT, CMPX, ALEJANDRO, LIP, MG, KAM, TRIG #### [facility] [address] [place] [address] Glass Checker: Sadi Gambino MD #### IOCAL #### [address] [address] Glass Checker: Sha Nicholson MD RBC (Bld) [#/Vol] 4.37 10*6/uL Normal 4.21-5.77 [facility] Comment on above: Performed By: #### C BC, PT, CMPX, ALEJANDRO, LIP, MG, KAM, TRIG #### [facility] [address] [place] [phone] Glass Checker: Sadi Gambino MD #### IOCAL #### [address] [address] Glass Checker: Sha Nicholson MD WBC (Bld) [#/Vol] 10.5 10*3/uL Normal 3.5-11.3 [facility] Comment on above: Performed By: #### C BC, PT, CMPX, ALEJANDRO, LIP, MG, KAM, TRIG #### [facility] [address] [place] [address] Glass Checker: Sadi Gambino MD #### IOCAL #### [address] [address] Glass Checker: Sha Nicholson MD Auto Diff Performed NOT REPORTED Normal [facility] Comment on above: Performed By: #### C BC, PT, CMPX, ALEJANDRO, LIP, MG, KAM, TRIG #### [facility] [address] [place] [address] Glass Checker: Sadi Gambino MD #### IOCAL #### [address] [address] Glass Checker: Sha Nicholson MD Platelets (Bld) [#/Vol] NOT REPORTED Normal [facility] Comment on above: Performed By: #### C BC, PT, CMPX, ALEJANDRO, LIP, MG, KAM, TRIG #### [facility] [address] [place] [address] Glass Checker: Sadi Gambino MD #### IOCAL #### [address] [address] Glass Checker: Sha Nicholson MD RBC morphology finding Nom (Bld) NOT REPORTED Normal [facility] Comment on above: Performed By: #### C BC, PT, CMPX, ALEJANDRO, LIP, MG, KAM, TRIG #### [facility] [address] [place] [address] Glass Checker: Sadi Gambino MD #### IOCAL #### [address] [address] Glass Checker: Sha Nicholson MD WBC Morphology NOT REPORTED Normal [facility] Comment on above: Performed By: #### C BC, PT, CMPX, ALEJANDRO, LIP, MG, KAM, TRIG #### [facility] [address] [place] [address] Glass Checker: Sadi Gambino MD #### IOCAL #### [address] [address] Glass Checker: Sha Nicholson MD Magnesiumon 06-12-2019 Magnesium [Mass/Vol] 1.9 mg/dL Normal 1.6-2.6 [facility] Comment on above: Performed By: #### C BC, PT, CMPX, ALEJANDRO, LIP, MG, KAM, TRIG #### [facility] [address] [place] [address]48 Glass Checker: Sadi Gambino MD #### IOCAL #### [facility] [address] [place] [address] [phone] Glass Checker: Sha Nicholson MD Magnesium [Mass/Vol] 1.9 mg/dL 1.6 - 2 .6 mg/dL [place] Surgical Pathologyon 019 Surgical Pathology (NOTE) [id number] [facility] CONSULTING PATHOLOGISTS [facility] [address] [place] [id number] SURGICAL PATHOLOGY CONSULTATION Patient Name: DEVON MATHEW [facility] Rec: [id number] Path Number: [id number] Collected: 06/12/2019 Received: 06/13/2019 Reported: 06/14/2019 09:23 [...] Microscopic Description Microscopic examination performed. Normal [facility] Comment on above: Performed By: #### C BC, PT, CMPX, ALEJANDRO, LIP, MG, KAM, TRIG #### [facility] [address] [place] [address] Glass Checker: Sadi Gambino MD #### IOCAL #### [facility] [address] [place] [address] [phone] Glass Checker: Sha Nicholson MD Amylaseon 06-11-2019 Amylase [Catalytic activity/Vol] 88 U/L Normal 28-100 [facility] Comment on above: Performed By: #### C BC, PT, CMPX, ALEJANDRO, LIP, MG, KAM, TRIG #### [facility] [address] [place], [place] [phone] Glass Checker: Sadi Gambino MD #### IOCAL #### [facility] [address] [place], [place] [phone] Glass Checker: Sha Nicholson MD Amylase [Catalytic activity/Vol] 88 U/L 28 - 100 U/L [place] Basic Metabolic Panelon Anion gap [Moles/Vol] 12 mmol/L 9 - 17 mmol/L [place] Bun/Cre Ratio 11 [place] Calcium [Mass/Vol] 8.8 mg/dL 8.6 - 10. 4 mg/dL [place] Chloride [Moles/Vol] 104 mmol/L 98 - 10 7 mmol/L [place] CO2 [Moles/Vol] 24 mmol/L 20 - 31 mmol/L [place] Creatinine [Mass/Vol] 0.46 mg/dL Low 0.7 - 1.2 mg/dL [place] GFR >60 >60 mL/min [place] GFR Non- >60 >60 mL/min [place] GFR/1.73 sq M predicted among non-blacks MDRD (S/P/Bld) [Vol rate/Area] NOT REPORTED [place] GFR/1.73 sq M predicted among non-blacks MDRD (S/P/Bld) [Vol rate/Area] [place] Comment on above: Average GFR for 30-3 9 years old: 107 mL/min/1.73sq m Chronic Kidney Disease: <60 mL/min/1.73sq m Kidney failure: <15 mL/min/1.73sq m eGFR calculated using average adult body mass. Additional eGFR calculator available at: http://www.KeepRecipes/multiple_crcl_2012.htm Glucose [Mass/Vol] 92 mg/dL 70 - 99 mg/dL [place], [place] Potassium [Moles/Vol] 3.8 mmol/L 3.7 - 5.3 mmol/L [place] Sodium [Moles/Vol] 140 mmol/L 135 - 144 mmol/L [place] Urea nitrogen [Mass/Vol] 5 mg/dL Low 6 - 20 mg/dL [place] Basic Metabolic Profon 06-11 (cont.) [facility] Comment on above: Result Comment: Aver age GFR for 30-39 years old: 107 mL/min/1.73sq m Chronic Kidney Disease: <60 mL/min/1.73sq m Kidney failure: <15 mL/min/1.73sq m eGFR calculated using average adult body mass. Additional eGFR calculator available at: http://www.KeepRecipes/multiple_crcl_2012.htm Performed By: #### C BC, PT, CMPX, ALEJANDRO, LIP, MG, KAM, TRIG #### [facility] [address] [place], [place] [phone] Glass Checker: Sadi Gambino MD #### IOCAL #### [facility] [address] [place], [place] [phone] Glass Checker: Sha Nicholson MD Anion gap [Moles/Vol] 12 mmol/L Normal 9-17 [facility] Comment on above: Performed By: #### C BC, PT, CMPX, ALEJANDRO, LIP, MG, KAM, TRIG #### [facility] [address] [place], [place] [phone] Glass Checker: Sadi Gambino MD #### IOCAL #### [facility] [address] [place], [place] [phone] Glass Checker: Sha Nicholson MD BUN/CRE Ratio 11 Normal 9-20 [facility] Comment on above: Performed By: #### C BC, PT, CMPX, ALEJANDRO, LIP, MG, KAM, TRIG #### [facility] [address] [place] [address] Glass Checker: Sadi Gambino MD #### IOCAL #### [address] [address] Glass Checker: Sha Nicholson MD Calcium [Mass/Vol] 8.8 mg/dL Normal 8.6-10.4 [facility] Comment on above: Performed By: #### C BC, PT, CMPX, ALEJANDRO, LIP, MG, KAM, TRIG #### [facility] [address] [place] [phone] Glass Checker: Sadi Gambino MD #### IOCAL #### [address] [address] Glass Checker: Sha Nicholson MD Chloride [Moles/Vol] 104 mmol/L Normal 98-107 [facility] Comment on above: Performed By: #### C BC, PT, CMPX, ALEJANDRO, LIP, MG, KAM, TRIG #### [facility] [address] [place] [phone] Glass Checker: Sadi Gambino MD #### IOCAL #### [address] [address] Glass Checker: Sha Nicholson MD CO2 [Moles/Vol] 24 mmol/L Normal 20-31 [facility] Comment on above: Performed By: #### C BC, PT, CMPX, ALEJANDRO, LIP, MG, KAM, TRIG #### [facility] [address] [place] [address] [phone] Glass Checker: Sadi Gambino MD #### IOCAL #### [address] [address] Glass Checker: Sha Nicholson MD Creatinine [Mass/Vol] 0.46 mg/dL Low 0.70-1.20 [facility] Comment on above: Performed By: #### C BC, PT, CMPX, ALEJANDRO, LIP, MG, KAM, TRIG #### [facility] [address] [place] [address]56 Glass Checker: Sadi Gambino MD #### IOCAL #### [address] [address] Glass Checker: Sha Nicholson MD GFR, Amer >60 Normal >60 [facility] Comment on above: Performed By: #### C BC, PT, CMPX, ALEJANDRO, LIP, MG, KAM, TRIG #### [facility] [address] [place] [address]84 Glass Checker: Sadi Gambino MD #### IOCAL #### [address] [address] Glass Checker: Sha Nicholson MD GFR,non Amer >60 Normal >60 [facility] Comment on above: Performed By: #### C BC, PT, CMPX, ALEJANDRO, LIP, MG, KAM, TRIG #### [facility] [address] [place] [address]13 Glass Checker: Sadi Gambino MD #### IOCAL #### [address] [address] Glass Checker: Sha Nicholson MD Glucose [Mass/Vol] 92 mg/dL Normal 70-99 [facility] Comment on above: Performed By: #### C BC, PT, CMPX, ALEJANDRO, LIP, MG, KAM, TRIG #### [facility] [address] [place] [address] Glass Checker: Sadi Gambino MD #### IOCAL #### [address] [address] Glass Checker: Sha Nicholson MD Potassium [Moles/Vol] 3.8 mmol/L Normal 3.7-5.3 [facility] Comment on above: Performed By: #### C BC, PT, CMPX, ALEJANDRO, LIP, MG, KAM, TRIG #### [facility] [address] [place] [phone] Glass Checker: Sadi Gambino MD #### IOCAL #### [address] [address] Glass Checker: Sha Nicholson MD Sodium [Moles/Vol] 140 mmol/L Normal 135-144 [facility] Comment on above: Performed By: #### C BC, PT, CMPX, ALEJANDRO, LIP, MG, KAM, TRIG #### [facility] [address] [place] [phone] Glass Checker: Sadi Gambino MD #### IOCAL #### [address] [address] Glass Checker: Sha Nicholson MD Urea nitrogen [Mass/Vol] 5 mg/dL Low 6-20 [facility] Comment on above: Performed By: #### C BC, PT, CMPX, ALEJANDRO, LIP, MG, KAM, TRIG #### [facility] [address] [place] [phone] Glass Checker: Sadi Gambino MD #### IOCAL #### [address] [address] Glass Checker: Sha Nicholson MD Staging: NOT REPORTED Normal [facility] Comment on above: Performed By: #### C BC, PT, CMPX, ALEJANDRO, LIP, MG, KAM, TRIG #### [facility] [address] [place] [address] Glass Checker: Sadi Gambino MD #### IOCAL #### [facility] [address] [place], [place] [phone] Glass Checker: Sha Nicholson MD CBC Auto Differentialon 11-0 Basophils (Bld) [#/Vol] 0.06 10*3/uL [place] Basophils/100 WBC (Bld) 1 % 0 - 2 % M [place] Differential Type NOT REPORTED [place] Eosinophils (Bld) [#/Vol] 0.42 10*3/uL [place] Eosinophils/100 WBC (Bld) 4 % 1 - 4 % [place] Erythrocyte distribution width (RBC) [Ratio] 12.1 % 11.8 - 14.4 % [place] Hematocrit (Bld) [Volume fraction] 36.3 % Low 40.7 - 50.3 % [place] Hemoglobin (Bld) [Mass/Vol] 12.8 g/dL Low 13 - 17 g/dL [place] Immature granulocytes (Bld) [#/Vol] 0 % 0 [place] Immature granulocytes (Bld) [#/Vol] 0.03 10*3/uL [place] Interpretation and review of laboratory results Abnormal [place] Lymphocytes (Bld) [#/Vol] 2.30 10*3/uL [place] Lymphocytes/100 WBC (Bld) 24 % 24 - 43 % [place] MCH (RBC) [Entitic mass] 30.5 pg 25.2 - 33.5 pg [place] MCHC (RBC) [Mass/Vol] 35.3 g/dL High 28.4 - 34.8 g/dL [place] MCV (RBC) [Entitic vol] 86.4 fL 82.6 - 102.9 fL [place] Monocytes (Bld) [#/Vol] 0.81 10*3/uL [place] Monocytes/100 WBC (Bld) 8 % 3 - 12 % M [place] Platelet mean volume (Bld) [Entitic vol] 10.6 fL 8.1 - 13.5 fL [place] Platelets (Bld) [#/Vol] NOT REPORTED [place] Platelets (Bld) [#/Vol] 215 10*3/uL [place] RBC (Bld) [#/Vol] 4.20 10*6/uL Low 4.21 - 5.7 7 m/uL [place] RBC morphology finding Nom (Bld) NOT REPORTED [place] Segmented neutrophils/100 WBC (Bld) 62 % 36 - 65 % [place] Segs Absolute 5.98 [place] WBC (Bld) [#/Vol] 0.0 10*3/uL 0.0 per 10 0 WBC [place] WBC (Bld) [#/Vol] 9.6 10*3/uL [place] WBC Morphology NOT REPORTED [place] CBC with Diffon 06-11-2019 Abs. Basophil 0.06 k/uL Normal 0.00-0.20 [facility] Comment on above: Performed By: #### C BC, PT, CMPX, ALEJANDRO, LIP, MG, KAM, TRIG #### [facility] [address] [place] [address] Glass Checker: Sadi Gambino MD #### IOCAL #### [facility] [address] [place], [place] [phone] Glass Checker: Sha Nicholson MD Abs.Imm.Granulocyte 0.03 k/uL Normal 0.00-0.30 [facility] Comment on above: Performed By: #### C BC, PT, CMPX, ALEJANDRO, LIP, MG, KAM, TRIG #### [facility] [address] [place] [address] Glass Checker: Sadi Gambino MD #### IOCAL #### [address] [address] Glass Checker: Sha Nicholson MD Abs.Neutrophil (Seg) 5.98 k/uL Normal 1.50-8.10 [facility] Comment on above: Performed By: #### C BC, PT, CMPX, ALEJANDRO, LIP, MG, KAM, TRIG #### [facility] [address] [place] [phone] Glass Checker: Sadi Gambino MD #### IOCAL #### [address] [address] Glass Checker: Sah Nicholson MD Basophils/100 WBC (Bld) 1 % Normal 0-2 [facility] Comment on above: Performed By: #### C BC, PT, CMPX, ALEJANDRO, LIP, MG, KAM, TRIG #### [facility] [address] [place] [address]689 Glass Checker: Sadi Gambino MD #### IOCAL #### [address] [address] Glass Checker: Sha Nicholson MD Eosinophils (Bld) [#/Vol] 0.42 10*3/uL Normal 0.00-0.44 [facility] Comment on above: Performed By: #### C BC, PT, CMPX, ALEJANDRO, LIP, MG, KAM, TRIG #### [facility] [address] [place] [phone] Glass Checker: Sadi Gambino MD #### IOCAL #### [address] [address] Glass Checker: Sha Nicholson MD Eosinophils/100 WBC (Bld) 4 % Normal 1-4 [facility] Comment on above: Performed By: #### C BC, PT, CMPX, ALEJANDRO, LIP, MG, KAM, TRIG #### [facility] [address] [place] [address] Glass Checker: Sadi Gambino MD #### IOCAL #### [address] [address] Glass Checker: Sha Nicholson MD Erythrocyte distribution width (RBC) [Ratio] 12.1 % Normal 11.8-14.4 [facility] Comment on above: Performed By: #### C BC, PT, CMPX, ALEJANDRO, LIP, MG, KAM, TRIG #### [facility] [address] [place] [phone] Glass Checker: Sadi Gambino MD #### IOCAL #### [address] [address] Glass Checker: Sha Nicholson MD Hematocrit (Bld) [Volume fraction] 36.3 % Low 40.7-50.3 [facility] Comment on above: Performed By: #### C BC, PT, CMPX, ALEJANDRO, LIP, MG, KAM, TRIG #### [facility] [address] [place] [phone] Glass Checker: Sadi Gambino MD #### IOCAL #### [address] [address] Glass Checker: Sha Nicholson MD Hemoglobin (Bld) [Mass/Vol] 12.8 g/dL Low 13.0-17.0 [facility] Comment on above: Performed By: #### C BC, PT, CMPX, ALEJANDRO, LIP, MG, KAM, TRIG #### [facility] [address] [place] [phone] Glass Checker: Sadi Gambino MD #### IOCAL #### [address] [address] Glass Checker: Sha Nicholson MD Immature granulocytes (Bld) [#/Vol] 0 % Normal 0 [facility] Comment on above: Performed By: #### C BC, PT, CMPX, ALEJANDRO, LIP, MG, KAM, TRIG #### [facility] [address] [place] [address] Glass Checker: Sadi Gambino MD #### IOCAL #### [address] [address] Glass Checker: Sha Nicholson MD Lymphocytes (Bld) [#/Vol] 2.30 10*3/uL Normal 1.10-3.70 [facility] Comment on above: Performed By: #### C BC, PT, CMPX, ALEJANDRO, LIP, MG, KAM, TRIG #### [facility] [address] [place] [address] Glass Checker: Sadi Gambino MD #### IOCAL #### [address] [address] Glass Checker: Sha Nicholson MD Lymphocytes/100 WBC (Bld) 24 % Normal 24-43 [facility] Comment on above: Performed By: #### C BC, PT, CMPX, ALEJANDRO, LIP, MG, KAM, TRIG #### [facility] [address] [place] [address] Glass Checker: Sadi Gambino MD #### IOCAL #### [address] [address] Glass Checker: Sha Nicholson MD MCH (RBC) [Entitic mass] 30.5 pg Normal 25.2-33.5 [facility] Comment on above: Performed By: #### C BC, PT, CMPX, ALEJANDRO, LIP, MG, KAM, TRIG #### [facility] [address] [place] [phone] Glass Checker: Sadi Gambino MD #### IOCAL #### [address] [address] Glass Checker: Sha Nicholson MD MCHC (RBC) [Mass/Vol] 35.3 g/dL High 28.4-34.8 [facility] Comment on above: Performed By: #### C BC, PT, CMPX, ALEJANDRO, LIP, MG, KAM, TRIG #### [facility] [address] [place] [address] Glass Checker: Sadi Gambino MD #### IOCAL #### [place] [address] Glass Checker: Sha Nicholson MD MCV (RBC) [Entitic vol] 86.4 fL Normal 82.6-102.9 M [facility] Comment on above: Performed By: #### C BC, PT, CMPX, ALEJANDRO, LIP, MG, KAM, TRIG #### [facility] [address] [place] [phone] Glass Checker: Sadi Gambino MD #### IOCAL #### [place] [address] Glass Checker: Sha Nicholson MD Monocytes (Bld) [#/Vol] 0.81 10*3/uL Normal 0.10-1.20 [facility] Comment on above: Performed By: #### C BC, PT, CMPX, ALEJANDRO, LIP, MG, KAM, TRIG #### [facility] [address] [place] [address] Glass Checker: Sadi Gambino MD #### IOCAL #### [address] [address] Glass Checker: Sha Nicholson MD Monocytes/100 WBC (Bld) 8 % Normal 3-12 M [facility] Comment on above: Performed By: #### C BC, PT, CMPX, ALEJANDRO, LIP, MG, KAM, TRIG #### [facility] [address] [place] [phone] Glass Checker: Sadi Gambino MD #### IOCAL #### [address] [address] Glass Checker: Sha Nicholson MD Neutrophil (Seg) 62 % Normal 36-65 [facility] Comment on above: Performed By: #### C BC, PT, CMPX, ALEJANDRO, LIP, MG, KAM, TRIG #### [facility] [address] [place] [phone] Glass Checker: Said Gambino MD #### IOCAL #### [address] [address] Glass Checker: Sha Nicholson MD NRBC Automated 0.0 per [address] [facility] Comment on above: Performed By: #### C BC, PT, CMPX, ALEJANDRO, LIP, MG, KAM, TRIG #### [facility] [address] [place] [address] [phone] Glass Checker: Sadi Gambino MD #### IOCAL #### [address] [address] Glass Checker: Sha Nicholson MD Platelet mean volume (Bld) [Entitic vol] 10.6 fL Normal 8.1-13.5 [facility] Comment on above: Performed By: #### C BC, PT, CMPX, ALEJANDRO, LIP, MG, KAM, TRIG #### [facility] [address] [place] [address] Glass Checker: Sadi Gambino MD #### IOCAL #### [address] [address] Glass Checker: Sha Nicholson MD Platelets (Bld) [#/Vol] 215 10*3/uL Normal 138-453 [facility] Comment on above: Performed By: #### C BC, PT, CMPX, ALEJANDRO, LIP, MG, KAM, TRIG #### [facility] [address] [place] [phone] Glass Checker: Sadi Gambino MD #### IOCAL #### [address] [address] Glass Checker: Sha Nicholson MD RBC (Bld) [#/Vol] 4.20 10*6/uL Low 4.21-5.77 [facility] Comment on above: Performed By: #### C BC, PT, CMPX, ALEJANDRO, LIP, MG, KAM, TRIG #### [facility] [address] [place] [id number] Glass Checker: Sadi Gambino MD #### IOCAL #### [address] [address] Glass Checker: Sha Nicholson MD WBC (Bld) [#/Vol] 9.6 10*3/uL Normal 3.5-11.3 [facility] Comment on above: Performed By: #### C BC, PT, CMPX, ALEJANDRO, LIP, MG, KAM, TRIG #### [facility] [address] [place] [id number] Glass Checker: Sadi Gambino MD #### IOCAL #### [address] [address] Glass Checker: Sha Nicholson MD Auto Diff Performed NOT REPORTED Normal [place] [facility] Comment on above: Performed By: #### C BC, PT, CMPX, ALEJANDRO, LIP, MG, KAM, TRIG #### [facility] [address] [place] [address] Glass Checker: Sadi Gambino MD #### IOCAL #### [address] [address] Glass Checker: Sha Nicholson MD Platelets (Bld) [#/Vol] NOT REPORTED Normal [facility] Comment on above: Performed By: #### C BC, PT, CMPX, ALEJANDRO, LIP, MG, KAM, TRIG #### [facility] [address] [place] [address] Glass Checker: Sadi Gambino MD #### IOCAL #### [address] [address] Glass Checker: Sha Nicholson MD RBC morphology finding Nom (Bld) NOT REPORTED Normal [facility] Comment on above: Performed By: #### C BC, PT, CMPX, ALEJANDRO, LIP, MG, KAM, TRIG #### [facility] [address] [place] [address] Glass Checker: Sadi Gambino MD #### IOCAL #### [address] [address] Glass Checker: Sha Nicholson MD WBC Morphology NOT REPORTED Normal [facility] Comment on above: Performed By: #### C BC, PT, CMPX, ALEJANDRO, LIP, MG, KAM, TRIG #### [facility] [address] [place] [address] Glass Checker: Sadi Gambino MD #### IOCAL #### [address] [address] Glass Checker: Sha Nicholson MD [place] ERCP BILIARY AND PANCREAT IC S AND Ion 06-11-2019 [place] ERCP BILIARY AND PANCREATIC S AND I EXAMINATION: 10 SPOT IMAGES FROM AN ERCP COMPARISON: CT 06/06/2019 FLUOROSCOPY DOSE OR TIME/IMAGES: 8.2 seconds; D AP 1096.7 mGy cm2 HISTORY: ORDERING SYSTEM PROVIDED HISTORY: ERCP TECHNOLOGIST PROVIDED HISTORY: ERCP Acuity: Acute Type of Exam: Unknown FINDINGS: Endoscopy and cannulation of the major papilla was performed by the gastroenterology service under the supervision of RACHAEL PRAJAPATI. Spot views are presented for interpretation. [...] Stan Samson MD 06/11/19 Final result Normal [facility] ERCP BILIARY AND PANCREAT IC S&Ion 06-11-2019 Jasen, Feliz Incoming Radiant Results From [facility] - 06/11/2019 5:18 PM EST EXAMINATION: 10 SPOT IMAGES FROM AN ERCP COMPARISON: CT 06/06/2019 FLUOROSCOPY DOSE OR TIME/IMAGES: 8.2 seconds; D AP 1096.7 mGy cm2 HISTORY: ORDERING SYSTEM PROVIDED HISTORY: ERCP TECHNOLOGIST PROVIDED HISTORY: ERCP Acuity: Acute Type of Exam: Unknown FINDINGS: Endoscopy and cannulation of the major papilla was performed by the gastroenterology service under the supervision of RACHAEL PRAJAPATI. Spot views are presented for interpretation. [...] additional details. IMPRESSION: Intraoperative fluoroscopy for ERCP [place], [place] EXAMINATION: 10 SPOT IMAGES FROM AN ERCP COMPARISON: CT 06/06/2019 FLUOROSCOPY DOSE OR TIME/IMAGES: 8.2 seconds; D AP 1096.7 mGy cm2 HISTORY: ORDERING SYSTEM PROVIDED HISTORY: ERCP TECHNOLOGIST PROVIDED HISTORY: ERCP Acuity: Acute Type of Exam: Unknown FINDINGS: Endoscopy and cannulation of the major papilla was performed by the gastroenterology service under the supervision of RACHAEL PRAJAPATI. Spot views are presented for interpretation. [...] correlate with procedure report for additional details. [place] Intraoperative fluoroscopy for [place]CP [place] FLUORO FOR SURGICAL PROCEDUR ESon 06-11-2019 FLUORO FOR SURGICAL PROCEDURES Radiology exam is complete. No Radiologist dictation. Please follow up with ordering provider. Final result Normal [facility] Radiology exam is complete. No Radiologist dictation. Please follow up with ordering provider. [place] Lipaseon 06-11-2019 Lipase [Catalytic activity/Vol] 108 U/L High 13-60 [facility] Comment on above: Performed By: #### C BC, PT, CMPX, ALEJANDRO, LIP, MG, KAM, TRIG #### [facility] [address] [place], [place] [phone] Glass Checker: Sadi Gambino MD #### IOCAL #### [facility] [address] [place], [place] [phone] Glass Checker: Sha Nicholson MD Lipase [Catalytic activity/Vol] 108 U/L High 13 - 60 U/L [place] Lipid Panelon 06-11-2019 Cholesterol [Mass/Vol] 125 mg/dL <200 [place], [place] Comment on above: Cholesterol Guidelines: <200 Desirable 200-240 Borderline >240 Undesirable Cholesterol in HDL [Mass/Vol] 20 mg/dL Low >40 [place] Comment on above: HDL Guidelines: <40 Undesirable 40-59 Borderline >59 Desirable Cholesterol in LDL [Mass/Vol] 82 mg/dL 0 - 130 mg/dL [place] Comment on above: LDL Guidelines: <100 Desirable 100-129 Near to/above Desirable 130-159 Borderline >159 Undesirable Direct (measured) LDL and calculated LDL are not interchangeable tests. Cholesterol in VLDL [Mass/Vol] NOT REPORTED 1 - 30 mg/dL [place] Cholesterol.total/Bailey sterol in HDL [Mass ratio] 6.3 {ratio} High <5 [place] Triglyceride [Mass/Vol] 117 mg/dL <150 M [place], [place] Comment on above: Triglyceride Guidelines: <150 Desirable 150-199 Borderline 200-499 High >499 Very high Based on AHA Guidelines for fasting triglyceride, May 2012. Lipid Profileon 06-11-2019 Cholesterol [Mass/Vol] 125 mg/dL Normal <200 [facility] Comment on above: Result Comment: Cholesterol Guidelines: <200 Desirable 200-240 Borderline >240 Undesirable Performed By: #### C BC, PT, CMPX, ALEJANDRO, LIP, MG, KAM, TRIG #### [facility] [address] [place] [address] Glass Checker: Sadi Gambino MD #### IOCAL #### [address] [id number] Glass Checker: Sha Nicholson MD Cholesterol in HDL [Mass/Vol] 20 mg/dL Low >40 [facility] Comment on above: Result Comment: HDL Guidelines: <40 Undesirable 40-59 Borderline >59 Desirable Performed By: #### C BC, PT, CMPX, ALEJANDRO, LIP, MG, KAM, TRIG #### [facility] [address] [place] [address] Glass Checker: Sadi Gambino MD #### IOCAL #### [address] [phone] Glass Checker: Sha Nicholson MD Cholesterol in LDL [Mass/Vol] 82 mg/dL Normal 0-130 [facility] Comment on above: Result Comment: LDL Guidelines: <100 Desirable 100-129 Near to/above Desirable 130-159 Borderline >159 Undesirable Direct (measured) LDL and calculated LDL are not interchangeable tests. Performed By: #### C BC, PT, CMPX, ALEJANDRO, LIP, MG, KAM, TRIG #### [facility] [place] [address] Glass Checker: Sadi Gambino MD #### IOCAL #### [address] [phone] Glass Checker: Sha Nicholson MD Cholesterol.total/Bailey sterol in HDL [Mass ratio] 6.3 {ratio} High <5 [facility] Comment on above: Performed By: #### C BC, PT, CMPX, ALEJANDRO, LIP, MG, KAM, TRIG #### [facility] [address] [place] [address] Glass Checker: Sadi Gambino MD #### IOCAL #### [address] [address] Glass Checker: Sha Nicholson MD Triglyceride [Mass/Vol] 117 mg/dL Normal <150 M [facility] Comment on above: Result Comment: Triglyceride Guidelines: <150 Desirable 150-199 Borderline 200-499 High >499 Very high Based on AHA Guidelines for fasting triglyceride, May 2012. Performed By: #### C BC, PT, CMPX, ALEJANDRO, LIP, MG, KAM, TRIG #### [facility] [place] [address] Glass Checker: Sadi Gambino MD #### IOCAL #### [address] [address] Glass Checker: Sha Nicholson MD Cholesterol in VLDL [Mass/Vol] NOT REPORTED Normal 1-30 [facility] Comment on above: Performed By: #### C BC, PT, CMPX, ALEJANDRO, LIP, MG, KAM, TRIG #### [facility] [address] [place] [address] Glass Checker: Sadi Gambino MD #### IOCAL #### [address] [address] Glass Checker: Sha Nicholson MD Magnesiumon 06-11-2019 Magnesium [Mass/Vol] 1.9 mg/dL Normal 1.6-2.6 [facility] Comment on above: Performed By: #### C BC, PT, CMPX, ALEJANDRO, LIP, MG, KAM, TRIG #### [facility] [address] [place] [address] Glass Checker: Sadi Gambino MD #### IOCAL #### [address] [address] Glass Checker: Sha Nicholson MD Magnesium [Mass/Vol] 1.9 mg/dL 1.6 - 2 .6 mg/dL [place] Otheron 06-11-2019 Interpretation and review of laboratory results Abnormal [place] Amylaseon 06-10-2019 Amylase [Catalytic activity/Vol] 188 U/L High 28-100 [facility] Comment on above: Performed By: #### C BC, PT, CMPX, ALEJANDRO, LIP, MG, KAM, TRIG #### [facility] [address] [place] [address] Glass Checker: Sadi Gambino MD #### IOCAL #### [address] [address] Glass Checker: Sha Nicholson MD Amylase [Catalytic activity/Vol] 188 U/L High 28 - 100 U/L [place] CBC Auto Differentialon Basophils (Bld) [#/Vol] 0.06 10*3/uL [place] Basophils/100 WBC (Bld) 1 % 0 - 2 % M [place] Differential Type NOT REPORTED [place] Eosinophils (Bld) [#/Vol] 0.29 10*3/uL [place] Eosinophils/100 WBC (Bld) 3 % 1 - 4 % [place] Erythrocyte distribution width (RBC) [Ratio] 12.1 % 11.8 - 14.4 % [place] Hematocrit (Bld) [Volume fraction] 37.1 % Low 40.7 - 50.3 % [place] Hemoglobin (Bld) [Mass/Vol] 13.0 g/dL 13 - 17 g/dL [place] Immature granulocytes (Bld) [#/Vol] 0.03 10*3/uL [place] Immature granulocytes (Bld) [#/Vol] 0 % 0 [place] Interpretation and review of laboratory results Abnormal [place] Lymphocytes (Bld) [#/Vol] 2.29 10*3/uL [place] Lymphocytes/100 WBC (Bld) 25 % 24 - 43 % [place] MCH (RBC) [Entitic mass] 30.8 pg 25.2 - 33.5 pg [place] MCHC (RBC) [Mass/Vol] 35.0 g/dL High 28.4 - 34.8 g/dL [place] MCV (RBC) [Entitic vol] 87.9 fL 82.6 - 102.9 fL [place] Monocytes (Bld) [#/Vol] 0.76 10*3/uL [place] Monocytes/100 WBC (Bld) 8 % 3 - 12 % [place] Platelet mean volume (Bld) [Entitic vol] 10.8 fL 8.1 - 13.5 fL [place] Platelets (Bld) [#/Vol] NOT REPORTED [place] Platelets (Bld) [#/Vol] 208 10*3/uL [place] RBC (Bld) [#/Vol] 4.22 10*6/uL 4.21 - 5.7 7 m/uL [place] RBC morphology finding Nom (Bld) NOT REPORTED [place] Segmented neutrophils/100 WBC (Bld) 62 % 36 - 65 % [place] Segs Absolute 5.62 [place] WBC (Bld) [#/Vol] 0.0 10*3/uL 0.0 per 10 0 WBC [place] WBC (Bld) [#/Vol] 9.1 10*3/uL [place] WBC Morphology NOT REPORTED [place] CBC with Diffon 06-10-2019 Abs. Basophil 0.06 k/uL Normal 0.00-0.20 [facility] Comment on above: Performed By: #### C BC, PT, CMPX, ALEJANDRO, LIP, MG, KAM, TRIG #### [facility] [address] [place] [address] Glass Checker: Sadi Gambino MD #### IOCAL #### [place] [address] Glass Checker: Sha Nicholson MD Abs.Imm.Granulocyte 0.03 k/uL Normal 0.00-0.30 [facility] Comment on above: Performed By: #### C BC, PT, CMPX, ALEJANDRO, LIP, MG, KAM, TRIG #### [facility] [address] [place] [address] Glass Checker: Sadi Gambino MD #### IOCAL #### [place] [address] Glass Checker: Sha Nicholson MD Abs.Neutrophil (Seg) 5.62 k/uL Normal 1.50-8.10 [facility] Comment on above: Performed By: #### C BC, PT, CMPX, ALEJANDRO, LIP, MG, KAM, TRIG #### [facility] [place] [address] Glass Checker: Sadi Gambino MD #### IOCAL #### [address] [address] Glass Checker: Sha Nicholson MD Basophils/100 WBC (Bld) 1 % Normal 0-2 M [facility] Comment on above: Performed By: #### C BC, PT, CMPX, ALEJANDRO, LIP, MG, KAM, TRIG #### [facility] [address] [place] [address] Glass Checker: Sadi Gambino MD #### IOCAL #### [address] [address] Glass Checker: Sha Nicholson MD Eosinophils (Bld) [#/Vol] 0.29 10*3/uL Normal 0.00-0.44 [facility] Comment on above: Performed By: #### C BC, PT, CMPX, ALEJANDRO, LIP, MG, KAM, TRIG #### [facility] [address] [place] [address] Glass Checker: Sadi Gambino MD #### IOCAL #### [address] [address] Glass Checker: Sha Nicholson MD Eosinophils/100 WBC (Bld) 3 % Normal 1-4 [facility] Comment on above: Performed By: #### C BC, PT, CMPX, ALEJANDRO, LIP, MG, KAM, TRIG #### [facility] [address] [place] [address] Glass Checker: Sadi Gambino MD #### IOCAL #### [address] [address] Glass Checker: Sha Nicholson MD Immature granulocytes (Bld) [#/Vol] 0 % Normal 0 [facility] Comment on above: Performed By: #### C BC, PT, CMPX, ALEJANDRO, LIP, MG, KAM, TRIG #### [facility] [address] [place] [address] Glass Checker: Sadi Gambino MD #### IOCAL #### [address] [address] Glass Checker: Sha Nicholson MD Lymphocytes (Bld) [#/Vol] 2.29 10*3/uL Normal 1.10-3.70 [facility] Comment on above: Performed By: #### C BC, PT, CMPX, ALEJANDRO, LIP, MG, KAM, TRIG #### [facility] [address] [place] [address] Glass Checker: Sadi Gambino MD #### IOCAL #### [place] [address] Glass Checker: Sha Nicholson MD Lymphocytes/100 WBC (Bld) 25 % Normal 24-43 [facility] Comment on above: Performed By: #### C BC, PT, CMPX, ALEJANDRO, LIP, MG, KAM, TRIG #### [facility] [address] [place] [address] Glass Checker: Sadi Gambino MD #### IOCAL #### [address] [address] Glass Checker: Sha Nicholson MD Monocytes (Bld) [#/Vol] 0.76 10*3/uL Normal 0.10-1.20 [facility] Comment on above: Performed By: #### C BC, PT, CMPX, ALEJANDRO, LIP, MG, KAM, TRIG #### [facility] [address] [place] [address] Glass Checker: Sadi Gambino MD #### IOCAL #### [address] [address] Glass Checker: Sha Nicholson MD Monocytes/100 WBC (Bld) 8 % Normal 3-12 M [facility] Comment on above: Performed By: #### C BC, PT, CMPX, ALEJANDRO, LIP, MG, KAM, TRIG #### [facility] [address] [place] [address] Glass Checker: Sadi Gambino MD #### IOCAL #### [address] [address] Glass Checker: Sha Nicholson MD Neutrophil (Seg) 62 % Normal 36-65 [facility] Comment on above: Performed By: #### C BC, PT, CMPX, ALEJANDRO, LIP, MG, KAM, TRIG #### [facility] [address] [place] [address] Glass Checker: Sadi Gambino MD #### IOCAL #### [address] [address] Glass Checker: Sha Nicholson MD Erythrocyte distribution width (RBC) [Ratio] 12.1 % Normal 11.8-14.4 [facility] Comment on above: Performed By: #### C BC, PT, CMPX, ALEJANDRO, LIP, MG, KAM, TRIG #### [facility] [place] [address] Glass Checker: Sadi Gambino MD #### IOCAL #### [address] [address] Glass Checker: Sha Nicholson MD Hematocrit (Bld) [Volume fraction] 37.1 % Low 40.7-50.3 [facility] Comment on above: Performed By: #### C BC, PT, CMPX, ALEJANDRO, LIP, MG, KAM, TRIG #### [facility] [address] [place] [address] Glass Checker: Sadi Gambino MD #### IOCAL #### [address] [address] Glass Checker: Sha Nicholson MD Hemoglobin (Bld) [Mass/Vol] 13.0 g/dL Normal 13.0-17.0 [facility] Comment on above: Performed By: #### C BC, PT, CMPX, ALEJANDRO, LIP, MG, KAM, TRIG #### [facility] [address] [place] [address] Glass Checker: Sadi Gambino MD #### IOCAL #### [address] [address] Glass Checker: Sha Nicholson MD MCH (RBC) [Entitic mass] 30.8 pg Normal 25.2-33.5 [facility] Comment on above: Performed By: #### C BC, PT, CMPX, ALEJANDRO, LIP, MG, KAM, TRIG #### [facility] [address] [place] [address] Glass Checker: Sadi Gambino MD #### IOCAL #### [address] [address] Glass Checker: Sha Nicholson MD MCHC (RBC) [Mass/Vol] 35.0 g/dL High 28.4-34.8 [facility] Comment on above: Performed By: #### C BC, PT, CMPX, ALEJANDRO, LIP, MG, KAM, TRIG #### [facility] [address] [place] [address] Glass Checker: Sadi Gambino MD #### IOCAL #### [address] [address] Glass Checker: Sha Nicholson MD MCV (RBC) [Entitic vol] 87.9 fL Normal 82.6-102.9 M [facility] Comment on above: Performed By: #### C BC, PT, CMPX, ALEJANDRO, LIP, MG, KAM, TRIG #### [facility] [place] [address] Glass Checker: Sadi Gambino MD #### IOCAL #### [address] [address] Glass Checker: Sha Nicholson MD NRBC Automated 0.0 per [address] [facility] Comment on above: Performed By: #### C BC, PT, CMPX, ALEJANDRO, LIP, MG, KAM, TRIG #### [facility] [address] [place] [address] Glass Checker: Sadi Gambino MD #### IOCAL #### [place] [address] Glass Checker: Sha Nicholson MD Platelet mean volume (Bld) [Entitic vol] 10.8 fL Normal 8.1-13.5 [facility] Comment on above: Performed By: #### C BC, PT, CMPX, ALEJANDRO, LIP, MG, KAM, TRIG #### [facility] [address] [place] [address] Glass Checker: Sadi Gambino MD #### IOCAL #### [address] [address] Glass Checker: Sha Nicholson MD Platelets (Bld) [#/Vol] 208 10*3/uL Normal 138-453 [facility] Comment on above: Performed By: #### C BC, PT, CMPX, ALEJANDRO, LIP, MG, KAM, TRIG #### [facility] [address] [place] [address] Glass Checker: Sadi Gambino MD #### IOCAL #### [address] [address] Glass Checker: Sha Nicholson MD RBC (Bld) [#/Vol] 4.22 10*6/uL Normal 4.21-5.77 [facility] Comment on above: Performed By: #### C BC, PT, CMPX, ALEJANDRO, LIP, MG, KAM, TRIG #### [facility] [address] [place] [address] Glass Checker: Sadi Gambino MD #### IOCAL #### [address] [address] Glass Checker: Sha Nicholson MD WBC (Bld) [#/Vol] 9.1 10*3/uL Normal 3.5-11.3 [facility] Comment on above: Performed By: #### C BC, PT, CMPX, ALEJANDRO, LIP, MG, KAM, TRIG #### [facility] [address] [place] [address] Glass Checker: Sadi Gambino MD #### IOCAL #### [address] [address] Glass Checker: Sha Nicholson MD Auto Diff Performed NOT REPORTED Normal [facility] Comment on above: Performed By: #### C BC, PT, CMPX, ALEJANDRO, LIP, MG, KAM, TRIG #### [facility] [address] [place] [address] Glass Checker: Sadi Gambino MD #### IOCAL #### [address] [address] Glass Checker: Sha Nicholson MD Platelets (Bld) [#/Vol] NOT REPORTED Normal [facility] Comment on above: Performed By: #### C BC, PT, CMPX, ALEJANDRO, LIP, MG, KAM, TRIG #### [facility] [address] [place] [address] Glass Checker: Sadi Gambino MD #### IOCAL #### [address] [address] Glass Checker: Sha Nicholson MD RBC morphology finding Nom (Bld) NOT REPORTED Normal [facility] Comment on above: Performed By: #### C BC, PT, CMPX, ALEJANDRO, LIP, MG, KAM, TRIG #### [facility] [address] [place] [address] Glass Checker: Sadi Gambino MD #### IOCAL #### [address] [address] Glass Checker: Sha Nicholson MD WBC Morphology NOT REPORTED Normal [facility] Comment on above: Performed By: #### C BC, PT, CMPX, ALEJANDRO, LIP, MG, KAM, TRIG #### [facility] [address] [place] [address] Glass Checker: Sadi Gambino MD #### IOCAL #### [address] [address] Glass Checker: Sha Nicholson MD Comp Metab w/Bili Pron 06-10 (cont.) Normal [facility] Comment on above: Result Comment: Aver age GFR for 30-39 years old: 107 mL/min/1.73sq m Chronic Kidney Disease: <60 mL/min/1.73sq m Kidney failure: <15 mL/min/1.73sq m eGFR calculated using average adult body mass. Additional eGFR calculator available at: http://www.IS Decisions.com/multiple_crcl_2012.htm Performed By: #### C BC, PT, CMPX, ALEJANDRO, LIP, MG, KAM, TRIG #### [facility] [address] [place] [address] Glass Checker: Sadi Gambino MD #### IOCAL #### [address] [address] Glass Checker: Sha Nicholson MD Albumin [Mass/Vol] 3.5 g/dL Normal 3.5-5.2 [facility] Comment on above: Performed By: #### C BC, PT, CMPX, ALEJANDRO, LIP, MG, KAM, TRIG #### [facility] [address] [place] [address] Glass Checker: Sadi Gambino MD #### IOCAL #### [address] [address] Glass Checker: Sha Nicholson MD Alkaline Phos 89 U/L Normal 40-129 [facility] Comment on above: Performed By: #### C BC, PT, CMPX, ALEJANDRO, LIP, MG, KAM, TRIG #### [facility] [address] [place] [address] Glass Checker: Sadi Gambino MD #### IOCAL #### [address] [address] Glass Checker: Sha Nicholson MD ALT [Catalytic activity/Vol] 100 U/L High 5-41 [facility] Comment on above: Performed By: #### C BC, PT, CMPX, ALEJANDRO, LIP, MG, KAM, TRIG #### [facility] [address] [place] [address] Glass Checker: Sadi Gambino MD #### IOCAL #### [address] [address] Glass Checker: Sha Nicholson MD Anion gap [Moles/Vol] 12 mmol/L Normal 9-17 [facility] Comment on above: Performed By: #### C BC, PT, CMPX, ALEJANDRO, LIP, MG, KAM, TRIG #### [facility] [address] [place] [phone] Glass Checker: Sadi Gambino MD #### IOCAL #### [address] [address] Glass Checker: Sha Nicholson MD AST [Catalytic activity/Vol] 30 U/L Normal <40 [facility] Comment on above: Performed By: #### C BC, PT, CMPX, ALEJANDRO, LIP, MG, KAM, TRIG #### [facility] [address] [place] [address] Glass Checker: Sadi Gambino MD #### IOCAL #### [address] [address] Glass Checker: Sha Nicholson MD Bilirubin Ql (U) 0.87 mg/dL Normal 0.3-1.2 [facility] Comment on above: Performed By: #### C BC, PT, CMPX, ALEJANDRO, LIP, MG, KAM, TRIG #### [facility] [address] [place] [address] Glass Checker: Sadi Gambino MD #### IOCAL #### [address] [address] Glass Checker: Sha Nicholson MD Bilirubin, Indirect 0.55 mg/dL Normal 0.00-1.00 [facility] Comment on above: Performed By: #### C BC, PT, CMPX, ALEJANDRO, LIP, MG, KAM, TRIG #### [facility] [address] [place] [address] Glass Checker: Sadi Gambino MD #### IOCAL #### [address] [address] Glass Checker: Sha Nicholson MD Bilirubin.direct [Mass/Vol] 0.32 mg/dL High <0.31 [facility] Comment on above: Performed By: #### C BC, PT, CMPX, ALEJANDRO, LIP, MG, KAM, TRIG #### [facility] [address] [place] [address] Glass Checker: Sadi Gambino MD #### IOCAL #### [address] [address] Glass Checker: Sha Nicholson MD Calcium [Mass/Vol] 8.5 mg/dL Low 8.6-10.4 [facility] Comment on above: Performed By: #### C BC, PT, CMPX, ALEJANDRO, LIP, MG, KAM, TRIG #### [facility] [address] [place] [address] Glass Checker: Sadi Gambino MD #### IOCAL #### [address] [address] Glass Checker: Sha Nicholson MD Chloride [Moles/Vol] 104 mmol/L Normal 98-107 [facility] Comment on above: Performed By: #### C BC, PT, CMPX, ALEJANDRO, LIP, MG, KAM, TRIG #### [facility] [address] [place] [phone] Glass Checker: Sadi Gambino MD #### IOCAL #### [address] [address] Glass Checker: Sha Nicholson MD CO2 [Moles/Vol] 24 mmol/L Normal 20-31 [facility] Comment on above: Performed By: #### C BC, PT, CMPX, ALEJANDRO, LIP, MG, KAM, TRIG #### [facility] [address] [place] [address] Glass Checker: Sadi Gambino MD #### IOCAL #### [address] [address] Glass Checker: Sha Nicholson MD Creatinine [Mass/Vol] 0.46 mg/dL Low 0.70-1.20 [facility] Comment on above: Performed By: #### C BC, PT, CMPX, ALEJANDRO, LIP, MG, KAM, TRIG #### [facility] [address] [place] [address] Glass Checker: Sadi Gambino MD #### IOCAL #### [address] [address] Glass Checker: Sha Nicholson MD GFR, Amer >60 Normal >60 [facility] Comment on above: Performed By: #### C BC, PT, CMPX, ALEJANDRO, LIP, MG, KAM, TRIG #### [facility] [address] [place] [phone] Glass Checker: Sadi Gambino MD #### IOCAL #### [address] [address] Glass Checker: Sha Nicholson MD GFR,non Amer >60 Normal >60 [facility] Comment on above: Performed By: #### C BC, PT, CMPX, ALEJANDRO, LIP, MG, KAM, TRIG #### [facility] [address] [place] [phone] Glass Checker: Sadi Gambino MD #### IOCAL #### [address] [address] Glass Checker: Sha Nicholson MD Glucose [Mass/Vol] 88 mg/dL Normal 70-99 [facility] Comment on above: Performed By: #### C BC, PT, CMPX, ALEJANDRO, LIP, MG, KAM, TRIG #### [facility] [address] [place] [address] Glass Checker: Sadi Gambino MD #### IOCAL #### [address] [address] Glass Checker: Sha Nicholson MD Potassium [Moles/Vol] 3.8 mmol/L Normal 3.7-5.3 [facility] Comment on above: Performed By: #### C BC, PT, CMPX, ALEJANDRO, LIP, MG, KAM, TRIG #### [facility] [address] [place] [phone] Glass Checker: Sadi Gambino MD #### IOCAL #### [address] [address] Glass Checker: Sha Nicholson MD Protein [Mass/Vol] 6.0 g/dL Low 6.4-8.3 [facility] Comment on above: Performed By: #### C BC, PT, CMPX, ALEJANDRO, LIP, MG, KAM, TRIG #### [facility] [address] [place] [phone] Glass Checker: Sadi Gambino MD #### IOCAL #### [address] [address] Glass Checker: Sha Nicholson MD Sodium [Moles/Vol] 140 mmol/L Normal 135-144 [facility] Comment on above: Performed By: #### C BC, PT, CMPX, ALEJANDRO, LIP, MG, KAM, TRIG #### [facility] [address] [place] [address] Glass Checker: Sadi Gambino MD #### IOCAL #### [address] [address] Glass Checker: Sha Nicholson MD Urea nitrogen [Mass/Vol] 5 mg/dL Low 6-20 [facility] Comment on above: Performed By: #### C BC, PT, CMPX, ALEJANDRO, LIP, MG, KAM, TRIG #### [facility] [address] [place] [address] Glass Checker: Sadi Gambino MD #### IOCAL #### [address] [address] Glass Checker: Sha Nicholson MD Albumin/Globulin [Mass ratio] NOT REPORTED Normal 1.0-2.5 [facility] Comment on above: Performed By: #### C BC, PT, CMPX, ALEJANDRO, LIP, MG, KAM, TRIG #### [facility] [address] [place] [phone] Glass Checker: Sadi Gambino MD #### IOCAL #### [address] [address] Glass Checker: Sha Nicholson MD Staging: NOT REPORTED Normal [facility] Comment on above: Performed By: #### C BC, PT, CMPX, ALEJANDRO, LIP, MG, KAM, TRIG #### [facility] [place] [address] Glass Checker: Sadi Gambino MD #### IOCAL #### [address] [address] Glass Checker: Sha Nicholson MD Comp Metabolic w Bili Profil med 06-10-2019 Albumin [Mass/Vol] 3.5 g/dL 3.5 - 5.2 g/dL [place] Albumin/Globulin [Mass ratio] NOT REPORTED [place] ALP [Catalytic activity/Vol] 89 U/L 40 - 129 U/L [place] ALT [Catalytic activity/Vol] 100 U/L High 5 - 41 U/L [place] Anion gap [Moles/Vol] 12 mmol/L 9 - 17 mmol/L [place] AST [Catalytic activity/Vol] 30 U/L <40 [place] Bilirubin Ql (U) 0.87 mg/dL 0.3 - 1.2 mg/dL [place] Bilirubin, Indirect 0.55 mg/dL 0 - 1 mg/dL [place] Bilirubin.direct [Mass/Vol] 0.32 mg/dL High <0.31 [place] Calcium [Mass/Vol] 8.5 mg/dL Low 8.6 - 10. 4 mg/dL [place] Chloride [Moles/Vol] 104 mmol/L 98 - 10 7 mmol/L [place] CO2 [Moles/Vol] 24 mmol/L 20 - 31 mmol/L [place] Creatinine [Mass/Vol] 0.46 mg/dL Low 0.7 - 1.2 mg/dL [place] GFR >60 >60 mL/min [place] GFR Non- >60 >60 mL/min [place] GFR/1.73 sq M predicted among non-blacks MDRD (S/P/Bld) [Vol rate/Area] NOT REPORTED [place] GFR/1.73 sq M predicted among non-blacks MDRD (S/P/Bld) [Vol rate/Area] [place] Comment on above: Average GFR for 30-3 9 years old: 107 mL/min/1.73sq m Chronic Kidney Disease: <60 mL/min/1.73sq m Kidney failure: <15 mL/min/1.73sq m eGFR calculated using average adult body mass. Additional eGFR calculator available at: http://www.globalrp.com/multiple_crcl_2012.htm Glucose [Mass/Vol] 88 mg/dL 70 - 99 mg/dL [place], [place] Potassium [Moles/Vol] 3.8 mmol/L 3.7 - 5.3 mmol/L [place] Protein [Mass/Vol] 6.0 g/dL Low 6.4 - 8.3 g/dL [place] Sodium [Moles/Vol] 140 mmol/L 135 - 144 mmol/L [place] Urea nitrogen [Mass/Vol] 5 mg/dL Low 6 - 20 mg/dL [place] Lipaseon 06-10-2019 Lipase [Catalytic activity/Vol] 198 U/L High 13-60 [facility] Comment on above: Performed By: #### C BC, PT, CMPX, ALEJANDRO, LIP, MG, KAM, TRIG #### [facility] [address] [place] [address] Glass Checker: Sadi Gambino MD #### IOCAL #### [address] [phone] Glass Checker: Sha Nicholson MD Lipase [Catalytic activity/Vol] 198 U/L High 13 - 60 U/L [place] Otheron 06-10-2019 Interpretation and review of laboratory results Abnormal [place] Amylaseon 06-09-2019 Amylase [Catalytic activity/Vol] 645 U/L Critically high 28-100 [facility] Comment on above: Performed By: #### C BC, PT, CMPX, ALEJANDRO, LIP, MG, KAM, TRIG #### [facility] [address] [place] [address] Glass Checker: Sadi Gambino MD #### IOCAL #### [address] [phone] Glass Checker: Sha Nicholson MD Amylase [Catalytic activity/Vol] 645 U/L Critically high 28 - 100 U/L [place] CBCon 06-09-2019 Erythrocyte distribution width (RBC) [Ratio] 12.2 % Normal 11.8-14.4 [facility] Comment on above: Performed By: #### C BC, PT, CMPX, ALEJANDRO, LIP, MG, KAM, TRIG #### [facility] [address] [place] [address] [phone] Glass Checker: Sadi Gambino MD #### IOCAL #### [address] [phone] Glass Checker: Sha Nicholson MD Hematocrit (Bld) [Volume fraction] 39.0 % Low 40.7-50.3 [facility] Comment on above: Performed By: #### C BC, PT, CMPX, ALEJANDRO, LIP, MG, KAM, TRIG #### [facility] [address] [place] [address] [phone] Glass Checker: Sadi Gambino MD #### IOCAL #### [address] [phone] Glass Checker: Sha Nicholson MD Hemoglobin (Bld) [Mass/Vol] 13.8 g/dL Normal 13.0-17.0 [facility] Comment on above: Performed By: #### C BC, PT, CMPX, ALEJANDRO, LIP, MG, KAM, TRIG #### [facility] [address] [place] [address] [phone] Glass Checker: Sadi Gambino MD #### IOCAL #### [address] [address] Glass Checker: Sha Nicholson MD MCH (RBC) [Entitic mass] 30.9 pg Normal 25.2-33.5 [facility] Comment on above: Performed By: #### C BC, PT, CMPX, ALEJANDRO, LIP, MG, KAM, TRIG #### [facility] [address] [place] [address] Glass Checker: Sadi Gambino MD #### IOCAL #### [address] [address] Glass Checker: Sha Nicholson MD MCHC (RBC) [Mass/Vol] 35.4 g/dL High 28.4-34.8 [facility] Comment on above: Performed By: #### C BC, PT, CMPX, ALEJANDRO, LIP, MG, KAM, TRIG #### [facility] [address] [place] [phone] Glass Checker: Sadi Gambino MD #### IOCAL #### [address] [address] Glass Checker: Sha Nicholson MD MCV (RBC) [Entitic vol] 87.4 fL Normal 82.6-102.9 M [facility] Comment on above: Performed By: #### C BC, PT, CMPX, ALEJANDRO, LIP, MG, KAM, TRIG #### [facility] [address] [place] [phone] Glass Checker: Sadi Gambino MD #### IOCAL #### [address] [address] Glass Checker: Sha Nicholson MD NRBC Automated 0.0 per [address] [facility] Comment on above: Performed By: #### C BC, PT, CMPX, ALEJANDRO, LIP, MG, KAM, TRIG #### [facility] [address] [place] [phone] Glass Checker: Sadi Gambino MD #### IOCAL #### [address] [address] Glass Checker: Sha Nicholson MD Platelet mean volume (Bld) [Entitic vol] 10.7 fL Normal 8.1-13.5 [facility] Comment on above: Performed By: #### C BC, PT, CMPX, ALEJANDRO, LIP, MG, KAM, TRIG #### [facility] [address] [place] [address] Glass Checker: Sadi Gambino MD #### IOCAL #### [address] [address] Glass Checker: Sha Nicholson MD Platelets (Bld) [#/Vol] 186 10*3/uL Normal 138-453 [facility] Comment on above: Performed By: #### C BC, PT, CMPX, ALEJANDRO, LIP, MG, KAM, TRIG #### [facility] [address] [place] [phone] Glass Checker: Sadi Gambino MD #### IOCAL #### [address] [address] Glass Checker: Sha Nicholson MD RBC (Bld) [#/Vol] 4.46 10*6/uL Normal 4.21-5.77 [facility] Comment on above: Performed By: #### C BC, PT, CMPX, ALEJANDRO, LIP, MG, KAM, TRIG #### [facility] [address] [place] [phone] Glass Checker: Sadi Gambino MD #### IOCAL #### [address] [address] Glass Checker: Sha Nicholson MD WBC (Bld) [#/Vol] 11.5 10*3/uL High 3.5-11.3 [facility] Comment on above: Performed By: #### C BC, PT, CMPX, ALEJANDRO, LIP, MG, KAM, TRIG #### [facility] [address], [place] [phone] Glass Checker: Sadi Gambino MD #### IOSHON #### [facility] [place], [place] [phone] Glass Checker: Sha Nicholson MD Erythrocyte distribution width (RBC) [Ratio] 12.2 % 11.8 - 14.4 % [place] Hematocrit (Bld) [Volume fraction] 39.0 % Low 40.7 - 50.3 % [place] Hemoglobin (Bld) [Mass/Vol] 13.8 g/dL 13 - 17 g/dL [place] Interpretation and review of laboratory results Abnormal [place] MCH (RBC) [Entitic mass] 30.9 pg 25.2 - 33.5 pg [place] MCHC (RBC) [Mass/Vol] 35.4 g/dL High 28.4 - 34.8 g/dL [place] MCV (RBC) [Entitic vol] 87.4 fL 82.6 - 102.9 fL [place] Platelet mean volume (Bld) [Entitic vol] 10.7 fL 8.1 - 13.5 fL [place] Platelets (Bld) [#/Vol] 186 10*3/uL [place] RBC (Bld) [#/Vol] 4.46 10*6/uL 4.21 - 5.7 7 m/uL [place] WBC (Bld) [#/Vol] 0.0 10*3/uL 0.0 per 10 0 WBC [place] WBC (Bld) [#/Vol] 11.5 10*3/uL [place] Calcium, Ionicon 06-09-2019 Calcium [Mass/Vol] 1.23 mmol/L Normal 1.13-1.33 [facility] Comment on above: Performed By: #### C BC, PT, CMPX, ALEJANDRO, LIP, MG, KAM, TRIG #### [facility] [address] [place] [address] Glass Checker: Sadi Gambino MD #### IOCAL #### [address] [address] Glass Checker: Sha Nicholson MD Calcium, Ionizedon 9 Calcium [Mass/Vol] 1.23 mmol/L 1.13 - 1. 33 mmol/L [facility], [place] Comp Metabolic Pr/rfx MGon 1 08-09-2018 (cont.) Normal [facility] Comment on above: Result Comment: Aver age GFR for 30-39 years old: 107 mL/min/1.73sq m Chronic Kidney Disease: <60 mL/min/1.73sq m Kidney failure: <15 mL/min/1.73sq m eGFR calculated using average adult body mass. Additional eGFR calculator available at: http://www.[employer]/multiple_crcl_2012.htm Performed By: #### C BC, PT, CMPX, ALEJANDRO, LIP, MG, KAM, TRIG #### [facility] [address] [place] [address] Glass Checker: Sadi Gambino MD #### IOCAL #### [address] [address] Glass Checker: Sha Nicholson MD Albumin [Mass/Vol] 3.6 g/dL Normal 3.5-5.2 [facility] Comment on above: Performed By: #### C BC, PT, CMPX, ALEJANDRO, LIP, MG, KAM, TRIG #### [facility] [address] [place] [address] Glass Checker: Sadi Gambino MD #### IOCAL #### [phone] [place] [address] Glass Checker: Sha Nicholson MD Alkaline Phos 109 U/L Normal 40-129 [facility] Comment on above: Performed By: #### C BC, PT, CMPX, ALEJANDRO, LIP, MG, KAM, TRIG #### [facility] [place] [address] Glass Checker: Sadi Gambino MD #### IOCAL #### [address] [address] Glass Checker: Sha Nicholson MD ALT [Catalytic activity/Vol] 119 U/L High 5-41 [facility] Comment on above: Performed By: #### C BC, PT, CMPX, ALEJANDRO, LIP, MG, KAM, TRIG #### [facility] [address] [place] [phone] Glass Checker: Sadi Gambino MD #### IOCAL #### [address] [address] Glass Checker: Sha Nicholson MD Anion gap [Moles/Vol] 10 mmol/L Normal 9-17 [facility] Comment on above: Performed By: #### C BC, PT, CMPX, ALEJANDRO, LIP, MG, KAM, TRIG #### [facility] [address] [place] [phone] Glass Checker: Sadi Gambino MD #### IOCAL #### [address] [address] Glass Checker: Sha Nicholson MD AST [Catalytic activity/Vol] 31 U/L Normal <40 [facility] Comment on above: Performed By: #### C BC, PT, CMPX, ALEJANDRO, LIP, MG, KAM, TRIG #### [facility] [address] [place] [phone] Glass Checker: Sadi Gambino MD #### IOCAL #### [address] [address] Glass Checker: Sha Nicholson MD Bilirubin Ql (U) 1.04 mg/dL Normal 0.3-1.2 [facility] Comment on above: Performed By: #### C BC, PT, CMPX, ALEJANDRO, LIP, MG, KAM, TRIG #### [facility] [address] [place] [address] Glass Checker: Sadi Gambion MD #### IOCAL #### [address] [address] Glass Checker: Sha Nicholson MD BUN/CRE Ratio 15 Normal 9-20 [facility] Comment on above: Performed By: #### C BC, PT, CMPX, ALEJANDRO, LIP, MG, KAM, TRIG #### [facility] [address] [place] [phone] Glass Checker: Sadi Gambino MD #### IOCAL #### [address] [address] Glass Checker: Sha Nicholson MD Calcium [Mass/Vol] 8.5 mg/dL Low 8.6-10.4 [facility] Comment on above: Performed By: #### C BC, PT, CMPX, ALEJANDRO, LIP, MG, KAM, TRIG #### [facility] [address] [place] [address] Glass Checker: Sadi Gambino MD #### IOCAL #### [address] [address] Glass Checker: Sha Nicholson MD Chloride [Moles/Vol] 101 mmol/L Normal 98-107 [facility] Comment on above: Performed By: #### C BC, PT, CMPX, ALEJANDRO, LIP, MG, KAM, TRIG #### [facility] [address] [place] [address] Glass Checker: Sadi Gambino MD #### IOCAL #### [address] [address] Glass Checker: Sha Nicholson MD CO2 [Moles/Vol] 25 mmol/L Normal 20-31 [facility] Comment on above: Performed By: #### C BC, PT, CMPX, ALEJANDRO, LIP, MG, KAM, TRIG #### [facility] [address] [place] [address] Glass Checker: Sadi Gambino MD #### IOCAL #### [address] [address] Glass Checker: Sha Nicholson MD Creatinine [Mass/Vol] 0.47 mg/dL Low 0.70-1.20 [facility] Comment on above: Performed By: #### C BC, PT, CMPX, ALEJANDRO, LIP, MG, KAM, TRIG #### [facility] [address] [place] [address] Glass Checker: Sadi Gambino MD #### IOCAL #### [address] [address] Glass Checker: Sha Nicholson MD GFR, Amer >60 Normal >60 [facility] Comment on above: Performed By: #### C BC, PT, CMPX, ALEJANDRO, LIP, MG, KAM, TRIG #### [facility] [address] [place] [address] Glass Checker: Sadi Gambino MD #### IOCAL #### [address] [address] Glass Checker: Sha Nicholson MD GFR,non Amer >60 Normal >60 [facility] Comment on above: Performed By: #### C BC, PT, CMPX, ALEJANDRO, LIP, MG, KAM, TRIG #### [facility] [address] [place] [address] Glass Checker: Sadi Gambino MD #### IOCAL #### [address] [address] Glass Checker: Sha Nicholson MD Glucose [Mass/Vol] 78 mg/dL Normal 70-99 [facility] Comment on above: Performed By: #### C BC, PT, CMPX, ALEJANDRO, LIP, MG, KAM, TRIG #### [facility] [address] [place] [phone] Glass Checker: Sadi Gambino MD #### IOCAL #### [address] [address] Glass Checker: Sha Nicholson MD Potassium [Moles/Vol] 3.6 mmol/L Low 3.7-5.3 [facility] Comment on above: Performed By: #### C BC, PT, CMPX, ALEJANDRO, LIP, MG, KAM, TRIG #### [facility] [address] [place] [address] Glass Checker: Sadi Gambino MD #### IOCAL #### [address] [address] Glass Checker: Sha Nicholson MD Protein [Mass/Vol] 6.0 g/dL Low 6.4-8.3 [facility] Comment on above: Performed By: #### C BC, PT, CMPX, ALEJANDRO, LIP, MG, KAM, TRIG #### [facility] [address] [place] [phone] Glass Checker: Sadi Gambino MD #### IOCAL #### [address] [address] Glass Checker: Sha Nicholson MD Sodium [Moles/Vol] 136 mmol/L Normal 135-144 [facility] Comment on above: Performed By: #### C BC, PT, CMPX, ALEJANDRO, LIP, MG, KAM, TRIG #### [facility] [address] [place] [address] Glass Checker: Sadi Gambino MD #### IOCAL #### [address] [address] Glass Checker: Sha Nicholson MD Urea nitrogen [Mass/Vol] 7 mg/dL Normal 6-20 [facility] Comment on above: Performed By: #### C BC, PT, CMPX, ALEJANDRO, LIP, MG, KAM, TRIG #### [facility] [address] [place] [phone] Glass Checker: Sadi Gambino MD #### IOCAL #### [address] [address] Glass Checker: Sha Nicholson MD Albumin/Globulin [Mass ratio] NOT REPORTED Normal 1.0-2.5 [facility] Comment on above: Performed By: #### C BC, PT, CMPX, ALEJANDRO, LIP, MG, KAM, TRIG #### [facility] [address] [place] [phone] Glass Checker: Sadi Gambino MD #### IOCAL #### [address] [address] Glass Checker: Sha Nicholson MD Staging: NOT REPORTED Normal [facility] Comment on above: Performed By: #### C BC, PT, CMPX, ALEJANDRO, LIP, MG, KAM, TRIG #### [facility] [address] [place] [phone] Glass Checker: Sadi Gambino MD #### IOCAL #### [phone] [place] [address] Glass Checker: Sha Nicholson MD Comprehensive Metabolic Pane l w/ Reflex to MGon 06-09-2019 Albumin [Mass/Vol] 3.6 g/dL 3.5 - 5.2 g/dL [place] Albumin/Globulin [Mass ratio] NOT REPORTED [place] ALP [Catalytic activity/Vol] 109 U/L 40 - 129 U/L [place] ALT [Catalytic activity/Vol] 119 U/L High 5 - 41 U/L [place] Anion gap [Moles/Vol] 10 mmol/L 9 - 17 mmol/L [place] AST [Catalytic activity/Vol] 31 U/L <40 [place] Bilirubin Ql (U) 1.04 mg/dL 0.3 - 1.2 mg/dL [place] Bun/Cre Ratio 15 [place] Calcium [Mass/Vol] 8.5 mg/dL Low 8.6 - 10. 4 mg/dL [place] Chloride [Moles/Vol] 101 mmol/L 98 - 10 7 mmol/L [place] CO2 [Moles/Vol] 25 mmol/L 20 - 31 mmol/L [place] Creatinine [Mass/Vol] 0.47 mg/dL Low 0.7 - 1.2 mg/dL [place] GFR >60 >60 mL/min [place] GFR Non- >60 >60 mL/min [place] GFR/1.73 sq M predicted among non-blacks MDRD (S/P/Bld) [Vol rate/Area] [place] Comment on above: Average GFR for 30-3 9 years old: 107 mL/min/1.73sq m Chronic Kidney Disease: <60 mL/min/1.73sq m Kidney failure: <15 mL/min/1.73sq m eGFR calculated using average adult body mass. Additional eGFR calculator available at: http://www.[employer]/multiple_crcl_2012.htm GFR/1.73 sq M predicted among non-blacks MDRD (S/P/Bld) [Vol rate/Area] NOT REPORTED [place] Glucose [Mass/Vol] 78 mg/dL 70 - 99 mg/dL [place], [place] Potassium [Moles/Vol] 3.6 mmol/L Low 3.7 - 5.3 mmol/L [place] Protein [Mass/Vol] 6.0 g/dL Low 6.4 - 8.3 g/dL [place] Sodium [Moles/Vol] 136 mmol/L 135 - 144 mmol/L [place] Urea nitrogen [Mass/Vol] 7 mg/dL 6 - 20 mg/dL [place] Lipaseon 06-09-2019 Lipase [Catalytic activity/Vol] 688 U/L High 13-60 [facility] Comment on above: Performed By: #### C BC, PT, CMPX, ALEJANDRO, LIP, MG, KAM, TRIG #### [facility] [address] [place] [address] Glass Checker: Sadi Gambino MD #### IOCAL #### [address] [phone] Glass Checker: Sha Nicholson MD Lipase [Catalytic activity/Vol] 688 U/L High 13 - 60 U/L [place] Magnesiumon 06-09-2019 Magnesium [Mass/Vol] 1.8 mg/dL Normal 1.6-2.6 [facility] Comment on above: Performed By: #### C BC, PT, CMPX, ALEJANDRO, LIP, MG, KAM, TRIG #### [facility] [address] [place] [address] Glass Checker: Sadi Gambino MD #### IOCAL #### [phone] [place], [place] [phone] Glass Checker: Sha Nicholson MD Magnesium [Mass/Vol] 1.8 mg/dL 1.6 - 2 .6 mg/dL [facility] TRENT Otheron 06-09-2019 Interpretation and review of laboratory [facility] INR Coag (PPP) [Relative time] 1.0 {INR} Normal [facility] Comment on above: Result Comment: Therapeutic Range: Moderate Anticoagulant Intensity: INR = 2.0-3.0 High Anticoagulant Intensity: INR = 2.5-3.5 High anticoagulant intensity for patients with a mechanical prosthetic heart valve, thrombosis and antiphospholipid syndrome, or myocardial infarction. Performed By: #### C BC, PT, CMPX, ALEJANDRO, LIP, MG, KAM, TRIG #### [facility] [address] [place] [phone] Glass Checker: Sadi Gambino MD #### IOCAL #### [address] [phone] Glass Checker: Sha Nicholson MD PT Coag (PPP) [Time] 10.6 s Normal 9.7-11.6 [facility] Comment on above: Performed By: #### C BC, PT, CMPX, ALEJANDRO, LIP, MG, KAM, TRIG #### [facility] [address] [place] [address] [phone] Glass Checker: Sadi Gambino MD #### IOCAL #### [address] [address] Glass Checker: Sha Nicholson MD Phosphoruson 06-09-2019 Phosphate [Mass/Vol] 2.7 mg/dL 2.5 - 4 .5 mg/dL [place] Phosphorus, Inorg.on 019 Phosphorus, Inorg. 2.7 mg/dL Normal 2.5-4.5 [facility] Comment on above: Performed By: #### C BC, PT, CMPX, ALEJANDRO, LIP, MG, KAM, TRIG #### [facility] [address] [place] [address] [phone] Glass Checker: Sadi Gambino MD #### IOCAL #### [address] [phone] Glass Checker: Sha Nicholson MD Protime-INRon 06-09-2019 INR Coag (PPP) [Relative time] 1.0 {INR} [place] Comment on above: Therapeutic Range: Moderate Anticoagulant Intensity: INR = 2.0-3.0 High Anticoagulant Intensity: INR = 2.5-3.5 High anticoagulant intensity for patients with a mechanical prosthetic heart valve, thrombosis and antiphospholipid syndrome, or myocardial infarction. PT Coag (PPP) [Time] 10.6 s [place] Triglycerideon 06-09-2019 Triglyceride [Mass/Vol] 122 mg/dL <150 M [place] Comment on above: Triglyceride Guidelines: <150 Desirable 150-199 Borderline 200-499 High >499 Very high Based on AHA Guidelines for fasting triglyceride, May 2012. Triglycerideson 06-09-2019 Triglyceride [Mass/Vol] 122 mg/dL Normal <150 M [facility] Comment on above: Result Comment: Triglyceride Guidelines: <150 Desirable 150-199 Borderline 200-499 High >499 Very high Based on AHA Guidelines for fasting triglyceride, May 2012. Performed By: #### C BC, PT, CMPX, ALEJANDRO, LIP, MG, KAM, TRIG #### [facility] [address] [place], [place] [phone] Glass Checker: Sadi Gambino MD #### IOCAL #### [address] [address] Glass Checker: Sha Nicholson MD Hepatitis Acute Avni 06-08 Hep A Ab,IgM NONREACTIVE Normal NR [facility] Comment on above: Performed By: #### P HEP #### [address] [address] Glass Checker: Sha Nicholson MD Hep B Core Ab,IgM NONREACTIVE Normal NR [facility] Comment on above: Performed By: #### P HEP #### [facility] [place], [place] [phone] Glass Checker: Sha Nicholson MD Hep B Surf Ag NONREACTIVE Normal NR [facility] Comment on above: Performed By: #### P HEP #### [phone] [place], [place] [phone] Glass Checker: Sha Nicholson MD Hep C Ab NONREACTIVE Normal NR [facility] Comment on above: Result Comment: The [...] PCR. Performed By: #### P HEP #### [address] [phone] Glass Checker: Sha Nichoslon MD HAV IgM IA Qn (S) NONREACTIVE NONREACTIVE [place] Hep B Core Ab, IgM NONREACTIVE NONREACTIVE [place] Hepatitis B Surface Ag NONREACTIVE NONREACTIVE [place] Hepatitis C Ab NONREACTIVE NONREACTIVE [place] Comment on above: The hepatitis C [...] [Ratio] 12.4 % 11.8 - 14.4 % [place] Hematocrit (Bld) [Volume fraction] 47.2 % 40.7 - 50.3 % [place] Hemoglobin (Bld) [Mass/Vol] 16.0 g/dL 13 - 17 g/dL [place] Interpretation and review of laboratory results Abnormal [place] MCH (RBC) [Entitic mass] 30.4 pg 25.2 - 33.5 pg [place] MCHC (RBC) [Mass/Vol] 33.9 g/dL 28.4 - 34.8 g/dL [place] MCV (RBC) [Entitic vol] 89.7 fL 82.6 - 102.9 fL [place] Platelet mean volume (Bld) [Entitic vol] 10.6 fL 8.1 - 13.5 fL [place] Platelets (Bld) [#/Vol] 258 10*3/uL [place] RBC (Bld) [#/Vol] 5.26 10*6/uL 4.21 - 5.7 7 m/uL [place] WBC (Bld) [#/Vol] 15.4 10*3/uL High [place] WBC (Bld) [#/Vol] 0.0 10*3/uL 0.0 per 10 0 WBC [place] Erythrocyte distribution width (RBC) [Ratio] 12.4 % 11.8 - 14.4 % [place] Hematocrit (Bld) [Volume fraction] 44.2 % 40.7 - 50.3 % [place] Hemoglobin (Bld) [Mass/Vol] 15.0 g/dL 13 - 17 g/dL [place] MCH (RBC) [Entitic mass] 30.7 pg 25.2 - 33.5 pg [place] MCHC (RBC) [Mass/Vol] 33.9 g/dL 28.4 - 34.8 g/dL [place] MCV (RBC) [Entitic vol] 90.4 fL 82.6 - 102.9 fL [place] Platelet mean volume (Bld) [Entitic vol] 10.4 fL 8.1 - 13.5 fL [place] Platelets (Bld) [#/Vol] 227 10*3/uL [place] RBC (Bld) [#/Vol] 4.89 10*6/uL 4.21 - 5.7 7 m/uL [place] WBC (Bld) [#/Vol] 10.1 10*3/uL [place] WBC (Bld) [#/Vol] 0.0 10*3/uL 0.0 per 10 0 WBC [place] Comprehensive Metabolic Pane karla 06-07-2019 Albumin [Mass/Vol] 4.4 g/dL 3.5 - 5.2 g/dL [place] Albumin/Globulin [Mass ratio] 1.5 {ratio} [place] ALP [Catalytic activity/Vol] 120 U/L 40 - 129 U/L [place] ALT [Catalytic activity/Vol] 261 U/L High 5 - 41 U/L [place] Anion gap [Moles/Vol] 12 mmol/L 9 - 17 mmol/L [place] AST [Catalytic activity/Vol] 123 U/L High <40 [place] Bilirubin Ql (U) 5.24 mg/dL High 0.3 - 1.2 mg/dL [place] Bun/Cre Ratio 19 [place] Calcium [Mass/Vol] 9.3 mg/dL 8.6 - 10. 4 mg/dL [place] Chloride [Moles/Vol] 98 mmol/L 98 - 10 7 mmol/L [place] CO2 [Moles/Vol] 26 mmol/L 20 - 31 mmol/L [place] Creatinine [Mass/Vol] 0.57 mg/dL Low 0.7 - 1.2 mg/dL [place] GFR >60 >60 mL/min [place] GFR Non- >60 >60 mL/min [place] Glucose [Mass/Vol] 89 mg/dL 70 - 99 mg/dL [place] Interpretation and review of laboratory results Abnormal [place] Potassium [Moles/Vol] 3.5 mmol/L Low 3.7 - 5.3 mmol/L [place] Protein [Mass/Vol] 7.4 g/dL 6.4 - 8.3 g/dL [place] Sodium [Moles/Vol] 136 mmol/L 135 - 144 mmol/L [place] Urea nitrogen [Mass/Vol] 11 mg/dL 6 - 20 mg/dL [place] Comprehensive Metabolic Pane l w/ Reflex to MGon 06-07-2019 Albumin [Mass/Vol] 3.9 g/dL 3.5 - 5.2 g/dL [place] Albumin/Globulin [Mass ratio] 1.4 {ratio} [place] ALP [Catalytic activity/Vol] 90 U/L 40 - 129 U/L [place] ALT [Catalytic activity/Vol] 289 U/L High 5 - 41 U/L [place] Anion gap [Moles/Vol] 13 mmol/L 9 - 17 mmol/L [place] AST [Catalytic activity/Vol] 201 U/L High <40 [place] Bilirubin Ql (U) 3.38 mg/dL High 0.3 - 1.2 mg/dL [place] Bun/Cre Ratio 15 [place] Calcium [Mass/Vol] 9.3 mg/dL 8.6 - 10. 4 mg/dL [place] Chloride [Moles/Vol] 99 mmol/L 98 - 10 7 mmol/L [place] CO2 [Moles/Vol] 22 mmol/L 20 - 31 mmol/L [place] Creatinine [Mass/Vol] 0.61 mg/dL Low 0.7 - 1.2 mg/dL [place] GFR >60 >60 mL/min [place] GFR Non- >60 >60 mL/min [place] Glucose [Mass/Vol] 88 mg/dL 70 - 99 mg/dL [place] Interpretation and review of laboratory results Abnormal [place] Potassium [Moles/Vol] 4.3 mmol/L 3.7 - 5.3 mmol/L [place] Protein [Mass/Vol] 6.7 g/dL 6.4 - 8.3 g/dL [place] Sodium [Moles/Vol] 134 mmol/L Low 135 - 144 mmol/L [place] Urea nitrogen [Mass/Vol] 9 mg/dL 6 - 20 mg/dL [place] EKG 12 Leadon 06-07-2019 Atrial Rate 80 BPM [place] P [place] -6 degrees [place] P-R Interval 146 ms [place] Q-T Interval 380 ms [place] QRS Duration 104 ms [place] QTc Calculation (Bazett) 438 ms [place] R [place] -[address] [facility], [place] T [place] 25 degrees [place] Ventricular Rate 80 BPM [place] Jasen, Mhpn Incoming Ekg Results From [facility] - 06/07/2019 5:43 AM EDT Normal sinus rhythm Normal ECG When compared with ECG of 17-FEB-2018 18:55, No significant change was found Confirmed by Abran RITCHIE MD ([id number]) on 06/07/2019 5:43:09 AM [place] Normal sinus rhythm Normal ECG When compared with ECG of 17-FEB-2018 18:55, No significant change was found Confirmed by Abran RITCHIE MD ([id number]) on 06/07/2019 5:43:09 AM [place] Lactic Acid, Plasmaon 2018 Lactate [Moles/Vol] 1.1 mmol/L 0.5 - 2. 2 mmol/L [place] Lactic Acid, Whole Blood NOT REPORTED 0.7 - 2.1 mmol/L [place] Lipaseon 06-07-2019 Interpretation and review of laboratory results Abnormal [place] Lipase [Catalytic activity/Vol] U/L Critically high 13 - 60 U/L [place] Metabolic Panelon 06-07-2019 GFR/1.73 sq M predicted among non-blacks MDRD (S/P/Bld) [Vol rate/Area] [place] Comment on above: Average GFR for 30-3 9 years old: 107 mL/min/1.73sq m Chronic Kidney Disease: <60 mL/min/1.73sq m Kidney failure: <15 mL/min/1.73sq m eGFR calculated using average adult body mass. Additional eGFR calculator available at: http://www.KeepRecipes/multiple_crcl_2012.htm Stage 1: Some kidney damage normal GFR Stage 2: Mild kidney damage GFR 60-89 Stage 3: Moderate kidney damage GFR 30-59 Stage 4: Severe kidney damage GFR 15-29 Stage 5: Severe kidney damage GFR <15 ESRD - chronic treatment by dialysis or transplant GFR/1.73 sq M predicted among non-blacks MDRD (S/P/Bld) [Vol rate/Area] [place] Comment on above: Average GFR for 30-3 9 years old: 107 mL/min/1.73sq m Chronic Kidney Disease: <60 mL/min/1.73sq m Kidney failure: <15 mL/min/1.73sq m eGFR calculated using average adult body mass. Additional eGFR calculator available at: http://www.KeepRecipes/multiple_crcl_2012.htm Stage 1: Some kidney damage normal GFR Stage 2: Mild kidney damage GFR 60-89 Stage 3: Moderate kidney damage GFR 30-59 Stage 4: Severe kidney damage GFR 15-29 Stage 5: Severe kidney damage GFR <15 ESRD - chronic treatment by dialysis or transplant GALLBLADDER RUQon 019 Cholesterol [Mass/Vol] Cholelithiasis. Abnormal findings of the gallbladder, suspicious for acute cholecystitis. [place] Jasen, pn Incoming Radiant Results From [facility] - 06/07/2019 7:57 AM EDT EXAMINATION: RIGHT [...] of the gallbladder, suspicious for acute cholecystitis. [place] EXAMINATION: RIGHT UPPER QUADRANT ULTRASOUND 06/07/2019 [...] No evidence of right upper quadrant ascites. [place] APTTon 06-06-2019 aPTT Coag (Bld) [Time] 26.9 s [place] CBC auto differentialon 05-09 Basophils (Bld) [#/Vol] 0.05 10*3/uL [place] Basophils/100 WBC (Bld) 0 % 0 - 2 % M [place] Differential Type NOT REPORTED [place] Eosinophils (Bld) [#/Vol] 0.09 10*3/uL [place] Eosinophils/100 WBC (Bld) 1 % 1 - 4 % [place] Erythrocyte distribution width (RBC) [Ratio] 12.0 % 11.8 - 14.4 % [place] Hematocrit (Bld) [Volume fraction] 48.2 % 40.7 - 50.3 % [place] Hemoglobin (Bld) [Mass/Vol] 17.0 g/dL 13 - 17 g/dL [place] Immature granulocytes (Bld) [#/Vol] 0.06 10*3/uL [place] Immature granulocytes (Bld) [#/Vol] 0 % 0 [place] Interpretation and review of laboratory results Abnormal [place] Lymphocytes (Bld) [#/Vol] 1.45 10*3/uL [place] Lymphocytes/100 WBC (Bld) 10 % Low 24 - 43 % [place] MCH (RBC) [Entitic mass] 31.1 pg 25.2 - 33.5 pg [place] MCHC (RBC) [Mass/Vol] 35.3 g/dL High 28.4 - 34.8 g/dL [place] MCV (RBC) [Entitic vol] 88.1 fL 82.6 - 102.9 fL [place] Monocytes (Bld) [#/Vol] 0.82 10*3/uL [place] Monocytes/100 WBC (Bld) 6 % 3 - 12 % [place] Platelet mean volume (Bld) [Entitic vol] 10.5 fL 8.1 - 13.5 fL [place] Platelets (Bld) [#/Vol] 268 10*3/uL [place] Platelets (Bld) [#/Vol] NOT REPORTED [place] RBC (Bld) [#/Vol] 5.47 10*6/uL 4.21 - 5.7 7 m/uL [place] RBC morphology finding Nom (Bld) NOT REPORTED [place] Segmented neutrophils/100 WBC (Bld) 83 % High 36 - 65 % [place] Segs Absolute 11.83 [place] WBC (Bld) [#/Vol] 0.0 10*3/uL 0.0 per 10 0 WBC [place] WBC (Bld) [#/Vol] 14.3 10*3/uL [place] WBC Morphology NOT REPORTED [place] ABDOMEN PELVIS W IV CONTR Lynn 06-06-2019 INR Coag (Bld) [Relative time] Addendum by Hitesh Becker MD on 06/06/2019 8:35 PM ADDENDUM: Possible mild pericholecystic fluid and punctate gallstone. Possible mild inflammatory changes. Recommend gallbladder ultrasound to exclude cholelithiasis or cholecystitis. [place] EXAMINATION: CT OF THE ABDOMEN AND [...] fusion rods and a disc spacer L4-5. [place] Nonobstructing nephrolith on the left otherwise no acute disease [place] Jasen, Mhpn Incoming Radiant Results From [facility] - 06/06/2019 8:01 PM EDT EXAMINATION: CT [...] on the left otherwise no acute disease [place] Comprehensive metabolic pane karla 06-06-2019 Albumin [Mass/Vol] 4.9 g/dL 3.5 - 5.2 g/dL [place] Albumin/Globulin [Mass ratio] 1.4 {ratio} [place] ALP [Catalytic activity/Vol] 88 U/L 40 - 129 U/L [place] ALT [Catalytic activity/Vol] 268 U/L High 5 - 41 U/L [place] Anion gap [Moles/Vol] 11 mmol/L 9 - 17 mmol/L [place] AST [Catalytic activity/Vol] 241 U/L High <40 [place] Bilirubin Ql (U) 2.32 mg/dL High 0.3 - 1.2 mg/dL [place] Bun/Cre Ratio 15 [place] Calcium [Mass/Vol] 10.4 mg/dL 8.6 - 10. 4 mg/dL [place] Chloride [Moles/Vol] 96 mmol/L Low 98 - 10 7 mmol/L [place] CO2 [Moles/Vol] 29 mmol/L 20 - 31 mmol/L [place] Creatinine [Mass/Vol] 0.62 mg/dL Low 0.7 - 1.2 mg/dL [place] GFR >60 >60 mL/min [place] GFR Non- >60 >60 mL/min [place] Glucose [Mass/Vol] 165 mg/dL High 70 - 99 mg/dL [place] Interpretation and review of laboratory results Abnormal [place] Potassium [Moles/Vol] 4.0 mmol/L 3.7 - 5.3 mmol/L [place] Protein [Mass/Vol] 8.3 g/dL 6.4 - 8.3 g/dL [place] Sodium [Moles/Vol] 136 mmol/L 135 - 144 mmol/L [place] Urea nitrogen [Mass/Vol] 9 mg/dL 6 - 20 mg/dL [place] Lactic acid, plasmaon 2018 Lactate [Moles/Vol] 0.6 mmol/L 0.5 - 2. 2 mmol/L [place] Lactic Acid, Whole Blood NOT REPORTED 0.7 - 2.1 mmol/L [place] Lipaseon 06-06-2019 Lipase [Catalytic activity/Vol] 14 U/L 13 - 60 U/L [place] Metabolic Panelon 06-06-2019 GFR/1.73 sq M predicted among non-blacks MDRD (S/P/Bld) [Vol rate/Area] [place] Comment on above: Stage 1: Some [...] body mass. Additional eGFR calculator available at: http://www.KeepRecipes/multiple_crcl_2012.htm [facility]INRon 06-06-2019 INR Coag (PPP) [Relative time] 1.0 {INR} [place] PT Coag (PPP) [Time] 10.1 s [place] Urinalysis with microscopico n 06-06-2019 Amorphous, UA 3+ Abnormal None [place] Bacteria, UA NOT REPORTED None [place] Bilirubin Urine SMALL Abnormal NEGATIVE [place] Casts UA NOT REPORTED /LPF [place] Color, UA YELLOW YELLOW [place] Crystals UA NOT REPORTED None /HPF [place] Epithelial Cells UA 0 TO 2 [place] Glucose, Ur Negative NEGATIVE [place] Interpretation and review of laboratory results Abnormal [place] Ketones Ql (U) Negative NEGATIVE [place] Leukocyte esterase Test strip Ql (U) Negative NEGATIVE [place] Mucus, UA NOT REPORTED None [place] Nitrite, Urine Negative NEGATIVE [place] Other Observations UA NOT REPORTED NOT REQ. M [place] pH, UA 8.5 [place] Protein (U) [Mass/Vol] Negative NEGATIVE Me [place] RBC (U) [#/Vol] None [place] Renal Epithelial, Urine NOT REPORTED 0 /HPF [place] Specific [place], UA 1.015 [place], [place] Trichomonas, UA NOT REPORTED None [place] Turbidity UA CLEAR CLEAR [place] Urinalysis Comments NOT REPORTED [place] Urine Hgb Negative NEGATIVE [place] Urobilinogen, Urine Normal Normal [place] WBC, UA None [place] Yeast, UA NOT REPORTED None [place] Vital Signs Date Time Vital Sign Value Performing Clinician Sherice gottlieb 07-30-2024 13:55-0500 Blood Pressure Location Tan [employer] [facility] 07-30-2024 13:55-0500 Body temperature 98.42 [degF] [facility] 07-30-2024 13:55-0500 Diastolic blood pressure 87 mm[Hg] [facility] [employer] [facility] 07-30-2024 13:55-0500 Heart rate 90 /min [facility] [employer] [facility] 07-30-2024 13:55-0500 Mean blood pressure 103 mm[Hg] Tan [employer] [facility] 07-30-2024 13:55-0500 Respiratory rate 18 /min [facility] [employer] [facility] 07-30-2024 13:55-0500 SaO2% (BldA) [Mass fraction] 93 % [facility] 07-30-2024 13:55-0500 Systolic blood pressure 135 mm[Hg] Tan Mourany [facility] 07-30-2024 13:47-0500 SaO2% (BldA) [Mass fraction] 93 % Tan Mourany [facility] 07-30-2024 13:32-0500 SaO2% (BldA) [Mass fraction] 92 % Tan Mourany [facility] 07-30-2024 12:51-0500 Blood Pressure Location Tan Mourany [facility] 07-30-2024 12:51-0500 Body temperature 98.24 [degF] Tan Mourany [facility] 07-30-2024 12:51-0500 Diastolic blood pressure 79 mm[Hg] Tan Mourany [facility] 07-30-2024 12:51-0500 Heart rate 88 /min Tan Mourany [facility] 07-30-2024 12:51-0500 Respiratory rate 18 /min Tan Mourany [facility] 07-30-2024 12:51-0500 Systolic blood pressure 126 mm[Hg] Tan Mourany [facility] 07-30-2024 12:40-0500 Body temperature 98.42 [degF] Tan Mourany [facility] 07-30-2024 12:40-0500 Diastolic blood pressure 74 mm[Hg] Tan Mourany [facility] 07-30-2024 12:40-0500 Heart rate 89 /min Tan Mourany [facility] 07-30-2024 12:40-0500 Mean blood pressure 91 mm[Hg] Tan Mourany [facility] 07-30-2024 12:40-0500 Respiratory rate 14 /min Tan Mourany [facility] 07-30-2024 12:40-0500 Systolic blood pressure 126 mm[Hg] Tan Mourany [facility] 07-30-2024 12:30-0500 Heart rate 89 /min Tan Mourany [facility] 07-30-2024 12:30-0500 Mean blood pressure 97 mm[Hg] Tan Mourany [facility] 07-30-2024 12:30-0500 Respiratory rate 10 /min Tan Mourany [facility] 07-30-2024 12:25-0500 Heart rate 87 /min Tan Mourany [facility] 07-30-2024 12:25-0500 Respiratory rate 9 /min Tan Mourany [facility] 07-30-2024 07:33-0500 Mean blood pressure 104 mm[Hg] Tan Mourany [facility] 07-30-2024 07:32-0500 Respiratory rate 16 /min Tan Mourany [facility] 07-30-2024 07:32-0500 Body temperature 97.52 [degF] Tan Mourany [facility] 07-30-2024 07:32-0500 Mean blood pressure 114 mm[Hg] Tan Mourany [facility] 07-26-2024 08:44-0500 Diastolic blood pressure 93 mm[Hg] Tan Mourany [facility] 07-26-2024 08:44-0500 Heart rate 75 /min Tan Lockharty [facility] 07-26-2024 08:44-0500 Systolic blood pressure 142 mm[Hg] Tan Bazziurany [facility] 04-09-2024 16:00-0400 Mean blood pressure 117 mm[Hg] Tan Ke [facility] 04-09-2024 16:00-0400 Respiratory rate 18 /min Tan Ke [facility] 04-09-2024 16:00-0400 SaO2% (BldA) [Mass fraction] 95 % Tan Ke [facility] 04-09-2024 16:00-0400 Systolic blood pressure 152 mm[Hg] Tan Ke [facility] 04-09-2024 15:00-0400 Diastolic blood pressure 86 mm[Hg] Tan Ke [facility] 04-09-2024 15:00-0400 Heart rate 73 /min Tan Ke [facility] 04-09-2024 15:00-0400 SaO2% (BldA) [Mass fraction] 96 % Tan Ke [facility] 04-09-2024 15:00-0400 Systolic blood pressure 142 mm[Hg] Tan Ke [facility] 04-09-2024 13:49-0400 Diastolic blood pressure 100 mm[Hg] Tan Ke [facility] 04-09-2024 13:49-0400 Heart rate 75 /min Tan Ke [facility] 04-09-2024 13:49-0400 Mean blood pressure 118 mm[Hg] Tan Dempsey [facility] 04-09-2024 13:49-0400 Respiratory rate 12 /min Tan Dempsey [facility] 04-09-2024 13:49-0400 SaO2% (BldA) [Mass fraction] 97 % Tan Dempsey [facility] 04-09-2024 13:49-0400 Systolic blood pressure 153 mm[Hg] Tan Dempsey [facility] 04-09-2024 13:27-0400 Hourly Rounding Tan Dempsey [facility] 04-09-2024 13:27-0400 Promise to Return Tan Dempsey [facility] 04-09-2024 12:52-0400 Body temperature 98.06 [degF] Tan Dempsey [facility] 04-09-2024 12:52-0400 Heart rate 78 /min Tan Dempsey [facility] 04-09-2024 12:52-0400 Respiratory rate 16 /min Tan Dempsey [facility] 04-04-2024 12:26-0400 Body temperature 97.7 [degF] [facility] 04-04-2024 12:26-0400 Diastolic blood pressure 98 mm[Hg] [facility] 04-04-2024 12:26-0400 Heart rate 92 /min [facility] 04-04-2024 12:26-0400 Respiratory rate 16 /min [facility] 04-04-2024 12:26-0400 SaO2% (BldA) [Mass fraction] 96 % [facility] 12:26-0400 Systolic blood pressure 177 mm[Hg] [facility] 12-21-2023 13:55-0400 Body height 177.8 cm Eli Bonilla DO Work Phone: [facility] 12-21-2023 13:55-0400 Body mass index (BMI) [Ratio] 35.84 kg/m2 Eli Bonilla DO Work Phone: [facility] 12-21-2023 13:55-0400 Body weight 113.31 kg Eli Bonilla DO Work Phone: [facility] 12-21-2023 13:55-0400 Diastolic blood pressure 90 mm[Hg] Eli Bonilla DO Work Phone: [facility] 12-21-2023 13:55-0400 Heart rate 76 /min Eli Bonilla DO Work Phone: [facility] 12-21-2023 13:55-0400 SaO2% (BldA) [Mass fraction] 95 % Eli Bonilla DO Work Phone: [facility] 12-21-2023 13:55-0400 Systolic blood pressure 147 mm[Hg] Eli Bonilla DO Work Phone: [facility] 10-23-2023 12:27-0400 Diastolic blood pressure 84 mm[Hg] Ronobir CLARY [facility] 10-23-2023 12:27-0400 Heart rate 115 /min Ronobir CLARY [facility] 10-23-2023 12:27-0400 Systolic blood pressure 135 mm[Hg] Ronobir CLARY [facility] 10-23-2023 12:06-0400 Hourly Rounding Ronobir CLARY [facility] 10-23-2023 12:06-0400 Promise to Return Ronobir CLARY [facility] 10-23-2023 11:55-0400 Heart rate 117 /min Ronobir CLARY [facility] 10-23-2023 11:55-0400 SaO2% (BldA) [Mass fraction] 96 % Ronobir CLARY [facility] 10-23-2023 11:54-0400 Diastolic blood pressure 84 mm[Hg] Ronobir CLARY [facility] 10-23-2023 11:54-0400 Mean blood pressure 101 mm[Hg] Ronobir CLARY [facility] 10-23-2023 11:54-0400 Systolic blood pressure 135 mm[Hg] Ronobir CLARY [facility] 10-23-2023 11:53-0400 Body temperature 98.06 [degF] Ronobir CLARY [facility] 10-23-2023 11:11-0400 Hourly Rounding Ronobir CLARY [facility] 10-23-2023 11:11-0400 Promise to Return Ronobir CLARY [facility] 10-23-2023 11:00-0400 Hourly Rounding Ronobir CLARY [facility] 10-23-2023 09:14-0400 Promise to Return Ronobir CLARY [facility] 10-23-2023 02:10-0400 Body temperature 97.7 [degF] Ronobir CLARY [facility] 10-23-2023 02:10-0400 Diastolic blood pressure 86 mm[Hg] Ronobir CLARY [facility] 10-23-2023 02:10-0400 Heart rate 75 /min Ronobir CLARY [facility] 10-23-2023 02:10-0400 Mean blood pressure 102 mm[Hg] Ronobir CLARY [facility] 10-23-2023 02:10-0400 Respiratory rate 18 /min Ronobir CLARY [facility] 10-23-2023 02:10-0400 SaO2% (BldA) [Mass fraction] 96 % Ronobir CLARY [facility] 10-23-2023 02:10-0400 Systolic blood pressure 135 mm[Hg] Ronobir CLARY [facility] 10-22-2023 20:46-0400 Heart rate 112 /min Ronobir CLARY [facility] 10-22-2023 19:00-0400 Heart rate 65 /min Ronobir CLARY [facility] 10-22-2023 19:00-0400 SaO2% (BldA) [Mass fraction] 95 % Ronobir CLARY [facility] 10-22-2023 16:42-0400 Heart rate 83 /min Ronobir CLARY [facility] 10-22-2023 16:39-0400 Body temperature 97.88 [degF] Ronobir CLARY [facility] 10-22-2023 16:39-0400 Mean blood pressure 117 mm[Hg] Ronobir CLARY [facility] 10-22-2023 11:53-0400 Heart rate 75 /min Ronobir CLARY [facility] 10-22-2023 11:52-0400 Mean blood pressure 118 mm[Hg] Ronobir CLARY [facility] 10-22-2023 11:51-0400 Body temperature 97.52 [degF] Ronobir CLARY [facility] 10-22-2023 03:00-0400 Body temperature 98.06 [degF] Ronobir CLARY [facility] 10-22-2023 03:00-0400 Heart rate 84 /min Ronobir CLARY [facility] 10-22-2023 03:00-0400 Respiratory rate 18 /min Ronobir CLARY [facility] 10-22-2023 01:40-0400 Mean blood pressure 120 mm[Hg] Ronobir CLARY [facility] 10-21-2023 22:15-0400 Blood Pressure Location Ronobir CLARY [facility] 10-21-2023 22:15-0400 Heart rate 101 /min Ronobir CLARY [facility] 10-21-2023 22:15-0400 Respiratory rate 18 /min Ronobir CLARY [facility] 10-21-2023 21:00-0400 Mean blood pressure 135 mm[Hg] Ronobir CLARY [facility] 10-21-2023 21:00-0400 Respiratory rate 21 /min Ronobir CLARY [facility] 10-21-2023 20:00-0400 Respiratory rate 8 /min Ronobir CLARY [facility] 10-21-2023 19:45-0400 Respiratory rate 12 /min Vickie MEANS [facility] 06-09-2021 06:18-0400 SaO2% (BldA) [Mass fraction] 97 % Micheal Kwok MD Work Phone: [employer] Work Phone: 06-09-2021 05:45-0400 Diastolic blood pressure 94 mm[Hg] Micheal Kwok MD Work Phone: [employer] Work Phone: 06-09-2021 05:45-0400 Systolic blood pressure 179 mm[Hg] Micheal Kwok MD Work Phone: [employer] Work Phone: 06-09-2021 05:24-0400 Respiratory rate 20 /min Micheal Kwok MD Work Phone: [employer] Work Phone: 06-09-2021 04:52-0400 Body mass index (BMI) [Ratio] 37.31 kg/m2 Micheal Kwok MD Work Phone: [employer] Work Phone: 06-09-2021 04:52-0400 Body temperature 97 [degF] Micheal Kwok MD Work Phone: [employer] Work Phone: 06-09-2021 04:52-0400 Body weight 117.94 kg Micheal Kwok MD Work Phone: [employer] Work Phone: 06-09-2021 04:52-0400 Heart rate 97 /min Micheal Kwok MD Work Phone: [employer] Work Phone: 06-07-2021 17:08-0400 Diastolic blood pressure 116 mm[Hg] Linette Tapia DO Work Phone: [employer] Work Phone: 06-07-2021 17:08-0400 Systolic blood pressure 181 mm[Hg] Linette Tapia DO Work Phone: [employer] Work Phone: 06-07-2021 17:03-0400 Body temperature 98.2 [degF] Linette Tapia DO Work Phone: [employer] Work Phone: 06-07-2021 17:03-0400 Heart rate 118 /min Linette Tapia DO Work Phone: [employer] Work Phone: 06-07-2021 17:03-0400 Respiratory rate 22 /min Linette Tapia DO Work Phone: [employer] Work Phone: 06-07-2021 17:03-0400 SaO2% (BldA) [Mass fraction] 97 % Linette Tapia DO Work Phone: [employer] Work Phone: 06-13-2019 12:56-0500 Body Temperature 98.1 [degF] Humberto [employer] [place] 06-13-2019 12:56-0500 BP Diastolic 82 mm[Hg] [facility] [place] 06-13-2019 12:56-0500 BP Systolic 151 mm[Hg] [facility] [place] 06-13-2019 12:56-0500 Pulse (Heart Rate) 62 /min [facility] [place] 06-13-2019 12:56-0500 Pulse Oximetry 97 % [facility] [place] 06-13-2019 12:56-0500 Respiratory Rate 16 /min Humberto [employer] [place] 06-13-2019 05:21-0500 BMI (Body Mass Index) 28.15 kg/m2 [facility] [place] 06-13-2019 05:21-0500 Body weight 89 kg Humberto [facility]s [facility] , [place] 06-13-2019 01:30-0500 Height 177.8 cm Humberto Downs [facility] , [place] 06-07-2019 22:16-0400 BP Diastolic 99 mm[Hg] [facility] [place] 06-07-2019 22:16-0400 BP Systolic 172 mm[Hg] Rodrick [facility] , [place] 06-07-2019 22:16-0400 Pulse Oximetry 96 % Rodrick [facility] , [place] 06-07-2019 20:11-0400 Pulse (Heart Rate) 78 /min Rodrick [facility], [place] 06-07-2019 20:05-0400 Respiratory Rate 18 /min Rodrick [facility], [place] 06-07-2019 18:00-0400 Body Temperature 97.59 [degF] Rodrick [facility], [place] 06-07-2019 12:46-0400 Body Temperature 98.8 [degF] Kailash Rogers [facility], [place] 06-07-2019 12:46-0400 BP Diastolic 84 mm[Hg] [facility] [place] 06-07-2019 12:46-0400 BP Systolic 137 mm[Hg] Kailash VarmaUniversity [facility], [place] 06-07-2019 12:46-0400 Pulse (Heart Rate) 64 /min Kailash Montanez [facility], [place] 06-07-2019 12:46-0400 Pulse Oximetry 94 % Kailash Rogers [facility], [place] 06-07-2019 12:46-0400 Respiratory Rate 18 /min Kailash Rogers [facility], [place] 06-07-2019 08:33-0400 Height 177.8 cm Kailash Rogers [facility], [place] 06-07-2019 02:59-0400 BMI (Body Mass Index) 29.27 kg/m2 [facility] [place] 06-07-2019 02:59-0400 Body weight 92.53 kg [facility] [place] Encounters Encounter Date Encounter Type Care Provider Facility Start: 01-16-2025 End: 01-16-2025 Emergency department patient visit Hitesh Schwartz [facility] Start: 07-30-2024 End: 07-30-2024 Admission to same day surgery center Tan Shannon [facility] Start: 07-30-2024 End: 07-30-2024 ambulatory Tan Shannon Facility:[facility] Start: 07-26-2024 End: 07-26-2024 ambulatory Tan Shannon Facility:[facility] Start: 07-26-2024 End: 07-26-2024 Patient encounter procedure Tan Shannon [facility] [place] Start: 07-19-2024 ambulatory Tan Shannon Facility:[facility] Start: 07-17-2024 End: 07-17-2024 Emergency department patient visit Jamarcus Florentin Facility:[facility] Start: 04-09-2024 End: 04-09-2024 Emergency department patient visit Tan Dempsey [facility] Start: 04-04-2024 End: 04-04-2024 Emergency department patient visit John Saldana [facility] Start: 12-22-2023 End: 12-22-2023 Telephone encounter Eli Bonilla DO Work Phone: [facility] Comment on above: Sleep Lab (COMP) Start: 12-21-2023 End: 12-21-2023 ambulatory ELI BONILLA [facility] Start: 12-21-2023 End: 12-21-2023 Office outpatient new 45 minutes Eli Bonilla DO Work Phone: [facility] Comment on above: BLANCA (obstructive sle ep apnea) (Primary Dx); SOB (shortness of breath); Chronic cough; Centrilobular emphysema ([facility]-H[facility]); Pulmonary nodule Start: 10-30-2023 End: 10-31-2023 ambulatory ELI Wise CHAD [facility] Start: 10-21-2023 End: 10-23-2023 Evaluation and management of inpatient Vickie MEANS Facility:[facility] Start: 10-21-2023 End: 10-23-2023 Evaluation and management of inpatient Vickie MEANS [facility] Start: 06-09-2021 End: 06-09-2021 Emergency department patient visit MIHCEAL KWOK [facility] Start: 06-09-2021 End: 06-09-2021 Emergency department patient visit Micheal Kwok MD Work Phone: [facility] ED Comment on above: Cough (Primary Dx); Shortness of breath; Essential hypertension Start: 06-07-2021 End: 06-07-2021 Emergency department [facility] Trin[facility] TAPIA [facility] Start: 06-07-2021 End: 06-07-2021 Emergency department patient visit Linette Trinidad Tapia Work Phone: [facility] ED Comment on above: Acute upper respirat ory infection (Primary Dx) Start: 02-11-2021 End: 02-11-[address] TAMIKO CHRISTIANSEN Facility: Start: 06-08-2019 End: 06-13-2019 Evaluation and management of inpatient [facility] Start: 06-07-2019 End: 06-13-2019 Evaluation and management of inpatient Humberto Downs Work Phone: [facility] Comment on above: Surgery, elective (P rimary Dx) Start: 06-07-2019 End: 06-07-2019 Emergency department patient visit Rodrick Galdamez [facility] ED Comment on above: Choledocholithiasis (Primary Dx) Start: 06-06-2019 End: 06-07-2019 Evaluation and management of inpatient Kailash Rogers [facility] Comment on above: Cholecystitis (Prima ry Dx); Elevated LFTs Procedures Date Procedure Procedure Detail Performing Clinician Start: 07-30-2024 Repair of umbilical hernia Tan Shannon Start: 06-09-2021 PANCHO-Kuldeep, RAPID Micheal Kwok MD Work Phone: Start: [...] Linette Tapia DO Work Phone: Start: 06-07-2021 ANGELAID-Kuldeep, RAPID Urszula Tapia DO Work Phone: Start: 06-13-2019 DISCHARGE PATIENT ARMAAN LEVI Start: 06-13-2019 INCENTIVE SPIROMETRY RT ARMAAN LEVI Start: 06-13-2019 INCENTIVE SPIROMETRY RT ARMAAN LEVI Start: 06-13-2019 PULSE OXIMETRY, CONTINUOUS ARMAAN MULLINSON Start: 06-13-2019 INCENTIVE SPIROMETRY RT ARMAAN LEVI Start: 06-13-2019 INCENTIVE SPIROMETRY RT ARMAAN AMITA Start: 06-13-2019 INITIATE OXYGEN THER APY PROTOCOL ARMAAN LEVI Start: 06-13-2019 PULSE OXIMETRY, CONTINUOUS ARMAAN LEVI Start: 06-13-2019 DIET GENERAL ARMAAN SCHULER EMELIA Start: 06-13-2019 Assay of amylase ARMAAN LEVI Start: 06-13-2019 Assay of lipase ARMAAN SNEHAL Start: 06-13-2019 Assay of magnesium KATI LEVI [...] LEVI Start: 06-12-2019 PULSE OXIMETRY, CONTINUOUS ARMAAN MULLINSON Start: 06-12-2019 Assay of magnesium KATI LEVI Start: 06-12-2019 Basic metabolic pane l calcium total ARMAAN MULLINSON Start: 06-12-2019 Blood count complete auto&auto difrntl wbc ARMAAN LEVI Start: 06-12-2019 PULSE OXIMETRY, CONTINUOUS ARMAAN LEVI Start: 06-12-2019 Assay of magnesium Wiss am Bleibel Work Phone: Start: 06-12-2019 Basic metabolic pane l calcium total Richardsam Bleibel Work Phone: Start: 06-12-2019 Blood count complete auto&auto difrntl wbc Wissam Bleibel Work Phone: Start: 06-12-2019 INTAKE AND OUTPUT ARMAAN LEVI Start: 06-12-2019 PULSE OXIMETRY, CONTINUOUS ARMAAN MULLINSON Start: 06-11-2019 PULSE OXIMETRY, CONTINUOUS ARMAAN MULLINSON Start: 06-11-2019 Cmbn ndsc cathj biliary&pncrtc ductal sys rs&i ARMAAN MULLINSON Start: 06-11-2019 FLUORO FOR SURGICAL PROCEDURES ARMAAN LEVI Start: 06-11-2019 TRANSFER PATIENT ARMAAN LEVI Start: 06-11-2019 PULSE OXIMETRY, CONTINUOUS ARMAAN MULLINSON Start: 06-11-2019 Cmbn ndsc cathj biliary&pncrtc ductal sys rs&i Wissam Bleibel Work Phone: Start: 06-11-2019 FLUORO FOR SURGICAL PROCEDURES Wissam Bleibel Work Phone: Start: 06-11-2019 End: 06-11-2019 Ercp dx collection specimen brushing/washing Wissam Bleibel Work Phone: Start: 06-11-2019 PULSE OXIMETRY, CONTINUOUS ARMAAN AMITA Start: 06-11-2019 INITIATE OXYGEN THER APY PROTOCOL ARMAAN AMITA Start: 06-11-2019 PULSE OXIMETRY, CONTINUOUS ARMAAN AMITA Start: 06-11-2019 Assay of amylase ARMAAN AMITA Start: 06-11-2019 Assay of lipase ARMAAN H UTCHESON Start: 06-11-2019 Assay of magnesium KATI Tyrone AMITA Start: 06-11-2019 Basic metabolic pane l calcium total ARMAAN AMITA Start: 06-11-2019 Blood count complete auto&auto difrntl wbc ARMAAN AMITA Start: 06-11-2019 Lipid panel ARMAAN GANGA HESON Start: 06-11-2019 PULSE OXIMETRY, CONTINUOUS ARMAAN [...] Phone: Start: 06-10-2019 Assay of lipase Heather Friedman mayurmurali Work Phone: Start: 06-10-2019 Blood count complete [...] Phone: Start: 06-09-2019 Assay of magnesium Angelo Rubi Work Phone: Start: 06-09-2019 Assay of phosphorus inorganic Joyce Rubi Work Phone: Start: 06-09-2019 Assay of triglycerides [...] Start: 06-08-2019 PLACE INTERMITTENT PNEUMATIC COMPRESSION DEVICE [employer] Start: 06-08-2019 PT EVAL AND TREAT ARMAAN AMITA Start: 06-08-2019 PULSE OXIMETRY SPOT CHECK ARMAAN AMITA Start: 06-08-2019 PULSE OXIMETRY, CONTINUOUS ARMAAN LEVI [...] count complete auto&auto difrntl wbc Margarito P Kuivinen Work Phone: Start: 06-07-2019 Blood count complete automated Margarito P Kuivinen Work Phone: Start: 06-06-2019 PULSE OXIMETRY SPOT [...] Ct abdomen & pelvis w/contrast material Kailash Friedman Sue Start: 06-06-2019 Assay of lipase Kailash Friedman Sue Start: 06-06-2019 Blood count complete auto&auto difrntl wbc Kailash Friedman Sue Start: 06-06-2019 Comprehensive metabo lic panel Kailash Friedman uSe Start: 06-06-2019 Prothrombin time Robi A John Work Phone: Start: 06-06-2019 Thromboplastin time partial plasma/whole blood Robi A John Work Phone: Start: 06-06-2019 Urnls dip stick/tabl et reagent auto microscopy Kailash Friedman Sue Start: 08-07-2018 Cholecystectomy Tan betancourt Comment on above: Newman Appendectomy with drainage R onobir CLARY Blood glucose monito ring equipment (physical object) Tan Shannon Comment on above: Right arm Laparoscopic cholecystostomy Tan Shannon Spinal arthrodesis Rontammy KEITHANGELITO Comment on above: L4 to L5 Plan of Treatment Date Care Activity Detail Author Start: 09-06-2026 DTaP,Tdap and Td Vac cines (2 - Td or Tdap) DTaP,Tdap and Td Vaccines (2 - Td or Tdap) [employer] Start: 09-06-2026 DTaP/Tdap/Td vaccine (2 - Td or Tdap) DTaP/Tdap/Td vaccine (2 - Td or Tdap) [employer] Work Phone: Start: 09-06-2026 DTaP/Tdap/Td vaccine (2 - Td) DTaP/Tdap/Td vaccine (2 - Td) [place] Start: 12-20-2024 Adult BMI Screening Adult BMI Screen ing [facility] Start: 12-20-2024 Tobacco Screening Tobacco Screening [facility] Start: 06-11-2024 Lipid panel Lipid screen [facility] Work Phone: Start: 04-25-2024 End: 04-25-2024 Patient encounter procedure 04/25/2024 2:30 PM EDT Office Visit [facility] [address] [place] [phone] Eli Bonilla, DO [address] [phone] [facility] Start: 04-07-2024 Influenza vaccination Influenza Vacc ine [facility] Start: 12-21-2023 End: 12-20-2024 CT Chest WO contrast CT chest without contrast Imaging Routine Chronic cough Pulmonary nodule Expected: 12/21/2023, Expires: 12/20/2024 [facility] Comment on above: Expected: 12/21/2023 , Expires: 12/20/2024 Start: 06-09-2022 Creatinine measurement Creatinine mo [facility] [employer] Phone: Start: 06-09-2022 Potassium monitoring Potassium monit [facility] Phone: Start: 04-07-2021 Influenza vaccination Flu vaccine (# 1) [facility] [employer] Phone: Start: 06-13-2020 Potassium monitoring Potassium monit [facility] Phone: Start: 06-12-2020 Creatinine measurement Creatinine mo [facility] [employer] Phone: Start: 06-11-2020 Creatinine monitoring Creatinine [place], [place] Start: 06-11-2020 Potassium monitoring Potassium monit [place] Start: 06-07-2020 Creatinine monitoring Creatinine [place] Start: 06-07-2020 Potassium monitoring Potassium monit [place] Start: 06-06-2020 Creatinine monitoring Creatinine mon itoring [place] Start: 06-06-2020 Potassium monitoring Potassium monit [place] Start: 04-07-2019 Influenza vaccination Flu vaccine (# 1) [place] Start: 1999 Adult BMI Follow Up Plan Adult BMI F ollow Up Plan [facility] Start: 1999 Diabetic foot examination Diabetic F oot Exam [facility] Start: 1996 HIV screen HIV screen [place], [place] Start: 1996 HIV screening HIV screen [facility] Work Phone: Start: 1994 Varicella Vaccine (1 of 2 - 13+ 2-dose series) Varicella Vaccine (1 of 2 - 13+ 2-dose series) [place] Start: 1993 COVID-19 Vaccine (1) COVID-19 Vaccin e (1) [facility] Work Phone: Start: 1993 Depression Screening Depression Scre [facility] Start: 1987 Pneumococcal 0-64 ye ars Vaccine (1 of 1 - PPSV23) Pneumococcal 0-64 years Vaccine (1 of 1 - PPSV23) [place] Start: 1987 Pneumococcal 0-64 ye ars Vaccine (1 of 2 - PPSV23) Pneumococcal 0-64 years Vaccine (1 of 2 - PPSV23) [facility] Work Phone: Start: 1982 Varicella vaccine (1 of 2 - 2-dose childhood series) Varicella vaccine (1 of 2 - 2-dose childhood series) [facility] [employer] Phone: Start: 1981 Glaucoma screening Diabetic Op hthalmology Exam [facility] Start: 1981 Tobacco Counseling Tobacco Counselin g [facility] End: 12-20-2024 Alpha 1 antitrypsin targeting genotyping Alpha 1 antitrypsin targeting genotyping Lab Routine Chronic cough Centrilobular emphysema (CMS-HCC) 1 Occurrences starting 12/21/2023 until 12/20/2024 [facility] Comment on above: 1 Occurrences starti ng 12/21/2023 until 12/20/2024 End: 12-20-2024 Uspsi-[id number] Lrbxq-8-fquivlnfveg Lab Routine Chronic cough Centrilobular emphysema (CMS-HCC) 1 Occurrences starting 12/21/2023 until 12/20/2024 [facility] Comment on above: 1 Occurrences starti ng 12/21/2023 until 12/20/2024 Culture Blood #1 [facility] [place] EKG 12 Lead EKG 12 Lead ECG STAT 06/09/2021 5:11 AM EDT [facility] Work Phone: End: 12-20-2024 Eosinophil count Eosinophil count Lab Routine Chronic cough Centrilobular emphysema (CMS-HCC) 1 Occurrences starting 12/21/2023 until 12/20/2024 [facility] Comment on above: 1 Occurrences starti ng 12/21/2023 until 12/20/2024 End: 06-06-2019 Hepatitis Panel, Acute Hepatitis Panel, Acute Lab Add-On One Time for 1 Occurrences starting 06/06/2019 until 06/06/[address] [facility]: One Time for 1 Occur rences starting 06/06/2019 until 06/06/2019 Hepatitis Panel, Acute Hepatitis Panel, Acute Lab Add-On 06/06/2019 6:[address] [facility] [place] End: 12-20-2024 Immunoglobulins Immunoglobulins Lab Routine Chronic cough Centrilobular emphysema ([facility]-HCC) 1 Occurrences starting 12/21/2023 until 12/20/2024 [facility] Comment on above: 1 Occurrences starti ng 12/21/2023 until 12/20/2024 Incentive spirometry Incentive s pirometry Respiratory Care Routine Every 2hr while awake until discontinued starting 06/12/[address] [facility] Comment on above: Every 2hr while awak e until discontinued starting 06/12/2019 Initiate Oxygen Ther apy Protocol [facility] [place] Comment on above: Daily until disconti nued starting 06/06/2019 Daily until disconti nued starting 06/08/2019 Daily until disconti nued starting 06/12/2019 End: 12-20-2024 Polysomnography 4 or more parameters with PAP titration Polysomnography 4 or more parameters with PAP titration Sleep Center Routine BLANCA (obstructive sleep apnea) 1 Occurrences starting 12/21/2023 until 12/20/2024 [employer] Comment on above: 1 Occurrences starti ng 12/21/2023 until 12/20/2024 End: 12-20-2024 PSG Diagnostic PSG Diagnostic [facility] Routine BLANCA (obstructive sleep apnea) 1 Occurrences starting 12/21/2023 until 12/20/2024 [employer] Work Phone: Comment on above: 1 Occurrences starti ng 12/21/2023 until 12/20/2024 End: 06-12-2019 Pulse Oximetry Spot Check Pulse Oximetry Spot Check Respiratory Care Routine One Time for 1 Occurrences starting 06/12/2019 until 06/12/2019 [employer] [place] Comment on above: One Time for 1 Occur rences starting 06/12/2019 until 06/12/2019 Pulse oximetry, continuous Pulse oximetry, continuous Respiratory Care Routine Every 4hr until discontinued starting 06/08/2019 [employer] [place] Comment on above: Every 4hr until disc ontinued starting 06/08/2019 End: 12-20-2024 Respiratory allergy panel Respiratory allergy panel Lab Routine Chronic cough Centrilobular emphysema ([facility]) 1 Occurrences starting 12/21/2023 until 12/20/2024 [facility] Comment on above: 1 Occurrences starti ng 12/21/2023 until 12/20/2024 Surgical Pathology Surgical Path ology Lab Routine ONE TIME for 1 Occurrences starting 06/12/2019 [employer] [facility] [place] Comment on above: ONE TIME for 1 Occur rences starting 06/12/2019 End: 06-13-2019 Surgical Pathology Surgical Pathology Lab Routine Once for 1 Occurrences starting 06/13/2019 until 06/13/[address] [facility] [address] [facility] [place] Comment on above: Once for 1 Occurrenc es starting 06/13/2019 until 06/13/2019 Immunizations Immunization Date Immunization Notes Care Provider Verónica escalante 04-21-2017 influenza virus vaccine, unspecified formulation Eli Bonilla DO Work Phone: [facility] 09-06-2016 tetanus toxoid, reduced diphtheria toxoid, and acellular pertussis vaccine, adsorbed Kailash Hartmannzpatrick [facility] [place] [place] Payers Date Payer Category Payer Medicaid [id number] 2024 Medicaid [id number] 2024 Self-pay 2023 Private Health Insurance [id number] 2023 Private Health Insurance [facility] PLUS [id number] 2023-Present [phone] [address] [address] [place] [address] [id number] 2021 Private Health Insurance [id number] 2018 Unknown [employer] [address] xxxxxxxxxxxx 2018-Present [phone] [address] [place] [address] xxxxxxxxxxxx [id number] 2018 Unknown [id number] 1981 Unknown [id number] [id number] .177 1981 Unknown [id number] 2.16.840.1.051253.3.579.2 .593 1981 Unknown [id number] 2.16.840.1.028032.3.579.2 .173 1981 Unknown [id number] 2.16.840.1.969146.3.579.2 .173 1981 Unknown [id number] 2.16.840.1.655280.3.579.2 .1286 1981 Unknown [id number] 2.16.840.1.666981.3.579.2 .1286 1981 Unknown [id number] 2.16.840.1.195217.3.579.2 .1286 1981 Unknown [id number] 2.16.840.1.119901.3.579.2 .727 1981 Unknown [id number] 2.16.840.1.534984.3.579.2 .727 1981 Unknown [id number] 2.16.840.1.127453.3.579.2 .727 1981 Unknown [id number] 2.16.840.1.926407.3.579.2 .727 1981 Unknown [id number] 2.16.840.1.087957.3.579.2 .727 1981 Unknown [id number] 2.16.840.1.089564.3.579.2 .727 1981 Unknown [id number] 2.16.840.1.966753.3.579.2 .727 1981 Unknown [id number] 2.16.840.1.989616.3.579.2 .727 1981 Unknown [id number] 2.16.840.1.853856.3.579.2 .727 1981 Unknown [id number] 2.16.840.1.249102.3.579.2 .727 1981 Unknown [id number] 2.16.840.1.433457.3.579.2 .727 Social History Date Type Detail Facility Start: 08-07-1993 End: 12-21-2023 Tobacco smoking status WAIS Current every day smoker [facility] Start: 08-07-1993 History of tobacco use Cigarette Smo ker [place] Start: 06-06-2019 End: 09-16-2020 Cigarettes smoked current (pack per day) - Reported [place] Start: 06-06-2019 End: 09-16-2020 Alcohol intake Yes Gonzalez Uriel [facility] Start: 04-25-2013 Alcohol Comment very rarely Lisseth Sherman [facility] CATHERINE Start: 1980 Sex Assigned At Not on file [facility] Start: 07-01-2019 End: 12-21-2023 Tobacco use and exposure Never used [employer] Start: 07-01-2019 End: 06-09-2021 Alcohol intake Current drinker of alcohol (finding) [employer] Work Phone: Exposure to SARS-CoV -2 (event) Not sure [employer] Start: 10-21-2023 Tobacco smoking status Heavy t obacco smoker (finding) [facility] Start: 07-26-2024 Tobacco smoking status Light t obacco smoker (finding) [facility] [place] Start: 12-21-2023 Alcoholic beverage intake Lifetime non-drinker (finding) [facility] Unknown [email or web address] [facility] Sexual Orientation [facility] Start: 10-21-2023 Sex Male (finding) [facility] Medical Equipment Procedure Code Equipment Code Equipment Origin al Text Equipment Identifier Dates 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 [employer] Ster Pk/6 [id number] Start: 06-12-2019 HERNIA REPAIR, R OBOT ASSISTED Tan Shannon MD 07/30/24 Non Biological Abdomen {[id number] {20}02 FDA Start: 07-30-2024 Functional Status Date Assessment Result Facility 07-26-2024 Functional Status No [facility] 04-09-2024 Functional Status N/A [facility] 04-04-2024 Functional Status N/A [facility] 10-21-2023 Functional Status No [facility] 10-21-2023 Functional Status [facility] Clinical Notes 06-07-2021 to 01-16-2025 Note Date & Type Note Facility 01-16-2025 Hospital Discharg e instructions Patient Education 01/16/2025 21:23:47 Skin Abscess Skin Abscess A skin abscess is an infected area on or under your skin. It contains pus and other material. An abscess may also be called a furuncle, carbuncle, or boil. It is often the result of an infection caused by bacteria. An abscess can occur in or on almost any part of your body. Sometimes, an abscess may break open (rupture) on its own. In most cases, it will keep getting worse unless it is treated. An abscess can cause pain and make you feel ill. An untreated abscess can cause infection to spread to other parts of your body or your bloodstream. The abscess may need to be drained. You may also need to take antibiotics. What are the causes? An abscess occurs when germs, like bacteria, pass through your skin and cause an infection. This may be caused by: A scrape or cut on your skin. A puncture wound through your skin, such as a needle injection or insect bite. Blocked oil or sweat glands. Blocked and infected hair follicles. A fluid-filled sac that forms beneath your skin (sebaceous cyst) and becomes infected. What increases the risk? You may be more likely to develop an abscess if: You have problems with blood circulation, or you have a weak body defense system (immune system). You have diabetes. You have dry and irritated skin. You get injections often or use IV drugs. You have a foreign body in a wound, such as a splinter. You smoke or use tobacco products. What are the signs or symptoms? Symptoms of this condition include: A painful, firm bump under the skin. A bump with pus at the top. This may break through the skin and drain. Other symptoms include: Redness and swelling around the abscess. Warmth or tenderness. Swelling of the lymph nodes (glands) near the abscess. A sore on the skin. How is this diagnosed? This condition may be diagnosed based on a physical exam and your medical history. You may also have tests done, such as: A test of a sample of pus. This may be done to find what is causing the infection. Blood tests. Imaging tests, such as an ultrasound, CT scan, or MRI. How is this treated? A small abscess that drains on its own may not need to be treated. Treatment for larger abscesses may include: Moist heat or a heat pack applied to the area a few times a day. Incision and drainage. This is a procedure to drain the abscess. Antibiotics. For a severe abscess, you may first get antibiotics through an IV and then change to antibiotics by mouth. Follow these instructions at home: Medicines Take [id number] and prescription medicines only as told by your provider. If you were prescribed antibiotics, take them as told by your provider. Do not stop using the antibiotic even if you start to feel better. Abscess care If you have an abscess that has not drained, apply heat to the affected area. Use the heat source that your provider recommends, such as a moist heat pack or a heating pad. ?Place a towel between your skin and the heat source. ?Leave the heat on for 20 30 minutes at a time. ?If your skin turns bright red, remove the heat right away to prevent morel. The risk of morel is higher if you cannot feel pain, heat, or cold. Follow instructions from your provider about how to take care of your abscess. Make sure you: ?Cover the abscess with a bandage (dressing). ?Wash your hands with soap and water for at least 20 seconds before and after you change the dressing or gauze. If soap and water are not available, use hand labor/excavator. ?Change your dressing or gauze as told by your provider. Check your abscess every day for signs of an infection that is getting worse. Check for: ?More redness, swelling, pain, or tenderness. ?More fluid or blood. ?Warmth. ?More pus or a worse smell. General instructions To avoid spreading the infection: ?Do not share personal care items, towels, or hot tubs with others. ?Avoid making skin contact with other people. ?Be careful when getting rid of used dressings, wound packing, or any drainage from the abscess. Do not use any products that contain nicotine or tobacco. These products include cigarettes, chewing tobacco, and vaping devices, such as e-cigarettes. If you need help quitting, ask your provider. Do not use any creams, ointments, or liquids unless you have been told to by your provider. Contact a health care provider if: You see redness that spreads quickly or red streaks on your skin spreading away from the abscess. You have any signs of worse infection at the abscess. You vomit every time you eat or drink. You have a fever, chills, or muscle aches. The cyst or abscess returns. Get help right away if: You have severe pain. You make less pee (urine) than normal. This information is not intended to replace advice given to you by your health care provider. Make sure you discuss any questions you have with your health care provider. Document Revised: 03/08/2023 Document Reviewed: 03/08/2023 [employer]woon Editions Patient Education 2023 [employer]. Follow Up Care 01/16/2025 20:39:45 With:Tan Lockharttyrone Address:Unknown When:01/19/2025 21:19:43 Comments:Follow-up with wound care physician for repeat evaluation and excision if it truly is a cyst. [facility] 01-16-2025 Note ED Patient Education Note Infectious Disease Skin Abscess A skin abscess is an infected area on or under your skin. It contains pus and other material. An abscess may also be called a furuncle, carbuncle, or boil. It is often the result of an infection caused by bacteria. An abscess can occur in or on almost any part of your body. Sometimes, an abscess may break open (rupture) on its own. In most cases, it will keep getting worse unless it is treated. An abscess can cause pain and make you feel ill. An untreated abscess can cause infection to spread to other parts of your body or your bloodstream. The abscess may need to be drained. You may also need to take antibiotics. What are the causes? An abscess occurs when germs, like bacteria, pass through your skin and cause an infection. This may be caused by: ??? A scrape or cut on your skin. ??? A puncture wound through your skin, such as a needle injection or insect bite. ??? Blocked oil or sweat glands. ??? Blocked and infected hair follicles. ??? A fluid-filled sac that forms beneath your skin (sebaceous cyst) and becomes infected. What increases the risk? You may be more likely to develop an abscess if: ??? You have problems with blood circulation, or you have a weak body defense system (immune system). ??? You have diabetes. ??? You have dry and irritated skin. ??? You get injections often or use IV drugs. ??? You have a foreign body in a wound, such as a splinter. ??? You smoke or use tobacco products. What are the signs or symptoms? Symptoms of this condition include: ??? A painful, firm bump under the skin. ??? A bump with pus at the top. This may break through the skin and drain. Other symptoms include: ??? Redness and swelling around the abscess. ??? Warmth or tenderness. ??? Swelling of the lymph nodes (glands) near the abscess. ??? A sore on the skin. How is this diagnosed? This condition may be diagnosed based on a physical exam and your medical history. You may also have tests done, such as: ??? A test of a sample of pus. This may be done to find what is causing the infection. ??? Blood tests. ??? Imaging tests, such as an ultrasound, CT scan, or MRI. How is this treated? A small abscess that drains on its own may not need to be treated. Treatment for larger abscesses may include: ??? Moist heat or a heat pack applied to the area a few times a day. ??? Incision and drainage. This is a procedure to drain the abscess. ??? Antibiotics. For a severe abscess, you may first get antibiotics through an IV and then change to antibiotics by mouth. Follow these instructions at home: Medicines ??? Take oheo-njy-zycrvmh and prescription medicines only as told by your provider. ??? If you were prescribed antibiotics, take them as told by your provider. Do not stop using the antibiotic even if you start to feel better. Abscess care ??? If you have an abscess that has not drained, apply heat to the affected area. Use the heat source that your provider recommends, such as a moist heat pack or a heating pad. ? Place a towel between your skin and the heat source. ? Leave the heat on for 20?30 minutes at a time. ? If your skin turns bright red, remove the heat right away to prevent morel. The risk of morel is higher if you cannot feel pain, heat, or cold. ??? Follow instructions from your provider about how to take care of your abscess. Make sure you: ? Cover the abscess with a bandage (dressing). ? Wash your hands with soap and water for at least 20 seconds before and after you change the dressing or gauze. If soap and water are not available, use hand labor/excavator. ? Change your dressing or gauze as told by your provider. ??? Check your abscess every day for signs of an infection that is getting worse. Check for: ? More redness, swelling, pain, or tenderness. ? More fluid or blood. ? Warmth. ? More pus or a worse smell. General instructions ??? To avoid spreading the infection: ? Do not share personal care items, towels, or hot tubs with others. ? Avoid making skin contact with other people. ? Be careful when getting rid of used dressings, wound packing, or any drainage from the abscess. ??? Do not use any products that contain nicotine or tobacco. These products include cigarettes, chewing tobacco, and vaping devices, such as e-cigarettes. If you need help quitting, ask your provider. ??? Do not use any creams, ointments, or liquids unless you have been told to by your provider. Contact a health care provider if: ??? You see redness that spreads quickly or red streaks on your skin spreading away from the abscess. ??? You have any signs of worse infection at the abscess. ??? You vomit every time you eat or drink. ??? You have a fever, chills, or muscle aches. ??? The cyst or abscess returns. Get help right away if: ??? You have severe pain. ??? You akilah (more content not included)... [facility] 01-16-2025 Evaluation + Plan note Extrac caitlyn from: Title:ED Note Author:Hitesh Schwartz DO Date: Abscess (L02.91: Cutaneous a bscess, unspecified) Orders: cephalexin, 500 mg = 1 cap(s), Cap, Oral, Once, Stop date 01/16/25 21:19:00 EDT, STAT, Start date 01/16/25 21:19:00 EDT, 01/16/25 21:19:00 EDT cephalexin, 500 mg = 1 cap(s), Oral, QID, X 7 day(s), # 28 cap(s), Refills(s) 0, Pharmacy: [facility]/pharmacy #[id number], 177.8, cm, 01/16/25 20:48:00 EDT, Height/Length Dosing, 113.8, kg, 01/16/25 20:48:00 EDT, Weight Dosing doxycycline, 100 mg = 1 cap(s), Cap, Oral, Once, Stop date 01/16/25 21:19:00 EDT, STAT, Start date 01/16/25 21:19:00 EDT doxycycline, 100 mg = 1 tab(s), Oral, q12hr, X 7 day(s), # 14 tab(s), Refills(s) 0, Pharmacy: [facility]/pharmacy #[id number], 177.8, cm, 01/16/25 20:48:00 EDT, Height/Length Dosing, 113.8, kg, 01/16/25 20:48:00 EDT, Weight Dosing [facility] 12-26-2024 NoteProgress Note-Physician Patient: DEVON MATHEW Age: 44 years Sex: [...] II diabetes mellitus uncontrolled / SNOMED CT 9595235731 / Confirmed Smoker / SNOMED CT 303680472 / Confirmed Added secondary to documentation in Social History. Pulmonary emphysema / SNOMED CT 101500439 / Confirmed Obesity due to excess calories / SNOMED CT 2955588859 / Confirmed Incisional hernia / SNOMED CT 907946905 / Confirmed HTN (hypertension) / SNOMED CT 3824166398 / Confirmed Tobacco use / SNOMED CT 0413406407 / Confirmed BMI 38.0-38.9,adult / SNOMED CT 757518666 / Confirmed Acute exacerbation of chronic obstructive airways disease (COPD) / SNOMED CT 6359253853 / Confirmed Resolved: Hypertension / SNOMED CT 33460042 Resolved: Diabetes mellitus type 1 / SNOMED CT 884154647 Resolved: COPD - Chronic obstructive pulmonary disease / SNOMED CT 152947201 Histories Procedure history: Cholecystectomy (55400256) on 08/07/2018 at 38 Years. Comments: 07/26/2024 8:40 NAYELI Reid MA, Radha Newman Spinal fusion ([id number]). Comments: 10/21/2023 23:16 GARETT Sarah RN, Gabriela Coleman L4 to L5 Appendectomy with drainage (09962067). Laparoscopic cholecystostomy (Gall Bladder removal) (5177025254). Blood glucose monitoring equipment (766812125). Comments: 07/26/2024 8:43 NAYELI Reid MA Radha Right arm Social History Social & Psychosocial Habits Alcohol 07/26/2024 Risk Assessment: Denies Alcohol Use Substance Abuse 07/26/2024 Risk Assessment: Denies Substance Abuse Tobacco 07/26/2024 Risk Assessment: High Risk 07/26/2024 Tobacco Use: 4 or less cigarettes(less . Physical Examination Airway: Mallampati classification: II (soft palate, fauces, uvula visible). Distance: Teeth are in poor condition with many needing muslim. Patient educated on risk of further damage and does wish to proceed given those risk.. Respiratory: adequate air exchange. Cardiovascular: Regular rhythm. Plan [place] [employer]esthesi[employer] (ASA) physical status classification: Class III. Anesthetic Preoperative Plan: Anesthesia General.[facility] Comment on above:Result Comment: Electronically Signed By: Rodrick Guaman Jr, DO\.br\Date and Time Signed: 08/01/24 12:39 [id number] NoteProgress Note-Physician Patient: DEVON MATHEW Age: 44 years Sex: Male : 1980 Associated Diagnoses: None Author: Rodrick Guaman Jr, DO Postoperative Information Postoperative disposition: Postoperative disposition: To PACU. Optimetrix number: Optimetrix number [id number]. Anesthetic utilized: General. Health Status Allergies: Allergic [...] Discharge when meets criteria ( To home ).[facility]Result Comment: Electronically Signed By: Rodrick Guaman Jr, DO\.br\Date and Time Signed: 08/01/24 12:39 EST 07-30-2024 [...] Follow these instructions at home: Medicines Take bxxm-xix-rqcrnva and prescription medicines only as told by your health care provider. Ask your health care provider if the medicine prescribed to you: ?Requires you to avoid driving or using machinery. ?Can cause constipation. You may need to take these actions to prevent or treat constipation: ?Drink enough fluid to keep your urine pale yellow. ?Take mwdn-xul-bpjcwmg or prescription medicines. ?Eat foods that are [...] and water are not available, use hand labor/excavator. ?Change your dressing as told by your [...] your health care provider approves. Ask your healthcare provider if you may take showers. You [...] provider. Document Revised: 03/12/2021 Document Reviewed: 03/12/2021 [employer] Patient Education 2023 [employer]. 07/30/2024 11:43:31 Post Op Patient Instructions - FT (CUSTOM) Follow Up Care 07/26/2024 09:07:07 With:Tan Shannon Address: [address] [phone] Business (1) When: Unknown Comments:Appointment has already been scheduled [facility] 12-24-2024 NoteH&P Update History and Physical Update H&P Reviewed. [...] Tab, 90 mg= 1 tab(s), Oral, Daily [place] 325 mg-5 mg oral tablet, 1 tab(s), [...] pack)/day in last 30 days Tobacco Use:., 07/26/2024[facility]12[facility] NotePatient Education - Text Gastroenterology Laparoscopic Ventral Hernia [...] these instructions at home: Medicines ??? Take hhcb-ofc-hdyzdij and prescription medicines only as told by your health care provider. ??? Ask your health care provider if the medicine prescribed to you: ? Requires you to avoid driving or using machinery. ? Can cause constipation. You may need to take these actions to prevent or treat constipation: ? Drink enough fluid to keep your urine pale yellow. ? Take wtdb-lpm-vqfghhf or prescription medicines. ? Eat foods that [...] and water are not available, use hand labor/excavator. ? Change your dressing as told by your health care provider. ? Leave stitches (sutures), skin glue, or adhesive strips in place. These skin closures may need tostay in place for 2 weeks or longer. If adhesive strip edges start to loosen and curl up, you may trim the loose edges. Do not remove adhesive strips completely unless your health care provider tellsyou to do that. ??? Check your incision [...] or the limit that you are told, untilyour health care provider says that it is [...] day for signs of (more content not included)...[facility] NoteED Patient Education Note Gastroenterology Hernia, Adult A [...] the stomach slides above the muscle that separatesthe abdomen from the chest (diaphragm). What are [...] be treated with surgery to prevent incarceration orstrangulation. Strangulated hernias are always treated with surgery because the strangulation causes a lack of blood supply to the trapped organ or tissue. Surgery to treat a hernia involves pushing the bulge back into place and repairing the weak area ofthe muscle or abdominal wall. Follow these instructions at home: Activity ??? Avoid straining. ??? Do not lift anything that is heavier than 10 lb (4.5 kg), or the limit that you are told, untilyour health care provider says that it is [...] keep your urine pale yellow. ??? Take atcm-tzj-wwfzlhl or prescription medicines. ??? Eat foods that [...] gently pressing on it while lying down. Donot try to force the bulge back in [...] any changes or new symptoms. ??? Take dllc-uld-zdcalog and prescription medicines only as told by [...] pressing on it while lying down. Do nottry to force the (more content not included)...[facility] Discharge instructions Patient Education 04/09/2024 15:53:35 Cervical Radiculopathy, Wvpl-rs-Cplo Cervical Radiculopathy Cervical radiculopathy means that a nerve in the neck (a cervical nerve) is pinched or bruised. This can happen because of an injury to the cervical spine (vertebrae) in the neck, or as a normal partof getting older. This condition can cause pain or loss of feeling (numbness) that runs from your neck all the way down to your arm and fingers. Often, this condition gets better with rest. Treatmentmay be needed if the condition does not [...] and bathing. If you are allowed to takethe collar off for cleaning or bathing: ?Follow [...] any, tell your doctor. Managing pain Take cjyi-uez-nofckdj and prescription medicines only as told by [...] provider. Document Revised: 01/27/2022 Document Reviewed: 01/27/2022 [employer] Patient Education 2023 [employer]. Follow Up Care 04/09/2024 12:51:33 With:Anuradha De La Vega Address: [facility] [address], [place] , [facility] [address] [place] [address]- [facility] [place] (1) When:04/12/2024 15:53:06 Comments:Call to schedule a follow-up appointment with the family physician for further management of care. Use the Percocet as needed for pain management. Take the prednisone as prescribed. Return to the ED with any worsening symptoms. [facility] 09-03-2024 NoteED Patient Education Note Orthopedics Cervical Radiculopathy Cervical radiculopathy means that a nerve in the neck (a cervical nerve) is pinched or bruised. This can happen because of an injury to the cervical spine (vertebrae) in the neck, or as a normal partof getting older. This condition can cause pain or loss of feeling (numbness) that runs from your neck all the way down to your arm and fingers. Often, this condition gets better with rest. Treatmentmay be needed if the condition does not [...] tell your doctor. Managing pain ? Take coyt-oed-cwedcwn and prescription medicines only as told by [...] is very important. If you cannot feel pain,heat, or cold, you have a greater risk [...] or tobacco. If you need help quitting, askyour doctor. ? Keep all follow-up visits. Contact [...] Treatment may include resti (more content not included)...[facility] Discharge instructions Patient Education 04/04/2024 14:43:01 [...] nerve for a long time, such as bysleeping with arms over the back of a [...] nerve palsy or to rule out other causesof your symptoms. How is this treated? Treatment [...] sitting or lying down. General instructions Take bzcx-sxb-iqbzlmh and prescription medicines only as told by [...] provider. Document Revised: 03/29/2023 Document Reviewed: 03/29/2023 [employer] Patient Education 2023 [employer] 04/04/2024 14:43:01 Ganglion Cyst Ganglion Cyst A ganglion cyst is a non-cancerous, fluid-filled lump of tissue that occurs near a joint, tendon, or ligament. The cyst grows out of a joint or the lining of a tendon or ligament. Ganglion cysts mostoften develop in the hand or wrist, but they can also develop in the shoulder, elbow, hip, knee, ankle, or foot. Ganglion cysts are ball-shaped or egg-shaped. Their size can range from the size of a pea to largerthan a grape. Increased activity may cause the [...] with a needle, or hit it. Take ozgf-jca-yonnqys and prescription medicines only as told by [...] provider. Document Revised: 10/14/2020 Document Reviewed: 10/14/2020 [employer] Patient Education 2023 [employer]. Follow Up Care 04/04/2024 12:19:08 With:Peter Gastelum Address: [address] [place] [address] [place] [address] Business (1) When:04/07/2024 14:28:50 [facility] 08-29-2024 NoteED Patient Education Note Radial Nerve Palsy Radial [...] the condition is caused by pressure on thenerve. Using this treatment may allow the nerve [...] or lying down. General instructions ? Take fkyl-fjh-enbicux and prescription medicines only as told by your provider. ? Follow instructions about how to protect your hand and wrist. ? Protect your hand fro (more content not included)...[facility] Evaluation + Plan noteExtracted from: Title:ED Note Author:Nury RUSHING, Reza Simental te:04/04/24 Ganglion cyst of wrist (M67. 439: Ganglion, unspecified wrist) Orders: methocarbamol, 1,500 mg = 2 tab(s), Oral, TID, X 3 day(s), # 18 tab(s), Refills(s) 0, Pharmacy: [facility]/pharmacy #[id number], 177.1, cm, 04/04/24 12:32:00 EDT, Height/Length Dosing, 124.7, kg, 04/04/24 12:32:00 EDT, Weight Dosing naproxen, 500 mg = 1 tab(s), Oral, BID, PRN for pain, # 20 tab(s), Refills(s) 0, Pharmacy: [facility]/pharmacy #[id number], 177.1, cm, 04/04/24 12:32:00 EDT, Height/Length Dosing, 124.7, kg, 04/04/24 12:32:00 EDT, Weight Dosing Splint Application Wrist [facility] 05-17-2024 Miscellaneous Notes* Telephone Encounter - Amrita Montgomery - 12/22/2023 10:37 AM EDT 12/20 received COMP order 12/21 Called PT LM to schedule sleep study. COMP order and 12/20 Chad notes in epic [facility] Telephone encounter Note* Telephone Encounter - Amrita Montgomery - 12/22/2023 10:37 AM EDT 12/20 received COMP order 12/21 Called PT LM to schedule sleep study. COMP order and 12/20 Chad notes in epic [facility] History of Present illness Narrative* Eli Bonilla, DO - 12/21/2023 2:00 PM EDT Images from the original note were not included. [facility] Patient - Devon [...] appears to be an ER visit with [facility] in 2018. Image reports is available and [...] No acute findings. Dr. Eli Bonilla DO. [facility] Office: [phone] documented in this encounterChildren[facility]03-24-2024 NoteMicrobiology PROCEDURE: Blood Culture Charcoal [R1] SOURCE: Blood BODY SITE: Arm L COLLECTED DATE/TIME: 10/21/2023 19:32 EDT RECEIVED DATE/TIME: 10/21/2023 22:32 EDT START DATE/TIME: 10/21/2023 22:32 EDT FREE TEXT SOURCE: Peripheral vein site #2 Martha JOE, Sean Mosqueda. Martha JOE, Sean Mosqueda. FINAL REPORTS Final Report [] Verified Date/Time: 10/29/2023 07:01 EDT No growth at 7 days. Performing Locations R1: [facility] [address] [place] [address], [facility] , , [facility] CenterComment on above:Performed By: #### [id number] ####[facility] [address] [place], [place] [id number] NoteMicrobiology PROCEDURE: Blood Culture Charcoal [R1] SOURCE: [...] Locations R1: This test was performed at: [facility], [address] [place] [address], [id number] , , [facility]qcfikMem[facility] SystemComment on above:Performed By: #### [id number] #### [facility] [address] [place] [address] [id number] NoteEchocardiology Procedure Exam Date/Time Accession # Ordering Dr. Perdomo Transthoracic w/ 10/23/2023 09:26 EDT [id number] Houston PAN MD CPT code 44013 [id number] Reason for Exam (Echo Transthoracic w/ Contrast) Hypertension Report [address] [address] Adult Echocardiogram Report Name: DEVON MATHEW Study Date: 10/23/2023 07:07 AM BP: 135/84 mmHg Patient Location: ^[facility] HR: 86 : 1980 Gender: Male Height: 70 in Age: 43 yrs Ethnicity: T Weight: 248 lb Reason For Study: Hypertension BSA: 2.3 m2 History: HTN, DM, Smoker Ordering Physician: Housotn PAN Referring Physician: Jesus Carias Performed By: [...] Signed by: Houston PAN MD Transcribed by: Santana Technologist: [facility]03-18-2024 Evaluation + Plan noteExtracted from: Title:Discharge Note [...] Daily With When Contact Information MENDY COOK [address] [place] [address]- Business (1) Additional Instructions: HATTIE SHAMMO In 0 days [address] [place] [address] [phone] Business (1) Additional Instructions: Obesity, Adult Managing [...] deep vein thrombosis (DVT) prophylaxis (Z79.899: Other fci (current) drug therapy) Elevated blood pressure reading [...] Panel Extracted from: Title:APSO Note Author:ALEA POWELL, Bandarfo Date: 43-year-old male with histor y of [...] lipid profile and start Lipitor appropriately. Ordered: [facility] Care/Day Moderate 35 Minutes 99795 2. Cough (R05.9: Cough, unspecified) Supportive care. Continue on Tessalon Perles as needed and nebulizer treatments. Ordered: [facility] Care/Day Moderate 35 Minutes 67574 3. Abscess (L02.91: Cutaneous abscess, unspecified) Left axilla and left scapula nondraining abscess. Start patient on doxycycline. Ordered: [facility] Care/Day Moderate 35 Minutes 38575 White Blood Count 4. Leukocytosis (D72.829: Elevated white blood cell count, unspecified) Secondary to above abscess. WBC trending down. Ordered: [facility] Care/Day Moderate 35 Minutes 15142 White Blood Count 5. Hyperglycemia (R73.9: Hyperglycemia, unspecified) Secondary to new onset diabetes mellitus. Started patient on sliding scale insulin. Hemoglobin A1c pending. [facility] Mod[facility] 35 Minutes 10990 6. Hyponatremia (E87.1: Hypo-osmolality and hyponatremia) Secondary [...] uncontrolled. Continue on metoprolol, nifedipine. Seen by nurse staff community health and hydrochlorothiazide and losartan were added. 9. Obese (E66.9: Obesity, unspecified) Recommend therapeutic lifestyle modification changes. 10. Tobacco use (Z72.0: Tobacco use) Recommend cessation. Continue nicotine patch. 11. On deep vein thrombosis (DVT) prophylaxis (Z79.899: Other buttermaker (current) drug therapy) Lovenox. Disposition: Hopefully home in a.m. pending echocardiogram result May require stress test or cardiac cath. I discussed the diagnosis and plan of care with the patient at the bedside. Moderate level of MDM based on addressing above issues. This documentation was transcribed using voice recognition software. Several attempts were made to ensure accuracy. However inadvertent computerized special delivery messenger errors may be present. Delia Ortiz. Hospitalist. [...] deep vein thrombosis (DVT) prophylaxis (Z79.899: Other fci (current) drug therapy) 9. Hyponatremia (E87.1: Hypo-osmolality [...] deep vein thrombosis (DVT) prophylaxis (Z79.899: Other fci (current) drug therapy) SCD, enoxaparin Orders: acetaminophen, [...] Therapy PT & PTT Rapid COVID Antigen ([facility]) Saline Lock Insert Troponin XR Chest Single View [facility]03-18-2024 NoteAdmission and Discharge Information Admit Date/Time:10/21/2023 [...] uncontrolled. Continue on metoprolol, nifedipine. Seen by nurse staff community health and hydrochlorothiazide and losartan were added. Will discharge on losartan 100 mg and hydrochlorothiazide 12.5 daily/continue nifedipine 9. Obese (E66.9: Obesity, unspecified) Recommend therapeutic lifestyle modification changes. 10. Tobacco use (Z72.0: Tobacco use) Recommend cessation. Continue nicotine patch. 11. On deep vein thrombosis (DVT) prophylaxis (Z79.899: Other buttermaker (current) drug therapy) Lovenox. Services Consulted Consult [...] Discharge Diet(s): Low Sodi (more content not included)...[facility] SystemComment on above:Result Comment: Electronically Signed By: BEAR POWELL, Daron\.br\Date and Time Signed: 10/23/23 12:[id number] Hospital Discharge instructions Patient Education 10/23/2023 10:52:08 [...] ?Hypothyroidism. ?Polycystic ovarian syndrome (PCOS). ?Binge-eating disorder. ?Sherwood syndrome. Taking certain medicines, such as steroids, [...] food choices, such as grocery stores and [employer] markets. What are the signs or symptoms? [...] and how much exercise you get. Take zjob-jix-wemlfio and prescription medicines only as told by [...] provider. Document Revised: 03/01/2022 Document Reviewed: 03/01/2022 [employer] Patient Education 2022 [employer]. 10/23/2023 10:52:05 Managing Your Hypertension Managing Your [...] more information National Heart, Lung, and Blood [place]: www.nhlbi.nih.gov [place] [employer]: www.heart.org Contact a health care [...] provider. Document Revised: 04/07/2022 Document Reviewed: 04/07/2022 [employer]ring Patient Education 2022 [employer]. Follow Up Care 10/21/2023 18:37:57 With:HATTIE SHANE Address: [address] [place] [address] When: Unknown With:MENDY COOK Address: [address], [address] [place] [address]- Business (1) When: Unknown [facility]03-16-2024 NoteBasic Information Admit Date/Time:10/21/2023 20:55 Chief [...] Patient states that he initially went to [facility] emergency department about 2 weeks ago and [...] 4.9 E12/L (10/21/23 19:32:00) HGB: 14.3 gm/dL (10/21/23:32:00) Hct: 41.6 % (10/21/23 19:32:00) MCV: 84.7 fL (10/21/23 19:32:00) MCH: 29 pg (10/21/23:32:00) MCHC: 34.3 gm/dL (10/21/23 19:32:00) RDW: 13.7 % (10/21/23 19:32:00) Platelet: 251 E9/L (10/21/23 19:32:00) MPV: 9.5 fL (10/21/23 19:32:00) Neutro Auto: 68.7 % (10/21/23 19:32:00) Lymph Auto: 25.2 % (10/21/23 19:32:00) [place] Auto: 5.2 % (10/21/23 19:32:00) Eos Auto: 0.7 % (10/21/23 19:32:00) Basophil Auto: 0.2 % (10/21/23 19:32:00) Neutro Absolute: 10.9 E9/L High (10/21/23 19:32:00) Lymph Absolute: 4 E9/L (10/21/23 19:32:00) [place] Absolute: 0.8 E9/L (10/21/23 19:32:00) Eos Absolute: 0.1 E9/L (10/21/23 19:32:00) Basophil Absolute: 0 E9/L (10/21/23 19:32:00) PT: 11.4 second(s) (10/21/23 19:10:00) INR: 1.02 (10/21/23:10:00) PTT: 29.4 second(s) (10/21/23:10:00) Glucose Lvl: 417 mg/dL High (10/21/23:32:00) BUN: 17 mg/dL (10/21/23:32:00) Creatinine: 0.9 mg/dL (10/21/23:32:00) eGFR: 109 mL/min/1.73 m2 (10/21/23:32:00) BUN/Creat Ratio: 19 (10/21/23:32:00) Sodium Lvl: 128 mmol/L Low (10/21/23:32:00) Potassium Lvl: 3.8 mmol/L (10/21/23:32:00) Chloride: 97 mmol/L Low (10/21/23:32:00) CO2: 22 mmol/L (10/21/23:32:) AGAP: 13 mEq/L (10/21/23:32:00) Calcium Lvl: 9 mg/dL (10/21/23:32:00) Alk Phos: 75 Int._Unit/L (10/21/23:32:00) ALT: 25 Int._Unit/L (10/21/23:32:00) AST: 15 Int._Unit/L (10/21/23:32:00) Total Protein: 6.6 gm/dL (10/21/23:32:00) Albumin Lvl: 4 gm/dL (10/21/23:32:00) Globulin: 2.6 gm/dL (10/21/23:32:00) A/G Ratio: 1.5 (10/21/23:32:00) Bili Total: 0.5 mg/dL (10/21/23:32:00) Lactic Acid Lvl: 1.4 mmol/L (10/21/23:32:00) Troponin: 46.8 pg/mL High (10/21/23:32:00) BNP: 8 pg/mL (03/16/24 19:10:00) Procalcitonin: 0.06 ng/mL (10/21/23 19:32:00) (more content not included)... [facility] SystemComment on above:Result Comment: Electronically Signed By: Vickie MEANS DO\laura\Date and Time Signed: 10/21/23 22:57 EDT 06-07-2021 [...] Care Everywhere. * URI (Upper Respiratory Infection) (Cook Islander) documented in this encounterRaumfeld Phone: evaluation + Plan note Future Appointments Appointment Date:07/30/2024 12:00:00 PM Scheduled Provider: Location:[facility] Appointment Type:Surgery FT [facility] [place] Evaluation note* Diagnosis Acute upper respiratory infection- Primary Acute upper respiratory infections of unspecified site documented in this encounter [place] Phone: evaluation note* Diagnosis Cough- Primary Shortness of breath Essential hypertension Unspecified essential hypertension documented in this encounter [place] Phone: evaluation note* Diagnosis BLANCA (obstructive sleep apnea)- Primary Obstructive sleep apnea (adult) (pediatric) SOB (shortness of breath) Shortness of breath Chronic cough Cough Centrilobular emphysema (CMS-HCC) Pulmonary nodule Other diseases of lung, not elsewhere classified documented in this encounter [facility] Narrative No data available for this section [facility]* Instructions* Micheal Kwok MD - 06/09/2021 Please continue with your inhalers as advised and prescribed May continue with the Tessalon Perles also as previously prescribed Please have your blood pressure rechecked by your physician at your next office visit * Attachments The following attachments cannot be sent through Care Everywhere. * SOB (Shortness of Breath) ([place] Islander) * Cough ([place] Islander) * Hypertension: General Info ([place]er) documented in this encounterGlobal Pharm Holdings Group Work Phone: Hospital Discharge instructions No data available for this section [facility] [place] InstructionsNot on filedocumented in this encounter [facility]ructionsNot on filedocumented in this encounter [facility] No data available for this section [facility] Discharge Instructions * Discharge Instr - [...] most local grocery stores, pharmacies, and chain [employer]-stores. ? If you have any questions about [...] be sent through Care Everywhere. * Dyspepsia ([place] Islander) * ERCP (Endoscopic Retrograde Cholangiopancreatogram ): Pre-op ([place] Islander) documented in this encounter* Attachments The following attachments cannot be sent through Care Everywhere. * Cholecystectomy: Post-op ([place]er) * Hypertension ([place]er) * Post-op Infection ([place]er) documented in this encounter History of Present Illness * Maria Antonia Galvez RN - 06/07/2019 3:00 PM EDT Can Striper reviewed discharge instructions with patient and girlfriend. Both verbalized understanding. Denies questions. Copy of discharge instructions given to patient. * Miah Ordoñez MSW, LSW - 06/07/2019 10:44 AM EDT Social Work intial Assessment/Discharge Plan Diagnosis: Cholecystitis, acute with cholelithiasis Met with: Patient, Mother and other family & friends. PCP: Rodrick Galdamez DO Payment Source: Medical [place] Advance Directives: None Code Status: Full Mental [...] Plan: No needs. Will return home in [place]. * Amina Borjas RD, LD - 06/07/2019 [...] normal diet for pt is fried foods, solomon islander fries, cheeseburgers, hotdogs. Pt states he eats [...] Fluid Accumulation-No significant fluid accumulation, Extremities 6. Channel Opener Strength-Not measured Recent Labs 06/06/19 1850 06/07/19 0545 NA 136 134* K 4.0 4.3 CL 96* 99 CO2 29 22 BUN 9 9 CREATININE 0.62* 0.61* GLUCOSE 165* 88 ALT 268* 289* ALKPHOS 88 90 GFR Lab Results Component Value Date LABALBU 3.9 06/07/2019 Nutrition Risk Level: Moderate Nutrient Needs: Estimated Daily Total Kcal: 9263-0419 Estimated Daily Protein (g): 90-105 Estimated Daily Total Fluid (ml/day): 2259-7023(25-30) Nutrition Diagnosis: Problem: Altered GI function Etiology: [...] , 7.8% weight gain x 9 months [place] Body Wt: 166 lb (75.3 kg), % [place] Body 122% BMI Classification: BMI 25.0 - [...] Ennis DO - 06/13/2019 2:14 PM EST [facility] 06/13/2019 2:14 PM Name: Devon Mathew : 1980 Age: 39 y.o. male Acct: [id number] Room: [address] [place] [address] Day: 6 Hospital: [facility] Admit Date: 06/07/2019 11:54 PM PCP: Rodrick Galdamez DO Subjective: C/C: Upper right quadrant abdominal pain Interval History: Status: Improved. POD #1 laparoscopic cholecystectomy. Status post ERCP 2 days ago. The results are reported below. Sphincterotomy and balloon sweep of sludge was performed. Patient's amylase and lipase are improved. Patient was released from [facility] 06/06/2019 after hospitalization for upper right [...] edema Data Review: CBC: Recent Labs 06/10/1943 06/11/191 06/12/19446 WBC 9.1 9.6 10.5 HGB 13.0 12.8* 13.2 PLT 208 215 256 BMP: Recent Labs 06/10/1943 06/11/19 0441 06/12/19446 NA 140 140 136 K 3.8 [...] Ennis DO - 06/12/2019 11:05 AM EST [facility] 06/12/2019 11:05 AM Name: Devon Mathew : 1980 Age: 39 y.o. male Acct: [id number] Room: [address] [place] [address] Day: 5 Hospital: [facility] Admit Date: 06/07/2019 11:54 PM [...] 4 PM today. Patient was released from [facility] 06/06/2019 after hospitalization for upper right abdominal discomfort. He was diagnosed with acute cholecystitis/cholelithiasis. Initial plan was for MRCP followed by laparoscopic cholecystectomy however secondary to hardware in his back from previoussurgery (2011) he was discharged to have outpatient [...] Hematology: Recent Labs 06/10/19 0543 06/11/19 0441 06/12/19 0447 WBC 9.1 9.6 10.5 RBC 4.22 [...] 1 0 Chemistry: Recent Labs 06/10/19 0543 06/11/191 06/12/19446 NA [...] prophylaxis 8. Recheck laboratories in the morning Abhishek Walker MD - 06/12/2019 4:18 AM EST General [...] No edema Data Review: CBC: Recent Labs 06/09/1953806/10/1943 06/11/191 WBC 11.5* 9.1 9.6 HGB 13.8 13.0 12.8* PLT 186 208 215 BMP: Recent Labs 06/09/1939 06/10/1943 06/11/19440 NA 136 140 140 K 3.6* 3.8 3.8 CL 101 104 104 CO2 25 24 24 BUN 7 5* 5* CREATININE 0.47* 0.46* 0.46* GLUCOSE 78 88 92 Hepatic: Recent Labs 11/03/53806/10/19542 AST 31 30 ALT 119* 100* ALKPHOS [...] Ennis DO - 06/11/2019 10:13 AM EST [facility] - Progress Note 06/11/2019 10:14 AM Name: Devon Mathew : 1980 Age: 39 y.o. male Acct: [id number] Room: 1014/1014-02 Day: 4 Hospital: [facility] Admit Date: 06/07/2019 11:54 PM PCP: Rodrick Galdamez DO Subjective: C/C: Upper right quadrant abdominal pain Interval History: Status: About the same. Surgical note has been reviewed. The patient will need laparoscopic cholecystectomy. Surgery is discussing with GI timing or need for ERCP. Tentatively is scheduled for 3:30 PM today. Patient was released from [facility] 06/06/2019 after hospitalization for upper right [...] surgery performed here and not back at [facility]. History: From my partners note Devon [...] this encounter. Thank you. Jewel Asif RPH [facility] Service Medications Prior to Admission: ibuprofen [...] Kameron Ennis, - 06/10/2019 12:02 PM EST [facility] - Progress Note 06/10/2019 12:02 PM Name: Devon Mathew : 1980 Age: 39 y.o. male Acct: [id number] Room: [facility]4/1014-02 Day: 3 Hospital: [facility] Admit Date: 06/07/2019 11:54 PM PCP: Rodrick Galdamez DO Subjective: C/C: Upper right quadrant abdominal pain Interval History: Status: not changed. Patient was released from [facility] 06/06/2019 after hospitalization for upper right [...] surgery performed here and not back at [facility]. Surgical consultation has been obtained. Current [...] Status: Full Code Labs: Hematology: Recent Labs 06/07/19174906/09/19 0539 06/10/19 0543 WBC 15.4* 11.5* 9.1 [...] -- 1.1 -- -- Recent Labs 06/07/19 17506/09/19 0539 06/10/19 0543 PROT 7.4 6.0* 6.0* [...] EST [facility] IN-PATIENT SERVICE [facility] Progress Note 06/09/2019 7:37 AM Name: Devon Mathew Acct: [id number] Room: 1014/1014-02 Day: 2 Admit Date: 06/07/2019 11:54 PM [...] 1459 ml Labs: Hematology: Recent Labs 06/06/19 1850 06/07/19 0545 06/07/19 1750 06/09/19 0539 WBC 14.3* 10.1 15.4* 11.5* RBC [...] -- NOT REPORTED -- Recent Labs 06/06/19 18506/07/1945 06/07/19174906/09/19 0539 PROT 8.3 6.7 7.4 6.0* LABALBU 4.9 3.9 4.4 3.6 AST 241* 201* 123* 31 ALT 268* 289* 261* 119* ALKPHOS 88 90 120 109 BILITOT 2.32* 3.38* 5.24* 1.04 AMYLASE -- -- -- 645* LIPASE 14 -- >3,000* 688* TRIG -- -- -- 122 ABG:No results found for: POCPH, PHART, PH, POCPCO2, DXJ2YWB, PCO2, POCPO2, PO2ART, PO2, POCHCO3, KPK4VUI, HCO3, NBEA, PBEA, BEART, BE, THGBART, THB, LDC7VMP, USBG1DOS, S8MVMVAP, O2SAT, FIO2 Lab Results Component Value Date/Time [...] tomorrow Paula Potts MD 06/09/2019 7:37 AM LI * Radha Loaiza, OT - 06/08/2019 12:06 PM EDT Occupational Therapy [facility] Occupational Therapy Not Seen Note [...] FoundDocuments on File Type Date Recorded Patient Medical Lab Technician Expl anation Advance Directives and Living Will Power of Swimming Coach Or Instructor Latest Code Status on File Code Status Date Activated Date Inactivated Comments Full Code 06/06/2019 11:02 PM Full Code 04/25/2013 9:50 PM 04/26/2013 2:03 PM Full Code 04/25/2013 5:52 PM 04/25/2013 9:50 PM Latest Code Status on File Code Status Date Activated Date Inactivated Comments Full Code 06/06/2019 11:02 PM 06/07/2019 5:24 PM Documents on File Type Date Recorded Patient Medical Lab Technician Expl anation Advance Directives and Living Will Power of Swimming Coach Or Instructor Latest Code Status on File Code Status Date Activated Date Inactivated Comments Full Code 06/08/2019 12:09 AM Full Code 06/06/2019 11:02 PM 06/07/2019 5:24 PM Full Code 04/25/2013 9:50 PM 04/26/2013 2:03 PM Full Code 04/25/2013 5:52 PM 04/25/2013 9:50 PM Documents on File Type Date Recorded Patient Medical Lab Technician Expl anation ACP-Advance Directive ACP-Power of Swimming Coach Or Instructor Latest Code Status on File Code Status [...] for this section No Family History Records Found Hospital Course * Kameron Ennis DO - 06/13/2019 2:41 PM EST [facility] IN-PATIENT SERVICE [facility] Discharge Summary Patient ID: Devon Mathew : 1980 ACCOUNT: [id number] Patient's PCP: Rodrick Galdamez DO Admit Date: [...] lipase are improved. Patient was released from [facility] 06/06/2019 after hospitalization for upper right [...] no acute disease Labs: Hematology: Recent Labs 06/11/1944006/12/1944606/13/1931 WBC 9.6 10.5 15.9* RBC 4.20* 4.37 4.75 HGB 12.8* 13.2 14.7 HCT 36.3* 36.8* 40.6* MCV 86.4 84.2 85.5 MCH 30.5 30.2 30.9 MCHC 35.3* 35.9* 36.2* RDW 12.1 11.9 12.2 PLT 215 256 299 MPV 10.6 10.9 10.7 SEGS 62 81* 77* LYMPHOPCT 24 14* 16* MONOPCT 8 5 7 EOSRELPCT 4 0* 0* BASOPCT 1 0 0 Chemistry: Recent Labs 06/11/1944006/12/1944606/13/1931 NA 140 136 138 K 3.8 4.1 3.9 CL 104 101 100 CO2 24 24 26 GLUCOSE 92 164* 119* BUN 5* 9 8 CREATININE 0.46* 0.44* 0.56* MG 1.9 1.9 1.9 ANIONGAP 12 11 12 LABGLOM >60 >60 >60 GFRAA >60 >60 >60 CALCIUM 8.8 9.0 9.3 Recent Labs 06/11/1944006/13/19630 PROT -- 7.1 LABALBU -- 4.3 AST [...] 1 to 2 weeks Rodrick Galdamez DO [address] [facility] [address] Abhishek Vanessa MD [address] [place] [address] In 1 week Requiring Further Evaluation/Follow [...] Your Medications These medications were sent to [facility]/pharmacy #[id number] - [address] - P [phone] - F [phone] [place], [place] [id number] cephALEXin 500 MG capsule You can get [...] Referral Specialty Diagnoses / Procedures Referred By Contac t Referred To Contact Radiology Diagnoses Chronic cough Pulmonary nodule Procedures CT chest without contrast Eli Bonilla, DO [address] [address] Referral ID Status Reason Start Date Expiration Date V isits Requested Visits Authorized [id number] Pending Review 12/21/2023 12/20/2024 1 1 Specialty Diagnoses / Procedures Referred By Contac t Referred To Contact Diagnoses BLANCA (obstructive sleep apnea) Procedures Polysomnography 4 or more parameters with PAP titration Eli Bonilla, DO [address] [address] Referral ID Status Reason Start Date Expiration Date V isits Requested Visits Authorized [id number] Pending Review 12/21/2023 12/20/2024 1 1 Specialty Diagnoses / Procedures Referred By Contac t Referred To Contact Diagnoses BLANCA (obstructive sleep apnea) Procedures PSG Diagnostic Eli Bonilla, DO [address] [address] Referral ID Status Reason Start Date Expiration Date V isits Requested Visits Authorized [id number] Pending Review 12/21/2023 12/20/2024 1 1 Additional Source Comments Reason for Visit (unrecogniz ed section and content) Reason Comments Abdominal Pain Epigastric, onset la st PM. Pt describes as pressure Status Reason Specialty Diagnoses / Procedures Referre d By Contact Referred To Contact Diagnoses Acute cholecystitis Margarito Lopez MD [address] [facility] Reason Comments Abdominal Pain upper abd pain. charlie ent was discharged from hospital around 1500 today. he is scheduled for gallbladder surgery on [place]. he is having increased pain at this time. Status Reason Specialty Diagnoses / Procedures Referre d By Contact Referred To Contact Diagnoses Abdominal pain abdominal pain Paula Potts MD [address] [facility] [address] [place] [address] [facility] Reason Comments Cough cough ongoing for tw o weeks, started to feel sick 06/04 Shortness of Breath Chest Pain Reason Comments Cough x8 days, seen in ER for the same complaint, states it is not getting any better Shortness of Breath states ongoing Reason Comments New Patient CMR: 10/30/2023FT: 10/30/2023 Shortness of Breath Specialty Diagnoses / Procedures Referred By Contac t Referred To Contact Pulmonary Medicine Diagnoses SOB (shortness of breath) Chronic cough Amol Hernandez, FUEL CONVERSION TECHNICIAN-[employer] [address] [place] [address] Felisha Conley MD [address] [place] [address] Referral ID Status Reason Start Date Expiration Date Visits Requested Visits Authorized [id number] Pending Review Specialty Services Required 10/25/2023 10/24/2024 [...] section and content) DATE CREATED AUTHOR 06/14/2019 [facility] DATE CREATED AUTHOR AUTHOR'S ORGANIZ ATION 02/25/2021 [facility] DATE CREATED AUTHOR AUTHOR'S ORGANIZ ATION 06/10/2021 [facility] DATE CREATED AUTHOR AUTHOR'S ORGANIZ ATION 06/26/2021 [facility] DATE CREATED AUTHOR AUTHOR'S ORGANIZ ATION [facility]/01/2023 [facility] DATE CREATED AUTHOR AUTHOR'S ORGANIZ ATION [facility]/24/2023 [facility] DATE CREATED AUTHOR AUTHOR'S ORGANIZ ATION [facility]/10/20[facility] DATE CREATED AUTHOR AUTHOR'S ORGANIZ ATION 07/20/2024 [facility] DATE CREATED AUTHOR AUTHOR'S ORGANIZ ATION 08/02/2024 [facility] DATE CREATED AUTHOR AUTHOR'S ORGANIZ ATION 08/06/2024 [facility] DATE CREATED AUTHOR AUTHOR'S ORGANIZ ATION 08/10/2024 [facility] DATE CREATED AUTHOR AUTHOR'S ORGANIZ ATION 01/22/2025 [facility] Ordered Prescriptions (unrec ognized section and content) [...] team informatio n (unrecognized section and content) Local Company Refrigerated Truck Driver Relationship Specialty Start Date End Date Amol Hernandez APRN-[facility] [address] [place] [address] PCP - [facility] 10/27/23 Local Company Refrigerated Truck Driver Relationship Specialty Start Date End Date Amol Hernandez APRN-[employer] [address] [place] [address] PCP - [facility] 10/27/23 FOR RECORDS PERTAINING TO PATIENTS WHO [...] THE PRIMARY CLINICAL RECORDS. [facility] [employer] [facility]. provides no warranty or guarantee of the accuracy or completeness of information in this document.
--- OUTSIDE RECORDS SUMMARY | 2025-02-16 15:21 | XMS_ITS | Patient Health Record ---
Author Organization [facility] [place] Address [address] [place] [address] Care Team Providers Care Machine Fitter Name Role Phone Boris Justin NP Primary [...] Problem Status W/U Status Risk Notes Problem [id number] Cholelithiasis w ith acute on chronic cholecystitis (K80.12) Active confirmed Plan Of Treatment No Information Insurance Providers Payer Name Payer Address Payer Phone Subscriber Number Group Number Insured Name Patient Relationship to Insured Coverage Start Date Coverage End Date MMO [employer] [address] [place] [address] [id number] Devon Oro Self - patient is the insured 9 Medical (General) History Surgical History Surgery Date(Month/Year) Lap cholecystectomy 06/12/2019
--- OUTSIDE RECORDS SUMMARY | 2025-02-16 15:21 | XMS_ITS | Clinical Summary ---
Author Organization [facility] Address [address] [place] [address] Care Team Providers Care Vamp Cut Out Worker Name Role Phone Unavailable Primary Care Provider Unavailabl e Allergies Active Allergy Reactions Criticality Noted Date Comments Tramadol GI intolerance 02/08/2018 Medications metFORMIN (Glucophage) 500 MG tabletIndications: Type 2 diabetes mellitus with hyperglycemia (HCC) TAKE 2 TABLETS BY MOUTH 2 TIMES PER DAY WITH MEALS 360 tablet 1 5 Active amLODIPine (Norvasc) 10 MG tablet Take 10 mg by mouth Daily Active aspirin 81 MG EC tablet Take 81 mg by mouth in the morning. 4 Active atorvastatin (Lipitor) 40 MG tablet Take 40 mg by mouth in the morning. 4 Active Continuous Glucose Timber Sizer Operator (FreeStyle Adriane 3 [place]) device USE DIRECTED. 4 Active hydrOXYzine pamoate (Vistaril) 25 MG capsule Take 1 capsule by mouth in the morning and 1 capsule in the evening and 1 capsule before bedtime. DURING THE DAY, AND 2 AT BEDTIME ONCE A DAY. 4 Active Lantus SoloStar 100 UNIT/ML pen Inject 25 Units under the skin Active B-D UF III MINI PEN NEEDLES 31G X 5 MM misc Inject 1 each under the skin in the morning and 1 each at noon and 1 each in the evening and 1 each before bedtime. 4 Active losartan-hydroCHLO ROthiazide (Hyzaar) 50-12.5 MG tablet Take 1 tablet by mouth Daily Active metoprolol tartrate (Lopressor) 50 MG tablet Take 50 mg by mouth in the morning and 50 mg before bedtime. Active Continuous Glucose Sensor (FreeStyle Adriane 3 Plus Sensor) miscIndications:Ty pe 2 diabetes mellitus with hyperglycemia, unspecified whether custodial insulin use (HCC) CHANGE SENSOR EVERY 15 DAYS 2 each 5 5 Active Encounters Date Type Department Care Team Description 12/24/2024 Refill [facility] [address] [place] [id number] Mee Egan MD Type 2 diabetes mellitus with hyperglycemia, unspecified whether model home sales greeter insulin use (HCC) from Last 3 Months Immunizations Immunization Administration [...] Plan of Treatment Not on file Insurance [facility]
--- OUTSIDE RECORDS SUMMARY | 2025-02-16 15:21 | XMS_ITS | Clinical Summary ---
Author Organization [facility] 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
[2025-02-16] MEDS: LIDOCAINE HCL 1% 100 MG/10 ML MDV INJ (15:51)
--- NOTE | 2025-02-16 16:22 | ED.GENADUL1 ---
HPI HPI - General Adult General Chief complaint: Skin/Abscess/Foreign Body Stated complaint: PAIN IN BACK Time Seen by Provider: 02/16/25 15:42 Source: patient Mode of arrival: walk-in History of Present Illness HPI narrative: The patient is a 44-year-old male who presents to the emergency department today for evaluation concerns for an abscess to his back. He is here with his , endorses this has been ongoing for the past week endorses he does occasionally get abscesses that need to be drained to his back and face. He endorses he is diabetic and has had some more elevated blood glucoses in this timeframe in the 300s. He states he is on insulin and metformin. No sick symptoms of fever/chills or nausea/vomiting. Related Data Home Medications ?Medication ?Instructions ?Recorded ?Confirmed amlodipine 10 mg tablet 10 mg PO DAILY 12/24/24 01/07/25 insulin glargine 100 unit/mL (3 25 unit subcut QAM 12/24/24 01/07/25 mL) subcutaneous pen (Lantus Solostar U-100 Insulin) insulin lispro 100 unit/mL 1 sliding scale dose subcut AC 12/24/24 01/07/25 subcutaneous pen (Humalog KwikPen (U-100) Insulin) losartan 50 mg-hydrochlorothiazide 1 tab PO DAILY 12/24/24 01/07/25 12.5 mg tablet tizanidine 4 mg tablet 4 mg PO BEDTIME PRN muscle 01/07/25 01/07/25 spasticity Previous Rx's ?Medication ?Instructions ?Recorded albuterol sulfate 2.5 mg/3 mL 2.5 mg (3 mL) inhalation Q6H PRN 10/09/23 (0.083 %) solution for nebulization shortness of breath or wheezing #90 mL albuterol sulfate 90 mcg/actuation 2 inh inhalation Q6H PRN shortness 12/24/24 aerosol inhaler of breath or wheezing #8.5 grams budesonide-formoterol HFA 160 2 inh inhalation BID #10.2 grams 12/24/24 mcg-4.5 mcg/actuation aerosol inhaler (Symbicort) sulfamethoxazole 800 1 tab PO BID 7 days #14 tabs 02/16/25 mg-trimethoprim 160 mg tablet (Bactrim DS) Allergies Allergy/AdvReac Type Severity Reaction Status Date / Time prednisone AdvReac Mild Vomiting Verified 01/07/25 23:01 Opioid HPI Opioid Management Most Recent Opioid Data: Last Pain Scale 8 01/08/25, 01:13 Review of Systems ROS Status of ROS 10 or more systems reviewed and unremarkable except as noted in history and below [facility] Social History Smoking status: Heavy tobacco smoker Little interest or pleasure in doing things: not at all Feeling down, depressed, or hopeless: not at all Exam Narrative Exam Narrative: Constituational: Awake/ alert, no apparent distress, well hydrated HENMT: normocephalic, external ears normal, moist oral mucous membranes and oropharynx normal Eyes: EOMI and conjunctivae normal Neck: ROM intact Chest: inspection of chest normal Respiratory: Normal respiratory effort, clear to auscultation bilaterally Cardio: regular rate and regular rhythm GI: soft to palpation and non-tender Back: nontender, no vertebral tenderness MSK: ROM intact, +NVI Skin: + Area of erythromatosus and fluctuance approximately 5 cm in diameter to mid thoracic paravertebral region, no drainage Neuro: no focal deficits Psych: mental status grossly normal Constitutional Vital Signs, click to edit/add: Last Vital Signs Temp 98.1 F 02/16/25 15:11 Pulse 89 02/16/25 15:11 Resp 16 02/16/25 15:11 BP 140/83 02/16/25 15:11 Pulse Ox 98 02/16/25 15:11 O2 Del Method Room Air 02/16/25 15:11 Course Vital Signs Vital signs: Vital Signs Temperature 98.1 F 02/16/25 15:11 Pulse Rate 89 02/16/25 15:11 Respiratory Rate 16 02/16/25 15:11 Blood Pressure 140/83 02/16/25 15:11 Pulse Oximetry 98 02/16/25 15:11 Oxygen Delivery Method Room Air 02/16/25 15:11 Temperature 98.1 F 02/16/25 15:11 Pulse Rate 89 02/16/25 15:11 Respiratory Rate 16 02/16/25 15:11 Blood Pressure 140/83 02/16/25 15:11 Pulse Oximetry 98 02/16/25 15:11 Oxygen Delivery Method Room Air 02/16/25 15:11 Medical Decision Making MDM Narrative Medical decision making narrative: The patient is a well-appearing 44-year-old male who presented to the emergency department today for evaluation concerns for an abscess to his back. Initial examination patient with clinical evidence consistent with abscess without presence of cellulitis to the mid thoracic region of the back. I&D subsequently performed. See procedure note for details. Discussed these findings with the patient including recommendations for supportive care. Will discharge home with Bactrim. Referrals placed for general surgery for follow-up. Discussed additional considerations for follow-up with dermatology and primary care provider. Discussed signs and symptoms of any worsening condition and when to consider reevaluation by the emergency department. Patient verbalized an understanding of this and is agreeable with the plan to be discharged home. Medical Records Medical records reviewed: Yes I reviewed the patient's medical records Discharge Plan Discharge Chief Complaint: Skin/Abscess/Foreign Body Clinical Impression: Abscess Patient Disposition: Home, Self-Care Prescriptions / Home Meds: New sulfamethoxazole-trimethoprim [Bactrim DS] 800-160 mg tablet 1 tab PO BID 7 Days Qty: 14 0RF No Action tizanidine 4 mg tablet 4 mg PO BEDTIME PRN (Reason: muscle spasticity) albuterol sulfate 2.5 mg /3 mL (0.083 %) solution for nebulization 2.5 mg inhalation Q6H PRN (Reason: shortness of breath or wheezing) Qty: 90 0RF amlodipine 10 mg tablet 10 mg PO DAILY insulin glargine [Lantus Solostar U-100 Insulin] 100 unit/mL (3 mL) insulin pen 25 unit SUBCUT QAM insulin lispro [Humalog KwikPen Insulin] 100 unit/mL insulin pen 1 sliding scale dose SUBCUT AC Rx Instructions: 10 UNITS BEFORE BREAKFAST 12 UNITS BEFORE LUNCH 14 UNITS BEFORE DINNER losartan-hydrochlorothiazide 50-12.5 mg tablet 1 tab PO DAILY budesonide-formoterol [Symbicort] 160-4.5 mcg/actuation HFA aerosol inhaler 2 inh inhalation BID Qty: 10.2 0RF albuterol sulfate 90 mcg/actuation HFA aerosol inhaler 2 inh inhalation Q6H PRN (Reason: shortness of breath or wheezing) Qty: 8.5 2RF Print Language: Tamazight Instructions: Abscess (ED) Additional Instructions: Take antibiotics as prescribed. Recommend applying bandage dressing daily until site is healed. May apply warm compresses to help further facilitate any drainage. May take Tylenol or ibuprofen as needed for any pain. It is important you maintain your blood sugars within normal ranges to help with wound healing. Recommend using benzyl peroxide body wash at least twice a week. Follow-up with your primary care provider for reevaluation as discussed. Consider follow-up with dermatology and general surgery for reevaluation as discussed. May return to the ER with any new or worsening symptoms/concerns. Referrals: Kailash Power MD [Physician, General Surgery] - 1 week Physician,Non-StaffMD [Primary Care Provider] - 1 week Procedures ED ID Incision & Drainage I&D Site: back Side (if applicable): left Anesthetic used: lidocaine 1% Technique: incised with #11 blade Amount of fluid (mL): 10 Irrigation: No (Loculations broken up) Packing used: none Complications: other (No complications, patient tolerated procedure well, wound cultures obtained)
== END 2025-02-16 16:34 | disposition home or self-care (01) ==
PROVIDERS: Emergency Provider Emergency Medicine
DX: L02.212 Cutaneous abscess of back [any part, except buttock and flank] (principal); E11.9 Type 2 diabetes mellitus without complications; Z79.4 Long term (current) use of insulin; Z79.84 Long term (current) use of oral hypoglycemic drugs; F17.200 Nicotine dependence, unspecified, uncomplicated
CPT/HCPCS: 10060; 87070; 87075; 99283

== ENCOUNTER 2025-05-14 14:56 | Emergency (ER) | payer OTHER, SELFPAY ==
[2025-05-14 15:03] VITALS: BP 151/115; PULSE 82; TEMP 36.6; O2SAT 98; BMI 35.2
--- NOTE | 2025-05-14 15:15 | ED.ABDPAIN1 ---
HPI - Abdominal Pain General Chief Complaint: Abdominal Pain Stated Complaint: ABDOMINAL PAIN Time Seen by Provider: 05/14/25 15:01 Source: patient Mode of arrival: walk-in Limitations: no limitations History of Present Illness HPI narrative: 45 year old male presents to the ED for LUQ pain. Onset was upon waking this morning. Denies fever, chills, N/V/D, urinary symptoms, injury. States he had hernia repair 07/30/25. He has hx DM. Related Data Home Medications ?Medication ?Instructions ?Recorded ?Confirmed amlodipine 10 mg tablet 10 mg PO DAILY 12/24/24 05/14/25 insulin glargine 100 unit/mL (3 25 unit subcut QAM 12/24/24 05/14/25 mL) subcutaneous pen (Lantus Solostar U-100 Insulin) insulin lispro 100 unit/mL 1 sliding scale dose subcut AC 12/24/24 05/14/25 subcutaneous pen (Humalog KwikPen (U-100) Insulin) losartan 50 mg-hydrochlorothiazide 1 tab PO DAILY 12/24/24 05/14/25 12.5 mg tablet budesonide 160 mcg-glycopyr 9 2 inh inhalation BID 05/14/25 05/14/25 mcg-formot 4.8 mcg/actuation HFA inhaler (Breztri Aerosphere) doxycycline hyclate 100 mg capsule 100 mg PO Q12H PRN CYSTIC ACNE 05/14/25 05/14/25 metformin 1,000 mg tablet 1,000 mg PO BID 05/14/25 05/14/25 nicotine 21 mg/24 hr daily 1 patch topical Q24H 05/14/25 05/14/25 transdermal patch trazodone 100 mg tablet 100 mg PO BEDTIME 05/14/25 05/14/25 Previous Rx's ?Medication ?Instructions ?Recorded albuterol sulfate 2.5 mg/3 mL 2.5 mg (3 mL) inhalation Q6H PRN 10/09/23 (0.083 %) solution for nebulization shortness of breath or wheezing #90 mL albuterol sulfate 90 mcg/actuation 2 inh inhalation Q6H PRN shortness 12/24/24 aerosol inhaler of breath or wheezing #8.5 grams Allergies Allergy/AdvReac Type Severity Reaction Status Date / Time prednisone AdvReac Mild Vomiting Verified 05/14/25 15:03 Review of Systems ROS Constitutional Denies: fever or chills Cardiovascular Denies: chest pain Respiratory Denies: shortness of breath or cough Gastrointestinal Reports: abdominal pain; Denies: nausea, vomiting or diarrhea Genitourinary Denies: painful urination, urinary frequency, urinary urgency or blood in urine PFSH [facility] Social History Smoking status: Heavy tobacco smoker Little interest or pleasure in doing things: not at all Feeling down, depressed, or hopeless: not at all Exam Constitutional Vital Signs, click to edit/add: Last Vital Signs Temp 98 F 05/14/25 15:03 Pulse 78 05/14/25 16:35 Resp 18 05/14/25 16:35 BP 149/98 H 05/14/25 16:35 Pulse Ox 94 L 05/14/25 16:35 O2 Del Method Room Air 05/14/25 16:35 Common normals: no apparent distress and oriented x3 General appearance: cooperative HENMT Common normals: moist oral mucous membranes Neck & C-Spine Common normals: supple Chest Chest: symmetrical chest wall rise Respiratory Common normals: normal respiratory effort Effort & inspection: able to speak in complete sentences and symmetric chest movement Cardio Common normals: regular rate and regular rhythm GI Common normals: Normal to inspection, nondistended, normoactive bowel sounds present and soft to palpation Palpation: tender Details: LUQ Neuro Common normals: oriented x3 and moves all extremities Sensorium/orientation: awake and alert Speech: speech normal Course Vital Signs Vital signs: Vital Signs Temperature 98 F 05/14/25 15:03 Pulse Rate 82 05/14/25 15:03 Respiratory Rate 16 05/14/25 15:03 Blood Pressure 151/115 H 05/14/25 15:03 Pulse Oximetry 98 05/14/25 15:03 Temperature 98 F 05/14/25 15:03 Pulse Rate 78 05/14/25 16:35 Respiratory Rate 18 05/14/25 16:35 Blood Pressure 149/98 H 05/14/25 16:35 Pulse Oximetry 94 L 05/14/25 16:35 Oxygen Delivery Method Room Air 05/14/25 16:35 MDM - Abdominal Pain MDM Narrative Medical decision making narrative: WBC count was 14.7 which was comparable to previous. Blood sugar was 447, initial lactic acid was 3.3. CT scan was negative for acute findings. Findings were discussed with the patient. Pt reported his blood sugar is typically in the 300s. He was given IV fluids, Zofran, and Morphine with improvement. He was evaluated by the ED attending. He will be discharged home at the recommendation of the ED attending. Follow up with pcp for a recheck, further evaluation and treatment. Return to the ED for worsening symptoms. Differential Diagnosis Differential diagnosis: Likely abdominal pain, gastroenteritis, pancreatitis and small bowel obstruction Medical Records Attestation: I reviewed the patient's medical records. Lab Data Attestation: I reviewed the patient's lab results. Labs: Lab Results 05/14/25 Range/Units 15:30 WBC 14.7 H (4.0-11.0) 10^3/uL RBC 5.00 (4.70-6.10) 10^6/uL Hgb 14.6 (14.0-18.0) g/dL Hct 40.7 L (42.0-54.0) % MCV 81.4 (80.0-94.0) fL MCH 29.2 (25.9-34.0) pg MCHC 35.9 H (29.9-35.2) g/dL RDW 12.9 (11.0-15.0) % Plt Count 274 (150-450) 10^3/uL MPV 11.1 (9.5-13.5) fL Neut % (Auto) 74.6 (43.0-75.0) % Lymph % (Auto) 18.2 L (20.5-60.0) % [place] % (Auto) 3.9 (1.7-12.0) % Eos % (Auto) 2.4 (0.9-7.0) % Baso % (Auto) 0.5 (0.2-2.0) % Neut # (Auto) 11.0 H (1.4-6.5) 10^3/uL Lymph # (Auto) 2.7 (1.2-3.8) 10^3/uL [place] # (Auto) 0.6 (0.3-0.8) 10^3/uL Eos # (Auto) 0.4 (0.0-0.7) 10^3/uL Baso # (Auto) 0.1 (0.0-0.1) 10^3/uL Abs Immat Gran (auto) 0.06 H (0.00-0.03) 10^3/uL Imm/Tot Granulo (auto) 0.4 (0.0-0.5) % Sodium 136 (136-145) mmol/L Potassium 3.7 (3.5-5.1) mmol/L Chloride 98 (98-107) mmol/L Carbon Dioxide 24.4 (21.0-32.0) mmol/L Anion Gap 17.3 BUN 7.0 (7.0-18.0) mg/dL Creatinine 0.77 (0.70-1.30) mg/dL Est GFR ( Amer) >60 (>=60 mL/min/1.73m^2) Est GFR (Non-Af Amer) >60 (>=60 mL/min/1.73m^2) BUN/Creatinine Ratio 9.1 Glucose 447 H (74-106) mg/dL Lactate 3.3 H* (0.4-2.0) mmol/L Calcium 8.9 (8.5-10.1) mg/dL Total Bilirubin 0.3 (0.2-1.0) mg/dL AST 13 L (15-37) U/L ALT 27 (16-63) U/L Alkaline Phosphatase 99 (46-116) U/L Total Protein 7.2 (6.4-8.2) g/dL Albumin 3.5 (3.4-5.0) g/dL Globulin 3.7 g/dL Albumin/Globulin Ratio 0.9 Lipase 16.0 (16.0-77.0) U/L Imaging Data CT scan - abdomen: Attestation: I have reviewed the pertinent imaging results. Radiologist's impression: ITS Impressions Abdomen/Pelvis CT 05/14/25 15:22 IMPRESSION: Negative acute inflammatory process or bowel obstruction. Impression dictated by: Aashish Bonilla M.D. 05/14/2025 4:16 PM Dictation Location: [place] [address] Electronically authenticated by: [id number] Y Date: 05/14/2025 16:16 Discharge Plan Discharge Chief Complaint: Abdominal Pain Clinical Impression: Abdominal pain Patient Disposition: Home, Self-Care Condition: Good Mode of Transportation: Private Vehicle Prescriptions / Home Meds: No Action albuterol sulfate 2.5 mg /3 mL (0.083 %) solution for nebulization 2.5 mg inhalation Q6H PRN (Reason: shortness of breath or wheezing) Qty: 90 0RF amlodipine 10 mg tablet 10 mg PO DAILY insulin glargine [Lantus Solostar U-100 Insulin] 100 unit/mL (3 mL) insulin pen 25 unit SUBCUT QAM insulin lispro [Humalog KwikPen Insulin] 100 unit/mL insulin pen 1 sliding scale dose SUBCUT AC Rx Instructions: 10 UNITS BEFORE BREAKFAST 12 UNITS BEFORE LUNCH 14 UNITS BEFORE DINNER losartan-hydrochlorothiazide 50-12.5 mg tablet 1 tab PO DAILY albuterol sulfate 90 mcg/actuation HFA aerosol inhaler 2 inh inhalation Q6H PRN (Reason: shortness of breath or wheezing) Qty: 8.5 2RF doxycycline hyclate 100 mg capsule 100 mg PO Q12H PRN (Reason: CYSTIC ACNE) metformin 1,000 mg tablet 1,000 mg PO BID nicotine 21 mg/24 hr patch 24 hour 1 patch topical Q24H trazodone 100 mg tablet 100 mg PO BEDTIME Breztri Aerosphere 160-9-4.8 mcg/actuation HFA aerosol inhaler 2 inh inhalation BID Print Language: Fijian Instructions: Abdominal Pain (ED) Additional Instructions: Return to the ED for worsening symptoms. Referrals: [facility] REHABILITATION THERAPY TECHNICIAN [Primary Care Provider] - 1 week
--- NOTE | 2025-05-14 15:22 | CT_ITS ---
The [address] [address] Patient Name: SHIRLEY MATHEW MRN: [id number] date: 1980 Sex: M Assigned Patient Location: ER Current Patient Location: ER Accession/Order Number: [id number] Exam Date: 05/14/2025 15:43 Report Date: 05/14/2025 16:16 At the request of: TILA MOLINA Procedure: CT abdomen pelvis w con CT ABDOMEN AND PELVIS WITH INTRAVENOUS CONTRAST: CLINICAL HISTORY: LUQ pain COMPARISON: 01/07/2025 TECHNIQUE: Spiral images were obtained through the abdomen and pelvis following the administration of intravenous contrast. This CT exam was performed using one or more following dose reduction techniques: Automated exposure control, adjustment of the mA and/or kV according to patient size, or use of iterative reconstruction technique. FINDINGS: Lung Bases: [Mild lingular atelectasis. Organs:Fatty liver. Cholecystectomy. Left-sided renal calculi, nonobstructive. No hydronephrosis. Otherwise spleen, adrenals, pancreas unremarkable. GI: Mild to moderate retained stool throughout the colon. No evidence of bowel obstruction. Post surgical changes along the cecum. No pericecal inflammatory change. Pelvis:[Mild bladder distention. Prostate is unremarkable.] Peritoneum/Retroperitoneum:No free air or free fluid. Evidence of prior ventral abdominal wall herniorrhaphy with mesh. Mild plaque involving the nonaneurysmal aorta.[ Abd wall/Bones:No free air or fluid. Postsurgical changes lower lumbar spine from prior discectomy and posterior fusion.[. Radiopaque marker at site of concern noted. No focal abnormality identified at site of the radiopaque marker. CT/CT abdomen pelvis w con IMPRESSION: Negative acute inflammatory process or bowel obstruction. Impression dictated by: Aashish Bonilla M.D. 05/14/2025 4:16 PM Dictation Location: [place] [address] Electronically authenticated by: [id number] Y Date: 05/14/2025 16:16
[2025-05-14 15:45] LABS: Hematocrit 40.7 % (42.0-54.0); Hemoglobin 14.6 g/dL (14.0-18.0); Immature Granulocytes Abs Auto 0.06 10^3/uL (0.00-0.03); Immature Granulocytes Pct Auto 0.4 % (0.0-0.5); Lymphocytes Absolute Auto 2.7 10^3/uL (1.2-3.8); Mean Corpuscular HGB Conc 35.9 g/dL (29.9-35.2); Mean Corpuscular Hemoglobin 29.2 pg (25.9-34.0); Mean Corpuscular Volume 81.4 fL (80.0-94.0); Platelet Count 274 10^3/uL (150-450); Red Blood Count 5.00 10^6/uL (4.70-6.10); White Blood Count 14.7 10^3/uL (4.0-11.0)
[2025-05-14 15:59] LABS: Alanine Aminotransferase 27 U/L (16-63); Albumin Globulin Ratio 0.9; Albumin Level 3.5 g/dL (3.4-5.0); Alkaline Phosphatase 99 U/L (46-116); Anion Gap 17.3; Aspartate Amino Transferase 13 U/L (15-37); Blood Urea Nitrogen 7.0 mg/dL (7.0-18.0); Calcium 8.9 mg/dL (8.5-10.1); Carbon Dioxide 24.4 mmol/L (21.0-32.0); Chloride 98 mmol/L (98-107); Estimated GFR (African America >60 (>=60 mL/min/1.73m^2); Estimated GFR (Non-African Ame >60 (>=60 mL/min/1.73m^2); Globulin 3.7 g/dL; Glucose 447 mg/dL (74-106); Lipase 16.0 U/L (16.0-77.0); Potassium 3.7 mmol/L (3.5-5.1); Sodium 136 mmol/L (136-145); Total Protein 7.2 g/dL (6.4-8.2)
[2025-05-14] MEDS: MORPHINE SULFATE 4 MG/ML VIAL IV (16:03)
[2025-05-14 16:10] LABS: Lactate/Lactic Acid 3.3 mmol/L (0.4-2.0)
[2025-05-14] MEDS: 0.9 % SODIUM CHLORIDE 1,000 ML 1000 ML IV (16:19)
[2025-05-14 16:35] VITALS: BP 149/98; PULSE 78; O2SAT 94
== END 2025-05-14 17:29 | disposition home or self-care (01) ==
PROVIDERS: Nurse Practitioner Family; Emergency Provider Student in an Organized Health Care Education/Training Program; PCP Nurse Practitioner Family
DX: R10.12 Left upper quadrant pain (principal); E11.9 Type 2 diabetes mellitus without complications; Z79.4 Long term (current) use of insulin; Z79.84 Long term (current) use of oral hypoglycemic drugs; F17.200 Nicotine dependence, unspecified, uncomplicated
CPT/HCPCS: 36415; 74177; 80053; 83605; 83690; 85025; 96374; 96375; 99285; J2270; J2405; Q9967

== ENCOUNTER 2025-06-16 12:57 | Outpatient (RCR) | payer OTHER, SELFPAY | END 2025-07-25 23:00 | disposition home or self-care (01) | LOC: PT 12:57 | PROVIDERS: PCP Nurse Practitioner Family; Visit Provider Nurse Practitioner Family | DX: M54.9 Dorsalgia, unspecified (principal) | CPT/HCPCS: 97014; 97110; 97112; 97163 ==